=== PATIENT | male | born 1955 | race Caucasian/White ===

== ENCOUNTER 2017-09-05 12:27 | Inpatient (IN) | payer MEDICARE, MEDICAID ==
--- NOTE | 2017-09-05 12:35 | ED Physician Chart ---
ED Chief Complaint/HPI - Patient Information Date Seen:: 09/05/17 Time Seen:: 12:34 Chief Complaint:: ALOC, failure to thrive History of Present Illness:: 62 yo male was brought from SNF to ER for evaluation of altered mental status during past 3 days. He remained drowsy and lethargic. The patient had history of seizure disorder. Due to missing dose of Keppra, patient had 12 episodes of short lasting seizures during past 24 hours. The vagus nerve stimulator placed on the left chest of the patient has been effective stopping seizures. The patient also complained abdominal pain with decreased PO intake. Allergies:: Allergies Allergy/AdvReac Type Severity Reaction Status Date / Time divalproex sodium Allergy Verified 06/12/17 17:50 [From Depakote] fluoxetine Allergy Verified 06/12/17 13:01 magnesium hydroxide Allergy Verified 06/12/17 13:00 [From Milk of Magnesia] metoclopramide Allergy Verified 06/12/17 13:00 ondansetron Allergy Verified 06/12/17 13:01 ED Review of Systems - Review of Systems General/Constitutional: No fever, No chills Skin: No rash Head: No headache Eyes: No pain ENT: No nasal drainage Neck: Stiffness (Neck contracture towards left) Cardio Vascular: No chest pain Pulmonary: No cough GI: Pain Musculoskeletal: No bone or joint pain Psychiatric: Depression Neurological: Weakness ED Past Medical History - Past Medical History Past Medical History: Seizures, Thyroid disorder (hypothyroidism, gastritis, testicular hypofunction, glaucoma), Other (Severe intellectural disability, gastritis, dystonia anterocollis) Social History: Non Smoker, No Alcohol, No Drug Use Surgical History: other (VNS stimulator) Psychiatricy History: Depression, Other (Impulse control diorder) Family Medical History - Family Member Mother History Unknown: Yes Ethnicity: Non- ED Physical Exam - Physical Examination Other Gen/Cons comments:: lethargic Eyes: PERRL Skin: No ecchymosis ENMT: Nasal exam nl Other Neck comments:: Neck contracture towards left Respiratory: No Wheeze/Rhonchi/Rales Cardio Vascular: RRR, No murmur, gallop, rubs, NL S1 S2 GI: No organomegaly Other Extremities comments:: Stiffness of bilateral lower extremities Other Neuro/Psych comments:: Hard to wake up patient ED Labs/Radiology/EKG Results - Radiology Results Results: CT head: no acute intracranial pathology CT abdomen: fecal impaction ED Assessment - Assessment General Assessment: ALOC Seizures VNS device Abdominal pain Fecal impaction, patient had 2 large bowel movements with copious flatus in the ER UTI Assessment/Comments:: CBC, CMP, CXR, EKG, UA CT head CT abdomen/pelvis Keppra level Lamitrogen level Dilantin level NS 1L IV bolus Fleet enema x 1 Admit to med surg ED Septic Shock - . Is Septic Shock (SBP<90, OR Lactate>4 mmol\L) present?: No ED Reassessment (Disposition) - Reassessment Reassessment Condition:: Improved - Patient Disposition Discharge/Transfer:: Acute Care w/in this hosp Admitting Medical Physician:: Zack Rick ED Discharge Plan - Patient Disposition Admit/Discharge/Transfer: Acute Care w/in this hosp
[2017-09-05 13:33] LABS: ALB/GLOB RATIO 1.5 (1.0-1.8); ALBUMIN 3.9 gm/dL (4.2-5.5); ALKALINE PHOSPHATASE 95 U/L (34-104); ANION GAP 9.8 (7.0-16.0); BILIRUBIN,TOTAL 0.5 mg/dL (0.3-1.0); BUN - UREA NITROGEN 12 mg/dL (7-25); CALCIUM SERUM 9.4 mg/dL (8.6-10.3); CARBON DIOXIDE 23.8 mEq/L (21.0-31.0); CHLORIDE 105 mEq/L (98-107); CREATININE - SERUM 0.6 mg/dL (0.7-1.3); GFR AFRICAN-AMERICAN > 60.0 ml/min (>90); GFR NON AFRICAN-AMERICAN > 60.0 ml/min; GLUCOSE 87 mg/dL (70-105); POTASSIUM SERUM 3.6 mEq/L (3.5-5.1); SGOT 15 U/L (13-39); SGPT/ALT 15 U/L (7-52); SODIUM SERUM 135 mEq/L (136-145); TOTAL PROTEIN,SERUM 6.5 gm/dL (6.0-8.3)
[2017-09-05 13:34] LABS: % LYMPHOCYTES 15.1 % (20.0-50.0); % NEUTROPHILS 71.9 % (40.0-80.0); EOSINOPHILE ABSOLUTE 0.2 Th/cmm (0.1-0.4); HEMATOCRIT 41.8 % (41.0-60); HEMOGLOBIN 14.2 gm/dL (12-16); LYMPHOCYTE ABSOLUTE 1.8 Th/cmm (1.5-3.0); MEAN CELL VOLUME 96.4 fl (80-99); MEAN CORPUSCULAR HEMOGLOBIN 32.7 pg (26.0-30.0); MEAN CORPUSCULAR HGB CONC 33.9 pg (28.0-36.0); MEAN PLATELET VOLUME 7.1 fl; MONOCYTE ABSOLUTE 1.3 Th/cmm (0.3-1.0); NEUTROPHILE ABSOLUTE 8.3 Th/cmm (1.8-8.0); PLATELET COUNT 305 Th/cmm (150-400); RED BLOOD COUNT 4.34 Mil/cmm (4.30-5.70); WHITE BLOOD COUNT 11.6 Th/cmm (4.8-10.8)
--- NOTE | 2017-09-05 14:21 | Diagnostic Imaging Report ---
Portable chest x-ray HISTORY: Shortness of breath The exam is extremely limited as the patient is rotated in the left chest obscured by the patient's overlying head and neck. The overall heart size cannot be well evaluated. The right lung is clear. Old right rib fractures noted unchanged dating back to June 12, 2017. IMPRESSION: 1. Nondiagnostic exam of the left chest due to the factors noted above 2. Old right rib fractures
[2017-09-05 14:35] LABS: URINE MICROSCOPIC INDICATED? YES; URINE SOURCE RANDOM
[2017-09-05 14:36] LABS: URINE BILIRUBIN NEGATIVE (NEGATIVE); URINE BLOOD NEGATIVE (NEGATIVE); URINE GLUCOSE (UA) NEGATIVE (NEGATIVE); URINE KETONE NEGATIVE (NEGATIVE); URINE LEUKOCYTE ESTERASE TRACE (NEGATIVE); URINE NITRATE NEGATIVE (NEGATIVE); URINE PH 6.5 (4.6 - 8.0); URINE PROTEIN NEGATIVE (NEGATIVE); URINE UROBILINOGEN 0.2 E.U./dL (0.2 - 1.0)
[2017-09-05] MEDS ORDERED: Sodium Chloride 0.9% 1,000 ML IV ONE (14:38)
[2017-09-05] MEDS ORDERED: Levofloxacin 500mg/100mL 500 MG/100 ML BAG IV ONE (15:39)
[2017-09-05 15:41] LABS: URINE CLARITY CLEAR (CLEAR); URINE COLOR YELLOW
[2017-09-05 15:42] LABS: URINE BACTERIA FEW /hpf (NONE SEEN); URINE EPITHELIAL CELLS OCCASIONAL /lpf (FEW); URINE RBC 0-2 /hpf (0-5)
[2017-09-05] MEDS ORDERED: Fleet Enema 135 mL RC ONE (16:37)
[2017-09-05] MEDS ORDERED: Guaifenesin DM 10 ML UDC PO PRN (17:57)
[2017-09-05] MEDS ORDERED: LEVALBUTEROL HCL 1.25 MG IH PRN (17:57)
[2017-09-05] MEDS ORDERED: Fleet Enema 135 mL RC PRN (17:57)
[2017-09-05] MEDS ORDERED: LOPERAMIDE HCL 2 MG PO PRN (17:57)
[2017-09-05] MEDS ORDERED: OXYGEN INH PRN (18:22)
[2017-09-05] MEDS: Albuterol Nebulizer 2.5mg/3mL HHN SCH (19:00)
[2017-09-05] MEDS: Ipratropium Neb 0.5 mg/2.5 mL UD IH SCH (19:00)
--- NOTE | 2017-09-05 19:33 | History & Physical ---
ADMIT DATE: 09/05/2017 CHIEF COMPLAINT: Not eating, not taking medication, not doing too well per the nursing staff. HISTORY OF PRESENT ILLNESS: This is a 62-year-old male with history of mental retardation, developmentally delay, cerebral palsy, seizure, generalized contractures, bedridden with recent diagnosis of urinary tract infection with multi-drug resistant organism. The patient received 1 week worth of Cipro, then culture came back multi-drug resistant, and antibiotic was changed to IV Rocephin, but the patient's condition has not improved. PAST MEDICAL HISTORY: As mentioned in history of present illness. PAST SURGICAL HISTORY: Unable to obtain at this time. ALLERGIES: BUSPAR, DEPAKOTE, FLUOXETINE, MAGNESIUM, REGLAN, ZOFRAN. MEDICATIONS: The patient is on miconazole, multivitamin, oxygen, pantoprazole, petroleum jelly, Seroquel, rifaximin, simethicone, tamsulosin, alendronate, biotin, IV Rocephin, calcium, chlorhexidine, Lamictal, methotrexate, loratadine, bisacodyl, quetiapine, clonazepam, folic acid, guaifenesin, ibuprofen. FAMILY HISTORY: Noncontributory. SOCIAL HISTORY: The patient is in a halfway. The patient is requiring 24-hour care. REVIEW OF SYSTEMS: This is limited secondary to the patient's current mental state. We will try to obtain more detailed review of systems at a later date by talking to family members. There is an uncle, Bertrand Lam from [place], number is [phone]. Also try to get information from nursing staff, [facility], number [phone]. PHYSICAL EXAMINATION: VITAL SIGNS: Blood pressure 119/68, respirations 14, pulse 77, temperature 98.2. GENERAL: Elderly male, appears chronically ill. Positive general contracture, hyperextended. LUNGS: Clear breath sounds, few rhonchi. HEART: Regular rate and rhythm without appreciable murmurs. ABDOMEN: Soft, globular. EXTREMITIES: Positive excoriations. NEUROLOGIC: Limited. LABORATORY DATA: WBC 11.6, hemoglobin 14, platelets was 305. Sodium 135, potassium 3.6, BUN 12, creatinine 0.6, albumin 3.9. UA showed 10 wbc. Dilantin less than 2.5. ASSESSMENT AND PLAN: 1. Failure to thrive. 2. Urinary tract infection. 3. Dehydration. 4. Mental retardation. 5. Cerebral palsy. 6. Leukocytosis. 7. Hyponatremia. 8. Low albumin/mild protein calorie malnutrition. 9. Seizure. 10. Generalized contractures. We will continue the patient on aggressive IV hydration. We will refer the patient to Psychiatry to adjust the patient's psychotropic medication. Continue antiepileptic medications. We will review the patient's urine culture and sensitivity. We will monitor the patient's overall function. Continue with current care with followup consult and recommendations. [facility]# [id number]
[2017-09-05] MEDS ORDERED: LAMOTRIGINE 150 MG PO SCH (21:00)
[2017-09-05] MEDS: D5-0.9%NS 1,000 ML IV SCH (21:56)
[2017-09-05] MEDS: Pantoprazole 40 mg EC Tab PO SCH (21:57)
[2017-09-05] MEDS: Lactulose 10 Gm/15 mL 30mL UDC PO SCH (21:57)
[2017-09-05 23:59] VITALS: BP 151/82
[2017-09-06 06:44] LABS: % BASOPHILS 0.1 % (0.0-2.0); % EOSINOPHILS 5.4 % (0.0-5.0); % LYMPHOCYTES 20.2 % (20.0-50.0); % MONOCYTES 9.8 % (2.0-10.0); % NEUTROPHILS 64.5 % (40.0-80.0); EOSINOPHILE ABSOLUTE 0.3 Th/cmm (0.1-0.4); HEMATOCRIT 41.6 % (41.0-60); HEMOGLOBIN 13.9 gm/dL (12-16); LYMPHOCYTE ABSOLUTE 1.3 Th/cmm (1.5-3.0); MEAN CELL VOLUME 97.2 fl (80-99); MEAN CORPUSCULAR HEMOGLOBIN 32.3 pg (26.0-30.0); MEAN CORPUSCULAR HGB CONC 33.3 pg (28.0-36.0); MEAN PLATELET VOLUME 6.9 fl; MONOCYTE ABSOLUTE 0.6 Th/cmm (0.3-1.0); NEUTROPHILE ABSOLUTE 4.1 Th/cmm (1.8-8.0); PLATELET COUNT 280 Th/cmm (150-400); RED BLOOD COUNT 4.28 Mil/cmm (4.30-5.70); RED CELL DISTRIBUTION WIDTH 14.2 % (11.5-20.0)
[2017-09-06 06:52] LABS: WHITE BLOOD COUNT 6.3 Th/cmm (4.8-10.8)
[2017-09-06] MEDS: Ipratropium Neb 0.5 mg/2.5 mL UD IH SCH ×4 (07:00→19:07)
[2017-09-06] MEDS: Albuterol Nebulizer 2.5mg/3mL HHN SCH ×4 (07:00→19:07)
[2017-09-06 07:11] LABS: ANION GAP 7.6 (7.0-16.0); BUN - UREA NITROGEN 8 mg/dL (7-25); CARBON DIOXIDE 25.2 mEq/L (21.0-31.0); CHLORIDE 108 mEq/L (98-107); CREATININE - SERUM 0.6 mg/dL (0.7-1.3); GFR AFRICAN-AMERICAN > 60.0 ml/min (>90); GFR NON AFRICAN-AMERICAN > 60.0 ml/min; GLUCOSE 85 mg/dL (70-105); POTASSIUM SERUM 3.8 mEq/L (3.5-5.1); SODIUM SERUM 137 mEq/L (136-145)
[2017-09-06] MEDS ORDERED: Levothyroxine 0.125 Mg Tab PO SCH (07:30)
--- NOTE | 2017-09-06 08:23 | Diagnostic Imaging Report ---
CT scan abdomen and pelvis without intravenous contrast HISTORY: Pain Total DLP equals 899 CTDI equals 15.3. If axial sections were obtained from the xiphoid process down to the pubic symphysis. The exam is limited due to difficulty in patient positioning.. The exam demonstrates a distended stool-filled rectum and lower sigmoid colon associated with rather marked generalized colonic dilatation. Findings suggest changes of a fecal impaction. The liver appears somewhat diminished in size. No focal parenchymal lesions. The spleen appears normal. No focal abnormalities seen within the pancreas. The right kidney appears normal. The left kidney is atrophic associated with cystic change. No hydronephrosis. The remainder of the pelvis demonstrates preservation of normal fat planes. No abnormal soft tissue masses or abnormal fluid collections. Urinary bladder exhibits a distorted contour and is displaced into the left lower anterior pelvis. Severe degenerative changes noted throughout the spine along with multiple compression fractures. IMPRESSION: 1. Limited exam 2. Distended stool-filled rectum and lower sigmoid colon associated with marked colonic dilatation. Findings are consistent with changes of a fecal impaction. 3. Atrophic left kidney 4. Distorted contour of the urinary bladder that is displaced into the left lower anterior pelvis 5. Multiple spinal compression fractures
--- NOTE | 2017-09-06 08:24 | Diagnostic Imaging Report ---
CT scan of the brain without intravenous contrast HISTORY: Stroke, CVA Total DLP equals 1531 CTDI equals 63.1 Axial sections were obtained from the base of the skull the vertex. The exam is extremely limited due to difficulty in patient positioning and marked artifact related to metallic dental fillings. There appears to be generalized increase in overall ventricular system size. No obvious parenchymal abnormalities are seen. No obvious intracerebral hemorrhage. No mass effect or shift of midline structures. No obvious extra-axial masses or abnormal fluid collections. IMPRESSION: 1. Extremely limited exam 2. No obvious acute abnormalities 3. Findings consistent with cerebral atrophy and chronic changes
[2017-09-06] MEDS ORDERED: Ipratropium Neb 0.5 mg/2.5 mL UD HHN SCH (09:00)
[2017-09-06] MEDS ORDERED: Non-Formulary Item 1 EA (Lactobacillus Acidophilus [Acidophilus] 1 EACH) PO SCH (09:00)
[2017-09-06] MEDS ORDERED: CLOBAZAM 20 MG PO SCH (09:00)
[2017-09-06] MEDS ORDERED: FLUTICASONE PROPIONATE IH SCH (09:00)
[2017-09-06] MEDS ORDERED: Non-Formulary Item 1 EA (Lamotrigine [Lamotrigine] 200 MG) PO SCH (09:00)
[2017-09-06] MEDS ORDERED: MICONAZOLE NITRATE 2% TP SCH (09:00)
[2017-09-06] MEDS: Lactulose 10 Gm/15 mL 30mL UDC PO SCH ×3 (09:24→21:22)
[2017-09-06] MEDS: POLYETHYLENE GLYCOL 3350 17 GM PACK PO SCH (09:24)
[2017-09-06] MEDS ORDERED: Influenza Vaccine 0.5 mL Syr IM ONE (11:00)
[2017-09-06] MEDS ORDERED: Pneumococcal Vaccine 0.5 mL Vial IM ONE (11:00)
[2017-09-06] MEDS: D5-0.9%NS 1,000 ML IV SCH (11:24)
[2017-09-06] MEDS ORDERED: CLOBAZAM PO SCH (14:17)
--- NOTE | 2017-09-06 15:08 | Internal Medicine Prog Note ---
Internal Medicine Subjective - Subjective Patient seen and examined:: with staff, chart reviewed Patient is:: asleep, non-verbal, non-interactive, eyes closed, in bed, stares blankly Patient Complaints of:: congestion, constipation Per staff patient has:: no adverse event, poor appetite, poor oral intake, agitated, refusing care Internal Medicine Objective - Results Result Diagrams: 09/06/17 06:24 09/06/17 06:24 Recent Labs: Laboratory Last Values WBC 6.3 Th/cmm (4.8-10.8) D 09/06/17 06:24 RBC 4.28 Mil/cmm (4.30-5.70) L 09/06/17 06:24 Hgb 13.9 gm/dL (12-16) 09/06/17 06:24 Hct 41.6 % (41.0-60) 09/06/17 06:24 MCV 97.2 fl (80-99) 09/06/17 06:24 MCH 32.3 pg (26.0-30.0) H 09/06/17 06:24 MCHC Differential 33.3 pg (28.0-36.0) 09/06/17 06:24 RDW 14.2 % (11.5-20.0) 09/06/17 06:24 Plt Count 280 Th/cmm (150-400) 09/06/17 06:24 MPV 6.9 fl 09/06/17 06:24 Neutrophils % 64.5 % (40.0-80.0) 09/06/17 06:24 Lymphocytes % 20.2 % (20.0-50.0) 09/06/17 06:24 Monocytes % 9.8 % (2.0-10.0) 09/06/17 06:24 Eosinophils % 5.4 % (0.0-5.0) H 09/06/17 06:24 Basophils % 0.1 % (0.0-2.0) 09/06/17 06:24 Sodium 137 mEq/L (136-145) 09/06/17 06:24 Potassium 3.8 mEq/L (3.5-5.1) 09/06/17 06:24 Chloride 108 mEq/L (98-107) H 09/06/17 06:24 Carbon Dioxide 25.2 mEq/L (21.0-31.0) 09/06/17 06:24 Anion Gap 7.6 (7.0-16.0) 09/06/17 06:24 BUN 8 mg/dL (7-25) 09/06/17 06:24 Creatinine 0.6 mg/dL (0.7-1.3) L 09/06/17 06:24 Est GFR ( Amer) > 60.0 ml/min (>90) 09/06/17 06:24 Est GFR (Non-Af Amer) > 60.0 ml/min 09/06/17 06:24 BUN/Creatinine Ratio 13.3 09/06/17 06:24 Glucose 85 mg/dL (70-105) 09/06/17 06:24 POC Glucose 84 MG/DL (70 - 105) 09/05/17 22:34 Calcium 9.0 mg/dL (8.6-10.3) 09/06/17 06:24 Total Bilirubin 0.5 mg/dL (0.3-1.0) 09/05/17 13:05 AST 15 U/L (13-39) 09/05/17 13:05 ALT 15 U/L (7-52) 09/05/17 13:05 Alkaline Phosphatase 95 U/L (34-104) 09/05/17 13:05 Ammonia 60 umol/L (16-53) H 09/06/17 06:24 Troponin I < 0.01 ng/mL (0.01-0.05) L 09/05/17 13:05 B-Natriuretic Peptide 33.7 pg/mL (5.0-100.0) 09/05/17 13:05 Total Protein 6.5 gm/dL (6.0-8.3) 09/05/17 13:05 Albumin 3.9 gm/dL (4.2-5.5) L 09/05/17 13:05 Globulin 2.6 gm/dL 09/05/17 13:05 Albumin/Globulin Ratio 1.5 (1.0-1.8) 09/05/17 13:05 TSH 2.03 uIU/ml (0.34-5.60) 09/05/17 13:05 Urine Source RANDOM 09/05/17 12:36 Urine Color YELLOW 09/05/17 12:36 Urine Clarity CLEAR (CLEAR) 09/05/17 12:36 Urine pH 6.5 (4.6 - 8.0) 09/05/17 12:36 Ur Specific [place] 1.015 (1.005-1.030) 09/05/17 12:36 Urine Protein NEGATIVE mg/dL (NEGATIVE) 09/05/17 12:36 Urine Glucose (UA) NEGATIVE mg/dL (NEGATIVE) 09/05/17 12:36 Urine Ketones NEGATIVE mg/dL (NEGATIVE) 09/05/17 12:36 Urine Blood NEGATIVE (NEGATIVE) 09/05/17 12:36 Urine Nitrate NEGATIVE (NEGATIVE) 09/05/17 12:36 Urine Bilirubin NEGATIVE (NEGATIVE) 09/05/17 12:36 Urine Urobilinogen 0.2 E.U./dL (0.2 - 1.0) 09/05/17 12:36 Ur Leukocyte Esterase TRACE (NEGATIVE) H 09/05/17 12:36 Urine RBC 0-2 /hpf (0-5) H 09/05/17 12:36 Urine WBC 6-10 /hpf (0-5) 09/05/17 12:36 Ur Epithelial Cells OCCASIONAL /lpf (FEW) 09/05/17 12:36 Urine Bacteria FEW /hpf (NONE SEEN) 09/05/17 12:36 Phenytoin < 2.5 ug/ml (10.0-20.0) L 09/05/17 13:05 - Physical Exam Vitals and I&O: Vital Signs Temp 97.6 F 09/06/17 09:00 Pulse 63 09/06/17 10:47 Resp 18 09/06/17 10:47 BP 136/74 09/06/17 09:00 Pulse Ox 94 09/06/17 10:47 Intake & Output 09/05/17 09/06/17 09/06/17 18:59 06:59 18:59 Intake Total 100 1100 Balance 100 1100 Weight (lbs) 76.476 kg Intake: Intake, IV Amount 100 1100 D5-0.9%Ns 1,000 ml @ 80 1000 mls/hr IV .[id number] [facility] Rx #:[id number] Piperacillin Sodium/ 100 100 Tazobact 4.5 gm In Sodium Chloride 0.9% 100 ml @ 100 mls/hr IV Q8HR [facility] Rx #:[id number] Active Medications: Current Medications Acetaminophen (Tylenol) 650 mg PO Q6H PRN PRN Reason: PAIN OR FEVER >100 Albuterol Sulfate (Albuterol 2.5mg/3ml Neb Ud) 2.5 mg HHN QIDRT CHANDAN Stop: 11/04/17 18:59 Last Admin: 09/06/17 10:46 Dose: 2.5 mg Benztropine Mesylate (Cogentin) 1 mg PO BID CHANDAN Stop: 11/05/17 08:59 Last Admin: 09/06/17 11:46 Dose: Not Given Bisacodyl (Dulcolax 5 Mg Ec Tab) 5 mg PO DAILY [facility]AN Stop: 11/05/17 08:59 Last Admin: 09/06/17 09:22 Dose: Not Given Brimonidine Tartrate (Alphagan 0.2% Ophth Soln) 1 drop EACH EYE BID CH[facility]AN Stop: 11/05/17 08:59 Last Admin: 09/06/17 11:46 Dose: Not Given Escitalopram Oxalate (Lexapro) 10 mg PO DAILY [facility] PRN Reason: Protocol Stop: 11/05/17 08:59 Last Admin: 09/06/17 11:49 Dose: Not Given Finasteride (Proscar) 5 mg PO DAILY [facility] PRN Reason: Protocol Stop: 11/05/17 08:59 Last Admin: 09/06/17 11:45 Dose: Not Given Folic Acid (Folate) 1 mg PO DAILY [facility] Stop: 11/05/17 08:59 Last Admin: 09/06/17 11:48 Dose: Not Given Guaifenesin/Dextromethorphan (Robitussin Dm) 10 ml PO Q4HR PRN PRN Reason: Cough Stop: 11/04/17 17:56 Heparin Sodium (Porcine) (Heparin) 5,000 units SUBQ Q12HR [facility]AN Stop: 11/04/17 20:59 Last Admin: 09/06/17 09:25 Dose: Not Given Hydrocortisone (Hydrocortisone 1%) 1 appl TP BID [facility] Stop: 11/05/17 08:59 Last Admin: 09/06/17 09:25 Dose: Not Given Dextrose/Sodium Chloride (D5-0.9%Ns) 1,000 mls @ 80 mls/hr IV .[id number] [facility] Stop: 11/04/17 18:14 Last Admin: 09/06/17 11:24 Dose: 80 mls/hr Piperacillin Sod/Tazobactam (Sod 4.5 gm/ Sodium Chloride) 100 mls @ 100 mls/hr IV Q8HR [facility] Stop: 11/04/17 20:59 Last Admin: 09/06/17 12:00 Dose: 100 mls/hr Levetiracetam 1,000 mg/ Sodium (Chloride) 110 mls @ 400 mls/hr IV Q12H [facility] Stop: 11/05/17 10:29 Last Admin: 09/06/17 11:13 Dose: 400 mls/hr Ibuprofen (Motrin) 600 mg PO Q6H PRN PRN Reason: Pain Stop: 11/04/17 17:56 Ipratropium [place] (Atrovent Neb 0.5mg/2.5ml) 0.5 mg IH QIDRT [facility] Stop: 11/04/17 18:59 Last Admin: 09/06/17 10:46 Dose: 0.5 mg Lactulose (Cephulac) 20 gm PO TID [facility] Stop: 11/04/17 20:59 Last Admin: 09/06/17 14:11 Dose: 20 gm Lamotrigine (Lamictal) 200 mg PO BID [facility] Stop: 11/05/17 16:59 Lamotrigine (Lamictal) 150 mg PO HS [facility] Stop: 11/05/17 20:59 Latanoprost (Xalatan 0.005% Ophth Soln) 1 drop EACH EYE HS [facility] Stop: 11/04/17 20:59 Last Admin: 09/05/17 21:57 Dose: Not Given Levothyroxine Sodium (Synthroid) 0.125 mg PO QDAC [facility] Stop: 11/05/17 07:29 Last Admin: 09/06/17 06:46 Dose: Not Given Loperamide HCl (Imodium) 2 mg PO Q6H PRN PRN Reason: DIARRHEA Stop: 11/05/17 09:26 Lorazepam (Ativan) 2 mg IM Q12H PRN; Protocol PRN Reason: Seizure Stop: 11/04/17 17:56 Lorazepam (Ativan) 1 mg PO BID PRN; Protocol PRN Reason: Anxiety Stop: 11/04/17 17:56 Lorazepam (Ativan) 1 mg PO QPM [facility]AN PRN Reason: Protocol Stop: 11/05/17 16:59 Lorazepam (Ativan) 1 mg IV Q4H PRN; Protocol PRN Reason: Seizure Stop: 11/04/17 18:01 Miconazole Nitrate (Micatin 2%) 1 appl TP BID [facility] Stop: 11/05/17 16:59 Miscellaneous (Misc Oral Tab) 1 tab PO [facility] Stop: 11/04/17 20:59 Miscellaneous (Clobazam [Onfi]) 0 mg PO BID [facility] Stop: 11/05/17 08:59 Pantoprazole Sodium (Protonix) 40 mg PO HS [facility] Stop: 11/04/17 20:59 Last Admin: 09/05/17 21:57 Dose: Not Given Polyethylene Glycol (Miralax) 17 gm PO DAILY [facility] Stop: 11/05/17 08:59 Last Admin: 09/06/17 09:24 Dose: Not Given Quetiapine Fumarate (Seroquel) 25 mg PO BID [facility] PRN Reason: Protocol Stop: 11/05/17 08:59 Last Admin: 09/06/17 09:24 Dose: Not Given Sodium Phosphate (Fleet Enema) 135 ml RC PRN PRN PRN Reason: Constipation Stop: 11/04/17 17:56 Tamsulosin HCl (Flomax) 0.4 mg PO [facility] Stop: 11/04/17 20:59 Last Admin: 09/05/17 21:58 Dose: Not Given General: lethargic, demented HEENT: NC/AT, PERRLA, thinning hair Neck: Supple, No JVD Cardiovascular: RRR, Normal S1, Normal S2, without murmur Abdomen: soft, globular, positive bowel sound Extremities: excoriation Neurological: no change, disorganized, unable to follow command, bedbound Internal Medicine Assmt/Plan - Assessment Assessment: ASSESSMENT AND PLAN: 1. Failure to thrive. 2. Urinary tract infection. 3. Dehydration. 4. Mental retardation. 5. Cerebral palsy. 6. Leukocytosis. 7. Hyponatremia. 8. Low albumin/mild protein calorie malnutrition. 9. Seizure. 10. Generalized contractures. We will continue the patient on aggressive IV hydration. We will refer the patient to Psychiatry to adjust the patient's psychotropic medication. Continue antiepileptic medications. We will review the patient's urine culture and sensitivity. We will monitor the patient's overall function. Continue with current care with followup consult and recommendations. - Plan Plan: will refer pt to gi 2 chronic constipation ho of meg[place] cpm servando rn
[2017-09-06] MEDS: Miconazole Nitrate 2% Cream 30gm TP SCH (17:16)
[2017-09-06] MEDS: Pantoprazole 40 mg EC Tab PO SCH (21:22)
[2017-09-07] MEDS: D5-0.9%NS 1,000 ML IV SCH ×2 (02:47→18:14)
[2017-09-07] MEDS: Ipratropium Neb 0.5 mg/2.5 mL UD IH SCH ×3 (06:49→14:11)
[2017-09-07] MEDS: Albuterol Nebulizer 2.5mg/3mL HHN SCH ×4 (06:49→19:27)
[2017-09-07] MEDS: POLYETHYLENE GLYCOL 3350 17 GM PACK PO SCH (08:59)
[2017-09-07] MEDS: Lactulose 10 Gm/15 mL 30mL UDC PO SCH ×3 (08:59→21:53)
[2017-09-07] MEDS: Miconazole Nitrate 2% Cream 30gm TP SCH ×2 (08:59→18:13)
[2017-09-07] MEDS: ONFI 20 MG PO SCH ×2 (10:50→18:14)
--- NOTE | 2017-09-07 15:39 | Internal Medicine Prog Note ---
Internal Medicine Subjective - Subjective Patient seen and examined:: with staff, chart reviewed Patient is:: asleep, non-verbal, non-interactive, eyes closed, in bed, stares blankly Patient Complaints of:: congestion, constipation Per staff patient has:: no adverse event, poor appetite, poor oral intake, agitated, refusing care Internal Medicine Objective - Results Result Diagrams: 09/06/17 06:24 09/06/17 06:24 Recent Labs: Laboratory Last Values WBC 6.3 Th/cmm (4.8-10.8) D 09/06/17 06:24 RBC 4.28 Mil/cmm (4.30-5.70) L 09/06/17 06:24 Hgb 13.9 gm/dL (12-16) 09/06/17 06:24 Hct 41.6 % (41.0-60) 09/06/17 06:24 MCV 97.2 fl (80-99) 09/06/17 06:24 MCH 32.3 pg (26.0-30.0) H 09/06/17 06:24 MCHC Differential 33.3 pg (28.0-36.0) 09/06/17 06:24 RDW 14.2 % (11.5-20.0) 09/06/17 06:24 Plt Count 280 Th/cmm (150-400) 09/06/17 06:24 MPV 6.9 fl 09/06/17 06:24 Neutrophils % 64.5 % (40.0-80.0) 09/06/17 06:24 Lymphocytes % 20.2 % (20.0-50.0) 09/06/17 06:24 Monocytes % 9.8 % (2.0-10.0) 09/06/17 06:24 Eosinophils % 5.4 % (0.0-5.0) H 09/06/17 06:24 Basophils % 0.1 % (0.0-2.0) 09/06/17 06:24 Sodium 137 mEq/L (136-145) 09/06/17 06:24 Potassium 3.8 mEq/L (3.5-5.1) 09/06/17 06:24 Chloride 108 mEq/L (98-107) H 09/06/17 06:24 Carbon Dioxide 25.2 mEq/L (21.0-31.0) 09/06/17 06:24 Anion Gap 7.6 (7.0-16.0) 09/06/17 06:24 BUN 8 mg/dL (7-25) 09/06/17 06:24 Creatinine 0.6 mg/dL (0.7-1.3) L 09/06/17 06:24 Est GFR ( Amer) > 60.0 ml/min (>90) 09/06/17 06:24 Est GFR (Non-Af Amer) > 60.0 ml/min 09/06/17 06:24 BUN/Creatinine Ratio 13.3 09/06/17 06:24 Glucose 85 mg/dL (70-105) 09/06/17 06:24 POC Glucose 84 MG/DL (70 - 105) 09/05/17 22:34 Calcium 9.0 mg/dL (8.6-10.3) 09/06/17 06:24 Total Bilirubin 0.5 mg/dL (0.3-1.0) 09/05/17 13:05 AST 15 U/L (13-39) 09/05/17 13:05 ALT 15 U/L (7-52) 09/05/17 13:05 Alkaline Phosphatase 95 U/L (34-104) 09/05/17 13:05 Ammonia 60 umol/L (16-53) H 09/06/17 06:24 Troponin I < 0.01 ng/mL (0.01-0.05) L 09/05/17 13:05 B-Natriuretic Peptide 33.7 pg/mL (5.0-100.0) 09/05/17 13:05 Total Protein 6.5 gm/dL (6.0-8.3) 09/05/17 13:05 Albumin 3.9 gm/dL (4.2-5.5) L 09/05/17 13:05 Globulin 2.6 gm/dL 09/05/17 13:05 Albumin/Globulin Ratio 1.5 (1.0-1.8) 09/05/17 13:05 TSH 2.03 uIU/ml (0.34-5.60) 09/05/17 13:05 Urine Source RANDOM 09/05/17 12:36 Urine Color YELLOW 09/05/17 12:36 Urine Clarity CLEAR (CLEAR) 09/05/17 12:36 Urine pH 6.5 (4.6 - 8.0) 09/05/17 12:36 Ur Specific [place] 1.015 (1.005-1.030) 09/05/17 12:36 Urine Protein NEGATIVE mg/dL (NEGATIVE) 09/05/17 12:36 Urine Glucose (UA) NEGATIVE mg/dL (NEGATIVE) 09/05/17 12:36 Urine Ketones NEGATIVE mg/dL (NEGATIVE) 09/05/17 12:36 Urine Blood NEGATIVE (NEGATIVE) 09/05/17 12:36 Urine Nitrate NEGATIVE (NEGATIVE) 09/05/17 12:36 Urine Bilirubin NEGATIVE (NEGATIVE) 09/05/17 12:36 Urine Urobilinogen 0.2 E.U./dL (0.2 - 1.0) 09/05/17 12:36 Ur Leukocyte Esterase TRACE (NEGATIVE) H 09/05/17 12:36 Urine RBC 0-2 /hpf (0-5) H 09/05/17 12:36 Urine WBC 6-10 /hpf (0-5) 09/05/17 12:36 Ur Epithelial Cells OCCASIONAL /lpf (FEW) 09/05/17 12:36 Urine Bacteria FEW /hpf (NONE SEEN) 09/05/17 12:36 Phenytoin < 2.5 ug/ml (10.0-20.0) L 09/05/17 13:05 - Physical Exam Vitals and I&O: Vital Signs Temp 97.0 F 09/07/17 12:00 Pulse 62 09/07/17 14:12 Resp 16 09/07/17 14:12 BP 120/69 09/07/17 12:00 Pulse Ox 95 09/07/17 14:12 Intake & Output 09/06/17 09/07/17 09/07/17 18:59 06:59 18:59 Intake Total 1100 1520 Balance 1100 1520 Weight (lbs) 77.02 kg Intake: Intake, IV Amount 1100 1520 D5-0.9%Ns 1,000 ml @ 80 1000 1000 mls/hr IV .[id number] [facility] Rx #:[id number] Levetiracetam 1,000 mg In 220 Sodium Chloride 0.9% 100 ml @ 400 mls/hr IV Q12H [facility] Rx#:[id number] Piperacillin Sodium/ 100 300 Tazobact 4.5 gm In Sodium Chloride 0.9% 100 ml @ 100 mls/hr IV Q8HR [facility] Rx #:[id number] Other: # Voids 3 # Bowel Movements 0 Stool Characteristics Soft Formed Brown Active Medications: Current Medications Acetaminophen (Tylenol) 650 mg PO Q6H PRN PRN Reason: PAIN OR FEVER >100 Albuterol Sulfate (Albuterol 2.5mg/3ml Neb Ud) 2.5 mg HHN QIDRT [facility] Stop: 11/04/17 18:59 Last Admin: 09/07/17 14:11 Dose: 2.5 mg Benztropine Mesylate (Cogentin) 1 mg PO BID [facility] Stop: 11/05/17 08:59 Last Admin: 09/07/17 08:46 Dose: 1 mg Bisacodyl (Dulcolax 5 Mg Ec Tab) 5 mg PO DAILY [facility] Stop: 11/05/17 08:59 Last Admin: 09/07/17 08:48 Dose: 5 mg Brimonidine Tartrate (Alphagan 0.2% Oph Soln) 1 drop EACH EYE BID [facility] Stop: 11/05/17 08:59 Last Admin: 09/07/17 08:49 Dose: 1 drop Escitalopram Oxalate (Lexapro) 10 mg PO DAILY [facility] PRN Reason: Protocol Stop: 11/05/17 08:59 Last Admin: 09/07/17 08:47 Dose: 10 mg Finasteride (Proscar) 5 mg PO DAILY [facility] PRN Reason: Protocol Stop: 11/05/17 08:59 Last Admin: 09/07/17 08:48 Dose: 5 mg Folic Acid (Folate) 1 mg PO DAILY [facility] Stop: 11/05/17 08:59 Last Admin: 09/07/17 08:46 Dose: 1 mg Guaifenesin/Dextromethorphan (Robitussin Dm) 10 ml PO Q4HR PRN PRN Reason: Cough Stop: 11/04/17 17:56 Heparin Sodium (Porcine) (Heparin) 5,000 units SUBQ Q12HR [facility] Stop: 11/04/17 20:59 Last Admin: 09/07/17 08:48 Dose: 5,000 units Hydrocortisone (Hydrocortisone 1%) 1 appl TP BID [facility] Stop: 11/05/17 08:59 Last Admin: 09/07/17 08:58 Dose: 1 appl Dextrose/Sodium Chloride (D5-0.9%Ns) 1,000 mls @ 80 mls/hr IV .[id number] [facility] Stop: 11/04/17 18:14 Last Admin: 09/07/17 02:47 Dose: 80 mls/hr Piperacillin Sod/Tazobactam (Sod 4.5 gm/ Sodium Chloride) 100 mls @ 100 mls/hr IV Q8HR [facility] Stop: 11/04/17 20:59 Last Admin: 09/07/17 13:25 Dose: 100 mls/hr Levetiracetam 1,000 mg/ Sodium (Chloride) 110 mls @ 400 mls/hr IV Q12H [facility] Stop: 11/05/17 10:29 Last Admin: 09/07/17 10:52 Dose: 400 mls/hr Ibuprofen (Motrin) 600 mg PO Q6H PRN PRN Reason: Pain Stop: 11/04/17 17:56 Ipratropium [place] (Atrovent Neb 0.5mg/2.5ml) 0.5 mg IH QIDRT [facility] Stop: 11/04/17 18:59 Last Admin: 09/07/17 14:11 Dose: 0.5 mg Lactulose (Cephulac) 20 gm PO TID [facility] Stop: 11/04/17 20:59 Last Admin: 09/07/17 13:24 Dose: 20 gm Lamotrigine (Lamictal) 200 mg PO BID [facility] Stop: 11/05/17 16:59 Last Admin: 09/07/17 08:47 Dose: 200 mg Lamotrigine (Lamictal) 150 mg PO HS [facility] Stop: 11/05/17 20:59 Last Admin: 09/06/17 21:22 Dose: Not Given Latanoprost (Xalatan 0.005% Ophth Soln) 1 drop EACH EYE HS [facility] Stop: 11/04/17 20:59 Last Admin: 09/06/17 21:22 Dose: Not Given Levothyroxine Sodium 0.1 mg/ (Levothyroxine Sodium 0.025 mg) 0.125 mg PO QDAC [facility] Stop: 11/06/17 08:59 Last Admin: 09/07/17 10:52 Dose: 0.125 mg Loperamide HCl (Imodium) 2 mg PO Q6H PRN PRN Reason: DIARRHEA Stop: 11/05/17 09:26 Lorazepam (Ativan) 2 mg IM Q12H PRN; Protocol PRN Reason: Seizure Stop: 11/04/17 17:56 Lorazepam (Ativan) 1 mg PO BID PRN; Protocol PRN Reason: Anxiety Stop: 11/04/17 17:56 Lorazepam (Ativan) 1 mg PO QPM [facility] PRN Reason: Protocol Stop: 11/05/17 16:59 Last Admin: 09/06/17 17:16 Dose: Not Given Lorazepam (Ativan) 1 mg IV Q4H PRN; Protocol PRN Reason: Seizure Stop: 11/04/17 18:01 Miconazole Nitrate (Micatin 2%) 1 appl TP BID [facility] Stop: 11/05/17 16:59 Last Admin: 09/07/17 08:59 Dose: 1 appl Pantoprazole Sodium (Protonix) 40 mg PO HS [facility] Stop: 11/04/17 20:59 Last Admin: 09/06/17 21:22 Dose: Not Given Aptiom 600mg Tab 1 PO HS [facility] Stop: 11/06/17 08:44 Onfi 20mg Tab 1 PO BID [facility] Stop: 11/06/17 08:44 Last Admin: 09/07/17 10:50 Dose: 1 Polyethylene Glycol (Miralax) 17 gm PO DAILY [facility] Stop: 11/05/17 08:59 Last Admin: 09/07/17 08:59 Dose: 17 gm Quetiapine Fumarate (Seroquel) 25 mg PO BID [facility] PRN Reason: Protocol Stop: 11/05/17 08:59 Last Admin: 09/07/17 08:48 Dose: 25 mg Sodium Phosphate (Fleet Enema) 135 ml RC PRN PRN PRN Reason: Constipation Stop: 11/04/17 17:56 Tamsulosin HCl (Flomax) 0.4 mg PO HS [facility] Stop: 11/04/17 20:59 Last Admin: 09/06/17 21:23 Dose: Not Given General: lethargic, demented HEENT: NC/AT, PERRLA, thinning hair Neck: Supple, No JVD Cardiovascular: RRR, Normal S1, Normal S2, without murmur Abdomen: soft, globular, positive bowel sound Extremities: excoriation Neurological: no change, disorganized, unable to follow command, bedbound Internal Medicine Assmt/Plan - Assessment Assessment: ASSESSMENT AND PLAN: 1. Failure to thrive. 2. Urinary tract infection. 3. Dehydration. 4. Mental retardation. 5. Cerebral palsy. 6. Leukocytosis. 7. Hyponatremia. 8. Low albumin/mild protein calorie malnutrition. 9. Seizure. 10. Generalized contractures. We will continue the patient on aggressive IV hydration. We will refer the patient to Psychiatry to adjust the patient's psychotropic medication. Continue antiepileptic medications. We will review the patient's urine culture and sensitivity. We will monitor the patient's overall function. Continue with current care with followup consult and recommendations. - Plan Plan: will refer pt to gi 2 chronic constipation ho of [facility] cpm servando crawford
[2017-09-07] MEDS: Pantoprazole 40 mg EC Tab PO SCH (21:53)
[2017-09-07] MEDS: APTIOM 600 MG PO SCH (21:54)
--- NOTE | 2017-09-08 02:13 | Consultation ---
DATE OF CONSULTATION: 09/07/2017 INPATIENT GASTROINTESTINAL CONSULTATION REFERRING PHYSICIAN: Dr. Rick. REASON FOR CONSULTATION: Fecal impaction. HISTORY OF PRESENT ILLNESS: This is a 62-year-old male with mental retardation and seizure disorder who was admitted to the hospital with fecal impaction based on CT imaging. The patient according to the records may have had a colonoscopy done that showed some stool. The patient again is a poor historian. PAST MEDICAL HISTORY: Mental retardation, seizure disorder, and fecal impaction. PAST SURGICAL HISTORY: None to add recently. FAMILY HISTORY: Noncontributory. SOCIAL HISTORY: Denies tobacco, alcohol, or IV drug usage. ALLERGIES: To buspirone, divalproex, fluoxetine, and magnesium hydroxide. CURRENT MEDICATIONS: Tylenol, Cogentin, Dulcolax, Lexapro, Proscar, folic acid, Robitussin, heparin, Motrin, Atrovent, lactulose, Lamictal, Synthroid, Imodium, Ativan, Protonix, Zosyn, MiraLax, Seroquel, Fleet enema, and Flomax. REVIEW OF SYSTEMS: Unobtainable. PHYSICAL EXAMINATION: VITAL SIGNS: Temperature 96.9, breathing 18, pulse of 61, blood pressure is 132/93, and satting 94%. GENERAL: In no apparent distress. EYES: Anicteric. Normal conjunctivae. HEENT: Normocephalic and atraumatic. Moist mucous membranes. NECK: Soft and supple. CHEST: Clear. No effort. CARDIOVASCULAR: Regular rate and rhythm. ABDOMEN: Soft, distended, and nontender. SKIN: Warm and dry. EXTREMITIES: Reveal no cyanosis. PSYCHOLOGICAL: Awake. LABORATORY DATA: Show white count 6.3, hemoglobin 13.9, and platelets of 280. Total bilirubin 0.5, AST 15, ALT 15, and alkaline phosphatase 95. IMPRESSION: A 62-year-old male with fecal impaction. Cause could be multifactorial including medication. The patient apparently has had a colonoscopy in the past, but we can try to get records. Barium enema may also be needed to clear the rest of the colon to make sure that there is no obstructive lesion. The patient could also be given additional laxatives. PLAN: 1. Get records of colonoscopy. 2. Consider barium enema. 3. Continue lactulose. 4. Consider adding Amitiza for possible chronic idiopathic constipation. Thank you for allowing me to participate. Please call me if any questions. JOB# [id number]
[2017-09-08 06:23] LABS: % BASOPHILS 0.6 % (0.0-2.0); % LYMPHOCYTES 19.7 % (20.0-50.0); % MONOCYTES 13.3 % (2.0-10.0); % NEUTROPHILS 61.4 % (40.0-80.0); EOSINOPHILE ABSOLUTE 0.4 Th/cmm (0.1-0.4); HEMATOCRIT 41.5 % (41.0-60); HEMOGLOBIN 13.6 gm/dL (12-16); LYMPHOCYTE ABSOLUTE 1.5 Th/cmm (1.5-3.0); MEAN CELL VOLUME 97.9 fl (80-99); MEAN CORPUSCULAR HEMOGLOBIN 32.1 pg (26.0-30.0); MEAN CORPUSCULAR HGB CONC 32.7 pg (28.0-36.0); MEAN PLATELET VOLUME 7.2 fl; NEUTROPHILE ABSOLUTE 4.7 Th/cmm (1.8-8.0); PLATELET COUNT 280 Th/cmm (150-400); RED BLOOD COUNT 4.24 Mil/cmm (4.30-5.70); RED CELL DISTRIBUTION WIDTH 14.2 % (11.5-20.0)
[2017-09-08 06:28] LABS: WHITE BLOOD COUNT 7.6 Th/cmm (4.8-10.8)
[2017-09-08 07:08] LABS: ANION GAP 8.7 (7.0-16.0); BUN - UREA NITROGEN 6 mg/dL (7-25); CALCIUM SERUM 9.1 mg/dL (8.6-10.3); CARBON DIOXIDE 24.2 mEq/L (21.0-31.0); CHLORIDE 111 mEq/L (98-107); CHOLESTEROL 142 mg/dL (<200); CREATININE - SERUM 0.6 mg/dL (0.7-1.3); GFR AFRICAN-AMERICAN > 60.0 ml/min (>90); GFR NON AFRICAN-AMERICAN > 60.0 ml/min; GLUCOSE 91 mg/dL (70-105); HDL -HIGH DENSITY LIPOPROTEIN 42 mg/dL (23-92); LIPASE 70 U/L (11-82); POTASSIUM SERUM 3.9 mEq/L (3.5-5.1); SODIUM SERUM 140 mEq/L (136-145); TRIGLYCERIDES 129 mg/dL (<150)
[2017-09-08] MEDS: Ipratropium Neb 0.5 mg/2.5 mL UD IH SCH ×4 (07:47→19:40)
[2017-09-08] MEDS: Albuterol Nebulizer 2.5mg/3mL HHN SCH ×4 (07:47→19:40)
--- NOTE | 2017-09-08 07:52 | GI Progress Note ---
Subjective - Review of Systems Subjective: NO EVENTS Objective - Results Result Diagrams: 09/08/17 05:45 09/08/17 05:45 Recent Labs: Laboratory Last Values WBC 7.6 Th/cmm (4.8-10.8) D 09/08/17 05:45 RBC 4.24 Mil/cmm (4.30-5.70) L 09/08/17 05:45 Hgb 13.6 gm/dL (12-16) 09/08/17 05:45 Hct 41.5 % (41.0-60) 09/08/17 05:45 MCV 97.9 fl (80-99) 09/08/17 05:45 MCH 32.1 pg (26.0-30.0) H 09/08/17 05:45 MCHC Differential 32.7 pg (28.0-36.0) 09/08/17 05:45 RDW 14.2 % (11.5-20.0) 09/08/17 05:45 Plt Count 280 Th/cmm (150-400) 09/08/17 05:45 MPV 7.2 fl 09/08/17 05:45 Neutrophils % 61.4 % (40.0-80.0) 09/08/17 05:45 Lymphocytes % 19.7 % (20.0-50.0) L 09/08/17 05:45 Monocytes % 13.3 % (2.0-10.0) H 09/08/17 05:45 Eosinophils % 5.0 % (0.0-5.0) 09/08/17 05:45 Basophils % 0.6 % (0.0-2.0) 09/08/17 05:45 Sodium 140 mEq/L (136-145) 09/08/17 05:45 Potassium 3.9 mEq/L (3.5-5.1) 09/08/17 05:45 Chloride 111 mEq/L (98-107) H 09/08/17 05:45 Carbon Dioxide 24.2 mEq/L (21.0-31.0) 09/08/17 05:45 Anion Gap 8.7 (7.0-16.0) 09/08/17 05:45 BUN 6 mg/dL (7-25) L 09/08/17 05:45 Creatinine 0.6 mg/dL (0.7-1.3) L 09/08/17 05:45 Est GFR ( Amer) > 60.0 ml/min (>90) 09/08/17 05:45 Est GFR (Non-Af Amer) > 60.0 ml/min 09/08/17 05:45 BUN/Creatinine Ratio 10.0 09/08/17 05:45 Glucose 91 mg/dL (70-105) 09/08/17 05:45 POC Glucose 84 MG/DL (70 - 105) 09/05/17 22:34 Calcium 9.1 mg/dL (8.6-10.3) 09/08/17 05:45 Total Bilirubin 0.5 mg/dL (0.3-1.0) 09/05/17 13:05 AST 15 U/L (13-39) 09/05/17 13:05 ALT 15 U/L (7-52) 09/05/17 13:05 Alkaline Phosphatase 95 U/L (34-104) 09/05/17 13:05 Ammonia 60 umol/L (16-53) H 09/06/17 06:24 Troponin I < 0.01 ng/mL (0.01-0.05) L 09/05/17 13:05 B-Natriuretic Peptide 161.0 pg/mL (5.0-100.0) H 09/08/17 05:45 Total Protein 6.5 gm/dL (6.0-8.3) 09/05/17 13:05 Albumin 3.9 gm/dL (4.2-5.5) L 09/05/17 13:05 Globulin 2.6 gm/dL 09/05/17 13:05 Albumin/Globulin Ratio 1.5 (1.0-1.8) 09/05/17 13:05 Triglycerides 129 mg/dL (<150) 09/08/17 05:45 Cholesterol 142 mg/dL (<200) 09/08/17 05:45 LDL Cholesterol Direct 79 mg/dL (75-193) 09/08/17 05:45 HDL Cholesterol 42 mg/dL (23-92) 09/08/17 05:45 Lipase 70 U/L (11-82) 09/08/17 05:45 TSH 2.03 uIU/ml (0.34-5.60) 09/05/17 13:05 Urine Source RANDOM 09/05/17 12:36 Urine Color YELLOW 09/05/17 12:36 Urine Clarity CLEAR (CLEAR) 09/05/17 12:36 Urine pH 6.5 (4.6 - 8.0) 09/05/17 12:36 Ur Specific [place] 1.015 (1.005-1.030) 09/05/17 12:36 Urine Protein NEGATIVE mg/dL (NEGATIVE) 09/05/17 12:36 Urine Glucose (UA) NEGATIVE mg/dL (NEGATIVE) 09/05/17 12:36 Urine Ketones NEGATIVE mg/dL (NEGATIVE) 09/05/17 12:36 Urine Blood NEGATIVE (NEGATIVE) 09/05/17 12:36 Urine Nitrate NEGATIVE (NEGATIVE) 09/05/17 12:36 Urine Bilirubin NEGATIVE (NEGATIVE) 09/05/17 12:36 Urine Urobilinogen 0.2 E.U./dL (0.2 - 1.0) 09/05/17 12:36 Ur Leukocyte Esterase TRACE (NEGATIVE) H 09/05/17 12:36 Urine RBC 0-2 /hpf (0-5) H 09/05/17 12:36 Urine WBC 6-10 /hpf (0-5) 09/05/17 12:36 Ur Epithelial Cells OCCASIONAL /lpf (FEW) 09/05/17 12:36 Urine Bacteria FEW /hpf (NONE SEEN) 09/05/17 12:36 Phenytoin < 2.5 ug/ml (10.0-20.0) L 09/05/17 13:05 - Physical Exam Vitals and I&O: Vital Signs Temp 96.3 F 09/08/17 07:44 Pulse 69 09/08/17 07:44 Resp 17 09/08/17 07:44 BP 187/93 09/08/17 07:44 Pulse Ox 95 09/08/17 07:44 Intake & Output 09/07/17 09/08/17 09/08/17 18:59 06:59 18:59 Intake Total 1210 750 Balance 1210 750 Weight (lbs) 80.014 kg Intake: Intake, IV Amount 1210 100 D5-0.9%Ns 1,000 ml @ 80 1000 mls/hr IV .[id number] [facility] Rx #:[id number] Levetiracetam 1,000 mg In 110 Sodium Chloride 0.9% 100 ml @ 400 mls/hr IV Q12H [facility] Rx#:[id number] Piperacillin Sodium/ 100 100 Tazobact 4.5 gm In Sodium Chloride 0.9% 100 ml @ 100 mls/hr IV Q8HR [facility] Rx #:[id number] Oral 650 Other: # Voids 2 # Bowel Movements 1 Stool Characteristics Soft Soft Formed Formed Brown Brown Active Medications: Current Medications Acetaminophen (Tylenol) 650 mg PO Q6H PRN PRN Reason: PAIN OR FEVER >100 Albuterol Sulfate (Albuterol 2.5mg/3ml Neb Ud) 2.5 mg HHN QIDRT [facility] Stop: 11/04/17 18:59 Last Admin: 09/08/17 07:47 Dose: 2.5 mg Benztropine Mesylate (Cogentin) 1 mg PO BID [facility] Stop: 11/05/17 08:59 Last Admin: 09/07/17 18:12 Dose: 1 mg Bisacodyl (Dulcolax 5 Mg Ec Tab) 5 mg PO DAILY [facility] Stop: 11/05/17 08:59 Last Admin: 09/07/17 08:48 Dose: 5 mg Brimonidine Tartrate (Alphagan 0.2% Ophth Soln) 1 drop EACH EYE BID [facility] Stop: 11/05/17 08:59 Last Admin: 09/07/17 18:13 Dose: 1 drop Escitalopram Oxalate (Lexapro) 10 mg PO DAILY [facility] PRN Reason: Protocol Stop: 11/05/17 08:59 Last Admin: 09/07/17 08:47 Dose: 10 mg Finasteride (Proscar) 5 mg PO DAILY [facility] PRN Reason: Protocol Stop: 11/05/17 08:59 Last Admin: 09/07/17 08:48 Dose: 5 mg Folic Acid (Folate) 1 mg PO DAILY [facility] Stop: 11/05/17 08:59 Last Admin: 09/07/17 08:46 Dose: 1 mg Guaifenesin/Dextromethorphan (Robitussin Dm) 10 ml PO Q4HR PRN PRN Reason: Cough Stop: 11/04/17 17:56 Heparin Sodium (Porcine) (Heparin) 5,000 units SUBQ Q12HR [facility] Stop: 11/04/17 20:59 Last Admin: 09/07/17 21:53 Dose: 5,000 units Hydrocortisone (Hydrocortisone 1%) 1 appl TP BID [facility] Stop: 11/05/17 08:59 Last Admin: 09/07/17 18:13 Dose: 1 appl Dextrose/Sodium Chloride (D5-0.9%Ns) 1,000 mls @ 80 mls/hr IV .[id number] [facility] Stop: 11/04/17 18:14 Last Admin: 09/07/17 18:14 Dose: 80 mls/hr Piperacillin Sod/Tazobactam (Sod 4.5 gm/ Sodium Chloride) 100 mls @ 100 mls/hr IV Q8HR [facility] Stop: 11/04/17 20:59 Last Admin: 09/08/17 05:55 Dose: 100 mls/hr Levetiracetam 1,000 mg/ Sodium (Chloride) 110 mls @ 400 mls/hr IV Q12H [facility] Stop: 11/05/17 10:29 Last Admin: 09/07/17 21:52 Dose: 400 mls/hr Ibuprofen (Motrin) 600 mg PO Q6H PRN PRN Reason: Pain Stop: 11/04/17 17:56 Ipratropium [place] (Atrovent Neb 0.5mg/2.5ml) 0.5 mg IH QIDRT [facility] Stop: 11/04/17 18:59 Last Admin: 09/08/17 07:47 Dose: 0.5 mg Lactulose (Cephulac) 20 gm PO TID [facility] Stop: 11/04/17 20:59 Last Admin: 09/07/17 21:53 Dose: 20 gm Lamotrigine (Lamictal) 200 mg PO BID [facility] Stop: 11/05/17 16:59 Last Admin: 09/07/17 18:12 Dose: 200 mg Lamotrigine (Lamictal) 150 mg PO HS [facility] Stop: 11/05/17 20:59 Last Admin: 09/07/17 21:53 Dose: 150 mg Latanoprost (Xalatan 0.005% Ophth Soln) 1 drop EACH EYE HS [facility] Stop: 11/04/17 20:59 Last Admin: 09/07/17 21:53 Dose: 1 drop Levothyroxine Sodium 0.1 mg/ (Levothyroxine Sodium 0.025 mg) 0.125 mg PO QDAC [facility] Stop: 11/06/17 08:59 Last Admin: 09/08/17 06:32 Dose: Not Given Loperamide HCl (Imodium) 2 mg PO Q6H PRN PRN Reason: DIARRHEA Stop: 11/05/17 09:26 Lorazepam (Ativan) 2 mg IM Q12H PRN; Protocol PRN Reason: Seizure Stop: 11/04/17 17:56 Lorazepam (Ativan) 1 mg PO BID PRN; Protocol PRN Reason: Anxiety Stop: 11/04/17 17:56 Lorazepam (Ativan) 1 mg PO QPM [facility] PRN Reason: Protocol Stop: 11/05/17 16:59 Last Admin: 09/07/17 18:13 Dose: Not Given Lorazepam (Ativan) 1 mg IV Q4H PRN; Protocol PRN Reason: Seizure Stop: 11/04/17 18:01 Miconazole Nitrate (Micatin 2%) 1 appl TP BID [facility] Stop: 11/05/17 16:59 Last Admin: 09/07/17 18:13 Dose: 1 appl Pantoprazole Sodium (Protonix) 40 mg PO HS [facility] Stop: 11/04/17 20:59 Last Admin: 09/07/17 21:53 Dose: 40 mg Aptiom 600mg Tab 1 PO HS [facility] Stop: 11/06/17 08:44 Last Admin: 09/07/17 21:54 Dose: 1 Onfi 20mg Tab 1 PO BID [facility] Stop: 11/06/17 08:44 Last Admin: 09/07/17 18:14 Dose: 1 Polyethylene Glycol (Miralax) 17 gm PO DAILY [facility] Stop: 11/05/17 08:59 Last Admin: 09/07/17 08:59 Dose: 17 gm Quetiapine Fumarate (Seroquel) 25 mg PO BID [facility] PRN Reason: Protocol Stop: 11/05/17 08:59 Last Admin: 09/07/17 18:12 Dose: 25 mg Sodium Phosphate (Fleet Enema) 135 ml RC PRN PRN PRN Reason: Constipation Stop: 11/04/17 17:56 Tamsulosin HCl (Flomax) 0.4 mg PO HS [facility] Stop: 11/04/17 20:59 Last Admin: 09/07/17 21:53 Dose: 0.4 mg Assessment/Plan - Problem List Patient Problems: All Active Problems ABDOMINAL PAIN WITH POOR ORAL INTAKE (Acute) - Assessment Assessment: 62 YO MALE WITH FECAL IMPACTION PRIOR COLO 1.AWAIT COLO RECORDS 2.CONT MIRALAX, DULCOLAX, LACTULOSE, FLEET ENEMA 3.AWAIT AMITIZA 4.CONSIDER BARIUM ENEMA
[2017-09-08] MEDS: ONFI 20 MG PO SCH ×2 (09:39→16:25)
[2017-09-08] MEDS: Miconazole Nitrate 2% Cream 30gm TP SCH ×2 (09:40→16:26)
[2017-09-08] MEDS: POLYETHYLENE GLYCOL 3350 17 GM PACK PO SCH (09:40)
[2017-09-08] MEDS: Lactulose 10 Gm/15 mL 30mL UDC PO SCH ×3 (09:41→22:28)
--- NOTE | 2017-09-08 13:58 | Diagnostic Imaging Report ---
CHEST X-RAY: AP view/is INDICATION: Aspiration COMPARISON: 09/05/2017 FINDINGS: Exam is severely limited the left hemithorax cannot be assessed due to patient's head overlying this region. Increased interstitial right lung markings are noted. Diffuse gaseous filled loops of bowel are again noted. IMPRESSION: Severely limited, essentially nondiagnostic exam of the left lung secondary to patient positioning. Increased right lung interstitial lung markings also noted, nonspecific. Gaseous distended loops of bowel as seen on prior exam, correlate clinically. Consider further assessment with CT chest examination.
--- NOTE | 2017-09-08 15:13 | Internal Medicine Prog Note ---
Internal Medicine Subjective - Subjective Patient seen and examined:: with staff, chart reviewed Patient is:: asleep, non-verbal, non-interactive, eyes closed, in bed, stares blankly Patient Complaints of:: congestion, constipation Per staff patient has:: no adverse event, poor appetite, poor oral intake, agitated, refusing care Internal Medicine Objective - Results Result Diagrams: 09/08/17 05:45 09/08/17 05:45 Recent Labs: Laboratory Last Values WBC 7.6 Th/cmm (4.8-10.8) D 09/08/17 05:45 RBC 4.24 Mil/cmm (4.30-5.70) L 09/08/17 05:45 Hgb 13.6 gm/dL (12-16) 09/08/17 05:45 Hct 41.5 % (41.0-60) 09/08/17 05:45 MCV 97.9 fl (80-99) 09/08/17 05:45 MCH 32.1 pg (26.0-30.0) H 09/08/17 05:45 MCHC Differential 32.7 pg (28.0-36.0) 09/08/17 05:45 RDW 14.2 % (11.5-20.0) 09/08/17 05:45 Plt Count 280 Th/cmm (150-400) 09/08/17 05:45 MPV 7.2 fl 09/08/17 05:45 Neutrophils % 61.4 % (40.0-80.0) 09/08/17 05:45 Lymphocytes % 19.7 % (20.0-50.0) L 09/08/17 05:45 Monocytes % 13.3 % (2.0-10.0) H 09/08/17 05:45 Eosinophils % 5.0 % (0.0-5.0) 09/08/17 05:45 Basophils % 0.6 % (0.0-2.0) 09/08/17 05:45 Sodium 140 mEq/L (136-145) 09/08/17 05:45 Potassium 3.9 mEq/L (3.5-5.1) 09/08/17 05:45 Chloride 111 mEq/L (98-107) H 09/08/17 05:45 Carbon Dioxide 24.2 mEq/L (21.0-31.0) 09/08/17 05:45 Anion Gap 8.7 (7.0-16.0) 09/08/17 05:45 BUN 6 mg/dL (7-25) L 09/08/17 05:45 Creatinine 0.6 mg/dL (0.7-1.3) L 09/08/17 05:45 Est GFR ( Amer) > 60.0 ml/min (>90) 09/08/17 05:45 Est GFR (Non-Af Amer) > 60.0 ml/min 09/08/17 05:45 BUN/Creatinine Ratio 10.0 09/08/17 05:45 Glucose 91 mg/dL (70-105) 09/08/17 05:45 POC Glucose 84 MG/DL (70 - 105) 09/05/17 22:34 Calcium 9.1 mg/dL (8.6-10.3) 09/08/17 05:45 Total Bilirubin 0.5 mg/dL (0.3-1.0) 09/05/17 13:05 AST 15 U/L (13-39) 09/05/17 13:05 ALT 15 U/L (7-52) 09/05/17 13:05 Alkaline Phosphatase 95 U/L (34-104) 09/05/17 13:05 Ammonia 60 umol/L (16-53) H 09/06/17 06:24 Troponin I < 0.01 ng/mL (0.01-0.05) L 09/05/17 13:05 B-Natriuretic Peptide 161.0 pg/mL (5.0-100.0) H 09/08/17 05:45 Total Protein 6.5 gm/dL (6.0-8.3) 09/05/17 13:05 Albumin 3.9 gm/dL (4.2-5.5) L 09/05/17 13:05 Globulin 2.6 gm/dL 09/05/17 13:05 Albumin/Globulin Ratio 1.5 (1.0-1.8) 09/05/17 13:05 Triglycerides 129 mg/dL (<150) 09/08/17 05:45 Cholesterol 142 mg/dL (<200) 09/08/17 05:45 LDL Cholesterol Direct 79 mg/dL (75-193) 09/08/17 05:45 HDL Cholesterol 42 mg/dL (23-92) 09/08/17 05:45 Lipase 70 U/L (11-82) 09/08/17 05:45 TSH 2.03 uIU/ml (0.34-5.60) 09/05/17 13:05 Urine Source RANDOM 09/05/17 12:36 Urine Color YELLOW 09/05/17 12:36 Urine Clarity CLEAR (CLEAR) 09/05/17 12:36 Urine pH 6.5 (4.6 - 8.0) 09/05/17 12:36 Ur Specific [place] 1.015 (1.005-1.030) 09/05/17 12:36 Urine Protein NEGATIVE mg/dL (NEGATIVE) 09/05/17 12:36 Urine Glucose (UA) NEGATIVE mg/dL (NEGATIVE) 09/05/17 12:36 Urine Ketones NEGATIVE mg/dL (NEGATIVE) 09/05/17 12:36 Urine Blood NEGATIVE (NEGATIVE) 09/05/17 12:36 Urine Nitrate NEGATIVE (NEGATIVE) 09/05/17 12:36 Urine Bilirubin NEGATIVE (NEGATIVE) 09/05/17 12:36 Urine Urobilinogen 0.2 E.U./dL (0.2 - 1.0) 09/05/17 12:36 Ur Leukocyte Esterase TRACE (NEGATIVE) H 09/05/17 12:36 Urine RBC 0-2 /hpf (0-5) H 09/05/17 12:36 Urine WBC 6-10 /hpf (0-5) 09/05/17 12:36 Ur Epithelial Cells OCCASIONAL /lpf (FEW) 09/05/17 12:36 Urine Bacteria FEW /hpf (NONE SEEN) 09/05/17 12:36 Phenytoin < 2.5 ug/ml (10.0-20.0) L 09/05/17 13:05 Lamotrigine 6.2 ug/mL (2.0-20.0) 09/05/17 13:05 Levetiracetam 33.9 ug/mL (10.0-40.0) 09/05/17 13:05 - Physical Exam Vitals and I&O: Vital Signs Temp 97.2 F 09/08/17 11:56 Pulse 58 09/08/17 11:56 Resp 18 09/08/17 11:56 BP 143/77 09/08/17 11:56 Pulse Ox 97 09/08/17 11:56 Intake & Output 09/07/17 09/08/17 09/08/17 18:59 06:59 18:59 Intake Total 1210 960 Balance 1210 960 Weight (lbs) 80.014 kg Intake: Intake, IV Amount 1210 310 D5-0.9%Ns 1,000 ml @ 80 1000 mls/hr IV .[id number] [facility] Rx #:[id number] Levetiracetam 1,000 mg In 110 110 Sodium Chloride 0.9% 100 ml @ 400 mls/hr IV Q12H [facility] Rx#:[id number] Piperacillin Sodium/ 100 200 Tazobact 4.5 gm In Sodium Chloride 0.9% 100 ml @ 100 mls/hr IV Q8HR [facility] Rx #:[id number] Oral 650 Other: # Voids 2 # Bowel Movements 1 Stool Characteristics Soft Soft Soft Formed Formed Formed Brown Brown Brown Active Medications: Current Medications Acetaminophen (Tylenol) 650 mg PO Q6H PRN PRN Reason: PAIN OR FEVER >100 Albuterol Sulfate (Albuterol 2.5mg/3ml Neb Ud) 2.5 mg HHN QIDRT [facility] Stop: 11/04/17 18:59 Last Admin: 09/08/17 11:12 Dose: 2.5 mg Benztropine Mesylate (Cogentin) 1 mg PO BID [facility] Stop: 11/05/17 08:59 Last Admin: 09/08/17 09:39 Dose: 1 mg Bisacodyl (Dulcolax 5 Mg Ec Tab) 5 mg PO DAILY [facility] Stop: 11/05/17 08:59 Last Admin: 09/08/17 09:39 Dose: 5 mg Brimonidine Tartrate (Alphagan 0.2% Ophth Soln) 1 drop EACH EYE BID [facility] Stop: 11/05/17 08:59 Last Admin: 09/08/17 09:39 Dose: 1 drop Escitalopram Oxalate (Lexapro) 10 mg PO DAILY [facility] PRN Reason: Protocol Stop: 11/05/17 08:59 Last Admin: 09/08/17 09:39 Dose: 10 mg Finasteride (Proscar) 5 mg PO DAILY [facility] PRN Reason: Protocol Stop: 11/05/17 08:59 Last Admin: 09/08/17 09:40 Dose: 5 mg Folic Acid (Folate) 1 mg PO DAILY [facility] Stop: 11/05/17 08:59 Last Admin: 09/08/17 09:40 Dose: 1 mg Guaifenesin/Dextromethorphan (Robitussin Dm) 10 ml PO Q4HR PRN PRN Reason: Cough Stop: 11/04/17 17:56 Heparin Sodium (Porcine) (Heparin) 5,000 units SUBQ Q12HR [facility] Stop: 11/04/17 20:59 Last Admin: 09/08/17 09:39 Dose: 5,000 units Hydrocortisone (Hydrocortisone 1%) 1 appl TP BID [facility] Stop: 11/05/17 08:59 Last Admin: 09/08/17 09:40 Dose: 1 appl Dextrose/Sodium Chloride (D5-0.9%Ns) 1,000 mls @ 80 mls/hr IV .[id number] [facility] Stop: 11/04/17 18:14 Last Admin: 09/07/17 18:14 Dose: 80 mls/hr Piperacillin Sod/Tazobactam (Sod 4.5 gm/ Sodium Chloride) 100 mls @ 100 mls/hr IV Q8HR [facility] Stop: 11/04/17 20:59 Last Admin: 09/08/17 14:06 Dose: 100 mls/hr Levetiracetam 1,000 mg/ Sodium (Chloride) 110 mls @ 400 mls/hr IV Q12H [facility] Stop: 11/05/17 10:29 Last Admin: 09/08/17 11:05 Dose: 400 mls/hr Ibuprofen (Motrin) 600 mg PO Q6H PRN PRN Reason: Pain Stop: 11/04/17 17:56 Ipratropium [place] (Atrovent Neb 0.5mg/2.5ml) 0.5 mg IH QIDRT [facility] Stop: 11/04/17 18:59 Last Admin: 09/08/17 11:12 Dose: 0.5 mg Lactulose (Cephulac) 20 gm PO TID [facility] Stop: 11/04/17 20:59 Last Admin: 09/08/17 09:41 Dose: 20 gm Lamotrigine (Lamictal) 200 mg PO BID [facility] Stop: 11/05/17 16:59 Last Admin: 09/08/17 09:39 Dose: 200 mg Lamotrigine (Lamictal) 150 mg PO HS [facility] Stop: 11/05/17 20:59 Last Admin: 09/07/17 21:53 Dose: 150 mg Latanoprost (Xalatan 0.005% Ophth Soln) 1 drop EACH EYE HS [facility] Stop: 11/04/17 20:59 Last Admin: 09/07/17 21:53 Dose: 1 drop Levothyroxine Sodium 0.1 mg/ (Levothyroxine Sodium 0.025 mg) 0.125 mg PO QDAC [facility] Stop: 11/06/17 08:59 Last Admin: 09/08/17 06:32 Dose: Not Given Loperamide HCl (Imodium) 2 mg PO Q6H PRN PRN Reason: DIARRHEA Stop: 11/05/17 09:26 Lorazepam (Ativan) 2 mg IM Q12H PRN; Protocol PRN Reason: Seizure Stop: 11/04/17 17:56 Lorazepam (Ativan) 1 mg PO BID PRN; Protocol PRN Reason: Anxiety Stop: 11/04/17 17:56 Lorazepam (Ativan) 1 mg PO QPM [facility] PRN Reason: Protocol Stop: 11/05/17 16:59 Last Admin: 09/07/17 18:13 Dose: Not Given Lorazepam (Ativan) 1 mg IV Q4H PRN; Protocol PRN Reason: Seizure Stop: 11/04/17 18:01 Miconazole Nitrate (Micatin 2%) 1 appl TP BID [facility] Stop: 11/05/17 16:59 Last Admin: 09/08/17 09:40 Dose: 1 appl Pantoprazole Sodium (Protonix) 40 mg PO HS [facility] Stop: 11/04/17 20:59 Last Admin: 09/07/17 21:53 Dose: 40 mg Aptiom 600mg Tab 1 PO HS [facility] Stop: 11/06/17 08:44 Last Admin: 09/07/17 21:54 Dose: 1 Onfi 20mg Tab 1 PO BID [facility] Stop: 11/06/17 08:44 Last Admin: 09/08/17 09:39 Dose: 1 Polyethylene Glycol (Miralax) 17 gm PO DAILY [facility] Stop: 11/05/17 08:59 Last Admin: 09/08/17 09:40 Dose: 17 gm Quetiapine Fumarate (Seroquel) 25 mg PO BID [facility] PRN Reason: Protocol Stop: 11/05/17 08:59 Last Admin: 09/08/17 09:40 Dose: 25 mg Sodium Phosphate (Fleet Enema) 135 ml RC PRN PRN PRN Reason: Constipation Stop: 11/04/17 17:56 Tamsulosin HCl (Flomax) 0.4 mg PO HS [facility] Stop: 11/04/17 20:59 Last Admin: 09/07/17 21:53 Dose: 0.4 mg General: lethargic, demented HEENT: NC/AT, PERRLA, thinning hair Neck: Supple, No JVD Cardiovascular: RRR, Normal S1, Normal S2, without murmur Abdomen: soft, globular, positive bowel sound Extremities: excoriation Neurological: no change, disorganized, unable to follow command, bedbound Internal Medicine Assmt/Plan - Assessment Assessment: ASSESSMENT AND PLAN: 1. Failure to thrive. 2. Urinary tract infection. 3. Dehydration. 4. Mental retardation. 5. Cerebral palsy. 6. Leukocytosis. 7. Hyponatremia. 8. Low albumin/mild protein calorie malnutrition. 9. Seizure. 10. Generalized contractures. We will continue the patient on aggressive IV hydration. We will refer the patient to Psychiatry to adjust the patient's psychotropic medication. Continue antiepileptic medications. We will review the patient's urine culture and sensitivity. We will monitor the patient's overall function. Continue with current care with followup consult and recommendations. - Plan Plan: will refer pt to gi 2 chronic constipation ho of meg[place] cpm servando rn cxr noted, will consider ct chest
[2017-09-08] MEDS: D5-0.9%NS 1,000 ML IV SCH (16:01)
[2017-09-08] MEDS: Pantoprazole 40 mg EC Tab PO SCH (22:28)
[2017-09-08] MEDS: APTIOM 600 MG PO SCH (23:39)
[2017-09-09 05:12] LABS: FOLIC ACID 17.3 ng/mL (>3.0)
[2017-09-09] MEDS: D5-0.9%NS 1,000 ML IV SCH (05:59)
[2017-09-09] MEDS: Albuterol Nebulizer 2.5mg/3mL HHN SCH ×3 (07:14→15:21)
[2017-09-09] MEDS: Ipratropium Neb 0.5 mg/2.5 mL UD IH SCH ×3 (07:14→15:21)
--- NOTE | 2017-09-09 07:41 | GI Progress Note ---
Subjective - Review of Systems Subjective: NO EVENTS BM YESTERDAY Objective - Results Result Diagrams: 09/08/17 05:45 09/08/17 05:45 Recent Labs: Laboratory Last Values WBC 7.6 Th/cmm (4.8-10.8) D 09/08/17 05:45 RBC 4.24 Mil/cmm (4.30-5.70) L 09/08/17 05:45 Hgb 13.6 gm/dL (12-16) 09/08/17 05:45 Hct 41.5 % (41.0-60) 09/08/17 05:45 MCV 97.9 fl (80-99) 09/08/17 05:45 MCH 32.1 pg (26.0-30.0) H 09/08/17 05:45 MCHC Differential 32.7 pg (28.0-36.0) 09/08/17 05:45 RDW 14.2 % (11.5-20.0) 09/08/17 05:45 Plt Count 280 Th/cmm (150-400) 09/08/17 05:45 MPV 7.2 fl 09/08/17 05:45 Neutrophils % 61.4 % (40.0-80.0) 09/08/17 05:45 Lymphocytes % 19.7 % (20.0-50.0) L 09/08/17 05:45 Monocytes % 13.3 % (2.0-10.0) H 09/08/17 05:45 Eosinophils % 5.0 % (0.0-5.0) 09/08/17 05:45 Basophils % 0.6 % (0.0-2.0) 09/08/17 05:45 Sodium 140 mEq/L (136-145) 09/08/17 05:45 Potassium 3.9 mEq/L (3.5-5.1) 09/08/17 05:45 Chloride 111 mEq/L (98-107) H 09/08/17 05:45 Carbon Dioxide 24.2 mEq/L (21.0-31.0) 09/08/17 05:45 Anion Gap 8.7 (7.0-16.0) 09/08/17 05:45 BUN 6 mg/dL (7-25) L 09/08/17 05:45 Creatinine 0.6 mg/dL (0.7-1.3) L 09/08/17 05:45 Est GFR ( Amer) > 60.0 ml/min (>90) 09/08/17 05:45 Est GFR (Non-Af Amer) > 60.0 ml/min 09/08/17 05:45 BUN/Creatinine Ratio 10.0 09/08/17 05:45 Glucose 91 mg/dL (70-105) 09/08/17 05:45 POC Glucose 84 MG/DL (70 - 105) 09/05/17 22:34 Calcium 9.1 mg/dL (8.6-10.3) 09/08/17 05:45 Total Bilirubin 0.5 mg/dL (0.3-1.0) 09/05/17 13:05 AST 15 U/L (13-39) 09/05/17 13:05 ALT 15 U/L (7-52) 09/05/17 13:05 Alkaline Phosphatase 95 U/L (34-104) 09/05/17 13:05 Ammonia 60 umol/L (16-53) H 09/06/17 06:24 Troponin I < 0.01 ng/mL (0.01-0.05) L 09/05/17 13:05 B-Natriuretic Peptide 161.0 pg/mL (5.0-100.0) H 09/08/17 05:45 Total Protein 6.5 gm/dL (6.0-8.3) 09/05/17 13:05 Albumin 3.9 gm/dL (4.2-5.5) L 09/05/17 13:05 Globulin 2.6 gm/dL 09/05/17 13:05 Albumin/Globulin Ratio 1.5 (1.0-1.8) 09/05/17 13:05 Triglycerides 129 mg/dL (<150) 09/08/17 05:45 Cholesterol 142 mg/dL (<200) 09/08/17 05:45 LDL Cholesterol Direct 79 mg/dL (75-193) 09/08/17 05:45 HDL Cholesterol 42 mg/dL (23-92) 09/08/17 05:45 Lipase 70 U/L (11-82) 09/08/17 05:45 Vitamin B12 1416 pg/mL (232-1245) H 09/06/17 06:24 Folic Acid 17.3 ng/mL (>3.0) 09/06/17 06:24 TSH 2.03 uIU/ml (0.34-5.60) 09/05/17 13:05 Urine Source RANDOM 09/05/17 12:36 Urine Color YELLOW 09/05/17 12:36 Urine Clarity CLEAR (CLEAR) 09/05/17 12:36 Urine pH 6.5 (4.6 - 8.0) 09/05/17 12:36 Ur Specific [place] 1.015 (1.005-1.030) 09/05/17 12:36 Urine Protein NEGATIVE mg/dL (NEGATIVE) 09/05/17 12:36 Urine Glucose (UA) NEGATIVE mg/dL (NEGATIVE) 09/05/17 12:36 Urine Ketones NEGATIVE mg/dL (NEGATIVE) 09/05/17 12:36 Urine Blood NEGATIVE (NEGATIVE) 09/05/17 12:36 Urine Nitrate NEGATIVE (NEGATIVE) 09/05/17 12:36 Urine Bilirubin NEGATIVE (NEGATIVE) 09/05/17 12:36 Urine Urobilinogen 0.2 E.U./dL (0.2 - 1.0) 09/05/17 12:36 Ur Leukocyte Esterase TRACE (NEGATIVE) H 09/05/17 12:36 Urine RBC 0-2 /hpf (0-5) H 09/05/17 12:36 Urine WBC 6-10 /hpf (0-5) 09/05/17 12:36 Ur Epithelial Cells OCCASIONAL /lpf (FEW) 09/05/17 12:36 Urine Bacteria FEW /hpf (NONE SEEN) 09/05/17 12:36 Phenytoin < 2.5 ug/ml (10.0-20.0) L 09/05/17 13:05 Lamotrigine 6.2 ug/mL (2.0-20.0) 09/05/17 13:05 Levetiracetam 33.9 ug/mL (10.0-40.0) 09/05/17 13:05 - Physical Exam Vitals and I&O: Vital Signs Temp 97.2 F 09/09/17 04:00 Pulse 62 09/09/17 07:14 Resp 16 09/09/17 07:14 BP 145/85 09/09/17 04:00 Pulse Ox 96 09/09/17 07:14 Intake & Output 09/08/17 09/09/17 09/09/17 18:59 06:59 18:59 Intake Total 710 1125 Balance 710 1125 Weight (lbs) 79.832 kg 79.832 kg Intake: Intake, IV Amount 210 1100 D5-0.9%Ns 1,000 ml @ 80 1000 mls/hr IV .[id number] [facility] Rx #:[id number] Levetiracetam 1,000 mg In 110 Sodium Chloride 0.9% 100 ml @ 400 mls/hr IV Q12H [facility] Rx#:[id number] Piperacillin Sodium/ 100 100 Tazobact 4.5 gm In Sodium Chloride 0.9% 100 ml @ 100 mls/hr IV Q8HR [facility] Rx #:[id number] Oral 500 25 Other: # Voids 3 3 # Bowel Movements 2 1 Stool Characteristics Soft Formed Brown Active Medications: Current Medications Acetaminophen (Tylenol) 650 mg PO Q6H PRN PRN Reason: PAIN OR FEVER >100 Albuterol Sulfate (Albuterol 2.5mg/3ml Neb Ud) 2.5 mg HHN QIDRT [facility] Stop: 11/04/17 18:59 Last Admin: 09/09/17 07:14 Dose: 2.5 mg Benztropine Mesylate (Cogentin) 1 mg PO BID [facility] Stop: 11/05/17 08:59 Last Admin: 09/08/17 16:26 Dose: 1 mg Bisacodyl (Dulcolax 5 Mg Ec Tab) 5 mg PO DAILY [facility] Stop: 11/05/17 08:59 Last Admin: 09/08/17 09:39 Dose: 5 mg Brimonidine Tartrate (Alphagan 0.2% Ophth Soln) 1 drop EACH EYE BID [facility] Stop: 11/05/17 08:59 Last Admin: 09/08/17 16:25 Dose: 1 drop Escitalopram Oxalate (Lexapro) 10 mg PO DAILY [facility] PRN Reason: Protocol Stop: 11/05/17 08:59 Last Admin: 09/08/17 09:39 Dose: 10 mg Finasteride (Proscar) 5 mg PO DAILY [facility] PRN Reason: Protocol Stop: 11/05/17 08:59 Last Admin: 09/08/17 09:40 Dose: 5 mg Folic Acid (Folate) 1 mg PO DAILY [facility] Stop: 11/05/17 08:59 Last Admin: 09/08/17 09:40 Dose: 1 mg Guaifenesin/Dextromethorphan (Robitussin Dm) 10 ml PO Q4HR PRN PRN Reason: Cough Stop: 11/04/17 17:56 Heparin Sodium (Porcine) (Heparin) 5,000 units SUBQ Q12HR [facility] Stop: 11/04/17 20:59 Last Admin: 09/08/17 22:37 Dose: Not Given Hydrocortisone (Hydrocortisone 1%) 1 appl TP BID [facility] Stop: 11/05/17 08:59 Last Admin: 09/08/17 16:26 Dose: 1 appl Dextrose/Sodium Chloride (D5-0.9%Ns) 1,000 mls @ 80 mls/hr IV .[id number] [facility] Stop: 11/04/17 18:14 Last Admin: 09/09/17 05:59 Dose: 80 mls/hr Piperacillin Sod/Tazobactam (Sod 4.5 gm/ Sodium Chloride) 100 mls @ 100 mls/hr IV Q8HR [facility] Stop: 11/04/17 20:59 Last Admin: 09/09/17 05:59 Dose: 100 mls/hr Levetiracetam 1,000 mg/ Sodium (Chloride) 110 mls @ 400 mls/hr IV Q12H [facility] Stop: 11/05/17 10:29 Last Admin: 09/08/17 22:27 Dose: 400 mls/hr Ibuprofen (Motrin) 600 mg PO Q6H PRN PRN Reason: Pain Stop: 11/04/17 17:56 Ipratropium [place] (Atrovent Neb 0.5mg/2.5ml) 0.5 mg IH QIDRT [facility] Stop: 11/04/17 18:59 Last Admin: 09/09/17 07:14 Dose: 0.5 mg Lactulose (Cephulac) 20 gm PO TID [facility] Stop: 11/04/17 20:59 Last Admin: 09/08/17 22:28 Dose: 20 gm Lamotrigine (Lamictal) 200 mg PO BID [facility] Stop: 11/05/17 16:59 Last Admin: 09/08/17 16:26 Dose: 200 mg Lamotrigine (Lamictal) 150 mg PO HS [facility] Stop: 11/05/17 20:59 Last Admin: 09/08/17 22:28 Dose: 150 mg Latanoprost (Xalatan 0.005% Ophth Soln) 1 drop EACH EYE HS [facility] Stop: 11/04/17 20:59 Last Admin: 09/08/17 23:39 Dose: Not Given Levothyroxine Sodium 0.1 mg/ (Levothyroxine Sodium 0.025 mg) 0.125 mg PO QDAC [facility] Stop: 11/06/17 08:59 Last Admin: 09/08/17 06:32 Dose: Not Given Loperamide HCl (Imodium) 2 mg PO Q6H PRN PRN Reason: DIARRHEA Stop: 11/05/17 09:26 Lorazepam (Ativan) 2 mg IM Q12H PRN; Protocol PRN Reason: Seizure Stop: 11/04/17 17:56 Lorazepam (Ativan) 1 mg PO BID PRN; Protocol PRN Reason: Anxiety Stop: 11/04/17 17:56 Lorazepam (Ativan) 1 mg PO QPM [facility] PRN Reason: Protocol Stop: 11/05/17 16:59 Last Admin: 09/08/17 16:27 Dose: 1 mg Lorazepam (Ativan) 1 mg IV Q4H PRN; Protocol PRN Reason: Seizure Stop: 11/04/17 18:01 Miconazole Nitrate (Micatin 2%) 1 appl TP BID [facility] Stop: 11/05/17 16:59 Last Admin: 09/08/17 16:26 Dose: 1 appl Pantoprazole Sodium (Protonix) 40 mg PO HS [facility] Stop: 11/04/17 20:59 Last Admin: 09/08/17 22:28 Dose: 40 mg Aptiom 600mg Tab 1 PO HS [facility] Stop: 11/06/17 08:44 Last Admin: 09/08/17 23:39 Dose: Not Given Onfi 20mg Tab 1 PO BID [facility] Stop: 11/06/17 08:44 Last Admin: 09/08/17 16:25 Dose: 1 Polyethylene Glycol (Miralax) 17 gm PO DAILY [facility] Stop: 11/05/17 08:59 Last Admin: 09/08/17 09:40 Dose: 17 gm Quetiapine Fumarate (Seroquel) 25 mg PO BID [facility] PRN Reason: Protocol Stop: 11/05/17 08:59 Last Admin: 09/08/17 16:25 Dose: 25 mg Sodium Phosphate (Fleet Enema) 135 ml RC PRN PRN PRN Reason: Constipation Stop: 11/04/17 17:56 Tamsulosin HCl (Flomax) 0.4 mg PO HS [facility] Stop: 11/04/17 20:59 Last Admin: 09/08/17 22:28 Dose: 0.4 mg Assessment/Plan - Problem List Patient Problems: All Active Problems ABDOMINAL PAIN WITH POOR ORAL INTAKE (Acute) - Assessment Assessment: 62 YO MALE WITH FECAL IMPACTION PRIOR COLO 1.AWAIT COLO RECORDS 2.CONT MIRALAX, DULCOLAX, LACTULOSE, FLEET ENEMA 3.AWAIT AMITIZA 4.CONSIDER BARIUM ENEMA
--- NOTE | 2017-09-09 08:00 | Diagnostic Imaging Report ---
Exam: CT examination of the chest HISTORY: Aspiration. Total DLP equals 387 CTDI equals 9.2 Findings: Multiple contiguous thin section of the chest were obtained from thoracic outlet to the upper abdomen without the administration of contrast material. The study significantly limited due to severe deformity of the chest The study correlated with the previous exam of 5 01/26/2016. The study demonstrates peribronchial infiltrate left base with superimposed effusion pleural thickening Right basilar atelectasis and pleural thickening appreciated. The heart is enlarged. Adenopathy is difficult to exclude due to significant the limitation positioning of patient and lack of contrast material. The heart is enlarged. Bony structures demonstrate no evidence for lytic or blastic lesions. Incidentally noted is significantly distended the colon under the diaphragm with air. IMPRESSION: Limited examination due to patient deformity. Left lower lobe infiltrate superimposed effusion pleural thickening Right basilar atelectasis pleural thickening. Cardiomegaly. Clinical correlation recommended.
[2017-09-09] MEDS: POLYETHYLENE GLYCOL 3350 17 GM PACK PO SCH (09:25)
[2017-09-09] MEDS: Lactulose 10 Gm/15 mL 30mL UDC PO SCH ×2 (09:29→13:15)
[2017-09-09] MEDS: ONFI 20 MG PO SCH ×2 (09:33→19:00)
[2017-09-09] MEDS: Miconazole Nitrate 2% Cream 30gm TP SCH ×2 (09:37→18:59)
--- NOTE | 2017-09-09 09:59 | Diagnostic Imaging Report ---
KUB abdominal film (portable) HISTORY: Fecal impaction There is a severely distended stool-filled rectum and lower sigmoid colon. Associated dilated large bowel noted. Findings consistent with changes of a severe fecal impaction. IMPRESSION: 1. Markedly distended stool-filled rectum and lower sigmoid colon with dilated large bowel. Changes consistent with a severe fecal impaction.
--- NOTE | 2017-09-09 11:26 | Internal Medicine Prog Note ---
Internal Medicine Subjective - Subjective Service Date: 09/09/17 Patient is:: asleep, verbal, eyes closed, in bed Patient Complaints of:: congestion, constipation Per staff patient has:: no adverse event, poor appetite, poor oral intake, agitated, refusing care Internal Medicine Objective - Results Result Diagrams: 09/08/17 05:45 09/08/17 05:45 Recent Labs: Laboratory Last Values WBC 7.6 Th/cmm (4.8-10.8) D 09/08/17 05:45 RBC 4.24 Mil/cmm (4.30-5.70) L 09/08/17 05:45 Hgb 13.6 gm/dL (12-16) 09/08/17 05:45 Hct 41.5 % (41.0-60) 09/08/17 05:45 MCV 97.9 fl (80-99) 09/08/17 05:45 MCH 32.1 pg (26.0-30.0) H 09/08/17 05:45 MCHC Differential 32.7 pg (28.0-36.0) 09/08/17 05:45 RDW 14.2 % (11.5-20.0) 09/08/17 05:45 Plt Count 280 Th/cmm (150-400) 09/08/17 05:45 MPV 7.2 fl 09/08/17 05:45 Neutrophils % 61.4 % (40.0-80.0) 09/08/17 05:45 Lymphocytes % 19.7 % (20.0-50.0) L 09/08/17 05:45 Monocytes % 13.3 % (2.0-10.0) H 09/08/17 05:45 Eosinophils % 5.0 % (0.0-5.0) 09/08/17 05:45 Basophils % 0.6 % (0.0-2.0) 09/08/17 05:45 Sodium 140 mEq/L (136-145) 09/08/17 05:45 Potassium 3.9 mEq/L (3.5-5.1) 09/08/17 05:45 Chloride 111 mEq/L (98-107) H 09/08/17 05:45 Carbon Dioxide 24.2 mEq/L (21.0-31.0) 09/08/17 05:45 Anion Gap 8.7 (7.0-16.0) 09/08/17 05:45 BUN 6 mg/dL (7-25) L 09/08/17 05:45 Creatinine 0.6 mg/dL (0.7-1.3) L 09/08/17 05:45 Est GFR ( Amer) > 60.0 ml/min (>90) 09/08/17 05:45 Est GFR (Non-Af Amer) > 60.0 ml/min 09/08/17 05:45 BUN/Creatinine Ratio 10.0 09/08/17 05:45 Glucose 91 mg/dL (70-105) 09/08/17 05:45 POC Glucose 84 MG/DL (70 - 105) 09/05/17 22:34 Calcium 9.1 mg/dL (8.6-10.3) 09/08/17 05:45 Total Bilirubin 0.5 mg/dL (0.3-1.0) 09/05/17 13:05 AST 15 U/L (13-39) 09/05/17 13:05 ALT 15 U/L (7-52) 09/05/17 13:05 Alkaline Phosphatase 95 U/L (34-104) 09/05/17 13:05 Ammonia 60 umol/L (16-53) H 09/06/17 06:24 Troponin I < 0.01 ng/mL (0.01-0.05) L 09/05/17 13:05 B-Natriuretic Peptide 161.0 pg/mL (5.0-100.0) H 09/08/17 05:45 Total Protein 6.5 gm/dL (6.0-8.3) 09/05/17 13:05 Albumin 3.9 gm/dL (4.2-5.5) L 09/05/17 13:05 Globulin 2.6 gm/dL 09/05/17 13:05 Albumin/Globulin Ratio 1.5 (1.0-1.8) 09/05/17 13:05 Triglycerides 129 mg/dL (<150) 09/08/17 05:45 Cholesterol 142 mg/dL (<200) 09/08/17 05:45 LDL Cholesterol Direct 79 mg/dL (75-193) 09/08/17 05:45 HDL Cholesterol 42 mg/dL (23-92) 09/08/17 05:45 Lipase 70 U/L (11-82) 09/08/17 05:45 Vitamin B12 1416 pg/mL (232-1245) H 09/06/17 06:24 Folic Acid 17.3 ng/mL (>3.0) 09/06/17 06:24 TSH 2.03 uIU/ml (0.34-5.60) 09/05/17 13:05 Urine Source RANDOM 09/05/17 12:36 Urine Color YELLOW 09/05/17 12:36 Urine Clarity CLEAR (CLEAR) 09/05/17 12:36 Urine pH 6.5 (4.6 - 8.0) 09/05/17 12:36 Ur Specific [place] 1.015 (1.005-1.030) 09/05/17 12:36 Urine Protein NEGATIVE mg/dL (NEGATIVE) 09/05/17 12:36 Urine Glucose (UA) NEGATIVE mg/dL (NEGATIVE) 09/05/17 12:36 Urine Ketones NEGATIVE mg/dL (NEGATIVE) 09/05/17 12:36 Urine Blood NEGATIVE (NEGATIVE) 09/05/17 12:36 Urine Nitrate NEGATIVE (NEGATIVE) 09/05/17 12:36 Urine Bilirubin NEGATIVE (NEGATIVE) 09/05/17 12:36 Urine Urobilinogen 0.2 E.U./dL (0.2 - 1.0) 09/05/17 12:36 Ur Leukocyte Esterase TRACE (NEGATIVE) H 09/05/17 12:36 Urine RBC 0-2 /hpf (0-5) H 09/05/17 12:36 Urine WBC 6-10 /hpf (0-5) 09/05/17 12:36 Ur Epithelial Cells OCCASIONAL /lpf (FEW) 09/05/17 12:36 Urine Bacteria FEW /hpf (NONE SEEN) 09/05/17 12:36 Phenytoin < 2.5 ug/ml (10.0-20.0) L 09/05/17 13:05 Lamotrigine 6.2 ug/mL (2.0-20.0) 09/05/17 13:05 Levetiracetam 33.9 ug/mL (10.0-40.0) 09/05/17 13:05 - Physical Exam Vitals and I&O: Vital Signs Temp 97.2 F 09/09/17 04:00 Pulse 69 09/09/17 10:45 Resp 16 09/09/17 10:45 BP 145/85 09/09/17 04:00 Pulse Ox 96 09/09/17 10:45 Intake & Output 09/08/17 09/09/17 09/09/17 18:59 06:59 18:59 Intake Total 710 1235 Balance 710 1235 Weight (lbs) 176 lb 176 lb Intake: Intake, IV Amount 210 1210 D5-0.9%Ns 1,000 ml @ 80 1000 mls/hr IV .[id number] [facility] Rx #:[id number] Levetiracetam 1,000 mg In 110 110 Sodium Chloride 0.9% 100 ml @ 400 mls/hr IV Q12H [facility] Rx#:[id number] Piperacillin Sodium/ 100 100 Tazobact 4.5 gm In Sodium Chloride 0.9% 100 ml @ 100 mls/hr IV Q8HR [facility] Rx #:[id number] Oral 500 25 Other: # Voids 3 3 # Bowel Movements 2 1 Stool Characteristics Soft Formed Brown Active Medications: Current Medications Acetaminophen (Tylenol) 650 mg PO Q6H PRN PRN Reason: PAIN OR FEVER >100 Albuterol Sulfate (Albuterol 2.5mg/3ml Neb Ud) 2.5 mg HHN QIDRT [facility] Stop: 11/04/17 18:59 Last Admin: 09/09/17 10:45 Dose: 2.5 mg Benztropine Mesylate (Cogentin) 1 mg PO BID [facility] Stop: 11/05/17 08:59 Last Admin: 09/09/17 09:26 Dose: 1 mg Bisacodyl (Dulcolax 5 Mg Ec Tab) 5 mg PO DAILY [facility] Stop: 11/05/17 08:59 Last Admin: 09/09/17 09:26 Dose: 5 mg Brimonidine Tartrate (Alphagan 0.2% Ophth Soln) 1 drop EACH EYE BID [facility] Stop: 11/05/17 08:59 Last Admin: 09/09/17 09:35 Dose: 1 drop Escitalopram Oxalate (Lexapro) 10 mg PO DAILY [facility] PRN Reason: Protocol Stop: 11/05/17 08:59 Last Admin: 09/09/17 09:26 Dose: 10 mg Finasteride (Proscar) 5 mg PO DAILY CHANDAN PRN Reason: Protocol Stop: 11/05/17 08:59 Last Admin: 09/09/17 09:27 Dose: 5 mg Folic Acid (Folate) 1 mg PO DAILY [facility] Stop: 11/05/17 08:59 Last Admin: 09/09/17 09:27 Dose: 1 mg Guaifenesin/Dextromethorphan (Robitussin Dm) 10 ml PO Q4HR PRN PRN Reason: Cough Stop: 11/04/17 17:56 Heparin Sodium (Porcine) (Heparin) 5,000 units SUBQ Q12HR CHANDAN Stop: 11/04/17 20:59 Last Admin: 09/09/17 09:29 Dose: 5,000 units Hydrocortisone (Hydrocortisone 1%) 1 appl TP BID [facility] Stop: 11/05/17 08:59 Last Admin: 09/09/17 09:36 Dose: Not Given Dextrose/Sodium Chloride (D5-0.9%Ns) 1,000 mls @ 80 mls/hr IV .[id number] [facility] Stop: 11/04/17 18:14 Last Admin: 09/09/17 05:59 Dose: 80 mls/hr Piperacillin Sod/Tazobactam (Sod 4.5 gm/ Sodium Chloride) 100 mls @ 100 mls/hr IV Q8HR [facility] Stop: 11/04/17 20:59 Last Admin: 09/09/17 05:59 Dose: 100 mls/hr Levetiracetam 1,000 mg/ Sodium (Chloride) 110 mls @ 400 mls/hr IV Q12H [facility] Stop: 11/05/17 10:29 Last Admin: 09/09/17 10:23 Dose: 400 mls/hr Ibuprofen (Motrin) 600 mg PO Q6H PRN PRN Reason: Pain Stop: 11/04/17 17:56 Ipratropium [place] (Atrovent Neb 0.5mg/2.5ml) 0.5 mg IH QIDRT [facility] Stop: 11/04/17 18:59 Last Admin: 09/09/17 10:45 Dose: 0.5 mg Lactulose (Cephulac) 20 gm PO TID CHANDAN Stop: 11/04/17 20:59 Last Admin: 09/09/17 09:29 Dose: 20 gm Lamotrigine (Lamictal) 200 mg PO BID CHANDAN Stop: 11/05/17 16:59 Last Admin: 09/09/17 09:36 Dose: 200 mg Lamotrigine (Lamictal) 150 mg PO HS CHANDAN Stop: 11/05/17 20:59 Last Admin: 09/08/17 22:28 Dose: 150 mg Latanoprost (Xalatan 0.005% Ophth Soln) 1 drop EACH EYE HS CHANDAN Stop: 11/04/17 20:59 Last Admin: 09/08/17 23:39 Dose: Not Given Levothyroxine Sodium 0.1 mg/ (Levothyroxine Sodium 0.025 mg) 0.125 mg PO QDAC CHANDAN Stop: 11/06/17 08:59 Last Admin: 09/09/17 07:53 Dose: 0.125 mg Loperamide HCl (Imodium) 2 mg PO Q6H PRN PRN Reason: DIARRHEA Stop: 11/05/17 09:26 Lorazepam (Ativan) 2 mg IM Q12H PRN; Protocol PRN Reason: Seizure Stop: 11/04/17 17:56 Lorazepam (Ativan) 1 mg PO BID PRN; Protocol PRN Reason: Anxiety Stop: 11/04/17 17:56 Lorazepam (Ativan) 1 mg PO QPM CHANDAN PRN Reason: Protocol Stop: 11/05/17 16:59 Last Admin: 09/08/17 16:27 Dose: 1 mg Lorazepam (Ativan) 1 mg IV Q4H PRN; Protocol PRN Reason: Seizure Stop: 11/04/17 18:01 Miconazole Nitrate (Micatin 2%) 1 appl TP BID CHANDAN Stop: 11/05/17 16:59 Last Admin: 09/09/17 09:37 Dose: Not Given Pantoprazole Sodium (Protonix) 40 mg PO HS CHANDAN Stop: 11/04/17 20:59 Last Admin: 09/08/17 22:28 Dose: 40 mg Aptiom 600mg Tab 1 PO HS CHANDAN Stop: 11/06/17 08:44 Last Admin: 09/08/17 23:39 Dose: Not Given Onfi 20mg Tab 1 PO BID CHADNAN Stop: 11/06/17 08:44 Last Admin: 09/09/17 09:33 Dose: 1 Polyethylene Glycol (Miralax) 17 gm PO DAILY CHANDAN Stop: 11/05/17 08:59 Last Admin: 09/09/17 09:25 Dose: 17 gm Quetiapine Fumarate (Seroquel) 25 mg PO BID CHANDAN PRN Reason: Protocol Stop: 11/05/17 08:59 Last Admin: 09/09/17 09:27 Dose: 25 mg Sodium Phosphate (Fleet Enema) 135 ml RC PRN PRN PRN Reason: Constipation Stop: 11/04/17 17:56 Tamsulosin HCl (Flomax) 0.4 mg PO HS CHANDAN Stop: 11/04/17 20:59 Last Admin: 09/08/17 22:28 Dose: 0.4 mg General: lethargic, demented HEENT: NC/AT, PERRLA, thinning hair Neck: Supple, No JVD Cardiovascular: RRR, Normal S1, Normal S2, without murmur Abdomen: soft, globular, positive bowel sound Extremities: excoriation Neurological: no change, disorganized, unable to follow command, bedbound Internal Medicine Assmt/Plan - Assessment Assessment: 1. Failure to thrive. 2. Urinary tract infection. 3. Dehydration. 4. Mental retardation. 5. Cerebral palsy. 6. Leukocytosis. 7. Hyponatremia. 8. Low albumin/mild protein calorie malnutrition. 9. Seizure. 10. Generalized contractures. - Plan Plan: ivf for hydration continue ivabx follow up labs in am continue current plan of care Nutritional Asmnt/Malnutr-PDOC - Dietary Evaluation Malnutrition Findings (Please click <Entered> for more info): Nutritional Asmnt/Malnutrition Start: 09/08/17 18: 23 Text: Status: Complete Freq: Document 09/08/17 18:23 HEN (Rec: 09/08/17 18:33 [email or web address]) Nutritional Asmnt/Malnutrition Patient General Information Nutritional Screening High Risk Diagnosis UTI, dehydration, FTT, fecal impaction Pertinent Medical Hx/Surgical Hx mental retardation, developmentally delay, cerebral palsy, seizure, generalized contractures, bedridden with recent dx of UTI with multi-drug resistant organism Subjective Information Pt seen having lunch by feeding at time of visit. Pt was drowsy and did not want to eat at this time. Nurse reported pt was more awake and consumed 90% of breakfast this morning. Per records, PO intake 50-100%, avg 75%. Pt on calorie count noted. Current Diet Order/ Nutrition Support pureed Pertinent Medications D5-0.9ns, folate, levothyroxine, protonix, piperacillin, seroquel, miralax Pertinent Labs 09/08 Na 140, K 3.9, Cl 111, BUN 6, Cr 0.6 Nutritional Hx/Data Height 5 ft 10 in Height (Calculated Centimeters) 177.8 Current Weight (lbs) 176 lb Weight (Calculated Kilograms) 79.8 Weight (Calculated Grams) 80828.3 [place] Body Weight 166 Body Mass Index (BMI) 25.2 Weight Status Overweight GI Symptoms GI Symptoms None Last BM 3/4 x 2 Difficult in: None Skin Integrity/Comment: pressure area to left ankle Current %PO Good (75-100%) Estimated Nutritional Goals BEE in Kcals: Using Current wt Calories/Kcals/Kg 25-30 Kcals Calculated 3727-0539 Protein: Using Current wt Protein g/k-1.2 Protein Calculated 80-96 Fluid: ml 2000-2400ml (1ml/kcal) Nutritional Problem 1. Problem Problem increased nutrition needs Etiology increased metabolic demand for wound Signs/Symptoms: pressure area to left ankle Malnutrition Alert Protein-Calorie Malnutrition N/A Is there a minimum of two criteria No selected? Query Text:Check all the applicable criteria. A minimum of two criteria are recommended for diagnosis of either severe or non-severe malnutrition. Intervention/Recommendation Comments 1. Continue with current diet as ordered. 2. Monitor PO intake, wt, labs and skin integrity 3. F/U as low risk in 7 days, 09/15. PO check 09/11 Expected Outcomes/Goals Expected Outcomes/Goals 1. PO intake to meet at least 75% of nutritional needs. 2. Wt stability, skin to remain intact, labs to approach WNL.
== END 2017-09-09 16:00 | disposition home health service (06) | DRG 388 ==
LOC: ER 12:27 → MSI 20:15
PROVIDERS: ADMIT Internal Medicine; ATTEND Internal Medicine
DX: K56.41 Fecal impaction (principal); R53.2 Functional quadriplegia; E44.1 Mild protein-calorie malnutrition; E87.1 Hypo-osmolality and hyponatremia; N39.0 Urinary tract infection, site not specified; R62.7 Adult failure to thrive; E86.0 Dehydration; F79 Unspecified intellectual disabilities; G80.9 Cerebral palsy, unspecified; G40.909 Epilepsy, unspecified, not intractable, without status epilepticus; F32.9 Major depressive disorder, single episode, unspecified; E07.9 Disorder of thyroid, unspecified; H40.9 Unspecified glaucoma; D72.829 Elevated white blood cell count, unspecified; Z74.01 Bed confinement status; Z88.8 Allergy status to other drugs, medicaments and biological substances; Z68.25 Body mass index [BMI] 25.0-25.9, adult; Z79.899 Other long term (current) drug therapy; Z79.1 Long term (current) use of non-steroidal anti-inflammatories (NSAID); Z79.2 Long term (current) use of antibiotics
CPT/HCPCS: 36415-UA; 70450-TC; 71045-TC; 71250-TC; 74000-TC; 80048-TC; 80053-TC; 80061-TC; 80185-TC; 80299-90; 81001-TC; 82140-TC; 82607-90; 82746-90; 82948-90; 83690-TC; 83880-TC; 84443-TC; 84484-TC; 85025-TC; 87086-90; 90732; 90779; 93005; 94760; J0692; J1644; J1953; J2543; J7030; J7042; J7613; Z7610

== ENCOUNTER 2017-09-23 18:05 | Inpatient (IN) | payer MEDICARE, MEDICAID ==
--- NOTE | 2017-09-23 20:41 | ED Physician Chart ---
ED Chief Complaint/HPI - Patient Information Date Seen:: 09/23/17 Time Seen:: 20:20 Chief Complaint:: abdominal distention History of Present Illness:: Patient's had abdominal distention for the last 2 days. He's had no vomiting. He has been constipated with the production of a small amount of stool. Patient was admitted here September 11 for dehydration, urinary tract infection and fecal impaction. Allergies:: Allergies Allergy/AdvReac Type Severity Reaction Status Date / Time buspirone [From BuSpar] Allergy Verified 09/05/17 13:38 divalproex sodium Allergy Verified 06/12/17 17:50 [From Depakote] fluoxetine Allergy Verified 06/12/17 13:01 magnesium hydroxide Allergy Verified 06/12/17 13:00 [From Milk of Magnesia] metoclopramide Allergy Verified 06/12/17 13:00 ondansetron Allergy Verified 06/12/17 13:01 Vitals:: Vital Signs - 8 hr 09/23/17 18:23 Temp 97.5 F HR 73 RR 12 O2 Sat % 95 Historian:: Other (from his facility who accompanies the patient) Review:: Nurse's Note Reviewed, Transfer documents Reviewed ED Review of Systems - Review of Systems General/Constitutional: No fever, No chills Skin: No skin lesions Head: No headache Eyes: No loss of vision ENT: No earache Neck: No neck pain, No swelling Cardio Vascular: No chest pain, No palpitations Pulmonary: No SOB GI: Constipation, Other G/U: No dysuria Musculoskeletal: No bone or joint pain Endocrine: No polyuria Psychiatric: Prior psych history Hematopoietic: No bruising Allergic/Immuno: No urticaria Neurological: No syncope ED Past Medical History - Past Medical History Past Medical History: Other (severe intellectual disability; seizures; hypothyroidism; testicular hypofunction; glaucoma; chronic constipation; osteoporosis; gastritis; major depression; impulse control disorder; anemia; arthritis) Family History: Other (unavailable) Social History: Care Facility Surgical History: other (unavailable) Psychiatricy History: Other (intellectual disability) Medication: Reviewed Family Medical History - Family Member Mother History Unknown: Yes Ethnicity: Non- ED Physical Exam - Physical Examination General/Constitutional: Awake Other Gen/Cons comments:: Chronically ill-appearing; barely verbal Head: Atraumatic Eyes: Lids, conjuctiva normal Skin: Nl inspection, No rash ENMT: External ears, nose nl Neck: No nuchal rigidity Respiratory: Nl effort/Exclusion, Clear to Auscultation Cardio Vascular: RRR, No murmur, gallop, rubs, NL S1 S2 Other GI comments:: Abdomen 3 out of 4 distended; tympanic bowel sounds; no apparent tenderness Extremities: Normal digits & nails Neuro/Psych: No focal deficits ED Labs/Radiology/EKG Results - Lab Results Results: Laboratory Results - last 24 hr 09/23/17 09/23/17 20:53 20:53 WBC 9.2 RBC 4.11 L Hgb 13.4 Hct 40.3 L MCV 98.2 MCH 32.6 H MCHC Differential 33.2 RDW 14.0 Plt Count 309 MPV 7.6 Neutrophils % 59.4 Lymphocytes % 20.3 Monocytes % 13.7 H Eosinophils % 6.3 H Basophils % 0.3 Sodium 129 L Potassium 3.6 Chloride 99 Carbon Dioxide 23.3 Anion Gap 10.3 BUN 13 Creatinine 0.5 L Est GFR ( Amer) > 60.0 Est GFR (Non-Af Amer) > 60.0 BUN/Creatinine Ratio 26.0 Glucose 89 Calcium 9.6 Lipase 17 - Radiology Results Results: CT scan of abdomen and pelvis showed massive distal fecal impaction with severely dilated bowel loops including sigmoid colon up to 18 cm. and bibasilar infiltrates. Chest x-ray showed a distortion. ED Septic Shock - . Is Septic Shock (SBP<90, OR Lactate>4 mmol\L) present?: No - <6hrs of presentation: Vital Signs: Vital Signs - 8 hr 09/23/17 18:23 Temp 97.5 F HR 73 RR 12 O2 Sat % 95 ED Reassessment (Disposition) - Reassessment Reassessment Condition:: Unchanged - Diagnosis Diagnosis:: Fecal impaction; severe mental retardation; pneumonia - Patient Disposition Admitted to:: Med/Surg Spoke to:: Zack Rick Admitting Medical Physician:: Zack Rick Condition at Disposition:: Stable, Unchanged
[2017-09-23 20:59] LABS: % BASOPHILS 0.3 % (0.0-2.0); % EOSINOPHILS 6.3 % (0.0-5.0); % LYMPHOCYTES 20.3 % (20.0-50.0); % MONOCYTES 13.7 % (2.0-10.0); % NEUTROPHILS 59.4 % (40.0-80.0); EOSINOPHILE ABSOLUTE 0.6 Th/cmm (0.1-0.4); HEMATOCRIT 40.3 % (41.0-60); HEMOGLOBIN 13.4 gm/dL (12-16); LYMPHOCYTE ABSOLUTE 1.9 Th/cmm (1.5-3.0); MEAN CELL VOLUME 98.2 fl (80-99); MEAN CORPUSCULAR HEMOGLOBIN 32.6 pg (26.0-30.0); MEAN CORPUSCULAR HGB CONC 33.2 pg (28.0-36.0); MEAN PLATELET VOLUME 7.6 fl; MONOCYTE ABSOLUTE 1.3 Th/cmm (0.3-1.0); NEUTROPHILE ABSOLUTE 5.4 Th/cmm (1.8-8.0); PLATELET COUNT 309 Th/cmm (150-400); RED BLOOD COUNT 4.11 Mil/cmm (4.30-5.70); WHITE BLOOD COUNT 9.2 Th/cmm (4.8-10.8)
[2017-09-23 21:12] LABS: ANION GAP 10.3 (7.0-16.0); BUN - UREA NITROGEN 13 mg/dL (7-25); CALCIUM SERUM 9.6 mg/dL (8.6-10.3); CARBON DIOXIDE 23.3 mEq/L (21.0-31.0); CHLORIDE 99 mEq/L (98-107); CREATININE - SERUM 0.5 mg/dL (0.7-1.3); GFR AFRICAN-AMERICAN > 60.0 ml/min (>90); GFR NON AFRICAN-AMERICAN > 60.0 ml/min; GLUCOSE 89 mg/dL (70-105); LIPASE 17 U/L (11-82); POTASSIUM SERUM 3.6 mEq/L (3.5-5.1); SODIUM SERUM 129 mEq/L (136-145)
[2017-09-23 22:00] LABS: URINE BILIRUBIN NEGATIVE (NEGATIVE); URINE BLOOD SMALL (NEGATIVE); URINE GLUCOSE (UA) NEGATIVE (NEGATIVE); URINE KETONE NEGATIVE (NEGATIVE); URINE LEUKOCYTE ESTERASE LARGE (NEGATIVE); URINE MICROSCOPIC INDICATED? YES; URINE NITRATE POSITIVE (NEGATIVE); URINE PH 6.5 (4.6 - 8.0); URINE PROTEIN 30 mg/dL (NEGATIVE); URINE SOURCE FOLEY PORT; URINE UROBILINOGEN 0.2 E.U./dL (0.2 - 1.0)
[2017-09-23] MEDS ORDERED: D5-0.9%NS 1,000 ML IV SCH (22:30)
[2017-09-23 22:33] LABS: URINE CLARITY CLOUDY (CLEAR); URINE COLOR YELLOW
[2017-09-23 22:35] LABS: URINE BACTERIA MANY /hpf (NONE SEEN); URINE EPITHELIAL CELLS RARE /lpf (FEW); URINE WBC 50-100 /hpf (0-5)
[2017-09-23] MEDS ORDERED: cefTRIAXone 1 GM in Sodium Chloride 0.9% 50 ML IV SCH (22:45)
[2017-09-23 22:58] LABS: ALB/GLOB RATIO 1.3 (1.0-1.8); ALBUMIN 3.8 gm/dL (4.2-5.5); BILIRUBIN,DIRECT 0.11 mg/dL (0.0-0.2); BILIRUBIN,TOTAL 0.4 mg/dL (0.3-1.0); TOTAL PROTEIN,SERUM 6.7 gm/dL (6.0-8.3)
--- NOTE | 2017-09-23 23:11 | History & Physical ---
ADMIT DATE: 09/24/2017 CHIEF COMPLAINT: Abdominal pain and distention and not eating. HISTORY OF PRESENT ILLNESS: This is a 62-year-old male with history of mental retardation, developmental delay, cerebral palsy, seizure, generalized contractures, bedridden, history of megacolon admitted from facility secondary to not having any bowel movement, not eating and not taking his medications. The patient is not interactive. PAST MEDICAL HISTORY: As mentioned in history of present illness. PAST SURGICAL HISTORY: Unable to obtain at this time. ALLERGIES: BUSPAR, DEPAKOTE, FLUOXETINE, MAGNESIUM, REGLAN, ZOFRAN. MEDICATIONS: Multivitamin, pantoprazole, rifaximin, simethicone, tamsulosin, alendronate, Lamictal, methotrexate, loratadine, lorazepam, Ativan, guaifenesin, ibuprofen. FAMILY HISTORY: Noncontributory. SOCIAL HISTORY: The patient is a intermediate patient requiring 24-hour total care. REVIEW OF SYSTEMS: This is limited secondary to the patient's current mental state. We will try to obtain more detailed review of systems at a later date by talking to family members. There is a family member, Bertrand Lam, from [place], number is [phone]. Also tried to get more information from the nursing staff at [facility], number [phone]. PHYSICAL EXAMINATION: VITAL SIGNS: Blood pressure 122/70, respiratory rate 14, pulse 60, temperature 97.3. GENERAL: Elderly male, appears chronically ill. NECK: Supple. No mass. LUNGS: Decreased breath sounds, few rhonchi. HEART: Regular rate and rhythm without appreciable murmurs. ABDOMEN: Soft, globular, distended, tympanic, decreased bowel sounds. EXTREMITIES: Positive excoriation contractures. NEUROLOGIC: Limited. LABORATORY DATA: WBC 9.3, hemoglobin 13, platelets 306. Sodium 129, potassium 3.6, BUN 34, creatinine 0.5. UA showed positive nitrite, large leukocytes. ASSESSMENT AND PLAN: Abdominal pain, abdominal distention, toxic megacolon, urinary tract infection, hyponatremia, dehydration, mental retardation, cerebral palsy, leukocytosis, protein-calorie malnutrition, seizures, generalized contracture. We will continue the patient on aggressive IV hydration. We will put the patient on laxative. We will refer the patient to GI. We will review the patient's CT abdomen and pelvis as well as chest x-ray. We will continue the patient on IV antibiotic. We will follow the patient's culture. Continue with current care. We will follow the patient closely. [facility]# [id number]
[2017-09-24 00:07] VITALS: BP 141/76
[2017-09-24] MEDS: Ipratropium Neb 0.5 mg/2.5 mL UD IH SCH ×4 (07:10→19:27)
[2017-09-24] MEDS: Albuterol Nebulizer 2.5mg/3mL HHN SCH ×4 (07:10→19:27)
[2017-09-24 08:19] LABS: EOSINOPHILE ABSOLUTE 0.4 Th/cmm (0.1-0.4); HEMATOCRIT 43.7 % (41.0-60); HEMOGLOBIN 14.2 gm/dL (12-16); LYMPHOCYTE ABSOLUTE 1.5 Th/cmm (1.5-3.0); MEAN CELL VOLUME 97.5 fl (80-99); MEAN CORPUSCULAR HEMOGLOBIN 31.8 pg (26.0-30.0); MEAN CORPUSCULAR HGB CONC 32.6 pg (28.0-36.0); MEAN PLATELET VOLUME 8.1 fl; MONOCYTE ABSOLUTE 1.3 Th/cmm (0.3-1.0); NEUTROPHILE ABSOLUTE 5.2 Th/cmm (1.8-8.0); PLATELET COUNT 289 Th/cmm (150-400); RED BLOOD COUNT 4.48 Mil/cmm (4.30-5.70); RED CELL DISTRIBUTION WIDTH 13.7 % (11.5-20.0); WHITE BLOOD COUNT 8.4 Th/cmm (4.8-10.8)
--- NOTE | 2017-09-24 08:23 | Diagnostic Imaging Report ---
Exam: Portable chest x-ray history: Pneumonia The study was compared to the prior exam CT examination of the chest at 09/08/2017 Findings: Portable exam of the chest at 2231 hours reviewed. The study serial limited due to severe deformity of the thoracic spine and severe rotation of the patient. The visualized the right lung parenchyma demonstrates normal aeration. There is a question of left lower lobe infiltrate and effusion. Follow-up dictation recommended. Again noted significant distention of bowel loops of the diaphragm. Clinical correlation is recommended. IMPRESSION: Limited examination due to severe scoliotic convexity of thoracic spine and diffuse deformity of the chest. Question left basilar infiltrate Severe distention of the bowel loops are noted diaphragm. Clinical correlation and follow-up exam is recommended
[2017-09-24 08:30] LABS: % NEUTROPHILS 61.9 % (40.0-80.0)
[2017-09-24 08:31] LABS: % BASOPHILS 0.1 % (0.0-2.0); % EOSINOPHILS 4.8 % (0.0-5.0); % LYMPHOCYTES 17.4 % (20.0-50.0); % MONOCYTES 15.8 % (2.0-10.0)
[2017-09-24] MEDS ORDERED: Fleet Enema 135 mL RC ONE (08:39)
[2017-09-24 08:42] LABS: ALB/GLOB RATIO 1.3 (1.0-1.8); ALBUMIN 3.8 gm/dL (4.2-5.5); ALKALINE PHOSPHATASE 85 U/L (34-104); BILIRUBIN,TOTAL 0.5 mg/dL (0.3-1.0); BUN - UREA NITROGEN 9 mg/dL (7-25); CALCIUM SERUM 9.6 mg/dL (8.6-10.3); CARBON DIOXIDE 24.6 mEq/L (21.0-31.0); CHLORIDE 100 mEq/L (98-107); CREATININE - SERUM 0.5 mg/dL (0.7-1.3); GFR AFRICAN-AMERICAN > 60.0 ml/min (>90); GFR NON AFRICAN-AMERICAN > 60.0 ml/min; GLUCOSE 92 mg/dL (70-105); MAGNESIUM 1.6 mg/dL (1.9-2.7); POTASSIUM SERUM 3.6 mEq/L (3.5-5.1); SGOT 12 U/L (13-39); SGPT/ALT 12 U/L (7-52); SODIUM SERUM 133 mEq/L (136-145); TOTAL PROTEIN,SERUM 6.7 gm/dL (6.0-8.3)
--- NOTE | 2017-09-24 08:49 | GI Progress Note ---
Subjective - Review of Systems Service Date: 09/24/17 Subjective: Pt was seen last by GI 09/09/17. At that time, pt admitted with distal fecal impaction, and again now admitted with the same. Pt has had no BMs in several days as per report. CT scan shows fecal impaction with sigmoid dilated to 18cm on prelim read. Pt not able to participate in the interview otherwise Objective - Results Result Diagrams: 09/24/17 07:50 09/23/17 20:53 Recent Labs: Laboratory Last Values WBC 8.4 Th/cmm (4.8-10.8) 09/24/17 07:50 RBC 4.48 Mil/cmm (4.30-5.70) 09/24/17 07:50 Hgb 14.2 gm/dL (12-16) 09/24/17 07:50 Hct 43.7 % (41.0-60) 09/24/17 07:50 MCV 97.5 fl (80-99) 09/24/17 07:50 MCH 31.8 pg (26.0-30.0) H 09/24/17 07:50 MCHC Differential 32.6 pg (28.0-36.0) 09/24/17 07:50 RDW 13.7 % (11.5-20.0) 09/24/17 07:50 Plt Count 289 Th/cmm (150-400) 09/24/17 07:50 MPV 8.1 fl 09/24/17 07:50 Neutrophils % 61.9 % (40.0-80.0) 09/24/17 07:50 Lymphocytes % 17.4 % (20.0-50.0) L 09/24/17 07:50 Monocytes % 15.8 % (2.0-10.0) H 09/24/17 07:50 Eosinophils % 4.8 % (0.0-5.0) 09/24/17 07:50 Basophils % 0.1 % (0.0-2.0) 09/24/17 07:50 Sodium 129 mEq/L (136-145) L 09/23/17 20:53 Potassium 3.6 mEq/L (3.5-5.1) 09/23/17 20:53 Chloride 99 mEq/L (98-107) 09/23/17 20:53 Carbon Dioxide 23.3 mEq/L (21.0-31.0) 09/23/17 20:53 Anion Gap 10.3 (7.0-16.0) 09/23/17 20:53 BUN 13 mg/dL (7-25) 09/23/17 20:53 Creatinine 0.5 mg/dL (0.7-1.3) L 09/23/17 20:53 Est GFR ( Amer) > 60.0 ml/min (>90) 09/23/17 20:53 Est GFR (Non-Af Amer) > 60.0 ml/min 09/23/17 20:53 BUN/Creatinine Ratio 26.0 09/23/17 20:53 Glucose 89 mg/dL (70-105) 09/23/17 20:53 POC Glucose 87 MG/DL (70 - 105) 09/23/17 23:16 Calcium 9.6 mg/dL (8.6-10.3) 09/23/17 20:53 Total Bilirubin 0.4 mg/dL (0.3-1.0) 09/23/17 20:53 Direct Bilirubin 0.11 mg/dL (0.0-0.2) 09/23/17 20:53 AST 12 U/L (13-39) L 09/23/17 20:53 ALT 11 U/L (7-52) 09/23/17 20:53 Alkaline Phosphatase 81 U/L (34-104) 09/23/17 20:53 Total Protein 6.7 gm/dL (6.0-8.3) 09/23/17 20:53 Albumin 3.8 gm/dL (4.2-5.5) L 09/23/17 20:53 Globulin 2.9 gm/dL 09/23/17 20:53 Albumin/Globulin Ratio 1.3 (1.0-1.8) 09/23/17 20:53 Lipase 17 U/L (11-82) 09/23/17 20:53 Urine Source [place] 09/23/17 20:33 Urine Color YELLOW 09/23/17 20:33 Urine Clarity CLOUDY (CLEAR) 09/23/17 20:33 Urine pH 6.5 (4.6 - 8.0) 09/23/17 20:33 Ur Specific [place] 1.020 (1.005-1.030) 09/23/17 20:33 Urine Protein 30 mg/dL (NEGATIVE) H 09/23/17 20:33 Urine Glucose (UA) NEGATIVE mg/dL (NEGATIVE) 09/23/17 20:33 Urine Ketones NEGATIVE mg/dL (NEGATIVE) 09/23/17 20:33 Urine Blood SMALL (NEGATIVE) H 09/23/17 20:33 Urine Nitrate POSITIVE (NEGATIVE) H 09/23/17 20:33 Urine Bilirubin NEGATIVE (NEGATIVE) 09/23/17 20:33 Urine Urobilinogen 0.2 E.U./dL (0.2 - 1.0) 09/23/17 20:33 Ur Leukocyte Esterase LARGE (NEGATIVE) H 09/23/17 20:33 Urine RBC 5-10 /hpf (0-5) H 09/23/17 20:33 Urine WBC 50-100 /hpf (0-5) H 09/23/17 20:33 Ur Epithelial Cells RARE /lpf (FEW) 09/23/17 20:33 Urine Bacteria MANY /hpf (NONE SEEN) H 09/23/17 20:33 - Physical Exam Vitals and I&O: Vital Signs Temp 97.0 F 09/24/17 04:00 Pulse 66 09/24/17 07:10 Resp 18 09/24/17 07:10 BP 128/74 09/24/17 04:00 Pulse Ox 98 09/24/17 07:10 Intake & Output 09/23/17 09/24/17 09/24/17 18:59 06:59 18:59 Intake Total 50 Balance 50 Weight (lbs) 77.156 kg Intake: Intake, IV Amount 50 Cefepime 1 gm In Dextrose 50 5% 50 ml @ 100 mls/hr IV Q12H [facility] Rx#:[id number] Other: Stool Characteristics Soft Active Medications: Current Medications Acetaminophen (Tylenol) 650 mg PO Q4H PRN PRN Reason: Pain Or Fever above 101 Stop: 11/22/17 22:23 Albuterol Sulfate (Albuterol 2.5mg/3ml Neb Ud) 2.5 mg HHN QIDRT [facility] Stop: 11/23/17 06:59 Last Admin: 09/24/17 07:10 Dose: 2.5 mg Bisacodyl (Dulcolax 10 Mg Supp) 10 mg RC DAILY PRN PRN Reason: Constipation Stop: 11/22/17 22:21 Dextrose/Sodium Chloride (D5-0.9%Ns) 1,000 mls @ 100 mls/hr IV .Q10H [facility] Stop: 11/22/17 22:29 Last Admin: 09/23/17 23:29 Dose: 100 mls/hr Cefepime HCl 1 gm/ Dextrose 50 mls @ 100 mls/hr IV Q12H [facility] Stop: 11/22/17 21:59 Last Infusion: 09/24/17 02:38 Dose: Infused Influenza Virus Vaccine (Fluarix) 0.5 ml IM .ONCE ONE Stop: 09/24/17 12:01 Ipratropium [place] (Atrovent Neb 0.5mg/2.5ml) 0.5 mg IH QIDRT [facility] Stop: 11/23/17 06:59 Last Admin: 09/24/17 07:10 Dose: 0.5 mg Levothyroxine Sodium 0.1 mg/ (Levothyroxine Sodium 0.025 mg) 0.125 mg PO QDAC [facility] Stop: 11/23/17 07:59 Lorazepam (Ativan) 1 mg PO BID PRN; Protocol PRN Reason: Anxiety Stop: 11/22/17 22:21 Lorazepam (Ativan) 1 mg IV Q4H PRN; Protocol PRN Reason: Seizure Stop: 11/22/17 22:23 Methotrexate (Methotrexate) 2.5 mg PO QWEEK 0730 [facility] PRN Reason: Protocol Stop: 11/23/17 07:59 Mineral Oil (Mineral Oil 30 Ml) 30 ml PO BID [facility] Stop: 11/23/17 08:59 Miscellaneous (Clobazam [Onfi]) 1 tab PO BID [facility] Stop: 11/23/17 08:59 Polyethylene Glycol (Miralax) 17 gm PO DAILY [facility] Stop: 11/23/17 08:59 Rifaximin (Xifaxan) 200 mg PO BID [facility] Stop: 11/23/17 08:59 Tamsulosin HCl (Flomax) 0.4 mg PO HS [facility] Stop: 11/23/17 20:59 HEENT: Atraumatic Neck: Supple Cardiovascular: Regular rate Abdomen: Bowel sounds, Distended, Other (markedly distended abdomen, tympanic percussion), no Tender, no Mass, no Guarding Assessment/Plan - Assessment Assessment: # Fecal impaction # Sigmoid colon dilation to 18cm # Cerebral Palsey and mental retardation Pt had been admitted several times in the recent past for fecal impactions, and has responded in the past to laxatives (from above and below). The pt has had a colonoscopy in 2017 as per report, and noted only stool in the colon, no obstructing mass. Sigmoid colon currently 18cm, massively dilated, and there is a distal impaction. We will again attempt decompression with enemas and oral laxatives, although if this is unsuccessful, the pt will require a surgical consultation to avoid impending perforation. Colonoscopy is not an option as stool is not able to suction through the scope channel. Plan: - RN will attempt digital dissempaction first - fleet enema x 1, then 500cc tap water enema every 4 hours - miralax oral route bid - pt was given amitiza prior, but unclear whether this was continued on dc. Hold now until impaction resolves - surgery consultation appropriate given the size of the sigmoid colon, see above - NPO
[2017-09-24] MEDS ORDERED: POLYETHYLENE GLYCOL 3350 17 GM PACK PO SCH (09:00)
[2017-09-24] MEDS ORDERED: Levothyroxine 0.125 Mg Tab PO SCH (09:00)
[2017-09-24] MEDS ORDERED: CLOBAZAM PO SCH (09:00)
[2017-09-24] MEDS ORDERED: RIFAXIMIN PO SCH (09:00)
--- NOTE | 2017-09-24 09:09 | Diagnostic Imaging Report ---
CT abdomen and pelvis without intravenous contrast Indication: Abdominal pain Comparison: CT abdomen and pelvis on 09/05/[address] examinations dating back to 01/26/2016 Technique: Axial images were obtained from the lung bases to the bilateral proximal femurs without IV contrast. Coronal reconstructions were made. total DLP: 1044, [id number] FINDINGS: Bibasal infiltrates are noted. Atelectatic changes of the lung bases are also noted. There is elevation of the right hemidiaphragm. There is massive distention of the sigmoid colon measuring up to 17 cm with severe distal fecal impaction. There may have been previous surgery along the mid sigmoid colon. There is mild distal sigmoid and rectal wall thickening. There are diffuse distended loops of bowel proximally in greatest within large bowel loops with moderate stool noted and and air-fluid levels. No evidence of gross free abdominal air. There is mass effect upon the urinary bladder with leftward and anterior displacement of the urinary bladder. The urinary bladder is collapsed containing a Suggs catheter and pockets of gas also noted. Assessment of the solid organs is limited due to patient distended colon. No obvious focal hepatic lesions. No focal splenic lesions. Calcifications are seen which are probably adjacent to pancreas and may represent splenic artery calcifications. No focal adrenal lesions. Punctate right renal calcification is noted. Left renal scarring is noted with lobulated left renal margins. No hydronephrosis. Mild atherosclerosis is noted. No free fluid identified. Degenerative changes spine are noted with multilevel spinal compression deformities which appear to be chronic. IMPRESSION: Massive distal fecal impaction with significant distention of the sigmoid colon measuring up to 17 cm. There is also diffuse distended loops of primarily large bowel. Clinical correlation and disimpaction is recommended. There may also been previous surgery along the mid sigmoid colon. No evidence of free fluid or free air. Mild distal sigmoid and rectal wall thickening. Suggs catheter pockets of gas within collapsed urinary bladder along the left anterior pelvis. Slightly lobulated left renal borders with no discrete mass lesion identified. Similar findings were seen on prior exam. If necessary follow-up CT with IV contrast may be obtained. Bibasal infiltrates. Spinal compression deformities which appear to be chronic. Please refer to above for complete details.
[2017-09-24] MEDS: POLYETHYLENE GLYCOL 3350 17 GM PACK PO SCH ×2 (10:52→18:07)
[2017-09-24] MEDS ORDERED: Influenza Vaccine 0.5 mL Syr IM ONE (12:00)
[2017-09-24] MEDS ORDERED: Mag Sulfate 2gm/50mL Premix 2 GM/50 ML BAG IV ONE (12:14)
[2017-09-24 12:55] LABS: ALBUMIN 3.9 gm/dL (4.2-5.5); PHOSPHOROUS 3.3 mg/dL (2.5-5.0)
--- NOTE | 2017-09-24 13:47 | Internal Medicine Prog Note ---
Internal Medicine Subjective - Subjective Service Date: 09/24/17 Patient seen and examined:: with staff Patient is:: asleep Per staff patient has:: tolerating meds Internal Medicine Objective - Results Result Diagrams: 09/24/17 07:50 09/24/17 07:50 Recent Labs: Laboratory Last Values WBC 8.4 Th/cmm (4.8-10.8) 09/24/17 07:50 RBC 4.48 Mil/cmm (4.30-5.70) 09/24/17 07:50 Hgb 14.2 gm/dL (12-16) 09/24/17 07:50 Hct 43.7 % (41.0-60) 09/24/17 07:50 MCV 97.5 fl (80-99) 09/24/17 07:50 MCH 31.8 pg (26.0-30.0) H 09/24/17 07:50 MCHC Differential 32.6 pg (28.0-36.0) 09/24/17 07:50 RDW 13.7 % (11.5-20.0) 09/24/17 07:50 Plt Count 289 Th/cmm (150-400) 09/24/17 07:50 MPV 8.1 fl 09/24/17 07:50 Neutrophils % 61.9 % (40.0-80.0) 09/24/17 07:50 Lymphocytes % 17.4 % (20.0-50.0) L 09/24/17 07:50 Monocytes % 15.8 % (2.0-10.0) H 09/24/17 07:50 Eosinophils % 4.8 % (0.0-5.0) 09/24/17 07:50 Basophils % 0.1 % (0.0-2.0) 09/24/17 07:50 Sodium 133 mEq/L (136-145) L 09/24/17 07:50 Potassium 3.6 mEq/L (3.5-5.1) 09/24/17 07:50 Chloride 100 mEq/L (98-107) 09/24/17 07:50 Carbon Dioxide 24.6 mEq/L (21.0-31.0) 09/24/17 07:50 Anion Gap 12.0 (7.0-16.0) 09/24/17 07:50 BUN 9 mg/dL (7-25) 09/24/17 07:50 Creatinine 0.5 mg/dL (0.7-1.3) L 09/24/17 07:50 Est GFR ( Amer) > 60.0 ml/min (>90) 09/24/17 07:50 Est GFR (Non-Af Amer) > 60.0 ml/min 09/24/17 07:50 BUN/Creatinine Ratio 18.0 09/24/17 07:50 Glucose 92 mg/dL (70-105) 09/24/17 07:50 POC Glucose 87 MG/DL (70 - 105) 09/23/17 23:16 Calcium 9.6 mg/dL (8.6-10.3) 09/24/17 07:50 Phosphorus 3.3 mg/dL (2.5-5.0) 09/24/17 07:50 Magnesium 1.6 mg/dL (1.9-2.7) L 09/24/17 07:50 Total Bilirubin 0.5 mg/dL (0.3-1.0) 09/24/17 07:50 Direct Bilirubin 0.11 mg/dL (0.0-0.2) 09/23/17 20:53 AST 12 U/L (13-39) L 09/24/17 07:50 ALT 12 U/L (7-52) 09/24/17 07:50 Alkaline Phosphatase 85 U/L (34-104) 09/24/17 07:50 Total Protein 6.7 gm/dL (6.0-8.3) 09/24/17 07:50 Albumin 3.9 gm/dL (4.2-5.5) L 09/24/17 07:50 Globulin 2.9 gm/dL 09/24/17 07:50 Albumin/Globulin Ratio 1.3 (1.0-1.8) 09/24/17 07:50 Triglycerides 59 mg/dL (<150) 09/24/17 07:50 Cholesterol 134 mg/dL (<200) 09/24/17 07:50 Lipase 17 U/L (11-82) 09/23/17 20:53 TSH 1.32 uIU/ml (0.34-5.60) 09/24/17 07:50 Urine Source [place] 09/23/17 20:33 Urine Color YELLOW 09/23/17 20:33 Urine Clarity CLOUDY (CLEAR) 09/23/17 20:33 Urine pH 6.5 (4.6 - 8.0) 09/23/17 20:33 Ur Specific [place] 1.020 (1.005-1.030) 09/23/17 20:33 Urine Protein 30 mg/dL (NEGATIVE) H 09/23/17 20:33 Urine Glucose (UA) NEGATIVE mg/dL (NEGATIVE) 09/23/17 20:33 Urine Ketones NEGATIVE mg/dL (NEGATIVE) 09/23/17 20:33 Urine Blood SMALL (NEGATIVE) H 09/23/17 20:33 Urine Nitrate POSITIVE (NEGATIVE) H 09/23/17 20:33 Urine Bilirubin NEGATIVE (NEGATIVE) 09/23/17 20:33 Urine Urobilinogen 0.2 E.U./dL (0.2 - 1.0) 09/23/17 20:33 Ur Leukocyte Esterase LARGE (NEGATIVE) H 09/23/17 20:33 Urine RBC 5-10 /hpf (0-5) H 09/23/17 20:33 Urine WBC 50-100 /hpf (0-5) H 09/23/17 20:33 Ur Epithelial Cells RARE /lpf (FEW) 09/23/17 20:33 Urine Bacteria MANY /hpf (NONE SEEN) H 09/23/17 20:33 - Physical Exam Vitals and I&O: Vital Signs Temp 96.9 F 09/24/17 12:00 Pulse 65 09/24/17 12:44 Resp 18 09/24/17 12:44 BP 119/73 09/24/17 12:00 Pulse Ox 98 09/24/17 12:44 Intake & Output 09/23/17 09/24/17 09/24/17 18:59 06:59 18:59 Intake Total 50 Balance 50 Weight (lbs) 170 lb 1.6 oz Intake: Intake, IV Amount 50 Cefepime 1 gm In Dextrose 50 5% 50 ml @ 100 mls/hr IV Q12H [facility] Rx#:[id number] Other: Stool Characteristics Soft Active Medications: Current Medications Acetaminophen (Tylenol) 650 mg PO Q4H PRN PRN Reason: Pain Or Fever above 101 Stop: 11/22/17 22:23 Albuterol Sulfate (Albuterol 2.5mg/3ml Neb Ud) 2.5 mg HHN QIDRT [facility] Stop: 11/23/17 06:59 Last Admin: 09/24/17 12:43 Dose: 2.5 mg Bisacodyl (Dulcolax 10 Mg Supp) 10 mg RC DAILY PRN PRN Reason: Constipation Stop: 11/22/17 22:21 Dextrose/Sodium Chloride (D5-0.9%Ns) 1,000 mls @ 100 mls/hr IV .Q10H [facility] Stop: 11/22/17 22:29 Last Admin: 09/23/17 23:29 Dose: 100 mls/hr Cefepime HCl 1 gm/ Dextrose 50 mls @ 100 mls/hr IV Q12H [facility] Stop: 11/22/17 21:59 Last Admin: 09/24/17 12:13 Dose: 100 mls/hr Magnesium Sulfate (Magnesium Sulfate Premix) 2 gm in 50 mls @ 25 mls/hr IV X1 ONE Stop: 09/24/17 14:13 Levetiracetam 500 mg/ Sodium (Chloride) 105 mls @ 400 mls/hr IV Q12HR@1000, 2200 [facility] Stop: 11/23/17 12:14 Last Admin: 09/24/17 13:10 Dose: 400 mls/hr Ipratropium [place] (Atrovent Neb 0.5mg/2.5ml) 0.5 mg IH QIDRT [facility] Stop: 11/23/17 06:59 Last Admin: 09/24/17 12:44 Dose: 0.5 mg Levothyroxine Sodium 0.1 mg/ (Levothyroxine Sodium 0.025 mg) 0.125 mg PO QDAC [facility] Stop: 11/23/17 07:59 Last Admin: 09/24/17 10:51 Dose: Not Given Lorazepam (Ativan) 1 mg PO BID PRN; Protocol PRN Reason: Anxiety Stop: 11/22/17 22:21 Lorazepam (Ativan) 1 mg IV Q4H PRN; Protocol PRN Reason: Seizure Stop: 11/22/17 22:23 Methotrexate (Methotrexate) 2.5 mg PO QWEEK 0730 [facility] PRN Reason: Protocol Stop: 11/23/17 07:59 Last Admin: 09/24/17 10:51 Dose: Not Given Mineral Oil (Mineral Oil 30 Ml) 30 ml PO BID [facility] Stop: 11/23/17 08:59 Last Admin: 09/24/17 10:52 Dose: Not Given Miscellaneous (Clobazam [Onfi]) 1 tab PO BID [facility] Stop: 11/23/17 08:59 Miscellaneous (Ppn Per Pharmacy) 1 ea [facility] PRN PRN PRN Reason: PROTOCOL Stop: 11/23/17 12:12 Polyethylene Glycol (Miralax) 17 gm PO BID [facility] Stop: 11/23/17 08:59 Last Admin: 09/24/17 10:52 Dose: Not Given Rifaximin (Xifaxan) 200 mg PO BID [facility] Stop: 11/23/17 08:59 Last Admin: 09/24/17 10:52 Dose: Not Given Tamsulosin HCl (Flomax) 0.4 mg PO HS [facility] Stop: 11/23/17 20:59 General: weak HEENT: NC/AT, PERRLA Lungs: CTAB Cardiovascular: RRR, Normal S1, Normal S2, without murmur Abdomen: distended Neurological: bedbound Internal Medicine Assmt/Plan - Assessment Assessment: abdominal pain abdominal distention toxic bjorn colon acute uti hyponatremia acute dehydration MR cp leukocytosis seizure protein calorie malnutrition generalized weakness - Plan Plan: tap water enema q4h as per GI digital rectal impaction was done by nurse and minimal BM cbc/bmp in am continue current orders
[2017-09-24] MEDS ORDERED: Amino Acids 3% / Electrolytes 1,000 ML IV SCH (16:00)
[2017-09-24] MEDS ORDERED: D5-0.9%NS 1,000 ML IV SCH (16:00)
[2017-09-25 05:28] LABS: % BASOPHILS 2.1 % (0.0-2.0); % EOSINOPHILS 7.8 % (0.0-5.0); % LYMPHOCYTES 21.7 % (20.0-50.0); % MONOCYTES 14.4 % (2.0-10.0); BASOPHILE ABSOLUTE 0.1 Th/cumm (0-0.2); EOSINOPHILE ABSOLUTE 0.5 Th/cmm (0.1-0.4); HEMATOCRIT 41.5 % (41.0-60); HEMOGLOBIN 13.7 gm/dL (12-16); LYMPHOCYTE ABSOLUTE 1.3 Th/cmm (1.5-3.0); MEAN CELL VOLUME 98.2 fl (80-99); MEAN CORPUSCULAR HEMOGLOBIN 32.4 pg (26.0-30.0); MEAN PLATELET VOLUME 7.7 fl; MONOCYTE ABSOLUTE 0.8 Th/cmm (0.3-1.0); NEUTROPHILE ABSOLUTE 3.2 Th/cmm (1.8-8.0); PLATELET COUNT 322 Th/cmm (150-400); RED BLOOD COUNT 4.22 Mil/cmm (4.30-5.70); RED CELL DISTRIBUTION WIDTH 13.8 % (11.5-20.0); WHITE BLOOD COUNT 5.9 Th/cmm (4.8-10.8)
[2017-09-25 05:48] LABS: ALB/GLOB RATIO 1.3 (1.0-1.8); ALBUMIN 3.6 gm/dL (4.2-5.5); ALKALINE PHOSPHATASE 81 U/L (34-104); ANION GAP 12.1 (7.0-16.0); BILIRUBIN,TOTAL 0.4 mg/dL (0.3-1.0); BUN - UREA NITROGEN 5 mg/dL (7-25); CALCIUM SERUM 9.2 mg/dL (8.6-10.3); CARBON DIOXIDE 22.6 mEq/L (21.0-31.0); CHLORIDE 105 mEq/L (98-107); CREATININE - SERUM 0.5 mg/dL (0.7-1.3); GFR AFRICAN-AMERICAN > 60.0 ml/min (>90); GFR NON AFRICAN-AMERICAN > 60.0 ml/min; GLUCOSE 91 mg/dL (70-105); MAGNESIUM 1.9 mg/dL (1.9-2.7); PHOSPHOROUS 3.1 mg/dL (2.5-5.0); POTASSIUM SERUM 3.7 mEq/L (3.5-5.1); SGOT 12 U/L (13-39); SGPT/ALT 11 U/L (7-52); SODIUM SERUM 136 mEq/L (136-145); TOTAL PROTEIN,SERUM 6.3 gm/dL (6.0-8.3)
[2017-09-25] MEDS: Albuterol Nebulizer 2.5mg/3mL HHN SCH ×4 (07:12→19:27)
[2017-09-25] MEDS: Ipratropium Neb 0.5 mg/2.5 mL UD IH SCH ×4 (07:12→19:27)
--- NOTE | 2017-09-25 08:55 | GI Progress Note ---
Subjective - Review of Systems Subjective: Pt had a few enemas yesterday, but also was able to refuse several of them and his po medications Objective - Results Result Diagrams: 09/25/17 05:05 09/25/17 05:05 Recent Labs: Laboratory Last Values WBC 5.9 Th/cmm (4.8-10.8) 09/25/17 05:05 RBC 4.22 Mil/cmm (4.30-5.70) L 09/25/17 05:05 Hgb 13.7 gm/dL (12-16) 09/25/17 05:05 Hct 41.5 % (41.0-60) 09/25/17 05:05 MCV 98.2 fl (80-99) 09/25/17 05:05 MCH 32.4 pg (26.0-30.0) H 09/25/17 05:05 MCHC Differential 33.0 pg (28.0-36.0) 09/25/17 05:05 RDW 13.8 % (11.5-20.0) 09/25/17 05:05 Plt Count 322 Th/cmm (150-400) 09/25/17 05:05 MPV 7.7 fl 09/25/17 05:05 Neutrophils % 54.0 % (40.0-80.0) 09/25/17 05:05 Lymphocytes % 21.7 % (20.0-50.0) 09/25/17 05:05 Monocytes % 14.4 % (2.0-10.0) H 09/25/17 05:05 Eosinophils % 7.8 % (0.0-5.0) H 09/25/17 05:05 Basophils % 2.1 % (0.0-2.0) H 09/25/17 05:05 Sodium 136 mEq/L (136-145) 09/25/17 05:05 Potassium 3.7 mEq/L (3.5-5.1) 09/25/17 05:05 Chloride 105 mEq/L (98-107) 09/25/17 05:05 Carbon Dioxide 22.6 mEq/L (21.0-31.0) 09/25/17 05:05 Anion Gap 12.1 (7.0-16.0) 09/25/17 05:05 BUN 5 mg/dL (7-25) L 09/25/17 05:05 Creatinine 0.5 mg/dL (0.7-1.3) L 09/25/17 05:05 Est GFR ( Amer) > 60.0 ml/min (>90) 09/25/17 05:05 Est GFR (Non-Af Amer) > 60.0 ml/min 09/25/17 05:05 BUN/Creatinine Ratio 10.0 09/25/17 05:05 Glucose 91 mg/dL (70-105) 09/25/17 05:05 POC Glucose 87 MG/DL (70 - 105) 09/23/17 23:16 Calcium 9.2 mg/dL (8.6-10.3) 09/25/17 05:05 Phosphorus 3.1 mg/dL (2.5-5.0) 09/25/17 05:05 Magnesium 1.9 mg/dL (1.9-2.7) 09/25/17 05:05 Total Bilirubin 0.4 mg/dL (0.3-1.0) 09/25/17 05:05 Direct Bilirubin 0.11 mg/dL (0.0-0.2) 09/23/17 20:53 AST 12 U/L (13-39) L 09/25/17 05:05 ALT 11 U/L (7-52) 09/25/17 05:05 Alkaline Phosphatase 81 U/L (34-104) 09/25/17 05:05 Total Protein 6.3 gm/dL (6.0-8.3) 09/25/17 05:05 Albumin 3.6 gm/dL (4.2-5.5) L 09/25/17 05:05 Globulin 2.7 gm/dL 09/25/17 05:05 Albumin/Globulin Ratio 1.3 (1.0-1.8) 09/25/17 05:05 Triglycerides 59 mg/dL (<150) 09/24/17 07:50 Cholesterol 134 mg/dL (<200) 09/24/17 07:50 Lipase 17 U/L (11-82) 09/23/17 20:53 TSH 1.32 uIU/ml (0.34-5.60) 09/24/17 07:50 Urine Source [place] 09/23/17 20:33 Urine Color YELLOW 09/23/17 20:33 Urine Clarity CLOUDY (CLEAR) 09/23/17 20:33 Urine pH 6.5 (4.6 - 8.0) 09/23/17 20:33 Ur Specific [place] 1.020 (1.005-1.030) 09/23/17 20:33 Urine Protein 30 mg/dL (NEGATIVE) H 09/23/17 20:33 Urine Glucose (UA) NEGATIVE mg/dL (NEGATIVE) 09/23/17 20:33 Urine Ketones NEGATIVE mg/dL (NEGATIVE) 09/23/17 20:33 Urine Blood SMALL (NEGATIVE) H 09/23/17 20:33 Urine Nitrate POSITIVE (NEGATIVE) H 09/23/17 20:33 Urine Bilirubin NEGATIVE (NEGATIVE) 09/23/17 20:33 Urine Urobilinogen 0.2 E.U./dL (0.2 - 1.0) 09/23/17 20:33 Ur Leukocyte Esterase LARGE (NEGATIVE) H 09/23/17 20:33 Urine RBC 5-10 /hpf (0-5) H 09/23/17 20:33 Urine WBC 50-100 /hpf (0-5) H 09/23/17 20:33 Ur Epithelial Cells RARE /lpf (FEW) 09/23/17 20:33 Urine Bacteria MANY /hpf (NONE SEEN) H 09/23/17 20:33 - Physical Exam Vitals and I&O: Vital Signs Temp 96 F 09/25/17 04:00 Pulse 66 09/25/17 07:12 Resp 18 09/25/17 07:12 BP 103/62 09/25/17 04:00 Pulse Ox 98 09/25/17 07:12 Intake & Output 09/24/17 09/25/17 09/25/17 18:59 06:59 18:59 Intake Total 285 155 Output Total 900 700 Balance -615 -545 Weight (lbs) 77.111 kg 82.871 kg Intake: Intake, IV Amount 155 155 Cefepime 1 gm In Dextrose 50 50 5% 50 ml @ 100 mls/hr IV Q12H [facility] Rx#:[id number] Levetiracetam 500 mg In 105 105 Sodium Chloride 0.9% 100 ml @ 400 mls/hr IV Q12HR@ 1000,2200 [facility] Rx#: [id number] Oral 50 TPN/PPN 80 Output: Urine 900 700 Other: # Bowel Movements 3 1 Stool Characteristics Liquid Active Medications: Current Medications Acetaminophen (Tylenol) 650 mg PO Q4H PRN PRN Reason: Pain Or Fever above 101 Stop: 11/22/17 22:23 Albuterol Sulfate (Albuterol 2.5mg/3ml Neb Ud) 2.5 mg HHN QIDRT [facility] Stop: 11/23/17 06:59 Last Admin: 09/25/17 07:12 Dose: 2.5 mg Bisacodyl (Dulcolax 10 Mg Supp) 10 mg RC DAILY PRN PRN Reason: Constipation Stop: 11/22/17 22:21 Cefepime HCl 1 gm/ Dextrose 50 mls @ 100 mls/hr IV Q12H [facility] Stop: 11/22/17 21:59 Last Infusion: 09/24/17 22:54 Dose: Infused Levetiracetam 500 mg/ Sodium (Chloride) 105 mls @ 400 mls/hr IV Q12HR@1000, 2200 [facility] Stop: 11/23/17 12:14 Last Infusion: 09/24/17 23:26 Dose: Infused Amino Acids/Electrolytes (Procalamine) 1,000 mls @ 40 mls/hr IV .Q24H [facility] Stop: 11/23/17 15:59 Last Admin: 09/24/17 17:34 Dose: 40 mls/hr Dextrose/Sodium Chloride (D5-0.9%Ns) 1,000 mls @ 60 mls/hr IV .[id number] [facility] Stop: 11/23/17 15:59 Ipratropium [place] (Atrovent Neb 0.5mg/2.5ml) 0.5 mg IH QIDRT [facility] Stop: 11/23/17 06:59 Last Admin: 09/25/17 07:12 Dose: 0.5 mg Levothyroxine Sodium 0.1 mg/ (Levothyroxine Sodium 0.025 mg) 0.125 mg PO QDAC [facility] Stop: 11/23/17 07:59 Last Admin: 09/25/17 07:00 Dose: Not Given Lorazepam (Ativan) 1 mg PO BID PRN; Protocol PRN Reason: Anxiety Stop: 11/22/17 22:21 Lorazepam (Ativan) 1 mg IV Q4H PRN; Protocol PRN Reason: Seizure Stop: 11/22/17 22:23 Last Admin: 09/24/17 22:00 Dose: 1 mg Methotrexate (Methotrexate) 2.5 mg PO QWEEK 0730 [facility] PRN Reason: Protocol Stop: 11/23/17 07:59 Last Admin: 09/24/17 10:51 Dose: Not Given Mineral Oil (Mineral Oil 30 Ml) 30 ml PO BID [facility] Stop: 11/23/17 08:59 Last Admin: 09/24/17 18:07 Dose: Not Given Miscellaneous (Clobazam [Onfi]) 1 tab PO BID CHANDAN Stop: 11/23/17 08:59 Miscellaneous (Ppn Per Pharmacy) 1 ea MC PRN PRN PRN Reason: PROTOCOL Stop: 11/23/17 12:12 Polyethylene Glycol (Miralax) 17 gm PO BID CHANDAN Stop: 11/23/17 08:59 Last Admin: 09/24/17 18:07 Dose: Not Given Rifaximin (Xifaxan) 200 mg PO BID CHANDAN Stop: 11/23/17 08:59 Last Admin: 09/24/17 18:07 Dose: Not Given Tamsulosin HCl (Flomax) 0.4 mg PO HS CHANDAN Stop: 11/23/17 20:59 Last Admin: 09/24/17 23:12 Dose: Not Given HEENT: Atraumatic Neck: Supple Cardiovascular: Regular rate Abdomen: Bowel sounds, Distended, Other (markedly distended abdomen, tympanic percussion), no Tender, no Mass, no Guarding Assessment/Plan - Assessment Assessment: # Fecal impaction # Sigmoid colon dilation to 18cm # Cerebral Palsey and mental retardation Pt had been admitted several times in the recent past for fecal impactions, and has responded in the past to laxatives (from above and below). The pt has had a colonoscopy in 2017 as per report, and noted only stool in the colon, no obstructing mass. Sigmoid colon currently 18cm as of 09/24, massively dilated, and there is a distal impaction. Pt has had several BMs since admission, and belly is softer now. Colonoscopy is not an option as stool is not able to suction through the scope channel. Plan: - cont with enemas and po laxatives today. Does not seem that pt has capacity to refuse, may want to check with psychiatry regarding this issue - HECTORB today - 500cc tap water enema every 4 hours - miralax oral route bid - pt was given amitiza prior, but unclear whether this was continued on dc. Hold now until impaction resolves - surgery consultation appropriate given the size of the sigmoid colon, see above - NPO
--- NOTE | 2017-09-25 08:59 | Diagnostic Imaging Report ---
KUB single view HISTORY: Fecal impaction. COMPARISON: 09/23/2017 FINDINGS: Severely distended loops of bowel are again noted with distal fecal impaction which has improved since prior exam. Assessment for free air is limited, however, no gross free air identified. IMPRESSION: Severe gas distended loops of bowel again noted. There has been mild decrease in distal fecal impaction when compared to recent CT examination, however, persistent distal fecal impaction is noted.
[2017-09-25] MEDS: POLYETHYLENE GLYCOL 3350 17 GM PACK PO SCH ×2 (10:40→17:08)
[2017-09-25] MEDS ORDERED: Probiotic Screen MC PRN (12:15)
--- NOTE | 2017-09-25 13:30 | Internal Medicine Prog Note ---
Internal Medicine Subjective - Subjective Service Date: 09/25/17 Patient is:: asleep Per staff patient has:: tolerating meds Internal Medicine Objective - Results Result Diagrams: 09/25/17 05:05 09/25/17 05:05 Recent Labs: Laboratory Last Values WBC 5.9 Th/cmm (4.8-10.8) 09/25/17 05:05 RBC 4.22 Mil/cmm (4.30-5.70) L 09/25/17 05:05 Hgb 13.7 gm/dL (12-16) 09/25/17 05:05 Hct 41.5 % (41.0-60) 09/25/17 05:05 MCV 98.2 fl (80-99) 09/25/17 05:05 MCH 32.4 pg (26.0-30.0) H 09/25/17 05:05 MCHC Differential 33.0 pg (28.0-36.0) 09/25/17 05:05 RDW 13.8 % (11.5-20.0) 09/25/17 05:05 Plt Count 322 Th/cmm (150-400) 09/25/17 05:05 MPV 7.7 fl 09/25/17 05:05 Neutrophils % 54.0 % (40.0-80.0) 09/25/17 05:05 Lymphocytes % 21.7 % (20.0-50.0) 09/25/17 05:05 Monocytes % 14.4 % (2.0-10.0) H 09/25/17 05:05 Eosinophils % 7.8 % (0.0-5.0) H 09/25/17 05:05 Basophils % 2.1 % (0.0-2.0) H 09/25/17 05:05 Sodium 136 mEq/L (136-145) 09/25/17 05:05 Potassium 3.7 mEq/L (3.5-5.1) 09/25/17 05:05 Chloride 105 mEq/L (98-107) 09/25/17 05:05 Carbon Dioxide 22.6 mEq/L (21.0-31.0) 09/25/17 05:05 Anion Gap 12.1 (7.0-16.0) 09/25/17 05:05 BUN 5 mg/dL (7-25) L 09/25/17 05:05 Creatinine 0.5 mg/dL (0.7-1.3) L 09/25/17 05:05 Est GFR ( Amer) > 60.0 ml/min (>90) 09/25/17 05:05 Est GFR (Non-Af Amer) > 60.0 ml/min 09/25/17 05:05 BUN/Creatinine Ratio 10.0 09/25/17 05:05 Glucose 91 mg/dL (70-105) 09/25/17 05:05 POC Glucose 87 MG/DL (70 - 105) 09/23/17 23:16 Calcium 9.2 mg/dL (8.6-10.3) 09/25/17 05:05 Phosphorus 3.1 mg/dL (2.5-5.0) 09/25/17 05:05 Magnesium 1.9 mg/dL (1.9-2.7) 09/25/17 05:05 Total Bilirubin 0.4 mg/dL (0.3-1.0) 09/25/17 05:05 Direct Bilirubin 0.11 mg/dL (0.0-0.2) 09/23/17 20:53 AST 12 U/L (13-39) L 09/25/17 05:05 ALT 11 U/L (7-52) 09/25/17 05:05 Alkaline Phosphatase 81 U/L (34-104) 09/25/17 05:05 Total Protein 6.3 gm/dL (6.0-8.3) 09/25/17 05:05 Albumin 3.6 gm/dL (4.2-5.5) L 09/25/17 05:05 Globulin 2.7 gm/dL 09/25/17 05:05 Albumin/Globulin Ratio 1.3 (1.0-1.8) 09/25/17 05:05 Prealbumin 13 mg/dL (10-36) 09/24/17 07:50 Triglycerides 59 mg/dL (<150) 09/24/17 07:50 Cholesterol 134 mg/dL (<200) 09/24/17 07:50 Lipase 17 U/L (11-82) 09/23/17 20:53 TSH 1.32 uIU/ml (0.34-5.60) 09/24/17 07:50 Urine Source [place] 09/23/17 20:33 Urine Color YELLOW 09/23/17 20:33 Urine Clarity CLOUDY (CLEAR) 09/23/17 20:33 Urine pH 6.5 (4.6 - 8.0) 09/23/17 20:33 Ur Specific [place] 1.020 (1.005-1.030) 09/23/17 20:33 Urine Protein 30 mg/dL (NEGATIVE) H 09/23/17 20:33 Urine Glucose (UA) NEGATIVE mg/dL (NEGATIVE) 09/23/17 20:33 Urine Ketones NEGATIVE mg/dL (NEGATIVE) 09/23/17 20:33 Urine Blood SMALL (NEGATIVE) H 09/23/17 20:33 Urine Nitrate POSITIVE (NEGATIVE) H 09/23/17 20:33 Urine Bilirubin NEGATIVE (NEGATIVE) 09/23/17 20:33 Urine Urobilinogen 0.2 E.U./dL (0.2 - 1.0) 09/23/17 20:33 Ur Leukocyte Esterase LARGE (NEGATIVE) H 09/23/17 20:33 Urine RBC 5-10 /hpf (0-5) H 09/23/17 20:33 Urine WBC 50-100 /hpf (0-5) H 09/23/17 20:33 Ur Epithelial Cells RARE /lpf (FEW) 09/23/17 20:33 Urine Bacteria MANY /hpf (NONE SEEN) H 09/23/17 20:33 Rheumatoid Factor 31.5 IU/mL (0.0-13.9) H 09/24/17 07:50 - Physical Exam Vitals and I&O: Vital Signs Temp 96 F 09/25/17 04:00 Pulse 66 09/25/17 07:12 Resp 18 09/25/17 08:00 BP 103/62 09/25/17 04:00 Pulse Ox 98 09/25/17 07:12 Intake & Output 09/24/17 09/25/17 09/25/17 18:59 06:59 18:59 Intake Total 285 155 Output Total 900 700 Balance -301 -547 Weight (lbs) 170 lb 182 lb 11.2 oz Intake: Intake, IV Amount 155 155 Cefepime 1 gm In Dextrose 50 50 5% 50 ml @ 100 mls/hr IV Q12H [facility] Rx#:[id number] Levetiracetam 500 mg In 105 105 Sodium Chloride 0.9% 100 ml @ 400 mls/hr IV Q12HR@ 1000,2200 [facility] Rx#: [id number] Oral 50 TPN/PPN 80 Output: Urine 900 700 Other: # Bowel Movements 3 1 Stool Characteristics Liquid Active Medications: Current Medications Acetaminophen (Tylenol) 650 mg PO Q4H PRN PRN Reason: Pain Or Fever above 101 Stop: 11/22/17 22:23 Albuterol Sulfate (Albuterol 2.5mg/3ml Neb Ud) 2.5 mg HHN QIDRT [facility] Stop: 11/23/17 06:59 Last Admin: 09/25/17 07:12 Dose: 2.5 mg Bisacodyl (Dulcolax 10 Mg Supp) 10 mg RC DAILY PRN PRN Reason: Constipation Stop: 11/22/17 22:21 Cefepime HCl 1 gm/ Dextrose 50 mls @ 100 mls/hr IV Q12H [facility] Stop: 11/22/17 21:59 Last Admin: 09/25/17 09:56 Dose: 100 mls/hr Levetiracetam 500 mg/ Sodium (Chloride) 105 mls @ 400 mls/hr IV Q12HR@1000, 2200 [facility] Stop: 11/23/17 12:14 Last Admin: 09/25/17 10:43 Dose: 400 mls/hr Amino Acids/Electrolytes (Procalamine) 1,000 mls @ 40 mls/hr IV .Q24H [facility] Stop: 11/23/17 15:59 Last Admin: 09/24/17 17:34 Dose: 40 mls/hr Dextrose/Sodium Chloride (D5-0.9%Ns) 1,000 mls @ 60 mls/hr IV .[id number] [facility] Stop: 11/23/17 15:59 Ipratropium [place] (Atrovent Neb 0.5mg/2.5ml) 0.5 mg IH QIDRT [facility] Stop: 11/23/17 06:59 Last Admin: 09/25/17 07:12 Dose: 0.5 mg Lactobacillus Rhamnosus (Culturelle 15b) 1 each PO DAILY [facility] Stop: 11/25/17 08:59 Levothyroxine Sodium 0.1 mg/ (Levothyroxine Sodium 0.025 mg) 0.125 mg PO QDAC [facility] Stop: 11/23/17 07:59 Last Admin: 09/25/17 07:00 Dose: Not Given Lorazepam (Ativan) 1 mg PO BID PRN; Protocol PRN Reason: Anxiety Stop: 11/22/17 22:21 Lorazepam (Ativan) 1 mg IV Q4H PRN; Protocol PRN Reason: Seizure Stop: 11/22/17 22:23 Last Admin: 09/24/17 22:00 Dose: 1 mg Methotrexate (Methotrexate) 2.5 mg PO QWEEK 0730 [facility] PRN Reason: Protocol Stop: 11/23/17 07:59 Last Admin: 09/24/17 10:51 Dose: Not Given Mineral Oil (Mineral Oil 30 Ml) 30 ml PO BID [facility] Stop: 11/23/17 08:59 Last Admin: 09/25/17 10:37 Dose: 30 ml Miscellaneous (Clobazam [Onfi]) 1 tab PO BID [facility] Stop: 11/23/17 08:59 Miscellaneous (Ppn Per Pharmacy) 1 ea PRN PRN PRN Reason: PROTOCOL Stop: 11/23/17 12:12 Miscellaneous (Probiotic Screen) 1 ea PRN PRN PRN Reason: PROTOCOL Stop: 11/24/17 12:14 Polyethylene Glycol (Miralax) 17 gm PO BID [facility] Stop: 11/23/17 08:59 Last Admin: 09/25/17 10:40 Dose: 17 gm Rifaximin (Xifaxan) 200 mg PO BID [facility] Stop: 11/23/17 08:59 Last Admin: 09/25/17 10:38 Dose: 200 mg Simethicone (Mylicon) 80 mg PO QID PRN PRN Reason: Gas Stop: 11/24/17 12:58 Tamsulosin HCl (Flomax) 0.4 mg PO HS [facility] Stop: 11/23/17 20:59 Last Admin: 09/24/17 23:12 Dose: Not Given General: weak HEENT: NC/AT, PERRLA Lungs: CTAB Cardiovascular: RRR, Normal S1, Normal S2, without murmur Abdomen: distended Neurological: bedbound Internal Medicine Assmt/Plan - Assessment Assessment: abdominal pain abdominal distention toxic bjorn colon acute uti hyponatremia acute dehydration MR cp leukocytosis seizure protein calorie malnutrition generalized weakness - Plan Plan: continue with laxatives gi follow up cbc/bmp in am continue current orders
[2017-09-25] MEDS ORDERED: [UNRECOGNIZED DRUG - OTHER] IV SCH (15:00)
[2017-09-25] MEDS ORDERED: DEXTROSE 20% IV SCH (15:00)
[2017-09-25] MEDS ORDERED: AMINO ACIDS IV SCH (15:00)
[2017-09-25] MEDS ORDERED: MULTIVITAMIN IV SCH (15:00)
[2017-09-26 05:29] LABS: % EOSINOPHILS 9.3 % (0.0-5.0); % LYMPHOCYTES 20.1 % (20.0-50.0); % MONOCYTES 13.9 % (2.0-10.0); % NEUTROPHILS 56.7 % (40.0-80.0); EOSINOPHILE ABSOLUTE 0.6 Th/cmm (0.1-0.4); HEMATOCRIT 44.1 % (41.0-60); HEMOGLOBIN 14.5 gm/dL (12-16); LYMPHOCYTE ABSOLUTE 1.3 Th/cmm (1.5-3.0); MEAN CELL VOLUME 97.9 fl (80-99); MEAN CORPUSCULAR HEMOGLOBIN 32.2 pg (26.0-30.0); MEAN CORPUSCULAR HGB CONC 32.9 pg (28.0-36.0); MEAN PLATELET VOLUME 7.8 fl; MONOCYTE ABSOLUTE 0.9 Th/cmm (0.3-1.0); NEUTROPHILE ABSOLUTE 3.6 Th/cmm (1.8-8.0); PLATELET COUNT 331 Th/cmm (150-400); RED BLOOD COUNT 4.51 Mil/cmm (4.30-5.70); RED CELL DISTRIBUTION WIDTH 13.3 % (11.5-20.0); WHITE BLOOD COUNT 6.4 Th/cmm (4.8-10.8)
[2017-09-26 05:40] LABS: ANION GAP 9.6 (7.0-16.0); BUN - UREA NITROGEN 6 mg/dL (7-25); CALCIUM SERUM 9.3 mg/dL (8.6-10.3); CARBON DIOXIDE 26.8 mEq/L (21.0-31.0); CHLORIDE 105 mEq/L (98-107); CREATININE - SERUM 0.5 mg/dL (0.7-1.3); GFR AFRICAN-AMERICAN > 60.0 ml/min (>90); GFR NON AFRICAN-AMERICAN > 60.0 ml/min; GLUCOSE 110 mg/dL (70-105); POTASSIUM SERUM 3.4 mEq/L (3.5-5.1); SODIUM SERUM 138 mEq/L (136-145)
[2017-09-26] MEDS: Albuterol Nebulizer 2.5mg/3mL HHN SCH ×4 (07:34→18:40)
[2017-09-26] MEDS: Ipratropium Neb 0.5 mg/2.5 mL UD IH SCH ×4 (07:34→18:40)
[2017-09-26] MEDS: POLYETHYLENE GLYCOL 3350 17 GM PACK PO SCH ×2 (09:28→18:18)
[2017-09-26] MEDS: Lactobacillus Rhamnosus GG 15 Billion CFU CAP.SPRINK PO SCH (09:28)
[2017-09-26] MEDS ORDERED: KCL 20mEq/100mL Premix 20 MEQ/100 ML PIGGYBACK IV ONE (10:00)
--- NOTE | 2017-09-26 10:33 | GI Progress Note ---
Subjective - Review of Systems Service Date: 09/26/17 Subjective: Watery stools last night, continues to have enemas Objective - Results Result Diagrams: 09/26/17 05:00 09/26/17 05:00 Recent Labs: Laboratory Last Values WBC 6.4 Th/cmm (4.8-10.8) 09/26/17 05:00 RBC 4.51 Mil/cmm (4.30-5.70) 09/26/17 05:00 Hgb 14.5 gm/dL (12-16) 09/26/17 05:00 Hct 44.1 % (41.0-60) 09/26/17 05:00 MCV 97.9 fl (80-99) 09/26/17 05:00 MCH 32.2 pg (26.0-30.0) H 09/26/17 05:00 MCHC Differential 32.9 pg (28.0-36.0) 09/26/17 05:00 RDW 13.3 % (11.5-20.0) 09/26/17 05:00 Plt Count 331 Th/cmm (150-400) 09/26/17 05:00 MPV 7.8 fl 09/26/17 05:00 Neutrophils % 56.7 % (40.0-80.0) 09/26/17 05:00 Lymphocytes % 20.1 % (20.0-50.0) 09/26/17 05:00 Monocytes % 13.9 % (2.0-10.0) H 09/26/17 05:00 Eosinophils % 9.3 % (0.0-5.0) H 09/26/17 05:00 Basophils % 0.0 % (0.0-2.0) 09/26/17 05:00 Sodium 138 mEq/L (136-145) 09/26/17 05:00 Potassium 3.4 mEq/L (3.5-5.1) L 09/26/17 05:00 Chloride 105 mEq/L (98-107) 09/26/17 05:00 Carbon Dioxide 26.8 mEq/L (21.0-31.0) 09/26/17 05:00 Anion Gap 9.6 (7.0-16.0) 09/26/17 05:00 BUN 6 mg/dL (7-25) L 09/26/17 05:00 Creatinine 0.5 mg/dL (0.7-1.3) L 09/26/17 05:00 Est GFR ( Amer) > 60.0 ml/min (>90) 09/26/17 05:00 Est GFR (Non-Af Amer) > 60.0 ml/min 09/26/17 05:00 BUN/Creatinine Ratio 12.0 09/26/17 05:00 Glucose 110 mg/dL (70-105) H 09/26/17 05:00 POC Glucose 87 MG/DL (70 - 105) 09/23/17 23:16 Calcium 9.3 mg/dL (8.6-10.3) 09/26/17 05:00 Phosphorus 3.1 mg/dL (2.5-5.0) 09/25/17 05:05 Magnesium 1.9 mg/dL (1.9-2.7) 09/25/17 05:05 Total Bilirubin 0.4 mg/dL (0.3-1.0) 09/25/17 05:05 Direct Bilirubin 0.11 mg/dL (0.0-0.2) 09/23/17 20:53 AST 12 U/L (13-39) L 09/25/17 05:05 ALT 11 U/L (7-52) 09/25/17 05:05 Alkaline Phosphatase 81 U/L (34-104) 09/25/17 05:05 Total Protein 6.3 gm/dL (6.0-8.3) 09/25/17 05:05 Albumin 3.6 gm/dL (4.2-5.5) L 09/25/17 05:05 Globulin 2.7 gm/dL 09/25/17 05:05 Albumin/Globulin Ratio 1.3 (1.0-1.8) 09/25/17 05:05 Prealbumin 13 mg/dL (10-36) 09/24/17 07:50 Triglycerides 59 mg/dL (<150) 09/24/17 07:50 Cholesterol 134 mg/dL (<200) 09/24/17 07:50 Lipase 17 U/L (11-82) 09/23/17 20:53 TSH 1.32 uIU/ml (0.34-5.60) 09/24/17 07:50 Urine Source [place] 09/23/17 20:33 Urine Color YELLOW 09/23/17 20:33 Urine Clarity CLOUDY (CLEAR) 09/23/17 20:33 Urine pH 6.5 (4.6 - 8.0) 09/23/17 20:33 Ur Specific [place] 1.020 (1.005-1.030) 09/23/17 20:33 Urine Protein 30 mg/dL (NEGATIVE) H 09/23/17 20:33 Urine Glucose (UA) NEGATIVE mg/dL (NEGATIVE) 09/23/17 20:33 Urine Ketones NEGATIVE mg/dL (NEGATIVE) 09/23/17 20:33 Urine Blood SMALL (NEGATIVE) H 09/23/17 20:33 Urine Nitrate POSITIVE (NEGATIVE) H 09/23/17 20:33 Urine Bilirubin NEGATIVE (NEGATIVE) 09/23/17 20:33 Urine Urobilinogen 0.2 E.U./dL (0.2 - 1.0) 09/23/17 20:33 Ur Leukocyte Esterase LARGE (NEGATIVE) H 09/23/17 20:33 Urine RBC 5-10 /hpf (0-5) H 09/23/17 20:33 Urine WBC 50-100 /hpf (0-5) H 09/23/17 20:33 Ur Epithelial Cells RARE /lpf (FEW) 09/23/17 20:33 Urine Bacteria MANY /hpf (NONE SEEN) H 09/23/17 20:33 Rheumatoid Factor 31.5 IU/mL (0.0-13.9) H 09/24/17 07:50 - Physical Exam Vitals and I&O: Vital Signs Temp 96.4 F 09/26/17 05:57 Pulse 66 09/26/17 07:34 Resp 18 09/26/17 07:34 BP 157/85 09/26/17 05:57 Pulse Ox 98 09/26/17 07:34 Intake & Output 09/25/17 09/26/17 09/26/17 18:59 06:59 18:59 Intake Total 455 1004 Output Total 1200 Balance -745 1004 Weight (lbs) 82.554 kg 82.554 kg Intake: Intake, IV Amount 155 Cefepime 1 gm In Dextrose 50 5% 50 ml @ 100 mls/hr IV Q12H [facility] Rx#:[id number] Levetiracetam 500 mg In 105 Sodium Chloride 0.9% 100 ml @ 400 mls/hr IV Q12HR@ 1000,2200 [facility] Rx#: [id number] Oral 300 500 TPN/PPN 504 Output: Urine 1200 Other: # Bowel Movements 2 1 Active Medications: Current Medications Acetaminophen (Tylenol) 650 mg PO Q4H PRN PRN Reason: Pain Or Fever above 101 Stop: 11/22/17 22:23 Albuterol Sulfate (Albuterol 2.5mg/3ml Neb Ud) 2.5 mg HHN QIDRT [facility] Stop: 11/23/17 06:59 Last Admin: 09/26/17 07:34 Dose: 2.5 mg Bisacodyl (Dulcolax 10 Mg Supp) 10 mg RC DAILY PRN PRN Reason: Constipation Stop: 11/22/17 22:21 Cefepime HCl 1 gm/ Dextrose 50 mls @ 100 mls/hr IV Q12H [facility] Stop: 11/22/17 21:59 Last Admin: 09/25/17 22:21 Dose: 100 mls/hr Levetiracetam 500 mg/ Sodium (Chloride) 105 mls @ 400 mls/hr IV Q12HR@1000, 2200 [facility] Stop: 11/23/17 12:14 Last Admin: 09/25/17 22:20 Dose: 400 mls/hr Dextrose/Sodium Chloride (D5-0.9%Ns) 1,000 mls @ 60 mls/hr IV .[id number] [facility] Stop: 09/26/17 15:00 Multivitamins/Minerals 10 ml/Amino Acids/Electrolytes/Dextrose/ Fat Emulsion Intravenous 1,110 mls @ 42 mls/hr IV .Q24H [facility] Stop: 09/26/17 15:00 Last Admin: 09/25/17 15:50 Dose: 42 mls/hr Multivitamins/Minerals 5 ml/Dextrose/ Amino Acids/Electrolytes/ Fat Emulsion Intravenous 2,605 mls @ 100 mls/hr IV .Q24H [facility] Stop: 11/25/17 14:59 Sodium Chloride (Nacl 0.9%) 250 mls @ 10 mls/hr IV Q24H [facility] Stop: 11/25/17 14:59 Potassium Chloride (Potassium Chloride) 20 meq in 100 mls @ 50 mls/hr IV ONCE ONE Stop: 09/26/17 11:59 Ipratropium [place] (Atrovent Neb 0.5mg/2.5ml) 0.5 mg IH QIDRT [facility] Stop: 11/23/17 06:59 Last Admin: 09/26/17 07:34 Dose: 0.5 mg Lactobacillus Rhamnosus (Culturelle 15b) 1 each PO DAILY [facility] Stop: 11/25/17 08:59 Last Admin: 09/26/17 09:28 Dose: 1 each Levothyroxine Sodium 0.1 mg/ (Levothyroxine Sodium 0.025 mg) 0.125 mg PO QDAC [facility] Stop: 11/23/17 07:59 Last Admin: 09/26/17 06:34 Dose: 0.125 mg Lorazepam (Ativan) 1 mg PO BID PRN; Protocol PRN Reason: Anxiety Stop: 11/22/17 22:21 Lorazepam (Ativan) 1 mg IV Q4H PRN; Protocol PRN Reason: Seizure Stop: 11/22/17 22:23 Last Admin: 09/26/17 09:28 Dose: 1 mg Methotrexate (Methotrexate) 2.5 mg PO QWEEK 0730 [facility] PRN Reason: Protocol Stop: 11/23/17 07:59 Last Admin: 09/24/17 10:51 Dose: Not Given Mineral Oil (Mineral Oil 30 Ml) 30 ml PO BID [facility] Stop: 11/23/17 08:59 Last Admin: 09/26/17 09:28 Dose: 30 ml Miscellaneous (Clobazam [Onfi]) 1 tab PO BID [facility] Stop: 11/23/17 08:59 Miscellaneous (Ppn Per Pharmacy) 1 ea PRN PRN PRN Reason: PROTOCOL Stop: 11/23/17 12:12 Miscellaneous (Probiotic Screen) 1 ea PRN PRN PRN Reason: PROTOCOL Stop: 11/24/17 12:14 Polyethylene Glycol (Miralax) 17 gm PO BID [facility] Stop: 11/23/17 08:59 Last Admin: 09/26/17 09:28 Dose: 17 gm Rifaximin (Xifaxan) 200 mg PO BID [facility] Stop: 11/23/17 08:59 Last Admin: 09/26/17 09:28 Dose: 200 mg Simethicone (Mylicon) 80 mg PO QID PRN PRN Reason: Gas Stop: 11/24/17 12:58 Tamsulosin HCl (Flomax) 0.4 mg PO HS [facility] Stop: 11/23/17 20:59 Last Admin: 09/25/17 22:24 Dose: 0.4 mg HEENT: Atraumatic Neck: Supple Cardiovascular: Regular rate Abdomen: Bowel sounds, Distended, Other (markedly distended abdomen, tympanic percussion), no Tender, no Mass, no Guarding Assessment/Plan - Assessment Assessment: # Fecal impaction # Sigmoid colon dilation to 18cm # Cerebral Palsey and mental retardation Pt had been admitted several times in the recent past for fecal impactions, and has responded in the past to laxatives (from above and below). The pt has had a colonoscopy in 2017 as per report, and noted only stool in the colon, no obstructing mass. Sigmoid colon currently 18cm as of 09/24, massively dilated, and there is a distal impaction. Pt has had several BMs since admission, and belly is softer now. Colonoscopy is not an option as stool is not able to suction through the scope channel. He is passing stool now with enemas, improving. Plan: - cont with enemas and po laxatives today. Does not seem that pt has capacity to refuse, may want to check with psychiatry regarding this issue - KUB 09/25 showed some mild improvement, still has copious amount of stool to evacuate. Cont enemas - 500cc tap water enema every 4 hours - miralax oral route bid - pt was given amitiza prior, but unclear whether this was continued on dc. Hold now until impaction resolves - surgery consultation appropriate given the size of the sigmoid colon, see above - NPO
--- NOTE | 2017-09-26 15:20 | Internal Medicine Prog Note ---
Internal Medicine Subjective - Subjective Service Date: 09/26/17 (now on ppn) Patient seen and examined:: with staff Patient is:: awake Per staff patient has:: tolerating meds Internal Medicine Objective - Results Result Diagrams: 09/26/17 05:00 09/26/17 05:00 Recent Labs: Laboratory Last Values WBC 6.4 Th/cmm (4.8-10.8) 09/26/17 05:00 RBC 4.51 Mil/cmm (4.30-5.70) 09/26/17 05:00 Hgb 14.5 gm/dL (12-16) 09/26/17 05:00 Hct 44.1 % (41.0-60) 09/26/17 05:00 MCV 97.9 fl (80-99) 09/26/17 05:00 MCH 32.2 pg (26.0-30.0) H 09/26/17 05:00 MCHC Differential 32.9 pg (28.0-36.0) 09/26/17 05:00 RDW 13.3 % (11.5-20.0) 09/26/17 05:00 Plt Count 331 Th/cmm (150-400) 09/26/17 05:00 MPV 7.8 fl 09/26/17 05:00 Neutrophils % 56.7 % (40.0-80.0) 09/26/17 05:00 Lymphocytes % 20.1 % (20.0-50.0) 09/26/17 05:00 Monocytes % 13.9 % (2.0-10.0) H 09/26/17 05:00 Eosinophils % 9.3 % (0.0-5.0) H 09/26/17 05:00 Basophils % 0.0 % (0.0-2.0) 09/26/17 05:00 Sodium 138 mEq/L (136-145) 09/26/17 05:00 Potassium 3.4 mEq/L (3.5-5.1) L 09/26/17 05:00 Chloride 105 mEq/L (98-107) 09/26/17 05:00 Carbon Dioxide 26.8 mEq/L (21.0-31.0) 09/26/17 05:00 Anion Gap 9.6 (7.0-16.0) 09/26/17 05:00 BUN 6 mg/dL (7-25) L 09/26/17 05:00 Creatinine 0.5 mg/dL (0.7-1.3) L 09/26/17 05:00 Est GFR ( Amer) > 60.0 ml/min (>90) 09/26/17 05:00 Est GFR (Non-Af Amer) > 60.0 ml/min 09/26/17 05:00 BUN/Creatinine Ratio 12.0 09/26/17 05:00 Glucose 110 mg/dL (70-105) H 09/26/17 05:00 POC Glucose 87 MG/DL (70 - 105) 09/23/17 23:16 Calcium 9.3 mg/dL (8.6-10.3) 09/26/17 05:00 Phosphorus 3.1 mg/dL (2.5-5.0) 09/25/17 05:05 Magnesium 1.9 mg/dL (1.9-2.7) 09/25/17 05:05 Total Bilirubin 0.4 mg/dL (0.3-1.0) 09/25/17 05:05 Direct Bilirubin 0.11 mg/dL (0.0-0.2) 09/23/17 20:53 AST 12 U/L (13-39) L 09/25/17 05:05 ALT 11 U/L (7-52) 09/25/17 05:05 Alkaline Phosphatase 81 U/L (34-104) 09/25/17 05:05 Total Protein 6.3 gm/dL (6.0-8.3) 09/25/17 05:05 Albumin 3.6 gm/dL (4.2-5.5) L 09/25/17 05:05 Globulin 2.7 gm/dL 09/25/17 05:05 Albumin/Globulin Ratio 1.3 (1.0-1.8) 09/25/17 05:05 Prealbumin 13 mg/dL (10-36) 09/24/17 07:50 Triglycerides 59 mg/dL (<150) 09/24/17 07:50 Cholesterol 134 mg/dL (<200) 09/24/17 07:50 Lipase 17 U/L (11-82) 09/23/17 20:53 TSH 1.32 uIU/ml (0.34-5.60) 09/24/17 07:50 Urine Source [place] 09/23/17 20:33 Urine Color YELLOW 09/23/17 20:33 Urine Clarity CLOUDY (CLEAR) 09/23/17 20:33 Urine pH 6.5 (4.6 - 8.0) 09/23/17 20:33 Ur Specific [place] 1.020 (1.005-1.030) 09/23/17 20:33 Urine Protein 30 mg/dL (NEGATIVE) H 09/23/17 20:33 Urine Glucose (UA) NEGATIVE mg/dL (NEGATIVE) 09/23/17 20:33 Urine Ketones NEGATIVE mg/dL (NEGATIVE) 09/23/17 20:33 Urine Blood SMALL (NEGATIVE) H 09/23/17 20:33 Urine Nitrate POSITIVE (NEGATIVE) H 09/23/17 20:33 Urine Bilirubin NEGATIVE (NEGATIVE) 09/23/17 20:33 Urine Urobilinogen 0.2 E.U./dL (0.2 - 1.0) 09/23/17 20:33 Ur Leukocyte Esterase LARGE (NEGATIVE) H 09/23/17 20:33 Urine RBC 5-10 /hpf (0-5) H 09/23/17 20:33 Urine WBC 50-100 /hpf (0-5) H 09/23/17 20:33 Ur Epithelial Cells RARE /lpf (FEW) 09/23/17 20:33 Urine Bacteria MANY /hpf (NONE SEEN) H 09/23/17 20:33 Rheumatoid Factor 31.5 IU/mL (0.0-13.9) H 09/24/17 07:50 - Physical Exam Vitals and I&O: Vital Signs Temp 96.4 F 09/26/17 05:57 Pulse 66 09/26/17 15:17 Resp 18 09/26/17 15:17 BP 157/85 09/26/17 05:57 Pulse Ox 98 09/26/17 15:17 Intake & Output 09/25/17 09/26/17 09/26/17 18:59 06:59 18:59 Intake Total 455 1159 50 Output Total 1200 Balance -745 1159 50 Weight (lbs) 182 lb 182 lb Intake: Intake, IV Amount 155 155 50 Cefepime 1 gm In Dextrose 50 50 50 5% 50 ml @ 100 mls/hr IV Q12H [facility] Rx#:[id number] Levetiracetam 500 mg In 105 105 Sodium Chloride 0.9% 100 ml @ 400 mls/hr IV Q12HR@ 1000,2200 [facility] Rx#: [id number] Oral 300 500 TPN/PPN 504 Output: Urine 1200 Other: # Bowel Movements 2 1 Weight Source Bedscale Bedscale Active Medications: Current Medications Acetaminophen (Tylenol) 650 mg PO Q4H PRN PRN Reason: Pain Or Fever above 101 Stop: 11/22/17 22:23 Albuterol Sulfate (Albuterol 2.5mg/3ml Neb Ud) 2.5 mg HHN QIDRT [facility] Stop: 11/23/17 06:59 Last Admin: 09/26/17 15:17 Dose: 2.5 mg Bisacodyl (Dulcolax 10 Mg Supp) 10 mg RC DAILY PRN PRN Reason: Constipation Stop: 11/22/17 22:21 Cefepime HCl 1 gm/ Dextrose 50 mls @ 100 mls/hr IV Q12H [facility] Stop: 11/22/17 21:59 Last Infusion: 09/26/17 13:34 Dose: Infused Levetiracetam 500 mg/ Sodium (Chloride) 105 mls @ 400 mls/hr IV Q12HR@1000, 2200 [facility] Stop: 11/23/17 12:14 Last Admin: 09/26/17 10:30 Dose: 400 mls/hr Multivitamins/Minerals 5 ml/Dextrose/ Amino Acids/Electrolytes/ Fat Emulsion Intravenous 2,605 mls @ 100 mls/hr IV .Q24H [facility] Stop: 11/25/17 14:59 Sodium Chloride (Nacl 0.9%) 250 mls @ 10 mls/hr IV Q24H [facility] Stop: 11/25/17 14:59 Ipratropium [place] (Atrovent Neb 0.5mg/2.5ml) 0.5 mg IH QIDRT [facility] Stop: 11/23/17 06:59 Last Admin: 09/26/17 15:17 Dose: 0.5 mg Lactobacillus Rhamnosus (Culturelle 15b) 1 each PO DAILY [facility] Stop: 11/25/17 08:59 Last Admin: 09/26/17 09:28 Dose: 1 each Levothyroxine Sodium 0.1 mg/ (Levothyroxine Sodium 0.025 mg) 0.125 mg PO QDAC [facility] Stop: 11/23/17 07:59 Last Admin: 09/26/17 06:34 Dose: 0.125 mg Lorazepam (Ativan) 1 mg PO BID PRN; Protocol PRN Reason: Anxiety Stop: 11/22/17 22:21 Lorazepam (Ativan) 1 mg IV Q4H PRN; Protocol PRN Reason: Seizure Stop: 11/22/17 22:23 Last Admin: 09/26/17 09:28 Dose: 1 mg Methotrexate (Methotrexate) 2.5 mg PO QWEEK 0730 [facility] PRN Reason: Protocol Stop: 11/23/17 07:59 Last Admin: 09/24/17 10:51 Dose: Not Given Mineral Oil (Mineral Oil 30 Ml) 30 ml PO BID [facility] Stop: 11/23/17 08:59 Last Admin: 09/26/17 09:28 Dose: 30 ml Miscellaneous (Clobazam [Onfi]) 1 tab PO BID [facility] Stop: 11/23/17 08:59 Miscellaneous (Ppn Per Pharmacy) 1 ea PRN PRN PRN Reason: PROTOCOL Stop: 11/23/17 12:12 Miscellaneous (Probiotic Screen) 1 ea PRN PRN PRN Reason: PROTOCOL Stop: 11/24/17 12:14 Polyethylene Glycol (Miralax) 17 gm PO BID [facility] Stop: 11/23/17 08:59 Last Admin: 09/26/17 09:28 Dose: 17 gm Rifaximin (Xifaxan) 200 mg PO BID [facility] Stop: 11/23/17 08:59 Last Admin: 09/26/17 09:28 Dose: 200 mg Simethicone (Mylicon) 80 mg PO QID PRN PRN Reason: Gas Stop: 11/24/17 12:58 Tamsulosin HCl (Flomax) 0.4 mg PO HS [facility] Stop: 11/23/17 20:59 Last Admin: 09/25/17 22:24 Dose: 0.4 mg General: weak HEENT: NC/AT, PERRLA Lungs: CTAB Cardiovascular: RRR, Normal S1, Normal S2, without murmur Abdomen: distended Neurological: bedbound Internal Medicine Assmt/Plan - Assessment Assessment: abdominal pain abdominal distention toxic bjorn colon acute uti hyponatremia acute dehydration MR cp leukocytosis seizure protein calorie malnutrition generalized weakness - Plan Plan: continue with ppn for nutritional support gi follow up cbc/bmp in am continue current orders
[2017-09-26] MEDS: ONFI 20MG PO SCH (18:18)
--- NOTE | 2017-09-26 18:42 | General Progress Note ---
Subjective - Review of Systems Service Date: 09/26/17 Events since last encounter: chart reviewed CT - megacolon, stool distal abdomen markedly distended, does not respond to pressure on abdomen KUB ordered Recommendation: will likely benefit from subtotal colectomy and diverting ileostomy in his condition Objective - Results Result Diagrams: 09/26/17 05:00 09/26/17 05:00 Recent Labs: Laboratory Last Values WBC 6.4 Th/cmm (4.8-10.8) 09/26/17 05:00 RBC 4.51 Mil/cmm (4.30-5.70) 09/26/17 05:00 Hgb 14.5 gm/dL (12-16) 09/26/17 05:00 Hct 44.1 % (41.0-60) 09/26/17 05:00 MCV 97.9 fl (80-99) 09/26/17 05:00 MCH 32.2 pg (26.0-30.0) H 09/26/17 05:00 MCHC Differential 32.9 pg (28.0-36.0) 09/26/17 05:00 RDW 13.3 % (11.5-20.0) 09/26/17 05:00 Plt Count 331 Th/cmm (150-400) 09/26/17 05:00 MPV 7.8 fl 09/26/17 05:00 Neutrophils % 56.7 % (40.0-80.0) 09/26/17 05:00 Lymphocytes % 20.1 % (20.0-50.0) 09/26/17 05:00 Monocytes % 13.9 % (2.0-10.0) H 09/26/17 05:00 Eosinophils % 9.3 % (0.0-5.0) H 09/26/17 05:00 Basophils % 0.0 % (0.0-2.0) 09/26/17 05:00 Sodium 138 mEq/L (136-145) 09/26/17 05:00 Potassium 3.4 mEq/L (3.5-5.1) L 09/26/17 05:00 Chloride 105 mEq/L (98-107) 09/26/17 05:00 Carbon Dioxide 26.8 mEq/L (21.0-31.0) 09/26/17 05:00 Anion Gap 9.6 (7.0-16.0) 09/26/17 05:00 BUN 6 mg/dL (7-25) L 09/26/17 05:00 Creatinine 0.5 mg/dL (0.7-1.3) L 09/26/17 05:00 Est GFR ( Amer) > 60.0 ml/min (>90) 09/26/17 05:00 Est GFR (Non-Af Amer) > 60.0 ml/min 09/26/17 05:00 BUN/Creatinine Ratio 12.0 09/26/17 05:00 Glucose 110 mg/dL (70-105) H 09/26/17 05:00 POC Glucose 87 MG/DL (70 - 105) 09/23/17 23:16 Calcium 9.3 mg/dL (8.6-10.3) 09/26/17 05:00 Phosphorus 3.1 mg/dL (2.5-5.0) 09/25/17 05:05 Magnesium 1.9 mg/dL (1.9-2.7) 09/25/17 05:05 Total Bilirubin 0.4 mg/dL (0.3-1.0) 09/25/17 05:05 Direct Bilirubin 0.11 mg/dL (0.0-0.2) 09/23/17 20:53 AST 12 U/L (13-39) L 09/25/17 05:05 ALT 11 U/L (7-52) 09/25/17 05:05 Alkaline Phosphatase 81 U/L (34-104) 09/25/17 05:05 Total Protein 6.3 gm/dL (6.0-8.3) 09/25/17 05:05 Albumin 3.6 gm/dL (4.2-5.5) L 09/25/17 05:05 Globulin 2.7 gm/dL 09/25/17 05:05 Albumin/Globulin Ratio 1.3 (1.0-1.8) 09/25/17 05:05 Prealbumin 13 mg/dL (10-36) 09/24/17 07:50 Triglycerides 59 mg/dL (<150) 09/24/17 07:50 Cholesterol 134 mg/dL (<200) 09/24/17 07:50 Lipase 17 U/L (11-82) 09/23/17 20:53 TSH 1.32 uIU/ml (0.34-5.60) 09/24/17 07:50 Urine Source [place] 09/23/17 20:33 Urine Color YELLOW 09/23/17 20:33 Urine Clarity CLOUDY (CLEAR) 09/23/17 20:33 Urine pH 6.5 (4.6 - 8.0) 09/23/17 20:33 Ur Specific [place] 1.020 (1.005-1.030) 09/23/17 20:33 Urine Protein 30 mg/dL (NEGATIVE) H 09/23/17 20:33 Urine Glucose (UA) NEGATIVE mg/dL (NEGATIVE) 09/23/17 20:33 Urine Ketones NEGATIVE mg/dL (NEGATIVE) 09/23/17 20:33 Urine Blood SMALL (NEGATIVE) H 09/23/17 20:33 Urine Nitrate POSITIVE (NEGATIVE) H 09/23/17 20:33 Urine Bilirubin NEGATIVE (NEGATIVE) 09/23/17 20:33 Urine Urobilinogen 0.2 E.U./dL (0.2 - 1.0) 09/23/17 20:33 Ur Leukocyte Esterase LARGE (NEGATIVE) H 09/23/17 20:33 Urine RBC 5-10 /hpf (0-5) H 09/23/17 20:33 Urine WBC 50-100 /hpf (0-5) H 09/23/17 20:33 Ur Epithelial Cells RARE /lpf (FEW) 09/23/17 20:33 Urine Bacteria MANY /hpf (NONE SEEN) H 09/23/17 20:33 Rheumatoid Factor 31.5 IU/mL (0.0-13.9) H 09/24/17 07:50 - Physical Exam Vitals and I&O: Vital Signs Temp 96.4 F 09/26/17 05:57 Pulse 66 09/26/17 15:17 Resp 18 09/26/17 15:17 BP 157/85 09/26/17 05:57 Pulse Ox 98 09/26/17 15:17 Intake & Output 09/25/17 09/26/17 09/26/17 18:59 06:59 18:59 Intake Total 455 1159 50 Output Total 1200 Balance -745 1159 50 Weight (lbs) 82.554 kg 82.554 kg Intake: Intake, IV Amount 155 155 50 Cefepime 1 gm In Dextrose 50 50 50 5% 50 ml @ 100 mls/hr IV Q12H [facility] Rx#:[id number] Levetiracetam 500 mg In 105 105 Sodium Chloride 0.9% 100 ml @ 400 mls/hr IV Q12HR@ 1000,2200 [facility] Rx#: [id number] Oral 300 500 TPN/PPN 504 Output: Urine 1200 Other: # Bowel Movements 2 1 Weight Source Bedscale Bedscale Active Medications: Current Medications Acetaminophen (Tylenol) 650 mg PO Q4H PRN PRN Reason: Pain Or Fever above 101 Stop: 11/22/17 22:23 Albuterol Sulfate (Albuterol 2.5mg/3ml Neb Ud) 2.5 mg HHN QIDRT [facility] Stop: 11/23/17 06:59 Last Admin: 09/26/17 15:17 Dose: 2.5 mg Bisacodyl (Dulcolax 10 Mg Supp) 10 mg RC DAILY PRN PRN Reason: Constipation Stop: 11/22/17 22:21 Cefepime HCl 1 gm/ Dextrose 50 mls @ 100 mls/hr IV Q12H [facility] Stop: 11/22/17 21:59 Last Infusion: 09/26/17 13:34 Dose: Infused Levetiracetam 500 mg/ Sodium (Chloride) 105 mls @ 400 mls/hr IV Q12HR@1000, 2200 [facility] Stop: 11/23/17 12:14 Last Admin: 09/26/17 10:30 Dose: 400 mls/hr Multivitamins/Minerals 5 ml/Dextrose/ Amino Acids/Electrolytes/ Fat Emulsion Intravenous 2,605 mls @ 100 mls/hr IV .Q24H [facility] Stop: 11/25/17 14:59 Sodium Chloride (Nacl 0.9%) 250 mls @ 10 mls/hr IV Q24H [facility] Stop: 11/25/17 14:59 Ipratropium [place] (Atrovent Neb 0.5mg/2.5ml) 0.5 mg IH QIDRT [facility] Stop: 11/23/17 06:59 Last Admin: 09/26/17 15:17 Dose: 0.5 mg Lactobacillus Rhamnosus (Culturelle 15b) 1 each PO DAILY [facility] Stop: 11/25/17 08:59 Last Admin: 09/26/17 09:28 Dose: 1 each Levothyroxine Sodium 0.1 mg/ (Levothyroxine Sodium 0.025 mg) 0.125 mg PO QDAC [facility] Stop: 11/23/17 07:59 Last Admin: 09/26/17 06:34 Dose: 0.125 mg Lorazepam (Ativan) 1 mg PO BID PRN; Protocol PRN Reason: Anxiety Stop: 11/22/17 22:21 Lorazepam (Ativan) 1 mg IV Q4H PRN; Protocol PRN Reason: Seizure Stop: 11/22/17 22:23 Last Admin: 09/26/17 09:28 Dose: 1 mg Methotrexate (Methotrexate) 2.5 mg PO QWEEK 0730 [facility] PRN Reason: Protocol Stop: 11/23/17 07:59 Last Admin: 09/24/17 10:51 Dose: Not Given Mineral Oil (Mineral Oil 30 Ml) 30 ml PO BID [facility] Stop: 11/23/17 08:59 Last Admin: 09/26/17 18:18 Dose: 30 ml Miscellaneous (Clobazam [Onfi]) 1 tab PO BID [facility] Stop: 11/23/17 08:59 Miscellaneous (Ppn Per Pharmacy) 1 ea PRN PRN PRN Reason: PROTOCOL Stop: 11/23/17 12:12 Miscellaneous (Probiotic Screen) 1 ea PRN PRN PRN Reason: PROTOCOL Stop: 11/24/17 12:14 Onfi 20mg 1 PO BID [facility] Stop: 11/25/17 16:59 Last Admin: 09/26/17 18:18 Dose: 1 Polyethylene Glycol (Miralax) 17 gm PO BID [facility] Stop: 11/23/17 08:59 Last Admin: 09/26/17 18:18 Dose: 17 gm Rifaximin (Xifaxan) 200 mg PO BID [facility] Stop: 11/23/17 08:59 Last Admin: 09/26/17 18:18 Dose: 200 mg Simethicone (Mylicon) 80 mg PO QID PRN PRN Reason: Gas Stop: 11/24/17 12:58 Tamsulosin HCl (Flomax) 0.4 mg PO HS [facility] Stop: 11/23/17 20:59 Last Admin: 09/25/17 22:24 Dose: 0.4 mg HEENT: Atraumatic Neck: Supple Cardiovascular: Regular rate Abdomen: Bowel sounds, Distended, Other (markedly distended abdomen, tympanic percussion), no Tender, no Mass, no Guarding
[2017-09-26] MEDS: TPN 8.5%-70% CUSTOM IV SCH (20:35)
[2017-09-27] MEDS: Sodium Chloride 0.9% 250 ML IV SCH ×2 (05:11→16:20)
[2017-09-27 05:48] LABS: % BASOPHILS 0.1 % (0.0-2.0); % EOSINOPHILS 7.6 % (0.0-5.0); % LYMPHOCYTES 12.2 % (20.0-50.0); % MONOCYTES 13.6 % (2.0-10.0); % NEUTROPHILS 66.5 % (40.0-80.0); EOSINOPHILE ABSOLUTE 0.9 Th/cmm (0.1-0.4); HEMATOCRIT 42.6 % (41.0-60); HEMOGLOBIN 14.2 gm/dL (12-16); LYMPHOCYTE ABSOLUTE 1.5 Th/cmm (1.5-3.0); MEAN CELL VOLUME 96.8 fl (80-99); MEAN CORPUSCULAR HEMOGLOBIN 32.3 pg (26.0-30.0); MEAN CORPUSCULAR HGB CONC 33.4 pg (28.0-36.0); MEAN PLATELET VOLUME 7.7 fl; MONOCYTE ABSOLUTE 1.6 Th/cmm (0.3-1.0); PLATELET COUNT 373 Th/cmm (150-400); RED CELL DISTRIBUTION WIDTH 13.7 % (11.5-20.0)
[2017-09-27 06:09] LABS: ANION GAP 9.5 (7.0-16.0); BUN - UREA NITROGEN 8 mg/dL (7-25); CALCIUM SERUM 9.7 mg/dL (8.6-10.3); CARBON DIOXIDE 28.5 mEq/L (21.0-31.0); CHLORIDE 100 mEq/L (98-107); CREATININE - SERUM 0.5 mg/dL (0.7-1.3); GFR AFRICAN-AMERICAN > 60.0 ml/min (>90); GFR NON AFRICAN-AMERICAN > 60.0 ml/min; GLUCOSE 102 mg/dL (70-105); MAGNESIUM 1.7 mg/dL (1.9-2.7); PHOSPHOROUS 2.4 mg/dL (2.5-5.0); SODIUM SERUM 134 mEq/L (136-145)
[2017-09-27] MEDS: Ipratropium Neb 0.5 mg/2.5 mL UD IH SCH ×4 (07:25→19:00)
[2017-09-27] MEDS: Albuterol Nebulizer 2.5mg/3mL HHN SCH ×4 (07:25→19:00)
--- NOTE | 2017-09-27 08:51 | GI Progress Note ---
Subjective - Review of Systems Service Date: 09/27/17 Subjective: GI NOTE Events noted. Objective - Results Result Diagrams: 09/27/17 05:20 09/27/17 05:20 Recent Labs: Laboratory Last Values WBC 12.0 Th/cmm (4.8-10.8) H 09/27/17 05:20 RBC 4.40 Mil/cmm (4.30-5.70) 09/27/17 05:20 Hgb 14.2 gm/dL (12-16) 09/27/17 05:20 Hct 42.6 % (41.0-60) 09/27/17 05:20 MCV 96.8 fl (80-99) 09/27/17 05:20 MCH 32.3 pg (26.0-30.0) H 09/27/17 05:20 MCHC Differential 33.4 pg (28.0-36.0) 09/27/17 05:20 RDW 13.7 % (11.5-20.0) 09/27/17 05:20 Plt Count 373 Th/cmm (150-400) 09/27/17 05:20 MPV 7.7 fl 09/27/17 05:20 Neutrophils % 66.5 % (40.0-80.0) 09/27/17 05:20 Lymphocytes % 12.2 % (20.0-50.0) L 09/27/17 05:20 Monocytes % 13.6 % (2.0-10.0) H 09/27/17 05:20 Eosinophils % 7.6 % (0.0-5.0) H 09/27/17 05:20 Basophils % 0.1 % (0.0-2.0) 09/27/17 05:20 Sodium 134 mEq/L (136-145) L 09/27/17 05:20 Potassium 4.0 mEq/L (3.5-5.1) 09/27/17 05:20 Chloride 100 mEq/L (98-107) 09/27/17 05:20 Carbon Dioxide 28.5 mEq/L (21.0-31.0) 09/27/17 05:20 Anion Gap 9.5 (7.0-16.0) 09/27/17 05:20 BUN 8 mg/dL (7-25) 09/27/17 05:20 Creatinine 0.5 mg/dL (0.7-1.3) L 09/27/17 05:20 Est GFR ( Amer) > 60.0 ml/min (>90) 09/27/17 05:20 Est GFR (Non-Af Amer) > 60.0 ml/min 09/27/17 05:20 BUN/Creatinine Ratio 16.0 09/27/17 05:20 Glucose 102 mg/dL (70-105) 09/27/17 05:20 POC Glucose 87 MG/DL (70 - 105) 09/23/17 23:16 Calcium 9.7 mg/dL (8.6-10.3) 09/27/17 05:20 Phosphorus 2.4 mg/dL (2.5-5.0) L 09/27/17 05:20 Magnesium 1.7 mg/dL (1.9-2.7) L 09/27/17 05:20 Total Bilirubin 0.4 mg/dL (0.3-1.0) 09/25/17 05:05 Direct Bilirubin 0.11 mg/dL (0.0-0.2) 09/23/17 20:53 AST 12 U/L (13-39) L 09/25/17 05:05 ALT 11 U/L (7-52) 09/25/17 05:05 Alkaline Phosphatase 81 U/L (34-104) 09/25/17 05:05 Total Protein 6.3 gm/dL (6.0-8.3) 09/25/17 05:05 Albumin 3.6 gm/dL (4.2-5.5) L 09/25/17 05:05 Globulin 2.7 gm/dL 09/25/17 05:05 Albumin/Globulin Ratio 1.3 (1.0-1.8) 09/25/17 05:05 Prealbumin 13 mg/dL (10-36) 09/24/17 07:50 Triglycerides 59 mg/dL (<150) 09/24/17 07:50 Cholesterol 134 mg/dL (<200) 09/24/17 07:50 Lipase 17 U/L (11-82) 09/23/17 20:53 TSH 1.32 uIU/ml (0.34-5.60) 09/24/17 07:50 Urine Source [place] 09/23/17 20:33 Urine Color YELLOW 09/23/17 20:33 Urine Clarity CLOUDY (CLEAR) 09/23/17 20:33 Urine pH 6.5 (4.6 - 8.0) 09/23/17 20:[address] 1.020 (1.005-1.030) 09/23/17 20:33 Urine Protein 30 mg/dL (NEGATIVE) H 09/23/17 20:33 Urine Glucose (UA) NEGATIVE mg/dL (NEGATIVE) 09/23/17 20:33 Urine Ketones NEGATIVE mg/dL (NEGATIVE) 09/23/17 20:33 Urine Blood SMALL (NEGATIVE) H 09/23/17 20:33 Urine Nitrate POSITIVE (NEGATIVE) H 09/23/17 20:33 Urine Bilirubin NEGATIVE (NEGATIVE) 09/23/17 20:33 Urine Urobilinogen 0.2 E.U./dL (0.2 - 1.0) 09/23/17 20:33 Ur Leukocyte Esterase LARGE (NEGATIVE) H 09/23/17 20:33 Urine RBC 5-10 /hpf (0-5) H 09/23/17 20:33 Urine WBC 50-100 /hpf (0-5) H 09/23/17 20:33 Ur Epithelial Cells RARE /lpf (FEW) 09/23/17 20:33 Urine Bacteria MANY /hpf (NONE SEEN) H 09/23/17 20:33 Rheumatoid Factor 31.5 IU/mL (0.0-13.9) H 09/24/17 07:50 - Physical Exam Vitals and I&O: Vital Signs Temp 97.4 F 09/27/17 08:09 Pulse 70 09/27/17 08:09 Resp 17 09/27/17 08:09 BP 169/96 09/27/17 08:09 Pulse Ox 94 09/27/17 08:09 Intake & Output 09/26/17 09/27/17 09/27/17 18:59 06:59 18:59 Intake Total 155 155 Balance 155 155 Weight (lbs) 82.1 kg Intake: Intake, IV Amount 155 155 Cefepime 1 gm In Dextrose 50 50 5% 50 ml @ 100 mls/hr IV Q12H [facility] Rx#:[id number] Levetiracetam 500 mg In 105 105 Sodium Chloride 0.9% 100 ml @ 400 mls/hr IV Q12HR@ 1000,2200 [facility] Rx#: [id number] Other: # Bowel Movements 1 Stool Characteristics Liquid Brown Weight Source Bedscale Active Medications: Current Medications Acetaminophen (Tylenol) 650 mg PO Q4H PRN PRN Reason: Pain Or Fever above 101 Stop: 11/22/17 22:23 Albuterol Sulfate (Albuterol 2.5mg/3ml Neb Ud) 2.5 mg HHN QIDRT [facility] Stop: 11/23/17 06:59 Last Admin: 09/27/17 07:25 Dose: 2.5 mg Bisacodyl (Dulcolax 10 Mg Supp) 10 mg RC DAILY PRN PRN Reason: Constipation Stop: 11/22/17 22:21 Cefepime HCl 1 gm/ Dextrose 50 mls @ 100 mls/hr IV Q12H [facility] Stop: 11/22/17 21:59 Last Infusion: 09/27/17 05:25 Dose: Infused Levetiracetam 500 mg/ Sodium (Chloride) 105 mls @ 400 mls/hr IV Q12HR@1000, 2200 [facility] Stop: 11/23/17 12:14 Last Infusion: 09/27/17 05:26 Dose: Infused Multivitamins/Minerals 5 ml/Dextrose/ Amino Acids/Electrolytes/ Fat Emulsion Intravenous 2,605 mls @ 100 mls/hr IV .Q24H [facility] Stop: 11/25/17 14:59 Last Admin: 09/26/17 20:35 Dose: 100 mls/hr Sodium Chloride (Nacl 0.9%) 250 mls @ 10 mls/hr IV Q24H [facility] Stop: 11/25/17 14:59 Last Admin: 09/27/17 05:11 Dose: 10 mls/hr Ipratropium [place] (Atrovent Neb 0.5mg/2.5ml) 0.5 mg IH QIDRT [facility] Stop: 11/23/17 06:59 Last Admin: 09/27/17 07:25 Dose: 0.5 mg Lactobacillus Rhamnosus (Culturelle 15b) 1 each PO DAILY [facility] Stop: 11/25/17 08:59 Last Admin: 09/26/17 09:28 Dose: 1 each Levothyroxine Sodium 0.1 mg/ (Levothyroxine Sodium 0.025 mg) 0.125 mg PO QDAC [facility] Stop: 11/23/17 07:59 Last Admin: 09/27/17 06:35 Dose: 0.125 mg Lorazepam (Ativan) 1 mg PO BID PRN; Protocol PRN Reason: Anxiety Stop: 11/22/17 22:21 Lorazepam (Ativan) 1 mg IV Q4H PRN; Protocol PRN Reason: Seizure Stop: 11/22/17 22:23 Last Admin: 09/26/17 09:28 Dose: 1 mg Methotrexate (Methotrexate) 2.5 mg PO QWEEK 0730 [facility] PRN Reason: Protocol Stop: 11/23/17 07:59 Last Admin: 09/24/17 10:51 Dose: Not Given Mineral Oil (Mineral Oil 30 Ml) 30 ml PO BID [facility] Stop: 11/23/17 08:59 Last Admin: 09/26/17 18:18 Dose: 30 ml Miscellaneous (Clobazam [Onfi]) 1 tab PO BID [facility] Stop: 11/23/17 08:59 Miscellaneous (Ppn Per Pharmacy) 1 ea PRN PRN PRN Reason: PROTOCOL Stop: 11/23/17 12:12 Miscellaneous (Probiotic Screen) 1 ea PRN PRN PRN Reason: PROTOCOL Stop: 11/24/17 12:14 Onfi 20mg 1 PO BID [facility] Stop: 11/25/17 16:59 Last Admin: 09/26/17 18:18 Dose: 1 Polyethylene Glycol (Miralax) 17 gm PO BID [facility] Stop: 11/23/17 08:59 Last Admin: 09/26/17 18:18 Dose: 17 gm Rifaximin (Xifaxan) 200 mg PO BID [facility] Stop: 11/23/17 08:59 Last Admin: 09/26/17 18:18 Dose: 200 mg Simethicone (Mylicon) 80 mg PO QID PRN PRN Reason: Gas Stop: 11/24/17 12:58 Tamsulosin HCl (Flomax) 0.4 mg PO HS [facility] Stop: 11/23/17 20:59 Last Admin: 09/26/17 20:19 Dose: 0.4 mg General: No acute distress HEENT: Atraumatic Neck: Supple Cardiovascular: Regular rate Abdomen: Bowel sounds, Soft, Distended, no Tender, no Mass, no Guarding Assessment/Plan - Assessment Assessment: Assessment: # Fecal impaction # Sigmoid colon dilation to 18cm # Cerebral Palsy and mental retardation Pt had been admitted several times in the recent past for fecal impactions, and has responded in the past to laxatives (from above and below). The pt has had a colonoscopy in 2017 as per report, and noted only stool in the colon, no obstructing mass. Sigmoid colon currently 18cm as of 09/24, massively dilated, and there is a distal impaction. Pt has had several BMs since admission, and belly is softer now. Colonoscopy is not an option as stool is not able to suction through the scope channel. He is passing stool now with enemas, improving. Plan: - cont with enemas and po laxatives. - KUB 09/25 showed some mild improvement, still has copious amount of stool to evacuate. Cont enemas and serial KUB checks. - 500cc tap water enema every 4 hours - miralax oral route bid - pt was given amitiza prior, but unclear whether this was continued on dc. Hold now until impaction resolves - surgery consultation appropriate given the size of the sigmoid colon. - NPO if surgery planned; otherwise may start oral diet and advance as tolerated.
[2017-09-27] MEDS: ONFI 20MG PO SCH ×2 (09:13→16:20)
[2017-09-27] MEDS: Lactobacillus Rhamnosus GG 15 Billion CFU CAP.SPRINK PO SCH (09:14)
[2017-09-27] MEDS: POLYETHYLENE GLYCOL 3350 17 GM PACK PO SCH ×3 (09:15→17:36)
--- NOTE | 2017-09-27 09:20 | General Progress Note ---
Subjective - Review of Systems Service Date: 09/27/17 Events since last encounter: megacolon persistent, unable to swallow, vomiting discussed with Dr. Armstrong in view of multiple comorbidities since and unchangeable, colon resection will be recommended will need conservator to sign or 2 physicians Objective - Results Result Diagrams: 09/27/17 05:20 09/27/17 05:20 Recent Labs: Laboratory Last Values WBC 12.0 Th/cmm (4.8-10.8) H 09/27/17 05:20 RBC 4.40 Mil/cmm (4.30-5.70) 09/27/17 05:20 Hgb 14.2 gm/dL (12-16) 09/27/17 05:20 Hct 42.6 % (41.0-60) 09/27/17 05:20 MCV 96.8 fl (80-99) 09/27/17 05:20 MCH 32.3 pg (26.0-30.0) H 09/27/17 05:20 MCHC Differential 33.4 pg (28.0-36.0) 09/27/17 05:20 RDW 13.7 % (11.5-20.0) 09/27/17 05:20 Plt Count 373 Th/cmm (150-400) 09/27/17 05:20 MPV 7.7 fl 09/27/17 05:20 Neutrophils % 66.5 % (40.0-80.0) 09/27/17 05:20 Lymphocytes % 12.2 % (20.0-50.0) L 09/27/17 05:20 Monocytes % 13.6 % (2.0-10.0) H 09/27/17 05:20 Eosinophils % 7.6 % (0.0-5.0) H 09/27/17 05:20 Basophils % 0.1 % (0.0-2.0) 09/27/17 05:20 Sodium 134 mEq/L (136-145) L 09/27/17 05:20 Potassium 4.0 mEq/L (3.5-5.1) 09/27/17 05:20 Chloride 100 mEq/L (98-107) 09/27/17 05:20 Carbon Dioxide 28.5 mEq/L (21.0-31.0) 09/27/17 05:20 Anion Gap 9.5 (7.0-16.0) 09/27/17 05:20 BUN 8 mg/dL (7-25) 09/27/17 05:20 Creatinine 0.5 mg/dL (0.7-1.3) L 09/27/17 05:20 Est GFR ( Amer) > 60.0 ml/min (>90) 09/27/17 05:20 Est GFR (Non-Af Amer) > 60.0 ml/min 09/27/17 05:20 BUN/Creatinine Ratio 16.0 09/27/17 05:20 Glucose 102 mg/dL (70-105) 09/27/17 05:20 POC Glucose 87 MG/DL (70 - 105) 09/23/17 23:16 Calcium 9.7 mg/dL (8.6-10.3) 09/27/17 05:20 Phosphorus 2.4 mg/dL (2.5-5.0) L 09/27/17 05:20 Magnesium 1.7 mg/dL (1.9-2.7) L 09/27/17 05:20 Total Bilirubin 0.4 mg/dL (0.3-1.0) 09/25/17 05:05 Direct Bilirubin 0.11 mg/dL (0.0-0.2) 09/23/17 20:53 AST 12 U/L (13-39) L 09/25/17 05:05 ALT 11 U/L (7-52) 09/25/17 05:05 Alkaline Phosphatase 81 U/L (34-104) 09/25/17 05:05 Total Protein 6.3 gm/dL (6.0-8.3) 09/25/17 05:05 Albumin 3.6 gm/dL (4.2-5.5) L 09/25/17 05:05 Globulin 2.7 gm/dL 09/25/17 05:05 Albumin/Globulin Ratio 1.3 (1.0-1.8) 09/25/17 05:05 Prealbumin 13 mg/dL (10-36) 09/24/17 07:50 Triglycerides 59 mg/dL (<150) 09/24/17 07:50 Cholesterol 134 mg/dL (<200) 09/24/17 07:50 Lipase 17 U/L (11-82) 09/23/17 20:53 TSH 1.32 uIU/ml (0.34-5.60) 09/24/17 07:50 Urine Source [place] 09/23/17 20:33 Urine Color YELLOW 09/23/17 20:33 Urine Clarity CLOUDY (CLEAR) 09/23/17 20:33 Urine pH 6.5 (4.6 - 8.0) 09/23/17 20:33 Ur Specific [place] 1.020 (1.005-1.030) 09/23/17 20:33 Urine Protein 30 mg/dL (NEGATIVE) H 09/23/17 20:33 Urine Glucose (UA) NEGATIVE mg/dL (NEGATIVE) 09/23/17 20:33 Urine Ketones NEGATIVE mg/dL (NEGATIVE) 09/23/17 20:33 Urine Blood SMALL (NEGATIVE) H 09/23/17 20:33 Urine Nitrate POSITIVE (NEGATIVE) H 09/23/17 20:33 Urine Bilirubin NEGATIVE (NEGATIVE) 09/23/17 20:33 Urine Urobilinogen 0.2 E.U./dL (0.2 - 1.0) 09/23/17 20:33 Ur Leukocyte Esterase LARGE (NEGATIVE) H 09/23/17 20:33 Urine RBC 5-10 /hpf (0-5) H 09/23/17 20:33 Urine WBC 50-100 /hpf (0-5) H 09/23/17 20:33 Ur Epithelial Cells RARE /lpf (FEW) 09/23/17 20:33 Urine Bacteria MANY /hpf (NONE SEEN) H 09/23/17 20:33 Rheumatoid Factor 31.5 IU/mL (0.0-13.9) H 09/24/17 07:50 - Physical Exam Vitals and I&O: Vital Signs Temp 97.4 F 09/27/17 08:09 Pulse 70 09/27/17 08:09 Resp 17 09/27/17 08:09 BP 169/96 09/27/17 08:09 Pulse Ox 94 09/27/17 08:09 Intake & Output 09/26/17 09/27/17 09/27/17 18:59 06:59 18:59 Intake Total 155 155 Balance 155 155 Weight (lbs) 82.1 kg Intake: Intake, IV Amount 155 155 Cefepime 1 gm In Dextrose 50 50 5% 50 ml @ 100 mls/hr IV Q12H [facility] Rx#:[id number] Levetiracetam 500 mg In 105 105 Sodium Chloride 0.9% 100 ml @ 400 mls/hr IV Q12HR@ 1000,2200 [facility] Rx#: [id number] Other: # Bowel Movements 1 Stool Characteristics Liquid Brown Weight Source Bedscale Active Medications: Current Medications Acetaminophen (Tylenol) 650 mg PO Q4H PRN PRN Reason: Pain Or Fever above 101 Stop: 11/22/17 22:23 Albuterol Sulfate (Albuterol 2.5mg/3ml Neb Ud) 2.5 mg HHN QIDRT [facility] Stop: 11/23/17 06:59 Last Admin: 09/27/17 07:25 Dose: 2.5 mg Bisacodyl (Dulcolax 10 Mg Supp) 10 mg RC DAILY PRN PRN Reason: Constipation Stop: 11/22/17 22:21 Cefepime HCl 1 gm/ Dextrose 50 mls @ 100 mls/hr IV Q12H [facility] Stop: 11/22/17 21:59 Last Admin: 09/27/17 09:14 Dose: 100 mls/hr Levetiracetam 500 mg/ Sodium (Chloride) 105 mls @ 400 mls/hr IV Q12HR@1000, 2200 [facility] Stop: 11/23/17 12:14 Last Infusion: 09/27/17 05:26 Dose: Infused Multivitamins/Minerals 5 ml/Dextrose/ Amino Acids/Electrolytes/ Fat Emulsion Intravenous 2,605 mls @ 100 mls/hr IV .Q24H [facility] Stop: 11/25/17 14:59 Last Admin: 09/26/17 20:35 Dose: 100 mls/hr Sodium Chloride (Nacl 0.9%) 250 mls @ 10 mls/hr IV Q24H [facility] Stop: 11/25/17 14:59 Last Admin: 09/27/17 05:11 Dose: 10 mls/hr Ipratropium [place] (Atrovent Neb 0.5mg/2.5ml) 0.5 mg IH QIDRT [facility] Stop: 11/23/17 06:59 Last Admin: 09/27/17 07:25 Dose: 0.5 mg Lactobacillus Rhamnosus (Culturelle 15b) 1 each PO DAILY [facility] Stop: 11/25/17 08:59 Last Admin: 09/27/17 09:14 Dose: 1 each Levothyroxine Sodium 0.1 mg/ (Levothyroxine Sodium 0.025 mg) 0.125 mg PO QDAC [facility] Stop: 11/23/17 07:59 Last Admin: 09/27/17 06:35 Dose: 0.125 mg Lorazepam (Ativan) 1 mg PO BID PRN; Protocol PRN Reason: Anxiety Stop: 11/22/17 22:21 Lorazepam (Ativan) 1 mg IV Q4H PRN; Protocol PRN Reason: Seizure Stop: 11/22/17 22:23 Last Admin: 09/26/17 09:28 Dose: 1 mg Methotrexate (Methotrexate) 2.5 mg PO QWEEK 0730 [facility] PRN Reason: Protocol Stop: 11/23/17 07:59 Last Admin: 09/24/17 10:51 Dose: Not Given Mineral Oil (Mineral Oil 30 Ml) 30 ml PO BID [facility] Stop: 11/23/17 08:59 Last Admin: 09/27/17 09:14 Dose: 30 ml Miscellaneous (Clobazam [Onfi]) 1 tab PO BID [facility] Stop: 11/23/17 08:59 Miscellaneous (Ppn Per Pharmacy) 1 ea PRN PRN PRN Reason: PROTOCOL Stop: 11/23/17 12:12 Miscellaneous (Probiotic Screen) 1 ea PRN PRN PRN Reason: PROTOCOL Stop: 11/24/17 12:14 Onfi 20mg 1 PO BID [facility] Stop: 11/25/17 16:59 Last Admin: 09/27/17 09:13 Dose: 1 Polyethylene Glycol (Miralax) 17 gm PO BID [facility] Stop: 11/23/17 08:59 Last Admin: 09/27/17 09:15 Dose: 17 gm Rifaximin (Xifaxan) 200 mg PO BID [facility] Stop: 11/23/17 08:59 Last Admin: 09/27/17 09:14 Dose: 200 mg Simethicone (Mylicon) 80 mg PO QID PRN PRN Reason: Gas Stop: 11/24/17 12:58 Tamsulosin HCl (Flomax) 0.4 mg PO HS [facility] Stop: 11/23/17 20:59 Last Admin: 09/26/17 20:19 Dose: 0.4 mg General: No acute distress HEENT: Atraumatic Neck: Supple Cardiovascular: Regular rate Abdomen: Bowel sounds, Soft, Distended, no Tender, no Mass, no Guarding
--- NOTE | 2017-09-27 09:33 | Diagnostic Imaging Report ---
Exam: KUB of the abdomen HISTORY: Fecal impaction. Findings: Frontal examination the abdomen was reviewed. The study correlated with the prior exam of 09/25/2017 demonstrates significant distention of the small and large bowel loops throughout most likely related to lytic ileus. Impression: Significant air distention of the bowel loops throughout.
--- NOTE | 2017-09-27 14:23 | Internal Medicine Prog Note ---
Internal Medicine Subjective - Subjective Service Date: 09/27/17 (patient had a episode of x2 vomiting, remains on ppn) Patient is:: awake Per staff patient has:: tolerating meds Internal Medicine Objective - Results Result Diagrams: 09/27/17 05:20 09/27/17 05:20 Recent Labs: Laboratory Last Values WBC 12.0 Th/cmm (4.8-10.8) H 09/27/17 05:20 RBC 4.40 Mil/cmm (4.30-5.70) 09/27/17 05:20 Hgb 14.2 gm/dL (12-16) 09/27/17 05:20 Hct 42.6 % (41.0-60) 09/27/17 05:20 MCV 96.8 fl (80-99) 09/27/17 05:20 MCH 32.3 pg (26.0-30.0) H 09/27/17 05:20 MCHC Differential 33.4 pg (28.0-36.0) 09/27/17 05:20 RDW 13.7 % (11.5-20.0) 09/27/17 05:20 Plt Count 373 Th/cmm (150-400) 09/27/17 05:20 MPV 7.7 fl 09/27/17 05:20 Neutrophils % 66.5 % (40.0-80.0) 09/27/17 05:20 Lymphocytes % 12.2 % (20.0-50.0) L 09/27/17 05:20 Monocytes % 13.6 % (2.0-10.0) H 09/27/17 05:20 Eosinophils % 7.6 % (0.0-5.0) H 09/27/17 05:20 Basophils % 0.1 % (0.0-2.0) 09/27/17 05:20 Sodium 134 mEq/L (136-145) L 09/27/17 05:20 Potassium 4.0 mEq/L (3.5-5.1) 09/27/17 05:20 Chloride 100 mEq/L (98-107) 09/27/17 05:20 Carbon Dioxide 28.5 mEq/L (21.0-31.0) 09/27/17 05:20 Anion Gap 9.5 (7.0-16.0) 09/27/17 05:20 BUN 8 mg/dL (7-25) 09/27/17 05:20 Creatinine 0.5 mg/dL (0.7-1.3) L 09/27/17 05:20 Est GFR ( Amer) > 60.0 ml/min (>90) 09/27/17 05:20 Est GFR (Non-Af Amer) > 60.0 ml/min 09/27/17 05:20 BUN/Creatinine Ratio 16.0 09/27/17 05:20 Glucose 102 mg/dL (70-105) 09/27/17 05:20 POC Glucose 87 MG/DL (70 - 105) 09/23/17 23:16 Calcium 9.7 mg/dL (8.6-10.3) 09/27/17 05:20 Phosphorus 2.4 mg/dL (2.5-5.0) L 09/27/17 05:20 Magnesium 1.7 mg/dL (1.9-2.7) L 09/27/17 05:20 Total Bilirubin 0.4 mg/dL (0.3-1.0) 09/25/17 05:05 Direct Bilirubin 0.11 mg/dL (0.0-0.2) 09/23/17 20:53 AST 12 U/L (13-39) L 09/25/17 05:05 ALT 11 U/L (7-52) 09/25/17 05:05 Alkaline Phosphatase 81 U/L (34-104) 09/25/17 05:05 Total Protein 6.3 gm/dL (6.0-8.3) 09/25/17 05:05 Albumin 3.6 gm/dL (4.2-5.5) L 09/25/17 05:05 Globulin 2.7 gm/dL 09/25/17 05:05 Albumin/Globulin Ratio 1.3 (1.0-1.8) 09/25/17 05:05 Prealbumin 13 mg/dL (10-36) 09/24/17 07:50 Triglycerides 59 mg/dL (<150) 09/24/17 07:50 Cholesterol 134 mg/dL (<200) 09/24/17 07:50 Lipase 17 U/L (11-82) 09/23/17 20:53 TSH 1.32 uIU/ml (0.34-5.60) 09/24/17 07:50 Urine Source [place] 09/23/17 20:33 Urine Color YELLOW 09/23/17 20:33 Urine Clarity CLOUDY (CLEAR) 09/23/17 20:33 Urine pH 6.5 (4.6 - 8.0) 09/23/17 20:33 Ur Specific [place] 1.020 (1.005-1.030) 09/23/17 20:33 Urine Protein 30 mg/dL (NEGATIVE) H 09/23/17 20:33 Urine Glucose (UA) NEGATIVE mg/dL (NEGATIVE) 09/23/17 20:33 Urine Ketones NEGATIVE mg/dL (NEGATIVE) 09/23/17 20:33 Urine Blood SMALL (NEGATIVE) H 09/23/17 20:33 Urine Nitrate POSITIVE (NEGATIVE) H 09/23/17 20:33 Urine Bilirubin NEGATIVE (NEGATIVE) 09/23/17 20:33 Urine Urobilinogen 0.2 E.U./dL (0.2 - 1.0) 09/23/17 20:33 Ur Leukocyte Esterase LARGE (NEGATIVE) H 09/23/17 20:33 Urine RBC 5-10 /hpf (0-5) H 09/23/17 20:33 Urine WBC 50-100 /hpf (0-5) H 09/23/17 20:33 Ur Epithelial Cells RARE /lpf (FEW) 09/23/17 20:33 Urine Bacteria MANY /hpf (NONE SEEN) H 09/23/17 20:33 Rheumatoid Factor 31.5 IU/mL (0.0-13.9) H 09/24/17 07:50 - Physical Exam Vitals and I&O: Vital Signs Temp 97.4 F 09/27/17 08:09 Pulse 68 09/27/17 10:55 Resp 14 09/27/17 10:55 BP 169/96 09/27/17 08:09 Pulse Ox 93 09/27/17 10:55 Intake & Output 09/26/17 09/27/17 09/27/17 18:59 06:59 18:59 Intake Total 155 155 155 Balance 155 155 155 Weight (lbs) 181 lb Intake: Intake, IV Amount 155 155 155 Cefepime 1 gm In Dextrose 50 50 50 5% 50 ml @ 100 mls/hr IV Q12H [facility] Rx#:[id number] Levetiracetam 500 mg In 105 105 105 Sodium Chloride 0.9% 100 ml @ 400 mls/hr IV Q12HR@ 1000,2200 [facility] Rx#: [id number] Other: # Bowel Movements 1 Stool Characteristics Liquid Liquid Brown Brown Weight Source Bedscale Active Medications: Current Medications Acetaminophen (Tylenol) 650 mg PO Q4H PRN PRN Reason: Pain Or Fever above 101 Stop: 11/22/17 22:23 Albuterol Sulfate (Albuterol 2.5mg/3ml Neb Ud) 2.5 mg HHN QIDRT [facility] Stop: 11/23/17 06:59 Last Admin: 09/27/17 10:53 Dose: 2.5 mg Bisacodyl (Dulcolax 10 Mg Supp) 10 mg RC DAILY PRN PRN Reason: Constipation Stop: 11/22/17 22:21 Cefepime HCl 1 gm/ Dextrose 50 mls @ 100 mls/hr IV Q12H [facility] Stop: 11/22/17 21:59 Last Infusion: 09/27/17 14:09 Dose: Infused Levetiracetam 500 mg/ Sodium (Chloride) 105 mls @ 400 mls/hr IV Q12HR@1000, 2200 [facility] Stop: 11/23/17 12:14 Last Infusion: 09/27/17 14:09 Dose: Infused Multivitamins/Minerals 5 ml/Dextrose/ Amino Acids/Electrolytes/ Fat Emulsion Intravenous 2,605 mls @ 100 mls/hr IV .Q24H [facility] Stop: 11/25/17 14:59 Last Admin: 09/26/17 20:35 Dose: 100 mls/hr Sodium Chloride (Nacl 0.9%) 250 mls @ 10 mls/hr IV Q24H [facility] Stop: 11/25/17 14:59 Last Admin: 09/27/17 05:11 Dose: 10 mls/hr Ipratropium [place] (Atrovent Neb 0.5mg/2.5ml) 0.5 mg IH QIDRT [facility] Stop: 11/23/17 06:59 Last Admin: 09/27/17 10:53 Dose: 0.5 mg Lactobacillus Rhamnosus (Culturelle 15b) 1 each PO DAILY [facility] Stop: 11/25/17 08:59 Last Admin: 09/27/17 09:14 Dose: 1 each Levothyroxine Sodium 0.1 mg/ (Levothyroxine Sodium 0.025 mg) 0.125 mg PO QDAC [facility] Stop: 11/23/17 07:59 Last Admin: 09/27/17 06:35 Dose: 0.125 mg Lorazepam (Ativan) 1 mg PO BID PRN; Protocol PRN Reason: Anxiety Stop: 11/22/17 22:21 Lorazepam (Ativan) 1 mg IV Q4H PRN; Protocol PRN Reason: Seizure Stop: 11/22/17 22:23 Last Admin: 09/26/17 09:28 Dose: 1 mg Methotrexate (Methotrexate) 2.5 mg PO QWEEK 0730 [facility] PRN Reason: Protocol Stop: 11/23/17 07:59 Last Admin: 09/24/17 10:51 Dose: Not Given Mineral Oil (Mineral Oil 30 Ml) 30 ml PO BID [facility] Stop: 11/23/17 08:59 Last Admin: 09/27/17 09:14 Dose: 30 ml Miscellaneous (Clobazam [Onfi]) 1 tab PO BID [facility] Stop: 11/23/17 08:59 Miscellaneous (Ppn Per Pharmacy) 1 ea PRN PRN PRN Reason: PROTOCOL Stop: 11/23/17 12:12 Miscellaneous (Probiotic Screen) 1 ea PRN PRN PRN Reason: PROTOCOL Stop: 11/24/17 12:14 Onfi 20mg 1 PO BID [facility] Stop: 11/25/17 16:59 Last Admin: 09/27/17 09:13 Dose: 1 Polyethylene Glycol (Miralax) 17 gm PO BID [facility] Stop: 11/23/17 08:59 Last Admin: 09/27/17 09:15 Dose: 17 gm Rifaximin (Xifaxan) 200 mg PO BID [facility] Stop: 11/23/17 08:59 Last Admin: 09/27/17 09:14 Dose: 200 mg Simethicone (Mylicon) 80 mg PO QID PRN PRN Reason: Gas Stop: 11/24/17 12:58 Tamsulosin HCl (Flomax) 0.4 mg PO HS [facility] Stop: 11/23/17 20:59 Last Admin: 09/26/17 20:19 Dose: 0.4 mg General: weak HEENT: NC/AT, PERRLA Lungs: CTAB Cardiovascular: RRR, Normal S1, Normal S2, without murmur Abdomen: distended Neurological: bedbound Internal Medicine Assmt/Plan - Assessment Assessment: abdominal pain abdominal distention toxic bjorn colon acute uti hyponatremia acute dehydration MR cp leukocytosis seizure protein calorie malnutrition generalized weakness - Plan Plan: continue with ppn for nutritional support gi follow up cbc/bmp in am continue current orders Nutritional Asmnt/Malnutr-PDOC - Dietary Evaluation Malnutrition Findings (Please click <Entered> for more info): Nutritional Asmnt/Malnutrition Start: 09/27/17 11: 26 Text: Status: Active Freq: Document 09/27/17 11:26 [place] (Rec: 09/27/17 11:34 [place]FF[place] WEEKS- [id number]) Nutritional Asmnt/Malnutrition Patient General Information Diagnosis abdominal pain, increased abdominal distention Pertinent Medical Hx/Surgical Hx MR, CP, developmental delay, sezure, generalized contractures, bedridden, Hx of megacolon Subjective Information Pt asleep in bed at time of visit Current Diet Order/ Nutrition Support PPN Pertinent Medications culturelle, mineral oil, miralax, mylicon Pertinent Labs 09/27: Na 134, K 4.0, Cl 100, CO2 28.5, BUN 8, Cr 0.5, Ca 9. 7, glucose 102, Mg 1.7, phos 2 .4 Nutritional Hx/Data Height 5 ft 10 in Height (Calculated Centimeters) 177.8 Current Weight (lbs) 181 lb Weight (Calculated Kilograms) 82.1 Weight (Calculated Grams) 36641.2 Body Mass Index (BMI) 25.9 Weight Status Overweight GI Symptoms GI Symptoms None Last BM 09/27 Cultural/Ethnic/Islam Belief None noted Usual diet at home TF Skin Integrity/Comment: kenny score 13 Estimated Nutritional Goals BEE in Kcals: Using Current wt Calories/Kcals/Kg 30kcals/kg Kcals Calculated 2460kcals/day Protein: Using Current wt Protein g/k.2+g/day Protein Calculated 98g+/day Fluid: ml per MD Nutritional Problem 1. Problem Problem Altered GI function related to Etiology GI function as evidenced by Signs/Symptoms: Abdominal distention, abdominal pain. Intervention/Recommendation Comments Recommend initiating PN via central line to adequately meet estimated needs Expected Outcomes/Goals Expected Outcomes/Goals Nutrition needs met
[2017-09-27] MEDS: TPN 8.5%-70% CUSTOM IV SCH (15:46)
[2017-09-28 05:36] LABS: % BASOPHILS 0.2 % (0.0-2.0); % EOSINOPHILS 4.5 % (0.0-5.0); % LYMPHOCYTES 11.4 % (20.0-50.0); % MONOCYTES 12.9 % (2.0-10.0); EOSINOPHILE ABSOLUTE 0.5 Th/cmm (0.1-0.4); HEMATOCRIT 41.5 % (41.0-60); HEMOGLOBIN 13.9 gm/dL (12-16); LYMPHOCYTE ABSOLUTE 1.4 Th/cmm (1.5-3.0); MEAN CELL VOLUME 96.4 fl (80-99); MEAN CORPUSCULAR HEMOGLOBIN 32.2 pg (26.0-30.0); MEAN CORPUSCULAR HGB CONC 33.4 pg (28.0-36.0); MEAN PLATELET VOLUME 7.2 fl; MONOCYTE ABSOLUTE 1.6 Th/cmm (0.3-1.0); NEUTROPHILE ABSOLUTE 8.6 Th/cmm (1.8-8.0); PLATELET COUNT 342 Th/cmm (150-400); RED BLOOD COUNT 4.31 Mil/cmm (4.30-5.70); RED CELL DISTRIBUTION WIDTH 13.6 % (11.5-20.0)
[2017-09-28 05:45] LABS: WHITE BLOOD COUNT 12.1 Th/cmm (4.8-10.8)
[2017-09-28 05:59] LABS: ANION GAP 11.9 (7.0-16.0); BUN - UREA NITROGEN 9 mg/dL (7-25); CALCIUM SERUM 9.4 mg/dL (8.6-10.3); CHLORIDE 97 mEq/L (98-107); CREATININE - SERUM 0.4 mg/dL (0.7-1.3); GFR AFRICAN-AMERICAN > 60.0 ml/min (>90); GFR NON AFRICAN-AMERICAN > 60.0 ml/min; GLUCOSE 131 mg/dL (70-105); MAGNESIUM 1.8 mg/dL (1.9-2.7); PHOSPHOROUS 3.7 mg/dL (2.5-5.0); POTASSIUM SERUM 3.9 mEq/L (3.5-5.1); SODIUM SERUM 130 mEq/L (136-145)
[2017-09-28] MEDS: Albuterol Nebulizer 2.5mg/3mL HHN SCH ×4 (07:11→19:27)
[2017-09-28] MEDS: Ipratropium Neb 0.5 mg/2.5 mL UD IH SCH ×4 (07:12→19:27)
--- NOTE | 2017-09-28 08:11 | GI Progress Note ---
Subjective - Review of Systems Service Date: 09/28/17 Subjective: GI NOTE Events noted. NPO. On TPN. Objective - Results Result Diagrams: 09/28/17 05:20 09/28/17 05:20 Recent Labs: Laboratory Last Values WBC 12.1 Th/cmm (4.8-10.8) H 09/28/17 05:20 RBC 4.31 Mil/cmm (4.30-5.70) 09/28/17 05:20 Hgb 13.9 gm/dL (12-16) 09/28/17 05:20 Hct 41.5 % (41.0-60) 09/28/17 05:20 MCV 96.4 fl (80-99) 09/28/17 05:20 MCH 32.2 pg (26.0-30.0) H 09/28/17 05:20 MCHC Differential 33.4 pg (28.0-36.0) 09/28/17 05:20 RDW 13.6 % (11.5-20.0) 09/28/17 05:20 Plt Count 342 Th/cmm (150-400) 09/28/17 05:20 MPV 7.2 fl 09/28/17 05:20 Neutrophils % 71.0 % (40.0-80.0) 09/28/17 05:20 Lymphocytes % 11.4 % (20.0-50.0) L 09/28/17 05:20 Monocytes % 12.9 % (2.0-10.0) H 09/28/17 05:20 Eosinophils % 4.5 % (0.0-5.0) 09/28/17 05:20 Basophils % 0.2 % (0.0-2.0) 09/28/17 05:20 Sodium 130 mEq/L (136-145) L 09/28/17 05:20 Potassium 3.9 mEq/L (3.5-5.1) 09/28/17 05:20 Chloride 97 mEq/L (98-107) L 09/28/17 05:20 Carbon Dioxide 25.0 mEq/L (21.0-31.0) 09/28/17 05:20 Anion Gap 11.9 (7.0-16.0) 09/28/17 05:20 BUN 9 mg/dL (7-25) 09/28/17 05:20 Creatinine 0.4 mg/dL (0.7-1.3) L 09/28/17 05:20 Est GFR ( Amer) > 60.0 ml/min (>90) 09/28/17 05:20 Est GFR (Non-Af Amer) > 60.0 ml/min 09/28/17 05:20 BUN/Creatinine Ratio 22.5 09/28/17 05:20 Glucose 131 mg/dL (70-105) H 09/28/17 05:20 POC Glucose 87 MG/DL (70 - 105) 09/23/17 23:16 Calcium 9.4 mg/dL (8.6-10.3) 09/28/17 05:20 Phosphorus 3.7 mg/dL (2.5-5.0) 09/28/17 05:20 Magnesium 1.8 mg/dL (1.9-2.7) L 09/28/17 05:20 Total Bilirubin 0.4 mg/dL (0.3-1.0) 09/25/17 05:05 Direct Bilirubin 0.11 mg/dL (0.0-0.2) 09/23/17 20:53 AST 12 U/L (13-39) L 09/25/17 05:05 ALT 11 U/L (7-52) 09/25/17 05:05 Alkaline Phosphatase 81 U/L (34-104) 09/25/17 05:05 Total Protein 6.3 gm/dL (6.0-8.3) 09/25/17 05:05 Albumin 3.6 gm/dL (4.2-5.5) L 09/25/17 05:05 Globulin 2.7 gm/dL 09/25/17 05:05 Albumin/Globulin Ratio 1.3 (1.0-1.8) 09/25/17 05:05 Prealbumin 13 mg/dL (10-36) 09/24/17 07:50 Triglycerides 59 mg/dL (<150) 09/24/17 07:50 Cholesterol 134 mg/dL (<200) 09/24/17 07:50 Lipase 17 U/L (11-82) 09/23/17 20:53 TSH 1.32 uIU/ml (0.34-5.60) 09/24/17 07:50 Urine Source [place] 09/23/17 20:33 Urine Color YELLOW 09/23/17 20:33 Urine Clarity CLOUDY (CLEAR) 09/23/17 20:33 Urine pH 6.5 (4.6 - 8.0) 09/23/17 20:33 Ur Specific [place] 1.020 (1.005-1.030) 09/23/17 20:33 Urine Protein 30 mg/dL (NEGATIVE) H 09/23/17 20:33 Urine Glucose (UA) NEGATIVE mg/dL (NEGATIVE) 09/23/17 20:33 Urine Ketones NEGATIVE mg/dL (NEGATIVE) 09/23/17 20:33 Urine Blood SMALL (NEGATIVE) H 09/23/17 20:33 Urine Nitrate POSITIVE (NEGATIVE) H 09/23/17 20:33 Urine Bilirubin NEGATIVE (NEGATIVE) 09/23/17 20:33 Urine Urobilinogen 0.2 E.U./dL (0.2 - 1.0) 09/23/17 20:33 Ur Leukocyte Esterase LARGE (NEGATIVE) H 09/23/17 20:33 Urine RBC 5-10 /hpf (0-5) H 09/23/17 20:33 Urine WBC 50-100 /hpf (0-5) H 09/23/17 20:33 Ur Epithelial Cells RARE /lpf (FEW) 09/23/17 20:33 Urine Bacteria MANY /hpf (NONE SEEN) H 09/23/17 20:33 Rheumatoid Factor 31.5 IU/mL (0.0-13.9) H 09/24/17 07:50 - Physical Exam Vitals and I&O: Vital Signs Temp 97.2 F 09/28/17 04:00 Pulse 100 09/28/17 07:15 Resp 16 09/28/17 07:15 BP 142/77 09/28/17 04:00 Pulse Ox 94 09/28/17 07:15 Intake & Output 09/27/17 09/28/17 09/28/17 18:59 06:59 18:59 Intake Total 3409.833 150 Output Total 1400 1250 Balance 833 -1100 Weight (lbs) 82.1 kg 80.286 kg Intake: Intake, IV Amount 2184.833 50 Cefepime 1 gm In Dextrose 50 50 5% 50 ml @ 100 mls/hr IV Q12H [facility] Rx#:[id number] Levetiracetam 500 mg In 105 Sodium Chloride 0.9% 100 ml @ 400 mls/hr IV Q12HR@ 1000,2200 [facility] Rx#: [id number] Multivitamin Inj 5 ml In 1918.333 Dextrose 70% 1,200 ml In Amino Acids 8.5% 1,200 ml In Intralipids 20% 200 ml @ 100 mls/hr IV .Q24H [facility] Rx#:[id number] Sodium Chloride 0.9% 250 111.5 ml @ 10 mls/hr IV Q24H [facility] Rx#:[id number] Oral 25 100 TPN/PPN 1200 Output: Urine 1400 1250 Other: # Bowel Movements 2 2 Stool Characteristics Liquid Brown Weight Source Bedscale Bedscale Active Medications: Current Medications Acetaminophen (Tylenol) 650 mg PO Q4H PRN PRN Reason: Pain Or Fever above 101 Stop: 11/22/17 22:23 Albuterol Sulfate (Albuterol 2.5mg/3ml Neb Ud) 2.5 mg HHN QIDRT [facility] Stop: 11/23/17 06:59 Last Admin: 09/28/17 07:11 Dose: 2.5 mg Bisacodyl (Dulcolax 10 Mg Supp) 10 mg RC DAILY PRN PRN Reason: Constipation Stop: 11/22/17 22:21 Last Admin: 09/28/17 00:44 Dose: 10 mg Cefepime HCl 1 gm/ Dextrose 50 mls @ 100 mls/hr IV Q12H [facility] Stop: 11/22/17 21:59 Last Infusion: 09/27/17 23:09 Dose: Infused Levetiracetam 500 mg/ Sodium (Chloride) 105 mls @ 400 mls/hr IV Q12HR@1000, 2200 [facility] Stop: 11/23/17 12:14 Last Admin: 09/27/17 23:08 Dose: 400 mls/hr Multivitamins/Minerals 5 ml/Dextrose/ Amino Acids/Electrolytes/ Fat Emulsion Intravenous 2,605 mls @ 100 mls/hr IV .Q24H [facility] Stop: 11/25/17 14:59 Last Admin: 09/27/17 15:46 Dose: 100 mls/hr Sodium Chloride (Nacl 0.9%) 250 mls @ 10 mls/hr IV Q24H [facility] Stop: 11/25/17 14:59 Last Admin: 09/27/17 16:20 Dose: 10 mls/hr Ipratropium [place] (Atrovent Neb 0.5mg/2.5ml) 0.5 mg IH QIDRT [facility] Stop: 11/23/17 06:59 Last Admin: 09/28/17 07:12 Dose: 0.5 mg Lactobacillus Rhamnosus (Culturelle 15b) 1 each PO DAILY [facility] Stop: 11/25/17 08:59 Last Admin: 09/27/17 09:14 Dose: 1 each Levothyroxine Sodium 0.1 mg/ (Levothyroxine Sodium 0.025 mg) 0.125 mg PO QDAC [facility] Stop: 11/23/17 07:59 Last Admin: 09/28/17 07:05 Dose: 0.125 mg Lorazepam (Ativan) 1 mg PO BID PRN; Protocol PRN Reason: Anxiety Stop: 11/22/17 22:21 Lorazepam (Ativan) 1 mg IV Q4H PRN; Protocol PRN Reason: Seizure Stop: 11/22/17 22:23 Last Admin: 09/26/17 09:28 Dose: 1 mg Methotrexate (Methotrexate) 2.5 mg PO QWEEK 0730 [facility] PRN Reason: Protocol Stop: 11/23/17 07:59 Last Admin: 09/24/17 10:51 Dose: Not Given Mineral Oil (Mineral Oil 30 Ml) 30 ml PO BID [facility] Stop: 11/23/17 08:59 Last Admin: 09/27/17 17:36 Dose: Not Given Miscellaneous (Ppn Per Pharmacy) 1 [facility] PRN PRN PRN Reason: PROTOCOL Stop: 11/23/17 12:12 Miscellaneous (Probiotic Screen) 1 [facility] PRN PRN PRN Reason: PROTOCOL Stop: 11/24/17 12:14 Onfi 20mg 1 PO BID [facility] Stop: 11/25/17 16:59 Last Admin: 09/27/17 16:20 Dose: 1 Polyethylene Glycol (Miralax) 17 gm PO BID [facility] Stop: 11/23/17 08:59 Last Admin: 09/27/17 17:36 Dose: Not Given Rifaximin (Xifaxan) 200 mg PO BID [facility] Stop: 11/23/17 08:59 Last Admin: 09/27/17 16:20 Dose: 200 mg Simethicone (Mylicon) 80 mg PO QID PRN PRN Reason: Gas Stop: 11/24/17 12:58 Last Admin: 09/27/17 21:08 Dose: 80 mg Tamsulosin HCl (Flomax) 0.4 mg PO HS [facility] Stop: 11/23/17 20:59 Last Admin: 09/27/17 21:08 Dose: 0.4 mg General: No acute distress HEENT: Atraumatic Neck: Supple Cardiovascular: Regular rate Abdomen: Bowel sounds, Soft, Distended, no Tender, no Mass, no Guarding Assessment/Plan - Assessment Assessment: Assessment: # Fecal impaction # Sigmoid colon dilation to 18cm # Cerebral Palsy and mental retardation Pt had been admitted several times in the recent past for fecal impactions, and has responded in the past to laxatives (from above and below). The pt has had a colonoscopy in 2017 as per report, and noted only stool in the colon, no obstructing mass. Sigmoid colon currently 18cm as of 09/24, massively dilated, and there is a distal impaction. Pt has had several BMs since admission, and belly is softer now. Colonoscopy is not an option as stool is not able to suction through the scope channel. He is passing stool now with enemas, improving. Plan: - cont with enemas and po laxatives. - KUB 09/25 showed some mild improvement, still has copious amount of stool to evacuate. Cont enemas and serial KUB checks. - 500cc tap water enema every 4 hours - miralax oral route bid - Pending partial colectomy given markedly dilated sigmoid colon with recurrent episodes of LBO. - NPO/TPN.
[2017-09-28] MEDS: Lactobacillus Rhamnosus GG 15 Billion CFU CAP.SPRINK PO SCH (08:36)
[2017-09-28] MEDS: POLYETHYLENE GLYCOL 3350 17 GM PACK PO SCH ×2 (08:37→16:39)
[2017-09-28] MEDS: ONFI 20MG PO SCH ×2 (08:37→16:41)
[2017-09-28 09:30] LABS: INR 1.02 (0.5-1.4); PROTHROMBIN TIME (TEST) 10.6 SECONDS (9.5-11.5)
--- NOTE | 2017-09-28 09:33 | General Progress Note ---
Subjective - Review of Systems Service Date: 09/28/17 Events since last encounter: Uncle, Bertrand Lam called over phone and discussed informed consent regarding patient consent given will schedule for tomorrow Objective - Results Result Diagrams: 09/28/17 05:20 09/28/17 05:20 Recent Labs: Laboratory Last Values WBC 12.1 Th/cmm (4.8-10.8) H 09/28/17 05:20 RBC 4.31 Mil/cmm (4.30-5.70) 09/28/17 05:20 Hgb 13.9 gm/dL (12-16) 09/28/17 05:20 Hct 41.5 % (41.0-60) 09/28/17 05:20 MCV 96.4 fl (80-99) 09/28/17 05:20 MCH 32.2 pg (26.0-30.0) H 09/28/17 05:20 MCHC Differential 33.4 pg (28.0-36.0) 09/28/17 05:20 RDW 13.6 % (11.5-20.0) 09/28/17 05:20 Plt Count 342 Th/cmm (150-400) 09/28/17 05:20 MPV 7.2 fl 09/28/17 05:20 Neutrophils % 71.0 % (40.0-80.0) 09/28/17 05:20 Lymphocytes % 11.4 % (20.0-50.0) L 09/28/17 05:20 Monocytes % 12.9 % (2.0-10.0) H 09/28/17 05:20 Eosinophils % 4.5 % (0.0-5.0) 09/28/17 05:20 Basophils % 0.2 % (0.0-2.0) 09/28/17 05:20 PT 10.6 SECONDS (9.5-11.5) 09/28/17 05:20 INR 1.02 (0.5-1.4) 09/28/17 05:20 Sodium 130 mEq/L (136-145) L 09/28/17 05:20 Potassium 3.9 mEq/L (3.5-5.1) 09/28/17 05:20 Chloride 97 mEq/L (98-107) L 09/28/17 05:20 Carbon Dioxide 25.0 mEq/L (21.0-31.0) 09/28/17 05:20 Anion Gap 11.9 (7.0-16.0) 09/28/17 05:20 BUN 9 mg/dL (7-25) 09/28/17 05:20 Creatinine 0.4 mg/dL (0.7-1.3) L 09/28/17 05:20 Est GFR ( Amer) > 60.0 ml/min (>90) 09/28/17 05:20 Est GFR (Non-Af Amer) > 60.0 ml/min 09/28/17 05:20 BUN/Creatinine Ratio 22.5 09/28/17 05:20 Glucose 131 mg/dL (70-105) H 09/28/17 05:20 POC Glucose 87 MG/DL (70 - 105) 09/23/17 23:16 Calcium 9.4 mg/dL (8.6-10.3) 09/28/17 05:20 Phosphorus 3.7 mg/dL (2.5-5.0) 09/28/17 05:20 Magnesium 1.8 mg/dL (1.9-2.7) L 09/28/17 05:20 Total Bilirubin 0.4 mg/dL (0.3-1.0) 09/25/17 05:05 Direct Bilirubin 0.11 mg/dL (0.0-0.2) 09/23/17 20:53 AST 12 U/L (13-39) L 09/25/17 05:05 ALT 11 U/L (7-52) 09/25/17 05:05 Alkaline Phosphatase 81 U/L (34-104) 09/25/17 05:05 Total Protein 6.3 gm/dL (6.0-8.3) 09/25/17 05:05 Albumin 3.6 gm/dL (4.2-5.5) L 09/25/17 05:05 Globulin 2.7 gm/dL 09/25/17 05:05 Albumin/Globulin Ratio 1.3 (1.0-1.8) 09/25/17 05:05 Prealbumin 13 mg/dL (10-36) 09/24/17 07:50 Triglycerides 59 mg/dL (<150) 09/24/17 07:50 Cholesterol 134 mg/dL (<200) 09/24/17 07:50 Lipase 17 U/L (11-82) 09/23/17 20:53 TSH 1.32 uIU/ml (0.34-5.60) 09/24/17 07:50 Urine Source [place] 09/23/17 20:33 Urine Color YELLOW 09/23/17 20:33 Urine Clarity CLOUDY (CLEAR) 09/23/17 20:33 Urine pH 6.5 (4.6 - 8.0) 09/23/17 20:33 Ur Specific [place] 1.020 (1.005-1.030) 09/23/17 20:33 Urine Protein 30 mg/dL (NEGATIVE) H 09/23/17 20:33 Urine Glucose (UA) NEGATIVE mg/dL (NEGATIVE) 09/23/17 20:33 Urine Ketones NEGATIVE mg/dL (NEGATIVE) 09/23/17 20:33 Urine Blood SMALL (NEGATIVE) H 09/23/17 20:33 Urine Nitrate POSITIVE (NEGATIVE) H 09/23/17 20:33 Urine Bilirubin NEGATIVE (NEGATIVE) 09/23/17 20:33 Urine Urobilinogen 0.2 E.U./dL (0.2 - 1.0) 09/23/17 20:33 Ur Leukocyte Esterase LARGE (NEGATIVE) H 09/23/17 20:33 Urine RBC 5-10 /hpf (0-5) H 09/23/17 20:33 Urine WBC 50-100 /hpf (0-5) H 09/23/17 20:33 Ur Epithelial Cells RARE /lpf (FEW) 09/23/17 20:33 Urine Bacteria MANY /hpf (NONE SEEN) H 09/23/17 20:33 Rheumatoid Factor 31.5 IU/mL (0.0-13.9) H 09/24/17 07:50 - Physical Exam Vitals and I&O: Vital Signs Temp 97.2 F 09/28/17 04:00 Pulse 100 09/28/17 07:15 Resp 16 09/28/17 07:15 BP 142/77 09/28/17 04:00 Pulse Ox 94 09/28/17 07:15 Intake & Output 09/27/17 09/28/17 09/28/17 18:59 06:59 18:59 Intake Total 3409.833 150 Output Total 1400 1250 Balance 2009.833 -1100 Weight (lbs) 82.1 kg 80.286 kg Intake: Intake, IV Amount 2184.833 50 Cefepime 1 gm In Dextrose 50 50 5% 50 ml @ 100 mls/hr IV Q12H [facility] Rx#:[id number] Levetiracetam 500 mg In 105 Sodium Chloride 0.9% 100 ml @ 400 mls/hr IV Q12HR@ 1000,2200 [facility] Rx#: [id number] Multivitamin Inj 5 ml In 1918.333 Dextrose 70% 1,200 ml In Amino Acids 8.5% 1,200 ml In Intralipids 20% 200 ml @ 100 mls/hr IV .Q24H [facility] Rx#:[id number] Sodium Chloride 0.9% 250 111.5 ml @ 10 mls/hr IV Q24H [facility] Rx#:[id number] Oral 25 100 TPN/PPN 1200 Output: Urine 1400 1250 Other: # Bowel Movements 2 2 Stool Characteristics Liquid Brown [facility] Active Medications: Current Medications Acetaminophen (Tylenol) 650 mg PO Q4H PRN PRN Reason: Pain Or Fever above 101 Stop: 11/22/17 22:23 Albuterol Sulfate (Albuterol 2.5mg/3ml Neb Ud) 2.5 mg HHN QIDRT [facility] Stop: 11/23/17 06:59 Last Admin: 09/28/17 07:11 Dose: 2.5 mg Bisacodyl (Dulcolax 10 Mg Supp) 10 mg RC DAILY PRN PRN Reason: Constipation Stop: 11/22/17 22:21 Last Admin: 09/28/17 00:44 Dose: 10 mg Cefepime HCl 1 gm/ Dextrose 50 mls @ 100 mls/hr IV Q12H [facility] Stop: 11/22/17 21:59 Last Infusion: 09/27/17 23:09 Dose: Infused Levetiracetam 500 mg/ Sodium (Chloride) 105 mls @ 400 mls/hr IV Q12HR@1000, 2200 [facility] Stop: 11/23/17 12:14 Last Admin: 09/27/17 23:08 Dose: 400 mls/hr Multivitamins/Minerals 5 ml/Dextrose/ Amino Acids/Electrolytes/ Fat Emulsion Intravenous 2,605 mls @ 100 mls/hr IV .Q24H [facility] Stop: 11/25/17 14:59 Last Admin: 09/27/17 15:46 Dose: 100 mls/hr Sodium Chloride (Nacl 0.9%) 250 mls @ 10 mls/hr IV Q24H [facility] Stop: 11/25/17 14:59 Last Admin: 09/27/17 16:20 Dose: 10 mls/hr Ipratropium [place] (Atrovent Neb 0.5mg/2.5ml) 0.5 mg IH QIDRT [facility] Stop: 11/23/17 06:59 Last Admin: 09/28/17 07:12 Dose: 0.5 mg Lactobacillus Rhamnosus (Culturelle 15b) 1 each PO DAILY [facility] Stop: 11/25/17 08:59 Last Admin: 09/28/17 08:36 Dose: 1 each Levothyroxine Sodium 0.1 mg/ (Levothyroxine Sodium 0.025 mg) 0.125 mg PO QDAC [facility] Stop: 11/23/17 07:59 Last Admin: 09/28/17 07:05 Dose: 0.125 mg Lorazepam (Ativan) 1 mg PO BID PRN; Protocol PRN Reason: Anxiety Stop: 11/22/17 22:21 Lorazepam (Ativan) 1 mg IV Q4H PRN; Protocol PRN Reason: Seizure Stop: 11/22/17 22:23 Last Admin: 09/26/17 09:28 Dose: 1 mg Methotrexate (Methotrexate) 2.5 mg PO QWEEK 0730 [facility] PRN Reason: Protocol Stop: 11/23/17 07:59 Last Admin: 09/24/17 10:51 Dose: Not Given Mineral Oil (Mineral Oil 30 Ml) 30 ml PO BID [facility] Stop: 11/23/17 08:59 Last Admin: 09/28/17 08:37 Dose: 30 ml Miscellaneous (Ppn Per Pharmacy) 1 ea PRN PRN PRN Reason: PROTOCOL Stop: 11/23/17 12:12 Miscellaneous (Probiotic Screen) 1 ea PRN PRN PRN Reason: PROTOCOL Stop: 11/24/17 12:14 Onfi 20mg 1 PO BID [facility] Stop: 11/25/17 16:59 Last Admin: 09/28/17 08:37 Dose: 1 Polyethylene Glycol (Miralax) 17 gm PO BID [facility] Stop: 11/23/17 08:59 Last Admin: 09/28/17 08:37 Dose: 17 gm Rifaximin (Xifaxan) 200 mg PO BID [facility] Stop: 11/23/17 08:59 Last Admin: 09/28/17 08:37 Dose: 200 mg Simethicone (Mylicon) 80 mg PO QID PRN PRN Reason: Gas Stop: 11/24/17 12:58 Last Admin: 09/27/17 21:08 Dose: 80 mg Tamsulosin HCl (Flomax) 0.4 mg PO HS [facility] Stop: 11/23/17 20:59 Last Admin: 09/27/17 21:08 Dose: 0.4 mg General: No acute distress HEENT: Atraumatic Neck: Supple Cardiovascular: Regular rate Abdomen: Bowel sounds, Soft, Distended, no Tender, no Mass, no Guarding Nutritional Asmnt/Malnutr-PDOC - Dietary Evaluation Malnutrition Findings (Please click <Entered> for more info): Nutritional Asmnt/Malnutrition Start: 09/27/17 11: 26 Text: Status: Active Freq: Document 09/27/17 11:26 MG (Rec: 09/27/17 11:34 MG [id number]) Nutritional Asmnt/Malnutrition Patient General Information Diagnosis abdominal pain, increased abdominal distention Pertinent Medical Hx/Surgical Hx MR, CP, developmental delay, sezure, generalized contractures, bedridden, Hx of megacolon Subjective Information Pt asleep in bed at time of visit Current Diet Order/ Nutrition Support PPN Pertinent Medications culturelle, mineral oil, miralax, mylicon Pertinent Labs 09/27: Na 134, K 4.0, Cl 100, CO2 28.5, BUN 8, Cr 0.5, Ca 9. 7, glucose 102, Mg 1.7, phos 2 .4 Nutritional Hx/Data Height 1.78 m Height (Calculated Centimeters) 177.8 Current Weight (lbs) 82.1 kg Weight (Calculated Kilograms) 82.1 Weight (Calculated Grams) 37815.2 Body Mass Index (BMI) 25.9 Weight Status Overweight GI Symptoms GI Symptoms None Last BM 09/27 Cultural/Ethnic/Episcopal Belief None noted Usual diet at home TF Skin Integrity/Comment: kenny score 13 Estimated Nutritional Goals BEE in Kcals: Using Current wt Calories/Kcals/Kg 30kcals/kg Kcals Calculated 2460kcals/day Protein: Using Current wt Protein g/k.2+g/day Protein Calculated 98g+/day Fluid: ml per MD Nutritional Problem 1. Problem Problem Altered GI function related to Etiology GI function as evidenced by Signs/Symptoms: Abdominal distention, abdominal pain. Intervention/Recommendation Comments Recommend initiating PN via central line to adequately meet estimated needs Expected Outcomes/Goals Expected Outcomes/Goals Nutrition needs met
--- NOTE | 2017-09-28 11:04 | Consultation ---
DATE OF CONSULTATION: 09/26/2017 SURGICAL CONSULT REFERRING PHYSICIAN: Dr. Rick. REASON FOR CONSULTATION: Marked abdominal distention and vomiting. Thank you for referring this patient to me. HOSPITAL COURSE: This is a 62-year-old male with developmental retardation including cerebral palsy, seizure disorder, bedridden status with contractures and history of megacolon. The patient has multiple medications including buspirone, Depakote, fluoxetine, Nexium, Reglan and Zofran. The laboratory studies show CBC to be essentially normal. Chemistry is likewise within normal limits. The patient underwent CT scan on admission and this shows massive distal fecal impaction with distention of the sigmoid colon up to 17 cm, also distention of the proximal loops of the large bowel. The patient has been seen by Gastroenterology and has been followed and repeat study has been done including KUB, which showed no improvement at all in the degree of bowel distention throughout. On 09/28/2017, the date of this dictation, the uncleReji was called via telephone. He was apprised of the present condition and has known about the condition of this patient for a long time and had given permission in the past for the procedure as the brother who is the primary contact has not been found for some time. I am recommending subtotal colectomy and a diverting colostomy or ileostomy at the same time insert a feeding tube into the stomach as the patient continues to have problems with oral intake including those of pills. He has given a consent and will schedule the patient for surgery. Thank you Dr. Butler. [facility]# [id number]
[2017-09-28] MEDS: TPN 8.5%-70% CUSTOM IV SCH (15:15)
--- NOTE | 2017-09-28 15:15 | Internal Medicine Prog Note ---
Internal Medicine Subjective - Subjective Service Date: 09/28/17 (remains on ppn) Patient seen and examined:: with staff Patient is:: awake Per staff patient has:: tolerating meds Internal Medicine Objective - Results Result Diagrams: 09/28/17 05:20 09/28/17 05:20 Recent Labs: Laboratory Last Values WBC 12.1 Th/cmm (4.8-10.8) H 09/28/17 05:20 RBC 4.31 Mil/cmm (4.30-5.70) 09/28/17 05:20 Hgb 13.9 gm/dL (12-16) 09/28/17 05:20 Hct 41.5 % (41.0-60) 09/28/17 05:20 MCV 96.4 fl (80-99) 09/28/17 05:20 MCH 32.2 pg (26.0-30.0) H 09/28/17 05:20 MCHC Differential 33.4 pg (28.0-36.0) 09/28/17 05:20 RDW 13.6 % (11.5-20.0) 09/28/17 05:20 Plt Count 342 Th/cmm (150-400) 09/28/17 05:20 MPV 7.2 fl 09/28/17 05:20 Neutrophils % 71.0 % (40.0-80.0) 09/28/17 05:20 Lymphocytes % 11.4 % (20.0-50.0) L 09/28/17 05:20 Monocytes % 12.9 % (2.0-10.0) H 09/28/17 05:20 Eosinophils % 4.5 % (0.0-5.0) 09/28/17 05:20 Basophils % 0.2 % (0.0-2.0) 09/28/17 05:20 PT 10.6 SECONDS (9.5-11.5) 09/28/17 05:20 INR 1.02 (0.5-1.4) 09/28/17 05:20 Sodium 130 mEq/L (136-145) L 09/28/17 05:20 Potassium 3.9 mEq/L (3.5-5.1) 09/28/17 05:20 Chloride 97 mEq/L (98-107) L 09/28/17 05:20 Carbon Dioxide 25.0 mEq/L (21.0-31.0) 09/28/17 05:20 Anion Gap 11.9 (7.0-16.0) 09/28/17 05:20 BUN 9 mg/dL (7-25) 09/28/17 05:20 Creatinine 0.4 mg/dL (0.7-1.3) L 09/28/17 05:20 Est GFR ( Amer) > 60.0 ml/min (>90) 09/28/17 05:20 Est GFR (Non-Af Amer) > 60.0 ml/min 09/28/17 05:20 BUN/Creatinine Ratio 22.5 09/28/17 05:20 Glucose 131 mg/dL (70-105) H 09/28/17 05:20 POC Glucose 87 MG/DL (70 - 105) 09/23/17 23:16 Calcium 9.4 mg/dL (8.6-10.3) 09/28/17 05:20 Phosphorus 3.7 mg/dL (2.5-5.0) 09/28/17 05:20 Magnesium 1.8 mg/dL (1.9-2.7) L 09/28/17 05:20 Total Bilirubin 0.4 mg/dL (0.3-1.0) 09/25/17 05:05 Direct Bilirubin 0.11 mg/dL (0.0-0.2) 09/23/17 20:53 AST 12 U/L (13-39) L 09/25/17 05:05 ALT 11 U/L (7-52) 09/25/17 05:05 Alkaline Phosphatase 81 U/L (34-104) 09/25/17 05:05 Total Protein 6.3 gm/dL (6.0-8.3) 09/25/17 05:05 Albumin 3.6 gm/dL (4.2-5.5) L 09/25/17 05:05 Globulin 2.7 gm/dL 09/25/17 05:05 Albumin/Globulin Ratio 1.3 (1.0-1.8) 09/25/17 05:05 Prealbumin 13 mg/dL (10-36) 09/24/17 07:50 Triglycerides 59 mg/dL (<150) 09/24/17 07:50 Cholesterol 134 mg/dL (<200) 09/24/17 07:50 Lipase 17 U/L (11-82) 09/23/17 20:53 TSH 1.32 uIU/ml (0.34-5.60) 09/24/17 07:50 Urine Source [place] 09/23/17 20:33 Urine Color YELLOW 09/23/17 20:33 Urine Clarity CLOUDY (CLEAR) 09/23/17 20:33 Urine pH 6.5 (4.6 - 8.0) 09/23/17 20:33 Ur Specific [place] 1.020 (1.005-1.030) 09/23/17 20:33 Urine Protein 30 mg/dL (NEGATIVE) H 09/23/17 20:33 Urine Glucose (UA) NEGATIVE mg/dL (NEGATIVE) 09/23/17 20:33 Urine Ketones NEGATIVE mg/dL (NEGATIVE) 09/23/17 20:33 Urine Blood SMALL (NEGATIVE) H 09/23/17 20:33 Urine Nitrate POSITIVE (NEGATIVE) H 09/23/17 20:33 Urine Bilirubin NEGATIVE (NEGATIVE) 09/23/17 20:33 Urine Urobilinogen 0.2 E.U./dL (0.2 - 1.0) 09/23/17 20:33 Ur Leukocyte Esterase LARGE (NEGATIVE) H 09/23/17 20:33 Urine RBC 5-10 /hpf (0-5) H 09/23/17 20:33 Urine WBC 50-100 /hpf (0-5) H 09/23/17 20:33 Ur Epithelial Cells RARE /lpf (FEW) 09/23/17 20:33 Urine Bacteria MANY /hpf (NONE SEEN) H 09/23/17 20:33 Rheumatoid Factor 31.5 IU/mL (0.0-13.9) H 09/24/17 07:50 Blood Type A POSITIVE 09/28/17 05:30 Antibody Screen NEGATIVE 09/28/17 05:30 - Physical Exam Vitals and I&O: Vital Signs Temp 97 F 09/28/17 12:00 Pulse 76 09/28/17 15:09 Resp 14 09/28/17 15:09 BP 136/70 09/28/17 12:00 Pulse Ox 93 09/28/17 15:09 Intake & Output 09/27/17 09/28/17 09/28/17 18:59 06:59 18:59 Intake Total 3409.833 255 105 Output Total 1400 1250 1100 Balance 2008.833 -995 -995 Weight (lbs) 181 lb 177 lb 177 lb Intake: Intake, IV Amount 2184.833 155 105 Cefepime 1 gm In Dextrose 50 50 5% 50 ml @ 100 mls/hr IV Q12H [facility] Rx#:[id number] Levetiracetam 500 mg In 105 105 105 Sodium Chloride 0.9% 100 ml @ 400 mls/hr IV Q12HR@ 1000,2200 [facility] Rx#: [id number] Multivitamin Inj 5 ml In 1918.333 Dextrose 70% 1,200 ml In Amino Acids 8.5% 1,200 ml In Intralipids 20% 200 ml @ 100 mls/hr IV .Q24H [facility] Rx#:[id number] Sodium Chloride 0.9% 250 111.5 ml @ 10 mls/hr IV Q24H [facility] Rx#:[id number] Oral 25 100 TPN/PPN 1200 Output: Urine 1400 1250 1100 Other: # Bowel Movements 2 2 Stool Characteristics Liquid Soft Brown Liquid Brown Weight Source Bedscale Bedscale Bedscale Active Medications: Current Medications Acetaminophen (Tylenol) 650 mg PO Q4H PRN PRN Reason: Pain Or Fever above 101 Stop: 11/22/17 22:23 Albuterol Sulfate (Albuterol 2.5mg/3ml Neb Ud) 2.5 mg HHN QIDRT [facility] Stop: 11/23/17 06:59 Last Admin: 09/28/17 15:07 Dose: 2.5 mg Bisacodyl (Dulcolax 10 Mg Supp) 10 mg RC DAILY PRN PRN Reason: Constipation Stop: 11/22/17 22:21 Last Admin: 09/28/17 00:44 Dose: 10 mg Cefepime HCl 1 gm/ Dextrose 50 mls @ 100 mls/hr IV Q12H [facility] Stop: 11/22/17 21:59 Last Admin: 09/28/17 10:09 Dose: 100 mls/hr Levetiracetam 500 mg/ Sodium (Chloride) 105 mls @ 400 mls/hr IV Q12HR@1000, 2200 [facility] Stop: 11/23/17 12:14 Last Infusion: 09/28/17 10:09 Dose: Infused Multivitamins/Minerals 5 ml/Dextrose/ Amino Acids/Electrolytes/ Fat Emulsion Intravenous 2,605 mls @ 100 mls/hr IV .Q24H [facility] Stop: 11/25/17 14:59 Last Admin: 09/27/17 15:46 Dose: 100 mls/hr Sodium Chloride (Nacl 0.9%) 250 mls @ 10 mls/hr IV Q24H [facility] Stop: 11/25/17 14:59 Last Admin: 09/27/17 16:20 Dose: 10 mls/hr Ipratropium [place] (Atrovent Neb 0.5mg/2.5ml) 0.5 mg IH QIDRT [facility] Stop: 11/23/17 06:59 Last Admin: 09/28/17 15:07 Dose: 0.5 mg Lactobacillus Rhamnosus (Culturelle 15b) 1 each PO DAILY [facility] Stop: 11/25/17 08:59 Last Admin: 09/28/17 08:36 Dose: 1 each Levothyroxine Sodium 0.1 mg/ (Levothyroxine Sodium 0.025 mg) 0.125 mg PO QDAC [facility] Stop: 11/23/17 07:59 Last Admin: 09/28/17 07:05 Dose: 0.125 mg Lorazepam (Ativan) 1 mg PO BID PRN; Protocol PRN Reason: Anxiety Stop: 11/22/17 22:21 Lorazepam (Ativan) 1 mg IV Q4H PRN; Protocol PRN Reason: Seizure Stop: 11/22/17 22:23 Last Admin: 09/26/17 09:28 Dose: 1 mg Methotrexate (Methotrexate) 2.5 mg PO QWEEK 0730 [facility] PRN Reason: Protocol Stop: 11/23/17 07:59 Last Admin: 09/24/17 10:51 Dose: Not Given Mineral Oil (Mineral Oil 30 Ml) 30 ml PO BID [facility] Stop: 11/23/17 08:59 Last Admin: 09/28/17 08:37 Dose: 30 ml Miscellaneous (Ppn Per Pharmacy) 1 ea PRN PRN PRN Reason: PROTOCOL Stop: 11/23/17 12:12 Miscellaneous (Probiotic Screen) 1 ea PRN PRN PRN Reason: PROTOCOL Stop: 11/24/17 12:14 Onfi 20mg 1 PO BID [facility] Stop: 11/25/17 16:59 Last Admin: 09/28/17 08:37 Dose: 1 Polyethylene Glycol (Miralax) 17 gm PO BID [facility] Stop: 11/23/17 08:59 Last Admin: 09/28/17 08:37 Dose: 17 gm Rifaximin (Xifaxan) 200 mg PO BID [facility] Stop: 11/23/17 08:59 Last Admin: 09/28/17 08:37 Dose: 200 mg Simethicone (Mylicon) 80 mg PO QID PRN PRN Reason: Gas Stop: 11/24/17 12:58 Last Admin: 09/27/17 21:08 Dose: 80 mg Tamsulosin HCl (Flomax) 0.4 mg PO HS [facility] Stop: 11/23/17 20:59 Last Admin: 09/27/17 21:08 Dose: 0.4 mg General: weak HEENT: NC/AT, PERRLA Lungs: CTAB Cardiovascular: RRR, Normal S1, Normal S2, without murmur Abdomen: distended Neurological: bedbound Internal Medicine Assmt/Plan - Assessment Assessment: abdominal pain abdominal distention toxic bjorn colon acute uti hyponatremia acute dehydration MR cp leukocytosis seizure protein calorie malnutrition generalized weakness - Plan Plan: exploratory lap tomorrow continue with ppn for nutritional support gi follow up cbc/bmp in am continue current orders Nutritional Asmnt/Malnutr-PDOC - Dietary Evaluation Malnutrition Findings (Please click <Entered> for more info): Nutritional Asmnt/Malnutrition Start: 09/27/17 11: 26 Text: Status: Active Freq: Document 09/27/17 11:26 MG (Rec: 09/27/17 11:34 MG WEEKS- [id number]) Nutritional Asmnt/Malnutrition Patient General Information Diagnosis abdominal pain, increased abdominal distention Pertinent Medical Hx/Surgical Hx MR, CP, developmental delay, sezure, generalized contractures, bedridden, Hx of megacolon Subjective Information Pt asleep in bed at time of visit Current Diet Order/ Nutrition Support PPN Pertinent Medications culturelle, mineral oil, miralax, mylicon Pertinent Labs 09/27: Na 134, K 4.0, Cl 100, CO2 28.5, BUN 8, Cr 0.5, Ca 9. 7, glucose 102, Mg 1.7, phos 2 .4 Nutritional Hx/Data Height 5 ft 10 in Height (Calculated Centimeters) 177.8 Current Weight (lbs) 181 lb Weight (Calculated Kilograms) 82.1 Weight (Calculated Grams) 00962.2 Body Mass Index (BMI) 25.9 Weight Status Overweight GI Symptoms GI Symptoms None Last BM 09/27 Cultural/Ethnic/Quaker Belief None noted Usual diet at home TF Skin Integrity/Comment: kenny score 13 Estimated Nutritional Goals BEE in Kcals: Using Current wt Calories/Kcals/Kg 30kcals/kg Kcals Calculated 2460kcals/day Protein: Using Current wt Protein g/k.2+g/day Protein Calculated 98g+/day Fluid: ml per MD Nutritional Problem 1. Problem Problem Altered GI function related to Etiology GI function as evidenced by Signs/Symptoms: Abdominal distention, abdominal pain. Intervention/Recommendation Comments Recommend initiating PN via central line to adequately meet estimated needs Expected Outcomes/Goals Expected Outcomes/Goals Nutrition needs met
[2017-09-28] MEDS: Sodium Chloride 0.9% 250 ML IV SCH (16:40)
[2017-09-29 05:42] LABS: % BASOPHILS 0.7 % (0.0-2.0); % EOSINOPHILS 8.3 % (0.0-5.0); % LYMPHOCYTES 10.4 % (20.0-50.0); % MONOCYTES 14.9 % (2.0-10.0); % NEUTROPHILS 65.7 % (40.0-80.0); BASOPHILE ABSOLUTE 0.1 Th/cumm (0-0.2); HEMATOCRIT 42.9 % (41.0-60); HEMOGLOBIN 14.3 gm/dL (12-16); LYMPHOCYTE ABSOLUTE 1.3 Th/cmm (1.5-3.0); MEAN CELL VOLUME 96.5 fl (80-99); MEAN CORPUSCULAR HEMOGLOBIN 32.1 pg (26.0-30.0); MEAN CORPUSCULAR HGB CONC 33.3 pg (28.0-36.0); MEAN PLATELET VOLUME 7.6 fl; MONOCYTE ABSOLUTE 1.8 Th/cmm (0.3-1.0); NEUTROPHILE ABSOLUTE 7.9 Th/cmm (1.8-8.0); PLATELET COUNT 357 Th/cmm (150-400); RED BLOOD COUNT 4.45 Mil/cmm (4.30-5.70); RED CELL DISTRIBUTION WIDTH 13.7 % (11.5-20.0)
[2017-09-29 05:46] LABS: BUN - UREA NITROGEN 9 mg/dL (7-25); CALCIUM SERUM 9.7 mg/dL (8.6-10.3); CARBON DIOXIDE 26.3 mEq/L (21.0-31.0); CHLORIDE 102 mEq/L (98-107); CREATININE - SERUM 0.5 mg/dL (0.7-1.3); GFR AFRICAN-AMERICAN > 60.0 ml/min (>90); GFR NON AFRICAN-AMERICAN > 60.0 ml/min; GLUCOSE 109 mg/dL (70-105); MAGNESIUM 2.1 mg/dL (1.9-2.7); PHOSPHOROUS 2.9 mg/dL (2.5-5.0); POTASSIUM SERUM 4.3 mEq/L (3.5-5.1); SODIUM SERUM 134 mEq/L (136-145)
[2017-09-29 05:48] LABS: WHITE BLOOD COUNT 12.1 Th/cmm (4.8-10.8)
[2017-09-29] MEDS ORDERED: fentaNYL Citrate 100 mcg/2mL Vial ONE (07:42)
[2017-09-29] MEDS ORDERED: Propofol **SURGERY USE ONLY** 20 ML IV ONE (08:06)
[2017-09-29] MEDS ORDERED: Neostigmine 10mg/10mL Vial ONE (08:07)
[2017-09-29] MEDS ORDERED: Meperidine 50 mg/mL 1mL Syr ONE (10:11)
[2017-09-29] MEDS: Ipratropium Neb 0.5 mg/2.5 mL UD IH SCH ×4 (10:15→18:44)
[2017-09-29] MEDS: Albuterol Nebulizer 2.5mg/3mL HHN SCH ×4 (10:15→18:44)
[2017-09-29] MEDS ORDERED: Meperidine 25 mg/mL 1mL Syr IVP PRN ×4 (10:23)
[2017-09-29] MEDS ORDERED: Lactated Ringer 1,000 ML IV SCH (10:30)
[2017-09-29] MEDS: Lactobacillus Rhamnosus GG 15 Billion CFU CAP.SPRINK PO SCH (10:46)
[2017-09-29] MEDS: ONFI 20MG PO SCH ×2 (10:46→16:43)
[2017-09-29] MEDS: POLYETHYLENE GLYCOL 3350 17 GM PACK PO SCH ×2 (10:47→16:43)
[2017-09-29 11:32] LABS: pH 7.33 (7.35-7.45)
[2017-09-29 11:36] LABS: ALLEN TEST Y
[2017-09-29] MEDS: metroNIDAZOLE 500mg/NS 100mL 500 MG in Premix Fluid 1 BAG IV SCH ×2 (11:49→18:01)
--- NOTE | 2017-09-29 12:26 | Diagnostic Imaging Report ---
CHEST X-RAY: AP view INDICATION: pain COMPARISON: 09/23/2017 FINDINGS: Exam is limited due to body habitus. A tracheostomy tube is noted. Central line is noted with tip in the region of the SVC. The central line appears curled along the neck region. There is mild volume loss of the left lung with left basal density. Gas-filled loops of bowel the upper abdomen are noted. Cardiomegaly is noted. Old right rib fractures are noted. IMPRESSION Limited exam due to body habitus and positioning. Mild volume loss the left lung is noted with small left effusion. Pneumonia of the left lung base cannot be excluded. Central line seen terminating at the SVC. There is curling seen along the neck region. Assessment was limited due to patient positioning. Short-term follow-up repeat x-ray is recommended to further assess. Persistent gas distended loops of bowel.
[2017-09-29 12:34] LABS: ALB/GLOB RATIO 1.3 (1.0-1.8); ALBUMIN 3.9 gm/dL (4.2-5.5); BILIRUBIN,DIRECT 0.12 mg/dL (0.0-0.2); BILIRUBIN,TOTAL 0.4 mg/dL (0.3-1.0); TOTAL PROTEIN,SERUM 6.9 gm/dL (6.0-8.3)
--- NOTE | 2017-09-29 12:54 | Internal Medicine Prog Note ---
Internal Medicine Subjective - Subjective Service Date: 09/29/17 (s/p exploratory lap, now orally intubated on vent) Patient seen and examined:: with staff Patient is:: awake Per staff patient has:: tolerating meds Internal Medicine Objective - Results Result Diagrams: 09/29/17 04:55 09/29/17 04:55 Recent Labs: Laboratory Last Values WBC 12.1 Th/cmm (4.8-10.8) H 09/29/17 04:55 RBC 4.45 Mil/cmm (4.30-5.70) 09/29/17 04:55 Hgb 14.3 gm/dL (12-16) 09/29/17 04:55 Hct 42.9 % (41.0-60) 09/29/17 04:55 MCV 96.5 fl (80-99) 09/29/17 04:55 MCH 32.1 pg (26.0-30.0) H 09/29/17 04:55 MCHC Differential 33.3 pg (28.0-36.0) 09/29/17 04:55 RDW 13.7 % (11.5-20.0) 09/29/17 04:55 Plt Count 357 Th/cmm (150-400) 09/29/17 04:55 MPV 7.6 fl 09/29/17 04:55 Neutrophils % 65.7 % (40.0-80.0) 09/29/17 04:55 Lymphocytes % 10.4 % (20.0-50.0) L 09/29/17 04:55 Monocytes % 14.9 % (2.0-10.0) H 09/29/17 04:55 Eosinophils % 8.3 % (0.0-5.0) H 09/29/17 04:55 Basophils % 0.7 % (0.0-2.0) 09/29/17 04:55 PT 10.6 SECONDS (9.5-11.5) 09/28/17 05:20 INR 1.02 (0.5-1.4) 09/28/17 05:20 Specimen Source ARTEIAL 09/29/17 12:06 Sample Site LEFT 09/29/17 12:06 pH 7.33 (7.35-7.45) L 09/29/17 12:06 pCO2 42.0 mmHg (35.0-45.0) 09/29/17 12:06 pO2 160.0 mmHg (80.0-100.0) H 09/29/17 12:06 HCO3 22.0 mEq/L (20.0-26.0) 09/29/17 12:06 Base Excess 3.7 mEq/L (-3.0-3.0) H 09/29/17 12:06 O2 Saturation 99.0 % (92.0-100.0) 09/29/17 12:06 Cam Test Y 09/29/17 12:06 Vent Rate 10 09/29/17 12:06 Inspired O2 50 09/29/17 12:06 Tidal Volume 650 09/29/17 12:06 Pressure (ins/psv/peep) 10 09/29/17 12:06 Critical Value D. AZUL 09/29/17 12:06 Sodium 134 mEq/L (136-145) L 09/29/17 04:55 Potassium 4.3 mEq/L (3.5-5.1) 09/29/17 04:55 Chloride 102 mEq/L (98-107) 09/29/17 04:55 Carbon Dioxide 26.3 mEq/L (21.0-31.0) 09/29/17 04:55 Anion Gap 10.0 (7.0-16.0) 09/29/17 04:55 BUN 9 mg/dL (7-25) 09/29/17 04:55 Creatinine 0.5 mg/dL (0.7-1.3) L 09/29/17 04:55 Est GFR ( Amer) > 60.0 ml/min (>90) 09/29/17 04:55 Est GFR (Non-Af Amer) > 60.0 ml/min 09/29/17 04:55 BUN/Creatinine Ratio 18.0 09/29/17 04:55 Glucose 109 mg/dL (70-105) H 09/29/17 04:55 POC Glucose 118 MG/DL (70 - 105) H 09/29/17 03:05 Calcium 9.7 mg/dL (8.6-10.3) 09/29/17 04:55 Phosphorus 2.9 mg/dL (2.5-5.0) 09/29/17 04:55 Magnesium 2.1 mg/dL (1.9-2.7) 09/29/17 04:55 Total Bilirubin 0.4 mg/dL (0.3-1.0) 09/29/17 04:15 Direct Bilirubin 0.12 mg/dL (0.0-0.2) 09/29/17 04:15 AST 16 U/L (13-39) 09/29/17 04:15 ALT 11 U/L (7-52) 09/29/17 04:15 Alkaline Phosphatase 80 U/L (34-104) 09/29/17 04:15 Total Protein 6.9 gm/dL (6.0-8.3) 09/29/17 04:15 Albumin 3.9 gm/dL (4.2-5.5) L 09/29/17 04:15 Globulin 3.0 gm/dL 09/29/17 04:15 Albumin/Globulin Ratio 1.3 (1.0-1.8) 09/29/17 04:15 Prealbumin 13 mg/dL (10-36) 09/24/17 07:50 Triglycerides 59 mg/dL (<150) 09/24/17 07:50 Cholesterol 134 mg/dL (<200) 09/24/17 07:50 Lipase 17 U/L (11-82) 09/23/17 20:53 TSH 1.32 uIU/ml (0.34-5.60) 09/24/17 07:50 Urine Source [place] 09/23/17 20:33 Urine Color YELLOW 09/23/17 20:33 Urine Clarity CLOUDY (CLEAR) 09/23/17 20:33 Urine pH 6.5 (4.6 - 8.0) 09/23/17 20:33 Ur Specific [place] 1.020 (1.005-1.030) 09/23/17 20:33 Urine Protein 30 mg/dL (NEGATIVE) H 09/23/17 20:33 Urine Glucose (UA) NEGATIVE mg/dL (NEGATIVE) 09/23/17 20:33 Urine Ketones NEGATIVE mg/dL (NEGATIVE) 09/23/17 20:33 Urine Blood SMALL (NEGATIVE) H 09/23/17 20:33 Urine Nitrate POSITIVE (NEGATIVE) H 09/23/17 20:33 Urine Bilirubin NEGATIVE (NEGATIVE) 09/23/17 20:33 Urine Urobilinogen 0.2 E.U./dL (0.2 - 1.0) 09/23/17 20:33 Ur Leukocyte Esterase LARGE (NEGATIVE) H 09/23/17 20:33 Urine RBC 5-10 /hpf (0-5) H 09/23/17 20:33 Urine WBC 50-100 /hpf (0-5) H 09/23/17 20:33 Ur Epithelial Cells RARE /lpf (FEW) 09/23/17 20:33 Urine Bacteria MANY /hpf (NONE SEEN) H 09/23/17 20:33 Rheumatoid Factor 31.5 IU/mL (0.0-13.9) H 09/24/17 07:50 Blood Type A POSITIVE 09/28/17 05:30 Antibody Screen NEGATIVE 09/28/17 05:30 - Physical Exam Vitals and I&O: Vital Signs Temp 97.1 F 09/29/17 12:00 Pulse 101 09/29/17 12:06 Resp 10 09/29/17 12:00 BP 127/79 09/29/17 12:00 Pulse Ox 100 09/29/17 12:06 Intake & Output 09/28/17 09/29/17 09/29/17 18:59 06:59 18:59 Intake Total 4046.666 1355 149.333 Output Total 3100 650 Balance 946.666 705 149.333 Weight (lbs) 177 lb 180 lb Intake: Intake, IV Amount 2746.666 155 149.333 Cefepime 1 gm In Dextrose 50 50 5% 50 ml @ 100 mls/hr IV Q12H [facility] Rx#:[id number] Levetiracetam 500 mg In 105 105 Sodium Chloride 0.9% 100 ml @ 400 mls/hr IV Q12HR@ 1000,2200 [facility] Rx#: [id number] Multivitamin Inj 5 ml In 2348.333 Dextrose 70% 1,200 ml In Amino Acids 8.5% 1,200 ml In Intralipids 20% 200 ml @ 100 mls/hr IV .Q24H [facility] Rx#:[id number] Sodium Chloride 0.9% 250 243.333 149.333 ml @ 10 mls/hr IV Q24H [facility] Rx#:[id number] Oral 100 TPN/PPN 1200 1200 Output: Urine 3100 650 Other: # Bowel Movements 2 3 Stool Characteristics Soft Liquid Liquid [facility]ations: Current Medications Acetaminophen (Tylenol) 650 mg PO Q4H PRN PRN Reason: Pain Or Fever above 101 Stop: 11/22/17 22:23 Albuterol Sulfate (Albuterol 2.5mg/3ml Neb Ud) 2.5 mg HHN QIDRT [facility] Stop: 11/23/17 06:59 Last Admin: 09/29/17 12:06 Dose: 2.5 mg Bisacodyl (Dulcolax 10 Mg Supp) 10 mg RC DAILY PRN PRN Reason: Constipation Stop: 11/22/17 22:21 Last Admin: 09/28/17 00:44 Dose: 10 mg Chlorhexidine Gluconate (Peridex) 15 ml MM 0800,1999 [facility] Stop: 11/28/17 19:59 Enoxaparin Sodium (Lovenox) 40 mg SUBQ DAILY [facility] Stop: 11/29/17 08:59 Cefepime HCl 1 gm/ Dextrose 50 mls @ 100 mls/hr IV Q12H [facility] Stop: 11/22/17 21:59 Last Admin: 09/29/17 11:47 Dose: 100 mls/hr Levetiracetam 500 mg/ Sodium (Chloride) 105 mls @ 400 mls/hr IV Q12HR@1000, 2200 [facility] Stop: 11/23/17 12:14 Last Admin: 09/29/17 11:47 Dose: 400 mls/hr Multivitamins/Minerals 5 ml/Dextrose/ Amino Acids/Electrolytes/ Fat Emulsion Intravenous 2,605 mls @ 100 mls/hr IV .Q24H [facility] Stop: 11/25/17 14:59 Last Admin: 09/28/17 15:15 Dose: 100 mls/hr Sodium Chloride (Nacl 0.9%) 250 mls @ 10 mls/hr IV Q24H [facility] Stop: 11/25/17 14:59 Last Infusion: 09/29/17 07:36 Dose: 0 mls/hr Metronidazole 500 mg/ (Miscellaneous) 100 mls @ 100 mls/hr IV Q8H [facility] Stop: 11/28/17 10:59 Last Admin: 09/29/17 11:49 Dose: 100 mls/hr Lactated Ringer's (Lactated Ringer) 1,000 mls @ 0 mls/hr IV .Q0M [facility] PRN Reason: TKO Stop: 09/30/17 10:29 Ipratropium [place] (Atrovent Neb 0.5mg/2.5ml) 0.5 mg IH QIDRT [facility] Stop: 11/23/17 06:59 Last Admin: 09/29/17 12:06 Dose: 0.5 mg Lactobacillus Rhamnosus (Culturelle 15b) 1 each PO DAILY [facility] Stop: 11/25/17 08:59 Last Admin: 09/29/17 10:46 Dose: Not Given Levothyroxine Sodium 0.1 mg/ (Levothyroxine Sodium 0.025 mg) 0.125 mg PO QDAC [facility] Stop: 11/23/17 07:59 Last Admin: 09/29/17 06:52 Dose: Not Given Lorazepam (Ativan) 1 mg PO BID PRN; Protocol PRN Reason: Anxiety Stop: 11/22/17 22:21 Lorazepam (Ativan) 1 mg IV Q4H PRN; Protocol PRN Reason: Seizure Stop: 11/22/17 22:23 Last Admin: 09/26/17 09:28 Dose: 1 mg Meperidine HCl (Demerol) 12.5 mg IVP UD PRN PRN Reason: POST OP MODERATE PAIN Stop: 09/30/17 10:22 Meperidine HCl (Demerol) 12.5 mg IVP UD PRN PRN Reason: POST OP MODERATE PAIN Stop: 09/30/17 10:22 Meperidine HCl (Demerol) 25 mg IVP UD PRN PRN Reason: POST OP SEVERE PAIN Stop: 09/30/17 10:22 Meperidine HCl (Demerol) 12.5 mg IVP UD PRN PRN Reason: SHIVERING Stop: 09/30/17 10:22 Methotrexate (Methotrexate) 2.5 mg PO QWEEK 0730 [facility] PRN Reason: Protocol Stop: 11/23/17 07:59 Last Admin: 09/24/17 10:51 Dose: Not Given Mineral Oil (Mineral Oil 30 Ml) 30 ml PO BID [facility] Stop: 11/23/17 08:59 Last Admin: 09/29/17 10:46 Dose: Not Given Miscellaneous (Ppn Per Pharmacy) 1 ea MC PRN PRN PRN Reason: PROTOCOL Stop: 11/23/17 12:12 Miscellaneous (Probiotic Screen) 1 ea PRN PRN PRN Reason: PROTOCOL Stop: 11/24/17 12:14 Miscellaneous (Tpn Per Pharmacy) 1 ea PRN PRN PRN Reason: PROTOCOL Stop: 11/28/17 12:05 Morphine Sulfate (Morphine) 2 mg IVP Q4H PRN PRN Reason: Abdominal Pain Stop: 11/28/17 03:13 Pantoprazole Sodium (Protonix) 40 mg IVP DAILY [facility] Stop: 11/28/17 11:59 Onfi 20mg 1 PO BID [facility] Stop: 11/25/17 16:59 Last Admin: 09/29/17 10:46 Dose: Not Given Polyethylene Glycol (Miralax) 17 gm PO BID [facility] Stop: 11/23/17 08:59 Last Admin: 09/29/17 10:47 Dose: Not Given Simethicone (Mylicon) 80 mg PO QID PRN PRN Reason: Gas Stop: 11/24/17 12:58 Last Admin: 09/27/17 21:08 Dose: 80 mg Tamsulosin HCl (Flomax) 0.4 mg PO HS [facility] Stop: 11/23/17 20:59 Last Admin: 09/28/17 21:24 Dose: 0.4 mg General: weak HEENT: NC/AT, PERRLA Lungs: CTAB Cardiovascular: RRR, Normal S1, Normal S2, without murmur Abdomen: distended Neurological: bedbound Internal Medicine Assmt/Plan - Assessment Assessment: abdominal pain abdominal distention toxic bjorn colon acute uti hyponatremia acute dehydration MR cp leukocytosis seizure protein calorie malnutrition generalized weakness - Plan Plan: vent support will follow construction consultant recommendations continue with ppn for nutritional support cbc/bmp in am continue current orders Nutritional Asmnt/Malnutr-PDOC - Dietary Evaluation Malnutrition Findings (Please click <Entered> for more info): Nutritional Asmnt/Malnutrition Start: 09/27/17 11: 26 Text: Status: Active Freq: Document 09/27/17 11:26 MG (Rec: 09/27/17 11:34 MG WEEKS- FN) Nutritional Asmnt/Malnutrition Patient General Information Diagnosis abdominal pain, increased abdominal distention Pertinent Medical Hx/Surgical Hx MR, CP, developmental delay, sezure, generalized contractures, bedridden, Hx of megacolon Subjective Information Pt asleep in bed at time of visit Current Diet Order/ Nutrition Support PPN Pertinent Medications culturelle, mineral oil, miralax, mylicon Pertinent Labs 09/27: Na 134, K 4.0, Cl 100, CO2 28.5, BUN 8, Cr 0.5, Ca 9. 7, glucose 102, Mg 1.7, phos 2 .4 Nutritional Hx/Data Height 5 ft 10 in Height (Calculated Centimeters) 177.8 Current Weight (lbs) 181 lb Weight (Calculated Kilograms) 82.1 Weight (Calculated Grams) 67539.2 Body Mass Index (BMI) 25.9 Weight Status Overweight GI Symptoms GI Symptoms None Last BM 09/27 Cultural/Ethnic/Advent Belief None noted Usual diet at home TF Skin Integrity/Comment: kenny score 13 Estimated Nutritional Goals BEE in Kcals: Using Current wt Calories/Kcals/Kg 30kcals/kg Kcals Calculated 2460kcals/day Protein: Using Current wt Protein g/k.2+g/day Protein Calculated 98g+/day Fluid: ml per MD Nutritional Problem 1. Problem Problem Altered GI function related to Etiology GI function as evidenced by Signs/Symptoms: Abdominal distention, abdominal pain. Intervention/Recommendation Comments Recommend initiating PN via central line to adequately meet estimated needs Expected Outcomes/Goals Expected Outcomes/Goals Nutrition needs met
[2017-09-29] MEDS ORDERED: Morphine Sulfate 4 mg/mL 1mL Syr ONE (15:34)
[2017-09-29] MEDS: Morphine Sulfate 2 mg/mL 1mL Syr IVP PRN (15:42)
--- NOTE | 2017-09-29 16:45 | Operative Report ---
DATE OF SURGERY: 09/29/2017 PREOPERATIVE DIAGNOSES: 1. Mental retardation. 2. Cerebral palsy. 3. Seizure disorder. 4. Contractures. POSTOPERATIVE DIAGNOSES: 1. Mental retardation. 2. Cerebral palsy. 3. Seizure disorder. 4. Contractures. OPERATION DONE: Exploratory laparotomy with: 1. Subtotal colectomy with Chencho's pouch. 2. Janeway gastrostomy. 3. Lysis of dense adhesions. 4. Diverting ileostomy. 5. Antibiotic washout of abdominal cavity. SURGEON: Dr. Butler. CLINICAL EDUCATOR: Dr. Saleem. ANESTHESIA: General. ANESTHESIOLOGIST: Dr. Bang. ESTIMATED BLOOD LOSS: 200 mL. INDICATIONS FOR SURGERY: Persistent megacolon and constipation. Admitted because of abdominal distention and has been vomiting. OPERATIVE FINDINGS: Markedly dilated colon all the way to the sigmoid just above the pelvic brim. Adhesions from previous operations, was lysed bluntly and sharply, good Janeway gastrostomy was done and diverting ileostomy. Informed consent was discussed with the uncle prior to surgery and possible complications also discussed. DESCRIPTION OF PROCEDURE: The patient was given general anesthesia. The abdomen was prepped with Betadine and draped in appropriate manner. An incision was made below the xiphoid all the way to the suprapubic area. The abdominal incision was carried through to the peritoneum. In the lower abdomen there were adhesions to the anterior abdominal wall from previous surgery and this were lysed bluntly and sharply. Retractors applied. The colon was markedly dilated throughout its whole length all the way to the pelvic brim. The lateral gutter on the left side was incised at the ligament of Toldt to free the colon and this was then dissected medially. This incision was carried all the way down to the pelvic brim, following which the BRIELLE instrument was applied 3 times to accommodate the size of the colon. The staple line was then oversewn utilizing running suture of 3-0 silk incorporating the serosa for better seal. The cecum was then identified and freed from its lateral attachments and the distal ileum was transected utilizing BRIELLE. The hepatic flexure was then lysed with cautery. The colon was then dissected medially until the mesentery was well identified. The gastrocolic omentum was fairly divided with a LigaSure. There were dense adhesions in the left upper abdomen at the splenic area and this tissue was separately dissected until this was freed. No splenic injury was encountered. The mesentery was then sterilely transected utilizing LigaSure and some vessels were ligated individually with 2-0 silk. Following completion of the removal of the colon the distal ileum was brought out as an ileostomy in the left lower quadrant of the abdomen through an incision. Following satisfactory hemostasis, the abdominal cavity was washed with antibiotic solution and a Isidoro drain was placed in the abdominal cavity. The sutures of 2-0 silk was then used to anchor the ileum to the undersurface abdominal wall, also suturing the mesentery to prevent internal herniation. The abdominal incision was closed with running suture of #1 PDS and the skin was closed with nazanin. The ileostomy was matured utilizing everting suture of 4-0 Vicryl and above the bag was placed over this. Prior to closure abdominal cavity the BRIELLE instrument was used to compartmentalized the anterior stomach in a Janeway gastrostomy fashion with an inverting suture of 3-0 silk to prevent reflux. This gastric tube was then brought out in the left upper abdomen in a separate incision and a Polish 20 gastric tube was inserted and a 6 mL of saline insufflated into the balloon. The stomach was sutured to the anterior abdominal wall with 3-0 silk to prevent retraction. The abdominal incision was closed following irrigation with Betadine and the fascia was closed with running suture of 2-0 Vicryl. The skin was closed with nazanin. The gastric tube was transected at the skin level and sutured in place with 4-0 Vicryl. The flange was then sutured to the skin utilizing 3-0 silk and the Isidoro drain likewise. The abdominal incision was from the wrist with a 4 x 4 and OpSite. The patient tolerated the procedure well, will be sent to ICU, intubated. JOB# [id number] [place]
[2017-09-29] MEDS: TPN 8.5%-70% CUSTOM IV SCH (17:45)
[2017-09-29] MEDS ORDERED: Chlorhexidine Gluconate 0.12% 15mL Mouthwash MM SCH (20:00)
[2017-09-29] MEDS: Chlorhexidine Gluconate 0.12% 15mL Mouthwash MM SCH (20:25)
--- NOTE | 2017-09-30 00:39 | Consultation ---
DATE OF CONSULTATION: 09/29/2017 Thank you very much, Dr. Rick for this consultation. HISTORY OF PRESENT ILLNESS: This is a 62-year-old male with history of cerebral palsy, mental disability. The patient presented with abdominal distention. No nausea, vomiting, was found that there is bowel obstruction, dilated colon, underwent subtotal colectomy with Chencho's pouch and a gastrostomy placement, lysis of adhesion, diverting ileostomy. The patient was placed on the ventilator postoperatively. The patient appears to be comfortable on IMV mode. No distress. PAST MEDICAL HISTORY: As above. SOCIAL HISTORY: No smoking. There is a [facility] resident. REVIEW OF SYSTEMS: Unable to obtain because of the patient's condition. PHYSICAL EXAMINATION: GENERAL: The patient is intubated, arousable, not in acute distress. VITAL SIGNS: Temperature 97.6, pulse ___, respiration is 22, blood pressure is 129/78, saturation is 97%. HEENT: Atraumatic, normocephalic. Pupils are equal and reactive to light and accommodation. Ears, nose and throat are normal. NECK: Supple. No JVD. CHEST: There are good breath sounds bilaterally. No wheezing or crackles. HEART: Regular rate and rhythm. ABDOMEN: Soft. EXTREMITIES: No edema. LABORATORY DATA: The chest x-ray showed ET tube in place, probably a little bit high, about 5 cm above genesis, some atelectasis in the left base and rotated x-ray, some dilated bowel loops as well. Sodium 134, potassium 4.3, BUN 9, creatinine 0.5. ABGs: pH 7.33, pCO2 of 42, pO2 of 160, bicarbonate 22, saturation 99%. WBC is 12.1, hemoglobin 14.3, hematocrit 42.9, platelets 357. IMPRESSION: A 62-year-old male status post excessive abdominal surgery secondary to large bowel obstruction, subtotal colectomy intubated postoperatively. PLAN: 1. Advance ET tube. 2. Nebulizer. 3. Antibiotics. 4. Ventilator support weaning as tolerated and followup chest x-ray and ABG. Thank you very much for this consultation. We will follow the patient with you. JOB# [id number]
[2017-09-30] MEDS: metroNIDAZOLE 500mg/NS 100mL 500 MG in Premix Fluid 1 BAG IV SCH ×3 (03:11→18:00)
[2017-09-30 04:36] LABS: HEMOGLOBIN 14.6 gm/dL (12-16); MANUAL DIFF REQUIRED? YES; MEAN CORPUSCULAR HEMOGLOBIN 32.6 pg (26.0-30.0); RED BLOOD COUNT 4.48 Mil/cmm (4.30-5.70)
[2017-09-30 04:41] LABS: HEMATOCRIT 43.3 % (41.0-60); MEAN CELL VOLUME 96.8 fl (80-99); MEAN CORPUSCULAR HGB CONC 33.7 pg (28.0-36.0); MEAN PLATELET VOLUME 7.7 fl; PLATELET COUNT 384 Th/cmm (150-400); RED CELL DISTRIBUTION WIDTH 13.6 % (11.5-20.0)
[2017-09-30 04:50] LABS: ANION GAP 7.3 (7.0-16.0); BUN - UREA NITROGEN 11 mg/dL (7-25); CALCIUM SERUM 8.9 mg/dL (8.6-10.3); CHLORIDE 104 mEq/L (98-107); CREATININE - SERUM 0.5 mg/dL (0.7-1.3); GFR AFRICAN-AMERICAN > 60.0 ml/min (>90); GFR NON AFRICAN-AMERICAN > 60.0 ml/min; GLUCOSE 162 mg/dL (70-105); MAGNESIUM 1.9 mg/dL (1.9-2.7); PHOSPHOROUS 2.5 mg/dL (2.5-5.0); POTASSIUM SERUM 4.3 mEq/L (3.5-5.1); SODIUM SERUM 132 mEq/L (136-145)
[2017-09-30 05:10] LABS: WHITE BLOOD COUNT 28.7 Th/cmm (4.8-10.8)
[2017-09-30 05:36] LABS: BAND NEUTROPHILE 3 % (0-10); LYMPHOCYTE 4 % (20-50); MONOCYTE 4 % (2-10); NEUTROPHILS 89 % (40-80); PLATELET ESTIMATE ADEQUATE (NORMAL); TOTAL CELLS COUNTED 100
[2017-09-30] MEDS: Ipratropium Neb 0.5 mg/2.5 mL UD IH SCH ×4 (07:19→19:38)
[2017-09-30] MEDS: Albuterol Nebulizer 2.5mg/3mL HHN SCH ×4 (07:19→19:37)
[2017-09-30] MEDS: POLYETHYLENE GLYCOL 3350 17 GM PACK PO SCH ×2 (08:08→16:51)
[2017-09-30] MEDS: Lactobacillus Rhamnosus GG 15 Billion CFU CAP.SPRINK PO SCH (08:08)
[2017-09-30] MEDS: ONFI 20MG PO SCH ×2 (08:08→16:51)
[2017-09-30] MEDS: Enoxaparin 40 mg/0.4 mL 0.4mL Syr SUBQ SCH (08:36)
[2017-09-30] MEDS: Chlorhexidine Gluconate 0.12% 15mL Mouthwash MM SCH ×2 (08:36→20:00)
[2017-09-30 08:56] LABS: ALBUMIN 3.1 gm/dL (4.2-5.5)
--- NOTE | 2017-09-30 09:00 | Diagnostic Imaging Report ---
Portable chest x-ray HISTORY: Shortness of breath Compared to prior exam of September 29, 2017, the patient is markedly rotated. Density is seen in the left lower hemithorax. This corresponds to parenchymal density noted on an earlier CT abdomen exam of September 23, 2017. Findings consistent with pneumonia and/or atelectasis. IMPRESSION: 1. No change since September 29, 2017. Persistent density within the left lower hemithorax consistent with pneumonia and/or atelectasis.
--- NOTE | 2017-09-30 09:24 | GI Progress Note ---
Subjective - Review of Systems Subjective: Now s/p subtotal colectomy and diverting ileostomy on 09/[address] Butler given megacolon Objective - Results Result Diagrams: 09/30/17 04:15 09/30/17 04:15 Recent Labs: Laboratory Last Values WBC 28.7 Th/cmm (4.8-10.8) H* D 09/30/17 04:15 RBC 4.48 Mil/cmm (4.30-5.70) 09/30/17 04:15 Hgb 14.6 gm/dL (12-16) 09/30/17 04:15 Hct 43.3 % (41.0-60) 09/30/17 04:15 MCV 96.8 fl (80-99) 09/30/17 04:15 MCH 32.6 pg (26.0-30.0) H 09/30/17 04:15 MCHC Differential 33.7 pg (28.0-36.0) 09/30/17 04:15 RDW 13.6 % (11.5-20.0) 09/30/17 04:15 Plt Count 384 Th/cmm (150-400) 09/30/17 04:15 MPV 7.7 fl 09/30/17 04:15 Neutrophils % 65.7 % (40.0-80.0) 09/29/17 04:55 Band Neutrophils % 3 % (0-10) 09/30/17 04:15 Lymphocytes % 10.4 % (20.0-50.0) L 09/29/17 04:55 Monocytes % 14.9 % (2.0-10.0) H 09/29/17 04:55 Eosinophils % 8.3 % (0.0-5.0) H 09/29/17 04:55 Basophils % 0.7 % (0.0-2.0) 09/29/17 04:55 Neutrophils (Manual) 89 % (40-80) H 09/30/17 04:15 Lymphocytes 4 % (20-50) L 09/30/17 04:15 Monocytes 4 % (2-10) 09/30/17 04:15 Platelet Estimate ADEQUATE (NORMAL) 09/30/17 04:15 PT 10.6 SECONDS (9.5-11.5) 09/28/17 05:20 INR 1.02 (0.5-1.4) 09/28/17 05:20 Specimen Source ARTEIAL 09/29/17 12:06 Sample Site LEFT 09/29/17 12:06 pH 7.33 (7.35-7.45) L 09/29/17 12:06 pCO2 42.0 mmHg (35.0-45.0) 09/29/17 12:06 pO2 160.0 mmHg (80.0-100.0) H 09/29/17 12:06 HCO3 22.0 mEq/L (20.0-26.0) 09/29/17 12:06 Base Excess 3.7 mEq/L (-3.0-3.0) H 09/29/17 12:06 O2 Saturation 99.0 % (92.0-100.0) 09/29/17 12:06 Cam Test Y 09/29/17 12:06 Vent Rate 10 09/29/17 12:06 Inspired O2 50 09/29/17 12:06 Tidal Volume 650 09/29/17 12:06 Pressure (ins/psv/peep) 10 09/29/17 12:06 Critical Value D. AZUL 09/29/17 12:06 Sodium 132 mEq/L (136-145) L 09/30/17 04:15 Potassium 4.3 mEq/L (3.5-5.1) 09/30/17 04:15 Chloride 104 mEq/L (98-107) 09/30/17 04:15 Carbon Dioxide 25.0 mEq/L (21.0-31.0) 09/30/17 04:15 Anion Gap 7.3 (7.0-16.0) 09/30/17 04:15 BUN 11 mg/dL (7-25) 09/30/17 04:15 Creatinine 0.5 mg/dL (0.7-1.3) L 09/30/17 04:15 Est GFR ( Amer) > 60.0 ml/min (>90) 09/30/17 04:15 Est GFR (Non-Af Amer) > 60.0 ml/min 09/30/17 04:15 BUN/Creatinine Ratio 22.0 09/30/17 04:15 Glucose 162 mg/dL (70-105) H 09/30/17 04:15 POC Glucose 118 MG/DL (70 - 105) H 09/29/17 03:05 Calcium 8.9 mg/dL (8.6-10.3) 09/30/17 04:15 Phosphorus 2.5 mg/dL (2.5-5.0) 09/30/17 04:15 Magnesium 1.9 mg/dL (1.9-2.7) 09/30/17 04:15 Total Bilirubin 0.4 mg/dL (0.3-1.0) 09/29/17 04:15 Direct Bilirubin 0.12 mg/dL (0.0-0.2) 09/29/17 04:15 AST 16 U/L (13-39) 09/29/17 04:15 ALT 11 U/L (7-52) 09/29/17 04:15 Alkaline Phosphatase 80 U/L (34-104) 09/29/17 04:15 Total Protein 6.9 gm/dL (6.0-8.3) 09/29/17 04:15 Albumin 3.1 gm/dL (4.2-5.5) L 09/30/17 04:15 Globulin 3.0 gm/dL 09/29/17 04:15 Albumin/Globulin Ratio 1.3 (1.0-1.8) 09/29/17 04:15 Prealbumin 13 mg/dL (10-36) 09/24/17 07:50 Triglycerides 43 mg/dL (<150) 09/30/17 04:15 Cholesterol 85 mg/dL (<200) 09/30/17 04:15 Lipase 17 U/L (11-82) 09/23/17 20:53 TSH 1.32 uIU/ml (0.34-5.60) 09/24/17 07:50 Urine Source [place] 09/23/17 20:33 Urine Color YELLOW 09/23/17 20:33 Urine Clarity CLOUDY (CLEAR) 09/23/17 20:33 Urine pH 6.5 (4.6 - 8.0) 09/23/17 20:33 Ur Specific [place] 1.020 (1.005-1.030) 09/23/17 20:33 Urine Protein 30 mg/dL (NEGATIVE) H 09/23/17 20:33 Urine Glucose (UA) NEGATIVE mg/dL (NEGATIVE) 09/23/17 20:33 Urine Ketones NEGATIVE mg/dL (NEGATIVE) 09/23/17 20:33 Urine Blood SMALL (NEGATIVE) H 09/23/17 20:33 Urine Nitrate POSITIVE (NEGATIVE) H 09/23/17 20:33 Urine Bilirubin NEGATIVE (NEGATIVE) 09/23/17 20:33 Urine Urobilinogen 0.2 E.U./dL (0.2 - 1.0) 09/23/17 20:33 Ur Leukocyte Esterase LARGE (NEGATIVE) H 09/23/17 20:33 Urine RBC 5-10 /hpf (0-5) H 09/23/17 20:33 Urine WBC 50-100 /hpf (0-5) H 09/23/17 20:33 Ur Epithelial Cells RARE /lpf (FEW) 09/23/17 20:33 Urine Bacteria MANY /hpf (NONE SEEN) H 09/23/17 20:33 Rheumatoid Factor 31.5 IU/mL (0.0-13.9) H 09/24/17 07:50 Blood Type A POSITIVE 09/28/17 05:30 Antibody Screen NEGATIVE 09/28/17 05:30 - Physical Exam Vitals and I&O: Vital Signs Temp 96.6 F 09/30/17 08:00 Pulse 101 09/30/17 09:00 Resp 17 09/30/17 09:00 BP 146/77 09/30/17 09:00 Pulse Ox 98 09/30/17 09:00 Intake & Output 09/29/17 09/30/17 09/30/17 18:59 06:59 18:59 Intake Total 3809.333 1455 Output Total 740 570 Balance 3069.333 885 Weight (lbs) 81.647 kg 81.647 kg Intake: Intake, IV Amount 3009.333 355 Cefepime 1 gm In Dextrose 50 50 5% 50 ml @ 100 mls/hr IV Q12H [facility] Rx#:[id number] Levetiracetam 500 mg In 105 105 Sodium Chloride 0.9% 100 ml @ 400 mls/hr IV Q12HR@ 1000,2200 [facility] Rx#: [id number] Multivitamin Inj 5 ml In 2605 Dextrose 70% 1,200 ml In Amino Acids 8.5% 1,200 ml In Intralipids 20% 200 ml @ 100 mls/hr IV .Q24H [facility] Rx#:[id number] Sodium Chloride 0.9% 250 149.333 ml @ 10 mls/hr IV Q24H [facility] Rx#:[id number] metroNIDAZOLE 500mg/NS 100 200 100mL 500 mg In Premix Fluid 1 bag @ 100 mls/hr IV Q8H [facility] Rx#:[id number] Oral 0 TPN/PPN 800 1100 Output: Drainage 70 Ileostomy 60 Left Lower Abdomen 10 Urine 500 500 Other 240 Other: Weight Source Bedscale Bedscale Active Medications: Current Medications Acetaminophen (Tylenol) 650 mg PO Q4H PRN PRN Reason: Pain Or Fever above 101 Stop: 11/22/17 22:23 Albuterol Sulfate (Albuterol 2.5mg/3ml Neb Ud) 2.5 mg HHN QIDRT [facility] Stop: 11/23/17 06:59 Last Admin: 09/30/17 07:19 Dose: 2.5 mg Bisacodyl (Dulcolax 10 Mg Supp) 10 mg RC DAILY PRN PRN Reason: Constipation Stop: 11/22/17 22:21 Last Admin: 09/28/17 00:44 Dose: 10 mg Chlorhexidine Gluconate (Peridex) 15 ml MM 0800,1999 [facility] Stop: 11/28/17 19:59 Last Admin: 09/30/17 08:36 Dose: 15 ml Enoxaparin Sodium (Lovenox) 40 mg SUBQ DAILY [facility] Stop: 11/29/17 08:59 Last Admin: 09/30/17 08:36 Dose: 40 mg Cefepime HCl 1 gm/ Dextrose 50 mls @ 100 mls/hr IV Q12H [facility] Stop: 11/22/17 21:59 Last Infusion: 09/30/17 01:30 Dose: Infused Levetiracetam 500 mg/ Sodium (Chloride) 105 mls @ 400 mls/hr IV Q12HR@1000, 2200 [facility] Stop: 11/23/17 12:14 Last Infusion: 09/30/17 00:40 Dose: Infused Multivitamins/Minerals 5 ml/Dextrose/ Amino Acids/Electrolytes/ Fat Emulsion Intravenous 2,605 mls @ 100 mls/hr IV .Q24H [facility] Stop: 11/25/17 14:59 Last Admin: 09/29/17 17:45 Dose: 100 mls/hr Sodium Chloride (Nacl 0.9%) 250 mls @ 10 mls/hr IV Q24H [facility] Stop: 11/25/17 14:59 Last Infusion: 09/29/17 07:36 Dose: 0 mls/hr Metronidazole 500 mg/ (Miscellaneous) 100 mls @ 100 mls/hr IV Q8H [facility] Stop: 11/28/17 10:59 Last Infusion: 09/30/17 04:10 Dose: Infused Lactated Ringer's (Lactated Ringer) 1,000 mls @ 0 mls/hr IV .Q0M [facility] PRN Reason: TKO Stop: 09/30/17 10:29 Ipratropium [place] (Atrovent Neb 0.5mg/2.5ml) 0.5 mg IH QIDRT [facility] Stop: 11/23/17 06:59 Last Admin: 09/30/17 07:19 Dose: 0.5 mg Lactobacillus Rhamnosus (Culturelle 15b) 1 each PO DAILY [facility] Stop: 11/25/17 08:59 Last Admin: 09/30/17 08:08 Dose: Not Given Levothyroxine Sodium 0.1 mg/ (Levothyroxine Sodium 0.025 mg) 0.125 mg PO QDAC [facility] Stop: 11/23/17 07:59 Last Admin: 09/30/17 08:11 Dose: Not Given Lorazepam (Ativan) 1 mg PO BID PRN; Protocol PRN Reason: Anxiety Stop: 11/22/17 22:21 Lorazepam (Ativan) 1 mg IV Q4H PRN; Protocol PRN Reason: Seizure Stop: 11/22/17 22:23 Last Admin: 09/26/17 09:28 Dose: 1 mg Meperidine HCl (Demerol) 12.5 mg IVP UD PRN PRN Reason: POST OP MODERATE PAIN Stop: 09/30/17 10:22 Meperidine HCl (Demerol) 12.5 mg IVP UD PRN PRN Reason: POST OP MODERATE PAIN Stop: 09/30/17 10:22 Meperidine HCl (Demerol) 25 mg IVP UD PRN PRN Reason: POST OP SEVERE PAIN Stop: 09/30/17 10:22 Meperidine HCl (Demerol) 12.5 mg IVP UD PRN PRN Reason: SHIVERING Stop: 09/30/17 10:22 Methotrexate (Methotrexate) 2.5 mg PO QWEEK 0730 [facility] PRN Reason: Protocol Stop: 11/23/17 07:59 Last Admin: 09/24/17 10:51 Dose: Not Given Mineral Oil (Mineral Oil 30 Ml) 30 ml PO BID [facility] Stop: 11/23/17 08:59 Last Admin: 09/30/17 08:08 Dose: Not Given Miscellaneous (Ppn Per Pharmacy) 1 [facility] PRN PRN PRN Reason: PROTOCOL Stop: 11/23/17 12:12 Miscellaneous (Probiotic Screen) 1 [facility] PRN PRN PRN Reason: PROTOCOL Stop: 11/24/17 12:14 Miscellaneous (Tpn Per Pharmacy) 1 [facility] PRN PRN PRN Reason: PROTOCOL Stop: 11/28/17 12:05 Morphine Sulfate (Morphine) 2 mg IVP Q4H PRN PRN Reason: Abdominal Pain Stop: 11/28/17 03:13 Last Admin: 09/29/17 15:42 Dose: 2 mg Pantoprazole Sodium (Protonix) 40 mg IVP DAILY [facility] Stop: 11/28/17 11:59 Last Admin: 09/30/17 08:36 Dose: 40 mg Onfi 20mg 1 PO BID [facility] Stop: 11/25/17 16:59 Last Admin: 09/30/17 08:08 Dose: Not Given Polyethylene Glycol (Miralax) 17 gm PO BID [facility] Stop: 11/23/17 08:59 Last Admin: 09/30/17 08:08 Dose: Not Given Simethicone (Mylicon) 80 mg PO QID PRN PRN Reason: Gas Stop: 11/24/17 12:58 Last Admin: 09/27/17 21:08 Dose: 80 mg Tamsulosin HCl (Flomax) 0.4 mg PO HS [facility] Stop: 11/23/17 20:59 Last Admin: 09/29/17 20:24 Dose: Not Given General: No acute distress HEENT: Atraumatic Neck: Supple Cardiovascular: Regular rate Abdomen: Soft, Distended, Other (JULIUS drain in place, bandage intact. ileostomy with green output), no Tender, no Mass, no Guarding - Procedures Procedures: Procedures Procedure Code Date BYPASS ILEUM TO CUTANEOUS, OPEN APPROACH [id number] 09/23/17 BYPASS STOMACH TO CUTANEOUS, OPEN APPROACH [id number] 09/23/17 ILEOSTOMY/JEJUNOSTOMY 01096 09/23/17 PARTIAL REMOVAL OF COLON 81567 09/23/17 PLACE GASTROSTOMY TUBE 78112 09/23/17 RESECTION OF LARGE INTESTINE, OPEN APPROACH [id number] 09/23/17 RESPIRATORY VENTILATION, LESS THAN 24 CONSECUTIVE HOURS [id number] 09/23/17 Assessment/Plan - Assessment Assessment: # Fecal impaction # Sigmoid colon dilation to 18cm # Cerebral Palsey and mental retardation Pt had been admitted several times in the recent past for fecal impactions, and has responded in the past to laxatives (from above and below). The pt has had a colonoscopy in 2017 as per report, and noted only stool in the colon, no obstructing mass. Sigmoid colon currently 18cm as of 09/24, massively dilated, and there is a distal impaction. As pt did not satisfactorly improve with conservative treatment, he was taken for subtotal colectomy with ileostomy placement on 09/[address] Butler. A g tube was also placed at gabriel time Plan: - post op care as per Dr Butler - eventually can start feeds via G tube once Dr Butler agrees - pulmonary care as per site leasing agent
[2017-09-30 09:32] LABS: pH 7.43 (7.35-7.45)
[2017-09-30 09:33] LABS: ALLEN TEST Positive
--- NOTE | 2017-09-30 09:45 | General Progress Note ---
Subjective - Review of Systems Service Date: 09/30/17 Events since last encounter: leukocytosis noted, on 2 antibiotics on vent, likely extubate today Objective - Results Result Diagrams: 09/30/17 04:15 09/30/17 04:15 Recent Labs: Laboratory Last Values WBC 28.7 Th/cmm (4.8-10.8) H* D 09/30/17 04:15 RBC 4.48 Mil/cmm (4.30-5.70) 09/30/17 04:15 Hgb 14.6 gm/dL (12-16) 09/30/17 04:15 Hct 43.3 % (41.0-60) 09/30/17 04:15 MCV 96.8 fl (80-99) 09/30/17 04:15 MCH 32.6 pg (26.0-30.0) H 09/30/17 04:15 MCHC Differential 33.7 pg (28.0-36.0) 09/30/17 04:15 RDW 13.6 % (11.5-20.0) 09/30/17 04:15 Plt Count 384 Th/cmm (150-400) 09/30/17 04:15 MPV 7.7 fl 09/30/17 04:15 Neutrophils % 65.7 % (40.0-80.0) 09/29/17 04:55 Band Neutrophils % 3 % (0-10) 09/30/17 04:15 Lymphocytes % 10.4 % (20.0-50.0) L 09/29/17 04:55 Monocytes % 14.9 % (2.0-10.0) H 09/29/17 04:55 Eosinophils % 8.3 % (0.0-5.0) H 09/29/17 04:55 Basophils % 0.7 % (0.0-2.0) 09/29/17 04:55 Neutrophils (Manual) 89 % (40-80) H 09/30/17 04:15 Lymphocytes 4 % (20-50) L 09/30/17 04:15 Monocytes 4 % (2-10) 09/30/17 04:15 Platelet Estimate ADEQUATE (NORMAL) 09/30/17 04:15 PT 10.6 SECONDS (9.5-11.5) 09/28/17 05:20 INR 1.02 (0.5-1.4) 09/28/17 05:20 Specimen Source Arterial 09/30/17 09:24 Sample Site Right Radial 09/30/17 09:24 pH 7.43 (7.35-7.45) 09/30/17 09:24 pCO2 39.0 mmHg (35.0-45.0) 09/30/17 09:24 pO2 98.0 mmHg (80.0-100.0) 09/30/17 09:24 HCO3 26.1 mEq/L (20.0-26.0) H 09/30/17 09:24 Base Excess 1.5 mEq/L (-3.0-3.0) 09/30/17 09:24 O2 Saturation 98.0 % (92.0-100.0) 09/30/17 09:24 Cam Test Positive 09/30/17 09:24 Vent Rate 6 09/30/17 09:24 Inspired O2 30 09/30/17 09:24 Tidal Volume 650 09/30/17 09:24 PEEP N/A 09/30/17 09:24 Pressure (ins/psv/peep) 10 09/30/17 09:24 Critical Value DM 09/30/17 09:24 Sodium 132 mEq/L (136-145) L 09/30/17 04:15 Potassium 4.3 mEq/L (3.5-5.1) 09/30/17 04:15 Chloride 104 mEq/L (98-107) 09/30/17 04:15 Carbon Dioxide 25.0 mEq/L (21.0-31.0) 09/30/17 04:15 Anion Gap 7.3 (7.0-16.0) 09/30/17 04:15 BUN 11 mg/dL (7-25) 09/30/17 04:15 Creatinine 0.5 mg/dL (0.7-1.3) L 09/30/17 04:15 Est GFR ( Amer) > 60.0 ml/min (>90) 09/30/17 04:15 Est GFR (Non-Af Amer) > 60.0 ml/min 09/30/17 04:15 BUN/Creatinine Ratio 22.0 09/30/17 04:15 Glucose 162 mg/dL (70-105) H 09/30/17 04:15 POC Glucose 118 MG/DL (70 - 105) H 09/29/17 03:05 Calcium 8.9 mg/dL (8.6-10.3) 09/30/17 04:15 Phosphorus 2.5 mg/dL (2.5-5.0) 09/30/17 04:15 Magnesium 1.9 mg/dL (1.9-2.7) 09/30/17 04:15 Total Bilirubin 0.4 mg/dL (0.3-1.0) 09/29/17 04:15 Direct Bilirubin 0.12 mg/dL (0.0-0.2) 09/29/17 04:15 AST 16 U/L (13-39) 09/29/17 04:15 ALT 11 U/L (7-52) 09/29/17 04:15 Alkaline Phosphatase 80 U/L (34-104) 09/29/17 04:15 Total Protein 6.9 gm/dL (6.0-8.3) 09/29/17 04:15 Albumin 3.1 gm/dL (4.2-5.5) L 09/30/17 04:15 Globulin 3.0 gm/dL 09/29/17 04:15 Albumin/Globulin Ratio 1.3 (1.0-1.8) 09/29/17 04:15 Prealbumin 13 mg/dL (10-36) 09/24/17 07:50 Triglycerides 43 mg/dL (<150) 09/30/17 04:15 Cholesterol 85 mg/dL (<200) 09/30/17 04:15 Lipase 17 U/L (11-82) 09/23/17 20:53 TSH 1.32 uIU/ml (0.34-5.60) 09/24/17 07:50 Urine Source [place] 09/23/17 20:33 Urine Color YELLOW 09/23/17 20:33 Urine Clarity CLOUDY (CLEAR) 09/23/17 20:33 Urine pH 6.5 (4.6 - 8.0) 09/23/17 20:33 Ur Specific [place] 1.020 (1.005-1.030) 09/23/17 20:33 Urine Protein 30 mg/dL (NEGATIVE) H 09/23/17 20:33 Urine Glucose (UA) NEGATIVE mg/dL (NEGATIVE) 09/23/17 20:33 Urine Ketones NEGATIVE mg/dL (NEGATIVE) 09/23/17 20:33 Urine Blood SMALL (NEGATIVE) H 09/23/17 20:33 Urine Nitrate POSITIVE (NEGATIVE) H 09/23/17 20:33 Urine Bilirubin NEGATIVE (NEGATIVE) 09/23/17 20:33 Urine Urobilinogen 0.2 E.U./dL (0.2 - 1.0) 09/23/17 20:33 Ur Leukocyte Esterase LARGE (NEGATIVE) H 09/23/17 20:33 Urine RBC 5-10 /hpf (0-5) H 09/23/17 20:33 Urine WBC 50-100 /hpf (0-5) H 09/23/17 20:33 Ur Epithelial Cells RARE /lpf (FEW) 09/23/17 20:33 Urine Bacteria MANY /hpf (NONE SEEN) H 09/23/17 20:33 Rheumatoid Factor 31.5 IU/mL (0.0-13.9) H 09/24/17 07:50 Blood Type A POSITIVE 09/28/17 05:30 Antibody Screen NEGATIVE 09/28/17 05:30 - Physical Exam Vitals and I&O: Vital Signs Temp 96.6 F 09/30/17 08:00 Pulse 95 09/30/17 09:42 Resp 17 09/30/17 09:00 BP 146/77 09/30/17 09:00 Pulse Ox 99 09/30/17 09:42 Intake & Output 09/29/17 09/30/17 09/30/17 18:59 06:59 18:59 Intake Total 3809.333 1455 Output Total 740 570 Balance 3069.333 885 Weight (lbs) 81.647 kg 81.647 kg Intake: Intake, IV Amount 3009.333 355 Cefepime 1 gm In Dextrose 50 50 5% 50 ml @ 100 mls/hr IV Q12H [facility] Rx#:[id number] Levetiracetam 500 mg In 105 105 Sodium Chloride 0.9% 100 ml @ 400 mls/hr IV Q12HR@ 1000,2200 [facility] Rx#: [id number] Multivitamin Inj 5 ml In 2605 Dextrose 70% 1,200 ml In Amino Acids 8.5% 1,200 ml In Intralipids 20% 200 ml @ 100 mls/hr IV .Q24H [facility] Rx#:[id number] Sodium Chloride 0.9% 250 149.333 ml @ 10 mls/hr IV Q24H [facility] Rx#:[id number] metroNIDAZOLE 500mg/NS 100 200 100mL 500 mg In Premix Fluid 1 bag @ 100 mls/hr IV Q8H [facility] Rx#:[id number] Oral 0 TPN/PPN 800 1100 Output: Drainage 70 Ileostomy 60 Left Lower Abdomen 10 Urine 500 500 Other 240 Other: Weight Source Bedscale Bedscale Active Medications: Current Medications Acetaminophen (Tylenol) 650 mg PO Q4H PRN PRN Reason: Pain Or Fever above 101 Stop: 11/22/17 22:23 Albuterol Sulfate (Albuterol 2.5mg/3ml Neb Ud) 2.5 mg HHN QIDRT [facility] Stop: 11/23/17 06:59 Last Admin: 09/30/17 07:19 Dose: 2.5 mg Bisacodyl (Dulcolax 10 Mg Supp) 10 mg RC DAILY PRN PRN Reason: Constipation Stop: 11/22/17 22:21 Last Admin: 09/28/17 00:44 Dose: 10 mg Chlorhexidine Gluconate (Peridex) 15 ml MM 0800,2000 [facility] Stop: 11/28/17 19:59 Last Admin: 09/30/17 08:36 Dose: 15 ml Enoxaparin Sodium (Lovenox) 40 mg SUBQ DAILY [facility] Stop: 11/29/17 08:59 Last Admin: 09/30/17 08:36 Dose: 40 mg Cefepime HCl 1 gm/ Dextrose 50 mls @ 100 mls/hr IV Q12H [facility] Stop: 11/22/17 21:59 Last Infusion: 09/30/17 01:30 Dose: Infused Levetiracetam 500 mg/ Sodium (Chloride) 105 mls @ 400 mls/hr IV Q12HR@1000, 2200 [facility] Stop: 11/23/17 12:14 Last Infusion: 09/30/17 00:40 Dose: Infused Multivitamins/Minerals 5 ml/Dextrose/ Amino Acids/Electrolytes/ Fat Emulsion Intravenous 2,605 mls @ 100 mls/hr IV .Q24H [facility] Stop: 11/25/17 14:59 Last Admin: 09/29/17 17:45 Dose: 100 mls/hr Sodium Chloride (Nacl 0.9%) 250 mls @ 10 mls/hr IV Q24H [facility] Stop: 11/25/17 14:59 Last Infusion: 09/29/17 07:36 Dose: 0 mls/hr Metronidazole 500 mg/ (Miscellaneous) 100 mls @ 100 mls/hr IV Q8H [facility] Stop: 11/28/17 10:59 Last Infusion: 09/30/17 04:10 Dose: Infused Lactated Ringer's (Lactated Ringer) 1,000 mls @ 0 mls/hr IV .Q0M [facility] PRN Reason: TKO Stop: 09/30/17 10:29 Ipratropium [place] (Atrovent Neb 0.5mg/2.5ml) 0.5 mg IH QIDRT [facility] Stop: 11/23/17 06:59 Last Admin: 09/30/17 07:19 Dose: 0.5 mg Lactobacillus Rhamnosus (Culturelle 15b) 1 each PO DAILY [facility] Stop: 11/25/17 08:59 Last Admin: 09/30/17 08:08 Dose: Not Given Levothyroxine Sodium 0.1 mg/ (Levothyroxine Sodium 0.025 mg) 0.125 mg PO QDAC [facility] Stop: 11/23/17 07:59 Last Admin: 09/30/17 08:11 Dose: Not Given Lorazepam (Ativan) 1 mg PO BID PRN; Protocol PRN Reason: Anxiety Stop: 11/22/17 22:21 Lorazepam (Ativan) 1 mg IV Q4H PRN; Protocol PRN Reason: Seizure Stop: 11/22/17 22:23 Last Admin: 09/26/17 09:28 Dose: 1 mg Meperidine HCl (Demerol) 12.5 mg IVP UD PRN PRN Reason: POST OP MODERATE PAIN Stop: 09/30/17 10:22 Meperidine HCl (Demerol) 12.5 mg IVP UD PRN PRN Reason: POST OP MODERATE PAIN Stop: 09/30/17 10:22 Meperidine HCl (Demerol) 25 mg IVP UD PRN PRN Reason: POST OP SEVERE PAIN Stop: 09/30/17 10:22 Meperidine HCl (Demerol) 12.5 mg IVP UD PRN PRN Reason: SHIVERING Stop: 09/30/17 10:22 Methotrexate (Methotrexate) 2.5 mg PO QWEEK 0730 [facility] PRN Reason: Protocol Stop: 11/23/17 07:59 Last Admin: 09/24/17 10:51 Dose: Not Given Mineral Oil (Mineral Oil 30 Ml) 30 ml PO BID [facility] Stop: 11/23/17 08:59 Last Admin: 09/30/17 08:08 Dose: Not Given Miscellaneous (Ppn Per Pharmacy) 1 [facility] PRN PRN PRN Reason: PROTOCOL Stop: 11/23/17 12:12 Miscellaneous (Probiotic Screen) 1 [facility] PRN PRN PRN Reason: PROTOCOL Stop: 11/24/17 12:14 Miscellaneous (Tpn Per Pharmacy) 1 [facility] PRN PRN PRN Reason: PROTOCOL Stop: 11/28/17 12:05 Morphine Sulfate (Morphine) 2 mg IVP Q4H PRN PRN Reason: Abdominal Pain Stop: 11/28/17 03:13 Last Admin: 09/29/17 15:42 Dose: 2 mg Pantoprazole Sodium (Protonix) 40 mg IVP DAILY CHANDAN Stop: 11/28/17 11:59 Last Admin: 09/30/17 08:36 Dose: 40 mg Onfi 20mg 1 PO BID CHANDAN Stop: 11/25/17 16:59 Last Admin: 09/30/17 08:08 Dose: Not Given Polyethylene Glycol (Miralax) 17 gm PO BID CHANDAN Stop: 11/23/17 08:59 Last Admin: 09/30/17 08:08 Dose: Not Given Simethicone (Mylicon) 80 mg PO QID PRN PRN Reason: Gas Stop: 11/24/17 12:58 Last Admin: 09/27/17 21:08 Dose: 80 mg Tamsulosin HCl (Flomax) 0.4 mg PO HS CHANDAN Stop: 11/23/17 20:59 Last Admin: 09/29/17 20:24 Dose: Not Given General: No acute distress HEENT: Atraumatic Neck: Supple Cardiovascular: Regular rate Abdomen: Soft, Distended, Other (JULIUS drain in place, bandage intact. ileostomy with green output), no Tender, no Mass, no Guarding - Procedures Procedures: Procedures Procedure Code Date BYPASS ILEUM TO CUTANEOUS, OPEN APPROACH [id number] 09/23/17 BYPASS STOMACH TO CUTANEOUS, OPEN APPROACH [id number] 09/23/17 ILEOSTOMY/JEJUNOSTOMY 65375 09/23/17 PARTIAL REMOVAL OF COLON 03840 09/23/[address] PL[address] GASTROSTOMY TUBE 71548 09/23/17 RESECTION OF LARGE INTESTINE, OPEN APPROACH [id number] 09/23/17 RESPIRATORY VENTILATION, LESS THAN 24 CONSECUTIVE HOURS [id number] 09/23/17 Nutritional Asmnt/Malnutr-PDOC - Dietary Evaluation Malnutrition Findings (Please click <Entered> for more info): Nutritional Asmnt/Malnutrition Start: 09/27/17 11: 26 Text: Status: Complete Freq: Document 09/27/17 11:26 MG (Rec: 09/27/17 11:34 [facility] W[facility]- [email or web address]) Nutritional Asmnt/Malnutrition Patient General Information Diagnosis abdominal pain, increased abdominal distention Pertinent Medical Hx/Surgical Hx MR, CP, developmental delay, sezure, generalized contractures, bedridden, Hx of megacolon Subjective Information Pt asleep in bed at time of visit Current Diet Order/ Nutrition Support PPN Pertinent Medications culturelle, mineral oil, miralax, mylicon Pertinent Labs 09/27: Na 134, K 4.0, Cl 100, CO2 28.5, BUN 8, Cr 0.5, Ca 9. 7, glucose 102, Mg 1.7, phos 2 .4 Nutritional Hx/Data Height 1.78 m Height (Calculated Centimeters) 177.8 Current Weight (lbs) 82.1 kg Weight (Calculated Kilograms) 82.1 Weight (Calculated Grams) 03450.2 Body Mass Index (BMI) 25.9 Weight Status Overweight GI Symptoms GI Symptoms None Last BM 09/27 Cultural/Ethnic/Jewish Belief None noted Usual diet at home TF Skin Integrity/Comment: kenny score 13 Estimated Nutritional Goals BEE in Kcals: Using Current wt Calories/Kcals/Kg 30kcals/kg Kcals Calculated 2460kcals/day Protein: Using Current wt Protein g/k.2+g/day Protein Calculated 98g+/day Fluid: ml per MD Nutritional Problem 1. Problem Problem Altered GI function related to Etiology GI function as evidenced by Signs/Symptoms: Abdominal distention, abdominal pain. Intervention/Recommendation Comments Recommend initiating PN via central line to adequately meet estimated needs Expected Outcomes/Goals Expected Outcomes/Goals Nutrition needs met
[2017-09-30 11:21] LABS: pH 7.41 (7.35-7.45)
[2017-09-30 11:22] LABS: ALLEN TEST Positive
--- NOTE | 2017-09-30 13:20 | Internal Medicine Prog Note ---
Internal Medicine Subjective - Subjective Service Date: 09/30/17 (s/p extubation, tolerating well) Patient seen and examined:: with staff Patient is:: awake Per staff patient has:: tolerating meds Internal Medicine Objective - Results Result Diagrams: 09/30/17 04:15 09/30/17 04:15 Recent Labs: Laboratory Last Values WBC 28.7 Th/cmm (4.8-10.8) H* D 09/30/17 04:15 RBC 4.48 Mil/cmm (4.30-5.70) 09/30/17 04:15 Hgb 14.6 gm/dL (12-16) 09/30/17 04:15 Hct 43.3 % (41.0-60) 09/30/17 04:15 MCV 96.8 fl (80-99) 09/30/17 04:15 MCH 32.6 pg (26.0-30.0) H 09/30/17 04:15 MCHC Differential 33.7 pg (28.0-36.0) 09/30/17 04:15 RDW 13.6 % (11.5-20.0) 09/30/17 04:15 Plt Count 384 Th/cmm (150-400) 09/30/17 04:15 MPV 7.7 fl 09/30/17 04:15 Neutrophils % 65.7 % (40.0-80.0) 09/29/17 04:55 Band Neutrophils % 3 % (0-10) 09/30/17 04:15 Lymphocytes % 10.4 % (20.0-50.0) L 09/29/17 04:55 Monocytes % 14.9 % (2.0-10.0) H 09/29/17 04:55 Eosinophils % 8.3 % (0.0-5.0) H 09/29/17 04:55 Basophils % 0.7 % (0.0-2.0) 09/29/17 04:55 Neutrophils (Manual) 89 % (40-80) H 09/30/17 04:15 Lymphocytes 4 % (20-50) L 09/30/17 04:15 Monocytes 4 % (2-10) 09/30/17 04:15 Platelet Estimate ADEQUATE (NORMAL) 09/30/17 04:15 PT 10.6 SECONDS (9.5-11.5) 09/28/17 05:20 INR 1.02 (0.5-1.4) 09/28/17 05:20 Specimen Source Arterial 09/30/17 11:15 Sample Site Right Radial 09/30/17 11:15 pH 7.41 (7.35-7.45) 09/30/17 11:15 pCO2 43.0 mmHg (35.0-45.0) 09/30/17 11:15 pO2 118.0 mmHg (80.0-100.0) H 09/30/17 11:15 HCO3 26.8 mEq/L (20.0-26.0) H 09/30/17 11:15 Base Excess 2.3 mEq/L (-3.0-3.0) 09/30/17 11:15 O2 Saturation 99.0 % (92.0-100.0) 09/30/17 11:15 Cam Test Positive 09/30/17 11:15 Vent Rate N/A 09/30/17 11:15 Inspired O2 40 09/30/17 11:15 Tidal Volume N/A 09/30/17 11:15 PEEP N/A 09/30/17 11:15 Pressure (ins/psv/peep) N/A 09/30/17 11:15 Critical Value DM 09/30/17 11:15 Sodium 132 mEq/L (136-145) L 09/30/17 04:15 Potassium 4.3 mEq/L (3.5-5.1) 09/30/17 04:15 Chloride 104 mEq/L (98-107) 09/30/17 04:15 Carbon Dioxide 25.0 mEq/L (21.0-31.0) 09/30/17 04:15 Anion Gap 7.3 (7.0-16.0) 09/30/17 04:15 BUN 11 mg/dL (7-25) 09/30/17 04:15 Creatinine 0.5 mg/dL (0.7-1.3) L 09/30/17 04:15 Est GFR ( Amer) > 60.0 ml/min (>90) 09/30/17 04:15 Est GFR (Non-Af Amer) > 60.0 ml/min 09/30/17 04:15 BUN/Creatinine Ratio 22.0 09/30/17 04:15 Glucose 162 mg/dL (70-105) H 09/30/17 04:15 POC Glucose 118 MG/DL (70 - 105) H 09/29/17 03:05 Calcium 8.9 mg/dL (8.6-10.3) 09/30/17 04:15 Phosphorus 2.5 mg/dL (2.5-5.0) 09/30/17 04:15 Magnesium 1.9 mg/dL (1.9-2.7) 09/30/17 04:15 Total Bilirubin 0.4 mg/dL (0.3-1.0) 09/29/17 04:15 Direct Bilirubin 0.12 mg/dL (0.0-0.2) 09/29/17 04:15 AST 16 U/L (13-39) 09/29/17 04:15 ALT 11 U/L (7-52) 09/29/17 04:15 Alkaline Phosphatase 80 U/L (34-104) 09/29/17 04:15 Total Protein 6.9 gm/dL (6.0-8.3) 09/29/17 04:15 Albumin 3.1 gm/dL (4.2-5.5) L 09/30/17 04:15 Globulin 3.0 gm/dL 09/29/17 04:15 Albumin/Globulin Ratio 1.3 (1.0-1.8) 09/29/17 04:15 Prealbumin 13 mg/dL (10-36) 09/24/17 07:50 Triglycerides 43 mg/dL (<150) 09/30/17 04:15 Cholesterol 85 mg/dL (<200) 09/30/17 04:15 Lipase 17 U/L (11-82) 09/23/17 20:53 TSH 1.32 uIU/ml (0.34-5.60) 09/24/17 07:50 Urine Source [place] 09/23/17 20:33 Urine Color YELLOW 09/23/17 20:33 Urine Clarity CLOUDY (CLEAR) 09/23/17 20:33 Urine pH 6.5 (4.6 - 8.0) 09/23/17 20:33 Ur Specific [place] 1.020 (1.005-1.030) 09/23/17 20:33 Urine Protein 30 mg/dL (NEGATIVE) H 09/23/17 20:33 Urine Glucose (UA) NEGATIVE mg/dL (NEGATIVE) 09/23/17 20:33 Urine Ketones NEGATIVE mg/dL (NEGATIVE) 09/23/17 20:33 Urine Blood SMALL (NEGATIVE) H 09/23/17 20:33 Urine Nitrate POSITIVE (NEGATIVE) H 09/23/17 20:33 Urine Bilirubin NEGATIVE (NEGATIVE) 09/23/17 20:33 Urine Urobilinogen 0.2 E.U./dL (0.2 - 1.0) 09/23/17 20:33 Ur Leukocyte Esterase LARGE (NEGATIVE) H 09/23/17 20:33 Urine RBC 5-10 /hpf (0-5) H 09/23/17 20:33 Urine WBC 50-100 /hpf (0-5) H 09/23/17 20:33 Ur Epithelial Cells RARE /lpf (FEW) 09/23/17 20:33 Urine Bacteria MANY /hpf (NONE SEEN) H 09/23/17 20:33 Rheumatoid Factor 31.5 IU/mL (0.0-13.9) H 09/24/17 07:50 Blood Type A POSITIVE 09/28/17 05:30 Antibody Screen NEGATIVE 09/28/17 05:30 - Physical Exam Vitals and I&O: Vital Signs Temp 96.6 F 09/30/17 08:00 Pulse 105 09/30/17 11:42 Resp 18 09/30/17 11:42 BP 146/77 09/30/17 09:00 Pulse Ox 98 09/30/17 11:42 Intake & Output 09/29/17 09/30/17 09/30/17 18:59 06:59 18:59 Intake Total 3809.333 1455 Output Total 740 570 Balance 3069.333 885 Weight (lbs) 180 lb 180 lb Intake: Intake, IV Amount 3009.333 355 Cefepime 1 gm In Dextrose 50 50 5% 50 ml @ 100 mls/hr IV Q12H [facility] Rx#:[id number] Levetiracetam 500 mg In 105 105 Sodium Chloride 0.9% 100 ml @ 400 mls/hr IV Q12HR@ 1000,2200 [facility] Rx#: [id number] Multivitamin Inj 5 ml In 2605 Dextrose 70% 1,200 ml In Amino Acids 8.5% 1,200 ml In Intralipids 20% 200 ml @ 100 mls/hr IV .Q24H [facility] Rx#:[id number] Sodium Chloride 0.9% 250 149.333 ml @ 10 mls/hr IV Q24H [facility] Rx#:[id number] metroNIDAZOLE 500mg/NS 100 200 100mL 500 mg In Premix Fluid 1 bag @ 100 mls/hr IV Q8H [facility] Rx#:[id number] Oral 0 TPN/PPN 800 1100 Output: Drainage 70 Ileostomy 60 Left Lower Abdomen 10 Urine 500 500 Other 240 Other: Weight Source Bedscale Bedscale Active Medications: Current Medications Acetaminophen (Tylenol) 650 mg PO Q4H PRN PRN Reason: Pain Or Fever above 101 Stop: 11/22/17 22:23 Albuterol Sulfate (Albuterol 2.5mg/3ml Neb Ud) 2.5 mg HHN QIDRT [facility] Stop: 11/23/17 06:59 Last Admin: 09/30/17 11:41 Dose: 2.5 mg Bisacodyl (Dulcolax 10 Mg Supp) 10 mg RC DAILY PRN PRN Reason: Constipation Stop: 11/22/17 22:21 Last Admin: 09/28/17 00:44 Dose: 10 mg Chlorhexidine Gluconate (Peridex) 15 ml MM 0800,1999 [facility] Stop: 11/28/17 19:59 Last Admin: 09/30/17 08:36 Dose: 15 ml Enoxaparin Sodium (Lovenox) 40 mg SUBQ DAILY [facility] Stop: 11/29/17 08:59 Last Admin: 09/30/17 08:36 Dose: 40 mg Cefepime HCl 1 gm/ Dextrose 50 mls @ 100 mls/hr IV Q12H [facility] Stop: 11/22/17 21:59 Last Admin: 09/30/17 09:49 Dose: 100 mls/hr Levetiracetam 500 mg/ Sodium (Chloride) 105 mls @ 400 mls/hr IV Q12HR@1000, 2200 [facility] Stop: 11/23/17 12:14 Last Admin: 09/30/17 09:48 Dose: 400 mls/hr Multivitamins/Minerals 5 ml/Dextrose/ Amino Acids/Electrolytes/ Fat Emulsion Intravenous 2,605 mls @ 100 mls/hr IV .Q24H [facility] Stop: 11/25/17 14:59 Last Admin: 09/29/17 17:45 Dose: 100 mls/hr Sodium Chloride (Nacl 0.9%) 250 mls @ 10 mls/hr IV Q24H [facility] Stop: 11/25/17 14:59 Last Infusion: 09/29/17 07:36 Dose: 0 mls/hr Metronidazole 500 mg/ (Miscellaneous) 100 mls @ 100 mls/hr IV Q8H [facility] Stop: 11/28/17 10:59 Last Admin: 09/30/17 10:33 Dose: 100 mls/hr Insulin Aspart (Novolog Insulin Sliding Scale) 0 units SUBQ Q6HR [facility] PRN Reason: Protocol Stop: 11/29/17 17:59 Ipratropium [place] (Atrovent Neb 0.5mg/2.5ml) 0.5 mg IH QIDRT [facility] Stop: 11/23/17 06:59 Last Admin: 09/30/17 11:41 Dose: 0.5 mg Lactobacillus Rhamnosus (Culturelle 15b) 1 each PO DAILY [facility] Stop: 11/25/17 08:59 Last Admin: 09/30/17 08:08 Dose: Not Given Levothyroxine Sodium 0.1 mg/ (Levothyroxine Sodium 0.025 mg) 0.125 mg PO QDAC [facility] Stop: 11/23/17 07:59 Last Admin: 09/30/17 08:11 Dose: Not Given Lorazepam (Ativan) 1 mg PO BID PRN; Protocol PRN Reason: Anxiety Stop: 11/22/17 22:21 Lorazepam (Ativan) 1 mg IV Q4H PRN; Protocol PRN Reason: Seizure Stop: 11/22/17 22:23 Last Admin: 09/26/17 09:28 Dose: 1 mg Methotrexate (Methotrexate) 2.5 mg PO QWEEK 0730 [facility] PRN Reason: Protocol Stop: 11/23/17 07:59 Last Admin: 09/24/17 10:51 Dose: Not Given Mineral Oil (Mineral Oil 30 Ml) 30 ml PO BID [facility] Stop: 11/23/17 08:59 Last Admin: 09/30/17 08:08 Dose: Not Given Miscellaneous (Probiotic Screen) 1 ea PRN PRN PRN Reason: PROTOCOL Stop: 11/24/17 12:14 Miscellaneous (Tpn Per Pharmacy) 1 ea PRN PRN PRN Reason: PROTOCOL Stop: 11/28/17 12:05 Morphine Sulfate (Morphine) 2 mg IVP Q4H PRN PRN Reason: Abdominal Pain Stop: 11/28/17 03:13 Last Admin: 09/29/17 15:42 Dose: 2 mg Pantoprazole Sodium (Protonix) 40 mg IVP DAILY [facility] Stop: 11/28/17 11:59 Last Admin: 09/30/17 08:36 Dose: 40 mg Onfi 20mg 1 PO BID [facility] Stop: 11/25/17 16:59 Last Admin: 09/30/17 08:08 Dose: Not Given Polyethylene Glycol (Miralax) 17 gm PO BID [facility] Stop: 11/23/17 08:59 Last Admin: 09/30/17 08:08 Dose: Not Given Simethicone (Mylicon) 80 mg PO QID PRN PRN Reason: Gas Stop: 11/24/17 12:58 Last Admin: 09/27/17 21:08 Dose: 80 mg Tamsulosin HCl (Flomax) 0.4 mg PO HS [facility] Stop: 11/23/17 20:59 Last Admin: 09/29/17 20:24 Dose: Not Given General: weak HEENT: NC/AT, PERRLA Lungs: CTAB Cardiovascular: RRR, Normal S1, Normal S2, without murmur Abdomen: distended Neurological: bedbound - Procedures Procedures: Procedures Procedure Code Date BYPASS ILEUM TO CUTANEOUS, OPEN APPROACH [id number] 09/23/17 BYPASS STOMACH TO CUTANEOUS, OPEN APPROACH [id number] 09/23/17 ILEOSTOMY/JEJUNOSTOMY 75720 09/23/17 PARTIAL REMOVAL OF COLON 44125 09/23/17 PLACE GASTROSTOMY TUBE 53087 09/23/17 RESECTION OF LARGE INTESTINE, OPEN APPROACH [id number] 09/23/17 RESPIRATORY VENTILATION, LESS THAN 24 CONSECUTIVE HOURS [id number] 09/23/17 Internal Medicine Assmt/Plan - Assessment Assessment: abdominal pain abdominal distention toxic bjorn colon acute uti hyponatremia acute dehydration MR cp leukocytosis seizure protein calorie malnutrition generalized weakness - Plan Plan: will follow medical economics consultant recommendations continue with ppn for nutritional support cbc/bmp in am continue current orders Nutritional Asmnt/Malnutr-PDOC - Dietary Evaluation Malnutrition Findings (Please click <Entered> for more info): Nutritional Asmnt/Malnutrition Start: 09/27/17 11: 26 Text: Status: Complete Freq: Document 09/27/17 11:26 MG (Rec: 09/27/17 11:34 MG [id number]) Nutritional Asmnt/Malnutrition Patient General Information Diagnosis abdominal pain, increased abdominal distention Pertinent Medical Hx/Surgical Hx MR, CP, developmental delay, sezure, generalized contractures, bedridden, Hx of megacolon Subjective Information Pt asleep in bed at time of visit Current Diet Order/ Nutrition Support PPN Pertinent Medications culturelle, mineral oil, miralax, mylicon Pertinent Labs 09/27: Na 134, K 4.0, Cl 100, CO2 28.5, BUN 8, Cr 0.5, Ca 9. 7, glucose 102, Mg 1.7, phos 2 .4 Nutritional Hx/Data Height 5 ft 10 in Height (Calculated Centimeters) 177.8 Current Weight (lbs) 181 lb Weight (Calculated Kilograms) 82.1 Weight (Calculated Grams) 26181.2 Body Mass Index (BMI) 25.9 Weight Status Overweight GI Symptoms GI Symptoms None Last BM 09/27 Cultural/Ethnic/Sikh Belief None noted Usual diet at home TF Skin Integrity/Comment: kenny score 13 Estimated Nutritional Goals BEE in Kcals: Using Current wt Calories/Kcals/Kg 30kcals/kg Kcals Calculated 2460kcals/day Protein: Using Current wt Protein g/k.2+g/day Protein Calculated 98g+/day Fluid: ml per MD Nutritional Problem 1. Problem Problem Altered GI function related to Etiology GI function as evidenced by Signs/Symptoms: Abdominal distention, abdominal pain. Intervention/Recommendation Comments Recommend initiating PN via central line to adequately meet estimated needs Expected Outcomes/Goals Expected Outcomes/Goals Nutrition needs met
[2017-09-30] MEDS: TPN 8.5%-70% CUSTOM IV SCH (16:49)
[2017-09-30] MEDS ORDERED: Morphine Sulfate 4 mg/mL 1mL Syr ONE (17:29)
[2017-09-30] MEDS: Morphine Sulfate 2 mg/mL 1mL Syr IVP PRN (17:48)
[2017-09-30] MEDS: INSULIN ASPART SLIDING SCALE 100 UNITS/ML UNIT SUBQ SCH (17:55)
[2017-09-30] MEDS ORDERED: Morphine Sulfate 4 mg/mL 1mL Syr IV PRN (17:59)
[2017-09-30] MEDS: Sodium Chloride 0.9% 250 ML IV SCH (18:09)
[2017-10-01] MEDS: metroNIDAZOLE 500mg/NS 100mL 500 MG in Premix Fluid 1 BAG IV SCH ×3 (02:29→18:04)
[2017-10-01 05:09] LABS: HEMOGLOBIN 13.6 gm/dL (12-16); MANUAL DIFF REQUIRED? YES; PLATELET COUNT 309 Th/cmm (150-400)
[2017-10-01 05:14] LABS: HEMATOCRIT 40.3 % (41.0-60); MEAN CORPUSCULAR HEMOGLOBIN 33.1 pg (26.0-30.0); MEAN CORPUSCULAR HGB CONC 33.7 pg (28.0-36.0); MEAN PLATELET VOLUME 7.6 fl; RED BLOOD COUNT 4.12 Mil/cmm (4.30-5.70); RED CELL DISTRIBUTION WIDTH 13.6 % (11.5-20.0)
[2017-10-01 05:16] LABS: ANION GAP 9.2 (7.0-16.0); BUN - UREA NITROGEN 11 mg/dL (7-25); CALCIUM SERUM 8.8 mg/dL (8.6-10.3); CARBON DIOXIDE 25.5 mEq/L (21.0-31.0); CHLORIDE 100 mEq/L (98-107); CREATININE - SERUM 0.4 mg/dL (0.7-1.3); GFR AFRICAN-AMERICAN > 60.0 ml/min (>90); GFR NON AFRICAN-AMERICAN > 60.0 ml/min; GLUCOSE 141 mg/dL (70-105); PHOSPHOROUS 2.4 mg/dL (2.5-5.0); POTASSIUM SERUM 4.7 mEq/L (3.5-5.1); SODIUM SERUM 130 mEq/L (136-145)
[2017-10-01 05:33] LABS: WHITE BLOOD COUNT 22.6 Th/cmm (4.8-10.8)
[2017-10-01] MEDS: INSULIN ASPART SLIDING SCALE 100 UNITS/ML UNIT SUBQ SCH ×4 (06:00→17:57)
[2017-10-01 06:22] LABS: BAND NEUTROPHILE 6 % (0-10); EOSINOPHIL 1 % (0-5); LYMPHOCYTE 13 % (20-50); MONOCYTE 9 % (2-10); NEUTROPHILS 71 % (40-80); TOTAL CELLS COUNTED 100
[2017-10-01] MEDS: Albuterol Nebulizer 2.5mg/3mL HHN SCH ×4 (07:02→18:41)
[2017-10-01] MEDS: Ipratropium Neb 0.5 mg/2.5 mL UD IH SCH ×4 (07:02→18:41)
[2017-10-01] MEDS: POLYETHYLENE GLYCOL 3350 17 GM PACK PO SCH ×2 (09:00→16:55)
[2017-10-01] MEDS: Lactobacillus Rhamnosus GG 15 Billion CFU CAP.SPRINK PO SCH (09:40)
[2017-10-01] MEDS: Enoxaparin 40 mg/0.4 mL 0.4mL Syr SUBQ SCH (09:41)
[2017-10-01] MEDS ORDERED: Sodium Phosphate 20 MMOLE in Sodium Chloride 0.9% 250 ML IV ONE ×2 (10:00→12:31)
[2017-10-01] MEDS: ONFI 20MG PO SCH ×2 (10:08→16:54)
--- NOTE | 2017-10-01 10:25 | Internal Medicine Prog Note ---
Internal Medicine Subjective - Subjective Service Date: 10/01/17 (remains on ppn ) Patient seen and examined:: with staff Patient is:: awake Per staff patient has:: tolerating meds Internal Medicine Objective - Results Result Diagrams: 10/01/17 04:44 10/01/17 04:44 Recent Labs: Laboratory Last Values WBC 22.6 Th/cmm (4.8-10.8) H* 10/01/17 04:44 RBC 4.12 Mil/cmm (4.30-5.70) L 10/01/17 04:44 Hgb 13.6 gm/dL (12-16) 10/01/17 04:44 Hct 40.3 % (41.0-60) L 10/01/17 04:44 MCV 98.0 fl (80-99) 10/01/17 04:44 MCH 33.1 pg (26.0-30.0) H 10/01/17 04:44 MCHC Differential 33.7 pg (28.0-36.0) 10/01/17 04:44 RDW 13.6 % (11.5-20.0) 10/01/17 04:44 Plt Count 309 Th/cmm (150-400) 10/01/17 04:44 MPV 7.6 fl 10/01/17 04:44 Neutrophils % ROOM DESIGNER 10/01/17 04:44 Band Neutrophils % 6 % (0-10) 10/01/17 04:44 Lymphocytes % ROOM DESIGNER 10/01/17 04:44 Monocytes % 14.9 % (2.0-10.0) H 09/29/17 04:55 Eosinophils % 8.3 % (0.0-5.0) H 09/29/17 04:55 Basophils % 0.7 % (0.0-2.0) 09/29/17 04:55 Neutrophils (Manual) 71 % (40-80) 10/01/17 04:44 Lymphocytes 13 % (20-50) L 10/01/17 04:44 Monocytes 9 % (2-10) 10/01/17 04:44 Eosinophils 1 % (0-5) 10/01/17 04:44 Platelet Estimate ADEQUATE (NORMAL) 09/30/17 04:15 PT 10.6 SECONDS (9.5-11.5) 09/28/17 05:20 INR 1.02 (0.5-1.4) 09/28/17 05:20 Specimen Source Arterial 09/30/17 11:15 Sample Site Right Radial 09/30/17 11:15 pH 7.41 (7.35-7.45) 09/30/17 11:15 pCO2 43.0 mmHg (35.0-45.0) 09/30/17 11:15 pO2 118.0 mmHg (80.0-100.0) H 09/30/17 11:15 HCO3 26.8 mEq/L (20.0-26.0) H 09/30/17 11:15 Base Excess 2.3 mEq/L (-3.0-3.0) 09/30/17 11:15 O2 Saturation 99.0 % (92.0-100.0) 09/30/17 11:15 Cam Test Positive 09/30/17 11:15 Vent Rate N/A 09/30/17 11:15 Inspired O2 40 09/30/17 11:15 Tidal Volume N/A 09/30/17 11:15 PEEP N/A 09/30/17 11:15 Pressure (ins/psv/peep) N/A 09/30/17 11:15 Critical Value DM 09/30/17 11:15 Sodium 130 mEq/L (136-145) L 10/01/17 04:44 Potassium 4.7 mEq/L (3.5-5.1) 10/01/17 04:44 Chloride 100 mEq/L (98-107) 10/01/17 04:44 Carbon Dioxide 25.5 mEq/L (21.0-31.0) 10/01/17 04:44 Anion Gap 9.2 (7.0-16.0) 10/01/17 04:44 BUN 11 mg/dL (7-25) 10/01/17 04:44 Creatinine 0.4 mg/dL (0.7-1.3) L 10/01/17 04:44 Est GFR ( Amer) > 60.0 ml/min (>90) 10/01/17 04:44 Est GFR (Non-Af Amer) > 60.0 ml/min 10/01/17 04:44 BUN/Creatinine Ratio 27.5 10/01/17 04:44 Glucose 141 mg/dL (70-105) H 10/01/17 04:44 POC Glucose 123 MG/DL (70 - 105) H 10/01/17 05:58 Calcium 8.8 mg/dL (8.6-10.3) 10/01/17 04:44 Phosphorus 2.4 mg/dL (2.5-5.0) L 10/01/17 04:44 Magnesium 2.0 mg/dL (1.9-2.7) 10/01/17 04:44 Total Bilirubin 0.4 mg/dL (0.3-1.0) 09/29/17 04:15 Direct Bilirubin 0.12 mg/dL (0.0-0.2) 09/29/17 04:15 AST 16 U/L (13-39) 09/29/17 04:15 ALT 11 U/L (7-52) 09/29/17 04:15 Alkaline Phosphatase 80 U/L (34-104) 09/29/17 04:15 Total Protein 6.9 gm/dL (6.0-8.3) 09/29/17 04:15 Albumin 3.1 gm/dL (4.2-5.5) L 09/30/17 04:15 Globulin 3.0 gm/dL 09/29/17 04:15 Albumin/Globulin Ratio 1.3 (1.0-1.8) 09/29/17 04:15 Prealbumin 13 mg/dL (10-36) 09/30/17 05:20 Triglycerides 43 mg/dL (<150) 09/30/17 04:15 Cholesterol 85 mg/dL (<200) 09/30/17 04:15 Lipase 17 U/L (11-82) 09/23/17 20:53 TSH 1.32 uIU/ml (0.34-5.60) 09/24/17 07:50 Urine Source [place] 09/23/17 20:33 Urine Color YELLOW 09/23/17 20:33 Urine Clarity CLOUDY (CLEAR) 09/23/17 20:33 Urine pH 6.5 (4.6 - 8.0) 09/23/17 20:33 Ur Specific [place] 1.020 (1.005-1.030) 09/23/17 20:33 Urine Protein 30 mg/dL (NEGATIVE) H 09/23/17 20:33 Urine Glucose (UA) NEGATIVE mg/dL (NEGATIVE) 09/23/17 20:33 Urine Ketones NEGATIVE mg/dL (NEGATIVE) 09/23/17 20:33 Urine Blood SMALL (NEGATIVE) H 09/23/17 20:33 Urine Nitrate POSITIVE (NEGATIVE) H 09/23/17 20:33 Urine Bilirubin NEGATIVE (NEGATIVE) 09/23/17 20:33 Urine Urobilinogen 0.2 E.U./dL (0.2 - 1.0) 09/23/17 20:33 Ur Leukocyte Esterase LARGE (NEGATIVE) H 09/23/17 20:33 Urine RBC 5-10 /hpf (0-5) H 09/23/17 20:33 Urine WBC 50-100 /hpf (0-5) H 09/23/17 20:33 Ur Epithelial Cells RARE /lpf (FEW) 09/23/17 20:33 Urine Bacteria MANY /hpf (NONE SEEN) H 09/23/17 20:33 Rheumatoid Factor 31.5 IU/mL (0.0-13.9) H 09/24/17 07:50 Blood Type A POSITIVE 09/28/17 05:30 Antibody Screen NEGATIVE 09/28/17 05:30 - Physical Exam Vitals and I&O: Vital Signs Temp 98.1 F 10/01/17 04:00 Pulse 89 10/01/17 07:02 Resp 20 10/01/17 07:02 BP 113/68 10/01/17 06:00 Pulse Ox 99 10/01/17 07:02 Intake & Output 09/30/17 10/01/17 10/01/17 18:59 06:59 18:59 Intake Total 3761.667 1673.333 Output Total 780 950 Balance 2981.667 723.333 Weight (lbs) 180 lb 180 lb Intake: Intake, IV Amount 2561.667 1673.333 Cefepime 1 gm In Dextrose 50 50 5% 50 ml @ 100 mls/hr IV Q12H [facility] Rx#:[id number] Levetiracetam 500 mg In 105 105 Sodium Chloride 0.9% 100 ml @ 400 mls/hr IV Q12HR@ 1000,2200 [facility] Rx#: [id number] Multivitamin Inj 5 ml In 2306.667 1318.333 Dextrose 70% 1,200 ml In Amino Acids 8.5% 1,200 ml In Intralipids 20% 200 ml @ 100 mls/hr IV .Q24H [facility] Rx#:[id number] Sodium Chloride 0.9% 250 0 ml @ 10 mls/hr IV Q24H [facility] Rx#:[id number] metroNIDAZOLE 500mg/NS 100 200 100mL 500 mg In Premix Fluid 1 bag @ 100 mls/hr IV Q8H [facility] Rx#:[id number] Oral 0 TPN/PPN 1200 Output: Drainage 80 100 Ileostomy 10 50 Left Lower Abdomen 70 50 Urine 700 850 Other: Weight Source Bedscale Bedscale Active Medications: Current Medications Acetaminophen (Tylenol) 650 mg PO Q4H PRN PRN Reason: Pain Or Fever above 101 Stop: 11/22/17 22:23 Albuterol Sulfate (Albuterol 2.5mg/3ml Neb Ud) 2.5 mg HHN QIDRT [facility] Stop: 11/23/17 06:59 Last Admin: 10/01/17 07:02 Dose: 2.5 mg Bisacodyl (Dulcolax 10 Mg Supp) 10 mg RC DAILY PRN PRN Reason: Constipation Stop: 11/22/17 22:21 Last Admin: 09/28/17 00:44 Dose: 10 mg Enoxaparin Sodium (Lovenox) 40 mg SUBQ DAILY [facility] Stop: 11/29/17 08:59 Last Admin: 10/01/17 09:41 Dose: 40 mg Levetiracetam 500 mg/ Sodium (Chloride) 105 mls @ 400 mls/hr IV Q12HR@1000, 2200 [facility] Stop: 11/23/17 12:14 Last Admin: 10/01/17 09:50 Dose: 400 mls/hr Multivitamins/Minerals 5 ml/Dextrose/ Amino Acids/Electrolytes/ Fat Emulsion Intravenous 2,605 mls @ 100 mls/hr IV .Q24H [facility] Stop: 11/25/17 14:59 Last Infusion: 10/01/17 06:00 Dose: 100 mls/hr Sodium Chloride (Nacl 0.9%) 250 mls @ 10 mls/hr IV Q24H [facility] Stop: 11/25/17 14:59 Last Admin: 09/30/17 18:09 Dose: 10 mls/hr Metronidazole 500 mg/ (Miscellaneous) 100 mls @ 100 mls/hr IV Q8H [facility] Stop: 11/28/17 10:59 Last Admin: 10/01/17 10:09 Dose: 100 mls/hr Sodium Phosphate 20 mmole/ (Sodium Chloride) 256.6667 mls @ 42 mls/hr IV ONCE ONE Stop: 10/01/17 16:06 Insulin Aspart (Novolog Insulin Sliding Scale) 0 units SUBQ Q6HR [facility] PRN Reason: Protocol Stop: 11/29/17 17:59 Last Admin: 10/01/17 06:00 Dose: Not Given Ipratropium [place] (Atrovent Neb 0.5mg/2.5ml) 0.5 mg IH QIDRT [facility] Stop: 11/23/17 06:59 Last Admin: 10/01/17 07:02 Dose: 0.5 mg Lactobacillus Rhamnosus (Culturelle 15b) 1 each PO DAILY [facility] Stop: 11/25/17 08:59 Last Admin: 10/01/17 09:40 Dose: 1 each Levothyroxine Sodium 0.1 mg/ (Levothyroxine Sodium 0.025 mg) 0.125 mg PO QDAC [facility] Stop: 11/23/17 07:59 Last Admin: 10/01/17 06:42 Dose: Not Given Methotrexate (Methotrexate) 2.5 mg PO QWEEK 0730 [facility] PRN Reason: Protocol Stop: 11/23/17 07:59 Last Admin: 10/01/17 09:43 Dose: 2.5 mg Mineral Oil (Mineral Oil 30 Ml) 30 ml PO BID [facility] Stop: 11/23/17 08:59 Last Admin: 09/30/17 16:50 Dose: Not Given Miscellaneous (Probiotic Screen) 1 ea PRN PRN PRN Reason: PROTOCOL Stop: 11/24/17 12:14 Miscellaneous (Tpn Per Pharmacy) 1 ea PRN PRN PRN Reason: PROTOCOL Stop: 11/28/17 12:05 Morphine Sulfate (Morphine) 2 mg IV Q4H PRN PRN Reason: Abdominal Pain Stop: 11/29/17 17:58 Last Admin: 10/01/17 03:43 Dose: 2 mg Pantoprazole Sodium (Protonix) 40 mg IVP DAILY [facility] Stop: 11/28/17 11:59 Last Admin: 10/01/17 09:40 Dose: 40 mg Onfi 20mg 1 PO BID CHANDAN Stop: 11/25/17 16:59 Last Admin: 10/01/17 10:08 Dose: Not Given Polyethylene Glycol (Miralax) 17 gm PO BID CHANDAN Stop: 11/23/17 08:59 Last Admin: 09/30/17 16:51 Dose: Not Given Simethicone (Mylicon) 80 mg PO QID PRN PRN Reason: Gas Stop: 11/24/17 12:58 Last Admin: 09/27/17 21:08 Dose: 80 mg Tamsulosin HCl (Flomax) 0.4 mg PO HS CHANDAN Stop: 11/23/17 20:59 Last Admin: 09/30/17 21:29 Dose: Not Given General: weak HEENT: NC/AT, PERRLA Lungs: CTAB Cardiovascular: RRR, Normal S1, Normal S2, without murmur Abdomen: distended Neurological: bedbound - Procedures Procedures: Procedures Procedure Code Date BYPASS ILEUM TO CUTANEOUS, OPEN APPROACH [id number] 09/23/17 BYPASS STOMACH TO CUTANEOUS, OPEN APPROACH [id number] 09/23/17 ILEOSTOMY/JEJUNOSTOMY 49215 09/23/17 PARTIAL REMOVAL OF COLON 19193 09/23/[address] PL[address] GASTROSTOMY TUBE 90469 09/23/17 RESECTION OF LARGE INTESTINE, OPEN APPROACH [id number] 09/23/17 RESPIRATORY VENTILATION, LESS THAN 24 CONSECUTIVE HOURS [id number] 09/23/17 Internal Medicine Assmt/Plan - Assessment Assessment: abdominal pain abdominal distention toxic bjorn colon acute uti hyponatremia acute dehydration MR cp leukocytosis seizure protein calorie malnutrition generalized weakness - Plan Plan: will follow analysis consultant recommendations continue with ppn for nutritional support cbc/bmp in am continue current orders Nutritional Asmnt/Malnutr-PDOC - Dietary Evaluation Malnutrition Findings (Please click <Entered> for more info): Nutritional Asmnt/Malnutrition Start: 09/27/17 11: 26 Text: Status: Complete Freq: Document 09/27/17 11:26 MG (Rec: 09/27/17 11:34 MG [id number]) Nutritional Asmnt/Malnutrition Patient General Information Diagnosis abdominal pain, increased abdominal distention Pertinent Medical Hx/Surgical Hx MR, CP, developmental delay, sezure, generalized contractures, bedridden, Hx of megacolon Subjective Information Pt asleep in bed at time of visit Current Diet Order/ Nutrition Support PPN Pertinent Medications culturelle, mineral oil, miralax, mylicon Pertinent Labs 09/27: Na 134, K 4.0, Cl 100, CO2 28.5, BUN 8, Cr 0.5, Ca 9. 7, glucose 102, Mg 1.7, phos 2 .4 Nutritional Hx/Data Height 5 ft 10 in Height (Calculated Centimeters) 177.8 Current Weight (lbs) 181 lb Weight (Calculated Kilograms) 82.1 Weight (Calculated Grams) 59610.2 Body Mass Index (BMI) 25.9 Weight Status Overweight GI Symptoms GI Symptoms None Last BM 09/27 Cultural/Ethnic/Jain Belief None noted Usual diet at home TF Skin Integrity/Comment: kenny score 13 Estimated Nutritional Goals BEE in Kcals: Using Current wt Calories/Kcals/Kg 30kcals/kg Kcals Calculated 2460kcals/day Protein: Using Current wt Protein g/k.2+g/day Protein Calculated 98g+/day Fluid: ml per MD Nutritional Problem 1. Problem Problem Altered GI function related to Etiology GI function as evidenced by Signs/Symptoms: Abdominal distention, abdominal pain. Intervention/Recommendation Comments Recommend initiating PN via central line to adequately meet estimated needs Expected Outcomes/Goals Expected Outcomes/Goals Nutrition needs met
--- NOTE | 2017-10-01 12:07 | GI Progress Note ---
Subjective - Review of Systems Service Date: 10/01/17 Subjective: Extubated, no new events Objective - Results Result Diagrams: 10/01/17 04:44 10/01/17 04:44 Recent Labs: Laboratory Last Values WBC 22.6 Th/cmm (4.8-10.8) H* 10/01/17 04:44 RBC 4.12 Mil/cmm (4.30-5.70) L 10/01/17 04:44 Hgb 13.6 gm/dL (12-16) 10/01/17 04:44 Hct 40.3 % (41.0-60) L 10/01/17 04:44 MCV 98.0 fl (80-99) 10/01/17 04:44 MCH 33.1 pg (26.0-30.0) H 10/01/17 04:44 MCHC Differential 33.7 pg (28.0-36.0) 10/01/17 04:44 RDW 13.6 % (11.5-20.0) 10/01/17 04:44 Plt Count 309 Th/cmm (150-400) 10/01/17 04:44 MPV 7.6 fl 10/01/17 04:44 Neutrophils % RESTAURANT HOSTESS 10/01/17 04:44 Band Neutrophils % 6 % (0-10) 10/01/17 04:44 Lymphocytes % RESTAURANT HOSTESS 10/01/17 04:44 Monocytes % 14.9 % (2.0-10.0) H 09/29/17 04:55 Eosinophils % 8.3 % (0.0-5.0) H 09/29/17 04:55 Basophils % 0.7 % (0.0-2.0) 09/29/17 04:55 Neutrophils (Manual) 71 % (40-80) 10/01/17 04:44 Lymphocytes 13 % (20-50) L 10/01/17 04:44 Monocytes 9 % (2-10) 10/01/17 04:44 Eosinophils 1 % (0-5) 10/01/17 04:44 Platelet Estimate ADEQUATE (NORMAL) 09/30/17 04:15 PT 10.6 SECONDS (9.5-11.5) 09/28/17 05:20 INR 1.02 (0.5-1.4) 09/28/17 05:20 Specimen Source Arterial 09/30/17 11:15 Sample Site Right Radial 09/30/17 11:15 pH 7.41 (7.35-7.45) 09/30/17 11:15 pCO2 43.0 mmHg (35.0-45.0) 09/30/17 11:15 pO2 118.0 mmHg (80.0-100.0) H 09/30/17 11:15 HCO3 26.8 mEq/L (20.0-26.0) H 09/30/17 11:15 Base Excess 2.3 mEq/L (-3.0-3.0) 09/30/17 11:15 O2 Saturation 99.0 % (92.0-100.0) 09/30/17 11:15 Cam Test Positive 09/30/17 11:15 Vent Rate N/A 09/30/17 11:15 Inspired O2 40 09/30/17 11:15 Tidal Volume N/A 09/30/17 11:15 PEEP N/A 09/30/17 11:15 Pressure (ins/psv/peep) N/A 09/30/17 11:15 Critical Value DM 09/30/17 11:15 Sodium 130 mEq/L (136-145) L 10/01/17 04:44 Potassium 4.7 mEq/L (3.5-5.1) 10/01/17 04:44 Chloride 100 mEq/L (98-107) 10/01/17 04:44 Carbon Dioxide 25.5 mEq/L (21.0-31.0) 10/01/17 04:44 Anion Gap 9.2 (7.0-16.0) 10/01/17 04:44 BUN 11 mg/dL (7-25) 10/01/17 04:44 Creatinine 0.4 mg/dL (0.7-1.3) L 10/01/17 04:44 Est GFR ( Amer) > 60.0 ml/min (>90) 10/01/17 04:44 Est GFR (Non-Af Amer) > 60.0 ml/min 10/01/17 04:44 BUN/Creatinine Ratio 27.5 10/01/17 04:44 Glucose 141 mg/dL (70-105) H 10/01/17 04:44 POC Glucose 123 MG/DL (70 - 105) H 10/01/17 05:58 Calcium 8.8 mg/dL (8.6-10.3) 10/01/17 04:44 Phosphorus 2.4 mg/dL (2.5-5.0) L 10/01/17 04:44 Magnesium 2.0 mg/dL (1.9-2.7) 10/01/17 04:44 Total Bilirubin 0.4 mg/dL (0.3-1.0) 09/29/17 04:15 Direct Bilirubin 0.12 mg/dL (0.0-0.2) 09/29/17 04:15 AST 16 U/L (13-39) 09/29/17 04:15 ALT 11 U/L (7-52) 09/29/17 04:15 Alkaline Phosphatase 80 U/L (34-104) 09/29/17 04:15 Total Protein 6.9 gm/dL (6.0-8.3) 09/29/17 04:15 Albumin 3.1 gm/dL (4.2-5.5) L 09/30/17 04:15 Globulin 3.0 gm/dL 09/29/17 04:15 Albumin/Globulin Ratio 1.3 (1.0-1.8) 09/29/17 04:15 Prealbumin 13 mg/dL (10-36) 09/30/17 05:20 Triglycerides 43 mg/dL (<150) 09/30/17 04:15 Cholesterol 85 mg/dL (<200) 09/30/17 04:15 Lipase 17 U/L (11-82) 09/23/17 20:53 TSH 1.32 uIU/ml (0.34-5.60) 09/24/17 07:50 Urine Source [place] 09/23/17 20:33 Urine Color YELLOW 09/23/17 20:33 Urine Clarity CLOUDY (CLEAR) 09/23/17 20:33 Urine pH 6.5 (4.6 - 8.0) 09/23/17 20:33 Ur Specific [place] 1.020 (1.005-1.030) 09/23/17 20:33 Urine Protein 30 mg/dL (NEGATIVE) H 09/23/17 20:33 Urine Glucose (UA) NEGATIVE mg/dL (NEGATIVE) 09/23/17 20:33 Urine Ketones NEGATIVE mg/dL (NEGATIVE) 09/23/17 20:33 Urine Blood SMALL (NEGATIVE) H 09/23/17 20:33 Urine Nitrate POSITIVE (NEGATIVE) H 09/23/17 20:33 Urine Bilirubin NEGATIVE (NEGATIVE) 09/23/17 20:33 Urine Urobilinogen 0.2 E.U./dL (0.2 - 1.0) 09/23/17 20:33 Ur Leukocyte Esterase LARGE (NEGATIVE) H 09/23/17 20:33 Urine RBC 5-10 /hpf (0-5) H 09/23/17 20:33 Urine WBC 50-100 /hpf (0-5) H 09/23/17 20:33 Ur Epithelial Cells RARE /lpf (FEW) 09/23/17 20:33 Urine Bacteria MANY /hpf (NONE SEEN) H 09/23/17 20:33 Rheumatoid Factor 31.5 IU/mL (0.0-13.9) H 09/24/17 07:50 Blood Type A POSITIVE 09/28/17 05:30 Antibody Screen NEGATIVE 09/28/17 05:30 - Physical Exam Vitals and I&O: Vital Signs Temp 97.6 F 10/01/17 08:00 Pulse 89 10/01/17 11:51 Resp 17 10/01/17 11:51 BP 120/67 10/01/17 11:00 Pulse Ox 99 10/01/17 11:51 Intake & Output 09/30/17 10/01/17 10/01/17 18:59 06:59 18:59 Intake Total 3761.667 1673.333 Output Total 780 950 Balance 2981.667 723.333 Weight (lbs) 81.647 kg 81.647 kg Intake: Intake, IV Amount 2561.667 1673.333 Cefepime 1 gm In Dextrose 50 50 5% 50 ml @ 100 mls/hr IV Q12H [facility] Rx#:[id number] Levetiracetam 500 mg In 105 105 Sodium Chloride 0.9% 100 ml @ 400 mls/hr IV Q12HR@ 1000,2200 [facility] Rx#: [id number] Multivitamin Inj 5 ml In 2306.667 1318.333 Dextrose 70% 1,200 ml In Amino Acids 8.5% 1,200 ml In Intralipids 20% 200 ml @ 100 mls/hr IV .Q24H [facility] Rx#:[id number] Sodium Chloride 0.9% 250 0 ml @ 10 mls/hr IV Q24H [facility] Rx#:[id number] metroNIDAZOLE 500mg/NS 100 200 100mL 500 mg In Premix Fluid 1 bag @ 100 mls/hr IV Q8H [facility] Rx#:[id number] Oral 0 TPN/PPN 1200 Output: Drainage 80 100 Ileostomy 10 50 Left Lower Abdomen 70 50 Urine 700 850 Other: Stool Characteristics Liquid Brown Weight Source Bedscale Bedscale Active Medications: Current Medications Acetaminophen (Tylenol) 650 mg PO Q4H PRN PRN Reason: Pain Or Fever above 101 Stop: 11/22/17 22:23 Albuterol Sulfate (Albuterol 2.5mg/3ml Neb Ud) 2.5 mg HHN QIDRT [facility] Stop: 11/23/17 06:59 Last Admin: 10/01/17 11:51 Dose: 2.5 mg Bisacodyl (Dulcolax 10 Mg Supp) 10 mg RC DAILY PRN PRN Reason: Constipation Stop: 11/22/17 22:21 Last Admin: 09/28/17 00:44 Dose: 10 mg Enoxaparin Sodium (Lovenox) 40 mg SUBQ DAILY [facility] Stop: 11/29/17 08:59 Last Admin: 10/01/17 09:41 Dose: 40 mg Levetiracetam 500 mg/ Sodium (Chloride) 105 mls @ 400 mls/hr IV Q12HR@1000, 2200 [facility] Stop: 11/23/17 12:14 Last Admin: 10/01/17 09:50 Dose: 400 mls/hr Multivitamins/Minerals 5 ml/Dextrose/ Amino Acids/Electrolytes/ Fat Emulsion Intravenous 2,605 mls @ 100 mls/hr IV .Q24H [facility] Stop: 11/25/17 14:59 Last Infusion: 10/01/17 06:00 Dose: 100 mls/hr Sodium Chloride (Nacl 0.9%) 250 mls @ 10 mls/hr IV Q24H [facility] Stop: 11/25/17 14:59 Last Admin: 09/30/17 18:09 Dose: 10 mls/hr Metronidazole 500 mg/ (Miscellaneous) 100 mls @ 100 mls/hr IV Q8H [facility] Stop: 11/28/17 10:59 Last Admin: 10/01/17 10:09 Dose: 100 mls/hr Sodium Phosphate 20 mmole/ (Sodium Chloride) 256.6667 mls @ 42 mls/hr IV ONCE ONE Stop: 10/01/17 16:06 Insulin Aspart (Novolog Insulin Sliding Scale) 0 units SUBQ Q6HR [facility] PRN Reason: Protocol Stop: 11/29/17 17:59 Last Admin: 10/01/17 06:00 Dose: Not Given Ipratropium [place] (Atrovent Neb 0.5mg/2.5ml) 0.5 mg IH QIDRT [facility] Stop: 11/23/17 06:59 Last Admin: 10/01/17 11:51 Dose: 0.5 mg Lactobacillus Rhamnosus (Culturelle 15b) 1 each PO DAILY [facility] Stop: 11/25/17 08:59 Last Admin: 10/01/17 09:40 Dose: 1 each Levothyroxine Sodium 0.1 mg/ (Levothyroxine Sodium 0.025 mg) 0.125 mg PO QDAC [facility] Stop: 11/23/17 07:59 Last Admin: 10/01/17 06:42 Dose: Not Given Methotrexate (Methotrexate) 2.5 mg PO QWEEK 0730 [facility] PRN Reason: Protocol Stop: 11/23/17 07:59 Last Admin: 10/01/17 09:43 Dose: 2.5 mg Mineral Oil (Mineral Oil 30 Ml) 30 ml PO BID [facility] Stop: 11/23/17 08:59 Last Admin: 09/30/17 16:50 Dose: Not Given Miscellaneous (Probiotic Screen) 1 ea PRN PRN PRN Reason: PROTOCOL Stop: 11/24/17 12:14 Miscellaneous (Tpn Per Pharmacy) 1 ea PRN PRN PRN Reason: PROTOCOL Stop: 11/28/17 12:05 Morphine Sulfate (Morphine) 2 mg IV Q4H PRN PRN Reason: Abdominal Pain Stop: 11/29/17 17:58 Last Admin: 10/01/17 03:43 Dose: 2 mg Pantoprazole Sodium (Protonix) 40 mg IVP DAILY [facility] Stop: 11/28/17 11:59 Last Admin: 10/01/17 09:40 Dose: 40 mg Onfi 20mg 1 PO BID [facility] Stop: 11/25/17 16:59 Last Admin: 10/01/17 10:08 Dose: Not Given Polyethylene Glycol (Miralax) 17 gm PO BID [facility] Stop: 11/23/17 08:59 Last Admin: 09/30/17 16:51 Dose: Not Given Simethicone (Mylicon) 80 mg PO QID PRN PRN Reason: Gas Stop: 11/24/17 12:58 Last Admin: 09/27/17 21:08 Dose: 80 mg Tamsulosin HCl (Flomax) 0.4 mg PO HS [facility] Stop: 11/23/17 20:59 Last Admin: 09/30/17 21:29 Dose: Not Given General: No acute distress HEENT: Atraumatic Neck: Supple Cardiovascular: Regular rate Abdomen: Soft, Distended, Other (JULIUS drain in place, bandage intact. ileostomy with green output), no Tender, no Mass, no Guarding - Procedures Procedures: Procedures Procedure Code Date BYPASS ILEUM TO CUTANEOUS, OPEN APPROACH [id number] 09/23/17 BYPASS STOMACH TO CUTANEOUS, OPEN APPROACH [id number] 09/23/17 ILEOSTOMY/JEJUNOSTOMY 05524 09/23/17 PARTIAL REMOVAL OF COLON 55685 09/23/[address] PL[address] GASTROSTOMY TUBE 19938 09/23/17 RESECTION OF LARGE INTESTINE, OPEN APPROACH [id number] 09/23/17 RESPIRATORY VENTILATION, LESS THAN 24 CONSECUTIVE HOURS [id number] 09/23/17 Assessment/Plan - Assessment Assessment: # Fecal impaction # Sigmoid colon dilation to 18cm # Cerebral Palsey and mental retardation Pt had been admitted several times in the recent past for fecal impactions, and has responded in the past to laxatives (from above and below). The pt has had a colonoscopy in 2017 as per report, and noted only stool in the colon, no obstructing mass. Sigmoid colon currently 18cm as of 09/24, massively dilated, and there is a distal impaction. As pt did not satisfactorly improve with conservative treatment, he was taken for subtotal colectomy with ileostomy placement on 09/[address] Butler. A g tube was also placed at gabriel time Plan: - post op care as per Dr Butler - eventually can start feeds via G tube once Dr Butler agrees - pulmonary care as per spinner fixer, now extubated
--- NOTE | 2017-10-01 12:35 | Pathology Report ---
[id number] Collection date: 09/29/2017 Surgeon: Dr. Jaymei Butler Specimen Description: Subtotal colon resection Gross Description: Received in formalin is a subtotal colectomy specimen measuring 90 cm in length x up to 15 cm in outer diameter. The proximal end of the specimen consists of a 4 cm segment of terminal ileum and ileocecal valve. The entire colon is dilated with transverse colon showing the most dilated area , with marked thinning of the mucosa and twisting of the muscular wall of the colon. The appendix was identified measuring 6 cm in length x 0.4 cm in diameter. Fibrous adhesions are noted on the outer surface of the specimen. Personal Banker sections are submitted in seven cassettes labeled A1 to A7. Cassette A1 shows the ileum and appendix, cassette A2 to A4 shows dilated and thinned colon, cassette A5 shows distal sigmoid colon, cassette A6 to A7 shows fibrous adhesions. Microscopic Description: The histologic sections show a subtotal colon resection with marked thinning and stretching of the mucosa and muscular wall. The mucosa is flattened and shows areas of mild chronic inflammation with multiple fibrous adhesions seen on the outer serosal surface. Diagnosis: 1. 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 2. Areas of fibrous adhesions are seen on the outer surface of the specimen. [facility]# [id number] [place]
[2017-10-01] MEDS: TPN 8.5%-70% CUSTOM IV SCH (15:46)
--- NOTE | 2017-10-01 17:06 | General Progress Note ---
Subjective - Review of Systems Service Date: 10/01/17 Events since last encounter: leukocytosis noted has high residual in GT added Flagyl Objective - Results Result Diagrams: 10/01/17 04:44 10/01/17 04:44 Recent Labs: Laboratory Last Values WBC 22.6 Th/cmm (4.8-10.8) H* 10/01/17 04:44 RBC 4.12 Mil/cmm (4.30-5.70) L 10/01/17 04:44 Hgb 13.6 gm/dL (12-16) 10/01/17 04:44 Hct 40.3 % (41.0-60) L 10/01/17 04:44 MCV 98.0 fl (80-99) 10/01/17 04:44 MCH 33.1 pg (26.0-30.0) H 10/01/17 04:44 MCHC Differential 33.7 pg (28.0-36.0) 10/01/17 04:44 RDW 13.6 % (11.5-20.0) 10/01/17 04:44 Plt Count 309 Th/cmm (150-400) 10/01/17 04:44 MPV 7.6 fl 10/01/17 04:44 Neutrophils % FRUIT LOADER MACHINE OPERATOR 10/01/17 04:44 Band Neutrophils % 6 % (0-10) 10/01/17 04:44 Lymphocytes % FRUIT LOADER MACHINE OPERATOR 10/01/17 04:44 Monocytes % 14.9 % (2.0-10.0) H 09/29/17 04:55 Eosinophils % 8.3 % (0.0-5.0) H 09/29/17 04:55 Basophils % 0.7 % (0.0-2.0) 09/29/17 04:55 Neutrophils (Manual) 71 % (40-80) 10/01/17 04:44 Lymphocytes 13 % (20-50) L 10/01/17 04:44 Monocytes 9 % (2-10) 10/01/17 04:44 Eosinophils 1 % (0-5) 10/01/17 04:44 Platelet Estimate ADEQUATE (NORMAL) 09/30/17 04:15 PT 10.6 SECONDS (9.5-11.5) 09/28/17 05:20 INR 1.02 (0.5-1.4) 09/28/17 05:20 Specimen Source Arterial 09/30/17 11:15 Sample Site Right Radial 09/30/17 11:15 pH 7.41 (7.35-7.45) 09/30/17 11:15 pCO2 43.0 mmHg (35.0-45.0) 09/30/17 11:15 pO2 118.0 mmHg (80.0-100.0) H 09/30/17 11:15 HCO3 26.8 mEq/L (20.0-26.0) H 09/30/17 11:15 Base Excess 2.3 mEq/L (-3.0-3.0) 09/30/17 11:15 O2 Saturation 99.0 % (92.0-100.0) 09/30/17 11:15 Cam Test Positive 09/30/17 11:15 Vent Rate N/A 09/30/17 11:15 Inspired O2 40 09/30/17 11:15 Tidal Volume N/A 09/30/17 11:15 PEEP N/A 09/30/17 11:15 Pressure (ins/psv/peep) N/A 09/30/17 11:15 Critical Value DM 09/30/17 11:15 Sodium 130 mEq/L (136-145) L 10/01/17 04:44 Potassium 4.7 mEq/L (3.5-5.1) 10/01/17 04:44 Chloride 100 mEq/L (98-107) 10/01/17 04:44 Carbon Dioxide 25.5 mEq/L (21.0-31.0) 10/01/17 04:44 Anion Gap 9.2 (7.0-16.0) 10/01/17 04:44 BUN 11 mg/dL (7-25) 10/01/17 04:44 Creatinine 0.4 mg/dL (0.7-1.3) L 10/01/17 04:44 Est GFR ( Amer) > 60.0 ml/min (>90) 10/01/17 04:44 Est GFR (Non-Af Amer) > 60.0 ml/min 10/01/17 04:44 BUN/Creatinine Ratio 27.5 10/01/17 04:44 Glucose 141 mg/dL (70-105) H 10/01/17 04:44 POC Glucose 108 MG/DL (70 - 105) H 10/01/17 12:15 Calcium 8.8 mg/dL (8.6-10.3) 10/01/17 04:44 Phosphorus 2.4 mg/dL (2.5-5.0) L 10/01/17 04:44 Magnesium 2.0 mg/dL (1.9-2.7) 10/01/17 04:44 Total Bilirubin 0.4 mg/dL (0.3-1.0) 09/29/17 04:15 Direct Bilirubin 0.12 mg/dL (0.0-0.2) 09/29/17 04:15 AST 16 U/L (13-39) 09/29/17 04:15 ALT 11 U/L (7-52) 09/29/17 04:15 Alkaline Phosphatase 80 U/L (34-104) 09/29/17 04:15 Total Protein 6.9 gm/dL (6.0-8.3) 09/29/17 04:15 Albumin 3.1 gm/dL (4.2-5.5) L 09/30/17 04:15 Globulin 3.0 gm/dL 09/29/17 04:15 Albumin/Globulin Ratio 1.3 (1.0-1.8) 09/29/17 04:15 Prealbumin 13 mg/dL (10-36) 09/30/17 05:20 Triglycerides 43 mg/dL (<150) 09/30/17 04:15 Cholesterol 85 mg/dL (<200) 09/30/17 04:15 Lipase 17 U/L (11-82) 09/23/17 20:53 TSH 1.32 uIU/ml (0.34-5.60) 09/24/17 07:50 Urine Source [place] 09/23/17 20:33 Urine Color YELLOW 09/23/17 20:33 Urine Clarity CLOUDY (CLEAR) 09/23/17 20:33 Urine pH 6.5 (4.6 - 8.0) 09/23/17 20:33 Ur Specific [place] 1.020 (1.005-1.030) 09/23/17 20:33 Urine Protein 30 mg/dL (NEGATIVE) H 09/23/17 20:33 Urine Glucose (UA) NEGATIVE mg/dL (NEGATIVE) 03/20/18 20:33 Urine Ketones NEGATIVE mg/dL (NEGATIVE) 09/23/17 20:33 Urine Blood SMALL (NEGATIVE) H 09/23/17 20:33 Urine Nitrate POSITIVE (NEGATIVE) H 09/23/17 20:33 Urine Bilirubin NEGATIVE (NEGATIVE) 09/23/17 20:33 Urine Urobilinogen 0.2 E.U./dL (0.2 - 1.0) 09/23/17 20:33 Ur Leukocyte Esterase LARGE (NEGATIVE) H 09/23/17 20:33 Urine RBC 5-10 /hpf (0-5) H 09/23/17 20:33 Urine WBC 50-100 /hpf (0-5) H 09/23/17 20:33 Ur Epithelial Cells RARE /lpf (FEW) 09/23/17 20:33 Urine Bacteria MANY /hpf (NONE SEEN) H 09/23/17 20:33 Rheumatoid Factor 31.5 IU/mL (0.0-13.9) H 09/24/17 07:50 Blood Type A POSITIVE 09/28/17 05:30 Antibody Screen NEGATIVE 09/28/17 05:30 - Physical Exam Vitals and I&O: Vital Signs Temp 97.0 F 10/01/17 15:56 Pulse 58 10/01/17 15:56 Resp 18 10/01/17 15:56 BP 108/81 10/01/17 15:56 Pulse Ox 97 10/01/17 15:56 Intake & Output 09/30/17 10/01/17 10/01/17 18:59 06:59 18:59 Intake Total 3761.667 2597.123 9591.667 Output Total 780 950 Balance 2981.667 369.857 4870.667 Weight (lbs) 81.647 kg 81.647 kg Intake: Intake, IV Amount 2561.667 3318.544 7728.667 Cefepime 1 gm In Dextrose 50 50 5% 50 ml @ 100 mls/hr IV Q12H [facility] Rx#:[id number] Levetiracetam 500 mg In 105 105 105 Sodium Chloride 0.9% 100 ml @ 400 mls/hr IV Q12HR@ 1000,2200 [facility] Rx#: [id number] Multivitamin Inj 5 ml In 2306.667 1318.333 976.667 Dextrose 70% 1,200 ml In Amino Acids 8.5% 1,200 ml In Intralipids 20% 200 ml @ 100 mls/hr IV .Q24H [facility] Rx#:[id number] Piperacillin Sodium/ 100 Tazobact 4.5 gm In Sodium Chloride 0.9% 100 ml @ 100 mls/hr IV Q8HR [facility] Rx #:[id number] Sodium Chloride 0.9% 250 0 ml @ 10 mls/hr IV Q24H [facility] Rx#:[id number] metroNIDAZOLE 500mg/NS 100 200 100 100mL 500 mg In Premix Fluid 1 bag @ 100 mls/hr IV Q8H [facility] Rx#:[id number] Oral 0 TPN/PPN 1200 Output: Drainage 80 100 Ileostomy 10 50 Left Lower Abdomen 70 50 Urine 700 850 Other: Stool Characteristics Liquid Brown Weight Source Bedscale Bedscale Active Medications: Current Medications Acetaminophen (Tylenol) 650 mg PO Q4H PRN PRN Reason: Pain Or Fever above 101 Stop: 11/22/17 22:23 Albuterol Sulfate (Albuterol 2.5mg/3ml Neb Ud) 2.5 mg HHN QIDRT [facility] Stop: 11/23/17 06:59 Last Admin: 10/01/17 15:38 Dose: 2.5 mg Bisacodyl (Dulcolax 10 Mg Supp) 10 mg RC DAILY PRN PRN Reason: Constipation Stop: 11/22/17 22:21 Last Admin: 09/28/17 00:44 Dose: 10 mg Enoxaparin Sodium (Lovenox) 40 mg SUBQ DAILY [facility] Stop: 11/29/17 08:59 Last Admin: 10/01/17 09:41 Dose: 40 mg Levetiracetam 500 mg/ Sodium (Chloride) 105 mls @ 400 mls/hr IV Q12HR@1000, 2200 [facility] Stop: 11/23/17 12:14 Last Infusion: 10/01/17 12:32 Dose: Infused Multivitamins/Minerals 5 ml/Dextrose/ Amino Acids/Electrolytes/ Fat Emulsion Intravenous 2,605 mls @ 100 mls/hr IV .Q24H [facility] Stop: 11/25/17 14:59 Last Admin: 10/01/17 15:46 Dose: 100 mls/hr Sodium Chloride (Nacl 0.9%) 250 mls @ 10 mls/hr IV Q24H [facility] Stop: 11/25/17 14:59 Last Admin: 09/30/17 18:09 Dose: 10 mls/hr Metronidazole 500 mg/ (Miscellaneous) 100 mls @ 100 mls/hr IV Q8H [facility] Stop: 11/28/17 10:59 Last Infusion: 10/01/17 12:38 Dose: Infused Piperacillin Sod/Tazobactam (Sod 4.5 gm/ Sodium Chloride) 100 mls @ 100 mls/hr IV Q8HR [facility] Stop: 11/30/17 12:59 Last Infusion: 10/01/17 14:49 Dose: Infused Insulin Aspart (Novolog Insulin Sliding Scale) 0 units SUBQ Q6HR [facility] PRN Reason: Protocol Stop: 11/29/17 17:59 Last Admin: 10/01/17 12:36 Dose: Not Given Ipratropium [place] (Atrovent Neb 0.5mg/2.5ml) 0.5 mg IH QIDRT [facility] Stop: 11/23/17 06:59 Last Admin: 10/01/17 15:38 Dose: 0.5 mg Lactobacillus Rhamnosus (Culturelle 15b) 1 each PO DAILY [facility] Stop: 11/25/17 08:59 Last Admin: 10/01/17 09:40 Dose: 1 each Levothyroxine Sodium 0.1 mg/ (Levothyroxine Sodium 0.025 mg) 0.125 mg PO QDAC [facility] Stop: 11/23/17 07:59 Last Admin: 10/01/17 06:42 Dose: Not Given Methotrexate (Methotrexate) 2.5 mg PO QWEEK 0730 [facility] PRN Reason: Protocol Stop: 11/23/17 07:59 Last Admin: 10/01/17 09:43 Dose: 2.5 mg Mineral Oil (Mineral Oil 30 Ml) 30 ml PO BID [facility] Stop: 11/23/17 08:59 Last Admin: 10/01/17 16:55 Dose: 30 ml Miscellaneous (Probiotic Screen) 1 ea [facility] PRN PRN PRN Reason: PROTOCOL Stop: 11/24/17 12:14 Miscellaneous (Tpn Per Pharmacy) 1 ea [facility] PRN PRN PRN Reason: PROTOCOL Stop: 11/28/17 12:05 Morphine Sulfate (Morphine) 2 mg IV Q4H PRN PRN Reason: Abdominal Pain Stop: 11/29/17 17:58 Last Admin: 10/01/17 03:43 Dose: 2 mg Pantoprazole Sodium (Protonix) 40 mg IVP DAILY [facility] Stop: 11/28/17 11:59 Last Admin: 10/01/17 09:40 Dose: 40 mg Onfi 20mg 1 PO BID [facility] Stop: 11/25/17 16:59 Last Admin: 10/01/17 16:54 Dose: Not Given Polyethylene Glycol (Miralax) 17 gm PO BID [facility] Stop: 11/23/17 08:59 Last Admin: 10/01/17 16:55 Dose: 17 gm Simethicone (Mylicon) 80 mg PO QID PRN PRN Reason: Gas Stop: 11/24/17 12:58 Last Admin: 09/27/17 21:08 Dose: 80 mg Tamsulosin HCl (Flomax) 0.4 mg PO HS [facility] Stop: 11/23/17 20:59 Last Admin: 09/30/17 21:29 Dose: Not Given General: No acute distress HEENT: Atraumatic Neck: Supple Cardiovascular: Regular rate Abdomen: Soft, Distended, Other (JULIUS drain in place, bandage intact. ileostomy with green output), no Tender, no Mass, no Guarding - Procedures Procedures: Procedures Procedure Code Date BYPASS ILEUM TO CUTANEOUS, OPEN APPROACH [id number] 09/23/17 BYPASS STOMACH TO CUTANEOUS, OPEN APPROACH [id number] 09/23/17 ILEOSTOMY/JEJUNOSTOMY 57935 09/23/17 PARTIAL REMOVAL OF COLON 67770 09/23/17 PLACE GASTROSTOMY TUBE 20025 09/23/17 RESECTION OF LARGE INTESTINE, OPEN APPROACH [id number] 09/23/17 RESPIRATORY VENTILATION, LESS THAN 24 CONSECUTIVE HOURS [id number] 09/23/17 Nutritional Asmnt/Malnutr-PDOC - Dietary Evaluation Malnutrition Findings (Please click <Entered> for more info): Nutritional Asmnt/Malnutrition Start: 09/27/17 11: 26 Text: Status: Complete Freq: Document 09/27/17 11:26 MG (Rec: 09/27/17 11:34 MG WEEKS- FN) Nutritional Asmnt/Malnutrition Patient General Information Diagnosis abdominal pain, increased abdominal distention Pertinent Medical Hx/Surgical Hx MR, CP, developmental delay, sezure, generalized contractures, bedridden, Hx of megacolon Subjective Information Pt asleep in bed at time of visit Current Diet Order/ Nutrition Support PPN Pertinent Medications culturelle, mineral oil, miralax, mylicon Pertinent Labs 09/27: Na 134, K 4.0, Cl 100, CO2 28.5, BUN 8, Cr 0.5, Ca 9. 7, glucose 102, Mg 1.7, phos 2 .4 Nutritional Hx/Data Height 1.78 m Height (Calculated Centimeters) 177.8 Current Weight (lbs) 82.1 kg Weight (Calculated Kilograms) 82.1 Weight (Calculated Grams) 48168.2 Body Mass Index (BMI) 25.9 Weight Status Overweight GI Symptoms GI Symptoms None Last BM 09/27 Cultural/Ethnic/Sikhism Belief None noted Usual diet at home TF Skin Integrity/Comment: kenny score 13 Estimated Nutritional Goals BEE in Kcals: Using Current wt Calories/Kcals/Kg 30kcals/kg Kcals Calculated 2460kcals/day Protein: Using Current wt Protein g/k.2+g/day Protein Calculated 98g+/day Fluid: ml per MD Nutritional Problem 1. Problem Problem Altered GI function related to Etiology GI function as evidenced by Signs/Symptoms: Abdominal distention, abdominal pain. Intervention/Recommendation Comments Recommend initiating PN via central line to adequately meet estimated needs Expected Outcomes/Goals Expected Outcomes/Goals Nutrition needs met
[2017-10-02] MEDS: INSULIN ASPART SLIDING SCALE 100 UNITS/ML UNIT SUBQ SCH ×4 (00:59→17:38)
[2017-10-02] MEDS: metroNIDAZOLE 500mg/NS 100mL 500 MG in Premix Fluid 1 BAG IV SCH ×3 (02:53→18:13)
[2017-10-02 06:41] LABS: ALB/GLOB RATIO 1.2 (1.0-1.8); ALBUMIN 2.8 gm/dL (4.2-5.5); ALKALINE PHOSPHATASE 46 U/L (34-104); ANION GAP 9.7 (7.0-16.0); BILIRUBIN,TOTAL 0.4 mg/dL (0.3-1.0); BUN - UREA NITROGEN 11 mg/dL (7-25); CALCIUM SERUM 8.7 mg/dL (8.6-10.3); CARBON DIOXIDE 25.1 mEq/L (21.0-31.0); CHLORIDE 101 mEq/L (98-107); CREATININE - SERUM 0.4 mg/dL (0.7-1.3); GFR AFRICAN-AMERICAN > 60.0 ml/min (>90); GFR NON AFRICAN-AMERICAN > 60.0 ml/min; GLUCOSE 141 mg/dL (70-105); MAGNESIUM 1.9 mg/dL (1.9-2.7); PHOSPHOROUS 2.5 mg/dL (2.5-5.0); POTASSIUM SERUM 3.8 mEq/L (3.5-5.1); SGOT 13 U/L (13-39); SGPT/ALT 9 U/L (7-52); SODIUM SERUM 132 mEq/L (136-145); TOTAL PROTEIN,SERUM 5.1 gm/dL (6.0-8.3)
[2017-10-02] MEDS: Albuterol Nebulizer 2.5mg/3mL HHN SCH ×4 (07:07→21:29)
[2017-10-02] MEDS: Ipratropium Neb 0.5 mg/2.5 mL UD IH SCH ×4 (07:07→21:32)
--- NOTE | 2017-10-02 11:41 | GI Progress Note ---
Subjective - Review of Systems Service Date: 10/02/17 Subjective: No overnight events Objective - Results Result Diagrams: 10/01/17 04:44 10/02/17 05:34 Recent Labs: Laboratory Last Values WBC 22.6 Th/cmm (4.8-10.8) H* 10/01/17 04:44 RBC 4.12 Mil/cmm (4.30-5.70) L 10/01/17 04:44 Hgb 13.6 gm/dL (12-16) 10/01/17 04:44 Hct 40.3 % (41.0-60) L 10/01/17 04:44 MCV 98.0 fl (80-99) 10/01/17 04:44 MCH 33.1 pg (26.0-30.0) H 10/01/17 04:44 MCHC Differential 33.7 pg (28.0-36.0) 10/01/17 04:44 RDW 13.6 % (11.5-20.0) 10/01/17 04:44 Plt Count 309 Th/cmm (150-400) 10/01/17 04:44 MPV 7.6 fl 10/01/17 04:44 Neutrophils % [employer] 10/01/17 04:44 Band Neutrophils % 6 % (0-10) 10/01/17 04:44 Lymphocytes % [employer] COMMISSION[employer] 10/01/17 04:44 Monocytes % 14.9 % (2.0-10.0) H 09/29/17 04:55 Eosinophils % 8.3 % (0.0-5.0) H 09/29/17 04:55 Basophils % 0.7 % (0.0-2.0) 09/29/17 04:55 Neutrophils (Manual) 71 % (40-80) 10/01/17 04:44 Lymphocytes 13 % (20-50) L 10/01/17 04:44 Monocytes 9 % (2-10) 10/01/17 04:44 Eosinophils 1 % (0-5) 10/01/17 04:44 Platelet Estimate ADEQUATE (NORMAL) 09/30/17 04:15 PT 10.6 SECONDS (9.5-11.5) 09/28/17 05:20 INR 1.02 (0.5-1.4) 09/28/17 05:20 Specimen Source Arterial 09/30/17 11:15 Sample Site Right Radial 09/30/17 11:15 pH 7.41 (7.35-7.45) 09/30/17 11:15 pCO2 43.0 mmHg (35.0-45.0) 09/30/17 11:15 pO2 118.0 mmHg (80.0-100.0) H 09/30/17 11:15 HCO3 26.8 mEq/L (20.0-26.0) H 09/30/17 11:15 Base Excess 2.3 mEq/L (-3.0-3.0) 09/30/17 11:15 O2 Saturation 99.0 % (92.0-100.0) 09/30/17 11:15 Cam Test Positive 09/30/17 11:15 Vent Rate N/A 09/30/17 11:15 Inspired O2 40 09/30/17 11:15 Tidal Volume N/A 09/30/17 11:15 PEEP N/A 09/30/17 11:15 Pressure (ins/psv/peep) N/A 09/30/17 11:15 Critical Value DM 09/30/17 11:15 Sodium 132 mEq/L (136-145) L 10/02/17 05:34 Potassium 3.8 mEq/L (3.5-5.1) 10/02/17 05:34 Chloride 101 mEq/L (98-107) 10/02/17 05:34 Carbon Dioxide 25.1 mEq/L (21.0-31.0) 10/02/17 05:34 Anion Gap 9.7 (7.0-16.0) 10/02/17 05:34 BUN 11 mg/dL (7-25) 10/02/17 05:34 Creatinine 0.4 mg/dL (0.7-1.3) L 10/02/17 05:34 Est GFR ( Amer) > 60.0 ml/min (>90) 10/02/17 05:34 Est GFR (Non-Af Amer) > 60.0 ml/min 10/02/17 05:34 BUN/Creatinine Ratio 27.5 10/02/17 05:34 Glucose 141 mg/dL (70-105) H 10/02/17 05:34 POC Glucose 126 MG/DL (70 - 105) H 10/02/17 11:25 Calcium 8.7 mg/dL (8.6-10.3) 10/02/17 05:34 Phosphorus 2.5 mg/dL (2.5-5.0) 10/02/17 05:34 Magnesium 1.9 mg/dL (1.9-2.7) 10/02/17 05:34 Total Bilirubin 0.4 mg/dL (0.3-1.0) 10/02/17 05:34 Direct Bilirubin 0.12 mg/dL (0.0-0.2) 09/29/17 04:15 AST 13 U/L (13-39) 10/02/17 05:34 ALT 9 U/L (7-52) 10/02/17 05:34 Alkaline Phosphatase 46 U/L (34-104) 10/02/17 05:34 Total Protein 5.1 gm/dL (6.0-8.3) L 10/02/17 05:34 Albumin 2.8 gm/dL (4.2-5.5) L 10/02/17 05:34 Globulin 2.3 gm/dL 10/02/17 05:34 Albumin/Globulin Ratio 1.2 (1.0-1.8) 10/02/17 05:34 Prealbumin 13 mg/dL (10-36) 09/30/17 05:20 Triglycerides 43 mg/dL (<150) 09/30/17 04:15 Cholesterol 85 mg/dL (<200) 09/30/17 04:15 Lipase 17 U/L (11-82) 09/23/17 20:53 TSH 1.32 uIU/ml (0.34-5.60) 09/24/17 07:50 Urine Source [place] 09/23/17 20:33 Urine Color YELLOW 09/23/17 20:33 Urine Clarity CLOUDY (CLEAR) 09/23/17 20:33 Urine pH 6.5 (4.6 - 8.0) 09/23/17 20:33 Ur Specific [place] 1.020 (1.005-1.030) 09/23/17 20:33 Urine Protein 30 mg/dL (NEGATIVE) H 09/23/17 20:33 Urine Glucose (UA) NEGATIVE mg/dL (NEGATIVE) 09/23/17 20:33 Urine Ketones NEGATIVE mg/dL (NEGATIVE) 09/23/17 20:33 Urine Blood SMALL (NEGATIVE) H 09/23/17 20:33 Urine Nitrate POSITIVE (NEGATIVE) H 09/23/17 20:33 Urine Bilirubin NEGATIVE (NEGATIVE) 09/23/17 20:33 Urine Urobilinogen 0.2 E.U./dL (0.2 - 1.0) 09/23/17 20:33 Ur Leukocyte Esterase LARGE (NEGATIVE) H 09/23/17 20:33 Urine RBC 5-10 /hpf (0-5) H 09/23/17 20:33 Urine WBC 50-100 /hpf (0-5) H 09/23/17 20:33 Ur Epithelial Cells RARE /lpf (FEW) 09/23/17 20:33 Urine Bacteria MANY /hpf (NONE SEEN) H 09/23/17 20:33 Rheumatoid Factor 31.5 IU/mL (0.0-13.9) H 09/24/17 07:50 Blood Type A POSITIVE 09/28/17 05:30 Antibody Screen NEGATIVE 09/28/17 05:30 - Physical Exam Vitals and I&O: Vital Signs Temp 96.8 F 10/02/17 10:26 Pulse 87 10/02/17 11:02 Resp 18 10/02/17 11:02 BP 109/68 10/02/17 10:26 Pulse Ox 95 10/02/17 11:02 Intake & Output 10/01/17 10/02/17 10/02/17 18:59 06:59 18:59 Intake Total 1281.667 505 Output Total 260 1100 Balance 1021.667 505 -1100 Weight (lbs) 76.204 kg 76.204 kg Intake: Intake, IV Amount 1281.667 505 Levetiracetam 500 mg In 105 105 Sodium Chloride 0.9% 100 ml @ 400 mls/hr IV Q12HR@ 1000,2200 [facility] Rx#: [id number] Multivitamin Inj 5 ml In 976.667 Dextrose 70% 1,200 ml In Amino Acids 8.5% 1,200 ml In Intralipids 20% 200 ml @ 100 mls/hr IV .Q24H [facility] Rx#:[id number] Piperacillin Sodium/ 100 200 Tazobact 4.5 gm In Sodium Chloride 0.9% 100 ml @ 100 mls/hr IV Q8HR [facility] Rx #:[id number] metroNIDAZOLE 500mg/NS 100 100mL 500 mg In Premix Fluid 1 bag @ 100 mls/hr IV Q8H [facility] Rx#:[id number] metroNIDAZOLE 500mg/NS 200 100mL 500 mg In Premix Fluid 1 bag @ 100 mls/hr IV Q8H [facility] Rx#:[id number] Output: Drainage 60 50 Ileostomy 50 50 Left Lower Abdomen 10 Urine 200 1000 Stool 50 Other: # Bowel Movements 0 Stool Characteristics Liquid Brown Weight Source Bedscale Bedscale Active Medications: Current Medications Acetaminophen (Tylenol) 650 mg PO Q4H PRN PRN Reason: Pain Or Fever above 101 Stop: 11/22/17 22:23 Albuterol Sulfate (Albuterol 2.5mg/3ml Neb Ud) 2.5 mg HHN QIDRT [facility] Stop: 11/23/17 06:59 Last Admin: 10/02/17 11:00 Dose: 2.5 mg Bisacodyl (Dulcolax 10 Mg Supp) 10 mg RC DAILY PRN PRN Reason: Constipation Stop: 11/22/17 22:21 Last Admin: 09/28/17 00:44 Dose: 10 mg Enoxaparin Sodium (Lovenox) 40 mg SUBQ DAILY [facility] Stop: 11/29/17 08:59 Last Admin: 10/01/17 09:41 Dose: 40 mg Levetiracetam 500 mg/ Sodium (Chloride) 105 mls @ 400 mls/hr IV Q12HR@1000, 2200 [facility] Stop: 11/23/17 12:14 Last Infusion: 10/01/17 22:59 Dose: Infused Multivitamins/Minerals 5 ml/Dextrose/ Amino Acids/Electrolytes/ Fat Emulsion Intravenous 2,605 mls @ 100 mls/hr IV .Q24H [facility] Stop: 11/25/17 14:59 Last Admin: 10/01/17 15:46 Dose: 100 mls/hr Sodium Chloride (Nacl 0.9%) 250 mls @ 10 mls/hr IV Q24H [facility] Stop: 11/25/17 14:59 Last Admin: 09/30/17 18:09 Dose: 10 mls/hr Piperacillin Sod/Tazobactam (Sod 4.5 gm/ Sodium Chloride) 100 mls @ 100 mls/hr IV Q8HR [facility] Stop: 11/30/17 12:59 Last Infusion: 10/02/17 05:53 Dose: Infused Metronidazole 500 mg/ (Miscellaneous) 100 mls @ 100 mls/hr IV Q8H [facility] Stop: 11/30/17 17:59 Last Infusion: 10/02/17 03:53 Dose: Infused Insulin Aspart (Novolog Insulin Sliding Scale) 0 units SUBQ Q6HR [facility] PRN Reason: Protocol Stop: 11/29/17 17:59 Last Admin: 10/02/17 09:00 Dose: Not Given Ipratropium [place] (Atrovent Neb 0.5mg/2.5ml) 0.5 mg IH QIDRT [facility] Stop: 11/23/17 06:59 Last Admin: 10/02/17 10:59 Dose: 0.5 mg Lactobacillus Rhamnosus (Culturelle 15b) 1 each PO DAILY [facility] Stop: 11/25/17 08:59 Last Admin: 10/01/17 09:40 Dose: 1 each Levothyroxine Sodium 0.1 mg/ (Levothyroxine Sodium 0.025 mg) 0.125 mg PO QDAC [facility] Stop: 11/23/17 07:59 Last Admin: 10/01/17 06:42 Dose: Not Given Methotrexate (Methotrexate) 2.5 mg PO QWEEK 0730 [facility] PRN Reason: Protocol Stop: 11/23/17 07:59 Last Admin: 10/01/17 09:43 Dose: 2.5 mg Mineral Oil (Mineral Oil 30 Ml) 30 ml PO BID [facility] Stop: 11/23/17 08:59 Last Admin: 10/01/17 16:55 Dose: Not Given Miscellaneous (Probiotic Screen) 1 ea MC PRN PRN PRN Reason: PROTOCOL Stop: 11/24/17 12:14 Miscellaneous (Tpn Per Pharmacy) 1 ea MC PRN PRN PRN Reason: PROTOCOL Stop: 11/28/17 12:05 Morphine Sulfate (Morphine) 2 mg IV Q4H PRN PRN Reason: Abdominal Pain Stop: 11/29/17 17:58 Last Admin: 10/01/17 03:43 Dose: 2 mg Pantoprazole Sodium (Protonix) 40 mg IVP DAILY [facility] Stop: 11/28/17 11:59 Last Admin: 10/01/17 09:40 Dose: 40 mg Onfi 20mg 1 PO BID [facility] Stop: 11/25/17 16:59 Last Admin: 10/01/17 16:54 Dose: Not Given Polyethylene Glycol (Miralax) 17 gm PO BID [facility] Stop: 11/23/17 08:59 Last Admin: 10/01/17 16:55 Dose: Not Given Simethicone (Mylicon) 80 mg PO QID PRN PRN Reason: Gas Stop: 11/24/17 12:58 Last Admin: 09/27/17 21:08 Dose: 80 mg Tamsulosin HCl (Flomax) 0.4 mg PO HS [facility] Stop: 11/23/17 20:59 Last Admin: 10/01/17 21:54 Dose: Not Given General: No acute distress HEENT: Atraumatic Neck: Supple Cardiovascular: Regular rate Abdomen: Soft, Distended, Other (JULIUS drain in place, bandage intact. ileostomy with green output), no Tender, no Mass, no Guarding - Procedures Procedures: Procedures Procedure Code Date BYPASS ILEUM TO CUTANEOUS, OPEN APPROACH [id number] 09/23/17 BYPASS STOMACH TO CUTANEOUS, OPEN APPROACH [id number] 09/23/17 ILEOSTOMY/JEJUNOSTOMY 41208 09/23/17 PARTIAL REMOVAL OF COLON 38174 09/23/[address] PLACE GASTROSTOMY TUBE 18758 09/23/17 RESECTION OF LARGE INTESTINE, OPEN APPROACH [id number] 09/23/17 RESPIRATORY VENTILATION, LESS THAN 24 CONSECUTIVE HOURS [id number] 09/23/17 Assessment/Plan - Assessment Assessment: # Fecal impaction # Sigmoid colon dilation to 18cm # Cerebral Palsey and mental retardation Pt had been admitted several times in the recent past for fecal impactions, and has responded in the past to laxatives (from above and below). The pt has had a colonoscopy in 2017 as per report, and noted only stool in the colon, no obstructing mass. Sigmoid colon currently 18cm as of 09/24, massively dilated, and there is a distal impaction. As pt did not satisfactorly improve with conservative treatment, he was taken for subtotal colectomy with ileostomy placement on 09/[address] Butler. A g tube was also placed at gabriel time Plan: - post op care as per Dr Butler - eventually can start feeds via G tube once Dr Butler agrees - pulmonary care as per collating machine operator, now extubated GI to see as needed, please call with any questions
[2017-10-02] MEDS: Lactobacillus Rhamnosus GG 15 Billion CFU CAP.SPRINK PO SCH (14:15)
[2017-10-02] MEDS: ONFI 20MG PO SCH ×2 (14:16→18:00)
[2017-10-02] MEDS: POLYETHYLENE GLYCOL 3350 17 GM PACK PO SCH ×2 (14:17→17:53)
--- NOTE | 2017-10-02 15:22 | General Progress Note ---
Subjective - Review of Systems Service Date: 10/02/17 Events since last encounter: redressed, incision healing no GT residual, start GT feedings Objective - Results Result Diagrams: 10/01/17 04:44 10/02/17 05:34 Recent Labs: Laboratory Last Values WBC 22.6 Th/cmm (4.8-10.8) H* 10/01/17 04:44 RBC 4.12 Mil/cmm (4.30-5.70) L 10/01/17 04:44 Hgb 13.6 gm/dL (12-16) 10/01/17 04:44 Hct 40.3 % (41.0-60) L 10/01/17 04:44 MCV 98.0 fl (80-99) 10/01/17 04:44 MCH 33.1 pg (26.0-30.0) H 10/01/17 04:44 MCHC Differential 33.7 pg (28.0-36.0) 10/01/17 04:44 RDW 13.6 % (11.5-20.0) 10/01/17 04:44 Plt Count 309 Th/cmm (150-400) 10/01/17 04:44 MPV 7.6 fl 10/01/17 04:44 Neutrophils % HAND STRIPPER 10/01/17 04:44 Band Neutrophils % 6 % (0-10) 10/01/17 04:44 Lymphocytes % HAND STRIPPER 10/01/17 04:44 Monocytes % 14.9 % (2.0-10.0) H 09/29/17 04:55 Eosinophils % 8.3 % (0.0-5.0) H 09/29/17 04:55 Basophils % 0.7 % (0.0-2.0) 09/29/17 04:55 Neutrophils (Manual) 71 % (40-80) 10/01/17 04:44 Lymphocytes 13 % (20-50) L 10/01/17 04:44 Monocytes 9 % (2-10) 10/01/17 04:44 Eosinophils 1 % (0-5) 10/01/17 04:44 Platelet Estimate ADEQUATE (NORMAL) 09/30/17 04:15 PT 10.6 SECONDS (9.5-11.5) 09/28/17 05:20 INR 1.02 (0.5-1.4) 09/28/17 05:20 Specimen Source Arterial 09/30/17 11:15 Sample Site Right Radial 09/30/17 11:15 pH 7.41 (7.35-7.45) 09/30/17 11:15 pCO2 43.0 mmHg (35.0-45.0) 09/30/17 11:15 pO2 118.0 mmHg (80.0-100.0) H 09/30/17 11:15 HCO3 26.8 mEq/L (20.0-26.0) H 09/30/17 11:15 Base Excess 2.3 mEq/L (-3.0-3.0) 09/30/17 11:15 O2 Saturation 99.0 % (92.0-100.0) 09/30/17 11:15 Cam Test Positive 09/30/17 11:15 Vent Rate N/A 09/30/17 11:15 Inspired O2 40 09/30/17 11:15 Tidal Volume N/A 09/30/17 11:15 PEEP N/A 09/30/17 11:15 Pressure (ins/psv/peep) N/A 09/30/17 11:15 Critical Value DM 09/30/17 11:15 Sodium 132 mEq/L (136-145) L 10/02/17 05:34 Potassium 3.8 mEq/L (3.5-5.1) 10/02/17 05:34 Chloride 101 mEq/L (98-107) 10/02/17 05:34 Carbon Dioxide 25.1 mEq/L (21.0-31.0) 10/02/17 05:34 Anion Gap 9.7 (7.0-16.0) 10/02/17 05:34 BUN 11 mg/dL (7-25) 10/02/17 05:34 Creatinine 0.4 mg/dL (0.7-1.3) L 10/02/17 05:34 Est GFR ( Amer) > 60.0 ml/min (>90) 10/02/17 05:34 Est GFR (Non-Af Amer) > 60.0 ml/min 10/02/17 05:34 BUN/Creatinine Ratio 27.5 10/02/17 05:34 Glucose 141 mg/dL (70-105) H 10/02/17 05:34 POC Glucose 126 MG/DL (70 - 105) H 10/02/17 11:25 Calcium 8.7 mg/dL (8.6-10.3) 10/02/17 05:34 Phosphorus 2.5 mg/dL (2.5-5.0) 10/02/17 05:34 Magnesium 1.9 mg/dL (1.9-2.7) 10/02/17 05:34 Total Bilirubin 0.4 mg/dL (0.3-1.0) 10/02/17 05:34 Direct Bilirubin 0.12 mg/dL (0.0-0.2) 09/29/17 04:15 AST 13 U/L (13-39) 10/02/17 05:34 ALT 9 U/L (7-52) 10/02/17 05:34 Alkaline Phosphatase 46 U/L (34-104) 10/02/17 05:34 Total Protein 5.1 gm/dL (6.0-8.3) L 10/02/17 05:34 Albumin 2.8 gm/dL (4.2-5.5) L 10/02/17 05:34 Globulin 2.3 gm/dL 10/02/17 05:34 Albumin/Globulin Ratio 1.2 (1.0-1.8) 10/02/17 05:34 Prealbumin 13 mg/dL (10-36) 09/30/17 05:20 Triglycerides 43 mg/dL (<150) 09/30/17 04:15 Cholesterol 85 mg/dL (<200) 09/30/17 04:15 Lipase 17 U/L (11-82) 09/23/17 20:53 TSH 1.32 uIU/ml (0.34-5.60) 09/24/17 07:50 Urine Source [place] 09/23/17 20:33 Urine Color YELLOW 09/23/17 20:33 Urine Clarity CLOUDY (CLEAR) 09/23/17 20:33 Urine pH 6.5 (4.6 - 8.0) 09/23/17 20:33 Ur Specific [place] 1.020 (1.005-1.030) 09/23/17 20:33 Urine Protein 30 mg/dL (NEGATIVE) H 09/23/17 20:33 Urine Glucose (UA) NEGATIVE mg/dL (NEGATIVE) 09/23/17 20:33 Urine Ketones NEGATIVE mg/dL (NEGATIVE) 09/23/17 20:33 Urine Blood SMALL (NEGATIVE) H 09/23/17 20:33 Urine Nitrate POSITIVE (NEGATIVE) H 09/23/17 20:33 Urine Bilirubin NEGATIVE (NEGATIVE) 09/23/17 20:33 Urine Urobilinogen 0.2 E.U./dL (0.2 - 1.0) 09/23/17 20:33 Ur Leukocyte Esterase LARGE (NEGATIVE) H 09/23/17 20:33 Urine RBC 5-10 /hpf (0-5) H 09/23/17 20:33 Urine WBC 50-100 /hpf (0-5) H 09/23/17 20:33 Ur Epithelial Cells RARE /lpf (FEW) 09/23/17 20:33 Urine Bacteria MANY /hpf (NONE SEEN) H 09/23/17 20:33 Rheumatoid Factor 31.5 IU/mL (0.0-13.9) H 09/24/17 07:50 Blood Type A POSITIVE 09/28/17 05:30 Antibody Screen NEGATIVE 09/28/17 05:30 - Physical Exam Vitals and I&O: Vital Signs Temp 97.2 F 10/02/17 11:54 Pulse 87 10/02/17 11:54 Resp 18 10/02/17 11:54 BP 110/72 10/02/17 11:54 Pulse Ox 92 10/02/17 11:54 Intake & Output 10/01/17 10/02/17 10/02/17 18:59 06:59 18:59 Intake Total 1281.667 505 Output Total 260 1100 Balance 1021.667 505 -1100 Weight (lbs) 76.204 kg 76.204 kg Intake: Intake, IV Amount 1281.667 505 Levetiracetam 500 mg In 105 105 Sodium Chloride 0.9% 100 ml @ 400 mls/hr IV Q12HR@ 1000,2200 [facility] Rx#: [id number] Multivitamin Inj 5 ml In 976.667 Dextrose 70% 1,200 ml In Amino Acids 8.5% 1,200 ml In Intralipids 20% 200 ml @ 100 mls/hr IV .Q24H [facility] Rx#:[id number] Piperacillin Sodium/ 100 200 Tazobact 4.5 gm In Sodium Chloride 0.9% 100 ml @ 100 mls/hr IV Q8HR [facility] Rx #:[id number] metroNIDAZOLE 500mg/NS 100 100mL 500 mg In Premix Fluid 1 bag @ 100 mls/hr IV Q8H [facility] Rx#:[id number] metroNIDAZOLE 500mg/NS 200 100mL 500 mg In Premix Fluid 1 bag @ 100 mls/hr IV Q8H [facility] Rx#:[id number] Output: Drainage 60 50 Ileostomy 50 50 Left Lower Abdomen 10 Urine 200 1000 Stool 50 Other: # Bowel Movements 0 Stool Characteristics Liquid Black Brown Weight Source Bedscale Bedscale Active Medications: Current Medications Acetaminophen (Tylenol) 650 mg PO Q4H PRN PRN Reason: Pain Or Fever above 101 Stop: 11/22/17 22:23 Albuterol Sulfate (Albuterol 2.5mg/3ml Neb Ud) 2.5 mg HHN QIDRT [facility] Stop: 11/23/17 06:59 Last Admin: 10/02/17 11:00 Dose: 2.5 mg Bisacodyl (Dulcolax 10 Mg Supp) 10 mg RC DAILY PRN PRN Reason: Constipation Stop: 11/22/17 22:21 Last Admin: 09/28/17 00:44 Dose: 10 mg Enoxaparin Sodium (Lovenox) 40 mg SUBQ DAILY [facility] Stop: 11/29/17 08:59 Last Admin: 10/01/17 09:41 Dose: 40 mg Levetiracetam 500 mg/ Sodium (Chloride) 105 mls @ 400 mls/hr IV Q12HR@1000, 2200 [facility] Stop: 11/23/17 12:14 Last Admin: 10/02/17 14:20 Dose: 100 mls/hr Multivitamins/Minerals 5 ml/Dextrose/ Amino Acids/Electrolytes/ Fat Emulsion Intravenous 2,605 mls @ 100 mls/hr IV .Q24H [facility] Stop: 11/25/17 14:59 Last Admin: 10/01/17 15:46 Dose: 100 mls/hr Sodium Chloride (Nacl 0.9%) 250 mls @ 10 mls/hr IV Q24H [facility] Stop: 11/25/17 14:59 Last Admin: 09/30/17 18:09 Dose: 10 mls/hr Piperacillin Sod/Tazobactam (Sod 4.5 gm/ Sodium Chloride) 100 mls @ 100 mls/hr IV Q8HR [facility] Stop: 11/30/17 12:59 Last Infusion: 10/02/17 05:53 Dose: Infused Metronidazole 500 mg/ (Miscellaneous) 100 mls @ 100 mls/hr IV Q8H [facility] Stop: 11/30/17 17:59 Last Admin: 10/02/17 14:21 Dose: 100 mls/hr Meropenem 500 mg/ Sodium (Chloride) 100 mls @ 100 mls/hr IV Q8H [facility] Stop: 12/01/17 13:31 Insulin Aspart (Novolog Insulin Sliding Scale) 0 units SUBQ Q6HR [facility] PRN Reason: Protocol Stop: 11/29/17 17:59 Last Admin: 10/02/17 14:17 Dose: Not Given Ipratropium [place] (Atrovent Neb 0.5mg/2.5ml) 0.5 mg IH QIDRT [facility] Stop: 11/23/17 06:59 Last Admin: 10/02/17 10:59 Dose: 0.5 mg Lactobacillus Rhamnosus (Culturelle 15b) 1 each PO DAILY [facility] Stop: 11/25/17 08:59 Last Admin: 10/02/17 14:15 Dose: Not Given Levothyroxine Sodium 0.1 mg/ (Levothyroxine Sodium 0.025 mg) 0.125 mg PO QDAC [facility] Stop: 11/23/17 07:59 Last Admin: 10/02/17 14:15 Dose: Not Given Methotrexate (Methotrexate) 2.5 mg PO QWEEK 0730 [facility] PRN Reason: Protocol Stop: 11/23/17 07:59 Last Admin: 10/01/17 09:43 Dose: 2.5 mg Mineral Oil (Mineral Oil 30 Ml) 30 ml PO BID [facility] Stop: 11/23/17 08:59 Last Admin: 10/02/17 14:16 Dose: Not Given Miscellaneous (Probiotic Screen) 1 ea MC PRN PRN PRN Reason: PROTOCOL Stop: 11/24/17 12:14 Miscellaneous (Tpn Per Pharmacy) 1 ea [facility] PRN PRN PRN Reason: PROTOCOL Stop: 11/28/17 12:05 Morphine Sulfate (Morphine) 2 mg IV Q4H PRN PRN Reason: Abdominal Pain Stop: 11/29/17 17:58 Last Admin: 03/28/18 03:43 Dose: 2 mg Pantoprazole Sodium (Protonix) 40 mg IVP DAILY [facility] Stop: 11/28/17 11:59 Last Admin: 10/02/17 14:22 Dose: 40 mg Onfi 20mg 1 PO BID [facility] Stop: 11/25/17 16:59 Last Admin: 10/02/17 14:16 Dose: Not Given Polyethylene Glycol (Miralax) 17 gm PO BID [facility] Stop: 11/23/17 08:59 Last Admin: 10/02/17 14:17 Dose: Not Given Simethicone (Mylicon) 80 mg PO QID PRN PRN Reason: Gas Stop: 11/24/17 12:58 Last Admin: 09/27/17 21:08 Dose: 80 mg Tamsulosin HCl (Flomax) 0.4 mg PO HS [facility] Stop: 11/23/17 20:59 Last Admin: 10/01/17 21:54 Dose: Not Given General: No acute distress HEENT: Atraumatic Neck: Supple Cardiovascular: Regular rate Abdomen: Soft, Distended, Other (JULIUS drain in place, bandage intact. ileostomy with green output), no Tender, no Mass, no Guarding - Procedures Procedures: Procedures Procedure Code Date BYPASS ILEUM TO CUTANEOUS, OPEN APPROACH [id number] 09/23/17 BYPASS STOMACH TO CUTANEOUS, OPEN APPROACH [id number] 09/23/17 ILEOSTOMY/JEJUNOSTOMY 74403 09/23/17 PARTIAL REMOVAL OF COLON 20987 09/23/[address] PL[address] GASTROSTOMY TUBE 13967 09/23/17 RESECTION OF LARGE INTESTINE, OPEN APPROACH [id number] 09/23/17 RESPIRATORY VENTILATION, LESS THAN 24 CONSECUTIVE HOURS [id number] 09/23/17 Nutritional Asmnt/Malnutr-PDOC - Dietary Evaluation Malnutrition Findings (Please click <Entered> for more info): Nutritional Asmnt/Malnutrition Start: 09/27/17 11: 26 Text: Status: Complete Freq: Document 09/27/17 11:26 MG (Rec: 09/27/17 11:34 MG WEEKS- FN) Nutritional Asmnt/Malnutrition Patient General Information Diagnosis abdominal pain, increased abdominal distention Pertinent Medical Hx/Surgical Hx MR, CP, developmental delay, sezure, generalized contractures, bedridden, Hx of megacolon Subjective Information Pt asleep in bed at time of visit Current Diet Order/ Nutrition Support PPN Pertinent Medications culturelle, mineral oil, miralax, mylicon Pertinent Labs 09/27: Na 134, K 4.0, Cl 100, CO2 28.5, BUN 8, Cr 0.5, Ca 9. 7, glucose 102, Mg 1.7, phos 2 .4 Nutritional Hx/Data Height 1.78 m Height (Calculated Centimeters) 177.8 Current Weight (lbs) 82.1 kg Weight (Calculated Kilograms) 82.1 Weight (Calculated Grams) 91497.2 Body Mass Index (BMI) 25.9 Weight Status Overweight GI Symptoms GI Symptoms None Last BM 09/27 Cultural/Ethnic/Zoroastrian Belief None noted Usual diet at home TF Skin Integrity/Comment: kenny score 13 Estimated Nutritional Goals BEE in Kcals: Using Current wt Calories/Kcals/Kg 30kcals/kg Kcals Calculated 2460kcals/day Protein: Using Current wt Protein g/k.2+g/day Protein Calculated 98g+/day Fluid: ml per MD Nutritional Problem 1. Problem Problem Altered GI function related to Etiology GI function as evidenced by Signs/Symptoms: Abdominal distention, abdominal pain. Intervention/Recommendation Comments Recommend initiating PN via central line to adequately meet estimated needs Expected Outcomes/Goals Expected Outcomes/Goals Nutrition needs met
--- NOTE | 2017-10-02 16:26 | Internal Medicine Prog Note ---
Internal Medicine Subjective - Subjective Service Date: 10/02/17 Patient is:: awake Per staff patient has:: tolerating meds Internal Medicine Objective - Results Result Diagrams: 10/01/17 04:44 10/02/17 05:34 Recent Labs: Laboratory Last Values WBC 22.6 Th/cmm (4.8-10.8) H* 10/01/17 04:44 RBC 4.12 Mil/cmm (4.30-5.70) L 10/01/17 04:44 Hgb 13.6 gm/dL (12-16) 10/01/17 04:44 Hct 40.3 % (41.0-60) L 10/01/17 04:44 MCV 98.0 fl (80-99) 10/01/17 04:44 MCH 33.1 pg (26.0-30.0) H 10/01/17 04:44 MCHC Differential 33.7 pg (28.0-36.0) 10/01/17 04:44 RDW 13.6 % (11.5-20.0) 10/01/17 04:44 Plt Count 309 Th/cmm (150-400) 10/01/17 04:44 MPV 7.6 fl 10/01/17 04:44 Neutrophils % [facility] [facility] 10/01/17 04:44 Band Neutrophils % 6 % (0-10) 10/01/17 04:44 Lymphocytes % [employer] 10/01/17 04:44 Monocytes % 14.9 % (2.0-10.0) H 09/29/17 04:55 Eosinophils % 8.3 % (0.0-5.0) H 09/29/17 04:55 Basophils % 0.7 % (0.0-2.0) 09/29/17 04:55 Neutrophils (Manual) 71 % (40-80) 10/01/17 04:44 Lymphocytes 13 % (20-50) L 10/01/17 04:44 Monocytes 9 % (2-10) 10/01/17 04:44 Eosinophils 1 % (0-5) 10/01/17 04:44 Platelet Estimate ADEQUATE (NORMAL) 09/30/17 04:15 PT 10.6 SECONDS (9.5-11.5) 09/28/17 05:20 INR 1.02 (0.5-1.4) 09/28/17 05:20 Specimen Source Arterial 09/30/17 11:15 Sample Site Right Radial 09/30/17 11:15 pH 7.41 (7.35-7.45) 09/30/17 11:15 pCO2 43.0 mmHg (35.0-45.0) 09/30/17 11:15 pO2 118.0 mmHg (80.0-100.0) H 09/30/17 11:15 HCO3 26.8 mEq/L (20.0-26.0) H 09/30/17 11:15 Base Excess 2.3 mEq/L (-3.0-3.0) 09/30/17 11:15 O2 Saturation 99.0 % (92.0-100.0) 09/30/17 11:15 Cam Test Positive 09/30/17 11:15 Vent Rate N/A 09/30/17 11:15 Inspired O2 40 09/30/17 11:15 Tidal Volume N/A 09/30/17 11:15 PEEP N/A 09/30/17 11:15 Pressure (ins/psv/peep) N/A 09/30/17 11:15 Critical Value DM 09/30/17 11:15 Sodium 132 mEq/L (136-145) L 10/02/17 05:34 Potassium 3.8 mEq/L (3.5-5.1) 10/02/17 05:34 Chloride 101 mEq/L (98-107) 10/02/17 05:34 Carbon Dioxide 25.1 mEq/L (21.0-31.0) 10/02/17 05:34 Anion Gap 9.7 (7.0-16.0) 10/02/17 05:34 BUN 11 mg/dL (7-25) 10/02/17 05:34 Creatinine 0.4 mg/dL (0.7-1.3) L 10/02/17 05:34 Est GFR ( Amer) > 60.0 ml/min (>90) 10/02/17 05:34 Est GFR (Non-Af Amer) > 60.0 ml/min 10/02/17 05:34 BUN/Creatinine Ratio 27.5 10/02/17 05:34 Glucose 141 mg/dL (70-105) H 10/02/17 05:34 POC Glucose 126 MG/DL (70 - 105) H 10/02/17 11:25 Calcium 8.7 mg/dL (8.6-10.3) 10/02/17 05:34 Phosphorus 2.5 mg/dL (2.5-5.0) 10/02/17 05:34 Magnesium 1.9 mg/dL (1.9-2.7) 10/02/17 05:34 Total Bilirubin 0.4 mg/dL (0.3-1.0) 10/02/17 05:34 Direct Bilirubin 0.12 mg/dL (0.0-0.2) 09/29/17 04:15 AST 13 U/L (13-39) 10/02/17 05:34 ALT 9 U/L (7-52) 10/02/17 05:34 Alkaline Phosphatase 46 U/L (34-104) 10/02/17 05:34 Total Protein 5.1 gm/dL (6.0-8.3) L 10/02/17 05:34 Albumin 2.8 gm/dL (4.2-5.5) L 10/02/17 05:34 Globulin 2.3 gm/dL 10/02/17 05:34 Albumin/Globulin Ratio 1.2 (1.0-1.8) 10/02/17 05:34 Prealbumin 13 mg/dL (10-36) 09/30/17 05:20 Triglycerides 43 mg/dL (<150) 09/30/17 04:15 Cholesterol 85 mg/dL (<200) 09/30/17 04:15 Lipase 17 U/L (11-82) 09/23/17 20:53 TSH 1.32 uIU/ml (0.34-5.60) 09/24/17 07:50 Urine Source [place] 09/23/17 20:33 Urine Color YELLOW 09/23/17 20:33 Urine Clarity CLOUDY (CLEAR) 09/23/17 20:33 Urine pH 6.5 (4.6 - 8.0) 09/23/17 20:33 Ur Specific [place] 1.020 (1.005-1.030) 09/23/17 20:33 Urine Protein 30 mg/dL (NEGATIVE) H 09/23/17 20:33 Urine Glucose (UA) NEGATIVE mg/dL (NEGATIVE) 09/23/17 20:33 Urine Ketones NEGATIVE mg/dL (NEGATIVE) 09/23/17 20:33 Urine Blood SMALL (NEGATIVE) H 09/23/17 20:33 Urine Nitrate POSITIVE (NEGATIVE) H 09/23/17 20:33 Urine Bilirubin NEGATIVE (NEGATIVE) 09/23/17 20:33 Urine Urobilinogen 0.2 E.U./dL (0.2 - 1.0) 09/23/17 20:33 Ur Leukocyte Esterase LARGE (NEGATIVE) H 09/23/17 20:33 Urine RBC 5-10 /hpf (0-5) H 09/23/17 20:33 Urine WBC 50-100 /hpf (0-5) H 09/23/17 20:33 Ur Epithelial Cells RARE /lpf (FEW) 09/23/17 20:33 Urine Bacteria MANY /hpf (NONE SEEN) H 09/23/17 20:33 Rheumatoid Factor 31.5 IU/mL (0.0-13.9) H 09/24/17 07:50 Blood Type A POSITIVE 09/28/17 05:30 Antibody Screen NEGATIVE 09/28/17 05:30 - Physical Exam Vitals and I&O: Vital Signs Temp 97.2 F 10/02/17 11:54 Pulse 101 10/02/17 15:39 Resp 18 10/02/17 15:39 BP 110/72 10/02/17 11:54 Pulse Ox 95 10/02/17 15:39 Intake & Output 10/01/17 10/02/17 10/02/17 18:59 06:59 18:59 Intake Total 1281.667 505 Output Total 260 1100 Balance 1021.667 505 -1100 Weight (lbs) 168 lb 168 lb Intake: Intake, IV Amount 1281.667 505 Levetiracetam 500 mg In 105 105 Sodium Chloride 0.9% 100 ml @ 400 mls/hr IV Q12HR@ 1000,2200 [facility] Rx#: [id number] Multivitamin Inj 5 ml In 976.667 Dextrose 70% 1,200 ml In Amino Acids 8.5% 1,200 ml In Intralipids 20% 200 ml @ 100 mls/hr IV .Q24H [facility] Rx#:[id number] Piperacillin Sodium/ 100 200 Tazobact 4.5 gm In Sodium Chloride 0.9% 100 ml @ 100 mls/hr IV Q8HR [facility] Rx #:[id number] metroNIDAZOLE 500mg/NS 100 100mL 500 mg In Premix Fluid 1 bag @ 100 mls/hr IV Q8H [facility] Rx#:[id number] metroNIDAZOLE 500mg/NS 200 100mL 500 mg In Premix Fluid 1 bag @ 100 mls/hr IV Q8H [facility] Rx#:[id number] Output: Drainage 60 50 Ileostomy 50 50 Left Lower Abdomen 10 Urine 200 1000 Stool 50 Other: # Bowel Movements 0 Stool Characteristics Liquid Black Brown Weight Source Bedscale Bedscale Active Medications: Current Medications Acetaminophen (Tylenol) 650 mg PO Q4H PRN PRN Reason: Pain Or Fever above 101 Stop: 11/22/17 22:23 Albuterol Sulfate (Albuterol 2.5mg/3ml Neb Ud) 2.5 mg HHN QIDRT [facility] Stop: 11/23/17 06:59 Last Admin: 10/02/17 15:39 Dose: 2.5 mg Bisacodyl (Dulcolax 10 Mg Supp) 10 mg RC DAILY PRN PRN Reason: Constipation Stop: 11/22/17 22:21 Last Admin: 09/28/17 00:44 Dose: 10 mg Enoxaparin Sodium (Lovenox) 40 mg SUBQ DAILY [facility] Stop: 11/29/17 08:59 Last Admin: 10/01/17 09:41 Dose: 40 mg Levetiracetam 500 mg/ Sodium (Chloride) 105 mls @ 400 mls/hr IV Q12HR@1000, 2200 [facility] Stop: 11/23/17 12:14 Last Admin: 10/02/17 14:20 Dose: 100 mls/hr Multivitamins/Minerals 5 ml/Dextrose/ Amino Acids/Electrolytes/ Fat Emulsion Intravenous 2,605 mls @ 100 mls/hr IV .Q24H [facility] Stop: 11/25/17 14:59 Last Admin: 10/01/17 15:46 Dose: 100 mls/hr Sodium Chloride (Nacl 0.9%) 250 mls @ 10 mls/hr IV Q24H [facility] Stop: 11/25/17 14:59 Last Admin: 09/30/17 18:09 Dose: 10 mls/hr Piperacillin Sod/Tazobactam (Sod 4.5 gm/ Sodium Chloride) 100 mls @ 100 mls/hr IV Q8HR [facility] Stop: 11/30/17 12:59 Last Infusion: 10/02/17 05:53 Dose: Infused Metronidazole 500 mg/ (Miscellaneous) 100 mls @ 100 mls/hr IV Q8H [facility] Stop: 11/30/17 17:59 Last Admin: 10/02/17 14:21 Dose: 100 mls/hr Meropenem 500 mg/ Sodium (Chloride) 100 mls @ 100 mls/hr IV Q8H [facility] Stop: 12/01/17 13:31 Insulin Aspart (Novolog Insulin Sliding Scale) 0 units SUBQ Q6HR [facility] PRN Reason: Protocol Stop: 11/29/17 17:59 Last Admin: 10/02/17 14:17 Dose: Not Given Ipratropium [place] (Atrovent Neb 0.5mg/2.5ml) 0.5 mg IH QIDRT [facility] Stop: 11/23/17 06:59 Last Admin: 10/02/17 15:39 Dose: 0.5 mg Lactobacillus Rhamnosus (Culturelle 15b) 1 each PO DAILY [facility] Stop: 11/25/17 08:59 Last Admin: 10/02/17 14:15 Dose: Not Given Levothyroxine Sodium 0.1 mg/ (Levothyroxine Sodium 0.025 mg) 0.125 mg PO QDAC [facility] Stop: 11/23/17 07:59 Last Admin: 10/02/17 14:15 Dose: Not Given Methotrexate (Methotrexate) 2.5 mg PO QWEEK 0730 [facility] PRN Reason: Protocol Stop: 11/23/17 07:59 Last Admin: 10/01/17 09:43 Dose: 2.5 mg Mineral Oil (Mineral Oil 30 Ml) 30 ml PO BID [facility] Stop: 11/23/17 08:59 Last Admin: 10/02/17 14:16 Dose: Not Given Miscellaneous (Probiotic Screen) 1 ea MC PRN PRN PRN Reason: PROTOCOL Stop: 11/24/17 12:14 Miscellaneous (Tpn Per Pharmacy) 1 ea MC PRN PRN PRN Reason: PROTOCOL Stop: 11/28/17 12:05 Morphine Sulfate (Morphine) 2 mg IV Q4H PRN PRN Reason: Abdominal Pain Stop: 11/29/17 17:58 Last Admin: 10/01/17 03:43 Dose: 2 mg Pantoprazole Sodium (Protonix) 40 mg IVP DAILY [facility] Stop: 11/28/17 11:59 Last Admin: 10/02/17 14:22 Dose: 40 mg Onfi 20mg 1 PO BID [facility] Stop: 11/25/17 16:59 Last Admin: 10/02/17 14:16 Dose: Not Given Polyethylene Glycol (Miralax) 17 gm PO BID [facility] Stop: 11/23/17 08:59 Last Admin: 10/02/17 14:17 Dose: Not Given Simethicone (Mylicon) 80 mg PO QID PRN PRN Reason: Gas Stop: 11/24/17 12:58 Last Admin: 09/27/17 21:08 Dose: 80 mg Tamsulosin HCl (Flomax) 0.4 mg PO HS [facility] Stop: 11/23/17 20:59 Last Admin: 10/01/17 21:54 Dose: Not Given General: weak HEENT: NC/AT, PERRLA Lungs: CTAB Cardiovascular: RRR, Normal S1, Normal S2, without murmur Abdomen: distended, +GT Neurological: bedbound - Procedures Procedures: Procedures Procedure Code Date BYPASS ILEUM TO CUTANEOUS, OPEN APPROACH [id number] 09/23/17 BYPASS STOMACH TO CUTANEOUS, OPEN APPROACH [id number] 09/23/17 ILEOSTOMY/JEJUNOSTOMY 34229 09/23/17 PARTIAL REMOVAL OF COLON 17214 09/23/[address] PLACE GASTROSTOMY TUBE 02042 09/23/17 RESECTION OF LARGE INTESTINE, OPEN APPROACH [id number] 09/23/17 RESPIRATORY VENTILATION, LESS THAN 24 CONSECUTIVE HOURS [id number] 09/23/17 Internal Medicine Assmt/Plan - Assessment Assessment: abdominal pain abdominal distention toxic bjorn colon acute uti hyponatremia acute dehydration MR cp leukocytosis seizure protein calorie malnutrition generalized weakness - Plan Plan: will follow financial management consultant recommendations cbc/bmp in am continue current orders Nutritional Asmnt/Malnutr-PDOC - Dietary Evaluation Malnutrition Findings (Please click <Entered> for more info): Nutritional Asmnt/Malnutrition Start: 09/27/17 11: 26 Text: Status: Complete Freq: Document 09/27/17 11:26 MG (Rec: 09/27/17 11:34 MG WEEKS- FN) Nutritional Asmnt/Malnutrition Patient General Information Diagnosis abdominal pain, increased abdominal distention Pertinent Medical Hx/Surgical Hx MR, CP, developmental delay, sezure, generalized contractures, bedridden, Hx of megacolon Subjective Information Pt asleep in bed at time of visit Current Diet Order/ Nutrition Support PPN Pertinent Medications culturelle, mineral oil, miralax, mylicon Pertinent Labs 09/27: Na 134, K 4.0, Cl 100, CO2 28.5, BUN 8, Cr 0.5, Ca 9. 7, glucose 102, Mg 1.7, phos 2 .4 Nutritional Hx/Data Height 5 ft 10 in Height (Calculated Centimeters) 177.8 Current Weight (lbs) 181 lb Weight (Calculated Kilograms) 82.1 Weight (Calculated Grams) 71295.2 Body Mass Index (BMI) 25.9 Weight Status Overweight GI Symptoms GI Symptoms None Last BM 09/27 Cultural/Ethnic/Rastafari Belief None noted Usual diet at home TF Skin Integrity/Comment: kenny score 13 Estimated Nutritional Goals BEE in Kcals: Using Current wt Calories/Kcals/Kg 30kcals/kg Kcals Calculated 2460kcals/day Protein: Using Current wt Protein g/k.2+g/day Protein Calculated 98g+/day Fluid: ml per MD Nutritional Problem 1. Problem Problem Altered GI function related to Etiology GI function as evidenced by Signs/Symptoms: Abdominal distention, abdominal pain. Intervention/Recommendation Comments Recommend initiating PN via central line to adequately meet estimated needs Expected Outcomes/Goals Expected Outcomes/Goals Nutrition needs met
[2017-10-02] MEDS: Meropenem 500 MG in Sodium Chloride 0.9% 100 ML IV SCH ×2 (16:40→22:24)
[2017-10-02] MEDS: Enoxaparin 40 mg/0.4 mL 0.4mL Syr SUBQ SCH (16:41)
[2017-10-02] MEDS: TPN 8.5%-70% CUSTOM IV SCH (17:31)
[2017-10-03] MEDS: INSULIN ASPART SLIDING SCALE 100 UNITS/ML UNIT SUBQ SCH ×4 (00:16→17:02)
[2017-10-03] MEDS: metroNIDAZOLE 500mg/NS 100mL 500 MG in Premix Fluid 1 BAG IV SCH ×2 (01:17→09:15)
[2017-10-03] MEDS: Meropenem 500 MG in Sodium Chloride 0.9% 100 ML IV SCH (05:26)
[2017-10-03 06:22] LABS: EOSINOPHILE ABSOLUTE 0.9 Th/cmm (0.1-0.4); HEMATOCRIT 34.8 % (41.0-60); HEMOGLOBIN 11.5 gm/dL (12-16); LYMPHOCYTE ABSOLUTE 1.6 Th/cmm (1.5-3.0); MEAN CELL VOLUME 97.9 fl (80-99); MEAN CORPUSCULAR HEMOGLOBIN 32.4 pg (26.0-30.0); MEAN CORPUSCULAR HGB CONC 33.1 pg (28.0-36.0); MEAN PLATELET VOLUME 7.5 fl; MONOCYTE ABSOLUTE 2.2 Th/cmm (0.3-1.0); NEUTROPHILE ABSOLUTE 8.7 Th/cmm (1.8-8.0); PLATELET COUNT 350 Th/cmm (150-400); RED BLOOD COUNT 3.56 Mil/cmm (4.30-5.70); RED CELL DISTRIBUTION WIDTH 13.4 % (11.5-20.0); WHITE BLOOD COUNT 13.4 Th/cmm (4.8-10.8)
[2017-10-03 06:24] LABS: % LYMPHOCYTES 12.2 % (20.0-50.0); % MONOCYTES 16.6 % (2.0-10.0); % NEUTROPHILS 64.1 % (40.0-80.0)
[2017-10-03 06:25] LABS: % BASOPHILS 0.1 % (0.0-2.0)
[2017-10-03 06:49] LABS: ALB/GLOB RATIO 1.2 (1.0-1.8); ALBUMIN 2.9 gm/dL (4.2-5.5); ALKALINE PHOSPHATASE 64 U/L (34-104); ANION GAP 14.7 (7.0-16.0); BILIRUBIN,TOTAL 0.6 mg/dL (0.3-1.0); BUN - UREA NITROGEN 14 mg/dL (7-25); CALCIUM SERUM 8.7 mg/dL (8.6-10.3); CARBON DIOXIDE 22.9 mEq/L (21.0-31.0); CHLORIDE 101 mEq/L (98-107); CREATININE - SERUM 0.5 mg/dL (0.7-1.3); GFR AFRICAN-AMERICAN > 60.0 ml/min (>90); GFR NON AFRICAN-AMERICAN > 60.0 ml/min; GLUCOSE 137 mg/dL (70-105); MAGNESIUM 2.2 mg/dL (1.9-2.7); PHOSPHOROUS 3.6 mg/dL (2.5-5.0); POTASSIUM SERUM 3.6 mEq/L (3.5-5.1); SGOT 15 U/L (13-39); SGPT/ALT 9 U/L (7-52); SODIUM SERUM 135 mEq/L (136-145); TOTAL PROTEIN,SERUM 5.4 gm/dL (6.0-8.3)
[2017-10-03] MEDS: Ipratropium Neb 0.5 mg/2.5 mL UD IH SCH ×4 (07:07→19:10)
[2017-10-03] MEDS: Albuterol Nebulizer 2.5mg/3mL HHN SCH ×4 (07:07→19:10)
[2017-10-03] MEDS: Lactobacillus Rhamnosus GG 15 Billion CFU CAP.SPRINK PO SCH ×2 (09:14→17:12)
[2017-10-03] MEDS: POLYETHYLENE GLYCOL 3350 17 GM PACK PO SCH ×2 (09:15→17:12)
[2017-10-03] MEDS: Enoxaparin 40 mg/0.4 mL 0.4mL Syr SUBQ SCH (09:17)
[2017-10-03] MEDS: ONFI 20MG PO SCH ×2 (10:16→17:12)
[2017-10-03] MEDS ORDERED: Hydrocodone/APAP 5mg/325mg Tab PO PRN (12:42)
--- NOTE | 2017-10-03 12:50 | General Progress Note ---
Subjective - Review of Systems Service Date: 10/03/17 Events since last encounter: increase GT feedings, decrease TPN Objective - Results Result Diagrams: 10/03/17 05:40 10/03/17 05:40 Recent Labs: Laboratory Last Values WBC 13.4 Th/cmm (4.8-10.8) H 10/03/17 05:40 RBC 3.56 Mil/cmm (4.30-5.70) L 10/03/17 05:40 Hgb 11.5 gm/dL (12-16) L 10/03/17 05:40 Hct 34.8 % (41.0-60) L 10/03/17 05:40 MCV 97.9 fl (80-99) 10/03/17 05:40 MCH 32.4 pg (26.0-30.0) H 10/03/17 05:40 MCHC Differential 33.1 pg (28.0-36.0) 10/03/17 05:40 RDW 13.4 % (11.5-20.0) 10/03/17 05:40 Plt Count 350 Th/cmm (150-400) 10/03/17 05:40 MPV 7.5 fl 10/03/17 05:40 Neutrophils % 64.1 % (40.0-80.0) 10/03/17 05:40 Band Neutrophils % 6 % (0-10) 10/01/17 04:44 Lymphocytes % 12.2 % (20.0-50.0) L 10/03/17 05:40 Monocytes % 16.6 % (2.0-10.0) H 10/03/17 05:40 Eosinophils % 7.0 % (0.0-5.0) H 10/03/17 05:40 Basophils % 0.1 % (0.0-2.0) 10/03/17 05:40 Neutrophils (Manual) 71 % (40-80) 10/01/17 04:44 Lymphocytes 13 % (20-50) L 10/01/17 04:44 Monocytes 9 % (2-10) 10/01/17 04:44 Eosinophils 1 % (0-5) 10/01/17 04:44 Platelet Estimate ADEQUATE (NORMAL) 09/30/17 04:15 PT 10.6 SECONDS (9.5-11.5) 09/28/17 05:20 INR 1.02 (0.5-1.4) 09/28/17 05:20 Specimen Source Arterial 09/30/17 11:15 Sample Site Right Radial 09/30/17 11:15 pH 7.41 (7.35-7.45) 09/30/17 11:15 pCO2 43.0 mmHg (35.0-45.0) 09/30/17 11:15 pO2 118.0 mmHg (80.0-100.0) H 09/30/17 11:15 HCO3 26.8 mEq/L (20.0-26.0) H 09/30/17 11:15 Base Excess 2.3 mEq/L (-3.0-3.0) 09/30/17 11:15 O2 Saturation 99.0 % (92.0-100.0) 09/30/17 11:15 Cam Test Positive 09/30/17 11:15 Vent Rate N/A 09/30/17 11:15 Inspired O2 40 09/30/17 11:15 Tidal Volume N/A 09/30/17 11:15 PEEP N/A 09/30/17 11:15 Pressure (ins/psv/peep) N/A 09/30/17 11:15 Critical Value DM 09/30/17 11:15 Sodium 135 mEq/L (136-145) L 10/03/17 05:40 Potassium 3.6 mEq/L (3.5-5.1) 10/03/17 05:40 Chloride 101 mEq/L (98-107) 10/03/17 05:40 Carbon Dioxide 22.9 mEq/L (21.0-31.0) 10/03/17 05:40 Anion Gap 14.7 (7.0-16.0) 10/03/17 05:40 BUN 14 mg/dL (7-25) 10/03/17 05:40 Creatinine 0.5 mg/dL (0.7-1.3) L 10/03/17 05:40 Est GFR ( Amer) > 60.0 ml/min (>90) 10/03/17 05:40 Est GFR (Non-Af Amer) > 60.0 ml/min 10/03/17 05:40 BUN/Creatinine Ratio 28.0 10/03/17 05:40 Glucose 137 mg/dL (70-105) H 10/03/17 05:40 POC Glucose 127 MG/DL (70 - 105) H 10/03/17 12:12 Calcium 8.7 mg/dL (8.6-10.3) 10/03/17 05:40 Phosphorus 3.6 mg/dL (2.5-5.0) 10/03/17 05:40 Magnesium 2.2 mg/dL (1.9-2.7) 10/03/17 05:40 Total Bilirubin 0.6 mg/dL (0.3-1.0) 10/03/17 05:40 Direct Bilirubin 0.12 mg/dL (0.0-0.2) 09/29/17 04:15 AST 15 U/L (13-39) 10/03/17 05:40 ALT 9 U/L (7-52) 10/03/17 05:40 Alkaline Phosphatase 64 U/L (34-104) 10/03/17 05:40 Total Protein 5.4 gm/dL (6.0-8.3) L 10/03/17 05:40 Albumin 2.9 gm/dL (4.2-5.5) L 10/03/17 05:40 Globulin 2.5 gm/dL 10/03/17 05:40 Albumin/Globulin Ratio 1.2 (1.0-1.8) 10/03/17 05:40 Prealbumin 13 mg/dL (10-36) 09/30/17 05:20 Triglycerides 43 mg/dL (<150) 09/30/17 04:15 Cholesterol 85 mg/dL (<200) 09/30/17 04:15 Lipase 17 U/L (11-82) 09/23/17 20:53 TSH 1.32 uIU/ml (0.34-5.60) 09/24/17 07:50 Urine Source [place] 09/23/17 20:33 Urine Color YELLOW 09/23/17 20:33 Urine Clarity CLOUDY (CLEAR) 09/23/17 20:33 Urine pH 6.5 (4.6 - 8.0) 09/23/17 20:33 Ur Specific [place] 1.020 (1.005-1.030) 09/23/17 20:33 Urine Protein 30 mg/dL (NEGATIVE) H 09/23/17 20:33 Urine Glucose (UA) NEGATIVE mg/dL (NEGATIVE) 09/23/17 20:33 Urine Ketones NEGATIVE mg/dL (NEGATIVE) 09/23/17 20:33 Urine Blood SMALL (NEGATIVE) H 09/23/17 20:33 Urine Nitrate POSITIVE (NEGATIVE) H 09/23/17 20:33 Urine Bilirubin NEGATIVE (NEGATIVE) 09/23/17 20:33 Urine Urobilinogen 0.2 E.U./dL (0.2 - 1.0) 09/23/17 20:33 Ur Leukocyte Esterase LARGE (NEGATIVE) H 09/23/17 20:33 Urine RBC 5-10 /hpf (0-5) H 09/23/17 20:33 Urine WBC 50-100 /hpf (0-5) H 09/23/17 20:33 Ur Epithelial Cells RARE /lpf (FEW) 09/23/17 20:33 Urine Bacteria MANY /hpf (NONE SEEN) H 09/23/17 20:33 Rheumatoid Factor 31.5 IU/mL (0.0-13.9) H 09/24/17 07:50 Blood Type A POSITIVE 09/28/17 05:30 Antibody Screen NEGATIVE 09/28/17 05:30 - Physical Exam Vitals and I&O: Vital Signs Temp 98.6 F 10/03/17 03:54 Pulse 93 10/03/17 10:28 Resp 17 10/03/17 10:28 BP 112/52 10/03/17 03:54 Pulse Ox 95 10/03/17 10:28 Intake & Output 10/02/17 10/03/17 10/03/17 18:59 06:59 18:59 Intake Total 2980 505 Output Total 1100 850 Balance 1880 -345 Weight (lbs) 76.204 kg 77.655 kg Intake: Intake, IV Amount 2980 505 Levetiracetam 500 mg In 105 105 Sodium Chloride 0.9% 100 ml @ 400 mls/hr IV Q12HR@ 1000,2200 [facility] Rx#: [id number] Meropenem 500 mg In 100 100 Sodium Chloride 0.9% 100 ml @ 100 mls/hr IV Q8H [facility] Rx#:[id number] Multivitamin Inj 5 ml In 2575 Dextrose 70% 1,200 ml In Amino Acids 8.5% 1,200 ml In Intralipids 20% 200 ml @ 100 mls/hr IV .Q24H [facility] Rx#:[id number] Piperacillin Sodium/ 100 100 Tazobact 4.5 gm In Sodium Chloride 0.9% 100 ml @ 100 mls/hr IV Q8HR [facility] Rx #:[id number] metroNIDAZOLE 500mg/NS 100 200 100mL 500 mg In Premix Fluid 1 bag @ 100 mls/hr IV Q8H [facility] Rx#:[id number] Output: Drainage 50 Ileostomy 50 Urine 1000 850 Stool 50 Other: # Voids 0 # Bowel Movements 0 Stool Characteristics Black Weight Source Bedscale Bedscale Active Medications: Current Medications Acetaminophen (Tylenol) 650 mg PO Q4H PRN PRN Reason: Pain Or Fever above 101 Stop: 11/22/17 22:23 Acetaminophen/Hydrocodone Bitart ([place] 5mg/325mg) 1 tab PO Q4H PRN PRN Reason: Pain (Severe) Stop: 12/02/17 12:41 Albuterol Sulfate (Albuterol 2.5mg/3ml Neb Ud) 2.5 mg HHN QIDRT [facility] Stop: 11/23/17 06:59 Last Admin: 10/03/17 10:27 Dose: 2.5 mg Bisacodyl (Dulcolax 10 Mg Supp) 10 mg RC DAILY PRN PRN Reason: Constipation Stop: 11/22/17 22:21 Last Admin: 09/28/17 00:44 Dose: 10 mg Enoxaparin Sodium (Lovenox) 40 mg SUBQ DAILY [facility] Stop: 11/29/17 08:59 Last Admin: 10/03/17 09:17 Dose: 40 mg Multivitamins/Minerals 5 ml/Dextrose/ Amino Acids/Electrolytes/ Fat Emulsion Intravenous 2,605 mls @ 100 mls/hr IV .Q24H [facility] Stop: 11/25/17 14:59 Last Admin: 10/02/17 17:31 Dose: 100 mls/hr Sodium Chloride (Nacl 0.9%) 250 mls @ 10 mls/hr IV Q24H [facility] Stop: 11/25/17 14:59 Last Admin: 09/30/17 18:09 Dose: 10 mls/hr Piperacillin Sod/Tazobactam (Sod 4.5 gm/ Sodium Chloride) 100 mls @ 100 mls/hr IV Q8HR [facility] Stop: 11/30/17 12:59 Last Admin: 10/03/17 04:10 Dose: 100 mls/hr Levetiracetam 750 mg/ Sodium (Chloride) 107.5 mls @ 400 mls/hr IV Q12H [facility] Stop: 12/02/17 12:44 Vancomycin HCl 1 gm/ Sodium (Chloride) 250 mls @ 166.667 mls/hr IV Q24H [facility] Stop: 12/02/17 12:44 Insulin Aspart (Novolog Insulin Sliding Scale) 0 units SUBQ Q6HR [facility] PRN Reason: Protocol Stop: 11/29/17 17:59 Last Admin: 10/03/17 12:42 Dose: Not Given Ipratropium [place] (Atrovent Neb 0.5mg/2.5ml) 0.5 mg IH QIDRT [facility] Stop: 11/23/17 06:59 Last Admin: 10/03/17 10:27 Dose: 0.5 mg Lactobacillus Rhamnosus (Culturelle 15b) 1 each PO BID [facility] Stop: 12/02/17 16:59 Levothyroxine Sodium 0.1 mg/ (Levothyroxine Sodium 0.025 mg) 0.125 mg PO QDAC [facility] Stop: 11/23/17 07:59 Last Admin: 10/03/17 06:47 Dose: 0.125 mg Methotrexate (Methotrexate) 2.5 mg PO QWEEK 0730 [facility] PRN Reason: Protocol Stop: 11/23/17 07:59 Last Admin: 10/01/17 09:43 Dose: 2.5 mg Mineral Oil (Mineral Oil 30 Ml) 30 ml PO BID [facility] Stop: 11/23/17 08:59 Last Admin: 10/03/17 09:14 Dose: 30 ml Miscellaneous (Probiotic Screen) 1 ea MC PRN PRN PRN Reason: PROTOCOL Stop: 11/24/17 12:14 Miscellaneous (Vancomycin Iv Per Pharmacy) 1 ea MC PRN [facility] Stop: 12/02/17 12:44 Morphine Sulfate (Morphine) 2 mg IV Q4H PRN PRN Reason: Abdominal Pain Stop: 11/29/17 17:58 Last Admin: 10/01/17 03:43 Dose: 2 mg Pantoprazole Sodium (Protonix) 40 mg IVP DAILY [facility] Stop: 11/28/17 11:59 Last Admin: 10/03/17 09:14 Dose: 40 mg Onfi 20mg 1 PO BID [facility] Stop: 11/25/17 16:59 Last Admin: 10/03/17 10:16 Dose: 1 Polyethylene Glycol (Miralax) 17 gm PO BID [facility] Stop: 11/23/17 08:59 Last Admin: 10/03/17 09:15 Dose: 17 gm Simethicone (Mylicon) 80 mg PO QID PRN PRN Reason: Gas Stop: 11/24/17 12:58 Last Admin: 09/27/17 21:08 Dose: 80 mg Tamsulosin HCl (Flomax) 0.4 mg PO HS [facility] Stop: 11/23/17 20:59 Last Admin: 10/02/17 21:07 Dose: 0.4 mg General: No acute distress HEENT: Atraumatic Neck: Supple Cardiovascular: Regular rate Abdomen: Soft, Distended, Other (JULIUS drain in place, bandage intact. ileostomy with green output), no Tender, no Mass, no Guarding - Procedures Procedures: Procedures Procedure Code Date BYPASS ILEUM TO CUTANEOUS, OPEN APPROACH [id number] 09/23/17 BYPASS STOMACH TO CUTANEOUS, OPEN APPROACH [id number] 09/23/17 ILEOSTOMY/JEJUNOSTOMY 92182 09/23/17 PARTIAL REMOVAL OF COLON 51375 09/23/[address] PLACE GASTROSTOMY TUBE 11781 09/23/17 RESECTION OF LARGE INTESTINE, OPEN APPROACH [id number] 09/23/17 RESPIRATORY VENTILATION, LESS THAN 24 CONSECUTIVE HOURS [id number] 09/23/17 Nutritional Asmnt/Malnutr-PDOC - Dietary Evaluation Malnutrition Findings (Please click <Entered> for more info): Nutritional Asmnt/Malnutrition Start: 09/27/17 11: 26 Text: Status: Complete Freq: Document 09/27/17 11:26 MG (Rec: 09/27/17 11:34 MG MICKY FN) Nutritional Asmnt/Malnutrition Patient General Information Diagnosis abdominal pain, increased abdominal distention Pertinent Medical Hx/Surgical Hx MR, CP, developmental delay, sezure, generalized contractures, bedridden, Hx of megacolon Subjective Information Pt asleep in bed at time of visit Current Diet Order/ Nutrition Support PPN Pertinent Medications culturelle, mineral oil, miralax, mylicon Pertinent Labs 09/27: Na 134, K 4.0, Cl 100, CO2 28.5, BUN 8, Cr 0.5, Ca 9. 7, glucose 102, Mg 1.7, phos 2 .4 Nutritional Hx/Data Height 1.78 m Height (Calculated Centimeters) 177.8 Current Weight (lbs) 82.1 kg Weight (Calculated Kilograms) 82.1 Weight (Calculated Grams) 45449.2 Body Mass Index (BMI) 25.9 Weight Status Overweight GI Symptoms GI Symptoms None Last BM 09/27 Cultural/Ethnic/Buddhism Belief None noted Usual diet at home TF Skin Integrity/Comment: kenny score 13 Estimated Nutritional Goals BEE in Kcals: Using Current wt Calories/Kcals/Kg 30kcals/kg Kcals Calculated 2460kcals/day Protein: Using Current wt Protein g/k.2+g/day Protein Calculated 98g+/day Fluid: ml per MD Nutritional Problem 1. Problem Problem Altered GI function related to Etiology GI function as evidenced by Signs/Symptoms: Abdominal distention, abdominal pain. Intervention/Recommendation Comments Recommend initiating PN via central line to adequately meet estimated needs Expected Outcomes/Goals Expected Outcomes/Goals Nutrition needs met
--- NOTE | 2017-10-03 13:35 | Internal Medicine Prog Note ---
Internal Medicine Subjective - Subjective Service Date: 10/03/17 Patient seen and examined:: with staff Patient is:: awake Per staff patient has:: tolerating meds Internal Medicine Objective - Results Result Diagrams: 10/03/17 05:40 10/03/17 05:40 Recent Labs: Laboratory Last Values WBC 13.4 Th/cmm (4.8-10.8) H 10/03/17 05:40 RBC 3.56 Mil/cmm (4.30-5.70) L 10/03/17 05:40 Hgb 11.5 gm/dL (12-16) L 10/03/17 05:40 Hct 34.8 % (41.0-60) L 10/03/17 05:40 MCV 97.9 fl (80-99) 10/03/17 05:40 MCH 32.4 pg (26.0-30.0) H 10/03/17 05:40 MCHC Differential 33.1 pg (28.0-36.0) 10/03/17 05:40 RDW 13.4 % (11.5-20.0) 10/03/17 05:40 Plt Count 350 Th/cmm (150-400) 10/03/17 05:40 MPV 7.5 fl 10/03/17 05:40 Neutrophils % 64.1 % (40.0-80.0) 10/03/17 05:40 Band Neutrophils % 6 % (0-10) 10/01/17 04:44 Lymphocytes % 12.2 % (20.0-50.0) L 10/03/17 05:40 Monocytes % 16.6 % (2.0-10.0) H 10/03/17 05:40 Eosinophils % 7.0 % (0.0-5.0) H 10/03/17 05:40 Basophils % 0.1 % (0.0-2.0) 10/03/17 05:40 Neutrophils (Manual) 71 % (40-80) 10/01/17 04:44 Lymphocytes 13 % (20-50) L 10/01/17 04:44 Monocytes 9 % (2-10) 10/01/17 04:44 Eosinophils 1 % (0-5) 10/01/17 04:44 Platelet Estimate ADEQUATE (NORMAL) 09/30/17 04:15 PT 10.6 SECONDS (9.5-11.5) 09/28/17 05:20 INR 1.02 (0.5-1.4) 09/28/17 05:20 Specimen Source Arterial 09/30/17 11:15 Sample Site Right Radial 09/30/17 11:15 pH 7.41 (7.35-7.45) 09/30/17 11:15 pCO2 43.0 mmHg (35.0-45.0) 09/30/17 11:15 pO2 118.0 mmHg (80.0-100.0) H 09/30/17 11:15 HCO3 26.8 mEq/L (20.0-26.0) H 09/30/17 11:15 Base Excess 2.3 mEq/L (-3.0-3.0) 09/30/17 11:15 O2 Saturation 99.0 % (92.0-100.0) 09/30/17 11:15 Cam Test Positive 09/30/17 11:15 Vent Rate N/A 09/30/17 11:15 Inspired O2 40 09/30/17 11:15 Tidal Volume N/A 09/30/17 11:15 PEEP N/A 09/30/17 11:15 Pressure (ins/psv/peep) N/A 09/30/17 11:15 Critical Value DM 09/30/17 11:15 Sodium 135 mEq/L (136-145) L 10/03/17 05:40 Potassium 3.6 mEq/L (3.5-5.1) 10/03/17 05:40 Chloride 101 mEq/L (98-107) 10/03/17 05:40 Carbon Dioxide 22.9 mEq/L (21.0-31.0) 10/03/17 05:40 Anion Gap 14.7 (7.0-16.0) 10/03/17 05:40 BUN 14 mg/dL (7-25) 10/03/17 05:40 Creatinine 0.5 mg/dL (0.7-1.3) L 10/03/17 05:40 Est GFR ( Amer) > 60.0 ml/min (>90) 10/03/17 05:40 Est GFR (Non-Af Amer) > 60.0 ml/min 10/03/17 05:40 BUN/Creatinine Ratio 28.0 10/03/17 05:40 Glucose 137 mg/dL (70-105) H 10/03/17 05:40 POC Glucose 127 MG/DL (70 - 105) H 10/03/17 12:12 Calcium 8.7 mg/dL (8.6-10.3) 10/03/17 05:40 Phosphorus 3.6 mg/dL (2.5-5.0) 10/03/17 05:40 Magnesium 2.2 mg/dL (1.9-2.7) 10/03/17 05:40 Total Bilirubin 0.6 mg/dL (0.3-1.0) 10/03/17 05:40 Direct Bilirubin 0.12 mg/dL (0.0-0.2) 09/29/17 04:15 AST 15 U/L (13-39) 10/03/17 05:40 ALT 9 U/L (7-52) 10/03/17 05:40 Alkaline Phosphatase 64 U/L (34-104) 10/03/17 05:40 Total Protein 5.4 gm/dL (6.0-8.3) L 10/03/17 05:40 Albumin 2.9 gm/dL (4.2-5.5) L 10/03/17 05:40 Globulin 2.5 gm/dL 10/03/17 05:40 Albumin/Globulin Ratio 1.2 (1.0-1.8) 10/03/17 05:40 Prealbumin 13 mg/dL (10-36) 09/30/17 05:20 Triglycerides 43 mg/dL (<150) 09/30/17 04:15 Cholesterol 85 mg/dL (<200) 09/30/17 04:15 Lipase 17 U/L (11-82) 09/23/17 20:53 TSH 1.32 uIU/ml (0.34-5.60) 09/24/17 07:50 Urine Source [place] 09/23/17 20:33 Urine Color YELLOW 09/23/17 20:33 Urine Clarity CLOUDY (CLEAR) 09/23/17 20:33 Urine pH 6.5 (4.6 - 8.0) 09/23/17 20:33 Ur Specific [place] 1.020 (1.005-1.030) 09/23/17 20:33 Urine Protein 30 mg/dL (NEGATIVE) H 09/23/17 20:33 Urine Glucose (UA) NEGATIVE mg/dL (NEGATIVE) 09/23/17 20:33 Urine Ketones NEGATIVE mg/dL (NEGATIVE) 09/23/17 20:33 Urine Blood SMALL (NEGATIVE) H 09/23/17 20:33 Urine Nitrate POSITIVE (NEGATIVE) H 09/23/17 20:33 Urine Bilirubin NEGATIVE (NEGATIVE) 09/23/17 20:33 Urine Urobilinogen 0.2 E.U./dL (0.2 - 1.0) 09/23/17 20:33 Ur Leukocyte Esterase LARGE (NEGATIVE) H 09/23/17 20:33 Urine RBC 5-10 /hpf (0-5) H 09/23/17 20:33 Urine WBC 50-100 /hpf (0-5) H 09/23/17 20:33 Ur Epithelial Cells RARE /lpf (FEW) 09/23/17 20:33 Urine Bacteria MANY /hpf (NONE SEEN) H 09/23/17 20:33 Rheumatoid Factor 31.5 IU/mL (0.0-13.9) H 09/24/17 07:50 Blood Type A POSITIVE 09/28/17 05:30 Antibody Screen NEGATIVE 09/28/17 05:30 - Physical Exam Vitals and I&O: Vital Signs Temp 98.6 F 10/03/17 03:54 Pulse 93 10/03/17 10:28 Resp 17 10/03/17 10:28 BP 112/52 10/03/17 03:54 Pulse Ox 95 10/03/17 10:28 Intake & Output 10/02/17 10/03/17 10/03/17 18:59 06:59 18:59 Intake Total 2980 505 Output Total 1100 850 Balance 1880 -345 Weight (lbs) 168 lb 171 lb 3.2 oz Intake: Intake, IV Amount 2980 505 Levetiracetam 500 mg In 105 105 Sodium Chloride 0.9% 100 ml @ 400 mls/hr IV Q12HR@ 1000,2200 [facility] Rx#: [id number] Meropenem 500 mg In 100 100 Sodium Chloride 0.9% 100 ml @ 100 mls/hr IV Q8H [facility] Rx#:[id number] Multivitamin Inj 5 ml In 2575 Dextrose 70% 1,200 ml In Amino Acids 8.5% 1,200 ml In Intralipids 20% 200 ml @ 100 mls/hr IV .Q24H [facility] Rx#:[id number] Piperacillin Sodium/ 100 100 Tazobact 4.5 gm In Sodium Chloride 0.9% 100 ml @ 100 mls/hr IV Q8HR [facility] Rx #:[id number] metroNIDAZOLE 500mg/NS 100 200 100mL 500 mg In Premix Fluid 1 bag @ 100 mls/hr IV Q8H [facility] Rx#:[id number] Output: Drainage 50 Ileostomy 50 Urine 1000 850 Stool 50 Other: # Voids 0 # Bowel Movements 0 Stool Characteristics Black Weight Source Bedscale Bedscale Active Medications: Current Medications Acetaminophen (Tylenol) 650 mg PO Q4H PRN PRN Reason: Pain Or Fever above 101 Stop: 11/22/17 22:23 Acetaminophen/Hydrocodone Bitart ([place] 5mg/325mg) 1 tab PO Q4H PRN PRN Reason: Pain (Severe) Stop: 12/02/17 12:41 Albuterol Sulfate (Albuterol 2.5mg/3ml Neb Ud) 2.5 mg HHN QIDRT [facility] Stop: 11/23/17 06:59 Last Admin: 10/03/17 10:27 Dose: 2.5 mg Bisacodyl (Dulcolax 10 Mg Supp) 10 mg RC DAILY PRN PRN Reason: Constipation Stop: 11/22/17 22:21 Last Admin: 09/28/17 00:44 Dose: 10 mg Enoxaparin Sodium (Lovenox) 40 mg SUBQ DAILY [facility] Stop: 11/29/17 08:59 Last Admin: 10/03/17 09:17 Dose: 40 mg Sodium Chloride (Nacl 0.9%) 250 mls @ 10 mls/hr IV Q24H [facility] Stop: 11/25/17 14:59 Last Admin: 09/30/17 18:09 Dose: 10 mls/hr Piperacillin Sod/Tazobactam (Sod 4.5 gm/ Sodium Chloride) 100 mls @ 100 mls/hr IV Q8HR [facility] Stop: 11/30/17 12:59 Last Admin: 10/03/17 04:10 Dose: 100 mls/hr Levetiracetam 750 mg/ Sodium (Chloride) 107.5 mls @ 400 mls/hr IV Q12H [facility] Stop: 12/02/17 20:59 Vancomycin HCl 1 gm/ Sodium (Chloride) 250 mls @ 166.667 mls/hr IV Q24H [facility] Stop: 12/02/17 12:44 Insulin Aspart (Novolog Insulin Sliding Scale) 0 units SUBQ Q6HR [facility] PRN Reason: Protocol Stop: 11/29/17 17:59 Last Admin: 10/03/17 12:42 Dose: Not Given Ipratropium [place] (Atrovent Neb 0.5mg/2.5ml) 0.5 mg IH QIDRT [facility] Stop: 11/23/17 06:59 Last Admin: 10/03/17 10:27 Dose: 0.5 mg Lactobacillus Rhamnosus (Culturelle 15b) 1 each PO BID [facility] Stop: 12/02/17 16:59 Levothyroxine Sodium 0.1 mg/ (Levothyroxine Sodium 0.025 mg) 0.125 mg PO QDAC [facility] Stop: 11/23/17 07:59 Last Admin: 10/03/17 06:47 Dose: 0.125 mg Methotrexate (Methotrexate) 2.5 mg PO QWEEK 0730 [facility] PRN Reason: Protocol Stop: 11/23/17 07:59 Last Admin: 10/01/17 09:43 Dose: 2.5 mg Mineral Oil (Mineral Oil 30 Ml) 30 ml PO BID [facility] Stop: 11/23/17 08:59 Last Admin: 10/03/17 09:14 Dose: 30 ml Miscellaneous (Probiotic Screen) 1 ea PRN PRN PRN Reason: PROTOCOL Stop: 11/24/17 12:14 Miscellaneous (Vancomycin Iv Per Pharmacy) 1 ea PRN [facility] Stop: 12/02/17 12:44 Morphine Sulfate (Morphine) 2 mg IV Q4H PRN PRN Reason: Abdominal Pain Stop: 11/29/17 17:58 Last Admin: 10/01/17 03:43 Dose: 2 mg Pantoprazole Sodium (Protonix) 40 mg IVP DAILY [facility] Stop: 11/28/17 11:59 Last Admin: 10/03/17 09:14 Dose: 40 mg Onfi 20mg 1 PO BID [facility] Stop: 11/25/17 16:59 Last Admin: 10/03/17 10:16 Dose: 1 Polyethylene Glycol (Miralax) 17 gm PO BID [facility] Stop: 11/23/17 08:59 Last Admin: 10/03/17 09:15 Dose: 17 gm Simethicone (Mylicon) 80 mg PO QID PRN PRN Reason: Gas Stop: 11/24/17 12:58 Last Admin: 09/27/17 21:08 Dose: 80 mg Tamsulosin HCl (Flomax) 0.4 mg PO HS [facility] Stop: 11/23/17 20:59 Last Admin: 10/02/17 21:07 Dose: 0.4 mg General: weak HEENT: NC/AT, PERRLA Lungs: CTAB Cardiovascular: RRR, Normal S1, Normal S2, without murmur Abdomen: distended, +GT Neurological: bedbound - Procedures Procedures: Procedures Procedure Code Date BYPASS ILEUM TO CUTANEOUS, OPEN APPROACH [id number] 09/23/17 BYPASS STOMACH TO CUTANEOUS, OPEN APPROACH [id number] 09/23/17 ILEOSTOMY/JEJUNOSTOMY 94557 09/23/17 PARTIAL REMOVAL OF COLON 93797 09/23/[address] PL[address] GASTROSTOMY TUBE 22656 09/23/17 RESECTION OF LARGE INTESTINE, OPEN APPROACH [id number] 09/23/17 RESPIRATORY VENTILATION, LESS THAN 24 CONSECUTIVE HOURS [id number] 09/23/17 Internal Medicine Assmt/Plan - Assessment Assessment: abdominal pain abdominal distention toxic bjorn colon acute uti hyponatremia acute dehydration MR cp leukocytosis seizure protein calorie malnutrition generalized weakness - Plan Plan: dc planning in am will follow sap pp consultant recommendations cbc/bmp in am continue current orders Nutritional Asmnt/Malnutr-PDOC - Dietary Evaluation Malnutrition Findings (Please click <Entered> for more info): Nutritional Asmnt/Malnutrition Start: 09/27/17 11: 26 Text: Status: Complete Freq: Document 09/27/17 11:26 MG (Rec: 09/27/17 11:34 MG WEEKS- FNS1) Nutritional Asmnt/Malnutrition Patient General Information Diagnosis abdominal pain, increased abdominal distention Pertinent Medical Hx/Surgical Hx MR, CP, developmental delay, sezure, generalized contractures, bedridden, Hx of megacolon Subjective Information Pt asleep in bed at time of visit Current Diet Order/ Nutrition Support PPN Pertinent Medications culturelle, mineral oil, miralax, mylicon Pertinent Labs 09/27: Na 134, K 4.0, Cl 100, CO2 28.5, BUN 8, Cr 0.5, Ca 9. 7, glucose 102, Mg 1.7, phos 2 .4 Nutritional Hx/Data Height 5 ft 10 in Height (Calculated Centimeters) 177.8 Current Weight (lbs) 181 lb Weight (Calculated Kilograms) 82.1 Weight (Calculated Grams) 96376.2 Body Mass Index (BMI) 25.9 Weight Status Overweight GI Symptoms GI Symptoms None Last BM 09/27 Cultural/Ethnic/Sabianist Belief None noted Usual diet at home TF Skin Integrity/Comment: kenny score 13 Estimated Nutritional Goals BEE in Kcals: Using Current wt Calories/Kcals/Kg 30kcals/kg Kcals Calculated 2460kcals/day Protein: Using Current wt Protein g/k.2+g/day Protein Calculated 98g+/day Fluid: ml per MD Nutritional Problem 1. Problem Problem Altered GI function related to Etiology GI function as evidenced by Signs/Symptoms: Abdominal distention, abdominal pain. Intervention/Recommendation Comments Recommend initiating PN via central line to adequately meet estimated needs Expected Outcomes/Goals Expected Outcomes/Goals Nutrition needs met
[2017-10-04] MEDS: INSULIN ASPART SLIDING SCALE 100 UNITS/ML UNIT SUBQ SCH ×2 (00:12→05:54)
[2017-10-04 06:34] LABS: HEMATOCRIT 33.7 % (41.0-60); HEMOGLOBIN 11.4 gm/dL (12-16); LYMPHOCYTE ABSOLUTE 1.3 Th/cmm (1.5-3.0); MANUAL DIFF REQUIRED? YES; MEAN CELL VOLUME 96.3 fl (80-99); MEAN CORPUSCULAR HEMOGLOBIN 32.6 pg (26.0-30.0); MEAN CORPUSCULAR HGB CONC 33.8 pg (28.0-36.0); MEAN PLATELET VOLUME 7.4 fl; MONOCYTE ABSOLUTE 1.7 Th/cmm (0.3-1.0); NEUTROPHILE ABSOLUTE 6.5 Th/cmm (1.8-8.0); PLATELET COUNT 342 Th/cmm (150-400); RED CELL DISTRIBUTION WIDTH 13.4 % (11.5-20.0); WHITE BLOOD COUNT 10.5 Th/cmm (4.8-10.8)
[2017-10-04 06:42] LABS: BUN - UREA NITROGEN 14 mg/dL (7-25); CALCIUM SERUM 8.6 mg/dL (8.6-10.3); CARBON DIOXIDE 26.9 mEq/L (21.0-31.0); CHLORIDE 104 mEq/L (98-107); CREATININE - SERUM 0.4 mg/dL (0.7-1.3); GFR AFRICAN-AMERICAN > 60.0 ml/min (>90); GFR NON AFRICAN-AMERICAN > 60.0 ml/min; GLUCOSE 122 mg/dL (70-105); PHOSPHOROUS 2.5 mg/dL (2.5-5.0); POTASSIUM SERUM 3.9 mEq/L (3.5-5.1); SODIUM SERUM 135 mEq/L (136-145)
[2017-10-04] MEDS: Albuterol Nebulizer 2.5mg/3mL HHN SCH ×4 (07:36→19:12)
[2017-10-04] MEDS: Ipratropium Neb 0.5 mg/2.5 mL UD IH SCH ×4 (07:36→19:12)
[2017-10-04 08:09] LABS: BAND NEUTROPHILE 1 % (0-10); BASOPHIL 1 % (0-3); EOSINOPHIL 10 % (0-5); LYMPHOCYTE 13 % (20-50); MONOCYTE 14 % (2-10); NEUTROPHILS 61 % (40-80); PLATELET ESTIMATE ADEQUATE (NORMAL); TOTAL CELLS COUNTED 100
[2017-10-04] MEDS: POLYETHYLENE GLYCOL 3350 17 GM PACK PO SCH ×2 (09:51→18:08)
[2017-10-04] MEDS: ONFI 20MG PO SCH ×2 (09:51→18:08)
[2017-10-04] MEDS: Lactobacillus Rhamnosus GG 15 Billion CFU CAP.SPRINK PO SCH ×2 (09:52→18:02)
[2017-10-04] MEDS: Enoxaparin 40 mg/0.4 mL 0.4mL Syr SUBQ SCH (10:00)
--- NOTE | 2017-10-04 10:00 | General Progress Note ---
Subjective - Review of Systems Service Date: 10/04/17 Events since last encounter: labs ok vomited last night, GT no residual, restart GT feedings Objective - Results Result Diagrams: 10/04/17 06:02 10/04/17 06:02 Recent Labs: Laboratory Last Values WBC 10.5 Th/cmm (4.8-10.8) 10/04/17 06:02 RBC 3.50 Mil/cmm (4.30-5.70) L 10/04/17 06:02 Hgb 11.4 gm/dL (12-16) L 10/04/17 06:02 Hct 33.7 % (41.0-60) L 10/04/17 06:02 MCV 96.3 fl (80-99) 10/04/17 06:02 MCH 32.6 pg (26.0-30.0) H 10/04/17 06:02 MCHC Differential 33.8 pg (28.0-36.0) 10/04/17 06:02 RDW 13.4 % (11.5-20.0) 10/04/17 06:02 Plt Count 342 Th/cmm (150-400) 10/04/17 06:02 MPV 7.4 fl 10/04/17 06:02 Neutrophils % 64.1 % (40.0-80.0) 10/03/17 05:40 Band Neutrophils % 1 % (0-10) 10/04/17 06:02 Lymphocytes % 12.2 % (20.0-50.0) L 10/03/17 05:40 Monocytes % 16.6 % (2.0-10.0) H 10/03/17 05:40 Eosinophils % 7.0 % (0.0-5.0) H 10/03/17 05:40 Basophils % 0.1 % (0.0-2.0) 10/03/17 05:40 Neutrophils (Manual) 61 % (40-80) 10/04/17 06:02 Lymphocytes 13 % (20-50) L 10/04/17 06:02 Monocytes 14 % (2-10) H 10/04/17 06:02 Eosinophils 10 % (0-5) H 10/04/17 06:02 Basophils 1 % (0-3) 10/04/17 06:02 Platelet Estimate ADEQUATE (NORMAL) 10/04/17 06:02 PT 10.6 SECONDS (9.5-11.5) 09/28/17 05:20 INR 1.02 (0.5-1.4) 09/28/17 05:20 Specimen Source Arterial 09/30/17 11:15 Sample Site Right Radial 09/30/17 11:15 pH 7.41 (7.35-7.45) 09/30/17 11:15 pCO2 43.0 mmHg (35.0-45.0) 09/30/17 11:15 pO2 118.0 mmHg (80.0-100.0) H 09/30/17 11:15 HCO3 26.8 mEq/L (20.0-26.0) H 09/30/17 11:15 Base Excess 2.3 mEq/L (-3.0-3.0) 09/30/17 11:15 O2 Saturation 99.0 % (92.0-100.0) 09/30/17 11:15 Cam Test Positive 09/30/17 11:15 Vent Rate N/A 09/30/17 11:15 Inspired O2 40 09/30/17 11:15 Tidal Volume N/A 09/30/17 11:15 PEEP N/A 09/30/17 11:15 Pressure (ins/psv/peep) N/A 09/30/17 11:15 Critical Value DM 09/30/17 11:15 Sodium 135 mEq/L (136-145) L 10/04/17 06:02 Potassium 3.9 mEq/L (3.5-5.1) 10/04/17 06:02 Chloride 104 mEq/L (98-107) 10/04/17 06:02 Carbon Dioxide 26.9 mEq/L (21.0-31.0) 10/04/17 06:02 Anion Gap 8.0 (7.0-16.0) 10/04/17 06:02 BUN 14 mg/dL (7-25) 10/04/17 06:02 Creatinine 0.4 mg/dL (0.7-1.3) L 10/04/17 06:02 Est GFR ( Amer) > 60.0 ml/min (>90) 10/04/17 06:02 Est GFR (Non-Af Amer) > 60.0 ml/min 10/04/17 06:02 BUN/Creatinine Ratio 35.0 10/04/17 06:02 Glucose 122 mg/dL (70-105) H 10/04/17 06:02 POC Glucose 127 MG/DL (70 - 105) H 10/04/17 05:43 Calcium 8.6 mg/dL (8.6-10.3) 10/04/17 06:02 Phosphorus 2.5 mg/dL (2.5-5.0) 10/04/17 06:02 Magnesium 2.0 mg/dL (1.9-2.7) 10/04/17 06:02 Total Bilirubin 0.6 mg/dL (0.3-1.0) 10/03/17 05:40 Direct Bilirubin 0.12 mg/dL (0.0-0.2) 09/29/17 04:15 AST 15 U/L (13-39) 10/03/17 05:40 ALT 9 U/L (7-52) 10/03/17 05:40 Alkaline Phosphatase 64 U/L (34-104) 10/03/17 05:40 Total Protein 5.4 gm/dL (6.0-8.3) L 10/03/17 05:40 Albumin 2.9 gm/dL (4.2-5.5) L 10/03/17 05:40 Globulin 2.5 gm/dL 10/03/17 05:40 Albumin/Globulin Ratio 1.2 (1.0-1.8) 10/03/17 05:40 Prealbumin 13 mg/dL (10-36) 09/30/17 05:20 Triglycerides 43 mg/dL (<150) 09/30/17 04:15 Cholesterol 85 mg/dL (<200) 09/30/17 04:15 Lipase 17 U/L (11-82) 09/23/17 20:53 TSH 1.32 uIU/ml (0.34-5.60) 09/24/17 07:50 Urine Source [place] 09/23/17 20:33 Urine Color YELLOW 09/23/17 20:33 Urine Clarity CLOUDY (CLEAR) 09/23/17 20:33 Urine pH 6.5 (4.6 - 8.0) 09/23/17 20:33 Ur Specific [place] 1.020 (1.005-1.030) 09/23/17 20:33 Urine Protein 30 mg/dL (NEGATIVE) H 09/23/17 20:33 Urine Glucose (UA) NEGATIVE mg/dL (NEGATIVE) 09/23/17 20:33 Urine Ketones NEGATIVE mg/dL (NEGATIVE) 09/23/17 20:33 Urine Blood SMALL (NEGATIVE) H 09/23/17 20:33 Urine Nitrate POSITIVE (NEGATIVE) H 09/23/17 20:33 Urine Bilirubin NEGATIVE (NEGATIVE) 09/23/17 20:33 Urine Urobilinogen 0.2 E.U./dL (0.2 - 1.0) 09/23/17 20:33 Ur Leukocyte Esterase LARGE (NEGATIVE) H 09/23/17 20:33 Urine RBC 5-10 /hpf (0-5) H 09/23/17 20:33 Urine WBC 50-100 /hpf (0-5) H 09/23/17 20:33 Ur Epithelial Cells RARE /lpf (FEW) 09/23/17 20:33 Urine Bacteria MANY /hpf (NONE SEEN) H 09/23/17 20:33 Rheumatoid Factor 31.5 IU/mL (0.0-13.9) H 09/24/17 07:50 Blood Type A POSITIVE 09/28/17 05:30 Antibody Screen NEGATIVE 09/28/17 05:30 - Physical Exam Vitals and I&O: Vital Signs Temp 96.4 F 10/04/17 07:33 Pulse 80 10/04/17 07:36 Resp 18 10/04/17 07:36 BP 132/74 10/04/17 07:33 Pulse Ox 100 10/04/17 07:36 Intake & Output 10/03/17 10/04/17 10/04/17 18:59 06:59 18:59 Intake Total 100 350 Output Total 2580 Balance -2480 350 Weight (lbs) 77.564 kg Intake: Intake, IV Amount 100 350 Piperacillin Sodium/ 100 100 Tazobact 4.5 gm In Sodium Chloride 0.9% 100 ml @ 100 mls/hr IV Q8HR [facility] Rx #:[id number] Vancomycin HCl 1 gm In 250 Sodium Chloride 0.9% 250 ml @ 165 mls/hr IV Q8H [facility] Rx#:[id number] Output: Drainage 980 Ileostomy 900 Left Lower Abdomen 80 Urine 1600 Other: Weight Source Bedscale Active Medications: Current Medications Acetaminophen (Tylenol) 650 mg PO Q4H PRN PRN Reason: Pain Or Fever above 101 Stop: 11/22/17 22:23 Acetaminophen/Hydrocodone Bitart ([place] 5mg/325mg) 1 tab PO Q4H PRN PRN Reason: Pain (Severe) Stop: 12/02/17 12:41 Albuterol Sulfate (Albuterol 2.5mg/3ml Neb Ud) 2.5 mg HHN QIDRT [facility] Stop: 11/23/17 06:59 Last Admin: 10/04/17 07:36 Dose: 2.5 mg Bisacodyl (Dulcolax 10 Mg Supp) 10 mg RC DAILY PRN PRN Reason: Constipation Stop: 11/22/17 22:21 Last Admin: 09/28/17 00:44 Dose: 10 mg Enoxaparin Sodium (Lovenox) 40 mg SUBQ DAILY [facility] Stop: 11/29/17 08:59 Last Admin: 10/03/17 09:17 Dose: 40 mg Sodium Chloride (Nacl 0.9%) 250 mls @ 10 mls/hr IV Q24H [facility] Stop: 11/25/17 14:59 Last Admin: 09/30/17 18:09 Dose: 10 mls/hr Piperacillin Sod/Tazobactam (Sod 4.5 gm/ Sodium Chloride) 100 mls @ 100 mls/hr IV Q8HR [facility] Stop: 11/30/17 12:59 Last Admin: 10/04/17 04:57 Dose: 100 mls/hr Levetiracetam 750 mg/ Sodium (Chloride) 107.5 mls @ 400 mls/hr IV Q12H [facility] Stop: 12/02/17 20:59 Last Admin: 10/03/17 21:50 Dose: 400 mls/hr Vancomycin HCl 1 gm/ Sodium (Chloride) 250 mls @ 165 mls/hr IV Q8H [facility] Stop: 12/03/17 00:00 Last Admin: 10/04/17 09:52 Dose: 165 mls/hr Insulin Aspart (Novolog Insulin Sliding Scale) 0 units SUBQ Q6HR [facility] PRN Reason: Protocol Stop: 11/29/17 17:59 Last Admin: 10/04/17 05:54 Dose: Not Given Ipratropium [place] (Atrovent Neb 0.5mg/2.5ml) 0.5 mg IH QIDRT [facility] Stop: 11/23/17 06:59 Last Admin: 10/04/17 07:36 Dose: 0.5 mg Lactobacillus Rhamnosus (Culturelle 15b) 1 each PO BID [facility] Stop: 12/02/17 16:59 Last Admin: 10/04/17 09:52 Dose: 1 each Levothyroxine Sodium 0.1 mg/ (Levothyroxine Sodium 0.025 mg) 0.125 mg PO QDAC [facility] Stop: 11/23/17 07:59 Last Admin: 10/04/17 06:51 Dose: 0.125 mg Methotrexate (Methotrexate) 2.5 mg PO QWEEK 0730 [facility] PRN Reason: Protocol Stop: 11/23/17 07:59 Last Admin: 10/01/17 09:43 Dose: 2.5 mg Mineral Oil (Mineral Oil 30 Ml) 30 ml PO BID [facility] Stop: 11/23/17 08:59 Last Admin: 10/04/17 09:51 Dose: 30 ml Miscellaneous (Probiotic Screen) 1 ea [facility] PRN PRN PRN Reason: PROTOCOL Stop: 11/24/17 12:14 Miscellaneous (Vancomycin Iv Per Pharmacy) 1 ea [facility] PRN [facility] Stop: 12/02/17 12:44 Morphine Sulfate (Morphine) 2 mg IV Q4H PRN PRN Reason: Abdominal Pain Stop: 11/29/17 17:58 Last Admin: 10/01/17 03:43 Dose: 2 mg Pantoprazole Sodium (Protonix) 40 mg IVP DAILY [facility] Stop: 11/28/17 11:59 Last Admin: 10/04/17 09:52 Dose: 40 mg Onfi 20mg 1 PO BID [facility] Stop: 11/25/17 16:59 Last Admin: 10/04/17 09:51 Dose: 1 Polyethylene Glycol (Miralax) 17 gm PO BID [facility] Stop: 11/23/17 08:59 Last Admin: 10/04/17 09:51 Dose: 17 gm Simethicone (Mylicon) 80 mg PO QID PRN PRN Reason: Gas Stop: 11/24/17 12:58 Last Admin: 09/27/17 21:08 Dose: 80 mg Tamsulosin HCl (Flomax) 0.4 mg PO HS [facility] Stop: 11/23/17 20:59 Last Admin: 10/03/17 21:58 Dose: 0.4 mg General: No acute distress HEENT: Atraumatic Neck: Supple Cardiovascular: Regular rate Abdomen: Soft, Distended, Other (JULIUS drain in place, bandage intact. ileostomy with green output), no Tender, no Mass, no Guarding - Procedures Procedures: Procedures Procedure Code Date BYPASS ILEUM TO CUTANEOUS, OPEN APPROACH [id number] 09/23/17 BYPASS STOMACH TO CUTANEOUS, OPEN APPROACH [id number] 09/23/17 ILEOSTOMY/JEJUNOSTOMY 00871 09/23/17 PARTIAL REMOVAL OF COLON 95670 09/23/17 PLACE GASTROSTOMY TUBE 36060 09/23/17 RESECTION OF LARGE INTESTINE, OPEN APPROACH [id number] 09/23/17 RESPIRATORY VENTILATION, LESS THAN 24 CONSECUTIVE HOURS [id number] 09/23/17 Nutritional Asmnt/Malnutr-PDOC - Dietary Evaluation Malnutrition Findings (Please click <Entered> for more info): Nutritional Asmnt/Malnutrition Start: 09/27/17 11: 26 Text: Status: Complete Freq: Document 09/27/17 11:26 MG (Rec: 09/27/17 11:34 MG WEEKS- FNS1) Nutritional Asmnt/Malnutrition Patient General Information Diagnosis abdominal pain, increased abdominal distention Pertinent Medical Hx/Surgical Hx MR, CP, developmental delay, sezure, generalized contractures, bedridden, Hx of megacolon Subjective Information Pt asleep in bed at time of visit Current Diet Order/ Nutrition Support PPN Pertinent Medications culturelle, mineral oil, miralax, mylicon Pertinent Labs 09/27: Na 134, K 4.0, Cl 100, CO2 28.5, BUN 8, Cr 0.5, Ca 9. 7, glucose 102, Mg 1.7, phos 2 .4 Nutritional Hx/Data Height 1.78 m Height (Calculated Centimeters) 177.8 Current Weight (lbs) 82.1 kg Weight (Calculated Kilograms) 82.1 Weight (Calculated Grams) 81675.2 Body Mass Index (BMI) 25.9 Weight Status Overweight GI Symptoms GI Symptoms None Last BM 09/27 Cultural/Ethnic/Buddhist Belief None noted Usual diet at home TF Skin Integrity/Comment: kenny score 13 Estimated Nutritional Goals BEE in Kcals: Using Current wt Calories/Kcals/Kg 30kcals/kg Kcals Calculated 2460kcals/day Protein: Using Current wt Protein g/k.2+g/day Protein Calculated 98g+/day Fluid: ml per MD Nutritional Problem 1. Problem Problem Altered GI function related to Etiology GI function as evidenced by Signs/Symptoms: Abdominal distention, abdominal pain. Intervention/Recommendation Comments Recommend initiating PN via central line to adequately meet estimated needs Expected Outcomes/Goals Expected Outcomes/Goals Nutrition needs met
[2017-10-04] MEDS: Pantoprazole 40 mg/Packet PO SCH (18:09)
--- NOTE | 2017-10-04 20:14 | Discharge Summary ---
DATE OF DISCHARGE: 10/04/2017 CHIEF COMPLAINT: Abdominal pain, distention and not eating. FINAL DIAGNOSES: Abdominal pain secondary to toxic megacolon, status post resection with colostomy, status post G-tube, urinary tract infection, peritonitis, mental retardation, dehydration, cerebral palsy, leukocytosis, protein-calorie malnutrition, seizure disorder, generalized contractures. HISTORY OF PRESENT ILLNESS: This is a 62-year-old male with history of mental retardation, developmental delay, cerebral palsy and seizure, generalized contractures, bedridden, admitted from nursing facility secondary to not eating and drinking, and what appears vomiting and abdominal pain. The patient was brought to the ER for further management. PHYSICAL EXAMINATION: VITAL SIGNS: Blood pressure 119/71, respirations 18, pulse 74, temperature 97.5. GENERAL: Elderly male, appears stated age. NECK: Supple. No mass. LUNGS: Equal breath sounds, few rhonchi. HEART: Regular rate and rhythm with systolic ejection murmur. ABDOMEN: Soft, globular. EXTREMITIES: Positive excoriations. Decubitus ulcer. GASTROINTESTINAL: Positive colostomy, G-tube. NEUROLOGIC: Limited. HOSPITAL COURSE: The patient was admitted to telemetry, continued on proton pump inhibitor. The patient was referred to Dr. Armstrong for GI, Dr. Pineda for Pulmonary, Dr. Butler for surgery, Dr. Toney for psych. The patient was treated conservatively for several days, but was not improving and underwent a bowel resection and ileostomy. The patient is started on G-tube feeding. The patient is currently on IV antibiotic, vancomycin and Zosyn. The resection showed pseudomonas and urine showed pseudomonas and E. coli. The patient is to be discharged to nursing facility with IV antibiotic with a central line. CONDITION ON DISCHARGE: Fair. OVERALL PROGNOSIS: Poor. DISCHARGE INSTRUCTIONS: The patient to continue on current management. JOB# [id number]
[2017-10-05] MEDS: INSULIN ASPART SLIDING SCALE 100 UNITS/ML UNIT SUBQ SCH ×2 (00:27→05:54)
[2017-10-05] MEDS: Ipratropium Neb 0.5 mg/2.5 mL UD IH SCH (07:05)
[2017-10-05] MEDS: Albuterol Nebulizer 2.5mg/3mL HHN SCH (07:05)
--- NOTE | 2017-10-05 09:37 | General Progress Note ---
Subjective - Review of Systems Service Date: 10/05/17 Events since last encounter: tolerating GT feedings, no vomiting forDC Objective - Results Result Diagrams: 10/04/17 06:02 10/04/17 06:02 Recent Labs: Laboratory Last Values WBC 10.5 Th/cmm (4.8-10.8) 10/04/17 06:02 RBC 3.50 Mil/cmm (4.30-5.70) L 10/04/17 06:02 Hgb 11.4 gm/dL (12-16) L 10/04/17 06:02 Hct 33.7 % (41.0-60) L 10/04/17 06:02 MCV 96.3 fl (80-99) 10/04/17 06:02 MCH 32.6 pg (26.0-30.0) H 10/04/17 06:02 MCHC Differential 33.8 pg (28.0-36.0) 10/04/17 06:02 RDW 13.4 % (11.5-20.0) 10/04/17 06:02 Plt Count 342 Th/cmm (150-400) 10/04/17 06:02 MPV 7.4 fl 10/04/17 06:02 Neutrophils % 64.1 % (40.0-80.0) 10/03/17 05:40 Band Neutrophils % 1 % (0-10) 10/04/17 06:02 Lymphocytes % 12.2 % (20.0-50.0) L 10/03/17 05:40 Monocytes % 16.6 % (2.0-10.0) H 10/03/17 05:40 Eosinophils % 7.0 % (0.0-5.0) H 10/03/17 05:40 Basophils % 0.1 % (0.0-2.0) 10/03/17 05:40 Neutrophils (Manual) 61 % (40-80) 10/04/17 06:02 Lymphocytes 13 % (20-50) L 10/04/17 06:02 Monocytes 14 % (2-10) H 10/04/17 06:02 Eosinophils 10 % (0-5) H 10/04/17 06:02 Basophils 1 % (0-3) 10/04/17 06:02 Platelet Estimate ADEQUATE (NORMAL) 10/04/17 06:02 PT 10.6 SECONDS (9.5-11.5) 09/28/17 05:20 INR 1.02 (0.5-1.4) 09/28/17 05:20 Specimen Source Arterial 09/30/17 11:15 Sample Site Right Radial 09/30/17 11:15 pH 7.41 (7.35-7.45) 09/30/17 11:15 pCO2 43.0 mmHg (35.0-45.0) 09/30/17 11:15 pO2 118.0 mmHg (80.0-100.0) H 09/30/17 11:15 HCO3 26.8 mEq/L (20.0-26.0) H 09/30/17 11:15 Base Excess 2.3 mEq/L (-3.0-3.0) 09/30/17 11:15 O2 Saturation 99.0 % (92.0-100.0) 09/30/17 11:15 Cam Test Positive 09/30/17 11:15 Vent Rate N/A 09/30/17 11:15 Inspired O2 40 09/30/17 11:15 Tidal Volume N/A 09/30/17 11:15 PEEP N/A 09/30/17 11:15 Pressure (ins/psv/peep) N/A 09/30/17 11:15 Critical Value DM 09/30/17 11:15 Sodium 135 mEq/L (136-145) L 10/04/17 06:02 Potassium 3.9 mEq/L (3.5-5.1) 10/04/17 06:02 Chloride 104 mEq/L (98-107) 10/04/17 06:02 Carbon Dioxide 26.9 mEq/L (21.0-31.0) 10/04/17 06:02 Anion Gap 8.0 (7.0-16.0) 10/04/17 06:02 BUN 14 mg/dL (7-25) 10/04/17 06:02 Creatinine 0.4 mg/dL (0.7-1.3) L 10/04/17 06:02 Est GFR ( Amer) > 60.0 ml/min (>90) 10/04/17 06:02 Est GFR (Non-Af Amer) > 60.0 ml/min 10/04/17 06:02 BUN/Creatinine Ratio 35.0 10/04/17 06:02 Glucose 122 mg/dL (70-105) H 10/04/17 06:02 POC Glucose 119 MG/DL (70 - 105) H 10/05/17 05:53 Calcium 8.6 mg/dL (8.6-10.3) 10/04/17 06:02 Phosphorus 2.5 mg/dL (2.5-5.0) 10/04/17 06:02 Magnesium 2.0 mg/dL (1.9-2.7) 10/04/17 06:02 Total Bilirubin 0.6 mg/dL (0.3-1.0) 10/03/17 05:40 Direct Bilirubin 0.12 mg/dL (0.0-0.2) 09/29/17 04:15 AST 15 U/L (13-39) 10/03/17 05:40 ALT 9 U/L (7-52) 10/03/17 05:40 Alkaline Phosphatase 64 U/L (34-104) 10/03/17 05:40 Total Protein 5.4 gm/dL (6.0-8.3) L 10/03/17 05:40 Albumin 2.9 gm/dL (4.2-5.5) L 10/03/17 05:40 Globulin 2.5 gm/dL 10/03/17 05:40 Albumin/Globulin Ratio 1.2 (1.0-1.8) 10/03/17 05:40 Prealbumin 13 mg/dL (10-36) 09/30/17 05:20 Triglycerides 43 mg/dL (<150) 09/30/17 04:15 Cholesterol 85 mg/dL (<200) 09/30/17 04:15 Lipase 17 U/L (11-82) 09/23/17 20:53 TSH 1.32 uIU/ml (0.34-5.60) 09/24/17 07:50 Urine Source [place] 09/23/17 20:33 Urine Color YELLOW 09/23/17 20:33 Urine Clarity CLOUDY (CLEAR) 09/23/17 20:33 Urine pH 6.5 (4.6 - 8.0) 09/23/17 20:33 Ur Specific [place] 1.020 (1.005-1.030) 09/23/17 20:33 Urine Protein 30 mg/dL (NEGATIVE) H 09/23/17 20:33 Urine Glucose (UA) NEGATIVE mg/dL (NEGATIVE) 09/23/17 20:33 Urine Ketones NEGATIVE mg/dL (NEGATIVE) 09/23/17 20:33 Urine Blood SMALL (NEGATIVE) H 09/23/17 20:33 Urine Nitrate POSITIVE (NEGATIVE) H 09/23/17 20:33 Urine Bilirubin NEGATIVE (NEGATIVE) 09/23/17 20:33 Urine Urobilinogen 0.2 E.U./dL (0.2 - 1.0) 09/23/17 20:33 Ur Leukocyte Esterase LARGE (NEGATIVE) H 09/23/17 20:33 Urine RBC 5-10 /hpf (0-5) H 09/23/17 20:33 Urine WBC 50-100 /hpf (0-5) H 09/23/17 20:33 Ur Epithelial Cells RARE /lpf (FEW) 09/23/17 20:33 Urine Bacteria MANY /hpf (NONE SEEN) H 09/23/17 20:33 Vancomycin Trough 14.9 ug/mL (10-20) 10/04/17 14:58 Rheumatoid Factor 31.5 IU/mL (0.0-13.9) H 09/24/17 07:50 Blood Type A POSITIVE 09/28/17 05:30 Antibody Screen NEGATIVE 09/28/17 05:30 - Physical Exam Vitals and I&O: Vital Signs Temp 97.2 F 10/05/17 08:00 Pulse 91 10/05/17 08:00 Resp 19 10/05/17 08:00 BP 110/70 10/05/17 08:00 Pulse Ox 98 10/05/17 08:00 Intake & Output 10/04/17 10/05/17 10/05/17 18:59 06:59 18:59 Intake Total 350 600 700 Output Total 450 Balance 350 600 250 Weight (lbs) 79.379 kg 80.739 kg Intake: Intake, IV Amount 350 600 Piperacillin Sodium/ 100 100 Tazobact 4.5 gm In Sodium Chloride 0.9% 100 ml @ 100 mls/hr IV Q8HR [facility] Rx #:[id number] Vancomycin HCl 1 gm In 250 500 Sodium Chloride 0.9% 250 ml @ 165 mls/hr IV Q8H [facility] Rx#:[id number] Tube Feeding 500 Other 200 Output: Urine 450 Other: Weight Source Bedscale Bedscale Active Medications: Current Medications Acetaminophen (Tylenol) 650 mg PO Q4H PRN PRN Reason: Pain Or Fever above 101 Stop: 11/22/17 22:23 Acetaminophen/Hydrocodone Bitart (Sharon 5mg/325mg) 1 tab PO Q4H PRN PRN Reason: Pain (Severe) Stop: 12/02/17 12:41 Last Admin: 10/05/17 02:08 Dose: 1 tab Albuterol Sulfate (Albuterol 2.5mg/3ml Neb Ud) 2.5 mg HHN QIDRT [facility] Stop: 11/23/17 06:59 Last Admin: 10/05/17 07:05 Dose: 2.5 mg Bisacodyl (Dulcolax 10 Mg Supp) 10 mg RC DAILY PRN PRN Reason: Constipation Stop: 11/22/17 22:21 Last Admin: 09/28/17 00:44 Dose: 10 mg Enoxaparin Sodium (Lovenox) 40 mg SUBQ DAILY [facility] Stop: 11/29/17 08:59 Last Admin: 10/04/17 10:00 Dose: 40 mg Sodium Chloride (Nacl 0.9%) 250 mls @ 10 mls/hr IV Q24H [facility] Stop: 11/25/17 14:59 Last Admin: 09/30/17 18:09 Dose: 10 mls/hr Piperacillin Sod/Tazobactam (Sod 4.5 gm/ Sodium Chloride) 100 mls @ 100 mls/hr IV Q8HR [facility] Stop: 11/30/17 12:59 Last Admin: 10/05/17 05:50 Dose: 100 mls/hr Vancomycin HCl 1 gm/ Sodium (Chloride) 250 mls @ 165 mls/hr IV Q8H [facility] Stop: 12/03/17 00:00 Last Infusion: 10/05/17 02:05 Dose: Infused Insulin Aspart (Novolog Insulin Sliding Scale) 0 units SUBQ Q6HR [facility] PRN Reason: Protocol Stop: 11/29/17 17:59 Last Admin: 10/05/17 05:54 Dose: Not Given Ipratropium [place] (Atrovent Neb 0.5mg/2.5ml) 0.5 mg IH QIDRT [facility] Stop: 11/23/17 06:59 Last Admin: 10/05/17 07:05 Dose: 0.5 mg Lactobacillus Rhamnosus (Culturelle 15b) 1 each PO BID [facility] Stop: 12/02/17 16:59 Last Admin: 10/04/17 18:02 Dose: 1 each Levetiracetam (Keppra) 750 mg PO BID [facility] Stop: 12/03/17 16:59 Last Admin: 10/04/17 18:09 Dose: 750 mg Levothyroxine Sodium 0.1 mg/ (Levothyroxine Sodium 0.025 mg) 0.125 mg PO QDAC [facility] Stop: 11/23/17 07:59 Last Admin: 10/04/17 06:51 Dose: 0.125 mg Methotrexate (Methotrexate) 2.5 mg PO QWEEK 0730 [facility] PRN Reason: Protocol Stop: 11/23/17 07:59 Last Admin: 10/01/17 09:43 Dose: 2.5 mg Metoclopramide HCl (Reglan) 5 mg PO TID [facility] Stop: 12/03/17 20:59 Last Admin: 10/04/17 22:02 Dose: 5 mg Mineral Oil (Mineral Oil 30 Ml) 30 ml PO DAILY [facility] Stop: 12/04/17 08:59 Miscellaneous (Probiotic Screen) 1 ea PRN PRN PRN Reason: PROTOCOL Stop: 11/24/17 12:14 Miscellaneous (Vancomycin Iv Per Pharmacy) 1 ea PRN [facility] Stop: 12/02/17 12:44 Pantoprazole Sodium (Protonix) 40 mg PO BID [facility] Stop: 12/03/17 16:59 Last Admin: 10/04/17 18:09 Dose: 40 mg Onfi 20mg 1 PO BID [facility] Stop: 11/25/17 16:59 Last Admin: 10/04/17 18:08 Dose: 1 Polyethylene Glycol (Miralax) 17 gm PO BID [facility] Stop: 11/23/17 08:59 Last Admin: 10/04/17 18:08 Dose: 17 gm Simethicone (Mylicon) 80 mg PO QID PRN PRN Reason: Gas Stop: 11/24/17 12:58 Last Admin: 09/27/17 21:08 Dose: 80 mg Tamsulosin HCl (Flomax) 0.4 mg PO HS [facility] Stop: 11/23/17 20:59 Last Admin: 10/04/17 22:02 Dose: 0.4 mg General: No acute distress HEENT: Atraumatic Neck: Supple Cardiovascular: Regular rate Abdomen: Soft, Distended, Other (JULIUS drain in place, bandage intact. ileostomy with green output), no Tender, no Mass, no Guarding - Procedures Procedures: Procedures Procedure Code Date BYPASS ILEUM TO CUTANEOUS, OPEN APPROACH [id number] 09/23/17 BYPASS STOMACH TO CUTANEOUS, OPEN APPROACH [id number] 09/23/17 ILEOSTOMY/JEJUNOSTOMY 94806 09/23/17 PARTIAL REMOVAL OF COLON 74037 09/23/17 PLACE GASTROSTOMY TUBE 45696 09/23/17 RESECTION OF LARGE INTESTINE, OPEN APPROACH [id number] 09/23/17 RESPIRATORY VENTILATION, LESS THAN 24 CONSECUTIVE HOURS [id number] 09/23/17 Nutritional Asmnt/Malnutr-PDOC - Dietary Evaluation Malnutrition Findings (Please click <Entered> for more info): Nutritional Asmnt/Malnutrition Start: 09/27/17 11: 26 Text: Status: Complete Freq: Document 09/27/17 11:26 MG (Rec: 09/27/17 11:34 MG WEEKS FN) Nutritional Asmnt/Malnutrition Patient General Information Diagnosis abdominal pain, increased abdominal distention Pertinent Medical Hx/Surgical Hx MR, CP, developmental delay, sezure, generalized contractures, bedridden, Hx of megacolon Subjective Information Pt asleep in bed at time of visit Current Diet Order/ Nutrition Support PPN Pertinent Medications culturelle, mineral oil, miralax, mylicon Pertinent Labs 09/27: Na 134, K 4.0, Cl 100, CO2 28.5, BUN 8, Cr 0.5, Ca 9. 7, glucose 102, Mg 1.7, phos 2 .4 Nutritional Hx/Data Height 1.78 m Height (Calculated Centimeters) 177.8 Current Weight (lbs) 82.1 kg Weight (Calculated Kilograms) 82.1 Weight (Calculated Grams) 77629.2 Body Mass Index (BMI) 25.9 Weight Status Overweight GI Symptoms GI Symptoms None Last BM 09/27 Cultural/Ethnic/Anabaptist Belief None noted Usual diet at home TF Skin Integrity/Comment: kenny score 13 Estimated Nutritional Goals BEE in Kcals: Using Current wt Calories/Kcals/Kg 30kcals/kg Kcals Calculated 2460kcals/day Protein: Using Current wt Protein g/k.2+g/day Protein Calculated 98g+/day Fluid: ml per MD Nutritional Problem 1. Problem Problem Altered GI function related to Etiology GI function as evidenced by Signs/Symptoms: Abdominal distention, abdominal pain. Intervention/Recommendation Comments Recommend initiating PN via central line to adequately meet estimated needs Expected Outcomes/Goals Expected Outcomes/Goals Nutrition needs met
[2017-10-05] MEDS: POLYETHYLENE GLYCOL 3350 17 GM PACK PO SCH (09:38)
[2017-10-05] MEDS: Pantoprazole 40 mg/Packet PO SCH (09:38)
[2017-10-05] MEDS: Enoxaparin 40 mg/0.4 mL 0.4mL Syr SUBQ SCH (09:39)
[2017-10-05] MEDS: Lactobacillus Rhamnosus GG 15 Billion CFU CAP.SPRINK PO SCH (09:39)
--- NOTE | 2017-10-05 13:42 | Internal Medicine Prog Note ---
Internal Medicine Subjective - Subjective Patient seen and examined:: other (dc held last night per accepting facility, dc this am) Patient is:: awake Per staff patient has:: tolerating meds Internal Medicine Objective - Results Result Diagrams: 10/04/17 06:02 10/04/17 06:02 Recent Labs: Laboratory Last Values WBC 10.5 Th/cmm (4.8-10.8) 10/04/17 06:02 RBC 3.50 Mil/cmm (4.30-5.70) L 10/04/17 06:02 Hgb 11.4 gm/dL (12-16) L 10/04/17 06:02 Hct 33.7 % (41.0-60) L 10/04/17 06:02 MCV 96.3 fl (80-99) 10/04/17 06:02 MCH 32.6 pg (26.0-30.0) H 10/04/17 06:02 MCHC Differential 33.8 pg (28.0-36.0) 10/04/17 06:02 RDW 13.4 % (11.5-20.0) 10/04/17 06:02 Plt Count 342 Th/cmm (150-400) 10/04/17 06:02 MPV 7.4 fl 10/04/17 06:02 Neutrophils % 64.1 % (40.0-80.0) 10/03/17 05:40 Band Neutrophils % 1 % (0-10) 10/04/17 06:02 Lymphocytes % 12.2 % (20.0-50.0) L 10/03/17 05:40 Monocytes % 16.6 % (2.0-10.0) H 10/03/17 05:40 Eosinophils % 7.0 % (0.0-5.0) H 10/03/17 05:40 Basophils % 0.1 % (0.0-2.0) 10/03/17 05:40 Neutrophils (Manual) 61 % (40-80) 10/04/17 06:02 Lymphocytes 13 % (20-50) L 10/04/17 06:02 Monocytes 14 % (2-10) H 10/04/17 06:02 Eosinophils 10 % (0-5) H 10/04/17 06:02 Basophils 1 % (0-3) 10/04/17 06:02 Platelet Estimate ADEQUATE (NORMAL) 10/04/17 06:02 PT 10.6 SECONDS (9.5-11.5) 09/28/17 05:20 INR 1.02 (0.5-1.4) 09/28/17 05:20 Specimen Source Arterial 09/30/17 11:15 Sample Site Right Radial 09/30/17 11:15 pH 7.41 (7.35-7.45) 09/30/17 11:15 pCO2 43.0 mmHg (35.0-45.0) 09/30/17 11:15 pO2 118.0 mmHg (80.0-100.0) H 09/30/17 11:15 HCO3 26.8 mEq/L (20.0-26.0) H 09/30/17 11:15 Base Excess 2.3 mEq/L (-3.0-3.0) 09/30/17 11:15 O2 Saturation 99.0 % (92.0-100.0) 09/30/17 11:15 Cam Test Positive 09/30/17 11:15 Vent Rate N/A 09/30/17 11:15 Inspired O2 40 09/30/17 11:15 Tidal Volume N/A 09/30/17 11:15 PEEP N/A 09/30/17 11:15 Pressure (ins/psv/peep) N/A 09/30/17 11:15 Critical Value DM 09/30/17 11:15 Sodium 135 mEq/L (136-145) L 10/04/17 06:02 Potassium 3.9 mEq/L (3.5-5.1) 10/04/17 06:02 Chloride 104 mEq/L (98-107) 10/04/17 06:02 Carbon Dioxide 26.9 mEq/L (21.0-31.0) 10/04/17 06:02 Anion Gap 8.0 (7.0-16.0) 10/04/17 06:02 BUN 14 mg/dL (7-25) 10/04/17 06:02 Creatinine 0.4 mg/dL (0.7-1.3) L 10/04/17 06:02 Est GFR ( Amer) > 60.0 ml/min (>90) 10/04/17 06:02 Est GFR (Non-Af Amer) > 60.0 ml/min 10/04/17 06:02 BUN/Creatinine Ratio 35.0 10/04/17 06:02 Glucose 122 mg/dL (70-105) H 10/04/17 06:02 POC Glucose 119 MG/DL (70 - 105) H 10/05/17 05:53 Calcium 8.6 mg/dL (8.6-10.3) 10/04/17 06:02 Phosphorus 2.5 mg/dL (2.5-5.0) 10/04/17 06:02 Magnesium 2.0 mg/dL (1.9-2.7) 10/04/17 06:02 Total Bilirubin 0.6 mg/dL (0.3-1.0) 10/03/17 05:40 Direct Bilirubin 0.12 mg/dL (0.0-0.2) 09/29/17 04:15 AST 15 U/L (13-39) 10/03/17 05:40 ALT 9 U/L (7-52) 10/03/17 05:40 Alkaline Phosphatase 64 U/L (34-104) 10/03/17 05:40 Total Protein 5.4 gm/dL (6.0-8.3) L 10/03/17 05:40 Albumin 2.9 gm/dL (4.2-5.5) L 10/03/17 05:40 Globulin 2.5 gm/dL 10/03/17 05:40 Albumin/Globulin Ratio 1.2 (1.0-1.8) 10/03/17 05:40 Prealbumin 13 mg/dL (10-36) 09/30/17 05:20 Triglycerides 43 mg/dL (<150) 09/30/17 04:15 Cholesterol 85 mg/dL (<200) 09/30/17 04:15 Lipase 17 U/L (11-82) 09/23/17 20:53 TSH 1.32 uIU/ml (0.34-5.60) 09/24/17 07:50 Urine Source [place] 09/23/17 20:33 Urine Color YELLOW 09/23/17 20:33 Urine Clarity CLOUDY (CLEAR) 09/23/17 20:33 Urine pH 6.5 (4.6 - 8.0) 09/23/17 20:33 Ur Specific [place] 1.020 (1.005-1.030) 09/23/17 20:33 Urine Protein 30 mg/dL (NEGATIVE) H 09/23/17 20:33 Urine Glucose (UA) NEGATIVE mg/dL (NEGATIVE) 09/23/17 20:33 Urine Ketones NEGATIVE mg/dL (NEGATIVE) 09/23/17 20:33 Urine Blood SMALL (NEGATIVE) H 09/23/17 20:33 Urine Nitrate POSITIVE (NEGATIVE) H 09/23/17 20:33 Urine Bilirubin NEGATIVE (NEGATIVE) 09/23/17 20:33 Urine Urobilinogen 0.2 E.U./dL (0.2 - 1.0) 09/23/17 20:33 Ur Leukocyte Esterase LARGE (NEGATIVE) H 09/23/17 20:33 Urine RBC 5-10 /hpf (0-5) H 09/23/17 20:33 Urine WBC 50-100 /hpf (0-5) H 09/23/17 20:33 Ur Epithelial Cells RARE /lpf (FEW) 09/23/17 20:33 Urine Bacteria MANY /hpf (NONE SEEN) H 09/23/17 20:33 Vancomycin Trough 14.9 ug/mL (10-20) 10/04/17 14:58 Rheumatoid Factor 31.5 IU/mL (0.0-13.9) H 09/24/17 07:50 Blood Type A POSITIVE 09/28/17 05:30 Antibody Screen NEGATIVE 09/28/17 05:30 - Physical Exam Vitals and I&O: Vital Signs Temp 97.2 F 10/05/17 08:00 Pulse 91 10/05/17 08:00 Resp 19 10/05/17 08:00 BP 110/70 10/05/17 08:00 Pulse Ox 98 10/05/17 08:00 Intake & Output 10/04/17 10/05/17 10/05/17 18:59 06:59 18:59 Intake Total 350 600 700 Output Total 450 Balance 350 600 250 Weight (lbs) 79.379 kg 80.739 kg Intake: Intake, IV Amount 350 600 Piperacillin Sodium/ 100 100 Tazobact 4.5 gm In Sodium Chloride 0.9% 100 ml @ 100 mls/hr IV Q8HR [facility] Rx #:[id number] Vancomycin HCl 1 gm In 250 500 Sodium Chloride 0.9% 250 ml @ 165 mls/hr IV Q8H [facility] Rx#:[id number] Tube Feeding 500 Other 200 Output: Urine 450 Other: Weight Source Bedscale Bedscale General: weak HEENT: NC/AT, PERRLA Lungs: CTAB Cardiovascular: RRR, Normal S1, Normal S2, without murmur Abdomen: distended, +GT Neurological: bedbound - Procedures Procedures: Procedures Procedure Code Date BYPASS ILEUM TO CUTANEOUS, OPEN APPROACH [id number] 09/23/17 BYPASS STOMACH TO CUTANEOUS, OPEN APPROACH [id number] 09/23/17 ILEOSTOMY/JEJUNOSTOMY 38742 09/23/17 PARTIAL REMOVAL OF COLON 74201 09/23/[address] PLACE GASTROSTOMY TUBE 36116 09/23/17 RESECTION OF LARGE INTESTINE, OPEN APPROACH [id number] 09/23/17 RESPIRATORY VENTILATION, LESS THAN 24 CONSECUTIVE HOURS [id number] 09/23/17 Nutritional Asmnt/Malnutr-PDOC - Dietary Evaluation Malnutrition Findings (Please click <Entered> for more info): Nutritional Asmnt/Malnutrition Start: 09/27/17 11: 26 Text: Status: Complete Freq: Document 09/27/17 11:26 MG (Rec: 09/27/17 11:34 MG MICKY- FN) Nutritional Asmnt/Malnutrition Patient General Information Diagnosis abdominal pain, increased abdominal distention Pertinent Medical Hx/Surgical Hx MR, CP, developmental delay, sezure, generalized contractures, bedridden, Hx of megacolon Subjective Information Pt asleep in bed at time of visit Current Diet Order/ Nutrition Support PPN Pertinent Medications culturelle, mineral oil, miralax, mylicon Pertinent Labs 09/27: Na 134, K 4.0, Cl 100, CO2 28.5, BUN 8, Cr 0.5, Ca 9. 7, glucose 102, Mg 1.7, phos 2 .4 Nutritional Hx/Data Height 1.78 m Height (Calculated Centimeters) 177.8 Current Weight (lbs) 82.1 kg Weight (Calculated Kilograms) 82.1 Weight (Calculated Grams) 09445.2 Body Mass Index (BMI) 25.9 Weight Status Overweight GI Symptoms GI Symptoms None Last BM 09/27 Cultural/Ethnic/Cheondoism Belief None noted Usual diet at home TF Skin Integrity/Comment: kenny score 13 Estimated Nutritional Goals BEE in Kcals: Using Current wt Calories/Kcals/Kg 30kcals/kg Kcals Calculated 2460kcals/day Protein: Using Current wt Protein g/k.2+g/day Protein Calculated 98g+/day Fluid: ml per MD Nutritional Problem 1. Problem Problem Altered GI function related to Etiology GI function as evidenced by Signs/Symptoms: Abdominal distention, abdominal pain. Intervention/Recommendation Comments Recommend initiating PN via central line to adequately meet estimated needs Expected Outcomes/Goals Expected Outcomes/Goals Nutrition needs met
== END 2017-10-05 10:45 | DRG 326 ==
LOC: ER 18:05 → MSI 22:32 → TELE 09-29 03:00 → ICU 09-29 10:00 → TELE 10-01 15:00
PROVIDERS: ADMIT Internal Medicine; ATTEND Internal Medicine
PROC: 3E0436Z Introduction of Nutritional Substance into Central Vein, Percutaneous Approach (ICD-10-PCS; 2017-09-28)
PROC: 0DTE0ZZ Resection of Large Intestine, Open Approach (ICD-10-PCS; principal; 2017-09-29)
PROC: 0D1B0Z4 Bypass Ileum to Cutaneous, Open Approach (ICD-10-PCS; 2017-09-29)
PROC: 0DH60UZ Insertion of Feeding Device into Stomach, Open Approach (ICD-10-PCS; 2017-09-29)
PROC: 5A1935Z Respiratory Ventilation, Less than 24 Consecutive Hours (ICD-10-PCS; 2017-09-29)
PROC: 0DNW0ZZ Release Peritoneum, Open Approach (ICD-10-PCS; 2017-09-29)
PROC: 0BH17EZ Insertion of Endotracheal Airway into Trachea, Via Natural or Artificial Opening (ICD-10-PCS; 2017-09-29)
DX: K59.31 Toxic megacolon (principal); R53.2 Functional quadriplegia; J18.9 Pneumonia, unspecified organism; E46 Unspecified protein-calorie malnutrition; F72 Severe intellectual disabilities; N39.0 Urinary tract infection, site not specified; E87.1 Hypo-osmolality and hyponatremia; K56.50 Intestinal adhesions [bands], unspecified as to partial versus complete obstruction; E86.0 Dehydration; G80.9 Cerebral palsy, unspecified; G40.909 Epilepsy, unspecified, not intractable, without status epilepticus; E03.9 Hypothyroidism, unspecified; M81.0 Age-related osteoporosis without current pathological fracture; M19.90 Unspecified osteoarthritis, unspecified site; K56.41 Fecal impaction; H40.9 Unspecified glaucoma; B96.5 Pseudomonas (aeruginosa) (mallei) (pseudomallei) as the cause of diseases classified elsewhere; B96.20 Unspecified Escherichia coli [E. coli] as the cause of diseases classified elsewhere; Z88.8 Allergy status to other drugs, medicaments and biological substances; Z68.25 Body mass index [BMI] 25.0-25.9, adult
CPT/HCPCS: 36415-UA; 36600-90; 71045-TC; 74000-TC; 80048-TC; 80053-TC; 80076-TC; 80202-TC; 81001-TC; 82040-TC; 82465-TC; 82803-TC; 82948-90; 83690-TC; 83735-TC; 84100-TC; 84134-90; 84443-TC; 84478-TC; 85007-TC; 85025-TC; 85027-TC; 85610-TC; 86430-90; 86850-TC; 86900-TC; 86901-TC; 87070-90; 87075-90; 87086-90; 87205-90; 90779; 90799; 93005; 94002; 94003; 94760; 96372; C9113; J0692; J1650; J1815; J1953; J2001; J2060; J2185; J2405; J2543; J2704; J2710; J3010; J3370; J3475; J7040; J7042; J7613; J8610; V2790; X5716; X6024; X6598; Z7610

== ENCOUNTER 2017-10-24 11:07 | Inpatient (IN) | payer MEDICARE, MEDICAID ==
[2017-10-24] MEDS ORDERED: Linezolid 600mg/300mL 600 MG/300 ML BAG IV ONE (12:03)
[2017-10-24] MEDS ORDERED: Meropenem 1 GM in Sodium Chloride 0.9% 100 ML IV ONE (12:06)
[2017-10-24] MEDS ORDERED: Fluconazole 200mg/100mL 200 MG/100 ML BAG IV ONE ×2 (12:08→12:58)
--- NOTE | 2017-10-24 12:49 | Diagnostic Imaging Report ---
Portable chest x-ray HISTORY: Shortness of breath Compared with the prior exam of September 30, 2017, the patient is severely rotated. The heart appears enlarged. There is suggestion of persistent density in the left lower lobe unchanged from the earlier exam. Findings may correspond to abnormal parenchymal changes noted on a CT scan of September 23, 2017. IMPRESSION: 1. No significant change compared to the prior exam of September 30, 2017 as noted above.
[2017-10-24 12:53] LABS: % BASOPHILS 2.1 % (0.0-2.0); % EOSINOPHILS 4.2 % (0.0-5.0); % LYMPHOCYTES 17.9 % (20.0-50.0); % MONOCYTES 10.5 % (2.0-10.0); % NEUTROPHILS 65.3 % (40.0-80.0); BASOPHILE ABSOLUTE 0.3 Th/cumm (0-0.2); EOSINOPHILE ABSOLUTE 0.5 Th/cmm (0.1-0.4); HEMATOCRIT 41.8 % (41.0-60); HEMOGLOBIN 14.1 gm/dL (12-16); LYMPHOCYTE ABSOLUTE 2.2 Th/cmm (1.5-3.0); MEAN CELL VOLUME 94.8 fl (80-99); MEAN CORPUSCULAR HGB CONC 33.7 pg (28.0-36.0); MEAN PLATELET VOLUME 7.4 fl; MONOCYTE ABSOLUTE 1.3 Th/cmm (0.3-1.0); NEUTROPHILE ABSOLUTE 7.8 Th/cmm (1.8-8.0); PLATELET COUNT 431 Th/cmm (150-400); RED BLOOD COUNT 4.41 Mil/cmm (4.30-5.70); RED CELL DISTRIBUTION WIDTH 13.9 % (11.5-20.0)
[2017-10-24 12:59] LABS: WHITE BLOOD COUNT 12.1 Th/cmm (4.8-10.8)
[2017-10-24 13:13] LABS: ALB/GLOB RATIO 1.2 (1.0-1.8); ALBUMIN 4.2 gm/dL (4.2-5.5); BILIRUBIN,TOTAL 0.2 mg/dL (0.3-1.0); TOTAL PROTEIN,SERUM 7.6 gm/dL (6.0-8.3)
--- NOTE | 2017-10-24 13:16 | Diagnostic Imaging Report ---
KUB abdominal film HISTORY: Abdominal distention There is a nonspecific gas pattern of nondilated bowel. No free peritoneal air. Catheter tubing noted over the left side of the abdomen. Surgical suture material noted in the left mid pelvis. Scoliosis of the thoracolumbar spine convexity to the right. This may be positional. There appears to be partial compression involving the bodies of L3 and L4. IMPRESSION: 1. Nonspecific bowel gas pattern
[2017-10-24 13:21] LABS: BILIRUBIN,DIRECT 0.05 mg/dL (0.0-0.2)
[2017-10-24 13:40] LABS: URINE MICROSCOPIC INDICATED? YES; URINE SOURCE FOLEY PORT
[2017-10-24 13:41] LABS: URINE BILIRUBIN NEGATIVE (NEGATIVE); URINE BLOOD TRACE (NEGATIVE); URINE GLUCOSE (UA) NEGATIVE (NEGATIVE); URINE KETONE NEGATIVE (NEGATIVE); URINE LEUKOCYTE ESTERASE LARGE (NEGATIVE); URINE NITRATE POSITIVE (NEGATIVE); URINE PROTEIN 30 mg/dL (NEGATIVE); URINE UROBILINOGEN 0.2 E.U./dL (0.2 - 1.0)
[2017-10-24 14:01] LABS: URINE COLOR YELLOW
[2017-10-24 14:03] LABS: URINE CLARITY HAZY (CLEAR)
[2017-10-24 14:05] LABS: URINE BACTERIA FEW /hpf (NONE SEEN); URINE EPITHELIAL CELLS OCCASIONAL /lpf (FEW); URINE WBC 50-100 /hpf (0-5)
[2017-10-24] MEDS ORDERED: LEVALBUTEROL HCL HHN PRN (15:33)
[2017-10-24] MEDS ORDERED: [UNRECOGNIZED DRUG - OTHER] PO PRN (15:33)
[2017-10-24] MEDS ORDERED: Guaifenesin DM 10 ML UDC PO PRN (15:33)
[2017-10-24] MEDS ORDERED: DEXTROSE PO PRN (15:33)
[2017-10-24] MEDS ORDERED: Hydrocodone/APAP 5mg/325mg Tab GT PRN (15:33)
[2017-10-24 16:21] LABS: ANION GAP 19.9 (7.0-16.0); BUN - UREA NITROGEN 57 mg/dL (7-25); CALCIUM SERUM 11.1 mg/dL (8.6-10.3); CARBON DIOXIDE 13.1 mEq/L (21.0-31.0); CHLORIDE 113 mEq/L (98-107); CREATININE - SERUM 1.4 mg/dL (0.7-1.3); GFR AFRICAN-AMERICAN > 60.0 ml/min (>90); GFR NON AFRICAN-AMERICAN 54.9 ml/min; GLUCOSE 75 mg/dL (70-105); SODIUM SERUM 141 mEq/L (136-145)
[2017-10-24] MEDS ORDERED: Albuterol Nebulizer 2.5mg/3mL HHN PRN (16:55)
[2017-10-24] MEDS ORDERED: MICONAZOLE NITRATE 2% TP SCH (17:00)
[2017-10-24] MEDS ORDERED: HYDROPHIL PETROLAT TP SCH (17:00)
[2017-10-24] MEDS ORDERED: ESLICARBAZEPINE ACETATE 600 MG PO SCH (17:00)
[2017-10-24] MEDS ORDERED: CLOBAZAM PO SCH (17:00)
[2017-10-24] MEDS ORDERED: Non-Formulary Item 1 EA (Nystatin [Nystatin] 1 EACH) MC SCH (17:00)
[2017-10-24] MEDS ORDERED: [UNRECOGNIZED DRUG - OTHER] TP SCH (17:00)
[2017-10-24] MEDS: D5-0.45NS 1,000 ML IV SCH (18:11)
[2017-10-24] MEDS: Lactobacillus Rhamnosus GG 15 Billion CFU CAP.SPRINK PO SCH (18:12)
[2017-10-24] MEDS: Benztropine 1 MG TAB PO SCH (18:12)
[2017-10-24] MEDS: Saline 0.65% Nasal Spray NS SCH ×2 (18:13→21:50)
[2017-10-24] MEDS: Fluconazole 200mg/100mL 200 MG/100 ML BAG IV SCH (18:14)
[2017-10-24] MEDS: Albuterol/Ipratropium Neb 3 ML AERS HHN SCH (18:31)
--- NOTE | 2017-10-24 20:22 | History & Physical ---
ADMIT DATE: 10/24/2017 CHIEF COMPLAINT: Not feeling well. HISTORY OF PRESENT ILLNESS: This is a 62-year-old male with history of mental retardation, cerebral palsy, seizure, recent colectomy with ileostomy, generalized contractures, admitted from nursing facility secondary to not looking close to normal, not feeling well, complaining the patient was very agitated. The patient was brought into the ER and noted to have a urinary tract infection. PAST MEDICAL HISTORY: As mentioned in history of present illness. PAST SURGICAL HISTORY: Recent colectomy and ileostomy. ALLERGIES: DEPAKOTE, FLUOXETINE, MAGNESIUM HYDROXIDE, REGLAN, AND ZOFRAN. MEDICATIONS: The patient is on Diflucan, alendronate, biotin, calcium, chlorhexidine, loratadine, lorazepam, Tylenol, Cogentin, clonazepam, finasteride, Flonase, folic acid, ibuprofen, and [place], lactulose, Lamictal, albuterol, Synthroid, methotrexate, miconazole, multivitamin, and rifaximin. FAMILY HISTORY: Noncontributory. SOCIAL HISTORY: The patient is a alf patient, requiring 24-hour total care. REVIEW OF SYSTEMS: This is limited secondary to the patient's current mental state. We will try to obtain more detailed review of systems at a later date by talking to the family members. ____ obtained, there is a family member, Bertrand Lam, number is [phone]. Also tried to get more information from the nursing staff. PHYSICAL EXAMINATION: VITAL SIGNS: Blood pressure 107/75, respirations 16, pulse 75, temperature 98.6. GENERAL: Elderly male. Positive contracture. LUNGS: Equal breath sounds, few rhonchi. HEART: Regular rate and rhythm with systolic ejection murmur. ABDOMEN: Soft, globular. Positive ileostomy. EXTREMITIES: Positive contractures. LABORATORY DATA: WBC 12.8, hemoglobin 14, platelets 431. Sodium 141, potassium 5.0, BUN 37, creatinine 1.4. Blood sugar was 75. Albumin 4.2. UA, 100 WBC. UA showed yeast. ASSESSMENT AND PLAN: 1. Urinary tract infection. 2. Generalized weakness. 3. Leukocytosis. 4. Anemia. 5. Dehydration. 6. Renal insufficiency. 7. Mental retardation. 8. Cerebral palsy. 9. Seizure. 10. Status post colectomy with ileostomy. 11. Bedridden. 12. Contractures. We will continue the patient on IV hydration. We will follow up a urine culture and C and S. We will include antifungal. We will monitor the ____. Continue with current care with follow consult and recommendations. Please see my orders. JOB# [id number]
[2017-10-24] MEDS: Lactulose 10 Gm/15 mL 30mL UDC PO SCH (21:49)
--- NOTE | 2017-10-25 02:59 | ER Physician Documentation ---
DATE OF SERVICE: 10/24/2017 EMERGENCY ROOM EVALUATION AND TREATMENT HISTORY OF PRESENT ILLNESS: The patient was in the past admitted on 09/05/2017, was discharged on 09/09/2017, today is 10/24/2017. The patient was sent by Dr. Rick in this hospital because the patient had loss of consciousness and the patient has history of bowel resection and the patient does not speak and the patient has a history of mental retardation. The patient had developmental delay, cerebral palsy, seizure disorder, generalized contractures with recent history of urinary tract infection with multiple drug-resistant organisms. The patient was given 1 week of Cipro and the cultures came back with multidrug-resistant organisms. The IV was changed to IV Rocephin. The patient did not improve and all this history is taken from the previous records from the chart. HOSPITAL COURSE: The patient was admitted to the med-surg unit. IV fluid was given. The patient had constipation. The patient needed surgery and the patient also had got colostomy, G-tube, and a Suggs catheter. Suggs catheter is draining clear urine. It was decided that the time has come that the patient to be discharged, so the patient was discharged for home. Gastroenterology consultation was done by Dr. Vila. Let me see what his notes are going to say. His notes said that the white count was very much elevated to 22,600, hemoglobin 13.6, hematocrit 40.3, and platelets 309. Electrolytes; 132, potassium 3.8, chloride 101, CO2 of 25.1, BUN 11, creatinine 0.4. The patient had high white count with 6% bands, consistent with infection. The blood gases were also done at that time showing pH of 7.41, pCO2 of 43, pO2 of 118, bicarbonate of 26.8, and electrolytes were found to be within normal limits. BUN, electrolytes, etc., were normal. Glucose was 126. The patient's vital signs were normal. The patient was given at that time Keppra 500 mg, 100 mL of ____, 400 mL an hour every 12 hours, multivitamin was given, piperacillin and Zosyn was given, Flagyl was given to the patient. The patient had ileostomy drainage on the right side of the abdomen, I do not see left side of the abdomen. The other medications that the patient was getting as per Dr. Vila's notes include Tylenol, albuterol, bisacodyl, enoxaparin, multivitamin, Zosyn, Flagyl, insulin, and nebulizer treatment. Please note that all this information is all from the old chart and nothing that the patient can let us know. At the time of Dr. Rick's history and physical, let us see if there is anything new. ____ examination of the head, abdomen was reviewed. The study correlated with the prior examination of 09/25/2017, demonstrates significant distention of the small and large loops throughout, though almost likely related to lytic ileus. IMPRESSION: Significant distention of the bowel loops throughout, dictated by Dr. Shon Washburn. This was done for fecal impaction. On 09/23/2017, I think Dr. Berumen had seen him in the Emergency Room and let us see why he saw him here. The patient had abdominal distention for past 2 days. No vomiting. Constipated, small amount of stools. He was admitted here on 09/11/2017, dehydration, urinary tract infection, fecal impaction. ALLERGIES: TO BUSPIRONE, DIVALPROEX, THAT IS DEPAKOTE, AND FLUOXETINE, MAGNESIUM HYDROXIDE, REGLAN WELL ONDANSETRON WERE ALL ALLERGIC TO ALL THESE MEDICATIONS. The patient was treated by Dr. Berumen. The patient had pneumonia at that time, fecal impaction, and I believe the patient was admitted also at the time. JUSTIFICATION OF ADMISSION: Because the patient had severe pain requiring acute inpatient management, identification of etiology that requires inpatient care. Absent bowel sounds with complete ileus, suspected toxic megacolon, severe electrolyte abnormalities, high fever. Appropriate outpatient observation ____ antibiotic, antimicrobial treatment unavailable, not effective and not feasible. Documented bacteremia. Temperature 104.9 and then other temperature of 103.1. The patient had signs of intestinal obstruction, hemodynamic instability. IV fluid replacement needed. Percutaneous or open drainage ____ biliary tract or parenteral nutrition regimen that must be implemented. Surgery needed, that cannot be performed on an ambulatory basis. Evaluation requires the patient to not eat or drink for extended period of time, more than 24 hours. So admission criteria were all met. Today morning, the patient was sent by Dr. Rick from [facility] because of pneumonia. The patient because of all the cerebral palsies, mental retardation, etc., is not speaking, does not talk, and he looks like his head is turned more to the left side. He has a left torticollis and no history of present illness. No 12-point review of systems, etc. could not be found. Whatever was told is already listed in what I gave it to you. Today's vital signs show temperature of 98 degrees, pulse of 83, respirations 17, blood pressure 118/76, oxygen saturation 97%. Height is 5 feet 10 inches, weight is 178. Medication list has been put in by the triage nurse. The patient's ____ was given orally to maintain skin integrity, shift skin to wheelchair arms as needed. Urine output to be calculated and at the time of seizures, the patient may need sharp magnet over VNS implant site on the left side of the chest when seizure is observed, may repeat after 6 to 7 until seizure stops. The patient had bilateral below-knee VARGAS hose while up in the chair, weekly weights need to be done. The patient is getting oxygen as needed. There were some labs that were done on 10/22/2017, which showed that the patient's urine was infected. Urine nitrite was positive 3+ and leukocyte esterase was present. Squamous epithelial cells were 6-10, many bacteria were seen, many yeasts were found. The patient has BUN of 48, creatinine 1.41, potassium was 5.2, this is as I mentioned was on 10/22/2017. White count was 14.4, absolute neutrophil was 10,598. I am not sure whether this is right or whether this is a cluster of neutrophils that were counted. Vancomycin trough level was 15, which is within normal limits. White count was 9.18, hemoglobin 11.7, hematocrit 36.2, platelet count was 419. Electrolytes were normal. Glucose was within normal limits. Protein level was 5.6, albumin level was 3.2, so some protein-calorie malnutrition is seen. Urine culture showed couple of multidrug-resistant organism, Pseudomonas aeruginosa organism #1 and Enterococcus left renal cyst was the second one. Pseudomonas was sensitive to most of the antibiotics and Enterococcus was sensitive to erythromycin, vancomycin and linezolid, which is Zyvox. The patient improved on the medical treatment and was discharged for home today. The patient was examined. He was seen in bed #6. He does not talk. He has an ICD device on the left side. PHYSICAL EXAMINATION: The patient's head is towards the left side with left torticollis. The patient is contracted status, does not speak. He is in a semi-comatose situation, responds only to painful stimuli. No edema in the legs. No cyanosis. Pulses in the extremities are faint lower extremities or faint to absent. Central nervous system, the patient is contracted, does not move. Reflexes could not be checked very well. Plantars are irregular and seem to be not positive. Abdomen is soft, has a fresh midline surgical scar with colostomy tube on the right side and which according to the notes, he has ileostomy instead of colostomy. I ordered to clean this area with normal saline, apply zinc sulfate b.i.d. over an inch over the right thigh open area, right groin and scrotum area where this patient had some infection. Chest reveals has decreased air entry in both lungs with bilateral few scattered rales and rhonchi. Abdomen is otherwise soft without significant distention. Bowel sounds are very faint. Heart reveals normal heart sounds. Soft fourth heart sounds. Second heart sounds physiologically split. ICD device in place. Chest, a few crackles heard in both lung matos, otherwise decreased air entry in both lung matos. No definite bronchial breathing is noted. CVA, there is no tenderness. Urine is negative. Suggs catheter is in place draining clear urine. G-tube in place and ileostomy tube is in place. FINAL DIAGNOSES: The patient has acute loss of consciousness, decreased verbalization, history of bowel resection and ileostomy, G-tube placement, Suggs placement, multidrug-resistant organism in the urine with Pseudomonas aeruginosa as well as Enterococcus. The patient improved with the treatment. The patient also had prerenal azotemia, anemia of chronic disease. The patient has dehydration. The patient was given vancomycin at that time. Colostomy bag appears to be within normal limits. The patient also had cerebral palsy, left torticollis. Other diagnosis for completion of this note includes that the patient had urinary tract infection, dehydration, mental retardation, cerebral palsy, leukocytosis, hyponatremia, low albumin, protein-caloric malnutrition, seizure disorder, generalized contractures, developmental delay, mental retardation, and patient now looks like has torticollis present also. Plan is to get all the lab workup and workup of the patient to be done and then inform Dr. Rick, most likely the patient may need admission in the hospital and depending upon the previous antibiotic coverage, we will give him some antibiotics also. JOB# [id number]
[2017-10-25] MEDS: Levothyroxine 0.125 Mg Tab PO SCH (06:32)
[2017-10-25] MEDS: D5-0.45NS 1,000 ML IV SCH ×2 (07:25→17:34)
[2017-10-25] MEDS: Albuterol/Ipratropium Neb 3 ML AERS HHN SCH ×2 (07:58→19:46)
[2017-10-25 08:04] LABS: % BASOPHILS 0.2 % (0.0-2.0); % EOSINOPHILS 7.7 % (0.0-5.0); % LYMPHOCYTES 14.2 % (20.0-50.0); % MONOCYTES 8.4 % (2.0-10.0); % NEUTROPHILS 69.5 % (40.0-80.0); EOSINOPHILE ABSOLUTE 0.8 Th/cmm (0.1-0.4); HEMATOCRIT 38.9 % (41.0-60); HEMOGLOBIN 13.1 gm/dL (12-16); LYMPHOCYTE ABSOLUTE 1.5 Th/cmm (1.5-3.0); MEAN CELL VOLUME 95.5 fl (80-99); MEAN CORPUSCULAR HEMOGLOBIN 32.3 pg (26.0-30.0); MEAN CORPUSCULAR HGB CONC 33.8 pg (28.0-36.0); MEAN PLATELET VOLUME 7.5 fl; MONOCYTE ABSOLUTE 0.9 Th/cmm (0.3-1.0); NEUTROPHILE ABSOLUTE 7.1 Th/cmm (1.8-8.0); PLATELET COUNT 347 Th/cmm (150-400); RED BLOOD COUNT 4.07 Mil/cmm (4.30-5.70); RED CELL DISTRIBUTION WIDTH 13.9 % (11.5-20.0); WHITE BLOOD COUNT 10.3 Th/cmm (4.8-10.8)
[2017-10-25 08:18] LABS: ANION GAP 12.2 (7.0-16.0); BUN - UREA NITROGEN 54 mg/dL (7-25); CALCIUM SERUM 10.2 mg/dL (8.6-10.3); CARBON DIOXIDE 17.4 mEq/L (21.0-31.0); CHLORIDE 114 mEq/L (98-107); CREATININE - SERUM 1.2 mg/dL (0.7-1.3); GFR AFRICAN-AMERICAN > 60.0 ml/min (>90); GFR NON AFRICAN-AMERICAN > 60.0 ml/min; GLUCOSE 122 mg/dL (70-105); POTASSIUM SERUM 4.6 mEq/L (3.5-5.1); SODIUM SERUM 139 mEq/L (136-145)
[2017-10-25] MEDS: Lactulose 10 Gm/15 mL 30mL UDC PO SCH ×3 (09:31→22:28)
[2017-10-25] MEDS: Lactobacillus Rhamnosus GG 15 Billion CFU CAP.SPRINK PO SCH ×2 (09:32→16:36)
[2017-10-25] MEDS: Multivitamin w/ Minerals Tab PO SCH (09:32)
[2017-10-25] MEDS: Benztropine 1 MG TAB PO SCH ×2 (09:33→17:34)
[2017-10-25] MEDS: NYSTATIN 100000 UNITS/GM POWD TP SCH ×2 (09:33→16:36)
[2017-10-25] MEDS: Fluticasone Propionate 0.05mg/Actuation 16gm Nasal Spray NS SCH (09:33)
[2017-10-25] MEDS: Zinc Oxide Ointment 60 gm TP SCH (09:33)
[2017-10-25] MEDS: Saline 0.65% Nasal Spray NS SCH ×4 (09:33→22:27)
--- NOTE | 2017-10-25 11:57 | Internal Medicine Prog Note ---
Internal Medicine Subjective - Subjective Patient seen and examined:: with staff, chart reviewed Patient is:: awake, non-verbal, non-interactive, in bed, confused, congested Patient Complaints of:: congestion Per staff patient has:: no adverse event, no episodes of fall, agitated, tolerating meds Internal Medicine Objective - Results Result Diagrams: 10/25/17 07:55 10/25/17 07:55 Recent Labs: Laboratory Last Values WBC 10.3 Th/cmm (4.8-10.8) 10/25/17 07:55 RBC 4.07 Mil/cmm (4.30-5.70) L 10/25/17 07:55 Hgb 13.1 gm/dL (12-16) 10/25/17 07:55 Hct 38.9 % (41.0-60) L 10/25/17 07:55 MCV 95.5 fl (80-99) 10/25/17 07:55 MCH 32.3 pg (26.0-30.0) H 10/25/17 07:55 MCHC Differential 33.8 pg (28.0-36.0) 10/25/17 07:55 RDW 13.9 % (11.5-20.0) 10/25/17 07:55 Plt Count 347 Th/cmm (150-400) 10/25/17 07:55 MPV 7.5 fl 10/25/17 07:55 Neutrophils % 69.5 % (40.0-80.0) 10/25/17 07:55 Lymphocytes % 14.2 % (20.0-50.0) L 10/25/17 07:55 Monocytes % 8.4 % (2.0-10.0) 10/25/17 07:55 Eosinophils % 7.7 % (0.0-5.0) H 10/25/17 07:55 Basophils % 0.2 % (0.0-2.0) 10/25/17 07:55 Sodium 139 mEq/L (136-145) 10/25/17 07:55 Potassium 4.6 mEq/L (3.5-5.1) 10/25/17 07:55 Chloride 114 mEq/L (98-107) H 10/25/17 07:55 Carbon Dioxide 17.4 mEq/L (21.0-31.0) L 10/25/17 07:55 Anion Gap 12.2 (7.0-16.0) 10/25/17 07:55 BUN 54 mg/dL (7-25) H 10/25/17 07:55 Creatinine 1.2 mg/dL (0.7-1.3) 10/25/17 07:55 Est GFR ( Amer) > 60.0 ml/min (>90) 10/25/17 07:55 Est GFR (Non-Af Amer) > 60.0 ml/min 10/25/17 07:55 BUN/Creatinine Ratio 45.0 10/25/17 07:55 Glucose 122 mg/dL (70-105) H 10/25/17 07:55 Whole Bld Lactic Acid 0.60 mmol/L (0.60-1.99) 10/24/17 12:43 Calcium 10.2 mg/dL (8.6-10.3) 10/25/17 07:55 Magnesium 2.4 mg/dL (1.9-2.7) 10/24/17 12:13 Total Bilirubin 0.2 mg/dL (0.3-1.0) L 10/24/17 12:43 Direct Bilirubin 0.05 mg/dL (0.0-0.2) 10/24/17 12:43 AST 16 U/L (13-39) 10/24/17 12:43 ALT 15 U/L (7-52) 10/24/17 12:43 Alkaline Phosphatase 95 U/L (34-104) 10/24/17 12:43 Troponin I < 0.01 ng/mL (0.01-0.05) L 10/24/17 12:43 B-Natriuretic Peptide 8.7 pg/mL (5.0-100.0) 10/24/17 12:43 Total Protein 7.6 gm/dL (6.0-8.3) 10/24/17 12:43 Albumin 4.2 gm/dL (4.2-5.5) 10/24/17 12:43 Globulin 3.4 gm/dL 10/24/17 12:43 Albumin/Globulin Ratio 1.2 (1.0-1.8) 10/24/17 12:43 Amylase 83 U/L (29-103) 10/24/17 12:43 Lipase 63 U/L (11-82) 10/24/17 12:12 Urine Source [place] 10/24/17 12:30 Urine Color YELLOW 10/24/17 12:30 Urine Clarity HAZY (CLEAR) 10/24/17 12:30 Urine pH 6.0 (4.6 - 8.0) 10/24/17 12:30 Ur Specific [place] 1.020 (1.005-1.030) 10/24/17 12:30 Urine Protein 30 mg/dL (NEGATIVE) H 10/24/17 12:30 Urine Glucose (UA) NEGATIVE mg/dL (NEGATIVE) 10/24/17 12:30 Urine Ketones NEGATIVE mg/dL (NEGATIVE) 10/24/17 12:30 Urine Blood TRACE (NEGATIVE) 10/24/17 12:30 Urine Nitrate POSITIVE (NEGATIVE) H 10/24/17 12:30 Urine Bilirubin NEGATIVE (NEGATIVE) 10/24/17 12:30 Urine Urobilinogen 0.2 E.U./dL (0.2 - 1.0) 10/24/17 12:30 Ur Leukocyte Esterase LARGE (NEGATIVE) H 10/24/17 12:30 Urine RBC 2-5 /hpf (0-5) H 10/24/17 12:30 Urine WBC 50-100 /hpf (0-5) H 10/24/17 12:30 Ur Epithelial Cells OCCASIONAL /lpf (FEW) 10/24/17 12:30 Urine Bacteria FEW /hpf (NONE SEEN) 10/24/17 12:30 - Physical Exam Vitals and I&O: Vital Signs Temp 96.4 F 10/25/17 08:00 Pulse 67 10/25/17 08:00 Resp 16 10/25/17 08:00 BP 113/69 10/25/17 08:00 Pulse Ox 95 10/25/17 08:00 Intake & Output 10/24/17 10/25/17 10/25/17 18:59 06:59 18:59 Intake Total 1450.000 Output Total 1000 Balance 450.000 Weight (lbs) 80.739 kg 80.739 kg Intake: Intake, IV Amount 1150.000 Cefepime 1 gm In Dextrose 50 5% 50 ml @ 100 mls/hr IV Q12H [facility] Rx#:[id number] D5-0.45NS 1,000 ml @ 80 1000.000 mls/hr IV .[id number] [facility] Rx #:[id number] Fluconazole 200mg/100mL 100 200 mg In 100 ml @ 100 mls/hr IV Q24HR [facility] Rx#: [id number] Other 300 Output: Urine 950 Stool 50 Other: # Bowel Movements 0 Stool Characteristics Soft Liquid Weight Source Bedscale Active Medications: Current Medications Acetaminophen (Tylenol) 650 mg PO Q6H PRN PRN Reason: PAIN OR FEVER >100 Acetaminophen/Hydrocodone Bitart ([place] 5mg/325mg) 1 tab GT Q6H PRN PRN Reason: PAIN Stop: 12/23/17 15:32 Albuterol Sulfate (Albuterol 2.5mg/3ml Neb Ud) 2.5 mg HHN Q4H PRN PRN Reason: Shortness of Breath Stop: 12/23/17 16:54 Albuterol/Ipratropium (Duoneb Neb) 3 ml HHN BIDRT CHANDAN Stop: 12/23/17 18:59 Last Admin: 10/25/17 07:58 Dose: 3 ml Benztropine Mesylate (Cogentin) 1 mg PO BID CHADNAN Stop: 12/23/17 16:59 Last Admin: 10/25/17 09:33 Dose: 1 mg Brimonidine Tartrate (Alphagan 0.2% Oph Soln) 1 drop EACH EYE BID CHANDAN Stop: 12/23/17 16:59 Last Admin: 10/25/17 09:33 Dose: 1 drop Clonazepam (Klonopin) 1 mg PO BID [facility] Stop: 12/23/17 16:59 Escitalopram Oxalate (Lexapro) 20 mg PO DAILY CHANDAN PRN Reason: Protocol Stop: 12/24/17 08:59 Finasteride (Proscar) 5 mg PO DAILY CHANDAN PRN Reason: Protocol Stop: 12/24/17 08:59 Last Admin: 10/25/17 09:33 Dose: 5 mg Fluticasone Propionate (Flonase) 2 spr NS DAILY CHANDAN Stop: 12/24/17 08:59 Last Admin: 10/25/17 09:33 Dose: 2 spr Folic Acid (Folate) 1 mg PO DAILY CHANDAN Stop: 12/24/17 08:59 Last Admin: 10/25/17 09:32 Dose: 1 mg Guaifenesin/Dextromethorphan (Robitussin Dm) 10 ml PO Q4H PRN PRN Reason: Cough Stop: 12/23/17 15:32 Hydrocortisone (Hydrocortisone 1%) 1 appl TP BID PRN PRN Reason: Rash Stop: 12/23/17 15:32 Cefepime HCl 1 gm/ Dextrose 50 mls @ 100 mls/hr IV Q12H CHANDAN Stop: 12/23/17 17:59 Last Admin: 10/25/17 05:53 Dose: 100 mls/hr Dextrose/Sodium Chloride (D5-0.45ns) 1,000 mls @ 80 mls/hr IV .[id number] CHANDAN Stop: 12/23/17 15:44 Last Admin: 10/25/17 07:25 Dose: 80 mls/hr Fluconazole (Diflucan) 200 mg in 100 mls @ 100 mls/hr IV Q24HR CHANDAN Stop: 12/23/17 17:59 Last Infusion: 10/24/17 19:55 Dose: Infused Ibuprofen (Motrin) 600 mg PO Q6H PRN PRN Reason: Pain (Mild) Stop: 12/23/17 15:32 Lactobacillus Rhamnosus (Culturelle 15b) 1 each PO BID CHANDAN Stop: 12/23/17 16:59 Last Admin: 10/25/17 09:32 Dose: 1 each Lactulose (Cephulac) 20 gm PO TID CHANDAN Stop: 12/23/17 20:59 Last Admin: 10/25/17 09:31 Dose: 20 gm Lamotrigine (Lamictal) 200 mg PO DAILY@0700 CHANDAN Stop: 12/24/17 06:59 Last Admin: 10/25/17 06:11 Dose: 200 mg Lamotrigine (Lamictal) 350 mg PO DAILY@1700 CHADNAN Stop: 12/24/17 16:59 Latanoprost (Xalatan 0.005% Ophth Soln) 1 drop EACH EYE HS CHANDAN Stop: 12/23/17 20:59 Last Admin: 10/24/17 21:50 Dose: 1 drop Levetiracetam (Keppra) 1,000 mg PO BID CHANDAN Stop: 12/23/17 16:59 Last Admin: 10/25/17 09:31 Dose: 1,000 mg Levothyroxine Sodium (Synthroid) 0.125 mg PO QDAC CHANDAN Stop: 12/24/17 07:29 Last Admin: 10/25/17 06:32 Dose: 0.125 mg Loperamide HCl (Imodium) 4 mg PO PRN PRN PRN Reason: Loose Stools Last Admin: 10/24/17 18:12 Dose: 4 mg Lorazepam (Ativan) 1 mg PO BID PRN; Protocol PRN Reason: Agitation Stop: 12/23/17 15:32 Methotrexate (Methotrexate) 10 mg PO Tu CHANDAN PRN Reason: Protocol Stop: 12/27/17 08:59 Miscellaneous (Clobazam [Onfi]) 1 tab PO BID CHANDAN Stop: 12/23/17 16:59 Miscellaneous (Eslicarbazepine Acetate [Aptiom]) 600 mg PO 1700 CHANDAN Stop: 12/23/17 16:59 Nystatin (Nystop) 1 units TP BID CHANDAN Stop: 12/24/17 08:59 Last Admin: 10/25/17 09:33 Dose: 1 units Ondansetron HCl (Zofran) 4 mg IV Q8H PRN PRN Reason: Nausea / Vomiting Stop: 12/23/17 15:35 Petrolatum (Zinc Oxide) 1 appl TP DAILY CHANDAN Stop: 12/24/17 08:59 Last Admin: 10/25/17 09:33 Dose: 1 appl Quetiapine Fumarate (Seroquel) 25 mg PO BID [facility] PRN Reason: Protocol Stop: 12/23/17 16:59 Last Admin: 10/25/17 09:32 Dose: 25 mg Rifaximin (Xifaxan) 600 mg PO BID CHANDAN Stop: 12/23/17 16:59 Last Admin: 10/25/17 09:32 Dose: 600 mg Simethicone (Mylicon) 80 mg PO ACHS CHANDAN Stop: 12/23/17 20:59 Last Admin: 10/25/17 06:34 Dose: 80 mg Sodium Chloride ([place]al [place]) 1 spr NS QID CHANDAN Stop: 12/23/17 16:59 Last Admin: 10/25/17 09:33 Dose: 1 spr Tamsulosin HCl (Flomax) 0.4 mg PO HS CHANDAN Stop: 12/23/17 20:59 Last Admin: 10/24/17 21:49 Dose: 0.4 mg General: lethargic, congested HEENT: NC/AT, PERRLA, thinning hair Neck: Supple, No JVD, No LAD Lungs: congested, rales, ronchi Cardiovascular: RRR, Normal S1, Normal S2 Abdomen: soft, non-tender, +GT, positive bowel sound Extremities: excoriation, ecchymosis, contracture, deformity Neurological: no change, lethargic, bedbound, spastic - Procedures Procedures: Procedures Procedure Code Date BYPASS ILEUM TO CUTANEOUS, OPEN APPROACH [id number] 09/23/17 ILEOSTOMY/JEJUNOSTOMY 54812 09/23/17 INSERTION OF ENDOTRACHEAL AIRWAY INTO TRACHEA, VIA OPENING [id number] 09/23/17 INSERTION OF FEEDING DEVICE INTO STOMACH, OPEN APPROACH [id number] 09/23/17 INTRODUCTION OF NUTRITIONAL INTO CENTRAL VEIN, PERC APPROACH [id number] 09/23/17 PARTIAL REMOVAL OF COLON 02030 09/23/17 PLACE GASTROSTOMY TUBE 50061 09/23/17 RELEASE PERITONEUM, OPEN APPROACH [id number] 09/23/17 RESECTION OF LARGE INTESTINE, OPEN APPROACH [id number] 09/23/17 RESPIRATORY VENTILATION, LESS THAN 24 CONSECUTIVE HOURS [id number] 09/23/17 Internal Medicine Assmt/Plan - Assessment Assessment: ASSESSMENT AND PLAN: 1. Urinary tract infection. 2. Generalized weakness. 3. Leukocytosis. 4. Anemia. 5. Dehydration. 6. Renal insufficiency. 7. Mental retardation. 8. Cerebral palsy. 9. Seizure. 10. Status post colectomy with ileostomy. 11. Bedridden. 12. Contractures. - Plan Plan: We will continue the patient on IV hydration. We will follow up a urine culture and C and S. We will include antifungal. We will monitor the _labs___. Continue with current care with follow consult and recommendations. Please see my orders.
[2017-10-25] MEDS: Fluconazole 200mg/100mL 200 MG/100 ML BAG IV SCH (17:35)
[2017-10-26 05:39] LABS: % BASOPHILS 0.9 % (0.0-2.0); % EOSINOPHILS 5.7 % (0.0-5.0); % LYMPHOCYTES 9.8 % (20.0-50.0); % MONOCYTES 7.9 % (2.0-10.0); % NEUTROPHILS 75.7 % (40.0-80.0); BASOPHILE ABSOLUTE 0.1 Th/cumm (0-0.2); EOSINOPHILE ABSOLUTE 0.9 Th/cmm (0.1-0.4); HEMATOCRIT 42.1 % (41.0-60); HEMOGLOBIN 14.2 gm/dL (12-16); LYMPHOCYTE ABSOLUTE 1.5 Th/cmm (1.5-3.0); MEAN CORPUSCULAR HGB CONC 33.6 pg (28.0-36.0); MEAN PLATELET VOLUME 7.9 fl; MONOCYTE ABSOLUTE 1.2 Th/cmm (0.3-1.0); NEUTROPHILE ABSOLUTE 11.4 Th/cmm (1.8-8.0); PLATELET COUNT 403 Th/cmm (150-400); RED BLOOD COUNT 4.43 Mil/cmm (4.30-5.70); RED CELL DISTRIBUTION WIDTH 14.1 % (11.5-20.0); WHITE BLOOD COUNT 15.1 Th/cmm (4.8-10.8)
[2017-10-26 06:08] LABS: ANION GAP 14.2 (7.0-16.0); BUN - UREA NITROGEN 47 mg/dL (7-25); CALCIUM SERUM 10.7 mg/dL (8.6-10.3); CARBON DIOXIDE 28.1 mEq/L (21.0-31.0); CHLORIDE 108 mEq/L (98-107); CREATININE - SERUM 1.2 mg/dL (0.7-1.3); GFR AFRICAN-AMERICAN > 60.0 ml/min (>90); GFR NON AFRICAN-AMERICAN > 60.0 ml/min; GLUCOSE 108 mg/dL (70-105); POTASSIUM SERUM 4.3 mEq/L (3.5-5.1); SODIUM SERUM 146 mEq/L (136-145)
[2017-10-26] MEDS: Levothyroxine 0.125 Mg Tab PO SCH (07:38)
[2017-10-26] MEDS: Albuterol/Ipratropium Neb 3 ML AERS HHN SCH ×2 (07:41→19:37)
[2017-10-26] MEDS: Zinc Oxide Ointment 60 gm TP SCH (09:16)
[2017-10-26] MEDS: Saline 0.65% Nasal Spray NS SCH ×4 (09:16→20:52)
[2017-10-26] MEDS: Fluticasone Propionate 0.05mg/Actuation 16gm Nasal Spray NS SCH (09:16)
[2017-10-26] MEDS: Lactobacillus Rhamnosus GG 15 Billion CFU CAP.SPRINK PO SCH ×2 (09:57→16:27)
[2017-10-26] MEDS: Benztropine 1 MG TAB PO SCH ×2 (09:57→16:27)
[2017-10-26] MEDS: Multivitamin w/ Minerals Tab PO SCH (09:58)
[2017-10-26] MEDS: Lactulose 10 Gm/15 mL 30mL UDC PO SCH ×3 (09:58→20:53)
--- NOTE | 2017-10-26 10:13 | Diagnostic Imaging Report ---
KUB single view HISTORY: Abdominal pain vomiting. COMPARISON: [facility] on 10/24/2017 FINDINGS: There is gaseous distention of the stomach. Percutaneous feeding tube noted. Postsurgical changes are noted. IMPRESSION: Gaseous distended stomach. There is generalized paucity of gas distally. The significance of this finding should be correlated clinically. If necessary CT abdomen and pelvis may also be obtained.
[2017-10-26] MEDS ORDERED: Diatrizoate Meglumine/Diatri 30 mL Sol PO ONE (10:57)
--- NOTE | 2017-10-26 12:01 | Internal Medicine Prog Note ---
Internal Medicine Subjective - Subjective Patient seen and examined:: with staff, chart reviewed Patient is:: awake, non-verbal, non-interactive, in bed, confused, congested Patient Complaints of:: congestion Per staff patient has:: no adverse event, no episodes of fall, agitated, tolerating meds Internal Medicine Objective - Results Result Diagrams: 10/26/17 04:45 10/26/17 04:45 Recent Labs: Laboratory Last Values WBC 15.1 Th/cmm (4.8-10.8) H 10/26/17 04:45 RBC 4.43 Mil/cmm (4.30-5.70) 10/26/17 04:45 Hgb 14.2 gm/dL (12-16) 10/26/17 04:45 Hct 42.1 % (41.0-60) 10/26/17 04:45 MCV 95.0 fl (80-99) 10/26/17 04:45 MCH 32.0 pg (26.0-30.0) H 10/26/17 04:45 MCHC Differential 33.6 pg (28.0-36.0) 10/26/17 04:45 RDW 14.1 % (11.5-20.0) 10/26/17 04:45 Plt Count 403 Th/cmm (150-400) H 10/26/17 04:45 MPV 7.9 fl 10/26/17 04:45 Neutrophils % 75.7 % (40.0-80.0) 10/26/17 04:45 Lymphocytes % 9.8 % (20.0-50.0) L 10/26/17 04:45 Monocytes % 7.9 % (2.0-10.0) 10/26/17 04:45 Eosinophils % 5.7 % (0.0-5.0) H 10/26/17 04:45 Basophils % 0.9 % (0.0-2.0) 10/26/17 04:45 Sodium 146 mEq/L (136-145) H 10/26/17 04:45 Potassium 4.3 mEq/L (3.5-5.1) 10/26/17 04:45 Chloride 108 mEq/L (98-107) H 10/26/17 04:45 Carbon Dioxide 28.1 mEq/L (21.0-31.0) 10/26/17 04:45 Anion Gap 14.2 (7.0-16.0) 10/26/17 04:45 BUN 47 mg/dL (7-25) H 10/26/17 04:45 Creatinine 1.2 mg/dL (0.7-1.3) 10/26/17 04:45 Est GFR ( Amer) > 60.0 ml/min (>90) 10/26/17 04:45 Est GFR (Non-Af Amer) > 60.0 ml/min 10/26/17 04:45 BUN/Creatinine Ratio 39.2 10/26/17 04:45 Glucose 108 mg/dL (70-105) H 10/26/17 04:45 Whole Bld Lactic Acid 0.60 mmol/L (0.60-1.99) 10/24/17 12:43 Calcium 10.7 mg/dL (8.6-10.3) H 10/26/17 04:45 Magnesium 2.4 mg/dL (1.9-2.7) 10/24/17 12:13 Total Bilirubin 0.2 mg/dL (0.3-1.0) L 10/24/17 12:43 Direct Bilirubin 0.05 mg/dL (0.0-0.2) 10/24/17 12:43 AST 16 U/L (13-39) 10/24/17 12:43 ALT 15 U/L (7-52) 10/24/17 12:43 Alkaline Phosphatase 95 U/L (34-104) 10/24/17 12:43 Ammonia 53 umol/L (16-53) 10/26/17 04:45 Troponin I < 0.01 ng/mL (0.01-0.05) L 10/24/17 12:43 B-Natriuretic Peptide 16.8 pg/mL (5.0-100.0) 10/26/17 04:45 Total Protein 7.6 gm/dL (6.0-8.3) 10/24/17 12:43 Albumin 4.2 gm/dL (4.2-5.5) 10/24/17 12:43 Globulin 3.4 gm/dL 10/24/17 12:43 Albumin/Globulin Ratio 1.2 (1.0-1.8) 10/24/17 12:43 Amylase 83 U/L (29-103) 10/24/17 12:43 Lipase 63 U/L (11-82) 10/24/17 12:12 Urine Source [place] 10/24/17 12:30 Urine Color YELLOW 10/24/17 12:30 Urine Clarity HAZY (CLEAR) 10/24/17 12:30 Urine pH 6.0 (4.6 - 8.0) 10/24/17 12:30 Ur Specific [place] 1.020 (1.005-1.030) 10/24/17 12:30 Urine Protein 30 mg/dL (NEGATIVE) H 10/24/17 12:30 Urine Glucose (UA) NEGATIVE mg/dL (NEGATIVE) 10/24/17 12:30 Urine Ketones NEGATIVE mg/dL (NEGATIVE) 10/24/17 12:30 Urine Blood TRACE (NEGATIVE) 10/24/17 12:30 Urine Nitrate POSITIVE (NEGATIVE) H 10/24/17 12:30 Urine Bilirubin NEGATIVE (NEGATIVE) 10/24/17 12:30 Urine Urobilinogen 0.2 E.U./dL (0.2 - 1.0) 10/24/17 12:30 Ur Leukocyte Esterase LARGE (NEGATIVE) H 10/24/17 12:30 Urine RBC 2-5 /hpf (0-5) H 10/24/17 12:30 Urine WBC 50-100 /hpf (0-5) H 10/24/17 12:30 Ur Epithelial Cells OCCASIONAL /lpf (FEW) 10/24/17 12:30 Urine Bacteria FEW /hpf (NONE SEEN) 10/24/17 12:30 - Physical Exam Vitals and I&O: Vital Signs Temp 96.4 F 10/26/17 08:00 Pulse 72 10/26/17 08:00 Resp 18 10/26/17 08:00 BP 143/86 10/26/17 08:00 Pulse Ox 99 10/26/17 08:00 Intake & Output 10/25/17 10/26/17 10/26/17 18:59 06:59 18:59 Intake Total 1842 150 Output Total 650 300 Balance 1192 -150 Weight (lbs) 80.881 kg 75.342 kg Intake: Intake, IV Amount 962 Cefepime 1 gm In Dextrose 50 5% 50 ml @ 100 mls/hr IV Q12H [facility] Rx#:[id number] D5-0.45NS 1,000 ml @ 80 812 mls/hr IV .[id number] [facility] Rx #:[id number] Fluconazole 200mg/100mL 100 200 mg In 100 ml @ 100 mls/hr IV Q24HR [facility] Rx#: [id number] Tube Feeding 580 Other 300 150 Output: Urine 425 300 Stool 225 Other: # Bowel Movements 0 Stool Characteristics Liquid Liquid Liquid Brown Brown Green Weight Source Bedscale Bedscale Active Medications: Current Medications Acetaminophen (Tylenol) 650 mg PO Q6H PRN PRN Reason: PAIN OR FEVER >100 Acetaminophen/Hydrocodone Bitart ([place] 5mg/325mg) 1 tab GT Q6H PRN PRN Reason: PAIN Stop: 12/23/17 15:32 Albuterol Sulfate (Albuterol 2.5mg/3ml Neb Ud) 2.5 mg HHN Q4H PRN PRN Reason: Shortness of Breath Stop: 12/23/17 16:54 Albuterol/Ipratropium (Duoneb Neb) 3 ml HHN BIDRT [facility] Stop: 12/23/17 18:59 Last Admin: 10/26/17 07:41 Dose: 3 ml Benztropine Mesylate (Cogentin) 1 mg PO BID [facility] Stop: 12/23/17 16:59 Last Admin: 10/26/17 09:57 Dose: Not Given Brimonidine Tartrate (Alphagan 0.2% Oph Soln) 1 drop EACH EYE BID [facility] Stop: 12/23/17 16:59 Last Admin: 10/26/17 09:16 Dose: 1 drop Clonazepam (Klonopin) 1 mg PO BID [facility] Stop: 12/23/17 16:59 Enoxaparin Sodium (Lovenox) 40 mg SUBQ DAILY [facility] Stop: 12/26/17 08:59 Escitalopram Oxalate (Lexapro) 20 mg PO DAILY [facility] PRN Reason: Protocol Stop: 12/24/17 08:59 Finasteride (Proscar) 5 mg PO DAILY [facility] PRN Reason: Protocol Stop: 12/24/17 08:59 Last Admin: 10/26/17 09:58 Dose: Not Given Fluticasone Propionate (Flonase) 2 spr NS DAILY [facility] Stop: 12/24/17 08:59 Last Admin: 10/26/17 09:16 Dose: 2 spr Folic Acid (Folate) 1 mg PO DAILY [facility] Stop: 12/24/17 08:59 Last Admin: 10/26/17 09:58 Dose: Not Given Guaifenesin/Dextromethorphan (Robitussin Dm) 10 ml PO Q4H PRN PRN Reason: Cough Stop: 12/23/17 15:32 Hydrocortisone (Hydrocortisone 1%) 1 appl TP BID PRN PRN Reason: Rash Stop: 12/23/17 15:32 Dextrose/Sodium Chloride (D5-0.45ns) 1,000 mls @ 80 mls/hr IV .[id number] [facility] Stop: 12/23/17 15:44 Last Admin: 10/25/17 17:34 Dose: 80 mls/hr Fluconazole (Diflucan) 200 mg in 100 mls @ 100 mls/hr IV Q24HR [facility] Stop: 12/23/17 17:59 Last Infusion: 10/25/17 18:35 Dose: Infused Meropenem 1 gm/ Sodium (Chloride) 100 mls @ 100 mls/hr IV Q12H [facility] Stop: 12/25/17 11:59 Ibuprofen (Motrin) 600 mg PO Q6H PRN PRN Reason: Pain (Mild) Stop: 12/23/17 15:32 Lactobacillus Rhamnosus (Culturelle 15b) 1 each PO BID [facility] Stop: 12/23/17 16:59 Last Admin: 10/26/17 09:57 Dose: Not Given Lactulose (Cephulac) 20 gm PO TID [facility] Stop: 12/23/17 20:59 Last Admin: 10/26/17 09:58 Dose: Not Given Lamotrigine (Lamictal) 200 mg PO DAILY@0700 [facility] Stop: 12/24/17 06:59 Last Admin: 10/26/17 07:37 Dose: Not Given Lamotrigine (Lamictal) 350 mg PO DAILY@1700 [facility] Stop: 12/24/17 16:59 Last Admin: 10/25/17 16:35 Dose: 350 mg Latanoprost (Xalatan 0.005% Ophth Soln) 1 drop EACH EYE HS [facility] Stop: 12/23/17 20:59 Last Admin: 10/25/17 22:28 Dose: 1 drop Levetiracetam (Keppra) 1,000 mg PO BID [facility] Stop: 12/23/17 16:59 Last Admin: 10/26/17 09:19 Dose: 1,000 mg Levothyroxine Sodium (Synthroid) 0.125 mg PO QDAC [facility] Stop: 12/24/17 07:29 Last Admin: 10/26/17 07:38 Dose: Not Given Loperamide HCl (Imodium) 4 mg PO PRN PRN PRN Reason: Loose Stools Last Admin: 10/24/17 18:12 Dose: 4 mg Lorazepam (Ativan) 1 mg PO BID PRN; Protocol PRN Reason: Agitation Stop: 12/23/17 15:32 Methotrexate (Methotrexate) 10 mg PO Tu [facility] PRN Reason: Protocol Stop: 12/27/17 08:59 Miscellaneous (Clobazam [Onfi]) 1 tab PO BID [facility] Stop: 12/23/17 16:59 Miscellaneous (Eslicarbazepine Acetate [Aptiom]) 600 mg PO 1700 [facility] Stop: 12/23/17 16:59 Nystatin (Nystop) 1 units TP BID [facility] Stop: 12/24/17 08:59 Last Admin: 10/25/17 16:36 Dose: 1 units Ondansetron HCl (Zofran) 4 mg IV Q8H PRN PRN Reason: Nausea / Vomiting Stop: 12/23/17 15:35 Last Admin: 10/26/17 07:35 Dose: 4 mg Petrolatum (Zinc Oxide) 1 appl TP DAILY [facility] Stop: 12/24/17 08:59 Last Admin: 10/26/17 09:16 Dose: 1 appl Quetiapine Fumarate (Seroquel) 25 mg PO BID [facility] PRN Reason: Protocol Stop: 12/23/17 16:59 Last Admin: 10/26/17 09:57 Dose: Not Given Rifaximin (Xifaxan) 600 mg PO BID [facility] Stop: 12/23/17 16:59 Last Admin: 10/26/17 09:58 Dose: Not Given Simethicone (Mylicon) 80 mg PO ACHS [facility] Stop: 12/23/17 20:59 Last Admin: 10/26/17 07:39 Dose: Not Given Sodium Chloride ([place] Nasal [place]) 1 spr NS QID [facility] Stop: 06/19/18 16:59 Last Admin: 10/26/17 09:16 Dose: 1 spr Tamsulosin HCl (Flomax) 0.4 mg PO HS [facility] Stop: 12/23/17 20:59 Last Admin: 10/25/17 22:28 Dose: 0.4 mg General: lethargic, congested HEENT: NC/AT, PERRLA, thinning hair Neck: Supple, No JVD, No LAD Lungs: congested, rales, ronchi Cardiovascular: RRR, Normal S1, Normal S2 Abdomen: soft, non-tender, +GT, positive bowel sound Extremities: excoriation, ecchymosis, contracture, deformity Neurological: no change, lethargic, bedbound, spastic - Procedures Procedures: Procedures Procedure Code Date BYPASS ILEUM TO CUTANEOUS, OPEN APPROACH [id number] 09/23/17 ILEOSTOMY/JEJUNOSTOMY 06751 09/23/17 INSERTION OF ENDOTRACHEAL AIRWAY INTO TRACHEA, VIA OPENING [id number] 09/23/17 INSERTION OF FEEDING DEVICE INTO STOMACH, OPEN APPROACH [id number] 09/23/17 INTRODUCTION OF NUTRITIONAL INTO CENTRAL VEIN, PERC APPROACH [id number] 09/23/17 PARTIAL REMOVAL OF COLON 49421 09/23/[address] PL[address] GASTROSTOMY TUBE 15593 09/23/17 RELEASE PERITONEUM, OPEN APPROACH [id number] 09/23/17 RESECTION OF LARGE INTESTINE, OPEN APPROACH [id number] 09/23/17 RESPIRATORY VENTILATION, LESS THAN 24 CONSECUTIVE HOURS [id number] 09/23/17 Internal Medicine Assmt/Plan - Assessment Assessment: ASSESSMENT AND PLAN: 1. Urinary tract infection. 2. Generalized weakness. 3. Leukocytosis. 4. Anemia. 5. Dehydration. 6. Renal insufficiency. 7. Mental retardation. 8. Cerebral palsy. 9. Seizure. 10. Status post colectomy with ileostomy. 11. Bedridden. 12. Contractures. vomitting - Plan Plan: We will continue the patient on IV hydration. We will follow up a urine culture and C and S. We will include antifungal. We will monitor the _labs___. Continue with current care with follow consult and recommendations. Please see my orders. for ct abd and pelvis Nutritional Asmnt/Malnutr-PDOC - Dietary Evaluation Malnutrition Findings (Please click <Entered> for more info): Nutritional Asmnt/Malnutrition Start: 10/25/17 14: 50 Text: Status: Complete Freq: Document 04/21/18 14:50 WILLIAM (Rec: 10/25/17 15:10 MMULLESTER WEEKS- [id number]) Nutritional Asmnt/Malnutrition Patient General Information Nutritional Screening High Risk Diagnosis UTI (reason for visit) Pertinent Medical Hx/Surgical Hx mental retardation, cerebral palsy, seizure, recent colectomy with ileostomy, generalized contractures. Subjective Information Patient was admitted from SNF. Unable to interview due to patient's mental status. Per nursing notes, patient is tolerating tube feeding well. Current Diet Order/ Nutrition Support Peptamin AF 65 ml/hr (1560 ml volume, 1872 kcal, 118 gm protein) Patient / S.O Not Indicated Pertinent Medications abx, D5-0.45NS @ 80ml/hr, folate, culturelle, lactulose, synthroid, imodium, zofran, zinc oxide Pertinent Labs (10/25) nutrition related labs WNL Nutritional Hx/Data Height 1.78 m Height (Calculated Centimeters) 177.8 Current Weight (lbs) 80.739 kg Weight (Calculated Kilograms) 80.7 Weight (Calculated Grams) 96061.4 [place] Body Weight 166 % [place] Body Weight 107 Body Mass Index (BMI) 25.5 Recent Weight Change No Weight Status Overweight GI Symptoms Last BM Ileostomy present with liquid drainage Difficult in: Chewing Swallowing Food Allergies No Cultural/Ethnic/Congregation Belief None indicated Usual diet at home G tube feedings Skin Integrity/Comment: Alfredo 10, rash, discoloration on both lower legs, scar Estimated Nutritional Goals BEE in Kcals: Using Current wt Calories/Kcals/Kg 81kg CBW 22-27 kcal/kg Kcals Calculated ~1301-8522 kcal/day Protein: Using Current wt Protein g/k.1-1.3 gm/kg Protein Calculated ~90-105 gm/day Fluid: ml ~5061-6978 ml/day (25-30 ml/kg ) Nutritional Problem 1. Problem Problem No nutrition diagnosis at this time Intervention/Recommendation Comments 1. Consider decreasing tube feeding rate to 60ml/hr to adequately meet nutrient needs . 1440ml volume, 1728 kcal, 109 gm protein. Continue Peptamen as ordered as this is what patient tolerated at [facility] . Expected Outcomes/Goals Expected Outcomes/Goals patient meets >75% Of nutrient needs from nutrition support, nutrition related labs remain WNL, weight stable. F/U in 3-5 days as MR (10/28- )
[2017-10-26] MEDS: Meropenem 1 GM in Sodium Chloride 0.9% 100 ML IV SCH (15:11)
[2017-10-26] MEDS: NYSTATIN 100000 UNITS/GM POWD TP SCH ×2 (16:26→16:28)
[2017-10-26] MEDS: ERYTHROMYCIN 250 MG PO SCH (16:29)
[2017-10-26] MEDS: D5-0.45NS 1,000 ML IV SCH (18:16)
[2017-10-26] MEDS: Fluconazole 200mg/100mL 200 MG/100 ML BAG IV SCH (18:44)
[2017-10-27] MEDS: Meropenem 1 GM in Sodium Chloride 0.9% 100 ML IV SCH ×3 (00:53→23:50)
[2017-10-27 05:52] LABS: % BASOPHILS 0.4 % (0.0-2.0); % EOSINOPHILS 10.8 % (0.0-5.0); % LYMPHOCYTES 12.2 % (20.0-50.0); % MONOCYTES 10.4 % (2.0-10.0); % NEUTROPHILS 66.2 % (40.0-80.0); BASOPHILE ABSOLUTE 0.1 Th/cumm (0-0.2); EOSINOPHILE ABSOLUTE 1.4 Th/cmm (0.1-0.4); HEMATOCRIT 37.8 % (41.0-60); HEMOGLOBIN 12.7 gm/dL (12-16); LYMPHOCYTE ABSOLUTE 1.5 Th/cmm (1.5-3.0); MEAN CELL VOLUME 95.3 fl (80-99); MEAN CORPUSCULAR HGB CONC 33.6 pg (28.0-36.0); MEAN PLATELET VOLUME 7.8 fl; MONOCYTE ABSOLUTE 1.3 Th/cmm (0.3-1.0); NEUTROPHILE ABSOLUTE 8.2 Th/cmm (1.8-8.0); PLATELET COUNT 342 Th/cmm (150-400); RED BLOOD COUNT 3.97 Mil/cmm (4.30-5.70); RED CELL DISTRIBUTION WIDTH 14.1 % (11.5-20.0)
[2017-10-27 05:56] LABS: WHITE BLOOD COUNT 12.5 Th/cmm (4.8-10.8)
[2017-10-27 06:43] LABS: ALB/GLOB RATIO 1.1 (1.0-1.8); ALBUMIN 3.7 gm/dL (4.2-5.5); ALKALINE PHOSPHATASE 134 U/L (34-104); ANION GAP 11.3 (7.0-16.0); BILIRUBIN,TOTAL 0.4 mg/dL (0.3-1.0); BUN - UREA NITROGEN 43 mg/dL (7-25); CARBON DIOXIDE 29.6 mEq/L (21.0-31.0); CHLORIDE 109 mEq/L (98-107); CREATININE - SERUM 1.2 mg/dL (0.7-1.3); GFR AFRICAN-AMERICAN > 60.0 ml/min (>90); GFR NON AFRICAN-AMERICAN > 60.0 ml/min; GLUCOSE 106 mg/dL (70-105); POTASSIUM SERUM 3.9 mEq/L (3.5-5.1); SGOT 34 U/L (13-39); SGPT/ALT 30 U/L (7-52); SODIUM SERUM 146 mEq/L (136-145); TOTAL PROTEIN,SERUM 7.1 gm/dL (6.0-8.3)
[2017-10-27] MEDS: Albuterol/Ipratropium Neb 3 ML AERS HHN SCH ×2 (07:25→19:33)
--- NOTE | 2017-10-27 08:33 | Diagnostic Imaging Report ---
Exam: CT examination abdomen pelvis. HISTORY: Abnormal abdomen. Total DLP equals 773 CTDI equals 15.6 Findings: Multiple views of the section of the abdomen pelvis obtained at the plantar from a lower thorax to pubic symphysis without the administration of intravenous contrast material oral contrast was utilized. The study was correlated with the prior exam of 09/23/2017. The study demonstrates normal aeration of lung parenchyma the bases. The study is somewhat degraded by motion artifacts The liver parenchyma spleen are normal. The gallbladder is intact. The stomach distended with contrast material and air. Gastrostomy tube is noted. There is evidence of subcutaneous soft tissue emphysema in the left lower abdomen. Right lower quadrant colostomy is noted. Left kidney is atrophied. Right kidney is hypertrophied is noted. Postoperative changes are noted in the rectosigmoid junction. Urinary bladder contracted with a 4 catheter. Multiple compression fractures of lumbar spine appreciated most likely old in nature. Clinical correlation recommended. IMPRESSION: Subcutaneous soft tissue hematoma soft tissues of the left lower abdomen. Right lower quadrant colostomy opening. Contracted urinary bladder with a Suggs catheter Rectal wall thickening postoperative changes Multiple compression fracture of lumbar spine clinical correlation recommended
[2017-10-27] MEDS: Enoxaparin 40 mg/0.4 mL 0.4mL Syr SUBQ SCH (08:53)
[2017-10-27] MEDS: Levothyroxine 0.125 Mg Tab PO SCH (08:55)
[2017-10-27] MEDS: Benztropine 1 MG TAB PO SCH ×2 (08:58→16:56)
[2017-10-27] MEDS: Fluticasone Propionate 0.05mg/Actuation 16gm Nasal Spray NS SCH (08:59)
[2017-10-27] MEDS: Lactulose 10 Gm/15 mL 30mL UDC PO SCH ×3 (09:00→21:08)
[2017-10-27] MEDS: Multivitamin w/ Minerals Tab PO SCH (09:00)
[2017-10-27] MEDS: Lactobacillus Rhamnosus GG 15 Billion CFU CAP.SPRINK PO SCH ×2 (09:00→16:58)
[2017-10-27] MEDS: NYSTATIN 100000 UNITS/GM POWD TP SCH ×2 (09:00→16:59)
[2017-10-27] MEDS: Zinc Oxide Ointment 60 gm TP SCH (09:01)
[2017-10-27] MEDS: Saline 0.65% Nasal Spray NS SCH ×4 (09:01→21:17)
[2017-10-27] MEDS: ERYTHROMYCIN 250 MG PO SCH ×2 (09:23→16:58)
[2017-10-27] MEDS: D5-0.45NS 1,000 ML IV SCH (11:23)
[2017-10-27] MEDS ORDERED: HEPATITIS B VACCINE RECOMBIN 20 MCG/ML IM ONE (15:28)
[2017-10-27] MEDS: Fluconazole 200mg/100mL 200 MG/100 ML BAG IV SCH (17:08)
[2017-10-27 22:31] LABS: PROTHROMBIN TIME (TEST) 10.4 SECONDS (9.5-11.5)
--- NOTE | 2017-10-28 03:36 | Consultation ---
DATE OF CONSULTATION: 10/27/2017 TYPE OF CONSULTATION: Gastroenterology. REQUESTING PHYSICIAN: Dr. Zack Rick. REASON FOR CONSULTATION: Ileus. HISTORY OF PRESENT ILLNESS: A 62-year-old male with history of mental retardation, cerebral palsy, seizure disorder, recent total colectomy with ileostomy, diverting ileostomy, and generalized contractures admitted from long term on 10/24/2017, not feeling well. The patient was diagnosed with UTI. We were asked to evaluate the patient for a possible ileus. He had initial KUB that showed gaseously distended stomach with generalized paucity of gas distally. A subsequent CT of the abdomen and pelvis done yesterday showed subcutaneous soft tissue hematoma in the left lower abdomen, right lower quadrant colostomy opening, contractured urinary bladder with Suggs catheter, rectal wall thickening with postoperative changes, and multiple compression fractures of lumbar spine. The patient has been restarted on G-tube feedings at 20 mL an hour. PAST MEDICAL HISTORY: As above. MEDICATIONS: Here are Tylenol, [place], albuterol, ipratropium, Cogentin, Alphagan drops, Klonopin, IV fluids, Lovenox, erythromycin 250 mg per G-tube twice daily, Lexapro, Proscar, Diflucan, fluticasone, folic acid, Robitussin, hydrocortisone cream, Motrin p.r.n., Culturelle twice daily, lactulose 20 grams per G-tube 3 times a day, Lamictal, latanoprost drops, Keppra, Synthroid, Imodium, Ativan, meropenem, methotrexate, nystatin, Zofran, Seroquel, rifaximin twice daily, Mylicon, and Flomax. ALLERGIES: To Valproic acid, fluoxetine, magnesium, and also to Reglan and to Zofran. SOCIAL HISTORY: group home resident. No known tobacco, alcohol, or drugs. FAMILY HISTORY: Noncontributory. REVIEW OF SYSTEMS: A comprehensive 12-point review of systems conducted and is only positive for those signs and symptoms present in the history of present illness. PHYSICAL EXAMINATION: VITAL SIGNS: Temperature 97.6, blood pressure 106/67, pulse is 90, respirations 18, and O2 sat 100%. GENERAL: The patient is well-developed and chronically ill-appearing male who is in no acute distress, essentially nonverbal. HEENT: Sclerae nonicteric. Oropharynx clear. CARDIOVASCULAR: Regular rate and rhythm. LUNGS: Clear to auscultation bilaterally. ABDOMEN: Soft, nontender, and nondistended. Intact G-tube in epigastrium and also intact right lower quadrant ileostomy. EXTREMITIES: Contractured, no edema. RECTAL: Deferred. LABORATORY DATA AND IMAGING: WBC 12.5, hemoglobin 12.7, and platelet count 342. Creatinine 1.2. Liver enzymes are normal except for alkaline phosphatase mildly elevated to 134. Liver enzymes are normal. Lipase normal. Urinalysis shows positive nitrites and 50-100 WBCs. IMPRESSION: 1. Probable ileus and/or gastroparesis, likely from possible urinary sepsis. 2. Urinary tract infection and leukocytosis, now improved. 3. Dysphagia with G-tube insertion. 4. History of chronic constipation, requiring a total colectomy, diverting ileostomy, and right-sided colostomy. 5. Mental retardation, cerebral palsy, and seizure disorder. RECOMMENDATIONS: 1. The patient is allergic to Reglan and Zofran. Therefore, promotility agent such as erythromycin will be titrated to effect as tolerated. 2. Titrate up G-tube feedings as tolerated. 3. Laxatives such as MiraLax and/or milk of magnesia and lactulose to be titrated to effect as tolerated and/or as needed. 4. Serial KUB checks as needed. Thank you, Dr. Zack Rick for involving us in the care of your patient. If you have any further questions, please call us. JOB# [id number]
[2017-10-28] MEDS: Albuterol/Ipratropium Neb 3 ML AERS HHN SCH (07:25)
[2017-10-28] MEDS: Lactobacillus Rhamnosus GG 15 Billion CFU CAP.SPRINK PO SCH (08:37)
[2017-10-28] MEDS: Benztropine 1 MG TAB PO SCH (08:37)
[2017-10-28] MEDS: Multivitamin w/ Minerals Tab PO SCH (08:37)
[2017-10-28] MEDS: Levothyroxine 0.125 Mg Tab PO SCH (08:38)
[2017-10-28] MEDS: ERYTHROMYCIN 250 MG PO SCH (08:38)
[2017-10-28] MEDS: Lactulose 10 Gm/15 mL 30mL UDC PO SCH (08:38)
[2017-10-28] MEDS: Saline 0.65% Nasal Spray NS SCH (08:39)
[2017-10-28] MEDS: Zinc Oxide Ointment 60 gm TP SCH (08:39)
[2017-10-28] MEDS: NYSTATIN 100000 UNITS/GM POWD TP SCH (08:39)
[2017-10-28] MEDS: Fluticasone Propionate 0.05mg/Actuation 16gm Nasal Spray NS SCH (08:40)
[2017-10-28] MEDS: Enoxaparin 40 mg/0.4 mL 0.4mL Syr SUBQ SCH (08:40)
--- NOTE | 2017-10-28 11:12 | Internal Medicine Prog Note ---
Internal Medicine Subjective - Subjective Service Date: 10/28/17 ([id number] dc summary dictated) Patient is:: awake, non-verbal, non-interactive, in bed, confused, congested Patient Complaints of:: congestion Per staff patient has:: no adverse event, no episodes of fall, agitated, tolerating meds Internal Medicine Objective - Results Result Diagrams: 10/27/17 05:00 10/27/17 05:00 Recent Labs: Laboratory Last Values WBC 12.5 Th/cmm (4.8-10.8) H 10/27/17 05:00 RBC 3.97 Mil/cmm (4.30-5.70) L 10/27/17 05:00 Hgb 12.7 gm/dL (12-16) 10/27/17 05:00 Hct 37.8 % (41.0-60) L 10/27/17 05:00 MCV 95.3 fl (80-99) 10/27/17 05:00 MCH 32.0 pg (26.0-30.0) H 10/27/17 05:00 MCHC Differential 33.6 pg (28.0-36.0) 10/27/17 05:00 RDW 14.1 % (11.5-20.0) 10/27/17 05:00 Plt Count 342 Th/cmm (150-400) 10/27/17 05:00 MPV 7.8 fl 10/27/17 05:00 Neutrophils % 66.2 % (40.0-80.0) 10/27/17 05:00 Lymphocytes % 12.2 % (20.0-50.0) L 10/27/17 05:00 Monocytes % 10.4 % (2.0-10.0) H 10/27/17 05:00 Eosinophils % 10.8 % (0.0-5.0) H 10/27/17 05:00 Basophils % 0.4 % (0.0-2.0) 10/27/17 05:00 PT 10.4 SECONDS (9.5-11.5) 10/27/17 22:05 INR 1.00 (0.5-1.4) 10/27/17 22:05 PTT (Actin FS) 25.4 SECONDS (26.0-38.0) L 10/27/17 22:05 Sodium 146 mEq/L (136-145) H 10/27/17 05:00 Potassium 3.9 mEq/L (3.5-5.1) 10/27/17 05:00 Chloride 109 mEq/L (98-107) H 10/27/17 05:00 Carbon Dioxide 29.6 mEq/L (21.0-31.0) 10/27/17 05:00 Anion Gap 11.3 (7.0-16.0) 10/27/17 05:00 BUN 43 mg/dL (7-25) H 10/27/17 05:00 Creatinine 1.2 mg/dL (0.7-1.3) 10/27/17 05:00 Est GFR ( Amer) > 60.0 ml/min (>90) 10/27/17 05:00 Est GFR (Non-Af Amer) > 60.0 ml/min 10/27/17 05:00 BUN/Creatinine Ratio 35.8 10/27/17 05:00 Glucose 106 mg/dL (70-105) H 10/27/17 05:00 Whole Bld Lactic Acid 0.60 mmol/L (0.60-1.99) 10/24/17 12:43 Calcium 10.0 mg/dL (8.6-10.3) 10/27/17 05:00 Magnesium 2.4 mg/dL (1.9-2.7) 10/24/17 12:13 Total Bilirubin 0.4 mg/dL (0.3-1.0) 10/27/17 05:00 Direct Bilirubin 0.05 mg/dL (0.0-0.2) 10/24/17 12:43 AST 34 U/L (13-39) 10/27/17 05:00 ALT 30 U/L (7-52) 10/27/17 05:00 Alkaline Phosphatase 134 U/L (34-104) H 10/27/17 05:00 Ammonia 53 umol/L (16-53) 10/26/17 04:45 Troponin I < 0.01 ng/mL (0.01-0.05) L 10/24/17 12:43 B-Natriuretic Peptide 16.8 pg/mL (5.0-100.0) 10/26/17 04:45 Total Protein 7.1 gm/dL (6.0-8.3) 10/27/17 05:00 Albumin 3.7 gm/dL (4.2-5.5) L 10/27/17 05:00 Globulin 3.4 gm/dL 10/27/17 05:00 Albumin/Globulin Ratio 1.1 (1.0-1.8) 10/27/17 05:00 Amylase 83 U/L (29-103) 10/24/17 12:43 Lipase 63 U/L (11-82) 10/24/17 12:12 Urine Source [place] 10/24/17 12:30 Urine Color YELLOW 10/24/17 12:30 Urine Clarity HAZY (CLEAR) 10/24/17 12:30 Urine pH 6.0 (4.6 - 8.0) 10/24/17 12:30 Ur Specific Maxwell 1.020 (1.005-1.030) 10/24/17 12:30 Urine Protein 30 mg/dL (NEGATIVE) H 10/24/17 12:30 Urine Glucose (UA) NEGATIVE mg/dL (NEGATIVE) 10/24/17 12:30 Urine Ketones NEGATIVE mg/dL (NEGATIVE) 10/24/17 12:30 Urine Blood TRACE (NEGATIVE) 10/24/17 12:30 Urine Nitrate POSITIVE (NEGATIVE) H 10/24/17 12:30 Urine Bilirubin NEGATIVE (NEGATIVE) 10/24/17 12:30 Urine Urobilinogen 0.2 E.U./dL (0.2 - 1.0) 10/24/17 12:30 Ur Leukocyte Esterase LARGE (NEGATIVE) H 10/24/17 12:30 Urine RBC 2-5 /hpf (0-5) H 10/24/17 12:30 Urine WBC 50-100 /hpf (0-5) H 10/24/17 12:30 Ur Epithelial Cells OCCASIONAL /lpf (FEW) 10/24/17 12:30 Urine Bacteria FEW /hpf (NONE SEEN) 10/24/17 12:30 - Physical Exam Vitals and I&O: Vital Signs Temp 97.4 F 10/28/17 10:35 Pulse 83 10/28/17 10:35 Resp 19 10/28/17 10:35 BP 134/88 10/28/17 10:35 Pulse Ox 96 10/28/17 10:35 Intake & Output 0410/28/17 10/28/17 18:59 06:59 18:59 Intake Total 200 490 Output Total 1150 Balance 200 -660 Weight (lbs) 166 lb Intake: Intake, IV Amount 200 100 Fluconazole 200mg/100mL 100 200 mg In 100 ml @ 100 mls/hr IV Q24HR [facility] Rx#: [id number] Meropenem 1 gm In Sodium 100 100 Chloride 0.9% 100 ml @ 100 mls/hr IV Q12H [facility] Rx #:[id number] Tube Feeding 240 Other 150 Output: Urine 250 Stool 900 Other: Stool Characteristics Liquid Liquid Green Green Weight Source Bedscale Active Medications: Current Medications Acetaminophen (Tylenol) 650 mg PO Q6H PRN PRN Reason: PAIN OR FEVER >100 Acetaminophen/Hydrocodone Bitart ([place] 5mg/325mg) 1 tab GT Q6H PRN PRN Reason: PAIN Stop: 12/23/17 15:32 Albuterol Sulfate (Albuterol 2.5mg/3ml Neb Ud) 2.5 mg HHN Q4H PRN PRN Reason: Shortness of Breath Stop: 12/23/17 16:54 Albuterol/Ipratropium (Duoneb Neb) 3 ml HHN BIDRT [facility] Stop: 12/23/17 18:59 Last Admin: 10/28/17 07:25 Dose: 3 ml Benztropine Mesylate (Cogentin) 1 mg PO BID [facility] Stop: 12/23/17 16:59 Last Admin: 10/28/17 08:37 Dose: 1 mg Brimonidine Tartrate (Alphagan 0.2% Ophth Soln) 1 drop EACH EYE BID [facility] Stop: 12/23/17 16:59 Last Admin: 10/28/17 08:40 Dose: 1 drop Clonazepam (Klonopin) 1 mg PO BID [facility] Stop: 12/26/17 16:59 Last Admin: 10/28/17 08:36 Dose: 1 mg Enoxaparin Sodium (Lovenox) 40 mg SUBQ DAILY [facility] Stop: 12/26/17 08:59 Last Admin: 10/28/17 08:40 Dose: 40 mg Erythromycin (Erythrocin Dr) 250 mg PO BID [facility] Stop: 12/25/17 16:59 Last Admin: 10/28/17 08:38 Dose: 250 mg Escitalopram Oxalate (Lexapro) 20 mg PO DAILY [facility] PRN Reason: Protocol Stop: 12/24/17 08:59 Last Admin: 10/28/17 08:37 Dose: 20 mg Finasteride (Proscar) 5 mg PO DAILY [facility] PRN Reason: Protocol Stop: 12/24/17 08:59 Last Admin: 10/28/17 08:37 Dose: 5 mg Fluticasone Propionate (Flonase) 2 spr NS DAILY [facility] Stop: 12/24/17 08:59 Last Admin: 10/28/17 08:40 Dose: 2 spr Folic Acid (Folate) 1 mg PO DAILY [facility] Stop: 12/24/17 08:59 Last Admin: 10/28/17 08:37 Dose: 1 mg Guaifenesin/Dextromethorphan (Robitussin Dm) 10 ml PO Q4H PRN PRN Reason: Cough Stop: 12/23/17 15:32 Hydrocortisone (Hydrocortisone 1%) 1 appl TP BID PRN PRN Reason: Rash Stop: 12/23/17 15:32 Fluconazole (Diflucan) 200 mg in 100 mls @ 100 mls/hr IV Q24HR [facility] Stop: 12/23/17 17:59 Last Infusion: 10/27/17 18:57 Dose: Infused Meropenem 1 gm/ Sodium (Chloride) 100 mls @ 100 mls/hr IV Q12H [facility] Stop: 12/25/17 11:59 Last Infusion: 10/28/17 00:50 Dose: Infused Ibuprofen (Motrin) 600 mg PO Q6H PRN PRN Reason: Pain (Mild) Stop: 12/23/17 15:32 Lactobacillus Rhamnosus (Culturelle 15b) 1 each PO BID [facility] Stop: 12/23/17 16:59 Last Admin: 10/28/17 08:37 Dose: 1 each Lactulose (Cephulac) 20 gm PO TID [facility] Stop: 12/23/17 20:59 Last Admin: 10/28/17 08:38 Dose: 20 gm Lamotrigine (Lamictal) 200 mg PO DAILY@0700 [facility] Stop: 12/24/17 06:59 Last Admin: 10/28/17 06:24 Dose: 200 mg Lamotrigine (Lamictal) 350 mg PO DAILY@1700 [facility] Stop: 12/24/17 16:59 Last Admin: 10/27/17 16:58 Dose: 350 mg Latanoprost (Xalatan 0.005% Ophth Soln) 1 drop EACH EYE HS [facility] Stop: 12/23/17 20:59 Last Admin: 10/27/17 21:17 Dose: 1 drop Levetiracetam (Keppra) 1,000 mg PO BID [facility] Stop: 12/23/17 16:59 Last Admin: 10/28/17 08:36 Dose: 1,000 mg Levothyroxine Sodium (Synthroid) 0.125 mg PO QDAC [facility] Stop: 12/24/17 07:29 Last Admin: 10/28/17 08:38 Dose: 0.125 mg Loperamide HCl (Imodium) 4 mg PO PRN PRN PRN Reason: Loose Stools Last Admin: 10/24/17 18:12 Dose: 4 mg Lorazepam (Ativan) 1 mg PO BID PRN; Protocol PRN Reason: Agitation Stop: 12/23/17 15:32 Methotrexate (Methotrexate) 10 mg PO Tu [facility] PRN Reason: Protocol Stop: 12/27/17 08:59 Last Admin: 10/28/17 08:36 Dose: 10 mg Miscellaneous (Clobazam [Onfi]) 1 tab PO BID [facility] Stop: 12/23/17 16:59 Miscellaneous (Eslicarbazepine Acetate [Aptiom]) 600 mg PO 1700 [facility] Stop: 12/23/17 16:59 Nystatin (Nystop) 1 units TP BID [facility] Stop: 12/24/17 08:59 Last Admin: 10/28/17 08:39 Dose: 1 units Ondansetron HCl (Zofran) 4 mg IV Q8H PRN PRN Reason: Nausea / Vomiting Stop: 12/23/17 15:35 Last Admin: 10/26/17 07:35 Dose: 4 mg Petrolatum (Zinc Oxide) 1 appl TP DAILY [facility] Stop: 12/24/17 08:59 Last Admin: 10/28/17 08:39 Dose: 1 appl Quetiapine Fumarate (Seroquel) 25 mg PO BID [facility] PRN Reason: Protocol Stop: 12/23/17 16:59 Last Admin: 10/28/17 08:37 Dose: 25 mg Rifaximin (Xifaxan) 600 mg PO BID [facility] Stop: 12/23/17 16:59 Last Admin: 10/28/17 08:35 Dose: 600 mg Simethicone (Mylicon) 80 mg PO ACHS [facility] Stop: 12/23/17 20:59 Last Admin: 10/28/17 08:37 Dose: 80 mg Sodium Chloride ([place] Nasal [place]) 1 spr NS QID [facility] Stop: 12/23/17 16:59 Last Admin: 10/28/17 08:39 Dose: 1 spr Tamsulosin HCl (Flomax) 0.4 mg PO HS [facility] Stop: 12/23/17 20:59 Last Admin: 10/27/17 21:08 Dose: 0.4 mg General: lethargic, congested HEENT: NC/AT, PERRLA, thinning hair Neck: Supple, No JVD, No LAD Lungs: congested, rales, ronchi Cardiovascular: RRR, Normal S1, Normal S2 Abdomen: soft, non-tender, +GT, positive bowel sound Extremities: excoriation, ecchymosis, contracture, deformity Neurological: no change, lethargic, bedbound, spastic - Procedures Procedures: Procedures Procedure Code Date BYPASS ILEUM TO CUTANEOUS, OPEN APPROACH [id number] 09/23/17 ILEOSTOMY/JEJUNOSTOMY 70453 09/23/17 INSERTION OF ENDOTRACHEAL AIRWAY INTO TRACHEA, VIA OPENING [id number] 09/23/17 INSERTION OF FEEDING DEVICE INTO STOMACH, OPEN APPROACH [id number] 09/23/17 INTRODUCTION OF NUTRITIONAL INTO CENTRAL VEIN, PERC APPROACH [id number] 09/23/17 PARTIAL REMOVAL OF COLON 81558 09/23/[address] PLACE GASTROSTOMY TUBE 33440 09/23/17 RELEASE PERITONEUM, OPEN APPROACH [id number] 09/23/17 RESECTION OF LARGE INTESTINE, OPEN APPROACH [id number] 09/23/17 RESPIRATORY VENTILATION, LESS THAN 24 CONSECUTIVE HOURS [id number] 09/23/17 Nutritional Asmnt/Malnutr-PDOC - Dietary Evaluation Malnutrition Findings (Please click <Entered> for more info): Nutritional Asmnt/Malnutrition Start: 10/25/17 14: 50 Text: Status: Complete Freq: Document 10/25/17 14:50 MMULHERN (Rec: 10/25/17 15:10 MMULHERN MICKY- [email or web address]) Nutritional Asmnt/Malnutrition Patient General Information Nutritional Screening High Risk Diagnosis UTI (reason for visit) Pertinent Medical Hx/Surgical Hx mental retardation, cerebral palsy, seizure, recent colectomy with ileostomy, generalized contractures. Subjective Information Patient was admitted from SNF. Unable to interview due to patient's mental status. Per nursing notes, patient is tolerating tube feeding well. Current Diet Order/ Nutrition Support Peptamin AF 65 ml/hr (1560 ml volume, 1872 kcal, 118 gm protein) Patient / S.O Not Indicated Pertinent Medications abx, D5-0.45NS @ 80ml/hr, folate, culturelle, lactulose, synthroid, imodium, zofran, zinc oxide Pertinent Labs (10/25) nutrition related labs WNL Nutritional Hx/Data Height 5 ft 10 in Height (Calculated Centimeters) 177.8 Current Weight (lbs) 178 lb Weight (Calculated Kilograms) 80.7 Weight (Calculated Grams) 80124.4 [place] Body Weight 166 % [place] Body Weight 107 Body Mass Index (BMI) 25.5 Recent Weight Change No Weight Status Overweight GI Symptoms Last BM Ileostomy present with liquid drainage Difficult in: Chewing Swallowing Food Allergies No Cultural/Ethnic/Yazidism Belief None indicated Usual diet at home G tube feedings Skin Integrity/Comment: Alfredo 10, rash, discoloration on both lower legs, scar Estimated Nutritional Goals BEE in Kcals: Using Current wt Calories/Kcals/Kg 81kg CBW 22-27 kcal/kg Kcals Calculated ~5641-7030 kcal/day Protein: Using Current wt Protein g/k.1-1.3 gm/kg Protein Calculated ~90-105 gm/day Fluid: ml ~2032-7393 ml/day (25-30 ml/kg ) Nutritional Problem 1. Problem Problem No nutrition diagnosis at this time Intervention/Recommendation Comments 1. Consider decreasing tube feeding rate to 60ml/hr to adequately meet nutrient needs . 1440ml volume, 1728 kcal, 109 gm protein. Continue Peptamen as ordered as this is what patient tolerated at SNF . Expected Outcomes/Goals Expected Outcomes/Goals patient meets >75% Of nutrient needs from nutrition support, nutrition related labs remain WNL, weight stable. F/U in 3-5 days as MR (10/28- )
[2017-10-28] MEDS: Meropenem 1 GM in Sodium Chloride 0.9% 100 ML IV SCH (11:17)
--- NOTE | 2017-10-28 18:20 | Discharge Summary ---
DATE OF DISCHARGE: 10/28/2017 DICTATED FOR: Zack Rick D.O. DISCHARGE DIAGNOSES: Acute urinary tract infection, generalized weakness, leukocytosis, anemia, dehydration, renal insufficiency, mitral regurigtation, cerebral palsy, seizures, subtotal colectomy with ileostomy, bedridden, contractures. HISTORY OF PRESENT ILLNESS: A 62-year-old male with a history of MR, cerebral palsy, seizure, recent colectomy with ileostomy, generalized contractures; admitted from nursing facility secondary to ____ normal, not feeling well, complaining the patient was very agitated. The patient was brought in the ER, noted to have UTI. PHYSICAL EXAMINATION: GENERAL: Elderly male, awake, in no apparent distress. VITAL SIGNS: Stable. HEENT: Normocephalic, atraumatic. NECK: Supple. No mass. LUNGS: Clear bilaterally. ABDOMEN: Soft, nontender. HOSPITAL COURSE: During the hospital stay, the patient was admitted to the telemetry unit. The patient was kept on empiric IV antibiotics as well as IV hydration. The patient was on antifungal medication. The patient had a consultation with GI as well. The patient had a urine culture done and was positive for E. coli ESBL Klebsiella pneumoniae. The patient is to continue IV Merrem and Diflucan for 7 days and Merrem 1 gram IV every 12 hours for 7 days for MDRO ESBL urine. The patient did not have any fevers during hospital stay. For this reason, the patient is stable for discharge. CONDITION UPON DISCHARGE: Fair. DISPOSITION: ____ home. [facility]# [id number]
--- NOTE | 2017-10-29 04:32 | Discharge Summary ---
DATE OF DISCHARGE: 10/27/2017 CHIEF COMPLAINT: Not feeling well. FINAL DIAGNOSES: 1. Urinary tract infection, [place]. 2. Generalized weakness. 3. Leukocytosis. 4. Anemia. 5. Dehydration. 6. Renal insufficiency. 7. Mental retardation. 8. Cerebral palsy. 9. Seizure. 10. Status post colectomy with ileostomy. 11. Bedridden. 12. Generalized contractures. 13. Psychiatric disorder. HISTORY: This is a 62-year-old male with history of mental retardation, cerebral palsy, seizure, recent colectomy with ileostomy, was admitted from nursing facility secondary to not acting at baseline and agitated. The patient was brought into the ER and noted to have urinary tract infection. Admitted for further management. PHYSICAL EXAMINATION: VITAL SIGNS: Blood pressure 107/61, respirations 19, pulse 89, temperature 97.4. GENERAL: Elderly male, appears stated age. NECK: Supple. LUNGS: Equal breath sounds, few rhonchi. HEART: Regular rate and rhythm with systolic ejection murmur. ABDOMEN: Soft, globular. Positive intact diverting ileostomy. NEUROLOGIC: Limited. HOSPITAL COURSE: The patient was admitted to Telemetry. Continue on IV hydration, IV antibiotics. The patient's UA grew E. coli, which is ESBL, sensitive to Merrem. The patient with previous [place] in the urine. White count was 15,000. This is improving. The patient to be discharged on IV Merrem and Diflucan. CONDITION ON DISCHARGE: Fair. OVERALL PROGNOSIS: Poor. DISCHARGE INSTRUCTIONS: The patient to continue on current regimen. The patient to be referred back to the nearest ER if his condition worsens. JOB# [id number]
== END 2017-10-28 13:10 | disposition home health service (06) | DRG 871 ==
LOC: ER 11:07 → TELE 15:57
PROVIDERS: ADMIT Internal Medicine; ATTEND Internal Medicine
DX: A41.9 Sepsis, unspecified organism (principal); R53.2 Functional quadriplegia; N39.0 Urinary tract infection, site not specified; E46 Unspecified protein-calorie malnutrition; E87.1 Hypo-osmolality and hyponatremia; E86.0 Dehydration; F79 Unspecified intellectual disabilities; G80.9 Cerebral palsy, unspecified; R13.10 Dysphagia, unspecified; B96.5 Pseudomonas (aeruginosa) (mallei) (pseudomallei) as the cause of diseases classified elsewhere; B95.2 Enterococcus as the cause of diseases classified elsewhere; D63.8 Anemia in other chronic diseases classified elsewhere; M43.6 Torticollis; K59.09 Other constipation; I34.0 Nonrheumatic mitral (valve) insufficiency; B96.1 Klebsiella pneumoniae [K. pneumoniae] as the cause of diseases classified elsewhere; Z16.24 Resistance to multiple antibiotics; B96.20 Unspecified Escherichia coli [E. coli] as the cause of diseases classified elsewhere; G40.909 Epilepsy, unspecified, not intractable, without status epilepticus; Z74.01 Bed confinement status; Z93.2 Ileostomy status; Z93.1 Gastrostomy status; Z87.440 Personal history of urinary (tract) infections; Z88.6 Allergy status to analgesic agent; Z88.8 Allergy status to other drugs, medicaments and biological substances
CPT/HCPCS: 36415-UA; 71045-TC; 74000-TC; 80048-TC; 80053-TC; 80076-TC; 81001-TC; 82140-TC; 82150-TC; 83605; 83690-TC; 83735-TC; 83880-TC; 84484-TC; 85025-TC; 85610-TC; 87086-90; 93005; 94760; J0692; J1450; J1650; J2185; J2405; J7042; J8610; Z7610

== ENCOUNTER 2017-11-01 07:36 | Inpatient (IN) | payer MEDICARE, MEDICAID ==
--- NOTE | 2017-11-01 07:57 | ED Physician Chart ---
ED Chief Complaint/HPI - Patient Information Date Seen:: 11/01/17 Time Seen:: 07:45 Chief Complaint:: Dislodged G-tube History of Present Illness:: 62 yo male was brought from [facility] to ER for replacement of dislodged G-tube. The G -tube was found to dislodged about 1 hour ago and a Burgess catheter was inserted to keep the stoma open. Per [employer] [facility] [facility] from the SNF, the patient vomited twice a day ago with low urine and ilieostomy output. The patient was lethargic during past few days. Patient vomited once at ER. Allergies:: Allergies Allergy/AdvReac Type Severity Reaction Status Date / Time buspirone [From BuSpar] Allergy Verified 11/01/17 07:49 divalproex sodium Allergy Verified 06/12/17 17:50 [From Depakote] fluoxetine Allergy Verified 06/12/17 13:01 magnesium hydroxide Allergy Verified 06/12/17 13:00 [From Milk of Magnesia] metoclopramide Allergy Verified 06/12/17 13:00 ondansetron Allergy Verified 06/12/17 13:01 ED Review of Systems - Review of Systems General/Constitutional: Weakness Skin: No rash Head: No headache Eyes: No pain ENT: No nasal drainage Neck: Stiffness Cardio Vascular: No chest pain Pulmonary: No cough GI: Other (dislodged G-tube) Musculoskeletal: No bone or joint pain Neurological: Weakness ED Past Medical History - Past Medical History Past Medical History: Seizures, Thyroid disorder, Other (Severe intellectural disability, gastritis, dystonia anterocollis, glaucoma, testicular hypofunction) Social History: Non Smoker, No Alcohol, No Drug Use Surgical History: other (VNS stimulator) Psychiatricy History: Depression, Other (Impulse control disorder) Family Medical History - Family Member Mother History Unknown: Yes Ethnicity: Non- Father History Unknown: Yes Ethnicity: Unknown Living Status: Unknown ED Physical Exam - Physical Examination Other Gen/Cons comments:: lethargic Eyes: PERRL Skin: No ecchymosis ENMT: Nasal exam nl Other Neck comments:: Neck contracture towards the left Respiratory: No Wheeze/Rhonchi/Rales Cardio Vascular: RRR, No murmur, gallop, rubs, NL S1 S2 Other GI comments:: Burgess in G tube stoma without bleed or purulent drainage. Abdominal distention. Other Extremities comments:: stiffness in BLE Other Neuro/Psych comments:: awaken to voice ED Labs/Radiology/EKG Results - Radiology Results Results: KUB: G-tube in gastric lumen. Dilated gas filled small bowel CT abdomen/pelvis: SBO ED Assessment - Assessment General Assessment: Dislodged G-tube Leukocytosis Small bowel obstruction Assessment/Comments:: Replaced G-tube KUB CT abdomen without contrast CBC, CMP, lipase UA NS 1L IV bolus Admit to med surg for further evaluation and management - Procedures Procedures:: G-tube replacement: cleaned stoma with betadine, removed burgess catheter, inserted 20 F G-tube with 15cc NS injected into the balloon. Patient tolerated the procedure well without complications. Informed Consent: Procedure/risk/benefits explained by MD: No (Patient is obtunded) ED Septic Shock - . Is Septic Shock (SBP<90, OR Lactate>4 mmol\L) present?: No ED Reassessment (Disposition) - Reassessment Reassessment Condition:: Improved - Patient Disposition Discharge/Transfer:: Acute Care w/in this [facility] Admitting Medical Physician:: Zack Rick ED Discharge Plan - Patient Disposition Admit/Discharge/Transfer: Acute Care w/in this hosp
[2017-11-01] MEDS ORDERED: Diatrizoate Meglumine/Diatri 30 mL Sol ONE (08:10)
[2017-11-01 08:57] LABS: BASOPHILE ABSOLUTE 0.2 Th/cumm (0-0.2); EOSINOPHILE ABSOLUTE 0.2 Th/cmm (0.1-0.4); HEMATOCRIT 45.4 % (41.0-60); HEMOGLOBIN 15.8 gm/dL (12-16); MANUAL DIFF REQUIRED? YES; MEAN CELL VOLUME 93.6 fl (80-99); MEAN CORPUSCULAR HEMOGLOBIN 32.6 pg (26.0-30.0); MEAN CORPUSCULAR HGB CONC 34.8 pg (28.0-36.0); MONOCYTE ABSOLUTE 0.6 Th/cmm (0.3-1.0); NEUTROPHILE ABSOLUTE 18.8 Th/cmm (1.8-8.0); PLATELET COUNT 383 Th/cmm (150-400); RED BLOOD COUNT 4.85 Mil/cmm (4.30-5.70); RED CELL DISTRIBUTION WIDTH 13.8 % (11.5-20.0)
[2017-11-01 09:01] LABS: WHITE BLOOD COUNT 21.8 Th/cmm (4.8-10.8)
[2017-11-01 09:14] LABS: ALB/GLOB RATIO 1.1 (1.0-1.8); ALBUMIN 4.4 gm/dL (4.2-5.5); ANION GAP 15.9 (7.0-16.0); BILIRUBIN,TOTAL 0.7 mg/dL (0.3-1.0); CALCIUM SERUM 11.5 mg/dL (8.6-10.3); CARBON DIOXIDE 31.6 mEq/L (21.0-31.0); CREATININE - SERUM 2.2 mg/dL (0.7-1.3); GFR AFRICAN-AMERICAN 39.5 ml/min (>90); GFR NON AFRICAN-AMERICAN 32.6 ml/min; POTASSIUM SERUM 4.5 mEq/L (3.5-5.1); TOTAL PROTEIN,SERUM 8.6 gm/dL (6.0-8.3)
[2017-11-01 09:18] LABS: LYMPHOCYTE 10 % (20-50); MONOCYTE 9 % (2-10); NEUTROPHILS 81 % (40-80); PLATELET ESTIMATE ADEQUATE (NORMAL); TOTAL CELLS COUNTED 100
--- NOTE | 2017-11-01 09:21 | Diagnostic Imaging Report ---
Exam: Upper GI. HISTORY: G-tube placement. Findings: Portable examination of the abdomen at 0833 hours with injection of Gastrografin into the gastrostomy tube demonstrates normal opacification stomach. There is evidence for distention of small bowel loops suggestive of ileus small bowel obstruction or paralytic ileus. Follow-up exam recommended. IMPRESSION: 1. Gastrostomy tube the stomach 2. Question of early small bowel obstruction versus paralytic ileus, follow-up examination is recommended. Somewhat
[2017-11-01 09:31] LABS: URINE MICROSCOPIC INDICATED? YES; URINE SOURCE RANDOM
[2017-11-01] MEDS ORDERED: Sodium Chloride 0.9% 1,000 ML IV ONE (09:38)
[2017-11-01 09:39] LABS: URINE BILIRUBIN SMALL (NEGATIVE); URINE BLOOD TRACE (NEGATIVE); URINE GLUCOSE (UA) NEGATIVE (NEGATIVE); URINE KETONE NEGATIVE (NEGATIVE); URINE LEUKOCYTE ESTERASE SMALL (NEGATIVE); URINE NITRATE NEGATIVE (NEGATIVE); URINE PH 5.5 (4.6 - 8.0); URINE PROTEIN 100 mg/dL (NEGATIVE); URINE UROBILINOGEN 0.2 E.U./dL (0.2 - 1.0)
[2017-11-01 09:40] LABS: URINE CLARITY HAZY (CLEAR); URINE COLOR YELLOW
[2017-11-01 09:45] LABS: URINE RBC 0-2 /hpf (0-5)
[2017-11-01 09:46] LABS: URINE BACTERIA MODERATE /hpf (NONE SEEN); URINE EPITHELIAL CELLS MODERATE /lpf (FEW); URINE WBC 50-100 /hpf (0-5)
[2017-11-01] MEDS ORDERED: Hydrocodone/APAP 5mg/325mg Tab PO PRN (10:06)
[2017-11-01] MEDS ORDERED: LEVALBUTEROL HCL HHN PRN (10:06)
--- NOTE | 2017-11-01 10:29 | Diagnostic Imaging Report ---
Exam: Portable chest x-ray HISTORY: Cough. Portable examination of chest at 0951 hours reviewed the study related to prior exam of 10/24/2017 demonstrates severe deformity of the upper thoracic spine the study is somewhat limited due to patient inability to cooperate. Grossly no acute pulmonic great noted. IMPRESSION: Limited examination due to patient inability cooperate, no acute disease.
--- NOTE | 2017-11-01 10:39 | Diagnostic Imaging Report ---
Exam: CT examination of pelvis. Total DLP equals 790 CTDI equals 14.9 5: Multiple contiguous thin section of the abdomen pelvis obtained from lower thorax to pubic symphysis without the administration of oral or intravenous contrast material. The study compared to prior exam of 10/24/2021. The study demonstrates a there is evidence of for normal appearance of liver parenchyma and spleen. Residual oral contrast is noted in the stomach. Gastrostomy tube is noted. There is evidence for COPD distention small bowel loops most likely consistent with small bowel obstruction in the distal jejunum. Previous colonic resection is noted. The kidneys demonstrate no evidence of obstructive uropathy or nephrolithiasis. Atrophic changes of the left kidney appreciated. Right lower quadrant colostomy is noted. There is no evidence of diverticular disease of diverticulitis. Urinary bladder contains a Suggs catheter. Postoperative changes the rectosigmoid junction appreciated. Degenerative changes of lumbar sacral spine appreciated with the osteophytic spurring and narrowing of the intravertebral disc spaces distally. Several old compression fractures are noted. IMPRESSION: 1. Small bowel obstruction with a transition point most likely in the distal jejunum, clinical correlation recommended.
[2017-11-01] MEDS ORDERED: Albuterol Nebulizer 2.5mg/3mL HHN PRN (11:20)
[2017-11-01] MEDS ORDERED: Meropenem 500 MG in Sodium Chloride 0.9% 100 ML IV SCH (12:00)
[2017-11-01 12:10] VITALS: BP 133/88
[2017-11-01] MEDS: D5-0.9%NS 1,000 ML IV SCH (12:52)
[2017-11-01] MEDS: Meropenem 500 mg in NS 0.9% 100 ML IV SCH (12:54)
[2017-11-01] MEDS: Saline 0.65% Nasal Spray NS SCH ×3 (13:18→23:48)
--- NOTE | 2017-11-01 13:52 | Internal Medicine Prog Note ---
Internal Medicine Subjective - Subjective Service Date: 11/01/17 (hnp dictated [id number] hnp dictated) Internal Medicine Objective - Results Result Diagrams: 11/01/17 08:49 11/01/17 08:49 Recent Labs: Laboratory Last Values WBC 21.8 Th/cmm (4.8-10.8) H* 11/01/17 08:49 RBC 4.85 Mil/cmm (4.30-5.70) 11/01/17 08:49 Hgb 15.8 gm/dL (12-16) 11/01/17 08:49 Hct 45.4 % (41.0-60) 11/01/17 08:49 MCV 93.6 fl (80-99) 11/01/17 08:49 MCH 32.6 pg (26.0-30.0) H 11/01/17 08:49 MCHC Differential 34.8 pg (28.0-36.0) 04 08:49 RDW 13.8 % (11.5-20.0) 11/01/17 08:49 Plt Count 383 Th/cmm (150-400) 11/01/17 08:49 MPV 8.0 fl 11/01/17 08:49 Neutrophils (Manual) 81 % (40-80) H 11/01/17 08:49 Lymphocytes 10 % (20-50) L 11/01/17 08:49 Monocytes 9 % (2-10) 11/01/17 08:49 Platelet Estimate ADEQUATE (NORMAL) 11/01/17 08:49 Sodium 141 mEq/L (136-145) 11/01/17 08:49 Potassium 4.5 mEq/L (3.5-5.1) 11/01/17 08:49 Chloride 98 mEq/L (98-107) 11/01/17 08:49 Carbon Dioxide 31.6 mEq/L (21.0-31.0) H 11/01/17 08:49 Anion Gap 15.9 (7.0-16.0) 11/01/17 08:49 BUN 65 mg/dL (7-25) H 11/01/17 08:49 Creatinine 2.2 mg/dL (0.7-1.3) H 11/01/17 08:49 Est GFR ( Amer) 39.5 ml/min (>90) 11/01/17 08:49 Est GFR (Non-Af Amer) 32.6 ml/min 11/01/17 08:49 BUN/Creatinine Ratio 29.5 11/01/17 08:49 Glucose 121 mg/dL (70-105) H 11/01/17 08:49 POC Glucose 114 MG/DL (70 - 105) H 11/01/17 11:24 Whole Bld Lactic Acid 1.20 mmol/L (0.60-1.99) 11/01/17 08:49 Calcium 11.5 mg/dL (8.6-10.3) H 11/01/17 08:49 Magnesium 2.3 mg/dL (1.9-2.7) 11/01/17 08:49 Total Bilirubin 0.7 mg/dL (0.3-1.0) 11/01/17 08:49 AST 28 U/L (13-39) 11/01/17 08:49 ALT 37 U/L (7-52) 11/01/17 08:49 Alkaline Phosphatase 162 U/L (34-104) H 11/01/17 08:49 Troponin I 0.03 ng/mL (0.01-0.05) 11/01/17 08:49 Total Protein 8.6 gm/dL (6.0-8.3) H 11/01/17 08:49 Albumin 4.4 gm/dL (4.2-5.5) 11/01/17 08:49 Globulin 4.2 gm/dL 11/01/17 08:49 Albumin/Globulin Ratio 1.1 (1.0-1.8) 11/01/17 08:49 Lipase 38 U/L (11-82) 11/01/17 08:49 TSH 12.56 uIU/ml (0.34-5.60) H 11/01/17 08:49 Urine Source RANDOM 11/01/17 09:20 Urine Color YELLOW 11/01/17 09:20 Urine Clarity HAZY (CLEAR) 11/01/17 09:20 Urine pH 5.5 (4.6 - 8.0) 11/01/17 09:20 Ur Specific [place] >= 1.030 (1.005-1.030) 11/01/17 09:20 Urine Protein 100 mg/dL (NEGATIVE) H 11/01/17 09:20 Urine Glucose (UA) NEGATIVE mg/dL (NEGATIVE) 11/01/17 09:20 Urine Ketones NEGATIVE mg/dL (NEGATIVE) 11/01/17 09:20 Urine Blood TRACE (NEGATIVE) 11/01/17 09:20 Urine Nitrate NEGATIVE (NEGATIVE) 11/01/17 09:20 Urine Bilirubin SMALL (NEGATIVE) H 11/01/17 09:20 Urine Urobilinogen 0.2 E.U./dL (0.2 - 1.0) 11/01/17 09:20 Ur Leukocyte Esterase SMALL (NEGATIVE) H 11/01/17 09:20 Urine RBC 0-2 /hpf (0-5) H 11/01/17 09:20 Urine WBC 50-100 /hpf (0-5) H 11/01/17 09:20 Ur Epithelial Cells MODERATE /lpf (FEW) 11/01/17 09:20 Urine Bacteria MODERATE /hpf (NONE SEEN) H 11/01/17 09:20 - Physical Exam Vitals and I&O: Vital Signs Temp 97.0 F 11/01/17 12:02 Pulse 96 11/01/17 12:02 Resp 18 11/01/17 12:02 BP 133/88 11/01/17 12:10 Pulse Ox 96 11/01/17 12:02 Intake & Output 10/31/17 11/01/17 11/01/17 18:59 06:59 18:59 Output Total 150 Balance -150 Weight (lbs) 144 lb Output: Urine 150 Other: Weight Source Estimated Active Medications: Current Medications Acetaminophen (Tylenol) 650 mg PO Q6H PRN PRN Reason: PAIN OR FEVER >100 Acetaminophen/Hydrocodone Bitart ([place] 5mg/325mg) 1 tab PO Q6H PRN PRN Reason: PAIN/DISCOMFORT Stop: 12/31/17 10:05 Albuterol Sulfate (Albuterol 2.5mg/3ml Neb Ud) 2.5 mg HHN Q4HRT PRN PRN Reason: Shortness of Breath Stop: 12/31/17 11:19 Benztropine Mesylate (Cogentin) 1 mg PO BID [facility] Stop: 12/31/17 16:59 Brimonidine Tartrate (Alphagan 0.2% Ophth Soln) 1 drop EACH EYE BID [facility] Stop: 12/31/17 16:59 Chlorhexidine Gluconate (Peridex) 15 ml MM DAILY [facility] Stop: 01/01/18 08:59 Clonazepam (Klonopin) 1 mg PO BID [facility] Stop: 12/31/17 16:59 Dorzolamide/Timolol (Cosopt Ophth Soln) 1 drop RIGHT EYE BID [facility] Stop: 12/31/17 16:59 Escitalopram Oxalate (Lexapro) 20 mg PO DAILY [facility] PRN Reason: Protocol Stop: 01/01/18 08:59 Fluticasone Propionate (Flonase) 2 spr NS DAILY [facility] Stop: 01/01/18 08:59 Hydrocortisone (Hydrocortisone 1%) 1 appl TP BID PRN PRN Reason: Rash Stop: 12/31/17 10:05 Dextrose/Sodium Chloride (D5-0.9%Ns) 1,000 mls @ 80 mls/hr IV .[id number] [facility] Stop: 12/31/17 10:29 Last Admin: 11/01/17 12:52 Dose: 80 mls/hr Meropenem 500 mg/ Sodium (Chloride) 100 mls @ 100 mls/hr IV Q12H [facility] Stop: 12/31/17 11:59 Last Admin: 11/01/17 12:54 Dose: 100 mls/hr Lamotrigine (Lamictal) 200 mg PO DAILY [facility] Stop: 01/01/18 08:59 Lamotrigine (Lamictal) 350 mg PO HS [facility] Stop: 12/31/17 20:59 Latanoprost (Xalatan 0.005% [facility] Soln) 1 drop EACH EYE HS [facility]AN Stop: 12/31/17 20:59 Levetiracetam (Keppra) 1,000 mg PO BID [facility] Stop: 12/31/17 16:59 Levothyroxine Sodium (Synthroid) 0.125 mg PO DAILY [facility]AN Stop: 01/01/18 08:59 Methotrexate (Methotrexate) 10 mg PO Tu@0730 [facility] PRN Reason: Protocol Stop: 01/03/18 07:29 Miconazole Nitrate (Micatin 2%) 1 appl TP BID [facility] Stop: 12/31/17 16:59 Miscellaneous (Clobazam [Onfi]) 1 tab PO BID [facility] Stop: 12/31/17 16:59 Miscellaneous (Eslicarbazepine Acetate [Aptiom]) 600 mg PO 1700 [facility] Stop: 12/31/17 16:59 Miscellaneous (Ppn Per Pharmacy) 1 ea MC PRN PRN PRN Reason: PROTOCOL Stop: 12/31/17 10:15 Pantoprazole Sodium (Protonix) 40 mg IVP BID [facility] Stop: 12/31/17 16:59 Petrolatum (Vaseline Oint) 1 appl TP BID [facility] Stop: 12/31/17 16:59 Quetiapine Fumarate (Seroquel) 25 mg PO BID [facility] PRN Reason: Protocol Stop: 12/31/17 16:59 Rifaximin (Xifaxan) 600 mg PO BID [facility] Stop: 12/31/17 16:59 Sodium Chloride ([place] Nasal [place]) 1 spr NS QID [facility]AN Stop: 12/31/17 12:59 Last Admin: 11/01/17 13:18 Dose: 1 spr - Procedures Procedures: Procedures Procedure Code Date BYPASS ILEUM TO CUTANEOUS, OPEN APPROACH [id number] 09/23/17 ILEOSTOMY/JEJUNOSTOMY 34483 09/23/17 INSERTION OF ENDOTRACHEAL AIRWAY INTO TRACHEA, VIA OPENING [id number] 09/23/17 INSERTION OF FEEDING DEVICE INTO STOMACH, OPEN APPROACH [id number] 09/23/17 INTRODUCTION OF NUTRITIONAL INTO CENTRAL VEIN, PERC APPROACH [id number] 09/23/17 PARTIAL REMOVAL OF COLON 13332 09/23/[address] PL[address] GASTROSTOMY TUBE 04570 09/23/17 RELEASE PERITONEUM, OPEN APPROACH [id number] 09/23/17 RESECTION OF LARGE INTESTINE, OPEN APPROACH [id number] 09/23/17 RESPIRATORY VENTILATION, LESS THAN 24 CONSECUTIVE HOURS [id number] 09/23/17 Internal Medicine Assmt/Plan - Assessment Assessment: sepsis intractable vomiting small bowel obstruction acute renal insufficiency acute uti mr cp seizures generalized contractures
[2017-11-01] MEDS: Benztropine 1 MG TAB PO SCH (16:46)
[2017-11-01] MEDS: Levetiracetam 500 mg/5mL 5mL UDSyr *for ORAL USE ONLY PO SCH (16:47)
[2017-11-01] MEDS: Miconazole Nitrate 2% Cream 30gm TP SCH (16:48)
[2017-11-01] MEDS ORDERED: RIFAXIMIN PO SCH (17:00)
[2017-11-01] MEDS ORDERED: HYDROPHIL PETROLAT TP SCH (17:00)
[2017-11-01] MEDS ORDERED: Non-Formulary Item 1 EA (Levetiracetam [Keppra] 1,000 MG) PO SCH (17:00)
[2017-11-01] MEDS ORDERED: [UNRECOGNIZED DRUG - OTHER] TP SCH (17:00)
[2017-11-01] MEDS ORDERED: MICONAZOLE NITRATE 2% TP SCH (17:00)
[2017-11-01] MEDS: Petrolatum (White) Oint 0.6 Oz Tube TP SCH (17:13)
[2017-11-01] MEDS ORDERED: LAMOTRIGINE PO SCH (21:00)
[2017-11-02] MEDS: D5-0.9%NS 1,000 ML IV SCH (02:37)
[2017-11-02 06:38] LABS: ALB/GLOB RATIO 1.1 (1.0-1.8); ALBUMIN 3.7 gm/dL (4.2-5.5); ALKALINE PHOSPHATASE 132 U/L (34-104); ANION GAP 12.4 (7.0-16.0); BILIRUBIN,TOTAL 0.6 mg/dL (0.3-1.0); BUN - UREA NITROGEN 57 mg/dL (7-25); CARBON DIOXIDE 26.4 mEq/L (21.0-31.0); CHLORIDE 108 mEq/L (98-107); CREATININE - SERUM 1.5 mg/dL (0.7-1.3); GFR AFRICAN-AMERICAN > 60.0 ml/min (>90); GFR NON AFRICAN-AMERICAN 50.7 ml/min; GLUCOSE 112 mg/dL (70-105); MAGNESIUM 2.2 mg/dL (1.9-2.7); PHOSPHOROUS 2.9 mg/dL (2.5-5.0); POTASSIUM SERUM 4.8 mEq/L (3.5-5.1); SGOT 29 U/L (13-39); SGPT/ALT 25 U/L (7-52); SODIUM SERUM 142 mEq/L (136-145); TOTAL PROTEIN,SERUM 7.2 gm/dL (6.0-8.3); TRIGLYCERIDES 196 mg/dL (<150)
[2017-11-02] MEDS ORDERED: Chlorhexidine Gluconate 0.12% 15mL Mouthwash MM SCH (09:00)
[2017-11-02] MEDS: Benztropine 1 MG TAB PO SCH ×2 (09:11→17:04)
[2017-11-02] MEDS: Multivitamin w/ Minerals Tab PO SCH (09:12)
[2017-11-02] MEDS: Levetiracetam 500 mg/5mL 5mL UDSyr *for ORAL USE ONLY PO SCH ×2 (09:12→17:04)
[2017-11-02] MEDS: Levothyroxine 0.125 Mg Tab PO SCH (09:14)
[2017-11-02] MEDS: Miconazole Nitrate 2% Cream 30gm TP SCH ×2 (09:14→17:05)
[2017-11-02] MEDS: Saline 0.65% Nasal Spray NS SCH ×4 (09:15→20:22)
[2017-11-02] MEDS: Petrolatum (White) Oint 0.6 Oz Tube TP SCH ×2 (09:25→17:05)
--- NOTE | 2017-11-02 09:36 | History & Physical ---
ADMIT DATE: 11/01/2017 CHIEF COMPLAINT: Dislodged G-tube. HISTORY OF PRESENT ILLNESS: This is a 62-year-old male who is well known to me [facility]. Apparently, the patient's G-tube was dislodged in the ER, a Suggs catheter was inserted by ER physician to keep stoma open and the patient was also noted to have vomited at the residential as well associated with lethargy as well. For further management, the patient is admitted to the telemetry unit. PAST MEDICAL HISTORY: MR, cerebral palsy, seizure, recent colectomy with ileostomy, generalized contractures. PAST SURGICAL HISTORY: Colectomy, ileostomy. ALLERGIES: DEPAKOTE, FLUOXETINE, MAGNESIUM HYDROXIDE, REGLAN, ZOFRAN. MEDICATIONS: Fosamax, calcium, chlorhexidine, loratadine, lorazepam, Tylenol, Cogentin, clonazepam, finasteride, Flonase, folic acid, ibuprofen, [place], lactulose, Lamictal, albuterol, Synthroid, methotrexate, multivitamin, rifaximin. FAMILY HISTORY: Noncontributory. SOCIAL HISTORY: The patient is a residential resident ____. REVIEW OF SYSTEMS: Unable to obtain due to the patient's mental status. PHYSICAL EXAMINATION: GENERAL: The patient is well developed, well nourished, no acute distress. VITAL SIGNS: Temperature 97.0, heart rate 96, blood pressure 133/88, respiration 18, O2 is 96%. HEAD: Normocephalic, atraumatic. NECK: Supple. No mass. LUNGS: Clear bilaterally. ____. ABDOMEN: Soft and nontender. LABORATORY DATA: WBC 21.8, H and H 15.8 and 45.4, and platelet of 383. Sodium 141, potassium 4.5, chloride 98, BUN 65, creatinine 2.2, magnesium of 2.3. TSH of 12.6. The patient has a urinalysis done, positive for UTI. DIAGNOSTICS: The patient had a KUB done and the impression is gastrostomy tube in the stomach, questionable early small-bowel obstruction versus paralytic ileus. The patient also had a CT of the abdomen and pelvis done and the impression is small-bowel obstruction with a transition point most likely in the distal jejunum. Clinical correlation recommended. Chest x-ray, impression is limited examination due to the patient's inability to cooperate, no acute disease. ASSESSMENT: Sepsis, intractable vomiting, G-tube malfunction, acute renal insufficiency, acute urinary tract infection, MR, cerebral palsy, seizure, generalized contractures. PLAN: The patient to be admitted to the telemetry unit. We will keep the patient on IV fluids for hydration. We will monitor the patient's BUN and creatinine. We will monitor the patient's lab results. We will get GI on the case, also surgical consultation as well as wound consult. Keep the patient on empiric IV antibiotics of Merrem. Repeat the patient's CBC and BMP for tomorrow morning. We will continue to monitor this patient. JOB# [id number]
[2017-11-02] MEDS ORDERED: Diatrizoate Meglumine/Diatri 30 mL Sol PO ONE (09:47)
--- NOTE | 2017-11-02 09:48 | General Progress Note ---
Subjective - Review of Systems Service Date: 11/02/17 Events since last encounter: SBO series ordered for tomorrow Objective - Results Result Diagrams: 11/01/17 08:49 11/02/17 06:13 Recent Labs: Laboratory Last Values WBC 21.8 Th/cmm (4.8-10.8) H* 11/01/17 08:49 RBC 4.85 Mil/cmm (4.30-5.70) 11/01/17 08:49 Hgb 15.8 gm/dL (12-16) 11/01/17 08:49 Hct 45.4 % (41.0-60) 11/01/17 08:49 MCV 93.6 fl (80-99) 11/01/17 08:49 MCH 32.6 pg (26.0-30.0) H 11/01/17 08:49 MCHC Differential 34.8 pg (28.0-36.0) 04 08:49 RDW 13.8 % (11.5-20.0) 11/01/17 08:49 Plt Count 383 Th/cmm (150-400) 11/01/17 08:49 MPV 8.0 fl 11/01/17 08:49 Neutrophils (Manual) 81 % (40-80) H 11/01/17 08:49 Lymphocytes 10 % (20-50) L 11/01/17 08:49 Monocytes 9 % (2-10) 11/01/17 08:49 Platelet Estimate ADEQUATE (NORMAL) 11/01/17 08:49 Sodium 142 mEq/L (136-145) 11/02/17 06:13 Potassium 4.8 mEq/L (3.5-5.1) 11/02/17 06:13 Chloride 108 mEq/L (98-107) H 11/02/17 06:13 Carbon Dioxide 26.4 mEq/L (21.0-31.0) 11/02/17 06:13 Anion Gap 12.4 (7.0-16.0) 11/02/17 06:13 BUN 57 mg/dL (7-25) H 11/02/17 06:13 Creatinine 1.5 mg/dL (0.7-1.3) H 11/02/17 06:13 Est GFR ( Amer) > 60.0 ml/min (>90) 11/02/17 06:13 Est GFR (Non-Af Amer) 50.7 ml/min 11/02/17 06:13 BUN/Creatinine Ratio 38.0 11/02/17 06:13 Glucose 112 mg/dL (70-105) H 11/02/17 06:13 POC Glucose 114 MG/DL (70 - 105) H 11/01/17 11:24 Whole Bld Lactic Acid 1.20 mmol/L (0.60-1.99) 11/01/17 08:49 Calcium 10.0 mg/dL (8.6-10.3) 11/02/17 06:13 Phosphorus 2.9 mg/dL (2.5-5.0) 11/02/17 06:13 Magnesium 2.2 mg/dL (1.9-2.7) 11/02/17 06:13 Total Bilirubin 0.6 mg/dL (0.3-1.0) 11/02/17 06:13 AST 29 U/L (13-39) 11/02/17 06:13 ALT 25 U/L (7-52) 11/02/17 06:13 Alkaline Phosphatase 132 U/L (34-104) H 11/02/17 06:13 Troponin I 0.03 ng/mL (0.01-0.05) 11/01/17 08:49 Total Protein 7.2 gm/dL (6.0-8.3) 11/02/17 06:13 Albumin 3.7 gm/dL (4.2-5.5) L 11/02/17 06:13 Globulin 3.5 gm/dL 11/02/17 06:13 Albumin/Globulin Ratio 1.1 (1.0-1.8) 11/02/17 06:13 Triglycerides 196 mg/dL (<150) H 11/02/17 06:13 Lipase 38 U/L (11-82) 11/01/17 08:49 TSH 12.56 uIU/ml (0.34-5.60) H 11/01/17 08:49 Urine Source RANDOM 11/01/17 09:20 Urine Color YELLOW 11/01/17 09:20 Urine Clarity HAZY (CLEAR) 11/01/17 09:20 Urine pH 5.5 (4.6 - 8.0) 11/01/17 09:20 Ur Specific [place] >= 1.030 (1.005-1.030) 11/01/17 09:20 Urine Protein 100 mg/dL (NEGATIVE) H 11/01/17 09:20 Urine Glucose (UA) NEGATIVE mg/dL (NEGATIVE) 11/01/17 09:20 Urine Ketones NEGATIVE mg/dL (NEGATIVE) 11/01/17 09:20 Urine Blood TRACE (NEGATIVE) 11/01/17 09:20 Urine Nitrate NEGATIVE (NEGATIVE) 11/01/17 09:20 Urine Bilirubin SMALL (NEGATIVE) H 11/01/17 09:20 Urine Urobilinogen 0.2 E.U./dL (0.2 - 1.0) 11/01/17 09:20 Ur Leukocyte Esterase SMALL (NEGATIVE) H 11/01/17 09:20 Urine RBC 0-2 /hpf (0-5) H 11/01/17 09:20 Urine WBC 50-100 /hpf (0-5) H 11/01/17 09:20 Ur Epithelial Cells MODERATE /lpf (FEW) 11/01/17 09:20 Urine Bacteria MODERATE /hpf (NONE SEEN) H 11/01/17 09:20 - Physical Exam Vitals and I&O: Vital Signs Temp 97.0 F 11/02/17 08:00 Pulse 82 11/02/17 08:00 Resp 18 11/02/17 08:00 BP 143/74 11/02/17 08:00 Pulse Ox 96 11/02/17 08:00 Intake & Output 11/01/17 11/02/17 11/02/17 18:59 06:59 18:59 Intake Total 300 1000 Output Total 550 250 Balance -250 750 Weight (lbs) 69.4 kg 71.078 kg Intake: Intake, IV Amount 100 1000 D5-0.9%Ns 1,000 ml @ 80 1000 mls/hr IV .[id number] [facility] Rx #:[id number] Meropenem 500 mg In 100 Sodium Chloride 0.9% 100 ml @ 100 mls/hr IV Q12H [facility] Rx#:[id number] Tube Feeding 200 Output: Urine 550 250 Other: # Bowel Movements 0 0 Weight Source Bedscale Bedscale Active Medications: Current Medications Acetaminophen (Tylenol) 650 mg PO Q6H PRN PRN Reason: PAIN OR FEVER >100 Acetaminophen/Hydrocodone Bitart ([place] 5mg/325mg) 1 tab PO Q6H PRN PRN Reason: PAIN/DISCOMFORT Stop: 12/31/17 10:05 Albuterol Sulfate (Albuterol 2.5mg/3ml Neb Ud) 2.5 mg HHN Q4HRT PRN PRN Reason: Shortness of Breath Stop: 12/31/17 11:19 Benztropine Mesylate (Cogentin) 1 mg PO BID CH[facility]AN Stop: 12/31/17 16:59 Last Admin: 11/02/17 09:11 Dose: 1 mg Brimonidine Tartrate (Alphagan 0.2% Oph Soln) 1 drop EACH EYE BID [facility]AN Stop: 12/31/17 16:59 Last Admin: 11/02/17 09:13 Dose: 1 drop Chlorhexidine Gluconate (Peridex) 15 ml MM DAILY [facility]AN Stop: 01/01/18 08:59 Clonazepam (Klonopin) 1 mg PO BID [facility] Stop: 12/31/17 16:59 Last Admin: 11/02/17 09:12 Dose: 1 mg Dorzolamide/Timolol (Cosopt Oph Soln) 1 drop RIGHT EYE BID [facility] Stop: 12/31/17 16:59 Last Admin: 11/02/17 09:13 Dose: 1 drop Escitalopram Oxalate (Lexapro) 20 mg PO DAILY [facility]AN PRN Reason: Protocol Stop: 01/01/18 08:59 Last Admin: 11/02/17 09:11 Dose: 20 mg Fluticasone Propionate (Flonase) 2 spr NS DAILY CH[facility]AN Stop: 01/01/18 08:59 Hydrocortisone (Hydrocortisone 1%) 1 appl TP BID PRN PRN Reason: Rash Stop: 12/31/17 10:05 Dextrose/Sodium Chloride (D5-0.9%Ns) 1,000 mls @ 80 mls/hr IV .[id number] CH[facility]AN Stop: 11/02/17 15:59 Last Admin: 11/02/17 02:37 Dose: 80 mls/hr Meropenem 500 mg/ Sodium (Chloride) 100 mls @ 100 mls/hr IV Q12H [facility]AN Stop: 12/31/17 11:59 Last Admin: 11/02/17 00:00 Dose: 100 mls/hr Multivitamins/Minerals 10 ml/Chromium/Copper/Manganese/Zinc 1 ml/ Amino Acids/ Fat Emulsion Intravenous 1,200 mls @ 50 mls/hr IV .Q24H [facility]AN Stop: 01/01/18 15:59 Dextrose/Sodium Chloride (D5-0.45ns) 1,000 mls @ 30 mls/hr IV .Q24H [facility]AN Stop: 01/01/18 15:59 Lamotrigine (Lamictal) 200 mg PO DAILY [facility]AN Stop: 01/01/18 08:59 Last Admin: 11/02/17 09:11 Dose: 200 mg Lamotrigine (Lamictal) 350 mg PO HS CHANDAN Stop: 12/31/17 20:59 Last Admin: 11/01/17 21:04 Dose: 350 mg Latanoprost (Xalatan 0.005% Oph Soln) 1 drop EACH EYE HS CHANDAN Stop: 12/31/17 20:59 Last Admin: 11/01/17 21:04 Dose: 1 drop Levetiracetam (Keppra) 1,000 mg PO BID [facility]AN Stop: 12/31/17 16:59 Last Admin: 11/02/17 09:12 Dose: 1,000 mg Levothyroxine Sodium (Synthroid) 0.125 mg PO DAILY CH[facility]AN Stop: 01/01/18 08:59 Last Admin: 11/02/17 09:14 Dose: 0.125 mg Methotrexate (Methotrexate) 10 mg PO Tu@0730 [facility] PRN Reason: Protocol Stop: 01/03/18 07:29 Miconazole Nitrate (Micatin 2%) 1 appl TP BID [facility]AN Stop: 12/31/17 16:59 Last Admin: 11/02/17 09:14 Dose: 1 appl Miscellaneous (Clobazam [Onfi]) 1 tab PO BID [facility] Stop: 12/31/17 16:59 Miscellaneous (Eslicarbazepine Acetate [Aptiom]) 600 mg PO 1700 [facility] Stop: 12/31/17 16:59 Miscellaneous (Ppn Per Pharmacy) 1 ea MC PRN PRN PRN Reason: PROTOCOL Stop: 12/31/17 10:15 Pantoprazole Sodium (Protonix) 40 mg IVP BID [facility] Stop: 12/31/17 16:59 Last Admin: 11/02/17 09:13 Dose: 40 mg Petrolatum (Vaseline Oint) 1 appl TP BID [facility]AN Stop: 12/31/17 16:59 Last Admin: 11/02/17 09:25 Dose: 1 appl Quetiapine Fumarate (Seroquel) 25 mg PO BID [facility] PRN Reason: Protocol Stop: 12/31/17 16:59 Last Admin: 11/02/17 09:12 Dose: 25 mg Rifaximin (Xifaxan) 600 mg PO BID [facility] Stop: 12/31/17 16:59 Last Admin: 11/02/17 09:11 Dose: 600 mg Sodium Chloride ([place] Nasal [place]) 1 spr NS QID [facility] Stop: 12/31/17 12:59 Last Admin: 11/02/17 09:15 Dose: 1 spr - Procedures Procedures: Procedures Procedure Code Date BYPASS ILEUM TO CUTANEOUS, OPEN APPROACH [id number] 09/23/17 ILEOSTOMY/JEJUNOSTOMY 61892 09/23/17 INSERTION OF ENDOTRACHEAL AIRWAY INTO TRACHEA, VIA OPENING [id number] 09/23/17 INSERTION OF FEEDING DEVICE INTO STOMACH, OPEN APPROACH [id number] 09/23/17 INTRODUCTION OF NUTRITIONAL INTO CENTRAL VEIN, PERC APPROACH [id number] 09/23/17 PARTIAL REMOVAL OF COLON 18159 09/23/[address] PLACE GASTROSTOMY TUBE 55877 09/23/17 RELEASE PERITONEUM, OPEN APPROACH [id number] 09/23/17 RESECTION OF LARGE INTESTINE, OPEN APPROACH [id number] 09/23/17 RESPIRATORY VENTILATION, LESS THAN 24 CONSECUTIVE HOURS [id number] 09/23/17 Assessment/Plan - Problem List Patient Problems: All Active Problems GASTRIC FEEDING TUBE DISLODGED (Acute)
[2017-11-02] MEDS: Fluticasone Propionate 0.05mg/Actuation 16gm Nasal Spray NS SCH (10:15)
[2017-11-02] MEDS: Meropenem 500 mg in NS 0.9% 100 ML IV SCH ×2 (12:12)
--- NOTE | 2017-11-02 15:45 | Internal Medicine Prog Note ---
Internal Medicine Subjective - Subjective Service Date: 11/02/17 Patient seen and examined:: with staff Patient is:: awake Patient Complaints of:: vomitting Per staff patient has:: poor appetite, tolerating meds Internal Medicine Objective - Results Result Diagrams: 11/01/17 08:49 11/02/17 06:13 Recent Labs: Laboratory Last Values WBC 21.8 Th/cmm (4.8-10.8) H* 11/01/17 08:49 RBC 4.85 Mil/cmm (4.30-5.70) 11/01/17 08:49 Hgb 15.8 gm/dL (12-16) 11/01/17 08:49 Hct 45.4 % (41.0-60) 11/01/17 08:49 MCV 93.6 fl (80-99) 11/01/17 08:49 MCH 32.6 pg (26.0-30.0) H 11/01/17 08:49 MCHC Differential 34.8 pg (28.0-36.0) 11/01/17 08:49 RDW 13.8 % (11.5-20.0) 11/01/17 08:49 Plt Count 383 Th/cmm (150-400) 11/01/17 08:49 MPV 8.0 fl 11/01/17 08:49 Neutrophils (Manual) 81 % (40-80) H 11/01/17 08:49 Lymphocytes 10 % (20-50) L 11/01/17 08:49 Monocytes 9 % (2-10) 11/01/17 08:49 Platelet Estimate ADEQUATE (NORMAL) 11/01/17 08:49 Sodium 142 mEq/L (136-145) 11/02/17 06:13 Potassium 4.8 mEq/L (3.5-5.1) 11/02/17 06:13 Chloride 108 mEq/L (98-107) H 11/02/17 06:13 Carbon Dioxide 26.4 mEq/L (21.0-31.0) 11/02/17 06:13 Anion Gap 12.4 (7.0-16.0) 11/02/17 06:13 BUN 57 mg/dL (7-25) H 11/02/17 06:13 Creatinine 1.5 mg/dL (0.7-1.3) H 11/02/17 06:13 Est GFR ( Amer) > 60.0 ml/min (>90) 11/02/17 06:13 Est GFR (Non-Af Amer) 50.7 ml/min 11/02/17 06:13 BUN/Creatinine Ratio 38.0 11/02/17 06:13 Glucose 112 mg/dL (70-105) H 11/02/17 06:13 POC Glucose 114 MG/DL (70 - 105) H 11/01/17 11:24 Whole Bld Lactic Acid 1.20 mmol/L (0.60-1.99) 11/01/17 08:49 Calcium 10.0 mg/dL (8.6-10.3) 11/02/17 06:13 Phosphorus 2.9 mg/dL (2.5-5.0) 11/02/17 06:13 Magnesium 2.2 mg/dL (1.9-2.7) 11/02/17 06:13 Total Bilirubin 0.6 mg/dL (0.3-1.0) 11/02/17 06:13 AST 29 U/L (13-39) 11/02/17 06:13 ALT 25 U/L (7-52) 11/02/17 06:13 Alkaline Phosphatase 132 U/L (34-104) H 11/02/17 06:13 Troponin I 0.03 ng/mL (0.01-0.05) 11/01/17 08:49 Total Protein 7.2 gm/dL (6.0-8.3) 11/02/17 06:13 Albumin 3.7 gm/dL (4.2-5.5) L 11/02/17 06:13 Globulin 3.5 gm/dL 11/02/17 06:13 Albumin/Globulin Ratio 1.1 (1.0-1.8) 11/02/17 06:13 Triglycerides 196 mg/dL (<150) H 11/02/17 06:13 Lipase 38 U/L (11-82) 11/01/17 08:49 TSH 12.56 uIU/ml (0.34-5.60) H 11/01/17 08:49 Urine Source RANDOM 11/01/17 09:20 Urine Color YELLOW 11/01/17 09:20 Urine Clarity HAZY (CLEAR) 11/01/17 09:20 Urine pH 5.5 (4.6 - 8.0) 11/01/17 09:20 Ur Specific [place] >= 1.030 (1.005-1.030) 11/01/17 09:20 Urine Protein 100 mg/dL (NEGATIVE) H 11/01/17 09:20 Urine Glucose (UA) NEGATIVE mg/dL (NEGATIVE) 11/01/17 09:20 Urine Ketones NEGATIVE mg/dL (NEGATIVE) 11/01/17 09:20 Urine Blood TRACE (NEGATIVE) 11/01/17 09:20 Urine Nitrate NEGATIVE (NEGATIVE) 11/01/17 09:20 Urine Bilirubin SMALL (NEGATIVE) H 11/01/17 09:20 Urine Urobilinogen 0.2 E.U./dL (0.2 - 1.0) 11/01/17 09:20 Ur Leukocyte Esterase SMALL (NEGATIVE) H 11/01/17 09:20 Urine RBC 0-2 /hpf (0-5) H 11/01/17 09:20 Urine WBC 50-100 /hpf (0-5) H 11/01/17 09:20 Ur Epithelial Cells MODERATE /lpf (FEW) 11/01/17 09:20 Urine Bacteria MODERATE /hpf (NONE SEEN) H 11/01/17 09:20 - Physical Exam Vitals and I&O: Vital Signs Temp 97.2 F 11/02/17 11:58 Pulse 87 11/02/17 11:58 Resp 18 11/02/17 12:00 BP 144/78 11/02/17 11:58 Pulse Ox 96 11/02/17 11:58 Intake & Output 11/01/17 11/02/17 11/02/17 18:59 06:59 18:59 Intake Total 300 1100 Output Total 550 250 Balance -250 850 Weight (lbs) 153 lb 156 lb 11.2 oz Intake: Intake, IV Amount 100 1100 D5-0.9%Ns 1,000 ml @ 80 1000 mls/hr IV .[id number] [facility] Rx #:[id number] Meropenem 500 mg In 100 100 Sodium Chloride 0.9% 100 ml @ 100 mls/hr IV Q12H [facility] Rx#:[id number] Tube Feeding 200 Output: Urine 550 250 Other: # Bowel Movements 0 0 Weight Source Bedscale Bedscale Active Medications: Current Medications Acetaminophen (Tylenol) 650 mg PO Q6H PRN PRN Reason: PAIN OR FEVER >100 Acetaminophen/Hydrocodone Bitart ([place] 5mg/325mg) 1 tab PO Q6H PRN PRN Reason: PAIN/DISCOMFORT Stop: 12/31/17 10:05 Albuterol Sulfate (Albuterol 2.5mg/3ml Neb Ud) 2.5 mg HHN Q4HRT PRN PRN Reason: Shortness of Breath Stop: 12/31/17 11:19 Benztropine Mesylate (Cogentin) 1 mg PO BID [facility] Stop: 12/31/17 16:59 Last Admin: 11/02/17 09:11 Dose: 1 mg Brimonidine Tartrate (Alphagan 0.2% Ophth Soln) 1 drop EACH EYE BID [facility] Stop: 12/31/17 16:59 Last Admin: 11/02/17 09:13 Dose: 1 drop Chlorhexidine Gluconate (Peridex) 15 ml MM DAILY [facility] Stop: 01/01/18 08:59 Last Admin: 11/02/17 10:16 Dose: 15 ml Clonazepam (Klonopin) 1 mg PO BID [facility] Stop: 12/31/17 16:59 Last Admin: 11/02/17 09:12 Dose: 1 mg Dorzolamide/Timolol (Cosopt Ophth Soln) 1 drop RIGHT EYE BID [facility] Stop: 12/31/17 16:59 Last Admin: 11/02/17 09:13 Dose: 1 drop Escitalopram Oxalate (Lexapro) 20 mg PO DAILY [facility] PRN Reason: Protocol Stop: 01/01/18 08:59 Last Admin: 11/02/17 09:11 Dose: 20 mg Fluticasone Propionate (Flonase) 2 spr NS DAILY [facility] Stop: 01/01/18 08:59 Last Admin: 11/02/17 10:15 Dose: 2 spr Hydrocortisone (Hydrocortisone 1%) 1 appl TP BID PRN PRN Reason: Rash Stop: 12/31/17 10:05 Meropenem 500 mg/ Sodium (Chloride) 100 mls @ 100 mls/hr IV Q12H [facility] Stop: 12/31/17 11:59 Last Admin: 11/02/17 12:12 Dose: 100 mls/hr Multivitamins/Minerals 10 ml/Chromium/Copper/Manganese/Zinc 1 ml/ Amino Acids/ Fat Emulsion Intravenous 1,200 mls @ 50 mls/hr IV .Q24H [facility] Stop: 01/01/18 15:59 Last Admin: 11/02/17 15:19 Dose: 50 mls/hr Dextrose/Sodium Chloride (D5-0.9%Ns) 1,000 mls @ 30 mls/hr IV .Q24H [facility] Stop: 01/01/18 15:59 Last Admin: 11/02/17 15:36 Dose: 30 mls/hr Lamotrigine (Lamictal) 200 mg PO DAILY [facility] Stop: 01/01/18 08:59 Last Admin: 11/02/17 09:11 Dose: 200 mg Lamotrigine (Lamictal) 350 mg PO HS [facility] Stop: 12/31/17 20:59 Last Admin: 11/01/17 21:04 Dose: 350 mg Latanoprost (Xalatan 0.005% Ophth Soln) 1 drop EACH EYE HS [facility] Stop: 12/31/17 20:59 Last Admin: 11/01/17 21:04 Dose: 1 drop Levetiracetam (Keppra) 1,000 mg PO BID [facility] Stop: 12/31/17 16:59 Last Admin: 11/02/17 09:12 Dose: 1,000 mg Levothyroxine Sodium (Synthroid) 0.125 mg PO DAILY [facility] Stop: 01/01/18 08:59 Last Admin: 11/02/17 09:14 Dose: 0.125 mg Methotrexate (Methotrexate) 10 mg PO Tu@0730 [facility] PRN Reason: Protocol Stop: 01/03/18 07:29 Miconazole Nitrate (Micatin 2%) 1 appl TP BID [facility] Stop: 12/31/17 16:59 Last Admin: 11/02/17 09:14 Dose: 1 appl Miscellaneous (Ppn Per Pharmacy) 1 ea MC PRN PRN PRN Reason: PROTOCOL Stop: 12/31/17 10:15 Pantoprazole Sodium (Protonix) 40 mg IVP BID [facility] Stop: 12/31/17 16:59 Last Admin: 11/02/17 09:13 Dose: 40 mg Patient Own Med Onfi (20mg Tablet) 1 PO BID [facility] Stop: 01/01/18 16:59 Patient Own Med (Aptiom 600mg Tablet) 1 PO QPM [facility] Stop: 01/01/18 16:59 Petrolatum (Vaseline Oint) 1 appl TP BID [facility] Stop: 12/31/17 16:59 Last Admin: 11/02/17 09:25 Dose: 1 appl Quetiapine Fumarate (Seroquel) 25 mg PO BID [facility] PRN Reason: Protocol Stop: 12/31/17 16:59 Last Admin: 11/02/17 09:12 Dose: 25 mg Rifaximin (Xifaxan) 600 mg PO BID [facility] Stop: 12/31/17 16:59 Last Admin: 11/02/17 09:11 Dose: 600 mg Sodium Chloride ([place] Nasal [place]) 1 spr NS QID [facility] Stop: 12/31/17 12:59 Last Admin: 11/02/17 12:13 Dose: 1 spr General: weak HEENT: NC/AT, PERRLA Neck: Supple Lungs: CTAB Cardiovascular: RRR, Normal S1, Normal S2, without murmur Abdomen: soft, +GT, positive bowel sound Extremities: excoriation - Procedures Procedures: Procedures Procedure Code Date BYPASS ILEUM TO CUTANEOUS, OPEN APPROACH [id number] 09/23/17 ILEOSTOMY/JEJUNOSTOMY 00668 09/23/17 INSERTION OF ENDOTRACHEAL AIRWAY INTO TRACHEA, VIA OPENING [id number] 09/23/17 INSERTION OF FEEDING DEVICE INTO STOMACH, OPEN APPROACH [id number] 09/23/17 INTRODUCTION OF NUTRITIONAL INTO CENTRAL VEIN, PERC APPROACH [id number] 09/23/17 PARTIAL REMOVAL OF COLON 81287 09/23/17 PLACE GASTROSTOMY TUBE 49970 09/23/17 RELEASE PERITONEUM, OPEN APPROACH [id number] 09/23/17 RESECTION OF LARGE INTESTINE, OPEN APPROACH [id number] 09/23/17 RESPIRATORY VENTILATION, LESS THAN 24 CONSECUTIVE HOURS [id number] 09/23/17 Internal Medicine Assmt/Plan - Assessment Assessment: sepsis intractable vomiting small bowel obstruction acute renal insufficiency acute uti mr cp seizures generalized contractures - Plan Plan: SMALL BOWEL FOLLOW THRU IN AM CONTINUE WITH PPN FOR NUTRITIONAL SUPPORT MONITOR LYTES CONTINUE CURRENT PLAN OF CARE
[2017-11-02] MEDS ORDERED: DEXT 10% IV SCH (16:00)
[2017-11-02] MEDS ORDERED: D5-0.45NS 1,000 ML IV SCH (16:00)
[2017-11-02] MEDS ORDERED: TRACE ELEMENT IV SCH (16:00)
[2017-11-02] MEDS ORDERED: [UNRECOGNIZED DRUG - OTHER] IV SCH (16:00)
[2017-11-02] MEDS ORDERED: MULTIVITAMIN IV SCH (16:00)
[2017-11-02] MEDS ORDERED: D5-0.9%NS 1,000 ML IV SCH (16:00)
[2017-11-02] MEDS ORDERED: AMINO ACIDS IV SCH (16:00)
[2017-11-02] MEDS: ONFI 20 MG PO SCH (17:06)
[2017-11-02] MEDS: APTIOM 600 MG PO SCH (17:06)
--- NOTE | 2017-11-02 23:50 | Consultation ---
DATE OF CONSULTATION: 11/02/2017 REQUESTING PHYSICIAN: Dr. Zack Rick. REASON FOR CONSULTATION: Ileus versus a small-bowel obstruction. HISTORY OF PRESENT ILLNESS: A 62-year-old male who is in an assisted living center resident with a history of dysphagia and G-tube insertion and chronic constipation, status post partial colectomy with diverting ileostomy. He was transferred to the ER yesterday for dislodged G-tube, but this was replaced successfully by the ER physician and placement confirmed by x-ray. The patient also was noted to have nausea and vomiting for the last day with decreased ileostomy output. The patient had a subsequent CT of the abdomen and pelvis that showed a small-bowel obstruction with transition point in the distal jejunum. The patient was admitted, was noted to have leukocytosis and UTI and started on antibiotics. PAST MEDICAL HISTORY: As above. MEDICATIONS: Here are Tylenol, [place], albuterol, Cogentin, eyedrops, Klonopin, Lexapro, Flonase, lamotrigine, Keppra, Synthroid, methotrexate, PPN, multivitamins, Protonix, Seroquel, rifaximin. ALLERGIES: BUSPAR, VALPROIC ACID and FLUOXETINE. SOCIAL HISTORY: No recent tobacco, alcohol or drugs. FAMILY HISTORY: Noncontributory. REVIEW OF SYSTEMS: A comprehensive 12-point review of systems conducted and is only positive for those signs and symptoms present in history of present illness. PHYSICAL EXAMINATION: VITAL SIGNS: Temperature 97.2, blood pressure is 144/78, pulse is 87, respirations 18. His O2 sat is 96%. GENERAL: The patient is well-developed, well-nourished male who is in no acute distress, nonverbal. HEENT: Sclerae nonicteric. Oropharynx is clear. CARDIOVASCULAR: Regular rate and rhythm. LUNGS: Clear to auscultation bilaterally. ABDOMEN: Soft, nontender, slightly distended, hypoactive bowel sounds. Intact G-tube replacement type in the epigastrium, also intact the right lower quadrant ileostomy site draining bile. EXTREMITIES: Contractured. RECTAL: Deferred. LABORATORY/IMAGING: WBC 21.8, hemoglobin 15.8, platelet count 382. Sodium 142, creatinine 1.5, alkaline phosphatase 132. The liver enzymes normal. Albumin 3.7. Urinalysis shows trace leukocyte esterase, 5-100 wbc's with moderate bacteria. IMPRESSION: 1. Nausea, vomiting and diminished ileostomy output with CT showing small-bowel obstruction; less likely is the possibility of an ileus. There may also be some adhesions. 2. Dysphagia with dislodged G-tube, status post successful replacement. 3. Partial colectomy and ileostomy for chronic constipation. 4. Leukocytosis, rule out urinary tract infection and sepsis. 5. History of mental retardation and cerebral palsy. RECOMMENDATIONS: 1. Await small bowel series. 2. Surgical followup. 3. Ileostomy care. 4. G-tube feedings on hold for now. 5. Continue PPN. 6. Monitor white blood cell count and continue antibiotics. Thank you, Dr. Zack Rick for involving us in the care of your patient. If you have any further questions, please call us. JOB# [id number] MTDD
[2017-11-03] MEDS: Meropenem 500 mg in NS 0.9% 100 ML IV SCH ×2 (00:24→11:54)
[2017-11-03 06:45] LABS: ALBUMIN 3.1 gm/dL (4.2-5.5); ALKALINE PHOSPHATASE 118 U/L (34-104); ANION GAP 11.9 (7.0-16.0); BILIRUBIN,TOTAL 0.5 mg/dL (0.3-1.0); BUN - UREA NITROGEN 45 mg/dL (7-25); CALCIUM SERUM 9.3 mg/dL (8.6-10.3); CARBON DIOXIDE 20.9 mEq/L (21.0-31.0); CHLORIDE 113 mEq/L (98-107); GFR AFRICAN-AMERICAN > 60.0 ml/min (>90); GFR NON AFRICAN-AMERICAN > 60.0 ml/min; GLUCOSE 100 mg/dL (70-105); MAGNESIUM 2.4 mg/dL (1.9-2.7); POTASSIUM SERUM 3.8 mEq/L (3.5-5.1); SGOT 37 U/L (13-39); SGPT/ALT 25 U/L (7-52); SODIUM SERUM 142 mEq/L (136-145); TOTAL PROTEIN,SERUM 6.3 gm/dL (6.0-8.3)
[2017-11-03 07:08] LABS: % BASOPHILS 0.6 % (0.0-2.0); % EOSINOPHILS 6.7 % (0.0-5.0); % LYMPHOCYTES 13.6 % (20.0-50.0); % MONOCYTES 12.2 % (2.0-10.0); % NEUTROPHILS 66.9 % (40.0-80.0); BASOPHILE ABSOLUTE 0.1 Th/cumm (0-0.2); EOSINOPHILE ABSOLUTE 0.7 Th/cmm (0.1-0.4); HEMATOCRIT 38.3 % (41.0-60); HEMOGLOBIN 12.8 gm/dL (12-16); LYMPHOCYTE ABSOLUTE 1.4 Th/cmm (1.5-3.0); MEAN CELL VOLUME 95.1 fl (80-99); MEAN CORPUSCULAR HEMOGLOBIN 31.7 pg (26.0-30.0); MEAN CORPUSCULAR HGB CONC 33.4 pg (28.0-36.0); MEAN PLATELET VOLUME 8.5 fl; MONOCYTE ABSOLUTE 1.2 Th/cmm (0.3-1.0); NEUTROPHILE ABSOLUTE 6.7 Th/cmm (1.8-8.0); PLATELET COUNT 305 Th/cmm (150-400); RED BLOOD COUNT 4.02 Mil/cmm (4.30-5.70); RED CELL DISTRIBUTION WIDTH 14.2 % (11.5-20.0); WHITE BLOOD COUNT 10.1 Th/cmm (4.8-10.8)
[2017-11-03] MEDS: INSULIN ASPART SLIDING SCALE 100 UNITS/ML UNIT SUBQ SCH ×3 (08:09→18:25)
[2017-11-03] MEDS ORDERED: Potassium Phosphate 30 MMOLE in Sodium Chloride 0.9% 250 ML IV ONE (08:30)
[2017-11-03] MEDS: Benztropine 1 MG TAB PO SCH ×2 (09:06→16:34)
[2017-11-03] MEDS: Levetiracetam 500 mg/5mL 5mL UDSyr *for ORAL USE ONLY PO SCH ×2 (09:07→16:38)
[2017-11-03] MEDS: ONFI 20 MG PO SCH ×2 (09:08→16:35)
[2017-11-03] MEDS: Multivitamin w/ Minerals Tab PO SCH (09:08)
[2017-11-03] MEDS: Levothyroxine 0.125 Mg Tab PO SCH (09:08)
[2017-11-03] MEDS: Petrolatum (White) Oint 0.6 Oz Tube TP SCH ×2 (09:13→17:09)
[2017-11-03] MEDS: Fluticasone Propionate 0.05mg/Actuation 16gm Nasal Spray NS SCH (09:13)
[2017-11-03] MEDS: Saline 0.65% Nasal Spray NS SCH ×4 (09:13→22:38)
[2017-11-03] MEDS: Miconazole Nitrate 2% Cream 30gm TP SCH ×2 (09:13→17:09)
--- NOTE | 2017-11-03 11:50 | Operative Report ---
DATE OF SURGERY: 11/03/2017 PROCEDURE: G-tube replacement. DESCRIPTION OF PROCEDURE: The procedure took place at the bedside of the medical surgical unit of [facility]. The existing [place] catheter functioning as the G-tube was removed after its inner balloon was deflated using a syringe. Using the same gastrocutaneous fistula site, an 18-Yi replacement G-tube was inserted into the stomach. Its inner balloon tip was inflated using 20 mL of sterile water. The outer bumper was placed as close to the skin as possible. Overlying dressing was placed. The tube was noted to be in good position. The patient tolerated the procedure well, and no complications are anticipated. RECOMMENDATIONS: 1. We will obtain a contrast KUB to confirm that the G-tube is in position. This study may also be done in conjunction with the patient's small bowel series that the patient is pending today. 2. May use G-tube for water flushes, medications and feedings if x-ray confirms G-tube position in the stomach and if small bowel series does not show bowel obstruction. Thank you Dr. Zack Rick for involving us in the care of your patient. If you have any further questions, please call us. JOB# [id number] MONTRELL
[2017-11-03] MEDS: Chlorhexidine Gluconate 0.12% 480mL Bottle MM SCH (11:54)
--- NOTE | 2017-11-03 12:28 | Diagnostic Imaging Report ---
Upper GI (Limited) HISTORY: Gastrostomy tube placement Water-soluble contrast was instilled through the patient's gastrostomy tube. The exam demonstrates opacification of the gastric lumen. Also noted are multiple loops of dilated small bowel. Changes associated with a distal small bowel obstruction cannot be excluded. Clinical correlation is needed. IMPRESSION: 1. Confirmation of gastrostomy tube within the gastric lumen 2. Multiple loops of dilated small bowel. A distal small bowel obstruction cannot be excluded. Clinical correlation is needed.
--- NOTE | 2017-11-03 14:12 | Internal Medicine Prog Note ---
Internal Medicine Subjective - Subjective Service Date: 11/03/17 Patient is:: awake Patient Complaints of:: vomitting Per staff patient has:: poor appetite, tolerating meds Internal Medicine Objective - Results Result Diagrams: 11/03/17 06:20 11/03/17 05:57 Recent Labs: Laboratory Last Values WBC 10.1 Th/cmm (4.8-10.8) 11/03/17 06:20 RBC 4.02 Mil/cmm (4.30-5.70) L 11/03/17 06:20 Hgb 12.8 gm/dL (12-16) 11/03/17 06:20 Hct 38.3 % (41.0-60) L 11/03/17 06:20 MCV 95.1 fl (80-99) 11/03/17 06:20 MCH 31.7 pg (26.0-30.0) H 11/03/17 06:20 MCHC Differential 33.4 pg (28.0-36.0) 11/03/17 06:20 RDW 14.2 % (11.5-20.0) 11/03/17 06:20 Plt Count 305 Th/cmm (150-400) 11/03/17 06:20 MPV 8.5 fl 11/03/17 06:20 Neutrophils % 66.9 % (40.0-80.0) 11/03/17 06:20 Lymphocytes % 13.6 % (20.0-50.0) L 11/03/17 06:20 Monocytes % 12.2 % (2.0-10.0) H 11/03/17 06:20 Eosinophils % 6.7 % (0.0-5.0) H 11/03/17 06:20 Basophils % 0.6 % (0.0-2.0) 11/03/17 06:20 Neutrophils (Manual) 81 % (40-80) H 11/01/17 08:49 Lymphocytes 10 % (20-50) L 11/01/17 08:49 Monocytes 9 % (2-10) 11/01/17 08:49 Platelet Estimate ADEQUATE (NORMAL) 11/01/17 08:49 Sodium 142 mEq/L (136-145) 11/03/17 05:57 Potassium 3.8 mEq/L (3.5-5.1) 11/03/17 05:57 Chloride 113 mEq/L (98-107) H 11/03/17 05:57 Carbon Dioxide 20.9 mEq/L (21.0-31.0) L 11/03/17 05:57 Anion Gap 11.9 (7.0-16.0) 11/03/17 05:57 BUN 45 mg/dL (7-25) H 11/03/17 05:57 Creatinine 1.0 mg/dL (0.7-1.3) 11/03/17 05:57 Est GFR ( Amer) > 60.0 ml/min (>90) 11/03/17 05:57 Est GFR (Non-Af Amer) > 60.0 ml/min 11/03/17 05:57 BUN/Creatinine Ratio 45.0 11/03/17 05:57 Glucose 100 mg/dL (70-105) 11/03/17 05:57 POC Glucose 92 MG/DL (70 - 105) 11/03/17 11:13 Whole Bld Lactic Acid 1.20 mmol/L (0.60-1.99) 11/01/17 08:49 Calcium 9.3 mg/dL (8.6-10.3) 11/03/17 05:57 Phosphorus 2.0 mg/dL (2.5-5.0) L 11/03/17 05:57 Magnesium 2.4 mg/dL (1.9-2.7) 11/03/17 05:57 Total Bilirubin 0.5 mg/dL (0.3-1.0) 11/03/17 05:57 AST 37 U/L (13-39) 11/03/17 05:57 ALT 25 U/L (7-52) 11/03/17 05:57 Alkaline Phosphatase 118 U/L (34-104) H 11/03/17 05:57 Troponin I 0.03 ng/mL (0.01-0.05) 11/01/17 08:49 Total Protein 6.3 gm/dL (6.0-8.3) 11/03/17 05:57 Albumin 3.1 gm/dL (4.2-5.5) L 11/03/17 05:57 Globulin 3.2 gm/dL 11/03/17 05:57 Albumin/Globulin Ratio 1.0 (1.0-1.8) 11/03/17 05:57 Triglycerides 196 mg/dL (<150) H 11/02/17 06:13 Cholesterol 158 mg/dL (<200) 11/03/17 06:20 Lipase 38 U/L (11-82) 11/01/17 08:49 TSH 12.56 uIU/ml (0.34-5.60) H 11/01/17 08:49 Urine Source RANDOM 11/01/17 09:20 Urine Color YELLOW 11/01/17 09:20 Urine Clarity HAZY (CLEAR) 11/01/17 09:20 Urine pH 5.5 (4.6 - 8.0) 11/01/17 09:20 Ur Specific [place] >= 1.030 (1.005-1.030) 11/01/17 09:20 Urine Protein 100 mg/dL (NEGATIVE) H 11/01/17 09:20 Urine Glucose (UA) NEGATIVE mg/dL (NEGATIVE) 11/01/17 09:20 Urine Ketones NEGATIVE mg/dL (NEGATIVE) 11/01/17 09:20 Urine Blood TRACE (NEGATIVE) 11/01/17 09:20 Urine Nitrate NEGATIVE (NEGATIVE) 11/01/17 09:20 Urine Bilirubin SMALL (NEGATIVE) H 11/01/17 09:20 Urine Urobilinogen 0.2 E.U./dL (0.2 - 1.0) 11/01/17 09:20 Ur Leukocyte Esterase SMALL (NEGATIVE) H 11/01/17 09:20 Urine RBC 0-2 /hpf (0-5) H 11/01/17 09:20 Urine WBC 50-100 /hpf (0-5) H 11/01/17 09:20 Ur Epithelial Cells MODERATE /lpf (FEW) 11/01/17 09:20 Urine Bacteria MODERATE /hpf (NONE SEEN) H 11/01/17 09:20 - Physical Exam Vitals and I&O: Vital Signs Temp 97.5 F 11/03/17 12:00 Pulse 71 11/03/17 12:00 Resp 18 11/03/17 12:00 BP 149/80 11/03/17 12:00 Pulse Ox 96 11/03/17 12:00 Intake & Output 11/02/17 11/03/17 11/03/17 18:59 06:59 18:59 Intake Total 100 100 Output Total 200 Balance 100 -100 Weight (lbs) 151 lb Intake: Intake, IV Amount 100 100 Meropenem 500 mg In 100 100 Sodium Chloride 0.9% 100 ml @ 100 mls/hr IV Q12H [facility] Rx#:[id number] Output: Urine 200 Other: Weight Source Bedscale Active Medications: Current Medications Acetaminophen (Tylenol) 650 mg PO Q6H PRN PRN Reason: PAIN OR FEVER >100 Acetaminophen/Hydrocodone Bitart ([place] 5mg/325mg) 1 tab PO Q6H PRN PRN Reason: PAIN/DISCOMFORT Stop: 12/31/17 10:05 Albuterol Sulfate (Albuterol 2.5mg/3ml Neb Ud) 2.5 mg HHN Q4HRT PRN PRN Reason: Shortness of Breath Stop: 12/31/17 11:19 Benztropine Mesylate (Cogentin) 1 mg PO BID [facility] Stop: 12/31/17 16:59 Last Admin: 11/03/17 09:06 Dose: Not Given Brimonidine Tartrate (Alphagan 0.2% Ophth Soln) 1 drop EACH EYE BID [facility] Stop: 12/31/17 16:59 Last Admin: 11/03/17 09:14 Dose: 1 drop Chlorhexidine Gluconate (Peridex) 15 ml MM DAILY [facility] Stop: 01/02/18 09:59 Last Admin: 11/03/17 11:54 Dose: 15 ml Clonazepam (Klonopin) 1 mg PO BID [facility] Stop: 12/31/17 16:59 Last Admin: 11/03/17 09:06 Dose: Not Given Dorzolamide/Timolol (Cosopt Ophth Soln) 1 drop RIGHT EYE BID [facility] Stop: 12/31/17 16:59 Last Admin: 11/03/17 09:15 Dose: 1 drop Escitalopram Oxalate (Lexapro) 20 mg PO DAILY [facility] PRN Reason: Protocol Stop: 01/01/18 08:59 Last Admin: 11/03/17 09:07 Dose: Not Given Fluticasone Propionate (Flonase) 2 spr NS DAILY [facility] Stop: 01/01/18 08:59 Last Admin: 11/03/17 09:13 Dose: 2 spr Hydrocortisone (Hydrocortisone 1%) 1 appl TP BID PRN PRN Reason: Rash Stop: 12/31/17 10:05 Meropenem 500 mg/ Sodium (Chloride) 100 mls @ 100 mls/hr IV Q12H [facility] Stop: 12/31/17 11:59 Last Admin: 11/03/17 11:54 Dose: 100 mls/hr Multivitamins/Minerals 10 ml/Chromium/Copper/Manganese/Zinc 1 ml/ Amino Acids/ Fat Emulsion Intravenous 1,200 mls @ 50 mls/hr IV .Q24H [facility] Stop: 11/03/17 15:59 Last Admin: 11/02/17 15:19 Dose: 50 mls/hr Dextrose/Sodium Chloride (D5-0.9%Ns) 1,000 mls @ 30 mls/hr IV .Q24H [facility] Stop: 11/03/17 15:59 Last Admin: 11/02/17 15:36 Dose: 30 mls/hr Potassium Phosphate 30 mmole/ (Sodium Chloride) 260 mls @ 42 mls/hr IV ONCE ONE Stop: 11/03/17 14:41 Last Admin: 11/03/17 09:17 Dose: 42 mls/hr Multivitamins/Minerals 10 ml/Dextrose/ Amino Acids/Electrolytes/ Fat Emulsion Intravenous 1,440 mls @ 60 mls/hr IV .Q24H [facility] Stop: 01/02/18 15:59 Dextrose/Sodium Chloride (D5-0.9%Ns) 1,000 mls @ 20 mls/hr IV .Q24H [facility] Stop: 01/02/18 15:59 Insulin Aspart (Novolog Insulin Sliding Scale) 0 units SUBQ Q6HR [facility] PRN Reason: Protocol Stop: 01/02/18 07:59 Last Admin: 11/03/17 12:07 Dose: Not Given Lamotrigine (Lamictal) 200 mg PO DAILY [facility] Stop: 01/01/18 08:59 Last Admin: 11/03/17 09:07 Dose: Not Given Lamotrigine (Lamictal) 350 mg PO HS [facility] Stop: 12/31/17 20:59 Last Admin: 11/02/17 20:21 Dose: 350 mg Latanoprost (Xalatan 0.005% Ophth Soln) 1 drop EACH EYE HS [facility] Stop: 12/31/17 20:59 Last Admin: 11/02/17 20:22 Dose: 1 drop Levetiracetam (Keppra) 1,000 mg PO BID [facility] Stop: 12/31/17 16:59 Last Admin: 11/03/17 09:07 Dose: Not Given Levothyroxine Sodium (Synthroid) 0.125 mg PO DAILY [facility] Stop: 01/01/18 08:59 Last Admin: 11/03/17 09:08 Dose: Not Given Methotrexate (Methotrexate) 10 mg PO Tu@0730 [facility] PRN Reason: Protocol Stop: 01/03/18 07:29 Miconazole Nitrate (Micatin 2%) 1 appl TP BID [facility] Stop: 12/31/17 16:59 Last Admin: 11/03/17 09:13 Dose: 1 appl Miscellaneous (Ppn Per Pharmacy) 1 ea MC PRN PRN PRN Reason: PROTOCOL Stop: 12/31/17 10:15 Pantoprazole Sodium (Protonix) 40 mg IVP BID [facility] Stop: 12/31/17 16:59 Last Admin: 11/03/17 09:13 Dose: 40 mg Patient Own Med Onfi (20mg Tablet) 1 PO BID [facility] Stop: 01/01/18 16:59 Last Admin: 11/03/17 09:08 Dose: Not Given Patient Own Med (Aptiom 600mg Tablet) 1 PO QPM [facility] Stop: 01/01/18 16:59 Last Admin: 11/02/17 17:06 Dose: 1 Petrolatum (Vaseline Oint) 1 appl TP BID [facility] Stop: 12/31/17 16:59 Last Admin: 11/03/17 09:13 Dose: 1 appl Quetiapine Fumarate (Seroquel) 25 mg PO BID [facility] PRN Reason: Protocol Stop: 12/31/17 16:59 Last Admin: 11/03/17 09:08 Dose: Not Given Rifaximin (Xifaxan) 600 mg PO BID [facility] Stop: 12/31/17 16:59 Last Admin: 11/03/17 09:08 Dose: Not Given Sodium Chloride ([place] Nasal [place]) 1 spr NS QID CHANDAN Stop: 12/31/17 12:59 Last Admin: 11/03/17 13:54 Dose: 1 spr General: weak HEENT: NC/AT, PERRLA Neck: Supple Lungs: CTAB Cardiovascular: RRR, Normal S1, Normal S2, without murmur Abdomen: soft, +GT, positive bowel sound Extremities: excoriation - Procedures Procedures: Procedures Procedure Code Date BYPASS ILEUM TO CUTANEOUS, OPEN APPROACH [id number] 09/23/17 CHANGE FEEDING DEVICE IN UP INTEST TRACT, INSTRUMENT INSTALLER APPROACH [id number] 11/01/17 CHANGE GASTROSTOMY TUBE 63867 11/01/17 ILEOSTOMY/JEJUNOSTOMY 96384 09/23/17 INSERTION OF ENDOTRACHEAL AIRWAY INTO TRACHEA, VIA OPENING [id number] 09/23/17 INSERTION OF FEEDING DEVICE INTO STOMACH, OPEN APPROACH [id number] 09/23/17 INTRODUCTION OF NUTRITIONAL INTO CENTRAL VEIN, PERC APPROACH [id number] 09/23/17 PARTIAL REMOVAL OF COLON [id number] 09/23/[address] GASTROSTOMY TUBE 89800 09/23/17 RELEASE PERITONEUM, OPEN APPROACH [id number] 09/23/17 RESECTION OF LARGE INTESTINE, OPEN APPROACH [id number] 09/23/17 RESPIRATORY VENTILATION, LESS THAN 24 CONSECUTIVE HOURS [id number] 09/23/17 Internal Medicine Assmt/Plan - Assessment Assessment: s/p peg placement sepsis intractable vomiting small bowel obstruction acute renal insufficiency acute uti mr cp seizures generalized contractures - Plan Plan: nurses to do oral care CONTINUE WITH PPN FOR NUTRITIONAL SUPPORT MONITOR LYTES CONTINUE CURRENT PLAN OF CARE
--- NOTE | 2017-11-03 14:42 | Diagnostic Imaging Report ---
Small bowel follow-through HISTORY: Pain, obstruction Water-soluble contrast was instilled through the patient's gastrostomy tube. There is a relatively small amount of contrast that passes from the stomach into the proximal small bowel. Marked dilatation of additional small bowel loops. After 2.5 hours, the patient vomited majority of contrast. IMPRESSION: 1. Incomplete examination as the patient was unable to tolerate passage of contrast through the small bowel. Marked generalized small bowel dilatation consistent with a distal small bowel obstruction.
[2017-11-03] MEDS: APTIOM 600 MG PO SCH (16:35)
[2017-11-03] MEDS: TPN 10%-70% CUSTOM IV SCH (17:06)
[2017-11-03] MEDS: D5-0.9%NS 1,000 ML IV SCH (17:10)
[2017-11-04] MEDS: Meropenem 500 mg in NS 0.9% 100 ML IV SCH ×3 (01:00→23:41)
[2017-11-04 06:06] LABS: % BASOPHILS 0.3 % (0.0-2.0); % EOSINOPHILS 3.6 % (0.0-5.0); % LYMPHOCYTES 10.6 % (20.0-50.0); % MONOCYTES 12.4 % (2.0-10.0); % NEUTROPHILS 73.1 % (40.0-80.0); EOSINOPHILE ABSOLUTE 0.4 Th/cmm (0.1-0.4); HEMATOCRIT 40.5 % (41.0-60); HEMOGLOBIN 13.7 gm/dL (12-16); LYMPHOCYTE ABSOLUTE 1.2 Th/cmm (1.5-3.0); MEAN CELL VOLUME 94.9 fl (80-99); MEAN CORPUSCULAR HGB CONC 33.8 pg (28.0-36.0); MEAN PLATELET VOLUME 8.1 fl; MONOCYTE ABSOLUTE 1.4 Th/cmm (0.3-1.0); NEUTROPHILE ABSOLUTE 8.6 Th/cmm (1.8-8.0); PLATELET COUNT 310 Th/cmm (150-400); RED BLOOD COUNT 4.27 Mil/cmm (4.30-5.70); RED CELL DISTRIBUTION WIDTH 13.9 % (11.5-20.0); WHITE BLOOD COUNT 11.6 Th/cmm (4.8-10.8)
[2017-11-04] MEDS: INSULIN ASPART SLIDING SCALE 100 UNITS/ML UNIT SUBQ SCH ×4 (06:06→18:35)
[2017-11-04 06:14] LABS: PROTHROMBIN TIME (TEST) 10.4 SECONDS (9.5-11.5)
[2017-11-04 06:20] LABS: ALB/GLOB RATIO 1.2 (1.0-1.8); ALBUMIN 3.8 gm/dL (4.2-5.5); ALKALINE PHOSPHATASE 140 U/L (34-104); ANION GAP 12.2 (7.0-16.0); BILIRUBIN,TOTAL 0.5 mg/dL (0.3-1.0); BUN - UREA NITROGEN 34 mg/dL (7-25); CALCIUM SERUM 9.8 mg/dL (8.6-10.3); CARBON DIOXIDE 25.7 mEq/L (21.0-31.0); CHLORIDE 112 mEq/L (98-107); CREATININE - SERUM 0.9 mg/dL (0.7-1.3); GFR AFRICAN-AMERICAN > 60.0 ml/min (>90); GFR NON AFRICAN-AMERICAN > 60.0 ml/min; GLUCOSE 112 mg/dL (70-105); MAGNESIUM 1.9 mg/dL (1.9-2.7); PHOSPHOROUS 2.6 mg/dL (2.5-5.0); POTASSIUM SERUM 3.9 mEq/L (3.5-5.1); SGOT 38 U/L (13-39); SGPT/ALT 40 U/L (7-52); SODIUM SERUM 146 mEq/L (136-145); TOTAL PROTEIN,SERUM 6.9 gm/dL (6.0-8.3)
--- NOTE | 2017-11-04 07:49 | General Progress Note ---
Subjective - Review of Systems Service Date: 11/04/17 Events since last encounter: per info from nursing patient continues to have vomiting, unable to use GT for feeding SBO series possible obstruction conservator has signed consent for surgery Objective - Results Result Diagrams: 11/04/17 05:40 11/04/17 05:40 Recent Labs: Laboratory Last Values WBC 11.6 Th/cmm (4.8-10.8) H 11/04/17 05:40 RBC 4.27 Mil/cmm (4.30-5.70) L 11/04/17 05:40 Hgb 13.7 gm/dL (12-16) 11/04/17 05:40 Hct 40.5 % (41.0-60) L 11/04/17 05:40 MCV 94.9 fl (80-99) 11/04/17 05:40 MCH 32.0 pg (26.0-30.0) H 11/04/17 05:40 MCHC Differential 33.8 pg (28.0-36.0) 11/04/17 05:40 RDW 13.9 % (11.5-20.0) 11/04/17 05:40 Plt Count 310 Th/cmm (150-400) 11/04/17 05:40 MPV 8.1 fl 11/04/17 05:40 Neutrophils % 73.1 % (40.0-80.0) 11/04/17 05:40 Lymphocytes % 10.6 % (20.0-50.0) L 11/04/17 05:40 Monocytes % 12.4 % (2.0-10.0) H 11/04/17 05:40 Eosinophils % 3.6 % (0.0-5.0) 11/04/17 05:40 Basophils % 0.3 % (0.0-2.0) 11/04/17 05:40 Neutrophils (Manual) 81 % (40-80) H 11/01/17 08:49 Lymphocytes 10 % (20-50) L 11/01/17 08:49 Monocytes 9 % (2-10) 11/01/17 08:49 Platelet Estimate ADEQUATE (NORMAL) 11/01/17 08:49 PT 10.4 SECONDS (9.5-11.5) 11/04/17 05:40 INR 1.00 (0.5-1.4) 05/01/18 05:40 PTT (Actin FS) 22.4 SECONDS (26.0-38.0) L 11/04/17 05:40 Sodium 146 mEq/L (136-145) H 11/04/17 05:40 Potassium 3.9 mEq/L (3.5-5.1) 11/04/17 05:40 Chloride 112 mEq/L (98-107) H 11/04/17 05:40 Carbon Dioxide 25.7 mEq/L (21.0-31.0) 11/04/17 05:40 Anion Gap 12.2 (7.0-16.0) 11/04/17 05:40 BUN 34 mg/dL (7-25) H 11/04/17 05:40 Creatinine 0.9 mg/dL (0.7-1.3) 11/04/17 05:40 Est GFR ( Amer) > 60.0 ml/min (>90) 11/04/17 05:40 Est GFR (Non-Af Amer) > 60.0 ml/min 11/04/17 05:40 BUN/Creatinine Ratio 37.8 11/04/17 05:40 Glucose 112 mg/dL (70-105) H 11/04/17 05:40 POC Glucose 113 MG/DL (70 - 105) H 11/04/17 05:58 Whole Bld Lactic Acid 1.20 mmol/L (0.60-1.99) 11/01/17 08:49 Calcium 9.8 mg/dL (8.6-10.3) 11/04/17 05:40 Phosphorus 2.6 mg/dL (2.5-5.0) 11/04/17 05:40 Magnesium 1.9 mg/dL (1.9-2.7) 11/04/17 05:40 Total Bilirubin 0.5 mg/dL (0.3-1.0) 11/04/17 05:40 AST 38 U/L (13-39) 11/04/17 05:40 ALT 40 U/L (7-52) 11/04/17 05:40 Alkaline Phosphatase 140 U/L (34-104) H 11/04/17 05:40 Troponin I 0.03 ng/mL (0.01-0.05) 11/01/17 08:49 Total Protein 6.9 gm/dL (6.0-8.3) 11/04/17 05:40 Albumin 3.8 gm/dL (4.2-5.5) L 11/04/17 05:40 Globulin 3.1 gm/dL 11/04/17 05:40 Albumin/Globulin Ratio 1.2 (1.0-1.8) 11/04/17 05:40 Triglycerides 196 mg/dL (<150) H 11/02/17 06:13 Cholesterol 158 mg/dL (<200) 11/03/17 06:20 Lipase 38 U/L (11-82) 11/01/17 08:49 TSH 12.56 uIU/ml (0.34-5.60) H 11/01/17 08:49 Urine Source RANDOM 11/01/17 09:20 Urine Color YELLOW 11/01/17 09:20 Urine Clarity HAZY (CLEAR) 11/01/17 09:20 Urine pH 5.5 (4.6 - 8.0) 11/01/17 09:20 Ur Specific [place] >= 1.030 (1.005-1.030) 11/01/17 09:20 Urine Protein 100 mg/dL (NEGATIVE) H 11/01/17 09:20 Urine Glucose (UA) NEGATIVE mg/dL (NEGATIVE) 11/01/17 09:20 Urine Ketones NEGATIVE mg/dL (NEGATIVE) 11/01/17 09:20 Urine Blood TRACE (NEGATIVE) 11/01/17 09:20 Urine Nitrate NEGATIVE (NEGATIVE) 11/01/17 09:20 Urine Bilirubin SMALL (NEGATIVE) H 11/01/17 09:20 Urine Urobilinogen 0.2 E.U./dL (0.2 - 1.0) 11/01/17 09:20 Ur Leukocyte Esterase SMALL (NEGATIVE) H 11/01/17 09:20 Urine RBC 0-2 /hpf (0-5) H 11/01/17 09:20 Urine WBC 50-100 /hpf (0-5) H 11/01/17 09:20 Ur Epithelial Cells MODERATE /lpf (FEW) 11/01/17 09:20 Urine Bacteria MODERATE /hpf (NONE SEEN) H 11/01/17 09:20 - Physical Exam Vitals and I&O: Vital Signs Temp 96.7 F 11/04/17 07:43 Pulse 71 11/04/17 07:43 Resp 19 11/04/17 07:43 BP 162/92 11/04/17 07:43 Pulse Ox 94 11/04/17 07:43 Intake & Output 11/03/17 11/04/17 11/04/17 18:59 06:59 18:59 Intake Total 100 1220 Output Total 2650 Balance 100 -1430 Weight (lbs) 68.039 kg Intake: Intake, IV Amount 100 Meropenem 500 mg In 100 Sodium Chloride 0.9% 100 ml @ 100 mls/hr IV Q12H [facility] Rx#:[id number] TPN/PPN 1220 Output: Gastric Drainage 550 Urine 1400 Stool 700 Other: Weight Source Bedscale Active Medications: Current Medications Acetaminophen (Tylenol) 650 mg PO Q6H PRN PRN Reason: PAIN OR FEVER >100 Acetaminophen/Hydrocodone Bitart ([place] 5mg/325mg) 1 tab PO Q6H PRN PRN Reason: PAIN/DISCOMFORT Stop: 12/31/17 10:05 Albuterol Sulfate (Albuterol 2.5mg/3ml Neb Ud) 2.5 mg HHN Q4HRT PRN PRN Reason: Shortness of Breath Stop: 12/31/17 11:19 Benztropine Mesylate (Cogentin) 1 mg PO BID [facility] Stop: 12/31/17 16:59 Last Admin: 11/03/17 16:34 Dose: Not Given Brimonidine Tartrate (Alphagan 0.2% Ophth Soln) 1 drop EACH EYE BID [facility] Stop: 12/31/17 16:59 Last Admin: 11/03/17 17:09 Dose: 1 drop Chlorhexidine Gluconate (Peridex) 15 ml MM DAILY [facility] Stop: 01/02/18 09:59 Last Admin: 11/03/17 11:54 Dose: 15 ml Clonazepam (Klonopin) 1 mg PO BID [facility] Stop: 12/31/17 16:59 Last Admin: 11/03/17 16:35 Dose: Not Given Dorzolamide/Timolol (Cosopt Ophth Soln) 1 drop RIGHT EYE BID [facility] Stop: 12/31/17 16:59 Last Admin: 11/03/17 17:09 Dose: 1 drop Escitalopram Oxalate (Lexapro) 20 mg PO DAILY [facility] PRN Reason: Protocol Stop: 01/01/18 08:59 Last Admin: 11/03/17 09:07 Dose: Not Given Fluticasone Propionate (Flonase) 2 spr NS DAILY [facility] Stop: 01/01/18 08:59 Last Admin: 11/03/17 09:13 Dose: 2 spr Hydrocortisone (Hydrocortisone 1%) 1 appl TP BID PRN PRN Reason: Rash Stop: 12/31/17 10:05 Meropenem 500 mg/ Sodium (Chloride) 100 mls @ 100 mls/hr IV Q12H [facility] Stop: 12/31/17 11:59 Last Admin: 11/04/17 01:00 Dose: 100 mls/hr Multivitamins/Minerals 10 ml/Dextrose/ Amino Acids/Electrolytes/ Fat Emulsion Intravenous 1,440 mls @ 60 mls/hr IV .Q24H [facility] Stop: 01/02/18 15:59 Last Admin: 11/03/17 17:06 Dose: 60 mls/hr Dextrose/Sodium Chloride (D5-0.9%Ns) 1,000 mls @ 20 mls/hr IV .Q24H [facility] Stop: 01/02/18 15:59 Last Admin: 11/03/17 17:10 Dose: 20 mls/hr Levetiracetam 1,000 mg/ Sodium (Chloride) 110 mls @ 200 mls/hr IV Q12H [facility] Stop: 01/02/18 20:59 Last Admin: 11/03/17 22:00 Dose: 200 mls/hr Insulin Aspart (Novolog Insulin Sliding Scale) 0 units SUBQ Q6HR [facility] PRN Reason: Protocol Stop: 01/02/18 07:59 Last Admin: 11/04/17 06:06 Dose: Not Given Lamotrigine (Lamictal) 200 mg PO DAILY [facility] Stop: 01/01/18 08:59 Last Admin: 11/03/17 09:07 Dose: Not Given Lamotrigine (Lamictal) 350 mg PO HS [facility] Stop: 12/31/17 20:59 Last Admin: 11/03/17 22:35 Dose: Not Given Latanoprost (Xalatan 0.005% Ophth Soln) 1 drop EACH EYE HS [facility] Stop: 12/31/17 20:59 Last Admin: 11/03/17 22:44 Dose: 1 drop Levothyroxine Sodium (Synthroid) 0.125 mg PO DAILY [facility] Stop: 01/01/18 08:59 Last Admin: 11/03/17 09:08 Dose: Not Given Methotrexate (Methotrexate) 10 mg PO Tu@0730 [facility] PRN Reason: Protocol Stop: 01/03/18 07:29 Last Admin: 11/04/17 07:42 Dose: Not Given Miconazole Nitrate (Micatin 2%) 1 appl TP BID [facility] Stop: 12/31/17 16:59 Last Admin: 11/03/17 17:09 Dose: 1 appl Miscellaneous (Ppn Per Pharmacy) 1 ea MC PRN PRN PRN Reason: PROTOCOL Stop: 12/31/17 10:15 Pantoprazole Sodium (Protonix) 40 mg IVP BID [facility] Stop: 12/31/17 16:59 Last Admin: 11/03/17 17:08 Dose: 40 mg Patient Own Med Onfi (20mg Tablet) 1 PO BID [facility] Stop: 01/01/18 16:59 Last Admin: 11/03/17 16:35 Dose: Not Given Patient Own Med (Aptiom 600mg Tablet) 1 PO QPM [facility] Stop: 01/01/18 16:59 Last Admin: 11/03/17 16:35 Dose: Not Given Petrolatum (Vaseline Oint) 1 appl TP BID [facility] Stop: 12/31/17 16:59 Last Admin: 11/03/17 17:09 Dose: 1 appl Quetiapine Fumarate (Seroquel) 25 mg PO BID [facility] PRN Reason: Protocol Stop: 12/31/17 16:59 Last Admin: 11/03/17 16:35 Dose: Not Given Rifaximin (Xifaxan) 600 mg PO BID [facility] Stop: 12/31/17 16:59 Last Admin: 11/03/17 16:36 Dose: Not Given Sodium Chloride ([place] Nasal [place]) 1 spr NS QID [facility] Stop: 12/31/17 12:59 Last Admin: 11/03/17 22:38 Dose: 1 spr - Procedures Procedures: Procedures Procedure Code Date BYPASS ILEUM TO CUTANEOUS, OPEN APPROACH [id number] 09/23/17 CHANGE FEEDING DEVICE IN UP INTEST TRACT, MIXING AND DISPENSING SUPERVISOR APPROACH [id number] 11/01/17 CHANGE GASTROSTOMY TUBE 89708 11/01/17 ILEOSTOMY/JEJUNOSTOMY 28700 09/23/17 INSERTION OF ENDOTRACHEAL AIRWAY INTO TRACHEA, VIA OPENING [id number] 09/23/17 INSERTION OF FEEDING DEVICE INTO STOMACH, OPEN APPROACH [id number] 09/23/17 INTRODUCTION OF NUTRITIONAL INTO CENTRAL VEIN, PERC APPROACH [id number] 09/23/17 PARTIAL REMOVAL OF COLON 57306 09/23/[address] PL[address] GASTROSTOMY TUBE 12210 09/23/17 RELEASE PERITONEUM, OPEN APPROACH [id number] 09/23/17 RESECTION OF LARGE INTESTINE, OPEN APPROACH [id number] 09/23/17 RESPIRATORY VENTILATION, LESS THAN 24 CONSECUTIVE HOURS [id number] 09/23/17 Assessment/Plan - Problem List Patient Problems: All Active Problems GASTRIC FEEDING TUBE DISLODGED (Acute) Nutritional Asmnt/Malnutr-PDOC - Dietary Evaluation Malnutrition Findings (Please click <Entered> for more info): Nutritional Asmnt/Malnutrition Start: 11/03/17 14: 15 Text: Status: Complete Freq: Document 11/03/17 14:15 HEN (Rec: 11/03/17 14:45 [place] [id number]) Nutritional Asmnt/Malnutrition Patient General Information Nutritional Screening High Risk Consult Diagnosis UTI Pertinent Medical Hx/Surgical Hx MR, cerebral palsy, seizure, colectomy, generalized contractures, ileostomy Subjective Information Consult received for freddy cox. Pt had gtube replacement this morning. Pt now on TPN. May start tube feeding if small bowel series does not show bowel obstruction per MD note. Current Diet Order/ Nutrition Support TPN D10% A4.25%, lipid 20% 150ml at 50ml/hr providing 912kcal, 51g protein Pertinent Medications D5-0.9%ns, novolog, synthroid, k phos Pertinent Labs 11/03 cl 113, Bun 45, glucose 100, POC 92 Nutritional Hx/Data Height 1.78 m Height (Calculated Centimeters) 177.8 Current Weight (lbs) 68.492 kg Weight (Calculated Kilograms) 68.5 Weight (Calculated Grams) 60697.4 [place] Body Weight 166 Body Mass Index (BMI) 21.7 Weight Status Approriate GI Symptoms GI Symptoms None Last BM 0 Difficult in: None Skin Integrity/Comment: rash to right and left foot, scar to abdomen Current %PO Good (75-100%) Estimated Nutritional Goals BEE in Kcals: Using Current wt Calories/Kcals/Kg 23-27 Kcals Calculated 7266-1561 Protein: Using Current wt Protein g/k-1.1 Protein Calculated 69-76 Fluid: ml 1587-1863ml 91ml/kcal) Nutritional Problem No current Nutrition Prob Problem altered GI function Etiology possible small bowel obstruction Signs/Symptoms: pt on TPN Malnutrition Alert Protein-Calorie Malnutrition N/A Is there a minimum of two criteria No selected? Query Text:Check all the applicable criteria. A minimum of two criteria are recommended for diagnosis of either severe or non-severe malnutrition. Intervention/Recommendation Comments 1. If continue with TPN, recommend D12%, AA4%, lipid 20 % 200ml at 80ml/hr. it provides 1555kcal, 250CHO (2. 5mg/kg/min), 76g protein. 2. If TF needed, recommend Fibersource HN starting at 20ml/hr for first 24hr. If tolerated, increase to goal rate of 55ml and wean TPN. 3. Monitor nutrition support, wt, skin integrity and labs 3. F/U as high risk in 2-3 days, 5/2-5/3 Expected Outcomes/Goals Expected Outcomes/Goals 1. Pt to meet at least 75% of nutritional needs via nutrition support with tolerance 2. Wt stability, skin to remain intact, labs to approach WNL.
[2017-11-04] MEDS ORDERED: Propofol **SURGERY USE ONLY** 20 ML IV ONE (08:26)
[2017-11-04] MEDS ORDERED: Lidocaine 2% Vial 20 mL Vial ONE (08:26)
[2017-11-04] MEDS ORDERED: Morphine Sulfate 4 mg/mL 1mL Syr ONE (08:56)
[2017-11-04] MEDS: Chlorhexidine Gluconate 0.12% 480mL Bottle MM SCH (08:56)
[2017-11-04] MEDS: Benztropine 1 MG TAB PO SCH ×2 (08:56→17:23)
[2017-11-04] MEDS: Multivitamin w/ Minerals Tab PO SCH (08:57)
[2017-11-04] MEDS: Levothyroxine 0.125 Mg Tab PO SCH (08:57)
[2017-11-04] MEDS: ONFI 20 MG PO SCH ×2 (08:57→17:23)
[2017-11-04] MEDS ORDERED: Neostigmine 10mg/10mL Vial ONE (09:07)
--- NOTE | 2017-11-04 09:09 | Consultation ---
DATE OF CONSULTATION: 11/02/2017 SURGICAL CONSULTATION REFERRING PHYSICIAN: Dr. Rick. REASON FOR CONSULTATION: Bowel obstruction. Thank you for referring this patient to me. HISTORY OF PRESENT ILLNESS: This is a 62-year-old male with known history of cerebral palsy, seizure disorder, and recent surgery for colon resection. We have no report on the exact pathology of this surgery, was malignant or not and an ileostomy is present in the right lower quadrant. There is a G-tube in place, which he got displaced and was replaced on this admission. CT scan of the abdomen, however, showed bowel obstruction and a small bowel series and follow through shows a strong possibility of obstruction in the distal jejunum. The patient has persistently vomited on this hospital stay and a G-tube has not been used for feeding because of this, LABORATORY STUDIES: The CBC is essentially normal. The chemistry, elevation of the BUN to 45 and creatinine to 1.5. A CT scan on admission as mentioned showed possible bowel obstruction corroborated by small bowel series. PHYSICAL EXAMINATION: The patient does answer to questions relevant to pain. Abdomen, there is a recent scar which is healing except for one area that is partially opened well with no drainage. He has a G-tube in place and an ileostomy in the right lower quadrant. There is moderate tenderness, but no rebound. Otherwise, the abdomen is flat from being n.p.o. for many days. Finally, the conservator has agreed for the exploration and treatment for bowel obstruction as the patient has no family. JOB# [id number]
[2017-11-04] MEDS ORDERED: Morphine Sulfate 2 mg/mL 1mL Syr IVP PRN (09:46)
[2017-11-04] MEDS ORDERED: Lactated Ringer 1,000 ML IV SCH (10:00)
[2017-11-04] MEDS: Petrolatum (White) Oint 0.6 Oz Tube TP SCH ×2 (11:51→16:52)
[2017-11-04] MEDS: Fluticasone Propionate 0.05mg/Actuation 16gm Nasal Spray NS SCH (11:52)
[2017-11-04] MEDS: Miconazole Nitrate 2% Cream 30gm TP SCH ×2 (11:53→16:53)
[2017-11-04] MEDS: Saline 0.65% Nasal Spray NS SCH ×3 (11:54→20:30)
--- NOTE | 2017-11-04 13:14 | GI Progress Note ---
Subjective - Review of Systems Subjective: HAD SBO SURGERY Objective - Results Result Diagrams: 11/04/17 05:40 11/04/17 05:40 Recent Labs: Laboratory Last Values WBC 11.6 Th/cmm (4.8-10.8) H 11/04/17 05:40 RBC 4.27 Mil/cmm (4.30-5.70) L 11/04/17 05:40 Hgb 13.7 gm/dL (12-16) 11/04/17 05:40 Hct 40.5 % (41.0-60) L 11/04/17 05:40 MCV 94.9 fl (80-99) 11/04/17 05:40 MCH 32.0 pg (26.0-30.0) H 11/04/17 05:40 MCHC Differential 33.8 pg (28.0-36.0) 11/04/17 05:40 RDW 13.9 % (11.5-20.0) 11/04/17 05:40 Plt Count 310 Th/cmm (150-400) 11/04/17 05:40 MPV 8.1 fl 11/04/17 05:40 Neutrophils % 73.1 % (40.0-80.0) 11/04/17 05:40 Lymphocytes % 10.6 % (20.0-50.0) L 11/04/17 05:40 Monocytes % 12.4 % (2.0-10.0) H 11/04/17 05:40 Eosinophils % 3.6 % (0.0-5.0) 11/04/17 05:40 Basophils % 0.3 % (0.0-2.0) 11/04/17 05:40 Neutrophils (Manual) 81 % (40-80) H 11/01/17 08:49 Lymphocytes 10 % (20-50) L 11/01/17 08:49 Monocytes 9 % (2-10) 11/01/17 08:49 Platelet Estimate ADEQUATE (NORMAL) 11/01/17 08:49 PT 10.4 SECONDS (9.5-11.5) 11/04/17 05:40 INR 1.00 (0.5-1.4) 11/04/17 05:40 PTT (Actin FS) 22.4 SECONDS (26.0-38.0) L 11/04/17 05:40 Sodium 146 mEq/L (136-145) H 11/04/17 05:40 Potassium 3.9 mEq/L (3.5-5.1) 11/04/17 05:40 Chloride 112 mEq/L (98-107) H 11/04/17 05:40 Carbon Dioxide 25.7 mEq/L (21.0-31.0) 11/04/17 05:40 Anion Gap 12.2 (7.0-16.0) 11/04/17 05:40 BUN 34 mg/dL (7-25) H 11/04/17 05:40 Creatinine 0.9 mg/dL (0.7-1.3) 11/04/17 05:40 Est GFR ( Amer) > 60.0 ml/min (>90) 11/04/17 05:40 Est GFR (Non-Af Amer) > 60.0 ml/min 11/04/17 05:40 BUN/Creatinine Ratio 37.8 11/04/17 05:40 Glucose 112 mg/dL (70-105) H 11/04/17 05:40 POC Glucose 131 MG/DL (70 - 105) H 11/04/17 12:04 Whole Bld Lactic Acid 1.20 mmol/L (0.60-1.99) 11/01/17 08:49 Calcium 9.8 mg/dL (8.6-10.3) 11/04/17 05:40 Phosphorus 2.6 mg/dL (2.5-5.0) 11/04/17 05:40 Magnesium 1.9 mg/dL (1.9-2.7) 11/04/17 05:40 Total Bilirubin 0.5 mg/dL (0.3-1.0) 11/04/17 05:40 AST 38 U/L (13-39) 11/04/17 05:40 ALT 40 U/L (7-52) 11/04/17 05:40 Alkaline Phosphatase 140 U/L (34-104) H 11/04/17 05:40 Troponin I 0.03 ng/mL (0.01-0.05) 11/01/17 08:49 Total Protein 6.9 gm/dL (6.0-8.3) 11/04/17 05:40 Albumin 3.8 gm/dL (4.2-5.5) L 11/04/17 05:40 Globulin 3.1 gm/dL 11/04/17 05:40 Albumin/Globulin Ratio 1.2 (1.0-1.8) 11/04/17 05:40 Prealbumin 30 11/03/17 06:20 Triglycerides 196 mg/dL (<150) H 11/02/17 06:13 Cholesterol 158 mg/dL (<200) 11/03/17 06:20 Lipase 38 U/L (11-82) 11/01/17 08:49 TSH 12.56 uIU/ml (0.34-5.60) H 11/01/17 08:49 Urine Source RANDOM 11/01/17 09:20 Urine Color YELLOW 11/01/17 09:20 Urine Clarity HAZY (CLEAR) 11/01/17 09:20 Urine pH 5.5 (4.6 - 8.0) 11/01/17 09:20 Ur Specific [place] >= 1.030 (1.005-1.030) 11/01/17 09:20 Urine Protein 100 mg/dL (NEGATIVE) H 11/01/17 09:20 Urine Glucose (UA) NEGATIVE mg/dL (NEGATIVE) 11/01/17 09:20 Urine Ketones NEGATIVE mg/dL (NEGATIVE) 11/01/17 09:20 Urine Blood TRACE (NEGATIVE) 11/01/17 09:20 Urine Nitrate NEGATIVE (NEGATIVE) 11/01/17 09:20 Urine Bilirubin SMALL (NEGATIVE) H 11/01/17 09:20 Urine Urobilinogen 0.2 E.U./dL (0.2 - 1.0) 11/01/17 09:20 Ur Leukocyte Esterase SMALL (NEGATIVE) H 11/01/17 09:20 Urine RBC 0-2 /hpf (0-5) H 11/01/17 09:20 Urine WBC 50-100 /hpf (0-5) H 11/01/17 09:20 Ur Epithelial Cells MODERATE /lpf (FEW) 11/01/17 09:20 Urine Bacteria MODERATE /hpf (NONE SEEN) H 11/01/17 09:20 - Physical Exam Vitals and I&O: Vital Signs Temp 96.5 F 11/04/17 11:55 Pulse 78 11/04/17 11:55 Resp 18 11/04/17 11:55 BP 132/80 11/04/17 11:55 Pulse Ox 96 11/04/17 11:55 Intake & Output 11/03/17 11/04/17 11/04/17 18:59 06:59 18:59 Intake Total 100 1330 Output Total 2650 Balance 100 -1320 Weight (lbs) 68.039 kg Intake: Intake, IV Amount 100 110 Levetiracetam 1,000 mg In 110 Sodium Chloride 0.9% 100 ml @ 200 mls/hr IV Q12H [facility] Rx#:[id number] Meropenem 500 mg In 100 Sodium Chloride 0.9% 100 ml @ 100 mls/hr IV Q12H [facility] Rx#:[id number] TPN/PPN 1220 Output: Gastric Drainage 550 Urine 1400 Stool 700 Other: Weight Source Bedscale Active Medications: Current Medications Acetaminophen (Tylenol) 650 mg PO Q6H PRN PRN Reason: PAIN OR FEVER >100 Acetaminophen/Hydrocodone Bitart ([place] 5mg/325mg) 1 tab PO Q6H PRN PRN Reason: PAIN/DISCOMFORT Stop: 12/31/17 10:05 Albuterol Sulfate (Albuterol 2.5mg/3ml Neb Ud) 2.5 mg HHN Q4HRT PRN PRN Reason: Shortness of Breath Stop: 12/31/17 11:19 Benztropine Mesylate (Cogentin) 1 mg PO BID [facility] Stop: 12/31/17 16:59 Last Admin: 11/04/17 08:56 Dose: Not Given Brimonidine Tartrate (Alphagan 0.2% Ophth Soln) 1 drop EACH EYE BID [facility] Stop: 12/31/17 16:59 Last Admin: 11/04/17 08:56 Dose: Not Given Chlorhexidine Gluconate (Peridex) 15 ml MM DAILY [facility] Stop: 01/02/18 09:59 Last Admin: 11/04/17 08:56 Dose: Not Given Clonazepam (Klonopin) 1 mg PO BID [facility] Stop: 12/31/17 16:59 Last Admin: 11/04/17 08:56 Dose: Not Given Dorzolamide/Timolol (Cosopt Ophth Soln) 1 drop RIGHT EYE BID [facility] Stop: 12/31/17 16:59 Last Admin: 11/04/17 11:52 Dose: 1 drop Escitalopram Oxalate (Lexapro) 20 mg PO DAILY [facility] PRN Reason: Protocol Stop: 01/01/18 08:59 Last Admin: 11/04/17 08:56 Dose: Not Given Fluticasone Propionate (Flonase) 2 spr NS DAILY [facility] Stop: 01/01/18 08:59 Last Admin: 11/04/17 11:52 Dose: 2 spr Hydrocortisone (Hydrocortisone 1%) 1 appl TP BID PRN PRN Reason: Rash Stop: 12/31/17 10:05 Meropenem 500 mg/ Sodium (Chloride) 100 mls @ 100 mls/hr IV Q12H [facility] Stop: 12/31/17 11:59 Last Admin: 11/04/17 01:00 Dose: 100 mls/hr Multivitamins/Minerals 10 ml/Dextrose/ Amino Acids/Electrolytes/ Fat Emulsion Intravenous 1,440 mls @ 60 mls/hr IV .Q24H [facility] Stop: 01/02/18 15:59 Last Admin: 11/03/17 17:06 Dose: 60 mls/hr Dextrose/Sodium Chloride (D5-0.9%Ns) 1,000 mls @ 20 mls/hr IV .Q24H [facility] Stop: 01/02/18 15:59 Last Admin: 11/03/17 17:10 Dose: 20 mls/hr Levetiracetam 1,000 mg/ Sodium (Chloride) 110 mls @ 200 mls/hr IV Q12H [facility] Stop: 01/02/18 20:59 Last Admin: 11/04/17 11:52 Dose: 200 mls/hr Lactated Ringer's (Lactated Ringer) 1,000 mls @ 100 mls/hr IV .Q10H [facility] Stop: 11/05/17 09:59 Insulin Aspart (Novolog Insulin Sliding Scale) 0 units SUBQ Q6HR [facility] PRN Reason: Protocol Stop: 01/02/18 07:59 Last Admin: 11/04/17 12:05 Dose: Not Given Lamotrigine (Lamictal) 200 mg PO DAILY [facility] Stop: 01/01/18 08:59 Last Admin: 11/04/17 08:56 Dose: Not Given Lamotrigine (Lamictal) 350 mg PO HS [facility] Stop: 12/31/17 20:59 Last Admin: 11/03/17 22:35 Dose: Not Given Latanoprost (Xalatan 0.005% Ophth Soln) 1 drop EACH EYE HS [facility] Stop: 12/31/17 20:59 Last Admin: 11/03/17 22:44 Dose: 1 drop Levothyroxine Sodium (Synthroid) 0.125 mg PO DAILY [facility] Stop: 01/01/18 08:59 Last Admin: 11/04/17 08:57 Dose: Not Given Methotrexate (Methotrexate) 10 mg PO Tu@0730 [facility] PRN Reason: Protocol Stop: 01/03/18 07:29 Last Admin: 11/04/17 07:42 Dose: Not Given Miconazole Nitrate (Micatin 2%) 1 appl TP BID [facility] Stop: 12/31/17 16:59 Last Admin: 11/04/17 11:53 Dose: Not Given Miscellaneous (Ppn Per Pharmacy) 1 ea MC PRN PRN PRN Reason: PROTOCOL Stop: 12/31/17 10:15 Morphine Sulfate (Morphine) 1 mg IVP Q4HR PRN PRN Reason: Pain (Moderate) Stop: 11/05/17 09:45 Pantoprazole Sodium (Protonix) 40 mg IVP BID [facility] Stop: 12/31/17 16:59 Last Admin: 11/04/17 12:05 Dose: 40 mg Patient Own Med Onfi (20mg Tablet) 1 PO BID [facility] Stop: 01/01/18 16:59 Last Admin: 11/04/17 08:57 Dose: Not Given Patient Own Med (Aptiom 600mg Tablet) 1 PO QPM [facility] Stop: 01/01/18 16:59 Last Admin: 11/03/17 16:35 Dose: Not Given Petrolatum (Vaseline Oint) 1 appl TP BID [facility] Stop: 12/31/17 16:59 Last Admin: 11/04/17 11:51 Dose: 1 appl Quetiapine Fumarate (Seroquel) 25 mg PO BID [facility] PRN Reason: Protocol Stop: 12/31/17 16:59 Last Admin: 11/04/17 08:57 Dose: Not Given Rifaximin (Xifaxan) 600 mg PO BID [facility] Stop: 12/31/17 16:59 Last Admin: 11/04/17 08:58 Dose: Not Given Sodium Chloride (Keith Nasal Doss) 1 spr NS QID [facility] Stop: 12/31/17 12:59 Last Admin: 11/04/17 11:54 Dose: 1 spr - Procedures Procedures: Procedures Procedure Code Date BYPASS ILEUM TO CUTANEOUS, OPEN APPROACH [id number] 09/23/17 CHANGE FEEDING DEVICE IN UP INTEST TRACT, POWER GENERATION [employer] OPERATOR APPROACH [id number] 11/01/17 CHANGE GASTROSTOMY TUBE 88789 11/01/17 ILEOSTOMY/JEJUNOSTOMY 83057 09/23/17 INSERTION OF ENDOTRACHEAL AIRWAY INTO TRACHEA, VIA OPENING [id number] 09/23/17 INSERTION OF FEEDING DEVICE INTO STOMACH, OPEN APPROACH [id number] 09/23/17 INTRODUCTION OF NUTRITIONAL INTO CENTRAL VEIN, PERC APPROACH [id number] 09/23/17 PARTIAL REMOVAL OF COLON 22939 09/23/[address] GASTROSTOMY TUBE 22173 09/23/17 RELEASE PERITONEUM, OPEN APPROACH [id number] 09/23/17 RESECTION OF LARGE INTESTINE, OPEN APPROACH [id number] 09/23/17 RESPIRATORY VENTILATION, LESS THAN 24 CONSECUTIVE HOURS [id number] 09/23/17 Assessment/Plan - Problem List Patient Problems: All Active Problems GASTRIC FEEDING TUBE DISLODGED (Acute) - Assessment Assessment: 62 YO MALE WITH MALFUNCTION G TUBE DYSPGHAGIA S/P GT CHANGE AND SBO SURGERY 1.CONT POST OP CARE 2.DIET PER SURGEON
--- NOTE | 2017-11-04 13:45 | Internal Medicine Prog Note ---
Internal Medicine Subjective - Subjective Service Date: 11/04/17 Patient seen and examined:: with staff Patient is:: awake Patient Complaints of:: vomitting Per staff patient has:: poor appetite, tolerating meds Internal Medicine Objective - Results Result Diagrams: 11/04/17 05:40 11/04/17 05:40 Recent Labs: Laboratory Last Values WBC 11.6 Th/cmm (4.8-10.8) H 11/04/17 05:40 RBC 4.27 Mil/cmm (4.30-5.70) L 11/04/17 05:40 Hgb 13.7 gm/dL (12-16) 11/04/17 05:40 Hct 40.5 % (41.0-60) L 11/04/17 05:40 MCV 94.9 fl (80-99) 11/04/17 05:40 MCH 32.0 pg (26.0-30.0) H 11/04/17 05:40 MCHC Differential 33.8 pg (28.0-36.0) 11/04/17 05:40 RDW 13.9 % (11.5-20.0) 11/04/17 05:40 Plt Count 310 Th/cmm (150-400) 11/04/17 05:40 MPV 8.1 fl 11/04/17 05:40 Neutrophils % 73.1 % (40.0-80.0) 11/04/17 05:40 Lymphocytes % 10.6 % (20.0-50.0) L 11/04/17 05:40 Monocytes % 12.4 % (2.0-10.0) H 11/04/17 05:40 Eosinophils % 3.6 % (0.0-5.0) 11/04/17 05:40 Basophils % 0.3 % (0.0-2.0) 11/04/17 05:40 Neutrophils (Manual) 81 % (40-80) H 11/01/17 08:49 Lymphocytes 10 % (20-50) L 11/01/17 08:49 Monocytes 9 % (2-10) 11/01/17 08:49 Platelet Estimate ADEQUATE (NORMAL) 11/01/17 08:49 PT 10.4 SECONDS (9.5-11.5) 11/04/17 05:40 INR 1.00 (0.5-1.4) 11/04/17 05:40 PTT (Actin FS) 22.4 SECONDS (26.0-38.0) L 11/04/17 05:40 Sodium 146 mEq/L (136-145) H 11/04/17 05:40 Potassium 3.9 mEq/L (3.5-5.1) 11/04/17 05:40 Chloride 112 mEq/L (98-107) H 11/04/17 05:40 Carbon Dioxide 25.7 mEq/L (21.0-31.0) 11/04/17 05:40 Anion Gap 12.2 (7.0-16.0) 11/04/17 05:40 BUN 34 mg/dL (7-25) H 11/04/17 05:40 Creatinine 0.9 mg/dL (0.7-1.3) 11/04/17 05:40 Est GFR ( Amer) > 60.0 ml/min (>90) 11/04/17 05:40 Est GFR (Non-Af Amer) > 60.0 ml/min 11/04/17 05:40 BUN/Creatinine Ratio 37.8 11/04/17 05:40 Glucose 112 mg/dL (70-105) H 11/04/17 05:40 POC Glucose 131 MG/DL (70 - 105) H 11/04/17 12:04 Whole Bld Lactic Acid 1.20 mmol/L (0.60-1.99) 11/01/17 08:49 Calcium 9.8 mg/dL (8.6-10.3) 11/04/17 05:40 Phosphorus 2.6 mg/dL (2.5-5.0) 11/04/17 05:40 Magnesium 1.9 mg/dL (1.9-2.7) 11/04/17 05:40 Total Bilirubin 0.5 mg/dL (0.3-1.0) 11/04/17 05:40 AST 38 U/L (13-39) 11/04/17 05:40 ALT 40 U/L (7-52) 11/04/17 05:40 Alkaline Phosphatase 140 U/L (34-104) H 11/04/17 05:40 Troponin I 0.03 ng/mL (0.01-0.05) 11/01/17 08:49 Total Protein 6.9 gm/dL (6.0-8.3) 11/04/17 05:40 Albumin 3.8 gm/dL (4.2-5.5) L 11/04/17 05:40 Globulin 3.1 gm/dL 11/04/17 05:40 Albumin/Globulin Ratio 1.2 (1.0-1.8) 11/04/17 05:40 Prealbumin 30 11/03/17 06:20 Triglycerides 196 mg/dL (<150) H 11/02/17 06:13 Cholesterol 158 mg/dL (<200) 11/03/17 06:20 Lipase 38 U/L (11-82) 11/01/17 08:49 TSH 12.56 uIU/ml (0.34-5.60) H 11/01/17 08:49 Urine Source RANDOM 11/01/17 09:20 Urine Color YELLOW 11/01/17 09:20 Urine Clarity HAZY (CLEAR) 11/01/17 09:20 Urine pH 5.5 (4.6 - 8.0) 11/01/17 09:20 Ur Specific [place] >= 1.030 (1.005-1.030) 11/01/17 09:20 Urine Protein 100 mg/dL (NEGATIVE) H 11/01/17 09:20 Urine Glucose (UA) NEGATIVE mg/dL (NEGATIVE) 11/01/17 09:20 Urine Ketones NEGATIVE mg/dL (NEGATIVE) 11/01/17 09:20 Urine Blood TRACE (NEGATIVE) 11/01/17 09:20 Urine Nitrate NEGATIVE (NEGATIVE) 11/01/17 09:20 Urine Bilirubin SMALL (NEGATIVE) H 11/01/17 09:20 Urine Urobilinogen 0.2 E.U./dL (0.2 - 1.0) 11/01/17 09:20 Ur Leukocyte Esterase SMALL (NEGATIVE) H 11/01/17 09:20 Urine RBC 0-2 /hpf (0-5) H 11/01/17 09:20 Urine WBC 50-100 /hpf (0-5) H 11/01/17 09:20 Ur Epithelial Cells MODERATE /lpf (FEW) 11/01/17 09:20 Urine Bacteria MODERATE /hpf (NONE SEEN) H 11/01/17 09:20 - Physical Exam Vitals and I&O: Vital Signs Temp 96.5 F 11/04/17 11:55 Pulse 78 11/04/17 11:55 Resp 18 11/04/17 11:55 BP 132/80 11/04/17 11:55 Pulse Ox 96 11/04/17 11:55 Intake & Output 11/03/17 11/04/17 11/04/17 18:59 06:59 18:59 Intake Total 100 1330 Output Total 2650 Balance 100 -1320 Weight (lbs) 150 lb Intake: Intake, IV Amount 100 110 Levetiracetam 1,000 mg In 110 Sodium Chloride 0.9% 100 ml @ 200 mls/hr IV Q12H [facility] Rx#:[id number] Meropenem 500 mg In 100 Sodium Chloride 0.9% 100 ml @ 100 mls/hr IV Q12H [facility] Rx#:[id number] TPN/PPN 1220 Output: Gastric Drainage 550 Urine 1400 Stool 700 Other: Weight Source Bedscale Active Medications: Current Medications Acetaminophen (Tylenol) 650 mg PO Q6H PRN PRN Reason: PAIN OR FEVER >100 Acetaminophen/Hydrocodone Bitart ([place] 5mg/325mg) 1 tab PO Q6H PRN PRN Reason: PAIN/DISCOMFORT Stop: 12/31/17 10:05 Albuterol Sulfate (Albuterol 2.5mg/3ml Neb Ud) 2.5 mg HHN Q4HRT PRN PRN Reason: Shortness of Breath Stop: 12/31/17 11:19 Benztropine Mesylate (Cogentin) 1 mg PO BID [facility] Stop: 12/31/17 16:59 Last Admin: 11/04/17 08:56 Dose: Not Given Brimonidine Tartrate (Alphagan 0.2% Ophth Soln) 1 drop EACH EYE BID [facility] Stop: 12/31/17 16:59 Last Admin: 11/04/17 08:56 Dose: Not Given Chlorhexidine Gluconate (Peridex) 15 ml MM DAILY [facility] Stop: 01/02/18 09:59 Last Admin: 11/04/17 08:56 Dose: Not Given Clonazepam (Klonopin) 1 mg PO BID [facility] Stop: 12/31/17 16:59 Last Admin: 11/04/17 08:56 Dose: Not Given Dorzolamide/Timolol (Cosopt Ophth Soln) 1 drop RIGHT EYE BID [facility] Stop: 12/31/17 16:59 Last Admin: 11/04/17 11:52 Dose: 1 drop Escitalopram Oxalate (Lexapro) 20 mg PO DAILY [facility] PRN Reason: Protocol Stop: 01/01/18 08:59 Last Admin: 11/04/17 08:56 Dose: Not Given Fluticasone Propionate (Flonase) 2 spr NS DAILY [facility] Stop: 01/01/18 08:59 Last Admin: 11/04/17 11:52 Dose: 2 spr Hydrocortisone (Hydrocortisone 1%) 1 appl TP BID PRN PRN Reason: Rash Stop: 12/31/17 10:05 Meropenem 500 mg/ Sodium (Chloride) 100 mls @ 100 mls/hr IV Q12H [facility] Stop: 12/31/17 11:59 Last Admin: 11/04/17 01:00 Dose: 100 mls/hr Multivitamins/Minerals 10 ml/Dextrose/ Amino Acids/Electrolytes/ Fat Emulsion Intravenous 1,440 mls @ 60 mls/hr IV .Q24H [facility] Stop: 01/02/18 15:59 Last Admin: 11/03/17 17:06 Dose: 60 mls/hr Dextrose/Sodium Chloride (D5-0.9%Ns) 1,000 mls @ 20 mls/hr IV .Q24H [facility] Stop: 01/02/18 15:59 Last Admin: 11/03/17 17:10 Dose: 20 mls/hr Levetiracetam 1,000 mg/ Sodium (Chloride) 110 mls @ 200 mls/hr IV Q12H [facility] Stop: 01/02/18 20:59 Last Admin: 11/04/17 11:52 Dose: 200 mls/hr Lactated Ringer's (Lactated Ringer) 1,000 mls @ 100 mls/hr IV .Q10H [facility] Stop: 11/05/17 09:59 Insulin Aspart (Novolog Insulin Sliding Scale) 0 units SUBQ Q6HR [facility] PRN Reason: Protocol Stop: 01/02/18 07:59 Last Admin: 11/04/17 12:05 Dose: Not Given Lamotrigine (Lamictal) 200 mg PO DAILY [facility] Stop: 01/01/18 08:59 Last Admin: 11/04/17 08:56 Dose: Not Given Lamotrigine (Lamictal) 350 mg PO HS [facility] Stop: 12/31/17 20:59 Last Admin: 11/03/17 22:35 Dose: Not Given Latanoprost (Xalatan 0.005% Ophth Soln) 1 drop EACH EYE HS [facility] Stop: 12/31/17 20:59 Last Admin: 11/03/17 22:44 Dose: 1 drop Levothyroxine Sodium (Synthroid) 0.125 mg PO DAILY [facility] Stop: 01/01/18 08:59 Last Admin: 11/04/17 08:57 Dose: Not Given Methotrexate (Methotrexate) 10 mg PO Tu@0730 [facility] PRN Reason: Protocol Stop: 01/03/18 07:29 Last Admin: 11/04/17 07:42 Dose: Not Given Miconazole Nitrate (Micatin 2%) 1 appl TP BID [facility] Stop: 12/31/17 16:59 Last Admin: 11/04/17 11:53 Dose: Not Given Miscellaneous (Ppn Per Pharmacy) 1 ea PRN PRN PRN Reason: PROTOCOL Stop: 12/31/17 10:15 Morphine Sulfate (Morphine) 1 mg IVP Q4HR PRN PRN Reason: Pain (Moderate) Stop: 11/05/17 09:45 Pantoprazole Sodium (Protonix) 40 mg IVP BID [facility] Stop: 12/31/17 16:59 Last Admin: 11/04/17 12:05 Dose: 40 mg Patient Own Med Onfi (20mg Tablet) 1 PO BID [facility] Stop: 01/01/18 16:59 Last Admin: 11/04/17 08:57 Dose: Not Given Patient Own Med (Aptiom 600mg Tablet) 1 PO QPM [facility] Stop: 01/01/18 16:59 Last Admin: 11/03/17 16:35 Dose: Not Given Petrolatum (Vaseline Oint) 1 appl TP BID [facility] Stop: 12/31/17 16:59 Last Admin: 11/04/17 11:51 Dose: 1 appl Quetiapine Fumarate (Seroquel) 25 mg PO BID [facility] PRN Reason: Protocol Stop: 12/31/17 16:59 Last Admin: 11/04/17 08:57 Dose: Not Given Rifaximin (Xifaxan) 600 mg PO BID [facility] Stop: 12/31/17 16:59 Last Admin: 11/04/17 08:58 Dose: Not Given Sodium Chloride ([place] Nasal [place]) 1 spr NS QID [facility] Stop: 12/31/17 12:59 Last Admin: 11/04/17 11:54 Dose: 1 spr General: weak HEENT: NC/AT, PERRLA Neck: Supple Lungs: CTAB Cardiovascular: RRR, Normal S1, Normal S2, without murmur Abdomen: soft, +GT, positive bowel sound Extremities: excoriation - Procedures Procedures: Procedures Procedure Code Date BYPASS ILEUM TO CUTANEOUS, OPEN APPROACH [id number] 09/23/17 CHANGE FEEDING DEVICE IN UP INTEST TRACT, HORSE WRANGLER APPROACH [id number] 11/01/17 CHANGE GASTROSTOMY TUBE 53799 11/01/17 ILEOSTOMY/JEJUNOSTOMY 19237 09/23/17 INSERTION OF ENDOTRACHEAL AIRWAY INTO TRACHEA, VIA OPENING [id number] 09/23/17 INSERTION OF FEEDING DEVICE INTO STOMACH, OPEN APPROACH [id number] 09/23/17 INTRODUCTION OF NUTRITIONAL INTO CENTRAL VEIN, PERC APPROACH [id number] 09/23/17 PARTIAL REMOVAL OF COLON 85748 09/23/17 PLACE GASTROSTOMY TUBE 35827 09/23/17 RELEASE PERITONEUM, OPEN APPROACH [id number] 09/23/17 RESECTION OF LARGE INTESTINE, OPEN APPROACH [id number] 09/23/17 RESPIRATORY VENTILATION, LESS THAN 24 CONSECUTIVE HOURS [id number] 09/23/17 Internal Medicine Assmt/Plan - Assessment Assessment: s/p peg placement sepsis intractable vomiting small bowel obstruction acute renal insufficiency acute uti mr cp seizures generalized contractures - Plan Plan: bladder irrigation to be done x5 days will add ampho B nurses to do oral care CONTINUE WITH PPN FOR NUTRITIONAL SUPPORT MONITOR LYTES CONTINUE CURRENT PLAN OF CARE Nutritional Asmnt/Malnutr-PDOC - Dietary Evaluation Malnutrition Findings (Please click <Entered> for more info): Nutritional Asmnt/Malnutrition Start: 11/03/17 14: 15 Text: Status: Complete Freq: Document 11/03/17 14:15 LCHENG (Rec: 11/03/17 14:45 LCHENG [email or web address]) Nutritional Asmnt/Malnutrition Patient General Information Nutritional Screening High Risk Consult Diagnosis UTI Pertinent Medical Hx/Surgical Hx MR, cerebral palsy, seizure, colectomy, generalized contractures, ileostomy Subjective Information Consult received for low kenny. Pt had gtube replacement this morning. Pt now on TPN. May start tube feeding if small bowel series does not show bowel obstruction per MD note. Current Diet Order/ Nutrition Support TPN D10% A4.25%, lipid 20% 150ml at 50ml/hr providing 912kcal, 51g protein Pertinent Medications D5-0.9%ns, novolog, synthroid, k phos Pertinent Labs 11/03 cl 113, Bun 45, glucose 100, POC 92 Nutritional Hx/Data Height 5 ft 10 in Height (Calculated Centimeters) 177.8 Current Weight (lbs) 151 lb Weight (Calculated Kilograms) 68.5 Weight (Calculated Grams) 04163.4 [place] Body Weight 166 Body Mass Index (BMI) 21.7 Weight Status Approriate GI Symptoms GI Symptoms None Last BM 0 Difficult in: None Skin Integrity/Comment: rash to right and left foot, scar to abdomen Current %PO Good (75-100%) Estimated Nutritional Goals BEE in Kcals: Using Current wt Calories/Kcals/Kg 23-27 Kcals Calculated 4582-6711 Protein: Using Current wt Protein g/k-1.1 Protein Calculated 69-76 Fluid: ml 1587-1863ml 91ml/kcal) Nutritional Problem No current Nutrition Prob Problem altered GI function Etiology possible small bowel obstruction Signs/Symptoms: pt on TPN Malnutrition Alert Protein-Calorie Malnutrition N/A Is there a minimum of two criteria No selected? Query Text:Check all the applicable criteria. A minimum of two criteria are recommended for diagnosis of either severe or non-severe malnutrition. Intervention/Recommendation Comments 1. If continue with TPN, recommend D12%, AA4%, lipid 20 % 200ml at 80ml/hr. it provides 1555kcal, 250CHO (2. 5mg/kg/min), 76g protein. 2. If TF needed, recommend Fibersource HN starting at 20ml/hr for first 24hr. If tolerated, increase to goal rate of 55ml and wean TPN. 3. Monitor nutrition support, wt, skin integrity and labs 3. F/U as high risk in 2-3 days, /-11/06 Expected Outcomes/Goals Expected Outcomes/Goals 1. Pt to meet at least 75% of nutritional needs via nutrition support with tolerance 2. Wt stability, skin to remain intact, labs to approach WNL.
--- NOTE | 2017-11-04 15:31 | Operative Report ---
DATE OF SURGERY: 11/04/2017 PREOPERATIVE DIAGNOSES: 1. Small-bowel obstruction. 2. Mental retardation. 3. Seizure disorder. 4. Cerebral palsy. 5. Status post colectomy with a diverting ileostomy. POSTOPERATIVE DIAGNOSES: 1. Small-bowel obstruction. 2. Mental retardation. 3. Seizure disorder. 4. Cerebral palsy. 5. Status post colectomy with a diverting ileostomy. OPERATION DONE: Exploratory laparotomy with: 1. Lysis of multiple adhesions and adhesive bands. 2. Repair of lacerated small bowel. 3. Abdominal washout. 4. Decompression of small bowel. SURGEON: Johnnie Butler M.D. ANESTHESIA: General. ANESTHESIOLOGIST: Dr. Yu. ESTIMATED BLOOD LOSS: 50 mL. OPERATIVE FINDINGS: Markedly dilated proximal bowel with obstruction secondary to adhesive band in 2 areas and adhesions in 2 other areas. The distal bowel was completely decompressed. DESCRIPTION OF PROCEDURE: The patient was given general anesthesia. The abdomen was prepped with ChloraPrep following closure of the ileostomy. The drapes were applied. Incision was carried through the old incision. This was done with great care, not to damage any intra-abdominal structure. There were dense adhesions, but soft, which were lysed bluntly and sharply until the abdominal cavity was opened. Adhesive band was the reason for the complete occlusion of the distal small bowel in 2 areas. There were also adhesions of the small bowel to the abdominal wall in one area causing laceration which had to be repaired with running suture of 3-0 silk. Decompression of the bowel was done with the introduction of Strong suction proximally and distally allowing for approximately 1000 mL of fluid to be evacuated. Following closure of the enterostomy, wash out with antibiotic solution was carried out. A Isidoro drain was then applied in the abdominal cavity. The abdominal incision was closed with running suture of #1 PDS and the skin was closed with subcuticular suture of 4-0 Vicryl. Sterile dressing was placed over this with Op-Site to prevent drainage invading the incision from the ileostomy site. The patient tolerated the procedure well. JOB# [id number] [facility]
[2017-11-04] MEDS: TPN 10%-70% CUSTOM IV SCH (16:53)
[2017-11-04] MEDS: APTIOM 600 MG PO SCH (17:23)
[2017-11-04] MEDS: AMPHOTERICIN B IR SCH (18:14)
[2017-11-04] MEDS: STERILE WATER FOR IRRIGATION IR SCH (18:14)
[2017-11-04] MEDS: D5-0.9%NS 1,000 ML IV SCH (23:44)
[2017-11-05] MEDS: INSULIN ASPART SLIDING SCALE 100 UNITS/ML UNIT SUBQ SCH ×4 (00:39→17:01)
[2017-11-05 06:44] LABS: ALB/GLOB RATIO 1.1 (1.0-1.8); ALBUMIN 3.3 gm/dL (4.2-5.5); ALKALINE PHOSPHATASE 122 U/L (34-104); ANION GAP 10.8 (7.0-16.0); BILIRUBIN,TOTAL 1.4 mg/dL (0.3-1.0); BUN - UREA NITROGEN 29 mg/dL (7-25); CARBON DIOXIDE 22.3 mEq/L (21.0-31.0); CHLORIDE 113 mEq/L (98-107); CREATININE - SERUM 0.7 mg/dL (0.7-1.3); GFR AFRICAN-AMERICAN > 60.0 ml/min (>90); GFR NON AFRICAN-AMERICAN > 60.0 ml/min; GLUCOSE 154 mg/dL (70-105); PHOSPHOROUS 1.8 mg/dL (2.5-5.0); POTASSIUM SERUM 4.1 mEq/L (3.5-5.1); SGOT 25 U/L (13-39); SGPT/ALT 34 U/L (7-52); SODIUM SERUM 142 mEq/L (136-145); TOTAL PROTEIN,SERUM 6.3 gm/dL (6.0-8.3)
[2017-11-05 06:59] LABS: RED BLOOD COUNT 4.67 Mil/cmm (4.30-5.70)
[2017-11-05 07:14] LABS: HEMATOCRIT 44.3 % (41.0-60); HEMOGLOBIN 14.9 gm/dL (12-16); MEAN CELL VOLUME 94.8 fl (80-99); MEAN CORPUSCULAR HEMOGLOBIN 31.9 pg (26.0-30.0); MEAN CORPUSCULAR HGB CONC 33.6 pg (28.0-36.0); MEAN PLATELET VOLUME 8.6 fl; PLATELET COUNT 349 Th/cmm (150-400); RED CELL DISTRIBUTION WIDTH 14.2 % (11.5-20.0)
[2017-11-05 07:24] LABS: WHITE BLOOD COUNT 26.1 Th/cmm (4.8-10.8)
[2017-11-05 07:25] LABS: % BASOPHILS 0.2 % (0.0-2.0); % EOSINOPHILS 0.3 % (0.0-5.0); % LYMPHOCYTES 4.3 % (20.0-50.0); % NEUTROPHILS 84.2 % (40.0-80.0); NEUTROPHILE ABSOLUTE 21.9 Th/cmm (1.8-8.0)
[2017-11-05 07:26] LABS: BASOPHILE ABSOLUTE 0.1 Th/cumm (0-0.2); EOSINOPHILE ABSOLUTE 0.1 Th/cmm (0.1-0.4); LYMPHOCYTE ABSOLUTE 1.1 Th/cmm (1.5-3.0); MONOCYTE ABSOLUTE 2.9 Th/cmm (0.3-1.0)
--- NOTE | 2017-11-05 07:28 | GI Progress Note ---
Subjective - Review of Systems Subjective: HAD SBO SURGERY NOW WITH ILEOSTOMY OUTPUT Objective - Results Result Diagrams: 11/05/17 06:10 11/05/17 06:10 Recent Labs: Laboratory Last Values WBC 26.1 Th/cmm (4.8-10.8) H* D 11/05/17 06:10 RBC 4.67 Mil/cmm (4.30-5.70) 11/05/17 06:10 Hgb 14.9 gm/dL (12-16) 11/05/17 06:10 Hct 44.3 % (41.0-60) 11/05/17 06:10 MCV 94.8 fl (80-99) 11/05/17 06:10 MCH 31.9 pg (26.0-30.0) H 11/05/17 06:10 MCHC Differential 33.6 pg (28.0-36.0) 11/05/17 06:10 RDW 14.2 % (11.5-20.0) 11/05/17 06:10 Plt Count 349 Th/cmm (150-400) 11/05/17 06:10 MPV 8.6 fl 11/05/17 06:10 Neutrophils % 84.2 % (40.0-80.0) H 11/05/17 06:10 Lymphocytes % 4.3 % (20.0-50.0) L 11/05/17 06:10 Monocytes % 11.0 % (2.0-10.0) H 11/05/17 06:10 Eosinophils % 0.3 % (0.0-5.0) 11/05/17 06:10 Basophils % 0.2 % (0.0-2.0) 11/05/17 06:10 Neutrophils (Manual) 81 % (40-80) H 11/01/17 08:49 Lymphocytes 10 % (20-50) L 11/01/17 08:49 Monocytes 9 % (2-10) 11/01/17 08:49 Platelet Estimate ADEQUATE (NORMAL) 11/01/17 08:49 PT 10.4 SECONDS (9.5-11.5) 11/04/17 05:40 INR 1.00 (0.5-1.4) 11/04/17 05:40 PTT (Actin FS) 22.4 SECONDS (26.0-38.0) L 11/04/17 05:40 Sodium 142 mEq/L (136-145) 11/05/17 06:10 Potassium 4.1 mEq/L (3.5-5.1) 11/05/17 06:10 Chloride 113 mEq/L (98-107) H 11/05/17 06:10 Carbon Dioxide 22.3 mEq/L (21.0-31.0) 11/05/17 06:10 Anion Gap 10.8 (7.0-16.0) 11/05/17 06:10 BUN 29 mg/dL (7-25) H 11/05/17 06:10 Creatinine 0.7 mg/dL (0.7-1.3) 11/05/17 06:10 Est GFR ( Amer) > 60.0 ml/min (>90) 11/05/17 06:10 Est GFR (Non-Af Amer) > 60.0 ml/min 11/05/17 06:10 BUN/Creatinine Ratio 41.4 11/05/17 06:10 Glucose 154 mg/dL (70-105) H 11/05/17 06:10 POC Glucose 145 MG/DL (70 - 105) H 11/05/17 05:24 Whole Bld Lactic Acid 1.20 mmol/L (0.60-1.99) 11/01/17 08:49 Calcium 9.0 mg/dL (8.6-10.3) 11/05/17 06:10 Phosphorus 1.8 mg/dL (2.5-5.0) L 11/05/17 06:10 Magnesium 2.0 mg/dL (1.9-2.7) 11/05/17 06:10 Total Bilirubin 1.4 mg/dL (0.3-1.0) H 11/05/17 06:10 AST 25 U/L (13-39) 11/05/17 06:10 ALT 34 U/L (7-52) 11/05/17 06:10 Alkaline Phosphatase 122 U/L (34-104) H 11/05/17 06:10 Troponin I 0.03 ng/mL (0.01-0.05) 11/01/17 08:49 Total Protein 6.3 gm/dL (6.0-8.3) 11/05/17 06:10 Albumin 3.3 gm/dL (4.2-5.5) L 11/05/17 06:10 Globulin 3.0 gm/dL 11/05/17 06:10 Albumin/Globulin Ratio 1.1 (1.0-1.8) 11/05/17 06:10 Prealbumin 30 11/03/17 06:20 Triglycerides 196 mg/dL (<150) H 11/02/17 06:13 Cholesterol 158 mg/dL (<200) 11/03/17 06:20 Lipase 38 U/L (11-82) 11/01/17 08:49 TSH 12.56 uIU/ml (0.34-5.60) H 11/01/17 08:49 Urine Source RANDOM 11/01/17 09:20 Urine Color YELLOW 11/01/17 09:20 Urine Clarity HAZY (CLEAR) 11/01/17 09:20 Urine pH 5.5 (4.6 - 8.0) 11/01/17 09:20 Ur Specific [place] >= 1.030 (1.005-1.030) 11/01/17 09:20 Urine Protein 100 mg/dL (NEGATIVE) H 11/01/17 09:20 Urine Glucose (UA) NEGATIVE mg/dL (NEGATIVE) 11/01/17 09:20 Urine Ketones NEGATIVE mg/dL (NEGATIVE) 11/01/17 09:20 Urine Blood TRACE (NEGATIVE) 11/01/17 09:20 Urine Nitrate NEGATIVE (NEGATIVE) 11/01/17 09:20 Urine Bilirubin SMALL (NEGATIVE) H 11/01/17 09:20 Urine Urobilinogen 0.2 E.U./dL (0.2 - 1.0) 11/01/17 09:20 Ur Leukocyte Esterase SMALL (NEGATIVE) H 11/01/17 09:20 Urine RBC 0-2 /hpf (0-5) H 11/01/17 09:20 Urine WBC 50-100 /hpf (0-5) H 11/01/17 09:20 Ur Epithelial Cells MODERATE /lpf (FEW) 11/01/17 09:20 Urine Bacteria MODERATE /hpf (NONE SEEN) H 11/01/17 09:20 - Physical Exam Vitals and I&O: Vital Signs Temp 97.2 F 11/05/17 04:00 Pulse 104 11/05/17 04:00 Resp 18 11/05/17 06:00 BP 132/77 11/05/17 04:00 Pulse Ox 95 11/05/17 04:00 Intake & Output 11/04/17 11/05/17 11/05/17 18:59 06:59 18:59 Intake Total 2517 1821 Output Total 1200 1350 Balance 1317 471 Weight (lbs) 68.039 kg 81.647 kg Intake: Intake, IV Amount 1637 1821 D5-0.9%Ns 1,000 ml @ 20 611 mls/hr IV .Q24H [facility] Rx#: [id number] Levetiracetam 1,000 mg In 110 110 Sodium Chloride 0.9% 100 ml @ 200 mls/hr IV Q12H [facility] Rx#:[id number] Meropenem 500 mg In 100 100 Sodium Chloride 0.9% 100 ml @ 100 mls/hr IV Q12H [facility] Rx#:[id number] Multivitamin Inj 10 ml In 1427 Dextrose 70% 780 ml In Amino Acids 10% 500 ml In Intralipids 20% 150 ml @ 60 mls/hr IV .Q24H [facility] Rx#:[id number] Oral 0 TPN/PPN 480 Other 400 Output: Drainage 50 Left Anterior Abdomen 50 Urine 1200 1000 Stool 300 Other: # Bowel Movements 0 Stool Characteristics Liquid Weight Source Bedscale Bedscale Active Medications: Current Medications Acetaminophen (Tylenol) 650 mg PO Q6H PRN PRN Reason: PAIN OR FEVER >100 Acetaminophen/Hydrocodone Bitart ([place] 5mg/325mg) 1 tab PO Q6H PRN PRN Reason: PAIN/DISCOMFORT Stop: 12/31/17 10:05 Albuterol Sulfate (Albuterol 2.5mg/3ml Neb Ud) 2.5 mg HHN Q4HRT PRN PRN Reason: Shortness of Breath Stop: 12/31/17 11:19 Benztropine Mesylate (Cogentin) 1 mg PO BID [facility] Stop: 12/31/17 16:59 Last Admin: 11/04/17 17:23 Dose: Not Given Brimonidine Tartrate (Alphagan 0.2% Ophth Soln) 1 drop EACH EYE BID [facility] Stop: 12/31/17 16:59 Last Admin: 11/04/17 16:51 Dose: 1 drop Chlorhexidine Gluconate (Peridex) 15 ml MM DAILY [facility] Stop: 01/02/18 09:59 Last Admin: 11/04/17 08:56 Dose: Not Given Clonazepam (Klonopin) 1 mg PO BID [facility] Stop: 12/31/17 16:59 Last Admin: 11/04/17 17:23 Dose: Not Given Dorzolamide/Timolol (Cosopt Ophth Soln) 1 drop RIGHT EYE BID [facility] Stop: 12/31/17 16:59 Last Admin: 11/04/17 16:51 Dose: 1 drop Escitalopram Oxalate (Lexapro) 20 mg PO DAILY [facility] PRN Reason: Protocol Stop: 01/01/18 08:59 Last Admin: 11/04/17 08:56 Dose: Not Given Fluticasone Propionate (Flonase) 2 spr NS DAILY [facility] Stop: 01/01/18 08:59 Last Admin: 11/04/17 11:52 Dose: 2 spr Hydrocortisone (Hydrocortisone 1%) 1 appl TP BID PRN PRN Reason: Rash Stop: 12/31/17 10:05 Meropenem 500 mg/ Sodium (Chloride) 100 mls @ 100 mls/hr IV Q12H [facility] Stop: 12/31/17 11:59 Last Infusion: 11/05/17 00:41 Dose: Infused Multivitamins/Minerals 10 ml/Dextrose/ Amino Acids/Electrolytes/ Fat Emulsion Intravenous 1,440 mls @ 60 mls/hr IV .Q24H [facility] Stop: 01/02/18 15:59 Last Admin: 11/04/17 16:53 Dose: 60 mls/hr Dextrose/Sodium Chloride (D5-0.9%Ns) 1,000 mls @ 20 mls/hr IV .Q24H [facility] Stop: 01/02/18 15:59 Last Admin: 11/04/17 23:44 Dose: 20 mls/hr Levetiracetam 1,000 mg/ Sodium (Chloride) 110 mls @ 200 mls/hr IV Q12H [facility] Stop: 01/02/18 20:59 Last Infusion: 11/04/17 21:00 Dose: Infused Lactated Ringer's (Lactated Ringer) 1,000 mls @ 100 mls/hr IV .Q10H [facility] Stop: 11/05/17 09:59 Amphotericin B 50 mg/ Sterile (Water) 1,000 mls @ 100 mls/hr IR Q24H [facility] Stop: 11/09/17 17:59 Last Infusion: 11/05/17 04:14 Dose: Infused Insulin Aspart (Novolog Insulin Sliding Scale) 0 units SUBQ Q6HR [facility] PRN Reason: Protocol Stop: 01/02/18 07:59 Last Admin: 11/05/17 05:33 Dose: Not Given Lamotrigine (Lamictal) 200 mg PO DAILY [facility] Stop: 01/01/18 08:59 Last Admin: 11/04/17 08:56 Dose: Not Given Lamotrigine (Lamictal) 350 mg PO HS [facility] Stop: 12/31/17 20:59 Last Admin: 11/04/17 21:21 Dose: Not Given Latanoprost (Xalatan 0.005% Oph Soln) 1 drop EACH EYE HS [facility] Stop: 12/31/17 20:59 Last Admin: 11/04/17 20:28 Dose: 1 drop Levothyroxine Sodium (Synthroid) 0.125 mg PO DAILY [facility] Stop: 01/01/18 08:59 Last Admin: 11/04/17 08:57 Dose: Not Given Methotrexate (Methotrexate) 10 mg PO Tu@0730 [facility] PRN Reason: Protocol Stop: 01/03/18 07:29 Last Admin: 11/04/17 07:42 Dose: Not Given Miconazole Nitrate (Micatin 2%) 1 appl TP BID [facility] Stop: 12/31/17 16:59 Last Admin: 11/04/17 16:53 Dose: Not Given Miscellaneous (Ppn Per Pharmacy) 1 [facility] PRN PRN PRN Reason: PROTOCOL Stop: 12/31/17 10:15 Pantoprazole Sodium (Protonix) 40 mg IVP BID [facility] Stop: 12/31/17 16:59 Last Admin: 11/04/17 16:52 Dose: 40 mg Patient Own Med Onfi (20mg Tablet) 1 PO BID [facility] Stop: 01/01/18 16:59 Last Admin: 11/04/17 17:23 Dose: Not Given Patient Own Med (Aptiom 600mg Tablet) 1 PO QPM [facility] Stop: 01/01/18 16:59 Last Admin: 11/04/17 17:23 Dose: Not Given Petrolatum (Vaseline Oint) 1 appl TP BID [facility] Stop: 06/27/18 16:59 Last Admin: 11/04/17 16:52 Dose: 1 appl Quetiapine Fumarate (Seroquel) 25 mg PO BID [facility] PRN Reason: Protocol Stop: 12/31/17 16:59 Last Admin: 11/04/17 17:23 Dose: Not Given Rifaximin (Xifaxan) 600 mg PO BID [facility] Stop: 12/31/17 16:59 Last Admin: 11/04/17 18:35 Dose: Not Given Sodium Chloride ([place] Nasal [place]) 1 spr NS QID [facility] Stop: 12/31/17 12:59 Last Admin: 11/04/17 20:30 Dose: 1 spr - Procedures Procedures: Procedures Procedure Code Date BYPASS ILEUM TO CUTANEOUS, OPEN APPROACH [id number] 09/23/17 CHANGE FEEDING DEVICE IN UP INTEST TRACT, DIAGNOSTIC IMAGING MANAGER APPROACH [id number] 11/01/17 CHANGE GASTROSTOMY TUBE 94014 11/01/17 ILEOSTOMY/JEJUNOSTOMY 06997 09/23/17 INSERTION OF ENDOTRACHEAL AIRWAY INTO TRACHEA, VIA OPENING [id number] 09/23/17 INSERTION OF FEEDING DEVICE INTO STOMACH, OPEN APPROACH [id number] 09/23/17 INTRODUCTION OF NUTRITIONAL INTO CENTRAL VEIN, PERC APPROACH [id number] 09/23/17 PARTIAL REMOVAL OF COLON 75871 09/23/[address] GASTROSTOMY TUBE 92484 09/23/17 RELEASE PERITONEUM, OPEN APPROACH [id number] 09/23/17 RESECTION OF LARGE INTESTINE, OPEN APPROACH [id number] 09/23/17 RESPIRATORY VENTILATION, LESS THAN 24 CONSECUTIVE HOURS [id number] 09/23/17 Assessment/Plan - Problem List Patient Problems: All Active Problems GASTRIC FEEDING TUBE DISLODGED (Acute) - Assessment Assessment: 62 YO MALE WITH MALFUNCTION G TUBE DYSPGHAGIA S/P GT CHANGE AND SBO SURGERY 1.CONT POST OP CARE 2.DIET PER SURGEON
--- NOTE | 2017-11-05 09:17 | General Progress Note ---
Subjective - Review of Systems Service Date: 11/05/17 Events since last encounter: start feedings when patient starts having flatus or BM patient had markedly distended small bowel Objective - Results Result Diagrams: 11/05/17 06:10 11/05/17 06:10 Recent Labs: Laboratory Last Values WBC 26.1 Th/cmm (4.8-10.8) H* D 11/05/17 06:10 RBC 4.67 Mil/cmm (4.30-5.70) 11/05/17 06:10 Hgb 14.9 gm/dL (12-16) 11/05/17 06:10 Hct 44.3 % (41.0-60) 11/05/17 06:10 MCV 94.8 fl (80-99) 11/05/17 06:10 MCH 31.9 pg (26.0-30.0) H 11/05/17 06:10 MCHC Differential 33.6 pg (28.0-36.0) 11/05/17 06:10 RDW 14.2 % (11.5-20.0) 11/05/17 06:10 Plt Count 349 Th/cmm (150-400) 11/05/17 06:10 MPV 8.6 fl 11/05/17 06:10 Neutrophils % 84.2 % (40.0-80.0) H 11/05/17 06:10 Lymphocytes % 4.3 % (20.0-50.0) L 11/05/17 06:10 Monocytes % 11.0 % (2.0-10.0) H 11/05/17 06:10 Eosinophils % 0.3 % (0.0-5.0) 11/05/17 06:10 Basophils % 0.2 % (0.0-2.0) 11/05/17 06:10 Neutrophils (Manual) 81 % (40-80) H 11/01/17 08:49 Lymphocytes 10 % (20-50) L 11/01/17 08:49 Monocytes 9 % (2-10) 11/01/17 08:49 Platelet Estimate ADEQUATE (NORMAL) 11/01/17 08:49 PT 10.4 SECONDS (9.5-11.5) 11/04/17 05:40 INR 1.00 (0.5-1.4) 11/04/17 05:40 PTT (Actin FS) 22.4 SECONDS (26.0-38.0) L 11/04/17 05:40 Sodium 142 mEq/L (136-145) 11/05/17 06:10 Potassium 4.1 mEq/L (3.5-5.1) 11/05/17 06:10 Chloride 113 mEq/L (98-107) H 11/05/17 06:10 Carbon Dioxide 22.3 mEq/L (21.0-31.0) 11/05/17 06:10 Anion Gap 10.8 (7.0-16.0) 11/05/17 06:10 BUN 29 mg/dL (7-25) H 11/05/17 06:10 Creatinine 0.7 mg/dL (0.7-1.3) 11/05/17 06:10 Est GFR ( Amer) > 60.0 ml/min (>90) 11/05/17 06:10 Est GFR (Non-Af Amer) > 60.0 ml/min 11/05/17 06:10 BUN/Creatinine Ratio 41.4 11/05/17 06:10 Glucose 154 mg/dL (70-105) H 11/05/17 06:10 POC Glucose 145 MG/DL (70 - 105) H 11/05/17 05:24 Whole Bld Lactic Acid 1.20 mmol/L (0.60-1.99) 11/01/17 08:49 Calcium 9.0 mg/dL (8.6-10.3) 11/05/17 06:10 Phosphorus 1.8 mg/dL (2.5-5.0) L 11/05/17 06:10 Magnesium 2.0 mg/dL (1.9-2.7) 11/05/17 06:10 Total Bilirubin 1.4 mg/dL (0.3-1.0) H 11/05/17 06:10 AST 25 U/L (13-39) 11/05/17 06:10 ALT 34 U/L (7-52) 11/05/17 06:10 Alkaline Phosphatase 122 U/L (34-104) H 11/05/17 06:10 Troponin I 0.03 ng/mL (0.01-0.05) 11/01/17 08:49 Total Protein 6.3 gm/dL (6.0-8.3) 11/05/17 06:10 Albumin 3.3 gm/dL (4.2-5.5) L 11/05/17 06:10 Globulin 3.0 gm/dL 11/05/17 06:10 Albumin/Globulin Ratio 1.1 (1.0-1.8) 11/05/17 06:10 Prealbumin 30 11/03/17 06:20 Triglycerides 196 mg/dL (<150) H 11/02/17 06:13 Cholesterol 158 mg/dL (<200) 11/03/17 06:20 Lipase 38 U/L (11-82) 11/01/17 08:49 TSH 12.56 uIU/ml (0.34-5.60) H 11/01/17 08:49 Urine Source RANDOM 11/01/17 09:20 Urine Color YELLOW 11/01/17 09:20 Urine Clarity HAZY (CLEAR) 11/01/17 09:20 Urine pH 5.5 (4.6 - 8.0) 11/01/17 09:20 Ur Specific [place] >= 1.030 (1.005-1.030) 11/01/17 09:20 Urine Protein 100 mg/dL (NEGATIVE) H 11/01/17 09:20 Urine Glucose (UA) NEGATIVE mg/dL (NEGATIVE) 11/01/17 09:20 Urine Ketones NEGATIVE mg/dL (NEGATIVE) 11/01/17 09:20 Urine Blood TRACE (NEGATIVE) 11/01/17 09:20 Urine Nitrate NEGATIVE (NEGATIVE) 11/01/17 09:20 Urine Bilirubin SMALL (NEGATIVE) H 11/01/17 09:20 Urine Urobilinogen 0.2 E.U./dL (0.2 - 1.0) 11/01/17 09:20 Ur Leukocyte Esterase SMALL (NEGATIVE) H 11/01/17 09:20 Urine RBC 0-2 /hpf (0-5) H 11/01/17 09:20 Urine WBC 50-100 /hpf (0-5) H 11/01/17 09:20 Ur Epithelial Cells MODERATE /lpf (FEW) 11/01/17 09:20 Urine Bacteria MODERATE /hpf (NONE SEEN) H 11/01/17 09:20 - Physical Exam Vitals and I&O: Vital Signs Temp 97.0 F 11/05/17 07:46 Pulse 103 11/05/17 07:46 Resp 18 11/05/17 07:46 BP 158/89 11/05/17 07:46 Pulse Ox 95 11/05/17 07:46 Intake & Output 11/04/17 11/05/17 11/05/17 18:59 06:59 18:59 Intake Total 2517 1821 Output Total 1200 1350 Balance 1317 471 Weight (lbs) 68.039 kg 81.647 kg Intake: Intake, IV Amount 1637 1821 D5-0.9%Ns 1,000 ml @ 20 611 mls/hr IV .Q24H [facility] Rx#: [id number] Levetiracetam 1,000 mg In 110 110 Sodium Chloride 0.9% 100 ml @ 200 mls/hr IV Q12H [facility] Rx#:[id number] Meropenem 500 mg In 100 100 Sodium Chloride 0.9% 100 ml @ 100 mls/hr IV Q12H [facility] Rx#:[id number] Multivitamin Inj 10 ml In 1427 Dextrose 70% 780 ml In Amino Acids 10% 500 ml In Intralipids 20% 150 ml @ 60 mls/hr IV .Q24H [facility] Rx#:[id number] Oral 0 TPN/PPN 480 Other 400 Output: Drainage 50 Left Anterior Abdomen 50 Urine 1200 1000 Stool 300 Other: # Bowel Movements 0 Stool Characteristics Liquid Weight Source Bedscale Bedscale Active Medications: Current Medications Acetaminophen (Tylenol) 650 mg PO Q6H PRN PRN Reason: PAIN OR FEVER >100 Acetaminophen/Hydrocodone Bitart ([place] 5mg/325mg) 1 tab PO Q6H PRN PRN Reason: PAIN/DISCOMFORT Stop: 12/31/17 10:05 Albuterol Sulfate (Albuterol 2.5mg/3ml Neb Ud) 2.5 mg HHN Q4HRT PRN PRN Reason: Shortness of Breath Stop: 12/31/17 11:19 Benztropine Mesylate (Cogentin) 1 mg PO BID [facility] Stop: 12/31/17 16:59 Last Admin: 11/04/17 17:23 Dose: Not Given Brimonidine Tartrate (Alphagan 0.2% Ophth Soln) 1 drop EACH EYE BID [facility] Stop: 12/31/17 16:59 Last Admin: 11/04/17 16:51 Dose: 1 drop Chlorhexidine Gluconate (Peridex) 15 ml MM DAILY [facility] Stop: 01/02/18 09:59 Last Admin: 11/04/17 08:56 Dose: Not Given Clonazepam (Klonopin) 1 mg PO BID [facility] Stop: 12/31/17 16:59 Last Admin: 11/04/17 17:23 Dose: Not Given Dorzolamide/Timolol (Cosopt Ophth Soln) 1 drop RIGHT EYE BID [facility] Stop: 12/31/17 16:59 Last Admin: 11/04/17 16:51 Dose: 1 drop Escitalopram Oxalate (Lexapro) 20 mg PO DAILY [facility] PRN Reason: Protocol Stop: 01/01/18 08:59 Last Admin: 11/04/17 08:56 Dose: Not Given Fluticasone Propionate (Flonase) 2 spr NS DAILY [facility] Stop: 01/01/18 08:59 Last Admin: 11/04/17 11:52 Dose: 2 spr Hydrocortisone (Hydrocortisone 1%) 1 appl TP BID PRN PRN Reason: Rash Stop: 12/31/17 10:05 Meropenem 500 mg/ Sodium (Chloride) 100 mls @ 100 mls/hr IV Q12H [facility] Stop: 12/31/17 11:59 Last Infusion: 11/05/17 00:41 Dose: Infused Multivitamins/Minerals 10 ml/Dextrose/ Amino Acids/Electrolytes/ Fat Emulsion Intravenous 1,440 mls @ 60 mls/hr IV .Q24H [facility] Stop: 01/02/18 15:59 Last Admin: 11/04/17 16:53 Dose: 60 mls/hr Dextrose/Sodium Chloride (D5-0.9%Ns) 1,000 mls @ 20 mls/hr IV .Q24H [facility] Stop: 01/02/18 15:59 Last Admin: 11/04/17 23:44 Dose: 20 mls/hr Levetiracetam 1,000 mg/ Sodium (Chloride) 110 mls @ 200 mls/hr IV Q12H [facility] Stop: 01/02/18 20:59 Last Infusion: 11/04/17 21:00 Dose: Infused Lactated Ringer's (Lactated Ringer) 1,000 mls @ 100 mls/hr IV .Q10H [facility] Stop: 11/05/17 09:59 Amphotericin B 50 mg/ Sterile (Water) 1,000 mls @ 100 mls/hr IR Q24H [facility] Stop: 11/09/17 17:59 Last Infusion: 11/05/17 04:14 Dose: Infused Sodium Phosphate 30 mmole/ (Sodium Chloride) 260 mls @ 42 mls/hr IV ONCE ONE Stop: 11/05/17 15:41 Insulin Aspart (Novolog Insulin Sliding Scale) 0 units SUBQ Q6HR [facility] PRN Reason: Protocol Stop: 01/02/18 07:59 Last Admin: 11/05/17 05:33 Dose: Not Given Lamotrigine (Lamictal) 200 mg PO DAILY [facility] Stop: 01/01/18 08:59 Last Admin: 11/04/17 08:56 Dose: Not Given Lamotrigine (Lamictal) 350 mg PO HS [facility] Stop: 12/31/17 20:59 Last Admin: 11/04/17 21:21 Dose: Not Given Latanoprost (Xalatan 0.005% [facility]) 1 drop EACH EYE HS [facility] Stop: 12/31/17 20:59 Last Admin: 11/04/17 20:28 Dose: 1 drop Levothyroxine Sodium (Synthroid) 0.125 mg PO DAILY [facility] Stop: 01/01/18 08:59 Last Admin: 11/04/17 08:57 Dose: Not Given Methotrexate (Methotrexate) 10 mg PO Tu@0730 [facility] PRN Reason: Protocol Stop: 01/03/18 07:29 Last Admin: 11/04/17 07:42 Dose: Not Given Miconazole Nitrate (Micatin 2%) 1 appl TP BID [facility] Stop: 12/31/17 16:59 Last Admin: 11/04/17 16:53 Dose: Not Given Miscellaneous (Ppn Per Pharmacy) 1 ea MC PRN PRN PRN Reason: PROTOCOL Stop: 12/31/17 10:15 Pantoprazole Sodium (Protonix) 40 mg IVP BID [facility] Stop: 12/31/17 16:59 Last Admin: 11/04/17 16:52 Dose: 40 mg Patient Own Med Onfi (20mg Tablet) 1 PO BID [facility] Stop: 01/01/18 16:59 Last Admin: 11/04/17 17:23 Dose: Not Given Patient Own Med (Aptiom 600mg Tablet) 1 PO QPM [facility] Stop: 01/01/18 16:59 Last Admin: 11/04/17 17:23 Dose: Not Given Petrolatum (Vaseline Oint) 1 appl TP BID [facility] Stop: 12/31/17 16:59 Last Admin: 11/04/17 16:52 Dose: 1 appl Quetiapine Fumarate (Seroquel) 25 mg PO BID [facility] PRN Reason: Protocol Stop: 12/31/17 16:59 Last Admin: 11/04/17 17:23 Dose: Not Given Rifaximin (Xifaxan) 600 mg PO BID [facility] Stop: 12/31/17 16:59 Last Admin: 11/04/17 18:35 Dose: Not Given Sodium Chloride ([place] Nasal [place]) 1 spr NS QID [facility] Stop: 12/31/17 12:59 Last Admin: 11/04/17 20:30 Dose: 1 spr - Procedures Procedures: Procedures Procedure Code Date BYPASS ILEUM TO CUTANEOUS, OPEN APPROACH [id number] 09/23/17 CHANGE FEEDING DEVICE IN UP INTEST TRACT, PRODUCTION GRIP APPROACH [id number] 11/01/17 CHANGE GASTROSTOMY TUBE 65616 11/01/17 ILEOSTOMY/JEJUNOSTOMY 82596 09/23/17 INSERTION OF ENDOTRACHEAL AIRWAY INTO TRACHEA, VIA OPENING [id number] 09/23/17 INSERTION OF FEEDING DEVICE INTO STOMACH, OPEN APPROACH [id number] 09/23/17 INTRODUCTION OF NUTRITIONAL INTO CENTRAL VEIN, PERC APPROACH [id number] 09/23/17 PARTIAL REMOVAL OF COLON 43764 09/23/[address] PL[address] GASTROSTOMY TUBE 60914 09/23/17 RELEASE PERITONEUM, OPEN APPROACH [id number] 09/23/17 RESECTION OF LARGE INTESTINE, OPEN APPROACH [id number] 09/23/17 RESPIRATORY VENTILATION, LESS THAN 24 CONSECUTIVE HOURS [id number] 09/23/17 Assessment/Plan - Problem List Patient Problems: All Active Problems GASTRIC FEEDING TUBE DISLODGED (Acute) Nutritional Asmnt/Malnutr-PDOC - Dietary Evaluation Malnutrition Findings (Please click <Entered> for more info): Nutritional Asmnt/Malnutrition Start: 11/03/17 14: 15 Text: Status: Complete Freq: Document 11/03/17 14:15 ELGIN (Rec: 11/03/17 14:45 ELGIN [email or web address]) Nutritional Asmnt/Malnutrition Patient General Information Nutritional Screening High Risk Consult Diagnosis UTI Pertinent Medical Hx/Surgical Hx MR, cerebral palsy, seizure, colectomy, generalized contractures, ileostomy Subjective Information Consult received for freddy cox. Pt had gtube replacement this morning. Pt now on TPN. May start tube feeding if small bowel series does not show bowel obstruction per MD note. Current Diet Order/ Nutrition Support TPN D10% A4.25%, lipid 20% 150ml at 50ml/hr providing 912kcal, 51g protein Pertinent Medications D5-0.9%ns, novolog, synthroid, k phos Pertinent Labs 11/03 cl 113, Bun 45, glucose 100, POC 92 Nutritional Hx/Data Height 1.78 m Height (Calculated Centimeters) 177.8 Current Weight (lbs) 68.492 kg Weight (Calculated Kilograms) 68.5 Weight (Calculated Grams) 34867.4 [place] Body Weight 166 Body Mass Index (BMI) 21.7 Weight Status Approriate GI Symptoms GI Symptoms None Last BM 0 Difficult in: None Skin Integrity/Comment: rash to right and left foot, scar to abdomen Current %PO Good (75-100%) Estimated Nutritional Goals BEE in Kcals: Using Current wt Calories/Kcals/Kg 23-27 Kcals Calculated 7563-7318 Protein: Using Current wt Protein g/k-1.1 Protein Calculated 69-76 Fluid: ml 1587-1863ml 91ml/kcal) Nutritional Problem No current Nutrition Prob Problem altered GI function Etiology possible small bowel obstruction Signs/Symptoms: pt on TPN Malnutrition Alert Protein-Calorie Malnutrition N/A Is there a minimum of two criteria No selected? Query Text:Check all the applicable criteria. A minimum of two criteria are recommended for diagnosis of either severe or non-severe malnutrition. Intervention/Recommendation Comments 1. If continue with TPN, recommend D12%, AA4%, lipid 20 % 200ml at 80ml/hr. it provides 1555kcal, 250CHO (2. 5mg/kg/min), 76g protein. 2. If TF needed, recommend Fibersource HN starting at 20ml/hr for first 24hr. If tolerated, increase to goal rate of 55ml and wean TPN. 3. Monitor nutrition support, wt, skin integrity and labs 3. F/U as high risk in 2-3 days, /-11/06 Expected Outcomes/Goals Expected Outcomes/Goals 1. Pt to meet at least 75% of nutritional needs via nutrition support with tolerance 2. Wt stability, skin to remain intact, labs to approach WNL.
[2017-11-05] MEDS ORDERED: Sodium Phosphate 30 MMOLE in Sodium Chloride 0.9% 250 ML IV ONE (09:30)
[2017-11-05] MEDS: Fluticasone Propionate 0.05mg/Actuation 16gm Nasal Spray NS SCH (09:34)
[2017-11-05] MEDS: Petrolatum (White) Oint 0.6 Oz Tube TP SCH ×2 (09:34→16:24)
[2017-11-05] MEDS: Saline 0.65% Nasal Spray NS SCH ×4 (09:34→21:09)
[2017-11-05] MEDS: Miconazole Nitrate 2% Cream 30gm TP SCH ×2 (09:35→16:25)
[2017-11-05] MEDS: Benztropine 1 MG TAB PO SCH ×2 (11:19→16:25)
[2017-11-05] MEDS: Multivitamin w/ Minerals Tab PO SCH (11:20)
[2017-11-05] MEDS: Levothyroxine 0.125 Mg Tab PO SCH (11:20)
[2017-11-05] MEDS: ONFI 20 MG PO SCH ×2 (11:20→16:25)
[2017-11-05] MEDS: Meropenem 500 mg in NS 0.9% 100 ML IV SCH ×2 (14:00→23:52)
[2017-11-05] MEDS: Chlorhexidine Gluconate 0.12% 480mL Bottle MM SCH (14:01)
[2017-11-05] MEDS: metroNIDAZOLE 500mg/NS 100mL 500 MG/100 ML BAG IV SCH ×2 (15:51→21:06)
--- NOTE | 2017-11-05 16:05 | Internal Medicine Prog Note ---
Internal Medicine Subjective - Subjective Service Date: 11/05/17 Patient seen and examined:: with staff Patient is:: awake Patient Complaints of:: vomitting Per staff patient has:: poor appetite, tolerating meds Internal Medicine Objective - Results Result Diagrams: 11/05/17 06:10 11/05/17 06:10 Recent Labs: Laboratory Last Values WBC 26.1 Th/cmm (4.8-10.8) H* D 11/05/17 06:10 RBC 4.67 Mil/cmm (4.30-5.70) 11/05/17 06:10 Hgb 14.9 gm/dL (12-16) 11/05/17 06:10 Hct 44.3 % (41.0-60) 11/05/17 06:10 MCV 94.8 fl (80-99) 11/05/17 06:10 MCH 31.9 pg (26.0-30.0) H 11/05/17 06:10 MCHC Differential 33.6 pg (28.0-36.0) 11/05/17 06:10 RDW 14.2 % (11.5-20.0) 11/05/17 06:10 Plt Count 349 Th/cmm (150-400) 11/05/17 06:10 MPV 8.6 fl 11/05/17 06:10 Neutrophils % 84.2 % (40.0-80.0) H 11/05/17 06:10 Lymphocytes % 4.3 % (20.0-50.0) L 11/05/17 06:10 Monocytes % 11.0 % (2.0-10.0) H 11/05/17 06:10 Eosinophils % 0.3 % (0.0-5.0) 11/05/17 06:10 Basophils % 0.2 % (0.0-2.0) 11/05/17 06:10 Neutrophils (Manual) 81 % (40-80) H 11/01/17 08:49 Lymphocytes 10 % (20-50) L 11/01/17 08:49 Monocytes 9 % (2-10) 11/01/17 08:49 Platelet Estimate ADEQUATE (NORMAL) 11/01/17 08:49 PT 10.4 SECONDS (9.5-11.5) 11/04/17 05:40 INR 1.00 (0.5-1.4) 11/04/17 05:40 PTT (Actin FS) 22.4 SECONDS (26.0-38.0) L 11/04/17 05:40 Sodium 142 mEq/L (136-145) 11/05/17 06:10 Potassium 4.1 mEq/L (3.5-5.1) 11/05/17 06:10 Chloride 113 mEq/L (98-107) H 11/05/17 06:10 Carbon Dioxide 22.3 mEq/L (21.0-31.0) 11/05/17 06:10 Anion Gap 10.8 (7.0-16.0) 11/05/17 06:10 BUN 29 mg/dL (7-25) H 11/05/17 06:10 Creatinine 0.7 mg/dL (0.7-1.3) 11/05/17 06:10 Est GFR ( Amer) > 60.0 ml/min (>90) 11/05/17 06:10 Est GFR (Non-Af Amer) > 60.0 ml/min 11/05/17 06:10 BUN/Creatinine Ratio 41.4 11/05/17 06:10 Glucose 154 mg/dL (70-105) H 11/05/17 06:10 POC Glucose 138 MG/DL (70 - 105) H 11/05/17 12:30 Whole Bld Lactic Acid 1.20 mmol/L (0.60-1.99) 11/01/17 08:49 Calcium 9.0 mg/dL (8.6-10.3) 11/05/17 06:10 Phosphorus 1.8 mg/dL (2.5-5.0) L 11/05/17 06:10 Magnesium 2.0 mg/dL (1.9-2.7) 11/05/17 06:10 Total Bilirubin 1.4 mg/dL (0.3-1.0) H 11/05/17 06:10 AST 25 U/L (13-39) 11/05/17 06:10 ALT 34 U/L (7-52) 11/05/17 06:10 Alkaline Phosphatase 122 U/L (34-104) H 11/05/17 06:10 Troponin I 0.03 ng/mL (0.01-0.05) 11/01/17 08:49 Total Protein 6.3 gm/dL (6.0-8.3) 11/05/17 06:10 Albumin 3.3 gm/dL (4.2-5.5) L 11/05/17 06:10 Globulin 3.0 gm/dL 11/05/17 06:10 Albumin/Globulin Ratio 1.1 (1.0-1.8) 11/05/17 06:10 Prealbumin 30 11/03/17 06:20 Triglycerides 196 mg/dL (<150) H 11/02/17 06:13 Cholesterol 158 mg/dL (<200) 11/03/17 06:20 Lipase 38 U/L (11-82) 11/01/17 08:49 TSH 12.56 uIU/ml (0.34-5.60) H 11/01/17 08:49 Urine Source RANDOM 11/01/17 09:20 Urine Color YELLOW 11/01/17 09:20 Urine Clarity HAZY (CLEAR) 11/01/17 09:20 Urine pH 5.5 (4.6 - 8.0) 11/01/17 09:20 Ur Specific [place] >= 1.030 (1.005-1.030) 11/01/17 09:20 Urine Protein 100 mg/dL (NEGATIVE) H 11/01/17 09:20 Urine Glucose (UA) NEGATIVE mg/dL (NEGATIVE) 11/01/17 09:20 Urine Ketones NEGATIVE mg/dL (NEGATIVE) 11/01/17 09:20 Urine Blood TRACE (NEGATIVE) 11/01/17 09:20 Urine Nitrate NEGATIVE (NEGATIVE) 11/01/17 09:20 Urine Bilirubin SMALL (NEGATIVE) H 11/01/17 09:20 Urine Urobilinogen 0.2 E.U./dL (0.2 - 1.0) 11/01/17 09:20 Ur Leukocyte Esterase SMALL (NEGATIVE) H 11/01/17 09:20 Urine RBC 0-2 /hpf (0-5) H 11/01/17 09:20 Urine WBC 50-100 /hpf (0-5) H 11/01/17 09:20 Ur Epithelial Cells MODERATE /lpf (FEW) 11/01/17 09:20 Urine Bacteria MODERATE /hpf (NONE SEEN) H 11/01/17 09:20 - Physical Exam Vitals and I&O: Vital Signs Temp 97.2 F 11/05/17 15:36 Pulse 106 11/05/17 15:36 Resp 18 11/05/17 15:36 BP 154/76 11/05/17 15:36 Pulse Ox 98 11/05/17 15:36 Intake & Output 11/04/17 11/05/17 11/05/17 18:59 06:59 18:59 Intake Total 2517 1821 Output Total 1200 1350 Balance 1317 471 Weight (lbs) 150 lb 180 lb Intake: Intake, IV Amount 1637 1821 D5-0.9%Ns 1,000 ml @ 20 611 mls/hr IV .Q24H [facility] Rx#: [id number] Levetiracetam 1,000 mg In 110 110 Sodium Chloride 0.9% 100 ml @ 200 mls/hr IV Q12H [facility] Rx#:[id number] Meropenem 500 mg In 100 100 Sodium Chloride 0.9% 100 ml @ 100 mls/hr IV Q12H [facility] Rx#:[id number] Multivitamin Inj 10 ml In 1427 Dextrose 70% 780 ml In Amino Acids 10% 500 ml In Intralipids 20% 150 ml @ 60 mls/hr IV .Q24H [facility] Rx#:[id number] Oral 0 TPN/PPN 480 Other 400 Output: Drainage 50 Left Anterior Abdomen 50 Urine 1200 1000 Stool 300 Other: # Bowel Movements 0 Stool Characteristics Liquid Liquid Weight Source Bedscale Bedscale Active Medications: Current Medications Acetaminophen (Tylenol) 650 mg PO Q6H PRN PRN Reason: PAIN OR FEVER >100 Acetaminophen/Hydrocodone Bitart ([place] 5mg/325mg) 1 tab PO Q6H PRN PRN Reason: PAIN/DISCOMFORT Stop: 12/31/17 10:05 Albuterol Sulfate (Albuterol 2.5mg/3ml Neb Ud) 2.5 mg HHN Q4HRT PRN PRN Reason: Shortness of Breath Stop: 12/31/17 11:19 Benztropine Mesylate (Cogentin) 1 mg PO BID [facility] Stop: 12/31/17 16:59 Last Admin: 11/05/17 11:19 Dose: Not Given Brimonidine Tartrate (Alphagan 0.2% Ophth Soln) 1 drop EACH EYE BID [facility] Stop: 12/31/17 16:59 Last Admin: 11/05/17 09:35 Dose: 1 drop Chlorhexidine Gluconate (Peridex) 15 ml MM DAILY [facility] Stop: 01/02/18 09:59 Last Admin: 11/05/17 14:01 Dose: 15 ml Clonazepam (Klonopin) 1 mg PO BID [facility] Stop: 12/31/17 16:59 Last Admin: 11/05/17 11:20 Dose: Not Given Dorzolamide/Timolol (Cosopt Ophth Soln) 1 drop RIGHT EYE BID [facility] Stop: 12/31/17 16:59 Last Admin: 11/05/17 09:35 Dose: 1 drop Escitalopram Oxalate (Lexapro) 20 mg PO DAILY [facility] PRN Reason: Protocol Stop: 01/01/18 08:59 Last Admin: 11/05/17 11:20 Dose: Not Given Fluticasone Propionate (Flonase) 2 spr NS DAILY [facility] Stop: 01/01/18 08:59 Last Admin: 11/05/17 09:34 Dose: 2 spr Hydrocortisone (Hydrocortisone 1%) 1 appl TP BID PRN PRN Reason: Rash Stop: 12/31/17 10:05 Meropenem 500 mg/ Sodium (Chloride) 100 mls @ 100 mls/hr IV Q12H [facility] Stop: 12/31/17 11:59 Last Admin: 11/05/17 14:00 Dose: 100 mls/hr Multivitamins/Minerals 10 ml/Dextrose/ Amino Acids/Electrolytes/ Fat Emulsion Intravenous 1,440 mls @ 60 mls/hr IV .Q24H [facility] Stop: 01/02/18 15:59 Last Admin: 11/04/17 16:53 Dose: 60 mls/hr Dextrose/Sodium Chloride (D5-0.9%Ns) 1,000 mls @ 20 mls/hr IV .Q24H [facility] Stop: 01/02/18 15:59 Last Admin: 11/04/17 23:44 Dose: 20 mls/hr Levetiracetam 1,000 mg/ Sodium (Chloride) 110 mls @ 200 mls/hr IV Q12H [facility] Stop: 01/02/18 20:59 Last Admin: 11/05/17 09:33 Dose: 200 mls/hr Amphotericin B 50 mg/ Sterile (Water) 1,000 mls @ 100 mls/hr IR Q24H [facility] Stop: 11/09/17 17:59 Last Infusion: 11/05/17 04:14 Dose: Infused Metronidazole (Flagyl) 500 mg in 100 mls @ 100 mls/hr IV Q8HR [facility] Stop: 01/04/18 12:59 Last Admin: 11/05/17 15:51 Dose: 100 mls/hr Insulin Aspart (Novolog Insulin Sliding Scale) 0 units SUBQ Q6HR [facility] PRN Reason: Protocol Stop: 01/02/18 07:59 Last Admin: 11/05/17 12:36 Dose: Not Given Lamotrigine (Lamictal) 200 mg PO DAILY [facility] Stop: 01/01/18 08:59 Last Admin: 11/05/17 11:20 Dose: Not Given Lamotrigine (Lamictal) 350 mg PO HS [facility] Stop: 12/31/17 20:59 Last Admin: 11/04/17 21:21 Dose: Not Given Latanoprost (Xalatan 0.005% Oph Sol) 1 drop EACH EYE HS [facility] Stop: 12/31/17 20:59 Last Admin: 11/04/17 20:28 Dose: 1 drop Levothyroxine Sodium (Synthroid) 0.125 mg PO DAILY [facility] Stop: 01/01/18 08:59 Last Admin: 11/05/17 11:20 Dose: Not Given Methotrexate (Methotrexate) 10 mg PO Tu@0730 [facility] PRN Reason: Protocol Stop: 01/03/18 07:29 Last Admin: 11/04/17 07:42 Dose: Not Given Miconazole Nitrate (Micatin 2%) 1 appl TP BID [facility] Stop: 12/31/17 16:59 Last Admin: 11/05/17 09:35 Dose: Not Given Miscellaneous (Ppn Per Pharmacy) 1 ea MC PRN PRN PRN Reason: PROTOCOL Stop: 12/31/17 10:15 Pantoprazole Sodium (Protonix) 40 mg IVP BID [facility] Stop: 12/31/17 16:59 Last Admin: 11/05/17 09:36 Dose: 40 mg Patient Own Med Onfi (20mg Tablet) 1 PO BID [facility] Stop: 01/01/18 16:59 Last Admin: 11/05/17 11:20 Dose: Not Given Patient Own Med (Aptiom 600mg Tablet) 1 PO QPM [facility] Stop: 01/01/18 16:59 Last Admin: 11/04/17 17:23 Dose: Not Given Petrolatum (Vaseline Oint) 1 appl TP BID [facility] Stop: 12/31/17 16:59 Last Admin: 11/05/17 09:34 Dose: 1 appl Quetiapine Fumarate (Seroquel) 25 mg PO BID [facility] PRN Reason: Protocol Stop: 12/31/17 16:59 Last Admin: 11/05/17 11:20 Dose: Not Given Rifaximin (Xifaxan) 600 mg PO BID [facility] Stop: 12/31/17 16:59 Last Admin: 11/05/17 11:20 Dose: Not Given Sodium Chloride ([place] Nasal [place]) 1 spr NS QID [facility] Stop: 12/31/17 12:59 Last Admin: 11/05/17 14:02 Dose: 1 spr General: weak HEENT: NC/AT, PERRLA Neck: Supple Lungs: CTAB Cardiovascular: RRR, Normal S1, Normal S2, without murmur Abdomen: soft, +GT, positive bowel sound Extremities: excoriation - Procedures Procedures: Procedures Procedure Code Date BYPASS ILEUM TO CUTANEOUS, OPEN APPROACH [id number] 09/23/17 CHANGE FEEDING DEVICE IN UP INTEST TRACT, INSULATOR TESTER APPROACH [id number] 11/01/17 CHANGE GASTROSTOMY TUBE 87190 11/01/17 DRAINAGE OF SMALL INTESTINE, ENDO [id number] 11/01/17 EXPLORATION OF ABDOMEN 32130 11/01/17 FREEING OF BOWEL ADHESION 12938 11/01/17 ILEOSTOMY/JEJUNOSTOMY 91802 09/23/17 INSERTION OF ENDOTRACHEAL AIRWAY INTO TRACHEA, VIA OPENING [id number] 09/23/17 INSERTION OF FEEDING DEVICE INTO STOMACH, OPEN APPROACH [id number] 09/23/17 INTRODUCTION OF NUTRITIONAL INTO CENTRAL VEIN, PERC APPROACH [id number] 09/23/17 PARTIAL REMOVAL OF COLON 01561 09/23/[address] PL[address] GASTROSTOMY TUBE 83160 09/23/17 RELEASE PERITONEUM, OPEN APPROACH [id number] 09/23/17 RELEASE SMALL INTESTINE, OPEN APPROACH [id number] 11/01/17 REPAIR SMALL INTESTINE, OPEN APPROACH [id number] 11/01/17 RESECTION OF LARGE INTESTINE, OPEN APPROACH [id number] 09/23/17 RESPIRATORY VENTILATION, LESS THAN 24 CONSECUTIVE HOURS [id number] 09/23/17 SUTURE SMALL INTESTINE 15634 11/01/17 Internal Medicine Assmt/Plan - Assessment Assessment: s/p peg placement sepsis intractable vomiting small bowel obstruction acute renal insufficiency acute uti mr cp seizures generalized contractures - Plan Plan: continue with bladder irrigation CONTINUE WITH PPN FOR NUTRITIONAL SUPPORT MONITOR LYTES CONTINUE CURRENT PLAN OF CARE Nutritional Asmnt/Malnutr-PDOC - Dietary Evaluation Malnutrition Findings (Please click <Entered> for more info): Nutritional Asmnt/Malnutrition Start: 11/03/17 14: 15 Text: Status: Complete Freq: Document 11/03/17 14:15 LCHENG (Rec: 11/03/17 14:45 [email or web address]) Nutritional Asmnt/Malnutrition Patient General Information Nutritional Screening High Risk Consult Diagnosis UTI Pertinent Medical Hx/Surgical Hx MR, cerebral palsy, seizure, colectomy, generalized contractures, ileostomy Subjective Information Consult received for freddy cox. Pt had gtube replacement this morning. Pt now on TPN. May start tube feeding if small bowel series does not show bowel obstruction per MD note. Current Diet Order/ Nutrition Support TPN D10% A4.25%, lipid 20% 150ml at 50ml/hr providing 912kcal, 51g protein Pertinent Medications D5-0.9%ns, novolog, synthroid, k phos Pertinent Labs 11/03 cl 113, Bun 45, glucose 100, POC 92 Nutritional Hx/Data Height 5 ft 10 in Height (Calculated Centimeters) 177.8 Current Weight (lbs) 151 lb Weight (Calculated Kilograms) 68.5 Weight (Calculated Grams) 73859.4 [place] Body Weight 166 Body Mass Index (BMI) 21.7 Weight Status Approriate GI Symptoms GI Symptoms None Last BM 0 Difficult in: None Skin Integrity/Comment: rash to right and left foot, scar to abdomen Current %PO Good (75-100%) Estimated Nutritional Goals BEE in Kcals: Using Current wt Calories/Kcals/Kg 23-27 Kcals Calculated 7057-9888 Protein: Using Current wt Protein g/k-1.1 Protein Calculated 69-76 Fluid: ml 1587-1863ml 91ml/kcal) Nutritional Problem No current Nutrition Prob Problem altered GI function Etiology possible small bowel obstruction Signs/Symptoms: pt on TPN Malnutrition Alert Protein-Calorie Malnutrition N/A Is there a minimum of two criteria No selected? Query Text:Check all the applicable criteria. A minimum of two criteria are recommended for diagnosis of either severe or non-severe malnutrition. Intervention/Recommendation Comments 1. If continue with TPN, recommend D12%, AA4%, lipid 20 % 200ml at 80ml/hr. it provides 1555kcal, 250CHO (2. 5mg/kg/min), 76g protein. 2. If TF needed, recommend Fibersource HN starting at 20ml/hr for first 24hr. If tolerated, increase to goal rate of 55ml and wean TPN. 3. Monitor nutrition support, wt, skin integrity and labs 3. F/U as high risk in 2-3 days, 5/2-5/3 Expected Outcomes/Goals Expected Outcomes/Goals 1. Pt to meet at least 75% of nutritional needs via nutrition support with tolerance 2. Wt stability, skin to remain intact, labs to approach WNL.
[2017-11-05] MEDS: APTIOM 600 MG PO SCH (16:24)
[2017-11-05] MEDS: STERILE WATER FOR IRRIGATION IR SCH (17:20)
[2017-11-05] MEDS: AMPHOTERICIN B IR SCH (17:20)
[2017-11-05] MEDS: TPN 10%-70% CUSTOM IV SCH (17:21)
[2017-11-06] MEDS: INSULIN ASPART SLIDING SCALE 100 UNITS/ML UNIT SUBQ SCH ×4 (03:37→17:48)
[2017-11-06] MEDS: metroNIDAZOLE 500mg/NS 100mL 500 MG/100 ML BAG IV SCH ×3 (05:50→21:06)
[2017-11-06 06:41] LABS: BASOPHILE ABSOLUTE 0.1 Th/cumm (0-0.2); EOSINOPHILE ABSOLUTE 0.6 Th/cmm (0.1-0.4); HEMATOCRIT 41.2 % (41.0-60); HEMOGLOBIN 13.8 gm/dL (12-16); LYMPHOCYTE ABSOLUTE 1.5 Th/cmm (1.5-3.0); MANUAL DIFF REQUIRED? YES; MEAN CELL VOLUME 95.6 fl (80-99); MEAN CORPUSCULAR HGB CONC 33.5 pg (28.0-36.0); MEAN PLATELET VOLUME 8.7 fl; MONOCYTE ABSOLUTE 3.5 Th/cmm (0.3-1.0); NEUTROPHILE ABSOLUTE 19.3 Th/cmm (1.8-8.0); PLATELET COUNT 324 Th/cmm (150-400); RED BLOOD COUNT 4.31 Mil/cmm (4.30-5.70); RED CELL DISTRIBUTION WIDTH 14.6 % (11.5-20.0)
[2017-11-06 06:51] LABS: ALB/GLOB RATIO 1.1 (1.0-1.8); ALBUMIN 3.2 gm/dL (4.2-5.5); ALKALINE PHOSPHATASE 125 U/L (34-104); ANION GAP 13.7 (7.0-16.0); BILIRUBIN,TOTAL 1.4 mg/dL (0.3-1.0); BUN - UREA NITROGEN 29 mg/dL (7-25); CALCIUM SERUM 8.9 mg/dL (8.6-10.3); CARBON DIOXIDE 20.3 mEq/L (21.0-31.0); CHLORIDE 112 mEq/L (98-107); CREATININE - SERUM 0.7 mg/dL (0.7-1.3); GFR AFRICAN-AMERICAN > 60.0 ml/min (>90); GFR NON AFRICAN-AMERICAN > 60.0 ml/min; GLUCOSE 139 mg/dL (70-105); MAGNESIUM 2.1 mg/dL (1.9-2.7); SGOT 24 U/L (13-39); SGPT/ALT 30 U/L (7-52); SODIUM SERUM 142 mEq/L (136-145); TOTAL PROTEIN,SERUM 6.1 gm/dL (6.0-8.3)
[2017-11-06 07:22] LABS: EOSINOPHIL 1 % (0-5); LYMPHOCYTE 4 % (20-50); MONOCYTE 13 % (2-10); NEUTROPHILS 82 % (40-80); PLATELET ESTIMATE ADEQUATE (NORMAL); TOTAL CELLS COUNTED 100
--- NOTE | 2017-11-06 07:57 | General Progress Note ---
Subjective - Review of Systems Service Date: 11/06/17 Events since last encounter: having ileostomy output, start GT feedings JULIUS drain 50 cc Objective - Results Result Diagrams: 11/06/17 05:45 11/06/17 05:45 Recent Labs: Laboratory Last Values WBC 25.0 Th/cmm (4.8-10.8) H* 11/06/17 05:45 RBC 4.31 Mil/cmm (4.30-5.70) 11/06/17 05:45 Hgb 13.8 gm/dL (12-16) 11/06/17 05:45 Hct 41.2 % (41.0-60) 11/06/17 05:45 MCV 95.6 fl (80-99) 11/06/17 05:45 MCH 32.0 pg (26.0-30.0) H 11/06/17 05:45 MCHC Differential 33.5 pg (28.0-36.0) 11/06/17 05:45 RDW 14.6 % (11.5-20.0) 11/06/17 05:45 Plt Count 324 Th/cmm (150-400) 11/06/17 05:45 MPV 8.7 fl 11/06/17 05:45 Neutrophils % 84.2 % (40.0-80.0) H 11/05/17 06:10 Lymphocytes % 4.3 % (20.0-50.0) L 11/05/17 06:10 Monocytes % 11.0 % (2.0-10.0) H 11/05/17 06:10 Eosinophils % 0.3 % (0.0-5.0) 11/05/17 06:10 Basophils % 0.2 % (0.0-2.0) 11/05/17 06:10 Neutrophils (Manual) 82 % (40-80) H 11/06/17 05:45 Lymphocytes 4 % (20-50) L 11/06/17 05:45 Monocytes 13 % (2-10) H 11/06/17 05:45 Eosinophils 1 % (0-5) 11/06/17 05:45 Platelet Estimate ADEQUATE (NORMAL) 11/06/17 05:45 PT 10.4 SECONDS (9.5-11.5) 11/04/17 05:40 INR 1.00 (0.5-1.4) 11/04/17 05:40 PTT (Actin FS) 22.4 SECONDS (26.0-38.0) L 11/04/17 05:40 Sodium 142 mEq/L (136-145) 11/06/17 05:45 Potassium 4.0 mEq/L (3.5-5.1) 11/06/17 05:45 Chloride 112 mEq/L (98-107) H 11/06/17 05:45 Carbon Dioxide 20.3 mEq/L (21.0-31.0) L 11/06/17 05:45 Anion Gap 13.7 (7.0-16.0) 11/06/17 05:45 BUN 29 mg/dL (7-25) H 11/06/17 05:45 Creatinine 0.7 mg/dL (0.7-1.3) 11/06/17 05:45 Est GFR ( Amer) > 60.0 ml/min (>90) 11/06/17 05:45 Est GFR (Non-Af Amer) > 60.0 ml/min 11/06/17 05:45 BUN/Creatinine Ratio 41.4 11/06/17 05:45 Glucose 139 mg/dL (70-105) H 11/06/17 05:45 POC Glucose 155 MG/DL (70 - 105) H 11/06/17 05:52 Whole Bld Lactic Acid 1.20 mmol/L (0.60-1.99) 11/01/17 08:49 Calcium 8.9 mg/dL (8.6-10.3) 11/06/17 05:45 Phosphorus 1.8 mg/dL (2.5-5.0) L 11/05/17 06:10 Magnesium 2.1 mg/dL (1.9-2.7) 11/06/17 05:45 Total Bilirubin 1.4 mg/dL (0.3-1.0) H 11/06/17 05:45 AST 24 U/L (13-39) 11/06/17 05:45 ALT 30 U/L (7-52) 11/06/17 05:45 Alkaline Phosphatase 125 U/L (34-104) H 11/06/17 05:45 Troponin I 0.03 ng/mL (0.01-0.05) 11/01/17 08:49 B-Natriuretic Peptide 66.6 pg/mL (5.0-100.0) 11/06/17 05:45 Total Protein 6.1 gm/dL (6.0-8.3) 11/06/17 05:45 Albumin 3.2 gm/dL (4.2-5.5) L 11/06/17 05:45 Globulin 2.9 gm/dL 11/06/17 05:45 Albumin/Globulin Ratio 1.1 (1.0-1.8) 11/06/17 05:45 Prealbumin 30 mg/dL (10-36) 11/03/17 06:20 Triglycerides 196 mg/dL (<150) H 11/02/17 06:13 Cholesterol 158 mg/dL (<200) 11/03/17 06:20 Lipase 38 U/L (11-82) 11/01/17 08:49 TSH 12.56 uIU/ml (0.34-5.60) H 11/01/17 08:49 Urine Source RANDOM 11/01/17 09:20 Urine Color YELLOW 11/01/17 09:20 Urine Clarity HAZY (CLEAR) 11/01/17 09:20 Urine pH 5.5 (4.6 - 8.0) 11/01/17 09:20 Ur Specific [place] >= 1.030 (1.005-1.030) 11/01/17 09:20 Urine Protein 100 mg/dL (NEGATIVE) H 11/01/17 09:20 Urine Glucose (UA) NEGATIVE mg/dL (NEGATIVE) 11/01/17 09:20 Urine Ketones NEGATIVE mg/dL (NEGATIVE) 11/01/17 09:20 Urine Blood TRACE (NEGATIVE) 11/01/17 09:20 Urine Nitrate NEGATIVE (NEGATIVE) 11/01/17 09:20 Urine Bilirubin SMALL (NEGATIVE) H 11/01/17 09:20 Urine Urobilinogen 0.2 E.U./dL (0.2 - 1.0) 11/01/17 09:20 Ur Leukocyte Esterase SMALL (NEGATIVE) H 11/01/17 09:20 Urine RBC 0-2 /hpf (0-5) H 11/01/17 09:20 Urine WBC 50-100 /hpf (0-5) H 11/01/17 09:20 Ur Epithelial Cells MODERATE /lpf (FEW) 11/01/17 09:20 Urine Bacteria MODERATE /hpf (NONE SEEN) H 11/01/17 09:20 - Physical Exam Vitals and I&O: Vital Signs Temp 96.8 F 11/06/17 07:46 Pulse 81 11/06/17 07:46 Resp 19 11/06/17 07:46 BP 126/69 11/06/17 07:46 Pulse Ox 95 11/06/17 07:46 Intake & Output 11/05/17 11/06/17 11/06/17 18:59 06:59 18:59 Intake Total 2470 100 Output Total 720 500 Balance 1750 -400 Weight (lbs) 81.647 kg 91.172 kg Intake: Intake, IV Amount 1750 100 Levetiracetam 1,000 mg In 110 Sodium Chloride 0.9% 100 ml @ 200 mls/hr IV Q12H [facility] Rx#:[id number] Meropenem 500 mg In 100 Sodium Chloride 0.9% 100 ml @ 100 mls/hr IV Q12H [facility] Rx#:[id number] Multivitamin Inj 10 ml In 1440 Dextrose 70% 780 ml In Amino Acids 10% 500 ml In Intralipids 20% 150 ml @ 60 mls/hr IV .Q24H [facility] Rx#:[id number] metroNIDAZOLE 500mg/NS 100 100 100mL 500 mg In 100 ml @ 100 mls/hr IV Q8HR [facility] Rx #:[id number] TPN/PPN 720 Output: Gastric Drainage 100 Drainage 20 Left Anterior Abdomen 20 Urine 600 500 Other: Stool Characteristics Liquid Liquid Weight Source Bedscale Bedscale Active Medications: Current Medications Acetaminophen (Tylenol) 650 mg PO Q6H PRN PRN Reason: PAIN OR FEVER >100 Acetaminophen/Hydrocodone Bitart ([place] 5mg/325mg) 1 tab PO Q6H PRN PRN Reason: PAIN/DISCOMFORT Stop: 12/31/17 10:05 Albuterol Sulfate (Albuterol 2.5mg/3ml Neb Ud) 2.5 mg HHN Q4HRT PRN PRN Reason: Shortness of Breath Stop: 12/31/17 11:19 Benztropine Mesylate (Cogentin) 1 mg PO BID [facility] Stop: 12/31/17 16:59 Last Admin: 11/05/17 16:25 Dose: Not Given Brimonidine Tartrate (Alphagan 0.2% Ophth Soln) 1 drop EACH EYE BID [facility] Stop: 12/31/17 16:59 Last Admin: 11/05/17 16:23 Dose: 1 drop Chlorhexidine Gluconate (Peridex) 15 ml MM DAILY [facility] Stop: 01/02/18 09:59 Last Admin: 11/05/17 14:01 Dose: 15 ml Clonazepam (Klonopin) 1 mg PO BID [facility] Stop: 12/31/17 16:59 Last Admin: 11/05/17 16:25 Dose: Not Given Dorzolamide/Timolol (Cosopt Ophth Soln) 1 drop RIGHT EYE BID [facility] Stop: 12/31/17 16:59 Last Admin: 11/05/17 16:23 Dose: 1 drop Escitalopram Oxalate (Lexapro) 20 mg PO DAILY [facility] PRN Reason: Protocol Stop: 01/01/18 08:59 Last Admin: 11/05/17 11:20 Dose: Not Given Fluticasone Propionate (Flonase) 2 spr NS DAILY [facility] Stop: 01/01/18 08:59 Last Admin: 11/05/17 09:34 Dose: 2 spr Hydrocortisone (Hydrocortisone 1%) 1 appl TP BID PRN PRN Reason: Rash Stop: 12/31/17 10:05 Meropenem 500 mg/ Sodium (Chloride) 100 mls @ 100 mls/hr IV Q12H [facility] Stop: 12/31/17 11:59 Last Admin: 11/05/17 23:52 Dose: 100 mls/hr Multivitamins/Minerals 10 ml/Dextrose/ Amino Acids/Electrolytes/ Fat Emulsion Intravenous 1,440 mls @ 60 mls/hr IV .Q24H [facility] Stop: 01/02/18 15:59 Last Admin: 11/05/17 17:21 Dose: 60 mls/hr Dextrose/Sodium Chloride (D5-0.9%Ns) 1,000 mls @ 20 mls/hr IV .Q24H [facility] Stop: 01/02/18 15:59 Last Admin: 11/04/17 23:44 Dose: 20 mls/hr Levetiracetam 1,000 mg/ Sodium (Chloride) 110 mls @ 200 mls/hr IV Q12H [facility] Stop: 01/02/18 20:59 Last Admin: 05/02/18 21:06 Dose: 200 mls/hr Amphotericin B 50 mg/ Sterile (Water) 1,000 mls @ 100 mls/hr IR Q24H [facility] Stop: 11/09/17 17:59 Last Admin: 11/05/17 17:20 Dose: 100 mls/hr Metronidazole (Flagyl) 500 mg in 100 mls @ 100 mls/hr IV Q8HR [facility] Stop: 01/04/18 12:59 Last Admin: 11/06/17 05:50 Dose: 100 mls/hr Insulin Aspart (Novolog Insulin Sliding Scale) 0 units SUBQ Q6HR [facility] PRN Reason: Protocol Stop: 01/02/18 07:59 Last Admin: 11/06/17 06:01 Dose: 2 units Lamotrigine (Lamictal) 200 mg PO DAILY [facility] Stop: 01/01/18 08:59 Last Admin: 11/05/17 11:20 Dose: Not Given Lamotrigine (Lamictal) 350 mg PO HS [facility] Stop: 12/31/17 20:59 Last Admin: 11/05/17 21:07 Dose: Not Given Latanoprost (Xalatan 0.005% [facility] Sol) 1 drop EACH EYE HS [facility] Stop: 12/31/17 20:59 Last Admin: 11/05/17 21:06 Dose: 1 drop Levothyroxine Sodium (Synthroid) 0.125 mg PO DAILY [facility] Stop: 01/01/18 08:59 Last Admin: 11/05/17 11:20 Dose: Not Given Methotrexate (Methotrexate) 10 mg PO Tu@0730 [facility] PRN Reason: Protocol Stop: 01/03/18 07:29 Last Admin: 11/04/17 07:42 Dose: Not Given Miconazole Nitrate (Micatin 2%) 1 appl TP BID [facility] Stop: 12/31/17 16:59 Last Admin: 11/05/17 16:25 Dose: Not Given Miscellaneous (Ppn Per Pharmacy) 1 ea MC PRN PRN PRN Reason: PROTOCOL Stop: 12/31/17 10:15 Pantoprazole Sodium (Protonix) 40 mg IVP BID [facility] Stop: 12/31/17 16:59 Last Admin: 11/05/17 16:23 Dose: 40 mg Patient Own Med Onfi (20mg Tablet) 1 PO BID [facility] Stop: 01/01/18 16:59 Last Admin: 11/05/17 16:25 Dose: Not Given Patient Own Med (Aptiom 600mg Tablet) 1 PO QPM [facility] Stop: 01/01/18 16:59 Last Admin: 11/05/17 16:24 Dose: Not Given Petrolatum (Vaseline Oint) 1 appl TP BID [facility] Stop: 12/31/17 16:59 Last Admin: 11/05/17 16:24 Dose: 1 appl Quetiapine Fumarate (Seroquel) 25 mg PO BID [facility] PRN Reason: Protocol Stop: 12/31/17 16:59 Last Admin: 11/05/17 16:25 Dose: Not Given Rifaximin (Xifaxan) 600 mg PO BID [facility] Stop: 12/31/17 16:59 Last Admin: 11/05/17 16:25 Dose: Not Given Sodium Chloride ([place] Nasal [place]) 1 spr NS QID [facility] Stop: 12/31/17 12:59 Last Admin: 11/05/17 21:09 Dose: 1 spr - Procedures Procedures: Procedures Procedure Code Date BYPASS ILEUM TO CUTANEOUS, OPEN APPROACH [id number] 09/23/17 CHANGE FEEDING DEVICE IN UP INTEST TRACT, CONCRETE [employer] OPERATOR APPROACH [id number] 11/01/17 CHANGE GASTROSTOMY TUBE 32102 11/01/17 DRAINAGE OF SMALL INTESTINE, ENDO [id number] 11/01/17 EXPLORATION OF ABDOMEN 44290 11/01/17 FREEING OF BOWEL ADHESION 66230 11/01/17 ILEOSTOMY/JEJUNOSTOMY 25337 09/23/17 INSERTION OF ENDOTRACHEAL AIRWAY INTO TRACHEA, VIA OPENING [id number] 09/23/17 INSERTION OF FEEDING DEVICE INTO STOMACH, OPEN APPROACH [id number] 09/23/17 INTRODUCTION OF NUTRITIONAL INTO CENTRAL VEIN, PERC APPROACH [id number] 09/23/17 PARTIAL REMOVAL OF COLON 73826 09/23/[address] PLACE GASTROSTOMY TUBE 93334 09/23/17 RELEASE PERITONEUM, OPEN APPROACH 6MIG5CL 09/23/17 RELEASE SMALL INTESTINE, OPEN APPROACH [id number] 11/01/17 REPAIR SMALL INTESTINE, OPEN APPROACH 4EN80VG 11/01/17 RESECTION OF LARGE INTESTINE, OPEN APPROACH 2QYM2HD 09/23/17 RESPIRATORY VENTILATION, LESS THAN 24 CONSECUTIVE HOURS [id number] 09/23/17 SUTURE SMALL INTESTINE 40655 11/01/17 Assessment/Plan - Problem List Patient Problems: All Active Problems GASTRIC FEEDING TUBE DISLODGED (Acute) Nutritional Asmnt/Malnutr-PDOC - Dietary Evaluation Malnutrition Findings (Please click <Entered> for more info): Nutritional Asmnt/Malnutrition Start: 11/03/17 14: 15 Text: Status: Complete Freq: Document 11/03/17 14:15 ELGIN (Rec: 11/03/17 14:45 [email or web address] [email or web address]) Nutritional Asmnt/Malnutrition Patient General Information Nutritional Screening High Risk Consult Diagnosis UTI Pertinent Medical Hx/Surgical Hx MR, cerebral palsy, seizure, colectomy, generalized contractures, ileostomy Subjective Information Consult received for freddy kenny. Pt had gtube replacement this morning. Pt now on TPN. May start tube feeding if small bowel series does not show bowel obstruction per MD note. Current Diet Order/ Nutrition Support TPN D10% A4.25%, lipid 20% 150ml at 50ml/hr providing 912kcal, 51g protein Pertinent Medications D5-0.9%ns, novolog, synthroid, k phos Pertinent Labs 11/03 cl 113, Bun 45, glucose 100, POC 92 Nutritional Hx/Data Height 1.78 m Height (Calculated Centimeters) 177.8 Current Weight (lbs) 68.492 kg Weight (Calculated Kilograms) 68.5 Weight (Calculated Grams) 82181.4 [place] Body Weight 166 Body Mass Index (BMI) 21.7 Weight Status Approriate GI Symptoms GI Symptoms None Last BM 0 Difficult in: None Skin Integrity/Comment: rash to right and left foot, scar to abdomen Current %PO Good (75-100%) Estimated Nutritional Goals BEE in Kcals: Using Current wt Calories/Kcals/Kg 23-27 Kcals Calculated 1697-2189 Protein: Using Current wt Protein g/k-1.1 Protein Calculated 69-76 Fluid: ml 1587-1863ml 91ml/kcal) Nutritional Problem No current Nutrition Prob Problem altered GI function Etiology possible small bowel obstruction Signs/Symptoms: pt on TPN Malnutrition Alert Protein-Calorie Malnutrition N/A Is there a minimum of two criteria No selected? Query Text:Check all the applicable criteria. A minimum of two criteria are recommended for diagnosis of either severe or non-severe malnutrition. Intervention/Recommendation Comments 1. If continue with TPN, recommend D12%, AA4%, lipid 20 % 200ml at 80ml/hr. it provides 1555kcal, 250CHO (2. 5mg/kg/min), 76g protein. 2. If TF needed, recommend Fibersource HN starting at 20ml/hr for first 24hr. If tolerated, increase to goal rate of 55ml and wean TPN. 3. Monitor nutrition support, wt, skin integrity and labs 3. F/U as high risk in 2-3 days, 5/2-/ Expected Outcomes/Goals Expected Outcomes/Goals 1. Pt to meet at least 75% of nutritional needs via nutrition support with tolerance 2. Wt stability, skin to remain intact, labs to approach WNL.
[2017-11-06] MEDS ORDERED: Sodium Phosphate 20 MMOLE in Sodium Chloride 0.9% 250 ML IV ONE (10:00)
[2017-11-06] MEDS: Multivitamin w/ Minerals Tab PO SCH (10:11)
[2017-11-06] MEDS: Benztropine 1 MG TAB PO SCH ×2 (10:11→16:24)
[2017-11-06] MEDS: Petrolatum (White) Oint 0.6 Oz Tube TP SCH ×2 (10:13→16:25)
[2017-11-06] MEDS: Fluticasone Propionate 0.05mg/Actuation 16gm Nasal Spray NS SCH (10:15)
[2017-11-06] MEDS: ONFI 20 MG PO SCH ×2 (10:15→16:25)
[2017-11-06] MEDS: Miconazole Nitrate 2% Cream 30gm TP SCH ×2 (10:15→16:27)
[2017-11-06] MEDS: Saline 0.65% Nasal Spray NS SCH ×4 (10:16→21:06)
[2017-11-06] MEDS: Levothyroxine 0.125 Mg Tab PO SCH (10:16)
[2017-11-06] MEDS: Chlorhexidine Gluconate 0.12% 480mL Bottle MM SCH (10:16)
[2017-11-06] MEDS: Meropenem 500 mg in NS 0.9% 100 ML IV SCH (12:36)
--- NOTE | 2017-11-06 13:51 | GI Progress Note ---
Subjective - Review of Systems Subjective: HAD SBO SURGERY NO EVENTS Objective - Results Result Diagrams: 11/06/17 05:45 11/06/17 05:45 Recent Labs: Laboratory Last Values WBC 25.0 Th/cmm (4.8-10.8) H* 11/06/17 05:45 RBC 4.31 Mil/cmm (4.30-5.70) 11/06/17 05:45 Hgb 13.8 gm/dL (12-16) 11/06/17 05:45 Hct 41.2 % (41.0-60) 11/06/17 05:45 MCV 95.6 fl (80-99) 11/06/17 05:45 MCH 32.0 pg (26.0-30.0) H 11/06/17 05:45 MCHC Differential 33.5 pg (28.0-36.0) 11/06/17 05:45 RDW 14.6 % (11.5-20.0) 11/06/17 05:45 Plt Count 324 Th/cmm (150-400) 11/06/17 05:45 MPV 8.7 fl 11/06/17 05:45 Neutrophils % 84.2 % (40.0-80.0) H 11/05/17 06:10 Lymphocytes % 4.3 % (20.0-50.0) L 11/05/17 06:10 Monocytes % 11.0 % (2.0-10.0) H 11/05/17 06:10 Eosinophils % 0.3 % (0.0-5.0) 11/05/17 06:10 Basophils % 0.2 % (0.0-2.0) 11/05/17 06:10 Neutrophils (Manual) 82 % (40-80) H 11/06/17 05:45 Lymphocytes 4 % (20-50) L 11/06/17 05:45 Monocytes 13 % (2-10) H 11/06/17 05:45 Eosinophils 1 % (0-5) 11/06/17 05:45 Platelet Estimate ADEQUATE (NORMAL) 11/06/17 05:45 PT 10.4 SECONDS (9.5-11.5) 11/04/17 05:40 INR 1.00 (0.5-1.4) 11/04/17 05:40 PTT (Actin FS) 22.4 SECONDS (26.0-38.0) L 11/04/17 05:40 Sodium 142 mEq/L (136-145) 11/06/17 05:45 Potassium 4.0 mEq/L (3.5-5.1) 11/06/17 05:45 Chloride 112 mEq/L (98-107) H 11/06/17 05:45 Carbon Dioxide 20.3 mEq/L (21.0-31.0) L 11/06/17 05:45 Anion Gap 13.7 (7.0-16.0) 11/06/17 05:45 BUN 29 mg/dL (7-25) H 11/06/17 05:45 Creatinine 0.7 mg/dL (0.7-1.3) 11/06/17 05:45 Est GFR ( Amer) > 60.0 ml/min (>90) 11/06/17 05:45 Est GFR (Non-Af Amer) > 60.0 ml/min 11/06/17 05:45 BUN/Creatinine Ratio 41.4 11/06/17 05:45 Glucose 139 mg/dL (70-105) H 11/06/17 05:45 POC Glucose 132 MG/DL (70 - 105) H 11/06/17 11:46 Whole Bld Lactic Acid 1.20 mmol/L (0.60-1.99) 11/01/17 08:49 Calcium 8.9 mg/dL (8.6-10.3) 11/06/17 05:45 Phosphorus 2.3 mg/dL (2.5-5.0) L 11/06/17 05:45 Magnesium 2.1 mg/dL (1.9-2.7) 11/06/17 05:45 Total Bilirubin 1.4 mg/dL (0.3-1.0) H 11/06/17 05:45 AST 24 U/L (13-39) 11/06/17 05:45 ALT 30 U/L (7-52) 11/06/17 05:45 Alkaline Phosphatase 125 U/L (34-104) H 11/06/17 05:45 Troponin I 0.03 ng/mL (0.01-0.05) 11/01/17 08:49 B-Natriuretic Peptide 66.6 pg/mL (5.0-100.0) 11/06/17 05:45 Total Protein 6.1 gm/dL (6.0-8.3) 11/06/17 05:45 Albumin 3.2 gm/dL (4.2-5.5) L 11/06/17 05:45 Globulin 2.9 gm/dL 11/06/17 05:45 Albumin/Globulin Ratio 1.1 (1.0-1.8) 11/06/17 05:45 Prealbumin 30 mg/dL (10-36) 11/03/17 06:20 Triglycerides 196 mg/dL (<150) H 11/02/17 06:13 Cholesterol 158 mg/dL (<200) 11/03/17 06:20 Lipase 38 U/L (11-82) 11/01/17 08:49 TSH 12.56 uIU/ml (0.34-5.60) H 11/01/17 08:49 Urine Source RANDOM 11/01/17 09:20 Urine Color YELLOW 11/01/17 09:20 Urine Clarity HAZY (CLEAR) 11/01/17 09:20 Urine pH 5.5 (4.6 - 8.0) 11/01/17 09:20 Ur Specific [place] >= 1.030 (1.005-1.030) 11/01/17 09:20 Urine Protein 100 mg/dL (NEGATIVE) H 11/01/17 09:20 Urine Glucose (UA) NEGATIVE mg/dL (NEGATIVE) 11/01/17 09:20 Urine Ketones NEGATIVE mg/dL (NEGATIVE) 11/01/17 09:20 Urine Blood TRACE (NEGATIVE) 11/01/17 09:20 Urine Nitrate NEGATIVE (NEGATIVE) 11/01/17 09:20 Urine Bilirubin SMALL (NEGATIVE) H 11/01/17 09:20 Urine Urobilinogen 0.2 E.U./dL (0.2 - 1.0) 11/01/17 09:20 Ur Leukocyte Esterase SMALL (NEGATIVE) H 11/01/17 09:20 Urine RBC 0-2 /hpf (0-5) H 11/01/17 09:20 Urine WBC 50-100 /hpf (0-5) H 11/01/17 09:20 Ur Epithelial Cells MODERATE /lpf (FEW) 11/01/17 09:20 Urine Bacteria MODERATE /hpf (NONE SEEN) H 11/01/17 09:20 - Physical Exam Vitals and I&O: Vital Signs Temp 97 F 11/06/17 11:50 Pulse 96 11/06/17 11:50 Resp 18 11/06/17 11:50 BP 125/74 11/06/17 11:50 Pulse Ox 97 11/06/17 11:50 Intake & Output 11/05/17 11/06/17 11/06/17 18:59 06:59 18:59 Intake Total 2470 410 Output Total 720 500 Balance 1750 -90 Weight (lbs) 81.647 kg 91.172 kg Intake: Intake, IV Amount 1750 410 Levetiracetam 1,000 mg In 110 110 Sodium Chloride 0.9% 100 ml @ 200 mls/hr IV Q12H [facility] Rx#:[id number] Meropenem 500 mg In 100 100 Sodium Chloride 0.9% 100 ml @ 100 mls/hr IV Q12H [facility] Rx#:[id number] Multivitamin Inj 10 ml In 1440 Dextrose 70% 780 ml In Amino Acids 10% 500 ml In Intralipids 20% 150 ml @ 60 mls/hr IV .Q24H [facility] Rx#:[id number] metroNIDAZOLE 500mg/NS 100 200 100mL 500 mg In 100 ml @ 100 mls/hr IV Q8HR [facility] Rx #:[id number] TPN/PPN 720 Output: Gastric Drainage 100 Drainage 20 Left Anterior Abdomen 20 Urine 600 500 Other: Stool Characteristics Liquid Liquid Weight Source Bedscale Bedscale Active Medications: Current Medications Acetaminophen (Tylenol) 650 mg PO Q6H PRN PRN Reason: PAIN OR FEVER >100 Acetaminophen/Hydrocodone Bitart ([place] 5mg/325mg) 1 tab PO Q6H PRN PRN Reason: PAIN/DISCOMFORT Stop: 12/31/17 10:05 Albuterol Sulfate (Albuterol 2.5mg/3ml Neb Ud) 2.5 mg HHN Q4HRT PRN PRN Reason: Shortness of Breath Stop: 12/31/17 11:19 Benztropine Mesylate (Cogentin) 1 mg PO BID [facility] Stop: 12/31/17 16:59 Last Admin: 11/06/17 10:11 Dose: 1 mg Brimonidine Tartrate (Alphagan 0.2% Ophth Soln) 1 drop EACH EYE BID [facility] Stop: 12/31/17 16:59 Last Admin: 11/06/17 10:15 Dose: 1 drop Chlorhexidine Gluconate (Peridex) 15 ml MM DAILY [facility] Stop: 01/02/18 09:59 Last Admin: 11/06/17 10:16 Dose: 15 ml Clonazepam (Klonopin) 1 mg PO BID [facility] Stop: 12/31/17 16:59 Last Admin: 11/06/17 10:12 Dose: 1 mg Dorzolamide/Timolol (Cosopt Ophth Soln) 1 drop RIGHT EYE BID [facility] Stop: 12/31/17 16:59 Last Admin: 11/06/17 10:15 Dose: 1 drop Escitalopram Oxalate (Lexapro) 20 mg PO DAILY [facility] PRN Reason: Protocol Stop: 01/01/18 08:59 Last Admin: 11/06/17 10:12 Dose: 20 mg Fluticasone Propionate (Flonase) 2 spr NS DAILY [facility] Stop: 01/01/18 08:59 Last Admin: 11/06/17 10:15 Dose: 2 spr Hydrocortisone (Hydrocortisone 1%) 1 appl TP BID [facility] PRN Reason: Rash Stop: 12/31/17 10:05 Meropenem 500 mg/ Sodium (Chloride) 100 mls @ 100 mls/hr IV Q12H [facility] Stop: 12/31/17 11:59 Last Admin: 11/06/17 12:36 Dose: 100 mls/hr Multivitamins/Minerals 10 ml/Dextrose/ Amino Acids/Electrolytes/ Fat Emulsion Intravenous 1,440 mls @ 60 mls/hr IV .Q24H [facility] Stop: 11/06/17 15:59 Last Admin: 11/05/17 17:21 Dose: 60 mls/hr Dextrose/Sodium Chloride (D5-0.9%Ns) 1,000 mls @ 20 mls/hr IV .Q24H [facility] Stop: 01/02/18 15:59 Last Admin: 11/04/17 23:44 Dose: 20 mls/hr Levetiracetam 1,000 mg/ Sodium (Chloride) 110 mls @ 200 mls/hr IV Q12H [facility] Stop: 01/02/18 20:59 Last Admin: 11/06/17 10:10 Dose: 200 mls/hr Amphotericin B 50 mg/ Sterile (Water) 1,000 mls @ 100 mls/hr IR Q24H [facility] Stop: 11/09/17 17:59 Last Admin: 11/05/17 17:20 Dose: 100 mls/hr Metronidazole (Flagyl) 500 mg in 100 mls @ 100 mls/hr IV Q8HR [facility] Stop: 01/04/18 12:59 Last Admin: 11/06/17 12:36 Dose: 100 mls/hr Multivitamins/Minerals 10 ml/Dextrose/ Amino Acids/Electrolytes/ Fat Emulsion Intravenous 1,200 mls @ 50 mls/hr IV .Q24H [facility] Stop: 01/05/18 15:59 Sodium Phosphate 20 mmole/ (Sodium Chloride) 256.6667 mls @ 42 mls/hr IV ONCE ONE Stop: 11/06/17 16:06 Last Admin: 11/06/17 10:18 Dose: 42 mls/hr Insulin Aspart (Novolog Insulin Sliding Scale) 0 units SUBQ Q6HR [facility] PRN Reason: Protocol Stop: 01/02/18 07:59 Last Admin: 11/06/17 11:49 Dose: Not Given Lamotrigine (Lamictal) 200 mg PO DAILY [facility] Stop: 01/01/18 08:59 Last Admin: 11/06/17 10:12 Dose: 200 mg Lamotrigine (Lamictal) 350 mg PO HS [facility] Stop: 12/31/17 20:59 Last Admin: 11/05/17 21:07 Dose: Not Given Latanoprost (Xalatan 0.005% Ophth Soln) 1 drop EACH EYE HS [facility] Stop: 12/31/17 20:59 Last Admin: 11/05/17 21:06 Dose: 1 drop Levothyroxine Sodium (Synthroid) 0.125 mg PO DAILY [facility]ANDAN Stop: 01/01/18 08:59 Last Admin: 11/06/17 10:16 Dose: 0.125 mg Methotrexate (Methotrexate) 10 mg PO Tu@0730 CHANDAN PRN Reason: Protocol Stop: 01/03/18 07:29 Last Admin: 11/04/17 07:42 Dose: Not Given Miconazole Nitrate (Micatin 2%) 1 appl TP BID [facility]ANDAN Stop: 12/31/17 16:59 Last Admin: 11/06/17 10:15 Dose: Not Given Miscellaneous (Ppn Per Pharmacy) 1 ea MC PRN PRN PRN Reason: PROTOCOL Stop: 12/31/17 10:15 Pantoprazole Sodium (Protonix) 40 mg IVP BID CHANDAN Stop: 12/31/17 16:59 Last Admin: 11/06/17 10:12 Dose: 40 mg Patient Own Med Onfi (20mg Tablet) 1 PO BID CHANDAN Stop: 01/01/18 16:59 Last Admin: 11/06/17 10:15 Dose: Not Given Patient Own Med (Aptiom 600mg Tablet) 1 PO QPM CHANDAN Stop: 01/01/18 16:59 Last Admin: 11/05/17 16:24 Dose: Not Given Petrolatum (Vaseline Oint) 1 appl TP BID CHANDAN Stop: 12/31/17 16:59 Last Admin: 11/06/17 10:13 Dose: 1 appl Quetiapine Fumarate (Seroquel) 25 mg PO BID CHANDAN PRN Reason: Protocol Stop: 12/31/17 16:59 Last Admin: 11/06/17 10:11 Dose: 25 mg Rifaximin (Xifaxan) 600 mg PO BID [facility]AN Stop: 12/31/17 16:59 Last Admin: 11/06/17 10:11 Dose: 600 mg Sodium Chloride ([place] Nasal [place]) 1 spr NS QID [facility] Stop: 12/31/17 12:59 Last Admin: 11/06/17 12:36 Dose: 1 spr - Procedures Procedures: Procedures Procedure Code Date BYPASS ILEUM TO CUTANEOUS, OPEN APPROACH [id number] 09/23/17 CHANGE FEEDING DEVICE IN UP INTEST TRACT, SHEET FOLDER APPROACH [id number] 11/01/17 CHANGE GASTROSTOMY TUBE 09602 11/01/17 DRAINAGE OF SMALL INTESTINE, ENDO [id number] 11/01/17 EXPLORATION OF ABDOMEN 19250 11/01/17 FREEING OF BOWEL ADHESION 56347 11/01/17 ILEOSTOMY/JEJUNOSTOMY 73863 09/23/17 INSERTION OF ENDOTRACHEAL AIRWAY INTO TRACHEA, VIA OPENING [id number] 09/23/17 INSERTION OF FEEDING DEVICE INTO STOMACH, OPEN APPROACH [id number] 09/23/17 INTRODUCTION OF NUTRITIONAL INTO CENTRAL VEIN, PERC APPROACH [id number] 09/23/17 PARTIAL REMOVAL OF COLON 61706 09/23/[address] PL[address] GASTROSTOMY TUBE 49309 09/23/17 RELEASE PERITONEUM, OPEN APPROACH [id number] 09/23/17 RELEASE SMALL INTESTINE, OPEN APPROACH [id number] 11/01/17 REPAIR SMALL INTESTINE, OPEN APPROACH [id number] 11/01/17 RESECTION OF LARGE INTESTINE, OPEN APPROACH [id number] 09/23/17 RESPIRATORY VENTILATION, LESS THAN 24 CONSECUTIVE HOURS [id number] 09/23/17 SUTURE SMALL INTESTINE 83321 11/01/17 Assessment/Plan - Problem List Patient Problems: All Active Problems GASTRIC FEEDING TUBE DISLODGED (Acute) - Assessment Assessment: 62 YO MALE WITH MALFUNCTION G TUBE DYSPGHAGIA S/P GT CHANGE AND SBO SURGERY 1.CONT POST OP CARE 2.DIET PER SURGEON
--- NOTE | 2017-11-06 15:31 | Internal Medicine Prog Note ---
Internal Medicine Subjective - Subjective Service Date: 11/06/17 Patient is:: awake Patient Complaints of:: vomitting Per staff patient has:: poor appetite, tolerating meds Internal Medicine Objective - Results Result Diagrams: 11/06/17 05:45 11/06/17 05:45 Recent Labs: Laboratory Last Values WBC 25.0 Th/cmm (4.8-10.8) H* 11/06/17 05:45 RBC 4.31 Mil/cmm (4.30-5.70) 11/06/17 05:45 Hgb 13.8 gm/dL (12-16) 11/06/17 05:45 Hct 41.2 % (41.0-60) 11/06/17 05:45 MCV 95.6 fl (80-99) 11/06/17 05:45 MCH 32.0 pg (26.0-30.0) H 11/06/17 05:45 MCHC Differential 33.5 pg (28.0-36.0) 11/06/17 05:45 RDW 14.6 % (11.5-20.0) 11/06/17 05:45 Plt Count 324 Th/cmm (150-400) 11/06/17 05:45 MPV 8.7 fl 11/06/17 05:45 Neutrophils % 84.2 % (40.0-80.0) H 11/05/17 06:10 Lymphocytes % 4.3 % (20.0-50.0) L 11/05/17 06:10 Monocytes % 11.0 % (2.0-10.0) H 11/05/17 06:10 Eosinophils % 0.3 % (0.0-5.0) 11/05/17 06:10 Basophils % 0.2 % (0.0-2.0) 11/05/17 06:10 Neutrophils (Manual) 82 % (40-80) H 11/06/17 05:45 Lymphocytes 4 % (20-50) L 11/06/17 05:45 Monocytes 13 % (2-10) H 11/06/17 05:45 Eosinophils 1 % (0-5) 11/06/17 05:45 Platelet Estimate ADEQUATE (NORMAL) 11/06/17 05:45 PT 10.4 SECONDS (9.5-11.5) 11/04/17 05:40 INR 1.00 (0.5-1.4) 11/04/17 05:40 PTT (Actin FS) 22.4 SECONDS (26.0-38.0) L 11/04/17 05:40 Sodium 142 mEq/L (136-145) 11/06/17 05:45 Potassium 4.0 mEq/L (3.5-5.1) 11/06/17 05:45 Chloride 112 mEq/L (98-107) H 11/06/17 05:45 Carbon Dioxide 20.3 mEq/L (21.0-31.0) L 11/06/17 05:45 Anion Gap 13.7 (7.0-16.0) 11/06/17 05:45 BUN 29 mg/dL (7-25) H 11/06/17 05:45 Creatinine 0.7 mg/dL (0.7-1.3) 11/06/17 05:45 Est GFR ( Amer) > 60.0 ml/min (>90) 11/06/17 05:45 Est GFR (Non-Af Amer) > 60.0 ml/min 11/06/17 05:45 BUN/Creatinine Ratio 41.4 11/06/17 05:45 Glucose 139 mg/dL (70-105) H 11/06/17 05:45 POC Glucose 132 MG/DL (70 - 105) H 11/06/17 11:46 Whole Bld Lactic Acid 1.20 mmol/L (0.60-1.99) 11/01/17 08:49 Calcium 8.9 mg/dL (8.6-10.3) 11/06/17 05:45 Phosphorus 2.3 mg/dL (2.5-5.0) L 11/06/17 05:45 Magnesium 2.1 mg/dL (1.9-2.7) 11/06/17 05:45 Total Bilirubin 1.4 mg/dL (0.3-1.0) H 11/06/17 05:45 AST 24 U/L (13-39) 11/06/17 05:45 ALT 30 U/L (7-52) 11/06/17 05:45 Alkaline Phosphatase 125 U/L (34-104) H 11/06/17 05:45 Troponin I 0.03 ng/mL (0.01-0.05) 11/01/17 08:49 B-Natriuretic Peptide 66.6 pg/mL (5.0-100.0) 11/06/17 05:45 Total Protein 6.1 gm/dL (6.0-8.3) 11/06/17 05:45 Albumin 3.2 gm/dL (4.2-5.5) L 11/06/17 05:45 Globulin 2.9 gm/dL 11/06/17 05:45 Albumin/Globulin Ratio 1.1 (1.0-1.8) 11/06/17 05:45 Prealbumin 30 mg/dL (10-36) 11/03/17 06:20 Triglycerides 196 mg/dL (<150) H 11/02/17 06:13 Cholesterol 158 mg/dL (<200) 11/03/17 06:20 Lipase 38 U/L (11-82) 11/01/17 08:49 TSH 12.56 uIU/ml (0.34-5.60) H 11/01/17 08:49 Urine Source RANDOM 11/01/17 09:20 Urine Color YELLOW 11/01/17 09:20 Urine Clarity HAZY (CLEAR) 11/01/17 09:20 Urine pH 5.5 (4.6 - 8.0) 11/01/17 09:20 Ur Specific [place] >= 1.030 (1.005-1.030) 11/01/17 09:20 Urine Protein 100 mg/dL (NEGATIVE) H 11/01/17 09:20 Urine Glucose (UA) NEGATIVE mg/dL (NEGATIVE) 11/01/17 09:20 Urine Ketones NEGATIVE mg/dL (NEGATIVE) 11/01/17 09:20 Urine Blood TRACE (NEGATIVE) 11/01/17 09:20 Urine Nitrate NEGATIVE (NEGATIVE) 11/01/17 09:20 Urine Bilirubin SMALL (NEGATIVE) H 11/01/17 09:20 Urine Urobilinogen 0.2 E.U./dL (0.2 - 1.0) 11/01/17 09:20 Ur Leukocyte Esterase SMALL (NEGATIVE) H 11/01/17 09:20 Urine RBC 0-2 /hpf (0-5) H 11/01/17 09:20 Urine WBC 50-100 /hpf (0-5) H 11/01/17 09:20 Ur Epithelial Cells MODERATE /lpf (FEW) 11/01/17 09:20 Urine Bacteria MODERATE /hpf (NONE SEEN) H 11/01/17 09:20 - Physical Exam Vitals and I&O: Vital Signs Temp 97 F 11/06/17 11:50 Pulse 96 11/06/17 11:50 Resp 18 11/06/17 14:00 BP 125/74 11/06/17 11:50 Pulse Ox 97 11/06/17 11:50 Intake & Output 11/05/17 11/06/17 11/06/17 18:59 06:59 18:59 Intake Total 2470 410 Output Total 720 500 Balance 1750 -90 Weight (lbs) 180 lb 201 lb Intake: Intake, IV Amount 1750 410 Levetiracetam 1,000 mg In 110 110 Sodium Chloride 0.9% 100 ml @ 200 mls/hr IV Q12H [facility] Rx#:[id number] Meropenem 500 mg In 100 100 Sodium Chloride 0.9% 100 ml @ 100 mls/hr IV Q12H [facility] Rx#:[id number] Multivitamin Inj 10 ml In 1440 Dextrose 70% 780 ml In Amino Acids 10% 500 ml In Intralipids 20% 150 ml @ 60 mls/hr IV .Q24H [facility] Rx#:[id number] metroNIDAZOLE 500mg/NS 100 200 100mL 500 mg In 100 ml @ 100 mls/hr IV Q8HR [facility] Rx #:[id number] TPN/PPN 720 Output: Gastric Drainage 100 Drainage 20 Left Anterior Abdomen 20 Urine 600 500 Other: Stool Characteristics Liquid Liquid Liquid Weight Source Bedscale Bedscale Active Medications: Current Medications Acetaminophen (Tylenol) 650 mg PO Q6H PRN PRN Reason: PAIN OR FEVER >100 Acetaminophen/Hydrocodone Bitart ([place] 5mg/325mg) 1 tab PO Q6H PRN PRN Reason: PAIN/DISCOMFORT Stop: 12/31/17 10:05 Albuterol Sulfate (Albuterol 2.5mg/3ml Neb Ud) 2.5 mg HHN Q4HRT PRN PRN Reason: Shortness of Breath Stop: 12/31/17 11:19 Benztropine Mesylate (Cogentin) 1 mg PO BID [facility] Stop: 12/31/17 16:59 Last Admin: 11/06/17 10:11 Dose: 1 mg Brimonidine Tartrate (Alphagan 0.2% Ophth Soln) 1 drop EACH EYE BID [facility] Stop: 12/31/17 16:59 Last Admin: 11/06/17 10:15 Dose: 1 drop Chlorhexidine Gluconate (Peridex) 15 ml MM DAILY [facility] Stop: 01/02/18 09:59 Last Admin: 11/06/17 10:16 Dose: 15 ml Clonazepam (Klonopin) 1 mg PO BID [facility] Stop: 12/31/17 16:59 Last Admin: 11/06/17 10:12 Dose: 1 mg Dorzolamide/Timolol (Cosopt Ophth Soln) 1 drop RIGHT EYE BID [facility] Stop: 12/31/17 16:59 Last Admin: 11/06/17 10:15 Dose: 1 drop Escitalopram Oxalate (Lexapro) 20 mg PO DAILY [facility] PRN Reason: Protocol Stop: 01/01/18 08:59 Last Admin: 11/06/17 10:12 Dose: 20 mg Fluticasone Propionate (Flonase) 2 spr NS DAILY [facility] Stop: 01/01/18 08:59 Last Admin: 11/06/17 10:15 Dose: 2 spr Hydrocortisone (Hydrocortisone 1%) 1 appl TP BID PRN PRN Reason: Rash Stop: 12/31/17 10:05 Meropenem 500 mg/ Sodium (Chloride) 100 mls @ 100 mls/hr IV Q12H [facility] Stop: 12/31/17 11:59 Last Admin: 11/06/17 12:36 Dose: 100 mls/hr Multivitamins/Minerals 10 ml/Dextrose/ Amino Acids/Electrolytes/ Fat Emulsion Intravenous 1,440 mls @ 60 mls/hr IV .Q24H [facility] Stop: 11/06/17 15:59 Last Admin: 11/05/17 17:21 Dose: 60 mls/hr Dextrose/Sodium Chloride (D5-0.9%Ns) 1,000 mls @ 20 mls/hr IV .Q24H [facility] Stop: 01/02/18 15:59 Last Admin: 11/04/17 23:44 Dose: 20 mls/hr Levetiracetam 1,000 mg/ Sodium (Chloride) 110 mls @ 200 mls/hr IV Q12H [facility] Stop: 01/02/18 20:59 Last Admin: 11/06/17 10:10 Dose: 200 mls/hr Amphotericin B 50 mg/ Sterile (Water) 1,000 mls @ 100 mls/hr IR Q24H [facility] Stop: 11/09/17 17:59 Last Admin: 11/05/17 17:20 Dose: 100 mls/hr Metronidazole (Flagyl) 500 mg in 100 mls @ 100 mls/hr IV Q8HR [facility] Stop: 01/04/18 12:59 Last Admin: 11/06/17 12:36 Dose: 100 mls/hr Multivitamins/Minerals 10 ml/Dextrose/ Amino Acids/Electrolytes/ Fat Emulsion Intravenous 1,200 mls @ 50 mls/hr IV .Q24H [facility] Stop: 01/05/18 15:59 Sodium Phosphate 20 mmole/ (Sodium Chloride) 256.6667 mls @ 42 mls/hr IV ONCE ONE Stop: 11/06/17 16:06 Last Admin: 11/06/17 10:18 Dose: 42 mls/hr Insulin Aspart (Novolog Insulin Sliding Scale) 0 units SUBQ Q6HR [facility] PRN Reason: Protocol Stop: 01/02/18 07:59 Last Admin: 11/06/17 11:49 Dose: Not Given Lamotrigine (Lamictal) 200 mg PO DAILY [facility] Stop: 01/01/18 08:59 Last Admin: 11/06/17 10:12 Dose: 200 mg Lamotrigine (Lamictal) 350 mg PO HS [facility] Stop: 12/31/17 20:59 Last Admin: 11/05/17 21:07 Dose: Not Given Latanoprost (Xalatan 0.005% [facility] Sol[facility]) 1 drop EACH EYE HS [facility] Stop: 12/31/17 20:59 Last Admin: 11/05/17 21:06 Dose: 1 drop Levothyroxine Sodium (Synthroid) 0.125 mg PO DAILY [facility] Stop: 01/01/18 08:59 Last Admin: 11/06/17 10:16 Dose: 0.125 mg Methotrexate (Methotrexate) 10 mg PO Tu@0730 [facility] PRN Reason: Protocol Stop: 01/03/18 07:29 Last Admin: 11/04/17 07:42 Dose: Not Given Miconazole Nitrate (Micatin 2%) 1 appl TP BID [facility] Stop: 12/31/17 16:59 Last Admin: 11/06/17 10:15 Dose: Not Given Miscellaneous (Ppn Per Pharmacy) 1 ea MC PRN PRN PRN Reason: PROTOCOL Stop: 12/31/17 10:15 Pantoprazole Sodium (Protonix) 40 mg IVP BID [facility] Stop: 12/31/17 16:59 Last Admin: 11/06/17 10:12 Dose: 40 mg Patient Own Med Onfi (20mg Tablet) 1 PO BID [facility] Stop: 01/01/18 16:59 Last Admin: 11/06/17 10:15 Dose: Not Given Patient Own Med (Aptiom 600mg Tablet) 1 PO QPM [facility] Stop: 01/01/18 16:59 Last Admin: 11/05/17 16:24 Dose: Not Given Petrolatum (Vaseline Oint) 1 appl TP BID [facility] Stop: 12/31/17 16:59 Last Admin: 11/06/17 10:13 Dose: 1 appl Quetiapine Fumarate (Seroquel) 25 mg PO BID [facility] PRN Reason: Protocol Stop: 12/31/17 16:59 Last Admin: 11/06/17 10:11 Dose: 25 mg Rifaximin (Xifaxan) 600 mg PO BID [facility] Stop: 12/31/17 16:59 Last Admin: 11/06/17 10:11 Dose: 600 mg Sodium Chloride ([place] Nasal [place]) 1 spr NS QID [facility] Stop: 12/31/17 12:59 Last Admin: 11/06/17 12:36 Dose: 1 spr General: weak HEENT: NC/AT, PERRLA Neck: Supple Lungs: CTAB Cardiovascular: RRR, Normal S1, Normal S2, without murmur Abdomen: soft, +GT, positive bowel sound Extremities: excoriation - Procedures Procedures: Procedures Procedure Code Date BYPASS ILEUM TO CUTANEOUS, OPEN APPROACH [id number] 09/23/17 CHANGE FEEDING DEVICE IN UP INTEST TRACT, BIG DATA PLATFORM ARCHITECT APPROACH [id number] 11/01/17 CHANGE GASTROSTOMY TUBE 48523 11/01/17 DRAINAGE OF SMALL INTESTINE, ENDO [id number] 11/01/17 EXPLORATION OF ABDOMEN 23507 11/01/17 FREEING OF BOWEL ADHESION 35558 11/01/17 ILEOSTOMY/JEJUNOSTOMY 41719 09/23/17 INSERTION OF ENDOTRACHEAL AIRWAY INTO TRACHEA, VIA OPENING [id number] 09/23/17 INSERTION OF FEEDING DEVICE INTO STOMACH, OPEN APPROACH [id number] 09/23/17 INTRODUCTION OF NUTRITIONAL INTO CENTRAL VEIN, PERC APPROACH [id number] 09/23/17 PARTIAL REMOVAL OF COLON 20400 09/23/[address] PL[address] GASTR[address]OMY TUBE 70989 09/23/17 RELEASE PERITONEUM, OPEN APPROACH [id number] 09/23/17 RELEASE SMALL INTESTINE, OPEN APPROACH [id number] 11/01/17 REPAIR SMALL INTESTINE, OPEN APPROACH [id number] 11/01/17 RESECTION OF LARGE INTESTINE, OPEN APPROACH [id number] 09/23/17 RESPIRATORY VENTILATION, LESS THAN 24 CONSECUTIVE HOURS [id number] 09/23/17 SUTURE SMALL INTESTINE 24710 11/01/17 Internal Medicine Assmt/Plan - Assessment Assessment: s/p peg placement sepsis intractable vomiting small bowel obstruction acute renal insufficiency acute uti mr cp seizures generalized contractures - Plan Plan: continue with bladder irrigation CONTINUE WITH PPN FOR NUTRITIONAL SUPPORT MONITOR LYTES CONTINUE CURRENT PLAN OF CARE Nutritional Asmnt/Malnutr-PDOC - Dietary Evaluation Malnutrition Findings (Please click <Entered> for more info): Nutritional Asmnt/Malnutrition Start: 11/03/17 14: 15 Text: Status: Complete Freq: Document 11/03/17 14:15 LCHENG (Rec: 11/03/17 14:45 LCHENG [email or web address]) Nutritional Asmnt/Malnutrition Patient General Information Nutritional Screening High Risk Consult Diagnosis UTI Pertinent Medical Hx/Surgical Hx MR, cerebral palsy, seizure, colectomy, generalized contractures, ileostomy Subjective Information Consult received for freddy cox. Pt had gtube replacement this morning. Pt now on TPN. May start tube feeding if small bowel series does not show bowel obstruction per MD note. Current Diet Order/ Nutrition Support TPN D10% A4.25%, lipid 20% 150ml at 50ml/hr providing 912kcal, 51g protein Pertinent Medications D5-0.9%ns, novolog, synthroid, k phos Pertinent Labs 11/03 cl 113, Bun 45, glucose 100, POC 92 Nutritional Hx/Data Height 5 ft 10 in Height (Calculated Centimeters) 177.8 Current Weight (lbs) 151 lb Weight (Calculated Kilograms) 68.5 Weight (Calculated Grams) 42023.4 [place] Body Weight 166 Body Mass Index (BMI) 21.7 Weight Status Approriate GI Symptoms GI Symptoms None Last BM 0 Difficult in: None Skin Integrity/Comment: rash to right and left foot, scar to abdomen Current %PO Good (75-100%) Estimated Nutritional Goals BEE in Kcals: Using Current wt Calories/Kcals/Kg 23-27 Kcals Calculated 0258-7721 Protein: Using Current wt Protein g/k-1.1 Protein Calculated 69-76 Fluid: ml 1587-1863ml 91ml/kcal) Nutritional Problem No current Nutrition Prob Problem altered GI function Etiology possible small bowel obstruction Signs/Symptoms: pt on TPN Malnutrition Alert Protein-Calorie Malnutrition N/A Is there a minimum of two criteria No selected? Query Text:Check all the applicable criteria. A minimum of two criteria are recommended for diagnosis of either severe or non-severe malnutrition. Intervention/Recommendation Comments 1. If continue with TPN, recommend D12%, AA4%, lipid 20 % 200ml at 80ml/hr. it provides 1555kcal, 250CHO (2. 5mg/kg/min), 76g protein. 2. If TF needed, recommend Fibersource HN starting at 20ml/hr for first 24hr. If tolerated, increase to goal rate of 55ml and wean TPN. 3. Monitor nutrition support, wt, skin integrity and labs 3. F/U as high risk in 2-3 days, 5/2-5/3 Expected Outcomes/Goals Expected Outcomes/Goals 1. Pt to meet at least 75% of nutritional needs via nutrition support with tolerance 2. Wt stability, skin to remain intact, labs to approach WNL.
[2017-11-06] MEDS ORDERED: TPN 10%-70% CUSTOM IV SCH (16:00)
[2017-11-06] MEDS: D5-0.9%NS 1,000 ML IV SCH (16:21)
[2017-11-06] MEDS: APTIOM 600 MG PO SCH (16:25)
[2017-11-06] MEDS: STERILE WATER FOR IRRIGATION IR SCH (17:51)
[2017-11-06] MEDS: AMPHOTERICIN B IR SCH (17:51)
[2017-11-07] MEDS: Meropenem 500 mg in NS 0.9% 100 ML IV SCH ×2 (00:01→12:14)
[2017-11-07] MEDS: INSULIN ASPART SLIDING SCALE 100 UNITS/ML UNIT SUBQ SCH ×4 (01:56→17:19)
[2017-11-07 05:26] LABS: MANUAL DIFF REQUIRED? YES
[2017-11-07 05:28] LABS: BASOPHILE ABSOLUTE 0.3 Th/cumm (0-0.2); EOSINOPHILE ABSOLUTE 1.7 Th/cmm (0.1-0.4); HEMATOCRIT 36.5 % (41.0-60); HEMOGLOBIN 12.1 gm/dL (12-16); LYMPHOCYTE ABSOLUTE 2.1 Th/cmm (1.5-3.0); MEAN CELL VOLUME 95.3 fl (80-99); MEAN CORPUSCULAR HEMOGLOBIN 31.6 pg (26.0-30.0); MEAN CORPUSCULAR HGB CONC 33.2 pg (28.0-36.0); MEAN PLATELET VOLUME 8.8 fl; MONOCYTE ABSOLUTE 4.4 Th/cmm (0.3-1.0); NEUTROPHILE ABSOLUTE 23.5 Th/cmm (1.8-8.0); PLATELET COUNT 331 Th/cmm (150-400); RED BLOOD COUNT 3.83 Mil/cmm (4.30-5.70); RED CELL DISTRIBUTION WIDTH 14.9 % (11.5-20.0)
[2017-11-07] MEDS: metroNIDAZOLE 500mg/NS 100mL 500 MG/100 ML BAG IV SCH ×2 (05:36→12:14)
[2017-11-07 05:51] LABS: ALBUMIN 2.9 gm/dL (4.2-5.5); ALKALINE PHOSPHATASE 162 U/L (34-104); ANION GAP 12.1 (7.0-16.0); BILIRUBIN,TOTAL 0.9 mg/dL (0.3-1.0); BUN - UREA NITROGEN 30 mg/dL (7-25); CALCIUM SERUM 8.3 mg/dL (8.6-10.3); CARBON DIOXIDE 22.2 mEq/L (21.0-31.0); CHLORIDE 111 mEq/L (98-107); CREATININE - SERUM 0.9 mg/dL (0.7-1.3); GFR AFRICAN-AMERICAN > 60.0 ml/min (>90); GFR NON AFRICAN-AMERICAN > 60.0 ml/min; GLUCOSE 116 mg/dL (70-105); MAGNESIUM 1.9 mg/dL (1.9-2.7); POTASSIUM SERUM 4.3 mEq/L (3.5-5.1); SGOT 49 U/L (13-39); SGPT/ALT 36 U/L (7-52); SODIUM SERUM 141 mEq/L (136-145); TOTAL PROTEIN,SERUM 5.7 gm/dL (6.0-8.3)
[2017-11-07 06:15] LABS: TOTAL CELLS COUNTED 100
[2017-11-07 06:16] LABS: BAND NEUTROPHILE 3 % (0-10); EOSINOPHIL 3 % (0-5); LYMPHOCYTE 16 % (20-50); MONOCYTE 4 % (2-10); NEUTROPHILS 74 % (40-80)
[2017-11-07] MEDS: Benztropine 1 MG TAB PO SCH ×2 (09:18→16:21)
[2017-11-07] MEDS: ONFI 20 MG PO SCH ×2 (09:19→16:22)
[2017-11-07] MEDS: Saline 0.65% Nasal Spray NS SCH ×4 (09:20→20:42)
[2017-11-07] MEDS: Petrolatum (White) Oint 0.6 Oz Tube TP SCH ×2 (09:20→16:22)
[2017-11-07] MEDS: Fluticasone Propionate 0.05mg/Actuation 16gm Nasal Spray NS SCH (09:20)
[2017-11-07] MEDS: Levothyroxine 0.125 Mg Tab PO SCH (09:20)
[2017-11-07] MEDS: Miconazole Nitrate 2% Cream 30gm TP SCH ×2 (09:21→16:21)
[2017-11-07] MEDS: Chlorhexidine Gluconate 0.12% 480mL Bottle MM SCH (09:21)
--- NOTE | 2017-11-07 11:00 | General Progress Note ---
Subjective - Review of Systems Service Date: 11/07/17 Events since last encounter: WBC 32,000 ID consult chest xray increase GT feedings to 60 cc, DC PPN incision clean Objective - Results Result Diagrams: 11/07/17 04:45 11/07/17 04:45 Recent Labs: Laboratory Last Values WBC 32.0 Th/cmm (4.8-10.8) H* 11/07/17 04:45 RBC 3.83 Mil/cmm (4.30-5.70) L 11/07/17 04:45 Hgb 12.1 gm/dL (12-16) 11/07/17 04:45 Hct 36.5 % (41.0-60) L 11/07/17 04:45 MCV 95.3 fl (80-99) 11/07/17 04:45 MCH 31.6 pg (26.0-30.0) H 11/07/17 04:45 MCHC Differential 33.2 pg (28.0-36.0) 11/07/17 04:45 RDW 14.9 % (11.5-20.0) 11/07/17 04:45 Plt Count 331 Th/cmm (150-400) 11/07/17 04:45 MPV 8.8 fl 11/07/17 04:45 Neutrophils % BOTTOM PRECIPITATOR OPERATOR 11/07/17 04:45 Band Neutrophils % 3 % (0-10) 11/07/17 04:45 Lymphocytes % BOTTOM PRECIPITATOR OPERATOR 11/07/17 04:45 Monocytes % BOTTOM PRECIPITATOR OPERATOR 11/07/17 04:45 Eosinophils % BOTTOM PRECIPITATOR OPERATOR 11/07/17 04:45 Basophils % BOTTOM PRECIPITATOR OPERATOR 11/07/17 04:45 Neutrophils (Manual) 74 % (40-80) 11/07/17 04:45 Lymphocytes 16 % (20-50) L 11/07/17 04:45 Monocytes 4 % (2-10) 11/07/17 04:45 Eosinophils 3 % (0-5) 11/07/17 04:45 Platelet Estimate ADEQUATE (NORMAL) 11/06/17 05:45 PT 10.4 SECONDS (9.5-11.5) 11/04/17 05:40 INR 1.00 (0.5-1.4) 11/04/17 05:40 PTT (Actin FS) 22.4 SECONDS (26.0-38.0) L 11/04/17 05:40 Sodium 141 mEq/L (136-145) 11/07/17 04:45 Potassium 4.3 mEq/L (3.5-5.1) 11/07/17 04:45 Chloride 111 mEq/L (98-107) H 11/07/17 04:45 Carbon Dioxide 22.2 mEq/L (21.0-31.0) 11/07/17 04:45 Anion Gap 12.1 (7.0-16.0) 11/07/17 04:45 BUN 30 mg/dL (7-25) H 11/07/17 04:45 Creatinine 0.9 mg/dL (0.7-1.3) 11/07/17 04:45 Est GFR ( Amer) > 60.0 ml/min (>90) 11/07/17 04:45 Est GFR (Non-Af Amer) > 60.0 ml/min 11/07/17 04:45 BUN/Creatinine Ratio 33.3 11/07/17 04:45 Glucose 116 mg/dL (70-105) H 11/07/17 04:45 POC Glucose 124 MG/DL (70 - 105) H 11/07/17 05:42 Whole Bld Lactic Acid 1.20 mmol/L (0.60-1.99) 11/01/17 08:49 Calcium 8.3 mg/dL (8.6-10.3) L 11/07/17 04:45 Phosphorus 2.3 mg/dL (2.5-5.0) L 11/06/17 05:45 Magnesium 1.9 mg/dL (1.9-2.7) 11/07/17 04:45 Total Bilirubin 0.9 mg/dL (0.3-1.0) 11/07/17 04:45 AST 49 U/L (13-39) H 11/07/17 04:45 ALT 36 U/L (7-52) 11/07/17 04:45 Alkaline Phosphatase 162 U/L (34-104) H 11/07/17 04:45 Troponin I 0.03 ng/mL (0.01-0.05) 11/01/17 08:49 B-Natriuretic Peptide 66.6 pg/mL (5.0-100.0) 11/06/17 05:45 Total Protein 5.7 gm/dL (6.0-8.3) L 11/07/17 04:45 Albumin 2.9 gm/dL (4.2-5.5) L 11/07/17 04:45 Globulin 2.8 gm/dL 11/07/17 04:45 Albumin/Globulin Ratio 1.0 (1.0-1.8) 11/07/17 04:45 Prealbumin 30 mg/dL (10-36) 11/03/17 06:20 Triglycerides 196 mg/dL (<150) H 11/02/17 06:13 Cholesterol 158 mg/dL (<200) 11/03/17 06:20 Lipase 38 U/L (11-82) 11/01/17 08:49 TSH 12.56 uIU/ml (0.34-5.60) H 11/01/17 08:49 Urine Source RANDOM 11/01/17 09:20 Urine Color YELLOW 11/01/17 09:20 Urine Clarity HAZY (CLEAR) 11/01/17 09:20 Urine pH 5.5 (4.6 - 8.0) 11/01/17 09:20 Ur Specific [place] >= 1.030 (1.005-1.030) 11/01/17 09:20 Urine Protein 100 mg/dL (NEGATIVE) H 11/01/17 09:20 Urine Glucose (UA) NEGATIVE mg/dL (NEGATIVE) 11/01/17 09:20 Urine Ketones NEGATIVE mg/dL (NEGATIVE) 11/01/17 09:20 Urine Blood TRACE (NEGATIVE) 11/01/17 09:20 Urine Nitrate NEGATIVE (NEGATIVE) 11/01/17 09:20 Urine Bilirubin SMALL (NEGATIVE) H 11/01/17 09:20 Urine Urobilinogen 0.2 E.U./dL (0.2 - 1.0) 11/01/17 09:20 Ur Leukocyte Esterase SMALL (NEGATIVE) H 11/01/17 09:20 Urine RBC 0-2 /hpf (0-5) H 11/01/17 09:20 Urine WBC 50-100 /hpf (0-5) H 11/01/17 09:20 Ur Epithelial Cells MODERATE /lpf (FEW) 11/01/17 09:20 Urine Bacteria MODERATE /hpf (NONE SEEN) H 11/01/17 09:20 - Physical Exam Vitals and I&O: Vital Signs Temp 97.5 F 11/07/17 07:49 Pulse 97 11/07/17 07:49 Resp 18 11/07/17 07:49 BP 126/74 11/07/17 07:49 Pulse Ox 94 11/07/17 07:49 Intake & Output 11/06/17 11/07/17 11/07/17 18:59 06:59 18:59 Intake Total 3474.8337 100 Output Total 1340 800 Balance 2134.8337 -700 Weight (lbs) 91.172 kg 93.939 kg Intake: Intake, IV Amount 3024.8337 100 D5-0.9%Ns 1,000 ml @ 20 854.000 mls/hr IV .Q24H [facility] Rx#: [id number] Levetiracetam 1,000 mg In 110 Sodium Chloride 0.9% 100 ml @ 200 mls/hr IV Q12H [facility] Rx#:[id number] Meropenem 500 mg In 100 Sodium Chloride 0.9% 100 ml @ 100 mls/hr IV Q12H [facility] Rx#:[id number] Multivitamin Inj 10 ml In 104.167 Dextrose 70% 490 ml In Amino Acids 10% 500 ml In Intralipids 20% 200 ml @ 50 mls/hr IV .Q24H [facility] Rx#:[id number] metroNIDAZOLE 500mg/NS 100 100 100mL 500 mg In 100 ml @ 100 mls/hr IV Q8HR [facility] Rx #:[id number] Tube Feeding 450 Output: Drainage 40 Left Anterior Abdomen 40 Urine 1300 800 Other: # Bowel Movements 300 Stool Characteristics Liquid Liquid Weight Source Bedscale Bedscale Active Medications: Current Medications Acetaminophen (Tylenol) 650 mg PO Q6H PRN PRN Reason: PAIN OR FEVER >100 Acetaminophen/Hydrocodone Bitart ([place] 5mg/325mg) 1 tab PO Q6H PRN PRN Reason: PAIN/DISCOMFORT Stop: 12/31/17 10:05 Albuterol Sulfate (Albuterol 2.5mg/3ml Neb Ud) 2.5 mg HHN Q4HRT PRN PRN Reason: Shortness of Breath Stop: 12/31/17 11:19 Benztropine Mesylate (Cogentin) 1 mg PO BID [facility] Stop: 12/31/17 16:59 Last Admin: 11/07/17 09:18 Dose: 1 mg Brimonidine Tartrate (Alphagan 0.2% Ophth Soln) 1 drop EACH EYE BID [facility] Stop: 12/31/17 16:59 Last Admin: 11/07/17 09:19 Dose: 1 drop Chlorhexidine Gluconate (Peridex) 15 ml MM DAILY [facility] Stop: 01/02/18 09:59 Last Admin: 11/07/17 09:21 Dose: 15 ml Clonazepam (Klonopin) 1 mg PO BID [facility] Stop: 12/31/17 16:59 Last Admin: 11/07/17 09:18 Dose: 1 mg Dorzolamide/Timolol (Cosopt Ophth Soln) 1 drop RIGHT EYE BID [facility] Stop: 12/31/17 16:59 Last Admin: 11/07/17 09:19 Dose: 1 drop Escitalopram Oxalate (Lexapro) 20 mg PO DAILY [facility] PRN Reason: Protocol Stop: 01/01/18 08:59 Last Admin: 11/07/17 09:18 Dose: 20 mg Fluticasone Propionate (Flonase) 2 spr NS DAILY [facility] Stop: 01/01/18 08:59 Last Admin: 11/07/17 09:20 Dose: 2 spr Hydrocortisone (Hydrocortisone 1%) 1 appl TP BID PRN PRN Reason: Rash Stop: 12/31/17 10:05 Meropenem 500 mg/ Sodium (Chloride) 100 mls @ 100 mls/hr IV Q12H [facility] Stop: 12/31/17 11:59 Last Admin: 11/07/17 00:01 Dose: 100 mls/hr Dextrose/Sodium Chloride (D5-0.9%Ns) 1,000 mls @ 20 mls/hr IV .Q24H [facility] Stop: 01/02/18 15:59 Last Infusion: 11/06/17 18:26 Dose: 20 mls/hr Levetiracetam 1,000 mg/ Sodium (Chloride) 110 mls @ 200 mls/hr IV Q12H [facility] Stop: 01/02/18 20:59 Last Admin: 11/06/17 21:05 Dose: 200 mls/hr Amphotericin B 50 mg/ Sterile (Water) 1,000 mls @ 100 mls/hr IR Q24H [facility] Stop: 11/09/17 17:59 Last Infusion: 11/06/17 18:27 Dose: 100 mls/hr Metronidazole (Flagyl) 500 mg in 100 mls @ 100 mls/hr IV Q8HR [facility] Stop: 01/04/18 12:59 Last Admin: 11/07/17 05:36 Dose: 100 mls/hr Multivitamins/Minerals 10 ml/Dextrose/ Amino Acids/Electrolytes/ Fat Emulsion Intravenous 1,200 mls @ 50 mls/hr IV .Q24H [facility] Stop: 01/05/18 15:59 Last Infusion: 11/06/17 18:27 Dose: 50 mls/hr Insulin Aspart (Novolog Insulin Sliding Scale) 0 units SUBQ Q6HR [facility] PRN Reason: Protocol Stop: 01/02/18 07:59 Last Admin: 11/07/17 06:35 Dose: Not Given Lamotrigine (Lamictal) 200 mg PO DAILY [facility] Stop: 01/01/18 08:59 Last Admin: 11/07/17 09:18 Dose: 200 mg Lamotrigine (Lamictal) 350 mg PO HS [facility] Stop: 12/31/17 20:59 Last Admin: 11/06/17 21:06 Dose: 350 mg Latanoprost (Xalatan 0.005% Ophth Soln) 1 drop EACH EYE HS [facility] Stop: 12/31/17 20:59 Last Admin: 11/06/17 21:06 Dose: 1 drop Levothyroxine Sodium (Synthroid) 0.125 mg PO DAILY [facility] Stop: 01/01/18 08:59 Last Admin: 11/07/17 09:20 Dose: 0.125 mg Methotrexate (Methotrexate) 10 mg PO Tu@0730 [facility] PRN Reason: Protocol Stop: 01/03/18 07:29 Last Admin: 11/04/17 07:42 Dose: Not Given Miconazole Nitrate (Micatin 2%) 1 appl TP BID [facility] Stop: 12/31/17 16:59 Last Admin: 11/07/17 09:21 Dose: 1 appl Miscellaneous (Ppn Per Pharmacy) 1 ea MC PRN PRN PRN Reason: PROTOCOL Stop: 12/31/17 10:15 Pantoprazole Sodium (Protonix) 40 mg IVP BID [facility] Stop: 12/31/17 16:59 Last Admin: 11/06/17 16:24 Dose: 40 mg Patient Own Med Onfi (20mg Tablet) 1 PO BID [facility] Stop: 01/01/18 16:59 Last Admin: 11/07/17 09:19 Dose: 1 Patient Own Med (Aptiom 600mg Tablet) 1 PO QPM [facility] Stop: 01/01/18 16:59 Last Admin: 11/06/17 16:25 Dose: 1 Petrolatum (Vaseline Oint) 1 appl TP BID [facility] Stop: 12/31/17 16:59 Last Admin: 11/07/17 09:20 Dose: 1 appl Quetiapine Fumarate (Seroquel) 25 mg PO BID [facility] PRN Reason: Protocol Stop: 12/31/17 16:59 Last Admin: 11/06/17 16:24 Dose: 25 mg Rifaximin (Xifaxan) 600 mg PO BID [facility] Stop: 12/31/17 16:59 Last Admin: 11/06/17 16:24 Dose: 600 mg Sodium Chloride (Quay Nasal [place]) 1 spr NS QID [facility] Stop: 12/31/17 12:59 Last Admin: 11/07/17 09:20 Dose: 1 spr - Procedures Procedures: Procedures Procedure Code Date BYPASS ILEUM TO CUTANEOUS, OPEN APPROACH [id number] 09/23/17 CHANGE FEEDING DEVICE IN UP INTEST TRACT, SUGAR CANE PLANTER MACHINE OPERATOR APPROACH [id number] 11/01/17 CHANGE GASTROSTOMY TUBE 81528 11/01/17 DRAINAGE OF SMALL INTESTINE, ENDO [id number] 11/01/17 EXPLORATION OF ABDOMEN 16540 11/01/17 FREEING OF BOWEL ADHESION 83280 11/01/17 ILEOSTOMY/JEJUNOSTOMY 69912 09/23/17 INSERTION OF ENDOTRACHEAL AIRWAY INTO TRACHEA, VIA OPENING [id number] 09/23/17 INSERTION OF FEEDING DEVICE INTO STOMACH, OPEN APPROACH [id number] 09/23/17 INTRODUCTION OF NUTRITIONAL INTO CENTRAL VEIN, PERC APPROACH [id number] 09/23/17 PARTIAL REMOVAL OF COLON 82662 09/23/[address] PLACE GASTROSTOMY TUBE 02644 09/23/17 RELEASE PERITONEUM, OPEN APPROACH [id number] 09/23/17 RELEASE SMALL INTESTINE, OPEN APPROACH [id number] 11/01/17 REPAIR SMALL INTESTINE, OPEN APPROACH [id number] 11/01/17 RESECTION OF LARGE INTESTINE, OPEN APPROACH [id number] 09/23/17 RESPIRATORY VENTILATION, LESS THAN 24 CONSECUTIVE HOURS [id number] 09/23/17 SUTURE SMALL INTESTINE 86397 11/01/17 Assessment/Plan - Problem List Patient Problems: All Active Problems GASTRIC FEEDING TUBE DISLODGED (Acute) Nutritional Asmnt/Malnutr-PDOC - Dietary Evaluation Malnutrition Findings (Please click <Entered> for more info): Nutritional Asmnt/Malnutrition Start: 11/03/17 14: 15 Text: Status: Complete Freq: Document 11/03/17 14:15 [email or web address] (Rec: 11/03/17 14:45 [email or web address]) Nutritional Asmnt/Malnutrition Patient General Information Nutritional Screening High Risk Consult Diagnosis UTI Pertinent Medical Hx/Surgical Hx MR, cerebral palsy, seizure, colectomy, generalized contractures, ileostomy Subjective Information Consult received for freddy kenny. Pt had gtube replacement this morning. Pt now on TPN. May start tube feeding if small bowel series does not show bowel obstruction per MD note. Current Diet Order/ Nutrition Support TPN D10% A4.25%, lipid 20% 150ml at 50ml/hr providing 912kcal, 51g protein Pertinent Medications D5-0.9%ns, novolog, synthroid, k phos Pertinent Labs 11/03 cl 113, Bun 45, glucose 100, POC 92 Nutritional Hx/Data Height 1.78 m Height (Calculated Centimeters) 177.8 Current Weight (lbs) 68.492 kg Weight (Calculated Kilograms) 68.5 Weight (Calculated Grams) 08916.4 [place] Body Weight 166 Body Mass Index (BMI) 21.7 Weight Status Approriate GI Symptoms GI Symptoms None Last BM 0 Difficult in: None Skin Integrity/Comment: rash to right and left foot, scar to abdomen Current %PO Good (75-100%) Estimated Nutritional Goals BEE in Kcals: Using Current wt Calories/Kcals/Kg 23-27 Kcals Calculated 4068-7765 Protein: Using Current wt Protein g/k-1.1 Protein Calculated 69-76 Fluid: ml 1587-1863ml 91ml/kcal) Nutritional Problem No current Nutrition Prob Problem altered GI function Etiology possible small bowel obstruction Signs/Symptoms: pt on TPN Malnutrition Alert Protein-Calorie Malnutrition N/A Is there a minimum of two criteria No selected? Query Text:Check all the applicable criteria. A minimum of two criteria are recommended for diagnosis of either severe or non-severe malnutrition. Intervention/Recommendation Comments 1. If continue with TPN, recommend D12%, AA4%, lipid 20 % 200ml at 80ml/hr. it provides 1555kcal, 250CHO (2. 5mg/kg/min), 76g protein. 2. If TF needed, recommend Fibersource HN starting at 20ml/hr for first 24hr. If tolerated, increase to goal rate of 55ml and wean TPN. 3. Monitor nutrition support, wt, skin integrity and labs 3. F/U as high risk in 2-3 days, /-11/06 Expected Outcomes/Goals Expected Outcomes/Goals 1. Pt to meet at least 75% of nutritional needs via nutrition support with tolerance 2. Wt stability, skin to remain intact, labs to approach WNL.
[2017-11-07] MEDS: Multivitamin w/ Minerals Tab PO SCH (11:32)
--- NOTE | 2017-11-07 11:55 | Diagnostic Imaging Report ---
Portable chest x-ray HISTORY: Shortness of breath Exam is very limited due to patient contracture and rotation. Suboptimal visualization of the left lung. No obvious focal pulmonary processes. The heart size is difficult to assess. There is suggestion of free intraperitoneal air beneath the diaphragm. The finding should be correlated clinically and with any recent surgery. IMPRESSION: 1. Suggestion of free intraperitoneal air. The finding should be correlated clinically and/or with any recent surgery. 2. Limited visualization of the left lower lung. No obvious focal pulmonary processes.
--- NOTE | 2017-11-07 12:24 | Consultation ---
Consult Note - Consult Note Service Date: 11/07/17 Referring Physician: Johnnie Butler Consult Note: PHYSICIAN Consultation Note: Date of Admission: 11/01/17 Purpose of Consultation: Leukocytosis. Chief Complaint: Patient DANY KAN was admitted to [facility] with SEPSIS AND INTRACTABLE VOMITING. History of Present Illness: 62 year-old male with PMH of seizure disorder, cerebral palsy, dysphagia, Gtube placement, functional quadriplegia admitted for intractable vomiting. On initial evaluation, his temperature was 100.1 degree F an WBC count was 21,800. SBO was diagnosed, his wbc count improved initially. G tube was placed 11/03/2017, and exploratory laparotomy was performed on 11/04/2017. His WBC Count had went up to 32k and peritoneal fluid cullture grew Staenotropnhomonas.. ID consult was called for further evaluation and antibiotic management. Past Medical History: seizure disorder, cerebral palsy, dysphagia, Gtube placement, functional quadriplegia. Diagnoses SEPSIS, UNSPECIFIED ORGANISM (11/01/17) SEVERE INTELLECTUAL DISABILITIES (11/01/17) EPILEPSY, UNSP, NOT INTRACTABLE, WITHOUT STATUS EPILEPTICUS (11/01/17) CEREBRAL PALSY, UNSPECIFIED (11/01/17) UNSP INTESTNL OBST, UNSP TO PARTIAL VERSUS COMPLETE OBST (11/01/17) GASTROSTOMY MALFUNCTION (11/01/17) ACUTE KIDNEY FAILURE, UNSPECIFIED (11/01/17) URINARY TRACT INFECTION, SITE NOT SPECIFIED (11/01/17) FUNCTIONAL QUADRIPLEGIA (11/01/17) Allergies Allergy/AdvReac Type Severity Reaction Status Date / Time buspirone [From BuSpar] Allergy Verified 11/01/17 07:49 divalproex sodium Allergy Verified 06/12/17 17:50 [From Depakote] fluoxetine Allergy Verified 06/12/17 13:01 magnesium hydroxide Allergy Verified 06/12/17 13:00 [From Milk of Magnesia] metoclopramide Allergy Verified 06/12/17 13:00 ondansetron Allergy Verified 06/12/17 13:01 Vital Signs Temp 97.5 F 11/07/17 07:49 Pulse 97 11/07/17 07:49 Resp 18 11/07/17 07:49 BP 126/74 11/07/17 07:49 Pulse Ox 94 11/07/17 07:49 Intake & Output 11/06/17 11/07/17 11/07/17 18:59 06:59 18:59 Intake Total 3474.8337 410 Output Total 1340 800 Balance 2134.8337 -390 Weight (lbs) 91.172 kg 93.939 kg Intake: Intake, IV Amount 3024.8337 410 D5-0.9%Ns 1,000 ml @ 20 854.000 mls/hr IV .Q24H CHANDAN Rx#: [id number] Levetiracetam 1,000 mg In 110 110 Sodium Chloride 0.9% 100 ml @ 200 mls/hr IV Q12H CH[facility]AN Rx#:[id number] Meropenem 500 mg In 100 100 Sodium Chloride 0.9% 100 ml @ 100 mls/hr IV Q12H [facility]AN Rx#:[id number] Multivitamin Inj 10 ml In 104.167 Dextrose 70% 490 ml In Amino Acids 10% 500 ml In Intralipids 20% 200 ml @ 50 mls/hr IV .Q24H CHANDAN Rx#:[id number] metroNIDAZOLE 500mg/NS 100 200 100mL 500 mg In 100 ml @ 100 mls/hr IV Q8HR CHANDAN Rx #:[id number] Tube Feeding 450 Output: Drainage 40 Left Anterior Abdomen 40 Urine 1300 800 Other: # Bowel Movements 300 Stool Characteristics Liquid Liquid Weight Source [facility] Laboratory Results - last 24 hr 11/06/17 11/07/17 11/07/17 17:43 01:52 04:45 WBC 32.0 H* RBC 3.83 L Hgb 12.1 Hct 36.5 L MCV 95.3 MCH 31.6 H MCHC Differential 33.2 RDW 14.9 Plt Count 331 MPV 8.8 Neutrophils % [employer] Band Neutrophils % 3 Lymphocytes % [employer]PER Monocytes % WRAP[employer] DIPPER Eosinophils % WRAPPER DIPPER Basophils % WRAP[employer]IPPER Neutrophils (Manual) 74 Lymphocytes 16 L Monocytes 4 Eosinophils 3 Sodium Potassium Chloride Carbon Dioxide Anion Gap BUN Creatinine Est GFR ( Amer) Est GFR (Non-Af Amer) BUN/Creatinine Ratio Glucose POC Glucose 131 H 108 H Calcium Magnesium Total Bilirubin AST ALT Alkaline Phosphatase Total Protein Albumin Globulin Albumin/Globulin Ratio 11/07/17 11/07/17 11/07/17 04:45 05:42 11:51 WBC RBC Hgb Hct MCV MCH MCHC Differential RDW Plt Count MPV Neutrophils % Band Neutrophils % Lymphocytes % Monocytes % Eosinophils % Basophils % Neutrophils (Manual) Lymphocytes Monocytes Eosinophils Sodium 141 Potassium 4.3 Chloride 111 H Carbon Dioxide 22.2 Anion Gap 12.1 BUN 30 H Creatinine 0.9 Est GFR ( Amer) > 60.0 Est GFR (Non-Af Amer) > 60.0 BUN/Creatinine Ratio 33.3 Glucose 116 H POC Glucose 124 H 101 Calcium 8.3 L Magnesium 1.9 Total Bilirubin 0.9 AST 49 H ALT 36 Alkaline Phosphatase 162 H Total Protein 5.7 L Albumin 2.9 L Globulin 2.8 Albumin/Globulin Ratio 1.0 Home Medication Medication Instructions Recorded Type Calcium Carb/Magnesium Hydrox 2 tab PO DAILY 09/23/17 History [Mi-Acid Ds Tablet] Clobazam [Onfi] 1 tab PO BID 09/23/17 History Ibuprofen 1 tab PO Q6H PRN 09/23/17 History Levalbuterol HCl [Levalbuterol 1 unit HHN Q4H PRN 09/23/17 History Concentrate] Levothyroxine [Synthroid] 1 tab PO DAILY 09/23/17 History Loratadine [Claritin] 1 tab PO DAILY 09/23/17 History Lorazepam [Ativan] 1 tab PO BID PRN 09/23/17 History Lorazepam [Ativan] 2 mg IM PRN PRN 09/23/17 History Methotrexate Sodium [Methotrexate] 10 mg PO QWEEK 0730 09/23/17 History Multivit,Th Iron,Other Min 1 tab PO DAILY 09/23/17 History [Thera-M] Phosp Acid/Dextrose/Fructose 30 ml PO Q15MIN PRN 09/23/17 History [Emetrol Oral Solution] QUEtiapine Fumarate [SEROquel] 1 tab PO BID 09/23/17 History Rifaximin [Xifaxan] 1 tab PO BID 09/23/17 History Tamsulosin [Flomax] 1 tab PO HS 09/23/17 History Acetaminophen [Tylenol Arthritis] 650 mg PO Q6H PRN 10/24/17 History Albuterol/Ipratropium Neb [Duoneb 3 ml HHN BID 10/24/17 History Neb] Alendronate Sodium [Fosamax*] 70 mg PO QWEEK 0730 10/24/17 History Benztropine [Cogentin*] 1 mg PO BID 10/24/17 History Biotin 1,000 mcg PO DAILY 10/24/17 History Bismatrol 2 tsp PO Q4H PRN 10/24/17 History Brimonidine 0.2% Ophth Soln 1 drop EACH EYE BID 10/24/17 History [Alphagan 0.2% Ophth Soln] Calcium Carbonate [Calcium Carb] 648 mg PO BID 10/24/17 History Chlorhexidine Gluconate 0.12% 15 ml MM DAILY 10/24/17 History [Peridex] Clonazepam [Clonazepam*] 1 mg PO BID 10/24/17 History Dorzolamide HCl/Timolol Maleat 1 drop OP BID 10/24/17 History [Dorzolamide-Timolol Eye Drops] Ergocalciferol (Vitamin D2) 7 drop PO DAILY 10/24/17 History [Ergocalciferol] Escitalopram Oxalate [Lexapro] 20 mg PO DAILY 10/24/17 History Eslicarbazepine Acetate [Aptiom] 600 mg PO 1700 10/24/17 History Finasteride [Proscar*] 5 mg PO DAILY 10/24/17 History Fluticasone Propionate Nasal 2 spr NS DAILY 10/24/17 History [Flonase] Folic Acid [Folate*] 1 mg PO DAILY 10/24/17 History Guaifenesin/Dextromethorphan 10 ml PO Q4H PRN 10/24/17 History [Robafen-Dm Syrup] Hydrocortisone 1% Cream 1 appl TP BID PRN 10/24/17 History [Hydrocortisone 1%] L. Acidophilus/L.bulgaricus 1 each PO BID 10/24/17 History [Lactinex Chewable Tablet] Lactulose 20 gm PO TID 10/24/17 History Lamotrigine 200 mg PO DAILY 10/24/17 History Lamotrigine 350 mg PO HS 10/24/17 History Latanoprost 0.005% Ophth Soln 1 drop EACH EYE HS 10/24/17 History [Xalatan 0.005% Ophth Soln] Levetiracetam [Keppra] 1,000 mg PO BID 10/24/17 History Loperamide HCl [Anti-Diarrhea] 4 mg PO PRN PRN 10/24/17 History Miconazole Nitrate [Lotrimin AF] 2 % TP BID 10/24/17 History Mineral Oil/Hydrophil Petrolat 1 appl TP BID 10/24/17 History [Aquaphor Ointment] Simethicone [Gas Relief Drops] 1.8 ml PO Q6H 10/24/17 History Sodium Chloride [[place]] 45 ml NS QID 10/24/17 History levOCARNitine [Carnitor] 660 mg PO TID 10/24/17 History Hydrocodone/APAP 5mg/325mg [[place] 1 tab PO Q6H PRN 11/01/17 History 5mg/325mg] Current Medications Generic Name Dose Route Start Last Admin Trade Name Freq PRN Reason Stop Dose Admin Acetaminophen 650 mg 11/01/17 10:06 Tylenol PO Q6H PRN PAIN OR FEVER >100 Acetaminophen/Hydrocodone Bitart 1 tab 11/01/17 10:06 [place] 5mg/325mg PO 12/31/17 10:05 Q6H PRN PAIN/DISCOMFORT Albuterol Sulfate 2.5 mg 11/01/17 11:20 Albuterol 2.5mg/3ml Neb Ud HHN 12/31/17 11:19 Q4HRT PRN Shortness of Breath Benztropine Mesylate 1 mg 11/01/17 17:00 11/07/17 09:18 Cogentin PO 12/31/17 16:59 1 mg BID CHANDAN Administration Brimonidine Tartrate 1 drop 11/01/17 17:00 11/07/17 09:19 Alphagan 0.2% Ophth Soln EACH EYE 12/31/17 16:59 1 drop BID CHANDAN Administration Chlorhexidine Gluconate 15 ml 11/03/17 10:00 11/07/17 09:21 Peridex MM 01/02/18 09:59 15 ml DAILY CHANDAN Administration Clonazepam 1 mg 11/01/17 17:00 11/07/17 09:18 Klonopin PO 12/31/17 16:59 1 mg BID CHANDAN Administration Dorzolamide/Timolol 1 drop 11/01/17 17:00 11/07/17 09:19 Cosopt Ophth Soln RIGHT EYE 12/31/17 16:59 1 drop BID CHANDAN Administration Escitalopram Oxalate 20 mg 11/02/17 09:00 11/07/17 09:18 Lexapro PO 01/01/18 08:59 20 mg DAILY CHANDAN Administration Protocol Fluticasone Propionate 2 spr 11/02/17 09:00 11/07/17 09:20 Flonase NS 01/01/18 08:59 2 spr DAILY CHANDAN Administration Hydrocortisone 1 appl 11/01/17 10:06 Hydrocortisone 1% TP 12/31/17 10:05 BID PRN Rash Meropenem 500 mg/ Sodium 100 mls @ 100 mls/hr 11/01/17 12:00 11/07/17 12:14 Chloride IV 12/31/17 11:59 100 mls/hr Q12H CHANDAN Administration Dextrose/Sodium Chloride 1,000 mls @ 20 mls/hr 11/03/17 16:00 11/06/17 18:26 D5-0.9%Ns IV 01/02/18 15:59 20 mls/hr .Q24H [facility]AN Infusion Levetiracetam 1,000 mg/ Sodium 110 mls @ 200 mls/hr 11/03/17 21:00 11/07/17 11:31 Chloride IV 01/02/18 20:59 200 mls/hr Q12H CH[facility]AN Administration Amphotericin B 50 mg/ Sterile 1,000 mls @ 100 mls/hr 11/04/17 18:00 11/06/17 18:27 Water IR 11/09/17 17:59 100 mls/hr Q24H CH[facility]AN Infusion Metronidazole 500 mg in 100 mls @ 100 mls/hr 11/05/17 13:00 11/07/17 12:14 Flagyl IV 01/04/18 12:59 100 mls/hr Q8HR CHANDAN Administration Insulin Aspart 0 units 11/03/17 08:00 11/07/17 12:07 Novolog Insulin Sliding Scale SUBQ 01/02/18 07:59 Not Given Q6HR CHANDAN Protocol Lamotrigine 200 mg 11/02/17 09:00 11/07/17 09:18 Lamictal PO 01/01/18 08:59 200 mg DAILY CHANDAN Administration Lamotrigine 350 mg 11/01/17 21:00 11/06/17 21:06 Lamictal PO 12/31/17 20:59 350 mg HS CHANDAN Administration Latanoprost 1 drop 11/01/17 21:00 11/06/17 21:06 Xalatan 0.005% Ophth Soln EACH EYE 12/31/17 20:59 1 drop HS CHANDAN Administration Levothyroxine Sodium 0.125 mg 11/02/17 09:00 11/07/17 09:20 Synthroid PO 01/01/18 08:59 0.125 mg DAILY CHANDAN Administration Methotrexate 10 mg 11/04/17 07:30 11/04/17 07:42 Methotrexate PO 01/03/18 07:29 Not Given Tu@0730 [facility] Protocol Miconazole Nitrate 1 appl 11/01/17 17:00 11/07/17 09:21 Micatin 2% TP 12/31/17 16:59 1 appl BID CHANDAN Administration Pantoprazole Sodium 40 mg 11/01/17 17:00 11/07/17 11:32 Protonix IVP 12/31/17 16:59 40 mg BID CHANDAN Administration Patient Own Med Onfi 1 11/02/17 17:00 11/07/17 09:19 20mg Tablet PO 01/01/18 16:59 1 BID CH[facility]AN Administration Patient Own Med 1 11/02/17 17:00 11/06/17 16:25 Aptiom 600mg Tablet PO 01/01/18 16:59 1 QPM CHANDAN Administration Petrolatum 1 appl 11/01/17 17:00 11/07/17 09:20 Vaseline Oint TP 12/31/17 16:59 1 appl BID CHANDAN Administration Quetiapine Fumarate 25 mg 11/01/17 17:00 11/07/17 11:32 Seroquel PO 12/31/17 16:59 25 mg BID CHANDAN Administration Protocol Rifaximin 600 mg 11/01/17 17:00 11/07/17 11:32 Xifaxan PO 12/31/17 16:59 600 mg BID CH[facility]AN Administration Sodium Chloride 1 spr 11/01/17 13:00 11/07/17 12:14 Weed Nasal [place] NS 12/31/17 12:59 1 spr QID CHANDAN Administration Review of Systems: A 12 point ROS was reviewed with the pertinent positive and negatives noted in the HPI. Unable to give nay meaningful history. Social History Lives at [facility]. Smoking Status Unknown if ever smoked Family Medical History Not available. Physical Exam: General: Comfortable, no distress. HEENT: Head: normocephaklic, atraumatic. Oral cavity moist, pink tongue. Eyes: pallor is present. Neck: Supple. No JVD, no carotid bruit. Cardio: S1 and S2 WNL. RRR Respiratory: CTAP. Abdominal: surgical wound healthy, ileostomy on RLQ. JULIUS drain blood stained clear fluid. Genital/Urinary: indwelling burgess, WNL. Extremities: NCCE Neurological: drowsy. Assessment: 1. Leukocytosis. 2. Perironitis. 3. Cerebral palsy. 4. H/o seizure disorder. Plan: Change antibiotics to zosyn and levaquin. Continue amphoB bladder irrigation. Thank you, Dr Butler and Dr Rick for involvng me in taking care of this patient. Flakita, Shawn Avendano M.D. [id number]
--- NOTE | 2017-11-07 13:26 | Diagnostic Imaging Report ---
KUB abdominal film HISTORY: Abdominal distention, free intraperitoneal air The exam demonstrates mild to moderately dilated small bowel. Air is noted in the rectal region. Continued follow up/monitoring recommended. Free intraperitoneal air seen on a chest radiograph performed earlier in the day cannot be clearly appreciated on this exam. In view the patient's history, this finding is consistent with recent surgery. IMPRESSION: 1. Free intraperitoneal air noted on the chest radiograph performed earlier today is not clearly visualized on these abdominal images. 2. Dilated small bowel loops. Significance should be correlated clinically. Follow-up is recommended.
--- NOTE | 2017-11-07 14:49 | Internal Medicine Prog Note ---
Internal Medicine Subjective - Subjective Service Date: 11/07/17 Patient seen and examined:: with staff Patient is:: awake Patient Complaints of:: vomitting Per staff patient has:: poor appetite, tolerating meds Internal Medicine Objective - Results Result Diagrams: 11/07/17 04:45 11/07/17 04:45 Recent Labs: Laboratory Last Values WBC 32.0 Th/cmm (4.8-10.8) H* 11/07/17 04:45 RBC 3.83 Mil/cmm (4.30-5.70) L 11/07/17 04:45 Hgb 12.1 gm/dL (12-16) 11/07/17 04:45 Hct 36.5 % (41.0-60) L 11/07/17 04:45 MCV 95.3 fl (80-99) 11/07/17 04:45 MCH 31.6 pg (26.0-30.0) H 11/07/17 04:45 MCHC Differential 33.2 pg (28.0-36.0) 11/07/17 04:45 RDW 14.9 % (11.5-20.0) 11/07/17 04:45 Plt Count 331 Th/cmm (150-400) 11/07/17 04:45 MPV 8.8 fl 11/07/17 04:45 Neutrophils % [facility] 11/07/17 04:45 Band Neutrophils % 3 % (0-10) 11/07/17 04:45 Lymphocytes % [place] 11/07/17 04:45 Monocytes % [facility] 11/07/17 04:45 Eosinophils % [place] 11/07/17 04:45 Basophils % [place] [facility] 11/07/17 04:45 Neutrophils (Manual) 74 % (40-80) 11/07/17 04:45 Lymphocytes 16 % (20-50) L 11/07/17 04:45 Monocytes 4 % (2-10) 11/07/17 04:45 Eosinophils 3 % (0-5) 11/07/17 04:45 Platelet Estimate ADEQUATE (NORMAL) 11/06/17 05:45 PT 10.4 SECONDS (9.5-11.5) 11/04/17 05:40 INR 1.00 (0.5-1.4) 11/04/17 05:40 PTT (Actin FS) 22.4 SECONDS (26.0-38.0) L 11/04/17 05:40 Sodium 141 mEq/L (136-145) 11/07/17 04:45 Potassium 4.3 mEq/L (3.5-5.1) 11/07/17 04:45 Chloride 111 mEq/L (98-107) H 11/07/17 04:45 Carbon Dioxide 22.2 mEq/L (21.0-31.0) 11/07/17 04:45 Anion Gap 12.1 (7.0-16.0) 11/07/17 04:45 BUN 30 mg/dL (7-25) H 11/07/17 04:45 Creatinine 0.9 mg/dL (0.7-1.3) 11/07/17 04:45 Est GFR ( Amer) > 60.0 ml/min (>90) 11/07/17 04:45 Est GFR (Non-Af Amer) > 60.0 ml/min 11/07/17 04:45 BUN/Creatinine Ratio 33.3 11/07/17 04:45 Glucose 116 mg/dL (70-105) H 11/07/17 04:45 POC Glucose 101 MG/DL (70 - 105) 11/07/17 11:51 Whole Bld Lactic Acid 1.20 mmol/L (0.60-1.99) 11/01/17 08:49 Calcium 8.3 mg/dL (8.6-10.3) L 11/07/17 04:45 Phosphorus 2.3 mg/dL (2.5-5.0) L 11/06/17 05:45 Magnesium 1.9 mg/dL (1.9-2.7) 11/07/17 04:45 Total Bilirubin 0.9 mg/dL (0.3-1.0) 11/07/17 04:45 AST 49 U/L (13-39) H 11/07/17 04:45 ALT 36 U/L (7-52) 11/07/17 04:45 Alkaline Phosphatase 162 U/L (34-104) H 11/07/17 04:45 Troponin I 0.03 ng/mL (0.01-0.05) 11/01/17 08:49 B-Natriuretic Peptide 66.6 pg/mL (5.0-100.0) 11/06/17 05:45 Total Protein 5.7 gm/dL (6.0-8.3) L 11/07/17 04:45 Albumin 2.9 gm/dL (4.2-5.5) L 11/07/17 04:45 Globulin 2.8 gm/dL 11/07/17 04:45 Albumin/Globulin Ratio 1.0 (1.0-1.8) 11/07/17 04:45 Prealbumin 30 mg/dL (10-36) 11/03/17 06:20 Triglycerides 196 mg/dL (<150) H 11/02/17 06:13 Cholesterol 158 mg/dL (<200) 11/03/17 06:20 Lipase 38 U/L (11-82) 11/01/17 08:49 TSH 12.56 uIU/ml (0.34-5.60) H 11/01/17 08:49 Urine Source RANDOM 11/01/17 09:20 Urine Color YELLOW 11/01/17 09:20 Urine Clarity HAZY (CLEAR) 11/01/17 09:20 Urine pH 5.5 (4.6 - 8.0) 11/01/17 09:20 Ur Specific [place] >= 1.030 (1.005-1.030) 11/01/17 09:20 Urine Protein 100 mg/dL (NEGATIVE) H 11/01/17 09:20 Urine Glucose (UA) NEGATIVE mg/dL (NEGATIVE) 11/01/17 09:20 Urine Ketones NEGATIVE mg/dL (NEGATIVE) 11/01/17 09:20 Urine Blood TRACE (NEGATIVE) 11/01/17 09:20 Urine Nitrate NEGATIVE (NEGATIVE) 11/01/17 09:20 Urine Bilirubin SMALL (NEGATIVE) H 11/01/17 09:20 Urine Urobilinogen 0.2 E.U./dL (0.2 - 1.0) 11/01/17 09:20 Ur Leukocyte Esterase SMALL (NEGATIVE) H 11/01/17 09:20 Urine RBC 0-2 /hpf (0-5) H 11/01/17 09:20 Urine WBC 50-100 /hpf (0-5) H 11/01/17 09:20 Ur Epithelial Cells MODERATE /lpf (FEW) 11/01/17 09:20 Urine Bacteria MODERATE /hpf (NONE SEEN) H 04/28/18 09:20 - Physical Exam Vitals and I&O: Vital Signs Temp 97.8 F 11/07/17 11:51 Pulse 83 11/07/17 11:51 Resp 19 11/07/17 11:51 BP 115/71 11/07/17 11:51 Pulse Ox 100 11/07/17 11:51 Intake & Output 11/06/17 11/07/17 11/07/17 18:59 06:59 18:59 Intake Total 3474.8337 410 Output Total 1340 800 Balance 2134.8337 -390 Weight (lbs) 201 lb 207 lb 1.6 oz Intake: Intake, IV Amount 3024.8337 410 D5-0.9%Ns 1,000 ml @ 20 854.000 mls/hr IV .Q24H [facility] Rx#: [id number] Levetiracetam 1,000 mg In 110 110 Sodium Chloride 0.9% 100 ml @ 200 mls/hr IV Q12H [facility] Rx#:[id number] Meropenem 500 mg In 100 100 Sodium Chloride 0.9% 100 ml @ 100 mls/hr IV Q12H [facility] Rx#:[id number] Multivitamin Inj 10 ml In 104.167 Dextrose 70% 490 ml In Amino Acids 10% 500 ml In Intralipids 20% 200 ml @ 50 mls/hr IV .Q24H [facility] Rx#:[id number] metroNIDAZOLE 500mg/NS 100 200 100mL 500 mg In 100 ml @ 100 mls/hr IV Q8HR [facility] Rx #:[id number] Tube Feeding 450 Output: Drainage 40 Left Anterior Abdomen 40 Urine 1300 800 Other: # Bowel Movements 300 Stool Characteristics Liquid Liquid Weight Source Bedscale Bedscale Active Medications: Current Medications Acetaminophen (Tylenol) 650 mg PO Q6H PRN PRN Reason: PAIN OR FEVER >100 Acetaminophen/Hydrocodone Bitart ([place] 5mg/325mg) 1 tab PO Q6H PRN PRN Reason: PAIN/DISCOMFORT Stop: 12/31/17 10:05 Albuterol Sulfate (Albuterol 2.5mg/3ml Neb Ud) 2.5 mg HHN Q4HRT PRN PRN Reason: Shortness of Breath Stop: 12/31/17 11:19 Benztropine Mesylate (Cogentin) 1 mg PO BID [facility] Stop: 12/31/17 16:59 Last Admin: 11/07/17 09:18 Dose: 1 mg Brimonidine Tartrate (Alphagan 0.2% Ophth Soln) 1 drop EACH EYE BID [facility] Stop: 12/31/17 16:59 Last Admin: 11/07/17 09:19 Dose: 1 drop Chlorhexidine Gluconate (Peridex) 15 ml MM DAILY [facility] Stop: 01/02/18 09:59 Last Admin: 11/07/17 09:21 Dose: 15 ml Clonazepam (Klonopin) 1 mg PO BID [facility] Stop: 12/31/17 16:59 Last Admin: 11/07/17 09:18 Dose: 1 mg Dorzolamide/Timolol (Cosopt Ophth Soln) 1 drop RIGHT EYE BID [facility] Stop: 12/31/17 16:59 Last Admin: 11/07/17 09:19 Dose: 1 drop Escitalopram Oxalate (Lexapro) 20 mg PO DAILY [facility] PRN Reason: Protocol Stop: 01/01/18 08:59 Last Admin: 11/07/17 09:18 Dose: 20 mg Fluticasone Propionate (Flonase) 2 spr NS DAILY [facility] Stop: 01/01/18 08:59 Last Admin: 11/07/17 09:20 Dose: 2 spr Hydrocortisone (Hydrocortisone 1%) 1 appl TP BID PRN PRN Reason: Rash Stop: 12/31/17 10:05 Dextrose/Sodium Chloride (D5-0.9%Ns) 1,000 mls @ 20 mls/hr IV .Q24H [facility] Stop: 01/02/18 15:59 Last Infusion: 11/06/17 18:26 Dose: 20 mls/hr Levetiracetam 1,000 mg/ Sodium (Chloride) 110 mls @ 200 mls/hr IV Q12H [facility] Stop: 01/02/18 20:59 Last Admin: 11/07/17 11:31 Dose: 200 mls/hr Amphotericin B 50 mg/ Sterile (Water) 1,000 mls @ 100 mls/hr IR Q24H [facility] Stop: 11/09/17 17:59 Last Infusion: 11/06/17 18:27 Dose: 100 mls/hr Levofloxacin (Levaquin Pb) 750 mg in 150 mls @ 100 mls/hr IV Q24HR [facility] Stop: 01/06/18 14:59 Piperacillin Sod/Tazobactam (Sod 4.5 gm/ Sodium Chloride) 100 mls @ 100 mls/hr IV Q8HR [facility] Stop: 01/06/18 20:59 Insulin Aspart (Novolog Insulin Sliding Scale) 0 units SUBQ Q6HR [facility] PRN Reason: Protocol Stop: 01/02/18 07:59 Last Admin: 11/07/17 12:07 Dose: Not Given Lamotrigine (Lamictal) 200 mg PO DAILY [facility] Stop: 01/01/18 08:59 Last Admin: 11/07/17 09:18 Dose: 200 mg Lamotrigine (Lamictal) 350 mg PO HS [facility] Stop: 12/31/17 20:59 Last Admin: 11/06/17 21:06 Dose: 350 mg Latanoprost (Xalatan 0.005% Ophth Soln) 1 drop EACH EYE HS [facility] Stop: 12/31/17 20:59 Last Admin: 11/06/17 21:06 Dose: 1 drop Levothyroxine Sodium (Synthroid) 0.125 mg PO DAILY [facility] Stop: 01/01/18 08:59 Last Admin: 11/07/17 09:20 Dose: 0.125 mg Methotrexate (Methotrexate) 10 mg PO Tu@0730 [facility] PRN Reason: Protocol Stop: 01/03/18 07:29 Last Admin: 11/04/17 07:42 Dose: Not Given Miconazole Nitrate (Micatin 2%) 1 appl TP BID [facility] Stop: 12/31/17 16:59 Last Admin: 11/07/17 09:21 Dose: 1 appl Pantoprazole Sodium (Protonix) 40 mg IVP BID [facility] Stop: 12/31/17 16:59 Last Admin: 11/07/17 11:32 Dose: 40 mg Patient Own Med Onfi (20mg Tablet) 1 PO BID [facility] Stop: 01/01/18 16:59 Last Admin: 11/07/17 09:19 Dose: 1 Patient Own Med (Aptiom 600mg Tablet) 1 PO QPM [facility] Stop: 01/01/18 16:59 Last Admin: 11/06/17 16:25 Dose: 1 Petrolatum (Vaseline Oint) 1 appl TP BID [facility] Stop: 12/31/17 16:59 Last Admin: 11/07/17 09:20 Dose: 1 appl Quetiapine Fumarate (Seroquel) 25 mg PO BID [facility] PRN Reason: Protocol Stop: 12/31/17 16:59 Last Admin: 11/07/17 11:32 Dose: 25 mg Rifaximin (Xifaxan) 600 mg PO BID [facility] Stop: 12/31/17 16:59 Last Admin: 11/07/17 11:32 Dose: 600 mg Sodium Chloride ([place] Nasal [place]) 1 spr NS QID [facility] Stop: 12/31/17 12:59 Last Admin: 11/07/17 12:14 Dose: 1 spr General: weak HEENT: NC/AT, PERRLA Neck: Supple Lungs: CTAB Cardiovascular: RRR, Normal S1, Normal S2, without murmur Abdomen: soft, +GT, positive bowel sound Extremities: excoriation - Procedures Procedures: Procedures Procedure Code Date BYPASS ILEUM TO CUTANEOUS, OPEN APPROACH [id number] 09/23/17 CHANGE FEEDING DEVICE IN UP INTEST TRACT, RUBY ON RAILS WEB DEVELOPER APPROACH [id number] 11/01/17 CHANGE GASTROSTOMY TUBE 91575 11/01/17 DRAINAGE OF SMALL INTESTINE, ENDO [id number] 11/01/17 EXPLORATION OF ABDOMEN 65766 11/01/17 FREEING OF BOWEL ADHESION 95174 11/01/17 ILEOSTOMY/JEJUNOSTOMY 37272 09/23/17 INSERTION OF ENDOTRACHEAL AIRWAY INTO TRACHEA, VIA OPENING [id number] 09/23/17 INSERTION OF FEEDING DEVICE INTO STOMACH, OPEN APPROACH [id number] 09/23/17 INTRODUCTION OF NUTRITIONAL INTO CENTRAL VEIN, PERC APPROACH [id number] 09/23/17 PARTIAL REMOVAL OF COLON 33135 09/23/[address] PL[address] GASTROSTOMY TUBE 90340 09/23/17 RELEASE PERITONEUM, OPEN APPROACH [id number] 09/23/17 RELEASE SMALL INTESTINE, OPEN APPROACH [id number] 11/01/17 REPAIR SMALL INTESTINE, OPEN APPROACH [id number] 11/01/17 RESECTION OF LARGE INTESTINE, OPEN APPROACH [id number] 09/23/17 RESPIRATORY VENTILATION, LESS THAN 24 CONSECUTIVE HOURS [id number] 09/23/17 SUTURE SMALL INTESTINE 30605 11/01/17 Internal Medicine Assmt/Plan - Assessment Assessment: s/p peg placement sepsis intractable vomiting small bowel obstruction acute renal insufficiency acute uti mr cp seizures generalized contractures - Plan Plan: continue with bladder irrigation CONTINUE WITH PPN FOR NUTRITIONAL SUPPORT MONITOR LYTES CONTINUE CURRENT PLAN OF CARE Nutritional Asmnt/Malnutr-PDOC - Dietary Evaluation Malnutrition Findings (Please click <Entered> for more info): Nutritional Asmnt/Malnutrition Start: 11/03/17 14: 15 Text: Status: Complete Freq: Document 11/03/17 14:15 ELGIN (Rec: 11/03/17 14:45 ELGIN [email or web address]) Nutritional Asmnt/Malnutrition Patient General Information Nutritional Screening High Risk Consult Diagnosis UTI Pertinent Medical Hx/Surgical Hx MR, cerebral palsy, seizure, colectomy, generalized contractures, ileostomy Subjective Information Consult received for freddy cox. Pt had gtube replacement this morning. Pt now on TPN. May start tube feeding if small bowel series does not show bowel obstruction per MD note. Current Diet Order/ Nutrition Support TPN D10% A4.25%, lipid 20% 150ml at 50ml/hr providing 912kcal, 51g protein Pertinent Medications D5-0.9%ns, novolog, synthroid, k phos Pertinent Labs 11/03 cl 113, Bun 45, glucose 100, POC 92 Nutritional Hx/Data Height 5 ft 10 in Height (Calculated Centimeters) 177.8 Current Weight (lbs) 151 lb Weight (Calculated Kilograms) 68.5 Weight (Calculated Grams) 18528.4 [place] Body Weight 166 Body Mass Index (BMI) 21.7 Weight Status Approriate GI Symptoms GI Symptoms None Last BM 0 Difficult in: None Skin Integrity/Comment: rash to right and left foot, scar to abdomen Current %PO Good (75-100%) Estimated Nutritional Goals BEE in Kcals: Using Current wt Calories/Kcals/Kg 23-27 Kcals Calculated 2543-0982 Protein: Using Current wt Protein g/k-1.1 Protein Calculated 69-76 Fluid: ml 1587-1863ml 91ml/kcal) Nutritional Problem No current Nutrition Prob Problem altered GI function Etiology possible small bowel obstruction Signs/Symptoms: pt on TPN Malnutrition Alert Protein-Calorie Malnutrition N/A Is there a minimum of two criteria No selected? Query Text:Check all the applicable criteria. A minimum of two criteria are recommended for diagnosis of either severe or non-severe malnutrition. Intervention/Recommendation Comments 1. If continue with TPN, recommend D12%, AA4%, lipid 20 % 200ml at 80ml/hr. it provides 1555kcal, 250CHO (2. 5mg/kg/min), 76g protein. 2. If TF needed, recommend Fibersource HN starting at 20ml/hr for first 24hr. If tolerated, increase to goal rate of 55ml and wean TPN. 3. Monitor nutrition support, wt, skin integrity and labs 3. F/U as high risk in 2-3 days, 5/-/ Expected Outcomes/Goals Expected Outcomes/Goals 1. Pt to meet at least 75% of nutritional needs via nutrition support with tolerance 2. Wt stability, skin to remain intact, labs to approach WNL.
[2017-11-07] MEDS: Levofloxacin 750mg/150mL 750 MG/150 ML BAG IV SCH (15:56)
[2017-11-07] MEDS: D5-0.9%NS 1,000 ML IV SCH (15:57)
[2017-11-07] MEDS: APTIOM 600 MG PO SCH (16:22)
[2017-11-07] MEDS: AMPHOTERICIN B IR SCH (18:46)
[2017-11-07] MEDS: STERILE WATER FOR IRRIGATION IR SCH (18:46)
[2017-11-08 04:54] LABS: % BASOPHILS 0.4 % (0.0-2.0); % EOSINOPHILS 5.5 % (0.0-5.0); % LYMPHOCYTES 8.4 % (20.0-50.0); % MONOCYTES 13.2 % (2.0-10.0); % NEUTROPHILS 72.5 % (40.0-80.0); BASOPHILE ABSOLUTE 0.1 Th/cumm (0-0.2); HEMATOCRIT 32.7 % (41.0-60); HEMOGLOBIN 11.3 gm/dL (12-16); LYMPHOCYTE ABSOLUTE 1.5 Th/cmm (1.5-3.0); MEAN CELL VOLUME 95.8 fl (80-99); MEAN CORPUSCULAR HEMOGLOBIN 32.9 pg (26.0-30.0); MEAN CORPUSCULAR HGB CONC 34.4 pg (28.0-36.0); MEAN PLATELET VOLUME 8.6 fl; MONOCYTE ABSOLUTE 2.3 Th/cmm (0.3-1.0); NEUTROPHILE ABSOLUTE 12.5 Th/cmm (1.8-8.0); PLATELET COUNT 407 Th/cmm (150-400); RED BLOOD COUNT 3.42 Mil/cmm (4.30-5.70)
[2017-11-08 05:14] LABS: WHITE BLOOD COUNT 17.4 Th/cmm (4.8-10.8)
[2017-11-08 05:41] LABS: ALBUMIN 2.8 gm/dL (4.2-5.5); ALKALINE PHOSPHATASE 159 U/L (34-104); ANION GAP 10.7 (7.0-16.0); BILIRUBIN,TOTAL 0.6 mg/dL (0.3-1.0); BUN - UREA NITROGEN 33 mg/dL (7-25); CALCIUM SERUM 8.3 mg/dL (8.6-10.3); CARBON DIOXIDE 21.4 mEq/L (21.0-31.0); CHLORIDE 112 mEq/L (98-107); CREATININE - SERUM 1.1 mg/dL (0.7-1.3); GFR AFRICAN-AMERICAN > 60.0 ml/min (>90); GFR NON AFRICAN-AMERICAN > 60.0 ml/min; GLUCOSE 110 mg/dL (70-105); MAGNESIUM 1.8 mg/dL (1.9-2.7); POTASSIUM SERUM 4.1 mEq/L (3.5-5.1); SGOT 18 U/L (13-39); SGPT/ALT 24 U/L (7-52); SODIUM SERUM 140 mEq/L (136-145); TOTAL PROTEIN,SERUM 5.6 gm/dL (6.0-8.3)
[2017-11-08] MEDS: INSULIN ASPART SLIDING SCALE 100 UNITS/ML UNIT SUBQ SCH ×3 (07:55→13:14)
[2017-11-08] MEDS: Benztropine 1 MG TAB PO SCH ×2 (09:20→18:15)
[2017-11-08] MEDS: Multivitamin w/ Minerals Tab PO SCH (09:20)
[2017-11-08] MEDS: Petrolatum (White) Oint 0.6 Oz Tube TP SCH ×2 (09:25→18:18)
[2017-11-08] MEDS: Saline 0.65% Nasal Spray NS SCH ×4 (09:48→21:27)
[2017-11-08] MEDS: Fluticasone Propionate 0.05mg/Actuation 16gm Nasal Spray NS SCH (09:48)
[2017-11-08] MEDS: Chlorhexidine Gluconate 0.12% 480mL Bottle MM SCH (09:49)
--- NOTE | 2017-11-08 10:00 | General Progress Note ---
Subjective - Review of Systems Service Date: 11/08/17 Events since last encounter: Wbc down, incision redressed, clean, no drainage or infection abdomen is soft, started on GT feedings, tolerating, ileostomy output 500 cc Objective - Results Result Diagrams: 11/08/17 04:30 11/08/17 04:30 Recent Labs: Laboratory Last Values WBC 17.4 Th/cmm (4.8-10.8) H D 11/08/17 04:30 RBC 3.42 Mil/cmm (4.30-5.70) L 11/08/17 04:30 Hgb 11.3 gm/dL (12-16) L 11/08/17 04:30 Hct 32.7 % (41.0-60) L 11/08/17 04:30 MCV 95.8 fl (80-99) 11/08/17 04:30 MCH 32.9 pg (26.0-30.0) H 11/08/17 04:30 MCHC Differential 34.4 pg (28.0-36.0) 11/08/17 04:30 RDW 15.0 % (11.5-20.0) 11/08/17 04:30 Plt Count 407 Th/cmm (150-400) H D 11/08/17 04:30 MPV 8.6 fl 11/08/17 04:30 Neutrophils % 72.5 % (40.0-80.0) 11/08/17 04:30 Band Neutrophils % 3 % (0-10) 11/07/17 04:45 Lymphocytes % 8.4 % (20.0-50.0) L 11/08/17 04:30 Monocytes % 13.2 % (2.0-10.0) H 11/08/17 04:30 Eosinophils % 5.5 % (0.0-5.0) H 11/08/17 04:30 Basophils % 0.4 % (0.0-2.0) 11/08/17 04:30 Neutrophils (Manual) 74 % (40-80) 11/07/17 04:45 Lymphocytes 16 % (20-50) L 11/07/17 04:45 Monocytes 4 % (2-10) 11/07/17 04:45 Eosinophils 3 % (0-5) 11/07/17 04:45 Platelet Estimate ADEQUATE (NORMAL) 11/06/17 05:45 PT 10.4 SECONDS (9.5-11.5) 11/04/17 05:40 INR 1.00 (0.5-1.4) 11/04/17 05:40 PTT (Actin FS) 22.4 SECONDS (26.0-38.0) L 11/04/17 05:40 Sodium 140 mEq/L (136-145) 11/08/17 04:30 Potassium 4.1 mEq/L (3.5-5.1) 11/08/17 04:30 Chloride 112 mEq/L (98-107) H 11/08/17 04:30 Carbon Dioxide 21.4 mEq/L (21.0-31.0) 11/08/17 04:30 Anion Gap 10.7 (7.0-16.0) 11/08/17 04:30 BUN 33 mg/dL (7-25) H 11/08/17 04:30 Creatinine 1.1 mg/dL (0.7-1.3) 11/08/17 04:30 Est GFR ( Amer) > 60.0 ml/min (>90) 11/08/17 04:30 Est GFR (Non-Af Amer) > 60.0 ml/min 11/08/17 04:30 BUN/Creatinine Ratio 30.0 11/08/17 04:30 Glucose 110 mg/dL (70-105) H 11/08/17 04:30 POC Glucose 131 MG/DL (70 - 105) H 11/08/17 06:00 Whole Bld Lactic Acid 1.20 mmol/L (0.60-1.99) 11/01/17 08:49 Calcium 8.3 mg/dL (8.6-10.3) L 11/08/17 04:30 Phosphorus 2.3 mg/dL (2.5-5.0) L 11/06/17 05:45 Magnesium 1.8 mg/dL (1.9-2.7) L 11/08/17 04:30 Total Bilirubin 0.6 mg/dL (0.3-1.0) 11/08/17 04:30 AST 18 U/L (13-39) 11/08/17 04:30 ALT 24 U/L (7-52) 11/08/17 04:30 Alkaline Phosphatase 159 U/L (34-104) H 11/08/17 04:30 Ammonia 76 umol/L (16-53) H 11/08/17 04:30 Troponin I 0.03 ng/mL (0.01-0.05) 11/01/17 08:49 B-Natriuretic Peptide 39.7 pg/mL (5.0-100.0) 11/08/17 04:30 Total Protein 5.6 gm/dL (6.0-8.3) L 11/08/17 04:30 Albumin 2.8 gm/dL (4.2-5.5) L 11/08/17 04:30 Globulin 2.8 gm/dL 11/08/17 04:30 Albumin/Globulin Ratio 1.0 (1.0-1.8) 11/08/17 04:30 Prealbumin 30 mg/dL (10-36) 11/03/17 06:20 Triglycerides 196 mg/dL (<150) H 11/02/17 06:13 Cholesterol 158 mg/dL (<200) 11/03/17 06:20 Lipase 38 U/L (11-82) 11/01/17 08:49 TSH 12.56 uIU/ml (0.34-5.60) H 11/01/17 08:49 Urine Source RANDOM 11/01/17 09:20 Urine Color YELLOW 11/01/17 09:20 Urine Clarity HAZY (CLEAR) 11/01/17 09:20 Urine pH 5.5 (4.6 - 8.0) 11/01/17 09:20 Ur Specific [place] >= 1.030 (1.005-1.030) 11/01/17 09:20 Urine Protein 100 mg/dL (NEGATIVE) H 11/01/17 09:20 Urine Glucose (UA) NEGATIVE mg/dL (NEGATIVE) 11/01/17 09:20 Urine Ketones NEGATIVE mg/dL (NEGATIVE) 11/01/17 09:20 Urine Blood TRACE (NEGATIVE) 11/01/17 09:20 Urine Nitrate NEGATIVE (NEGATIVE) 11/01/17 09:20 Urine Bilirubin SMALL (NEGATIVE) H 11/01/17 09:20 Urine Urobilinogen 0.2 E.U./dL (0.2 - 1.0) 11/01/17 09:20 Ur Leukocyte Esterase SMALL (NEGATIVE) H 11/01/17 09:20 Urine RBC 0-2 /hpf (0-5) H 11/01/17 09:20 Urine WBC 50-100 /hpf (0-5) H 11/01/17 09:20 Ur Epithelial Cells MODERATE /lpf (FEW) 11/01/17 09:20 Urine Bacteria MODERATE /hpf (NONE SEEN) H 11/01/17 09:20 - Physical Exam Vitals and I&O: Vital Signs Temp 99 F 11/08/17 04:00 Pulse 76 11/08/17 07:10 Resp 18 11/08/17 07:10 BP 114/60 11/08/17 04:00 Pulse Ox 96 11/08/17 07:10 Intake & Output 11/07/17 11/08/17 11/08/17 18:59 06:59 18:59 Intake Total 9623.477 8675 Output Total 2049 2019 Balance -469.667 -840 Weight (lbs) 93.939 kg 93.894 kg Intake: Intake, IV Amount 540.333 360 D5-0.9%Ns 1,000 ml @ 20 430.333 mls/hr IV .Q24H [facility] Rx#: [id number] Levetiracetam 1,000 mg In 110 110 Sodium Chloride 0.9% 100 ml @ 200 mls/hr IV Q12H [facility] Rx#:[id number] Levofloxacin 750mg/150mL 150 750 mg In 150 ml @ 100 mls/hr IV Q24HR [facility] Rx#: [id number] Piperacillin Sodium/ 100 Tazobact 4.5 gm In Sodium Chloride 0.9% 100 ml @ 100 mls/hr IV Q8HR [facility] Rx #:[id number] Oral 0 Tube Feeding 720 720 TPN/PPN 320 Other 100 Output: Drainage 50 520 COLOST 500 Left Anterior Abdomen 50 20 Urine 1550 1500 Stool 450 Other: Stool Characteristics Liquid Liquid Weight Source Bedscale Bedscale Active Medications: Current Medications Acetaminophen (Tylenol) 650 mg PO Q6H PRN PRN Reason: PAIN OR FEVER >100 Acetaminophen/Hydrocodone Bitart (Carbon 5mg/325mg) 1 tab PO Q6H PRN PRN Reason: PAIN/DISCOMFORT Stop: 12/31/17 10:05 Albuterol Sulfate (Albuterol 2.5mg/3ml Neb Ud) 2.5 mg HHN Q4HRT PRN PRN Reason: Shortness of Breath Stop: 12/31/17 11:19 Benztropine Mesylate (Cogentin) 1 mg PO BID [facility] Stop: 12/31/17 16:59 Last Admin: 11/08/17 09:20 Dose: 1 mg Brimonidine Tartrate (Alphagan 0.2% Ophth Soln) 1 drop EACH EYE BID [facility] Stop: 12/31/17 16:59 Last Admin: 11/08/17 09:49 Dose: 1 drop Chlorhexidine Gluconate (Peridex) 15 ml MM DAILY [facility] Stop: 01/02/18 09:59 Last Admin: 11/08/17 09:49 Dose: 15 ml Clonazepam (Klonopin) 1 mg PO BID [facility] Stop: 12/31/17 16:59 Last Admin: 11/08/17 09:20 Dose: 1 mg Dorzolamide/Timolol (Cosopt Ophth Soln) 1 drop RIGHT EYE BID [facility] Stop: 12/31/17 16:59 Last Admin: 11/07/17 16:21 Dose: 1 drop Escitalopram Oxalate (Lexapro) 20 mg PO DAILY [facility] PRN Reason: Protocol Stop: 01/01/18 08:59 Last Admin: 11/08/17 09:20 Dose: 20 mg Fluticasone Propionate (Flonase) 2 spr NS DAILY [facility] Stop: 01/01/18 08:59 Last Admin: 11/08/17 09:48 Dose: 2 spr Hydrocortisone (Hydrocortisone 1%) 1 appl TP BID PRN PRN Reason: Rash Stop: 12/31/17 10:05 Dextrose/Sodium Chloride (D5-0.9%Ns) 1,000 mls @ 20 mls/hr IV .Q24H [facility] Stop: 01/02/18 15:59 Last Admin: 11/07/17 15:57 Dose: 20 mls/hr Levetiracetam 1,000 mg/ Sodium (Chloride) 110 mls @ 200 mls/hr IV Q12H [facility] Stop: 01/02/18 20:59 Last Admin: 11/08/17 09:21 Dose: 200 mls/hr Amphotericin B 50 mg/ Sterile (Water) 1,000 mls @ 100 mls/hr IR Q24H [facility] Stop: 11/09/17 17:59 Last Admin: 11/07/17 18:46 Dose: 100 mls/hr Levofloxacin (Levaquin Pb) 750 mg in 150 mls @ 100 mls/hr IV Q24HR [facility] Stop: 01/06/18 14:59 Last Infusion: 11/07/17 20:35 Dose: Infused Piperacillin Sod/Tazobactam (Sod 4.5 gm/ Sodium Chloride) 100 mls @ 100 mls/hr IV Q8HR [facility] Stop: 01/06/18 20:59 Last Admin: 11/08/17 05:00 Dose: 100 mls/hr Insulin Aspart (Novolog Insulin Sliding Scale) 0 units SUBQ Q6HR [facility] PRN Reason: Protocol Stop: 01/02/18 07:59 Last Admin: 11/08/17 07:55 Dose: Not Given Lamotrigine (Lamictal) 200 mg PO DAILY [facility] Stop: 01/01/18 08:59 Last Admin: 11/08/17 09:19 Dose: 200 mg Lamotrigine (Lamictal) 350 mg PO HS [facility] Stop: 12/31/17 20:59 Last Admin: 11/07/17 20:42 Dose: 350 mg Latanoprost (Xalatan 0.005% [facility] Soln) 1 drop EACH EYE HS [facility] Stop: 12/31/17 20:59 Last Admin: 11/07/17 20:42 Dose: 1 drop Levothyroxine Sodium (Synthroid) 0.125 mg PO DAILY [facility] Stop: 01/01/18 08:59 Last Admin: 11/07/17 09:20 Dose: 0.125 mg Methotrexate (Methotrexate) 10 mg PO Tu@0730 [facility] PRN Reason: Protocol Stop: 01/03/18 07:29 Last Admin: 11/04/17 07:42 Dose: Not Given Miconazole Nitrate (Micatin 2%) 1 appl TP BID [facility] Stop: 12/31/17 16:59 Last Admin: 11/07/17 16:21 Dose: 1 appl Pantoprazole Sodium (Protonix) 40 mg IVP BID [facility] Stop: 12/31/17 16:59 Last Admin: 11/08/17 09:20 Dose: 40 mg Patient Own Med Onfi (20mg Tablet) 1 PO BID [facility] Stop: 01/01/18 16:59 Last Admin: 11/07/17 16:22 Dose: Not Given Patient Own Med (Aptiom 600mg Tablet) 1 PO QPM [facility] Stop: 01/01/18 16:59 Last Admin: 11/07/17 16:22 Dose: Not Given Petrolatum (Vaseline Oint) 1 appl TP BID [facility] Stop: 12/31/17 16:59 Last Admin: 11/08/17 09:25 Dose: 1 appl Quetiapine Fumarate (Seroquel) 25 mg PO BID [facility] PRN Reason: Protocol Stop: 12/31/17 16:59 Last Admin: 11/08/17 09:20 Dose: 25 mg Rifaximin (Xifaxan) 600 mg PO BID [facility] Stop: 12/31/17 16:59 Last Admin: 11/08/17 09:20 Dose: 600 mg Sodium Chloride (Sabin Nasal [place]) 1 spr NS QID [facility] Stop: 12/31/17 12:59 Last Admin: 11/08/17 09:48 Dose: 1 spr - Procedures Procedures: Procedures Procedure Code Date BYPASS ILEUM TO CUTANEOUS, OPEN APPROACH [id number] 09/23/17 CHANGE FEEDING DEVICE IN UP INTEST TRACT, PRODUCT LISTER APPROACH [id number] 11/01/17 CHANGE GASTROSTOMY TUBE 30239 11/01/17 DRAINAGE OF SMALL INTESTINE, ENDO [id number] 11/01/17 EXPLORATION OF ABDOMEN 27416 11/01/17 FREEING OF BOWEL ADHESION 98413 11/01/17 ILEOSTOMY/JEJUNOSTOMY 31512 09/23/17 INSERTION OF ENDOTRACHEAL AIRWAY INTO TRACHEA, VIA OPENING [id number] 09/23/17 INSERTION OF FEEDING DEVICE INTO STOMACH, OPEN APPROACH [id number] 09/23/17 INTRODUCTION OF NUTRITIONAL INTO CENTRAL VEIN, PERC APPROACH [id number] 09/23/17 PARTIAL REMOVAL OF COLON 55053 09/23/[address] PL[address] GASTROSTOMY TUBE 64076 09/23/17 RELEASE PERITONEUM, OPEN APPROACH [id number] 09/23/17 RELEASE SMALL INTESTINE, OPEN APPROACH [id number] 11/01/17 REPAIR SMALL INTESTINE, OPEN APPROACH [id number] 11/01/17 RESECTION OF LARGE INTESTINE, OPEN APPROACH [id number] 09/23/17 RESPIRATORY VENTILATION, LESS THAN 24 CONSECUTIVE HOURS [id number] 09/23/17 SUTURE SMALL INTESTINE 16592 11/01/17 Assessment/Plan - Problem List Patient Problems: All Active Problems GASTRIC FEEDING TUBE DISLODGED (Acute) Nutritional Asmnt/Malnutr-PDOC - Dietary Evaluation Malnutrition Findings (Please click <Entered> for more info): Nutritional Asmnt/Malnutrition Start: 11/03/17 14: 15 Text: Status: Complete Freq: Document 11/03/17 14:15 RUIG (Rec: 11/03/17 14:45 [id number] [email or web address]) Nutritional Asmnt/Malnutrition Patient General Information Nutritional Screening High Risk Consult Diagnosis UTI Pertinent Medical Hx/Surgical Hx MR, cerebral palsy, seizure, colectomy, generalized contractures, ileostomy Subjective Information Consult received for freddy cox. Pt had gtube replacement this morning. Pt now on TPN. May start tube feeding if small bowel series does not show bowel obstruction per MD note. Current Diet Order/ Nutrition Support TPN D10% A4.25%, lipid 20% 150ml at 50ml/hr providing 912kcal, 51g protein Pertinent Medications D5-0.9%ns, novolog, synthroid, k phos Pertinent Labs 11/03 cl 113, Bun 45, glucose 100, POC 92 Nutritional Hx/Data Height 1.78 m Height (Calculated Centimeters) 177.8 Current Weight (lbs) 68.492 kg Weight (Calculated Kilograms) 68.5 Weight (Calculated Grams) 92904.4 [place] Body Weight 166 Body Mass Index (BMI) 21.7 Weight Status Approriate GI Symptoms GI Symptoms None Last BM 0 Difficult in: None Skin Integrity/Comment: rash to right and left foot, scar to abdomen Current %PO Good (75-100%) Estimated Nutritional Goals BEE in Kcals: Using Current wt Calories/Kcals/Kg 23-27 Kcals Calculated 5954-6176 Protein: Using Current wt Protein g/k-1.1 Protein Calculated 69-76 Fluid: ml 1587-1863ml 91ml/kcal) Nutritional Problem No current Nutrition Prob Problem altered GI function Etiology possible small bowel obstruction Signs/Symptoms: pt on TPN Malnutrition Alert Protein-Calorie Malnutrition N/A Is there a minimum of two criteria No selected? Query Text:Check all the applicable criteria. A minimum of two criteria are recommended for diagnosis of either severe or non-severe malnutrition. Intervention/Recommendation Comments 1. If continue with TPN, recommend D12%, AA4%, lipid 20 % 200ml at 80ml/hr. it provides 1555kcal, 250CHO (2. 5mg/kg/min), 76g protein. 2. If TF needed, recommend Fibersource HN starting at 20ml/hr for first 24hr. If tolerated, increase to goal rate of 55ml and wean TPN. 3. Monitor nutrition support, wt, skin integrity and labs 3. F/U as high risk in 2-3 days, 5/2-5/ Expected Outcomes/Goals Expected Outcomes/Goals 1. Pt to meet at least 75% of nutritional needs via nutrition support with tolerance 2. Wt stability, skin to remain intact, labs to approach WNL.
[2017-11-08] MEDS: ONFI 20 MG PO SCH ×2 (10:04→18:17)
[2017-11-08] MEDS: Miconazole Nitrate 2% Cream 30gm TP SCH ×2 (10:05→18:19)
[2017-11-08] MEDS: Levothyroxine 0.125 Mg Tab PO SCH (10:05)
--- NOTE | 2017-11-08 13:48 | Internal Medicine Prog Note ---
Internal Medicine Subjective - Subjective Service Date: 11/08/17 Patient is:: awake Patient Complaints of:: vomitting Per staff patient has:: poor appetite, tolerating meds Internal Medicine Objective - Results Result Diagrams: 11/08/17 04:30 11/08/17 04:30 Recent Labs: Laboratory Last Values WBC 17.4 Th/cmm (4.8-10.8) H D 11/08/17 04:30 RBC 3.42 Mil/cmm (4.30-5.70) L 11/08/17 04:30 Hgb 11.3 gm/dL (12-16) L 11/08/17 04:30 Hct 32.7 % (41.0-60) L 11/08/17 04:30 MCV 95.8 fl (80-99) 11/08/17 04:30 MCH 32.9 pg (26.0-30.0) H 11/08/17 04:30 MCHC Differential 34.4 pg (28.0-36.0) 11/08/17 04:30 RDW 15.0 % (11.5-20.0) 11/08/17 04:30 Plt Count 407 Th/cmm (150-400) H D 11/08/17 04:30 MPV 8.6 fl 11/08/17 04:30 Neutrophils % 72.5 % (40.0-80.0) 11/08/17 04:30 Band Neutrophils % 3 % (0-10) 11/07/17 04:45 Lymphocytes % 8.4 % (20.0-50.0) L 11/08/17 04:30 Monocytes % 13.2 % (2.0-10.0) H 11/08/17 04:30 Eosinophils % 5.5 % (0.0-5.0) H 11/08/17 04:30 Basophils % 0.4 % (0.0-2.0) 11/08/17 04:30 Neutrophils (Manual) 74 % (40-80) 11/07/17 04:45 Lymphocytes 16 % (20-50) L 11/07/17 04:45 Monocytes 4 % (2-10) 11/07/17 04:45 Eosinophils 3 % (0-5) 11/07/17 04:45 Platelet Estimate ADEQUATE (NORMAL) 11/06/17 05:45 PT 10.4 SECONDS (9.5-11.5) 11/04/17 05:40 INR 1.00 (0.5-1.4) 11/04/17 05:40 PTT (Actin FS) 22.4 SECONDS (26.0-38.0) L 11/04/17 05:40 Sodium 140 mEq/L (136-145) 11/08/17 04:30 Potassium 4.1 mEq/L (3.5-5.1) 11/08/17 04:30 Chloride 112 mEq/L (98-107) H 11/08/17 04:30 Carbon Dioxide 21.4 mEq/L (21.0-31.0) 11/08/17 04:30 Anion Gap 10.7 (7.0-16.0) 11/08/17 04:30 BUN 33 mg/dL (7-25) H 11/08/17 04:30 Creatinine 1.1 mg/dL (0.7-1.3) 11/08/17 04:30 Est GFR ( Amer) > 60.0 ml/min (>90) 11/08/17 04:30 Est GFR (Non-Af Amer) > 60.0 ml/min 11/08/17 04:30 BUN/Creatinine Ratio 30.0 11/08/17 04:30 Glucose 110 mg/dL (70-105) H 11/08/17 04:30 POC Glucose 97 MG/DL (70 - 105) 11/08/17 13:12 Whole Bld Lactic Acid 1.20 mmol/L (0.60-1.99) 11/01/17 08:49 Calcium 8.3 mg/dL (8.6-10.3) L 11/08/17 04:30 Phosphorus 2.3 mg/dL (2.5-5.0) L 11/06/17 05:45 Magnesium 1.8 mg/dL (1.9-2.7) L 11/08/17 04:30 Total Bilirubin 0.6 mg/dL (0.3-1.0) 11/08/17 04:30 AST 18 U/L (13-39) 11/08/17 04:30 ALT 24 U/L (7-52) 11/08/17 04:30 Alkaline Phosphatase 159 U/L (34-104) H 11/08/17 04:30 Ammonia 76 umol/L (16-53) H 11/08/17 04:30 Troponin I 0.03 ng/mL (0.01-0.05) 11/01/17 08:49 B-Natriuretic Peptide 39.7 pg/mL (5.0-100.0) 11/08/17 04:30 Total Protein 5.6 gm/dL (6.0-8.3) L 11/08/17 04:30 Albumin 2.8 gm/dL (4.2-5.5) L 11/08/17 04:30 Globulin 2.8 gm/dL 11/08/17 04:30 Albumin/Globulin Ratio 1.0 (1.0-1.8) 11/08/17 04:30 Prealbumin 30 mg/dL (10-36) 11/03/17 06:20 Triglycerides 196 mg/dL (<150) H 11/02/17 06:13 Cholesterol 158 mg/dL (<200) 11/03/17 06:20 Lipase 38 U/L (11-82) 11/01/17 08:49 TSH 12.56 uIU/ml (0.34-5.60) H 11/01/17 08:49 Urine Source RANDOM 11/01/17 09:20 Urine Color YELLOW 11/01/17 09:20 Urine Clarity HAZY (CLEAR) 11/01/17 09:20 Urine pH 5.5 (4.6 - 8.0) 11/01/17 09:20 Ur Specific [place] >= 1.030 (1.005-1.030) 11/01/17 09:20 Urine Protein 100 mg/dL (NEGATIVE) H 11/01/17 09:20 Urine Glucose (UA) NEGATIVE mg/dL (NEGATIVE) 11/01/17 09:20 Urine Ketones NEGATIVE mg/dL (NEGATIVE) 11/01/17 09:20 Urine Blood TRACE (NEGATIVE) 11/01/17 09:20 Urine Nitrate NEGATIVE (NEGATIVE) 11/01/17 09:20 Urine Bilirubin SMALL (NEGATIVE) H 11/01/17 09:20 Urine Urobilinogen 0.2 E.U./dL (0.2 - 1.0) 11/01/17 09:20 Ur Leukocyte Esterase SMALL (NEGATIVE) H 04/28/18 09:20 Urine RBC 0-2 /hpf (0-5) H 11/01/17 09:20 Urine WBC 50-100 /hpf (0-5) H 11/01/17 09:20 Ur Epithelial Cells MODERATE /lpf (FEW) 11/01/17 09:20 Urine Bacteria MODERATE /hpf (NONE SEEN) H 11/01/17 09:20 - Physical Exam Vitals and I&O: Vital Signs Temp 98.5 F 11/08/17 12:00 Pulse 80 11/08/17 12:00 Resp 18 11/08/17 12:00 BP 95/45 11/08/17 12:00 Pulse Ox 97 11/08/17 12:00 Intake & Output 11/07/17 11/08/17 11/08/17 18:59 06:59 18:59 Intake Total 9594.441 6188 Output Total 2049 2019 20 Balance -469.667 -740 -20 Weight (lbs) 207 lb 1.6 oz 207 lb 207 lb Intake: Intake, IV Amount 540.333 460 D5-0.9%Ns 1,000 ml @ 20 430.333 mls/hr IV .Q24H [facility] Rx#: [id number] Levetiracetam 1,000 mg In 110 110 Sodium Chloride 0.9% 100 ml @ 200 mls/hr IV Q12H [facility] Rx#:[id number] Levofloxacin 750mg/150mL 150 750 mg In 150 ml @ 100 mls/hr IV Q24HR [facility] Rx#: [id number] Piperacillin Sodium/ 200 Tazobact 4.5 gm In Sodium Chloride 0.9% 100 ml @ 100 mls/hr IV Q8HR [facility] Rx #:[id number] Oral 0 Tube Feeding 720 720 TPN/PPN 320 Other 100 Output: Drainage 50 520 20 COLOST 500 Left Anterior Abdomen 50 20 20 Urine 1550 1500 Stool 450 Other: Stool Characteristics Liquid Liquid Liquid Weight Source Bedscale Bedscale Bedscale Active Medications: Current Medications Acetaminophen (Tylenol) 650 mg PO Q6H PRN PRN Reason: PAIN OR FEVER >100 Acetaminophen/Hydrocodone Bitart ([place] 5mg/325mg) 1 tab PO Q6H PRN PRN Reason: PAIN/DISCOMFORT Stop: 12/31/17 10:05 Albuterol Sulfate (Albuterol 2.5mg/3ml Neb Ud) 2.5 mg HHN Q4HRT PRN PRN Reason: Shortness of Breath Stop: 12/31/17 11:19 Benztropine Mesylate (Cogentin) 1 mg PO BID [facility] Stop: 12/31/17 16:59 Last Admin: 11/08/17 09:20 Dose: 1 mg Brimonidine Tartrate (Alphagan 0.2% Ophth Soln) 1 drop EACH EYE BID [facility] Stop: 12/31/17 16:59 Last Admin: 11/08/17 09:49 Dose: 1 drop Chlorhexidine Gluconate (Peridex) 15 ml MM DAILY [facility] Stop: 01/02/18 09:59 Last Admin: 11/08/17 09:49 Dose: 15 ml Clonazepam (Klonopin) 1 mg PO BID [facility] Stop: 12/31/17 16:59 Last Admin: 11/08/17 09:20 Dose: 1 mg Dorzolamide/Timolol (Cosopt Ophth Soln) 1 drop RIGHT EYE BID [facility] Stop: 12/31/17 16:59 Last Admin: 11/08/17 10:04 Dose: 1 drop Escitalopram Oxalate (Lexapro) 20 mg PO DAILY [facility] PRN Reason: Protocol Stop: 01/01/18 08:59 Last Admin: 11/08/17 09:20 Dose: 20 mg Fluticasone Propionate (Flonase) 2 spr NS DAILY [facility] Stop: 01/01/18 08:59 Last Admin: 11/08/17 09:48 Dose: 2 spr Hydrocortisone (Hydrocortisone 1%) 1 appl TP BID PRN PRN Reason: Rash Stop: 12/31/17 10:05 Last Admin: 11/08/17 10:04 Dose: 1 appl Dextrose/Sodium Chloride (D5-0.9%Ns) 1,000 mls @ 20 mls/hr IV .Q24H [facility] Stop: 01/02/18 15:59 Last Admin: 11/07/17 15:57 Dose: 20 mls/hr Levetiracetam 1,000 mg/ Sodium (Chloride) 110 mls @ 200 mls/hr IV Q12H [facility] Stop: 01/02/18 20:59 Last Admin: 11/08/17 09:21 Dose: 200 mls/hr Amphotericin B 50 mg/ Sterile (Water) 1,000 mls @ 100 mls/hr IR Q24H [facility] Stop: 11/09/17 17:59 Last Admin: 11/07/17 18:46 Dose: 100 mls/hr Levofloxacin (Levaquin Pb) 750 mg in 150 mls @ 100 mls/hr IV Q24HR [facility] Stop: 01/06/18 14:59 Last Infusion: 11/07/17 20:35 Dose: Infused Piperacillin Sod/Tazobactam (Sod 4.5 gm/ Sodium Chloride) 100 mls @ 100 mls/hr IV Q8HR [facility] Stop: 01/06/18 20:59 Last Admin: 11/08/17 13:13 Dose: 100 mls/hr Insulin Aspart (Novolog Insulin Sliding Scale) 0 units SUBQ Q6HR [facility] PRN Reason: Protocol Stop: 01/02/18 07:59 Last Admin: 11/08/17 13:14 Dose: Not Given Lamotrigine (Lamictal) 200 mg PO DAILY [facility] Stop: 01/01/18 08:59 Last Admin: 11/08/17 09:19 Dose: 200 mg Lamotrigine (Lamictal) 350 mg PO HS [facility] Stop: 12/31/17 20:59 Last Admin: 11/07/17 20:42 Dose: 350 mg Latanoprost (Xalatan 0.005% [facility] Soln) 1 drop EACH EYE HS [facility] Stop: 12/31/17 20:59 Last Admin: 11/07/17 20:42 Dose: 1 drop Levothyroxine Sodium (Synthroid) 0.125 mg PO DAILY [facility] Stop: 01/01/18 08:59 Last Admin: 11/08/17 10:05 Dose: 0.125 mg Methotrexate (Methotrexate) 10 mg PO Tu@0730 [facility] PRN Reason: Protocol Stop: 01/03/18 07:29 Last Admin: 11/04/17 07:42 Dose: Not Given Miconazole Nitrate (Micatin 2%) 1 appl TP BID [facility] Stop: 12/31/17 16:59 Last Admin: 11/08/17 10:05 Dose: 1 appl Pantoprazole Sodium (Protonix) 40 mg IVP BID [facility] Stop: 12/31/17 16:59 Last Admin: 11/08/17 09:20 Dose: 40 mg Patient Own Med Onfi (20mg Tablet) 1 PO BID [facility] Stop: 01/01/18 16:59 Last Admin: 11/08/17 10:04 Dose: 1 Patient Own Med (Aptiom 600mg Tablet) 1 PO QPM [facility] Stop: 01/01/18 16:59 Last Admin: 11/07/17 16:22 Dose: Not Given Petrolatum (Vaseline Oint) 1 appl TP BID [facility] Stop: 12/31/17 16:59 Last Admin: 11/08/17 09:25 Dose: 1 appl Quetiapine Fumarate (Seroquel) 25 mg PO BID [facility] PRN Reason: Protocol Stop: 12/31/17 16:59 Last Admin: 11/08/17 09:20 Dose: 25 mg Rifaximin (Xifaxan) 600 mg PO BID [facility] Stop: 12/31/17 16:59 Last Admin: 11/08/17 09:20 Dose: 600 mg Sodium Chloride ([place] Nasal [place]) 1 spr NS QID [facility] Stop: 12/31/17 12:59 Last Admin: 11/08/17 13:14 Dose: 1 spr General: weak HEENT: NC/AT, PERRLA Neck: Supple Lungs: CTAB Cardiovascular: RRR, Normal S1, Normal S2, without murmur Abdomen: soft, +GT, positive bowel sound Extremities: excoriation - Procedures Procedures: Procedures Procedure Code Date BYPASS ILEUM TO CUTANEOUS, OPEN APPROACH [id number] 09/23/17 CHANGE FEEDING DEVICE IN UP INTEST TRACT, CURING PRESS MAINTAINER APPROACH [id number] 11/01/17 CHANGE GASTROSTOMY TUBE 62283 11/01/17 DRAINAGE OF SMALL INTESTINE, ENDO [id number] 11/01/17 EXPLORATION OF ABDOMEN 59066 11/01/17 FREEING OF BOWEL ADHESION 81157 11/01/17 ILEOSTOMY/JEJUNOSTOMY 77186 09/23/17 INSERTION OF ENDOTRACHEAL AIRWAY INTO TRACHEA, VIA OPENING [id number] 09/23/17 INSERTION OF FEEDING DEVICE INTO STOMACH, OPEN APPROACH [id number] 09/23/17 INTRODUCTION OF NUTRITIONAL INTO CENTRAL VEIN, PERC APPROACH [id number] 09/23/17 PARTIAL REMOVAL OF COLON 85914 09/23/[address] PL[address] GASTROSTOMY TUBE 62018 09/23/17 RELEASE PERITONEUM, OPEN APPROACH [id number] 09/23/17 RELEASE SMALL INTESTINE, OPEN APPROACH [id number] 11/01/17 REPAIR SMALL INTESTINE, OPEN APPROACH [id number] 11/01/17 RESECTION OF LARGE INTESTINE, OPEN APPROACH [id number] 09/23/17 RESPIRATORY VENTILATION, LESS THAN 24 CONSECUTIVE HOURS [id number] 09/23/17 SUTURE SMALL INTESTINE 43320 11/01/17 Internal Medicine Assmt/Plan - Assessment Assessment: s/p peg placement sepsis intractable vomiting small bowel obstruction acute renal insufficiency acute uti mr cp seizures generalized contractures - Plan Plan: CONTINUE WITH PPN FOR NUTRITIONAL SUPPORT MONITOR LYTES CONTINUE CURRENT PLAN OF CARE Nutritional Asmnt/Malnutr-PDOC - Dietary Evaluation Malnutrition Findings (Please click <Entered> for more info): Nutritional Asmnt/Malnutrition Start: 11/03/17 14: 15 Text: Status: Complete Freq: Document 11/03/17 14:15 LCHENG (Rec: 11/03/17 14:45 LCHENG [email or web address]) Nutritional Asmnt/Malnutrition Patient General Information Nutritional Screening High Risk Consult Diagnosis UTI Pertinent Medical Hx/Surgical Hx MR, cerebral palsy, seizure, colectomy, generalized contractures, ileostomy Subjective Information Consult received for freddy cox. Pt had gtube replacement this morning. Pt now on TPN. May start tube feeding if small bowel series does not show bowel obstruction per MD note. Current Diet Order/ Nutrition Support TPN D10% A4.25%, lipid 20% 150ml at 50ml/hr providing 912kcal, 51g protein Pertinent Medications D5-0.9%ns, novolog, synthroid, k phos Pertinent Labs 11/03 cl 113, Bun 45, glucose 100, POC 92 Nutritional Hx/Data Height 5 ft 10 in Height (Calculated Centimeters) 177.8 Current Weight (lbs) 151 lb Weight (Calculated Kilograms) 68.5 Weight (Calculated Grams) 43005.4 [place] Body Weight 166 Body Mass Index (BMI) 21.7 Weight Status Approriate GI Symptoms GI Symptoms None Last BM 0 Difficult in: None Skin Integrity/Comment: rash to right and left foot, scar to abdomen Current %PO Good (75-100%) Estimated Nutritional Goals BEE in Kcals: Using Current wt Calories/Kcals/Kg 23-27 Kcals Calculated 6586-0167 Protein: Using Current wt Protein g/k-1.1 Protein Calculated 69-76 Fluid: ml 1587-1863ml 91ml/kcal) Nutritional Problem No current Nutrition Prob Problem altered GI function Etiology possible small bowel obstruction Signs/Symptoms: pt on TPN Malnutrition Alert Protein-Calorie Malnutrition N/A Is there a minimum of two criteria No selected? Query Text:Check all the applicable criteria. A minimum of two criteria are recommended for diagnosis of either severe or non-severe malnutrition. Intervention/Recommendation Comments 1. If continue with TPN, recommend D12%, AA4%, lipid 20 % 200ml at 80ml/hr. it provides 1555kcal, 250CHO (2. 5mg/kg/min), 76g protein. 2. If TF needed, recommend Fibersource HN starting at 20ml/hr for first 24hr. If tolerated, increase to goal rate of 55ml and wean TPN. 3. Monitor nutrition support, wt, skin integrity and labs 3. F/U as high risk in 2-3 days, 5/2-5/3 Expected Outcomes/Goals Expected Outcomes/Goals 1. Pt to meet at least 75% of nutritional needs via nutrition support with tolerance 2. Wt stability, skin to remain intact, labs to approach WNL.
--- NOTE | 2017-11-08 14:42 | Infectious Disease Prog Note ---
Infectious Disease Subjective - Review of Systems Service Date: 11/08/17 Subjective: no fever. Infectious Disease Objective - Results Result Diagrams: 11/08/17 04:30 11/08/17 04:30 Recent Labs: Laboratory Last Values WBC 17.4 Th/cmm (4.8-10.8) H D 11/08/17 04:30 RBC 3.42 Mil/cmm (4.30-5.70) L 11/08/17 04:30 Hgb 11.3 gm/dL (12-16) L 11/08/17 04:30 Hct 32.7 % (41.0-60) L 11/08/17 04:30 MCV 95.8 fl (80-99) 11/08/17 04:30 MCH 32.9 pg (26.0-30.0) H 11/08/17 04:30 MCHC Differential 34.4 pg (28.0-36.0) 11/08/17 04:30 RDW 15.0 % (11.5-20.0) 11/08/17 04:30 Plt Count 407 Th/cmm (150-400) H D 11/08/17 04:30 MPV 8.6 fl 11/08/17 04:30 Neutrophils % 72.5 % (40.0-80.0) 11/08/17 04:30 Band Neutrophils % 3 % (0-10) 11/07/17 04:45 Lymphocytes % 8.4 % (20.0-50.0) L 11/08/17 04:30 Monocytes % 13.2 % (2.0-10.0) H 11/08/17 04:30 Eosinophils % 5.5 % (0.0-5.0) H 11/08/17 04:30 Basophils % 0.4 % (0.0-2.0) 11/08/17 04:30 Neutrophils (Manual) 74 % (40-80) 11/07/17 04:45 Lymphocytes 16 % (20-50) L 11/07/17 04:45 Monocytes 4 % (2-10) 11/07/17 04:45 Eosinophils 3 % (0-5) 11/07/17 04:45 Platelet Estimate ADEQUATE (NORMAL) 11/06/17 05:45 PT 10.4 SECONDS (9.5-11.5) 11/04/17 05:40 INR 1.00 (0.5-1.4) 11/04/17 05:40 PTT (Actin FS) 22.4 SECONDS (26.0-38.0) L 11/04/17 05:40 Sodium 140 mEq/L (136-145) 11/08/17 04:30 Potassium 4.1 mEq/L (3.5-5.1) 11/08/17 04:30 Chloride 112 mEq/L (98-107) H 11/08/17 04:30 Carbon Dioxide 21.4 mEq/L (21.0-31.0) 11/08/17 04:30 Anion Gap 10.7 (7.0-16.0) 11/08/17 04:30 BUN 33 mg/dL (7-25) H 11/08/17 04:30 Creatinine 1.1 mg/dL (0.7-1.3) 11/08/17 04:30 Est GFR ( Amer) > 60.0 ml/min (>90) 11/08/17 04:30 Est GFR (Non-Af Amer) > 60.0 ml/min 11/08/17 04:30 BUN/Creatinine Ratio 30.0 11/08/17 04:30 Glucose 110 mg/dL (70-105) H 11/08/17 04:30 POC Glucose 97 MG/DL (70 - 105) 11/08/17 13:12 Whole Bld Lactic Acid 1.20 mmol/L (0.60-1.99) 11/01/17 08:49 Calcium 8.3 mg/dL (8.6-10.3) L 11/08/17 04:30 Phosphorus 2.3 mg/dL (2.5-5.0) L 11/06/17 05:45 Magnesium 1.8 mg/dL (1.9-2.7) L 11/08/17 04:30 Total Bilirubin 0.6 mg/dL (0.3-1.0) 11/08/17 04:30 AST 18 U/L (13-39) 11/08/17 04:30 ALT 24 U/L (7-52) 11/08/17 04:30 Alkaline Phosphatase 159 U/L (34-104) H 11/08/17 04:30 Ammonia 76 umol/L (16-53) H 11/08/17 04:30 Troponin I 0.03 ng/mL (0.01-0.05) 11/01/17 08:49 B-Natriuretic Peptide 39.7 pg/mL (5.0-100.0) 11/08/17 04:30 Total Protein 5.6 gm/dL (6.0-8.3) L 11/08/17 04:30 Albumin 2.8 gm/dL (4.2-5.5) L 11/08/17 04:30 Globulin 2.8 gm/dL 11/08/17 04:30 Albumin/Globulin Ratio 1.0 (1.0-1.8) 11/08/17 04:30 Prealbumin 30 mg/dL (10-36) 11/03/17 06:20 Triglycerides 196 mg/dL (<150) H 11/02/17 06:13 Cholesterol 158 mg/dL (<200) 11/03/17 06:20 Lipase 38 U/L (11-82) 11/01/17 08:49 TSH 12.56 uIU/ml (0.34-5.60) H 11/01/17 08:49 Urine Source RANDOM 11/01/17 09:20 Urine Color YELLOW 11/01/17 09:20 Urine Clarity HAZY (CLEAR) 11/01/17 09:20 Urine pH 5.5 (4.6 - 8.0) 11/01/17 09:20 Ur Specific [place] >= 1.030 (1.005-1.030) 11/01/17 09:20 Urine Protein 100 mg/dL (NEGATIVE) H 11/01/17 09:20 Urine Glucose (UA) NEGATIVE mg/dL (NEGATIVE) 11/01/17 09:20 Urine Ketones NEGATIVE mg/dL (NEGATIVE) 11/01/17 09:20 Urine Blood TRACE (NEGATIVE) 11/01/17 09:20 Urine Nitrate NEGATIVE (NEGATIVE) 11/01/17 09:20 Urine Bilirubin SMALL (NEGATIVE) H 11/01/17 09:20 Urine Urobilinogen 0.2 E.U./dL (0.2 - 1.0) 11/01/17 09:20 Ur Leukocyte Esterase SMALL (NEGATIVE) H 11/01/17 09:20 Urine RBC 0-2 /hpf (0-5) H 11/01/17 09:20 Urine WBC 50-100 /hpf (0-5) H 11/01/17 09:20 Ur Epithelial Cells MODERATE /lpf (FEW) 11/01/17 09:20 Urine Bacteria MODERATE /hpf (NONE SEEN) H 11/01/17 09:20 - Physical Exam Vitals and I&O: Vital Signs Temp 98.5 F 11/08/17 12:00 Pulse 80 11/08/17 12:00 Resp 18 11/08/17 12:00 BP 95/45 11/08/17 12:00 Pulse Ox 97 11/08/17 12:00 Intake & Output 11/07/17 11/08/17 11/08/17 18:59 06:59 18:59 Intake Total 0110.905 4824 Output Total 2049 2020 20 Balance -469.667 -740 -20 Weight (lbs) 93.939 kg 93.894 kg 93.894 kg Intake: Intake, IV Amount 540.333 460 D5-0.9%Ns 1,000 ml @ 20 430.333 mls/hr IV .Q24H [facility] Rx#: [id number] Levetiracetam 1,000 mg In 110 110 Sodium Chloride 0.9% 100 ml @ 200 mls/hr IV Q12H [facility] Rx#:[id number] Levofloxacin 750mg/150mL 150 750 mg In 150 ml @ 100 mls/hr IV Q24HR [facility] Rx#: [id number] Piperacillin Sodium/ 200 Tazobact 4.5 gm In Sodium Chloride 0.9% 100 ml @ 100 mls/hr IV Q8HR [facility] Rx #:[id number] Oral 0 Tube Feeding 720 720 TPN/PPN 320 Other 100 Output: Drainage 50 520 20 COLOST 500 Left Anterior Abdomen 50 20 20 Urine 1550 1500 Stool 450 Other: Stool Characteristics Liquid Liquid Liquid Weight Source Bedscale Bedscale Bedscale Active Medications: Current Medications Acetaminophen (Tylenol) 650 mg PO Q6H PRN PRN Reason: PAIN OR FEVER >100 Acetaminophen/Hydrocodone Bitart ([place] 5mg/325mg) 1 tab PO Q6H PRN PRN Reason: PAIN/DISCOMFORT Stop: 12/31/17 10:05 Albuterol Sulfate (Albuterol 2.5mg/3ml Neb Ud) 2.5 mg HHN Q4HRT PRN PRN Reason: Shortness of Breath Stop: 12/31/17 11:19 Benztropine Mesylate (Cogentin) 1 mg PO BID [facility] Stop: 12/31/17 16:59 Last Admin: 11/08/17 09:20 Dose: 1 mg Brimonidine Tartrate (Alphagan 0.2% Ophth Soln) 1 drop EACH EYE BID [facility] Stop: 12/31/17 16:59 Last Admin: 11/08/17 09:49 Dose: 1 drop Chlorhexidine Gluconate (Peridex) 15 ml MM DAILY [facility] Stop: 01/02/18 09:59 Last Admin: 11/08/17 09:49 Dose: 15 ml Clonazepam (Klonopin) 1 mg PO BID [facility] Stop: 12/31/17 16:59 Last Admin: 11/08/17 09:20 Dose: 1 mg Dorzolamide/Timolol (Cosopt Ophth Soln) 1 drop RIGHT EYE BID [facility] Stop: 12/31/17 16:59 Last Admin: 11/08/17 10:04 Dose: 1 drop Escitalopram Oxalate (Lexapro) 20 mg PO DAILY [facility] PRN Reason: Protocol Stop: 01/01/18 08:59 Last Admin: 11/08/17 09:20 Dose: 20 mg Fluticasone Propionate (Flonase) 2 spr NS DAILY [facility] Stop: 01/01/18 08:59 Last Admin: 11/08/17 09:48 Dose: 2 spr Hydrocortisone (Hydrocortisone 1%) 1 appl TP BID PRN PRN Reason: Rash Stop: 12/31/17 10:05 Last Admin: 11/08/17 10:04 Dose: 1 appl Dextrose/Sodium Chloride (D5-0.9%Ns) 1,000 mls @ 20 mls/hr IV .Q24H [facility] Stop: 01/02/18 15:59 Last Admin: 11/07/17 15:57 Dose: 20 mls/hr Levetiracetam 1,000 mg/ Sodium (Chloride) 110 mls @ 200 mls/hr IV Q12H [facility] Stop: 01/02/18 20:59 Last Admin: 11/08/17 09:21 Dose: 200 mls/hr Amphotericin B 50 mg/ Sterile (Water) 1,000 mls @ 100 mls/hr IR Q24H [facility] Stop: 11/09/17 17:59 Last Admin: 11/07/17 18:46 Dose: 100 mls/hr Levofloxacin (Levaquin Pb) 750 mg in 150 mls @ 100 mls/hr IV Q24HR [facility] Stop: 01/06/18 14:59 Last Infusion: 11/07/17 20:35 Dose: Infused Piperacillin Sod/Tazobactam (Sod 4.5 gm/ Sodium Chloride) 100 mls @ 100 mls/hr IV Q8HR [facility] Stop: 01/06/18 20:59 Last Admin: 11/08/17 13:13 Dose: 100 mls/hr Insulin Aspart (Novolog Insulin Sliding Scale) 0 units SUBQ Q6HR [facility] PRN Reason: Protocol Stop: 01/02/18 07:59 Last Admin: 11/08/17 13:14 Dose: Not Given Lamotrigine (Lamictal) 200 mg PO DAILY [facility] Stop: 01/01/18 08:59 Last Admin: 11/08/17 09:19 Dose: 200 mg Lamotrigine (Lamictal) 350 mg PO HS [facility] Stop: 12/31/17 20:59 Last Admin: 11/07/17 20:42 Dose: 350 mg Latanoprost (Xalatan 0.005% [facility] Soln) 1 drop EACH EYE HS [facility] Stop: 12/31/17 20:59 Last Admin: 11/07/17 20:42 Dose: 1 drop Levothyroxine Sodium (Synthroid) 0.125 mg PO DAILY [facility] Stop: 01/01/18 08:59 Last Admin: 11/08/17 10:05 Dose: 0.125 mg Methotrexate (Methotrexate) 10 mg PO Tu@0730 [facility] PRN Reason: Protocol Stop: 01/03/18 07:29 Last Admin: 11/04/17 07:42 Dose: Not Given Miconazole Nitrate (Micatin 2%) 1 appl TP BID [facility] Stop: 12/31/17 16:59 Last Admin: 11/08/17 10:05 Dose: 1 appl Pantoprazole Sodium (Protonix) 40 mg IVP BID [facility] Stop: 12/31/17 16:59 Last Admin: 11/08/17 09:20 Dose: 40 mg Patient Own Med Onfi (20mg Tablet) 1 PO BID [facility] Stop: 01/01/18 16:59 Last Admin: 11/08/17 10:04 Dose: 1 Patient Own Med (Aptiom 600mg Tablet) 1 PO QPM [facility] Stop: 01/01/18 16:59 Last Admin: 11/07/17 16:22 Dose: Not Given Petrolatum (Vaseline Oint) 1 appl TP BID [facility] Stop: 12/31/17 16:59 Last Admin: 11/08/17 09:25 Dose: 1 appl Quetiapine Fumarate (Seroquel) 25 mg PO BID [facility] PRN Reason: Protocol Stop: 12/31/17 16:59 Last Admin: 11/08/17 09:20 Dose: 25 mg Rifaximin (Xifaxan) 600 mg PO BID [facility] Stop: 12/31/17 16:59 Last Admin: 11/08/17 09:20 Dose: 600 mg Sodium Chloride (Bates Nasal [place]) 1 spr NS QID [facility] Stop: 12/31/17 12:59 Last Admin: 11/08/17 13:14 Dose: 1 spr General: no acute distress, well developed, well nourished HEENT: atraumatic, normocephalic, PERRLA Neck: supple, no thyromegaly, no lymphadenopathy Cardiovascular: S1S2, regular Lungs: no clear to auscultation bilaterally, no clear to percussion Abdomen: soft, drain (jpx1 ) Extremities: no cyanosis, no clubbing, no edema Neurological: other (mentally challenged.) - Procedures Procedures: Procedures Procedure Code Date BYPASS ILEUM TO CUTANEOUS, OPEN APPROACH [id number] 09/23/17 CHANGE FEEDING DEVICE IN UP INTEST TRACT, RAILROAD SURVEYOR APPROACH [id number] 11/01/17 CHANGE GASTROSTOMY TUBE 87253 11/01/17 DRAINAGE OF SMALL INTESTINE, ENDO [id number] 11/01/17 EXPLORATION OF ABDOMEN 52496 11/01/17 FREEING OF BOWEL ADHESION 98879 11/01/17 ILEOSTOMY/JEJUNOSTOMY 66010 09/23/17 INSERTION OF ENDOTRACHEAL AIRWAY INTO TRACHEA, VIA OPENING [id number] 09/23/17 INSERTION OF FEEDING DEVICE INTO STOMACH, OPEN APPROACH [id number] 09/23/17 INTRODUCTION OF NUTRITIONAL INTO CENTRAL VEIN, PERC APPROACH [id number] 09/23/17 PARTIAL REMOVAL OF COLON 00534 09/23/17 PLACE GASTROSTOMY TUBE 02025 09/23/17 RELEASE PERITONEUM, OPEN APPROACH [id number] 09/23/17 RELEASE SMALL INTESTINE, OPEN APPROACH [id number] 11/01/17 REPAIR SMALL INTESTINE, OPEN APPROACH [id number] 11/01/17 RESECTION OF LARGE INTESTINE, OPEN APPROACH [id number] 09/23/17 RESPIRATORY VENTILATION, LESS THAN 24 CONSECUTIVE HOURS [id number] 09/23/17 SUTURE SMALL INTESTINE 65722 11/01/17 Infectious Disease Assmt/Plan - Problem List Patient Problems: All Active Problems GASTRIC FEEDING TUBE DISLODGED (Acute) - Assessment Assessment: 1. Leukocytosis. Improving. 2. Perironitis. 3. Cerebral palsy. 4. H/o seizure disorder. 5. Candiduria. - Plan Plan: continue zosyn, and levaquin. continue ampho b irrigation. Nutritional Asmnt/Malnutr-PDOC - Dietary Evaluation Malnutrition Findings (Please click <Entered> for more info): Nutritional Asmnt/Malnutrition Start: 11/03/17 14: 15 Text: Status: Complete Freq: Document 11/03/17 14:15 [facility] (Rec: 11/03/17 14:45 [facility] Nutritional Asmnt/Malnutrition Patient General Information Nutritional Screening High Risk Consult Diagnosis UTI Pertinent Medical Hx/Surgical Hx MR, cerebral palsy, seizure, colectomy, generalized contractures, ileostomy Subjective Information Consult received for freddy cox. Pt had gtube replacement this morning. Pt now on TPN. May start tube feeding if small bowel series does not show bowel obstruction per MD note. Current Diet Order/ Nutrition Support TPN D10% A4.25%, lipid 20% 150ml at 50ml/hr providing 912kcal, 51g protein Pertinent Medications D5-0.9%ns, novolog, synthroid, k phos Pertinent Labs 11/03 cl 113, Bun 45, glucose 100, POC 92 Nutritional Hx/Data Height 1.78 m Height (Calculated Centimeters) 177.8 Current Weight (lbs) 68.492 kg Weight (Calculated Kilograms) 68.5 Weight (Calculated Grams) 72417.4 [place] Body Weight 166 Body Mass Index (BMI) 21.7 Weight Status Approriate GI Symptoms GI Symptoms None Last BM 0 Difficult in: None Skin Integrity/Comment: rash to right and left foot, scar to abdomen Current %PO Good (75-100%) Estimated Nutritional Goals BEE in Kcals: Using Current wt Calories/Kcals/Kg 23-27 Kcals Calculated 0430-1922 Protein: Using Current wt Protein g/k-1.1 Protein Calculated 69-76 Fluid: ml 1587-1863ml 91ml/kcal) Nutritional Problem No current Nutrition Prob Problem altered GI function Etiology possible small bowel obstruction Signs/Symptoms: pt on TPN Malnutrition Alert Protein-Calorie Malnutrition N/A Is there a minimum of two criteria No selected? Query Text:Check all the applicable criteria. A minimum of two criteria are recommended for diagnosis of either severe or non-severe malnutrition. Intervention/Recommendation Comments 1. If continue with TPN, recommend D12%, AA4%, lipid 20 % 200ml at 80ml/hr. it provides 1555kcal, 250CHO (2. 5mg/kg/min), 76g protein. 2. If TF needed, recommend Fibersource HN starting at 20ml/hr for first 24hr. If tolerated, increase to goal rate of 55ml and wean TPN. 3. Monitor nutrition support, wt, skin integrity and labs 3. F/U as high risk in 2-3 days, 5/2-5/3 Expected Outcomes/Goals Expected Outcomes/Goals 1. Pt to meet at least 75% of nutritional needs via nutrition support with tolerance 2. Wt stability, skin to remain intact, labs to approach WNL.
[2017-11-08] MEDS: Levofloxacin 750mg/150mL 750 MG/150 ML BAG IV SCH (15:43)
--- NOTE | 2017-11-08 17:27 | GI Progress Note ---
Subjective - Review of Systems Service Date: 11/08/17 Events since last encounter: None Subjective: responsive No complaint Objective - Results Result Diagrams: 11/08/17 04:30 11/08/17 04:30 Recent Labs: Laboratory Last Values WBC 17.4 Th/cmm (4.8-10.8) H D 11/08/17 04:30 RBC 3.42 Mil/cmm (4.30-5.70) L 11/08/17 04:30 Hgb 11.3 gm/dL (12-16) L 11/08/17 04:30 Hct 32.7 % (41.0-60) L 11/08/17 04:30 MCV 95.8 fl (80-99) 11/08/17 04:30 MCH 32.9 pg (26.0-30.0) H 11/08/17 04:30 MCHC Differential 34.4 pg (28.0-36.0) 11/08/17 04:30 RDW 15.0 % (11.5-20.0) 11/08/17 04:30 Plt Count 407 Th/cmm (150-400) H D 11/08/17 04:30 MPV 8.6 fl 11/08/17 04:30 Neutrophils % 72.5 % (40.0-80.0) 11/08/17 04:30 Band Neutrophils % 3 % (0-10) 11/07/17 04:45 Lymphocytes % 8.4 % (20.0-50.0) L 11/08/17 04:30 Monocytes % 13.2 % (2.0-10.0) H 11/08/17 04:30 Eosinophils % 5.5 % (0.0-5.0) H 11/08/17 04:30 Basophils % 0.4 % (0.0-2.0) 11/08/17 04:30 Neutrophils (Manual) 74 % (40-80) 11/07/17 04:45 Lymphocytes 16 % (20-50) L 11/07/17 04:45 Monocytes 4 % (2-10) 11/07/17 04:45 Eosinophils 3 % (0-5) 11/07/17 04:45 Platelet Estimate ADEQUATE (NORMAL) 11/06/17 05:45 PT 10.4 SECONDS (9.5-11.5) 11/04/17 05:40 INR 1.00 (0.5-1.4) 11/04/17 05:40 PTT (Actin FS) 22.4 SECONDS (26.0-38.0) L 11/04/17 05:40 Sodium 140 mEq/L (136-145) 11/08/17 04:30 Potassium 4.1 mEq/L (3.5-5.1) 11/08/17 04:30 Chloride 112 mEq/L (98-107) H 11/08/17 04:30 Carbon Dioxide 21.4 mEq/L (21.0-31.0) 11/08/17 04:30 Anion Gap 10.7 (7.0-16.0) 11/08/17 04:30 BUN 33 mg/dL (7-25) H 11/08/17 04:30 Creatinine 1.1 mg/dL (0.7-1.3) 11/08/17 04:30 Est GFR ( Amer) > 60.0 ml/min (>90) 11/08/17 04:30 Est GFR (Non-Af Amer) > 60.0 ml/min 11/08/17 04:30 BUN/Creatinine Ratio 30.0 11/08/17 04:30 Glucose 110 mg/dL (70-105) H 11/08/17 04:30 POC Glucose 97 MG/DL (70 - 105) 11/08/17 13:12 Whole Bld Lactic Acid 1.20 mmol/L (0.60-1.99) 11/01/17 08:49 Calcium 8.3 mg/dL (8.6-10.3) L 11/08/17 04:30 Phosphorus 2.3 mg/dL (2.5-5.0) L 11/06/17 05:45 Magnesium 1.8 mg/dL (1.9-2.7) L 11/08/17 04:30 Total Bilirubin 0.6 mg/dL (0.3-1.0) 11/08/17 04:30 AST 18 U/L (13-39) 11/08/17 04:30 ALT 24 U/L (7-52) 11/08/17 04:30 Alkaline Phosphatase 159 U/L (34-104) H 11/08/17 04:30 Ammonia 76 umol/L (16-53) H 11/08/17 04:30 Troponin I 0.03 ng/mL (0.01-0.05) 11/01/17 08:49 B-Natriuretic Peptide 39.7 pg/mL (5.0-100.0) 11/08/17 04:30 Total Protein 5.6 gm/dL (6.0-8.3) L 11/08/17 04:30 Albumin 2.8 gm/dL (4.2-5.5) L 11/08/17 04:30 Globulin 2.8 gm/dL 11/08/17 04:30 Albumin/Globulin Ratio 1.0 (1.0-1.8) 11/08/17 04:30 Prealbumin 30 mg/dL (10-36) 11/03/17 06:20 Triglycerides 196 mg/dL (<150) H 11/02/17 06:13 Cholesterol 158 mg/dL (<200) 11/03/17 06:20 Lipase 38 U/L (11-82) 11/01/17 08:49 TSH 12.56 uIU/ml (0.34-5.60) H 11/01/17 08:49 Urine Source RANDOM 11/01/17 09:20 Urine Color YELLOW 11/01/17 09:20 Urine Clarity HAZY (CLEAR) 11/01/17 09:20 Urine pH 5.5 (4.6 - 8.0) 11/01/17 09:20 Ur Specific [place] >= 1.030 (1.005-1.030) 11/01/17 09:20 Urine Protein 100 mg/dL (NEGATIVE) H 11/01/17 09:20 Urine Glucose (UA) NEGATIVE mg/dL (NEGATIVE) 11/01/17 09:20 Urine Ketones NEGATIVE mg/dL (NEGATIVE) 11/01/17 09:20 Urine Blood TRACE (NEGATIVE) 11/01/17 09:20 Urine Nitrate NEGATIVE (NEGATIVE) 11/01/17 09:20 Urine Bilirubin SMALL (NEGATIVE) H 11/01/17 09:20 Urine Urobilinogen 0.2 E.U./dL (0.2 - 1.0) 11/01/17 09:20 Ur Leukocyte Esterase SMALL (NEGATIVE) H 11/01/17 09:20 Urine RBC 0-2 /hpf (0-5) H 11/01/17 09:20 Urine WBC 50-100 /hpf (0-5) H 11/01/17 09:20 Ur Epithelial Cells MODERATE /lpf (FEW) 11/01/17 09:20 Urine Bacteria MODERATE /hpf (NONE SEEN) H 11/01/17 09:20 - Physical Exam Vitals and I&O: Vital Signs Temp 98.6 F 11/08/17 16:02 Pulse 93 11/08/17 16:02 Resp 18 11/08/17 16:02 BP 93/44 11/08/17 16:02 Pulse Ox 93 11/08/17 16:02 Intake & Output 11/07/17 11/08/17 11/08/17 18:59 06:59 18:59 Intake Total 2516.615 7076 Output Total 2049 2019 20 Balance -469.667 -740 -20 Weight (lbs) 93.939 kg 93.894 kg 93.894 kg Intake: Intake, IV Amount 540.333 460 D5-0.9%Ns 1,000 ml @ 20 430.333 mls/hr IV .Q24H [facility] Rx#: [id number] Levetiracetam 1,000 mg In 110 110 Sodium Chloride 0.9% 100 ml @ 200 mls/hr IV Q12H [facility] Rx#:[id number] Levofloxacin 750mg/150mL 150 750 mg In 150 ml @ 100 mls/hr IV Q24HR [facility] Rx#: [id number] Piperacillin Sodium/ 200 Tazobact 4.5 gm In Sodium Chloride 0.9% 100 ml @ 100 mls/hr IV Q8HR [facility] Rx #:[id number] Oral 0 Tube Feeding 720 720 TPN/PPN 320 Other 100 Output: Drainage 50 520 20 COLOST 500 Left Anterior Abdomen 50 20 20 Urine 1550 1500 Stool 450 Other: Stool Characteristics Liquid Liquid Liquid Weight Source Bedscale Bedscale Bedscale Active Medications: Current Medications Acetaminophen (Tylenol) 650 mg PO Q6H PRN PRN Reason: PAIN OR FEVER >100 Acetaminophen/Hydrocodone Bitart ([place] 5mg/325mg) 1 tab PO Q6H PRN PRN Reason: PAIN/DISCOMFORT Stop: 12/31/17 10:05 Albuterol Sulfate (Albuterol 2.5mg/3ml Neb Ud) 2.5 mg HHN Q4HRT PRN PRN Reason: Shortness of Breath Stop: 12/31/17 11:19 Benztropine Mesylate (Cogentin) 1 mg PO BID [facility] Stop: 12/31/17 16:59 Last Admin: 11/08/17 09:20 Dose: 1 mg Brimonidine Tartrate (Alphagan 0.2% Ophth Soln) 1 drop EACH EYE BID [facility] Stop: 12/31/17 16:59 Last Admin: 11/08/17 09:49 Dose: 1 drop Chlorhexidine Gluconate (Peridex) 15 ml MM DAILY [facility] Stop: 01/02/18 09:59 Last Admin: 11/08/17 09:49 Dose: 15 ml Clonazepam (Klonopin) 1 mg PO BID [facility] Stop: 12/31/17 16:59 Last Admin: 11/08/17 09:20 Dose: 1 mg Dorzolamide/Timolol (Cosopt Ophth Soln) 1 drop RIGHT EYE BID [facility] Stop: 12/31/17 16:59 Last Admin: 11/08/17 10:04 Dose: 1 drop Escitalopram Oxalate (Lexapro) 20 mg PO DAILY [facility] PRN Reason: Protocol Stop: 01/01/18 08:59 Last Admin: 11/08/17 09:20 Dose: 20 mg Fluticasone Propionate (Flonase) 2 spr NS DAILY [facility] Stop: 01/01/18 08:59 Last Admin: 11/08/17 09:48 Dose: 2 spr Hydrocortisone (Hydrocortisone 1%) 1 appl TP BID PRN PRN Reason: Rash Stop: 12/31/17 10:05 Last Admin: 11/08/17 10:04 Dose: 1 appl Dextrose/Sodium Chloride (D5-0.9%Ns) 1,000 mls @ 20 mls/hr IV .Q24H [facility] Stop: 01/02/18 15:59 Last Admin: 11/07/17 15:57 Dose: 20 mls/hr Levetiracetam 1,000 mg/ Sodium (Chloride) 110 mls @ 200 mls/hr IV Q12H [facility] Stop: 01/02/18 20:59 Last Admin: 11/08/17 09:21 Dose: 200 mls/hr Amphotericin B 50 mg/ Sterile (Water) 1,000 mls @ 100 mls/hr IR Q24H [facility] Stop: 11/09/17 17:59 Last Admin: 11/07/17 18:46 Dose: 100 mls/hr Levofloxacin (Levaquin Pb) 750 mg in 150 mls @ 100 mls/hr IV Q24HR [facility] Stop: 01/06/18 14:59 Last Admin: 11/08/17 15:43 Dose: 100 mls/hr Piperacillin Sod/Tazobactam (Sod 4.5 gm/ Sodium Chloride) 100 mls @ 100 mls/hr IV Q8HR [facility] Stop: 01/06/18 20:59 Last Admin: 11/08/17 13:13 Dose: 100 mls/hr Insulin Aspart (Novolog Insulin Sliding Scale) 0 units SUBQ Q6HR CHANDAN PRN Reason: Protocol Stop: 01/02/18 07:59 Last Admin: 11/08/17 13:14 Dose: Not Given Lamotrigine (Lamictal) 200 mg PO DAILY CHANDAN Stop: 01/01/18 08:59 Last Admin: 11/08/17 09:19 Dose: 200 mg Lamotrigine (Lamictal) 350 mg PO HS CHANDAN Stop: 12/31/17 20:59 Last Admin: 11/07/17 20:42 Dose: 350 mg Latanoprost (Xalatan 0.005% Oph Soln) 1 drop EACH EYE HS CHANDAN Stop: 12/31/17 20:59 Last Admin: 11/07/17 20:42 Dose: 1 drop Levothyroxine Sodium (Synthroid) 0.125 mg PO DAILY CHANDAN Stop: 01/01/18 08:59 Last Admin: 11/08/17 10:05 Dose: 0.125 mg Methotrexate (Methotrexate) 10 mg PO Tu@0730 CHANDAN PRN Reason: Protocol Stop: 01/03/18 07:29 Last Admin: 11/04/17 07:42 Dose: Not Given Miconazole Nitrate (Micatin 2%) 1 appl TP BID CHANDAN Stop: 12/31/17 16:59 Last Admin: 11/08/17 10:05 Dose: 1 appl Pantoprazole Sodium (Protonix) 40 mg IVP BID CHANDAN Stop: 12/31/17 16:59 Last Admin: 11/08/17 09:20 Dose: 40 mg Patient Own Med Onfi (20mg Tablet) 1 PO BID CHANDAN Stop: 01/01/18 16:59 Last Admin: 11/08/17 10:04 Dose: 1 Patient Own Med (Aptiom 600mg Tablet) 1 PO QPM [facility] Stop: 01/01/18 16:59 Last Admin: 11/07/17 16:22 Dose: Not Given Petrolatum (Vaseline Oint) 1 appl TP BID [facility] Stop: 12/31/17 16:59 Last Admin: 11/08/17 09:25 Dose: 1 appl Quetiapine Fumarate (Seroquel) 25 mg PO BID [facility] PRN Reason: Protocol Stop: 12/31/17 16:59 Last Admin: 11/08/17 09:20 Dose: 25 mg Rifaximin (Xifaxan) 600 mg PO BID [facility] Stop: 12/31/17 16:59 Last Admin: 11/08/17 09:20 Dose: 600 mg Sodium Chloride (Mikes Nasal [place]) 1 spr NS QID [facility] Stop: 12/31/17 12:59 Last Admin: 11/08/17 13:14 Dose: 1 spr General: Alert, No acute distress Cardiovascular: Regular rate Lungs: Clear to auscultation Abdomen: Bowel sounds, Soft, Other (G tube and surgical dressing) - Procedures Procedures: Procedures Procedure Code Date BYPASS ILEUM TO CUTANEOUS, OPEN APPROACH [id number] 09/23/17 CHANGE FEEDING DEVICE IN UP INTEST TRACT, CHIROPRACTIC PRACTICE MANAGER APPROACH [id number] 11/01/17 CHANGE GASTROSTOMY TUBE 01403 11/01/17 DRAINAGE OF SMALL INTESTINE, ENDO [id number] 11/01/17 EXPLORATION OF ABDOMEN 77256 11/01/17 FREEING OF BOWEL ADHESION 32608 11/01/17 ILEOSTOMY/JEJUNOSTOMY 14573 09/23/17 INSERTION OF ENDOTRACHEAL AIRWAY INTO TRACHEA, VIA OPENING [id number] 09/23/17 INSERTION OF FEEDING DEVICE INTO STOMACH, OPEN APPROACH [id number] 09/23/17 INTRODUCTION OF NUTRITIONAL INTO CENTRAL VEIN, PERC APPROACH [id number] 09/23/17 PARTIAL REMOVAL OF COLON 21748 09/23/[address] PL[address] GASTROSTOMY TUBE 66931 09/23/17 RELEASE PERITONEUM, OPEN APPROACH [id number] 09/23/17 RELEASE SMALL INTESTINE, OPEN APPROACH [id number] 11/01/17 REPAIR SMALL INTESTINE, OPEN APPROACH [id number] 11/01/17 RESECTION OF LARGE INTESTINE, OPEN APPROACH [id number] 09/23/17 RESPIRATORY VENTILATION, LESS THAN 24 CONSECUTIVE HOURS [id number] 09/23/17 SUTURE SMALL INTESTINE 68513 11/01/17 Assessment/Plan - Problem List Patient Problems: All Active Problems GASTRIC FEEDING TUBE DISLODGED (Acute) - Assessment Assessment: 1.Dysphagia 2. SBO - Plan Plan: 1. Dysphagia S/P G tube cont feeding 2. SBO S/P surgery
[2017-11-08] MEDS: APTIOM 600 MG PO SCH (18:17)
[2017-11-08] MEDS: STERILE WATER FOR IRRIGATION IR SCH (18:38)
[2017-11-08] MEDS: AMPHOTERICIN B IR SCH (18:38)
[2017-11-08] MEDS ORDERED: Mag Sulfate 2gm/50mL Premix 2 GM/50 ML BAG IV ONE (21:59)
[2017-11-09 05:15] LABS: % BASOPHILS 0.4 % (0.0-2.0); % EOSINOPHILS 8.3 % (0.0-5.0); % LYMPHOCYTES 9.2 % (20.0-50.0); % MONOCYTES 11.5 % (2.0-10.0); % NEUTROPHILS 70.6 % (40.0-80.0); BASOPHILE ABSOLUTE 0.1 Th/cumm (0-0.2); EOSINOPHILE ABSOLUTE 1.3 Th/cmm (0.1-0.4); HEMATOCRIT 31.3 % (41.0-60); HEMOGLOBIN 10.7 gm/dL (12-16); LYMPHOCYTE ABSOLUTE 1.4 Th/cmm (1.5-3.0); MEAN CELL VOLUME 94.4 fl (80-99); MEAN CORPUSCULAR HEMOGLOBIN 32.3 pg (26.0-30.0); MEAN CORPUSCULAR HGB CONC 34.2 pg (28.0-36.0); MEAN PLATELET VOLUME 8.5 fl; MONOCYTE ABSOLUTE 1.8 Th/cmm (0.3-1.0); NEUTROPHILE ABSOLUTE 10.9 Th/cmm (1.8-8.0); PLATELET COUNT 398 Th/cmm (150-400); RED BLOOD COUNT 3.32 Mil/cmm (4.30-5.70); RED CELL DISTRIBUTION WIDTH 14.5 % (11.5-20.0)
[2017-11-09 05:22] LABS: WHITE BLOOD COUNT 15.5 Th/cmm (4.8-10.8)
[2017-11-09 05:24] LABS: ANION GAP 10.8 (7.0-16.0); BUN - UREA NITROGEN 30 mg/dL (7-25); CALCIUM SERUM 8.7 mg/dL (8.6-10.3); CARBON DIOXIDE 23.3 mEq/L (21.0-31.0); CHLORIDE 112 mEq/L (98-107); GFR AFRICAN-AMERICAN > 60.0 ml/min (>90); GFR NON AFRICAN-AMERICAN > 60.0 ml/min; GLUCOSE 79 mg/dL (70-105); POTASSIUM SERUM 4.1 mEq/L (3.5-5.1); SODIUM SERUM 142 mEq/L (136-145)
[2017-11-09] MEDS: Chlorhexidine Gluconate 0.12% 480mL Bottle MM SCH (09:30)
[2017-11-09] MEDS: ONFI 20 MG PO SCH ×2 (09:30→18:30)
--- NOTE | 2017-11-09 10:37 | GI Progress Note ---
Subjective - Review of Systems Service Date: 11/09/17 Events since last encounter: No events Subjective: responsive No complaint Feels OK Objective - Results Result Diagrams: 11/09/17 04:30 11/09/17 04:30 Recent Labs: Laboratory Last Values WBC 15.5 Th/cmm (4.8-10.8) H 11/09/17 04:30 RBC 3.32 Mil/cmm (4.30-5.70) L 11/09/17 04:30 Hgb 10.7 gm/dL (12-16) L 11/09/17 04:30 Hct 31.3 % (41.0-60) L 11/09/17 04:30 MCV 94.4 fl (80-99) 11/09/17 04:30 MCH 32.3 pg (26.0-30.0) H 11/09/17 04:30 MCHC Differential 34.2 pg (28.0-36.0) 11/09/17 04:30 RDW 14.5 % (11.5-20.0) 11/09/17 04:30 Plt Count 398 Th/cmm (150-400) 11/09/17 04:30 MPV 8.5 fl 11/09/17 04:30 Neutrophils % 70.6 % (40.0-80.0) 11/09/17 04:30 Band Neutrophils % 3 % (0-10) 11/07/17 04:45 Lymphocytes % 9.2 % (20.0-50.0) L 11/09/17 04:30 Monocytes % 11.5 % (2.0-10.0) H 11/09/17 04:30 Eosinophils % 8.3 % (0.0-5.0) H 11/09/17 04:30 Basophils % 0.4 % (0.0-2.0) 11/09/17 04:30 Neutrophils (Manual) 74 % (40-80) 11/07/17 04:45 Lymphocytes 16 % (20-50) L 11/07/17 04:45 Monocytes 4 % (2-10) 11/07/17 04:45 Eosinophils 3 % (0-5) 11/07/17 04:45 Platelet Estimate ADEQUATE (NORMAL) 11/06/17 05:45 PT 10.4 SECONDS (9.5-11.5) 11/04/17 05:40 INR 1.00 (0.5-1.4) 11/04/17 05:40 PTT (Actin FS) 22.4 SECONDS (26.0-38.0) L 11/04/17 05:40 Sodium 142 mEq/L (136-145) 11/09/17 04:30 Potassium 4.1 mEq/L (3.5-5.1) 11/09/17 04:30 Chloride 112 mEq/L (98-107) H 11/09/17 04:30 Carbon Dioxide 23.3 mEq/L (21.0-31.0) 11/09/17 04:30 Anion Gap 10.8 (7.0-16.0) 11/09/17 04:30 BUN 30 mg/dL (7-25) H 11/09/17 04:30 Creatinine 1.0 mg/dL (0.7-1.3) 11/09/17 04:30 Est GFR ( Amer) > 60.0 ml/min (>90) 11/09/17 04:30 Est GFR (Non-Af Amer) > 60.0 ml/min 11/09/17 04:30 BUN/Creatinine Ratio 30.0 11/09/17 04:30 Glucose 79 mg/dL (70-105) 11/09/17 04:30 POC Glucose 97 MG/DL (70 - 105) 11/08/17 13:12 Whole Bld Lactic Acid 1.20 mmol/L (0.60-1.99) 11/01/17 08:49 Calcium 8.7 mg/dL (8.6-10.3) 11/09/17 04:30 Phosphorus 2.3 mg/dL (2.5-5.0) L 11/06/17 05:45 Magnesium 1.8 mg/dL (1.9-2.7) L 11/08/17 04:30 Total Bilirubin 0.6 mg/dL (0.3-1.0) 11/08/17 04:30 AST 18 U/L (13-39) 11/08/17 04:30 ALT 24 U/L (7-52) 11/08/17 04:30 Alkaline Phosphatase 159 U/L (34-104) H 11/08/17 04:30 Ammonia 76 umol/L (16-53) H 11/08/17 04:30 Troponin I 0.03 ng/mL (0.01-0.05) 11/01/17 08:49 B-Natriuretic Peptide 39.7 pg/mL (5.0-100.0) 11/08/17 04:30 Total Protein 5.6 gm/dL (6.0-8.3) L 11/08/17 04:30 Albumin 2.8 gm/dL (4.2-5.5) L 11/08/17 04:30 Globulin 2.8 gm/dL 11/08/17 04:30 Albumin/Globulin Ratio 1.0 (1.0-1.8) 11/08/17 04:30 Prealbumin 30 mg/dL (10-36) 11/03/17 06:20 Triglycerides 196 mg/dL (<150) H 11/02/17 06:13 Cholesterol 158 mg/dL (<200) 11/03/17 06:20 Lipase 38 U/L (11-82) 11/01/17 08:49 TSH 12.56 uIU/ml (0.34-5.60) H 11/01/17 08:49 Urine Source RANDOM 11/01/17 09:20 Urine Color YELLOW 11/01/17 09:20 Urine Clarity HAZY (CLEAR) 11/01/17 09:20 Urine pH 5.5 (4.6 - 8.0) 11/01/17 09:20 Ur Specific [place] >= 1.030 (1.005-1.030) 11/01/17 09:20 Urine Protein 100 mg/dL (NEGATIVE) H 11/01/17 09:20 Urine Glucose (UA) NEGATIVE mg/dL (NEGATIVE) 11/01/17 09:20 Urine Ketones NEGATIVE mg/dL (NEGATIVE) 11/01/17 09:20 Urine Blood TRACE (NEGATIVE) 11/01/17 09:20 Urine Nitrate NEGATIVE (NEGATIVE) 11/01/17 09:20 Urine Bilirubin SMALL (NEGATIVE) H 11/01/17 09:20 Urine Urobilinogen 0.2 E.U./dL (0.2 - 1.0) 11/01/17 09:20 Ur Leukocyte Esterase SMALL (NEGATIVE) H 11/01/17 09:20 Urine RBC 0-2 /hpf (0-5) H 11/01/17 09:20 Urine WBC 50-100 /hpf (0-5) H 11/01/17 09:20 Ur Epithelial Cells MODERATE /lpf (FEW) 11/01/17 09:20 Urine Bacteria MODERATE /hpf (NONE SEEN) H 11/01/17 09:20 - Physical Exam Vitals and I&O: Vital Signs Temp 98.1 F 11/09/17 08:30 Pulse 88 11/09/17 08:30 Resp 19 11/09/17 08:30 BP 114/60 11/09/17 08:30 Pulse Ox 93 11/09/17 08:30 Intake & Output 11/08/17 11/09/17 11/09/17 18:59 06:59 18:59 Intake Total 210 300 Output Total 20 710 Balance 190 -410 Weight (lbs) 93.894 kg 93.894 kg Intake: Intake, IV Amount 210 Levetiracetam 1,000 mg In 110 Sodium Chloride 0.9% 100 ml @ 200 mls/hr IV Q12H [facility] Rx#:[id number] Piperacillin Sodium/ 100 Tazobact 4.5 gm In Sodium Chloride 0.9% 100 ml @ 100 mls/hr IV Q8HR [facility] Rx #:[id number] Other 300 Output: Drainage 20 10 Left Anterior Abdomen 20 10 Urine 400 Stool 300 Other: Stool Characteristics Liquid Weight Source Bedscale Bedscale Active Medications: Current Medications Acetaminophen (Tylenol) 650 mg PO Q6H PRN PRN Reason: PAIN OR FEVER >100 Acetaminophen/Hydrocodone Bitart ([place] 5mg/325mg) 1 tab PO Q6H PRN PRN Reason: PAIN/DISCOMFORT Stop: 12/31/17 10:05 Albuterol Sulfate (Albuterol 2.5mg/3ml Neb Ud) 2.5 mg HHN Q4HRT PRN PRN Reason: Shortness of Breath Stop: 12/31/17 11:19 Benztropine Mesylate (Cogentin) 1 mg PO BID [facility] Stop: 12/31/17 16:59 Last Admin: 11/08/17 18:15 Dose: 1 mg Brimonidine Tartrate (Alphagan 0.2% Ophth Soln) 1 drop EACH EYE BID [facility] Stop: 12/31/17 16:59 Last Admin: 11/08/17 18:18 Dose: 1 drop Chlorhexidine Gluconate (Peridex) 15 ml MM DAILY [facility] Stop: 01/02/18 09:59 Last Admin: 11/08/17 09:49 Dose: 15 ml Clonazepam (Klonopin) 1 mg PO BID [facility] Stop: 12/31/17 16:59 Last Admin: 11/08/17 18:15 Dose: 1 mg Dorzolamide/Timolol (Cosopt Ophth Soln) 1 drop RIGHT EYE BID [facility] Stop: 12/31/17 16:59 Last Admin: 11/08/17 18:18 Dose: 1 drop Escitalopram Oxalate (Lexapro) 20 mg PO DAILY [facility] PRN Reason: Protocol Stop: 01/01/18 08:59 Last Admin: 11/08/17 09:20 Dose: 20 mg Fluticasone Propionate (Flonase) 2 spr NS DAILY [facility] Stop: 01/01/18 08:59 Last Admin: 11/08/17 09:48 Dose: 2 spr Hydrocortisone (Hydrocortisone 1%) 1 appl TP BID PRN PRN Reason: Rash Stop: 12/31/17 10:05 Last Admin: 11/08/17 10:04 Dose: 1 appl Dextrose/Sodium Chloride (D5-0.9%Ns) 1,000 mls @ 20 mls/hr IV .Q24H [facility] Stop: 01/02/18 15:59 Last Admin: 11/07/17 15:57 Dose: 20 mls/hr Levetiracetam 1,000 mg/ Sodium (Chloride) 110 mls @ 200 mls/hr IV Q12H [facility] Stop: 01/02/18 20:59 Last Admin: 11/08/17 21:51 Dose: 200 mls/hr Amphotericin B 50 mg/ Sterile (Water) 1,000 mls @ 100 mls/hr IR Q24H [facility] Stop: 11/09/17 17:59 Last Admin: 11/08/17 18:38 Dose: 100 mls/hr Levofloxacin (Levaquin Pb) 750 mg in 150 mls @ 100 mls/hr IV Q24HR [facility] Stop: 01/06/18 14:59 Last Admin: 11/08/17 15:43 Dose: 100 mls/hr Piperacillin Sod/Tazobactam (Sod 4.5 gm/ Sodium Chloride) 100 mls @ 100 mls/hr IV Q8HR [facility] Stop: 01/06/18 20:59 Last Admin: 11/08/17 21:51 Dose: 100 mls/hr Lamotrigine (Lamictal) 200 mg PO DAILY [facility] Stop: 01/01/18 08:59 Last Admin: 11/08/17 09:19 Dose: 200 mg Lamotrigine (Lamictal) 350 mg PO HS [facility] Stop: 12/31/17 20:59 Last Admin: 11/08/17 21:26 Dose: Not Given Latanoprost (Xalatan 0.005% Ophth Soln) 1 drop EACH EYE HS [facility] Stop: 12/31/17 20:59 Last Admin: 11/08/17 21:26 Dose: Not Given Levothyroxine Sodium (Synthroid) 0.125 mg PO DAILY [facility] Stop: 01/01/18 08:59 Last Admin: 11/08/17 10:05 Dose: 0.125 mg Methotrexate (Methotrexate) 10 mg PO Tu@0730 [facility] PRN Reason: Protocol Stop: 01/03/18 07:29 Last Admin: 11/04/17 07:42 Dose: Not Given Miconazole Nitrate (Micatin 2%) 1 appl TP BID [facility] Stop: 12/31/17 16:59 Last Admin: 11/08/17 18:19 Dose: 1 appl Pantoprazole Sodium (Protonix) 40 mg IVP BID [facility] Stop: 12/31/17 16:59 Last Admin: 11/08/17 18:15 Dose: 40 mg Patient Own Med Onfi (20mg Tablet) 1 PO BID [facility] Stop: 01/01/18 16:59 Last Admin: 11/08/17 18:17 Dose: 1 Patient Own Med (Aptiom 600mg Tablet) 1 PO QPM [facility] Stop: 01/01/18 16:59 Last Admin: 11/08/17 18:17 Dose: 1 Petrolatum (Vaseline Oint) 1 appl TP BID [facility] Stop: 12/31/17 16:59 Last Admin: 11/08/17 18:18 Dose: Not Given Quetiapine Fumarate (Seroquel) 25 mg PO BID [facility] PRN Reason: Protocol Stop: 12/31/17 16:59 Last Admin: 11/08/17 18:15 Dose: 25 mg Rifaximin (Xifaxan) 600 mg PO BID [facility] Stop: 12/31/17 16:59 Last Admin: 11/08/17 18:15 Dose: 600 mg Sodium Chloride ([place] Nasal [place]) 1 spr NS QID [facility] Stop: 12/31/17 12:59 Last Admin: 11/08/17 21:27 Dose: Not Given General: Alert, No acute distress Cardiovascular: Regular rate, Normal S1, Normal S2 Lungs: Clear to auscultation Abdomen: Bowel sounds, Soft, Other (G tube and surgical dressing) - Procedures Procedures: Procedures Procedure Code Date BYPASS ILEUM TO CUTANEOUS, OPEN APPROACH [id number] 09/23/17 CHANGE FEEDING DEVICE IN UP INTEST TRACT, KIL[employer] DOOR REPAIRER APPROACH [id number] 11/01/17 CHANGE GASTROSTOMY TUBE 90763 11/01/17 DRAINAGE OF SMALL INTESTINE, ENDO [id number] 11/01/17 EXPLORATION OF ABDOMEN 36807 11/01/17 FREEING OF BOWEL ADHESION 40997 11/01/17 ILEOSTOMY/JEJUNOSTOMY 83081 09/23/17 INSERTION OF ENDOTRACHEAL AIRWAY INTO TRACHEA, VIA OPENING [id number] 09/23/17 INSERTION OF FEEDING DEVICE INTO STOMACH, OPEN APPROACH [id number] 09/23/17 INTRODUCTION OF NUTRITIONAL INTO CENTRAL VEIN, PERC APPROACH [id number] 09/23/17 PARTIAL REMOVAL OF COLON 43199 09/23/17 PLACE GASTROSTOMY TUBE 01921 09/23/17 RELEASE PERITONEUM, OPEN APPROACH [id number] 09/23/17 RELEASE SMALL INTESTINE, OPEN APPROACH [id number] 11/01/17 REPAIR SMALL INTESTINE, OPEN APPROACH [id number] 11/01/17 RESECTION OF LARGE INTESTINE, OPEN APPROACH [id number] 09/23/17 RESPIRATORY VENTILATION, LESS THAN 24 CONSECUTIVE HOURS [id number] 09/23/17 SUTURE SMALL INTESTINE 56990 11/01/17 Assessment/Plan - Problem List Patient Problems: All Active Problems GASTRIC FEEDING TUBE DISLODGED (Acute) - Assessment Assessment: 1.Dysphagia 2. SBO - Plan Plan: 1. Dysphagia S/P G tube cont feeding 2. SBO S/P surgery
[2017-11-09] MEDS: Miconazole Nitrate 2% Cream 30gm TP SCH ×2 (11:40→18:26)
[2017-11-09] MEDS: Saline 0.65% Nasal Spray NS SCH (11:41)
[2017-11-09] MEDS: Levothyroxine 0.125 Mg Tab PO SCH (11:59)
[2017-11-09] MEDS: Petrolatum (White) Oint 0.6 Oz Tube TP SCH ×2 (12:02→18:28)
[2017-11-09] MEDS: Multivitamin w/ Minerals Tab PO SCH (12:05)
[2017-11-09] MEDS: Benztropine 1 MG TAB PO SCH ×2 (12:05→18:26)
[2017-11-09] MEDS: Fluticasone Propionate 0.05mg/Actuation 16gm Nasal Spray NS SCH (12:11)
[2017-11-09] MEDS: Levofloxacin 750mg/150mL 750 MG/150 ML BAG IV SCH (14:16)
--- NOTE | 2017-11-09 15:22 | Internal Medicine Prog Note ---
Internal Medicine Subjective - Subjective Service Date: 11/09/17 Patient seen and examined:: with staff Patient is:: awake Patient Complaints of:: vomitting Per staff patient has:: poor appetite, tolerating meds Internal Medicine Objective - Results Result Diagrams: 11/09/17 04:30 11/09/17 04:30 Recent Labs: Laboratory Last Values WBC 15.5 Th/cmm (4.8-10.8) H 11/09/17 04:30 RBC 3.32 Mil/cmm (4.30-5.70) L 11/09/17 04:30 Hgb 10.7 gm/dL (12-16) L 11/09/17 04:30 Hct 31.3 % (41.0-60) L 11/09/17 04:30 MCV 94.4 fl (80-99) 11/09/17 04:30 MCH 32.3 pg (26.0-30.0) H 11/09/17 04:30 MCHC Differential 34.2 pg (28.0-36.0) 11/09/17 04:30 RDW 14.5 % (11.5-20.0) 11/09/17 04:30 Plt Count 398 Th/cmm (150-400) 11/09/17 04:30 MPV 8.5 fl 11/09/17 04:30 Neutrophils % 70.6 % (40.0-80.0) 11/09/17 04:30 Band Neutrophils % 3 % (0-10) 11/07/17 04:45 Lymphocytes % 9.2 % (20.0-50.0) L 11/09/17 04:30 Monocytes % 11.5 % (2.0-10.0) H 11/09/17 04:30 Eosinophils % 8.3 % (0.0-5.0) H 11/09/17 04:30 Basophils % 0.4 % (0.0-2.0) 11/09/17 04:30 Neutrophils (Manual) 74 % (40-80) 11/07/17 04:45 Lymphocytes 16 % (20-50) L 11/07/17 04:45 Monocytes 4 % (2-10) 11/07/17 04:45 Eosinophils 3 % (0-5) 11/07/17 04:45 Platelet Estimate ADEQUATE (NORMAL) 11/06/17 05:45 PT 10.4 SECONDS (9.5-11.5) 11/04/17 05:40 INR 1.00 (0.5-1.4) 11/04/17 05:40 PTT (Actin FS) 22.4 SECONDS (26.0-38.0) L 11/04/17 05:40 Sodium 142 mEq/L (136-145) 11/09/17 04:30 Potassium 4.1 mEq/L (3.5-5.1) 11/09/17 04:30 Chloride 112 mEq/L (98-107) H 11/09/17 04:30 Carbon Dioxide 23.3 mEq/L (21.0-31.0) 11/09/17 04:30 Anion Gap 10.8 (7.0-16.0) 11/09/17 04:30 BUN 30 mg/dL (7-25) H 11/09/17 04:30 Creatinine 1.0 mg/dL (0.7-1.3) 11/09/17 04:30 Est GFR ( Amer) > 60.0 ml/min (>90) 11/09/17 04:30 Est GFR (Non-Af Amer) > 60.0 ml/min 11/09/17 04:30 BUN/Creatinine Ratio 30.0 11/09/17 04:30 Glucose 79 mg/dL (70-105) 11/09/17 04:30 POC Glucose 97 MG/DL (70 - 105) 11/08/17 13:12 Whole Bld Lactic Acid 1.20 mmol/L (0.60-1.99) 11/01/17 08:49 Calcium 8.7 mg/dL (8.6-10.3) 11/09/17 04:30 Phosphorus 2.3 mg/dL (2.5-5.0) L 11/06/17 05:45 Magnesium 1.8 mg/dL (1.9-2.7) L 11/08/17 04:30 Total Bilirubin 0.6 mg/dL (0.3-1.0) 11/08/17 04:30 AST 18 U/L (13-39) 11/08/17 04:30 ALT 24 U/L (7-52) 11/08/17 04:30 Alkaline Phosphatase 159 U/L (34-104) H 11/08/17 04:30 Ammonia 76 umol/L (16-53) H 11/08/17 04:30 Troponin I 0.03 ng/mL (0.01-0.05) 11/01/17 08:49 B-Natriuretic Peptide 39.7 pg/mL (5.0-100.0) 11/08/17 04:30 Total Protein 5.6 gm/dL (6.0-8.3) L 11/08/17 04:30 Albumin 2.8 gm/dL (4.2-5.5) L 11/08/17 04:30 Globulin 2.8 gm/dL 11/08/17 04:30 Albumin/Globulin Ratio 1.0 (1.0-1.8) 11/08/17 04:30 Prealbumin 30 mg/dL (10-36) 11/03/17 06:20 Triglycerides 196 mg/dL (<150) H 11/02/17 06:13 Cholesterol 158 mg/dL (<200) 11/03/17 06:20 Lipase 38 U/L (11-82) 11/01/17 08:49 TSH 12.56 uIU/ml (0.34-5.60) H 11/01/17 08:49 Urine Source RANDOM 11/01/17 09:20 Urine Color YELLOW 11/01/17 09:20 Urine Clarity HAZY (CLEAR) 11/01/17 09:20 Urine pH 5.5 (4.6 - 8.0) 11/01/17 09:20 Ur Specific [place] >= 1.030 (1.005-1.030) 11/01/17 09:20 Urine Protein 100 mg/dL (NEGATIVE) H 11/01/17 09:20 Urine Glucose (UA) NEGATIVE mg/dL (NEGATIVE) 11/01/17 09:20 Urine Ketones NEGATIVE mg/dL (NEGATIVE) 11/01/17 09:20 Urine Blood TRACE (NEGATIVE) 11/01/17 09:20 Urine Nitrate NEGATIVE (NEGATIVE) 11/01/17 09:20 Urine Bilirubin SMALL (NEGATIVE) H 11/01/17 09:20 Urine Urobilinogen 0.2 E.U./dL (0.2 - 1.0) 11/01/17 09:20 Ur Leukocyte Esterase SMALL (NEGATIVE) H 11/01/17 09:20 Urine RBC 0-2 /hpf (0-5) H 11/01/17 09:20 Urine WBC 50-100 /hpf (0-5) H 11/01/17 09:20 Ur Epithelial Cells MODERATE /lpf (FEW) 11/01/17 09:20 Urine Bacteria MODERATE /hpf (NONE SEEN) H 11/01/17 09:20 - Physical Exam Vitals and I&O: Vital Signs Temp 97.9 F 11/09/17 11:58 Pulse 85 11/09/17 11:58 Resp 18 11/09/17 11:58 BP 106/57 11/09/17 11:58 Pulse Ox 93 11/09/17 11:58 Intake & Output 11/08/17 11/09/17 11/09/17 18:59 06:59 18:59 Intake Total 360 510 Output Total 20 710 Balance 340 -200 Weight (lbs) 207 lb 207 lb Intake: Intake, IV Amount 360 210 Levetiracetam 1,000 mg In 110 110 Sodium Chloride 0.9% 100 ml @ 200 mls/hr IV Q12H [facility] Rx#:[id number] Levofloxacin 750mg/150mL 150 750 mg In 150 ml @ 100 mls/hr IV Q24HR [facility] Rx#: [id number] Piperacillin Sodium/ 100 100 Tazobact 4.5 gm In Sodium Chloride 0.9% 100 ml @ 100 mls/hr IV Q8HR [facility] Rx #:[id number] Other 300 Output: Drainage 20 10 Left Anterior Abdomen 20 10 Urine 400 Stool 300 Other: Stool Characteristics Liquid Weight Source Bedscale Bedscale Active Medications: Current Medications Acetaminophen (Tylenol) 650 mg PO Q6H PRN PRN Reason: PAIN OR FEVER >100 Acetaminophen/Hydrocodone Bitart ([place] 5mg/325mg) 1 tab PO Q6H PRN PRN Reason: PAIN/DISCOMFORT Stop: 12/31/17 10:05 Albuterol Sulfate (Albuterol 2.5mg/3ml Neb Ud) 2.5 mg HHN Q4HRT PRN PRN Reason: Shortness of Breath Stop: 12/31/17 11:19 Benztropine Mesylate (Cogentin) 1 mg PO BID [facility] Stop: 12/31/17 16:59 Last Admin: 11/09/17 12:05 Dose: 1 mg Brimonidine Tartrate (Alphagan 0.2% Ophth Soln) 1 drop EACH EYE BID [facility] Stop: 12/31/17 16:59 Last Admin: 11/09/17 11:40 Dose: 1 drop Chlorhexidine Gluconate (Peridex) 15 ml MM DAILY [facility] Stop: 01/02/18 09:59 Last Admin: 11/08/17 09:49 Dose: 15 ml Clonazepam (Klonopin) 1 mg PO BID [facility] Stop: 12/31/17 16:59 Last Admin: 11/09/17 12:05 Dose: 1 mg Dorzolamide/Timolol (Cosopt Ophth Soln) 1 drop RIGHT EYE BID [facility] Stop: 12/31/17 16:59 Last Admin: 11/09/17 11:40 Dose: 1 drop Escitalopram Oxalate (Lexapro) 20 mg PO DAILY [facility] PRN Reason: Protocol Stop: 01/01/18 08:59 Last Admin: 11/09/17 12:05 Dose: 20 mg Fluticasone Propionate (Flonase) 2 spr NS DAILY [facility] Stop: 01/01/18 08:59 Last Admin: 11/09/17 12:11 Dose: 2 spr Hydrocortisone (Hydrocortisone 1%) 1 appl TP BID PRN PRN Reason: Rash Stop: 12/31/17 10:05 Last Admin: 11/09/17 12:01 Dose: 1 appl Dextrose/Sodium Chloride (D5-0.9%Ns) 1,000 mls @ 20 mls/hr IV .Q24H [facility] Stop: 01/02/18 15:59 Last Admin: 11/07/17 15:57 Dose: 20 mls/hr Levetiracetam 1,000 mg/ Sodium (Chloride) 110 mls @ 200 mls/hr IV Q12H [facility] Stop: 01/02/18 20:59 Last Admin: 11/09/17 11:51 Dose: 200 mls/hr Amphotericin B 50 mg/ Sterile (Water) 1,000 mls @ 100 mls/hr IR Q24H [facility] Stop: 11/09/17 17:59 Last Admin: 11/08/17 18:38 Dose: 100 mls/hr Levofloxacin (Levaquin Pb) 750 mg in 150 mls @ 100 mls/hr IV Q24HR [facility] Stop: 01/06/18 14:59 Last Admin: 11/09/17 14:16 Dose: 100 mls/hr Piperacillin Sod/Tazobactam (Sod 4.5 gm/ Sodium Chloride) 100 mls @ 100 mls/hr IV Q8HR [facility] Stop: 01/06/18 20:59 Last Admin: 11/09/17 13:50 Dose: 100 mls/hr Lamotrigine (Lamictal) 200 mg PO DAILY [facility] Stop: 01/01/18 08:59 Last Admin: 11/09/17 12:07 Dose: 200 mg Lamotrigine (Lamictal) 350 mg PO HS [facility] Stop: 12/31/17 20:59 Last Admin: 11/08/17 21:26 Dose: Not Given Latanoprost (Xalatan 0.005% Ophth Soln) 1 drop EACH EYE HS [facility] Stop: 12/31/17 20:59 Last Admin: 11/08/17 21:26 Dose: Not Given Levothyroxine Sodium (Synthroid) 0.125 mg PO DAILY [facility] Stop: 01/01/18 08:59 Last Admin: 11/09/17 11:59 Dose: 0.125 mg Methotrexate (Methotrexate) 10 mg PO Tu@0730 [facility] PRN Reason: Protocol Stop: 01/03/18 07:29 Last Admin: 11/04/17 07:42 Dose: Not Given Miconazole Nitrate (Micatin 2%) 1 appl TP BID [facility] Stop: 12/31/17 16:59 Last Admin: 11/09/17 11:40 Dose: 1 appl Pantoprazole Sodium (Protonix) 40 mg IVP BID [facility] Stop: 12/31/17 16:59 Last Admin: 11/09/17 11:57 Dose: 40 mg Patient Own Med Onfi (20mg Tablet) 1 PO BID [facility] Stop: 01/01/18 16:59 Last Admin: 11/08/17 18:17 Dose: 1 Patient Own Med (Aptiom 600mg Tablet) 1 PO QPM [facility] Stop: 01/01/18 16:59 Last Admin: 11/08/17 18:17 Dose: 1 Petrolatum (Vaseline Oint) 1 appl TP BID [facility] Stop: 12/31/17 16:59 Last Admin: 11/09/17 12:02 Dose: 1 appl Quetiapine Fumarate (Seroquel) 25 mg PO BID [facility] PRN Reason: Protocol Stop: 12/31/17 16:59 Last Admin: 11/08/17 18:15 Dose: 25 mg Rifaximin (Xifaxan) 600 mg PO BID [facility] Stop: 12/31/17 16:59 Last Admin: 11/09/17 12:02 Dose: 600 mg Sodium Chloride ([place] Nasal [place]) 1 spr NS QID [facility] Stop: 12/31/17 12:59 Last Admin: 11/09/17 11:41 Dose: 1 spr General: weak HEENT: NC/AT, PERRLA Neck: Supple Lungs: CTAB Cardiovascular: RRR, Normal S1, Normal S2, without murmur Abdomen: soft, +GT, positive bowel sound Extremities: excoriation - Procedures Procedures: Procedures Procedure Code Date BYPASS ILEUM TO CUTANEOUS, OPEN APPROACH [id number] 09/23/17 CHANGE FEEDING DEVICE IN UP INTEST TRACT, KITCHEN [employer] COUNTER WORKER APPROACH [id number] 11/01/17 CHANGE GASTROSTOMY TUBE 24650 11/01/17 DRAINAGE OF SMALL INTESTINE, ENDO [id number] 11/01/17 EXPLORATION OF ABDOMEN 80049 11/01/17 FREEING OF BOWEL ADHESION 95925 11/01/17 ILEOSTOMY/JEJUNOSTOMY 41694 09/23/17 INSERTION OF ENDOTRACHEAL AIRWAY INTO TRACHEA, VIA OPENING [id number] 09/23/17 INSERTION OF FEEDING DEVICE INTO STOMACH, OPEN APPROACH [id number] 09/23/17 INTRODUCTION OF NUTRITIONAL INTO CENTRAL VEIN, PERC APPROACH [id number] 09/23/17 PARTIAL REMOVAL OF COLON 75348 09/23/[address] PL[address] GASTR[address]OMY TUBE 55572 09/23/17 RELEASE PERITONEUM, OPEN APPROACH [id number] 09/23/17 RELEASE SMALL INTESTINE, OPEN APPROACH [id number] 11/01/17 REPAIR SMALL INTESTINE, OPEN APPROACH [id number] 11/01/17 RESECTION OF LARGE INTESTINE, OPEN APPROACH [id number] 09/23/17 RESPIRATORY VENTILATION, LESS THAN 24 CONSECUTIVE HOURS [id number] 09/23/17 SUTURE SMALL INTESTINE 92369 11/01/17 Internal Medicine Assmt/Plan - Assessment Assessment: s/p peg placement sepsis intractable vomiting small bowel obstruction acute renal insufficiency acute uti mr cp seizures generalized contractures - Plan Plan: cbc/bmp in am MONITOR LYTES CONTINUE CURRENT PLAN OF CARE Nutritional Asmnt/Malnutr-PDOC - Dietary Evaluation Malnutrition Findings (Please click <Entered> for more info): Nutritional Asmnt/Malnutrition Start: 11/03/17 14: 15 Text: Status: Complete Freq: Document 11/03/17 14:15 ELGIN (Rec: 11/03/17 14:45 ELGIN [email or web address]) Nutritional Asmnt/Malnutrition Patient General Information Nutritional Screening High Risk Consult Diagnosis UTI Pertinent Medical Hx/Surgical Hx MR, cerebral palsy, seizure, colectomy, generalized contractures, ileostomy Subjective Information Consult received for freddy cox. Pt had gtube replacement this morning. Pt now on TPN. May start tube feeding if small bowel series does not show bowel obstruction per MD note. Current Diet Order/ Nutrition Support TPN D10% A4.25%, lipid 20% 150ml at 50ml/hr providing 912kcal, 51g protein Pertinent Medications D5-0.9%ns, novolog, synthroid, k phos Pertinent Labs 11/03 cl 113, Bun 45, glucose 100, POC 92 Nutritional Hx/Data Height 5 ft 10 in Height (Calculated Centimeters) 177.8 Current Weight (lbs) 151 lb Weight (Calculated Kilograms) 68.5 Weight (Calculated Grams) 68276.4 [place] Body Weight 166 Body Mass Index (BMI) 21.7 Weight Status Approriate GI Symptoms GI Symptoms None Last BM 0 Difficult in: None Skin Integrity/Comment: rash to right and left foot, scar to abdomen Current %PO Good (75-100%) Estimated Nutritional Goals BEE in Kcals: Using Current wt Calories/Kcals/Kg 23-27 Kcals Calculated 3340-3595 Protein: Using Current wt Protein g/k-1.1 Protein Calculated 69-76 Fluid: ml 1587-1863ml 91ml/kcal) Nutritional Problem No current Nutrition Prob Problem altered GI function Etiology possible small bowel obstruction Signs/Symptoms: pt on TPN Malnutrition Alert Protein-Calorie Malnutrition N/A Is there a minimum of two criteria No selected? Query Text:Check all the applicable criteria. A minimum of two criteria are recommended for diagnosis of either severe or non-severe malnutrition. Intervention/Recommendation Comments 1. If continue with TPN, recommend D12%, AA4%, lipid 20 % 200ml at 80ml/hr. it provides 1555kcal, 250CHO (2. 5mg/kg/min), 76g protein. 2. If TF needed, recommend Fibersource HN starting at 20ml/hr for first 24hr. If tolerated, increase to goal rate of 55ml and wean TPN. 3. Monitor nutrition support, wt, skin integrity and labs 3. F/U as high risk in 2-3 days, /-11/06 Expected Outcomes/Goals Expected Outcomes/Goals 1. Pt to meet at least 75% of nutritional needs via nutrition support with tolerance 2. Wt stability, skin to remain intact, labs to approach WNL.
--- NOTE | 2017-11-09 16:04 | Infectious Disease Prog Note ---
Infectious Disease Subjective - Review of Systems Service Date: 11/09/17 Subjective: no fever. Infectious Disease Objective - Results Result Diagrams: 11/09/17 04:30 11/09/17 04:30 Recent Labs: Laboratory Last Values WBC 15.5 Th/cmm (4.8-10.8) H 11/09/17 04:30 RBC 3.32 Mil/cmm (4.30-5.70) L 11/09/17 04:30 Hgb 10.7 gm/dL (12-16) L 11/09/17 04:30 Hct 31.3 % (41.0-60) L 11/09/17 04:30 MCV 94.4 fl (80-99) 11/09/17 04:30 MCH 32.3 pg (26.0-30.0) H 11/09/17 04:30 MCHC Differential 34.2 pg (28.0-36.0) 11/09/17 04:30 RDW 14.5 % (11.5-20.0) 11/09/17 04:30 Plt Count 398 Th/cmm (150-400) 11/09/17 04:30 MPV 8.5 fl 11/09/17 04:30 Neutrophils % 70.6 % (40.0-80.0) 11/09/17 04:30 Band Neutrophils % 3 % (0-10) 11/07/17 04:45 Lymphocytes % 9.2 % (20.0-50.0) L 11/09/17 04:30 Monocytes % 11.5 % (2.0-10.0) H 11/09/17 04:30 Eosinophils % 8.3 % (0.0-5.0) H 11/09/17 04:30 Basophils % 0.4 % (0.0-2.0) 11/09/17 04:30 Neutrophils (Manual) 74 % (40-80) 11/07/17 04:45 Lymphocytes 16 % (20-50) L 11/07/17 04:45 Monocytes 4 % (2-10) 11/07/17 04:45 Eosinophils 3 % (0-5) 11/07/17 04:45 Platelet Estimate ADEQUATE (NORMAL) 11/06/17 05:45 PT 10.4 SECONDS (9.5-11.5) 11/04/17 05:40 INR 1.00 (0.5-1.4) 11/04/17 05:40 PTT (Actin FS) 22.4 SECONDS (26.0-38.0) L 11/04/17 05:40 Sodium 142 mEq/L (136-145) 11/09/17 04:30 Potassium 4.1 mEq/L (3.5-5.1) 11/09/17 04:30 Chloride 112 mEq/L (98-107) H 11/09/17 04:30 Carbon Dioxide 23.3 mEq/L (21.0-31.0) 11/09/17 04:30 Anion Gap 10.8 (7.0-16.0) 11/09/17 04:30 BUN 30 mg/dL (7-25) H 11/09/17 04:30 Creatinine 1.0 mg/dL (0.7-1.3) 11/09/17 04:30 Est GFR ( Amer) > 60.0 ml/min (>90) 11/09/17 04:30 Est GFR (Non-Af Amer) > 60.0 ml/min 11/09/17 04:30 BUN/Creatinine Ratio 30.0 11/09/17 04:30 Glucose 79 mg/dL (70-105) 11/09/17 04:30 POC Glucose 97 MG/DL (70 - 105) 11/08/17 13:12 Whole Bld Lactic Acid 1.20 mmol/L (0.60-1.99) 11/01/17 08:49 Calcium 8.7 mg/dL (8.6-10.3) 11/09/17 04:30 Phosphorus 2.3 mg/dL (2.5-5.0) L 11/06/17 05:45 Magnesium 1.8 mg/dL (1.9-2.7) L 11/08/17 04:30 Total Bilirubin 0.6 mg/dL (0.3-1.0) 11/08/17 04:30 AST 18 U/L (13-39) 11/08/17 04:30 ALT 24 U/L (7-52) 11/08/17 04:30 Alkaline Phosphatase 159 U/L (34-104) H 11/08/17 04:30 Ammonia 76 umol/L (16-53) H 11/08/17 04:30 Troponin I 0.03 ng/mL (0.01-0.05) 11/01/17 08:49 B-Natriuretic Peptide 39.7 pg/mL (5.0-100.0) 11/08/17 04:30 Total Protein 5.6 gm/dL (6.0-8.3) L 11/08/17 04:30 Albumin 2.8 gm/dL (4.2-5.5) L 11/08/17 04:30 Globulin 2.8 gm/dL 11/08/17 04:30 Albumin/Globulin Ratio 1.0 (1.0-1.8) 11/08/17 04:30 Prealbumin 30 mg/dL (10-36) 11/03/17 06:20 Triglycerides 196 mg/dL (<150) H 11/02/17 06:13 Cholesterol 158 mg/dL (<200) 11/03/17 06:20 Lipase 38 U/L (11-82) 11/01/17 08:49 TSH 12.56 uIU/ml (0.34-5.60) H 11/01/17 08:49 Urine Source RANDOM 11/01/17 09:20 Urine Color YELLOW 11/01/17 09:20 Urine Clarity HAZY (CLEAR) 11/01/17 09:20 Urine pH 5.5 (4.6 - 8.0) 11/01/17 09:20 Ur Specific [place] >= 1.030 (1.005-1.030) 11/01/17 09:20 Urine Protein 100 mg/dL (NEGATIVE) H 11/01/17 09:20 Urine Glucose (UA) NEGATIVE mg/dL (NEGATIVE) 11/01/17 09:20 Urine Ketones NEGATIVE mg/dL (NEGATIVE) 11/01/17 09:20 Urine Blood TRACE (NEGATIVE) 11/01/17 09:20 Urine Nitrate NEGATIVE (NEGATIVE) 11/01/17 09:20 Urine Bilirubin SMALL (NEGATIVE) H 11/01/17 09:20 Urine Urobilinogen 0.2 E.U./dL (0.2 - 1.0) 11/01/17 09:20 Ur Leukocyte Esterase SMALL (NEGATIVE) H 11/01/17 09:20 Urine RBC 0-2 /hpf (0-5) H 11/01/17 09:20 Urine WBC 50-100 /hpf (0-5) H 11/01/17 09:20 Ur Epithelial Cells MODERATE /lpf (FEW) 11/01/17 09:20 Urine Bacteria MODERATE /hpf (NONE SEEN) H 11/01/17 09:20 - Physical Exam Vitals and I&O: Vital Signs Temp 97.9 F 11/09/17 11:58 Pulse 85 11/09/17 11:58 Resp 18 11/09/17 11:58 BP 106/57 11/09/17 11:58 Pulse Ox 93 11/09/17 11:58 Intake & Output 11/08/17 11/09/17 11/09/17 18:59 06:59 18:59 Intake Total 360 510 100 Output Total 20 710 Balance 340 -200 100 Weight (lbs) 93.894 kg 93.894 kg Intake: Intake, IV Amount 360 210 100 Levetiracetam 1,000 mg In 110 110 Sodium Chloride 0.9% 100 ml @ 200 mls/hr IV Q12H [facility] Rx#:[id number] Levofloxacin 750mg/150mL 150 750 mg In 150 ml @ 100 mls/hr IV Q24HR [facility] Rx#: [id number] Piperacillin Sodium/ 100 100 100 Tazobact 4.5 gm In Sodium Chloride 0.9% 100 ml @ 100 mls/hr IV Q8HR [facility] Rx #:[id number] Other 300 Output: Drainage 20 10 Left Anterior Abdomen 20 10 Urine 400 Stool 300 Other: Stool Characteristics Liquid Weight Source Bedscale Bedscale Active Medications: Current Medications Acetaminophen (Tylenol) 650 mg PO Q6H PRN PRN Reason: PAIN OR FEVER >100 Acetaminophen/Hydrocodone Bitart ([place] 5mg/325mg) 1 tab PO Q6H PRN PRN Reason: PAIN/DISCOMFORT Stop: 12/31/17 10:05 Albuterol Sulfate (Albuterol 2.5mg/3ml Neb Ud) 2.5 mg HHN Q4HRT PRN PRN Reason: Shortness of Breath Stop: 12/31/17 11:19 Benztropine Mesylate (Cogentin) 1 mg PO BID [facility] Stop: 12/31/17 16:59 Last Admin: 11/09/17 12:05 Dose: 1 mg Brimonidine Tartrate (Alphagan 0.2% Ophth Soln) 1 drop EACH EYE BID [facility] Stop: 12/31/17 16:59 Last Admin: 11/09/17 11:40 Dose: 1 drop Chlorhexidine Gluconate (Peridex) 15 ml MM DAILY [facility] Stop: 01/02/18 09:59 Last Admin: 11/09/17 09:30 Dose: 15 ml Clonazepam (Klonopin) 1 mg PO BID [facility] Stop: 12/31/17 16:59 Last Admin: 11/09/17 12:05 Dose: 1 mg Dorzolamide/Timolol (Cosopt Ophth Soln) 1 drop RIGHT EYE BID [facility] Stop: 12/31/17 16:59 Last Admin: 11/09/17 11:40 Dose: 1 drop Escitalopram Oxalate (Lexapro) 20 mg PO DAILY [facility] PRN Reason: Protocol Stop: 01/01/18 08:59 Last Admin: 11/09/17 12:05 Dose: 20 mg Fluticasone Propionate (Flonase) 2 spr NS DAILY [facility] Stop: 01/01/18 08:59 Last Admin: 11/09/17 12:11 Dose: 2 spr Hydrocortisone (Hydrocortisone 1%) 1 appl TP BID PRN PRN Reason: Rash Stop: 12/31/17 10:05 Last Admin: 11/09/17 12:01 Dose: 1 appl Dextrose/Sodium Chloride (D5-0.9%Ns) 1,000 mls @ 20 mls/hr IV .Q24H [facility] Stop: 01/02/18 15:59 Last Admin: 11/07/17 15:57 Dose: 20 mls/hr Levetiracetam 1,000 mg/ Sodium (Chloride) 110 mls @ 200 mls/hr IV Q12H [facility] Stop: 01/02/18 20:59 Last Admin: 11/09/17 11:51 Dose: 200 mls/hr Amphotericin B 50 mg/ Sterile (Water) 1,000 mls @ 100 mls/hr IR Q24H [facility] Stop: 11/09/17 17:59 Last Admin: 11/08/17 18:38 Dose: 100 mls/hr Levofloxacin (Levaquin Pb) 750 mg in 150 mls @ 100 mls/hr IV Q24HR [facility] Stop: 01/06/18 14:59 Last Admin: 11/09/17 14:16 Dose: 100 mls/hr Piperacillin Sod/Tazobactam (Sod 4.5 gm/ Sodium Chloride) 100 mls @ 100 mls/hr IV Q8HR [facility] Stop: 01/06/18 20:59 Last Admin: 11/09/17 14:50 Dose: 100 mls/hr Lamotrigine (Lamictal) 200 mg PO DAILY [facility] Stop: 01/01/18 08:59 Last Admin: 11/09/17 12:07 Dose: 200 mg Lamotrigine (Lamictal) 350 mg PO HS [facility] Stop: 12/31/17 20:59 Last Admin: 11/08/17 21:26 Dose: Not Given Latanoprost (Xalatan 0.005% Ophth Soln) 1 drop EACH EYE HS [facility] Stop: 12/31/17 20:59 Last Admin: 11/08/17 21:26 Dose: Not Given Levothyroxine Sodium (Synthroid) 0.125 mg PO DAILY [facility] Stop: 01/01/18 08:59 Last Admin: 11/09/17 11:59 Dose: 0.125 mg Methotrexate (Methotrexate) 10 mg PO Tu@0730 [facility] PRN Reason: Protocol Stop: 01/03/18 07:29 Last Admin: 11/04/17 07:42 Dose: Not Given Miconazole Nitrate (Micatin 2%) 1 appl TP BID [facility] Stop: 12/31/17 16:59 Last Admin: 11/09/17 11:40 Dose: 1 appl Pantoprazole Sodium (Protonix) 40 mg IVP BID [facility] Stop: 12/31/17 16:59 Last Admin: 11/09/17 11:57 Dose: 40 mg Patient Own Med Onfi (20mg Tablet) 1 PO BID [facility] Stop: 01/01/18 16:59 Last Admin: 11/09/17 09:30 Dose: 1 Patient Own Med (Aptiom 600mg Tablet) 1 PO QPM [facility] Stop: 01/01/18 16:59 Last Admin: 11/08/17 18:17 Dose: 1 Petrolatum (Vaseline Oint) 1 appl TP BID [facility] Stop: 12/31/17 16:59 Last Admin: 11/09/17 12:02 Dose: 1 appl Quetiapine Fumarate (Seroquel) 25 mg PO BID [facility] PRN Reason: Protocol Stop: 12/31/17 16:59 Last Admin: 11/09/17 15:32 Dose: 25 mg Rifaximin (Xifaxan) 600 mg PO BID [facility] Stop: 12/31/17 16:59 Last Admin: 11/09/17 12:02 Dose: 600 mg Sodium Chloride ([place] Nasal [place]) 1 spr NS QID [facility] Stop: 12/31/17 12:59 Last Admin: 11/09/17 11:41 Dose: 1 spr General: no acute distress, well developed, well nourished HEENT: atraumatic, no normocephalic, no PERRLA, no EOMI Neck: supple, thyromegaly Cardiovascular: S1S2, regular Lungs: clear to auscultation bilaterally, clear to percussion Abdomen: soft, drain, other (ileostomy ok), no tender, no distended Extremities: no cyanosis, no clubbing, no edema Neurological: awake, alert - Procedures Procedures: Procedures Procedure Code Date BYPASS ILEUM TO CUTANEOUS, OPEN APPROACH [id number] 09/23/17 CHANGE FEEDING DEVICE IN UP INTEST TRACT, ER RN APPROACH [id number] 11/01/17 CHANGE GASTROSTOMY TUBE 84581 11/01/17 DRAINAGE OF SMALL INTESTINE, ENDO [id number] 11/01/17 EXPLORATION OF ABDOMEN 89887 11/01/17 FREEING OF BOWEL ADHESION 17894 11/01/17 ILEOSTOMY/JEJUNOSTOMY 92026 09/23/17 INSERTION OF ENDOTRACHEAL AIRWAY INTO TRACHEA, VIA OPENING [id number] 09/23/17 INSERTION OF FEEDING DEVICE INTO STOMACH, OPEN APPROACH [id number] 09/23/17 INTRODUCTION OF NUTRITIONAL INTO CENTRAL VEIN, PERC APPROACH [id number] 09/23/17 PARTIAL REMOVAL OF COLON 95175 09/23/[address] PL[address] GASTROSTOMY TUBE 77554 09/23/17 RELEASE PERITONEUM, OPEN APPROACH [id number] 09/23/17 RELEASE SMALL INTESTINE, OPEN APPROACH [id number] 11/01/17 REPAIR SMALL INTESTINE, OPEN APPROACH [id number] 11/01/17 RESECTION OF LARGE INTESTINE, OPEN APPROACH [id number] 09/23/17 RESPIRATORY VENTILATION, LESS THAN 24 CONSECUTIVE HOURS [id number] 09/23/17 SUTURE SMALL INTESTINE 30458 11/01/17 Infectious Disease Assmt/Plan - Problem List Patient Problems: All Active Problems GASTRIC FEEDING TUBE DISLODGED (Acute) - Assessment Assessment: 1. Leukocytosis. Improving. 2. Perironitis. 3. Cerebral palsy. 4. H/o seizure disorder. 5. Candiduria. - Plan Plan: continue zosyn, and levaquin. CHUCHO ampho b irrigation. Nutritional Asmnt/Malnutr-PDOC - Dietary Evaluation Malnutrition Findings (Please click <Entered> for more info): Nutritional Asmnt/Malnutrition Start: 11/03/17 14: 15 Text: Status: Complete Freq: Document 11/03/17 14:15 HEN (Rec: 11/03/17 14:45 LCHENG [email or web address]) Nutritional Asmnt/Malnutrition Patient General Information Nutritional Screening High Risk Consult Diagnosis UTI Pertinent Medical Hx/Surgical Hx MR, cerebral palsy, seizure, colectomy, generalized contractures, ileostomy Subjective Information Consult received for freddy cox. Pt had gtube replacement this morning. Pt now on TPN. May start tube feeding if small bowel series does not show bowel obstruction per MD note. Current Diet Order/ Nutrition Support TPN D10% A4.25%, lipid 20% 150ml at 50ml/hr providing 912kcal, 51g protein Pertinent Medications D5-0.9%ns, novolog, synthroid, k phos Pertinent Labs 11/03 cl 113, Bun 45, glucose 100, POC 92 Nutritional Hx/Data Height 1.78 m Height (Calculated Centimeters) 177.8 Current Weight (lbs) 68.492 kg Weight (Calculated Kilograms) 68.5 Weight (Calculated Grams) 10629.4 [place] Body Weight 166 Body Mass Index (BMI) 21.7 Weight Status Approriate GI Symptoms GI Symptoms None Last BM 0 Difficult in: None Skin Integrity/Comment: rash to right and left foot, scar to abdomen Current %PO Good (75-100%) Estimated Nutritional Goals BEE in Kcals: Using Current wt Calories/Kcals/Kg 23-27 Kcals Calculated 0486-1881 Protein: Using Current wt Protein g/k-1.1 Protein Calculated 69-76 Fluid: ml 1587-1863ml 91ml/kcal) Nutritional Problem No current Nutrition Prob Problem altered GI function Etiology possible small bowel obstruction Signs/Symptoms: pt on TPN Malnutrition Alert Protein-Calorie Malnutrition N/A Is there a minimum of two criteria No selected? Query Text:Check all the applicable criteria. A minimum of two criteria are recommended for diagnosis of either severe or non-severe malnutrition. Intervention/Recommendation Comments 1. If continue with TPN, recommend D12%, AA4%, lipid 20 % 200ml at 80ml/hr. it provides 1555kcal, 250CHO (2. 5mg/kg/min), 76g protein. 2. If TF needed, recommend Fibersource HN starting at 20ml/hr for first 24hr. If tolerated, increase to goal rate of 55ml and wean TPN. 3. Monitor nutrition support, wt, skin integrity and labs 3. F/U as high risk in 2-3 days, 11/05-11/06 Expected Outcomes/Goals Expected Outcomes/Goals 1. Pt to meet at least 75% of nutritional needs via nutrition support with tolerance 2. Wt stability, skin to remain intact, labs to approach WNL.
[2017-11-09] MEDS: APTIOM 600 MG PO SCH (18:29)
[2017-11-09] MEDS ORDERED: Diatrizoate Meglumine/Diatri 30 mL Sol ONE ×2 (19:29→20:00)
[2017-11-09] MEDS: D5-0.9%NS 1,000 ML IV SCH (22:33)
[2017-11-10] MEDS: APTIOM 600 MG PO SCH ×2 (01:07→17:11)
[2017-11-10 05:39] LABS: % EOSINOPHILS 10.1 % (0.0-5.0); BASOPHILE ABSOLUTE 0.1 Th/cumm (0-0.2); EOSINOPHILE ABSOLUTE 1.3 Th/cmm (0.1-0.4); HEMOGLOBIN 11.1 gm/dL (12-16)
[2017-11-10] MEDS: Saline 0.65% Nasal Spray NS SCH ×7 (05:42→22:20)
[2017-11-10 05:46] LABS: % BASOPHILS 0.7 % (0.0-2.0); % LYMPHOCYTES 9.5 % (20.0-50.0); % MONOCYTES 12.2 % (2.0-10.0); % NEUTROPHILS 67.5 % (40.0-80.0); HEMATOCRIT 32.6 % (41.0-60); LYMPHOCYTE ABSOLUTE 1.3 Th/cmm (1.5-3.0); MEAN CELL VOLUME 93.8 fl (80-99); MEAN CORPUSCULAR HEMOGLOBIN 31.9 pg (26.0-30.0); MEAN PLATELET VOLUME 8.7 fl; MONOCYTE ABSOLUTE 1.6 Th/cmm (0.3-1.0); PLATELET COUNT 448 Th/cmm (150-400); RED BLOOD COUNT 3.47 Mil/cmm (4.30-5.70); RED CELL DISTRIBUTION WIDTH 14.7 % (11.5-20.0)
[2017-11-10 05:47] LABS: WHITE BLOOD COUNT 13.3 Th/cmm (4.8-10.8)
[2017-11-10 05:49] LABS: ANION GAP 11.6 (7.0-16.0); BUN - UREA NITROGEN 24 mg/dL (7-25); CARBON DIOXIDE 21.2 mEq/L (21.0-31.0); CHLORIDE 114 mEq/L (98-107); CREATININE - SERUM 0.9 mg/dL (0.7-1.3); GFR AFRICAN-AMERICAN > 60.0 ml/min (>90); GFR NON AFRICAN-AMERICAN > 60.0 ml/min; GLUCOSE 98 mg/dL (70-105); POTASSIUM SERUM 3.8 mEq/L (3.5-5.1); SODIUM SERUM 143 mEq/L (136-145)
--- NOTE | 2017-11-10 07:56 | Diagnostic Imaging Report ---
Upper GI with Gastrografin HISTORY: G-tube confirmation COMPARISON: Upper GI exam on [address] abdomen and pelvis on 11/01/2017 FINDINGS: Manager Cosmetic view demonstrates diffuse distended loops of bowel including ill-defined small bowel loops along the right upper abdomen. Postsurgical changes are noted. Percutaneous feeding tube is noted. The following images demonstrate contrast opacification of the stomach and proximal small bowel. Based on images provided, a G-tube leak cannot be excluded. IMPRESSION: There is opacification of the stomach, however, underlying G-tube leakage cannot be excluded. There is also ill-defined distended bowel loops as seen on prior exam. Recommend further assessment of these findings with CT examination.
--- NOTE | 2017-11-10 09:00 | General Progress Note ---
Subjective - Review of Systems Service Date: 11/10/17 Events since last encounter: GT replaced restart feedings Objective - Results Result Diagrams: 11/10/17 05:20 11/10/17 05:20 Recent Labs: Laboratory Last Values WBC 13.3 Th/cmm (4.8-10.8) H 11/10/17 05:20 RBC 3.47 Mil/cmm (4.30-5.70) L 11/10/17 05:20 Hgb 11.1 gm/dL (12-16) L 11/10/17 05:20 Hct 32.6 % (41.0-60) L 11/10/17 05:20 MCV 93.8 fl (80-99) 11/10/17 05:20 MCH 31.9 pg (26.0-30.0) H 11/10/17 05:20 MCHC Differential 34.0 pg (28.0-36.0) 11/10/17 05:20 RDW 14.7 % (11.5-20.0) 11/10/17 05:20 Plt Count 448 Th/cmm (150-400) H 11/10/17 05:20 MPV 8.7 fl 11/10/17 05:20 Neutrophils % 67.5 % (40.0-80.0) 11/10/17 05:20 Band Neutrophils % 3 % (0-10) 11/07/17 04:45 Lymphocytes % 9.5 % (20.0-50.0) L 11/10/17 05:20 Monocytes % 12.2 % (2.0-10.0) H 11/10/17 05:20 Eosinophils % 10.1 % (0.0-5.0) H 11/10/17 05:20 Basophils % 0.7 % (0.0-2.0) 11/10/17 05:20 Neutrophils (Manual) 74 % (40-80) 11/07/17 04:45 Lymphocytes 16 % (20-50) L 11/07/17 04:45 Monocytes 4 % (2-10) 11/07/17 04:45 Eosinophils 3 % (0-5) 11/07/17 04:45 Platelet Estimate ADEQUATE (NORMAL) 11/06/17 05:45 PT 10.4 SECONDS (9.5-11.5) 11/04/17 05:40 INR 1.00 (0.5-1.4) 11/04/17 05:40 PTT (Actin FS) 22.4 SECONDS (26.0-38.0) L 11/04/17 05:40 Sodium 143 mEq/L (136-145) 11/10/17 05:20 Potassium 3.8 mEq/L (3.5-5.1) 11/10/17 05:20 Chloride 114 mEq/L (98-107) H 11/10/17 05:20 Carbon Dioxide 21.2 mEq/L (21.0-31.0) 11/10/17 05:20 Anion Gap 11.6 (7.0-16.0) 11/10/17 05:20 BUN 24 mg/dL (7-25) 11/10/17 05:20 Creatinine 0.9 mg/dL (0.7-1.3) 11/10/17 05:20 Est GFR ( Amer) > 60.0 ml/min (>90) 11/10/17 05:20 Est GFR (Non-Af Amer) > 60.0 ml/min 11/10/17 05:20 BUN/Creatinine Ratio 26.7 11/10/17 05:20 Glucose 98 mg/dL (70-105) 11/10/17 05:20 POC Glucose 97 MG/DL (70 - 105) 11/08/17 13:12 Whole Bld Lactic Acid 1.20 mmol/L (0.60-1.99) 11/01/17 08:49 Calcium 9.0 mg/dL (8.6-10.3) 11/10/17 05:20 Phosphorus 2.3 mg/dL (2.5-5.0) L 11/06/17 05:45 Magnesium 1.8 mg/dL (1.9-2.7) L 11/08/17 04:30 Total Bilirubin 0.6 mg/dL (0.3-1.0) 11/08/17 04:30 AST 18 U/L (13-39) 11/08/17 04:30 ALT 24 U/L (7-52) 11/08/17 04:30 Alkaline Phosphatase 159 U/L (34-104) H 11/08/17 04:30 Ammonia 76 umol/L (16-53) H 11/08/17 04:30 Troponin I 0.03 ng/mL (0.01-0.05) 11/01/17 08:49 B-Natriuretic Peptide 39.7 pg/mL (5.0-100.0) 11/08/17 04:30 Total Protein 5.6 gm/dL (6.0-8.3) L 11/08/17 04:30 Albumin 2.8 gm/dL (4.2-5.5) L 11/08/17 04:30 Globulin 2.8 gm/dL 11/08/17 04:30 Albumin/Globulin Ratio 1.0 (1.0-1.8) 11/08/17 04:30 Prealbumin 30 mg/dL (10-36) 11/03/17 06:20 Triglycerides 196 mg/dL (<150) H 11/02/17 06:13 Cholesterol 158 mg/dL (<200) 11/03/17 06:20 Lipase 38 U/L (11-82) 11/01/17 08:49 TSH 12.56 uIU/ml (0.34-5.60) H 11/01/17 08:49 Urine Source RANDOM 11/01/17 09:20 Urine Color YELLOW 11/01/17 09:20 Urine Clarity HAZY (CLEAR) 11/01/17 09:20 Urine pH 5.5 (4.6 - 8.0) 11/01/17 09:20 Ur Specific [place] >= 1.030 (1.005-1.030) 11/01/17 09:20 Urine Protein 100 mg/dL (NEGATIVE) H 11/01/17 09:20 Urine Glucose (UA) NEGATIVE mg/dL (NEGATIVE) 11/01/17 09:20 Urine Ketones NEGATIVE mg/dL (NEGATIVE) 11/01/17 09:20 Urine Blood TRACE (NEGATIVE) 11/01/17 09:20 Urine Nitrate NEGATIVE (NEGATIVE) 11/01/17 09:20 Urine Bilirubin SMALL (NEGATIVE) H 11/01/17 09:20 Urine Urobilinogen 0.2 E.U./dL (0.2 - 1.0) 11/01/17 09:20 Ur Leukocyte Esterase SMALL (NEGATIVE) H 11/01/17 09:20 Urine RBC 0-2 /hpf (0-5) H 04/28/18 09:20 Urine WBC 50-100 /hpf (0-5) H 11/01/17 09:20 Ur Epithelial Cells MODERATE /lpf (FEW) 11/01/17 09:20 Urine Bacteria MODERATE /hpf (NONE SEEN) H 11/01/17 09:20 - Physical Exam Vitals and I&O: Vital Signs Temp 97.5 F 11/10/17 04:00 Pulse 75 11/10/17 04:00 Resp 18 11/10/17 04:00 BP 116/63 11/10/17 04:00 Pulse Ox 96 11/10/17 04:00 Intake & Output 11/09/17 11/10/17 11/10/17 18:59 06:59 18:59 Intake Total 303.333 100 Output Total 1230 Balance 303.333 100 -1230 Weight (lbs) 93.894 kg Intake: Intake, IV Amount 303.333 100 Levetiracetam 1,000 mg In 103.333 Sodium Chloride 0.9% 100 ml @ 200 mls/hr IV Q12H [facility] Rx#:[id number] Piperacillin Sodium/ 200 100 Tazobact 4.5 gm In Sodium Chloride 0.9% 100 ml @ 100 mls/hr IV Q8HR [facility] Rx #:[id number] Output: Drainage 330 COLOST 300 Left Anterior Abdomen 30 Urine 400 Stool 500 Other: Stool Characteristics Liquid Brown Green Weight Source Estimated Active Medications: Current Medications Acetaminophen (Tylenol) 650 mg PO Q6H PRN PRN Reason: PAIN OR FEVER >100 Acetaminophen/Hydrocodone Bitart ([place] 5mg/325mg) 1 tab PO Q6H PRN PRN Reason: PAIN/DISCOMFORT Stop: 12/31/17 10:05 Albuterol Sulfate (Albuterol 2.5mg/3ml Neb Ud) 2.5 mg HHN Q4HRT PRN PRN Reason: Shortness of Breath Stop: 12/31/17 11:19 Benztropine Mesylate (Cogentin) 1 mg PO BID [facility] Stop: 12/31/17 16:59 Last Admin: 11/09/17 18:26 Dose: 1 mg Brimonidine Tartrate (Alphagan 0.2% Ophth Soln) 1 drop EACH EYE BID [facility] Stop: 12/31/17 16:59 Last Admin: 11/09/17 18:28 Dose: 1 drop Chlorhexidine Gluconate (Peridex) 15 ml MM DAILY [facility] Stop: 01/02/18 09:59 Last Admin: 11/09/17 09:30 Dose: 15 ml Clonazepam (Klonopin) 1 mg PO BID [facility] Stop: 12/31/17 16:59 Last Admin: 11/09/17 18:26 Dose: 1 mg Dorzolamide/Timolol (Cosopt Ophth Soln) 1 drop RIGHT EYE BID [facility] Stop: 12/31/17 16:59 Last Admin: 11/09/17 18:28 Dose: 1 drop Escitalopram Oxalate (Lexapro) 20 mg PO DAILY [facility] PRN Reason: Protocol Stop: 01/01/18 08:59 Last Admin: 11/09/17 12:05 Dose: 20 mg Fluticasone Propionate (Flonase) 2 spr NS DAILY [facility] Stop: 01/01/18 08:59 Last Admin: 11/09/17 12:11 Dose: 2 spr Hydrocortisone (Hydrocortisone 1%) 1 appl TP BID PRN PRN Reason: Rash Stop: 12/31/17 10:05 Last Admin: 11/09/17 18:25 Dose: 1 appl Levetiracetam 1,000 mg/ Sodium (Chloride) 110 mls @ 200 mls/hr IV Q12H [facility] Stop: 01/02/18 20:59 Last Admin: 11/10/17 00:33 Dose: Not Given Levofloxacin (Levaquin Pb) 750 mg in 150 mls @ 100 mls/hr IV Q24HR [facility] Stop: 01/06/18 14:59 Last Admin: 11/09/17 14:16 Dose: 100 mls/hr Piperacillin Sod/Tazobactam (Sod 4.5 gm/ Sodium Chloride) 100 mls @ 100 mls/hr IV Q8HR [facility] Stop: 01/06/18 20:59 Last Admin: 11/10/17 06:02 Dose: 100 mls/hr Dextrose/Sodium Chloride (D5-0.9%Ns) 1,000 mls @ 100 mls/hr IV .Q10H [facility] Stop: 01/08/18 20:22 Last Admin: 11/09/17 22:33 Dose: 100 mls/hr Lamotrigine (Lamictal) 200 mg PO DAILY [facility] Stop: 01/01/18 08:59 Last Admin: 11/09/17 12:07 Dose: 200 mg Lamotrigine (Lamictal) 350 mg PO HS [facility] Stop: 12/31/17 20:59 Last Admin: 11/10/17 00:34 Dose: Not Given Latanoprost (Xalatan 0.005% Ophth Soln) 1 drop EACH EYE HS [facility] Stop: 12/31/17 20:59 Last Admin: 11/10/17 05:47 Dose: Not Given Levothyroxine Sodium (Synthroid) 0.125 mg PO DAILY [facility] Stop: 01/01/18 08:59 Last Admin: 11/09/17 11:59 Dose: 0.125 mg Methotrexate (Methotrexate) 10 mg PO Tu@0730 [facility] PRN Reason: Protocol Stop: 01/03/18 07:29 Last Admin: 11/04/17 07:42 Dose: Not Given Miconazole Nitrate (Micatin 2%) 1 appl TP BID [facility] Stop: 12/31/17 16:59 Last Admin: 11/09/17 18:26 Dose: 1 appl Pantoprazole Sodium (Protonix) 40 mg IVP BID [facility] Stop: 12/31/17 16:59 Last Admin: 11/09/17 18:25 Dose: 40 mg Patient Own Med Onfi (20mg Tablet) 1 PO BID [facility] Stop: 01/01/18 16:59 Last Admin: 11/09/17 18:30 Dose: 1 Patient Own Med (Aptiom 600mg Tablet) 1 PO QPM [facility] Stop: 01/01/18 16:59 Last Admin: 11/10/17 01:07 Dose: Not Given Petrolatum (Vaseline Oint) 1 appl TP BID [facility] Stop: 12/31/17 16:59 Last Admin: 11/09/17 18:28 Dose: 1 appl Quetiapine Fumarate (Seroquel) 25 mg PO BID [facility] PRN Reason: Protocol Stop: 12/31/17 16:59 Last Admin: 11/09/17 18:26 Dose: 25 mg Rifaximin (Xifaxan) 600 mg PO BID [facility] Stop: 12/31/17 16:59 Last Admin: 11/09/17 18:31 Dose: 600 mg Sodium Chloride ([place] Nasal [place]) 1 spr NS QID [facility] Stop: 12/31/17 12:59 Last Admin: 11/10/17 06:01 Dose: Not Given General: Alert, No acute distress Cardiovascular: Regular rate, Normal S1, Normal S2 Lungs: Clear to auscultation Abdomen: Bowel sounds, Soft, Other (G tube and surgical dressing) - Procedures Procedures: Procedures Procedure Code Date BYPASS ILEUM TO CUTANEOUS, OPEN APPROACH [id number] 09/23/17 CHANGE FEEDING DEVICE IN UP INTEST TRACT, MANAGER SOCIAL APPROACH [id number] 11/01/17 CHANGE GASTROSTOMY TUBE 25514 11/01/17 DRAINAGE OF SMALL INTESTINE, ENDO [id number] 11/01/17 EXPLORATION OF ABDOMEN 48900 11/01/17 FREEING OF BOWEL ADHESION 45116 11/01/17 ILEOSTOMY/JEJUNOSTOMY 61469 09/23/17 INSERTION OF ENDOTRACHEAL AIRWAY INTO TRACHEA, VIA OPENING [id number] 09/23/17 INSERTION OF FEEDING DEVICE INTO STOMACH, OPEN APPROACH [id number] 09/23/17 INTRODUCTION OF NUTRITIONAL INTO CENTRAL VEIN, PERC APPROACH [id number] 09/23/17 PARTIAL REMOVAL OF COLON 84445 09/23/17 PLACE GASTROSTOMY TUBE 09418 09/23/17 RELEASE PERITONEUM, OPEN APPROACH [id number] 09/23/17 RELEASE SMALL INTESTINE, OPEN APPROACH [id number] 11/01/17 REPAIR SMALL INTESTINE, OPEN APPROACH [id number] 11/01/17 RESECTION OF LARGE INTESTINE, OPEN APPROACH [id number] 09/23/17 RESPIRATORY VENTILATION, LESS THAN 24 CONSECUTIVE HOURS [id number] 09/23/17 SUTURE SMALL INTESTINE 67737 11/01/17 Assessment/Plan - Problem List Patient Problems: All Active Problems GASTRIC FEEDING TUBE DISLODGED (Acute) Nutritional Asmnt/Malnutr-PDOC - Dietary Evaluation Malnutrition Findings (Please click <Entered> for more info): Nutritional Asmnt/Malnutrition Start: 11/03/17 14: 15 Text: Status: Complete Freq: Document 11/03/17 14:15 GONZALO (Rec: 11/03/17 14:45 LCHENG [email or web address]) Nutritional Asmnt/Malnutrition Patient General Information Nutritional Screening High Risk Consult Diagnosis UTI Pertinent Medical Hx/Surgical Hx MR, cerebral palsy, seizure, colectomy, generalized contractures, ileostomy Subjective Information Consult received for low kenny. Pt had gtube replacement this morning. Pt now on TPN. May start tube feeding if small bowel series does not show bowel obstruction per MD note. Current Diet Order/ Nutrition Support TPN D10% A4.25%, lipid 20% 150ml at 50ml/hr providing 912kcal, 51g protein Pertinent Medications D5-0.9%ns, novolog, synthroid, k phos Pertinent Labs 11/03 cl 113, Bun 45, glucose 100, POC 92 Nutritional Hx/Data Height 1.78 m Height (Calculated Centimeters) 177.8 Current Weight (lbs) 68.492 kg Weight (Calculated Kilograms) 68.5 Weight (Calculated Grams) 90118.4 [place] Body Weight 166 Body Mass Index (BMI) 21.7 Weight Status Approriate GI Symptoms GI Symptoms None Last BM 0 Difficult in: None Skin Integrity/Comment: rash to right and left foot, scar to abdomen Current %PO Good (75-100%) Estimated Nutritional Goals BEE in Kcals: Using Current wt Calories/Kcals/Kg 23-27 Kcals Calculated 7012-3162 Protein: Using Current wt Protein g/k-1.1 Protein Calculated 69-76 Fluid: ml 1587-1863ml 91ml/kcal) Nutritional Problem No current Nutrition Prob Problem altered GI function Etiology possible small bowel obstruction Signs/Symptoms: pt on TPN Malnutrition Alert Protein-Calorie Malnutrition N/A Is there a minimum of two criteria No selected? Query Text:Check all the applicable criteria. A minimum of two criteria are recommended for diagnosis of either severe or non-severe malnutrition. Intervention/Recommendation Comments 1. If continue with TPN, recommend D12%, AA4%, lipid 20 % 200ml at 80ml/hr. it provides 1555kcal, 250CHO (2. 5mg/kg/min), 76g protein. 2. If TF needed, recommend Fibersource HN starting at 20ml/hr for first 24hr. If tolerated, increase to goal rate of 55ml and wean TPN. 3. Monitor nutrition support, wt, skin integrity and labs 3. F/U as high risk in 2-3 days, 5/-5/ Expected Outcomes/Goals Expected Outcomes/Goals 1. Pt to meet at least 75% of nutritional needs via nutrition support with tolerance 2. Wt stability, skin to remain intact, labs to approach WNL.
[2017-11-10] MEDS: Benztropine 1 MG TAB PO SCH ×2 (10:00→17:10)
[2017-11-10] MEDS: Chlorhexidine Gluconate 0.12% 480mL Bottle MM SCH (10:00)
[2017-11-10] MEDS: Fluticasone Propionate 0.05mg/Actuation 16gm Nasal Spray NS SCH (10:02)
[2017-11-10] MEDS: Levothyroxine 0.125 Mg Tab PO SCH (10:02)
[2017-11-10] MEDS: Multivitamin w/ Minerals Tab PO SCH (10:03)
[2017-11-10] MEDS: Miconazole Nitrate 2% Cream 30gm TP SCH ×2 (10:03→17:11)
[2017-11-10] MEDS: ONFI 20 MG PO SCH ×2 (10:03→17:11)
[2017-11-10] MEDS: Petrolatum (White) Oint 0.6 Oz Tube TP SCH ×2 (10:04→17:12)
[2017-11-10] MEDS: D5-0.9%NS 1,000 ML IV SCH ×2 (10:09→15:38)
[2017-11-10] MEDS ORDERED: Diatrizoate Meglumine/Diatri 30 mL Sol PO ONE (13:00)
--- NOTE | 2017-11-10 13:01 | GI Progress Note ---
Subjective - Review of Systems Subjective: HAD SBO SURGERY PULLED OUT GT BUT WAS REPLACED BY STAFF Objective - Results Result Diagrams: 11/10/17 05:20 11/10/17 05:20 Recent Labs: Laboratory Last Values WBC 13.3 Th/cmm (4.8-10.8) H 11/10/17 05:20 RBC 3.47 Mil/cmm (4.30-5.70) L 11/10/17 05:20 Hgb 11.1 gm/dL (12-16) L 11/10/17 05:20 Hct 32.6 % (41.0-60) L 11/10/17 05:20 MCV 93.8 fl (80-99) 11/10/17 05:20 MCH 31.9 pg (26.0-30.0) H 11/10/17 05:20 MCHC Differential 34.0 pg (28.0-36.0) 11/10/17 05:20 RDW 14.7 % (11.5-20.0) 11/10/17 05:20 Plt Count 448 Th/cmm (150-400) H 11/10/17 05:20 MPV 8.7 fl 11/10/17 05:20 Neutrophils % 67.5 % (40.0-80.0) 11/10/17 05:20 Band Neutrophils % 3 % (0-10) 11/07/17 04:45 Lymphocytes % 9.5 % (20.0-50.0) L 11/10/17 05:20 Monocytes % 12.2 % (2.0-10.0) H 11/10/17 05:20 Eosinophils % 10.1 % (0.0-5.0) H 11/10/17 05:20 Basophils % 0.7 % (0.0-2.0) 11/10/17 05:20 Neutrophils (Manual) 74 % (40-80) 11/07/17 04:45 Lymphocytes 16 % (20-50) L 11/07/17 04:45 Monocytes 4 % (2-10) 11/07/17 04:45 Eosinophils 3 % (0-5) 11/07/17 04:45 Platelet Estimate ADEQUATE (NORMAL) 11/06/17 05:45 PT 10.4 SECONDS (9.5-11.5) 11/04/17 05:40 INR 1.00 (0.5-1.4) 11/04/17 05:40 PTT (Actin FS) 22.4 SECONDS (26.0-38.0) L 11/04/17 05:40 Sodium 143 mEq/L (136-145) 11/10/17 05:20 Potassium 3.8 mEq/L (3.5-5.1) 11/10/17 05:20 Chloride 114 mEq/L (98-107) H 11/10/17 05:20 Carbon Dioxide 21.2 mEq/L (21.0-31.0) 11/10/17 05:20 Anion Gap 11.6 (7.0-16.0) 11/10/17 05:20 BUN 24 mg/dL (7-25) 11/10/17 05:20 Creatinine 0.9 mg/dL (0.7-1.3) 11/10/17 05:20 Est GFR ( Amer) > 60.0 ml/min (>90) 11/10/17 05:20 Est GFR (Non-Af Amer) > 60.0 ml/min 11/10/17 05:20 BUN/Creatinine Ratio 26.7 11/10/17 05:20 Glucose 98 mg/dL (70-105) 11/10/17 05:20 POC Glucose 97 MG/DL (70 - 105) 11/08/17 13:12 Whole Bld Lactic Acid 1.20 mmol/L (0.60-1.99) 11/01/17 08:49 Calcium 9.0 mg/dL (8.6-10.3) 11/10/17 05:20 Phosphorus 2.3 mg/dL (2.5-5.0) L 11/06/17 05:45 Magnesium 1.8 mg/dL (1.9-2.7) L 11/08/17 04:30 Total Bilirubin 0.6 mg/dL (0.3-1.0) 11/08/17 04:30 AST 18 U/L (13-39) 11/08/17 04:30 ALT 24 U/L (7-52) 11/08/17 04:30 Alkaline Phosphatase 159 U/L (34-104) H 11/08/17 04:30 Ammonia 76 umol/L (16-53) H 11/08/17 04:30 Troponin I 0.03 ng/mL (0.01-0.05) 11/01/17 08:49 B-Natriuretic Peptide 39.7 pg/mL (5.0-100.0) 11/08/17 04:30 Total Protein 5.6 gm/dL (6.0-8.3) L 11/08/17 04:30 Albumin 2.8 gm/dL (4.2-5.5) L 11/08/17 04:30 Globulin 2.8 gm/dL 11/08/17 04:30 Albumin/Globulin Ratio 1.0 (1.0-1.8) 11/08/17 04:30 Prealbumin 30 mg/dL (10-36) 11/03/17 06:20 Triglycerides 196 mg/dL (<150) H 11/02/17 06:13 Cholesterol 158 mg/dL (<200) 11/03/17 06:20 Lipase 38 U/L (11-82) 11/01/17 08:49 TSH 12.56 uIU/ml (0.34-5.60) H 11/01/17 08:49 Urine Source RANDOM 11/01/17 09:20 Urine Color YELLOW 11/01/17 09:20 Urine Clarity HAZY (CLEAR) 11/01/17 09:20 Urine pH 5.5 (4.6 - 8.0) 11/01/17 09:20 Ur Specific [place] >= 1.030 (1.005-1.030) 11/01/17 09:20 Urine Protein 100 mg/dL (NEGATIVE) H 11/01/17 09:20 Urine Glucose (UA) NEGATIVE mg/dL (NEGATIVE) 11/01/17 09:20 Urine Ketones NEGATIVE mg/dL (NEGATIVE) 11/01/17 09:20 Urine Blood TRACE (NEGATIVE) 11/01/17 09:20 Urine Nitrate NEGATIVE (NEGATIVE) 11/01/17 09:20 Urine Bilirubin SMALL (NEGATIVE) H 11/01/17 09:20 Urine Urobilinogen 0.2 E.U./dL (0.2 - 1.0) 11/01/17 09:20 Ur Leukocyte Esterase SMALL (NEGATIVE) H 11/01/17 09:20 Urine RBC 0-2 /hpf (0-5) H 11/01/17 09:20 Urine WBC 50-100 /hpf (0-5) H 11/01/17 09:20 Ur Epithelial Cells MODERATE /lpf (FEW) 11/01/17 09:20 Urine Bacteria MODERATE /hpf (NONE SEEN) H 11/01/17 09:20 - Physical Exam Vitals and I&O: Vital Signs Temp 97.5 F 11/10/17 04:00 Pulse 79 11/10/17 06:28 Resp 18 11/10/17 10:04 BP 116/63 11/10/17 04:00 Pulse Ox 94 11/10/17 06:28 Intake & Output 11/09/17 11/10/17 11/10/17 18:59 06:59 18:59 Intake Total 310.528 811 4499 Output Total 1230 Balance 310.000 100 -230 Weight (lbs) 93.894 kg Intake: Intake, IV Amount 310.527 955 2843 D5-0.9%Ns 1,000 ml @ 100 1000 mls/hr IV .Q10H [facility] Rx#: [id number] Levetiracetam 1,000 mg In 110.000 Sodium Chloride 0.9% 100 ml @ 200 mls/hr IV Q12H [facility] Rx#:[id number] Piperacillin Sodium/ 200 100 Tazobact 4.5 gm In Sodium Chloride 0.9% 100 ml @ 100 mls/hr IV Q8HR [facility] Rx #:[id number] Output: Drainage 330 COLOST 300 Left Anterior Abdomen 30 Urine 400 Stool 500 Other: Stool Characteristics Liquid Brown Green Weight Source Estimated Active Medications: Current Medications Acetaminophen (Tylenol) 650 mg PO Q6H PRN PRN Reason: PAIN OR FEVER >100 Acetaminophen/Hydrocodone Bitart ([place] 5mg/325mg) 1 tab PO Q6H PRN PRN Reason: PAIN/DISCOMFORT Stop: 12/31/17 10:05 Albuterol Sulfate (Albuterol 2.5mg/3ml Neb Ud) 2.5 mg HHN Q4HRT PRN PRN Reason: Shortness of Breath Stop: 12/31/17 11:19 Benztropine Mesylate (Cogentin) 1 mg PO BID [facility] Stop: 12/31/17 16:59 Last Admin: 11/10/17 10:00 Dose: Not Given Brimonidine Tartrate (Alphagan 0.2% Ophth Soln) 1 drop EACH EYE BID [facility] Stop: 12/31/17 16:59 Last Admin: 11/10/17 10:00 Dose: 1 drop Chlorhexidine Gluconate (Peridex) 15 ml MM DAILY [facility] Stop: 01/02/18 09:59 Last Admin: 11/10/17 10:00 Dose: 15 ml Clonazepam (Klonopin) 1 mg PO BID [facility] Stop: 12/31/17 16:59 Last Admin: 11/10/17 10:01 Dose: Not Given Dorzolamide/Timolol (Cosopt Ophth Soln) 1 drop RIGHT EYE BID [facility] Stop: 12/31/17 16:59 Last Admin: 11/10/17 10:01 Dose: 1 drop Escitalopram Oxalate (Lexapro) 20 mg PO DAILY [facility] PRN Reason: Protocol Stop: 01/01/18 08:59 Last Admin: 11/10/17 10:01 Dose: Not Given Fluticasone Propionate (Flonase) 2 spr NS DAILY [facility] Stop: 01/01/18 08:59 Last Admin: 11/10/17 10:02 Dose: 2 spr Hydrocortisone (Hydrocortisone 1%) 1 appl TP BID PRN PRN Reason: Rash Stop: 12/31/17 10:05 Last Admin: 11/09/17 18:25 Dose: 1 appl Levetiracetam 1,000 mg/ Sodium (Chloride) 110 mls @ 200 mls/hr IV Q12H [facility] Stop: 01/02/18 20:59 Last Admin: 11/10/17 10:22 Dose: 200 mls/hr Levofloxacin (Levaquin Pb) 750 mg in 150 mls @ 100 mls/hr IV Q24HR [facility] Stop: 01/06/18 14:59 Last Admin: 11/09/17 14:16 Dose: 100 mls/hr Piperacillin Sod/Tazobactam (Sod 4.5 gm/ Sodium Chloride) 100 mls @ 100 mls/hr IV Q8HR [facility] Stop: 01/06/18 20:59 Last Admin: 11/10/17 06:02 Dose: 100 mls/hr Dextrose/Sodium Chloride (D5-0.9%Ns) 1,000 mls @ 100 mls/hr IV .Q10H [facility] Stop: 01/08/18 20:22 Last Admin: 11/10/17 10:09 Dose: 100 mls/hr Lamotrigine (Lamictal) 200 mg PO DAILY [facility] Stop: 01/01/18 08:59 Last Admin: 11/10/17 10:02 Dose: Not Given Lamotrigine (Lamictal) 350 mg PO HS [facility] Stop: 12/31/17 20:59 Last Admin: 11/10/17 00:34 Dose: Not Given Latanoprost (Xalatan 0.005% Ophth Soln) 1 drop EACH EYE HS [facility] Stop: 12/31/17 20:59 Last Admin: 11/10/17 05:47 Dose: Not Given Levothyroxine Sodium (Synthroid) 0.125 mg PO DAILY [facility] Stop: 01/01/18 08:59 Last Admin: 11/10/17 10:02 Dose: Not Given Methotrexate (Methotrexate) 10 mg PO Tu@0730 [facility] PRN Reason: Protocol Stop: 01/03/18 07:29 Last Admin: 11/04/17 07:42 Dose: Not Given Miconazole Nitrate (Micatin 2%) 1 appl TP BID [facility] Stop: 12/31/17 16:59 Last Admin: 11/10/17 10:03 Dose: 1 appl Pantoprazole Sodium (Protonix) 40 mg IVP BID [facility] Stop: 12/31/17 16:59 Last Admin: 11/10/17 11:18 Dose: 40 mg Patient Own Med Onfi (20mg Tablet) 1 PO BID [facility] Stop: 01/01/18 16:59 Last Admin: 11/10/17 10:03 Dose: Not Given Patient Own Med (Aptiom 600mg Tablet) 1 PO QPM [facility] Stop: 01/01/18 16:59 Last Admin: 11/10/17 01:07 Dose: Not Given Petrolatum (Vaseline Oint) 1 appl TP BID [facility] Stop: 12/31/17 16:59 Last Admin: 11/10/17 10:04 Dose: 1 appl Quetiapine Fumarate (Seroquel) 25 mg PO BID [facility] PRN Reason: Protocol Stop: 12/31/17 16:59 Last Admin: 11/10/17 10:04 Dose: Not Given Rifaximin (Xifaxan) 600 mg PO BID [facility] Stop: 12/31/17 16:59 Last Admin: 11/10/17 10:04 Dose: Not Given Sodium Chloride ([place] Nasal [place]) 1 spr NS QID [facility] Stop: 12/31/17 12:59 Last Admin: 11/10/17 10:04 Dose: 1 spr General: Alert, No acute distress Cardiovascular: Regular rate, Normal S1, Normal S2 Lungs: Clear to auscultation Abdomen: Bowel sounds, Soft, Other (G tube and surgical dressing) - Procedures Procedures: Procedures Procedure Code Date BYPASS ILEUM TO CUTANEOUS, OPEN APPROACH [id number] 09/23/17 CHANGE FEEDING DEVICE IN UP INTEST TRACT, PASTE MIXER APPROACH [id number] 11/01/17 CHANGE GASTROSTOMY TUBE 26420 11/01/17 DRAINAGE OF SMALL INTESTINE, ENDO [id number] 11/01/17 EXPLORATION OF ABDOMEN 81837 11/01/17 FREEING OF BOWEL ADHESION 74664 11/01/17 ILEOSTOMY/JEJUNOSTOMY 75562 09/23/17 INSERTION OF ENDOTRACHEAL AIRWAY INTO TRACHEA, VIA OPENING [id number] 09/23/17 INSERTION OF FEEDING DEVICE INTO STOMACH, OPEN APPROACH [id number] 09/23/17 INTRODUCTION OF NUTRITIONAL INTO CENTRAL VEIN, PERC APPROACH [id number] 09/23/17 PARTIAL REMOVAL OF COLON 08131 09/23/[address] GASTROSTOMY TUBE 30381 09/23/17 RELEASE PERITONEUM, OPEN APPROACH [id number] 09/23/17 RELEASE SMALL INTESTINE, OPEN APPROACH [id number] 11/01/17 REPAIR SMALL INTESTINE, OPEN APPROACH [id number] 11/01/17 RESECTION OF LARGE INTESTINE, OPEN APPROACH [id number] 09/23/17 RESPIRATORY VENTILATION, LESS THAN 24 CONSECUTIVE HOURS [id number] 09/23/17 SUTURE SMALL INTESTINE 17409 11/01/17 Assessment/Plan - Problem List Patient Problems: All Active Problems GASTRIC FEEDING TUBE DISLODGED (Acute) - Assessment Assessment: 62 YO MALE WITH MALFUNCTION G TUBE DYSPGHAGIA S/P GT CHANGE AND SBO SURGERY GT WAS REPLACED SINCE PT PULLED IT OUT 1.CONT POST OP CARE 2.UGI SERIES 3.ABD BINDER
--- NOTE | 2017-11-10 13:27 | Infectious Disease Prog Note ---
Infectious Disease Subjective - Review of Systems Service Date: 11/10/17 Subjective: no fever. Pulled out hte G tube. Infectious Disease Objective - Results Result Diagrams: 11/10/17 05:20 11/10/17 05:20 Recent Labs: Laboratory Last Values WBC 13.3 Th/cmm (4.8-10.8) H 11/10/17 05:20 RBC 3.47 Mil/cmm (4.30-5.70) L 11/10/17 05:20 Hgb 11.1 gm/dL (12-16) L 11/10/17 05:20 Hct 32.6 % (41.0-60) L 11/10/17 05:20 MCV 93.8 fl (80-99) 11/10/17 05:20 MCH 31.9 pg (26.0-30.0) H 11/10/17 05:20 MCHC Differential 34.0 pg (28.0-36.0) 11/10/17 05:20 RDW 14.7 % (11.5-20.0) 11/10/17 05:20 Plt Count 448 Th/cmm (150-400) H 11/10/17 05:20 MPV 8.7 fl 11/10/17 05:20 Neutrophils % 67.5 % (40.0-80.0) 11/10/17 05:20 Band Neutrophils % 3 % (0-10) 11/07/17 04:45 Lymphocytes % 9.5 % (20.0-50.0) L 11/10/17 05:20 Monocytes % 12.2 % (2.0-10.0) H 11/10/17 05:20 Eosinophils % 10.1 % (0.0-5.0) H 11/10/17 05:20 Basophils % 0.7 % (0.0-2.0) 11/10/17 05:20 Neutrophils (Manual) 74 % (40-80) 11/07/17 04:45 Lymphocytes 16 % (20-50) L 11/07/17 04:45 Monocytes 4 % (2-10) 11/07/17 04:45 Eosinophils 3 % (0-5) 11/07/17 04:45 Platelet Estimate ADEQUATE (NORMAL) 11/06/17 05:45 PT 10.4 SECONDS (9.5-11.5) 11/04/17 05:40 INR 1.00 (0.5-1.4) 11/04/17 05:40 PTT (Actin FS) 22.4 SECONDS (26.0-38.0) L 11/04/17 05:40 Sodium 143 mEq/L (136-145) 11/10/17 05:20 Potassium 3.8 mEq/L (3.5-5.1) 11/10/17 05:20 Chloride 114 mEq/L (98-107) H 11/10/17 05:20 Carbon Dioxide 21.2 mEq/L (21.0-31.0) 11/10/17 05:20 Anion Gap 11.6 (7.0-16.0) 11/10/17 05:20 BUN 24 mg/dL (7-25) 11/10/17 05:20 Creatinine 0.9 mg/dL (0.7-1.3) 11/10/17 05:20 Est GFR ( Amer) > 60.0 ml/min (>90) 11/10/17 05:20 Est GFR (Non-Af Amer) > 60.0 ml/min 11/10/17 05:20 BUN/Creatinine Ratio 26.7 11/10/17 05:20 Glucose 98 mg/dL (70-105) 11/10/17 05:20 POC Glucose 97 MG/DL (70 - 105) 11/08/17 13:12 Whole Bld Lactic Acid 1.20 mmol/L (0.60-1.99) 11/01/17 08:49 Calcium 9.0 mg/dL (8.6-10.3) 11/10/17 05:20 Phosphorus 2.3 mg/dL (2.5-5.0) L 11/06/17 05:45 Magnesium 1.8 mg/dL (1.9-2.7) L 11/08/17 04:30 Total Bilirubin 0.6 mg/dL (0.3-1.0) 11/08/17 04:30 AST 18 U/L (13-39) 11/08/17 04:30 ALT 24 U/L (7-52) 11/08/17 04:30 Alkaline Phosphatase 159 U/L (34-104) H 11/08/17 04:30 Ammonia 76 umol/L (16-53) H 11/08/17 04:30 Troponin I 0.03 ng/mL (0.01-0.05) 11/01/17 08:49 B-Natriuretic Peptide 39.7 pg/mL (5.0-100.0) 11/08/17 04:30 Total Protein 5.6 gm/dL (6.0-8.3) L 11/08/17 04:30 Albumin 2.8 gm/dL (4.2-5.5) L 11/08/17 04:30 Globulin 2.8 gm/dL 11/08/17 04:30 Albumin/Globulin Ratio 1.0 (1.0-1.8) 11/08/17 04:30 Prealbumin 30 mg/dL (10-36) 11/03/17 06:20 Triglycerides 196 mg/dL (<150) H 11/02/17 06:13 Cholesterol 158 mg/dL (<200) 11/03/17 06:20 Lipase 38 U/L (11-82) 11/01/17 08:49 TSH 12.56 uIU/ml (0.34-5.60) H 11/01/17 08:49 Urine Source RANDOM 11/01/17 09:20 Urine Color YELLOW 11/01/17 09:20 Urine Clarity HAZY (CLEAR) 11/01/17 09:20 Urine pH 5.5 (4.6 - 8.0) 11/01/17 09:20 Ur Specific [place] >= 1.030 (1.005-1.030) 11/01/17 09:20 Urine Protein 100 mg/dL (NEGATIVE) H 11/01/17 09:20 Urine Glucose (UA) NEGATIVE mg/dL (NEGATIVE) 11/01/17 09:20 Urine Ketones NEGATIVE mg/dL (NEGATIVE) 11/01/17 09:20 Urine Blood TRACE (NEGATIVE) 11/01/17 09:20 Urine Nitrate NEGATIVE (NEGATIVE) 11/01/17 09:20 Urine Bilirubin SMALL (NEGATIVE) H 11/01/17 09:20 Urine Urobilinogen 0.2 E.U./dL (0.2 - 1.0) 11/01/17 09:20 Ur Leukocyte Esterase SMALL (NEGATIVE) H 11/01/17 09:20 Urine RBC 0-2 /hpf (0-5) H 11/01/17 09:20 Urine WBC 50-100 /hpf (0-5) H 11/01/17 09:20 Ur Epithelial Cells MODERATE /lpf (FEW) 11/01/17 09:20 Urine Bacteria MODERATE /hpf (NONE SEEN) H 11/01/17 09:20 - Physical Exam Vitals and I&O: Vital Signs Temp 97.5 F 11/10/17 04:00 Pulse 79 11/10/17 06:28 Resp 18 11/10/17 10:04 BP 116/63 11/10/17 04:00 Pulse Ox 94 11/10/17 06:28 Intake & Output 11/09/17 11/10/17 11/10/17 18:59 06:59 18:59 Intake Total 310.952 245 8853 Output Total 1230 Balance 310.000 100 -230 Weight (lbs) 93.894 kg Intake: Intake, IV Amount 310.525 417 5384 D5-0.9%Ns 1,000 ml @ 100 1000 mls/hr IV .Q10H [facility] Rx#: [id number] Levetiracetam 1,000 mg In 110.000 Sodium Chloride 0.9% 100 ml @ 200 mls/hr IV Q12H [facility] Rx#:[id number] Piperacillin Sodium/ 200 100 Tazobact 4.5 gm In Sodium Chloride 0.9% 100 ml @ 100 mls/hr IV Q8HR [facility] Rx #:[id number] Output: Drainage 330 COLOST 300 Left Anterior Abdomen 30 Urine 400 Stool 500 Other: Stool Characteristics Liquid Brown Green Weight Source Estimated Active Medications: Current Medications Acetaminophen (Tylenol) 650 mg PO Q6H PRN PRN Reason: PAIN OR FEVER >100 Acetaminophen/Hydrocodone Bitart (Eure 5mg/325mg) 1 tab PO Q6H PRN PRN Reason: PAIN/DISCOMFORT Stop: 12/31/17 10:05 Albuterol Sulfate (Albuterol 2.5mg/3ml Neb Ud) 2.5 mg HHN Q4HRT PRN PRN Reason: Shortness of Breath Stop: 12/31/17 11:19 Benztropine Mesylate (Cogentin) 1 mg PO BID [facility] Stop: 12/31/17 16:59 Last Admin: 11/10/17 10:00 Dose: Not Given Brimonidine Tartrate (Alphagan 0.2% Ophth Soln) 1 drop EACH EYE BID [facility] Stop: 12/31/17 16:59 Last Admin: 11/10/17 10:00 Dose: 1 drop Chlorhexidine Gluconate (Peridex) 15 ml MM DAILY [facility] Stop: 01/02/18 09:59 Last Admin: 11/10/17 10:00 Dose: 15 ml Clonazepam (Klonopin) 1 mg PO BID [facility] Stop: 12/31/17 16:59 Last Admin: 11/10/17 10:01 Dose: Not Given Dorzolamide/Timolol (Cosopt Ophth Soln) 1 drop RIGHT EYE BID [facility] Stop: 12/31/17 16:59 Last Admin: 11/10/17 10:01 Dose: 1 drop Escitalopram Oxalate (Lexapro) 20 mg PO DAILY [facility] PRN Reason: Protocol Stop: 01/01/18 08:59 Last Admin: 11/10/17 10:01 Dose: Not Given Fluticasone Propionate (Flonase) 2 spr NS DAILY [facility] Stop: 01/01/18 08:59 Last Admin: 11/10/17 10:02 Dose: 2 spr Hydrocortisone (Hydrocortisone 1%) 1 appl TP BID PRN PRN Reason: Rash Stop: 12/31/17 10:05 Last Admin: 11/09/17 18:25 Dose: 1 appl Levetiracetam 1,000 mg/ Sodium (Chloride) 110 mls @ 200 mls/hr IV Q12H [facility] Stop: 01/02/18 20:59 Last Admin: 11/10/17 10:22 Dose: 200 mls/hr Levofloxacin (Levaquin Pb) 750 mg in 150 mls @ 100 mls/hr IV Q24HR [facility] Stop: 01/06/18 14:59 Last Admin: 11/09/17 14:16 Dose: 100 mls/hr Piperacillin Sod/Tazobactam (Sod 4.5 gm/ Sodium Chloride) 100 mls @ 100 mls/hr IV Q8HR [facility] Stop: 01/06/18 20:59 Last Admin: 11/10/17 06:02 Dose: 100 mls/hr Dextrose/Sodium Chloride (D5-0.9%Ns) 1,000 mls @ 100 mls/hr IV .Q10H [facility] Stop: 01/08/18 20:22 Last Admin: 11/10/17 10:09 Dose: 100 mls/hr Lamotrigine (Lamictal) 200 mg PO DAILY [facility] Stop: 01/01/18 08:59 Last Admin: 11/10/17 10:02 Dose: Not Given Lamotrigine (Lamictal) 350 mg PO HS [facility] Stop: 12/31/17 20:59 Last Admin: 11/10/17 00:34 Dose: Not Given Latanoprost (Xalatan 0.005% Ophth Soln) 1 drop EACH EYE HS [facility] Stop: 12/31/17 20:59 Last Admin: 11/10/17 05:47 Dose: Not Given Levothyroxine Sodium (Synthroid) 0.125 mg PO DAILY [facility] Stop: 01/01/18 08:59 Last Admin: 11/10/17 10:02 Dose: Not Given Methotrexate (Methotrexate) 10 mg PO Tu@0730 [facility] PRN Reason: Protocol Stop: 01/03/18 07:29 Last Admin: 11/04/17 07:42 Dose: Not Given Miconazole Nitrate (Micatin 2%) 1 appl TP BID [facility] Stop: 12/31/17 16:59 Last Admin: 11/10/17 10:03 Dose: 1 appl Pantoprazole Sodium (Protonix) 40 mg IVP BID [facility] Stop: 12/31/17 16:59 Last Admin: 11/10/17 11:18 Dose: 40 mg Patient Own Med Onfi (20mg Tablet) 1 PO BID [facility] Stop: 01/01/18 16:59 Last Admin: 11/10/17 10:03 Dose: Not Given Patient Own Med (Aptiom 600mg Tablet) 1 PO QPM [facility] Stop: 01/01/18 16:59 Last Admin: 11/10/17 01:07 Dose: Not Given Petrolatum (Vaseline Oint) 1 appl TP BID [facility] Stop: 12/31/17 16:59 Last Admin: 11/10/17 10:04 Dose: 1 appl Quetiapine Fumarate (Seroquel) 25 mg PO BID [facility] PRN Reason: Protocol Stop: 12/31/17 16:59 Last Admin: 11/10/17 10:04 Dose: Not Given Rifaximin (Xifaxan) 600 mg PO BID [facility] Stop: 12/31/17 16:59 Last Admin: 05/07/18 10:04 Dose: Not Given Sodium Chloride ([place] Nasal [place]) 1 spr NS QID [facility] Stop: 12/31/17 12:59 Last Admin: 11/10/17 10:04 Dose: 1 spr General: no acute distress, cachectic HEENT: atraumatic, normocephalic, PERRLA, EOMI Neck: supple, no thyromegaly Cardiovascular: S1S2, regular Lungs: clear to auscultation bilaterally, clear to percussion Abdomen: soft, no tender, no distended Extremities: no cyanosis, no clubbing, no edema Neurological: awake, alert, oriented Skin: intact - Procedures Procedures: Procedures Procedure Code Date BYPASS ILEUM TO CUTANEOUS, OPEN APPROACH [id number] 09/23/17 CHANGE FEEDING DEVICE IN UP INTEST TRACT, PAI GOW MANAGER APPROACH [id number] 11/01/17 CHANGE GASTROSTOMY TUBE 96084 11/01/17 DRAINAGE OF SMALL INTESTINE, ENDO [id number] 11/01/17 EXPLORATION OF ABDOMEN 66420 11/01/17 FREEING OF BOWEL ADHESION 97519 11/01/17 ILEOSTOMY/JEJUNOSTOMY 95936 09/23/17 INSERTION OF ENDOTRACHEAL AIRWAY INTO TRACHEA, VIA OPENING [id number] 09/23/17 INSERTION OF FEEDING DEVICE INTO STOMACH, OPEN APPROACH [id number] 09/23/17 INTRODUCTION OF NUTRITIONAL INTO CENTRAL VEIN, PERC APPROACH [id number] 09/23/17 PARTIAL REMOVAL OF COLON 17656 09/23/[address] GASTROSTOMY TUBE 06821 09/23/17 RELEASE PERITONEUM, OPEN APPROACH [id number] 09/23/17 RELEASE SMALL INTESTINE, OPEN APPROACH [id number] 11/01/17 REPAIR SMALL INTESTINE, OPEN APPROACH [id number] 11/01/17 RESECTION OF LARGE INTESTINE, OPEN APPROACH [id number] 09/23/17 RESPIRATORY VENTILATION, LESS THAN 24 CONSECUTIVE HOURS [id number] 09/23/17 SUTURE SMALL INTESTINE 83867 11/01/17 Infectious Disease Assmt/Plan - Problem List Patient Problems: All Active Problems GASTRIC FEEDING TUBE DISLODGED (Acute) - Assessment Assessment: 1. Leukocytosis. Improving. 2. Perironitis. 3. Cerebral palsy. 4. H/o seizure disorder. 5. Candiduria. - Plan Plan: continue zosyn, and levaquin. Nutritional Asmnt/Malnutr-PDOC - Dietary Evaluation Malnutrition Findings (Please click <Entered> for more info): Nutritional Asmnt/Malnutrition Start: 11/03/17 14: 15 Text: Status: Complete Freq: Document 11/03/17 14:15 ELGIN (Rec: 11/03/17 14:45 [email or web address] [email or web address]) Nutritional Asmnt/Malnutrition Patient General Information Nutritional Screening High Risk Consult Diagnosis UTI Pertinent Medical Hx/Surgical Hx MR, cerebral palsy, seizure, colectomy, generalized contractures, ileostomy Subjective Information Consult received for freddy cox. Pt had gtube replacement this morning. Pt now on TPN. May start tube feeding if small bowel series does not show bowel obstruction per MD note. Current Diet Order/ Nutrition Support TPN D10% A4.25%, lipid 20% 150ml at 50ml/hr providing 912kcal, 51g protein Pertinent Medications D5-0.9%ns, novolog, synthroid, k phos Pertinent Labs 11/03 cl 113, Bun 45, glucose 100, POC 92 Nutritional Hx/Data Height 1.78 m Height (Calculated Centimeters) 177.8 Current Weight (lbs) 68.492 kg Weight (Calculated Kilograms) 68.5 Weight (Calculated Grams) 79557.4 Dennis Body Weight 166 Body Mass Index (BMI) 21.7 Weight Status Approriate GI Symptoms GI Symptoms None Last BM 0 Difficult in: None Skin Integrity/Comment: rash to right and left foot, scar to abdomen Current %PO Good (75-100%) Estimated Nutritional Goals BEE in Kcals: Using Current wt Calories/Kcals/Kg 23-27 Kcals Calculated 3953-4639 Protein: Using Current wt Protein g/k-1.1 Protein Calculated 69-76 Fluid: ml 1587-1863ml 91ml/kcal) Nutritional Problem No current Nutrition Prob Problem altered GI function Etiology possible small bowel obstruction Signs/Symptoms: pt on TPN Malnutrition Alert Protein-Calorie Malnutrition N/A Is there a minimum of two criteria No selected? Query Text:Check all the applicable criteria. A minimum of two criteria are recommended for diagnosis of either severe or non-severe malnutrition. Intervention/Recommendation Comments 1. If continue with TPN, recommend D12%, AA4%, lipid 20 % 200ml at 80ml/hr. it provides 1555kcal, 250CHO (2. 5mg/kg/min), 76g protein. 2. If TF needed, recommend Fibersource HN starting at 20ml/hr for first 24hr. If tolerated, increase to goal rate of 55ml and wean TPN. 3. Monitor nutrition support, wt, skin integrity and labs 3. F/U as high risk in 2-3 days, /-11/06 Expected Outcomes/Goals Expected Outcomes/Goals 1. Pt to meet at least 75% of nutritional needs via nutrition support with tolerance 2. Wt stability, skin to remain intact, labs to approach WNL.
--- NOTE | 2017-11-10 14:58 | Diagnostic Imaging Report ---
Upper GI with Gastrografin HISTORY: G-tube confirmation COMPARISON: Upper GI exam 11/09/[address] abdomen and pelvis on 10/24/2017. Study was also compared small bowel follow-through on 11/03/2017 FINDINGS: Conservation Specialist view demonstrates gaseous distention of most of bowel particularly the right upper quadrant. Percutaneous gastric feeding tube is noted. The follow-up images demonstrate contrast opacification of the stomach and proximal small bowel. No obvious leakage identified. IMPRESSION: Intraluminal confirmation of patient's percutaneous gastric feeding tube. Persistent distended loops of bowel, most pronounced along the right upper quadrant. Findings may be due to a severe ileus or distal obstructive process. Clinical correlation and follow-up is recommended.
--- NOTE | 2017-11-10 15:36 | Internal Medicine Prog Note ---
Internal Medicine Subjective - Subjective Patient seen and examined:: with staff, chart reviewed Patient is:: awake, non-verbal, non-interactive Patient Complaints of:: vomitting Per staff patient has:: poor appetite, tolerating meds Internal Medicine Objective - Results Result Diagrams: 11/10/17 05:20 11/10/17 05:20 Recent Labs: Laboratory Last Values WBC 13.3 Th/cmm (4.8-10.8) H 11/10/17 05:20 RBC 3.47 Mil/cmm (4.30-5.70) L 11/10/17 05:20 Hgb 11.1 gm/dL (12-16) L 11/10/17 05:20 Hct 32.6 % (41.0-60) L 11/10/17 05:20 MCV 93.8 fl (80-99) 11/10/17 05:20 MCH 31.9 pg (26.0-30.0) H 11/10/17 05:20 MCHC Differential 34.0 pg (28.0-36.0) 11/10/17 05:20 RDW 14.7 % (11.5-20.0) 11/10/17 05:20 Plt Count 448 Th/cmm (150-400) H 11/10/17 05:20 MPV 8.7 fl 11/10/17 05:20 Neutrophils % 67.5 % (40.0-80.0) 11/10/17 05:20 Band Neutrophils % 3 % (0-10) 11/07/17 04:45 Lymphocytes % 9.5 % (20.0-50.0) L 11/10/17 05:20 Monocytes % 12.2 % (2.0-10.0) H 11/10/17 05:20 Eosinophils % 10.1 % (0.0-5.0) H 11/10/17 05:20 Basophils % 0.7 % (0.0-2.0) 11/10/17 05:20 Neutrophils (Manual) 74 % (40-80) 11/07/17 04:45 Lymphocytes 16 % (20-50) L 11/07/17 04:45 Monocytes 4 % (2-10) 11/07/17 04:45 Eosinophils 3 % (0-5) 11/07/17 04:45 Platelet Estimate ADEQUATE (NORMAL) 11/06/17 05:45 PT 10.4 SECONDS (9.5-11.5) 11/04/17 05:40 INR 1.00 (0.5-1.4) 11/04/17 05:40 PTT (Actin FS) 22.4 SECONDS (26.0-38.0) L 11/04/17 05:40 Sodium 143 mEq/L (136-145) 11/10/17 05:20 Potassium 3.8 mEq/L (3.5-5.1) 11/10/17 05:20 Chloride 114 mEq/L (98-107) H 11/10/17 05:20 Carbon Dioxide 21.2 mEq/L (21.0-31.0) 11/10/17 05:20 Anion Gap 11.6 (7.0-16.0) 11/10/17 05:20 BUN 24 mg/dL (7-25) 11/10/17 05:20 Creatinine 0.9 mg/dL (0.7-1.3) 11/10/17 05:20 Est GFR ( Amer) > 60.0 ml/min (>90) 11/10/17 05:20 Est GFR (Non-Af Amer) > 60.0 ml/min 11/10/17 05:20 BUN/Creatinine Ratio 26.7 11/10/17 05:20 Glucose 98 mg/dL (70-105) 11/10/17 05:20 POC Glucose 97 MG/DL (70 - 105) 11/08/17 13:12 Whole Bld Lactic Acid 1.20 mmol/L (0.60-1.99) 11/01/17 08:49 Calcium 9.0 mg/dL (8.6-10.3) 11/10/17 05:20 Phosphorus 2.3 mg/dL (2.5-5.0) L 11/06/17 05:45 Magnesium 1.8 mg/dL (1.9-2.7) L 11/08/17 04:30 Total Bilirubin 0.6 mg/dL (0.3-1.0) 11/08/17 04:30 AST 18 U/L (13-39) 11/08/17 04:30 ALT 24 U/L (7-52) 11/08/17 04:30 Alkaline Phosphatase 159 U/L (34-104) H 11/08/17 04:30 Ammonia 76 umol/L (16-53) H 11/08/17 04:30 Troponin I 0.03 ng/mL (0.01-0.05) 11/01/17 08:49 B-Natriuretic Peptide 39.7 pg/mL (5.0-100.0) 11/08/17 04:30 Total Protein 5.6 gm/dL (6.0-8.3) L 11/08/17 04:30 Albumin 2.8 gm/dL (4.2-5.5) L 11/08/17 04:30 Globulin 2.8 gm/dL 11/08/17 04:30 Albumin/Globulin Ratio 1.0 (1.0-1.8) 11/08/17 04:30 Prealbumin 30 mg/dL (10-36) 11/03/17 06:20 Triglycerides 196 mg/dL (<150) H 11/02/17 06:13 Cholesterol 158 mg/dL (<200) 11/03/17 06:20 Lipase 38 U/L (11-82) 11/01/17 08:49 TSH 12.56 uIU/ml (0.34-5.60) H 11/01/17 08:49 Urine Source RANDOM 11/01/17 09:20 Urine Color YELLOW 11/01/17 09:20 Urine Clarity HAZY (CLEAR) 11/01/17 09:20 Urine pH 5.5 (4.6 - 8.0) 11/01/17 09:20 Ur Specific [place] >= 1.030 (1.005-1.030) 11/01/17 09:20 Urine Protein 100 mg/dL (NEGATIVE) H 11/01/17 09:20 Urine Glucose (UA) NEGATIVE mg/dL (NEGATIVE) 11/01/17 09:20 Urine Ketones NEGATIVE mg/dL (NEGATIVE) 11/01/17 09:20 Urine Blood TRACE (NEGATIVE) 11/01/17 09:20 Urine Nitrate NEGATIVE (NEGATIVE) 11/01/17 09:20 Urine Bilirubin SMALL (NEGATIVE) H 11/01/17 09:20 Urine Urobilinogen 0.2 E.U./dL (0.2 - 1.0) 11/01/17 09:20 Ur Leukocyte Esterase SMALL (NEGATIVE) H 11/01/17 09:20 Urine RBC 0-2 /hpf (0-5) H 11/01/17 09:20 Urine WBC 50-100 /hpf (0-5) H 11/01/17 09:20 Ur Epithelial Cells MODERATE /lpf (FEW) 11/01/17 09:20 Urine Bacteria MODERATE /hpf (NONE SEEN) H 11/01/17 09:20 - Physical Exam Vitals and I&O: Vital Signs Temp 97.5 F 11/10/17 04:00 Pulse 79 11/10/17 06:28 Resp 18 11/10/17 10:04 BP 116/63 11/10/17 04:00 Pulse Ox 94 11/10/17 06:28 Intake & Output 11/09/17 11/10/17 11/10/17 18:59 06:59 18:59 Intake Total 310.016 870 8203 Output Total 1230 Balance 310.000 100 -130 Weight (lbs) 93.894 kg Intake: Intake, IV Amount 310.808 919 1668 D5-0.9%Ns 1,000 ml @ 100 1000 mls/hr IV .Q10H [facility] Rx#: [id number] Levetiracetam 1,000 mg In 110.000 Sodium Chloride 0.9% 100 ml @ 200 mls/hr IV Q12H [facility] Rx#:[id number] Piperacillin Sodium/ 200 100 100 Tazobact 4.5 gm In Sodium Chloride 0.9% 100 ml @ 100 mls/hr IV Q8HR [facility] Rx #:[id number] Output: Drainage 330 COLOST 300 Left Anterior Abdomen 30 Urine 400 Stool 500 Other: Stool Characteristics Liquid Brown Green Weight Source Estimated Active Medications: Current Medications Acetaminophen (Tylenol) 650 mg PO Q6H PRN PRN Reason: PAIN OR FEVER >100 Acetaminophen/Hydrocodone Bitart ([place] 5mg/325mg) 1 tab PO Q6H PRN PRN Reason: PAIN/DISCOMFORT Stop: 12/31/17 10:05 Albuterol Sulfate (Albuterol 2.5mg/3ml Neb Ud) 2.5 mg HHN Q4HRT PRN PRN Reason: Shortness of Breath Stop: 12/31/17 11:19 Benztropine Mesylate (Cogentin) 1 mg PO BID [facility] Stop: 12/31/17 16:59 Last Admin: 11/10/17 10:00 Dose: Not Given Brimonidine Tartrate (Alphagan 0.2% Ophth Soln) 1 drop EACH EYE BID [facility] Stop: 12/31/17 16:59 Last Admin: 11/10/17 10:00 Dose: 1 drop Chlorhexidine Gluconate (Peridex) 15 ml MM DAILY [facility] Stop: 01/02/18 09:59 Last Admin: 11/10/17 10:00 Dose: 15 ml Clonazepam (Klonopin) 1 mg PO BID [facility] Stop: 12/31/17 16:59 Last Admin: 11/10/17 10:01 Dose: Not Given Dorzolamide/Timolol (Cosopt Ophth Soln) 1 drop RIGHT EYE BID [facility] Stop: 12/31/17 16:59 Last Admin: 11/10/17 10:01 Dose: 1 drop Escitalopram Oxalate (Lexapro) 20 mg PO DAILY [facility] PRN Reason: Protocol Stop: 01/01/18 08:59 Last Admin: 11/10/17 10:01 Dose: Not Given Fluticasone Propionate (Flonase) 2 spr NS DAILY [facility] Stop: 01/01/18 08:59 Last Admin: 11/10/17 10:02 Dose: 2 spr Hydrocortisone (Hydrocortisone 1%) 1 appl TP BID PRN PRN Reason: Rash Stop: 12/31/17 10:05 Last Admin: 11/09/17 18:25 Dose: 1 appl Levetiracetam 1,000 mg/ Sodium (Chloride) 110 mls @ 200 mls/hr IV Q12H [facility] Stop: 01/02/18 20:59 Last Admin: 11/10/17 10:22 Dose: 200 mls/hr Levofloxacin (Levaquin Pb) 750 mg in 150 mls @ 100 mls/hr IV Q24HR [facility] Stop: 01/06/18 14:59 Last Admin: 11/09/17 14:16 Dose: 100 mls/hr Piperacillin Sod/Tazobactam (Sod 4.5 gm/ Sodium Chloride) 100 mls @ 100 mls/hr IV Q8HR [facility] Stop: 01/06/18 20:59 Last Admin: 11/10/17 14:07 Dose: 100 mls/hr Lamotrigine (Lamictal) 200 mg PO DAILY [facility] Stop: 01/01/18 08:59 Last Admin: 11/10/17 10:02 Dose: Not Given Lamotrigine (Lamictal) 350 mg PO HS [facility] Stop: 12/31/17 20:59 Last Admin: 11/10/17 00:34 Dose: Not Given Latanoprost (Xalatan 0.005% Ophth Soln) 1 drop EACH EYE HS [facility] Stop: 12/31/17 20:59 Last Admin: 11/10/17 05:47 Dose: Not Given Levothyroxine Sodium (Synthroid) 0.125 mg PO DAILY [facility] Stop: 01/01/18 08:59 Last Admin: 11/10/17 10:02 Dose: Not Given Methotrexate (Methotrexate) 10 mg PO Tu@0730 [facility] PRN Reason: Protocol Stop: 01/03/18 07:29 Last Admin: 11/04/17 07:42 Dose: Not Given Miconazole Nitrate (Micatin 2%) 1 appl TP BID [facility] Stop: 12/31/17 16:59 Last Admin: 11/10/17 10:03 Dose: 1 appl Pantoprazole Sodium (Protonix) 40 mg IVP BID [facility] Stop: 12/31/17 16:59 Last Admin: 11/10/17 11:18 Dose: 40 mg Patient Own Med Onfi (20mg Tablet) 1 PO BID [facility] Stop: 01/01/18 16:59 Last Admin: 11/10/17 10:03 Dose: Not Given Patient Own Med (Aptiom 600mg Tablet) 1 PO QPM [facility] Stop: 01/01/18 16:59 Last Admin: 11/10/17 01:07 Dose: Not Given Petrolatum (Vaseline Oint) 1 appl TP BID [facility] Stop: 12/31/17 16:59 Last Admin: 11/10/17 10:04 Dose: 1 appl Quetiapine Fumarate (Seroquel) 25 mg PO BID [facility] PRN Reason: Protocol Stop: 12/31/17 16:59 Last Admin: 11/10/17 10:04 Dose: Not Given Rifaximin (Xifaxan) 600 mg PO BID [facility] Stop: 12/31/17 16:59 Last Admin: 11/10/17 10:04 Dose: Not Given Sodium Chloride (Roland Nasal [place]) 1 spr NS QID [facility] Stop: 12/31/17 12:59 Last Admin: 11/10/17 13:24 Dose: 1 spr General: weak HEENT: NC/AT, PERRLA Neck: Supple Lungs: CTAB Cardiovascular: RRR, Normal S1, Normal S2, without murmur Abdomen: soft, +GT, positive bowel sound Extremities: excoriation Neurological: lethargic, unable to follow command, bedbound - Procedures Procedures: Procedures Procedure Code Date BYPASS ILEUM TO CUTANEOUS, OPEN APPROACH [id number] 09/23/17 CHANGE FEEDING DEVICE IN UP INTEST TRACT, DINKEY PRESS OPERATOR APPROACH [id number] 11/01/17 CHANGE GASTROSTOMY TUBE 43497 11/01/17 DRAINAGE OF SMALL INTESTINE, ENDO [id number] 11/01/17 EXPLORATION OF ABDOMEN 04109 11/01/17 FREEING OF BOWEL ADHESION 86919 11/01/17 ILEOSTOMY/JEJUNOSTOMY 08059 09/23/17 INSERTION OF ENDOTRACHEAL AIRWAY INTO TRACHEA, VIA OPENING [id number] 09/23/17 INSERTION OF FEEDING DEVICE INTO STOMACH, OPEN APPROACH [id number] 09/23/17 INTRODUCTION OF NUTRITIONAL INTO CENTRAL VEIN, PERC APPROACH [id number] 09/23/17 PARTIAL REMOVAL OF COLON 57620 09/23/[address] PL[address] GASTROSTOMY TUBE 79661 09/23/17 RELEASE PERITONEUM, OPEN APPROACH [id number] 09/23/17 RELEASE SMALL INTESTINE, OPEN APPROACH [id number] 11/01/17 REPAIR SMALL INTESTINE, OPEN APPROACH [id number] 11/01/17 RESECTION OF LARGE INTESTINE, OPEN APPROACH [id number] 09/23/17 RESPIRATORY VENTILATION, LESS THAN 24 CONSECUTIVE HOURS [id number] 09/23/17 SUTURE SMALL INTESTINE 06510 11/01/17 Internal Medicine Assmt/Plan - Assessment Assessment: - Assessment Assessment: s/p peg placement sepsis intractable vomiting small bowel obstruction acute renal insufficiency acute uti mr cp seizures generalized contractures - Plan Plan: cbc/bmp in am MONITOR LYTES CONTINUE CURRENT PLAN OF CARE - Plan Plan: cont on iv abx dw dr deras Nutritional Asmnt/Malnutr-PDOC - Dietary Evaluation Malnutrition Findings (Please click <Entered> for more info): Nutritional Asmnt/Malnutrition Start: 11/03/17 14: 15 Text: Status: Complete Freq: Document 11/03/17 14:15 LCHENG (Rec: 11/03/17 14:45 [email or web address] [email or web address]) Nutritional Asmnt/Malnutrition Patient General Information Nutritional Screening High Risk Consult Diagnosis UTI Pertinent Medical Hx/Surgical Hx MR, cerebral palsy, seizure, colectomy, generalized contractures, ileostomy Subjective Information Consult received for freddy cox. Pt had gtube replacement this morning. Pt now on TPN. May start tube feeding if small bowel series does not show bowel obstruction per MD note. Current Diet Order/ Nutrition Support TPN D10% A4.25%, lipid 20% 150ml at 50ml/hr providing 912kcal, 51g protein Pertinent Medications D5-0.9%ns, novolog, synthroid, k phos Pertinent Labs 11/03 cl 113, Bun 45, glucose 100, POC 92 Nutritional Hx/Data Height 1.78 m Height (Calculated Centimeters) 177.8 Current Weight (lbs) 68.492 kg Weight (Calculated Kilograms) 68.5 Weight (Calculated Grams) 37605.4 [place] Body Weight 166 Body Mass Index (BMI) 21.7 Weight Status Approriate GI Symptoms GI Symptoms None Last BM 0 Difficult in: None Skin Integrity/Comment: rash to right and left foot, scar to abdomen Current %PO Good (75-100%) Estimated Nutritional Goals BEE in Kcals: Using Current wt Calories/Kcals/Kg 23-27 Kcals Calculated 9423-0468 Protein: Using Current wt Protein g/k-1.1 Protein Calculated 69-76 Fluid: ml 1587-1863ml 91ml/kcal) Nutritional Problem No current Nutrition Prob Problem altered GI function Etiology possible small bowel obstruction Signs/Symptoms: pt on TPN Malnutrition Alert Protein-Calorie Malnutrition N/A Is there a minimum of two criteria No selected? Query Text:Check all the applicable criteria. A minimum of two criteria are recommended for diagnosis of either severe or non-severe malnutrition. Intervention/Recommendation Comments 1. If continue with TPN, recommend D12%, AA4%, lipid 20 % 200ml at 80ml/hr. it provides 1555kcal, 250CHO (2. 5mg/kg/min), 76g protein. 2. If TF needed, recommend Fibersource HN starting at 20ml/hr for first 24hr. If tolerated, increase to goal rate of 55ml and wean TPN. 3. Monitor nutrition support, wt, skin integrity and labs 3. F/U as high risk in 2-3 days, 5/2-5/3 Expected Outcomes/Goals Expected Outcomes/Goals 1. Pt to meet at least 75% of nutritional needs via nutrition support with tolerance 2. Wt stability, skin to remain intact, labs to approach WNL.
[2017-11-10] MEDS: Levofloxacin 750mg/150mL 750 MG/150 ML BAG IV SCH (15:38)
[2017-11-10] MEDS ORDERED: Magnesium Citrate 1.75 GM/300 mL Bottle PO ONE (18:21)
[2017-11-11] MEDS: D5-0.9%NS 1,000 ML IV SCH (06:00)
[2017-11-11 06:25] LABS: % BASOPHILS 0.6 % (0.0-2.0); % EOSINOPHILS 10.2 % (0.0-5.0); % LYMPHOCYTES 11.4 % (20.0-50.0); % MONOCYTES 11.9 % (2.0-10.0); % NEUTROPHILS 65.9 % (40.0-80.0); BASOPHILE ABSOLUTE 0.1 Th/cumm (0-0.2); EOSINOPHILE ABSOLUTE 1.3 Th/cmm (0.1-0.4); HEMOGLOBIN 11.1 gm/dL (12-16); LYMPHOCYTE ABSOLUTE 1.5 Th/cmm (1.5-3.0); MEAN CELL VOLUME 93.9 fl (80-99); MEAN CORPUSCULAR HEMOGLOBIN 32.4 pg (26.0-30.0); MEAN CORPUSCULAR HGB CONC 34.5 pg (28.0-36.0); MEAN PLATELET VOLUME 8.2 fl; MONOCYTE ABSOLUTE 1.6 Th/cmm (0.3-1.0); NEUTROPHILE ABSOLUTE 8.6 Th/cmm (1.8-8.0); PLATELET COUNT 505 Th/cmm (150-400); RED BLOOD COUNT 3.41 Mil/cmm (4.30-5.70); RED CELL DISTRIBUTION WIDTH 14.6 % (11.5-20.0)
[2017-11-11 06:27] LABS: WHITE BLOOD COUNT 13.1 Th/cmm (4.8-10.8)
[2017-11-11 06:39] LABS: ANION GAP 10.4 (7.0-16.0); BUN - UREA NITROGEN 21 mg/dL (7-25); CALCIUM SERUM 8.6 mg/dL (8.6-10.3); CARBON DIOXIDE 21.2 mEq/L (21.0-31.0); CHLORIDE 117 mEq/L (98-107); CREATININE - SERUM 0.9 mg/dL (0.7-1.3); GFR AFRICAN-AMERICAN > 60.0 ml/min (>90); GFR NON AFRICAN-AMERICAN > 60.0 ml/min; GLUCOSE 115 mg/dL (70-105); MAGNESIUM 1.6 mg/dL (1.9-2.7); POTASSIUM SERUM 3.6 mEq/L (3.5-5.1); SODIUM SERUM 145 mEq/L (136-145)
[2017-11-11] MEDS: Levothyroxine 0.125 Mg Tab PO SCH (08:50)
[2017-11-11] MEDS: Benztropine 1 MG TAB PO SCH (08:51)
[2017-11-11] MEDS: Multivitamin w/ Minerals Tab PO SCH (08:51)
[2017-11-11] MEDS: Chlorhexidine Gluconate 0.12% 480mL Bottle MM SCH (08:52)
[2017-11-11] MEDS: Fluticasone Propionate 0.05mg/Actuation 16gm Nasal Spray NS SCH (08:53)
[2017-11-11] MEDS: Miconazole Nitrate 2% Cream 30gm TP SCH (08:53)
[2017-11-11] MEDS: Saline 0.65% Nasal Spray NS SCH ×2 (08:54→13:48)
[2017-11-11] MEDS: Petrolatum (White) Oint 0.6 Oz Tube TP SCH (08:54)
--- NOTE | 2017-11-11 10:44 | Internal Medicine Prog Note ---
Internal Medicine Subjective - Subjective Service Date: 11/11/17 Patient is:: awake, non-verbal, non-interactive Patient Complaints of:: vomitting Per staff patient has:: poor appetite, tolerating meds Internal Medicine Objective - Results Result Diagrams: 11/11/17 06:00 11/11/17 06:00 Recent Labs: Laboratory Last Values WBC 13.1 Th/cmm (4.8-10.8) H 11/11/17 06:00 RBC 3.41 Mil/cmm (4.30-5.70) L 11/11/17 06:00 Hgb 11.1 gm/dL (12-16) L 11/11/17 06:00 Hct 32.0 % (41.0-60) L 11/11/17 06:00 MCV 93.9 fl (80-99) 11/11/17 06:00 MCH 32.4 pg (26.0-30.0) H 11/11/17 06:00 MCHC Differential 34.5 pg (28.0-36.0) 11/11/17 06:00 RDW 14.6 % (11.5-20.0) 11/11/17 06:00 Plt Count 505 Th/cmm (150-400) H 11/11/17 06:00 MPV 8.2 fl 11/11/17 06:00 Neutrophils % 65.9 % (40.0-80.0) 11/11/17 06:00 Band Neutrophils % 3 % (0-10) 11/07/17 04:45 Lymphocytes % 11.4 % (20.0-50.0) L 11/11/17 06:00 Monocytes % 11.9 % (2.0-10.0) H 11/11/17 06:00 Eosinophils % 10.2 % (0.0-5.0) H 11/11/17 06:00 Basophils % 0.6 % (0.0-2.0) 11/11/17 06:00 Neutrophils (Manual) 74 % (40-80) 11/07/17 04:45 Lymphocytes 16 % (20-50) L 11/07/17 04:45 Monocytes 4 % (2-10) 11/07/17 04:45 Eosinophils 3 % (0-5) 11/07/17 04:45 Platelet Estimate ADEQUATE (NORMAL) 05/03/18 05:45 PT 10.4 SECONDS (9.5-11.5) 11/04/17 05:40 INR 1.00 (0.5-1.4) 11/04/17 05:40 PTT (Actin FS) 22.4 SECONDS (26.0-38.0) L 11/04/17 05:40 Sodium 145 mEq/L (136-145) 11/11/17 06:00 Potassium 3.6 mEq/L (3.5-5.1) 11/11/17 06:00 Chloride 117 mEq/L (98-107) H 11/11/17 06:00 Carbon Dioxide 21.2 mEq/L (21.0-31.0) 11/11/17 06:00 Anion Gap 10.4 (7.0-16.0) 11/11/17 06:00 BUN 21 mg/dL (7-25) 11/11/17 06:00 Creatinine 0.9 mg/dL (0.7-1.3) 11/11/17 06:00 Est GFR ( Amer) > 60.0 ml/min (>90) 11/11/17 06:00 Est GFR (Non-Af Amer) > 60.0 ml/min 11/11/17 06:00 BUN/Creatinine Ratio 23.3 11/11/17 06:00 Glucose 115 mg/dL (70-105) H 11/11/17 06:00 POC Glucose 97 MG/DL (70 - 105) 11/08/17 13:12 Whole Bld Lactic Acid 1.20 mmol/L (0.60-1.99) 11/01/17 08:49 Calcium 8.6 mg/dL (8.6-10.3) 11/11/17 06:00 Phosphorus 2.3 mg/dL (2.5-5.0) L 11/06/17 05:45 Magnesium 1.6 mg/dL (1.9-2.7) L 11/11/17 06:00 Total Bilirubin 0.6 mg/dL (0.3-1.0) 11/08/17 04:30 AST 18 U/L (13-39) 11/08/17 04:30 ALT 24 U/L (7-52) 11/08/17 04:30 Alkaline Phosphatase 159 U/L (34-104) H 11/08/17 04:30 Ammonia 76 umol/L (16-53) H 11/08/17 04:30 Troponin I 0.03 ng/mL (0.01-0.05) 11/01/17 08:49 B-Natriuretic Peptide 39.7 pg/mL (5.0-100.0) 11/08/17 04:30 Total Protein 5.6 gm/dL (6.0-8.3) L 11/08/17 04:30 Albumin 2.8 gm/dL (4.2-5.5) L 11/08/17 04:30 Globulin 2.8 gm/dL 11/08/17 04:30 Albumin/Globulin Ratio 1.0 (1.0-1.8) 11/08/17 04:30 Prealbumin 30 mg/dL (10-36) 11/03/17 06:20 Triglycerides 196 mg/dL (<150) H 11/02/17 06:13 Cholesterol 158 mg/dL (<200) 11/03/17 06:20 Lipase 38 U/L (11-82) 11/01/17 08:49 TSH 12.56 uIU/ml (0.34-5.60) H 11/01/17 08:49 Urine Source RANDOM 11/01/17 09:20 Urine Color YELLOW 11/01/17 09:20 Urine Clarity HAZY (CLEAR) 11/01/17 09:20 Urine pH 5.5 (4.6 - 8.0) 11/01/17 09:20 Ur Specific [place] >= 1.030 (1.005-1.030) 11/01/17 09:20 Urine Protein 100 mg/dL (NEGATIVE) H 11/01/17 09:20 Urine Glucose (UA) NEGATIVE mg/dL (NEGATIVE) 11/01/17 09:20 Urine Ketones NEGATIVE mg/dL (NEGATIVE) 11/01/17 09:20 Urine Blood TRACE (NEGATIVE) 11/01/17 09:20 Urine Nitrate NEGATIVE (NEGATIVE) 11/01/17 09:20 Urine Bilirubin SMALL (NEGATIVE) H 11/01/17 09:20 Urine Urobilinogen 0.2 E.U./dL (0.2 - 1.0) 11/01/17 09:20 Ur Leukocyte Esterase SMALL (NEGATIVE) H 11/01/17 09:20 Urine RBC 0-2 /hpf (0-5) H 11/01/17 09:20 Urine WBC 50-100 /hpf (0-5) H 11/01/17 09:20 Ur Epithelial Cells MODERATE /lpf (FEW) 11/01/17 09:20 Urine Bacteria MODERATE /hpf (NONE SEEN) H 11/01/17 09:20 - Physical Exam Vitals and I&O: Vital Signs Temp 97.5 F 11/11/17 08:00 Pulse 87 11/11/17 08:00 Resp 18 11/11/17 08:00 BP 100/55 11/11/17 08:00 Pulse Ox 97 11/11/17 08:00 Intake & Output 11/10/17 11/11/17 11/11/17 18:59 06:59 18:59 Intake Total 1310 1100 Output Total 1230 Balance 80 1100 Weight (lbs) 207 lb Intake: Intake, IV Amount 1310 1100 D5-0.9%Ns 1,000 ml @ 100 1000 mls/hr IV .Q10H [facility] Rx#: [id number] D5-0.9%Ns 1,000 ml @ 70 1000 mls/hr IV .[id number] [facility] Rx #:[id number] Levetiracetam 1,000 mg In 110 Sodium Chloride 0.9% 100 ml @ 200 mls/hr IV Q12H [facility] Rx#:[id number] Piperacillin Sodium/ 200 100 Tazobact 4.5 gm In Sodium Chloride 0.9% 100 ml @ 100 mls/hr IV Q8HR [facility] Rx #:[id number] Output: Drainage 330 COLOST 300 Left Anterior Abdomen 30 Urine 400 Stool 500 Other: Stool Characteristics Liquid Liquid Soft Green Green Formed Liquid Brown Weight Source Estimated Active Medications: Current Medications Acetaminophen (Tylenol) 650 mg PO Q6H PRN PRN Reason: PAIN OR FEVER >100 Acetaminophen/Hydrocodone Bitart (Vesper 5mg/325mg) 1 tab PO Q6H PRN PRN Reason: PAIN/DISCOMFORT Stop: 12/31/17 10:05 Albuterol Sulfate (Albuterol 2.5mg/3ml Neb Ud) 2.5 mg HHN Q4HRT PRN PRN Reason: Shortness of Breath Stop: 12/31/17 11:19 Benztropine Mesylate (Cogentin) 1 mg PO BID [facility] Stop: 12/31/17 16:59 Last Admin: 11/11/17 08:51 Dose: 1 mg Brimonidine Tartrate (Alphagan 0.2% Oph Soln) 1 drop EACH EYE BID [facility] Stop: 12/31/17 16:59 Last Admin: 11/11/17 08:52 Dose: 1 drop Chlorhexidine Gluconate (Peridex) 15 ml MM DAILY [facility] Stop: 01/02/18 09:59 Last Admin: 11/11/17 08:52 Dose: 15 ml Clonazepam (Klonopin) 1 mg PO BID [facility] Stop: 12/31/17 16:59 Last Admin: 11/11/17 08:51 Dose: 1 mg Dorzolamide/Timolol (Cosopt Oph Soln) 1 drop RIGHT EYE BID [facility] Stop: 12/31/17 16:59 Last Admin: 11/11/17 08:53 Dose: 1 drop Escitalopram Oxalate (Lexapro) 20 mg PO DAILY [facility] PRN Reason: Protocol Stop: 01/01/18 08:59 Last Admin: 11/11/17 08:51 Dose: 20 mg Fluticasone Propionate (Flonase) 2 spr NS DAILY [facility] Stop: 01/01/18 08:59 Last Admin: 11/11/17 08:53 Dose: 2 spr Hydrocortisone (Hydrocortisone 1%) 1 appl TP BID PRN PRN Reason: Rash Stop: 12/31/17 10:05 Last Admin: 11/09/17 18:25 Dose: 1 appl Levetiracetam 1,000 mg/ Sodium (Chloride) 110 mls @ 200 mls/hr IV Q12H [facility] Stop: 01/02/18 20:59 Last Admin: 11/10/17 22:20 Dose: 200 mls/hr Levofloxacin (Levaquin Pb) 750 mg in 150 mls @ 100 mls/hr IV Q24HR [facility] Stop: 01/06/18 14:59 Last Admin: 11/10/17 15:38 Dose: 100 mls/hr Piperacillin Sod/Tazobactam (Sod 4.5 gm/ Sodium Chloride) 100 mls @ 100 mls/hr IV Q8HR [facility] Stop: 01/06/18 20:59 Last Admin: 11/11/17 05:40 Dose: 100 mls/hr Dextrose/Sodium Chloride (D5-0.9%Ns) 1,000 mls @ 70 mls/hr IV .[id number] [facility] Stop: 01/09/18 15:33 Last Admin: 11/11/17 06:00 Dose: 70 mls/hr Lamotrigine (Lamictal) 200 mg PO DAILY [facility] Stop: 01/01/18 08:59 Last Admin: 11/11/17 08:51 Dose: 200 mg Lamotrigine (Lamictal) 350 mg PO HS [facility] Stop: 12/31/17 20:59 Last Admin: 11/10/17 22:20 Dose: 350 mg Latanoprost (Xalatan 0.005% Ophth Soln) 1 drop EACH EYE HS [facility] Stop: 12/31/17 20:59 Last Admin: 11/10/17 22:20 Dose: 1 drop Levothyroxine Sodium (Synthroid) 0.125 mg PO DAILY [facility] Stop: 01/01/18 08:59 Last Admin: 11/11/17 08:50 Dose: 0.125 mg Methotrexate (Methotrexate) 10 mg PO Tu@0730 [facility] PRN Reason: Protocol Stop: 01/03/18 07:29 Last Admin: 11/11/17 08:49 Dose: 10 mg Miconazole Nitrate (Micatin 2%) 1 appl TP BID [facility] Stop: 12/31/17 16:59 Last Admin: 11/11/17 08:53 Dose: 1 appl Pantoprazole Sodium (Protonix) 40 mg IVP BID [facility] Stop: 12/31/17 16:59 Last Admin: 11/11/17 08:52 Dose: 40 mg Patient Own Med Onfi (20mg Tablet) 1 PO BID [facility] Stop: 01/01/18 16:59 Last Admin: 11/10/17 17:11 Dose: Not Given Patient Own Med (Aptiom 600mg Tablet) 1 PO QPM [facility] Stop: 01/01/18 16:59 Last Admin: 11/10/17 17:11 Dose: Not Given Petrolatum (Vaseline Oint) 1 appl TP BID [facility] Stop: 12/31/17 16:59 Last Admin: 11/11/17 08:54 Dose: 1 appl Quetiapine Fumarate (Seroquel) 25 mg PO BID [facility] PRN Reason: Protocol Stop: 12/31/17 16:59 Last Admin: 11/11/17 08:51 Dose: 25 mg Rifaximin (Xifaxan) 600 mg PO BID [facility] Stop: 12/31/17 16:59 Last Admin: 11/11/17 08:50 Dose: 600 mg Sodium Chloride ([place]) 1 spr NS QID [facility] Stop: 12/31/17 12:59 Last Admin: 11/11/17 08:54 Dose: 1 spr General: weak HEENT: NC/AT, PERRLA Neck: Supple Lungs: CTAB Cardiovascular: RRR, Normal S1, Normal S2, without murmur Abdomen: soft, +GT, positive bowel sound Extremities: excoriation Neurological: lethargic, unable to follow command, bedbound - Procedures Procedures: Procedures Procedure Code Date BYPASS ILEUM TO CUTANEOUS, OPEN APPROACH [id number] 09/23/17 CHANGE FEEDING DEVICE IN UP INTEST TRACT, SYSTEM INTEGRATION ENGINEER APPROACH [id number] 11/01/17 CHANGE GASTROSTOMY TUBE 90530 11/01/17 DRAINAGE OF SMALL INTESTINE, ENDO [id number] 11/01/17 EXPLORATION OF ABDOMEN 70413 11/01/17 FREEING OF BOWEL ADHESION 82643 11/01/17 ILEOSTOMY/JEJUNOSTOMY 73779 09/23/17 INSERTION OF ENDOTRACHEAL AIRWAY INTO TRACHEA, VIA OPENING [id number] 09/23/17 INSERTION OF FEEDING DEVICE INTO STOMACH, OPEN APPROACH [id number] 09/23/17 INTRODUCTION OF NUTRITIONAL INTO CENTRAL VEIN, PERC APPROACH [id number] 09/23/17 PARTIAL REMOVAL OF COLON 45932 09/23/[address] GASTR[address]OMY TUBE 04440 09/23/17 RELEASE PERITONEUM, OPEN APPROACH [id number] 09/23/17 RELEASE SMALL INTESTINE, OPEN APPROACH [id number] 11/01/17 REPAIR SMALL INTESTINE, OPEN APPROACH [id number] 11/01/17 RESECTION OF LARGE INTESTINE, OPEN APPROACH [id number] 09/23/17 RESPIRATORY VENTILATION, LESS THAN 24 CONSECUTIVE HOURS [id number] 09/23/17 SUTURE SMALL INTESTINE 27893 11/01/17 Internal Medicine Assmt/Plan - Assessment Assessment: s/p peg placement sepsis intractable vomiting small bowel obstruction acute renal insufficiency acute uti mr cp seizures generalized contractures - Plan Plan: switch keppra to gt cbc/bmp in am MONITOR LYTES CONTINUE CURRENT PLAN OF CARE Nutritional Asmnt/Malnutr-PDOC - Dietary Evaluation Malnutrition Findings (Please click <Entered> for more info): Nutritional Asmnt/Malnutrition Start: 11/03/17 14: 15 Text: Status: Complete Freq: Document 11/03/17 14:15 JEREMIAHROCKY (Rec: 11/03/17 14:45 JEREMIAHROCKY [email or web address]) Nutritional Asmnt/Malnutrition Patient General Information Nutritional Screening High Risk Consult Diagnosis UTI Pertinent Medical Hx/Surgical Hx MR, cerebral palsy, seizure, colectomy, generalized contractures, ileostomy Subjective Information Consult received for freddy ocx. Pt had gtube replacement this morning. Pt now on TPN. May start tube feeding if small bowel series does not show bowel obstruction per MD note. Current Diet Order/ Nutrition Support TPN D10% A4.25%, lipid 20% 150ml at 50ml/hr providing 912kcal, 51g protein Pertinent Medications D5-0.9%ns, novolog, synthroid, k phos Pertinent Labs 11/03 cl 113, Bun 45, glucose 100, POC 92 Nutritional Hx/Data Height 5 ft 10 in Height (Calculated Centimeters) 177.8 Current Weight (lbs) 151 lb Weight (Calculated Kilograms) 68.5 Weight (Calculated Grams) 75054.4 [place] Body Weight 166 Body Mass Index (BMI) 21.7 Weight Status Approriate GI Symptoms GI Symptoms None Last BM 0 Difficult in: None Skin Integrity/Comment: rash to right and left foot, scar to abdomen Current %PO Good (75-100%) Estimated Nutritional Goals BEE in Kcals: Using Current wt Calories/Kcals/Kg 23-27 Kcals Calculated 2673-5236 Protein: Using Current wt Protein g/k-1.1 Protein Calculated 69-76 Fluid: ml 1587-1863ml 91ml/kcal) Nutritional Problem No current Nutrition Prob Problem altered GI function Etiology possible small bowel obstruction Signs/Symptoms: pt on TPN Malnutrition Alert Protein-Calorie Malnutrition N/A Is there a minimum of two criteria No selected? Query Text:Check all the applicable criteria. A minimum of two criteria are recommended for diagnosis of either severe or non-severe malnutrition. Intervention/Recommendation Comments 1. If continue with TPN, recommend D12%, AA4%, lipid 20 % 200ml at 80ml/hr. it provides 1555kcal, 250CHO (2. 5mg/kg/min), 76g protein. 2. If TF needed, recommend Fibersource HN starting at 20ml/hr for first 24hr. If tolerated, increase to goal rate of 55ml and wean TPN. 3. Monitor nutrition support, wt, skin integrity and labs 3. F/U as high risk in 2-3 days, 11/05-11/06 Expected Outcomes/Goals Expected Outcomes/Goals 1. Pt to meet at least 75% of nutritional needs via nutrition support with tolerance 2. Wt stability, skin to remain intact, labs to approach WNL.
[2017-11-11] MEDS: ONFI 20 MG PO SCH (10:50)
--- NOTE | 2017-11-11 12:34 | Infectious Disease Prog Note ---
Infectious Disease Subjective - Review of Systems Service Date: 11/11/17 Subjective: no fever. Pulled out hte G tube. Infectious Disease Objective - Results Result Diagrams: 11/11/17 06:00 11/11/17 06:00 Recent Labs: Laboratory Last Values WBC 13.1 Th/cmm (4.8-10.8) H 11/11/17 06:00 RBC 3.41 Mil/cmm (4.30-5.70) L 11/11/17 06:00 Hgb 11.1 gm/dL (12-16) L 11/11/17 06:00 Hct 32.0 % (41.0-60) L 11/11/17 06:00 MCV 93.9 fl (80-99) 11/11/17 06:00 MCH 32.4 pg (26.0-30.0) H 11/11/17 06:00 MCHC Differential 34.5 pg (28.0-36.0) 11/11/17 06:00 RDW 14.6 % (11.5-20.0) 11/11/17 06:00 Plt Count 505 Th/cmm (150-400) H 11/11/17 06:00 MPV 8.2 fl 11/11/17 06:00 Neutrophils % 65.9 % (40.0-80.0) 11/11/17 06:00 Band Neutrophils % 3 % (0-10) 11/07/17 04:45 Lymphocytes % 11.4 % (20.0-50.0) L 11/11/17 06:00 Monocytes % 11.9 % (2.0-10.0) H 11/11/17 06:00 Eosinophils % 10.2 % (0.0-5.0) H 11/11/17 06:00 Basophils % 0.6 % (0.0-2.0) 11/11/17 06:00 Neutrophils (Manual) 74 % (40-80) 11/07/17 04:45 Lymphocytes 16 % (20-50) L 11/07/17 04:45 Monocytes 4 % (2-10) 11/07/17 04:45 Eosinophils 3 % (0-5) 11/07/17 04:45 Platelet Estimate ADEQUATE (NORMAL) 11/06/17 05:45 PT 10.4 SECONDS (9.5-11.5) 11/04/17 05:40 INR 1.00 (0.5-1.4) 11/04/17 05:40 PTT (Actin FS) 22.4 SECONDS (26.0-38.0) L 11/04/17 05:40 Sodium 145 mEq/L (136-145) 11/11/17 06:00 Potassium 3.6 mEq/L (3.5-5.1) 11/11/17 06:00 Chloride 117 mEq/L (98-107) H 11/11/17 06:00 Carbon Dioxide 21.2 mEq/L (21.0-31.0) 11/11/17 06:00 Anion Gap 10.4 (7.0-16.0) 11/11/17 06:00 BUN 21 mg/dL (7-25) 11/11/17 06:00 Creatinine 0.9 mg/dL (0.7-1.3) 11/11/17 06:00 Est GFR ( Amer) > 60.0 ml/min (>90) 11/11/17 06:00 Est GFR (Non-Af Amer) > 60.0 ml/min 11/11/17 06:00 BUN/Creatinine Ratio 23.3 11/11/17 06:00 Glucose 115 mg/dL (70-105) H 11/11/17 06:00 POC Glucose 97 MG/DL (70 - 105) 11/08/17 13:12 Whole Bld Lactic Acid 1.20 mmol/L (0.60-1.99) 11/01/17 08:49 Calcium 8.6 mg/dL (8.6-10.3) 11/11/17 06:00 Phosphorus 2.3 mg/dL (2.5-5.0) L 11/06/17 05:45 Magnesium 1.6 mg/dL (1.9-2.7) L 11/11/17 06:00 Total Bilirubin 0.6 mg/dL (0.3-1.0) 11/08/17 04:30 AST 18 U/L (13-39) 11/08/17 04:30 ALT 24 U/L (7-52) 11/08/17 04:30 Alkaline Phosphatase 159 U/L (34-104) H 11/08/17 04:30 Ammonia 76 umol/L (16-53) H 11/08/17 04:30 Troponin I 0.03 ng/mL (0.01-0.05) 11/01/17 08:49 B-Natriuretic Peptide 39.7 pg/mL (5.0-100.0) 11/08/17 04:30 Total Protein 5.6 gm/dL (6.0-8.3) L 11/08/17 04:30 Albumin 2.8 gm/dL (4.2-5.5) L 11/08/17 04:30 Globulin 2.8 gm/dL 11/08/17 04:30 Albumin/Globulin Ratio 1.0 (1.0-1.8) 11/08/17 04:30 Prealbumin 30 mg/dL (10-36) 11/03/17 06:20 Triglycerides 196 mg/dL (<150) H 11/02/17 06:13 Cholesterol 158 mg/dL (<200) 11/03/17 06:20 Lipase 38 U/L (11-82) 11/01/17 08:49 TSH 12.56 uIU/ml (0.34-5.60) H 11/01/17 08:49 Urine Source RANDOM 11/01/17 09:20 Urine Color YELLOW 11/01/17 09:20 Urine Clarity HAZY (CLEAR) 11/01/17 09:20 Urine pH 5.5 (4.6 - 8.0) 11/01/17 09:20 Ur Specific [place] >= 1.030 (1.005-1.030) 11/01/17 09:20 Urine Protein 100 mg/dL (NEGATIVE) H 11/01/17 09:20 Urine Glucose (UA) NEGATIVE mg/dL (NEGATIVE) 11/01/17 09:20 Urine Ketones NEGATIVE mg/dL (NEGATIVE) 11/01/17 09:20 Urine Blood TRACE (NEGATIVE) 11/01/17 09:20 Urine Nitrate NEGATIVE (NEGATIVE) 11/01/17 09:20 Urine Bilirubin SMALL (NEGATIVE) H 11/01/17 09:20 Urine Urobilinogen 0.2 E.U./dL (0.2 - 1.0) 11/01/17 09:20 Ur Leukocyte Esterase SMALL (NEGATIVE) H 11/01/17 09:20 Urine RBC 0-2 /hpf (0-5) H 11/01/17 09:20 Urine WBC 50-100 /hpf (0-5) H 11/01/17 09:20 Ur Epithelial Cells MODERATE /lpf (FEW) 11/01/17 09:20 Urine Bacteria MODERATE /hpf (NONE SEEN) H 11/01/17 09:20 - Physical Exam Vitals and I&O: Vital Signs Temp 97.5 F 11/11/17 08:00 Pulse 87 11/11/17 08:00 Resp 18 11/11/17 08:00 BP 100/55 11/11/17 08:00 Pulse Ox 97 11/11/17 08:00 Intake & Output 11/10/17 11/11/17 11/11/17 18:59 06:59 18:59 Intake Total 1310 1210 Output Total 1230 Balance 80 1210 Weight (lbs) 93.894 kg Intake: Intake, IV Amount 1310 1210 D5-0.9%Ns 1,000 ml @ 100 1000 mls/hr IV .Q10H [facility] Rx#: [id number] D5-0.9%Ns 1,000 ml @ 70 1000 mls/hr IV .[id number] [facility] Rx #:[id number] Levetiracetam 1,000 mg In 110 110 Sodium Chloride 0.9% 100 ml @ 200 mls/hr IV Q12H [facility] Rx#:[id number] Piperacillin Sodium/ 200 100 Tazobact 4.5 gm In Sodium Chloride 0.9% 100 ml @ 100 mls/hr IV Q8HR [facility] Rx #:[id number] Output: Drainage 330 COLOST 300 Left Anterior Abdomen 30 Urine 400 Stool 500 Other: Stool Characteristics Liquid Liquid Soft Green Green Formed Liquid Brown Weight Source Estimated Active Medications: Current Medications Acetaminophen (Tylenol) 650 mg PO Q6H PRN PRN Reason: PAIN OR FEVER >100 Acetaminophen/Hydrocodone Bitart ([place] 5mg/325mg) 1 tab PO Q6H PRN PRN Reason: PAIN/DISCOMFORT Stop: 12/31/17 10:05 Albuterol Sulfate (Albuterol 2.5mg/3ml Neb Ud) 2.5 mg HHN Q4HRT PRN PRN Reason: Shortness of Breath Stop: 12/31/17 11:19 Benztropine Mesylate (Cogentin) 1 mg PO BID [facility] Stop: 12/31/17 16:59 Last Admin: 11/11/17 08:51 Dose: 1 mg Brimonidine Tartrate (Alphagan 0.2% Ophth Soln) 1 drop EACH EYE BID [facility] Stop: 12/31/17 16:59 Last Admin: 11/11/17 08:52 Dose: 1 drop Chlorhexidine Gluconate (Peridex) 15 ml MM DAILY [facility] Stop: 01/02/18 09:59 Last Admin: 11/11/17 08:52 Dose: 15 ml Clonazepam (Klonopin) 1 mg PO BID [facility] Stop: 12/31/17 16:59 Last Admin: 11/11/17 08:51 Dose: 1 mg Dorzolamide/Timolol (Cosopt Ophth Soln) 1 drop RIGHT EYE BID [facility] Stop: 12/31/17 16:59 Last Admin: 11/11/17 08:53 Dose: 1 drop Escitalopram Oxalate (Lexapro) 20 mg PO DAILY [facility] PRN Reason: Protocol Stop: 01/01/18 08:59 Last Admin: 11/11/17 08:51 Dose: 20 mg Fluticasone Propionate (Flonase) 2 spr NS DAILY [facility] Stop: 01/01/18 08:59 Last Admin: 11/11/17 08:53 Dose: 2 spr Hydrocortisone (Hydrocortisone 1%) 1 appl TP BID PRN PRN Reason: Rash Stop: 12/31/17 10:05 Last Admin: 11/09/17 18:25 Dose: 1 appl Levofloxacin (Levaquin Pb) 750 mg in 150 mls @ 100 mls/hr IV Q24HR [facility] Stop: 01/06/18 14:59 Last Admin: 11/10/17 15:38 Dose: 100 mls/hr Piperacillin Sod/Tazobactam (Sod 4.5 gm/ Sodium Chloride) 100 mls @ 100 mls/hr IV Q8HR [facility] Stop: 01/06/18 20:59 Last Admin: 11/11/17 05:40 Dose: 100 mls/hr Dextrose/Sodium Chloride (D5-0.9%Ns) 1,000 mls @ 70 mls/hr IV .[id number] [facility] Stop: 01/09/18 15:33 Last Admin: 11/11/17 06:00 Dose: 70 mls/hr Lamotrigine (Lamictal) 200 mg PO DAILY [facility] Stop: 01/01/18 08:59 Last Admin: 11/11/17 08:51 Dose: 200 mg Lamotrigine (Lamictal) 350 mg PO HS [facility] Stop: 12/31/17 20:59 Last Admin: 11/10/17 22:20 Dose: 350 mg Latanoprost (Xalatan 0.005% Ophth Soln) 1 drop EACH EYE HS [facility] Stop: 12/31/17 20:59 Last Admin: 11/10/17 22:20 Dose: 1 drop Levetiracetam (Keppra) 1,000 mg PO BID [facility] Stop: 01/10/18 16:59 Levothyroxine Sodium (Synthroid) 0.125 mg PO DAILY [facility] Stop: 01/01/18 08:59 Last Admin: 11/11/17 08:50 Dose: 0.125 mg Methotrexate (Methotrexate) 10 mg PO Tu@0730 [facility] PRN Reason: Protocol Stop: 01/03/18 07:29 Last Admin: 11/11/17 08:49 Dose: 10 mg Miconazole Nitrate (Micatin 2%) 1 appl TP BID [facility] Stop: 12/31/17 16:59 Last Admin: 11/11/17 08:53 Dose: 1 appl Pantoprazole Sodium (Protonix) 40 mg IVP BID [facility] Stop: 12/31/17 16:59 Last Admin: 11/11/17 08:52 Dose: 40 mg Patient Own Med Onfi (20mg Tablet) 1 PO BID [facility] Stop: 01/01/18 16:59 Last Admin: 11/11/17 10:50 Dose: 1 Patient Own Med (Aptiom 600mg Tablet) 1 PO QPM [facility] Stop: 01/01/18 16:59 Last Admin: 11/10/17 17:11 Dose: Not Given Petrolatum (Vaseline Oint) 1 appl TP BID [facility] Stop: 12/31/17 16:59 Last Admin: 11/11/17 08:54 Dose: 1 appl Quetiapine Fumarate (Seroquel) 25 mg PO BID [facility] PRN Reason: Protocol Stop: 12/31/17 16:59 Last Admin: 11/11/17 08:51 Dose: 25 mg Rifaximin (Xifaxan) 600 mg PO BID [facility] Stop: 12/31/17 16:59 Last Admin: 11/11/17 08:50 Dose: 600 mg Sodium Chloride ([place] Nasal [place]) 1 spr NS QID [facility] Stop: 12/31/17 12:59 Last Admin: 11/11/17 08:54 Dose: 1 spr General: no acute distress, well developed, well nourished HEENT: atraumatic, normocephalic, PERRLA, EOMI, moist mucous membrane Neck: supple, no thyromegaly, no rigid Cardiovascular: S1S2, regular Lungs: clear to auscultation bilaterally, clear to percussion Abdomen: soft, drain, other (wound colostomy.), no tender, no distended Extremities: no cyanosis, no clubbing, no edema Neurological: awake, alert, oriented Skin: intact - Procedures Procedures: Procedures Procedure Code Date BYPASS ILEUM TO CUTANEOUS, OPEN APPROACH [id number] 09/23/17 CHANGE FEEDING DEVICE IN UP INTEST TRACT, [employer] APPROACH [id number] 11/01/17 CHANGE GASTROSTOMY TUBE 86904 11/01/17 DRAINAGE OF SMALL INTESTINE, ENDO [id number] 11/01/17 EXPLORATION OF ABDOMEN 94021 11/01/17 FREEING OF BOWEL ADHESION 56956 11/01/17 ILEOSTOMY/JEJUNOSTOMY 56238 09/23/17 INSERTION OF ENDOTRACHEAL AIRWAY INTO TRACHEA, VIA OPENING [id number] 09/23/17 INSERTION OF FEEDING DEVICE INTO STOMACH, OPEN APPROACH [id number] 09/23/17 INTRODUCTION OF NUTRITIONAL INTO CENTRAL VEIN, PERC APPROACH [id number] 09/23/17 PARTIAL REMOVAL OF COLON 43267 09/23/[address] GASTR[address]OMY TUBE 09714 09/23/17 RELEASE PERITONEUM, OPEN APPROACH [id number] 09/23/17 RELEASE SMALL INTESTINE, OPEN APPROACH [id number] 11/01/17 REPAIR SMALL INTESTINE, OPEN APPROACH [id number] 11/01/17 RESECTION OF LARGE INTESTINE, OPEN APPROACH [id number] 09/23/17 RESPIRATORY VENTILATION, LESS THAN 24 CONSECUTIVE HOURS 7H1242H 09/23/17 SUTURE SMALL INTESTINE 63135 11/01/17 Infectious Disease Assmt/Plan - Problem List Patient Problems: All Active Problems GASTRIC FEEDING TUBE DISLODGED (Acute) - Assessment Assessment: 1. Leukocytosis. Improving. 2. Perironitis. 3. Cerebral palsy. 4. H/o seizure disorder. 5. Candiduria. - Plan Plan: continue zosyn, and levaquin. Nutritional Asmnt/Malnutr-PDOC - Dietary Evaluation Malnutrition Findings (Please click <Entered> for more info): Nutritional Asmnt/Malnutrition Start: 11/03/17 14: 15 Text: Status: Complete Freq: Document 11/03/17 14:15 ELGIN (Rec: 11/03/17 14:45 [id number] [id number]) Nutritional Asmnt/Malnutrition Patient General Information Nutritional Screening High Risk Consult Diagnosis UTI Pertinent Medical Hx/Surgical Hx MR, cerebral palsy, seizure, colectomy, generalized contractures, ileostomy Subjective Information Consult received for freddy cox. Pt had gtube replacement this morning. Pt now on TPN. May start tube feeding if small bowel series does not show bowel obstruction per MD note. Current Diet Order/ Nutrition Support TPN D10% A4.25%, lipid 20% 150ml at 50ml/hr providing 912kcal, 51g protein Pertinent Medications D5-0.9%ns, novolog, synthroid, k phos Pertinent Labs 11/03 cl 113, Bun 45, glucose 100, POC 92 Nutritional Hx/Data Height 1.78 m Height (Calculated Centimeters) 177.8 Current Weight (lbs) 68.492 kg Weight (Calculated Kilograms) 68.5 Weight (Calculated Grams) 74684.4 [place] Body Weight 166 Body Mass Index (BMI) 21.7 Weight Status Approriate GI Symptoms GI Symptoms None Last BM 0 Difficult in: None Skin Integrity/Comment: rash to right and left foot, scar to abdomen Current %PO Good (75-100%) Estimated Nutritional Goals BEE in Kcals: Using Current wt Calories/Kcals/Kg 23-27 Kcals Calculated 2115-6794 Protein: Using Current wt Protein g/k-1.1 Protein Calculated 69-76 Fluid: ml 1587-1863ml 91ml/kcal) Nutritional Problem No current Nutrition Prob Problem altered GI function Etiology possible small bowel obstruction Signs/Symptoms: pt on TPN Malnutrition Alert Protein-Calorie Malnutrition N/A Is there a minimum of two criteria No selected? Query Text:Check all the applicable criteria. A minimum of two criteria are recommended for diagnosis of either severe or non-severe malnutrition. Intervention/Recommendation Comments 1. If continue with TPN, recommend D12%, AA4%, lipid 20 % 200ml at 80ml/hr. it provides 1555kcal, 250CHO (2. 5mg/kg/min), 76g protein. 2. If TF needed, recommend Fibersource HN starting at 20ml/hr for first 24hr. If tolerated, increase to goal rate of 55ml and wean TPN. 3. Monitor nutrition support, wt, skin integrity and labs 3. F/U as high risk in 2-3 days, 5/-/ Expected Outcomes/Goals Expected Outcomes/Goals 1. Pt to meet at least 75% of nutritional needs via nutrition support with tolerance 2. Wt stability, skin to remain intact, labs to approach WNL.
--- NOTE | 2017-11-11 13:21 | GI Progress Note ---
Subjective - Review of Systems Subjective: HAD SBO SURGERY PULLED OUT GT BUT WAS REPLACED BY STAFF ERICA TUBE FEEDS Objective - Results Result Diagrams: 11/11/17 06:00 11/11/17 06:00 Recent Labs: Laboratory Last Values WBC 13.1 Th/cmm (4.8-10.8) H 11/11/17 06:00 RBC 3.41 Mil/cmm (4.30-5.70) L 11/11/17 06:00 Hgb 11.1 gm/dL (12-16) L 11/11/17 06:00 Hct 32.0 % (41.0-60) L 11/11/17 06:00 MCV 93.9 fl (80-99) 11/11/17 06:00 MCH 32.4 pg (26.0-30.0) H 11/11/17 06:00 MCHC Differential 34.5 pg (28.0-36.0) 11/11/17 06:00 RDW 14.6 % (11.5-20.0) 11/11/17 06:00 Plt Count 505 Th/cmm (150-400) H 11/11/17 06:00 MPV 8.2 fl 11/11/17 06:00 Neutrophils % 65.9 % (40.0-80.0) 11/11/17 06:00 Band Neutrophils % 3 % (0-10) 11/07/17 04:45 Lymphocytes % 11.4 % (20.0-50.0) L 11/11/17 06:00 Monocytes % 11.9 % (2.0-10.0) H 11/11/17 06:00 Eosinophils % 10.2 % (0.0-5.0) H 11/11/17 06:00 Basophils % 0.6 % (0.0-2.0) 11/11/17 06:00 Neutrophils (Manual) 74 % (40-80) 11/07/17 04:45 Lymphocytes 16 % (20-50) L 11/07/17 04:45 Monocytes 4 % (2-10) 11/07/17 04:45 Eosinophils 3 % (0-5) 11/07/17 04:45 Platelet Estimate ADEQUATE (NORMAL) 11/06/17 05:45 PT 10.4 SECONDS (9.5-11.5) 11/04/17 05:40 INR 1.00 (0.5-1.4) 11/04/17 05:40 PTT (Actin FS) 22.4 SECONDS (26.0-38.0) L 11/04/17 05:40 Sodium 145 mEq/L (136-145) 11/11/17 06:00 Potassium 3.6 mEq/L (3.5-5.1) 11/11/17 06:00 Chloride 117 mEq/L (98-107) H 11/11/17 06:00 Carbon Dioxide 21.2 mEq/L (21.0-31.0) 11/11/17 06:00 Anion Gap 10.4 (7.0-16.0) 11/11/17 06:00 BUN 21 mg/dL (7-25) 11/11/17 06:00 Creatinine 0.9 mg/dL (0.7-1.3) 11/11/17 06:00 Est GFR ( Amer) > 60.0 ml/min (>90) 11/11/17 06:00 Est GFR (Non-Af Amer) > 60.0 ml/min 11/11/17 06:00 BUN/Creatinine Ratio 23.3 11/11/17 06:00 Glucose 115 mg/dL (70-105) H 11/11/17 06:00 POC Glucose 97 MG/DL (70 - 105) 11/08/17 13:12 Whole Bld Lactic Acid 1.20 mmol/L (0.60-1.99) 11/01/17 08:49 Calcium 8.6 mg/dL (8.6-10.3) 11/11/17 06:00 Phosphorus 2.3 mg/dL (2.5-5.0) L 11/06/17 05:45 Magnesium 1.6 mg/dL (1.9-2.7) L 11/11/17 06:00 Total Bilirubin 0.6 mg/dL (0.3-1.0) 11/08/17 04:30 AST 18 U/L (13-39) 11/08/17 04:30 ALT 24 U/L (7-52) 11/08/17 04:30 Alkaline Phosphatase 159 U/L (34-104) H 11/08/17 04:30 Ammonia 76 umol/L (16-53) H 11/08/17 04:30 Troponin I 0.03 ng/mL (0.01-0.05) 11/01/17 08:49 B-Natriuretic Peptide 39.7 pg/mL (5.0-100.0) 11/08/17 04:30 Total Protein 5.6 gm/dL (6.0-8.3) L 11/08/17 04:30 Albumin 2.8 gm/dL (4.2-5.5) L 11/08/17 04:30 Globulin 2.8 gm/dL 11/08/17 04:30 Albumin/Globulin Ratio 1.0 (1.0-1.8) 11/08/17 04:30 Prealbumin 30 mg/dL (10-36) 11/03/17 06:20 Triglycerides 196 mg/dL (<150) H 11/02/17 06:13 Cholesterol 158 mg/dL (<200) 11/03/17 06:20 Lipase 38 U/L (11-82) 11/01/17 08:49 TSH 12.56 uIU/ml (0.34-5.60) H 11/01/17 08:49 Urine Source RANDOM 11/01/17 09:20 Urine Color YELLOW 11/01/17 09:20 Urine Clarity HAZY (CLEAR) 11/01/17 09:20 Urine pH 5.5 (4.6 - 8.0) 11/01/17 09:20 Ur Specific [place] >= 1.030 (1.005-1.030) 11/01/17 09:20 Urine Protein 100 mg/dL (NEGATIVE) H 11/01/17 09:20 Urine Glucose (UA) NEGATIVE mg/dL (NEGATIVE) 11/01/17 09:20 Urine Ketones NEGATIVE mg/dL (NEGATIVE) 11/01/17 09:20 Urine Blood TRACE (NEGATIVE) 11/01/17 09:20 Urine Nitrate NEGATIVE (NEGATIVE) 11/01/17 09:20 Urine Bilirubin SMALL (NEGATIVE) H 11/01/17 09:20 Urine Urobilinogen 0.2 E.U./dL (0.2 - 1.0) 11/01/17 09:20 Ur Leukocyte Esterase SMALL (NEGATIVE) H 11/01/17 09:20 Urine RBC 0-2 /hpf (0-5) H 11/01/17 09:20 Urine WBC 50-100 /hpf (0-5) H 11/01/17 09:20 Ur Epithelial Cells MODERATE /lpf (FEW) 11/01/17 09:20 Urine Bacteria MODERATE /hpf (NONE SEEN) H 11/01/17 09:20 - Physical Exam Vitals and I&O: Vital Signs Temp 97.5 F 11/11/17 08:00 Pulse 87 11/11/17 08:00 Resp 18 11/11/17 08:00 BP 100/55 11/11/17 08:00 Pulse Ox 97 11/11/17 08:00 Intake & Output 11/10/17 11/11/17 11/11/17 18:59 06:59 18:59 Intake Total 1310 1210 Output Total 1230 Balance 80 1210 Weight (lbs) 93.894 kg Intake: Intake, IV Amount 1310 1210 D5-0.9%Ns 1,000 ml @ 100 1000 mls/hr IV .Q10H [facility] Rx#: [id number] D5-0.9%Ns 1,000 ml @ 70 1000 mls/hr IV .[id number] [facility] Rx #:[id number] Levetiracetam 1,000 mg In 110 110 Sodium Chloride 0.9% 100 ml @ 200 mls/hr IV Q12H [facility] Rx#:[id number] Piperacillin Sodium/ 200 100 Tazobact 4.5 gm In Sodium Chloride 0.9% 100 ml @ 100 mls/hr IV Q8HR [facility] Rx #:[id number] Output: Drainage 330 COLOST 300 Left Anterior Abdomen 30 Urine 400 Stool 500 Other: Stool Characteristics Liquid Liquid Soft Green Green Formed Liquid Brown Weight Source Estimated Active Medications: Current Medications Acetaminophen (Tylenol) 650 mg PO Q6H PRN PRN Reason: PAIN OR FEVER >100 Acetaminophen/Hydrocodone Bitart ([place] 5mg/325mg) 1 tab PO Q6H PRN PRN Reason: PAIN/DISCOMFORT Stop: 12/31/17 10:05 Albuterol Sulfate (Albuterol 2.5mg/3ml Neb Ud) 2.5 mg HHN Q4HRT PRN PRN Reason: Shortness of Breath Stop: 12/31/17 11:19 Benztropine Mesylate (Cogentin) 1 mg PO BID [facility] Stop: 12/31/17 16:59 Last Admin: 11/11/17 08:51 Dose: 1 mg Brimonidine Tartrate (Alphagan 0.2% Ophth Soln) 1 drop EACH EYE BID [facility] Stop: 12/31/17 16:59 Last Admin: 11/11/17 08:52 Dose: 1 drop Chlorhexidine Gluconate (Peridex) 15 ml MM DAILY [facility] Stop: 01/02/18 09:59 Last Admin: 11/11/17 08:52 Dose: 15 ml Clonazepam (Klonopin) 1 mg PO BID [facility] Stop: 12/31/17 16:59 Last Admin: 11/11/17 08:51 Dose: 1 mg Dorzolamide/Timolol (Cosopt Ophth Soln) 1 drop RIGHT EYE BID [facility] Stop: 12/31/17 16:59 Last Admin: 11/11/17 08:53 Dose: 1 drop Escitalopram Oxalate (Lexapro) 20 mg PO DAILY [facility] PRN Reason: Protocol Stop: 01/01/18 08:59 Last Admin: 11/11/17 08:51 Dose: 20 mg Fluticasone Propionate (Flonase) 2 spr NS DAILY [facility] Stop: 01/01/18 08:59 Last Admin: 11/11/17 08:53 Dose: 2 spr Hydrocortisone (Hydrocortisone 1%) 1 appl TP BID PRN PRN Reason: Rash Stop: 12/31/17 10:05 Last Admin: 11/09/17 18:25 Dose: 1 appl Levofloxacin (Levaquin Pb) 750 mg in 150 mls @ 100 mls/hr IV Q24HR [facility] Stop: 01/06/18 14:59 Last Admin: 11/10/17 15:38 Dose: 100 mls/hr Piperacillin Sod/Tazobactam (Sod 4.5 gm/ Sodium Chloride) 100 mls @ 100 mls/hr IV Q8HR [facility] Stop: 01/06/18 20:59 Last Admin: 11/11/17 05:40 Dose: 100 mls/hr Lamotrigine (Lamictal) 200 mg PO DAILY [facility] Stop: 01/01/18 08:59 Last Admin: 11/11/17 08:51 Dose: 200 mg Lamotrigine (Lamictal) 350 mg PO HS [facility] Stop: 12/31/17 20:59 Last Admin: 11/10/17 22:20 Dose: 350 mg Latanoprost (Xalatan 0.005% Ophth Soln) 1 drop EACH EYE HS [facility] Stop: 12/31/17 20:59 Last Admin: 11/10/17 22:20 Dose: 1 drop Levetiracetam (Keppra) 1,000 mg PO BID [facility] Stop: 01/10/18 16:59 Levothyroxine Sodium (Synthroid) 0.125 mg PO DAILY [facility] Stop: 01/01/18 08:59 Last Admin: 11/11/17 08:50 Dose: 0.125 mg Methotrexate (Methotrexate) 10 mg PO Tu@0730 [facility] PRN Reason: Protocol Stop: 01/03/18 07:29 Last Admin: 11/11/17 08:49 Dose: 10 mg Miconazole Nitrate (Micatin 2%) 1 appl TP BID [facility] Stop: 12/31/17 16:59 Last Admin: 11/11/17 08:53 Dose: 1 appl Pantoprazole Sodium (Protonix) 40 mg PO BID [facility] Stop: 01/10/18 16:59 Patient Own Med Onfi (20mg Tablet) 1 PO BID [facility] Stop: 01/01/18 16:59 Last Admin: 11/11/17 10:50 Dose: 1 Patient Own Med (Aptiom 600mg Tablet) 1 PO QPM [facility] Stop: 01/01/18 16:59 Last Admin: 11/10/17 17:11 Dose: Not Given Petrolatum (Vaseline Oint) 1 appl TP BID [facility] Stop: 12/31/17 16:59 Last Admin: 11/11/17 08:54 Dose: 1 appl Quetiapine Fumarate (Seroquel) 25 mg PO BID [facility] PRN Reason: Protocol Stop: 12/31/17 16:59 Last Admin: 11/11/17 08:51 Dose: 25 mg Rifaximin (Xifaxan) 600 mg PO BID CHANDAN Stop: 12/31/17 16:59 Last Admin: 11/11/17 08:50 Dose: 600 mg Sodium Chloride ([place] Nasal [place]) 1 spr NS QID [facility] Stop: 12/31/17 12:59 Last Admin: 11/11/17 08:54 Dose: 1 spr General: Alert, No acute distress Cardiovascular: Regular rate, Normal S1, Normal S2 Lungs: Clear to auscultation Abdomen: Bowel sounds, Soft, Other (G tube and surgical dressing) - Procedures Procedures: Procedures Procedure Code Date BYPASS ILEUM TO CUTANEOUS, OPEN APPROACH [id number] 09/23/17 CHANGE FEEDING DEVICE IN UP INTEST TRACT, CARTRIDGE ASSEMBLER APPROACH [id number] 11/01/17 CHANGE GASTROSTOMY TUBE 03134 11/01/17 DRAINAGE OF SMALL INTESTINE, ENDO [id number] 11/01/17 EXPLORATION OF ABDOMEN 03004 11/01/17 FREEING OF BOWEL ADHESION 02540 11/01/17 ILEOSTOMY/JEJUNOSTOMY 32838 09/23/17 INSERTION OF ENDOTRACHEAL AIRWAY INTO TRACHEA, VIA OPENING [id number] 09/23/17 INSERTION OF FEEDING DEVICE INTO STOMACH, OPEN APPROACH [id number] 09/23/17 INTRODUCTION OF NUTRITIONAL INTO CENTRAL VEIN, PERC APPROACH [id number] 09/23/17 PARTIAL REMOVAL OF COLON 67908 09/23/[address] GASTROSTOMY TUBE 76974 09/23/17 RELEASE PERITONEUM, OPEN APPROACH [id number] 09/23/17 RELEASE SMALL INTESTINE, OPEN APPROACH [id number] 11/01/17 REPAIR SMALL INTESTINE, OPEN APPROACH [id number] 11/01/17 RESECTION OF LARGE INTESTINE, OPEN APPROACH [id number] 09/23/17 RESPIRATORY VENTILATION, LESS THAN 24 CONSECUTIVE HOURS [id number] 09/23/17 SUTURE SMALL INTESTINE 84567 11/01/17 Assessment/Plan - Problem List Patient Problems: All Active Problems GASTRIC FEEDING TUBE DISLODGED (Acute) - Assessment Assessment: 62 YO MALE WITH MALFUNCTION G TUBE DYSPGHAGIA S/P GT CHANGE AND SBO SURGERY GT WAS REPLACED SINCE PT PULLED IT OUT GT REPLACED A SECOND TIME KUB SHOWED GOOD POSITION ERICA TUBE FEEDS 1.CONT POST OP CARE 2.ABD BINDER
[2017-11-11] MEDS: Levofloxacin 750mg/150mL 750 MG/150 ML BAG IV SCH (15:18)
[2017-11-11] MEDS ORDERED: Pantoprazole 40 mg EC Tab PO SCH (17:00)
== END 2017-11-11 16:12 | disposition home or self-care (01) | DRG 329 ==
LOC: ER 07:36 → TELE 10:40 → MSI 11-08 17:17
PROVIDERS: ADMIT Internal Medicine; ATTEND Internal Medicine
PROC: 0D20XUZ Change Feeding Device in Upper Intestinal Tract, External Approach (ICD-10-PCS; principal; 2017-11-01)
PROC: 0D20XUZ Change Feeding Device in Upper Intestinal Tract, External Approach (ICD-10-PCS; 2017-11-03)
PROC: 0DN80ZZ Release Small Intestine, Open Approach (ICD-10-PCS; 2017-11-04)
PROC: 0D980ZZ Drainage of Small Intestine, Open Approach (ICD-10-PCS; 2017-11-04)
PROC: 0DQ80ZZ Repair Small Intestine, Open Approach (ICD-10-PCS; 2017-11-04)
DX: K94.23 Gastrostomy malfunction (principal); A41.9 Sepsis, unspecified organism; R53.2 Functional quadriplegia; K65.9 Peritonitis, unspecified; N17.9 Acute kidney failure, unspecified; N39.0 Urinary tract infection, site not specified; F72 Severe intellectual disabilities; K56.50 Intestinal adhesions [bands], unspecified as to partial versus complete obstruction; S36.439A Laceration of unspecified part of small intestine, initial encounter; G80.9 Cerebral palsy, unspecified; K59.09 Other constipation; G40.909 Epilepsy, unspecified, not intractable, without status epilepticus; H40.9 Unspecified glaucoma; Y83.8 Other surgical procedures as the cause of abnormal reaction of the patient, or of later complication, without mention of misadventure at the time of the procedure; Y92.89 Other specified places as the place of occurrence of the external cause
CPT/HCPCS: 36415-UA; 71045-TC; 74000-TC; 74250-TC; 80048-TC; 80053-TC; 81001-TC; 82140-TC; 82465-TC; 82948-90; 83605; 83690-TC; 83735-TC; 83880-TC; 84100-TC; 84134-90; 84443-TC; 84478-TC; 84484-TC; 85007-TC; 85025-TC; 85027-TC; 85610-TC; 87070-90; 87075-90; 87086-90; 87205-90; 90799; 94760; 96372; C9113; J0285; J1815; J1953; J1956; J2185; J2543; J2704; J2710; J7030; J7042; J8610; V2790; X6258; X6494; X6598; X7704; Z7610

== ENCOUNTER 2017-11-24 01:37 | Inpatient (IN) | payer MEDICARE, MEDICAID ==
--- NOTE | 2017-11-24 03:02 | ED Physician Chart ---
ED Chief Complaint/HPI - Patient Information Date Seen:: 11/24/17 Time Seen:: 14:45 Chief Complaint:: gtube got pulled out History of Present Illness:: 62 yr old male wh pulled out hid g-tubt Allergies:: Allergies Allergy/AdvReac Type Severity Reaction Status Date / Time buspirone [From BuSpar] Allergy Verified 11/24/17 01:51 divalproex sodium Allergy Verified 11/24/17 01:51 [From Depakote] fluoxetine Allergy Verified 11/24/17 01:51 magnesium hydroxide Allergy Verified 11/24/17 01:51 [From Milk of Magnesia] metoclopramide Allergy Verified 11/24/17 01:51 ondansetron Allergy Verified 11/24/17 01:51 Vitals:: Vital Signs - 8 hr 11/24/17 01:40 Temp 96.1 F HR 62 RR 18 BP 114/57 O2 Sat % 96 ED Review of Systems - Review of Systems General/Constitutional: Other (pt unable ) ED Past Medical History - Past Medical History Obtainable: No Family Medical History - Family Member Mother History Unknown: Yes Ethnicity: Non- Living Status: Unknown Father History Unknown: Yes Ethnicity: Unknown Living Status: Unknown ED Assessment - Assessment General Assessment: gtibe problem Critical Care Time: 2.5 hours ED Septic Shock - . Is Septic Shock (SBP<90, OR Lactate>4 mmol\L) present?: No - <6hrs of presentation: Vital Signs: Vital Signs - 8 hr 11/24/17 01:40 Temp 96.1 F HR 62 RR 18 BP 114/57 O2 Sat % 96 ED Reassessment (Disposition) - Patient Disposition Discharge/Transfer:: Acute Care w/in this hosp
[2017-11-24 03:13] LABS: URINE MICROSCOPIC INDICATED? YES; URINE SOURCE CATH
[2017-11-24 03:16] LABS: % BASOPHILS 0.5 % (0.0-2.0); % EOSINOPHILS 6.2 % (0.0-5.0); % MONOCYTES 12.5 % (2.0-10.0); % NEUTROPHILS 61.8 % (40.0-80.0); BASOPHILE ABSOLUTE 0.1 Th/cumm (0-0.2); EOSINOPHILE ABSOLUTE 0.7 Th/cmm (0.1-0.4); HEMATOCRIT 34.7 % (41.0-60); HEMOGLOBIN 11.7 gm/dL (12-16); LYMPHOCYTE ABSOLUTE 2.1 Th/cmm (1.5-3.0); MEAN CELL VOLUME 94.3 fl (80-99); MEAN CORPUSCULAR HGB CONC 33.9 pg (28.0-36.0); MEAN PLATELET VOLUME 7.4 fl; MONOCYTE ABSOLUTE 1.4 Th/cmm (0.3-1.0); NEUTROPHILE ABSOLUTE 6.5 Th/cmm (1.8-8.0); PLATELET COUNT 438 Th/cmm (150-400); RED BLOOD COUNT 3.67 Mil/cmm (4.30-5.70); RED CELL DISTRIBUTION WIDTH 14.8 % (11.5-20.0); WHITE BLOOD COUNT 10.8 Th/cmm (4.8-10.8)
[2017-11-24 03:17] LABS: URINE BILIRUBIN NEGATIVE (NEGATIVE); URINE BLOOD NEGATIVE (NEGATIVE); URINE GLUCOSE (UA) NEGATIVE (NEGATIVE); URINE KETONE NEGATIVE (NEGATIVE); URINE LEUKOCYTE ESTERASE SMALL (NEGATIVE); URINE NITRATE NEGATIVE (NEGATIVE); URINE PH 6.5 (4.6 - 8.0); URINE PROTEIN NEGATIVE (NEGATIVE); URINE UROBILINOGEN 0.2 E.U./dL (0.2 - 1.0)
[2017-11-24 03:18] LABS: URINE CLARITY CLEAR (CLEAR); URINE COLOR YELLOW
[2017-11-24 03:22] LABS: URINE BACTERIA FEW /hpf (NONE SEEN); URINE EPITHELIAL CELLS OCCASIONAL /lpf (FEW); URINE RBC 0-2 /hpf (0-5)
[2017-11-24 03:30] LABS: PROTHROMBIN TIME (TEST) 10.4 SECONDS (9.5-11.5)
[2017-11-24 03:31] LABS: ALB/GLOB RATIO 1.1 (1.0-1.8); ALBUMIN 3.6 gm/dL (4.2-5.5); ALKALINE PHOSPHATASE 143 U/L (34-104); ANION GAP 10.5 (7.0-16.0); BILIRUBIN,TOTAL 0.3 mg/dL (0.3-1.0); BUN - UREA NITROGEN 16 mg/dL (7-25); CALCIUM SERUM 9.9 mg/dL (8.6-10.3); CARBON DIOXIDE 27.9 mEq/L (21.0-31.0); CHLORIDE 99 mEq/L (98-107); CREATININE - SERUM 0.7 mg/dL (0.7-1.3); GFR AFRICAN-AMERICAN > 60.0 ml/min (>90); GFR NON AFRICAN-AMERICAN > 60.0 ml/min; GLUCOSE 84 mg/dL (70-105); POTASSIUM SERUM 4.4 mEq/L (3.5-5.1); SGOT 31 U/L (13-39); SGPT/ALT 32 U/L (7-52); SODIUM SERUM 133 mEq/L (136-145)
--- NOTE | 2017-11-24 08:12 | Diagnostic Imaging Report ---
Portable chest x-ray HISTORY: Cough The exam is very limited due to difficulty in patient positioning and patient rotation/contracture. The left chest is partially obscured by the patient's overlying head. The heart size is difficult to assess. There is questionable increased density in the left lower hemithorax. A pleural effusion cannot be excluded. Little change compared with prior study of 11/07/2017. Old right rib fractures noted. IMPRESSION: 1. Suboptimal/Limited exam due to factors noted above 2. Questionable increased density in the left lower hemithorax. Pleural effusion cannot be excluded. However, little change compared to the prior study of November 07, 2017.
--- NOTE | 2017-11-24 09:31 | GI Progress Note ---
Subjective - Review of Systems Subjective: G tube internal balloon popped at [facility], here for replacement Objective - Results Result Diagrams: 11/24/17 03:00 11/24/17 03:00 Recent Labs: Laboratory Last Values WBC 10.8 Th/cmm (4.8-10.8) 11/24/17 03:00 RBC 3.67 Mil/cmm (4.30-5.70) L 11/24/17 03:00 Hgb 11.7 gm/dL (12-16) L 11/24/17 03:00 Hct 34.7 % (41.0-60) L 11/24/17 03:00 MCV 94.3 fl (80-99) 11/24/17 03:00 MCH 32.0 pg (26.0-30.0) H 11/24/17 03:00 MCHC Differential 33.9 pg (28.0-36.0) 11/24/17 03:00 RDW 14.8 % (11.5-20.0) 11/24/17 03:00 Plt Count 438 Th/cmm (150-400) H 11/24/17 03:00 MPV 7.4 fl 11/24/17 03:00 Neutrophils % 61.8 % (40.0-80.0) 11/24/17 03:00 Lymphocytes % 19.0 % (20.0-50.0) L 11/24/17 03:00 Monocytes % 12.5 % (2.0-10.0) H 11/24/17 03:00 Eosinophils % 6.2 % (0.0-5.0) H 11/24/17 03:00 Basophils % 0.5 % (0.0-2.0) 11/24/17 03:00 PT 10.4 SECONDS (9.5-11.5) 11/24/17 03:00 INR 1.00 (0.5-1.4) 11/24/17 03:00 PTT (Actin FS) 26.1 SECONDS (26.0-38.0) 11/24/17 03:00 Sodium 133 mEq/L (136-145) L 11/24/17 03:00 Potassium 4.4 mEq/L (3.5-5.1) 11/24/17 03:00 Chloride 99 mEq/L (98-107) 11/24/17 03:00 Carbon Dioxide 27.9 mEq/L (21.0-31.0) 11/24/17 03:00 Anion Gap 10.5 (7.0-16.0) 11/24/17 03:00 BUN 16 mg/dL (7-25) 11/24/17 03:00 Creatinine 0.7 mg/dL (0.7-1.3) 11/24/17 03:00 Est GFR ( Amer) > 60.0 ml/min (>90) 11/24/17 03:00 Est GFR (Non-Af Amer) > 60.0 ml/min 11/24/17 03:00 BUN/Creatinine Ratio 22.9 11/24/17 03:00 Glucose 84 mg/dL (70-105) 11/24/17 03:00 Whole Bld Lactic Acid 0.96 mmol/L (0.60-1.99) 11/24/17 03:00 Calcium 9.9 mg/dL (8.6-10.3) 11/24/17 03:00 Total Bilirubin 0.3 mg/dL (0.3-1.0) 11/24/17 03:00 AST 31 U/L (13-39) 11/24/17 03:00 ALT 32 U/L (7-52) 11/24/17 03:00 Alkaline Phosphatase 143 U/L (34-104) H 11/24/17 03:00 Total Protein 7.0 gm/dL (6.0-8.3) 11/24/17 03:00 Albumin 3.6 gm/dL (4.2-5.5) L 11/24/17 03:00 Globulin 3.4 gm/dL 11/24/17 03:00 Albumin/Globulin Ratio 1.1 (1.0-1.8) 11/24/17 03:00 Urine Source CATH 11/24/17 01:45 Urine Color YELLOW 11/24/17 01:45 Urine Clarity CLEAR (CLEAR) 11/24/17 01:45 Urine pH 6.5 (4.6 - 8.0) 11/24/17 01:45 Ur Specific [place] 1.010 (1.005-1.030) 11/24/17 01:45 Urine Protein NEGATIVE mg/dL (NEGATIVE) 11/24/17 01:45 Urine Glucose (UA) NEGATIVE mg/dL (NEGATIVE) 11/24/17 01:45 Urine Ketones NEGATIVE mg/dL (NEGATIVE) 11/24/17 01:45 Urine Blood NEGATIVE (NEGATIVE) 11/24/17 01:45 Urine Nitrate NEGATIVE (NEGATIVE) 11/24/17 01:45 Urine Bilirubin NEGATIVE (NEGATIVE) 11/24/17 01:45 Urine Urobilinogen 0.2 E.U./dL (0.2 - 1.0) 11/24/17 01:45 Ur Leukocyte Esterase SMALL (NEGATIVE) H 11/24/17 01:45 Urine RBC 0-2 /hpf (0-5) H 11/24/17 01:45 Urine WBC 6-10 /hpf (0-5) 11/24/17 01:45 Ur Epithelial Cells OCCASIONAL /lpf (FEW) 11/24/17 01:45 Urine Bacteria FEW /hpf (NONE SEEN) 11/24/17 01:45 - Physical Exam Vitals and I&O: Vital Signs Temp 97.0 F 11/24/17 07:09 Pulse 59 11/24/17 07:30 Resp 16 11/24/17 07:30 BP 109/65 11/24/17 07:30 Pulse Ox 98 11/24/17 07:30 General: Alert Abdomen: Soft, no Tender, no Hepatomegaly, no Splenomegaly, no Distended, no Mass, no Guarding - Procedures Procedures: Procedures Procedure Code Date BYPASS ILEUM TO CUTANEOUS, OPEN APPROACH [id number] 09/23/17 CHANGE FEEDING DEVICE IN UP INTEST TRACT, LACE WINDER APPROACH [id number] 11/01/17 CHANGE GASTROSTOMY TUBE 98099 11/01/17 DRAINAGE OF SMALL INTESTINE, OPEN APPROACH [id number] 11/01/17 EXPLORATION OF ABDOMEN 70923 11/01/17 FREEING OF BOWEL ADHESION 92299 11/01/17 ILEOSTOMY/JEJUNOSTOMY 12447 09/23/17 INSERTION OF ENDOTRACHEAL AIRWAY INTO TRACHEA, VIA OPENING [id number] 09/23/17 INSERTION OF FEEDING DEVICE INTO STOMACH, OPEN APPROACH [id number] 09/23/17 INTRODUCTION OF NUTRITIONAL INTO CENTRAL VEIN, PERC APPROACH [id number] 09/23/17 PARTIAL REMOVAL OF COLON 51779 09/23/[address] PL[address] GASTR[address]OMY TUBE 73934 09/23/17 RELEASE PERITONEUM, OPEN APPROACH [id number] 09/23/17 RELEASE SMALL INTESTINE, OPEN APPROACH [id number] 11/01/17 REPAIR SMALL INTESTINE, OPEN APPROACH [id number] 11/01/17 RESECTION OF LARGE INTESTINE, OPEN APPROACH [id number] 09/23/17 RESPIRATORY VENTILATION, LESS THAN 24 CONSECUTIVE HOURS [id number] 09/23/17 SUTURE SMALL INTESTINE 84533 11/01/17 Assessment/Plan - Assessment Assessment: # G tube malfunction # Cerebral palsey # 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 This was replaced at bedside with new 18F G tube. Plan: - confirm placement with KUB and gastrograffin injection - if confirmed, can start feeds - flush with 100cc water every 6 hours - hold for residual > 100cc
[2017-11-24] MEDS ORDERED: Diatrizoate Meglumine/Diatri 30 mL Sol PO ONE (09:32)
[2017-11-24] MEDS ORDERED: D5-0.9%NS 1,000 ML IV SCH (09:45)
--- NOTE | 2017-11-24 10:23 | Operative Report ---
DATE OF SURGERY: 11/24/2017 INPATIENT G-TUBE REPLACEMENT PROCEDURALIST: Fam Vila MD PREOPERATIVE DIAGNOSIS: G-tube dislodgement. POSTOPERATIVE DIAGNOSIS: G-tube replacement. INDICATIONS: The patient is a 62-year-old male with cerebral palsy, dysphagia with permanent G-tube, previous small-bowel obstruction and pseudo-obstruction requiring abdominal surgeries in the past, who was admitted to the hospital after it was noted that his G-tube internal balloon had popped and the G-tube became dislodged. PROCEDURE IN DETAIL: The previous G-tube was easily pulled out and it was noted that the internal balloon was not functioning any longer. A new 18-[place] G-tube was easily inserted into the gastrocutaneous fistula without resistance and the internal balloon was blown up with 15 mL of normal saline and demonstrated the appropriate amount of tension when pulled gently. The area was dressed with gauze after this and the procedure was complete. RECOMMENDATIONS: 1. Confirm placement with a KUB with Gastrografin injection through the G-tube; if in the stomach, feeds can be started. 2. Continue feeding as tolerated after this and flush the G-tube with 100 mL of water every 6 hours. 3. Check residuals every 8 hours and hold for residuals greater than 100 mL. Thank you for allowing us to participate in this patient's care. Please call with any further questions. JOB# [id number]
--- NOTE | 2017-11-24 10:48 | Diagnostic Imaging Report ---
Upper GI (Limited) HISTORY: Gastrostomy tube placement Water-soluble contrast was instilled through the patient's gastrostomy tube. The exam demonstrates opacification of the gastric lumen. IMPRESSION: 1. Confirmation of gastrostomy tube within the gastric lumen.
[2017-11-24] MEDS ORDERED: Albuterol Nebulizer 2.5mg/3mL HHN SCH (11:00)
[2017-11-24] MEDS ORDERED: Ipratropium Neb 0.5 mg/2.5 mL UD IH SCH (11:00)
[2017-11-24] MEDS ORDERED: Ipratropium Neb 0.5 mg/2.5 mL UD HHN SCH (12:00)
[2017-11-24] MEDS ORDERED: Guaifenesin DM 10 ML UDC PO PRN (12:31)
[2017-11-24] MEDS ORDERED: BISMUTH SUBSALICYLATE PO PRN (12:31)
[2017-11-24] MEDS ORDERED: Hydrocodone/APAP 5mg/325mg Tab PO PRN (12:31)
[2017-11-24] MEDS ORDERED: ACETAMINOPHEN 650 MG PO PRN (12:31)
--- NOTE | 2017-11-24 12:40 | Internal Medicine Prog Note ---
Internal Medicine Subjective - Subjective Service Date: 11/24/17 ([id number] hnp dictated) Internal Medicine Objective - Results Result Diagrams: 11/24/17 03:00 11/24/17 03:00 Recent Labs: Laboratory Last Values WBC 10.8 Th/cmm (4.8-10.8) 11/24/17 03:00 RBC 3.67 Mil/cmm (4.30-5.70) L 11/24/17 03:00 Hgb 11.7 gm/dL (12-16) L 11/24/17 03:00 Hct 34.7 % (41.0-60) L 11/24/17 03:00 MCV 94.3 fl (80-99) 11/24/17 03:00 MCH 32.0 pg (26.0-30.0) H 11/24/17 03:00 MCHC Differential 33.9 pg (28.0-36.0) 11/24/17 03:00 RDW 14.8 % (11.5-20.0) 11/24/17 03:00 Plt Count 438 Th/cmm (150-400) H 11/24/17 03:00 MPV 7.4 fl 11/24/17 03:00 Neutrophils % 61.8 % (40.0-80.0) 11/24/17 03:00 Lymphocytes % 19.0 % (20.0-50.0) L 11/24/17 03:00 Monocytes % 12.5 % (2.0-10.0) H 11/24/17 03:00 Eosinophils % 6.2 % (0.0-5.0) H 11/24/17 03:00 Basophils % 0.5 % (0.0-2.0) 11/24/17 03:00 PT 10.4 SECONDS (9.5-11.5) 11/24/17 03:00 INR 1.00 (0.5-1.4) 11/24/17 03:00 PTT (Actin FS) 26.1 SECONDS (26.0-38.0) 11/24/17 03:00 Sodium 133 mEq/L (136-145) L 11/24/17 03:00 Potassium 4.4 mEq/L (3.5-5.1) 11/24/17 03:00 Chloride 99 mEq/L (98-107) 11/24/17 03:00 Carbon Dioxide 27.9 mEq/L (21.0-31.0) 11/24/17 03:00 Anion Gap 10.5 (7.0-16.0) 11/24/17 03:00 BUN 16 mg/dL (7-25) 11/24/17 03:00 Creatinine 0.7 mg/dL (0.7-1.3) 11/24/17 03:00 Est GFR ( Amer) > 60.0 ml/min (>90) 11/24/17 03:00 Est GFR (Non-Af Amer) > 60.0 ml/min 11/24/17 03:00 BUN/Creatinine Ratio 22.9 11/24/17 03:00 Glucose 84 mg/dL (70-105) 11/24/17 03:00 Whole Bld Lactic Acid 0.96 mmol/L (0.60-1.99) 11/24/17 03:00 Calcium 9.9 mg/dL (8.6-10.3) 11/24/17 03:00 Total Bilirubin 0.3 mg/dL (0.3-1.0) 11/24/17 03:00 AST 31 U/L (13-39) 11/24/17 03:00 ALT 32 U/L (7-52) 11/24/17 03:00 Alkaline Phosphatase 143 U/L (34-104) H 11/24/17 03:00 Total Protein 7.0 gm/dL (6.0-8.3) 11/24/17 03:00 Albumin 3.6 gm/dL (4.2-5.5) L 11/24/17 03:00 Globulin 3.4 gm/dL 11/24/17 03:00 Albumin/Globulin Ratio 1.1 (1.0-1.8) 11/24/17 03:00 Urine Source CATH 11/24/17 01:45 Urine Color YELLOW 11/24/17 01:45 Urine Clarity CLEAR (CLEAR) 11/24/17 01:45 Urine pH 6.5 (4.6 - 8.0) 11/24/17 01:45 Ur Specific [place] 1.010 (1.005-1.030) 11/24/17 01:45 Urine Protein NEGATIVE mg/dL (NEGATIVE) 11/24/17 01:45 Urine Glucose (UA) NEGATIVE mg/dL (NEGATIVE) 11/24/17 01:45 Urine Ketones NEGATIVE mg/dL (NEGATIVE) 11/24/17 01:45 Urine Blood NEGATIVE (NEGATIVE) 11/24/17 01:45 Urine Nitrate NEGATIVE (NEGATIVE) 11/24/17 01:45 Urine Bilirubin NEGATIVE (NEGATIVE) 11/24/17 01:45 Urine Urobilinogen 0.2 E.U./dL (0.2 - 1.0) 11/24/17 01:45 Ur Leukocyte Esterase SMALL (NEGATIVE) H 11/24/17 01:45 Urine RBC 0-2 /hpf (0-5) H 11/24/17 01:45 Urine WBC 6-10 /hpf (0-5) 11/24/17 01:45 Ur Epithelial Cells OCCASIONAL /lpf (FEW) 11/24/17 01:45 Urine Bacteria FEW /hpf (NONE SEEN) 11/24/17 01:45 - Physical Exam Vitals and I&O: Vital Signs Temp 97.2 F 11/24/17 12:16 Pulse 61 11/24/17 12:16 Resp 18 11/24/17 12:16 BP 123/66 11/24/17 12:16 Pulse Ox 99 11/24/17 12:16 Active Medications: Current Medications Acetaminophen/Hydrocodone Bitart ([place]ce[place] 5mg/325mg) 1 tab PO Q6H PRN PRN Reason: PAIN/DISCOMFORT Stop: 01/23/18 12:30 Al Hydrox/Mg Hydrox/Simethicone (Maalox) ml PO DAILY CHANDAN Stop: 01/24/18 08:59 Albuterol Sulfate (Albuterol 2.5mg/3ml Neb Ud) 2.5 mg HHN QIDRT CHANDAN Stop: 01/23/18 10:59 Last Admin: 11/24/17 11:32 Dose: Not Given Albuterol/Ipratropium (Duoneb Neb) 3 ml HHN BID [facility] Stop: 01/23/18 16:59 Benztropine Mesylate (Cogentin) 1 mg PO BID [facility]AN Stop: 01/23/18 16:59 Calcium Carbonate (Calcium Carb) 648 mg PO BID [facility]AN Stop: 01/23/18 16:59 Chlorhexidine Gluconate (Peridex) 15 ml MM DAILY [facility] Stop: 01/24/18 08:59 Dorzolamide/Timolol (Cosopt Ophth Soln) 1 drop EACH EYE BID [facility] Stop: 01/23/18 16:59 Escitalopram Oxalate (Lexapro) 20 mg PO DAILY CHANDAN PRN Reason: Protocol Stop: 01/24/18 08:59 Finasteride (Proscar) 5 mg PO DAILY CHANDAN PRN Reason: Protocol Stop: 01/24/18 08:59 Fluticasone Propionate (Flonase) 2 spr NS DAILY [facility] Stop: 01/24/18 08:59 Folic Acid (Folate) 1 mg PO DAILY [facility] Stop: 01/24/18 08:59 Guaifenesin/Dextromethorphan (Robitussin Dm) 10 ml PO Q4H PRN PRN Reason: Cough Stop: 01/23/18 12:30 Heparin Sodium (Porcine) (Heparin) 5,000 units SUBQ Q12HR [facility]AN Stop: 01/23/18 20:59 Hydrocortisone (Hydrocortisone 1%) 1 appl TP BID PRN PRN Reason: Rash Stop: 01/23/18 12:30 Dextrose/Sodium Chloride (D5-0.9%Ns) 1,000 mls @ 100 mls/hr IV .Q10H [facility]AN Stop: 01/23/18 09:44 Last Admin: 11/24/17 10:10 Dose: 100 mls/hr Ibuprofen (Motrin) mg PO Q6H PRN PRN Reason: Pain (Mild) Stop: 01/23/18 12:30 Ipratropium [place] (Atrovent Neb 0.5mg/2.5ml) 0.5 mg HHN QIDRT CHANDAN Stop: 01/23/18 10:59 Lactulose (Cephulac) 20 gm PO TID [facility] Stop: 01/23/18 13:59 Latanoprost (Xalatan 0.005% Ophth Soln) 1 drop EACH EYE HS [facility] Stop: 01/23/18 20:59 Levetiracetam (Keppra) 1,000 mg PO BID [facility] Stop: 01/23/18 16:59 Levocarnitine (Carnitor) 660 mg PO TID [facility] Stop: 01/23/18 13:59 Levothyroxine Sodium (Synthroid) mg PO DAILY [facility] Stop: 01/24/18 08:59 Loratadine (Claritin) mg PO DAILY [facility] Stop: 01/24/18 08:59 Lorazepam (Ativan) mg IM PRN PRN; Protocol PRN Reason: Seizure Stop: 01/23/18 12:30 Methotrexate (Methotrexate) mg PO QWEEK 0730 [facility]AN PRN Reason: Protocol Stop: 01/23/18 12:44 Miscellaneous (Acetaminophen [Tylenol Arthritis]) 650 mg PO Q6H PRN PRN Reason: PAIN OR FEVER >100 Miscellaneous (Biotin [Biotin]) 1,000 mcg PO DAILY [facility]AN Stop: 01/24/18 08:59 Miscellaneous (Bismatrol) 2 tsp PO Q4H PRN PRN Reason: STOMACH DISCOMFORT, N/V Miscellaneous (Brinzolamide/Brimonidine Tart [Simbrinza 1%-0.2% Eye Drops]) 1 drop EACH EYE BID [facility] Stop: 01/23/18 16:59 Miscellaneous (Clobazam [Onfi]) 1 tab PO BID [facility] Stop: 01/23/18 16:59 Miscellaneous (Clonazepam [Clonazepam*]) 1 mg PO BID [facility] Stop: 01/23/18 16:59 Miscellaneous (Ergocalciferol (Vitamin D2) [Ergocalciferol]) 7 drop PO DAILY [facility] Stop: 01/24/18 08:59 Miscellaneous (Erythromycin Base [Erythromycin]) 250 mg PO DAILY [facility] Stop: 01/24/18 08:59 Miscellaneous (Eslicarbazepine Acetate [Aptiom]) 600 mg PO 1700 [facility] Stop: 01/23/18 16:59 Miscellaneous (L. Acidophilus/L.Bulgaricus [Lactinex Chewable Tablet]) 1 each PO BID [facility] Stop: 01/23/18 16:59 Miscellaneous (Lamotrigine [Lamotrigine]) 350 mg PO HS [facility] Stop: 01/23/18 20:59 Miscellaneous (Lamotrigine [Lamotrigine]) 200 mg PO DAILY [facility] Stop: 01/24/18 08:59 Miscellaneous (Miconazole Nitrate [Lotrimin Af]) 1 dose TP BID [facility] Stop: 01/23/18 16:59 Miscellaneous (Mineral Oil/Hydrophil Petrolat [Aquaphor Ointment]) 1 appl TP BID [facility] Stop: 01/23/18 16:59 Miscellaneous (Multivit,Th Iron,Other Min [Thera-M]) 1 tab PO DAILY [facility] Stop: 01/24/18 08:59 Miscellaneous (Rifaximin [Xifaxan]) 1 tab PO BID [facility] Stop: 01/23/18 16:59 Ondansetron HCl (Zofran) 4 mg IV Q8H PRN PRN Reason: Nausea / Vomiting Stop: 01/23/18 09:40 Quetiapine Fumarate (Seroquel) mg PO BID [facility] PRN Reason: Protocol Stop: 01/23/18 16:59 Simethicone (Gas Relief Drops) 120 mg PO Q6H [facility] Stop: 01/23/18 12:44 Sodium Chloride ([place]) spr NS QID [facility] Stop: 01/23/18 12:59 Tamsulosin HCl (Flomax) mg PO HS [facility] Stop: 01/23/18 20:59 - Procedures Procedures: Procedures Procedure Code Date BYPASS ILEUM TO CUTANEOUS, OPEN APPROACH [id number] 09/23/17 CHANGE FEEDING DEVICE IN UP INTEST TRACT, PHYSICIAN/INTERNIST APPROACH [id number] 11/01/17 CHANGE GASTROSTOMY TUBE 81454 11/01/17 DRAINAGE OF SMALL INTESTINE, OPEN APPROACH [id number] 11/01/17 EXPLORATION OF ABDOMEN 52128 11/01/17 FREEING OF BOWEL ADHESION 45978 11/01/17 ILEOSTOMY/JEJUNOSTOMY 05124 09/23/17 INSERTION OF ENDOTRACHEAL AIRWAY INTO TRACHEA, VIA OPENING [id number] 09/23/17 INSERTION OF FEEDING DEVICE INTO STOMACH, OPEN APPROACH [id number] 09/23/17 INTRODUCTION OF NUTRITIONAL INTO CENTRAL VEIN, PERC APPROACH [id number] 09/23/17 PARTIAL REMOVAL OF COLON 77808 09/23/[address] PLACE GASTROSTOMY TUBE 27977 09/23/17 RELEASE PERITONEUM, OPEN APPROACH [id number] 09/23/17 RELEASE SMALL INTESTINE, OPEN APPROACH [id number] 11/01/17 REPAIR SMALL INTESTINE, OPEN APPROACH [id number] 11/01/17 RESECTION OF LARGE INTESTINE, OPEN APPROACH [id number] 09/23/17 RESPIRATORY VENTILATION, LESS THAN 24 CONSECUTIVE HOURS [id number] 09/23/17 SUTURE SMALL INTESTINE 81623 11/01/17
[2017-11-24] MEDS ORDERED: Saline 0.65% Nasal Spray NS SCH (13:00)
[2017-11-24] MEDS ORDERED: Chlorhexidine Gluconate 0.12% 15mL Mouthwash MM SCH (13:30)
[2017-11-24] MEDS ORDERED: Lactulose 10 Gm/15 mL 30mL UDC PO SCH (14:00)
[2017-11-24] MEDS ORDERED: Maalox 30 mL Cup PO SCH (14:00)
--- NOTE | 2017-11-24 15:47 | History & Physical ---
ADMIT DATE: 11/24/2017 DICTATED FOR: Zack Rick D.O. CHIEF COMPLAINT: G-tube malfunction. HISTORY OF PRESENT ILLNESS: This is a 62-year-old male who is a resident of [facility], who was admitted here to the [facility] unit due to G-tube malfunction. The patient's G-tube was replaced at bedside by real estate legal assistant, Dr. Vila. At this time, the patient is awake, alert, in no apparent distress. PAST MEDICAL HISTORY: Cerebral palsy, seizure, recent colectomy with ileostomy, generalized contractures. PAST SURGICAL HISTORY: Colectomy, ileostomy. ALLERGIES: DEPAKOTE, FLUOXETINE, MAGNESIUM HYDROXIDE, REGLAN, and ZOFRAN. MEDICATIONS: Fosamax, calcium, chlorhexidine, loratadine, lorazepam, Tylenol, Cogentin, clonazepam, finasteride, Flonase, folic acid, ibuprofen, [place], lactulose, Lamictal, albuterol, Synthroid, methotrexate, multivitamin, and rifaximin. FAMILY HISTORY: Noncontributory. SOCIAL HISTORY: The patient is a [facility] resident, requiring 24-hour nursing care. REVIEW OF SYSTEMS: GENERAL: Denies any fevers and chills. CARDIOVASCULAR: Denies chest pain. RESPIRATORY: Denies shortness of breath. GASTROINTESTINAL: Denies nausea, vomiting, or abdominal pain. GENITOURINARY: Denies increased frequency or dysuria. NEUROLOGIC: No headaches, seizures, or syncope. All other systems are reviewed and are negative. PHYSICAL EXAMINATION: GENERAL: Elderly male, awake, alert, in no apparent distress. VITAL SIGNS: Temperature 97.2, heart rate 61, blood pressure 123/66, respirations 18, and O2 99%. HEENT: Head; normocephalic, atraumatic. NECK: Supple. No mass. LUNGS: Clear bilaterally. HEART: Regular rhythm. ABDOMEN: Soft, nontender, nondistended. LABORATORY DATA: WBC 10.8, H and H 11.7 and 34.7, and platelet of 438. Sodium 132, potassium 4.4, chloride 99, BUN 16, creatinine 0.7, and albumin 3.6. The patient had a chest x-ray done and impression is suboptimal limited exam due to factors noted above, possibly some increased density in the left hemothorax, pleural effusion cannot be excluded. ASSESSMENT: G-tube malfunction, status post replacement. Mild protein calorie malnutrition, acute renal insufficiency, ____, mitral regurigtation, cerebral palsy, seizure, and generalized contractures. PLAN: The patient to resume feedings as per GI. I will monitor the patient's residuals. We will get the patient's followup labs for tomorrow morning. We will continue to follow this patient. JOB# [id number]
[2017-11-24] MEDS ORDERED: RIFAXIMIN PO SCH (17:00)
[2017-11-24] MEDS ORDERED: ACIDOPHILUS PO SCH (17:00)
[2017-11-24] MEDS ORDERED: Albuterol/Ipratropium Neb 3 ML AERS HHN SCH (17:00)
[2017-11-24] MEDS ORDERED: BULGARICUS PO SCH (17:00)
[2017-11-24] MEDS ORDERED: ESLICARBAZEPINE ACETATE 600 MG PO SCH (17:00)
[2017-11-24] MEDS ORDERED: Non-Formulary Item 1 EA (Brinzolamide/Brimonidine Tart [Simbrinza 1%-0.2% Eye Drops] 1 DRO EACH EYE SCH (17:00)
[2017-11-24] MEDS ORDERED: MICONAZOLE NITRATE TP SCH (17:00)
[2017-11-24] MEDS ORDERED: HYDROPHIL PETROLAT TP SCH (17:00)
[2017-11-24] MEDS ORDERED: [UNRECOGNIZED DRUG - OTHER] TP SCH (17:00)
[2017-11-24] MEDS ORDERED: CLONAZEPAM 1 MG PO SCH (17:00)
[2017-11-24] MEDS ORDERED: CLOBAZAM PO SCH (17:00)
[2017-11-24] MEDS ORDERED: Benztropine 1 MG TAB PO SCH (17:00)
[2017-11-24] MEDS ORDERED: LAMOTRIGINE PO SCH (21:00)
[2017-11-25] MEDS ORDERED: Chlorhexidine Gluconate 0.12% 480mL Bottle MM SCH (09:00)
[2017-11-25] MEDS ORDERED: Non-Formulary Item 1 EA (Lamotrigine [Lamotrigine] 200 MG) PO SCH (09:00)
[2017-11-25] MEDS ORDERED: Multivitamin w/ Minerals Tab PO SCH (09:00)
[2017-11-25] MEDS ORDERED: BIOTIN 1000 MCG PO SCH (09:00)
[2017-11-25] MEDS ORDERED: ERGOCALCIFEROL PO SCH (09:00)
[2017-11-25] MEDS ORDERED: Fluticasone Propionate 0.05mg/Actuation 16gm Nasal Spray NS SCH (09:00)
[2017-11-25] MEDS ORDERED: Levothyroxine 0.125 Mg Tab PO SCH (09:00)
[2017-11-25] MEDS ORDERED: ERYTHROMYCIN BASE 250 MG PO SCH (09:00)
== END 2017-11-24 16:13 | disposition home or self-care (01) | DRG 393 ==
LOC: ER 01:37 → MSI 07:38
PROVIDERS: ADMIT Internal Medicine; ATTEND Internal Medicine
PROC: 0D20XUZ Change Feeding Device in Upper Intestinal Tract, External Approach (ICD-10-PCS; principal; 2017-11-24)
DX: K94.23 Gastrostomy malfunction (principal); R53.2 Functional quadriplegia; G80.9 Cerebral palsy, unspecified; Z88.8 Allergy status to other drugs, medicaments and biological substances; Y83.9 Surgical procedure, unspecified as the cause of abnormal reaction of the patient, or of later complication, without mention of misadventure at the time of the procedure
CPT/HCPCS: 36415-UA; 71045-TC; 80053-TC; 81001-TC; 83605; 85025-TC; 85610-TC; 90779; 94760; J7042; J7613; Z7610

== ENCOUNTER 2018-02-01 13:01 | Inpatient (IN) | payer MEDICARE, MEDICAID ==
[2018-02-01] MEDS ORDERED: Lactated Ringer 1,000 ML IV SCH (13:30)
[2018-02-01 13:59] LABS: % BASOPHILS 0.8 % (0.0-2.0); % EOSINOPHILS 4.8 % (0.0-5.0); % MONOCYTES 9.6 % (2.0-10.0); % NEUTROPHILS 71.8 % (40.0-80.0); BASOPHILE ABSOLUTE 0.1 Th/cumm (0-0.2); EOSINOPHILE ABSOLUTE 0.6 Th/cmm (0.1-0.4); HEMATOCRIT 36.2 % (41.0-60); HEMOGLOBIN 12.5 gm/dL (12-16); LYMPHOCYTE ABSOLUTE 1.5 Th/cmm (1.5-3.0); MEAN CELL VOLUME 94.8 fl (80-99); MEAN CORPUSCULAR HEMOGLOBIN 32.8 pg (26.0-30.0); MEAN CORPUSCULAR HGB CONC 34.6 pg (28.0-36.0); MEAN PLATELET VOLUME 7.6 fl; MONOCYTE ABSOLUTE 1.1 Th/cmm (0.3-1.0); NEUTROPHILE ABSOLUTE 8.4 Th/cmm (1.8-8.0); PLATELET COUNT 338 Th/cmm (150-400); RED BLOOD COUNT 3.82 Mil/cmm (4.30-5.70); WHITE BLOOD COUNT 11.7 Th/cmm (4.8-10.8)
[2018-02-01 14:16] LABS: ALB/GLOB RATIO 1.1 (1.0-1.8); ALBUMIN 3.8 gm/dL (4.2-5.5); ALKALINE PHOSPHATASE 161 U/L (34-104); ANION GAP 12.1 (7.0-16.0); BILIRUBIN,TOTAL 0.3 mg/dL (0.3-1.0); BUN - UREA NITROGEN 59 mg/dL (7-25); CARBON DIOXIDE 27.9 mEq/L (21.0-31.0); CHLORIDE 100 mEq/L (98-107); GFR AFRICAN-AMERICAN > 60.0 ml/min (>90); GFR NON AFRICAN-AMERICAN > 60.0 ml/min; GLUCOSE 101 mg/dL (70-105); MAGNESIUM 2.3 mg/dL (1.9-2.7); PHOSPHOROUS 4.7 mg/dL (2.5-5.0); SGOT 20 U/L (13-39); SGPT/ALT 24 U/L (7-52); SODIUM SERUM 135 mEq/L (136-145); TOTAL PROTEIN,SERUM 7.2 gm/dL (6.0-8.3)
[2018-02-01 14:29] LABS: URINE MICROSCOPIC INDICATED? YES; URINE SOURCE CATH
[2018-02-01 14:31] LABS: URINE BILIRUBIN NEGATIVE (NEGATIVE); URINE BLOOD LARGE (NEGATIVE); URINE GLUCOSE (UA) NEGATIVE (NEGATIVE); URINE KETONE NEGATIVE (NEGATIVE); URINE LEUKOCYTE ESTERASE MODERATE (NEGATIVE); URINE NITRATE POSITIVE (NEGATIVE); URINE PROTEIN TRACE mg/dL (NEGATIVE); URINE UROBILINOGEN 0.2 E.U./dL (0.2 - 1.0)
[2018-02-01 14:37] LABS: URINE COLOR YELLOW
[2018-02-01 14:38] LABS: URINE CLARITY HAZY (CLEAR)
[2018-02-01 14:41] LABS: URINE BACTERIA MANY /hpf (NONE SEEN); URINE EPITHELIAL CELLS FEW /lpf (FEW)
[2018-02-01] MEDS ORDERED: Ciprofloxacin 400mg Premix PB 400 MG/200 ML BAG IV ONE ×2 (14:49→15:04)
--- NOTE | 2018-02-01 14:57 | ED Physician Chart ---
ED Chief Complaint/HPI - Patient Information Date Seen:: 02/01/18 Time Seen:: 13:15 Chief Complaint:: ileostomy infection History of Present Illness:: colostomy infection and adhesive reaction. 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 He does not eat anything except for birthday cake which he had last week and did not aspirate at that time according to nurse Chairez from [facility]. He has had a g tube since he had the colostomy placed. Allergies:: Allergies Allergy/AdvReac Type Severity Reaction Status Date / Time buspirone [From BuSpar] Allergy Verified 11/24/17 01:51 divalproex sodium Allergy Verified 11/24/17 01:51 [From Depakote] fluoxetine Allergy Verified 11/24/17 01:51 magnesium hydroxide Allergy Verified 11/24/17 01:51 [From Milk of Magnesia] metoclopramide Allergy Verified 11/24/17 01:51 ondansetron Allergy Verified 11/24/17 01:51 Vitals:: Vital Signs - 8 hr 02/01/18 13:14 Temp 98.8 F HR 80 RR 17 BP 108/57 O2 Sat % 96 ED Past Medical History - Past Medical History Past Medical History: Thyroid disorder, Other (seizure disorder (s/p vagal nerve stimulator); ileostomy for megacolon; g-tube dependent; torticollosis) Family History: Other (non contributory) Social History: Non Smoker Surgical History: PEG/GTube, other (colon resection) Family Medical History - Family Member Mother History Unknown: Yes Ethnicity: Non- Living Status: Unknown Father History Unknown: Yes Ethnicity: Unknown Living Status: Unknown ED Physical Exam - Physical Examination Other Gen/Cons comments:: chronically ill appearing Head: Atraumatic Eyes: Lids, conjuctiva normal, PERRL, EOMI Other Skin comments:: decreased skin turgor Rash present on the right lateral abdomen which looks to be due to adhesive reaction with red splotches present. Area directly around the ileostomy is beefy red in color and appears to be granulation tissue, but there are additional red dots present laterally from the site as well. there is yellow stool present at the ileostomy site. ENMT: External ears, nose nl, Nasal exam nl, Lips, teeth, gums nl Other ENMT comments:: dry mucosa with thick saliva present. no evidence of thrush. Other Neck comments:: left neck is permanently fixed down to the patient's left upper chest area (has been worse over the past 2 years according to the facility Respiratory: Nl effort/Exclusion, Clear to Auscultation, No Wheeze/Rhonchi/Rales Cardio Vascular: RRR, No murmur, gallop, rubs, NL S1 S2 GI: No tenderness/rebounding/guarding, No organomegaly, No hernia, Normal BS's, Nondistended, No mass/bruits, No McBurney tenderness : No CVA tenderness Extremities: No tenderness or effusion, Full ROM, No edema, Normal digits & nails Other Extremities comments:: decreased oracle solutions architect strength on R which is chronic. decreased R foot plantar flexion which is chronic. Neuro/Psych: Mood normal Other Neuro/Psych comments:: patient occasionally smiles and makes noises in response to Mihaela, the nurse. Mental age is that of a 9 year old. Misc: Normal back, No paraspinal tenderness ED Labs/Radiology/EKG Results - Lab Results Results: Laboratory Tests 02/01/18 02/01/18 02/01/18 13:39 13:39 13:39 WBC 11.7 H RBC 3.82 L Hgb 12.5 Hct 36.2 L MCV 94.8 MCH 32.8 H MCHC Differential 34.6 RDW 15.0 Plt Count 338 MPV 7.6 Neutrophils % 71.8 Lymphocytes % 13.0 L Monocytes % 9.6 Eosinophils % 4.8 Basophils % 0.8 Sodium 135 L Potassium 5.0 Chloride 100 Carbon Dioxide 27.9 Anion Gap 12.1 BUN 59 H Creatinine 1.0 Est GFR ( Amer) > 60.0 Est GFR (Non-Af Amer) > 60.0 BUN/Creatinine Ratio 59.0 Glucose 101 Whole Bld Lactic Acid 0.80 Calcium 11.0 H Phosphorus 4.7 Magnesium 2.3 Total Bilirubin 0.3 AST 20 ALT 24 Alkaline Phosphatase 161 H Total Protein 7.2 Albumin 3.8 L Globulin 3.4 Albumin/Globulin Ratio 1.1 Urine Source Urine Color Urine Clarity Urine pH Ur Specific [place] Urine Protein Urine Glucose (UA) Urine Ketones Urine Blood Urine Nitrate Urine Bilirubin Urine Urobilinogen Ur Leukocyte Esterase Urine RBC Urine WBC Ur Epithelial Cells Urine Bacteria Urine Mucus 02/01/18 14:14 WBC RBC Hgb Hct MCV MCH MCHC Differential RDW Plt Count MPV Neutrophils % Lymphocytes % Monocytes % Eosinophils % Basophils % Sodium Potassium Chloride Carbon Dioxide Anion Gap BUN Creatinine Est GFR ( Amer) Est GFR (Non-Af Amer) BUN/Creatinine Ratio Glucose Whole Bld Lactic Acid Calcium Phosphorus Magnesium Total Bilirubin AST ALT Alkaline Phosphatase Total Protein Albumin Globulin Albumin/Globulin Ratio Urine Source CATH Urine Color YELLOW Urine Clarity HAZY Urine pH 6.0 Ur Specific Union 1.020 Urine Protein TRACE Urine Glucose (UA) NEGATIVE Urine Ketones NEGATIVE Urine Blood LARGE H Urine Nitrate POSITIVE H Urine Bilirubin NEGATIVE Urine Urobilinogen 0.2 Ur Leukocyte Esterase MODERATE H Urine RBC 10-25 H Urine WBC 6-10 Ur Epithelial Cells FEW Urine Bacteria MANY H Urine Mucus FEW ED Assessment - Assessment General Assessment: Dr. Rick sent the patient over from [facility] and Dr. Rick has already called in orders for this patient. Assessment/Comments:: Dr. Rick called in with admit order at 14:32. Will hang ciprofloxacin before taking the patient over. CXR with left mandible and jaw on the left upper chest area. No obvious infiltrate present. ED Septic Shock - . 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
[2018-02-01] MEDS ORDERED: Lactated Ringer 1,000 ML IV ONE (15:04)
[2018-02-01] MEDS ORDERED: Albuterol Nebulizer 2.5mg/3mL HHN PRN (15:21)
[2018-02-01] MEDS ORDERED: ACETAMINOPHEN 650 MG GT PRN (15:21)
[2018-02-01] MEDS ORDERED: ESLICARBAZEPINE ACETATE 600 MG GT SCH (16:00)
[2018-02-01] MEDS: D5-0.9%NS 1,000 ML IV SCH (16:08)
[2018-02-01] MEDS: APTIOM GT SCH (16:18)
[2018-02-01] MEDS: Dextrose 10% 1,000 ML IV SCH (16:28)
[2018-02-01] MEDS: ONFI GT SCH (16:46)
[2018-02-01] MEDS: Benztropine 1 MG TAB GT SCH (16:46)
[2018-02-01] MEDS ORDERED: CLOBAZAM 20 MG GT SCH (17:00)
[2018-02-01] MEDS ORDERED: Non-Formulary Item 1 EA (Brinzolamide/Brimonidine Tart [Simbrinza 1%-0.2% Eye Drops] 1 DRO EACH EYE SCH (17:00)
[2018-02-01] MEDS ORDERED: RIFAXIMIN GT SCH (17:00)
[2018-02-01] MEDS: Ipratropium Neb 0.5 mg/2.5 mL UD HHN SCH (19:13)
[2018-02-01] MEDS: Zinc Oxide Ointment 60 gm TP SCH (20:00)
[2018-02-01 20:06] VITALS: BP 110/70
[2018-02-01] MEDS ORDERED: LAMOTRIGINE GT SCH (21:00)
[2018-02-01] MEDS: Saline 0.65% Nasal Spray NS SCH (21:01)
[2018-02-01] MEDS: Chlorhexidine Gluconate 0.12% 480mL Bottle MM SCH (21:08)
[2018-02-02] MEDS: D5-0.9%NS 1,000 ML IV SCH (04:53)
[2018-02-02 06:20] LABS: ALB/GLOB RATIO 1.1 (1.0-1.8); ALBUMIN 3.2 gm/dL (4.2-5.5); ALKALINE PHOSPHATASE 131 U/L (34-104); ANION GAP 10.2 (7.0-16.0); BILIRUBIN,TOTAL 0.5 mg/dL (0.3-1.0); BUN - UREA NITROGEN 38 mg/dL (7-25); CALCIUM SERUM 9.7 mg/dL (8.6-10.3); CARBON DIOXIDE 26.8 mEq/L (21.0-31.0); CHLORIDE 102 mEq/L (98-107); CREATININE - SERUM 0.9 mg/dL (0.7-1.3); GFR AFRICAN-AMERICAN > 60.0 ml/min (>90); GFR NON AFRICAN-AMERICAN > 60.0 ml/min; GLUCOSE 89 mg/dL (70-105); MAGNESIUM 1.7 mg/dL (1.9-2.7); PHOSPHOROUS 3.8 mg/dL (2.5-5.0); SGOT 20 U/L (13-39); SGPT/ALT 23 U/L (7-52); SODIUM SERUM 135 mEq/L (136-145)
[2018-02-02] MEDS: Ipratropium Neb 0.5 mg/2.5 mL UD HHN SCH ×2 (06:57→18:59)
--- NOTE | 2018-02-02 08:05 | Diagnostic Imaging Report ---
Portable chest x-ray Time: 1431 History: Aspiration Allowing for portable technique the heart size is normal. No focal pulmonary parenchymal processes. No hilar or mediastinal abnormalities. Deformity of the left shoulder had most likely chronic. Impression: No acute abnormalities.
[2018-02-02] MEDS ORDERED: Non-Formulary Item 1 EA (Multivit,Th Iron,Other Min [Thera-M] 1 TAB) GT SCH (09:00)
[2018-02-02] MEDS ORDERED: Multivitamin w/ Minerals 15 mL UDC GT SCH (09:00)
[2018-02-02] MEDS ORDERED: Non-Formulary Item 1 EA (Lamotrigine [Lamotrigine] 200 MG) GT SCH (09:00)
[2018-02-02] MEDS: Zinc Oxide Ointment 60 gm TP SCH ×2 (09:30→20:00)
[2018-02-02] MEDS: Fluticasone Propionate Nasal 1 SPR SPR NS SCH (09:44)
[2018-02-02] MEDS: Petrolatum (White) Oint 0.6 Oz Tube TP SCH ×2 (09:45→18:49)
[2018-02-02] MEDS: Benztropine 1 MG TAB GT SCH ×2 (09:46→18:49)
[2018-02-02] MEDS: Saline 0.65% Nasal Spray NS SCH ×4 (10:41→21:00)
[2018-02-02] MEDS: Levothyroxine 0.125 Mg Tab GT SCH (12:15)
[2018-02-02] MEDS: ONFI GT SCH ×2 (12:15→16:38)
[2018-02-02] MEDS: Dextrose 10% 1,000 ML IV SCH (13:01)
--- NOTE | 2018-02-02 14:17 | Internal Medicine Prog Note ---
Internal Medicine Subjective - Subjective Service Date: 02/02/18 ([id number]) Internal Medicine Objective - Results Result Diagrams: 02/01/18 13:39 02/02/18 05:05 Recent Labs: Laboratory Last Values WBC 11.7 Th/cmm (4.8-10.8) H 02/01/18 13:39 RBC 3.82 Mil/cmm (4.30-5.70) L 02/01/18 13:39 Hgb 12.5 gm/dL (12-16) 02/01/18 13:39 Hct 36.2 % (41.0-60) L 02/01/18 13:39 MCV 94.8 fl (80-99) 02/01/18 13:39 MCH 32.8 pg (26.0-30.0) H 02/01/18 13:39 MCHC Differential 34.6 pg (28.0-36.0) 02/01/18 13:39 RDW 15.0 % (11.5-20.0) 02/01/18 13:39 Plt Count 338 Th/cmm (150-400) 02/01/18 13:39 MPV 7.6 fl 02/01/18 13:39 Neutrophils % 71.8 % (40.0-80.0) 02/01/18 13:39 Lymphocytes % 13.0 % (20.0-50.0) L 02/01/18 13:39 Monocytes % 9.6 % (2.0-10.0) 02/01/18 13:39 Eosinophils % 4.8 % (0.0-5.0) 02/01/18 13:39 Basophils % 0.8 % (0.0-2.0) 02/01/18 13:39 Sodium 135 mEq/L (136-145) L 02/02/18 05:05 Potassium 4.0 mEq/L (3.5-5.1) 02/02/18 05:05 Chloride 102 mEq/L (98-107) 02/02/18 05:05 Carbon Dioxide 26.8 mEq/L (21.0-31.0) 02/02/18 05:05 Anion Gap 10.2 (7.0-16.0) 02/02/18 05:05 BUN 38 mg/dL (7-25) H 02/02/18 05:05 Creatinine 0.9 mg/dL (0.7-1.3) 02/02/18 05:05 Est GFR ( Amer) > 60.0 ml/min (>90) 02/02/18 05:05 Est GFR (Non-Af Amer) > 60.0 ml/min 02/02/18 05:05 BUN/Creatinine Ratio 42.2 02/02/18 05:05 Glucose 89 mg/dL (70-105) 02/02/18 05:05 Whole Bld Lactic Acid 0.80 mmol/L (0.60-1.99) 02/01/18 13:39 Calcium 9.7 mg/dL (8.6-10.3) 02/02/18 05:05 Phosphorus 3.8 mg/dL (2.5-5.0) 02/02/18 05:05 Magnesium 1.7 mg/dL (1.9-2.7) L 02/02/18 05:05 Total Bilirubin 0.5 mg/dL (0.3-1.0) 02/02/18 05:05 AST 20 U/L (13-39) 02/02/18 05:05 ALT 23 U/L (7-52) 02/02/18 05:05 Alkaline Phosphatase 131 U/L (34-104) H 02/02/18 05:05 Total Protein 6.0 gm/dL (6.0-8.3) 02/02/18 05:05 Albumin 3.2 gm/dL (4.2-5.5) L 02/02/18 05:05 Globulin 2.8 gm/dL 02/02/18 05:05 Albumin/Globulin Ratio 1.1 (1.0-1.8) 02/02/18 05:05 Triglycerides 178 mg/dL (<150) H 02/02/18 05:05 Cholesterol 125 mg/dL (<200) 02/02/18 05:05 TSH 0.27 uIU/ml (0.34-5.60) L 02/01/18 13:39 Urine Source CATH 02/01/18 14:14 Urine Color YELLOW 02/01/18 14:14 Urine Clarity HAZY (CLEAR) 02/01/18 14:14 Urine pH 6.0 (4.6 - 8.0) 02/01/18 14:14 Ur Specific [place] 1.020 (1.005-1.030) 02/01/18 14:14 Urine Protein TRACE mg/dL (NEGATIVE) 02/01/18 14:14 Urine Glucose (UA) NEGATIVE mg/dL (NEGATIVE) 02/01/18 14:14 Urine Ketones NEGATIVE mg/dL (NEGATIVE) 02/01/18 14:14 Urine Blood LARGE (NEGATIVE) H 02/01/18 14:14 Urine Nitrate POSITIVE (NEGATIVE) H 02/01/18 14:14 Urine Bilirubin NEGATIVE (NEGATIVE) 02/01/18 14:14 Urine Urobilinogen 0.2 E.U./dL (0.2 - 1.0) 02/01/18 14:14 Ur Leukocyte Esterase MODERATE (NEGATIVE) H 02/01/18 14:14 Urine RBC 10-25 /hpf (0-5) H 02/01/18 14:14 Urine WBC 6-10 /hpf (0-5) 02/01/18 14:14 Ur Epithelial Cells FEW /lpf (FEW) 02/01/18 14:14 Urine Bacteria MANY /hpf (NONE SEEN) H 02/01/18 14:14 Urine Mucus FEW /lpf (FEW) 02/01/18 14:14 - Physical Exam Vitals and I&O: Vital Signs Temp 97.2 F 02/02/18 12:00 Pulse 66 02/02/18 12:00 Resp 18 02/02/18 12:00 BP 101/51 02/02/18 12:00 Pulse Ox 96 02/02/18 12:00 Intake & Output 02/01/18 02/02/18 02/02/18 18:59 06:59 18:59 Intake Total 314.734 3484.333 1000 Balance 502.805 8109.333 1000 Weight (lbs) 170 lb 157 lb Intake: Intake, IV Amount 515.607 5166.333 1000 D5-0.9%Ns 1,000 ml @ 80 9.333 977.333 mls/hr IV .[id number] [facility] Rx #:[id number] Dextrose 10% 1,000 ml @ 1000 50 mls/hr IV .Q20H [facility] Rx #:[id number] Levetiracetam 1,000 mg In 110 Sodium Chloride 0.9% 100 ml @ 400 mls/hr IV Q12H [facility] Rx#:[id number] Piperacillin Sodium/ 200 Tazobact 4.5 gm In Sodium Chloride 0.9% 100 ml @ 100 mls/hr IV Q8HR [facility] Rx #:[id number] Other: Stool Characteristics Soft Soft Weight Source Estimated Bedscale Active Medications: Current Medications Acetaminophen (Tylenol 650mg/20.3ml Suspension) 650 mg GT Q6HR PRN PRN Reason: Pain or Fever >101 Stop: 04/02/18 15:34 Benztropine Mesylate (Cogentin) 1 mg GT BID [facility] Stop: 04/02/18 16:59 Last Admin: 02/02/18 09:46 Dose: 1 mg Chlorhexidine Gluconate (Peridex) 15 ml MM HS [facility] Stop: 04/02/18 20:59 Last Admin: 02/01/18 21:08 Dose: Not Given Escitalopram Oxalate (Lexapro) 20 mg GT DAILY [facility]; Protocol Stop: 04/03/18 08:59 Finasteride (Proscar) 5 mg GT DAILY [facility]; Protocol Stop: 04/03/18 08:59 Last Admin: 02/02/18 09:46 Dose: 5 mg Fluticasone Propionate (Flonase) 2 spr NS DAILY [facility] Stop: 04/03/18 08:59 Last Admin: 02/02/18 09:44 Dose: 2 spr Dextrose/Sodium Chloride (D5-0.9%Ns) 1,000 mls @ 80 mls/hr IV .[id number] [facility] Stop: 02/02/18 15:59 Last Admin: 02/02/18 04:53 Dose: 80 mls/hr Dextrose (Dextrose 10%) 1,000 mls @ 50 mls/hr IV .Q20H [facility] Stop: 02/02/18 15:59 Last Admin: 02/02/18 13:01 Dose: 50 mls/hr Levetiracetam 1,000 mg/ Sodium (Chloride) 110 mls @ 400 mls/hr IV Q12H [facility] Stop: 04/02/18 15:29 Last Admin: 02/02/18 03:30 Dose: 400 mls/hr Piperacillin Sod/Tazobactam (Sod 4.5 gm/ Sodium Chloride) 100 mls @ 100 mls/hr IV Q8HR [facility] Stop: 04/02/18 20:59 Last Admin: 02/02/18 13:03 Dose: 100 mls/hr Multivitamins/Minerals 10 ml/Dextrose/ Amino Acids/Electrolytes/ Fat Emulsion Intravenous 1,200 mls @ 50 mls/hr IV .Q24H [facility] Stop: 03/03/18 15:59 Dextrose/Sodium Chloride (D5-0.9%Ns) 1,000 mls @ 30 mls/hr IV .Q24H [facility] Stop: 04/03/18 15:59 Ibuprofen (Motrin) 600 mg GT Q6H PRN PRN Reason: BACK PAIN Stop: 04/02/18 15:20 Ipratropium [place] (Atrovent Neb 0.5mg/2.5ml) 0.5 mg HHN BIDRT [facility] Stop: 04/02/18 18:59 Last Admin: 02/02/18 06:57 Dose: 0.5 mg Lamotrigine (Lamictal) 200 mg GT DAILY [facility] Stop: 04/03/18 08:59 Last Admin: 02/02/18 09:46 Dose: 200 mg Lamotrigine (Lamictal) 350 mg GT HS [facility] Stop: 04/02/18 20:59 Last Admin: 02/01/18 21:00 Dose: 350 mg Latanoprost (Xalatan 0.005% Oph Soln) 1 drop EACH EYE HS [facility] Stop: 04/03/18 20:59 Levothyroxine Sodium (Synthroid) 0.125 mg GT QDAC [facility] Stop: 04/03/18 09:59 Last Admin: 02/02/18 12:15 Dose: 0.125 mg Lorazepam (Ativan) 1 mg GT BID PRN; Protocol PRN Reason: Agitation Stop: 04/02/18 15:20 Last Admin: 02/02/18 13:03 Dose: 1 mg Methotrexate (Methotrexate) mg PO QWEEK 0730 [facility]; Protocol Stop: 04/02/18 15:29 Miscellaneous (Tpn Per Pharmacy) 1 ea MC PRN PRN PRN Reason: PROTOCOL Stop: 04/02/18 14:33 Miscellaneous (Brinzolamide/Brimonidine Tart [Simbrinza 1%-0.2% Eye Drops]) 1 drop EACH EYE BID [facility] Stop: 04/02/18 16:59 Miscellaneous (Clonazepam [Clonazepam*]) 1 mg GT BID [facility] Stop: 04/02/18 16:59 Miscellaneous (Levalbuterol Hcl [Levalbuterol Concentrate]) 1 unit HHN Q4H PRN PRN Reason: Respiratory Distress Miscellaneous (Tolnaftate [Tinactin]) 150 gm TP DAILY [facility] Stop: 04/03/18 08:59 Multivitamins/Minerals (Theragran M) 15 ml GT DAILY [facility] Stop: 04/03/18 08:59 Last Admin: 02/02/18 10:41 Dose: 15 ml Onfi (Clobazam 20mg (Tablet)) 1 GT BID [facility] Stop: 04/02/18 16:59 Last Admin: 02/02/18 12:15 Dose: 1 Aptiom ( Eslicarbazepine 600mg Tablet) 1 GT 1600 [facility] Stop: 04/02/18 15:59 Last Admin: 02/01/18 16:18 Dose: Not Given Petrolatum (Vaseline Oint) 1 appl TP BID [facility] Stop: 04/02/18 16:59 Last Admin: 02/02/18 09:45 Dose: 1 appl Petrolatum (Zinc Oxide) 1 appl TP QSHIFT [facility] Stop: 04/02/18 19:59 Last Admin: 02/02/18 09:30 Dose: 1 appl Quetiapine Fumarate (Seroquel) mg GT BID [facility]; Protocol Stop: 04/02/18 16:59 Rifaximin (Xifaxan) 600 mg GT BID [facility] Stop: 04/02/18 16:59 Last Admin: 02/02/18 09:45 Dose: 600 mg Sodium Chloride ([place] Nasal [place]) 1 spr NS QID [facility] Stop: 04/02/18 16:59 Last Admin: 02/02/18 13:30 Dose: 1 spr Tamsulosin HCl (Flomax) 0.4 mg GT HS [facility] Stop: 04/02/18 20:59 Last Admin: 02/01/18 21:10 Dose: 0.4 mg - Procedures Procedures: Procedures Procedure Code Date BYPASS ILEUM TO CUTANEOUS, OPEN APPROACH [id number] 09/23/17 CHANGE FEEDING DEVICE IN UP INTEST TRACT, JUNIOR ACCOUNTANT APPROACH [id number] 11/24/17 CHANGE GASTROSTOMY TUBE 15033 11/01/17 DRAINAGE OF SMALL INTESTINE, OPEN APPROACH [id number] 11/01/17 EXPLORATION OF ABDOMEN 75398 11/01/17 FREEING OF BOWEL ADHESION 35063 11/01/17 ILEOSTOMY/JEJUNOSTOMY 05279 09/23/17 INSERTION OF ENDOTRACHEAL AIRWAY INTO TRACHEA, VIA OPENING [id number] 09/23/17 INSERTION OF FEEDING DEVICE INTO STOMACH, OPEN APPROACH [id number] 09/23/17 INTRODUCTION OF NUTRITIONAL INTO CENTRAL VEIN, PERC APPROACH [id number] 09/23/17 PARTIAL REMOVAL OF COLON 43805 09/23/17 PLACE GASTROSTOMY TUBE 05706 09/23/17 RELEASE PERITONEUM, OPEN APPROACH [id number] 09/23/17 RELEASE SMALL INTESTINE, OPEN APPROACH [id number] 11/01/17 REPAIR SMALL INTESTINE, OPEN APPROACH [id number] 11/01/17 RESECTION OF LARGE INTESTINE, OPEN APPROACH [id number] 09/23/17 RESPIRATORY VENTILATION, LESS THAN 24 CONSECUTIVE HOURS [id number] 09/23/17 SUTURE SMALL INTESTINE 15151 11/01/17
[2018-02-02] MEDS ORDERED: TPN 8.5%-70% CUSTOM IV SCH (16:00)
[2018-02-02] MEDS ORDERED: D5-0.9%NS 1,000 ML IV SCH (16:00)
--- NOTE | 2018-02-02 16:25 | History & Physical ---
ADMIT DATE: 02/02/2018 CHIEF COMPLAINT: Ileostomy infection. HISTORY OF PRESENT ILLNESS: This is a 63-year-old male who [facility] secondary to abdominal pain. The patient's ileostomy is noted with some infection and some redness. The patient was recently admitted to this hospital on 11/24/2017 for G-tube replacement and 11/01/2017 due to sepsis and intractable vomiting. The patient did not have any fevers at the penitentiary. For further management, the patient is now admitted here. PAST MEDICAL HISTORY: Hypothyroid, seizure, ileostomy for megacolon, G-tube, MR, cerebral palsy, seizure, recent colectomy with ileostomy, generalized contractures. ALLERGIES: DEPAKOTE, FLUOXETINE, MAGNESIUM HYDROXIDE, REGLAN, ZOFRAN. MEDICATIONS: Fosamax, calcium, chlorhexidine, loratadine, lorazepam, Tylenol, Cogentin, clonazepam, finasteride, Flonase, folic acid, ibuprofen, [place], lactulose, Lamictal, albuterol, Synthroid, methotrexate, multivitamin, or rifaximin. FAMILY HISTORY: Noncontributory. SOCIAL HISTORY: The patient is a penitentiary resident. REVIEW OF SYSTEMS: Unable to obtain due to patient's mental status. PHYSICAL EXAMINATION: GENERAL: The patient is well developed, well nourished, in no apparent distress. VITAL SIGNS: Temperature 97.0, heart rate 66, blood pressure 101/51, respiration 18, O2 99%. HEENT: Head; normocephalic, atraumatic. NECK: Supple. No mass. LUNGS: Clear bilaterally. HEART: Regular rhythm. ABDOMEN: Mildly distended. SKIN: The patient is noted with redness from the ileostomy site. LABORATORY DATA: WBC 11.7, H and H 12.5/36.2, platelet of 338. Sodium 135, potassium 4.0, chloride 102, BUN 38, creatinine 0.9, magnesium 1.7. DIAGNOSTICS: The patient had a urinalysis done, positive for UTI. DIAGNOSTICS: The patient had a chest x-ray done, impression is no acute abnormalities. ASSESSMENT: Sepsis, abdominal cellulitis, acute urinary tract infection, hypomagnesemia, MR, cerebral palsy, seizures, generalized contractures. PLAN: We will get surgical consultation and we will get wound care on the case. Keep the patient n.p.o. for now, IV fluids for hydration. Keep the patient on IV antibiotics of Zosyn. TPN for now. We will continue to follow this patient. [facility]# [id number]
[2018-02-02] MEDS: APTIOM GT SCH ×2 (18:28→18:54)
[2018-02-02] MEDS: Chlorhexidine Gluconate 0.12% 480mL Bottle MM SCH (21:00)
[2018-02-03 05:51] LABS: % BASOPHILS 0.8 % (0.0-2.0); % LYMPHOCYTES 17.2 % (20.0-50.0); % MONOCYTES 12.8 % (2.0-10.0); % NEUTROPHILS 62.2 % (40.0-80.0); BASOPHILE ABSOLUTE 0.1 Th/cumm (0-0.2); EOSINOPHILE ABSOLUTE 0.6 Th/cmm (0.1-0.4); HEMATOCRIT 30.2 % (41.0-60); HEMOGLOBIN 10.6 gm/dL (12-16); LYMPHOCYTE ABSOLUTE 1.6 Th/cmm (1.5-3.0); MEAN CORPUSCULAR HEMOGLOBIN 32.9 pg (26.0-30.0); MEAN PLATELET VOLUME 7.3 fl; MONOCYTE ABSOLUTE 1.2 Th/cmm (0.3-1.0); NEUTROPHILE ABSOLUTE 5.6 Th/cmm (1.8-8.0); PLATELET COUNT 276 Th/cmm (150-400); RED BLOOD COUNT 3.22 Mil/cmm (4.30-5.70); RED CELL DISTRIBUTION WIDTH 15.3 % (11.5-20.0); WHITE BLOOD COUNT 9.1 Th/cmm (4.8-10.8)
[2018-02-03 06:05] LABS: ALB/GLOB RATIO 1.1 (1.0-1.8); ALBUMIN 2.9 gm/dL (4.2-5.5); ALKALINE PHOSPHATASE 126 U/L (34-104); ANION GAP 10.4 (7.0-16.0); BILIRUBIN,TOTAL 0.5 mg/dL (0.3-1.0); BUN - UREA NITROGEN 20 mg/dL (7-25); CALCIUM SERUM 8.9 mg/dL (8.6-10.3); CARBON DIOXIDE 24.4 mEq/L (21.0-31.0); CHLORIDE 106 mEq/L (98-107); CREATININE - SERUM 0.7 mg/dL (0.7-1.3); GFR AFRICAN-AMERICAN > 60.0 ml/min (>90); GFR NON AFRICAN-AMERICAN > 60.0 ml/min; GLUCOSE 101 mg/dL (70-105); MAGNESIUM 1.6 mg/dL (1.9-2.7); PHOSPHOROUS 3.1 mg/dL (2.5-5.0); POTASSIUM SERUM 3.8 mEq/L (3.5-5.1); SGOT 24 U/L (13-39); SGPT/ALT 25 U/L (7-52); SODIUM SERUM 137 mEq/L (136-145); TOTAL PROTEIN,SERUM 5.5 gm/dL (6.0-8.3)
[2018-02-03] MEDS: Ipratropium Neb 0.5 mg/2.5 mL UD HHN SCH ×2 (07:34→19:02)
[2018-02-03] MEDS: Saline 0.65% Nasal Spray NS SCH ×4 (09:00→21:42)
[2018-02-03] MEDS ORDERED: Mag Sulfate 2gm/50mL Premix 2 GM/50 ML BAG IV ONE (09:00)
[2018-02-03] MEDS: Fluticasone Propionate Nasal 1 SPR SPR NS SCH (09:00)
[2018-02-03] MEDS: Benztropine 1 MG TAB GT SCH ×2 (09:00→18:53)
[2018-02-03] MEDS: Zinc Oxide Ointment 60 gm TP SCH ×2 (10:18→21:41)
[2018-02-03] MEDS: Petrolatum (White) Oint 0.6 Oz Tube TP SCH ×2 (10:18→18:53)
[2018-02-03] MEDS: Levothyroxine 0.125 Mg Tab GT SCH (10:22)
[2018-02-03] MEDS: ONFI GT SCH ×2 (10:55→17:44)
--- NOTE | 2018-02-03 13:14 | Internal Medicine Prog Note ---
Internal Medicine Subjective - Subjective Service Date: 02/03/18 Patient seen and examined:: with staff Patient is:: awake Per staff patient has:: tolerating meds Internal Medicine Objective - Results Result Diagrams: 02/03/18 05:35 02/03/18 05:35 Recent Labs: Laboratory Last Values WBC 9.1 Th/cmm (4.8-10.8) 02/03/18 05:35 RBC 3.22 Mil/cmm (4.30-5.70) L 02/03/18 05:35 Hgb 10.6 gm/dL (12-16) L 02/03/18 05:35 Hct 30.2 % (41.0-60) L 02/03/18 05:35 MCV 94.0 fl (80-99) 02/03/18 05:35 MCH 32.9 pg (26.0-30.0) H 02/03/18 05:35 MCHC Differential 35.0 pg (28.0-36.0) 02/03/18 05:35 RDW 15.3 % (11.5-20.0) 02/03/18 05:35 Plt Count 276 Th/cmm (150-400) 02/03/18 05:35 MPV 7.3 fl 02/03/18 05:35 Neutrophils % 62.2 % (40.0-80.0) 02/03/18 05:35 Lymphocytes % 17.2 % (20.0-50.0) L 02/03/18 05:35 Monocytes % 12.8 % (2.0-10.0) H 02/03/18 05:35 Eosinophils % 7.0 % (0.0-5.0) H 02/03/18 05:35 Basophils % 0.8 % (0.0-2.0) 02/03/18 05:35 Sodium 137 mEq/L (136-145) 02/03/18 05:35 Potassium 3.8 mEq/L (3.5-5.1) 02/03/18 05:35 Chloride 106 mEq/L (98-107) 02/03/18 05:35 Carbon Dioxide 24.4 mEq/L (21.0-31.0) 02/03/18 05:35 Anion Gap 10.4 (7.0-16.0) 02/03/18 05:35 BUN 20 mg/dL (7-25) 02/03/18 05:35 Creatinine 0.7 mg/dL (0.7-1.3) 02/03/18 05:35 Est GFR ( Amer) > 60.0 ml/min (>90) 02/03/18 05:35 Est GFR (Non-Af Amer) > 60.0 ml/min 02/03/18 05:35 BUN/Creatinine Ratio 28.6 02/03/18 05:35 Glucose 101 mg/dL (70-105) 02/03/18 05:35 Whole Bld Lactic Acid 0.80 mmol/L (0.60-1.99) 02/01/18 13:39 Calcium 8.9 mg/dL (8.6-10.3) 02/03/18 05:35 Phosphorus 3.1 mg/dL (2.5-5.0) 02/03/18 05:35 Magnesium 1.6 mg/dL (1.9-2.7) L 02/03/18 05:35 Total Bilirubin 0.5 mg/dL (0.3-1.0) 02/03/18 05:35 AST 24 U/L (13-39) 02/03/18 05:35 ALT 25 U/L (7-52) 02/03/18 05:35 Alkaline Phosphatase 126 U/L (34-104) H 02/03/18 05:35 Total Protein 5.5 gm/dL (6.0-8.3) L 02/03/18 05:35 Albumin 2.9 gm/dL (4.2-5.5) L 02/03/18 05:35 Globulin 2.6 gm/dL 02/03/18 05:35 Albumin/Globulin Ratio 1.1 (1.0-1.8) 02/03/18 05:35 Prealbumin 38 mg/dL (10-36) H 02/02/18 05:05 Triglycerides 178 mg/dL (<150) H 02/02/18 05:05 Cholesterol 125 mg/dL (<200) 02/02/18 05:05 TSH 0.27 uIU/ml (0.34-5.60) L 02/01/18 13:39 Urine Source CATH 02/01/18 14:14 Urine Color YELLOW 02/01/18 14:14 Urine Clarity HAZY (CLEAR) 02/01/18 14:14 Urine pH 6.0 (4.6 - 8.0) 02/01/18 14:14 Ur Specific [place] 1.020 (1.005-1.030) 02/01/18 14:14 Urine Protein TRACE mg/dL (NEGATIVE) 02/01/18 14:14 Urine Glucose (UA) NEGATIVE mg/dL (NEGATIVE) 02/01/18 14:14 Urine Ketones NEGATIVE mg/dL (NEGATIVE) 02/01/18 14:14 Urine Blood LARGE (NEGATIVE) H 02/01/18 14:14 Urine Nitrate POSITIVE (NEGATIVE) H 02/01/18 14:14 Urine Bilirubin NEGATIVE (NEGATIVE) 02/01/18 14:14 Urine Urobilinogen 0.2 E.U./dL (0.2 - 1.0) 02/01/18 14:14 Ur Leukocyte Esterase MODERATE (NEGATIVE) H 02/01/18 14:14 Urine RBC 10-25 /hpf (0-5) H 02/01/18 14:14 Urine WBC 6-10 /hpf (0-5) 02/01/18 14:14 Ur Epithelial Cells FEW /lpf (FEW) 02/01/18 14:14 Urine Bacteria MANY /hpf (NONE SEEN) H 02/01/18 14:14 Urine Mucus FEW /lpf (FEW) 02/01/18 14:14 - Physical Exam Vitals and I&O: Vital Signs Temp 97.2 F 02/03/18 12:23 Pulse 69 02/03/18 12:23 Resp 17 02/03/18 12:23 BP 124/49 02/03/18 12:23 Pulse Ox 98 02/03/18 12:23 Intake & Output 02/02/18 02/03/18 02/03/18 18:59 06:59 18:59 Intake Total 1210 100 Balance 1210 100 Weight (lbs) 157 lb Intake: Intake, IV Amount 1210 100 Dextrose 10% 1,000 ml @ 1000 50 mls/hr IV .Q20H [facility] Rx #:[id number] Levetiracetam 1,000 mg In 110 Sodium Chloride 0.9% 100 ml @ 400 mls/hr IV Q12H [facility] Rx#:[id number] Piperacillin Sodium/ 100 100 Tazobact 4.5 gm In Sodium Chloride 0.9% 100 ml @ 100 mls/hr IV Q8HR [facility] Rx #:[id number] Oral 0 Other: Stool Characteristics Soft Soft Soft Weight Source Bedscale Active Medications: Current Medications Acetaminophen (Tylenol 650mg/20.3ml Suspension) 650 mg GT Q6HR PRN PRN Reason: Pain or Fever >101 Stop: 04/02/18 15:34 Albuterol Sulfate (Albuterol 2.5mg/3ml Neb Ud) 2.5 mg HHN Q4HRT PRN PRN Reason: Respiratory Distress Stop: 04/02/18 15:20 Benztropine Mesylate (Cogentin) 1 mg GT BID [facility] Stop: 04/02/18 16:59 Last Admin: 02/02/18 18:49 Dose: 1 mg Chlorhexidine Gluconate (Peridex) 15 ml MM HS [facility] Stop: 04/02/18 20:59 Last Admin: 02/02/18 21:00 Dose: 15 ml Escitalopram Oxalate (Lexapro) 20 mg GT DAILY [facility]; Protocol Stop: 04/03/18 08:59 Last Admin: 02/03/18 10:16 Dose: 20 mg Finasteride (Proscar) 5 mg GT DAILY [facility]; Protocol Stop: 04/03/18 08:59 Last Admin: 02/03/18 10:17 Dose: 5 mg Fluticasone Propionate (Flonase) 2 spr NS DAILY [facility] Stop: 04/03/18 08:59 Last Admin: 02/02/18 09:44 Dose: 2 spr Levetiracetam 1,000 mg/ Sodium (Chloride) 110 mls @ 400 mls/hr IV Q12H [facility] Stop: 04/02/18 15:29 Last Admin: 02/03/18 03:50 Dose: 400 mls/hr Piperacillin Sod/Tazobactam (Sod 4.5 gm/ Sodium Chloride) 100 mls @ 100 mls/hr IV Q8HR [facility] Stop: 04/02/18 20:59 Last Admin: 02/03/18 05:00 Dose: 100 mls/hr Multivitamins/Minerals 10 ml/Dextrose/ Amino Acids/Electrolytes/ Fat Emulsion Intravenous 1,200 mls @ 50 mls/hr IV .Q24H [facility] Stop: 03/03/18 15:59 Last Admin: 02/02/18 18:16 Dose: 50 mls/hr Dextrose/Sodium Chloride (D5-0.9%Ns) 1,000 mls @ 30 mls/hr IV .Q24H [facility] Stop: 02/03/18 15:59 Last Admin: 02/02/18 18:16 Dose: 30 mls/hr Multivitamins/Minerals 10 ml/Dextrose/ Amino Acids/Electrolytes/ Fat Emulsion Intravenous 1,440 mls @ 60 mls/hr IV .Q24H [facility] Stop: 03/04/18 15:59 Dextrose/Sodium Chloride (D5-0.9ns) 500 mls @ 20 mls/hr IV .Q24H [facility] Stop: 04/04/18 15:59 Ibuprofen (Motrin) 600 mg GT Q6H PRN PRN Reason: BACK PAIN Stop: 04/02/18 15:20 Ipratropium [place] (Atrovent Neb 0.5mg/2.5ml) 0.5 mg HHN BIDRT [facility] Stop: 04/02/18 18:59 Last Admin: 02/03/18 07:34 Dose: 0.5 mg Lamotrigine (Lamictal) 200 mg GT DAILY [facility] Stop: 04/03/18 08:59 Last Admin: 02/03/18 10:17 Dose: 200 mg Lamotrigine (Lamictal) 350 mg GT HS [facility] Stop: 04/02/18 20:59 Last Admin: 02/02/18 21:29 Dose: 350 mg Latanoprost (Xalatan 0.005% Ophth Soln) 1 drop EACH EYE HS [facility] Stop: 04/03/18 20:59 Last Admin: 02/02/18 21:10 Dose: 1 drop Levothyroxine Sodium (Synthroid) 0.125 mg GT QDAC [facility] Stop: 04/03/18 09:59 Last Admin: 02/03/18 10:22 Dose: 0.125 mg Lorazepam (Ativan) 1 mg GT BID PRN; Protocol PRN Reason: Agitation Stop: 04/02/18 15:20 Last Admin: 02/02/18 13:03 Dose: 1 mg Methotrexate (Methotrexate) 10 mg PO QWEEK 0730 [facility]; Protocol Stop: 04/04/18 07:29 Last Admin: 02/03/18 06:43 Dose: 10 mg Miscellaneous (Tpn Per Pharmacy) 1 ea MC PRN PRN PRN Reason: PROTOCOL Stop: 04/02/18 14:33 Miscellaneous (Brinzolamide/Brimonidine Tart [Simbrinza 1%-0.2% Eye Drops]) 1 drop EACH EYE BID [facility] Stop: 04/02/18 16:59 Miscellaneous (Clonazepam [Clonazepam*]) 1 mg GT BID [facility] Stop: 04/02/18 16:59 Miscellaneous (Tolnaftate [Tinactin]) 150 gm TP DAILY [facility] Stop: 04/03/18 08:59 Onfi (Clobazam 20mg (Tablet)) 1 GT BID [facility] Stop: 04/02/18 16:59 Last Admin: 02/02/18 16:38 Dose: 1 Patient Own Med- Aptiom ( Eslicarbazepine 600mg Tablet) 1 GT 1600 [facility] Stop: 04/02/18 15:59 Last Admin: 02/02/18 18:54 Dose: 1 Petrolatum (Vaseline Oint) 1 appl TP BID [facility] Stop: 04/02/18 16:59 Last Admin: 02/03/18 10:18 Dose: 1 appl Petrolatum (Zinc Oxide) 1 appl TP QSHIFT [facility] Stop: 04/02/18 19:59 Last Admin: 02/03/18 10:18 Dose: 1 appl Quetiapine Fumarate (Seroquel) mg GT BID [facility]; Protocol Stop: 04/02/18 16:59 Rifaximin (Xifaxan) 600 mg GT BID [facility] Stop: 04/02/18 16:59 Last Admin: 02/03/18 10:17 Dose: 600 mg Sodium Chloride ([place] Nasal [place]) 1 spr NS QID [facility] Stop: 04/02/18 16:59 Last Admin: 02/02/18 21:00 Dose: 1 spr Tamsulosin HCl (Flomax) 0.4 mg GT HS [facility] Stop: 04/02/18 20:59 Last Admin: 02/02/18 21:28 Dose: 0.4 mg General: weak, alert HEENT: NC/AT, PERRLA Neck: Supple Lungs: CTAB Cardiovascular: RRR, Normal S1, Normal S2, without murmur Abdomen: soft, non-tender, non-distended, positive bowel sound Extremities: excoriation, other (ileostomy site redness) - Procedures Procedures: Procedures Procedure Code Date BYPASS ILEUM TO CUTANEOUS, OPEN APPROACH [id number] 09/23/17 CHANGE FEEDING DEVICE IN UP INTEST TRACT, STEAM POWER PLANT OPERATOR APPROACH [id number] 11/24/17 CHANGE GASTROSTOMY TUBE 15838 11/01/17 DRAINAGE OF SMALL INTESTINE, OPEN APPROACH [id number] 11/01/17 EXPLORATION OF ABDOMEN 65792 11/01/17 FREEING OF BOWEL ADHESION 72207 11/01/17 ILEOSTOMY/JEJUNOSTOMY 57826 09/23/17 INSERTION OF ENDOTRACHEAL AIRWAY INTO TRACHEA, VIA OPENING [id number] 09/23/17 INSERTION OF FEEDING DEVICE INTO STOMACH, OPEN APPROACH [id number] 09/23/17 INTRODUCTION OF NUTRITIONAL INTO CENTRAL VEIN, PERC APPROACH [id number] 09/23/17 PARTIAL REMOVAL OF COLON 31233 09/23/[address] PL[address] GASTROSTOMY TUBE 14582 09/23/17 RELEASE PERITONEUM, OPEN APPROACH [id number] 09/23/17 RELEASE SMALL INTESTINE, OPEN APPROACH [id number] 11/01/17 REPAIR SMALL INTESTINE, OPEN APPROACH [id number] 11/01/17 RESECTION OF LARGE INTESTINE, OPEN APPROACH [id number] 09/23/17 RESPIRATORY VENTILATION, LESS THAN 24 CONSECUTIVE HOURS [id number] 09/23/17 SUTURE SMALL INTESTINE 94817 11/01/17 Internal Medicine Assmt/Plan - Assessment Assessment: sepsis abdominal cellulitis acute uti hypomagnesemia mr cerebral palsy seizures generalized contractures - Plan Plan: continue ivabx ppn follow up labs in am continue current plan of care Nutritional Asmnt/Malnutr-PDOC - Dietary Evaluation Malnutrition Findings (Please click <Entered> for more info): Nutritional Asmnt/Malnutrition Start: 02/02/18 17: 36 Text: Status: Complete Freq: Protocol: Document 02/02/18 17:36 LCHENG (Rec: 02/02/18 17:54 LCHENG [email or web address]) Nutritional Asmnt/Malnutrition Patient General Information Nutritional Screening High Risk Consult Diagnosis sepsis, abd cellulitis Pertinent Medical Hx/Surgical Hx hypothyroid, seizure, ileostomy for megacolon, Gtube , MR, CP, colectomy with ileostomy, generalized contractures Subjective Information Consult received for moisture associated wound at ileostomy site. Pt seen sleeping in bed at time of visit. TPN ordered per EMR. Waiting for PICC line consent. Current Diet Order/ Nutrition Support NPO Pertinent Medications D5-0.9%ns, synthroid, theragran, zinc, piperacillin, seroquel Pertinent Labs 02/02 Na 135, BUN 38, glucose 89, Mg 1.7, alb 3.2 Nutritional Hx/Data Height 5 ft 10 in Height (Calculated Centimeters) 177.8 Current Weight (lbs) 157 lb Weight (Calculated Kilograms) 71.2 Weight (Calculated Grams) 11985.0 [place] Body Weight 166 Body Mass Index (BMI) 22.5 Weight Status Approriate GI Symptoms GI Symptoms None Last BM pt has ileostomy Difficult in: None Usual diet at home fibersource HN 1.2 80ml/hr x 21hr at care facility per chart, providing 2016kcal and 93g protein. Skin Integrity/Comment: ileostomy site red Estimated Nutritional Goals BEE in Kcals: Using Current wt Calories/Kcals/Kg 25-30 Kcals Calculated 8846-8337 Protein: Using Current wt Protein g/k-1.2 Protein Calculated 71-85 Fluid: ml 1775-2130ml (1ml/kcal) Nutritional Problem 2. Problem Problem increased nutrition needs Etiology increased metabolic demand Signs/Symptoms: dx of sepsis 1. Problem Problem altered nutrition related labs Etiology electrolytes/fluid imbalance Signs/Symptoms: Na 135, BUN 38 Malnutrition Alert Is there a minimum of two criteria No selected? Query Text:Check all the applicable criteria. A minimum of two criteria are recommended for diagnosis of either severe or non-severe malnutrition. Malnutrition Related to Morbid Obesity Malnutrition related to morbid obesity No Intervention/Recommendation Comments 1. Monitor NPO status. Will evaluate nutrition intake once nutrition support initiated. 2. Monitor wt, labs and skin integrity 3. F/U as high risk in 2-3 days, 02/04-02/05 Expected Outcomes/Goals Expected Outcomes/Goals 1. Pt to meet at least 75% of nutritional needs via nutrition support with tolerance 2. Wt stability, skin to remain intact, labs to approach WNL.
[2018-02-03] MEDS ORDERED: [UNRECOGNIZED DRUG - OTHER] IV SCH (16:00)
[2018-02-03] MEDS ORDERED: D5 IV SCH (16:00)
[2018-02-03] MEDS: APTIOM GT SCH (17:44)
[2018-02-03] MEDS: TPN 8.5%-70% CUSTOM IV SCH (17:45)
--- NOTE | 2018-02-03 20:08 | General Progress Note ---
Subjective - Review of Systems Service Date: 02/03/18 Events since last encounter: chart reviewed has erosion and leak at ilostomy stoma Plan: revision of ileostomy Objective - Results Result Diagrams: 02/03/18 05:35 02/03/18 05:35 Recent Labs: Laboratory Last Values WBC 9.1 Th/cmm (4.8-10.8) 02/03/18 05:35 RBC 3.22 Mil/cmm (4.30-5.70) L 02/03/18 05:35 Hgb 10.6 gm/dL (12-16) L 02/03/18 05:35 Hct 30.2 % (41.0-60) L 02/03/18 05:35 MCV 94.0 fl (80-99) 02/03/18 05:35 MCH 32.9 pg (26.0-30.0) H 02/03/18 05:35 MCHC Differential 35.0 pg (28.0-36.0) 02/03/18 05:35 RDW 15.3 % (11.5-20.0) 02/03/18 05:35 Plt Count 276 Th/cmm (150-400) 02/03/18 05:35 MPV 7.3 fl 02/03/18 05:35 Neutrophils % 62.2 % (40.0-80.0) 02/03/18 05:35 Lymphocytes % 17.2 % (20.0-50.0) L 02/03/18 05:35 Monocytes % 12.8 % (2.0-10.0) H 02/03/18 05:35 Eosinophils % 7.0 % (0.0-5.0) H 02/03/18 05:35 Basophils % 0.8 % (0.0-2.0) 02/03/18 05:35 Sodium 137 mEq/L (136-145) 02/03/18 05:35 Potassium 3.8 mEq/L (3.5-5.1) 02/03/18 05:35 Chloride 106 mEq/L (98-107) 02/03/18 05:35 Carbon Dioxide 24.4 mEq/L (21.0-31.0) 02/03/18 05:35 Anion Gap 10.4 (7.0-16.0) 02/03/18 05:35 BUN 20 mg/dL (7-25) 02/03/18 05:35 Creatinine 0.7 mg/dL (0.7-1.3) 02/03/18 05:35 Est GFR ( Amer) > 60.0 ml/min (>90) 02/03/18 05:35 Est GFR (Non-Af Amer) > 60.0 ml/min 02/03/18 05:35 BUN/Creatinine Ratio 28.6 02/03/18 05:35 Glucose 101 mg/dL (70-105) 02/03/18 05:35 Whole Bld Lactic Acid 0.80 mmol/L (0.60-1.99) 02/01/18 13:39 Calcium 8.9 mg/dL (8.6-10.3) 02/03/18 05:35 Phosphorus 3.1 mg/dL (2.5-5.0) 02/03/18 05:35 Magnesium 1.6 mg/dL (1.9-2.7) L 02/03/18 05:35 Total Bilirubin 0.5 mg/dL (0.3-1.0) 02/03/18 05:35 AST 24 U/L (13-39) 02/03/18 05:35 ALT 25 U/L (7-52) 02/03/18 05:35 Alkaline Phosphatase 126 U/L (34-104) H 02/03/18 05:35 Total Protein 5.5 gm/dL (6.0-8.3) L 02/03/18 05:35 Albumin 2.9 gm/dL (4.2-5.5) L 02/03/18 05:35 Globulin 2.6 gm/dL 02/03/18 05:35 Albumin/Globulin Ratio 1.1 (1.0-1.8) 02/03/18 05:35 Prealbumin 38 mg/dL (10-36) H 02/02/18 05:05 Triglycerides 178 mg/dL (<150) H 02/02/18 05:05 Cholesterol 125 mg/dL (<200) 02/02/18 05:05 TSH 0.27 uIU/ml (0.34-5.60) L 02/01/18 13:39 Urine Source CATH 02/01/18 14:14 Urine Color YELLOW 02/01/18 14:14 Urine Clarity HAZY (CLEAR) 02/01/18 14:14 Urine pH 6.0 (4.6 - 8.0) 02/01/18 14:14 Ur Specific [place] 1.020 (1.005-1.030) 02/01/18 14:14 Urine Protein TRACE mg/dL (NEGATIVE) 02/01/18 14:14 Urine Glucose (UA) NEGATIVE mg/dL (NEGATIVE) 02/01/18 14:14 Urine Ketones NEGATIVE mg/dL (NEGATIVE) 02/01/18 14:14 Urine Blood LARGE (NEGATIVE) H 02/01/18 14:14 Urine Nitrate POSITIVE (NEGATIVE) H 02/01/18 14:14 Urine Bilirubin NEGATIVE (NEGATIVE) 02/01/18 14:14 Urine Urobilinogen 0.2 E.U./dL (0.2 - 1.0) 02/01/18 14:14 Ur Leukocyte Esterase MODERATE (NEGATIVE) H 02/01/18 14:14 Urine RBC 10-25 /hpf (0-5) H 02/01/18 14:14 Urine WBC 6-10 /hpf (0-5) 02/01/18 14:14 Ur Epithelial Cells FEW /lpf (FEW) 02/01/18 14:14 Urine Bacteria MANY /hpf (NONE SEEN) H 02/01/18 14:14 Urine Mucus FEW /lpf (FEW) 02/01/18 14:14 - Physical Exam Vitals and I&O: Vital Signs Temp 97.3 F 02/03/18 16:00 Pulse 67 02/03/18 19:02 Resp 18 02/03/18 19:02 BP 111/42 02/03/18 16:00 Pulse Ox 97 02/03/18 19:02 Intake & Output 02/03/18 02/03/18 02/04/18 06:59 18:59 06:59 Intake Total 310 Balance 310 Weight (lbs) 71.214 kg Intake: Intake, IV Amount 310 Levetiracetam 1,000 mg In 110 Sodium Chloride 0.9% 100 ml @ 400 mls/hr IV Q12H [facility] Rx#:[id number] Piperacillin Sodium/ 200 Tazobact 4.5 gm In Sodium Chloride 0.9% 100 ml @ 100 mls/hr IV Q8HR [facility] Rx #:[id number] Oral 0 Other: Stool Characteristics Soft Soft Weight Source Bedscale Active Medications: Current Medications Acetaminophen (Tylenol 650mg/20.3ml Suspension) 650 mg GT Q6HR PRN PRN Reason: Pain or Fever >101 Stop: 04/02/18 15:34 Albuterol Sulfate (Albuterol 2.5mg/3ml Neb Ud) 2.5 mg HHN Q4HRT PRN PRN Reason: Respiratory Distress Stop: 04/02/18 15:20 Benztropine Mesylate (Cogentin) 1 mg GT BID [facility] Stop: 04/02/18 16:59 Last Admin: 02/03/18 18:53 Dose: 1 mg Chlorhexidine Gluconate (Peridex) 15 ml MM HS [facility] Stop: 04/02/18 20:59 Last Admin: 02/02/18 21:00 Dose: 15 ml Escitalopram Oxalate (Lexapro) 20 mg GT DAILY [facility]; Protocol Stop: 04/03/18 08:59 Last Admin: 02/03/18 14:56 Dose: 20 mg Finasteride (Proscar) 5 mg GT DAILY [facility]; Protocol Stop: 04/03/18 08:59 Last Admin: 02/03/18 10:17 Dose: 5 mg Fluticasone Propionate (Flonase) 2 spr NS DAILY [facility] Stop: 04/03/18 08:59 Last Admin: 02/03/18 09:00 Dose: 2 spr Levetiracetam 1,000 mg/ Sodium (Chloride) 110 mls @ 400 mls/hr IV Q12H [facility] Stop: 04/02/18 15:29 Last Admin: 02/03/18 17:43 Dose: 400 mls/hr Piperacillin Sod/Tazobactam (Sod 4.5 gm/ Sodium Chloride) 100 mls @ 100 mls/hr IV Q8HR [facility] Stop: 04/02/18 20:59 Last Admin: 02/03/18 14:56 Dose: 100 mls/hr Multivitamins/Minerals 10 ml/Dextrose/ Amino Acids/Electrolytes/ Fat Emulsion Intravenous 1,200 mls @ 50 mls/hr IV .Q24H [facility] Stop: 03/03/18 15:59 Last Admin: 02/02/18 18:16 Dose: 50 mls/hr Multivitamins/Minerals 10 ml/Dextrose/ Amino Acids/Electrolytes/ Fat Emulsion Intravenous 1,440 mls @ 60 mls/hr IV .Q24H [facility] Stop: 03/04/18 15:59 Last Admin: 02/03/18 17:45 Dose: 60 mls/hr Dextrose/Sodium Chloride (D5-0.9ns) 500 mls @ 20 mls/hr IV .Q24H [facility] Stop: 04/04/18 15:59 Last Admin: 02/03/18 18:37 Dose: 20 mls/hr Ibuprofen (Motrin) 600 mg GT Q6H PRN PRN Reason: BACK PAIN Stop: 04/02/18 15:20 Ipratropium [place] (Atrovent Neb 0.5mg/2.5ml) 0.5 mg HHN BIDRT [facility] Stop: 04/02/18 18:59 Last Admin: 02/03/18 19:02 Dose: 0.5 mg Lamotrigine (Lamictal) 200 mg GT DAILY [facility] Stop: 04/03/18 08:59 Last Admin: 02/03/18 10:17 Dose: 200 mg Lamotrigine (Lamictal) 350 mg GT HS [facility] Stop: 04/02/18 20:59 Last Admin: 02/02/18 21:29 Dose: 350 mg Latanoprost (Xalatan 0.005% Oph Soln) 1 drop EACH EYE HS [facility] Stop: 04/03/18 20:59 Last Admin: 02/02/18 21:10 Dose: 1 drop Levothyroxine Sodium (Synthroid) 0.125 mg GT QDAC [facility] Stop: 04/03/18 09:59 Last Admin: 02/03/18 10:22 Dose: 0.125 mg Lorazepam (Ativan) 1 mg GT BID PRN; Protocol PRN Reason: Agitation Stop: 04/02/18 15:20 Last Admin: 02/02/18 13:03 Dose: 1 mg Methotrexate (Methotrexate) 10 mg PO QWEEK 0730 [facility]; Protocol Stop: 04/04/18 07:29 Last Admin: 02/03/18 06:43 Dose: 10 mg Miscellaneous (Tpn Per Pharmacy) 1 ea MC PRN PRN PRN Reason: PROTOCOL Stop: 04/02/18 14:33 Miscellaneous (Brinzolamide/Brimonidine Tart [Simbrinza 1%-0.2% Eye Drops]) 1 drop EACH EYE BID [facility] Stop: 04/02/18 16:59 Miscellaneous (Clonazepam [Clonazepam*]) 1 mg GT BID [facility] Stop: 04/02/18 16:59 Miscellaneous (Tolnaftate [Tinactin]) 150 gm TP DAILY [facility] Stop: 04/03/18 08:59 Pt Own Med.- Onfi ( Clobazam 20mg Tablet ) 1 GT BID [facility] Stop: 04/02/18 16:59 Last Admin: 02/03/18 17:44 Dose: 1 Patient Own Med- Aptiom ( Eslicarbazepine 600mg Tablet) 1 GT 1600 [facility] Stop: 04/02/18 15:59 Last Admin: 02/03/18 17:44 Dose: 1 Petrolatum (Vaseline Oint) 1 appl TP BID [facility] Stop: 04/02/18 16:59 Last Admin: 02/03/18 18:53 Dose: 1 appl Petrolatum (Zinc Oxide) 1 appl TP QSHIFT [facility] Stop: 04/02/18 19:59 Last Admin: 02/03/18 10:18 Dose: 1 appl Quetiapine Fumarate (Seroquel) mg GT BID [facility]; Protocol Stop: 04/02/18 16:59 Rifaximin (Xifaxan) 600 mg GT BID [facility] Stop: 04/02/18 16:59 Last Admin: 02/03/18 18:53 Dose: 600 mg Sodium Chloride ([place] Nasal [place]) 1 spr NS QID [facility] Stop: 04/02/18 16:59 Last Admin: 02/03/18 18:53 Dose: 1 spr Tamsulosin HCl (Flomax) 0.4 mg GT HS [facility] Stop: 04/02/18 20:59 Last Admin: 02/02/18 21:28 Dose: 0.4 mg - Procedures Procedures: Procedures Procedure Code Date BYPASS ILEUM TO CUTANEOUS, OPEN APPROACH [id number] 09/23/17 CHANGE FEEDING DEVICE IN UP INTEST TRACT, DATA PROGRAMMER APPROACH [id number] 11/24/17 CHANGE GASTROSTOMY TUBE 88982 11/01/17 DRAINAGE OF SMALL INTESTINE, OPEN APPROACH [id number] 11/01/17 EXPLORATION OF ABDOMEN 70065 11/01/17 FREEING OF BOWEL ADHESION 10692 11/01/17 ILEOSTOMY/JEJUNOSTOMY 28220 09/23/17 INSERTION OF ENDOTRACHEAL AIRWAY INTO TRACHEA, VIA OPENING [id number] 09/23/17 INSERTION OF FEEDING DEVICE INTO STOMACH, OPEN APPROACH [id number] 09/23/17 INTRODUCTION OF NUTRITIONAL INTO CENTRAL VEIN, PERC APPROACH [id number] 09/23/17 PARTIAL REMOVAL OF COLON 52994 09/23/[address] PL[address] GASTROSTOMY TUBE 25241 09/23/17 RELEASE PERITONEUM, OPEN APPROACH [id number] 09/23/17 RELEASE SMALL INTESTINE, OPEN APPROACH [id number] 11/01/17 REPAIR SMALL INTESTINE, OPEN APPROACH [id number] 11/01/17 RESECTION OF LARGE INTESTINE, OPEN APPROACH [id number] 09/23/17 RESPIRATORY VENTILATION, LESS THAN 24 CONSECUTIVE HOURS [id number] 09/23/17 SUTURE SMALL INTESTINE 65385 11/01/17 Assessment/Plan - Problem List Patient Problems: All Active Problems RED SWOLLEN RASH AROUND STOMA SITE (Acute) Nutritional Asmnt/Malnutr-PDOC - Dietary Evaluation Malnutrition Findings (Please click <Entered> for more info): Nutritional Asmnt/Malnutrition Start: 02/02/18 17: 36 Text: Status: Complete Freq: Protocol: Document 02/02/18 17:36 LCHENG (Rec: 02/02/18 17:54 [email or web address] [email or web address]) Nutritional Asmnt/Malnutrition Patient General Information Nutritional Screening High Risk Consult Diagnosis sepsis, abd cellulitis Pertinent Medical Hx/Surgical Hx hypothyroid, seizure, ileostomy for megacolon, Gtube , MR, CP, colectomy with ileostomy, generalized contractures Subjective Information Consult received for moisture associated wound at ileostomy site. Pt seen sleeping in bed at time of visit. TPN ordered per EMR. Waiting for PICC line consent. Current Diet Order/ Nutrition Support NPO Pertinent Medications D5-0.9%ns, synthroid, theragran, zinc, piperacillin, seroquel Pertinent Labs 02/02 Na 135, BUN 38, glucose 89, Mg 1.7, alb 3.2 Nutritional Hx/Data Height 1.78 m Height (Calculated Centimeters) 177.8 Current Weight (lbs) 71.214 kg Weight (Calculated Kilograms) 71.2 Weight (Calculated Grams) 58409.0 Gregory Body Weight 166 Body Mass Index (BMI) 22.5 Weight Status Approriate GI Symptoms GI Symptoms None Last BM pt has ileostomy Difficult in: None Usual diet at home fibersource HN 1.2 80ml/hr x 21hr at care facility per chart, providing 2016kcal and 93g protein. Skin Integrity/Comment: ileostomy site red Estimated Nutritional Goals BEE in Kcals: Using Current wt Calories/Kcals/Kg 25-30 Kcals Calculated 6566-3305 Protein: Using Current wt Protein g/k-1.2 Protein Calculated 71-85 Fluid: ml 1775-2130ml (1ml/kcal) Nutritional Problem 2. Problem Problem increased nutrition needs Etiology increased metabolic demand Signs/Symptoms: dx of sepsis 1. Problem Problem altered nutrition related labs Etiology electrolytes/fluid imbalance Signs/Symptoms: Na 135, BUN 38 Malnutrition Alert Is there a minimum of two criteria No selected? Query Text:Check all the applicable criteria. A minimum of two criteria are recommended for diagnosis of either severe or non-severe malnutrition. Malnutrition Related to Morbid Obesity Malnutrition related to morbid obesity No Intervention/Recommendation Comments 1. Monitor NPO status. Will evaluate nutrition intake once nutrition support initiated. 2. Monitor wt, labs and skin integrity 3. F/U as high risk in 2-3 days, 02/04-02/05 Expected Outcomes/Goals Expected Outcomes/Goals 1. Pt to meet at least 75% of nutritional needs via nutrition support with tolerance 2. Wt stability, skin to remain intact, labs to approach WNL.
[2018-02-03] MEDS: Chlorhexidine Gluconate 0.12% 480mL Bottle MM SCH (21:52)
[2018-02-04] MEDS: Ipratropium Neb 0.5 mg/2.5 mL UD HHN SCH ×2 (06:57→18:53)
[2018-02-04 07:06] LABS: % BASOPHILS 0.1 % (0.0-2.0); % EOSINOPHILS 4.7 % (0.0-5.0); % LYMPHOCYTES 13.8 % (20.0-50.0); % MONOCYTES 8.4 % (2.0-10.0); EOSINOPHILE ABSOLUTE 0.5 Th/cmm (0.1-0.4); HEMATOCRIT 27.9 % (41.0-60); HEMOGLOBIN 10.1 gm/dL (12-16); LYMPHOCYTE ABSOLUTE 1.4 Th/cmm (1.5-3.0); MEAN CELL VOLUME 95.4 fl (80-99); MEAN CORPUSCULAR HEMOGLOBIN 34.6 pg (26.0-30.0); MEAN CORPUSCULAR HGB CONC 36.3 pg (28.0-36.0); MEAN PLATELET VOLUME 7.5 fl; MONOCYTE ABSOLUTE 0.9 Th/cmm (0.3-1.0); NEUTROPHILE ABSOLUTE 7.7 Th/cmm (1.8-8.0); PLATELET COUNT 302 Th/cmm (150-400); RED BLOOD COUNT 2.92 Mil/cmm (4.30-5.70); RED CELL DISTRIBUTION WIDTH 15.4 % (11.5-20.0); WHITE BLOOD COUNT 10.5 Th/cmm (4.8-10.8)
--- NOTE | 2018-02-04 08:44 | Diagnostic Imaging Report ---
CHEST X-RAY: AP view INDICATION: PICC line placement COMPARISON: 02/01/2018 FINDINGS: Right PICC line has been place with tip in the cavoatrial junction. Exam is limited due to body habitus and positioning. There is suboptimal assessment of the left apex. No focal consolidation or effusions. Cardiomegaly is noted. Old right rib fractures are noted. IMPRESSION: Limited exam demonstrating right PICC line with tip in the cavoatrial junction. No focal consolidation identified. Cardiomegaly.
[2018-02-04 08:45] LABS: ALB/GLOB RATIO 0.9 (1.0-1.8); ALBUMIN 2.6 gm/dL (4.2-5.5); ALKALINE PHOSPHATASE 106 U/L (34-104); BILIRUBIN,TOTAL 0.3 mg/dL (0.3-1.0); BUN - UREA NITROGEN 15 mg/dL (7-25); CALCIUM SERUM 7.5 mg/dL (8.6-10.3); CARBON DIOXIDE 23.2 mEq/L (21.0-31.0); CHLORIDE 92 mEq/L (98-107); CREATININE - SERUM 0.7 mg/dL (0.7-1.3); GFR AFRICAN-AMERICAN > 60.0 ml/min (>90); GFR NON AFRICAN-AMERICAN > 60.0 ml/min; GLUCOSE 263 mg/dL (70-105); MAGNESIUM 1.7 mg/dL (1.9-2.7); PHOSPHOROUS 2.5 mg/dL (2.5-5.0); POTASSIUM SERUM 3.2 mEq/L (3.5-5.1); SGOT 34 U/L (13-39); SGPT/ALT 35 U/L (7-52); SODIUM SERUM 134 mEq/L (136-145); TOTAL PROTEIN,SERUM 5.5 gm/dL (6.0-8.3)
[2018-02-04] MEDS: Benztropine 1 MG TAB GT SCH ×2 (08:54→19:43)
[2018-02-04] MEDS: Levothyroxine 0.125 Mg Tab GT SCH (08:54)
[2018-02-04] MEDS: ONFI GT SCH ×2 (08:54→19:43)
[2018-02-04] MEDS: Saline 0.65% Nasal Spray NS SCH ×4 (09:38→23:03)
[2018-02-04] MEDS: Petrolatum (White) Oint 0.6 Oz Tube TP SCH ×2 (09:38→17:00)
[2018-02-04] MEDS: Zinc Oxide Ointment 60 gm TP SCH ×2 (09:39→20:00)
[2018-02-04] MEDS: Fluticasone Propionate Nasal 1 SPR SPR NS SCH (09:39)
[2018-02-04 10:49] LABS: INR 0.99 (0.5-1.4); PROTHROMBIN TIME (TEST) 10.3 SECONDS (9.5-11.5)
[2018-02-04] MEDS ORDERED: INSULIN ASPART SLIDING SCALE 100 UNITS/ML UNIT SUBQ SCH (11:30)
--- NOTE | 2018-02-04 14:57 | Internal Medicine Prog Note ---
Internal Medicine Subjective - Subjective Service Date: 02/04/18 Patient seen and examined:: with staff Patient is:: awake Per staff patient has:: tolerating meds Internal Medicine Objective - Results Result Diagrams: 02/04/18 06:35 02/04/18 08:20 Recent Labs: Laboratory Last Values WBC 10.5 Th/cmm (4.8-10.8) 02/04/18 06:35 RBC 2.92 Mil/cmm (4.30-5.70) L 02/04/18 06:35 Hgb 10.1 gm/dL (12-16) L 02/04/18 06:35 Hct 27.9 % (41.0-60) L 02/04/18 06:35 MCV 95.4 fl (80-99) 02/04/18 06:35 MCH 34.6 pg (26.0-30.0) H 02/04/18 06:35 MCHC Differential 36.3 pg (28.0-36.0) H 02/04/18 06:35 RDW 15.4 % (11.5-20.0) 02/04/18 06:35 Plt Count 302 Th/cmm (150-400) 02/04/18 06:35 MPV 7.5 fl 02/04/18 06:35 Neutrophils % 73.0 % (40.0-80.0) 02/04/18 06:35 Lymphocytes % 13.8 % (20.0-50.0) L 02/04/18 06:35 Monocytes % 8.4 % (2.0-10.0) 02/04/18 06:35 Eosinophils % 4.7 % (0.0-5.0) 02/04/18 06:35 Basophils % 0.1 % (0.0-2.0) 02/04/18 06:35 PT 10.3 SECONDS (9.5-11.5) 02/04/18 08:10 INR 0.99 (0.5-1.4) 02/04/18 08:10 Sodium 134 mEq/L (136-145) L 02/04/18 08:20 Potassium 3.2 mEq/L (3.5-5.1) L 02/04/18 08:20 Chloride 92 mEq/L (98-107) L 02/04/18 08:20 Carbon Dioxide 23.2 mEq/L (21.0-31.0) 02/04/18 08:20 Anion Gap 22.0 (7.0-16.0) H 02/04/18 08:20 BUN 15 mg/dL (7-25) 02/04/18 08:20 Creatinine 0.7 mg/dL (0.7-1.3) 02/04/18 08:20 Est GFR ( Amer) > 60.0 ml/min (>90) 02/04/18 08:20 Est GFR (Non-Af Amer) > 60.0 ml/min 02/04/18 08:20 BUN/Creatinine Ratio 21.4 02/04/18 08:20 Glucose 263 mg/dL (70-105) H 02/04/18 08:20 POC Glucose 98 MG/DL (70 - 105) 02/04/18 12:03 Whole Bld Lactic Acid 0.80 mmol/L (0.60-1.99) 02/01/18 13:39 Calcium 7.5 mg/dL (8.6-10.3) L 02/04/18 08:20 Phosphorus 2.5 mg/dL (2.5-5.0) 02/04/18 08:20 Magnesium 1.7 mg/dL (1.9-2.7) L 02/04/18 08:20 Total Bilirubin 0.3 mg/dL (0.3-1.0) 02/04/18 08:20 AST 34 U/L (13-39) 02/04/18 08:20 ALT 35 U/L (7-52) 02/04/18 08:20 Alkaline Phosphatase 106 U/L (34-104) H 02/04/18 08:20 Total Protein 5.5 gm/dL (6.0-8.3) L 02/04/18 08:20 Albumin 2.6 gm/dL (4.2-5.5) L 02/04/18 08:20 Globulin 2.9 gm/dL 02/04/18 08:20 Albumin/Globulin Ratio 0.9 (1.0-1.8) L 02/04/18 08:20 Prealbumin 38 mg/dL (10-36) H 02/02/18 05:05 Triglycerides 178 mg/dL (<150) H 02/02/18 05:05 Cholesterol 125 mg/dL (<200) 02/02/18 05:05 TSH 0.27 uIU/ml (0.34-5.60) L 02/01/18 13:39 Urine Source CATH 02/01/18 14:14 Urine Color YELLOW 02/01/18 14:14 Urine Clarity HAZY (CLEAR) 02/01/18 14:14 Urine pH 6.0 (4.6 - 8.0) 02/01/18 14:14 Ur Specific [place] 1.020 (1.005-1.030) 02/01/18 14:14 Urine Protein TRACE mg/dL (NEGATIVE) 02/01/18 14:14 Urine Glucose (UA) NEGATIVE mg/dL (NEGATIVE) 02/01/18 14:14 Urine Ketones NEGATIVE mg/dL (NEGATIVE) 02/01/18 14:14 Urine Blood LARGE (NEGATIVE) H 02/01/18 14:14 Urine Nitrate POSITIVE (NEGATIVE) H 02/01/18 14:14 Urine Bilirubin NEGATIVE (NEGATIVE) 02/01/18 14:14 Urine Urobilinogen 0.2 E.U./dL (0.2 - 1.0) 02/01/18 14:14 Ur Leukocyte Esterase MODERATE (NEGATIVE) H 02/01/18 14:14 Urine RBC 10-25 /hpf (0-5) H 02/01/18 14:14 Urine WBC 6-10 /hpf (0-5) 02/01/18 14:14 Ur Epithelial Cells FEW /lpf (FEW) 02/01/18 14:14 Urine Bacteria MANY /hpf (NONE SEEN) H 02/01/18 14:14 Urine Mucus FEW /lpf (FEW) 02/01/18 14:14 - Physical Exam Vitals and I&O: Vital Signs Temp 97.5 F 02/04/18 11:47 Pulse 61 02/04/18 11:47 Resp 18 02/04/18 13:19 BP 102/56 02/04/18 11:47 Pulse Ox 95 02/04/18 11:47 Intake & Output 02/03/18 02/04/18 02/04/18 18:59 06:59 18:59 Intake Total 210 200 Balance 210 200 Intake: Intake, IV Amount 210 200 Levetiracetam 1,000 mg In 110 Sodium Chloride 0.9% 100 ml @ 400 mls/hr IV Q12H [facility] Rx#:[id number] Piperacillin Sodium/ 100 200 Tazobact 4.5 gm In Sodium Chloride 0.9% 100 ml @ 100 mls/hr IV Q8HR [facility] Rx #:[id number] Other: Stool Characteristics Soft Active Medications: Current Medications Acetaminophen (Tylenol 650mg/20.3ml Suspension) 650 mg GT Q6HR PRN PRN Reason: Pain or Fever >101 Stop: 04/02/18 15:34 Albuterol Sulfate (Albuterol 2.5mg/3ml Neb Ud) 2.5 mg HHN Q4HRT PRN PRN Reason: Respiratory Distress Stop: 04/02/18 15:20 Benztropine Mesylate (Cogentin) 1 mg GT BID [facility] Stop: 04/02/18 16:59 Last Admin: 02/04/18 08:54 Dose: Not Given Chlorhexidine Gluconate (Peridex) 15 ml MM HS [facility] Stop: 04/02/18 20:59 Last Admin: 02/03/18 21:52 Dose: 15 ml Escitalopram Oxalate (Lexapro) 20 mg GT DAILY [facility]; Protocol Stop: 04/03/18 08:59 Last Admin: 02/04/18 08:54 Dose: Not Given Finasteride (Proscar) 5 mg GT DAILY [facility]; Protocol Stop: 04/03/18 08:59 Last Admin: 02/04/18 08:54 Dose: Not Given Fluticasone Propionate (Flonase) 2 spr NS DAILY [facility] Stop: 04/03/18 08:59 Last Admin: 02/04/18 09:39 Dose: 2 spr Levetiracetam 1,000 mg/ Sodium (Chloride) 110 mls @ 400 mls/hr IV Q12H [facility] Stop: 04/02/18 15:29 Last Admin: 02/04/18 03:44 Dose: 400 mls/hr Piperacillin Sod/Tazobactam (Sod 4.5 gm/ Sodium Chloride) 100 mls @ 100 mls/hr IV Q8HR [facility] Stop: 04/02/18 20:59 Last Admin: 02/04/18 12:22 Dose: 100 mls/hr Multivitamins/Minerals 10 ml/Dextrose/ Amino Acids/Electrolytes/ Fat Emulsion Intravenous 1,200 mls @ 50 mls/hr IV .Q24H [facility] Stop: 03/03/18 15:59 Last Admin: 02/02/18 18:16 Dose: 50 mls/hr Multivitamins/Minerals 10 ml/Dextrose/ Amino Acids/Electrolytes/ Fat Emulsion Intravenous 1,440 mls @ 60 mls/hr IV .Q24H [facility] Stop: 03/04/18 15:59 Last Admin: 02/03/18 17:45 Dose: 60 mls/hr Dextrose/Sodium Chloride (D5-0.9%Ns) 1,000 mls @ 20 mls/hr IV .Q24H [facility] Stop: 04/05/18 12:44 Ibuprofen (Motrin) 600 mg GT Q6H PRN PRN Reason: BACK PAIN Stop: 04/02/18 15:20 Insulin Aspart (Novolog Insulin Sliding Scale) 0 units SUBQ ACHS [facility]; Protocol Stop: 04/05/18 11:29 Last Admin: 02/04/18 12:04 Dose: Not Given Ipratropium [place] (Atrovent Neb 0.5mg/2.5ml) 0.5 mg HHN BIDRT [facility] Stop: 04/02/18 18:59 Last Admin: 02/04/18 06:57 Dose: 0.5 mg Lamotrigine (Lamictal) 200 mg GT DAILY [facility] Stop: 04/03/18 08:59 Last Admin: 02/04/18 08:54 Dose: Not Given Lamotrigine (Lamictal) 350 mg GT HS [facility] Stop: 04/02/18 20:59 Last Admin: 02/03/18 21:43 Dose: 350 mg Latanoprost (Xalatan 0.005% Oph Soln) 1 drop EACH EYE HS [facility] Stop: 04/03/18 20:59 Last Admin: 02/03/18 21:42 Dose: 1 drop Levothyroxine Sodium (Synthroid) 0.125 mg GT QDAC [facility] Stop: 04/03/18 09:59 Last Admin: 02/04/18 08:54 Dose: Not Given Lorazepam (Ativan) 1 mg GT BID PRN; Protocol PRN Reason: Agitation Stop: 04/02/18 15:20 Last Admin: 02/02/18 13:03 Dose: 1 mg Methotrexate (Methotrexate) 10 mg PO QWEEK 30 [facility]; Protocol Stop: 04/04/18 07:29 Last Admin: 02/03/18 06:43 Dose: 10 mg Miscellaneous (Tpn Per Pharmacy) 1 [facility] PRN PRN PRN Reason: PROTOCOL Stop: 04/02/18 14:33 Miscellaneous (Brinzolamide/Brimonidine Tart [Simbrinza 1%-0.2% Eye Drops]) 1 drop EACH EYE BID [facility] Stop: 04/02/18 16:59 Miscellaneous (Clonazepam [Clonazepam*]) 1 mg GT BID [facility] Stop: 04/02/18 16:59 Miscellaneous (Tolnaftate [Tinactin]) 150 gm TP DAILY [facility] Stop: 04/03/18 08:59 Pt Own Med.- Onfi ( Clobazam 20mg Tablet ) 1 GT BID [facility] Stop: 04/02/18 16:59 Last Admin: 02/04/18 08:54 Dose: Not Given Patient Own Med- Aptiom ( Eslicarbazepine 600mg Tablet) 1 GT 1600 [facility] Stop: 04/02/18 15:59 Last Admin: 02/03/18 17:44 Dose: 1 Petrolatum (Vaseline Oint) 1 appl TP BID [facility] Stop: 04/02/18 16:59 Last Admin: 02/04/18 09:38 Dose: 1 appl Petrolatum (Zinc Oxide) 1 appl TP QSHIFT [facility] Stop: 04/02/18 19:59 Last Admin: 02/04/18 09:39 Dose: 1 appl Quetiapine Fumarate (Seroquel) 25 mg GT BID [facility]; Protocol Stop: 04/02/18 16:59 Rifaximin (Xifaxan) 600 mg GT BID [facility] Stop: 04/02/18 16:59 Last Admin: 02/04/18 08:54 Dose: Not Given Sodium Chloride ([place]) 1 spr NS QID [facility] Stop: 04/02/18 16:59 Last Admin: 02/04/18 12:22 Dose: 1 spr Tamsulosin HCl (Flomax) 0.4 mg GT HS [facility] Stop: 04/02/18 20:59 Last Admin: 02/03/18 21:42 Dose: 0.4 mg General: weak, alert HEENT: NC/AT, PERRLA Neck: Supple Lungs: CTAB Cardiovascular: RRR, Normal S1, Normal S2, without murmur Abdomen: soft, non-tender, non-distended, positive bowel sound Extremities: excoriation, other (ileostomy site redness) - Procedures Procedures: Procedures Procedure Code Date BYPASS ILEUM TO CUTANEOUS, OPEN APPROACH [id number] 09/23/17 CHANGE FEEDING DEVICE IN UP INTEST TRACT, SHIPPING CHECKER APPROACH [id number] 11/24/17 CHANGE GASTROSTOMY TUBE 73870 11/01/17 DRAINAGE OF SMALL INTESTINE, OPEN APPROACH [id number] 11/01/17 EXPLORATION OF ABDOMEN 96616 11/01/17 FREEING OF BOWEL ADHESION 01389 11/01/17 ILEOSTOMY/JEJUNOSTOMY 46080 09/23/17 INSERTION OF ENDOTRACHEAL AIRWAY INTO TRACHEA, VIA OPENING [id number] 09/23/17 INSERTION OF FEEDING DEVICE INTO STOMACH, OPEN APPROACH [id number] 09/23/17 INTRODUCTION OF NUTRITIONAL INTO CENTRAL VEIN, PERC APPROACH [id number] 09/23/17 PARTIAL REMOVAL OF COLON 25396 09/23/[address] PL[address] GASTROSTOMY TUBE 75670 09/23/17 RELEASE PERITONEUM, OPEN APPROACH [id number] 09/23/17 RELEASE SMALL INTESTINE, OPEN APPROACH [id number] 11/01/17 REPAIR SMALL INTESTINE, OPEN APPROACH [id number] 11/01/17 RESECTION OF LARGE INTESTINE, OPEN APPROACH [id number] 09/23/17 RESPIRATORY VENTILATION, LESS THAN 24 CONSECUTIVE HOURS [id number] 09/23/17 SUTURE SMALL INTESTINE 36872 11/01/17 Internal Medicine Assmt/Plan - Assessment Assessment: sepsis abdominal cellulitis acute uti hypomagnesemia mr cerebral palsy seizures generalized contractures - Plan Plan: ileostomy revision today continue ivabx ppn follow up labs in am continue current plan of care Nutritional Asmnt/Malnutr-PDOC - Dietary Evaluation Malnutrition Findings (Please click <Entered> for more info): Nutritional Asmnt/Malnutrition Start: 02/02/18 17: 36 Text: Status: Complete Freq: Protocol: Document 02/02/18 17:36 RUIG (Rec: 02/02/18 17:54 [email or web address] [email or web address]) Nutritional Asmnt/Malnutrition Patient General Information Nutritional Screening High Risk Consult Diagnosis sepsis, abd cellulitis Pertinent Medical Hx/Surgical Hx hypothyroid, seizure, ileostomy for megacolon, Gtube , MR, CP, colectomy with ileostomy, generalized contractures Subjective Information Consult received for moisture associated wound at ileostomy site. Pt seen sleeping in bed at time of visit. TPN ordered per EMR. Waiting for PICC line consent. Current Diet Order/ Nutrition Support NPO Pertinent Medications D5-0.9%ns, synthroid, theragran, zinc, piperacillin, seroquel Pertinent Labs 02/02 Na 135, BUN 38, glucose 89, Mg 1.7, alb 3.2 Nutritional Hx/Data Height 5 ft 10 in Height (Calculated Centimeters) 177.8 Current Weight (lbs) 157 lb Weight (Calculated Kilograms) 71.2 Weight (Calculated Grams) 47791.0 [place] Body Weight 166 Body Mass Index (BMI) 22.5 Weight Status Approriate GI Symptoms GI Symptoms None Last BM pt has ileostomy Difficult in: None Usual diet at home fibersource HN 1.2 80ml/hr x 21hr at care facility per chart, providing 2016kcal and 93g protein. Skin Integrity/Comment: ileostomy site red Estimated Nutritional Goals BEE in Kcals: Using Current wt Calories/Kcals/Kg 25-30 Kcals Calculated 1662-5879 Protein: Using Current wt Protein g/k-1.2 Protein Calculated 71-85 Fluid: ml 1775-2130ml (1ml/kcal) Nutritional Problem 2. Problem Problem increased nutrition needs Etiology increased metabolic demand Signs/Symptoms: dx of sepsis 1. Problem Problem altered nutrition related labs Etiology electrolytes/fluid imbalance Signs/Symptoms: Na 135, BUN 38 Malnutrition Alert Is there a minimum of two criteria No selected? Query Text:Check all the applicable criteria. A minimum of two criteria are recommended for diagnosis of either severe or non-severe malnutrition. Malnutrition Related to Morbid Obesity Malnutrition related to morbid obesity No Intervention/Recommendation Comments 1. Monitor NPO status. Will evaluate nutrition intake once nutrition support initiated. 2. Monitor wt, labs and skin integrity 3. F/U as high risk in 2-3 days, 02/04-02/05 Expected Outcomes/Goals Expected Outcomes/Goals 1. Pt to meet at least 75% of nutritional needs via nutrition support with tolerance 2. Wt stability, skin to remain intact, labs to approach WNL.
[2018-02-04] MEDS ORDERED: fentaNYL Citrate 100 mcg/2mL Vial ONE (15:58)
[2018-02-04] MEDS ORDERED: Neostigmine 10mg/10mL Vial ONE (17:25)
[2018-02-04] MEDS ORDERED: Propofol **SURGERY USE ONLY** 20 ML IV ONE (17:25)
[2018-02-04] MEDS: Meperidine 25 mg/mL 1mL Syr IVP PRN ×2 (17:40→17:50)
[2018-02-04] MEDS ORDERED: Meperidine 50 mg/mL 1mL Syr ONE (17:44)
--- NOTE | 2018-02-04 18:35 | Operative Report ---
DATE OF SURGERY: 02/04/2018 PREOPERATIVE DIAGNOSES: 1. Malfunctioning ileostomy, right lower quadrant. 2. Mental retardation. 3. Cerebral palsy. 4. Seizures. 5. Severe cervical displacement. POSTOPERATIVE DIAGNOSES: 1. Malfunctioning ileostomy, right lower quadrant. 2. Mental retardation. 3. Cerebral palsy. 4. Seizures. 5. Severe cervical displacement. OPERATION:Exploratory laparotomy with: 1. Resection of diverting ileostomy from right lower quadrant 2. Placement of new diverting ileostomy in the left lower quadrant of the abdomen. 3. Lysis of dense adhesions. 4. Partial small-bowel resection. SURGEON: Carrie Blair. ANESTHESIA: General. ANESTHESIOLOGIST: Myles Bang M.D. INDICATIONS FOR SURGERY: The patient had a subtotal colectomy and diverting ileostomy 4 months ago. The ileostomy stoma has retracted, so that concavity is present not allowing for good seal of the colostomy bag, causing a lot of leakage and cellulitis. DESCRIPTION OF PROCEDURE: The patient was given general anesthesia. The abdomen was prepped with Betadine and draped in appropriate manner. Midline incision was made over the old incision. The abdominal cavity was entered. Lysis of dense adhesions made. The ileostomy in the right lower quadrant of the abdomen was exposed and transected from the peritoneal wall. Following satisfactory hemostasis, the old stump and stoma of the ileostomy was completely excised. The fascia was closed with interrupted suture of #1 Nurolon. In order to allow and adequate length of distal ileum to be brought out as a diverting ileostomy to a new site in the left lower abdomen, a portion of densely adhered bowel was transected and the more proximal portion was brought out as a diverting ileostomy in the left lower quadrant of the abdominal cavity. A portion of skin was excised to allow for the ileostomy to come out. The fascia was divided vertically and then new distal ileum was brought out through this. The ileum was sutured to the anterior abdominal wall with 3-0 silk to prevent internal herniation. Following satisfactory hemostasis, the abdominal incision was closed with running suture of #1 PDS for the fascia and the skin was closed with subcuticular suture of 4-0 Vicryl. The ileostomy was matured in an everting fashion utilizing running suture of 4-0 Vicryl. Colostomy bag was placed over this. The patient will be sent to ICU for overnight observation. [facility]# [id number] [place]
[2018-02-04 18:49] LABS: A1C % 5.7 % (4.0-6.0)
--- NOTE | 2018-02-04 18:52 | Consultation ---
DATE OF CONSULTATION: 02/03/2018 SURGICAL CONSULTATION REFERRING PHYSICIAN: Dr. Rick. REASON FOR CONSULTATION: Leaking ileostomy with cellulitis. Thank you for referring this patient to me. HISTORY OF PRESENT ILLNESS: This is a 63-year-old male with mental retardation and cerebral palsy and underwent a subtotal colectomy 4 months ago at this facility by me because of megacolon. He underwent placement of a diverting ileostomy in the right lower quadrant. The stoma; however, has retracted so that now there is persistently of the bag causing cellulitis and poor control of the ileostomy drainage. Conservator has given consent for the revision of the ileostomy. This patient will be scheduled for surgery. [facility]# [id number]
[2018-02-04] MEDS: TPN 8.5%-70% CUSTOM IV SCH (19:23)
[2018-02-04] MEDS: APTIOM GT SCH (19:42)
[2018-02-04] MEDS: Chlorhexidine Gluconate 0.12% 480mL Bottle MM SCH (20:42)
[2018-02-05] MEDS: INSULIN ASPART SLIDING SCALE 100 UNITS/ML UNIT SUBQ SCH ×4 (00:32→17:23)
[2018-02-05] MEDS: Ipratropium Neb 0.5 mg/2.5 mL UD HHN SCH ×2 (07:45→18:53)
[2018-02-05] MEDS: Levothyroxine 0.125 Mg Tab GT SCH (08:00)
[2018-02-05 08:11] LABS: HEMATOCRIT 29.6 % (41.0-60); HEMOGLOBIN 10.2 gm/dL (12-16); MEAN CORPUSCULAR HEMOGLOBIN 32.7 pg (26.0-30.0); MEAN CORPUSCULAR HGB CONC 34.5 pg (28.0-36.0); MEAN PLATELET VOLUME 6.8 fl; PLATELET COUNT 416 Th/cmm (150-400); RED BLOOD COUNT 3.11 Mil/cmm (4.30-5.70); RED CELL DISTRIBUTION WIDTH 15.2 % (11.5-20.0)
[2018-02-05 08:32] LABS: WHITE BLOOD COUNT 15.5 Th/cmm (4.8-10.8)
[2018-02-05 08:33] LABS: ALB/GLOB RATIO 1.2 (1.0-1.8); ALBUMIN 3.1 gm/dL (4.2-5.5); ALKALINE PHOSPHATASE 109 U/L (34-104); ANION GAP 8.2 (7.0-16.0); BILIRUBIN,TOTAL 0.4 mg/dL (0.3-1.0); BUN - UREA NITROGEN 14 mg/dL (7-25); CALCIUM SERUM 8.4 mg/dL (8.6-10.3); CARBON DIOXIDE 23.6 mEq/L (21.0-31.0); CHLORIDE 107 mEq/L (98-107); CREATININE - SERUM 0.6 mg/dL (0.7-1.3); GFR AFRICAN-AMERICAN > 60.0 ml/min (>90); GFR NON AFRICAN-AMERICAN > 60.0 ml/min; MAGNESIUM 1.9 mg/dL (1.9-2.7); POTASSIUM SERUM 3.8 mEq/L (3.5-5.1); SGOT 41 U/L (13-39); SGPT/ALT 54 U/L (7-52); SODIUM SERUM 135 mEq/L (136-145); TOTAL PROTEIN,SERUM 5.7 gm/dL (6.0-8.3)
[2018-02-05] MEDS: Zinc Oxide Ointment 60 gm TP SCH ×2 (08:35→21:08)
[2018-02-05 08:36] LABS: GLUCOSE 125 mg/dL (70-105)
[2018-02-05 09:20] LABS: BASOPHIL 1 % (0-3); LYMPHOCYTE 8 % (20-50); MONOCYTE 4 % (2-10); NEUTROPHILS 87 % (40-80); PLATELET ESTIMATE INCREASED PLATELETS (NORMAL)
--- NOTE | 2018-02-05 09:23 | General Progress Note ---
Subjective - Review of Systems Service Date: 02/05/18 Events since last encounter: labs noted incision clean start liquids Objective - Results Result Diagrams: 02/05/18 07:45 02/05/18 07:45 Recent Labs: Laboratory Last Values WBC 15.5 Th/cmm (4.8-10.8) H 02/05/18 07:45 RBC 3.11 Mil/cmm (4.30-5.70) L 02/05/18 07:45 Hgb 10.2 gm/dL (12-16) L 02/05/18 07:45 Hct 29.6 % (41.0-60) L 02/05/18 07:45 MCV 95.0 fl (80-99) 02/05/18 07:45 MCH 32.7 pg (26.0-30.0) H 02/05/18 07:45 MCHC Differential 34.5 pg (28.0-36.0) 02/05/18 07:45 RDW 15.2 % (11.5-20.0) 02/05/18 07:45 Plt Count 416 Th/cmm (150-400) H 02/05/18 07:45 MPV 6.8 fl 02/05/18 07:45 Add Manual Diff YES 02/05/18 07:45 Neutrophils % 73.0 % (40.0-80.0) 02/04/18 06:35 Lymphocytes % 13.8 % (20.0-50.0) L 02/04/18 06:35 Monocytes % 8.4 % (2.0-10.0) 02/04/18 06:35 Eosinophils % 4.7 % (0.0-5.0) 02/04/18 06:35 Basophils % 0.1 % (0.0-2.0) 02/04/18 06:35 Neutrophils (Manual) 87 % (40-80) H 02/05/18 07:45 Lymphocytes 8 % (20-50) L 02/05/18 07:45 Monocytes 4 % (2-10) 02/05/18 07:45 Basophils 1 % (0-3) 02/05/18 07:45 Platelet Estimate INCREASED PLATELETS (NORMAL) 02/05/18 07:45 PT 10.3 SECONDS (9.5-11.5) 02/04/18 08:10 INR 0.99 (0.5-1.4) 02/04/18 08:10 Sodium 135 mEq/L (136-145) L 02/05/18 07:45 Potassium 3.8 mEq/L (3.5-5.1) 02/05/18 07:45 Chloride 107 mEq/L (98-107) 02/05/18 07:45 Carbon Dioxide 23.6 mEq/L (21.0-31.0) 02/05/18 07:45 Anion Gap 8.2 (7.0-16.0) 02/05/18 07:45 BUN 14 mg/dL (7-25) 02/05/18 07:45 Creatinine 0.6 mg/dL (0.7-1.3) L 02/05/18 07:45 Est GFR ( Amer) > 60.0 ml/min (>90) 02/05/18 07:45 Est GFR (Non-Af Amer) > 60.0 ml/min 02/05/18 07:45 BUN/Creatinine Ratio 23.3 02/05/18 07:45 Glucose 125 mg/dL (70-105) H D 02/05/18 07:45 POC Glucose 120 MG/DL (70 - 105) H 02/05/18 00:25 Hemoglobin A1c % 5.7 % (4.0-6.0) 02/04/18 06:35 Whole Bld Lactic Acid 0.80 mmol/L (0.60-1.99) 02/01/18 13:39 Calcium 8.4 mg/dL (8.6-10.3) L 02/05/18 07:45 Phosphorus 2.0 mg/dL (2.5-5.0) L 02/05/18 07:45 Magnesium 1.9 mg/dL (1.9-2.7) 02/05/18 07:45 Total Bilirubin 0.4 mg/dL (0.3-1.0) 02/05/18 07:45 AST 41 U/L (13-39) H 02/05/18 07:45 ALT 54 U/L (7-52) H 02/05/18 07:45 Alkaline Phosphatase 109 U/L (34-104) H 02/05/18 07:45 Total Protein 5.7 gm/dL (6.0-8.3) L 02/05/18 07:45 Albumin 3.1 gm/dL (4.2-5.5) L 02/05/18 07:45 Globulin 2.6 gm/dL 02/05/18 07:45 Albumin/Globulin Ratio 1.2 (1.0-1.8) 02/05/18 07:45 Prealbumin 38 mg/dL (10-36) H 02/02/18 05:05 Triglycerides 178 mg/dL (<150) H 02/02/18 05:05 Cholesterol 125 mg/dL (<200) 02/02/18 05:05 TSH 0.27 uIU/ml (0.34-5.60) L 02/01/18 13:39 Urine Source CATH 02/01/18 14:14 Urine Color YELLOW 02/01/18 14:14 Urine Clarity HAZY (CLEAR) 02/01/18 14:14 Urine pH 6.0 (4.6 - 8.0) 02/01/18 14:14 Ur Specific [place] 1.020 (1.005-1.030) 02/01/18 14:14 Urine Protein TRACE mg/dL (NEGATIVE) 02/01/18 14:14 Urine Glucose (UA) NEGATIVE mg/dL (NEGATIVE) 02/01/18 14:14 Urine Ketones NEGATIVE mg/dL (NEGATIVE) 02/01/18 14:14 Urine Blood LARGE (NEGATIVE) H 02/01/18 14:14 Urine Nitrate POSITIVE (NEGATIVE) H 02/01/18 14:14 Urine Bilirubin NEGATIVE (NEGATIVE) 02/01/18 14:14 Urine Urobilinogen 0.2 E.U./dL (0.2 - 1.0) 02/01/18 14:14 Ur Leukocyte Esterase MODERATE (NEGATIVE) H 02/01/18 14:14 Urine RBC 10-25 /hpf (0-5) H 02/01/18 14:14 Urine WBC 6-10 /hpf (0-5) 02/01/18 14:14 Ur Epithelial Cells FEW /lpf (FEW) 02/01/18 14:14 Urine Bacteria MANY /hpf (NONE SEEN) H 02/01/18 14:14 Urine Mucus FEW /lpf (FEW) 02/01/18 14:14 - Physical Exam Vitals and I&O: Vital Signs Temp 98.9 F 02/05/18 04:00 Pulse 69 02/05/18 07:46 Resp 18 02/05/18 07:46 BP 129/70 02/05/18 06:00 Pulse Ox 97 02/05/18 07:46 Intake & Output 02/04/18 02/05/18 02/05/18 18:59 06:59 18:59 Intake Total 1540 420 Output Total 808 Balance 1540 -388 Weight (lbs) 72.076 kg Intake: Intake, IV Amount 1540 420 Levetiracetam 1,000 mg In 220 Sodium Chloride 0.9% 100 ml @ 400 mls/hr IV Q12H [facility] Rx#:[id number] Multivitamin Inj 10 ml In 1440 Dextrose 70% 805 ml In Amino Acids 8.5% 500 ml In Intralipids 20% 125 ml @ 60 mls/hr IV .Q24H [facility] Rx#:[id number] Piperacillin Sodium/ 100 200 Tazobact 4.5 gm In Sodium Chloride 0.9% 100 ml @ 100 mls/hr IV Q8HR [facility] Rx #:[id number] Output: Urine 650 Stool 158 Other: Stool Characteristics Liquid Weight Source Bedscale Active Medications: Current Medications Acetaminophen (Tylenol 650mg/20.3ml Suspension) 650 mg GT Q6HR PRN PRN Reason: Pain or Fever >101 Stop: 04/02/18 15:34 Albuterol Sulfate (Albuterol 2.5mg/3ml Neb Ud) 2.5 mg HHN Q4HRT PRN PRN Reason: Respiratory Distress Stop: 04/02/18 15:20 Benztropine Mesylate (Cogentin) 1 mg GT BID [facility] Stop: 04/02/18 16:59 Last Admin: 02/04/18 19:43 Dose: Not Given Chlorhexidine Gluconate (Peridex) 15 ml MM HS [facility] Stop: 04/02/18 20:59 Last Admin: 02/04/18 20:42 Dose: 15 ml Clonazepam (Klonopin) 1 mg GT BID [facility] Stop: 04/02/18 16:59 Last Admin: 02/04/18 17:00 Dose: Not Given Escitalopram Oxalate (Lexapro) 20 mg GT DAILY [facility]; Protocol Stop: 04/03/18 08:59 Last Admin: 02/04/18 08:54 Dose: Not Given Finasteride (Proscar) 5 mg GT DAILY [facility]; Protocol Stop: 04/03/18 08:59 Last Admin: 02/04/18 08:54 Dose: Not Given Fluticasone Propionate (Flonase) 2 spr NS DAILY [facility] Stop: 04/03/18 08:59 Last Admin: 02/04/18 09:39 Dose: 2 spr Levetiracetam 1,000 mg/ Sodium (Chloride) 110 mls @ 400 mls/hr IV Q12H [facility] Stop: 04/02/18 15:29 Last Infusion: 02/05/18 04:02 Dose: Infused Piperacillin Sod/Tazobactam (Sod 4.5 gm/ Sodium Chloride) 100 mls @ 100 mls/hr IV Q8HR [facility] Stop: 04/02/18 20:59 Last Infusion: 02/05/18 05:57 Dose: Infused Multivitamins/Minerals 10 ml/Dextrose/ Amino Acids/Electrolytes/ Fat Emulsion Intravenous 1,440 mls @ 60 mls/hr IV .Q24H [facility] Stop: 03/04/18 15:59 Last Admin: 02/04/18 19:23 Dose: 60 mls/hr Dextrose/Sodium Chloride (D5-0.9%Ns) 1,000 mls @ 20 mls/hr IV .Q24H [facility] Stop: 04/05/18 12:44 Ibuprofen (Motrin) 600 mg GT Q6H PRN PRN Reason: BACK PAIN Stop: 04/02/18 15:20 Insulin Aspart (Novolog Insulin Sliding Scale) 0 units SUBQ Q6H [facility]; Protocol Stop: 04/06/18 00:00 Last Admin: 02/05/18 06:36 Dose: Not Given Ipratropium [place] (Atrovent Neb 0.5mg/2.5ml) 0.5 mg HHN BIDRT [facility] Stop: 04/02/18 18:59 Last Admin: 02/05/18 07:45 Dose: 0.5 mg Lamotrigine (Lamictal) 200 mg GT DAILY [facility] Stop: 04/03/18 08:59 Last Admin: 02/04/18 08:54 Dose: Not Given Lamotrigine (Lamictal) 350 mg GT HS [facility] Stop: 04/02/18 20:59 Last Admin: 02/04/18 20:40 Dose: 350 mg Latanoprost (Xalatan 0.005% Ophth Soln) 1 drop EACH EYE HS [facility] Stop: 04/03/18 20:59 Last Admin: 02/04/18 20:42 Dose: 1 drop Levothyroxine Sodium (Synthroid) 0.125 mg GT QDAC [facility] Stop: 04/03/18 09:59 Last Admin: 02/04/18 08:54 Dose: Not Given Lorazepam (Ativan) 1 mg GT BID PRN; Protocol PRN Reason: Agitation Stop: 04/02/18 15:20 Last Admin: 02/02/18 13:03 Dose: 1 mg Methotrexate (Methotrexate) 10 mg PO QWEEK 0730 [facility]; Protocol Stop: 04/04/18 07:29 Last Admin: 02/03/18 06:43 Dose: 10 mg Miscellaneous (Tpn Per Pharmacy) 1 ea PRN PRN PRN Reason: PROTOCOL Stop: 04/02/18 14:33 Pt Own Med.- Onfi ( Clobazam 20mg Tablet ) 1 GT BID [facility] Stop: 04/02/18 16:59 Last Admin: 02/04/18 19:43 Dose: Not Given Patient Own Med- Aptiom ( Eslicarbazepine 600mg Tablet) 1 GT 1600 [facility] Stop: 04/02/18 15:59 Last Admin: 02/04/18 19:42 Dose: Not Given Petrolatum (Vaseline Oint) 1 appl TP BID [facility] Stop: 04/02/18 16:59 Last Admin: 02/04/18 17:00 Dose: Not Given Petrolatum (Zinc Oxide) 1 appl TP QSHIFT [facility] Stop: 04/02/18 19:59 Last Admin: 02/04/18 20:00 Dose: 1 appl Quetiapine Fumarate (Seroquel) 25 mg GT BID [facility]; Protocol Stop: 04/02/18 16:59 Last Admin: 02/04/18 17:00 Dose: Not Given Rifaximin (Xifaxan) 600 mg GT BID [facility] Stop: 04/02/18 16:59 Last Admin: 02/04/18 17:00 Dose: Not Given Sodium Chloride ([place] Nasal [place]) 1 spr NS QID [facility] Stop: 04/02/18 16:59 Last Admin: 02/04/18 23:03 Dose: 1 spr Tamsulosin HCl (Flomax) 0.4 mg GT HS [facility] Stop: 04/02/18 20:59 Last Admin: 02/04/18 20:40 Dose: 0.4 mg Tolnaftate (Tinactin 1% Cream) 1 appl TP DAILY [facility] Stop: 04/05/18 17:59 Last Admin: 02/04/18 19:43 Dose: Not Given - Procedures Procedures: Procedures Procedure Code Date BYPASS ILEUM TO CUTANEOUS, OPEN APPROACH [id number] 09/23/17 CHANGE FEEDING DEVICE IN UP INTEST TRACT, CREAM BEATER APPROACH [id number] 11/24/17 CHANGE GASTROSTOMY TUBE 67841 11/01/17 DRAINAGE OF SMALL INTESTINE, OPEN APPROACH [id number] 11/01/17 EXPLORATION OF ABDOMEN 06426 11/01/17 FREEING OF BOWEL ADHESION 60363 11/01/17 ILEOSTOMY/JEJUNOSTOMY 79501 09/23/17 INSERTION OF ENDOTRACHEAL AIRWAY INTO TRACHEA, VIA OPENING [id number] 09/23/17 INSERTION OF FEEDING DEVICE INTO STOMACH, OPEN APPROACH [id number] 09/23/17 INTRODUCTION OF NUTRITIONAL INTO CENTRAL VEIN, PERC APPROACH [id number] 09/23/17 PARTIAL REMOVAL OF COLON 45970 09/23/[address] PLACE GASTROSTOMY TUBE 52552 09/23/17 RELEASE PERITONEUM, OPEN APPROACH [id number] 09/23/17 RELEASE SMALL INTESTINE, OPEN APPROACH [id number] 11/01/17 REPAIR SMALL INTESTINE, OPEN APPROACH [id number] 11/01/17 RESECTION OF LARGE INTESTINE, OPEN APPROACH [id number] 09/23/17 RESPIRATORY VENTILATION, LESS THAN 24 CONSECUTIVE HOURS [id number] 09/23/17 SUTURE SMALL INTESTINE 72758 11/01/17 Assessment/Plan - Problem List Patient Problems: All Active Problems RED SWOLLEN RASH AROUND STOMA SITE (Acute) Nutritional Asmnt/Malnutr-PDOC - Dietary Evaluation Malnutrition Findings (Please click <Entered> for more info): Nutritional Asmnt/Malnutrition Start: 02/02/18 17: 36 Text: Status: Complete Freq: Protocol: Document 02/02/18 17:36 ELGIN (Rec: 02/02/18 17:54 ELGIN [email or web address]) Nutritional Asmnt/Malnutrition Patient General Information Nutritional Screening High Risk Consult Diagnosis sepsis, abd cellulitis Pertinent Medical Hx/Surgical Hx hypothyroid, seizure, ileostomy for megacolon, Gtube , MR, CP, colectomy with ileostomy, generalized contractures Subjective Information Consult received for moisture associated wound at ileostomy site. Pt seen sleeping in bed at time of visit. TPN ordered per EMR. Waiting for PICC line consent. Current Diet Order/ Nutrition Support NPO Pertinent Medications D5-0.9%ns, synthroid, theragran, zinc, piperacillin, seroquel Pertinent Labs 02/02 Na 135, BUN 38, glucose 89, Mg 1.7, alb 3.2 Nutritional Hx/Data Height 1.78 m Height (Calculated Centimeters) 177.8 Current Weight (lbs) 71.214 kg Weight (Calculated Kilograms) 71.2 Weight (Calculated Grams) 95737.0 [place] Body Weight 166 Body Mass Index (BMI) 22.5 Weight Status Approriate GI Symptoms GI Symptoms None Last BM pt has ileostomy Difficult in: None Usual diet at home fibersource HN 1.2 80ml/hr x 21hr at care facility per chart, providing 2016kcal and 93g protein. Skin Integrity/Comment: ileostomy site red Estimated Nutritional Goals BEE in Kcals: Using Current wt Calories/Kcals/Kg 25-30 Kcals Calculated 7490-7913 Protein: Using Current wt Protein g/k-1.2 Protein Calculated 71-85 Fluid: ml 1775-2130ml (1ml/kcal) Nutritional Problem 2. Problem Problem increased nutrition needs Etiology increased metabolic demand Signs/Symptoms: dx of sepsis 1. Problem Problem altered nutrition related labs Etiology electrolytes/fluid imbalance Signs/Symptoms: Na 135, BUN 38 Malnutrition Alert Is there a minimum of two criteria No selected? Query Text:Check all the applicable criteria. A minimum of two criteria are recommended for diagnosis of either severe or non-severe malnutrition. Malnutrition Related to Morbid Obesity Malnutrition related to morbid obesity No Intervention/Recommendation Comments 1. Monitor NPO status. Will evaluate nutrition intake once nutrition support initiated. 2. Monitor wt, labs and skin integrity 3. F/U as high risk in 2-3 days, 02/04-02/05 Expected Outcomes/Goals Expected Outcomes/Goals 1. Pt to meet at least 75% of nutritional needs via nutrition support with tolerance 2. Wt stability, skin to remain intact, labs to approach WNL.
[2018-02-05] MEDS: Petrolatum (White) Oint 0.6 Oz Tube TP SCH ×2 (09:54→17:16)
[2018-02-05] MEDS: Saline 0.65% Nasal Spray NS SCH ×4 (09:55→21:11)
[2018-02-05] MEDS: Benztropine 1 MG TAB GT SCH ×2 (09:56→17:16)
[2018-02-05] MEDS: Fluticasone Propionate Nasal 1 SPR SPR NS SCH (09:56)
[2018-02-05] MEDS: ONFI GT SCH ×2 (09:57→17:15)
[2018-02-05] MEDS ORDERED: Sodium Phosphate 20 MMOLE in Sodium Chloride 0.9% 250 ML IV ONE ×2 (10:30→12:31)
[2018-02-05] MEDS: D5-0.9%NS 1,000 ML IV SCH ×2 (13:00→13:39)
--- NOTE | 2018-02-05 14:45 | Internal Medicine Prog Note ---
Internal Medicine Subjective - Subjective Patient seen and examined:: with staff, chart reviewed Patient is:: awake, non-verbal, non-interactive Per staff patient has:: no adverse event, confused, tolerating meds Internal Medicine Objective - Results Result Diagrams: 02/05/18 07:45 02/05/18 07:45 Recent Labs: Laboratory Last Values WBC 15.5 Th/cmm (4.8-10.8) H 02/05/18 07:45 RBC 3.11 Mil/cmm (4.30-5.70) L 02/05/18 07:45 Hgb 10.2 gm/dL (12-16) L 02/05/18 07:45 Hct 29.6 % (41.0-60) L 02/05/18 07:45 MCV 95.0 fl (80-99) 02/05/18 07:45 MCH 32.7 pg (26.0-30.0) H 02/05/18 07:45 MCHC Differential 34.5 pg (28.0-36.0) 02/05/18 07:45 RDW 15.2 % (11.5-20.0) 02/05/18 07:45 Plt Count 416 Th/cmm (150-400) H 02/05/18 07:45 MPV 6.8 fl 02/05/18 07:45 Add Manual Diff YES 02/05/18 07:45 Neutrophils % 73.0 % (40.0-80.0) 02/04/18 06:35 Lymphocytes % 13.8 % (20.0-50.0) L 02/04/18 06:35 Monocytes % 8.4 % (2.0-10.0) 02/04/18 06:35 Eosinophils % 4.7 % (0.0-5.0) 02/04/18 06:35 Basophils % 0.1 % (0.0-2.0) 02/04/18 06:35 Neutrophils (Manual) 87 % (40-80) H 02/05/18 07:45 Lymphocytes 8 % (20-50) L 02/05/18 07:45 Monocytes 4 % (2-10) 02/05/18 07:45 Basophils 1 % (0-3) 02/05/18 07:45 Platelet Estimate INCREASED PLATELETS (NORMAL) 02/05/18 07:45 PT 10.3 SECONDS (9.5-11.5) 02/04/18 08:10 INR 0.99 (0.5-1.4) 02/04/18 08:10 Sodium 135 mEq/L (136-145) L 02/05/18 07:45 Potassium 3.8 mEq/L (3.5-5.1) 02/05/18 07:45 Chloride 107 mEq/L (98-107) 02/05/18 07:45 Carbon Dioxide 23.6 mEq/L (21.0-31.0) 02/05/18 07:45 Anion Gap 8.2 (7.0-16.0) 02/05/18 07:45 BUN 14 mg/dL (7-25) 02/05/18 07:45 Creatinine 0.6 mg/dL (0.7-1.3) L 02/05/18 07:45 Est GFR ( Amer) > 60.0 ml/min (>90) 02/05/18 07:45 Est GFR (Non-Af Amer) > 60.0 ml/min 02/05/18 07:45 BUN/Creatinine Ratio 23.3 02/05/18 07:45 Glucose 125 mg/dL (70-105) H D 02/05/18 07:45 POC Glucose 106 MG/DL (70 - 105) H 02/05/18 11:56 Hemoglobin A1c % 5.7 % (4.0-6.0) 02/04/18 06:35 Whole Bld Lactic Acid 0.80 mmol/L (0.60-1.99) 02/01/18 13:39 Calcium 8.4 mg/dL (8.6-10.3) L 02/05/18 07:45 Phosphorus 2.0 mg/dL (2.5-5.0) L 02/05/18 07:45 Magnesium 1.9 mg/dL (1.9-2.7) 02/05/18 07:45 Total Bilirubin 0.4 mg/dL (0.3-1.0) 02/05/18 07:45 AST 41 U/L (13-39) H 02/05/18 07:45 ALT 54 U/L (7-52) H 02/05/18 07:45 Alkaline Phosphatase 109 U/L (34-104) H 02/05/18 07:45 Total Protein 5.7 gm/dL (6.0-8.3) L 02/05/18 07:45 Albumin 3.1 gm/dL (4.2-5.5) L 02/05/18 07:45 Globulin 2.6 gm/dL 02/05/18 07:45 Albumin/Globulin Ratio 1.2 (1.0-1.8) 02/05/18 07:45 Prealbumin 38 mg/dL (10-36) H 02/02/18 05:05 Triglycerides 178 mg/dL (<150) H 02/02/18 05:05 Cholesterol 125 mg/dL (<200) 02/02/18 05:05 TSH 0.27 uIU/ml (0.34-5.60) L 02/01/18 13:39 Urine Source CATH 02/01/18 14:14 Urine Color YELLOW 02/01/18 14:14 Urine Clarity HAZY (CLEAR) 02/01/18 14:14 Urine pH 6.0 (4.6 - 8.0) 02/01/18 14:14 Ur Specific [place] 1.020 (1.005-1.030) 02/01/18 14:14 Urine Protein TRACE mg/dL (NEGATIVE) 02/01/18 14:14 Urine Glucose (UA) NEGATIVE mg/dL (NEGATIVE) 02/01/18 14:14 Urine Ketones NEGATIVE mg/dL (NEGATIVE) 02/01/18 14:14 Urine Blood LARGE (NEGATIVE) H 02/01/18 14:14 Urine Nitrate POSITIVE (NEGATIVE) H 02/01/18 14:14 Urine Bilirubin NEGATIVE (NEGATIVE) 02/01/18 14:14 Urine Urobilinogen 0.2 E.U./dL (0.2 - 1.0) 02/01/18 14:14 Ur Leukocyte Esterase MODERATE (NEGATIVE) H 02/01/18 14:14 Urine RBC 10-25 /hpf (0-5) H 02/01/18 14:14 Urine WBC 6-10 /hpf (0-5) 02/01/18 14:14 Ur Epithelial Cells FEW /lpf (FEW) 02/01/18 14:14 Urine Bacteria MANY /hpf (NONE SEEN) H 02/01/18 14:14 Urine Mucus FEW /lpf (FEW) 02/01/18 14:14 - Physical Exam Vitals and I&O: Vital Signs Temp 98.8 F 02/05/18 14:00 Pulse 89 02/05/18 14:00 Resp 13 02/05/18 14:00 BP 135/69 02/05/18 14:00 Pulse Ox 98 02/05/18 14:00 Intake & Output 02/04/18 02/05/18 02/05/18 18:59 06:59 18:59 Intake Total 1540 420 113 Output Total 808 Balance 1540 -388 113 Weight (lbs) 72.076 kg Intake: Intake, IV Amount 1540 420 113 D5-0.9%Ns 1,000 ml @ 20 13 mls/hr IV .Q24H [facility] Rx#: [id number] Levetiracetam 1,000 mg In 220 Sodium Chloride 0.9% 100 ml @ 400 mls/hr IV Q12H [facility] Rx#:[id number] Multivitamin Inj 10 ml In 1440 Dextrose 70% 805 ml In Amino Acids 8.5% 500 ml In Intralipids 20% 125 ml @ 60 mls/hr IV .Q24H [facility] Rx#:[id number] Piperacillin Sodium/ 100 200 100 Tazobact 4.5 gm In Sodium Chloride 0.9% 100 ml @ 100 mls/hr IV Q8HR [facility] Rx #:[id number] Output: Urine 650 Stool 158 Other: Stool Characteristics Liquid Liquid Weight Source Bedscale Active Medications: Current Medications Acetaminophen (Tylenol 650mg/20.3ml Suspension) 650 mg GT Q6HR PRN PRN Reason: Pain or Fever >101 Stop: 04/02/18 15:34 Albuterol Sulfate (Albuterol 2.5mg/3ml Neb Ud) 2.5 mg HHN Q4HRT PRN PRN Reason: Respiratory Distress Stop: 04/02/18 15:20 Benztropine Mesylate (Cogentin) 1 mg GT BID [facility] Stop: 04/02/18 16:59 Last Admin: 02/05/18 09:56 Dose: Not Given Chlorhexidine Gluconate (Peridex) 15 ml MM HS [facility] Stop: 04/02/18 20:59 Last Admin: 02/04/18 20:42 Dose: 15 ml Clonazepam (Klonopin) 1 mg GT BID [facility] Stop: 04/02/18 16:59 Last Admin: 02/05/18 09:54 Dose: Not Given Escitalopram Oxalate (Lexapro) 20 mg GT DAILY [facility]; Protocol Stop: 04/03/18 08:59 Last Admin: 02/05/18 09:56 Dose: Not Given Finasteride (Proscar) 5 mg GT DAILY [facility]; Protocol Stop: 04/03/18 08:59 Last Admin: 02/05/18 09:56 Dose: Not Given Fluticasone Propionate (Flonase) 2 spr NS DAILY [facility] Stop: 04/03/18 08:59 Last Admin: 02/05/18 09:56 Dose: 2 spr Levetiracetam 1,000 mg/ Sodium (Chloride) 110 mls @ 400 mls/hr IV Q12H [facility] Stop: 04/02/18 15:29 Last Infusion: 02/05/18 04:02 Dose: Infused Piperacillin Sod/Tazobactam (Sod 4.5 gm/ Sodium Chloride) 100 mls @ 100 mls/hr IV Q8HR [facility] Stop: 04/02/18 20:59 Last Infusion: 02/05/18 13:15 Dose: Infused Multivitamins/Minerals 10 ml/Dextrose/ Amino Acids/Electrolytes/ Fat Emulsion Intravenous 1,440 mls @ 60 mls/hr IV .Q24H [facility] Stop: 03/04/18 15:59 Last Admin: 02/04/18 19:23 Dose: 60 mls/hr Dextrose/Sodium Chloride (D5-0.9%Ns) 1,000 mls @ 20 mls/hr IV .Q24H [facility] Stop: 04/05/18 12:44 Last Admin: 02/05/18 13:39 Dose: 20 mls/hr Sodium Phosphate 20 mmole/ (Sodium Chloride) 256.6667 mls @ 42 mls/hr IV ONCE ONE Stop: 02/05/18 16:36 Last Admin: 02/05/18 10:21 Dose: 42 mls/hr Ibuprofen (Motrin) 600 mg GT Q6H PRN PRN Reason: BACK PAIN Stop: 04/02/18 15:20 Insulin Aspart (Novolog Insulin Sliding Scale) 0 units SUBQ Q6H [facility]; Protocol Stop: 04/06/18 00:00 Last Admin: 02/05/18 12:15 Dose: Not Given Ipratropium [place] (Atrovent Neb 0.5mg/2.5ml) 0.5 mg HHN BIDRT [facility] Stop: 04/02/18 18:59 Last Admin: 02/05/18 07:45 Dose: 0.5 mg Lamotrigine (Lamictal) 200 mg GT DAILY [facility] Stop: 04/03/18 08:59 Last Admin: 02/05/18 09:56 Dose: Not Given Lamotrigine (Lamictal) 350 mg GT HS [facility] Stop: 04/02/18 20:59 Last Admin: 02/04/18 20:40 Dose: 350 mg Latanoprost (Xalatan 0.005% Ophth Soln) 1 drop EACH EYE HS [facility] Stop: 04/03/18 20:59 Last Admin: 02/04/18 20:42 Dose: 1 drop Levothyroxine Sodium (Synthroid) 0.125 mg GT QDAC [facility] Stop: 04/03/18 09:59 Last Admin: 02/05/18 08:00 Dose: Not Given Lorazepam (Ativan) 1 mg GT BID PRN; Protocol PRN Reason: Agitation Stop: 04/02/18 15:20 Last Admin: 02/02/18 13:03 Dose: 1 mg Methotrexate (Methotrexate) 10 mg PO QWEEK 0730 [facility]; Protocol Stop: 04/04/18 07:29 Last Admin: 02/03/18 06:43 Dose: 10 mg Miscellaneous (Tpn Per Pharmacy) 1 ea MC PRN PRN PRN Reason: PROTOCOL Stop: 04/02/18 14:33 Pt Own Med.- Onfi ( Clobazam 20mg Tablet ) 1 GT BID [facility] Stop: 04/02/18 16:59 Last Admin: 02/05/18 09:57 Dose: Not Given Patient Own Med- Aptiom ( Eslicarbazepine 600mg Tablet) 1 GT 1600 [facility] Stop: 04/02/18 15:59 Last Admin: 02/04/18 19:42 Dose: Not Given Petrolatum (Vaseline Oint) 1 appl TP BID [facility] Stop: 04/02/18 16:59 Last Admin: 02/05/18 09:54 Dose: 1 appl Petrolatum (Zinc Oxide) 1 appl TP QSHIFT [facility] Stop: 04/02/18 19:59 Last Admin: 02/05/18 08:35 Dose: 1 appl Quetiapine Fumarate (Seroquel) 25 mg GT BID [facility]; Protocol Stop: 04/02/18 16:59 Last Admin: 02/05/18 09:55 Dose: Not Given Rifaximin (Xifaxan) 600 mg GT BID [facility] Stop: 04/02/18 16:59 Last Admin: 02/05/18 09:57 Dose: Not Given Sodium Chloride ([place] Nasal [place]) 1 spr NS QID [facility] Stop: 04/02/18 16:59 Last Admin: 02/05/18 13:37 Dose: 1 spr Tamsulosin HCl (Flomax) 0.4 mg GT HS [facility] Stop: 04/02/18 20:59 Last Admin: 02/04/18 20:40 Dose: 0.4 mg Tolnaftate (Tinactin 1% Cream) 1 appl TP DAILY [facility] Stop: 04/05/18 17:59 Last Admin: 02/05/18 09:57 Dose: 1 appl General: weak, demented HEENT: NC/AT, PERRLA Neck: Supple Lungs: CTAB Cardiovascular: RRR, Normal S1, Normal S2, without murmur Abdomen: soft, non-tender, non-distended, positive bowel sound, other (ileostomy ) Extremities: excoriation, contracture, other (ileostomy site redness) Neurological: lethargic, disorganized, muscle weakness - Procedures Procedures: Procedures Procedure Code Date BYPASS ILEUM TO CUTANEOUS, OPEN APPROACH [id number] 09/23/17 CHANGE FEEDING DEVICE IN UP INTEST TRACT, AREA ATTENDANT APPROACH [id number] 11/24/17 CHANGE GASTROSTOMY TUBE 10606 11/01/17 DRAINAGE OF SMALL INTESTINE, OPEN APPROACH [id number] 11/01/17 EXPLORATION OF ABDOMEN 59183 11/01/17 FREEING OF BOWEL ADHESION 73315 11/01/17 ILEOSTOMY/JEJUNOSTOMY 67671 09/23/17 INSERTION OF ENDOTRACHEAL AIRWAY INTO TRACHEA, VIA OPENING [id number] 09/23/17 INSERTION OF FEEDING DEVICE INTO STOMACH, OPEN APPROACH [id number] 09/23/17 INTRODUCTION OF NUTRITIONAL INTO CENTRAL VEIN, PERC APPROACH [id number] 09/23/17 PARTIAL REMOVAL OF COLON 21590 09/23/[address] PL[address] GASTROSTOMY TUBE 30570 09/23/17 RELEASE PERITONEUM, OPEN APPROACH [id number] 09/23/17 RELEASE SMALL INTESTINE, OPEN APPROACH [id number] 11/01/17 REPAIR SMALL INTESTINE, OPEN APPROACH [id number] 11/01/17 RESECTION OF LARGE INTESTINE, OPEN APPROACH [id number] 09/23/17 RESPIRATORY VENTILATION, LESS THAN 24 CONSECUTIVE HOURS [id number] 09/23/17 SUTURE SMALL INTESTINE 59374 11/01/17 Internal Medicine Assmt/Plan - Assessment Assessment: Assessment: sepsis abdominal cellulitis acute uti hypomagnesemia mr cerebral palsy seizures generalized contractures - Plan Plan: ileostomy revision done continue ivabx ppn follow up labs in am continue current plan of care - Plan Plan: wound care Nutritional Asmnt/Malnutr-PDOC - Dietary Evaluation Malnutrition Findings (Please click <Entered> for more info): Nutritional Asmnt/Malnutrition Start: 02/02/18 17: 36 Text: Status: Complete Freq: Protocol: Document 02/02/18 17:36 LCHENG (Rec: 02/02/18 17:54 [email or web address] [email or web address]) Nutritional Asmnt/Malnutrition Patient General Information Nutritional Screening High Risk Consult Diagnosis sepsis, abd cellulitis Pertinent Medical Hx/Surgical Hx hypothyroid, seizure, ileostomy for megacolon, Gtube , MR, CP, colectomy with ileostomy, generalized contractures Subjective Information Consult received for moisture associated wound at ileostomy site. Pt seen sleeping in bed at time of visit. TPN ordered per EMR. Waiting for PICC line consent. Current Diet Order/ Nutrition Support NPO Pertinent Medications D5-0.9%ns, synthroid, theragran, zinc, piperacillin, seroquel Pertinent Labs 02/02 Na 135, BUN 38, glucose 89, Mg 1.7, alb 3.2 Nutritional Hx/Data Height 1.78 m Height (Calculated Centimeters) 177.8 Current Weight (lbs) 71.214 kg Weight (Calculated Kilograms) 71.2 Weight (Calculated Grams) 61309.0 [place] Body Weight 166 Body Mass Index (BMI) 22.5 Weight Status Approriate GI Symptoms GI Symptoms None Last BM pt has ileostomy Difficult in: None Usual diet at home fibersource HN 1.2 80ml/hr x 21hr at care facility per chart, providing 2016kcal and 93g protein. Skin Integrity/Comment: ileostomy site red Estimated Nutritional Goals BEE in Kcals: Using Current wt Calories/Kcals/Kg 25-30 Kcals Calculated 2749-1335 Protein: Using Current wt Protein g/k-1.2 Protein Calculated 71-85 Fluid: ml 1775-2130ml (1ml/kcal) Nutritional Problem 2. Problem Problem increased nutrition needs Etiology increased metabolic demand Signs/Symptoms: dx of sepsis 1. Problem Problem altered nutrition related labs Etiology electrolytes/fluid imbalance Signs/Symptoms: Na 135, BUN 38 Malnutrition Alert Is there a minimum of two criteria No selected? Query Text:Check all the applicable criteria. A minimum of two criteria are recommended for diagnosis of either severe or non-severe malnutrition. Malnutrition Related to Morbid Obesity Malnutrition related to morbid obesity No Intervention/Recommendation Comments 1. Monitor NPO status. Will evaluate nutrition intake once nutrition support initiated. 2. Monitor wt, labs and skin integrity 3. F/U as high risk in 2-3 days, 02/04-02/05 Expected Outcomes/Goals Expected Outcomes/Goals 1. Pt to meet at least 75% of nutritional needs via nutrition support with tolerance 2. Wt stability, skin to remain intact, labs to approach WNL.
[2018-02-05] MEDS: TPN 8.5%-70% CUSTOM IV SCH (15:43)
[2018-02-05] MEDS: APTIOM GT SCH (15:50)
[2018-02-05] MEDS: Chlorhexidine Gluconate 0.12% 480mL Bottle MM SCH (21:08)
[2018-02-06] MEDS: INSULIN ASPART SLIDING SCALE 100 UNITS/ML UNIT SUBQ SCH ×5 (01:09→23:29)
[2018-02-06 06:34] LABS: % BASOPHILS 2.2 % (0.0-2.0); % EOSINOPHILS 10.3 % (0.0-5.0); % LYMPHOCYTES 10.8 % (20.0-50.0); % MONOCYTES 14.9 % (2.0-10.0); % NEUTROPHILS 61.8 % (40.0-80.0); BASOPHILE ABSOLUTE 0.3 Th/cumm (0-0.2); EOSINOPHILE ABSOLUTE 1.3 Th/cmm (0.1-0.4); HEMATOCRIT 26.6 % (41.0-60); HEMOGLOBIN 9.4 gm/dL (12-16); LYMPHOCYTE ABSOLUTE 1.4 Th/cmm (1.5-3.0); MEAN CELL VOLUME 97.6 fl (80-99); MEAN CORPUSCULAR HEMOGLOBIN 34.4 pg (26.0-30.0); MEAN CORPUSCULAR HGB CONC 35.3 pg (28.0-36.0); MONOCYTE ABSOLUTE 1.9 Th/cmm (0.3-1.0); NEUTROPHILE ABSOLUTE 8.1 Th/cmm (1.8-8.0); PLATELET COUNT 347 Th/cmm (150-400); RED BLOOD COUNT 2.73 Mil/cmm (4.30-5.70)
[2018-02-06] MEDS: Ipratropium Neb 0.5 mg/2.5 mL UD HHN SCH ×2 (06:51→19:14)
[2018-02-06 07:42] LABS: ALB/GLOB RATIO 1.1 (1.0-1.8); ALBUMIN 2.7 gm/dL (4.2-5.5); ALKALINE PHOSPHATASE 107 U/L (34-104); BILIRUBIN,TOTAL 0.3 mg/dL (0.3-1.0); BUN - UREA NITROGEN 12 mg/dL (7-25); CHLORIDE 107 mEq/L (98-107); CREATININE - SERUM 0.6 mg/dL (0.7-1.3); GFR AFRICAN-AMERICAN > 60.0 ml/min (>90); GFR NON AFRICAN-AMERICAN > 60.0 ml/min; GLUCOSE 136 mg/dL (70-105); MAGNESIUM 1.9 mg/dL (1.9-2.7); PHOSPHOROUS 2.1 mg/dL (2.5-5.0); SGOT 22 U/L (13-39); SGPT/ALT 39 U/L (7-52); SODIUM SERUM 136 mEq/L (136-145); TOTAL PROTEIN,SERUM 5.2 gm/dL (6.0-8.3)
[2018-02-06] MEDS ORDERED: SODIUM CHLORIDE IV ONE (09:30)
[2018-02-06] MEDS: Levothyroxine 0.125 Mg Tab GT SCH (09:30)
[2018-02-06] MEDS: Benztropine 1 MG TAB GT SCH ×2 (09:30→16:30)
[2018-02-06] MEDS ORDERED: SODIUM PHOSPHATE IV ONE (09:30)
[2018-02-06] MEDS: Petrolatum (White) Oint 0.6 Oz Tube TP SCH ×2 (09:31→16:31)
[2018-02-06] MEDS: Zinc Oxide Ointment 60 gm TP SCH ×2 (09:32→22:43)
[2018-02-06] MEDS: Sodium Chloride 0.9% 500 ML IV SCH (09:45)
[2018-02-06] MEDS: Fluticasone Propionate Nasal 1 SPR SPR NS SCH (10:07)
[2018-02-06] MEDS: Saline 0.65% Nasal Spray NS SCH ×4 (10:08→23:04)
--- NOTE | 2018-02-06 10:50 | Internal Medicine Prog Note ---
Internal Medicine Subjective - Subjective Service Date: 02/06/18 Patient is:: awake, non-verbal, non-interactive Per staff patient has:: no adverse event, confused, tolerating meds Internal Medicine Objective - Results Result Diagrams: 02/06/18 06:10 02/06/18 07:15 Recent Labs: Laboratory Last Values WBC 13.0 Th/cmm (4.8-10.8) H 02/06/18 06:10 RBC 2.73 Mil/cmm (4.30-5.70) L 02/06/18 06:10 Hgb 9.4 gm/dL (12-16) L 02/06/18 06:10 Hct 26.6 % (41.0-60) L 02/06/18 06:10 MCV 97.6 fl (80-99) 02/06/18 06:10 MCH 34.4 pg (26.0-30.0) H 02/06/18 06:10 MCHC Differential 35.3 pg (28.0-36.0) 02/06/18 06:10 RDW 16.0 % (11.5-20.0) 02/06/18 06:10 Plt Count 347 Th/cmm (150-400) 02/06/18 06:10 MPV 7.0 fl 02/06/18 06:10 Add Manual Diff YES 02/05/18 07:45 Neutrophils % 61.8 % (40.0-80.0) 02/06/18 06:10 Lymphocytes % 10.8 % (20.0-50.0) L 02/06/18 06:10 Monocytes % 14.9 % (2.0-10.0) H 02/06/18 06:10 Eosinophils % 10.3 % (0.0-5.0) H 02/06/18 06:10 Basophils % 2.2 % (0.0-2.0) H 02/06/18 06:10 Neutrophils (Manual) 87 % (40-80) H 02/05/18 07:45 Lymphocytes 8 % (20-50) L 02/05/18 07:45 Monocytes 4 % (2-10) 02/05/18 07:45 Basophils 1 % (0-3) 02/05/18 07:45 Platelet Estimate INCREASED PLATELETS (NORMAL) 02/05/18 07:45 PT 10.3 SECONDS (9.5-11.5) 02/04/18 08:10 INR 0.99 (0.5-1.4) 02/04/18 08:10 Sodium 136 mEq/L (136-145) 02/06/18 07:15 Potassium 4.0 mEq/L (3.5-5.1) 02/06/18 07:15 Chloride 107 mEq/L (98-107) 02/06/18 07:15 Carbon Dioxide 25.0 mEq/L (21.0-31.0) 02/06/18 07:15 Anion Gap 8.0 (7.0-16.0) 02/06/18 07:15 BUN 12 mg/dL (7-25) 02/06/18 07:15 Creatinine 0.6 mg/dL (0.7-1.3) L 02/06/18 07:15 Est GFR ( Amer) > 60.0 ml/min (>90) 02/06/18 07:15 Est GFR (Non-Af Amer) > 60.0 ml/min 02/06/18 07:15 BUN/Creatinine Ratio 20.0 02/06/18 07:15 Glucose 136 mg/dL (70-105) H 02/06/18 07:15 POC Glucose 119 MG/DL (70 - 105) H 02/06/18 05:06 Hemoglobin A1c % 5.7 % (4.0-6.0) 02/04/18 06:35 Whole Bld Lactic Acid 0.80 mmol/L (0.60-1.99) 02/01/18 13:39 Calcium 8.0 mg/dL (8.6-10.3) L 02/06/18 07:15 Phosphorus 2.1 mg/dL (2.5-5.0) L 02/06/18 07:15 Magnesium 1.9 mg/dL (1.9-2.7) 02/06/18 07:15 Total Bilirubin 0.3 mg/dL (0.3-1.0) 02/06/18 07:15 AST 22 U/L (13-39) 02/06/18 07:15 ALT 39 U/L (7-52) 02/06/18 07:15 Alkaline Phosphatase 107 U/L (34-104) H 02/06/18 07:15 Total Protein 5.2 gm/dL (6.0-8.3) L 02/06/18 07:15 Albumin 2.7 gm/dL (4.2-5.5) L 02/06/18 07:15 Globulin 2.5 gm/dL 02/06/18 07:15 Albumin/Globulin Ratio 1.1 (1.0-1.8) 02/06/18 07:15 Prealbumin 38 mg/dL (10-36) H 02/02/18 05:05 Triglycerides 178 mg/dL (<150) H 02/02/18 05:05 Cholesterol 125 mg/dL (<200) 02/02/18 05:05 TSH 0.27 uIU/ml (0.34-5.60) L 02/01/18 13:39 Urine Source CATH 02/01/18 14:14 Urine Color YELLOW 02/01/18 14:14 Urine Clarity HAZY (CLEAR) 02/01/18 14:14 Urine pH 6.0 (4.6 - 8.0) 02/01/18 14:14 Ur Specific [place] 1.020 (1.005-1.030) 02/01/18 14:14 Urine Protein TRACE mg/dL (NEGATIVE) 02/01/18 14:14 Urine Glucose (UA) NEGATIVE mg/dL (NEGATIVE) 02/01/18 14:14 Urine Ketones NEGATIVE mg/dL (NEGATIVE) 02/01/18 14:14 Urine Blood LARGE (NEGATIVE) H 02/01/18 14:14 Urine Nitrate POSITIVE (NEGATIVE) H 02/01/18 14:14 Urine Bilirubin NEGATIVE (NEGATIVE) 02/01/18 14:14 Urine Urobilinogen 0.2 E.U./dL (0.2 - 1.0) 02/01/18 14:14 Ur Leukocyte Esterase MODERATE (NEGATIVE) H 02/01/18 14:14 Urine RBC 10-25 /hpf (0-5) H 02/01/18 14:14 Urine WBC 6-10 /hpf (0-5) 02/01/18 14:14 Ur Epithelial Cells FEW /lpf (FEW) 02/01/18 14:14 Urine Bacteria MANY /hpf (NONE SEEN) H 02/01/18 14:14 Urine Mucus FEW /lpf (FEW) 02/01/18 14:14 - Physical Exam Vitals and I&O: Vital Signs Temp 97.2 F 02/06/18 04:00 Pulse 72 02/06/18 06:51 Resp 18 02/06/18 06:51 BP 108/57 02/06/18 06:00 Pulse Ox 100 02/06/18 06:51 Intake & Output 02/05/18 02/06/18 02/06/18 18:59 06:59 18:59 Intake Total 2002 310 200 Output Total 1120 1000 Balance 883 310 -800 Weight (lbs) 159 lb 6 oz 159 lb Intake: Intake, IV Amount 1443 310 D5-0.9%Ns 1,000 ml @ 20 13 mls/hr IV .Q24H [facility] Rx#: [id number] Levetiracetam 1,000 mg In 110 110 Sodium Chloride 0.9% 100 ml @ 400 mls/hr IV Q12H [facility] Rx#:[id number] Multivitamin Inj 10 ml In 1220 Dextrose 70% 805 ml In Amino Acids 8.5% 500 ml In Intralipids 20% 125 ml @ 60 mls/hr IV .Q24H [facility] Rx#:[id number] Piperacillin Sodium/ 100 200 Tazobact 4.5 gm In Sodium Chloride 0.9% 100 ml @ 100 mls/hr IV Q8HR [facility] Rx #:[id number] Tube Feeding 210 Other 350 200 Output: Urine 1050 800 Stool 0 Other 70 200 Other: # Bowel Movements 0 Stool Characteristics Liquid Liquid Weight Source Bedscale Bedscale Active Medications: Current Medications Acetaminophen (Tylenol 650mg/20.3ml Suspension) 650 mg GT Q6HR PRN PRN Reason: Pain or Fever >101 Stop: 04/02/18 15:34 Albuterol Sulfate (Albuterol 2.5mg/3ml Neb Ud) 2.5 mg HHN Q4HRT PRN PRN Reason: Respiratory Distress Stop: 04/02/18 15:20 Benztropine Mesylate (Cogentin) 1 mg GT BID [facility] Stop: 04/02/18 16:59 Last Admin: 02/06/18 09:30 Dose: 1 mg Chlorhexidine Gluconate (Peridex) 15 ml MM HS [facility] Stop: 04/02/18 20:59 Last Admin: 02/05/18 21:08 Dose: 15 ml Clonazepam (Klonopin) 1 mg GT BID [facility] Stop: 04/02/18 16:59 Last Admin: 02/06/18 09:30 Dose: 1 mg Escitalopram Oxalate (Lexapro) 20 mg GT DAILY [facility]; Protocol Stop: 04/03/18 08:59 Last Admin: 02/06/18 09:29 Dose: 20 mg Finasteride (Proscar) 5 mg GT DAILY [facility]; Protocol Stop: 04/03/18 08:59 Last Admin: 02/06/18 09:29 Dose: 5 mg Fluticasone Propionate (Flonase) 2 spr NS DAILY [facility] Stop: 04/03/18 08:59 Last Admin: 02/06/18 10:07 Dose: 2 spr Levetiracetam 1,000 mg/ Sodium (Chloride) 110 mls @ 400 mls/hr IV Q12H [facility] Stop: 04/02/18 15:29 Last Infusion: 02/06/18 04:40 Dose: Infused Piperacillin Sod/Tazobactam (Sod 4.5 gm/ Sodium Chloride) 100 mls @ 100 mls/hr IV Q8HR [facility] Stop: 04/02/18 20:59 Last Infusion: 02/06/18 06:45 Dose: Infused Multivitamins/Minerals 10 ml/Dextrose/ Amino Acids/Electrolytes/ Fat Emulsion Intravenous 1,440 mls @ 60 mls/hr IV .Q24H [facility] Stop: 03/04/18 15:59 Last Admin: 02/05/18 15:43 Dose: 60 mls/hr Sodium Chloride (Nacl 0.9%) 500 mls @ 20 mls/hr IV .Q24H [facility] Stop: 04/07/18 09:14 Last Admin: 02/06/18 09:45 Dose: 20 mls/hr Sodium Phosphate 21 mmole/ (Sodium Chloride) 257 mls @ 42.833 mls/hr IV ONCE ONE Stop: 02/06/18 15:29 Last Admin: 02/06/18 09:49 Dose: 42.833 mls/hr Ibuprofen (Motrin) 600 mg GT Q6H PRN PRN Reason: BACK PAIN Stop: 04/02/18 15:20 Insulin Aspart (Novolog Insulin Sliding Scale) 0 units SUBQ Q6H [facility]; Protocol Stop: 04/06/18 00:00 Last Admin: 02/06/18 05:43 Dose: Not Given Ipratropium [place] (Atrovent Neb 0.5mg/2.5ml) 0.5 mg HHN BIDRT [facility] Stop: 04/02/18 18:59 Last Admin: 02/06/18 06:51 Dose: 0.5 mg Lamotrigine (Lamictal) 200 mg GT DAILY [facility] Stop: 04/03/18 08:59 Last Admin: 02/06/18 09:29 Dose: 200 mg Lamotrigine (Lamictal) 350 mg GT HS [facility] Stop: 04/02/18 20:59 Last Admin: 02/05/18 21:09 Dose: 350 mg Latanoprost (Xalatan 0.005% Ophth Soln) 1 drop EACH EYE HS [facility] Stop: 04/03/18 20:59 Last Admin: 02/05/18 21:09 Dose: 1 drop Levothyroxine Sodium (Synthroid) 0.125 mg GT QDAC [facility] Stop: 04/03/18 09:59 Last Admin: 02/06/18 09:30 Dose: 0.125 mg Lorazepam (Ativan) 1 mg GT BID PRN; Protocol PRN Reason: Agitation Stop: 04/02/18 15:20 Last Admin: 02/02/18 13:03 Dose: 1 mg Methotrexate (Methotrexate) 10 mg PO QWEEK 0730 [facility]; Protocol Stop: 04/04/18 07:29 Last Admin: 02/03/18 06:43 Dose: 10 mg Miscellaneous (Tpn Per Pharmacy) 1 [facility] PRN PRN PRN Reason: PROTOCOL Stop: 04/02/18 14:33 Pt Own Med.- Onfi ( Clobazam 20mg Tablet ) 1 GT BID [facility] Stop: 04/02/18 16:59 Last Admin: 02/05/18 17:15 Dose: 1 Patient Own Med- Aptiom ( Eslicarbazepine 600mg Tablet) 1 GT 1600 [facility] Stop: 04/02/18 15:59 Last Admin: 02/05/18 15:50 Dose: 1 Petrolatum (Vaseline Oint) 1 appl TP BID [facility] Stop: 04/02/18 16:59 Last Admin: 02/06/18 09:31 Dose: 1 appl Petrolatum (Zinc Oxide) 1 appl TP QSHIFT [facility] Stop: 04/02/18 19:59 Last Admin: 02/06/18 09:32 Dose: 1 appl Quetiapine Fumarate (Seroquel) 25 mg GT BID [facility]; Protocol Stop: 04/02/18 16:59 Last Admin: 02/06/18 09:30 Dose: 25 mg Rifaximin (Xifaxan) 600 mg GT BID [facility] Stop: 04/02/18 16:59 Last Admin: 02/06/18 09:30 Dose: 600 mg Sodium Chloride ([place] Nasal [place]) 1 spr NS QID [facility] Stop: 04/02/18 16:59 Last Admin: 02/06/18 10:08 Dose: 1 spr Tamsulosin HCl (Flomax) 0.4 mg GT HS [facility] Stop: 04/02/18 20:59 Last Admin: 02/05/18 21:08 Dose: 0.4 mg Tolnaftate (Tinactin 1% Cream) 1 appl TP DAILY [facility] Stop: 04/05/18 17:59 Last Admin: 02/06/18 09:30 Dose: 1 appl General: weak, demented HEENT: NC/AT, PERRLA Neck: Supple Lungs: CTAB Cardiovascular: RRR, Normal S1, Normal S2, without murmur Abdomen: soft, non-tender, non-distended, positive bowel sound, other (ileostomy ) Extremities: excoriation, contracture, other (ileostomy site redness) Neurological: lethargic, disorganized, muscle weakness - Procedures Procedures: Procedures Procedure Code Date BYPASS ILEUM TO CUTANEOUS, OPEN APPROACH [id number] 02/01/18 CHANGE FEEDING DEVICE IN UP INTEST TRACT, NEUROCRITICAL CARE PHYSICIAN APPROACH [id number] 11/24/17 CHANGE GASTROSTOMY TUBE 34350 11/01/17 DRAINAGE OF SMALL INTESTINE, OPEN APPROACH [id number] 11/01/17 EXPLORATION OF ABDOMEN 87616 11/01/17 FREEING OF BOWEL ADHESION 84135 11/01/17 ILEOSTOMY/JEJUNOSTOMY 84769 09/23/17 INSERTION OF ENDOTRACHEAL AIRWAY INTO TRACHEA, VIA OPENING [id number] 09/23/17 INSERTION OF FEEDING DEVICE INTO STOMACH, OPEN APPROACH [id number] 09/23/17 INTRODUCTION OF NUTRITIONAL INTO CENTRAL VEIN, PERC APPROACH [id number] 09/23/17 PARTIAL REMOVAL OF COLON 60465 09/23/[address] GASTROSTOMY TUBE 08440 09/23/17 RELEASE OMENTUM, OPEN APPROACH [id number] 02/01/18 RELEASE PERITONEUM, OPEN APPROACH [id number] 09/23/17 RELEASE SMALL INTESTINE, OPEN APPROACH [id number] 11/01/17 REPAIR SMALL INTESTINE, OPEN APPROACH [id number] 11/01/17 REPOSITION ILEUM, OPEN APPROACH [id number] 02/01/18 RESECTION OF LARGE INTESTINE, OPEN APPROACH [id number] 09/23/17 RESPIRATORY VENTILATION, LESS THAN 24 CONSECUTIVE HOURS [id number] 09/23/17 SUTURE SMALL INTESTINE 32750 11/01/17 Internal Medicine Assmt/Plan - Assessment Assessment: s/p resection of diverting ileostomy from right lower quadrant and placement of new diverting ileostomy in the left lower quadrant sepsis abdominal cellulitis acute uti hypomagnesemia mr cerebral palsy seizures generalized contractures - Plan Plan: taper ppn continue ivabx follow up labs in am continue current plan of care Nutritional Asmnt/Malnutr-PDOC - Dietary Evaluation Malnutrition Findings (Please click <Entered> for more info): Nutritional Asmnt/Malnutrition Start: 02/02/18 17: 36 Text: Status: Complete Freq: Protocol: Document 02/02/18 17:36 LCHENG (Rec: 02/02/18 17:54 [email or web address] [email or web address]) Nutritional Asmnt/Malnutrition Patient General Information Nutritional Screening High Risk Consult Diagnosis sepsis, abd cellulitis Pertinent Medical Hx/Surgical Hx hypothyroid, seizure, ileostomy for megacolon, Gtube , MR, CP, colectomy with ileostomy, generalized contractures Subjective Information Consult received for moisture associated wound at ileostomy site. Pt seen sleeping in bed at time of visit. TPN ordered per EMR. Waiting for PICC line consent. Current Diet Order/ Nutrition Support NPO Pertinent Medications D5-0.9%ns, synthroid, theragran, zinc, piperacillin, seroquel Pertinent Labs 02/02 Na 135, BUN 38, glucose 89, Mg 1.7, alb 3.2 Nutritional Hx/Data Height 5 ft 10 in Height (Calculated Centimeters) 177.8 Current Weight (lbs) 157 lb Weight (Calculated Kilograms) 71.2 Weight (Calculated Grams) 38760.0 [place] Body Weight 166 Body Mass Index (BMI) 22.5 Weight Status Approriate GI Symptoms GI Symptoms None Last BM pt has ileostomy Difficult in: None Usual diet at home fibersource HN 1.2 80ml/hr x 21hr at care facility per chart, providing 2016kcal and 93g protein. Skin Integrity/Comment: ileostomy site red Estimated Nutritional Goals BEE in Kcals: Using Current wt Calories/Kcals/Kg 25-30 Kcals Calculated 9600-7958 Protein: Using Current wt Protein g/k-1.2 Protein Calculated 71-85 Fluid: ml 1775-2130ml (1ml/kcal) Nutritional Problem 2. Problem Problem increased nutrition needs Etiology increased metabolic demand Signs/Symptoms: dx of sepsis 1. Problem Problem altered nutrition related labs Etiology electrolytes/fluid imbalance Signs/Symptoms: Na 135, BUN 38 Malnutrition Alert Is there a minimum of two criteria No selected? Query Text:Check all the applicable criteria. A minimum of two criteria are recommended for diagnosis of either severe or non-severe malnutrition. Malnutrition Related to Morbid Obesity Malnutrition related to morbid obesity No Intervention/Recommendation Comments 1. Monitor NPO status. Will evaluate nutrition intake once nutrition support initiated. 2. Monitor wt, labs and skin integrity 3. F/U as high risk in 2-3 days, 02/04-02/05 Expected Outcomes/Goals Expected Outcomes/Goals 1. Pt to meet at least 75% of nutritional needs via nutrition support with tolerance 2. Wt stability, skin to remain intact, labs to approach WNL.
[2018-02-06] MEDS: ONFI GT SCH ×2 (12:00→16:45)
--- NOTE | 2018-02-06 13:39 | General Progress Note ---
Subjective - Review of Systems Service Date: 02/06/18 Events since last encounter: labs ok tolerating GT feedings loose stool in colostomy bag Objective - Results Result Diagrams: 02/06/18 06:10 02/06/18 07:15 Recent Labs: Laboratory Last Values WBC 13.0 Th/cmm (4.8-10.8) H 02/06/18 06:10 RBC 2.73 Mil/cmm (4.30-5.70) L 02/06/18 06:10 Hgb 9.4 gm/dL (12-16) L 02/06/18 06:10 Hct 26.6 % (41.0-60) L 02/06/18 06:10 MCV 97.6 fl (80-99) 02/06/18 06:10 MCH 34.4 pg (26.0-30.0) H 02/06/18 06:10 MCHC Differential 35.3 pg (28.0-36.0) 02/06/18 06:10 RDW 16.0 % (11.5-20.0) 02/06/18 06:10 Plt Count 347 Th/cmm (150-400) 02/06/18 06:10 MPV 7.0 fl 02/06/18 06:10 Add Manual Diff YES 02/05/18 07:45 Neutrophils % 61.8 % (40.0-80.0) 02/06/18 06:10 Lymphocytes % 10.8 % (20.0-50.0) L 02/06/18 06:10 Monocytes % 14.9 % (2.0-10.0) H 02/06/18 06:10 Eosinophils % 10.3 % (0.0-5.0) H 02/06/18 06:10 Basophils % 2.2 % (0.0-2.0) H 02/06/18 06:10 Neutrophils (Manual) 87 % (40-80) H 02/05/18 07:45 Lymphocytes 8 % (20-50) L 02/05/18 07:45 Monocytes 4 % (2-10) 02/05/18 07:45 Basophils 1 % (0-3) 02/05/18 07:45 Platelet Estimate INCREASED PLATELETS (NORMAL) 02/05/18 07:45 PT 10.3 SECONDS (9.5-11.5) 02/04/18 08:10 INR 0.99 (0.5-1.4) 02/04/18 08:10 Sodium 136 mEq/L (136-145) 02/06/18 07:15 Potassium 4.0 mEq/L (3.5-5.1) 02/06/18 07:15 Chloride 107 mEq/L (98-107) 02/06/18 07:15 Carbon Dioxide 25.0 mEq/L (21.0-31.0) 02/06/18 07:15 Anion Gap 8.0 (7.0-16.0) 02/06/18 07:15 BUN 12 mg/dL (7-25) 02/06/18 07:15 Creatinine 0.6 mg/dL (0.7-1.3) L 02/06/18 07:15 Est GFR ( Amer) > 60.0 ml/min (>90) 02/06/18 07:15 Est GFR (Non-Af Amer) > 60.0 ml/min 02/06/18 07:15 BUN/Creatinine Ratio 20.0 02/06/18 07:15 Glucose 136 mg/dL (70-105) H 02/06/18 07:15 POC Glucose 116 MG/DL (70-105) H 02/06/18 12:16 Hemoglobin A1c % 5.7 % (4.0-6.0) 02/04/18 06:35 Whole Bld Lactic Acid 0.80 mmol/L (0.60-1.99) 02/01/18 13:39 Calcium 8.0 mg/dL (8.6-10.3) L 02/06/18 07:15 Phosphorus 2.1 mg/dL (2.5-5.0) L 02/06/18 07:15 Magnesium 1.9 mg/dL (1.9-2.7) 02/06/18 07:15 Total Bilirubin 0.3 mg/dL (0.3-1.0) 02/06/18 07:15 AST 22 U/L (13-39) 02/06/18 07:15 ALT 39 U/L (7-52) 02/06/18 07:15 Alkaline Phosphatase 107 U/L (34-104) H 02/06/18 07:15 Total Protein 5.2 gm/dL (6.0-8.3) L 02/06/18 07:15 Albumin 2.7 gm/dL (4.2-5.5) L 02/06/18 07:15 Globulin 2.5 gm/dL 02/06/18 07:15 Albumin/Globulin Ratio 1.1 (1.0-1.8) 02/06/18 07:15 Prealbumin 38 mg/dL (10-36) H 02/02/18 05:05 Triglycerides 178 mg/dL (<150) H 02/02/18 05:05 Cholesterol 125 mg/dL (<200) 02/02/18 05:05 TSH 0.27 uIU/ml (0.34-5.60) L 02/01/18 13:39 Urine Source CATH 02/01/18 14:14 Urine Color YELLOW 02/01/18 14:14 Urine Clarity HAZY (CLEAR) 02/01/18 14:14 Urine pH 6.0 (4.6 - 8.0) 02/01/18 14:14 Ur Specific [place] 1.020 (1.005-1.030) 02/01/18 14:14 Urine Protein TRACE mg/dL (NEGATIVE) 02/01/18 14:14 Urine Glucose (UA) NEGATIVE mg/dL (NEGATIVE) 02/01/18 14:14 Urine Ketones NEGATIVE mg/dL (NEGATIVE) 02/01/18 14:14 Urine Blood LARGE (NEGATIVE) H 02/01/18 14:14 Urine Nitrate POSITIVE (NEGATIVE) H 02/01/18 14:14 Urine Bilirubin NEGATIVE (NEGATIVE) 02/01/18 14:14 Urine Urobilinogen 0.2 E.U./dL (0.2 - 1.0) 02/01/18 14:14 Ur Leukocyte Esterase MODERATE (NEGATIVE) H 02/01/18 14:14 Urine RBC 10-25 /hpf (0-5) H 02/01/18 14:14 Urine WBC 6-10 /hpf (0-5) 02/01/18 14:14 Ur Epithelial Cells FEW /lpf (FEW) 02/01/18 14:14 Urine Bacteria MANY /hpf (NONE SEEN) H 02/01/18 14:14 Urine Mucus FEW /lpf (FEW) 02/01/18 14:14 - Physical Exam Vitals and I&O: Vital Signs Temp 97.2 F 02/06/18 04:00 Pulse 72 02/06/18 06:51 Resp 18 02/06/18 06:51 BP 108/57 02/06/18 06:00 Pulse Ox 100 02/06/18 06:51 Intake & Output 02/05/18 02/06/18 02/06/18 18:59 06:59 18:59 Intake Total 2002 310 200 Output Total 1120 1000 Balance 883 310 -800 Weight (lbs) 72.291 kg 72.121 kg Intake: Intake, IV Amount 1443 310 D5-0.9%Ns 1,000 ml @ 20 13 mls/hr IV .Q24H [facility] Rx#: [id number] Levetiracetam 1,000 mg In 110 110 Sodium Chloride 0.9% 100 ml @ 400 mls/hr IV Q12H [facility] Rx#:[id number] Multivitamin Inj 10 ml In 1220 Dextrose 70% 805 ml In Amino Acids 8.5% 500 ml In Intralipids 20% 125 ml @ 60 mls/hr IV .Q24H [facility] Rx#:[id number] Piperacillin Sodium/ 100 200 Tazobact 4.5 gm In Sodium Chloride 0.9% 100 ml @ 100 mls/hr IV Q8HR [facility] Rx #:[id number] Tube Feeding 210 Other 350 200 Output: Urine 1050 800 Stool 0 Other 70 200 Other: # Bowel Movements 0 Stool Characteristics Liquid Liquid Weight Source Bedscale Bedscale Active Medications: Current Medications Acetaminophen (Tylenol 650mg/20.3ml Suspension) 650 mg GT Q6HR PRN PRN Reason: Pain or Fever >101 Stop: 04/02/18 15:34 Albuterol Sulfate (Albuterol 2.5mg/3ml Neb Ud) 2.5 mg HHN Q4HRT PRN PRN Reason: Respiratory Distress Stop: 04/02/18 15:20 Benztropine Mesylate (Cogentin) 1 mg GT BID [facility] Stop: 04/02/18 16:59 Last Admin: 02/06/18 09:30 Dose: 1 mg Chlorhexidine Gluconate (Peridex) 15 ml MM HS [facility] Stop: 04/02/18 20:59 Last Admin: 02/05/18 21:08 Dose: 15 ml Clonazepam (Klonopin) 1 mg GT BID [facility] Stop: 04/02/18 16:59 Last Admin: 02/06/18 09:30 Dose: 1 mg Escitalopram Oxalate (Lexapro) 20 mg GT DAILY [facility]; Protocol Stop: 04/03/18 08:59 Last Admin: 02/06/18 09:29 Dose: 20 mg Finasteride (Proscar) 5 mg GT DAILY [facility]; Protocol Stop: 04/03/18 08:59 Last Admin: 02/06/18 09:29 Dose: 5 mg Fluticasone Propionate (Flonase) 2 spr NS DAILY [facility] Stop: 04/03/18 08:59 Last Admin: 02/06/18 10:07 Dose: 2 spr Levetiracetam 1,000 mg/ Sodium (Chloride) 110 mls @ 400 mls/hr IV Q12H [facility] Stop: 04/02/18 15:29 Last Infusion: 02/06/18 04:40 Dose: Infused Piperacillin Sod/Tazobactam (Sod 4.5 gm/ Sodium Chloride) 100 mls @ 100 mls/hr IV Q8HR [facility] Stop: 04/02/18 20:59 Last Infusion: 02/06/18 06:45 Dose: Infused Multivitamins/Minerals 10 ml/Dextrose/ Amino Acids/Electrolytes/ Fat Emulsion Intravenous 1,440 mls @ 60 mls/hr IV .Q24H [facility] Stop: 03/04/18 15:59 Last Admin: 02/05/18 15:43 Dose: 60 mls/hr Sodium Chloride (Nacl 0.9%) 500 mls @ 20 mls/hr IV .Q24H [facility] Stop: 04/07/18 09:14 Last Admin: 02/06/18 09:45 Dose: 20 mls/hr Sodium Phosphate 21 mmole/ (Sodium Chloride) 257 mls @ 42.833 mls/hr IV ONCE ONE Stop: 02/06/18 15:29 Last Admin: 02/06/18 09:49 Dose: 42.833 mls/hr Ibuprofen (Motrin) 600 mg GT Q6H PRN PRN Reason: BACK PAIN Stop: 04/02/18 15:20 Insulin Aspart (Novolog Insulin Sliding Scale) 0 units SUBQ Q6H [facility]; Protocol Stop: 04/06/18 00:00 Last Admin: 02/06/18 05:43 Dose: Not Given Ipratropium [place] (Atrovent Neb 0.5mg/2.5ml) 0.5 mg HHN BIDRT [facility] Stop: 04/02/18 18:59 Last Admin: 02/06/18 06:51 Dose: 0.5 mg Lamotrigine (Lamictal) 200 mg GT DAILY [facility] Stop: 04/03/18 08:59 Last Admin: 02/06/18 09:29 Dose: 200 mg Lamotrigine (Lamictal) 350 mg GT HS [facility] Stop: 04/02/18 20:59 Last Admin: 02/05/18 21:09 Dose: 350 mg Latanoprost (Xalatan 0.005% Ophth Soln) 1 drop EACH EYE HS [facility] Stop: 04/03/18 20:59 Last Admin: 02/05/18 21:09 Dose: 1 drop Levothyroxine Sodium (Synthroid) 0.125 mg GT QDAC [facility] Stop: 04/03/18 09:59 Last Admin: 02/06/18 09:30 Dose: 0.125 mg Lorazepam (Ativan) 1 mg GT BID PRN; Protocol PRN Reason: Agitation Stop: 04/02/18 15:20 Last Admin: 02/02/18 13:03 Dose: 1 mg Methotrexate (Methotrexate) 10 mg PO QWEEK 0730 [facility]; Protocol Stop: 04/04/18 07:29 Last Admin: 02/03/18 06:43 Dose: 10 mg Miscellaneous (Tpn Per Pharmacy) 1 ea MC PRN PRN PRN Reason: PROTOCOL Stop: 04/02/18 14:33 Pt Own Med.- Onfi ( Clobazam 20mg Tablet ) 1 GT BID [facility] Stop: 04/02/18 16:59 Last Admin: 02/06/18 12:00 Dose: 1 Patient Own Med- Aptiom ( Eslicarbazepine 600mg Tablet) 1 GT 1600 [facility] Stop: 04/02/18 15:59 Last Admin: 02/05/18 15:50 Dose: 1 Petrolatum (Vaseline Oint) 1 appl TP BID [facility] Stop: 04/02/18 16:59 Last Admin: 02/06/18 09:31 Dose: 1 appl Petrolatum (Zinc Oxide) 1 appl TP QSHIFT [facility] Stop: 04/02/18 19:59 Last Admin: 02/06/18 09:32 Dose: 1 appl Quetiapine Fumarate (Seroquel) 25 mg GT BID [facility]; Protocol Stop: 04/02/18 16:59 Last Admin: 02/06/18 09:30 Dose: 25 mg Rifaximin (Xifaxan) 600 mg GT BID [facility] Stop: 04/02/18 16:59 Last Admin: 02/06/18 09:30 Dose: 600 mg Sodium Chloride (Manati Nasal [place]) 1 spr NS QID [facility] Stop: 04/02/18 16:59 Last Admin: 02/06/18 10:08 Dose: 1 spr Tamsulosin HCl (Flomax) 0.4 mg GT HS [facility] Stop: 04/02/18 20:59 Last Admin: 02/05/18 21:08 Dose: 0.4 mg Tolnaftate (Tinactin 1% Cream) 1 appl TP DAILY [facility] Stop: 04/05/18 17:59 Last Admin: 02/06/18 09:30 Dose: 1 appl - Procedures Procedures: Procedures Procedure Code Date BYPASS ILEUM TO CUTANEOUS, OPEN APPROACH [id number] 02/01/18 CHANGE FEEDING DEVICE IN UP INTEST TRACT, SCRAP WORKER APPROACH [id number] 11/24/17 CHANGE GASTROSTOMY TUBE 15975 11/01/17 DRAINAGE OF SMALL INTESTINE, OPEN APPROACH [id number] 11/01/17 EXPLORATION OF ABDOMEN 26150 11/01/17 FREEING OF BOWEL ADHESION 57323 11/01/17 ILEOSTOMY/JEJUNOSTOMY 81540 09/23/17 INSERTION OF ENDOTRACHEAL AIRWAY INTO TRACHEA, VIA OPENING [id number] 09/23/17 INSERTION OF FEEDING DEVICE INTO STOMACH, OPEN APPROACH [id number] 09/23/17 INTRODUCTION OF NUTRITIONAL INTO CENTRAL VEIN, PERC APPROACH [id number] 09/23/17 PARTIAL REMOVAL OF COLON 53014 09/23/[address] PLACE GASTROSTOMY TUBE 88023 09/23/17 RELEASE OMENTUM, OPEN APPROACH [id number] 02/01/18 RELEASE PERITONEUM, OPEN APPROACH [id number] 09/23/17 RELEASE SMALL INTESTINE, OPEN APPROACH [id number] 11/01/17 REPAIR SMALL INTESTINE, OPEN APPROACH [id number] 11/01/17 REPOSITION ILEUM, OPEN APPROACH [id number] 02/01/18 RESECTION OF LARGE INTESTINE, OPEN APPROACH [id number] 09/23/17 RESPIRATORY VENTILATION, LESS THAN 24 CONSECUTIVE HOURS [id number] 09/23/17 SUTURE SMALL INTESTINE 55101 11/01/17 Assessment/Plan - Problem List Patient Problems: All Active Problems RED SWOLLEN RASH AROUND STOMA SITE (Acute) Nutritional Asmnt/Malnutr-PDOC - Dietary Evaluation Malnutrition Findings (Please click <Entered> for more info): Nutritional Asmnt/Malnutrition Start: 02/02/18 17: 36 Text: Status: Complete Freq: Protocol: Document 02/02/18 17:36 ELGIN (Rec: 02/02/18 17:54 ELGIN [facility]) Nutritional Asmnt/Malnutrition Patient General Information Nutritional Screening High Risk Consult Diagnosis sepsis, abd cellulitis Pertinent Medical Hx/Surgical Hx hypothyroid, seizure, ileostomy for megacolon, Gtube , MR, CP, colectomy with ileostomy, generalized contractures Subjective Information Consult received for moisture associated wound at ileostomy site. Pt seen sleeping in bed at time of visit. TPN ordered per EMR. Waiting for PICC line consent. Current Diet Order/ Nutrition Support NPO Pertinent Medications D5-0.9%ns, synthroid, theragran, zinc, piperacillin, seroquel Pertinent Labs 02/02 Na 135, BUN 38, glucose 89, Mg 1.7, alb 3.2 Nutritional Hx/Data Height 1.78 m Height (Calculated Centimeters) 177.8 Current Weight (lbs) 71.214 kg Weight (Calculated Kilograms) 71.2 Weight (Calculated Grams) 58276.0 Alexis Body Weight 166 Body Mass Index (BMI) 22.5 Weight Status Approriate GI Symptoms GI Symptoms None Last BM pt has ileostomy Difficult in: None Usual diet at home fibersource HN 1.2 80ml/hr x 21hr at care facility per chart, providing 2016kcal and 93g protein. Skin Integrity/Comment: ileostomy site red Estimated Nutritional Goals BEE in Kcals: Using Current wt Calories/Kcals/Kg 25-30 Kcals Calculated 8126-8800 Protein: Using Current wt Protein g/k-1.2 Protein Calculated 71-85 Fluid: ml 1775-2130ml (1ml/kcal) Nutritional Problem 2. Problem Problem increased nutrition needs Etiology increased metabolic demand Signs/Symptoms: dx of sepsis 1. Problem Problem altered nutrition related labs Etiology electrolytes/fluid imbalance Signs/Symptoms: Na 135, BUN 38 Malnutrition Alert Is there a minimum of two criteria No selected? Query Text:Check all the applicable criteria. A minimum of two criteria are recommended for diagnosis of either severe or non-severe malnutrition. Malnutrition Related to Morbid Obesity Malnutrition related to morbid obesity No Intervention/Recommendation Comments 1. Monitor NPO status. Will evaluate nutrition intake once nutrition support initiated. 2. Monitor wt, labs and skin integrity 3. F/U as high risk in 2-3 days, 02/04-02/05 Expected Outcomes/Goals Expected Outcomes/Goals 1. Pt to meet at least 75% of nutritional needs via nutrition support with tolerance 2. Wt stability, skin to remain intact, labs to approach WNL.
[2018-02-06] MEDS: TPN 8.5%-70% CUSTOM IV SCH (16:29)
[2018-02-06] MEDS: APTIOM GT SCH (16:31)
[2018-02-06] MEDS: Chlorhexidine Gluconate 0.12% 480mL Bottle MM SCH (23:05)
[2018-02-07] MEDS: INSULIN ASPART SLIDING SCALE 100 UNITS/ML UNIT SUBQ SCH ×2 (05:40→11:24)
[2018-02-07] MEDS: Ipratropium Neb 0.5 mg/2.5 mL UD HHN SCH (06:03)
[2018-02-07 06:40] LABS: % BASOPHILS 0.6 % (0.0-2.0); % EOSINOPHILS 10.6 % (0.0-5.0); % LYMPHOCYTES 17.9 % (20.0-50.0); % MONOCYTES 9.1 % (2.0-10.0); % NEUTROPHILS 61.8 % (40.0-80.0); BASOPHILE ABSOLUTE 0.1 Th/cumm (0-0.2); EOSINOPHILE ABSOLUTE 1.2 Th/cmm (0.1-0.4); HEMATOCRIT 25.4 % (41.0-60); HEMOGLOBIN 8.6 gm/dL (12-16); MEAN CELL VOLUME 96.5 fl (80-99); MEAN CORPUSCULAR HEMOGLOBIN 32.7 pg (26.0-30.0); MEAN CORPUSCULAR HGB CONC 33.8 pg (28.0-36.0); MEAN PLATELET VOLUME 6.3 fl; NEUTROPHILE ABSOLUTE 6.7 Th/cmm (1.8-8.0); PLATELET COUNT 374 Th/cmm (150-400); RED BLOOD COUNT 2.64 Mil/cmm (4.30-5.70); RED CELL DISTRIBUTION WIDTH 15.6 % (11.5-20.0)
[2018-02-07 07:06] LABS: ALB/GLOB RATIO 1.1 (1.0-1.8); ALBUMIN 2.5 gm/dL (4.2-5.5); ALKALINE PHOSPHATASE 82 U/L (34-104); ANION GAP 8.1 (7.0-16.0); BILIRUBIN,TOTAL 0.2 mg/dL (0.3-1.0); BUN - UREA NITROGEN 16 mg/dL (7-25); CALCIUM SERUM 7.9 mg/dL (8.6-10.3); CARBON DIOXIDE 24.5 mEq/L (21.0-31.0); CHLORIDE 109 mEq/L (98-107); CREATININE - SERUM 0.6 mg/dL (0.7-1.3); GFR AFRICAN-AMERICAN > 60.0 ml/min (>90); GFR NON AFRICAN-AMERICAN > 60.0 ml/min; GLUCOSE 143 mg/dL (70-105); MAGNESIUM 1.8 mg/dL (1.9-2.7); POTASSIUM SERUM 3.6 mEq/L (3.5-5.1); SGOT 16 U/L (13-39); SGPT/ALT 27 U/L (7-52); SODIUM SERUM 138 mEq/L (136-145); TOTAL PROTEIN,SERUM 4.8 gm/dL (6.0-8.3)
[2018-02-07] MEDS: Benztropine 1 MG TAB GT SCH (08:27)
[2018-02-07] MEDS: ONFI GT SCH (08:27)
[2018-02-07] MEDS: Levothyroxine 0.125 Mg Tab GT SCH (08:28)
[2018-02-07] MEDS: Zinc Oxide Ointment 60 gm TP SCH (08:29)
[2018-02-07] MEDS: Saline 0.65% Nasal Spray NS SCH ×2 (08:29→12:01)
[2018-02-07] MEDS: Petrolatum (White) Oint 0.6 Oz Tube TP SCH (08:29)
[2018-02-07] MEDS: Fluticasone Propionate Nasal 1 SPR SPR NS SCH (08:30)
[2018-02-07] MEDS: Sodium Chloride 0.9% 500 ML IV SCH (08:31)
--- NOTE | 2018-02-07 13:18 | General Progress Note ---
Subjective - Review of Systems Service Date: 02/07/18 Events since last encounter: labs ok dressings dry, tolerating GT at 50 cc per hour increase to 60 Objective - Results Result Diagrams: 02/07/18 06:26 02/07/18 06:26 Recent Labs: Laboratory Last Values WBC 11.0 Th/cmm (4.8-10.8) H 02/07/18 06:26 RBC 2.64 Mil/cmm (4.30-5.70) L 02/07/18 06:26 Hgb 8.6 gm/dL (12-16) L 02/07/18 06:26 Hct 25.4 % (41.0-60) L 02/07/18 06:26 MCV 96.5 fl (80-99) 02/07/18 06:26 MCH 32.7 pg (26.0-30.0) H 02/07/18 06:26 MCHC Differential 33.8 pg (28.0-36.0) 02/07/18 06:26 RDW 15.6 % (11.5-20.0) 02/07/18 06:26 Plt Count 374 Th/cmm (150-400) 02/07/18 06:26 MPV 6.3 fl 02/07/18 06:26 Add Manual Diff YES 02/05/18 07:45 Neutrophils % 61.8 % (40.0-80.0) 02/07/18 06:26 Lymphocytes % 17.9 % (20.0-50.0) L 02/07/18 06:26 Monocytes % 9.1 % (2.0-10.0) 02/07/18 06:26 Eosinophils % 10.6 % (0.0-5.0) H 02/07/18 06:26 Basophils % 0.6 % (0.0-2.0) 02/07/18 06:26 Neutrophils (Manual) 87 % (40-80) H 02/05/18 07:45 Lymphocytes 8 % (20-50) L 02/05/18 07:45 Monocytes 4 % (2-10) 02/05/18 07:45 Basophils 1 % (0-3) 02/05/18 07:45 Platelet Estimate INCREASED PLATELETS (NORMAL) 02/05/18 07:45 PT 10.3 SECONDS (9.5-11.5) 02/04/18 08:10 INR 0.99 (0.5-1.4) 02/04/18 08:10 Sodium 138 mEq/L (136-145) 02/07/18 06:26 Potassium 3.6 mEq/L (3.5-5.1) 02/07/18 06:26 Chloride 109 mEq/L (98-107) H 02/07/18 06:26 Carbon Dioxide 24.5 mEq/L (21.0-31.0) 02/07/18 06:26 Anion Gap 8.1 (7.0-16.0) 02/07/18 06:26 BUN 16 mg/dL (7-25) 02/07/18 06:26 Creatinine 0.6 mg/dL (0.7-1.3) L 02/07/18 06:26 Est GFR ( Amer) > 60.0 ml/min (>90) 02/07/18 06:26 Est GFR (Non-Af Amer) > 60.0 ml/min 02/07/18 06:26 BUN/Creatinine Ratio 26.7 02/07/18 06:26 Glucose 143 mg/dL (70-105) H 02/07/18 06:26 POC Glucose 105 MG/DL (70 - 105) 02/07/18 11:10 Hemoglobin A1c % 5.7 % (4.0-6.0) 02/04/18 06:35 Whole Bld Lactic Acid 0.80 mmol/L (0.60-1.99) 02/01/18 13:39 Calcium 7.9 mg/dL (8.6-10.3) L 02/07/18 06:26 Phosphorus 2.9 mg/dL (2.5-5.0) 02/07/18 06:26 Magnesium 1.8 mg/dL (1.9-2.7) L 02/07/18 06:26 Total Bilirubin 0.2 mg/dL (0.3-1.0) L 02/07/18 06:26 AST 16 U/L (13-39) 02/07/18 06:26 ALT 27 U/L (7-52) 02/07/18 06:26 Alkaline Phosphatase 82 U/L (34-104) 02/07/18 06:26 Total Protein 4.8 gm/dL (6.0-8.3) L 02/07/18 06:26 Albumin 2.5 gm/dL (4.2-5.5) L 02/07/18 06:26 Globulin 2.3 gm/dL 02/07/18 06:26 Albumin/Globulin Ratio 1.1 (1.0-1.8) 02/07/18 06:26 Prealbumin 38 mg/dL (10-36) H 02/02/18 05:05 Triglycerides 144 mg/dL (<150) 02/07/18 06:26 Cholesterol 125 mg/dL (<200) 02/02/18 05:05 TSH 0.27 uIU/ml (0.34-5.60) L 02/01/18 13:39 Urine Source CATH 02/01/18 14:14 Urine Color YELLOW 02/01/18 14:14 Urine Clarity HAZY (CLEAR) 02/01/18 14:14 Urine pH 6.0 (4.6 - 8.0) 02/01/18 14:14 Ur Specific [place] 1.020 (1.005-1.030) 02/01/18 14:14 Urine Protein TRACE mg/dL (NEGATIVE) 02/01/18 14:14 Urine Glucose (UA) NEGATIVE mg/dL (NEGATIVE) 02/01/18 14:14 Urine Ketones NEGATIVE mg/dL (NEGATIVE) 02/01/18 14:14 Urine Blood LARGE (NEGATIVE) H 02/01/18 14:14 Urine Nitrate POSITIVE (NEGATIVE) H 02/01/18 14:14 Urine Bilirubin NEGATIVE (NEGATIVE) 02/01/18 14:14 Urine Urobilinogen 0.2 E.U./dL (0.2 - 1.0) 02/01/18 14:14 Ur Leukocyte Esterase MODERATE (NEGATIVE) H 02/01/18 14:14 Urine RBC 10-25 /hpf (0-5) H 02/01/18 14:14 Urine WBC 6-10 /hpf (0-5) 02/01/18 14:14 Ur Epithelial Cells FEW /lpf (FEW) 02/01/18 14:14 Urine Bacteria MANY /hpf (NONE SEEN) H 02/01/18 14:14 Urine Mucus FEW /lpf (FEW) 02/01/18 14:14 - Physical Exam Vitals and I&O: Vital Signs Temp 97.4 F 02/07/18 11:58 Pulse 70 02/07/18 11:58 Resp 17 02/07/18 11:58 BP 99/57 02/07/18 11:58 Pulse Ox 95 02/07/18 11:58 Intake & Output 02/06/18 02/07/18 02/07/18 18:59 06:59 18:59 Intake Total 2490 560 455.333 Output Total 1950 850 Balance 540 -290 455.333 Weight (lbs) 72.121 kg 75.75 kg Intake: Intake, IV Amount 1650 200 455.333 Levetiracetam 1,000 mg In 110 Sodium Chloride 0.9% 100 ml @ 400 mls/hr IV Q12H [facility] Rx#:[id number] Multivitamin Inj 10 ml In 1440 Dextrose 70% 805 ml In Amino Acids 8.5% 500 ml In Intralipids 20% 125 ml @ 60 mls/hr IV .Q24H [facility] Rx#:[id number] Piperacillin Sodium/ 100 200 Tazobact 4.5 gm In Sodium Chloride 0.9% 100 ml @ 100 mls/hr IV Q8HR [facility] Rx #:[id number] Sodium Chloride 0.9% 500 455.333 ml @ 20 mls/hr IV .Q24H [facility] Rx#:[id number] Oral 340 Tube Feeding 360 TPN/PPN 300 Other 200 Output: Urine 1475 700 Stool 75 150 Other 400 Other: Stool Characteristics Liquid Liquid Brown Weight Source Bedscale Bedscale Active Medications: Current Medications Acetaminophen (Tylenol 650mg/20.3ml Suspension) 650 mg GT Q6HR PRN PRN Reason: Pain or Fever >101 Stop: 04/02/18 15:34 Last Admin: 02/07/18 00:58 Dose: 650 mg Albuterol Sulfate (Albuterol 2.5mg/3ml Neb Ud) 2.5 mg HHN Q4HRT PRN PRN Reason: Respiratory Distress Stop: 04/02/18 15:20 Benztropine Mesylate (Cogentin) 1 mg GT BID [facility] Stop: 04/02/18 16:59 Last Admin: 02/07/18 08:27 Dose: 1 mg Chlorhexidine Gluconate (Peridex) 15 ml MM HS [facility] Stop: 04/02/18 20:59 Last Admin: 02/06/18 23:05 Dose: Not Given Clonazepam (Klonopin) 1 mg GT BID [facility] Stop: 04/02/18 16:59 Last Admin: 02/07/18 08:28 Dose: 1 mg Escitalopram Oxalate (Lexapro) 20 mg GT DAILY [facility]; Protocol Stop: 04/03/18 08:59 Last Admin: 02/07/18 08:28 Dose: 20 mg Finasteride (Proscar) 5 mg GT DAILY [facility]; Protocol Stop: 04/03/18 08:59 Last Admin: 02/07/18 08:28 Dose: 5 mg Fluticasone Propionate (Flonase) 2 spr NS DAILY [facility] Stop: 04/03/18 08:59 Last Admin: 02/07/18 08:30 Dose: 2 spr Levetiracetam 1,000 mg/ Sodium (Chloride) 110 mls @ 400 mls/hr IV Q12H [facility] Stop: 04/02/18 15:29 Last Admin: 02/07/18 03:36 Dose: 400 mls/hr Piperacillin Sod/Tazobactam (Sod 4.5 gm/ Sodium Chloride) 100 mls @ 100 mls/hr IV Q8HR [facility] Stop: 04/02/18 20:59 Last Admin: 02/07/18 12:01 Dose: 100 mls/hr Multivitamins/Minerals 10 ml/Dextrose/ Amino Acids/Electrolytes/ Fat Emulsion Intravenous 1,440 mls @ 60 mls/hr IV .Q24H [facility] Stop: 03/04/18 15:59 Last Admin: 02/06/18 16:29 Dose: 60 mls/hr Sodium Chloride (Nacl 0.9%) 500 mls @ 20 mls/hr IV .Q24H [facility] Stop: 04/07/18 09:14 Last Admin: 02/07/18 08:31 Dose: 20 mls/hr Ibuprofen (Motrin) 600 mg GT Q6H PRN PRN Reason: BACK PAIN Stop: 04/02/18 15:20 Insulin Aspart (Novolog Insulin Sliding Scale) 0 units SUBQ Q6H [facility]; Protocol Stop: 04/06/18 00:00 Last Admin: 02/07/18 11:24 Dose: Not Given Ipratropium Crane (Atrovent Neb 0.5mg/2.5ml) 0.5 mg HHN BIDRT [facility] Stop: 04/02/18 18:59 Last Admin: 08/04/18 06:03 Dose: 0.5 mg Lamotrigine (Lamictal) 200 mg GT DAILY [facility] Stop: 04/03/18 08:59 Last Admin: 02/07/18 08:28 Dose: 200 mg Lamotrigine (Lamictal) 350 mg GT HS [facility] Stop: 04/02/18 20:59 Last Admin: 02/06/18 22:36 Dose: 350 mg Latanoprost (Xalatan 0.005% Oph Soln) 1 drop EACH EYE HS [facility] Stop: 04/03/18 20:59 Last Admin: 02/06/18 22:43 Dose: 1 drop Levothyroxine Sodium (Synthroid) 0.125 mg GT QDAC [facility] Stop: 04/03/18 09:59 Last Admin: 02/07/18 08:28 Dose: 0.125 mg Lorazepam (Ativan) 1 mg GT BID PRN; Protocol PRN Reason: Agitation Stop: 04/02/18 15:20 Last Admin: 02/02/18 13:03 Dose: 1 mg Methotrexate (Methotrexate) 10 mg PO QWEEK 729 [facility]; Protocol Stop: 04/04/18 07:29 Last Admin: 02/03/18 06:43 Dose: 10 mg Miscellaneous (Tpn Per Pharmacy) 1 ea MC PRN PRN PRN Reason: PROTOCOL Stop: 04/02/18 14:33 Pt Own Med.- Onfi ( Clobazam 20mg Tablet ) 1 GT BID [facility] Stop: 04/02/18 16:59 Last Admin: 02/07/18 08:27 Dose: 1 Patient Own Med- Aptiom ( Eslicarbazepine 600mg Tablet) 1 GT 1600 [facility] Stop: 04/02/18 15:59 Last Admin: 02/06/18 16:31 Dose: 1 Petrolatum (Vaseline Oint) 1 appl TP BID [facility] Stop: 04/02/18 16:59 Last Admin: 02/07/18 08:29 Dose: 1 appl Petrolatum (Zinc Oxide) 1 appl TP QSHIFT [facility] Stop: 04/02/18 19:59 Last Admin: 02/07/18 08:29 Dose: 1 appl Quetiapine Fumarate (Seroquel) 25 mg GT BID [facility]; Protocol Stop: 04/02/18 16:59 Last Admin: 02/07/18 08:28 Dose: 25 mg Rifaximin (Xifaxan) 600 mg GT BID [facility] Stop: 04/02/18 16:59 Last Admin: 02/07/18 08:28 Dose: 600 mg Sodium Chloride ([place] Nasal [place]) 1 spr NS QID [facility] Stop: 04/02/18 16:59 Last Admin: 02/07/18 12:01 Dose: 1 spr Tamsulosin HCl (Flomax) 0.4 mg GT HS [facility] Stop: 04/02/18 20:59 Last Admin: 02/06/18 22:28 Dose: 0.4 mg Tolnaftate (Tinactin 1% Cream) 1 appl TP DAILY [facility] Stop: 04/05/18 17:59 Last Admin: 02/07/18 08:30 Dose: 1 appl - Procedures Procedures: Procedures Procedure Code Date BYPASS ILEUM TO CUTANEOUS, OPEN APPROACH [id number] 02/01/18 CHANGE FEEDING DEVICE IN UP INTEST TRACT, FIRST COAT SANDER APPROACH [id number] 11/24/17 CHANGE GASTROSTOMY TUBE 80448 11/01/17 DRAINAGE OF SMALL INTESTINE, OPEN APPROACH [id number] 11/01/17 EXPLORATION OF ABDOMEN 38410 11/01/17 FREEING OF BOWEL ADHESION 81465 11/01/17 ILEOSTOMY/JEJUNOSTOMY 82482 09/23/17 INSERTION OF ENDOTRACHEAL AIRWAY INTO TRACHEA, VIA OPENING [id number] 09/23/17 INSERTION OF FEEDING DEVICE INTO STOMACH, OPEN APPROACH 6NV80AS 09/23/17 INTRODUCTION OF NUTRITIONAL INTO CENTRAL VEIN, PERC APPROACH [id number] 09/23/17 PARTIAL REMOVAL OF COLON 90318 09/23/17 PLACE GASTROSTOMY TUBE 38679 09/23/17 RELEASE OMENTUM, OPEN APPROACH [id number] 02/01/18 RELEASE PERITONEUM, OPEN APPROACH [id number] 09/23/17 RELEASE SMALL INTESTINE, OPEN APPROACH 1HO56NE 11/01/17 REPAIR SMALL INTESTINE, OPEN APPROACH 0IF09ZJ 11/01/17 REPOSITION ILEUM, OPEN APPROACH 2ZDR3PE 02/01/18 RESECTION OF LARGE INTESTINE, OPEN APPROACH [id number] 09/23/17 RESPIRATORY VENTILATION, LESS THAN 24 CONSECUTIVE HOURS [id number] 09/23/17 SUTURE SMALL INTESTINE 11308 11/01/17 Assessment/Plan - Problem List Patient Problems: All Active Problems RED SWOLLEN RASH AROUND STOMA SITE (Acute) Nutritional Asmnt/Malnutr-PDOC - Dietary Evaluation Malnutrition Findings (Please click <Entered> for more info): Nutritional Asmnt/Malnutrition Start: 02/02/18 17: 36 Text: Status: Complete Freq: Protocol: Document 02/02/18 17:36 [email or web address] (Rec: 02/02/18 17:54 [email or web address] [email or web address]) Nutritional Asmnt/Malnutrition Patient General Information Nutritional Screening High Risk Consult Diagnosis sepsis, abd cellulitis Pertinent Medical Hx/Surgical Hx hypothyroid, seizure, ileostomy for megacolon, Gtube , MR, CP, colectomy with ileostomy, generalized contractures Subjective Information Consult received for moisture associated wound at ileostomy site. Pt seen sleeping in bed at time of visit. TPN ordered per EMR. Waiting for PICC line consent. Current Diet Order/ Nutrition Support NPO Pertinent Medications D5-0.9%ns, synthroid, theragran, zinc, piperacillin, seroquel Pertinent Labs 02/02 Na 135, BUN 38, glucose 89, Mg 1.7, alb 3.2 Nutritional Hx/Data Height 1.78 m Height (Calculated Centimeters) 177.8 Current Weight (lbs) 71.214 kg Weight (Calculated Kilograms) 71.2 Weight (Calculated Grams) 20977.0 [place] Body Weight 166 Body Mass Index (BMI) 22.5 Weight Status Approriate GI Symptoms GI Symptoms None Last BM pt has ileostomy Difficult in: None Usual diet at home fibersource HN 1.2 80ml/hr x 21hr at care facility per chart, providing 2016kcal and 93g protein. Skin Integrity/Comment: ileostomy site red Estimated Nutritional Goals BEE in Kcals: Using Current wt Calories/Kcals/Kg 25-30 Kcals Calculated 6578-4173 Protein: Using Current wt Protein g/k-1.2 Protein Calculated 71-85 Fluid: ml 1775-2130ml (1ml/kcal) Nutritional Problem 2. Problem Problem increased nutrition needs Etiology increased metabolic demand Signs/Symptoms: dx of sepsis 1. Problem Problem altered nutrition related labs Etiology electrolytes/fluid imbalance Signs/Symptoms: Na 135, BUN 38 Malnutrition Alert Is there a minimum of two criteria No selected? Query Text:Check all the applicable criteria. A minimum of two criteria are recommended for diagnosis of either severe or non-severe malnutrition. Malnutrition Related to Morbid Obesity Malnutrition related to morbid obesity No Intervention/Recommendation Comments 1. Monitor NPO status. Will evaluate nutrition intake once nutrition support initiated. 2. Monitor wt, labs and skin integrity 3. F/U as high risk in 2-3 days, 02/04-02/05 Expected Outcomes/Goals Expected Outcomes/Goals 1. Pt to meet at least 75% of nutritional needs via nutrition support with tolerance 2. Wt stability, skin to remain intact, labs to approach WNL.
--- NOTE | 2018-02-07 13:44 | Discharge Summary ---
DATE OF DISCHARGE: 02/07/2018 CHIEF COMPLAINT: Infected ileostomy. FINAL DIAGNOSES: Replacement of ileostomy, abdominal wall cellulitis, UTI, mental retardation, cerebral palsy, seizures on his contracture. HISTORY: This is a 63-year-old male from nursing facility secondary to worsening ileostomy site with discharge, the patient is admitted for further management. PHYSICAL EXAMINATION: VITAL SIGNS: Blood pressure 107/50, respirations 18, pulse 72, temperature 97.0. GENERAL: Elderly male, appears his stated age. NECK: Supple. No JVD. No mass. LUNGS: Equal breath sounds, few rhonchi. HEART: Regular rate and rhythm. Systolic ejection murmur. ABDOMEN: Soft, globular. Positive ileostomy in a different site. Old ileostomy site was closed. EXTREMITIES: Positive contractures. NEUROLOGIC: Limited. HOSPITAL COURSE: The patient was admitted to telemetry, continue IV hydration, IV antibiotic. The patient was placed on TPN. The ileostomy reversal on the old one was closed and placement of a new ileostomy on the opposite side. The patient started on G-tube feeding and was tolerating that. The patient was cleared by Surgery for discharge. CONDITION ON DISCHARGE: Fair. DISCHARGE INSTRUCTIONS: The patient to follow up with surgery and continue with IV antibiotic. The patient to report to nearest ER if his condition worsens. JOB# [id number]
--- NOTE | 2018-02-09 14:31 | Pathology Report ---
[id number] Collection date: 02/04/2018 Surgeon: Dr. Jaymie Butler Specimen Description: Revision of ileostomy Gross Description: Received in formalin is an 8 cm in length x 2.8 cm in diameter segment of small bowel consistent with ileostomy revision. The outer surface shows some induration and fibrous adhesions. Opening the specimen shows the folded small bowel mucosa with no focal lesions. Also received is a 4 x 3 x 2 cm portion of yellow fatty tissue. Welfare Worker sections are submitted in three cassettes labeled A1 to A3. Microscopic Description: The histologic sections show small bowel with intact mucosa and muscular wall. There is mild chronic inflammation present on the outer surface of the specimen consisting of lymphocytes and plasma cells, and fibrous adhesions are also seen in this area. Diagnosis: Small bowel with nonspecific chronic inflammation and fibrous adhesions, consistent with ileostomy revision. [facility]# [id number] [email or web address]
== END 2018-02-07 15:12 | disposition home or self-care (01) | DRG 329 ==
LOC: ER 13:01 → TELE 14:45 → ICU 02-04 19:03 → MSI 02-06 13:17
PROVIDERS: ADMIT Internal Medicine; ATTEND Internal Medicine
PROC: 0DNW0ZZ Release Peritoneum, Open Approach (ICD-10-PCS; principal; 2018-02-04)
PROC: 0DB80ZZ Excision of Small Intestine, Open Approach (ICD-10-PCS; 2018-02-04)
PROC: 0D1B0Z4 Bypass Ileum to Cutaneous, Open Approach (ICD-10-PCS; 2018-02-04)
PROC: 3E0436Z Introduction of Nutritional Substance into Central Vein, Percutaneous Approach (ICD-10-PCS; 2018-02-06)
DX: K94.13 Enterostomy malfunction (principal); A41.9 Sepsis, unspecified organism; R53.2 Functional quadriplegia; L03.311 Cellulitis of abdominal wall; N39.0 Urinary tract infection, site not specified; K94.12 Enterostomy infection; E83.42 Hypomagnesemia; F79 Unspecified intellectual disabilities; G80.9 Cerebral palsy, unspecified; G40.909 Epilepsy, unspecified, not intractable, without status epilepticus; Y83.8 Other surgical procedures as the cause of abnormal reaction of the patient, or of later complication, without mention of misadventure at the time of the procedure; Y92.89 Other specified places as the place of occurrence of the external cause; M43.6 Torticollis; M50.20 Other cervical disc displacement, unspecified cervical region; K66.0 Peritoneal adhesions (postprocedural) (postinfection); Z88.8 Allergy status to other drugs, medicaments and biological substances; Z91.011 Allergy to milk products
CPT/HCPCS: 36415-UA; 71045-TC; 80053-TC; 81001-TC; 82465-TC; 82948-90; 83036-90; 83605; 83735-TC; 84100-TC; 84134-90; 84443-TC; 84478-TC; 85007-TC; 85025-TC; 85610-TC; 87086-90; 88304-TC; 90779; 90799; 93005; 94760; A4217; J0744; J1815; J1953; J2405; J2543; J2704; J2710; J3010; J3475; J7030; J7040; J7042; J8610; X6024; X6258; X6598; X7704; Z7610

== ENCOUNTER 2018-05-25 18:10 | Inpatient (IN) | payer MEDICARE, MEDICAID ==
[2018-05-25 18:36] LABS: % BASOPHILS 0.1 % (0.0-2.0); % EOSINOPHILS 3.7 % (0.0-5.0); % LYMPHOCYTES 18.8 % (20.0-50.0); % MONOCYTES 12.5 % (2.0-10.0); % NEUTROPHILS 64.9 % (40.0-80.0); EOSINOPHILE ABSOLUTE 0.5 Th/cmm (0.1-0.4); HEMATOCRIT 40.2 % (41.0-60); HEMOGLOBIN 13.5 gm/dL (12-16); LYMPHOCYTE ABSOLUTE 2.3 Th/cmm (1.5-3.0); MEAN CELL VOLUME 94.3 fl (80-99); MEAN CORPUSCULAR HEMOGLOBIN 31.6 pg (26.0-30.0); MEAN CORPUSCULAR HGB CONC 33.5 pg (28.0-36.0); MEAN PLATELET VOLUME 7.4 fl; MONOCYTE ABSOLUTE 1.5 Th/cmm (0.3-1.0); PLATELET COUNT 348 Th/cmm (150-400); RED BLOOD COUNT 4.26 Mil/cmm (4.30-5.70); RED CELL DISTRIBUTION WIDTH 13.4 % (11.5-20.0); WHITE BLOOD COUNT 12.3 Th/cmm (4.8-10.8)
[2018-05-25 18:38] LABS: URINE SOURCE CLEAN C
[2018-05-25 18:42] LABS: URINE BILIRUBIN NEGATIVE (NEGATIVE); URINE BLOOD MODERATE (NEGATIVE); URINE GLUCOSE (UA) 100 mg/dL (NEGATIVE); URINE KETONE NEGATIVE (NEGATIVE); URINE LEUKOCYTE ESTERASE MODERATE (NEGATIVE); URINE MICROSCOPIC INDICATED? YES; URINE NITRATE NEGATIVE (NEGATIVE); URINE PROTEIN NEGATIVE (NEGATIVE); URINE UROBILINOGEN 0.2 E.U./dL (0.2 - 1.0)
[2018-05-25 18:46] LABS: URINE CLARITY HAZY (CLEAR); URINE COLOR YELLOW
[2018-05-25 18:48] LABS: URINE BACTERIA 3+ /hpf (NONE SEEN); URINE EPITHELIAL CELLS FEW /lpf (FEW)
[2018-05-25 18:54] LABS: ALB/GLOB RATIO 1.1 (1.0-1.8); ALKALINE PHOSPHATASE 125 U/L (34-104); ANION GAP 15.8 (7.0-16.0); BILIRUBIN,TOTAL 0.4 mg/dL (0.3-1.0); BUN - UREA NITROGEN 17 mg/dL (7-25); CALCIUM SERUM 9.8 mg/dL (8.6-10.3); CARBON DIOXIDE 25.1 mEq/L (21.0-31.0); CHLORIDE 96 mEq/L (98-107); CREATININE - SERUM 0.6 mg/dL (0.7-1.3); GFR AFRICAN-AMERICAN > 60.0 ml/min (>90); GFR NON AFRICAN-AMERICAN > 60.0 ml/min; GLUCOSE 87 mg/dL (70-105); MAGNESIUM 2.1 mg/dL (1.9-2.7); PHOSPHOROUS 4.1 mg/dL (2.5-5.0); POTASSIUM SERUM 5.9 mEq/L (3.5-5.1); SGOT 53 U/L (13-39); SGPT/ALT 22 U/L (7-52); SODIUM SERUM 131 mEq/L (136-145); TOTAL PROTEIN,SERUM 7.5 gm/dL (6.0-8.3)
--- NOTE | 2018-05-25 19:06 | ED Physician Chart ---
ED Chief Complaint/HPI - Patient Information Date Seen:: 05/25/18 Time Seen:: 18:31 Chief Complaint:: inc in seizures & WBC History of Present Illness:: inc in seizures & WBC in a man with a known h/o seziures. Allergies:: Allergies Allergy/AdvReac Type Severity Reaction Status Date / Time buspirone [From BuSpar] Allergy Verified 11/24/17 01:51 divalproex sodium Allergy Verified 11/24/17 01:51 [From Depakote] fluoxetine Allergy Verified 11/24/17 01:51 magnesium hydroxide Allergy Verified 11/24/17 01:51 [From Milk of Magnesia] metoclopramide Allergy Verified 11/24/17 01:51 ondansetron Allergy Verified 11/24/17 01:51 Historian:: Patient Review:: Nurse's Note Reviewed ED Review of Systems - Review of Systems General/Constitutional: No fever, No chills, No weight loss, No weakness, No diaphoresis, No edema, No loss of appetite Skin: No skin lesions, No rash, No bruising Head: No headache, No light-headedness Eyes: No loss of vision, No pain, No diplopia ENT: No earache, No nasal drainage, No sore throat, No tinnitus Neck: No neck pain, No swelling, No thyromegaly, No stiffness, No mass noted Cardio Vascular: No chest pain, No palpitations, No PND, No orthopnea, No edema Pulmonary: No SOB, No cough, No sputum, No wheezing GI: No nausea, No vomiting, No diarrhea, No pain, No melena, No hematochezia, No constipation, No hematemesis G/U: No dysuria, No frequency, No hematuria Musculoskeletal: No bone or joint pain, No back pain, No muscle pain Endocrine: No polyuria, No polydipsia Psychiatric: No prior psych history, No depression, No anxiety, No suicidal ideation Hematopoietic: No bruising, No lymphadenopathy Allergic/Immuno: No urticaria, No angioedema Neurological: Seizure ED Past Medical History - Past Medical History Obtainable: No Past Medical History: Seizures Surgical History: PEG/GTube, other (ileostomy) Family Medical History - Family Member Mother History Unknown: Yes Ethnicity: Non- Living Status: Unknown Father History Unknown: Yes Ethnicity: Unknown Living Status: Unknown ED Physical Exam - Physical Examination Other Gen/Cons comments:: post-ictal Head: Atraumatic Eyes: Lids, conjuctiva normal, PERRL ENMT: External ears, nose nl Other Neck comments:: torticollosis to the left Other Respiratory comments:: rhonchi at bases more on the left than on the right. Cardio Vascular: RRR, No murmur, gallop, rubs, NL S1 S2 GI: No tenderness/rebounding/guarding, No organomegaly, No hernia, Normal BS's, Nondistended, No mass/bruits, No McBurney tenderness Extremities: No tenderness or effusion Other Neuro/Psych comments:: post-ictal ED Labs/Radiology/EKG Results - Lab Results Results: Laboratory Tests 05/25/18 05/25/18 05/25/18 18:15 18:30 18:30 WBC 12.3 H RBC 4.26 L Hgb 13.5 Hct 40.2 L MCV 94.3 MCH 31.6 H MCHC Differential 33.5 RDW 13.4 Plt Count 348 MPV 7.4 Neutrophils % 64.9 Lymphocytes % 18.8 L Monocytes % 12.5 H Eosinophils % 3.7 Basophils % 0.1 Sodium 131 L Potassium 5.9 H Chloride 96 L Carbon Dioxide 25.1 Anion Gap 15.8 BUN 17 Creatinine 0.6 L Est GFR ( Amer) > 60.0 Est GFR (Non-Af Amer) > 60.0 BUN/Creatinine Ratio 28.3 Glucose 87 Calcium 9.8 Phosphorus 4.1 Magnesium 2.1 Total Bilirubin 0.4 AST 53 H ALT 22 Alkaline Phosphatase 125 H Total Protein 7.5 Albumin 4.0 L Globulin 3.5 Albumin/Globulin Ratio 1.1 Urine Source CLEAN C Urine Color YELLOW Urine Clarity HAZY Urine pH 7.0 Ur Specific [place] <= 1.005 Urine Protein NEGATIVE Urine Glucose (UA) 100 H Urine Ketones NEGATIVE Urine Blood MODERATE H Urine Nitrate NEGATIVE Urine Bilirubin NEGATIVE Urine Urobilinogen 0.2 Ur Leukocyte Esterase MODERATE H Urine RBC 5-10 H Urine WBC 10-25 H Ur Epithelial Cells FEW Urine Bacteria 3+ H ED Assessment - Assessment General Assessment: called and presented case to Dr. Rick. He will admit the patient to telemetry. EKG from 19:46:43 p.m.: normal sinus rhythm with flipped t wave in V1-V3. ED Septic Shock - . Is Septic Shock (SBP<90, OR Lactate>4 mmol\L) present?: No ED Reassessment (Disposition) - Reassessment Reassessment Condition:: Unchanged - Diagnosis Diagnosis:: Severe intellectual disabilities Seizure disorder with VNS Recent increase in seizures, up to 12 a day Keppra level of 25 (normal is between 6 and 46) Impulse Control Disorder Major Depresive disorder G tube Ileostomy s/p large bowel removal Hypothyroidism Anemia Right bundle branch block Leukocytosis Urinary tract infection - Patient Disposition Discharge/Transfer:: Acute Care w/in this hosp Admitted to:: Telemetry Condition at Disposition:: Stable, Unchanged
[2018-05-25] MEDS ORDERED: Piperacillin Sodium/Tazobact 3.375 gm Vial IV ONE (19:21)
[2018-05-25] MEDS ORDERED: Guaifenesin DM 10 ML UDC GT PRN (21:49)
[2018-05-25] MEDS ORDERED: ACETAMINOPHEN 650 MG GT PRN (21:49)
[2018-05-25] MEDS ORDERED: Albuterol Nebulizer 2.5mg/3mL HHN PRN (21:56)
[2018-05-25] MEDS ORDERED: SODIUM CHLORIDE IR SCH (22:00)
[2018-05-25] MEDS: D5-0.9%NS 1,000 ML IV SCH (23:23)
[2018-05-26 03:59] VITALS: BP 118/65
[2018-05-26] MEDS ORDERED: Ipratropium Neb 0.5 mg/2.5 mL UD HHN SCH (07:30)
[2018-05-26] MEDS: Ipratropium Neb 0.5 mg/2.5 mL UD HHN SCH ×2 (07:33→18:33)
--- NOTE | 2018-05-26 08:20 | Diagnostic Imaging Report ---
CHEST X-RAY: AP view INDICATION: Aspiration COMPARISON: Chest x-ray 02/03/2018 FINDINGS: Prior right PICC line has been removed. Spinal stimulator is noted with reservoir along the left chest region. Chronic lung changes are seen with no focal consolidation. Slight increased left basal density is noted. Borderline cardiomegaly is noted. Degenerative changes of the spine are noted with scoliosis. Old right rib fractures are noted. There is evidence of old trauma to the left proximal humerus. IMPRESSION: Chronic interstitial lung changes. Left basal densities noted which may be due to superimposition of soft tissue structures, however, a small left effusion or atelectasis versus infiltrate in this region cannot be excluded. Spinal stimulator device.
[2018-05-26] MEDS ORDERED: CRANBERRY FRUIT 425 MG GT SCH (09:00)
[2018-05-26] MEDS ORDERED: BIOTIN 1000 MCG GT SCH (09:00)
[2018-05-26] MEDS ORDERED: CLOBAZAM 20 MG GT SCH (09:00)
[2018-05-26] MEDS: Lactobacillus Rhamnosus GG 15 Billion CFU CAP.SPRINK GT SCH (09:32)
[2018-05-26] MEDS: Ferrous Sulfate 325 MG TAB PO SCH ×3 (09:32→22:31)
[2018-05-26] MEDS: Levothyroxine 0.125 Mg Tab GT SCH (09:33)
[2018-05-26] MEDS: Benztropine 1 MG TAB GT SCH ×2 (09:33→16:23)
[2018-05-26] MEDS: Lactulose 10 Gm/15 mL 30mL UDC GT SCH (09:33)
[2018-05-26] MEDS: Multivitamin w/ Minerals Tab GT SCH (09:33)
[2018-05-26] MEDS: Levetiracetam 500 mg/5mL 5mL UDSyr *for ORAL USE ONLY GT SCH ×2 (09:33→16:24)
[2018-05-26] MEDS: Fluticasone Propionate Nasal 1 SPR SPR NS SCH (09:35)
[2018-05-26] MEDS: Saline 0.65% Nasal Spray NS SCH ×4 (09:35→22:54)
--- NOTE | 2018-05-26 12:49 | History & Physical ---
ADMIT DATE: 05/25/2018 CHIEF COMPLAINT: Uncontrolled seizure. HISTORY OF PRESENT ILLNESS: This is a 63-year-old male with history of mental retardation, cerebral palsy of 37, seizure, history of megacolon with ileostomy. Previous colectomy general contracture admitted from nursing facility secondary to uncontrolled seizure having about 12 or so times in a given day. The patient was seen by his neurologist without any improvement. The patient was brought in the ER, noted to have urinary tract infection and was dehydrated. PAST MEDICAL HISTORY: As mentioned in history of present illness. PAST SURGICAL HISTORY: Initially, we will also have a spinal stimulator placed. ALLERGIES: DEPAKOTE, FLUOXETINE, MAGNESIUM HYDROXIDE, REGLAN, ZOFRAN. MEDICATIONS: Fosamax, calcium, chlorhexidine, loratadine, lorazepam, Tylenol, Keppra, folic acid, ibuprofen, Ramsay, lactulose, Lamictal, Synthroid, methotrexate, multivitamin, or rifaximin. FAMILY HISTORY: Noncontributory. SOCIAL HISTORY: The patient is a care home patient, she requiring 24-hour total care. REVIEW OF SYSTEMS: This is limited secondary being current withdrawal disabled. We will try to obtain more detailed review of system at a later date by talking to family members. There is a uncle, Bertrand Lam, no #, . We also try to get information from the nursing staff at [facility], #[phone]. PHYSICAL EXAMINATION: VITAL SIGNS: Blood pressure 137/77, respiration 18, pulse 83, temperature 97.8. GENERAL: Elderly male, appears chronically ill. NECK: Contracted. LUNGS: Equal breath sounds, few rhonchi. HEART: Regular rate and rhythm with systolic ejection murmur. ABDOMEN: Soft, globular. EXTREMITIES: Positive excoriation contractures present. Ileostomy. NEUROLOGIC: Limited WBC positive Suggs. LABORATORY DATA: WBC 12.3, hemoglobin 13, platelets 348. Sodium 130, sodium 2.9, BUN 17, creatinine 0.6, AST 53, alkaline phosphatase 125. Albumin 4.0. ASSESSMENT AND PLAN: Uncontrolled seizure, leukocytosis, hyponatremia, hyperkalemia, with ileostomy, hypothyroidism, cerebral palsy, mental retardation. The patient on aggressive IV hydration, continue IV antibiotic. Continue on antiplatelet medication. We will have refer the patient to Neurology. Continue with current care with followup consult and recommendations. JOB# [id number]
[2018-05-26] MEDS ORDERED: ESLICARBAZEPINE ACETATE 600 MG GT SCH (16:00)
[2018-05-26] MEDS: [UNRECOGNIZED DRUG - OTHER] GT SCH (16:20)
[2018-05-26] MEDS: ESLICARBAZEPINE GT SCH (16:20)
[2018-05-26] MEDS: ONFI 20 MG GT SCH (16:20)
[2018-05-26] MEDS: D5-0.9%NS 1,000 ML IV SCH (22:40)
[2018-05-26] MEDS: Chlorhexidine Gluconate 0.12% 15mL Mouthwash MM SCH (22:55)
[2018-05-27 06:09] LABS: ALB/GLOB RATIO 1.1 (1.0-1.8); ALBUMIN 3.5 gm/dL (4.2-5.5); ALKALINE PHOSPHATASE 125 U/L (34-104); ANION GAP 16.8 (7.0-16.0); BILIRUBIN,TOTAL 0.4 mg/dL (0.3-1.0); BUN - UREA NITROGEN 17 mg/dL (7-25); CALCIUM SERUM 9.3 mg/dL (8.6-10.3); CHLORIDE 102 mEq/L (98-107); CREATININE - SERUM 0.7 mg/dL (0.7-1.3); GFR AFRICAN-AMERICAN > 60.0 ml/min (>90); GFR NON AFRICAN-AMERICAN > 60.0 ml/min; GLUCOSE 99 mg/dL (70-105); POTASSIUM SERUM 4.8 mEq/L (3.5-5.1); SGOT 31 U/L (13-39); SGPT/ALT 19 U/L (7-52); SODIUM SERUM 134 mEq/L (136-145); TOTAL PROTEIN,SERUM 6.7 gm/dL (6.0-8.3)
[2018-05-27 06:43] LABS: HEMATOCRIT 38.8 % (41.0-60); MEAN CELL VOLUME 94.9 fl (80-99); MEAN CORPUSCULAR HEMOGLOBIN 31.7 pg (26.0-30.0); MEAN CORPUSCULAR HGB CONC 33.4 pg (28.0-36.0); MEAN PLATELET VOLUME 7.1 fl; PLATELET COUNT 329 Th/cmm (150-400); RED BLOOD COUNT 4.09 Mil/cmm (4.30-5.70); RED CELL DISTRIBUTION WIDTH 13.4 % (11.5-20.0); WHITE BLOOD COUNT 8.1 Th/cmm (4.8-10.8)
[2018-05-27] MEDS: Levothyroxine 0.125 Mg Tab GT SCH (06:54)
[2018-05-27 07:06] LABS: BAND NEUTROPHILE 0 % (0-10); BASOPHIL 0 % (0-3); EOSINOPHIL 2 % (0-5); LYMPHOCYTE 13 % (20-50); MONOCYTE 11 % (2-10); NEUTROPHILS 74 % (40-80)
[2018-05-27] MEDS: Ipratropium Neb 0.5 mg/2.5 mL UD HHN SCH ×2 (07:20→19:13)
[2018-05-27] MEDS: Fluticasone Propionate Nasal 1 SPR SPR NS SCH (09:11)
[2018-05-27] MEDS: Saline 0.65% Nasal Spray NS SCH ×4 (09:11→21:55)
[2018-05-27] MEDS: Levetiracetam 500 mg/5mL 5mL UDSyr *for ORAL USE ONLY GT SCH ×2 (09:13→16:13)
[2018-05-27] MEDS: Benztropine 1 MG TAB GT SCH ×2 (09:13→16:13)
[2018-05-27] MEDS: Ferrous Sulfate 325 MG TAB PO SCH ×3 (09:13→21:52)
[2018-05-27] MEDS: Multivitamin w/ Minerals Tab GT SCH (09:14)
[2018-05-27] MEDS: Lactobacillus Rhamnosus GG 15 Billion CFU CAP.SPRINK GT SCH (09:16)
[2018-05-27] MEDS: Lactulose 10 Gm/15 mL 30mL UDC GT SCH (09:17)
[2018-05-27] MEDS: Non-Formulary Item 1 EA (Brinzolamide/Brimonidine Tart [Simbrinza 1%-0.2% Eye Drops] 1 DRO EACH EYE SCH ×2 (09:18→16:15)
[2018-05-27] MEDS: HYDROPHIL PETROLAT TP SCH ×2 (09:18→16:16)
[2018-05-27] MEDS: MICONAZOLE NITRATE TP SCH ×2 (09:18→16:16)
[2018-05-27] MEDS: [UNRECOGNIZED DRUG - OTHER] TP SCH ×2 (09:18→16:16)
[2018-05-27] MEDS: ONFI 20 MG GT SCH ×3 (09:19→16:19)
--- NOTE | 2018-05-27 09:33 | Consultation ---
DATE OF CONSULTATION: 05/26/2018 HISTORY OF PRESENT ILLNESS: A 63-year-old male with recurrent seizure, admitted from facility. While here, the patient really has no seizure today. The patient has history of cerebral palsy. 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 PAST MEDICAL HISTORY: 1. Seizures. Multiple medications includes Keppra, Lamictal. 2. The patient developed arthritis. 3. Hypothyroidism. 4. Mental retardation. MEDICATIONS: As per reconciliation. Here, the patient is on clonazepam 1 mg b.i.d., Lexapro 20 mg daily, folic acid, lamotrigine 200 mg GT daily, lamotrigine 350 mg at bedtime, Keppra 1000 mg GT b.i.d., levothyroxine, lorazepam 1 mg p.r.n. IV, methotrexate. REVIEW OF SYSTEMS: Not obtainable. The patient opens eyes. Some response, but not able to give me any history. Limited speech. Staff tells me he had a swallowing assessment and can swallow some. SOCIAL HISTORY: The patient, jail, requiring 24-hour total care. PHYSICAL EXAMINATION: VITAL SIGNS: Temperature 98.2, blood pressure 140/76, and pulse is 80. NECK: Supple. No bruits. HEART: Sounds S1, S2. LUNGS: Bilateral crepitation. ABDOMEN: G-tube. NEUROLOGIC: Lying in bed. The patient will open eyes. He moves the right side, will actually spontaneously move it, but on the left, he do not get much movement. The patient's pupils are reactive to light. ASSESSMENT: Seizures. The movement seem to be stable today on the above dosages. We will continue with that. The option may be to increase the Keppra somewhat more, but we will see. The patient will check labs to make sure no underlying reason for that. Sodium is somewhat low, though not low enough to be causing recurrent seizures. UA positive for wbc's, positive for urinary tract infection, which could be contributing to the seizures. Rule out other sepsis. JOB# [id number]
--- NOTE | 2018-05-27 13:29 | Internal Medicine Prog Note ---
Internal Medicine Subjective - Subjective Patient seen and examined:: with staff, chart reviewed Patient is:: awake, non-verbal, non-interactive, in bed, confused Patient Complaints of:: congestion, unable to sleep Per staff patient has:: no adverse event, no episodes of fall, poor appetite, agitated, noncompliant, tolerating meds Internal Medicine Objective - Results Result Diagrams: 05/27/18 06:30 05/27/18 06:30 Recent Labs: Laboratory Last Values WBC 8.1 Th/cmm (4.8-10.8) 05/27/18 06:30 RBC 4.09 Mil/cmm (4.30-5.70) L 05/27/18 06:30 Hgb 13.0 gm/dL (12-16) 05/27/18 06:30 Hct 38.8 % (41.0-60) L 05/27/18 06:30 MCV 94.9 fl (80-99) 05/27/18 06:30 MCH 31.7 pg (26.0-30.0) H 05/27/18 06:30 MCHC Differential 33.4 pg (28.0-36.0) 05/27/18 06:30 RDW 13.4 % (11.5-20.0) 05/27/18 06:30 Plt Count 329 Th/cmm (150-400) 05/27/18 06:30 MPV 7.1 fl 05/27/18 06:30 Add Manual Diff YES 05/27/18 06:30 Neutrophils % 64.9 % (40.0-80.0) 05/25/18 18:30 Band Neutrophils % 0 % (0-10) 05/27/18 06:30 Lymphocytes % 18.8 % (20.0-50.0) L 05/25/18 18:30 Monocytes % 12.5 % (2.0-10.0) H 05/25/18 18:30 Eosinophils % 3.7 % (0.0-5.0) 05/25/18 18:30 Basophils % 0.1 % (0.0-2.0) 05/25/18 18:30 Neutrophils (Manual) 74 % (40-80) 05/27/18 06:30 Lymphocytes 13 % (20-50) L 05/27/18 06:30 Monocytes 11 % (2-10) H 05/27/18 06:30 Eosinophils 2 % (0-5) 05/27/18 06:30 Basophils 0 % (0-3) 05/27/18 06:30 Sodium 134 mEq/L (136-145) L 05/27/18 06:30 Potassium 4.8 mEq/L (3.5-5.1) 05/27/18 06:30 Chloride 102 mEq/L (98-107) 05/27/18 06:30 Carbon Dioxide 20.0 mEq/L (21.0-31.0) L 05/27/18 06:30 Anion Gap 16.8 (7.0-16.0) H 05/27/18 06:30 BUN 17 mg/dL (7-25) 05/27/18 06:30 Creatinine 0.7 mg/dL (0.7-1.3) 05/27/18 06:30 Est GFR ( Amer) > 60.0 ml/min (>90) 05/27/18 06:30 Est GFR (Non-Af Amer) > 60.0 ml/min 05/27/18 06:30 BUN/Creatinine Ratio 24.3 05/27/18 06:30 Glucose 99 mg/dL (70-105) 05/27/18 06:30 Calcium 9.3 mg/dL (8.6-10.3) 05/27/18 06:30 Phosphorus 4.1 mg/dL (2.5-5.0) 05/25/18 18:30 Magnesium 2.0 mg/dL (1.9-2.7) 05/27/18 06:30 Total Bilirubin 0.4 mg/dL (0.3-1.0) 05/27/18 06:30 AST 31 U/L (13-39) 05/27/18 06:30 ALT 19 U/L (7-52) 05/27/18 06:30 Alkaline Phosphatase 125 U/L (34-104) H 05/27/18 06:30 B-Natriuretic Peptide 66.3 pg/mL (5.0-100.0) 05/27/18 06:30 Total Protein 6.7 gm/dL (6.0-8.3) 05/27/18 06:30 Albumin 3.5 gm/dL (4.2-5.5) L 05/27/18 06:30 Globulin 3.2 gm/dL 05/27/18 06:30 Albumin/Globulin Ratio 1.1 (1.0-1.8) 05/27/18 06:30 Urine Source CLEAN C 05/25/18 18:15 Urine Color YELLOW 05/25/18 18:15 Urine Clarity HAZY (CLEAR) 05/25/18 18:15 Urine pH 7.0 (4.6 - 8.0) 05/25/18 18:15 Ur Specific [place] <= 1.005 (1.005-1.030) 05/25/18 18:15 Urine Protein NEGATIVE mg/dL (NEGATIVE) 05/25/18 18:15 Urine Glucose (UA) 100 mg/dL (NEGATIVE) H 05/25/18 18:15 Urine Ketones NEGATIVE mg/dL (NEGATIVE) 05/25/18 18:15 Urine Blood MODERATE (NEGATIVE) H 05/25/18 18:15 Urine Nitrate NEGATIVE (NEGATIVE) 05/25/18 18:15 Urine Bilirubin NEGATIVE (NEGATIVE) 05/25/18 18:15 Urine Urobilinogen 0.2 E.U./dL (0.2 - 1.0) 05/25/18 18:15 Ur Leukocyte Esterase MODERATE (NEGATIVE) H 05/25/18 18:15 Urine RBC 5-10 /hpf (0-5) H 05/25/18 18:15 Urine WBC 10-25 /hpf (0-5) H 05/25/18 18:15 Ur Epithelial Cells FEW /lpf (FEW) 05/25/18 18:15 Urine Bacteria 3+ /hpf (NONE SEEN) H 05/25/18 18:15 Levetiracetam 44.1 ug/mL (10.0-40.0) H 05/25/18 18:30 - Physical Exam Vitals and I&O: Vital Signs Temp 96.0 F 05/27/18 12:02 Pulse 71 05/27/18 12:02 Resp 17 05/27/18 12:02 BP 120/76 05/27/18 12:02 Pulse Ox 97 05/27/18 12:02 Intake & Output 05/26/18 05/27/18 05/27/18 18:59 06:59 18:59 Intake Total 1200 400 Output Total 750 400 Balance 450 0 Weight (lbs) 66.678 kg 75.478 kg 75.251 kg Intake: Intake, IV Amount 1200 100 D5-0.9%Ns 1,000 ml @ 80 1000 mls/hr IV .[id number] [facility] Rx #:[id number] Piperacillin Sodium/ 200 100 Tazobact 4.5 gm In Sodium Chloride 0.9% 100 ml @ 200 mls/hr IV 0000,0800, 1600 [facility] Rx#:[id number] Oral 0 Tube Feeding 300 Output: Urine 650 300 Stool 100 100 Other: # Voids 1 Weight Source Bedscale Bedscale Bedscale Active Medications: Current Medications Acetaminophen (Tylenol 650mg/20.3ml Suspension) 650 mg PO Q4H PRN PRN Reason: Mild Pain 1-3/Fever above 101 Stop: 07/24/18 21:55 Last Admin: 05/26/18 22:27 Dose: 650 mg Albuterol Sulfate (Albuterol 2.5mg/3ml Neb Ud) 2.5 mg HHN Q2HRT PRN PRN Reason: Shortness of Breath or Wheeze Stop: 07/24/18 21:55 Benztropine Mesylate (Cogentin) 1 mg GT BID [facility] Stop: 07/25/18 08:59 Last Admin: 05/27/18 09:13 Dose: 1 mg Calcium Carbonate (Calcium Carb) 600 mg GT BID [facility] Stop: 07/25/18 08:59 Last Admin: 05/27/18 09:14 Dose: 600 mg Chlorhexidine Gluconate (Peridex) 15 ml MM HS [facility] Stop: 07/25/18 20:59 Last Admin: 05/26/18 22:55 Dose: 15 ml Clonazepam (Klonopin) 1 mg GT BID [facility] Stop: 07/25/18 08:59 Last Admin: 05/27/18 09:14 Dose: 1 mg Escitalopram Oxalate (Lexapro) 20 mg GT DAILY [facility]; Protocol Stop: 07/25/18 08:59 Last Admin: 05/27/18 09:13 Dose: 20 mg Famotidine (Pepcid) 20 mg GT BID [facility] Stop: 07/25/18 08:59 Last Admin: 05/27/18 09:14 Dose: 20 mg Ferrous Sulfate (Iron) 325 mg PO TID [facility] Stop: 07/25/18 08:59 Last Admin: 05/27/18 09:13 Dose: 325 mg Finasteride (Proscar) 5 mg GT DAILY [facility]; Protocol Stop: 07/25/18 08:59 Last Admin: 05/27/18 09:15 Dose: 5 mg Fluticasone Propionate (Flonase) 2 spr NS DAILY [facility] Stop: 07/25/18 08:59 Last Admin: 05/27/18 09:11 Dose: 2 spr Folic Acid (Folate) 1 mg GT DAILY [facility] Stop: 07/25/18 08:59 Last Admin: 05/27/18 09:15 Dose: 1 mg Guaifenesin/Dextromethorphan (Robitussin Dm) 10 ml GT Q4H PRN PRN Reason: Cough Stop: 07/24/18 21:48 Hydrocortisone (Hydrocortisone 1%) 1 appl TP BID [facility] Stop: 07/25/18 16:59 Last Admin: 05/27/18 09:16 Dose: 1 appl Dextrose/Sodium Chloride (D5-0.9%Ns) 1,000 mls @ 80 mls/hr IV .[id number] [facility] Stop: 07/24/18 21:59 Last Admin: 05/26/18 22:40 Dose: 80 mls/hr Piperacillin Sod/Tazobactam (Sod 4.5 gm/ Sodium Chloride) 100 mls @ 200 mls/hr IV 0000,0800,1600 [facility] Stop: 07/25/18 00:00 Last Admin: 05/27/18 08:46 Dose: 200 mls/hr Ibuprofen (Motrin) 600 mg GT Q6H PRN PRN Reason: BACK PAIN Stop: 07/24/18 21:48 Ipratropium [place] (Atrovent Neb 0.5mg/2.5ml) 0.5 mg HHN BIDRT [facility] Stop: 07/25/18 07:29 Last Admin: 05/27/18 07:20 Dose: 0.5 mg Lactobacillus Rhamnosus (Culturelle 15b) 1 each GT DAILY [facility] Stop: 07/25/18 08:59 Last Admin: 05/27/18 09:16 Dose: 1 each Lactulose (Cephulac) 20 gm GT DAILY [facility] Stop: 07/25/18 08:59 Last Admin: 05/27/18 09:17 Dose: 20 gm Lamotrigine (Lamictal) 200 mg GT DAILY [facility]; Protocol Stop: 07/25/18 08:59 Last Admin: 05/27/18 09:14 Dose: 200 mg Lamotrigine (Lamictal) 350 mg GT HS [facility]; Protocol Stop: 07/25/18 20:59 Last Admin: 05/26/18 22:30 Dose: 350 mg Levetiracetam (Keppra) 1,000 mg GT BID [facility] Stop: 07/25/18 08:59 Last Admin: 05/27/18 09:13 Dose: 1,000 mg Levothyroxine Sodium (Synthroid) 0.125 mg GT QDAC [facility] Stop: 07/25/18 07:29 Last Admin: 05/27/18 06:54 Dose: 0.125 mg Loratadine (Claritin) 10 mg GT DAILY [facility] Stop: 07/25/18 08:59 Last Admin: 05/27/18 09:13 Dose: 10 mg Lorazepam (Ativan) 1 mg IV Q4H PRN; Protocol PRN Reason: Seizure Stop: 07/24/18 21:55 Methotrexate (Methotrexate) 10 mg GT QTUE [facility]; Protocol Stop: 07/25/18 07:29 Last Admin: 05/26/18 06:50 Dose: 10 mg Miscellaneous (Biotin [Biotin]) 1,000 mcg GT DAILY [facility] Stop: 07/25/18 08:59 Last Admin: 05/27/18 09:17 Dose: Not Given Miscellaneous (Brinzolamide/Brimonidine Tart [Simbrinza 1%-0.2% Eye Drops]) 1 drop EACH EYE BID [facility] Stop: 07/25/18 08:59 Last Admin: 05/27/18 09:18 Dose: Not Given Miscellaneous (Miconazole Nitrate [Lotrimin Af]) 1 dose TP BID [facility] Stop: 07/25/18 08:59 Last Admin: 05/27/18 09:18 Dose: Not Given Miscellaneous (Mineral Oil/Hydrophil Petrolat [Aquaphor Ointment]) 1 appl TP BID [facility] Stop: 07/25/18 08:59 Last Admin: 05/27/18 09:18 Dose: Not Given Ondansetron HCl (Zofran) 4 mg IV Q8H PRN PRN Reason: Nausea / Vomiting Stop: 07/24/18 21:55 Patient Own Med-Onfi ((Clobazam) 20mg Tab) 1 GT BID [facility] Stop: 07/25/18 16:59 Last Admin: 05/27/18 11:58 Dose: 1 Patient Own Med - Apitom ( Eslicarbazepine 800 Mg) 1 GT QPM [facility] Stop: 07/25/18 16:59 Last Admin: 05/26/18 16:20 Dose: 1 Quetiapine Fumarate (Seroquel) 25 mg GT HS [facility]; Protocol Stop: 07/25/18 20:59 Rifaximin (Xifaxan) 550 mg GT BID [facility] Stop: 07/25/18 08:59 Last Admin: 05/27/18 09:14 Dose: 550 mg Sodium Chloride ([place] Nasal Ord) 1 spr NS QID [facility] Stop: 07/25/18 08:59 Last Admin: 05/27/18 09:11 Dose: 1 spr Sodium Chloride (Nacl Tab) 1 gm GT BID [facility] Stop: 07/25/18 08:59 Last Admin: 05/27/18 09:14 Dose: 1 gm Tamsulosin HCl (Flomax) 0.4 mg GT HS [facility] Stop: 07/25/18 20:59 Last Admin: 05/26/18 22:31 Dose: 0.4 mg General: congested, demented, edematous HEENT: NC/AT, PERRLA, EOMI, dry oral mucosa, thinning hair, poor dentition Neck: Supple, No JVD, No thyromegaly Lungs: congested, wheezing Cardiovascular: RRR, Normal S1, Normal S2 Abdomen: soft, globular, positive bowel sound Extremities: excoriation Neurological: no change, lethargic, unable to follow command - Procedures Procedures: Procedures Procedure Code Date BYPASS ILEUM TO CUTANEOUS, OPEN APPROACH [id number] 02/01/18 CHANGE FEEDING DEVICE IN UP INTEST TRACT, FOOD PROCESSING SCIENTIST APPROACH [id number] 11/24/17 CHANGE GASTROSTOMY TUBE 05749 11/01/17 DRAINAGE OF SMALL INTESTINE, OPEN APPROACH [id number] 11/01/17 EXCISION OF SMALL INTESTINE, OPEN APPROACH [id number] 02/01/18 EXPLORATION OF ABDOMEN 70473 11/01/17 FREEING OF BOWEL ADHESION 72396 11/01/17 ILEOSTOMY/JEJUNOSTOMY 13388 09/23/17 INSERTION OF ENDOTRACHEAL AIRWAY INTO TRACHEA, VIA OPENING [id number] 09/23/17 INSERTION OF FEEDING DEVICE INTO STOMACH, OPEN APPROACH [id number] 09/23/17 INTRODUCTION OF NUTRITIONAL INTO CENTRAL VEIN, PERC APPROACH [id number] 02/01/18 PARTIAL REMOVAL OF COLON 34673 09/23/[address] PL[address] GASTROSTOMY TUBE 96504 09/23/17 RELEASE PERITONEUM, OPEN APPROACH [id number] 02/01/18 RELEASE SMALL INTESTINE, OPEN APPROACH [id number] 11/01/17 REPAIR SMALL INTESTINE, OPEN APPROACH [id number] 11/01/17 RESECTION OF LARGE INTESTINE, OPEN APPROACH [id number] 09/23/17 RESPIRATORY VENTILATION, LESS THAN 24 CONSECUTIVE HOURS [id number] 09/23/17 SUTURE SMALL INTESTINE 18518 11/01/17 Internal Medicine Assmt/Plan - Assessment Assessment: ASSESSMENT AND PLAN: Uncontrolled seizure, leukocytosis, hyponatremia, hyperkalemia, with ileostomy, hypothyroidism, cerebral palsy, mental retardation. - Plan Plan: The patient on aggressive IV hydration, continue IV antibiotic. Continue on antiplatelet medication. We will have refer the patient to Neurology. Continue with current care with followup consult and recommendations. Nutritional Asmnt/Malnutr-PDOC - Dietary Evaluation Malnutrition Findings (Please click <Entered> for more info): Nutritional Asmnt/Malnutrition Start: 05/26/18 12: 38 Text: Status: Complete Freq: Protocol: Document 05/26/18 12:38 SHERRI (Rec: 05/26/18 12:50 SHERRI [email or web address]) Nutritional Asmnt/Malnutrition Patient General Information Nutritional Screening High Risk Diagnosis fever, uncontrolled seizure, sepsis Pertinent Medical Hx/Surgical Hx seizures, ileostomy, PEG/Gtube Subjective Information Pt sleeping and visually verified no TF running at time of visit. Pt was NPO and scheduled to start TF today. Current Diet Order/ Nutrition Support Tube Feeding: Jevity 1.2 @ 90 ml/hr x 18 hrs Pertinent Medications calcium carb, D5-0.9%ns, pepcid, iron, folate, culturelle 15b, piperacillin, seroquel, Nacl tab Pertinent Labs 05/25: Na 131, K 5.9, Cl 96, Alb 4.0, Cr 0.6 Nutritional Hx/Data Height 1.78 m Height (Calculated Centimeters) 177.8 Current Weight (lbs) 66.678 kg Weight (Calculated Kilograms) 66.7 Weight (Calculated Grams) 43105.1 [place] Body Weight 166 lb Body Mass Index (BMI) 21.1 Weight Status Approriate GI Symptoms GI Symptoms None Last BM none noted Difficult in: Swallowing Food Allergies No Skin Integrity/Comment: rash to left foot and right abdomen, skin tear to right foot, gastrostomy to left upper quadrant, kenny 12 Estimated Nutritional Goals BEE in Kcals: Using Current wt Calories/Kcals/Kg 27-32 Kcals Calculated 9704-0454 Protein: Using Current wt Protein g/k.2-1.4 Protein Calculated 80-94 g Fluid: ml 7081-2057 (1 ml/kcal) Nutritional Problem 2. Problem Problem Increased nutrient needs Etiology metabolic stress Signs/Symptoms: dx of sepsis 1. Problem Problem Altered nutrition related lab values Etiology electrolyte imbalance Signs/Symptoms: Na 131, K 5.9, Cl 96 Malnutrition Alert Is there a minimum of two criteria No selected? Query Text:Check all the applicable criteria. A minimum of two criteria are recommended for diagnosis of either severe or non-severe malnutrition. Malnutrition Related to Morbid Obesity Malnutrition related to morbid obesity No Intervention/Recommendation Comments 1. Continue with current TF regimen of Jevity 1.2 @ 90 ml/ hr x 18 hrs as tolerated. It provides 1944 kcal, ~90g protein, 1307 ml free water, meeting 100% of nutritional needs 2. MD to replace electrolytes as needed 3. Monitor TF rate, tolerance, wt, skin integrity and labs 4. F/U as high risk in 2-3 days, 05/28- Expected Outcomes/Goals Expected Outcomes/Goals 1. Pt to meet >95% of nutritional needs via nutrition support with tolerance 2. Wt stability, skin integrity to improve, labs to approach normal limits Reviewed by Zulema Sidhu RD
[2018-05-27] MEDS ORDERED: D5-0.9%NS 1,000 ML IV SCH (13:45)
[2018-05-27] MEDS: [UNRECOGNIZED DRUG - OTHER] GT SCH (16:14)
[2018-05-27] MEDS: ESLICARBAZEPINE GT SCH (16:14)
--- NOTE | 2018-05-27 20:01 | Progress Notes ---
DATE: 05/27/2018 SUBJECTIVE: The patient is in bed, sleepy, but will awaken. The patient is moving the right side, not much than the left eye. Staff tells me no seizures during the night. MEDICATIONS: Clonazepam b.i.d., Lexapro 20 mg, folic acid, lamotrigine 200+350, Keppra 1000 b.i.d., levothyroxine, lorazepam p.r.n., methotrexate. The patient is taking clobazam, on Aptiom 800 mg 1 q. p.m., Seroquel 25. OBJECTIVE: VITAL SIGNS: 97.4, blood pressure 130/68, pulse is 74. NECK: Supple, no bruits. CARDIOVASCULAR: Heart sounds S1, S2. LUNGS: Clear. EXTREMITIES: The patient moves right not much, limited interaction. ASSESSMENT: 1. Seizures seem to be under control at the moment. 2. Cerebral palsy. 3. Mental retardation. 4. Dysphagia. 5. Hypothyroidism. 6. Ileostomy. PLAN: Continue present treatment. JOB# [id number]
[2018-05-27] MEDS: Chlorhexidine Gluconate 0.12% 15mL Mouthwash MM SCH (21:53)
[2018-05-28] MEDS: Ipratropium Neb 0.5 mg/2.5 mL UD HHN SCH ×2 (06:54→19:08)
[2018-05-28] MEDS: Levothyroxine 0.125 Mg Tab GT SCH (06:57)
[2018-05-28 07:37] LABS: % EOSINOPHILS 7.3 % (0.0-5.0); % LYMPHOCYTES 18.3 % (20.0-50.0); % MONOCYTES 9.1 % (2.0-10.0); % NEUTROPHILS 62.3 % (40.0-80.0); BASOPHILE ABSOLUTE 0.2 Th/cumm (0-0.2); EOSINOPHILE ABSOLUTE 0.5 Th/cmm (0.1-0.4); HEMATOCRIT 37.9 % (41.0-60); HEMOGLOBIN 12.6 gm/dL (12-16); LYMPHOCYTE ABSOLUTE 1.2 Th/cmm (1.5-3.0); MEAN CELL VOLUME 94.8 fl (80-99); MEAN CORPUSCULAR HEMOGLOBIN 31.5 pg (26.0-30.0); MEAN CORPUSCULAR HGB CONC 33.2 pg (28.0-36.0); MEAN PLATELET VOLUME 7.7 fl; MONOCYTE ABSOLUTE 0.6 Th/cmm (0.3-1.0); NEUTROPHILE ABSOLUTE 4.1 Th/cmm (1.8-8.0); PLATELET COUNT 202 Th/cmm (150-400); RED CELL DISTRIBUTION WIDTH 13.6 % (11.5-20.0); WHITE BLOOD COUNT 6.6 Th/cmm (4.8-10.8)
[2018-05-28 07:47] LABS: ALB/GLOB RATIO 1.2 (1.0-1.8); ALBUMIN 3.4 gm/dL (4.2-5.5); ALKALINE PHOSPHATASE 125 U/L (34-104); ANION GAP 11.8 (7.0-16.0); BILIRUBIN,TOTAL 0.3 mg/dL (0.3-1.0); BUN - UREA NITROGEN 16 mg/dL (7-25); CALCIUM SERUM 9.1 mg/dL (8.6-10.3); CARBON DIOXIDE 26.7 mEq/L (21.0-31.0); CHLORIDE 103 mEq/L (98-107); CREATININE - SERUM 0.7 mg/dL (0.7-1.3); GFR AFRICAN-AMERICAN > 60.0 ml/min (>90); GFR NON AFRICAN-AMERICAN > 60.0 ml/min; GLUCOSE 110 mg/dL (70-105); POTASSIUM SERUM 4.5 mEq/L (3.5-5.1); SGOT 21 U/L (13-39); SGPT/ALT 16 U/L (7-52); SODIUM SERUM 137 mEq/L (136-145); TOTAL PROTEIN,SERUM 6.2 gm/dL (6.0-8.3)
[2018-05-28] MEDS: Lactulose 10 Gm/15 mL 30mL UDC GT SCH (08:37)
[2018-05-28] MEDS: Levetiracetam 500 mg/5mL 5mL UDSyr *for ORAL USE ONLY GT SCH ×2 (08:38→16:44)
[2018-05-28] MEDS: Benztropine 1 MG TAB GT SCH ×2 (08:38→16:44)
[2018-05-28] MEDS: Ferrous Sulfate 325 MG TAB PO SCH ×3 (08:38→20:43)
[2018-05-28] MEDS: Multivitamin w/ Minerals Tab GT SCH (08:39)
[2018-05-28] MEDS: Lactobacillus Rhamnosus GG 15 Billion CFU CAP.SPRINK GT SCH (08:39)
[2018-05-28] MEDS: Saline 0.65% Nasal Spray NS SCH ×4 (08:40→23:28)
[2018-05-28] MEDS: Fluticasone Propionate Nasal 1 SPR SPR NS SCH (08:41)
[2018-05-28] MEDS: Petrolatum (White) Oint 0.6 Oz Tube TP SCH ×2 (08:43→16:45)
[2018-05-28] MEDS: ONFI 20 MG GT SCH ×2 (09:11→16:45)
[2018-05-28] MEDS: Miconazole Nitrate 2% Cream 30gm TP SCH ×2 (09:12→16:45)
--- NOTE | 2018-05-28 14:08 | Internal Medicine Prog Note ---
Internal Medicine Subjective - Subjective Patient seen and examined:: with staff, chart reviewed Patient is:: awake, non-verbal, non-interactive, in bed, confused Patient Complaints of:: congestion, unable to sleep Per staff patient has:: no adverse event, no episodes of fall, poor appetite, agitated, noncompliant, tolerating meds Internal Medicine Objective - Results Result Diagrams: 05/28/18 07:24 05/28/18 07:24 Recent Labs: Laboratory Last Values WBC 6.6 Th/cmm (4.8-10.8) 05/28/18 07:24 RBC 4.00 Mil/cmm (4.30-5.70) L 05/28/18 07:24 Hgb 12.6 gm/dL (12-16) 05/28/18 07:24 Hct 37.9 % (41.0-60) L 05/28/18 07:24 MCV 94.8 fl (80-99) 05/28/18 07:24 MCH 31.5 pg (26.0-30.0) H 05/28/18 07:24 MCHC Differential 33.2 pg (28.0-36.0) 05/28/18 07:24 RDW 13.6 % (11.5-20.0) 05/28/18 07:24 Plt Count 202 Th/cmm (150-400) 05/28/18 07:24 MPV 7.7 fl 05/28/18 07:24 Add Manual Diff YES 05/27/18 06:30 Neutrophils % 62.3 % (40.0-80.0) 05/28/18 07:24 Band Neutrophils % 0 % (0-10) 05/27/18 06:30 Lymphocytes % 18.3 % (20.0-50.0) L 05/28/18 07:24 Monocytes % 9.1 % (2.0-10.0) 05/28/18 07:24 Eosinophils % 7.3 % (0.0-5.0) H 05/28/18 07:24 Basophils % 3.0 % (0.0-2.0) H 05/28/18 07:24 Neutrophils (Manual) 74 % (40-80) 05/27/18 06:30 Lymphocytes 13 % (20-50) L 05/27/18 06:30 Monocytes 11 % (2-10) H 05/27/18 06:30 Eosinophils 2 % (0-5) 05/27/18 06:30 Basophils 0 % (0-3) 05/27/18 06:30 Sodium 137 mEq/L (136-145) 05/28/18 07:24 Potassium 4.5 mEq/L (3.5-5.1) 05/28/18 07:24 Chloride 103 mEq/L (98-107) 05/28/18 07:24 Carbon Dioxide 26.7 mEq/L (21.0-31.0) 05/28/18 07:24 Anion Gap 11.8 (7.0-16.0) 05/28/18 07:24 BUN 16 mg/dL (7-25) 05/28/18 07:24 Creatinine 0.7 mg/dL (0.7-1.3) 05/28/18 07:24 Est GFR ( Amer) > 60.0 ml/min (>90) 05/28/18 07:24 Est GFR (Non-Af Amer) > 60.0 ml/min 05/28/18 07:24 BUN/Creatinine Ratio 22.9 05/28/18 07:24 Glucose 110 mg/dL (70-105) H 05/28/18 07:24 Calcium 9.1 mg/dL (8.6-10.3) 05/28/18 07:24 Phosphorus 4.1 mg/dL (2.5-5.0) 05/25/18 18:30 Magnesium 2.0 mg/dL (1.9-2.7) 05/27/18 06:30 Total Bilirubin 0.3 mg/dL (0.3-1.0) 05/28/18 07:24 AST 21 U/L (13-39) 05/28/18 07:24 ALT 16 U/L (7-52) 05/28/18 07:24 Alkaline Phosphatase 125 U/L (34-104) H 05/28/18 07:24 B-Natriuretic Peptide 66.3 pg/mL (5.0-100.0) 05/27/18 06:30 Total Protein 6.2 gm/dL (6.0-8.3) 05/28/18 07:24 Albumin 3.4 gm/dL (4.2-5.5) L 05/28/18 07:24 Globulin 2.8 gm/dL 05/28/18 07:24 Albumin/Globulin Ratio 1.2 (1.0-1.8) 05/28/18 07:24 Urine Source CLEAN C 05/25/18 18:15 Urine Color YELLOW 05/25/18 18:15 Urine Clarity HAZY (CLEAR) 05/25/18 18:15 Urine pH 7.0 (4.6 - 8.0) 05/25/18 18:15 Ur Specific [place] <= 1.005 (1.005-1.030) 05/25/18 18:15 Urine Protein NEGATIVE mg/dL (NEGATIVE) 05/25/18 18:15 Urine Glucose (UA) 100 mg/dL (NEGATIVE) H 05/25/18 18:15 Urine Ketones NEGATIVE mg/dL (NEGATIVE) 05/25/18 18:15 Urine Blood MODERATE (NEGATIVE) H 05/25/18 18:15 Urine Nitrate NEGATIVE (NEGATIVE) 05/25/18 18:15 Urine Bilirubin NEGATIVE (NEGATIVE) 05/25/18 18:15 Urine Urobilinogen 0.2 E.U./dL (0.2 - 1.0) 05/25/18 18:15 Ur Leukocyte Esterase MODERATE (NEGATIVE) H 05/25/18 18:15 Urine RBC 5-10 /hpf (0-5) H 05/25/18 18:15 Urine WBC 10-25 /hpf (0-5) H 05/25/18 18:15 Ur Epithelial Cells FEW /lpf (FEW) 05/25/18 18:15 Urine Bacteria 3+ /hpf (NONE SEEN) H 05/25/18 18:15 Levetiracetam 44.1 ug/mL (10.0-40.0) H 05/25/18 18:30 - Physical Exam Vitals and I&O: Vital Signs Temp 96.6 F 05/28/18 11:59 Pulse 64 05/28/18 11:59 Resp 18 05/28/18 13:00 BP 144/79 05/28/18 11:59 Pulse Ox 98 05/28/18 11:59 Intake & Output 05/27/18 05/28/18 05/28/18 18:59 06:59 18:59 Intake Total 200 920 Output Total 800 1700 Balance -600 -780 Weight (lbs) 75.251 kg 79.605 kg Intake: Intake, IV Amount 200 100 Piperacillin Sodium/ 200 100 Tazobact 4.5 gm In Sodium Chloride 0.9% 100 ml @ 200 mls/hr IV 0000,0800, 1600 [facility] Rx#:[id number] Oral 0 Tube Feeding 720 Other 100 Output: Urine 1200 Stool 500 Other 800 Other: Stool Characteristics Liquid Weight Source Bedscale Bedscale Active Medications: Current Medications Acetaminophen (Tylenol 650mg/20.3ml Suspension) 650 mg PO Q4H PRN PRN Reason: Mild Pain 1-3/Fever above 101 Stop: 07/24/18 21:55 Last Admin: 05/26/18 22:27 Dose: 650 mg Albuterol Sulfate (Albuterol 2.5mg/3ml Neb Ud) 2.5 mg HHN Q2HRT PRN PRN Reason: Shortness of Breath or Wheeze Stop: 07/24/18 21:55 Benztropine Mesylate (Cogentin) 1 mg GT BID [facility] Stop: 07/25/18 08:59 Last Admin: 05/28/18 08:38 Dose: 1 mg Calcium Carbonate (Calcium Carb) 600 mg GT BID [facility] Stop: 07/25/18 08:59 Last Admin: 05/28/18 08:39 Dose: 600 mg Chlorhexidine Gluconate (Peridex) 15 ml MM HS [facility] Stop: 07/25/18 20:59 Last Admin: 05/27/18 21:53 Dose: 15 ml Clonazepam (Klonopin) 1 mg GT BID [facility] Stop: 07/25/18 08:59 Last Admin: 05/28/18 08:38 Dose: 1 mg Escitalopram Oxalate (Lexapro) 20 mg GT DAILY [facility]; Protocol Stop: 07/25/18 08:59 Last Admin: 05/28/18 08:38 Dose: 20 mg Famotidine (Pepcid) 20 mg GT BID [facility] Stop: 07/25/18 08:59 Last Admin: 05/28/18 08:38 Dose: 20 mg Ferrous Sulfate (Iron) 325 mg PO TID [facility] Stop: 07/25/18 08:59 Last Admin: 05/28/18 13:50 Dose: 325 mg Finasteride (Proscar) 5 mg GT DAILY [facility]; Protocol Stop: 07/25/18 08:59 Last Admin: 05/28/18 08:37 Dose: 5 mg Fluticasone Propionate (Flonase) 2 spr NS DAILY [facility] Stop: 07/25/18 08:59 Last Admin: 05/28/18 08:41 Dose: 2 spr Folic Acid (Folate) 1 mg GT DAILY [facility] Stop: 07/25/18 08:59 Last Admin: 05/28/18 08:38 Dose: 1 mg Guaifenesin/Dextromethorphan (Robitussin Dm) 10 ml GT Q4H PRN PRN Reason: Cough Stop: 07/24/18 21:48 Hydrocortisone (Hydrocortisone 1%) 1 appl TP BID [facility] Stop: 07/25/18 16:59 Last Admin: 05/28/18 08:41 Dose: 1 appl Piperacillin Sod/Tazobactam (Sod 4.5 gm/ Sodium Chloride) 100 mls @ 200 mls/hr IV 0000,0800,1600 [facility] Stop: 07/25/18 00:00 Last Admin: 05/28/18 08:38 Dose: 200 mls/hr Dextrose/Sodium Chloride (D5-0.9%Ns) 1,000 mls @ 40 mls/hr IV .Q24H [facility] Stop: 07/26/18 13:44 Last Admin: 05/27/18 16:17 Dose: 40 mls/hr Ibuprofen (Motrin) 600 mg GT Q6H PRN PRN Reason: BACK PAIN Stop: 07/24/18 21:48 Ipratropium Odell (Atrovent Neb 0.5mg/2.5ml) 0.5 mg HHN BIDRT [facility] Stop: 07/25/18 07:29 Last Admin: 05/28/18 06:54 Dose: 0.5 mg Lactobacillus Rhamnosus (Culturelle 15b) 1 each GT DAILY [facility] Stop: 07/25/18 08:59 Last Admin: 05/28/18 08:39 Dose: 1 each Lactulose (Cephulac) 20 gm GT DAILY [facility] Stop: 07/25/18 08:59 Last Admin: 05/28/18 08:37 Dose: 20 gm Lamotrigine (Lamictal) 200 mg GT DAILY [facility]; Protocol Stop: 07/25/18 08:59 Last Admin: 05/28/18 08:39 Dose: 200 mg Lamotrigine (Lamictal) 350 mg GT HS [facility]; Protocol Stop: 07/25/18 20:59 Last Admin: 05/27/18 21:52 Dose: 350 mg Levetiracetam (Keppra) 1,000 mg GT BID [facility] Stop: 07/25/18 08:59 Last Admin: 05/28/18 08:38 Dose: 1,000 mg Levothyroxine Sodium (Synthroid) 0.125 mg GT QDAC [facility] Stop: 07/25/18 07:29 Last Admin: 05/28/18 06:57 Dose: 0.125 mg Loratadine (Claritin) 10 mg GT DAILY [facility] Stop: 07/25/18 08:59 Last Admin: 05/28/18 08:38 Dose: 10 mg Lorazepam (Ativan) 1 mg IV Q4H PRN; Protocol PRN Reason: Seizure Stop: 07/24/18 21:55 Methotrexate (Methotrexate) 10 mg GT QTUE [facility]; Protocol Stop: 07/25/18 07:29 Last Admin: 05/26/18 06:50 Dose: 10 mg Miconazole Nitrate (Micatin 2%) 1 appl TP BID [facility] Stop: 07/27/18 08:59 Last Admin: 05/28/18 09:12 Dose: 1 appl Miscellaneous (Brinzolamide/Brimonidine Tart [Simbrinza 1%-0.2% Eye Drops]) 1 drop EACH EYE BID [facility] Stop: 07/25/18 08:59 Last Admin: 05/27/18 16:15 Dose: Not Given Ondansetron HCl (Zofran) 4 mg IV Q8H PRN PRN Reason: Nausea / Vomiting Stop: 07/24/18 21:55 Patient Own Med-Onfi ((Clobazam) 20mg Tab) 1 GT BID [facility] Stop: 07/25/18 16:59 Last Admin: 05/28/18 09:11 Dose: 1 Patient Own Med - Apitom ( Eslicarbazepine 800 Mg) 1 GT QPM [facility] Stop: 07/25/18 16:59 Last Admin: 05/27/18 16:14 Dose: 1 Petrolatum (Vaseline Oint) 1 appl TP BID [facility] Stop: 07/27/18 08:59 Last Admin: 05/28/18 08:43 Dose: 1 appl Quetiapine Fumarate (Seroquel) 25 mg GT HS [facility]; Protocol Stop: 07/25/18 20:59 Last Admin: 05/27/18 21:54 Dose: 25 mg Rifaximin (Xifaxan) 550 mg GT BID [facility] Stop: 07/25/18 08:59 Last Admin: 05/28/18 08:39 Dose: 550 mg Sodium Chloride (Raoul Nasal [place]) 1 spr NS QID [facility] Stop: 07/25/18 08:59 Last Admin: 05/28/18 13:50 Dose: 1 spr Sodium Chloride (Nacl Tab) 1 gm GT BID [facility] Stop: 07/25/18 08:59 Last Admin: 05/28/18 08:43 Dose: 1 gm Tamsulosin HCl (Flomax) 0.4 mg GT HS [facility] Stop: 07/25/18 20:59 Last Admin: 05/27/18 21:53 Dose: 0.4 mg General: congested, demented, edematous HEENT: NC/AT, PERRLA, EOMI, dry oral mucosa, thinning hair, poor dentition Neck: Supple, No JVD, No thyromegaly Lungs: congested, wheezing Cardiovascular: RRR, Normal S1, Normal S2 Abdomen: soft, globular, positive bowel sound Extremities: excoriation Neurological: no change, lethargic, unable to follow command - Procedures Procedures: Procedures Procedure Code Date BYPASS ILEUM TO CUTANEOUS, OPEN APPROACH [id number] 02/01/18 CHANGE FEEDING DEVICE IN UP INTEST TRACT, WAD COMPRESSOR OPERATOR ADJUSTER APPROACH [id number] 11/24/17 CHANGE GASTROSTOMY TUBE 39216 11/01/17 DRAINAGE OF SMALL INTESTINE, OPEN APPROACH [id number] 11/01/17 EXCISION OF SMALL INTESTINE, OPEN APPROACH [id number] 02/01/18 EXPLORATION OF ABDOMEN 84156 11/01/17 FREEING OF BOWEL ADHESION 57214 11/01/17 ILEOSTOMY/JEJUNOSTOMY 41759 09/23/17 INSERTION OF ENDOTRACHEAL AIRWAY INTO TRACHEA, VIA OPENING [id number] 09/23/17 INSERTION OF FEEDING DEVICE INTO STOMACH, OPEN APPROACH [id number] 09/23/17 INTRODUCTION OF NUTRITIONAL INTO CENTRAL VEIN, PERC APPROACH [id number] 02/01/18 PARTIAL REMOVAL OF COLON 31947 09/23/17 PLACE GASTROSTOMY TUBE 94603 09/23/17 RELEASE PERITONEUM, OPEN APPROACH [id number] 02/01/18 RELEASE SMALL INTESTINE, OPEN APPROACH [id number] 11/01/17 REPAIR SMALL INTESTINE, OPEN APPROACH [id number] 11/01/17 RESECTION OF LARGE INTESTINE, OPEN APPROACH [id number] 09/23/17 RESPIRATORY VENTILATION, LESS THAN 24 CONSECUTIVE HOURS [id number] 09/23/17 SUTURE SMALL INTESTINE 08233 11/01/17 Internal Medicine Assmt/Plan - Assessment Assessment: ASSESSMENT AND PLAN: Uncontrolled seizure, leukocytosis, hyponatremia, hyperkalemia, with ileostomy, hypothyroidism, cerebral palsy, mental retardation. - Plan Plan: The patient on aggressive IV hydration, continue IV antibiotic. Continue on antiplatelet medication. We will have refer the patient to Neurology. Continue with current care with followup consult and recommendations. Nutritional Asmnt/Malnutr-PDOC - Dietary Evaluation Malnutrition Findings (Please click <Entered> for more info): Nutritional Asmnt/Malnutrition Start: 05/26/18 12: 38 Text: Status: Complete Freq: Protocol: Document 05/26/18 12:38 SHERRI (Rec: 05/26/18 12:50 SHERRI [email or web address]) Nutritional Asmnt/Malnutrition Patient General Information Nutritional Screening High Risk Diagnosis fever, uncontrolled seizure, sepsis Pertinent Medical Hx/Surgical Hx seizures, ileostomy, PEG/Gtube Subjective Information Pt sleeping and visually verified no TF running at time of visit. Pt was NPO and scheduled to start TF today. Current Diet Order/ Nutrition Support Tube Feeding: Jevity 1.2 @ 90 ml/hr x 18 hrs Pertinent Medications calcium carb, D5-0.9%ns, pepcid, iron, folate, culturelle 15b, piperacillin, seroquel, Nacl tab Pertinent Labs 05/25: Na 131, K 5.9, Cl 96, Alb 4.0, Cr 0.6 Nutritional Hx/Data Height 1.78 m Height (Calculated Centimeters) 177.8 Current Weight (lbs) 66.678 kg Weight (Calculated Kilograms) 66.7 Weight (Calculated Grams) 48573.1 [place] Body Weight 166 lb Body Mass Index (BMI) 21.1 Weight Status Approriate GI Symptoms GI Symptoms None Last BM none noted Difficult in: Swallowing Food Allergies No Skin Integrity/Comment: rash to left foot and right abdomen, skin tear to right foot, gastrostomy to left upper quadrant, kenny 12 Estimated Nutritional Goals BEE in Kcals: Using Current wt Calories/Kcals/Kg 27-32 Kcals Calculated 0357-7079 Protein: Using Current wt Protein g/k.2-1.4 Protein Calculated 80-94 g Fluid: ml 7516-4587 (1 ml/kcal) Nutritional Problem 2. Problem Problem Increased nutrient needs Etiology metabolic stress Signs/Symptoms: dx of sepsis 1. Problem Problem Altered nutrition related lab values Etiology electrolyte imbalance Signs/Symptoms: Na 131, K 5.9, Cl 96 Malnutrition Alert Is there a minimum of two criteria No selected? Query Text:Check all the applicable criteria. A minimum of two criteria are recommended for diagnosis of either severe or non-severe malnutrition. Malnutrition Related to Morbid Obesity Malnutrition related to morbid obesity No Intervention/Recommendation Comments 1. Continue with current TF regimen of Jevity 1.2 @ 90 ml/ hr x 18 hrs as tolerated. It provides 1944 kcal, ~90g protein, 1307 ml free water, meeting 100% of nutritional needs 2. MD to replace electrolytes as needed 3. Monitor TF rate, tolerance, wt, skin integrity and labs 4. F/U as high risk in 2-3 days, 05/28- Expected Outcomes/Goals Expected Outcomes/Goals 1. Pt to meet >95% of nutritional needs via nutrition support with tolerance 2. Wt stability, skin integrity to improve, labs to approach normal limits Reviewed by Zulema Sidhu RD
[2018-05-28] MEDS: [UNRECOGNIZED DRUG - OTHER] GT SCH (16:45)
[2018-05-28] MEDS: ESLICARBAZEPINE GT SCH (16:45)
[2018-05-28] MEDS: Chlorhexidine Gluconate 0.12% 15mL Mouthwash MM SCH (20:47)
[2018-05-29] MEDS: Levothyroxine 0.125 Mg Tab GT SCH (06:38)
[2018-05-29] MEDS: Ipratropium Neb 0.5 mg/2.5 mL UD HHN SCH (06:57)
[2018-05-29] MEDS: Levetiracetam 500 mg/5mL 5mL UDSyr *for ORAL USE ONLY GT SCH ×2 (09:21→16:24)
[2018-05-29] MEDS: Lactulose 10 Gm/15 mL 30mL UDC GT SCH (09:21)
[2018-05-29] MEDS: Lactobacillus Rhamnosus GG 15 Billion CFU CAP.SPRINK GT SCH (09:22)
[2018-05-29] MEDS: Ferrous Sulfate 325 MG TAB PO SCH ×3 (09:22→13:58)
[2018-05-29] MEDS: ONFI 20 MG GT SCH ×2 (09:23→16:21)
[2018-05-29] MEDS: Fluticasone Propionate Nasal 1 SPR SPR NS SCH (09:23)
[2018-05-29] MEDS: Benztropine 1 MG TAB GT SCH ×2 (09:23→16:24)
[2018-05-29] MEDS: Miconazole Nitrate 2% Cream 30gm TP SCH ×2 (09:23→16:25)
[2018-05-29] MEDS: Petrolatum (White) Oint 0.6 Oz Tube TP SCH ×2 (09:24→16:25)
[2018-05-29] MEDS: Saline 0.65% Nasal Spray NS SCH ×3 (09:24→16:25)
[2018-05-29] MEDS: Multivitamin w/ Minerals Tab GT SCH (09:25)
--- NOTE | 2018-05-29 15:36 | Discharge Summary ---
DATE OF DISCHARGE: 05/29/2018 CHIEF COMPLAINT: Uncontrolled seizure. FINAL DIAGNOSES: Uncontrolled seizure, leukocytosis, urinary tract infection, cerebral palsy, hyponatremia, ileostomy, G-tube, hypothyroidism, mental retardation. HISTORY OF PRESENT ILLNESS: This is a 62-year-old male with history of cerebral palsy, mental retardation, seizure, history of or megacolon with ileostomy, admitted from nursing facility secondary to uncontrolled seizure having about 10 times per day. The patient on Zyvox in the ER and noted to have a urinary tract infection, admitted for further management. PHYSICAL EXAMINATION: VITAL SIGNS: Blood pressure 130/84, respiration 18, pulse rate 73, temperature 98.0. GENERAL: Elderly male, appears chronically ill. NECK: Positive neck contracture. LUNGS: Equal breath sounds, otherwise clear to auscultation. HEART: Regular rate and rhythm without appreciable murmur. ABDOMEN: Soft, nontender. EXTREMITIES: No clubbing or cyanosis. Positive contractures atrophy, possible ileostomy and G-tube. NEUROLOGIC: Limited. HOSPITAL COURSE: The patient was admitted to medical floor, continued on IV hydration and IV antibiotic. The patient has remained seizure free for the last 48 hours. The patient was seen by Dr. Morse. The patient to be discharged. Continue antibiotic regimen continued. CONDITION ON DISCHARGE: Fair. DISCHARGE INSTRUCTIONS: The patient to continue on antibiotic and on current antiepileptic medications. We will continue to follow. JOB# [id number]
[2018-05-29] MEDS: ESLICARBAZEPINE GT SCH (16:21)
[2018-05-29] MEDS: [UNRECOGNIZED DRUG - OTHER] GT SCH (16:21)
== END 2018-05-29 17:00 | disposition home or self-care (01) | DRG 100 ==
LOC: ER 18:10 → TELE 19:57
PROVIDERS: ADMIT Internal Medicine; ATTEND Internal Medicine
DX: G40.909 Epilepsy, unspecified, not intractable, without status epilepticus (principal); R53.2 Functional quadriplegia; N39.0 Urinary tract infection, site not specified; E87.1 Hypo-osmolality and hyponatremia; F72 Severe intellectual disabilities; E03.9 Hypothyroidism, unspecified; Z93.2 Ileostomy status; G80.9 Cerebral palsy, unspecified; E87.5 Hyperkalemia; Z93.1 Gastrostomy status; Z88.8 Allergy status to other drugs, medicaments and biological substances; F63.9 Impulse disorder, unspecified; D64.9 Anemia, unspecified; I45.10 Unspecified right bundle-branch block; R13.10 Dysphagia, unspecified
CPT/HCPCS: 36415-UA; 71045-TC; 80053-TC; 80299-90; 81001-TC; 83735-TC; 83880-TC; 84100-TC; 85007-TC; 85025-TC; 87086-90; 90779; 93005; 94640; 94760; J2060; J2543; J7042; J8610; X3401; Z7610

== ENCOUNTER 2018-10-31 11:12 | Inpatient (IN) | payer MEDICARE, MEDICAID ==
--- NOTE | 2018-10-31 11:39 | ED Physician Chart ---
ED Chief Complaint/HPI - Patient Information Date Seen:: 10/31/18 Time Seen:: 11:27 Chief Complaint:: poor intake History of Present Illness:: this is a 63yo male boarding cerebral palsy patient sent to ER for an evaluation of his condition and his poor intake 0ver the last three days. Allergies:: Allergies Allergy/AdvReac Type Severity Reaction Status Date / Time buspirone [From BuSpar] Allergy Verified 10/31/18 11:33 divalproex sodium Allergy Verified 10/31/18 11:33 [From Depakote] fluoxetine Allergy Verified 10/31/18 11:33 magnesium hydroxide Allergy Verified 10/31/18 11:33 [From Milk of Magnesia] metoclopramide Allergy Verified 10/31/18 11:33 ondansetron Allergy Verified 10/31/18 11:33 Historian:: Other (home care specialist) Review:: Nurse's Note Reviewed, Old Chart Reviewed, Transfer documents Reviewed , Patient unable to respond ED Review of Systems - Review of Systems General/Constitutional: No fever, No chills, No weight loss, No weakness, No diaphoresis, No edema, No loss of appetite, Other (patient cannot speak) Skin: No skin lesions, No rash, No bruising Head: No headache, No light-headedness Eyes: No loss of vision, No pain, No diplopia ENT: No earache, No nasal drainage, No sore throat, No tinnitus Neck: No neck pain, No swelling, No thyromegaly, No stiffness, No mass noted Cardio Vascular: No chest pain, No palpitations, No PND, No orthopnea, No edema Pulmonary: No SOB, No cough, No sputum, No wheezing GI: No nausea, No vomiting, No diarrhea, No pain, No melena, No hematochezia, No constipation, No hematemesis G/U: No dysuria, No frequency, No hematuria Musculoskeletal: No bone or joint pain, No back pain, No muscle pain Endocrine: No polyuria, No polydipsia Psychiatric: No prior psych history, No depression, No anxiety, No suicidal ideation Hematopoietic: No bruising, No lymphadenopathy Allergic/Immuno: No urticaria, No angioedema Neurological: No syncope, No focal symptoms, No weakness, No paresthesia, No headache, No seizure, No dizziness, No confusion, No vertigo ED Past Medical History - Past Medical History Obtainable: Yes Past Medical History: PUD/GERD, Seizures, Arthritis, Dementia Family History: None Social History: Non Smoker, No Alcohol, No Drug Use, Single, Care Facility Surgical History: PEG/GTube, other (colectomy) Psychiatricy History: Dementia Medication: Reviewed Family Medical History - Family Member Mother History Unknown: Yes Ethnicity: Non- Living Status: Unknown Father History Unknown: Yes Ethnicity: Unknown Living Status: Unknown ED Physical Exam - Physical Examination General/Constitutional: Awake, Well-developed, well-nourished, Alert, No distress, GCS 15, Non-toxic appearing, Ambulatory Other Gen/Cons comments:: this patient is disoriented times four with spastic paralysis of all four extremities. Head: Atraumatic Eyes: Lids, conjuctiva normal, PERRL, EOMI Skin: Nl inspection, No rash, No skin lesions, No ecchymosis, Well hydrated, No lymphadenopathy ENMT: External ears, nose nl, Nasal exam nl, Lips, teeth, gums nl Neck: Nontender, Full ROM w/o pain, No JVD, No nuchal rigidity, No bruit, No mass, No stridor Respiratory: Nl effort/Exclusion, Clear to Auscultation, No Wheeze/Rhonchi/ Rales (there are rhonchi heard bilaterally) Cardio Vascular: RRR, No murmur, gallop, rubs, NL S1 S2 GI: No tenderness/rebounding/guarding, No organomegaly, No hernia, Normal BS's, Nondistended, No mass/bruits, No McBurney tenderness : No CVA tenderness Extremities: No tenderness or effusion, Full ROM, normal strength in all extremities, No edema, Normal digits & nails Neuro/Psych: Alert/oriented, DTR's symmetric, Normal sensory exam, Normal motor strength, Judgement/insight normal, Mood normal, Normal gait, No focal deficits Misc: Normal back, No paraspinal tenderness ED Assessment - Assessment General Assessment: seizure disorder cerebral palsy ED Septic Shock - . Is Septic Shock (SBP<90, OR Lactate>4 mmol\L) present?: No ED Reassessment (Disposition) - Reassessment Reassessment Condition:: Unchanged - Diagnosis Diagnosis:: seizure disorder dehydration urinary tract infection cerebral palsy - Patient Disposition Discharge/Transfer:: Acute Care w/in this hosp Discussion with Medical Provider:: low cindy level Admitted to:: Med/Surg Admitting Medical Physician:: Zack Rick Condition at Disposition:: Stable
[2018-10-31 11:57] LABS: % EOSINOPHILS 2.3 % (0.0-5.0); % LYMPHOCYTES 15.6 % (20.0-50.0); % MONOCYTES 8.4 % (2.0-10.0); % NEUTROPHILS 73.7 % (40.0-80.0); EOSINOPHILE ABSOLUTE 0.2 Th/cmm (0.1-0.4); HEMATOCRIT 41.8 % (41.0-60); HEMOGLOBIN 14.1 gm/dL (12-16); LYMPHOCYTE ABSOLUTE 1.5 Th/cmm (1.5-3.0); MEAN CELL VOLUME 93.7 fl (80-99); MEAN CORPUSCULAR HEMOGLOBIN 31.6 pg (26.0-30.0); MEAN CORPUSCULAR HGB CONC 33.7 pg (28.0-36.0); MONOCYTE ABSOLUTE 0.8 Th/cmm (0.3-1.0); NEUTROPHILE ABSOLUTE 7.1 Th/cmm (1.8-8.0); PLATELET COUNT 233 Th/cmm (150-400); RED BLOOD COUNT 4.46 Mil/cmm (4.30-5.70); RED CELL DISTRIBUTION WIDTH 12.5 % (11.5-20.0); WHITE BLOOD COUNT 9.6 Th/cmm (4.8-10.8)
[2018-10-31 12:08] LABS: INR 1.01 (0.5-1.4); PROTHROMBIN TIME (TEST) 10.5 SECONDS (9.5-11.5)
[2018-10-31 12:18] LABS: ALB/GLOB RATIO 1.3 (1.0-1.8); ALKALINE PHOSPHATASE 157 U/L (34-104); ANION GAP 12.5 (7.0-16.0); BILIRUBIN,TOTAL 0.4 mg/dL (0.3-1.0); BUN - UREA NITROGEN 12 mg/dL (7-25); CALCIUM SERUM 9.2 mg/dL (8.6-10.3); CARBON DIOXIDE 23.8 mEq/L (21.0-31.0); CHLORIDE 92 mEq/L (98-107); CHOLESTEROL 132 mg/dL (<200); CREATININE - SERUM 0.6 mg/dL (0.7-1.3); GFR AFRICAN-AMERICAN > 60.0 ml/min (>90); GFR NON AFRICAN-AMERICAN > 60.0 ml/min; GLUCOSE 121 mg/dL (70-105); HDL -HIGH DENSITY LIPOPROTEIN 44 mg/dL (23-92); POTASSIUM SERUM 4.3 mEq/L (3.5-5.1); SGOT 18 U/L (13-39); SGPT/ALT 14 U/L (7-52); SODIUM SERUM 124 mEq/L (136-145); TOTAL PROTEIN,SERUM 7.2 gm/dL (6.0-8.3); TRIGLYCERIDES 117 mg/dL (<150)
[2018-10-31] MEDS ORDERED: Sodium Chloride 0.9% 1,000 ML IV ONE (13:13)
[2018-10-31 13:55] LABS: URINE SOURCE FOLEY PORT
[2018-10-31 13:58] LABS: URINE BILIRUBIN NEGATIVE (NEGATIVE); URINE BLOOD TRACE (NEGATIVE); URINE CLARITY CLEAR (CLEAR); URINE COLOR YELLOW; URINE GLUCOSE (UA) NEGATIVE (NEGATIVE); URINE KETONE TRACE mg/dL (NEGATIVE); URINE LEUKOCYTE ESTERASE MODERATE (NEGATIVE); URINE MICROSCOPIC INDICATED? YES; URINE NITRATE NEGATIVE (NEGATIVE); URINE PH 6.5 (4.6 - 8.0); URINE PROTEIN NEGATIVE (NEGATIVE); URINE UROBILINOGEN 0.2 E.U./dL (0.2 - 1.0)
[2018-10-31 14:04] LABS: URINE BACTERIA 2+ /hpf (NONE SEEN); URINE COARSE GRANULAR CAST 0-2 /lpf (NONE SEEN); URINE EPITHELIAL CELLS FEW /lpf (FEW)
--- NOTE | 2018-10-31 14:08 | History & Physical ---
ADMIT DATE: 10/31/2018 DICTATED FOR: Dr. Zack Rick. CHIEF COMPLAINT: Lethargic. HISTORY OF PRESENT ILLNESS: This is a 63-year-old male who is well known to me from [facility]. I was called this morning due to patient being more lethargic than usual. The patient has been afebrile. There has been a recent change in patient's Seroquel dosage. In the ER, the patient was noted to be hyponatremic with a sodium level of 124. For this reason, the patient will be admitted to the telemetry unit. PAST MEDICAL HISTORY: MR, cerebral palsy, seizures, megacolon with ileostomy. PAST SURGICAL HISTORY: Spinal stimulator, PEG. ALLERGIES: DEPAKOTE, FLUOXETINE, MAGNESIUM HYDROXIDE, REGLAN, ZOFRAN. FAMILY HISTORY: Noncontributory. SOCIAL HISTORY: The patient is a intermediate resident requiring 24-hour nursing total care. REVIEW OF SYSTEMS: Unable to obtain at this time. PHYSICAL EXAMINATION: GENERAL: Elderly male, well-developed, well-nourished, no apparent distress. VITAL SIGNS: Temperature 96.8, heart rate 70, blood pressure 133/73, respirations 19, O2 92%. HEENT: Head normocephalic, atraumatic. NECK: Supple. No mass. LUNGS: Clear bilaterally. HEART: Regular rhythm. ABDOMEN: Soft, nontender. LABORATORY DATA: WBC 9.6, H and H 14.1 and 41.8, platelet of 233. Sodium 124, potassium 4.3, chloride 92, BUN 12, creatinine 0.6. Troponin 0.01. Albumin 4.0. ASSESSMENT: Hyponatremia, lethargy, altered mental status, seizure disorder, cerebral palsy. PLAN: The patient to be admitted to the telemetry unit. We will give the patient IV fluids of normal saline. We will hold Seroquel for now until the patient is much more awake and alert and continue the patient's home medications. We will get followup labs for tomorrow morning. We will continue to monitor this patient. JOB# [id number]
[2018-10-31] MEDS ORDERED: Guaifenesin DM 10 ML UDC GT PRN (16:44)
[2018-10-31] MEDS ORDERED: guaiFENesin 200 MG/10 ML UDC PO PRN (16:44)
[2018-10-31] MEDS ORDERED: Ipratropium Neb 0.5 mg/2.5 mL UD HHN PRN (16:44)
[2018-10-31] MEDS ORDERED: Albuterol Nebulizer 2.5mg/3mL HHN PRN (16:44)
[2018-10-31] MEDS ORDERED: ACIDOPHILUS GT SCH (17:00)
[2018-10-31] MEDS ORDERED: Non-Formulary Item 1 EA (Rifaximin [Xifaxan] 550 MG) GT SCH (17:00)
[2018-10-31] MEDS ORDERED: BULGARICUS GT SCH (17:00)
[2018-10-31] MEDS ORDERED: CLONAZEPAM 1 MG GT SCH (17:00)
[2018-10-31] MEDS: Ferrous Sulfate 325 MG TAB PO SCH ×2 (17:00→22:08)
[2018-10-31] MEDS: Haloperidol Lactate Oral sol. 2 mg/mL Udc GT SCH (17:00)
[2018-10-31] MEDS: Benztropine 1 MG TAB GT SCH (17:00)
[2018-10-31 17:27] VITALS: BP 149/79
[2018-10-31] MEDS: Non-Formulary Item 1 EA (Brinzolamide/Brimonidine Tart [Simbrinza 1%-0.2% Eye Drops] 1 DRO EACH EYE SCH (18:26)
[2018-10-31] MEDS: Carbamide Peroxide Otic Soln 15 mL Bottle EACH EAR SCH (18:26)
[2018-10-31] MEDS: CLOBAZAM 20 MG GT SCH (18:27)
[2018-10-31] MEDS: Non-Formulary Item 1 EA (Ranitidine Hcl [Ranitidine Hcl] 150 MG) GT SCH (18:27)
[2018-10-31] MEDS: ESLICARBAZEPINE ACETATE 800 MG PO SCH (18:27)
[2018-10-31] MEDS: TIMOLOL MALEATE EACH EYE SCH (18:27)
[2018-10-31] MEDS: Sodium Chloride 0.9% 1,000 ML IV SCH (19:45)
[2018-11-01 05:47] LABS: BASOPHILE ABSOLUTE 0.1 Th/cumm (0-0.2); EOSINOPHILE ABSOLUTE 0.2 Th/cmm (0.1-0.4); HEMATOCRIT 40.3 % (41.0-60); HEMOGLOBIN 13.3 gm/dL (12-16); LYMPHOCYTE ABSOLUTE 1.3 Th/cmm (1.5-3.0); MEAN CELL VOLUME 94.3 fl (80-99); MEAN CORPUSCULAR HEMOGLOBIN 31.2 pg (26.0-30.0); MEAN CORPUSCULAR HGB CONC 33.1 pg (28.0-36.0); MEAN PLATELET VOLUME 8.1 fl; MONOCYTE ABSOLUTE 1.3 Th/cmm (0.3-1.0); NEUTROPHILE ABSOLUTE 4.7 Th/cmm (1.8-8.0); PLATELET COUNT 218 Th/cmm (150-400); RED BLOOD COUNT 4.27 Mil/cmm (4.30-5.70); RED CELL DISTRIBUTION WIDTH 12.6 % (11.5-20.0); WHITE BLOOD COUNT 7.6 Th/cmm (4.8-10.8)
[2018-11-01 06:13] LABS: ANION GAP 10.9 (7.0-16.0); BUN - UREA NITROGEN 7 mg/dL (7-25); CALCIUM SERUM 9.2 mg/dL (8.6-10.3); CARBON DIOXIDE 23.9 mEq/L (21.0-31.0); CHLORIDE 103 mEq/L (98-107); CREATININE - SERUM 0.5 mg/dL (0.7-1.3); GFR AFRICAN-AMERICAN > 60.0 ml/min (>90); GFR NON AFRICAN-AMERICAN > 60.0 ml/min; GLUCOSE 82 mg/dL (70-105); POTASSIUM SERUM 3.8 mEq/L (3.5-5.1); SODIUM SERUM 134 mEq/L (136-145)
[2018-11-01] MEDS ORDERED: Diatrizoate Meglumine/Diatri 30 mL Sol PO ONE (08:25)
[2018-11-01 08:48] LABS: BASOPHIL 1 % (0-3); EOSINOPHIL 1 % (0-5); LYMPHOCYTE 20 % (20-50); MONOCYTE 16 % (2-10); NEUTROPHILS 62 % (40-80); PLATELET ESTIMATE ADEQUATE (NORMAL)
--- NOTE | 2018-11-01 09:24 | Diagnostic Imaging Report ---
Upper GI (Limited) HISTORY: Gastrostomy tube placement Water-soluble contrast was instilled through patient's gastrostomy tube. The exam demonstrates opacification of the gastric lumen. IMPRESSION: 1. Confirmation of gastrostomy tube within the gastric lumen.
--- NOTE | 2018-11-01 09:52 | Diagnostic Imaging Report ---
Portable chest x-ray HISTORY: Cough The left upper chest is obscured by the patient's overlying head. The overall exam is limited due to difficulty in patient positioning. The heart appears enlarged. The left lower lobe and left hemidiaphragm are not well visualized. No other obvious focal processes. IMPRESSION: 1. Very limited exam due to difficulty in patient positioning. Incomplete visualization of the left lung as noted above. No obvious focal processes seen within the visualized areas.
--- NOTE | 2018-11-01 10:02 | Operative Report ---
DATE OF SURGERY: 11/01/2018 INPATIENT GASTROINTESTINAL PROCEDURE. NAME OF PROCEDURE: G-tube change. REFERRING PHYSICIAN: Dr. Rick. REASON FOR PROCEDURE: Malfunctioning G-tube, dysphagia. PREOPERATIVE DIAGNOSES: Malfunctioning G-tube, dysphagia. POSTOPERATIVE DIAGNOSIS: New 18-Bangladeshi gastrostomy tube placed. DESCRIPTION OF PROCEDURE: The patient was placed on his back. The old G-tube site was inspected and there seems to be a Suggs tube, keeping it open. The Suggs was removed and a new 18-B[place]hi gastrostomy tube was lubricated at the tip and inserted through the gastrocutaneous fistula, entering stomach lumen. Internal balloon was inflated with 15 mL of sterile saline. The outer phalange was secured in position. Procedure was then completed. COMPLICATIONS: None. FINDINGS: New 18-Bangladeshi gastrostomy tube placed. RECOMMENDATIONS: 1. KUB with Gastrografin to confirm placement. 2. If it is in stomach, may begin using it. 3. Check residual every 6 hours and hold greater than 100 mL. 4. Abdominal binder. Thank you for allowing me to participate. Please call me if any questions. JOB# [id number]
[2018-11-01] MEDS: Non-Formulary Item 1 EA (Brinzolamide/Brimonidine Tart [Simbrinza 1%-0.2% Eye Drops] 1 DRO EACH EYE SCH ×2 (10:30→17:44)
[2018-11-01] MEDS: CLOBAZAM 20 MG GT SCH ×2 (10:31→17:44)
[2018-11-01] MEDS: Non-Formulary Item 1 EA (Ranitidine Hcl [Ranitidine Hcl] 150 MG) GT SCH ×2 (10:31→17:44)
[2018-11-01] MEDS: ERGOCALCIFEROL GT SCH (10:31)
[2018-11-01] MEDS: TIMOLOL MALEATE EACH EYE SCH ×2 (10:31→17:44)
[2018-11-01] MEDS: Lactulose 10 Gm/15 mL 30mL UDC GT SCH (10:48)
[2018-11-01] MEDS: Levothyroxine 0.125 Mg Tab GT SCH (10:49)
[2018-11-01] MEDS: Benztropine 1 MG TAB GT SCH ×2 (10:49→17:37)
[2018-11-01] MEDS: Lactobacillus Rhamnosus GG 15 Billion CFU CAP.SPRINK GT SCH ×2 (10:49→17:37)
[2018-11-01] MEDS: Ferrous Sulfate 325 MG TAB PO SCH ×3 (10:50→21:49)
[2018-11-01] MEDS: Haloperidol Lactate Oral sol. 2 mg/mL Udc GT SCH ×2 (10:50→17:43)
[2018-11-01] MEDS: Carbamide Peroxide Otic Soln 15 mL Bottle EACH EAR SCH ×2 (10:51→17:43)
[2018-11-01] MEDS: Fluticasone Propionate Nasal 1 SPR SPR NS SCH (11:05)
[2018-11-01] MEDS: Sodium Chloride 0.9% 1,000 ML IV SCH (13:40)
--- NOTE | 2018-11-01 15:33 | Internal Medicine Prog Note ---
Internal Medicine Subjective - Subjective Service Date: 11/01/18 (patient GT was dislodged lastnight per nursing staff, GI was consulted and GT was replaced today. ) Patient seen and examined:: without staff Patient is:: awake, in bed Per staff patient has:: tolerating meds Internal Medicine Objective - Results Result Diagrams: 11/01/18 05:15 11/01/18 05:15 Recent Labs: Laboratory Last Values WBC 7.6 Th/cmm (4.8-10.8) 11/01/18 05:15 RBC 4.27 Mil/cmm (4.30-5.70) L 11/01/18 05:15 Hgb 13.3 gm/dL (12-16) 11/01/18 05:15 Hct 40.3 % (41.0-60) L 11/01/18 05:15 MCV 94.3 fl (80-99) 11/01/18 05:15 MCH 31.2 pg (26.0-30.0) H 11/01/18 05:15 MCHC Differential 33.1 pg (28.0-36.0) 11/01/18 05:15 RDW 12.6 % (11.5-20.0) 11/01/18 05:15 Plt Count 218 Th/cmm (150-400) 11/01/18 05:15 MPV 8.1 fl 11/01/18 05:15 Add Manual Diff YES 11/01/18 05:15 Neutrophils % 73.7 % (40.0-80.0) 10/31/18 11:44 Lymphocytes % 15.6 % (20.0-50.0) L 10/31/18 11:44 Monocytes % 8.4 % (2.0-10.0) 10/31/18 11:44 Eosinophils % 2.3 % (0.0-5.0) 10/31/18 11:44 Basophils % 0.0 % (0.0-2.0) 10/31/18 11:44 Neutrophils (Manual) 62 % (40-80) 11/01/18 05:15 Lymphocytes 20 % (20-50) 11/01/18 05:15 Monocytes 16 % (2-10) H 11/01/18 05:15 Eosinophils 1 % (0-5) 11/01/18 05:15 Basophils 1 % (0-3) 11/01/18 05:15 Platelet Estimate ADEQUATE (NORMAL) 11/01/18 05:15 PT 10.5 SECONDS (9.5-11.5) 10/31/18 11:44 INR 1.01 (0.5-1.4) 10/31/18 11:44 PTT (Actin FS) 25.0 SECONDS (26.0-38.0) L 10/31/18 11:44 Sodium 134 mEq/L (136-145) L 11/01/18 05:15 Potassium 3.8 mEq/L (3.5-5.1) 11/01/18 05:15 Chloride 103 mEq/L (98-107) 11/01/18 05:15 Carbon Dioxide 23.9 mEq/L (21.0-31.0) 11/01/18 05:15 Anion Gap 10.9 (7.0-16.0) 11/01/18 05:15 BUN 7 mg/dL (7-25) 11/01/18 05:15 Creatinine 0.5 mg/dL (0.7-1.3) L 11/01/18 05:15 Est GFR ( Amer) > 60.0 ml/min (>90) 11/01/18 05:15 Est GFR (Non-Af Amer) > 60.0 ml/min 11/01/18 05:15 BUN/Creatinine Ratio 14.0 11/01/18 05:15 Glucose 82 mg/dL (70-105) 11/01/18 05:15 POC Glucose 70 MG/DL (70 - 105) 10/31/18 16:28 Whole Bld Lactic Acid 0.91 mmol/L (0.60-1.99) 10/31/18 11:44 Calcium 9.2 mg/dL (8.6-10.3) 11/01/18 05:15 Total Bilirubin 0.4 mg/dL (0.3-1.0) 10/31/18 11:44 AST 18 U/L (13-39) 10/31/18 11:44 ALT 14 U/L (7-52) 10/31/18 11:44 Alkaline Phosphatase 157 U/L (34-104) H 10/31/18 11:44 Troponin I < 0.01 ng/mL (0.01-0.05) L 10/31/18 11:44 Total Protein 7.2 gm/dL (6.0-8.3) 10/31/18 11:44 Albumin 4.0 gm/dL (4.2-5.5) L 10/31/18 11:44 Globulin 3.2 gm/dL 10/31/18 11:44 Albumin/Globulin Ratio 1.3 (1.0-1.8) 10/31/18 11:44 Triglycerides 117 mg/dL (<150) 10/31/18 11:44 Cholesterol 132 mg/dL (<200) 10/31/18 11:44 LDL Cholesterol Direct 68 mg/dL (75-193) L 10/31/18 11:44 HDL Cholesterol 44 mg/dL (23-92) 10/31/18 11:44 TSH 2.06 uIU/ml (0.34-5.60) 10/31/18 11:44 Urine Source [place] 10/31/18 13:30 Urine Color YELLOW 10/31/18 13:30 Urine Clarity CLEAR (CLEAR) 10/31/18 13:30 Urine pH 6.5 (4.6 - 8.0) 10/31/18 13:30 Ur Specific [place] 1.015 (1.005-1.030) 10/31/18 13:30 Urine Protein NEGATIVE mg/dL (NEGATIVE) 10/31/18 13:30 Urine Glucose (UA) NEGATIVE mg/dL (NEGATIVE) 10/31/18 13:30 Urine Ketones TRACE mg/dL (NEGATIVE) 10/31/18 13:30 Urine Blood TRACE (NEGATIVE) 10/31/18 13:30 Urine Nitrate NEGATIVE (NEGATIVE) 10/31/18 13:30 Urine Bilirubin NEGATIVE (NEGATIVE) 10/31/18 13:30 Urine Urobilinogen 0.2 E.U./dL (0.2 - 1.0) 10/31/18 13:30 Ur Leukocyte Esterase MODERATE (NEGATIVE) H 10/31/18 13:30 Urine RBC 2-5 /hpf (0-5) H 10/31/18 13:30 Urine WBC 10-25 /hpf (0-5) H 10/31/18 13:30 Ur Epithelial Cells FEW /lpf (FEW) 10/31/18 13:30 Urine Bacteria 2+ /hpf (NONE SEEN) H 10/31/18 13:30 Coarse Granular Casts 0-2 /lpf (NONE SEEN) H 10/31/18 13:30 Valproic Acid < 10.0 ug/mL (50.0-100.0) L 10/31/18 11:44 - Physical Exam Vitals and I&O: Vital Signs Temp 96.5 F 11/01/18 12:00 Pulse 75 11/01/18 12:00 Resp 19 11/01/18 13:00 BP 128/71 11/01/18 12:00 Pulse Ox 96 11/01/18 12:00 Intake & Output 10/31/18 11/01/18 11/01/18 18:59 06:59 18:59 Intake Total 100 1000 Output Total 700 1400 Balance -700 -1300 1000 Weight (lbs) 161 lb 3.2 oz 160 lb Intake: Intake, IV Amount 1000 Sodium Chloride 0.9% 1, 1000 000 ml @ 70 mls/hr IV . [id number] [facility] Rx#:[id number] Other 100 Output: Urine 700 1200 Stool 0 200 Other: Weight Source Bedscale Estimated Active Medications: Current Medications Acetaminophen (Tylenol) 650 mg PO Q4HR PRN PRN Reason: Pain Or Fever above 101 Stop: 12/30/18 16:43 Albuterol Sulfate (Albuterol 2.5mg/3ml Neb Ud) 2.5 mg HHN Q2HRT PRN PRN Reason: Shortness of Breath or Wheeze Stop: 12/30/18 16:43 Benztropine Mesylate (Cogentin) 1 mg GT BID CHANDAN Stop: 12/30/18 16:59 Last Admin: 11/01/18 10:49 Dose: 1 mg Calcium Carbonate (Calcium Carb) 600 mg GT BID CHANDAN Stop: 12/30/18 16:59 Last Admin: 11/01/18 10:49 Dose: 600 mg Carbamide Peroxide (Debrox Otic Drops) 5 drop EACH EAR BID [facility] Stop: 12/30/18 16:59 Last Admin: 11/01/18 10:51 Dose: 5 drop Chlorhexidine Gluconate (Peridex) 15 ml MM HS [facility] Stop: 12/31/18 20:59 Clonazepam (Klonopin) 1 mg GT BID CHANDAN Stop: 12/31/18 08:59 Last Admin: 11/01/18 10:50 Dose: 1 mg Escitalopram Oxalate (Lexapro) 20 mg GT DAILY [facility]; Protocol Stop: 12/31/18 08:59 Last Admin: 11/01/18 10:49 Dose: 20 mg Ferrous Sulfate (Iron) 325 mg PO TID [facility] Stop: 12/30/18 16:43 Last Admin: 11/01/18 13:55 Dose: 325 mg Finasteride (Proscar) 5 mg GT DAILY [facility]; Protocol Stop: 12/31/18 08:59 Last Admin: 11/01/18 10:49 Dose: 5 mg Fluticasone Propionate (Flonase) 2 spr NS DAILY [facility] Stop: 12/31/18 08:59 Last Admin: 11/01/18 11:05 Dose: Not Given Folic Acid (Folate) 1 mg GT DAILY [facility] Stop: 12/31/18 08:59 Last Admin: 11/01/18 10:50 Dose: 1 mg Guaifenesin/Dextromethorphan (Robitussin Dm) 10 ml GT Q4H PRN PRN Reason: Cough Stop: 12/30/18 16:43 Haloperidol Lactate (Haldol) 2 mg GT BID [facility] Stop: 12/30/18 16:59 Last Admin: 11/01/18 10:50 Dose: 2 mg Sodium Chloride (Nacl 0.9%) 1,000 mls @ 70 mls/hr IV .[id number] [facility] Stop: 12/30/18 16:43 Last Admin: 11/01/18 13:40 Dose: 70 mls/hr Ceftriaxone Sodium 1 gm/ (Dextrose) 50 mls @ 100 mls/hr IV Q24H [facility] Stop: 12/30/18 19:59 Last Admin: 10/31/18 22:06 Dose: 100 mls/hr Ibuprofen (Motrin) 600 mg GT Q6H PRN PRN Reason: BACK PAIN Stop: 12/30/18 16:43 Ipratropium [place] (Atrovent Neb 0.5mg/2.5ml) 0.5 mg HHN Q2HRT PRN PRN Reason: Shortness of Breath or Wheeze Stop: 12/30/18 16:43 Lactobacillus Rhamnosus (Culturelle 15b) 1 each GT BID [facility] Stop: 12/31/18 08:59 Last Admin: 11/01/18 10:49 Dose: 1 each Lactulose (Cephulac) 20 gm GT DAILY [facility] Stop: 12/31/18 08:59 Last Admin: 11/01/18 10:48 Dose: 20 gm Lamotrigine (Lamictal) 200 mg GT DAILY [facility]; Protocol Stop: 12/31/18 08:59 Last Admin: 11/01/18 10:51 Dose: Not Given Lamotrigine (Lamictal) 350 mg GT HS [facility]; Protocol Stop: 12/30/18 20:59 Last Admin: 10/31/18 22:07 Dose: 350 mg Latanoprost (Xalatan 0.005% Oph Soln) 1 drop EACH EYE HS [facility] Stop: 12/30/18 20:59 Last Admin: 11/01/18 01:26 Dose: Not Given Levetiracetam (Keppra) 1,000 mg PO BID [facility] Stop: 12/30/18 16:59 Last Admin: 11/01/18 10:49 Dose: 1,000 mg Levocarnitine (Carnitor) 660 mg GT TID [facility] Stop: 12/30/18 16:43 Last Admin: 11/01/18 13:55 Dose: 660 mg Levothyroxine Sodium (Synthroid) 0.125 mg GT DAILY [facility] Stop: 12/31/18 08:59 Last Admin: 11/01/18 10:49 Dose: 0.125 mg Loratadine (Claritin) 10 mg GT DAILY [facility] Stop: 12/31/18 08:59 Last Admin: 11/01/18 10:49 Dose: 10 mg Lorazepam (Ativan) 1 mg IV Q4HR PRN; Protocol PRN Reason: Seizure Stop: 12/30/18 16:43 Methotrexate (Methotrexate) 10 mg GT QTUE [facility]; Protocol Stop: 01/02/19 07:29 Miscellaneous (Brinzolamide/Brimonidine Tart [Simbrinza 1%-0.2% Eye Drops]) 1 drop EACH EYE BID [facility] Stop: 12/30/18 16:59 Last Admin: 11/01/18 10:30 Dose: Not Given Miscellaneous (Clobazam [Onfi]) 20 mg GT BID [facility] Stop: 12/30/18 16:59 Last Admin: 11/01/18 10:31 Dose: Not Given Miscellaneous (Ergocalciferol (Vitamin D2) [Ergocalciferol]) 1.5 ml GT DAILY CHANDAN Stop: 12/31/18 08:59 Last Admin: 11/01/18 10:31 Dose: Not Given Miscellaneous (Eslicarbazepine Acetate [Aptiom]) 800 mg PO QPM CHANDAN Stop: 12/30/18 16:59 Last Admin: 10/31/18 18:27 Dose: Not Given Miscellaneous (Levalbuterol Hcl [Levalbuterol Concentrate]) 1 unit HHN Q4H PRN PRN Reason: Respiratory Distress Miscellaneous (Ranitidine Hcl [Ranitidine Hcl]) 150 mg GT BID CHANDAN Stop: 12/30/18 16:59 Last Admin: 11/01/18 10:31 Dose: Not Given Miscellaneous (Timolol Maleate [Istalol]) 1 drop EACH EYE BID [facility] Stop: 12/30/18 16:59 Last Admin: 11/01/18 10:31 Dose: Not Given Miscellaneous (Tolnaftate [Tinactin]) 150 gm TP DAILY PRN PRN Reason: abdominal rash Miscellaneous (Zinc Oxide [Diaper Rash]) 10 gm TP QSHIFT PRN PRN Reason: skin irritation Rifaximin (Xifaxan) 600 mg PO BID [facility] Stop: 12/31/18 08:59 Last Admin: 11/01/18 10:31 Dose: Not Given Tamsulosin HCl (Flomax) 0.4 mg GT HS [facility] Stop: 12/30/18 20:59 Last Admin: 10/31/18 22:08 Dose: 0.4 mg General: weak, alert HEENT: NC/AT, PERRLA Neck: Supple, No JVD Lungs: CTAB Cardiovascular: RRR, Normal S1, Normal S2, without murmur Abdomen: soft, non-tender, non-distended, +GT, positive bowel sound Extremities: excoriation Neurological: alert - Procedures Procedures: Procedures Procedure Code Date BYPASS ILEUM TO CUTANEOUS, OPEN APPROACH [id number] 02/01/18 CHANGE FEEDING DEVICE IN UP INTEST TRACT, CUSTOMER CARE MANAGER APPROACH [id number] 11/24/17 CHANGE GASTROSTOMY TUBE 26231 11/01/17 DRAINAGE OF SMALL INTESTINE, OPEN APPROACH [id number] 11/01/17 EXCISION OF SMALL INTESTINE, OPEN APPROACH [id number] 02/01/18 EXPLORATION OF ABDOMEN 20968 11/01/17 FREEING OF BOWEL ADHESION 63825 11/01/17 ILEOSTOMY/JEJUNOSTOMY 25643 09/23/17 INSERTION OF ENDOTRACHEAL AIRWAY INTO TRACHEA, VIA OPENING [id number] 09/23/17 INSERTION OF FEEDING DEVICE INTO STOMACH, OPEN APPROACH [id number] 09/23/17 INTRODUCTION OF NUTRITIONAL INTO CENTRAL VEIN, PERC APPROACH [id number] 02/01/18 PARTIAL REMOVAL OF COLON 61885 09/23/[address] PL[address] GASTROSTOMY TUBE 65816 09/23/17 RELEASE PERITONEUM, OPEN APPROACH [id number] 02/01/18 RELEASE SMALL INTESTINE, OPEN APPROACH [id number] 11/01/17 REPAIR SMALL INTESTINE, OPEN APPROACH [id number] 11/01/17 RESECTION OF LARGE INTESTINE, OPEN APPROACH [id number] 09/23/17 RESPIRATORY VENTILATION, LESS THAN 24 CONSECUTIVE HOURS [id number] 09/23/17 SUTURE SMALL INTESTINE 37854 11/01/17 Internal Medicine Assmt/Plan - Assessment Assessment: Hyponatremia Acute UTI Lethargic with Altered mental status 2/2 seroquel Seizure disorder Cerebral Palsy - Plan Plan: continue ivf NS hold seroquel for now, til patient is much more awake and alert am labs send urine for culture continue iv rocephin continue current plan of care
[2018-11-01] MEDS: ESLICARBAZEPINE ACETATE 800 MG PO SCH (17:44)
[2018-11-01] MEDS: Chlorhexidine Gluconate 0.12% 15mL Mouthwash MM SCH (21:50)
--- NOTE | 2018-11-01 22:09 | Consultation ---
DATE OF CONSULTATION: 11/01/2018 INPATIENT GASTROINTESTINAL CONSULT REFERRING PHYSICIAN: Dr. Rick. REASON FOR CONSULTATION: Malfunctioning G-tube. HISTORY OF PRESENT ILLNESS: A 63-year-old male from a facility, was brought into the hospital because of lethargy. The patient was thought to have hyponatremia resulting in lethargy. He is otherwise a poor historian. PAST MEDICAL HISTORY: Mental retardation, cerebral palsy, seizure disorder, megacolon with ileostomy. PAST SURGICAL HISTORY: Ileostomy, PEG, spinal stimulator. FAMILY HISTORY: Noncontributory. SOCIAL HISTORY: Resident of skilled facility. ALLERGIES: BUSPIRONE, FLUOXETINE, DIVALPROEX. CURRENT MEDICATIONS: Tylenol, Cogentin, ceftriaxone, Klonopin, Lexapro, iron, Proscar, Flonase, folate, folic acid, Haldol, Motrin, lactulose, Lamictal, carnitor, Synthroid, Claritin, Ativan, and methotrexate. REVIEW OF SYSTEMS: Unobtainable. PHYSICAL EXAMINATION: VITAL SIGNS: Temperature 96.9, breathing 19, pulse of 71, blood pressure is 100/68, satting 98%. GENERAL: In no apparent distress. EYES: Anicteric. Normal conjunctivae. HEENT: Normocephalic, atraumatic. Moist mucous membranes. NECK: Soft, supple. CHEST: Clear. No effort. CARDIOVASCULAR: Regular rate and rhythm. ABDOMEN: Soft, nontender, nondistended with G-tube. SKIN: Warm, dry. EXTREMITIES: Reveal no cyanosis. LABORATORY DATA: Show white count 7.6, hemoglobin 13.3, platelets of 218. IMPRESSION: This is a 63-year-old male with malfunctioning gastric tube, dysphagia, will likely need to have it replaced. PLAN: G-tube to be changed at bedside. Thank you for allowing me to participate. Please call me if any questions. JOB# [id number]
[2018-11-02 05:43] LABS: ANION GAP 15.3 (7.0-16.0); BUN - UREA NITROGEN 9 mg/dL (7-25); CALCIUM SERUM 9.5 mg/dL (8.6-10.3); CARBON DIOXIDE 23.4 mEq/L (21.0-31.0); CHLORIDE 103 mEq/L (98-107); CREATININE - SERUM 0.7 mg/dL (0.7-1.3); GFR AFRICAN-AMERICAN > 60.0 ml/min (>90); GFR NON AFRICAN-AMERICAN > 60.0 ml/min; GLUCOSE 102 mg/dL (70-105); POTASSIUM SERUM 3.7 mEq/L (3.5-5.1); SODIUM SERUM 138 mEq/L (136-145)
[2018-11-02 05:44] LABS: HEMATOCRIT 40.5 % (41.0-60); HEMOGLOBIN 13.4 gm/dL (12-16); MEAN CELL VOLUME 93.9 fl (80-99); MEAN CORPUSCULAR HEMOGLOBIN 31.1 pg (26.0-30.0); MEAN CORPUSCULAR HGB CONC 33.1 pg (28.0-36.0); MEAN PLATELET VOLUME 8.6 fl; PLATELET COUNT 240 Th/cmm (150-400); RED BLOOD COUNT 4.31 Mil/cmm (4.30-5.70); RED CELL DISTRIBUTION WIDTH 12.5 % (11.5-20.0); WHITE BLOOD COUNT 9.1 Th/cmm (4.8-10.8)
[2018-11-02 07:36] LABS: BAND NEUTROPHILE 0 % (0-10); BASOPHIL 0 % (0-3); EOSINOPHIL 4 % (0-5); LYMPHOCYTE 12 % (20-50); MONOCYTE 15 % (2-10); NEUTROPHILS 69 % (40-80)
[2018-11-02] MEDS ORDERED: Albuterol Nebulizer 2.5mg/3mL HHN PRN (08:00)
[2018-11-02] MEDS: TIMOLOL MALEATE EACH EYE SCH (09:00)
[2018-11-02] MEDS: Lactulose 10 Gm/15 mL 30mL UDC GT SCH (09:14)
[2018-11-02] MEDS: Levothyroxine 0.125 Mg Tab GT SCH (09:15)
[2018-11-02] MEDS: Benztropine 1 MG TAB GT SCH ×2 (09:15→17:51)
[2018-11-02] MEDS: Lactobacillus Rhamnosus GG 15 Billion CFU CAP.SPRINK GT SCH ×2 (09:15→17:52)
[2018-11-02] MEDS: Ferrous Sulfate 325 MG TAB PO SCH ×3 (09:15→20:11)
[2018-11-02] MEDS: Carbamide Peroxide Otic Soln 15 mL Bottle EACH EAR SCH ×2 (09:17→17:43)
[2018-11-02] MEDS: Haloperidol Lactate Oral sol. 2 mg/mL Udc GT SCH ×2 (09:17→17:42)
[2018-11-02] MEDS: Non-Formulary Item 1 EA (Brinzolamide/Brimonidine Tart [Simbrinza 1%-0.2% Eye Drops] 1 DRO EACH EYE SCH ×2 (09:17→17:52)
[2018-11-02] MEDS: ERGOCALCIFEROL GT SCH (09:18)
[2018-11-02] MEDS: Fluticasone Propionate Nasal 1 SPR SPR NS SCH (09:18)
[2018-11-02] MEDS: Zinc Oxide Ointment 60 gm TP PRN ×2 (09:31→20:22)
[2018-11-02] MEDS: CLOBAZAM 20 MG GT SCH (09:44)
--- NOTE | 2018-11-02 12:40 | Internal Medicine Prog Note ---
Internal Medicine Subjective - Subjective Patient seen and examined:: with staff, chart reviewed Patient is:: awake, verbal, interactive, in bed, confused Patient Complaints of:: congestion Per staff patient has:: no adverse event, tolerating meds Internal Medicine Objective - Results Result Diagrams: 11/02/18 04:45 11/02/18 04:45 Recent Labs: Laboratory Last Values WBC 9.1 Th/cmm (4.8-10.8) 11/02/18 04:45 RBC 4.31 Mil/cmm (4.30-5.70) 11/02/18 04:45 Hgb 13.4 gm/dL (12-16) 11/02/18 04:45 Hct 40.5 % (41.0-60) L 11/02/18 04:45 MCV 93.9 fl (80-99) 11/02/18 04:45 MCH 31.1 pg (26.0-30.0) H 11/02/18 04:45 MCHC Differential 33.1 pg (28.0-36.0) 11/02/18 04:45 RDW 12.5 % (11.5-20.0) 11/02/18 04:45 Plt Count 240 Th/cmm (150-400) 11/02/18 04:45 MPV 8.6 fl 11/02/18 04:45 Add Manual Diff YES 11/02/18 04:45 Neutrophils % 73.7 % (40.0-80.0) 10/31/18 11:44 Band Neutrophils % 0 % (0-10) 11/02/18 04:45 Lymphocytes % 15.6 % (20.0-50.0) L 10/31/18 11:44 Monocytes % 8.4 % (2.0-10.0) 10/31/18 11:44 Eosinophils % 2.3 % (0.0-5.0) 10/31/18 11:44 Basophils % 0.0 % (0.0-2.0) 10/31/18 11:44 Neutrophils (Manual) 69 % (40-80) 11/02/18 04:45 Lymphocytes 12 % (20-50) L 11/02/18 04:45 Monocytes 15 % (2-10) H 11/02/18 04:45 Eosinophils 4 % (0-5) 11/02/18 04:45 Basophils 0 % (0-3) 11/02/18 04:45 Platelet Estimate ADEQUATE (NORMAL) 11/01/18 05:15 PT 10.5 SECONDS (9.5-11.5) 10/31/18 11:44 INR 1.01 (0.5-1.4) 10/31/18 11:44 PTT (Actin FS) 25.0 SECONDS (26.0-38.0) L 10/31/18 11:44 Sodium 138 mEq/L (136-145) 11/02/18 04:45 Potassium 3.7 mEq/L (3.5-5.1) 11/02/18 04:45 Chloride 103 mEq/L (98-107) 11/02/18 04:45 Carbon Dioxide 23.4 mEq/L (21.0-31.0) 11/02/18 04:45 Anion Gap 15.3 (7.0-16.0) 11/02/18 04:45 BUN 9 mg/dL (7-25) 11/02/18 04:45 Creatinine 0.7 mg/dL (0.7-1.3) 11/02/18 04:45 Est GFR ( Amer) > 60.0 ml/min (>90) 11/02/18 04:45 Est GFR (Non-Af Amer) > 60.0 ml/min 11/02/18 04:45 BUN/Creatinine Ratio 12.9 11/02/18 04:45 Glucose 102 mg/dL (70-105) 11/02/18 04:45 POC Glucose 70 MG/DL (70 - 105) 10/31/18 16:28 Whole Bld Lactic Acid 0.91 mmol/L (0.60-1.99) 10/31/18 11:44 Calcium 9.5 mg/dL (8.6-10.3) 11/02/18 04:45 Total Bilirubin 0.4 mg/dL (0.3-1.0) 10/31/18 11:44 AST 18 U/L (13-39) 10/31/18 11:44 ALT 14 U/L (7-52) 10/31/18 11:44 Alkaline Phosphatase 157 U/L (34-104) H 10/31/18 11:44 Troponin I < 0.01 ng/mL (0.01-0.05) L 10/31/18 11:44 Total Protein 7.2 gm/dL (6.0-8.3) 10/31/18 11:44 Albumin 4.0 gm/dL (4.2-5.5) L 10/31/18 11:44 Globulin 3.2 gm/dL 10/31/18 11:44 Albumin/Globulin Ratio 1.3 (1.0-1.8) 10/31/18 11:44 Triglycerides 117 mg/dL (<150) 10/31/18 11:44 Cholesterol 132 mg/dL (<200) 10/31/18 11:44 LDL Cholesterol Direct 68 mg/dL (75-193) L 10/31/18 11:44 HDL Cholesterol 44 mg/dL (23-92) 10/31/18 11:44 TSH 2.06 uIU/ml (0.34-5.60) 10/31/18 11:44 Urine Source [place] 10/31/18 13:30 Urine Color YELLOW 10/31/18 13:30 Urine Clarity CLEAR (CLEAR) 10/31/18 13:30 Urine pH 6.5 (4.6 - 8.0) 10/31/18 13:30 Ur Specific [place] 1.015 (1.005-1.030) 10/31/18 13:30 Urine Protein NEGATIVE mg/dL (NEGATIVE) 10/31/18 13:30 Urine Glucose (UA) NEGATIVE mg/dL (NEGATIVE) 10/31/18 13:30 Urine Ketones TRACE mg/dL (NEGATIVE) 10/31/18 13:30 Urine Blood TRACE (NEGATIVE) 10/31/18 13:30 Urine Nitrate NEGATIVE (NEGATIVE) 10/31/18 13:30 Urine Bilirubin NEGATIVE (NEGATIVE) 10/31/18 13:30 Urine Urobilinogen 0.2 E.U./dL (0.2 - 1.0) 10/31/18 13:30 Ur Leukocyte Esterase MODERATE (NEGATIVE) H 10/31/18 13:30 Urine RBC 2-5 /hpf (0-5) H 10/31/18 13:30 Urine WBC 10-25 /hpf (0-5) H 10/31/18 13:30 Ur Epithelial Cells FEW /lpf (FEW) 10/31/18 13:30 Urine Bacteria 2+ /hpf (NONE SEEN) H 10/31/18 13:30 Coarse Granular Casts 0-2 /lpf (NONE SEEN) H 10/31/18 13:30 Valproic Acid < 10.0 ug/mL (50.0-100.0) L 10/31/18 11:44 - Physical Exam Vitals and I&O: Vital Signs Temp 98.1 F 11/02/18 12:00 Pulse 91 11/02/18 12:00 Resp 18 11/02/18 12:00 BP 110/68 11/02/18 12:00 Pulse Ox 96 11/02/18 12:00 Intake & Output 11/01/18 11/02/18 11/02/18 18:59 06:59 18:59 Intake Total 1000 950 Output Total 600 Balance 1000 350 Weight (lbs) 72.575 kg Intake: Intake, IV Amount 1000 50 Sodium Chloride 0.9% 1, 1000 000 ml @ 70 mls/hr IV . [id number] [facility] Rx#:[id number] cefTRIAXone 1 gm In 50 Dextrose 5% 50 ml @ 100 mls/hr IV Q24H [facility] Rx#: [id number] Tube Feeding 900 Output: Urine 400 Stool 200 Other: # Voids 3 # Bowel Movements 0 Weight Source Bedscale Active Medications: Current Medications Acetaminophen (Tylenol) 650 mg PO Q4HR PRN PRN Reason: Pain Or Fever above 101 Stop: 12/30/18 16:43 Albuterol Sulfate (Albuterol 2.5mg/3ml Neb Ud) 2.5 mg HHN Q2HRT PRN PRN Reason: Shortness of Breath or Wheeze Stop: 12/30/18 16:43 Albuterol Sulfate (Albuterol 2.5mg/3ml Neb Ud) 2.5 mg HHN Q4H PRN PRN Reason: Respiratory Distress Stop: 01/01/19 07:59 Benztropine Mesylate (Cogentin) 1 mg GT BID [facility] Stop: 12/30/18 16:59 Last Admin: 11/02/18 09:15 Dose: 1 mg Calcium Carbonate (Calcium Carb) 600 mg GT BID [facility] Stop: 12/30/18 16:59 Last Admin: 11/02/18 09:15 Dose: 600 mg Carbamide Peroxide (Debrox Otic Drops) 5 drop EACH EAR BID [facility] Stop: 12/30/18 16:59 Last Admin: 11/02/18 09:17 Dose: 5 drop Chlorhexidine Gluconate (Peridex) 15 ml MM HS [facility] Stop: 12/31/18 20:59 Last Admin: 11/01/18 21:50 Dose: Not Given Clonazepam (Klonopin) 1 mg GT BID [facility] Stop: 12/31/18 08:59 Last Admin: 11/02/18 09:15 Dose: 1 mg Escitalopram Oxalate (Lexapro) 20 mg GT DAILY [facility]; Protocol Stop: 12/31/18 08:59 Last Admin: 11/02/18 09:15 Dose: 20 mg Famotidine (Pepcid) 20 mg GT BID [facility] Stop: 01/01/19 08:59 Last Admin: 11/02/18 09:14 Dose: 20 mg Ferrous Sulfate (Iron) 325 mg PO TID [facility] Stop: 12/30/18 16:43 Last Admin: 11/02/18 09:15 Dose: 325 mg Finasteride (Proscar) 5 mg GT DAILY [facility]; Protocol Stop: 12/31/18 08:59 Last Admin: 11/02/18 09:15 Dose: 5 mg Fluticasone Propionate (Flonase) 2 spr NS DAILY [facility] Stop: 12/31/18 08:59 Last Admin: 11/02/18 09:18 Dose: Not Given Folic Acid (Folate) 1 mg GT DAILY [facility] Stop: 12/31/18 08:59 Last Admin: 11/02/18 09:15 Dose: 1 mg Guaifenesin/Dextromethorphan (Robitussin Dm) 10 ml GT Q4H PRN PRN Reason: Cough Stop: 12/30/18 16:43 Haloperidol Lactate (Haldol) 2 mg GT BID [facility] Stop: 12/30/18 16:59 Last Admin: 11/02/18 09:17 Dose: 2 mg Sodium Chloride (Nacl 0.9%) 1,000 mls @ 70 mls/hr IV .[id number] [facility] Stop: 12/30/18 16:43 Last Admin: 11/01/18 13:40 Dose: 70 mls/hr Ceftriaxone Sodium 1 gm/ (Dextrose) 50 mls @ 100 mls/hr IV Q24H [facility] Stop: 12/30/18 19:59 Last Infusion: 11/01/18 23:40 Dose: Infused Ibuprofen (Motrin) 600 mg GT Q6H PRN PRN Reason: BACK PAIN Stop: 12/30/18 16:43 Ipratropium [place] (Atrovent Neb 0.5mg/2.5ml) 0.5 mg HHN Q2HRT PRN PRN Reason: Shortness of Breath or Wheeze Stop: 12/30/18 16:43 Lactobacillus Rhamnosus (Culturelle 15b) 1 each GT BID [facility] Stop: 12/31/18 08:59 Last Admin: 11/02/18 09:15 Dose: 1 each Lactulose (Cephulac) 20 gm GT DAILY [facility] Stop: 12/31/18 08:59 Last Admin: 11/02/18 09:14 Dose: 20 gm Lamotrigine (Lamictal) 200 mg GT DAILY [facility]; Protocol Stop: 12/31/18 08:59 Last Admin: 11/02/18 09:15 Dose: 200 mg Lamotrigine (Lamictal) 350 mg GT HS [facility]; Protocol Stop: 12/30/18 20:59 Last Admin: 11/01/18 21:49 Dose: 350 mg Latanoprost (Xalatan 0.005% Oph Soln) 1 drop EACH EYE HS [facility] Stop: 12/30/18 20:59 Last Admin: 11/01/18 21:52 Dose: 1 drop Levetiracetam (Keppra) 1,000 mg PO BID [facility] Stop: 12/30/18 16:59 Last Admin: 11/02/18 09:15 Dose: 1,000 mg Levocarnitine (Carnitor) 660 mg GT TID [facility] Stop: 12/30/18 16:43 Last Admin: 11/02/18 09:16 Dose: 660 mg Levothyroxine Sodium (Synthroid) 0.125 mg GT DAILY [facility] Stop: 12/31/18 08:59 Last Admin: 11/02/18 09:15 Dose: 0.125 mg Loratadine (Claritin) 10 mg GT DAILY [facility] Stop: 12/31/18 08:59 Last Admin: 11/02/18 09:15 Dose: 10 mg Lorazepam (Ativan) 1 mg IV Q4HR PRN; Protocol PRN Reason: Seizure Stop: 12/30/18 16:43 Methotrexate (Methotrexate) 10 mg GT QTUE [facility]; Protocol Stop: 01/02/19 07:29 Miscellaneous (Brinzolamide/Brimonidine Tart [Simbrinza 1%-0.2% Eye Drops]) 1 drop EACH EYE BID [facility] Stop: 12/30/18 16:59 Last Admin: 11/02/18 09:17 Dose: Not Given Miscellaneous (Clobazam [Onfi]) 20 mg GT BID [facility] Stop: 12/30/18 16:59 Last Admin: 11/01/18 17:44 Dose: Not Given Miscellaneous (Ergocalciferol (Vitamin D2) [Ergocalciferol]) 1.5 ml GT DAILY [facility] Stop: 12/31/18 08:59 Last Admin: 11/02/18 09:18 Dose: Not Given Miscellaneous (Eslicarbazepine Acetate [Aptiom]) 800 mg PO QPM [facility] Stop: 12/30/18 16:59 Last Admin: 11/01/18 17:44 Dose: Not Given Miscellaneous (Timolol Maleate [Istalol]) 1 drop EACH EYE BID [facility] Stop: 12/30/18 16:59 Last Admin: 11/01/18 17:44 Dose: Not Given Miscellaneous (Tolnaftate [Tinactin]) 150 gm TP DAILY PRN PRN Reason: abdominal rash Petrolatum (Zinc Oxide) 1 appl TP QSHIFT PRN PRN Reason: skin irritation Stop: 01/01/19 07:59 Last Admin: 11/02/18 09:31 Dose: 1 appl Rifaximin (Xifaxan) 600 mg PO BID [facility] Stop: 12/31/18 08:59 Last Admin: 11/02/18 09:14 Dose: 600 mg Tamsulosin HCl (Flomax) 0.4 mg GT HS [facility] Stop: 12/30/18 20:59 Last Admin: 11/01/18 21:49 Dose: 0.4 mg General: weak, demented HEENT: NC/AT, PERRLA Neck: Supple, No JVD Lungs: CTAB Cardiovascular: RRR, Normal S1, Normal S2, without murmur Abdomen: soft, non-tender, non-distended, +GT, positive bowel sound Extremities: excoriation Neurological: no change - Procedures Procedures: Procedures Procedure Code Date BYPASS ILEUM TO CUTANEOUS, OPEN APPROACH [id number] 02/01/18 CHANGE FEEDING DEVICE IN UP INTEST TRACT, WAREHOUSE CLERK APPROACH [id number] 10/31/18 CHANGE GASTROSTOMY TUBE 47527 11/01/17 DRAINAGE OF SMALL INTESTINE, OPEN APPROACH [id number] 11/01/17 EXCISION OF SMALL INTESTINE, OPEN APPROACH [id number] 02/01/18 EXPLORATION OF ABDOMEN 57058 11/01/17 FREEING OF BOWEL ADHESION 09449 11/01/17 ILEOSTOMY/JEJUNOSTOMY 04375 09/23/17 INSERTION OF ENDOTRACHEAL AIRWAY INTO TRACHEA, VIA OPENING [id number] 09/23/17 INSERTION OF FEEDING DEVICE INTO STOMACH, OPEN APPROACH [id number] 09/23/17 INTRODUCTION OF NUTRITIONAL INTO CENTRAL VEIN, PERC APPROACH [id number] 02/01/18 PARTIAL REMOVAL OF COLON 90604 09/23/17 PL[address] GASTROSTOMY TUBE 18839 09/23/17 RELEASE PERITONEUM, OPEN APPROACH [id number] 02/01/18 RELEASE SMALL INTESTINE, OPEN APPROACH [id number] 11/01/17 REPAIR SMALL INTESTINE, OPEN APPROACH [id number] 11/01/17 RESECTION OF LARGE INTESTINE, OPEN APPROACH [id number] 09/23/17 RESPIRATORY VENTILATION, LESS THAN 24 CONSECUTIVE HOURS [id number] 09/23/17 SUTURE SMALL INTESTINE 33738 11/01/17 Internal Medicine Assmt/Plan - Assessment Assessment: - Assessment Assessment: Hyponatremia Acute UTI Lethargic with Altered mental status 2/2 seroquel Seizure disorder Cerebral Palsy - Plan Plan: - Plan Plan: continue ivf NS hold seroquel for now, til patient is much more awake and alert am labs send urine for culture continue iv rocephin continue current plan of care
[2018-11-02] MEDS: ESLICARBAZEPINE ACETATE 800 MG PO SCH (17:52)
[2018-11-02] MEDS: Sodium Chloride 0.9% 1,000 ML IV SCH (20:08)
[2018-11-02] MEDS: Chlorhexidine Gluconate 0.12% 15mL Mouthwash MM SCH (20:26)
--- NOTE | 2018-11-02 22:44 | GI Progress Note ---
Subjective - Review of Systems Service Date: 11/02/18 Events since last encounter: G tube intact and working Objective - Results Result Diagrams: 11/02/18 04:45 11/02/18 04:45 Recent Labs: Laboratory Last Values WBC 9.1 Th/cmm (4.8-10.8) 11/02/18 04:45 RBC 4.31 Mil/cmm (4.30-5.70) 11/02/18 04:45 Hgb 13.4 gm/dL (12-16) 11/02/18 04:45 Hct 40.5 % (41.0-60) L 11/02/18 04:45 MCV 93.9 fl (80-99) 11/02/18 04:45 MCH 31.1 pg (26.0-30.0) H 11/02/18 04:45 MCHC Differential 33.1 pg (28.0-36.0) 11/02/18 04:45 RDW 12.5 % (11.5-20.0) 11/02/18 04:45 Plt Count 240 Th/cmm (150-400) 11/02/18 04:45 MPV 8.6 fl 11/02/18 04:45 Add Manual Diff YES 11/02/18 04:45 Neutrophils % 73.7 % (40.0-80.0) 10/31/18 11:44 Band Neutrophils % 0 % (0-10) 11/02/18 04:45 Lymphocytes % 15.6 % (20.0-50.0) L 10/31/18 11:44 Monocytes % 8.4 % (2.0-10.0) 10/31/18 11:44 Eosinophils % 2.3 % (0.0-5.0) 10/31/18 11:44 Basophils % 0.0 % (0.0-2.0) 10/31/18 11:44 Neutrophils (Manual) 69 % (40-80) 11/02/18 04:45 Lymphocytes 12 % (20-50) L 11/02/18 04:45 Monocytes 15 % (2-10) H 11/02/18 04:45 Eosinophils 4 % (0-5) 11/02/18 04:45 Basophils 0 % (0-3) 11/02/18 04:45 Platelet Estimate ADEQUATE (NORMAL) 11/01/18 05:15 PT 10.5 SECONDS (9.5-11.5) 10/31/18 11:44 INR 1.01 (0.5-1.4) 10/31/18 11:44 PTT (Actin FS) 25.0 SECONDS (26.0-38.0) L 10/31/18 11:44 Sodium 138 mEq/L (136-145) 11/02/18 04:45 Potassium 3.7 mEq/L (3.5-5.1) 11/02/18 04:45 Chloride 103 mEq/L (98-107) 11/02/18 04:45 Carbon Dioxide 23.4 mEq/L (21.0-31.0) 11/02/18 04:45 Anion Gap 15.3 (7.0-16.0) 11/02/18 04:45 BUN 9 mg/dL (7-25) 11/02/18 04:45 Creatinine 0.7 mg/dL (0.7-1.3) 11/02/18 04:45 Est GFR ( Amer) > 60.0 ml/min (>90) 11/02/18 04:45 Est GFR (Non-Af Amer) > 60.0 ml/min 11/02/18 04:45 BUN/Creatinine Ratio 12.9 11/02/18 04:45 Glucose 102 mg/dL (70-105) 11/02/18 04:45 POC Glucose 70 MG/DL (70 - 105) 10/31/18 16:28 Whole Bld Lactic Acid 0.91 mmol/L (0.60-1.99) 10/31/18 11:44 Calcium 9.5 mg/dL (8.6-10.3) 11/02/18 04:45 Total Bilirubin 0.4 mg/dL (0.3-1.0) 10/31/18 11:44 AST 18 U/L (13-39) 10/31/18 11:44 ALT 14 U/L (7-52) 10/31/18 11:44 Alkaline Phosphatase 157 U/L (34-104) H 10/31/18 11:44 Troponin I < 0.01 ng/mL (0.01-0.05) L 10/31/18 11:44 Total Protein 7.2 gm/dL (6.0-8.3) 10/31/18 11:44 Albumin 4.0 gm/dL (4.2-5.5) L 10/31/18 11:44 Globulin 3.2 gm/dL 10/31/18 11:44 Albumin/Globulin Ratio 1.3 (1.0-1.8) 10/31/18 11:44 Triglycerides 117 mg/dL (<150) 10/31/18 11:44 Cholesterol 132 mg/dL (<200) 10/31/18 11:44 LDL Cholesterol Direct 68 mg/dL (75-193) L 10/31/18 11:44 HDL Cholesterol 44 mg/dL (23-92) 10/31/18 11:44 TSH 2.06 uIU/ml (0.34-5.60) 10/31/18 11:44 Urine Source [place] 10/31/18 13:30 Urine Color YELLOW 10/31/18 13:30 Urine Clarity CLEAR (CLEAR) 10/31/18 13:30 Urine pH 6.5 (4.6 - 8.0) 10/31/18 13:30 Ur Specific [place] 1.015 (1.005-1.030) 10/31/18 13:30 Urine Protein NEGATIVE mg/dL (NEGATIVE) 10/31/18 13:30 Urine Glucose (UA) NEGATIVE mg/dL (NEGATIVE) 10/31/18 13:30 Urine Ketones TRACE mg/dL (NEGATIVE) 10/31/18 13:30 Urine Blood TRACE (NEGATIVE) 10/31/18 13:30 Urine Nitrate NEGATIVE (NEGATIVE) 10/31/18 13:30 Urine Bilirubin NEGATIVE (NEGATIVE) 10/31/18 13:30 Urine Urobilinogen 0.2 E.U./dL (0.2 - 1.0) 10/31/18 13:30 Ur Leukocyte Esterase MODERATE (NEGATIVE) H 10/31/18 13:30 Urine RBC 2-5 /hpf (0-5) H 10/31/18 13:30 Urine WBC 10-25 /hpf (0-5) H 10/31/18 13:30 Ur Epithelial Cells FEW /lpf (FEW) 10/31/18 13:30 Urine Bacteria 2+ /hpf (NONE SEEN) H 10/31/18 13:30 Coarse Granular Casts 0-2 /lpf (NONE SEEN) H 10/31/18 13:30 Valproic Acid < 10.0 ug/mL (50.0-100.0) L 10/31/18 11:44 - Physical Exam Vitals and I&O: Vital Signs Temp 97.9 F 11/02/18 20:00 Pulse 82 11/02/18 20:15 Resp 18 11/02/18 21:00 BP 124/72 11/02/18 20:00 Pulse Ox 98 11/02/18 20:15 Intake & Output 11/02/18 11/02/18 11/03/18 06:59 18:59 06:59 Intake Total 1950 Output Total 600 750 Balance 1350 -750 Weight (lbs) 72.575 kg 72.575 kg Intake: Intake, IV Amount 1050 Sodium Chloride 0.9% 1, 1000 000 ml @ 70 mls/hr IV . [id number] [facility] Rx#:[id number] cefTRIAXone 1 gm In 50 Dextrose 5% 50 ml @ 100 mls/hr IV Q24H [facility] Rx#: [id number] Tube Feeding 900 Output: Urine 400 450 Stool 200 300 Other: # Voids 3 # Bowel Movements 0 2 Weight Source Bedscale Bedscale Active Medications: Current Medications Acetaminophen (Tylenol) 650 mg PO Q4HR PRN PRN Reason: Pain Or Fever above 101 Stop: 12/30/18 16:43 Albuterol Sulfate (Albuterol 2.5mg/3ml Neb Ud) 2.5 mg HHN Q2HRT PRN PRN Reason: Shortness of Breath or Wheeze Stop: 12/30/18 16:43 Albuterol Sulfate (Albuterol 2.5mg/3ml Neb Ud) 2.5 mg HHN Q4H PRN PRN Reason: Respiratory Distress Stop: 01/01/19 07:59 Benztropine Mesylate (Cogentin) 1 mg GT BID [facility] Stop: 12/30/18 16:59 Last Admin: 11/02/18 17:51 Dose: 1 mg Calcium Carbonate (Calcium Carb) 600 mg GT BID [facility] Stop: 12/30/18 16:59 Last Admin: 11/02/18 17:51 Dose: 600 mg Carbamide Peroxide (Debrox Otic Drops) 5 drop EACH EAR BID [facility] Stop: 12/30/18 16:59 Last Admin: 11/02/18 17:43 Dose: 5 drop Chlorhexidine Gluconate (Peridex) 15 ml MM HS [facility] Stop: 12/31/18 20:59 Last Admin: 11/02/18 20:26 Dose: 15 ml Clonazepam (Klonopin) 1 mg GT BID [facility] Stop: 12/31/18 08:59 Last Admin: 11/02/18 17:51 Dose: 1 mg Escitalopram Oxalate (Lexapro) 20 mg GT DAILY [facility]; Protocol Stop: 12/31/18 08:59 Last Admin: 11/02/18 09:15 Dose: 20 mg Famotidine (Pepcid) 20 mg GT BID [facility] Stop: 01/01/19 08:59 Last Admin: 11/02/18 17:51 Dose: 20 mg Ferrous Sulfate (Iron) 325 mg PO TID [facility] Stop: 12/30/18 16:43 Last Admin: 11/02/18 20:11 Dose: 325 mg Finasteride (Proscar) 5 mg GT DAILY [facility]; Protocol Stop: 12/31/18 08:59 Last Admin: 11/02/18 09:15 Dose: 5 mg Fluticasone Propionate (Flonase) 2 spr NS DAILY [facility] Stop: 12/31/18 08:59 Last Admin: 11/02/18 09:18 Dose: Not Given Folic Acid (Folate) 1 mg GT DAILY [facility] Stop: 12/31/18 08:59 Last Admin: 11/02/18 09:15 Dose: 1 mg Guaifenesin/Dextromethorphan (Robitussin Dm) 10 ml GT Q4H PRN PRN Reason: Cough Stop: 12/30/18 16:43 Haloperidol Lactate (Haldol) 2 mg GT BID [facility] Stop: 12/30/18 16:59 Last Admin: 11/02/18 17:42 Dose: 2 mg Sodium Chloride (Nacl 0.9%) 1,000 mls @ 70 mls/hr IV .[id number] [facility] Stop: 12/30/18 16:43 Last Admin: 11/02/18 20:08 Dose: 70 mls/hr Ceftriaxone Sodium 1 gm/ (Dextrose) 50 mls @ 100 mls/hr IV Q24H [facility] Stop: 12/30/18 19:59 Last Admin: 11/02/18 20:09 Dose: 100 mls/hr Ibuprofen (Motrin) 600 mg GT Q6H PRN PRN Reason: BACK PAIN Stop: 12/30/18 16:43 Ipratropium [place] (Atrovent Neb 0.5mg/2.5ml) 0.5 mg HHN Q2HRT PRN PRN Reason: Shortness of Breath or Wheeze Stop: 12/30/18 16:43 Lactobacillus Rhamnosus (Culturelle 15b) 1 each GT BID [facility] Stop: 12/31/18 08:59 Last Admin: 11/02/18 17:52 Dose: 1 each Lactulose (Cephulac) 20 gm GT DAILY [facility] Stop: 12/31/18 08:59 Last Admin: 11/02/18 09:14 Dose: 20 gm Lamotrigine (Lamictal) 200 mg GT DAILY [facility]; Protocol Stop: 12/31/18 08:59 Last Admin: 11/02/18 09:15 Dose: 200 mg Lamotrigine (Lamictal) 350 mg GT HS [facility]; Protocol Stop: 12/30/18 20:59 Last Admin: 11/02/18 20:10 Dose: 350 mg Latanoprost (Xalatan 0.005% Ophth Soln) 1 drop EACH EYE HS [facility] Stop: 12/30/18 20:59 Last Admin: 11/02/18 20:10 Dose: 1 drop Levetiracetam (Keppra) 1,000 mg PO BID [facility] Stop: 12/30/18 16:59 Last Admin: 11/02/18 17:51 Dose: 1,000 mg Levocarnitine (Carnitor) 660 mg GT TID [facility] Stop: 12/30/18 16:43 Last Admin: 11/02/18 20:11 Dose: 660 mg Levothyroxine Sodium (Synthroid) 0.125 mg GT DAILY [facility] Stop: 12/31/18 08:59 Last Admin: 11/02/18 09:15 Dose: 0.125 mg Loratadine (Claritin) 10 mg GT DAILY [facility] Stop: 12/31/18 08:59 Last Admin: 11/02/18 09:15 Dose: 10 mg Lorazepam (Ativan) 1 mg IV Q4HR PRN; Protocol PRN Reason: Seizure Stop: 12/30/18 16:43 Methotrexate (Methotrexate) 10 mg GT QTUE CHANDAN; Protocol Stop: 01/02/19 07:29 Miscellaneous (Brinzolamide/Brimonidine Tart [Simbrinza 1%-0.2% Eye Drops]) 1 drop EACH EYE BID CHANDAN Stop: 12/30/18 16:59 Last Admin: 11/02/18 17:52 Dose: Not Given Miscellaneous (Clobazam [Onfi]) 20 mg GT BID CHANDAN Stop: 12/30/18 16:59 Last Admin: 11/02/18 09:44 Dose: Not Given Miscellaneous (Ergocalciferol (Vitamin D2) [Ergocalciferol]) 1.5 ml GT DAILY CHANDAN Stop: 12/31/18 08:59 Last Admin: 11/02/18 09:18 Dose: Not Given Miscellaneous (Eslicarbazepine Acetate [Aptiom]) 800 mg PO QPM CHANDAN Stop: 12/30/18 16:59 Last Admin: 11/02/18 17:52 Dose: Not Given Petrolatum (Zinc Oxide) 1 appl TP QSHIFT PRN PRN Reason: skin irritation Stop: 01/01/19 07:59 Last Admin: 11/02/18 20:22 Dose: 1 appl Rifaximin (Xifaxan) 600 mg PO BID CHANDAN Stop: 12/31/18 08:59 Last Admin: 11/02/18 17:51 Dose: 600 mg Tamsulosin HCl (Flomax) 0.4 mg GT HS CHANDAN Stop: 12/30/18 20:59 Last Admin: 11/02/18 20:11 Dose: 0.4 mg Timolol Maleate (Timoptic 0.5% Ophth Soln) 1 drop EACH EYE BID CHANDAN Stop: 12/30/18 16:59 Last Admin: 11/02/18 17:45 Dose: 1 drop Tolnaftate (Tinactin 1% Cream) 1 appl TP DAILY PRN PRN Reason: abdominal rash Last Admin: 11/02/18 20:21 Dose: 1 appl General: Cooperative Neck: Supple Cardiovascular: Regular rate, Normal S1, Normal S2 Lungs: Clear to auscultation Abdomen: Bowel sounds - Procedures Procedures: Procedures Procedure Code Date BYPASS ILEUM TO CUTANEOUS, OPEN APPROACH [id number] 02/01/18 CHANGE FEEDING DEVICE IN UP INTEST TRACT, CARDROOM ATTENDANT APPROACH [id number] 10/31/18 CHANGE GASTROSTOMY TUBE 06992 11/01/17 DRAINAGE OF SMALL INTESTINE, OPEN APPROACH [id number] 11/01/17 EXCISION OF SMALL INTESTINE, OPEN APPROACH [id number] 02/01/18 EXPLORATION OF ABDOMEN 68143 11/01/17 FREEING OF BOWEL ADHESION 57095 11/01/17 ILEOSTOMY/JEJUNOSTOMY 23402 09/23/17 INSERTION OF ENDOTRACHEAL AIRWAY INTO TRACHEA, VIA OPENING [id number] 09/23/17 INSERTION OF FEEDING DEVICE INTO STOMACH, OPEN APPROACH [id number] 09/23/17 INTRODUCTION OF NUTRITIONAL INTO CENTRAL VEIN, PERC APPROACH [id number] 02/01/18 PARTIAL REMOVAL OF COLON 54248 09/23/[address] PL[address] GASTROSTOMY TUBE 96261 09/23/17 RELEASE PERITONEUM, OPEN APPROACH [id number] 02/01/18 RELEASE SMALL INTESTINE, OPEN APPROACH [id number] 11/01/17 REPAIR SMALL INTESTINE, OPEN APPROACH [id number] 11/01/17 RESECTION OF LARGE INTESTINE, OPEN APPROACH [id number] 09/23/17 RESPIRATORY VENTILATION, LESS THAN 24 CONSECUTIVE HOURS [id number] 09/23/17 SUTURE SMALL INTESTINE 43157 11/01/17 Assessment/Plan - Assessment Assessment: 1. G tube malfunction 2. Dysphagia -continue with G tube feedings prn -supportive care and management
[2018-11-03] MEDS: Lactulose 10 Gm/15 mL 30mL UDC GT SCH (09:00)
[2018-11-03] MEDS: Ferrous Sulfate 325 MG TAB PO SCH ×3 (09:01→20:42)
[2018-11-03] MEDS: Benztropine 1 MG TAB GT SCH ×2 (09:02→17:21)
[2018-11-03] MEDS: Lactobacillus Rhamnosus GG 15 Billion CFU CAP.SPRINK GT SCH ×2 (09:02→17:20)
[2018-11-03] MEDS: Levothyroxine 0.125 Mg Tab GT SCH (09:02)
[2018-11-03] MEDS: Haloperidol Lactate Oral sol. 2 mg/mL Udc GT SCH ×2 (09:39→17:21)
[2018-11-03] MEDS: Fluticasone Propionate Nasal 1 SPR SPR NS SCH (09:41)
[2018-11-03] MEDS: Carbamide Peroxide Otic Soln 15 mL Bottle EACH EAR SCH ×2 (09:42→17:20)
--- NOTE | 2018-11-03 12:54 | Internal Medicine Prog Note ---
Internal Medicine Subjective - Subjective Patient seen and examined:: with staff, chart reviewed Patient is:: awake, verbal, interactive, in bed, confused Patient Complaints of:: congestion Per staff patient has:: no adverse event, tolerating meds Internal Medicine Objective - Results Result Diagrams: 11/02/18 04:45 11/02/18 04:45 Recent Labs: Laboratory Last Values WBC 9.1 Th/cmm (4.8-10.8) 11/02/18 04:45 RBC 4.31 Mil/cmm (4.30-5.70) 11/02/18 04:45 Hgb 13.4 gm/dL (12-16) 11/02/18 04:45 Hct 40.5 % (41.0-60) L 11/02/18 04:45 MCV 93.9 fl (80-99) 11/02/18 04:45 MCH 31.1 pg (26.0-30.0) H 11/02/18 04:45 MCHC Differential 33.1 pg (28.0-36.0) 11/02/18 04:45 RDW 12.5 % (11.5-20.0) 11/02/18 04:45 Plt Count 240 Th/cmm (150-400) 11/02/18 04:45 MPV 8.6 fl 11/02/18 04:45 Add Manual Diff YES 11/02/18 04:45 Neutrophils % 73.7 % (40.0-80.0) 10/31/18 11:44 Band Neutrophils % 0 % (0-10) 11/02/18 04:45 Lymphocytes % 15.6 % (20.0-50.0) L 10/31/18 11:44 Monocytes % 8.4 % (2.0-10.0) 10/31/18 11:44 Eosinophils % 2.3 % (0.0-5.0) 10/31/18 11:44 Basophils % 0.0 % (0.0-2.0) 10/31/18 11:44 Neutrophils (Manual) 69 % (40-80) 11/02/18 04:45 Lymphocytes 12 % (20-50) L 11/02/18 04:45 Monocytes 15 % (2-10) H 11/02/18 04:45 Eosinophils 4 % (0-5) 11/02/18 04:45 Basophils 0 % (0-3) 11/02/18 04:45 Platelet Estimate ADEQUATE (NORMAL) 11/01/18 05:15 PT 10.5 SECONDS (9.5-11.5) 10/31/18 11:44 INR 1.01 (0.5-1.4) 10/31/18 11:44 PTT (Actin FS) 25.0 SECONDS (26.0-38.0) L 10/31/18 11:44 Sodium 138 mEq/L (136-145) 11/02/18 04:45 Potassium 3.7 mEq/L (3.5-5.1) 11/02/18 04:45 Chloride 103 mEq/L (98-107) 11/02/18 04:45 Carbon Dioxide 23.4 mEq/L (21.0-31.0) 11/02/18 04:45 Anion Gap 15.3 (7.0-16.0) 11/02/18 04:45 BUN 9 mg/dL (7-25) 11/02/18 04:45 Creatinine 0.7 mg/dL (0.7-1.3) 11/02/18 04:45 Est GFR ( Amer) > 60.0 ml/min (>90) 11/02/18 04:45 Est GFR (Non-Af Amer) > 60.0 ml/min 11/02/18 04:45 BUN/Creatinine Ratio 12.9 11/02/18 04:45 Glucose 102 mg/dL (70-105) 11/02/18 04:45 POC Glucose 70 MG/DL (70 - 105) 10/31/18 16:28 Whole Bld Lactic Acid 0.91 mmol/L (0.60-1.99) 10/31/18 11:44 Calcium 9.5 mg/dL (8.6-10.3) 11/02/18 04:45 Total Bilirubin 0.4 mg/dL (0.3-1.0) 10/31/18 11:44 AST 18 U/L (13-39) 10/31/18 11:44 ALT 14 U/L (7-52) 10/31/18 11:44 Alkaline Phosphatase 157 U/L (34-104) H 10/31/18 11:44 Troponin I < 0.01 ng/mL (0.01-0.05) L 10/31/18 11:44 Total Protein 7.2 gm/dL (6.0-8.3) 10/31/18 11:44 Albumin 4.0 gm/dL (4.2-5.5) L 10/31/18 11:44 Globulin 3.2 gm/dL 10/31/18 11:44 Albumin/Globulin Ratio 1.3 (1.0-1.8) 10/31/18 11:44 Triglycerides 117 mg/dL (<150) 10/31/18 11:44 Cholesterol 132 mg/dL (<200) 10/31/18 11:44 LDL Cholesterol Direct 68 mg/dL (75-193) L 10/31/18 11:44 HDL Cholesterol 44 mg/dL (23-92) 10/31/18 11:44 TSH 2.06 uIU/ml (0.34-5.60) 10/31/18 11:44 Urine Source [place] 10/31/18 13:30 Urine Color YELLOW 10/31/18 13:30 Urine Clarity CLEAR (CLEAR) 10/31/18 13:30 Urine pH 6.5 (4.6 - 8.0) 10/31/18 13:30 Ur Specific [place] 1.015 (1.005-1.030) 10/31/18 13:30 Urine Protein NEGATIVE mg/dL (NEGATIVE) 10/31/18 13:30 Urine Glucose (UA) NEGATIVE mg/dL (NEGATIVE) 10/31/18 13:30 Urine Ketones TRACE mg/dL (NEGATIVE) 10/31/18 13:30 Urine Blood TRACE (NEGATIVE) 10/31/18 13:30 Urine Nitrate NEGATIVE (NEGATIVE) 10/31/18 13:30 Urine Bilirubin NEGATIVE (NEGATIVE) 10/31/18 13:30 Urine Urobilinogen 0.2 E.U./dL (0.2 - 1.0) 10/31/18 13:30 Ur Leukocyte Esterase MODERATE (NEGATIVE) H 10/31/18 13:30 Urine RBC 2-5 /hpf (0-5) H 10/31/18 13:30 Urine WBC 10-25 /hpf (0-5) H 10/31/18 13:30 Ur Epithelial Cells FEW /lpf (FEW) 10/31/18 13:30 Urine Bacteria 2+ /hpf (NONE SEEN) H 10/31/18 13:30 Coarse Granular Casts 0-2 /lpf (NONE SEEN) H 10/31/18 13:30 Valproic Acid < 10.0 ug/mL (50.0-100.0) L 10/31/18 11:44 - Physical Exam Vitals and I&O: Vital Signs Temp 97.1 F 11/03/18 11:52 Pulse 70 11/03/18 11:52 Resp 18 11/03/18 11:52 BP 121/71 11/03/18 11:52 Pulse Ox 99 11/03/18 11:52 Intake & Output 11/02/18 11/03/18 11/03/18 18:59 06:59 18:59 Output Total 750 350 Balance -750 -350 Weight (lbs) 72.575 kg 72.303 kg Output: Urine 450 350 Stool 300 Other: # Bowel Movements 2 Weight Source Bedscale Bedscale Active Medications: Current Medications Acetaminophen (Tylenol) 650 mg PO Q4HR PRN PRN Reason: Pain Or Fever above 101 Stop: 12/30/18 16:43 Albuterol Sulfate (Albuterol 2.5mg/3ml Neb Ud) 2.5 mg HHN Q2HRT PRN PRN Reason: Shortness of Breath or Wheeze Stop: 12/30/18 16:43 Albuterol Sulfate (Albuterol 2.5mg/3ml Neb Ud) 2.5 mg HHN Q4H PRN PRN Reason: Respiratory Distress Stop: 01/01/19 07:59 Benztropine Mesylate (Cogentin) 1 mg GT BID [facility] Stop: 12/30/18 16:59 Last Admin: 11/03/18 09:02 Dose: 1 mg Calcium Carbonate (Calcium Carb) 600 mg GT BID [facility] Stop: 12/30/18 16:59 Last Admin: 11/03/18 09:02 Dose: 600 mg Carbamide Peroxide (Debrox Otic Drops) 5 drop EACH EAR BID [facility] Stop: 12/30/18 16:59 Last Admin: 11/03/18 09:42 Dose: 5 drop Chlorhexidine Gluconate (Peridex) 15 ml MM HS [facility] Stop: 12/31/18 20:59 Last Admin: 11/02/18 20:26 Dose: 15 ml Clonazepam (Klonopin) 1 mg GT BID [facility] Stop: 12/31/18 08:59 Last Admin: 11/03/18 09:01 Dose: 1 mg Escitalopram Oxalate (Lexapro) 20 mg GT DAILY [facility]; Protocol Stop: 12/31/18 08:59 Last Admin: 11/03/18 09:02 Dose: 20 mg Famotidine (Pepcid) 20 mg GT BID [facility] Stop: 01/01/19 08:59 Last Admin: 11/03/18 09:02 Dose: 20 mg Ferrous Sulfate (Iron) 325 mg PO TID [facility] Stop: 12/30/18 16:43 Last Admin: 11/03/18 09:01 Dose: 325 mg Finasteride (Proscar) 5 mg GT DAILY [facility]; Protocol Stop: 12/31/18 08:59 Last Admin: 11/03/18 09:01 Dose: 5 mg Fluticasone Propionate (Flonase) 2 spr NS DAILY [facility] Stop: 12/31/18 08:59 Last Admin: 11/03/18 09:41 Dose: 2 spr Folic Acid (Folate) 1 mg GT DAILY [facility] Stop: 12/31/18 08:59 Last Admin: 11/03/18 09:02 Dose: 1 mg Guaifenesin/Dextromethorphan (Robitussin Dm) 10 ml GT Q4H PRN PRN Reason: Cough Stop: 12/30/18 16:43 Haloperidol Lactate (Haldol) 2 mg GT BID [facility] Stop: 12/30/18 16:59 Last Admin: 11/03/18 09:39 Dose: 2 mg Sodium Chloride (Nacl 0.9%) 1,000 mls @ 70 mls/hr IV .[id number] [facility] Stop: 12/30/18 16:43 Last Admin: 11/02/18 20:08 Dose: 70 mls/hr Meropenem 500 mg/ Sodium (Chloride) 100 mls @ 100 mls/hr IV Q12H [facility] Stop: 01/02/19 12:51 Ibuprofen (Motrin) 600 mg GT Q6H PRN PRN Reason: BACK PAIN Stop: 12/30/18 16:43 Ipratropium [place] (Atrovent Neb 0.5mg/2.5ml) 0.5 mg HHN Q2HRT PRN PRN Reason: Shortness of Breath or Wheeze Stop: 12/30/18 16:43 Lactobacillus Rhamnosus (Culturelle 15b) 1 each GT BID [facility] Stop: 12/31/18 08:59 Last Admin: 11/03/18 09:02 Dose: 1 each Lactulose (Cephulac) 20 gm GT DAILY [facility] Stop: 12/31/18 08:59 Last Admin: 11/03/18 09:00 Dose: 20 gm Lamotrigine (Lamictal) 200 mg GT DAILY [facility]; Protocol Stop: 12/31/18 08:59 Last Admin: 11/03/18 09:01 Dose: 200 mg Lamotrigine (Lamictal) 350 mg GT HS [facility]; Protocol Stop: 12/30/18 20:59 Last Admin: 11/02/18 20:10 Dose: 350 mg Latanoprost (Xalatan 0.005% Oph Soln) 1 drop EACH EYE HS [facility] Stop: 12/30/18 20:59 Last Admin: 11/02/18 20:10 Dose: 1 drop Levetiracetam (Keppra) 1,000 mg PO BID [facility] Stop: 12/30/18 16:59 Last Admin: 11/03/18 09:01 Dose: 1,000 mg Levocarnitine (Carnitor) 660 mg GT TID [facility] Stop: 12/30/18 16:43 Last Admin: 11/03/18 09:40 Dose: 660 mg Levothyroxine Sodium (Synthroid) 0.125 mg GT DAILY [facility] Stop: 12/31/18 08:59 Last Admin: 11/03/18 09:02 Dose: 0.125 mg Loratadine (Claritin) 10 mg GT DAILY [facility] Stop: 12/31/18 08:59 Last Admin: 11/03/18 09:02 Dose: 10 mg Lorazepam (Ativan) 1 mg IV Q4HR PRN; Protocol PRN Reason: Seizure Stop: 12/30/18 16:43 Methotrexate (Methotrexate) 10 mg GT QTUE [facility]; Protocol Stop: 01/02/19 07:29 Last Admin: 11/03/18 09:00 Dose: 10 mg Miscellaneous (Brinzolamide/Brimonidine Tart [Simbrinza 1%-0.2% Eye Drops]) 1 drop EACH EYE BID [facility] Stop: 12/30/18 16:59 Last Admin: 11/02/18 17:52 Dose: Not Given Miscellaneous (Clobazam [Onfi]) 20 mg GT BID [facility] Stop: 12/30/18 16:59 Last Admin: 11/02/18 09:44 Dose: Not Given Miscellaneous (Ergocalciferol (Vitamin D2) [Ergocalciferol]) 1.5 ml GT DAILY [facility] Stop: 12/31/18 08:59 Last Admin: 11/02/18 09:18 Dose: Not Given Miscellaneous (Eslicarbazepine Acetate [Aptiom]) 800 mg PO QPM [facility] Stop: 12/30/18 16:59 Last Admin: 11/02/18 17:52 Dose: Not Given Patient Own Med-Onfi ((Clobazam) 20mg Tab) 1 GT BID@0800,1600 [facility] Stop: 01/02/19 15:59 Patient Own Med- Aptiom ( Eslicarbazepine) 800mg Tab 1 PO QPM@1600 [facility] Stop: 01/02/19 15:59 Patient Own Med- Simbrinza ( Brinzolamide/Brimonidine) Susp. 1 EACH EYE BID@ 0800,2000 [facility] Stop: 01/02/19 19:59 Petrolatum (Zinc Oxide) 1 appl TP QSHIFT PRN PRN Reason: skin irritation Stop: 01/01/19 07:59 Last Admin: 11/02/18 20:22 Dose: 1 appl Rifaximin (Xifaxan) 600 mg PO BID [facility] Stop: 12/31/18 08:59 Last Admin: 11/03/18 09:01 Dose: 600 mg Tamsulosin HCl (Flomax) 0.4 mg GT HS [facility] Stop: 12/30/18 20:59 Last Admin: 11/02/18 20:11 Dose: 0.4 mg Timolol Maleate (Timoptic 0.5% Ophth Soln) 1 drop EACH EYE BID [facility] Stop: 12/30/18 16:59 Last Admin: 11/03/18 09:42 Dose: 1 drop Tolnaftate (Tinactin 1% Cream) 1 appl TP DAILY PRN PRN Reason: abdominal rash Last Admin: 11/02/18 20:21 Dose: 1 appl General: weak, demented HEENT: NC/AT, PERRLA Neck: Supple, No JVD Lungs: CTAB Cardiovascular: RRR, Normal S1, Normal S2, without murmur Abdomen: soft, non-tender, non-distended, +GT, positive bowel sound Extremities: excoriation Neurological: no change - Procedures Procedures: Procedures Procedure Code Date BYPASS ILEUM TO CUTANEOUS, OPEN APPROACH [id number] 02/01/18 CHANGE FEEDING DEVICE IN UP INTEST TRACT, GRINDING MACHINE TENDER APPROACH [id number] 10/31/18 CHANGE GASTROSTOMY TUBE 07751 11/01/17 DRAINAGE OF SMALL INTESTINE, OPEN APPROACH [id number] 11/01/17 EXCISION OF SMALL INTESTINE, OPEN APPROACH [id number] 02/01/18 EXPLORATION OF ABDOMEN 35624 11/01/17 FREEING OF BOWEL ADHESION 12909 11/01/17 ILEOSTOMY/JEJUNOSTOMY 81725 09/23/17 INSERTION OF ENDOTRACHEAL AIRWAY INTO TRACHEA, VIA OPENING [id number] 09/23/17 INSERTION OF FEEDING DEVICE INTO STOMACH, OPEN APPROACH [id number] 09/23/17 INTRODUCTION OF NUTRITIONAL INTO CENTRAL VEIN, PERC APPROACH [id number] 02/01/18 PARTIAL REMOVAL OF COLON 35016 09/23/17 PLACE GASTROSTOMY TUBE 83326 09/23/17 RELEASE PERITONEUM, OPEN APPROACH [id number] 02/01/18 RELEASE SMALL INTESTINE, OPEN APPROACH [id number] 11/01/17 REPAIR SMALL INTESTINE, OPEN APPROACH [id number] 11/01/17 RESECTION OF LARGE INTESTINE, OPEN APPROACH [id number] 09/23/17 RESPIRATORY VENTILATION, LESS THAN 24 CONSECUTIVE HOURS [id number] 09/23/17 SUTURE SMALL INTESTINE 86082 11/01/17 Internal Medicine Assmt/Plan - Assessment Assessment: - Assessment Assessment: Hyponatremia Acute UTI Lethargic with Altered mental status 2/2 seroquel Seizure disorder Cerebral Palsy - Plan Plan: - Plan Plan: continue ivf NS hold seroquel for now, til patient is much more awake and alert am labs send urine for culture continue iv rocephin -- changed to merrem continue current plan of care Nutritional Asmnt/Malnutr-PDOC - Dietary Evaluation Malnutrition Findings (Please click <Entered> for more info): Nutritional Asmnt/Malnutrition Start: 11/02/18 17: 57 Text: Status: Complete Freq: Protocol: Document 11/02/18 17:57 ELGIN (Rec: 11/02/18 18:17 ELGIN [email or web address]) Nutritional Asmnt/Malnutrition Patient General Information Nutritional Screening High Risk Consult Diagnosis hyponatremia, ALOC Pertinent Medical Hx/Surgical Hx PUD/GERD, seizrue, arthritis, dementia, PEG/Gtube, colostomy Subjective Information Pt seem sleeping in bed at time of visit. Spoke with BALA Castro, verified pt in on oral diet and Gtube both. Asked RN to put in tube feeding order. RN stated it is Jevity 1.2 at 90ml/hr x 10hr. Current Diet Order/ Nutrition Support pureed, nectar thick liquid. Pertinent Medications pepcid, iron, folate, culturelle, synthroid, zinc, nacl 0.9% Pertinent Labs 11/02 reviewed Nutritional Hx/Data Height 1.7 m Height (Calculated Centimeters) 170.2 Current Weight (lbs) 72.575 kg Weight (Calculated Kilograms) 72.6 Weight (Calculated Grams) 73704.8 [place] Body Weight 148 Body Mass Index (BMI) 25.0 Weight Status Approriate GI Symptoms GI Symptoms None Last BM none Difficult in: None Skin Integrity/Comment: intact Current %PO Good (75-100%) Estimated Nutritional Goals BEE in Kcals: Using Current wt Calories/Kcals/Kg 20-25 Kcals Calculated 5801-5986 Protein: Using Current wt Protein g/k.8 Protein Calculated 60 Fluid: ml 1500-1875ml (1ml/kcal) Nutritional Problem No current Nutrition Prob Problem N/A Malnutrition Alert Is there a minimum of two criteria No selected? Query Text:Check all the applicable criteria. A minimum of two criteria are recommended for diagnosis of either severe or non-severe malnutrition. Malnutrition Related to Morbid Obesity Malnutrition related to morbid obesity No Intervention/Recommendation Comments 1. Continue with pureed nectar thick liquids diet as ordered . Current TF regimen provides 1080kcal, 50g protein and 726ml free water. 2. Monitor PO intake, wt, labs and skin integrity 3. F/U as moderate risk in 3-5 days Expected Outcomes/Goals Expected Outcomes/Goals 1. PO intake to meet at least 75% of nutritional needs. 2. Wt stability, skin to remain intact, labs to approach WNL.
[2018-11-03] MEDS: Meropenem 500 MG in Sodium Chloride 0.9% 100 ML IV SCH ×2 (14:49→20:54)
[2018-11-03] MEDS ORDERED: APTIOM 800 MG PO SCH (16:00)
[2018-11-03] MEDS: SIMBRINZA EACH EYE SCH (20:43)
[2018-11-03] MEDS: Chlorhexidine Gluconate 0.12% 15mL Mouthwash MM SCH (20:43)
--- NOTE | 2018-11-03 21:10 | Consultation ---
DATE OF CONSULTATION: 11/03/2018 PSYCHIATRIC CONSULTATION PHYSICIAN REQUESTING CONSULTATION: Zack Rick D.O. REASON FOR CONSULTATION: Lethargy and the patient being on psych medications. HISTORY OF PRESENT ILLNESS: This patient is a 63-year-old admitted from [facility]. The patient is reported to have been lethargic and there has been a recent change in the Seroquel and I tried to interview the patient, but the patient is not providing much of information. The patient has been diagnosed to have mental retardation, cerebral palsy, and seizures. At this time, the patient is not able to provide much of any information. Chart is reviewed. Staff was spoken to. Review of the chart indicated that the patient, as per the information, reported to have been treated with Seroquel, but currently the patient has been on haloperidol 2 mg via the G-tube. The patient is also reported to have been receiving the 20 mg of the Lexapro and the patient is reported to have been tolerating the medications. No behavioral problems are noted. MENTAL STATUS EXAMINATION: The patient is a 63-year-old, looking older than his stated age, superficially cooperative. Eye contact is poor. The patient is not able to provide much of any information. The patient is alert and awake. Attention span and concentration are noted to be poor. The patient's intelligence seems to be below average level. The patient is not able to provide much of any information at this time. PLAN: To closely monitor the patient and continue the current medications and follow. JOB# [id number]
--- NOTE | 2018-11-04 08:49 | GI Progress Note ---
Subjective - Review of Systems Service Date: 11/03/18 Events since last encounter: no events Objective - Results Result Diagrams: 11/02/18 04:45 11/02/18 04:45 Recent Labs: Laboratory Last Values WBC 9.1 Th/cmm (4.8-10.8) 11/02/18 04:45 RBC 4.31 Mil/cmm (4.30-5.70) 11/02/18 04:45 Hgb 13.4 gm/dL (12-16) 11/02/18 04:45 Hct 40.5 % (41.0-60) L 11/02/18 04:45 MCV 93.9 fl (80-99) 11/02/18 04:45 MCH 31.1 pg (26.0-30.0) H 11/02/18 04:45 MCHC Differential 33.1 pg (28.0-36.0) 11/02/18 04:45 RDW 12.5 % (11.5-20.0) 11/02/18 04:45 Plt Count 240 Th/cmm (150-400) 11/02/18 04:45 MPV 8.6 fl 11/02/18 04:45 Add Manual Diff YES 11/02/18 04:45 Neutrophils % 73.7 % (40.0-80.0) 10/31/18 11:44 Band Neutrophils % 0 % (0-10) 11/02/18 04:45 Lymphocytes % 15.6 % (20.0-50.0) L 10/31/18 11:44 Monocytes % 8.4 % (2.0-10.0) 10/31/18 11:44 Eosinophils % 2.3 % (0.0-5.0) 10/31/18 11:44 Basophils % 0.0 % (0.0-2.0) 10/31/18 11:44 Neutrophils (Manual) 69 % (40-80) 11/02/18 04:45 Lymphocytes 12 % (20-50) L 11/02/18 04:45 Monocytes 15 % (2-10) H 11/02/18 04:45 Eosinophils 4 % (0-5) 11/02/18 04:45 Basophils 0 % (0-3) 11/02/18 04:45 Platelet Estimate ADEQUATE (NORMAL) 11/01/18 05:15 PT 10.5 SECONDS (9.5-11.5) 10/31/18 11:44 INR 1.01 (0.5-1.4) 10/31/18 11:44 PTT (Actin FS) 25.0 SECONDS (26.0-38.0) L 10/31/18 11:44 Sodium 138 mEq/L (136-145) 11/02/18 04:45 Potassium 3.7 mEq/L (3.5-5.1) 11/02/18 04:45 Chloride 103 mEq/L (98-107) 11/02/18 04:45 Carbon Dioxide 23.4 mEq/L (21.0-31.0) 11/02/18 04:45 Anion Gap 15.3 (7.0-16.0) 11/02/18 04:45 BUN 9 mg/dL (7-25) 11/02/18 04:45 Creatinine 0.7 mg/dL (0.7-1.3) 11/02/18 04:45 Est GFR ( Amer) > 60.0 ml/min (>90) 11/02/18 04:45 Est GFR (Non-Af Amer) > 60.0 ml/min 11/02/18 04:45 BUN/Creatinine Ratio 12.9 11/02/18 04:45 Glucose 102 mg/dL (70-105) 11/02/18 04:45 POC Glucose 70 MG/DL (70 - 105) 10/31/18 16:28 Whole Bld Lactic Acid 0.91 mmol/L (0.60-1.99) 10/31/18 11:44 Calcium 9.5 mg/dL (8.6-10.3) 11/02/18 04:45 Total Bilirubin 0.4 mg/dL (0.3-1.0) 10/31/18 11:44 AST 18 U/L (13-39) 10/31/18 11:44 ALT 14 U/L (7-52) 10/31/18 11:44 Alkaline Phosphatase 157 U/L (34-104) H 10/31/18 11:44 Troponin I < 0.01 ng/mL (0.01-0.05) L 10/31/18 11:44 Total Protein 7.2 gm/dL (6.0-8.3) 10/31/18 11:44 Albumin 4.0 gm/dL (4.2-5.5) L 10/31/18 11:44 Globulin 3.2 gm/dL 10/31/18 11:44 Albumin/Globulin Ratio 1.3 (1.0-1.8) 10/31/18 11:44 Triglycerides 117 mg/dL (<150) 10/31/18 11:44 Cholesterol 132 mg/dL (<200) 10/31/18 11:44 LDL Cholesterol Direct 68 mg/dL (75-193) L 10/31/18 11:44 HDL Cholesterol 44 mg/dL (23-92) 10/31/18 11:44 TSH 2.06 uIU/ml (0.34-5.60) 10/31/18 11:44 Urine Source [place] 10/31/18 13:30 Urine Color YELLOW 10/31/18 13:30 Urine Clarity CLEAR (CLEAR) 10/31/18 13:30 Urine pH 6.5 (4.6 - 8.0) 10/31/18 13:30 Ur Specific [place] 1.015 (1.005-1.030) 10/31/18 13:30 Urine Protein NEGATIVE mg/dL (NEGATIVE) 10/31/18 13:30 Urine Glucose (UA) NEGATIVE mg/dL (NEGATIVE) 10/31/18 13:30 Urine Ketones TRACE mg/dL (NEGATIVE) 10/31/18 13:30 Urine Blood TRACE (NEGATIVE) 10/31/18 13:30 Urine Nitrate NEGATIVE (NEGATIVE) 10/31/18 13:30 Urine Bilirubin NEGATIVE (NEGATIVE) 10/31/18 13:30 Urine Urobilinogen 0.2 E.U./dL (0.2 - 1.0) 10/31/18 13:30 Ur Leukocyte Esterase MODERATE (NEGATIVE) H 10/31/18 13:30 Urine RBC 2-5 /hpf (0-5) H 10/31/18 13:30 Urine WBC 10-25 /hpf (0-5) H 10/31/18 13:30 Ur Epithelial Cells FEW /lpf (FEW) 10/31/18 13:30 Urine Bacteria 2+ /hpf (NONE SEEN) H 10/31/18 13:30 Coarse Granular Casts 0-2 /lpf (NONE SEEN) H 10/31/18 13:30 Valproic Acid < 10.0 ug/mL (50.0-100.0) L 10/31/18 11:44 Levetiracetam 33.3 ug/mL (10.0-40.0) 10/31/18 11:44 - Physical Exam Vitals and I&O: Vital Signs Temp 97.3 F 11/04/18 08:00 Pulse 81 11/04/18 08:00 Resp 18 11/04/18 08:00 BP 126/84 11/04/18 08:00 Pulse Ox 98 11/04/18 08:00 Intake & Output 11/03/18 11/04/18 11/04/18 18:59 06:59 18:59 Intake Total 820 Output Total 1100 1260 Balance -280 -1260 Weight (lbs) 72.303 kg 72.121 kg Intake: Intake, IV Amount 100 Meropenem 500 mg In 100 Sodium Chloride 0.9% 100 ml @ 100 mls/hr IV Q12HR@ 0900,2100 [facility] Rx#: [id number] Oral 720 Output: Urine 500 410 Stool 600 850 Other: Weight Source Bedscale Bedscale Active Medications: Current Medications Acetaminophen (Tylenol) 650 mg PO Q4HR PRN PRN Reason: Pain Or Fever above 101 Stop: 12/30/18 16:43 Albuterol Sulfate (Albuterol 2.5mg/3ml Neb Ud) 2.5 mg HHN Q2HRT PRN PRN Reason: Shortness of Breath or Wheeze Stop: 12/30/18 16:43 Albuterol Sulfate (Albuterol 2.5mg/3ml Neb Ud) 2.5 mg HHN Q4H PRN PRN Reason: Respiratory Distress Stop: 01/01/19 07:59 Benztropine Mesylate (Cogentin) 1 mg GT BID [facility] Stop: 12/30/18 16:59 Last Admin: 11/03/18 17:21 Dose: 1 mg Calcium Carbonate (Calcium Carb) 600 mg GT BID [facility] Stop: 12/30/18 16:59 Last Admin: 11/03/18 17:21 Dose: 600 mg Carbamide Peroxide (Debrox Otic Drops) 5 drop EACH EAR BID [facility] Stop: 12/30/18 16:59 Last Admin: 11/03/18 17:20 Dose: 5 drop Chlorhexidine Gluconate (Peridex) 15 ml MM HS [facility] Stop: 12/31/18 20:59 Last Admin: 11/03/18 20:43 Dose: 15 ml Clonazepam (Klonopin) 1 mg GT BID [facility] Stop: 12/31/18 08:59 Last Admin: 11/03/18 17:20 Dose: 1 mg Escitalopram Oxalate (Lexapro) 20 mg GT DAILY [facility]; Protocol Stop: 12/31/18 08:59 Last Admin: 11/03/18 09:02 Dose: 20 mg Famotidine (Pepcid) 20 mg GT BID [facility] Stop: 01/01/19 08:59 Last Admin: 11/03/18 17:21 Dose: 20 mg Ferrous Sulfate (Iron) 325 mg PO TID [facility] Stop: 12/30/18 16:43 Last Admin: 11/03/18 20:42 Dose: 325 mg Finasteride (Proscar) 5 mg GT DAILY [facility]; Protocol Stop: 12/31/18 08:59 Last Admin: 11/03/18 09:01 Dose: 5 mg Fluticasone Propionate (Flonase) 2 spr NS DAILY [facility] Stop: 12/31/18 08:59 Last Admin: 11/03/18 09:41 Dose: 2 spr Folic Acid (Folate) 1 mg GT DAILY [facility] Stop: 12/31/18 08:59 Last Admin: 11/03/18 09:02 Dose: 1 mg Guaifenesin/Dextromethorphan (Robitussin Dm) 10 ml GT Q4H PRN PRN Reason: Cough Stop: 12/30/18 16:43 Haloperidol Lactate (Haldol) 2 mg GT BID [facility] Stop: 12/30/18 16:59 Last Admin: 11/03/18 17:21 Dose: 2 mg Sodium Chloride (Nacl 0.9%) 1,000 mls @ 70 mls/hr IV .[id number] [facility] Stop: 12/30/18 16:43 Last Admin: 11/02/18 20:08 Dose: 70 mls/hr Meropenem 500 mg/ Sodium (Chloride) 100 mls @ 100 mls/hr IV Q12HR@0900,2100 [facility] Stop: 01/02/19 12:59 Last Admin: 11/03/18 20:54 Dose: 100 mls/hr Ibuprofen (Motrin) 600 mg GT Q6H PRN PRN Reason: BACK PAIN Stop: 12/30/18 16:43 Ipratropium [place] (Atrovent Neb 0.5mg/2.5ml) 0.5 mg HHN Q2HRT PRN PRN Reason: Shortness of Breath or Wheeze Stop: 12/30/18 16:43 Lactobacillus Rhamnosus (Culturelle 15b) 1 each GT BID [facility] Stop: 12/31/18 08:59 Last Admin: 11/03/18 17:20 Dose: 1 each Lactulose (Cephulac) 20 gm GT DAILY [facility] Stop: 12/31/18 08:59 Last Admin: 11/03/18 09:00 Dose: 20 gm Lamotrigine (Lamictal) 200 mg GT DAILY [facility]; Protocol Stop: 12/31/18 08:59 Last Admin: 11/03/18 09:01 Dose: 200 mg Lamotrigine (Lamictal) 350 mg GT HS [facility]; Protocol Stop: 12/30/18 20:59 Last Admin: 11/03/18 20:42 Dose: 350 mg Latanoprost (Xalatan 0.005% Ophth Soln) 1 drop EACH EYE HS [facility] Stop: 12/30/18 20:59 Last Admin: 11/03/18 20:44 Dose: 1 drop Levetiracetam (Keppra) 1,000 mg PO BID [facility] Stop: 12/30/18 16:59 Last Admin: 11/03/18 17:20 Dose: 1,000 mg Levocarnitine (Carnitor) 660 mg GT TID [facility] Stop: 12/30/18 16:43 Last Admin: 11/03/18 20:42 Dose: 660 mg Levothyroxine Sodium (Synthroid) 0.125 mg GT DAILY [facility] Stop: 12/31/18 08:59 Last Admin: 11/03/18 09:02 Dose: 0.125 mg Loratadine (Claritin) 10 mg GT DAILY [facility] Stop: 12/31/18 08:59 Last Admin: 11/03/18 09:02 Dose: 10 mg Lorazepam (Ativan) 1 mg IV Q4HR PRN; Protocol PRN Reason: Seizure Stop: 12/30/18 16:43 Methotrexate (Methotrexate) 10 mg GT QTUE [facility]; Protocol Stop: 01/02/19 07:29 Last Admin: 11/03/18 09:00 Dose: 10 mg Miscellaneous (Ergocalciferol (Vitamin D2) [Ergocalciferol]) 1.5 ml GT DAILY [facility] Stop: 12/31/18 08:59 Last Admin: 11/02/18 09:18 Dose: Not Given Patient Own Med-Onfi ((Clobazam) 20mg Tab) 1 GT BID@0800,1600 [facility] Stop: 01/02/19 15:59 Last Admin: 11/03/18 17:20 Dose: 1 Patient Own Med- Aptiom ( Eslicarbazepine) 800mg Tab 1 PO QPM@1600 [facility] Stop: 01/02/19 15:59 Last Admin: 11/03/18 17:20 Dose: 1 Patient Own Med- Simbrinza ( Brinzolamide/Brimonidine) Susp. 1 EACH EYE BID@ 0800,2000 [facility] Stop: 01/02/19 19:59 Last Admin: 11/03/18 20:43 Dose: 1 Petrolatum (Zinc Oxide) 1 appl TP QSHIFT PRN PRN Reason: skin irritation Stop: 01/01/19 07:59 Last Admin: 11/02/18 20:22 Dose: 1 appl Rifaximin (Xifaxan) 600 mg PO BID [facility] Stop: 12/31/18 08:59 Last Admin: 11/03/18 17:21 Dose: 600 mg Tamsulosin HCl (Flomax) 0.4 mg GT HS [facility] Stop: 12/30/18 20:59 Last Admin: 11/03/18 20:42 Dose: 0.4 mg Timolol Maleate (Timoptic 0.5% Oph Soln) 1 drop EACH EYE BID [facility] Stop: 12/30/18 16:59 Last Admin: 11/03/18 17:20 Dose: 1 drop Tolnaftate (Tinactin 1% Cream) 1 appl TP DAILY PRN PRN Reason: abdominal rash Last Admin: 11/02/18 20:21 Dose: 1 appl General: Cooperative Neck: Supple Cardiovascular: Regular rate, Normal S1, Normal S2 Lungs: Clear to auscultation Abdomen: Bowel sounds - Procedures Procedures: Procedures Procedure Code Date BYPASS ILEUM TO CUTANEOUS, OPEN APPROACH [id number] 02/01/18 CHANGE FEEDING DEVICE IN UP INTEST TRACT, REGULATORY CONSULTANT APPROACH [id number] 10/31/18 CHANGE GASTROSTOMY TUBE 88468 11/01/17 DRAINAGE OF SMALL INTESTINE, OPEN APPROACH [id number] 11/01/17 EXCISION OF SMALL INTESTINE, OPEN APPROACH [id number] 02/01/18 EXPLORATION OF ABDOMEN 07003 11/01/17 FREEING OF BOWEL ADHESION 68410 11/01/17 ILEOSTOMY/JEJUNOSTOMY 17961 09/23/17 INSERTION OF ENDOTRACHEAL AIRWAY INTO TRACHEA, VIA OPENING [id number] 09/23/17 INSERTION OF FEEDING DEVICE INTO STOMACH, OPEN APPROACH [id number] 09/23/17 INTRODUCTION OF NUTRITIONAL INTO CENTRAL VEIN, PERC APPROACH [id number] 02/01/18 PARTIAL REMOVAL OF COLON 36776 09/23/17 PLACE GASTROSTOMY TUBE 99714 09/23/17 RELEASE PERITONEUM, OPEN APPROACH [id number] 02/01/18 RELEASE SMALL INTESTINE, OPEN APPROACH [id number] 11/01/17 REPAIR SMALL INTESTINE, OPEN APPROACH [id number] 11/01/17 RESECTION OF LARGE INTESTINE, OPEN APPROACH [id number] 09/23/17 RESPIRATORY VENTILATION, LESS THAN 24 CONSECUTIVE HOURS [id number] 09/23/17 SUTURE SMALL INTESTINE 70567 11/01/17 Assessment/Plan - Assessment Assessment: 1. G tube malfunction 2. Dysphagia -continue with G tube feedings prn -supportive care and management
[2018-11-04] MEDS: Meropenem 500 MG in Sodium Chloride 0.9% 100 ML IV SCH (11:16)
[2018-11-04] MEDS: Lactulose 10 Gm/15 mL 30mL UDC GT SCH (11:16)
[2018-11-04] MEDS: Haloperidol Lactate Oral sol. 2 mg/mL Udc GT SCH (11:17)
[2018-11-04] MEDS: Lactobacillus Rhamnosus GG 15 Billion CFU CAP.SPRINK GT SCH (11:17)
[2018-11-04] MEDS: Levothyroxine 0.125 Mg Tab GT SCH (11:18)
[2018-11-04] MEDS: Ferrous Sulfate 325 MG TAB PO SCH (11:18)
[2018-11-04] MEDS: Benztropine 1 MG TAB GT SCH (11:18)
[2018-11-04] MEDS: Carbamide Peroxide Otic Soln 15 mL Bottle EACH EAR SCH (11:20)
[2018-11-04] MEDS: SIMBRINZA EACH EYE SCH (11:20)
[2018-11-04] MEDS: Fluticasone Propionate Nasal 1 SPR SPR NS SCH (11:25)
--- NOTE | 2018-11-04 15:13 | Discharge Summary ---
DATE OF DISCHARGE: 11/04/2018 CHIEF COMPLAINT: Generalized weakness. FINAL DIAGNOSES: Urinary tract infection, electrolyte abnormalities, generalized weakness, seizure disorder, cerebral palsy. HISTORY OF PRESENT ILLNESS: This is an unfortunate 63-year-old male with multiple medical problems including cerebral palsy, brought in from his home facility with generalized weakness. The patient was noted to be hyponatremic and admitted for further management. PHYSICAL EXAMINATION: VITAL SIGNS: Blood pressure 126/80, respiration 18, pulse 81, temperature 97.3. GENERAL: Elderly male, appears stated age, chronically ill. NECK: Supple. No mass. LUNGS: Equal breath sounds with a few rhonchi. HEART: Regular rate and rhythm without appreciable murmur. ABDOMEN: Soft, globular. Positive ileostomy. EXTREMITIES: Positive contractures, but deformity. NEUROLOGIC: Limited. HOSPITAL COURSE: The patient was admitted to telemetry, continue IV hydration, IV antibiotic. The patient antibiotics switched to Merrem and also sensitive to Cipro and Levaquin to be changed to p.o. The patient cleared for discharge with a nursing facility. The patient to continue with his medication. CONDITION ON DISCHARGE: Fair. OVERALL PROGNOSIS: Poor. DISCHARGE INSTRUCTIONS: The patient to continue with current medications. JOB# [id number]
--- NOTE | 2018-11-04 17:14 | GI Progress Note ---
Subjective - Review of Systems Service Date: 11/04/18 Events since last encounter: no events Subjective: No complaint Objective - Results Result Diagrams: 11/02/18 04:45 11/02/18 04:45 Recent Labs: Laboratory Last Values WBC 9.1 Th/cmm (4.8-10.8) 11/02/18 04:45 RBC 4.31 Mil/cmm (4.30-5.70) 11/02/18 04:45 Hgb 13.4 gm/dL (12-16) 11/02/18 04:45 Hct 40.5 % (41.0-60) L 11/02/18 04:45 MCV 93.9 fl (80-99) 11/02/18 04:45 MCH 31.1 pg (26.0-30.0) H 11/02/18 04:45 MCHC Differential 33.1 pg (28.0-36.0) 11/02/18 04:45 RDW 12.5 % (11.5-20.0) 11/02/18 04:45 Plt Count 240 Th/cmm (150-400) 11/02/18 04:45 MPV 8.6 fl 11/02/18 04:45 Add Manual Diff YES 11/02/18 04:45 Neutrophils % 73.7 % (40.0-80.0) 10/31/18 11:44 Band Neutrophils % 0 % (0-10) 11/02/18 04:45 Lymphocytes % 15.6 % (20.0-50.0) L 10/31/18 11:44 Monocytes % 8.4 % (2.0-10.0) 10/31/18 11:44 Eosinophils % 2.3 % (0.0-5.0) 10/31/18 11:44 Basophils % 0.0 % (0.0-2.0) 10/31/18 11:44 Neutrophils (Manual) 69 % (40-80) 11/02/18 04:45 Lymphocytes 12 % (20-50) L 11/02/18 04:45 Monocytes 15 % (2-10) H 11/02/18 04:45 Eosinophils 4 % (0-5) 11/02/18 04:45 Basophils 0 % (0-3) 11/02/18 04:45 Platelet Estimate ADEQUATE (NORMAL) 11/01/18 05:15 PT 10.5 SECONDS (9.5-11.5) 10/31/18 11:44 INR 1.01 (0.5-1.4) 10/31/18 11:44 PTT (Actin FS) 25.0 SECONDS (26.0-38.0) L 10/31/18 11:44 Sodium 138 mEq/L (136-145) 11/02/18 04:45 Potassium 3.7 mEq/L (3.5-5.1) 11/02/18 04:45 Chloride 103 mEq/L (98-107) 11/02/18 04:45 Carbon Dioxide 23.4 mEq/L (21.0-31.0) 11/02/18 04:45 Anion Gap 15.3 (7.0-16.0) 11/02/18 04:45 BUN 9 mg/dL (7-25) 11/02/18 04:45 Creatinine 0.7 mg/dL (0.7-1.3) 11/02/18 04:45 Est GFR ( Amer) > 60.0 ml/min (>90) 11/02/18 04:45 Est GFR (Non-Af Amer) > 60.0 ml/min 11/02/18 04:45 BUN/Creatinine Ratio 12.9 11/02/18 04:45 Glucose 102 mg/dL (70-105) 11/02/18 04:45 POC Glucose 70 MG/DL (70 - 105) 10/31/18 16:28 Whole Bld Lactic Acid 0.91 mmol/L (0.60-1.99) 10/31/18 11:44 Calcium 9.5 mg/dL (8.6-10.3) 11/02/18 04:45 Total Bilirubin 0.4 mg/dL (0.3-1.0) 10/31/18 11:44 AST 18 U/L (13-39) 10/31/18 11:44 ALT 14 U/L (7-52) 10/31/18 11:44 Alkaline Phosphatase 157 U/L (34-104) H 10/31/18 11:44 Troponin I < 0.01 ng/mL (0.01-0.05) L 10/31/18 11:44 Total Protein 7.2 gm/dL (6.0-8.3) 10/31/18 11:44 Albumin 4.0 gm/dL (4.2-5.5) L 10/31/18 11:44 Globulin 3.2 gm/dL 10/31/18 11:44 Albumin/Globulin Ratio 1.3 (1.0-1.8) 10/31/18 11:44 Triglycerides 117 mg/dL (<150) 10/31/18 11:44 Cholesterol 132 mg/dL (<200) 10/31/18 11:44 LDL Cholesterol Direct 68 mg/dL (75-193) L 10/31/18 11:44 HDL Cholesterol 44 mg/dL (23-92) 10/31/18 11:44 TSH 2.06 uIU/ml (0.34-5.60) 10/31/18 11:44 Urine Source [place] 10/31/18 13:30 Urine Color YELLOW 10/31/18 13:30 Urine Clarity CLEAR (CLEAR) 10/31/18 13:30 Urine pH 6.5 (4.6 - 8.0) 10/31/18 13:30 Ur Specific [place] 1.015 (1.005-1.030) 10/31/18 13:30 Urine Protein NEGATIVE mg/dL (NEGATIVE) 10/31/18 13:30 Urine Glucose (UA) NEGATIVE mg/dL (NEGATIVE) 10/31/18 13:30 Urine Ketones TRACE mg/dL (NEGATIVE) 10/31/18 13:30 Urine Blood TRACE (NEGATIVE) 10/31/18 13:30 Urine Nitrate NEGATIVE (NEGATIVE) 10/31/18 13:30 Urine Bilirubin NEGATIVE (NEGATIVE) 10/31/18 13:30 Urine Urobilinogen 0.2 E.U./dL (0.2 - 1.0) 10/31/18 13:30 Ur Leukocyte Esterase MODERATE (NEGATIVE) H 10/31/18 13:30 Urine RBC 2-5 /hpf (0-5) H 10/31/18 13:30 Urine WBC 10-25 /hpf (0-5) H 10/31/18 13:30 Ur Epithelial Cells FEW /lpf (FEW) 10/31/18 13:30 Urine Bacteria 2+ /hpf (NONE SEEN) H 10/31/18 13:30 Coarse Granular Casts 0-2 /lpf (NONE SEEN) H 10/31/18 13:30 Valproic Acid < 10.0 ug/mL (50.0-100.0) L 10/31/18 11:44 Levetiracetam 33.3 ug/mL (10.0-40.0) 10/31/18 11:44 - Physical Exam Vitals and I&O: Vital Signs Temp 97.4 F 11/04/18 12:51 Pulse 84 11/04/18 12:51 Resp 18 11/04/18 12:51 BP 129/89 11/04/18 12:51 Pulse Ox 97 11/04/18 12:51 Intake & Output 11/03/18 11/04/18 11/04/18 18:59 06:59 18:59 Intake Total 820 100 Output Total 1100 1260 Balance -280 -1160 Weight (lbs) 72.303 kg 72.121 kg Intake: Intake, IV Amount 100 100 Meropenem 500 mg In 100 100 Sodium Chloride 0.9% 100 ml @ 100 mls/hr IV Q12HR@ 0900,2100 [facility] Rx#: [id number] Oral 720 Output: Urine 500 410 Stool 600 850 Other: Weight Source Bedscale Bedscale General: Cooperative Neck: Supple Cardiovascular: Regular rate, Normal S1, Normal S2 Lungs: Clear to auscultation Abdomen: Bowel sounds, Other (G tube) - Procedures Procedures: Procedures Procedure Code Date BYPASS ILEUM TO CUTANEOUS, OPEN APPROACH [id number] 02/01/18 CHANGE FEEDING DEVICE IN UP INTEST TRACT, IGNITION MECHANIC APPROACH [id number] 10/31/18 CHANGE GASTROSTOMY TUBE 50138 11/01/17 DRAINAGE OF SMALL INTESTINE, OPEN APPROACH [id number] 11/01/17 EXCISION OF SMALL INTESTINE, OPEN APPROACH [id number] 02/01/18 EXPLORATION OF ABDOMEN 42508 11/01/17 FREEING OF BOWEL ADHESION 90058 11/01/17 ILEOSTOMY/JEJUNOSTOMY 46238 09/23/17 INSERTION OF ENDOTRACHEAL AIRWAY INTO TRACHEA, VIA OPENING [id number] 09/23/17 INSERTION OF FEEDING DEVICE INTO STOMACH, OPEN APPROACH [id number] 09/23/17 INTRODUCTION OF NUTRITIONAL INTO CENTRAL VEIN, PERC APPROACH [id number] 02/01/18 PARTIAL REMOVAL OF COLON 88146 09/23/17 PLACE GASTROSTOMY TUBE 14722 09/23/17 RELEASE PERITONEUM, OPEN APPROACH [id number] 02/01/18 RELEASE SMALL INTESTINE, OPEN APPROACH [id number] 11/01/17 REPAIR SMALL INTESTINE, OPEN APPROACH [id number] 11/01/17 RESECTION OF LARGE INTESTINE, OPEN APPROACH [id number] 09/23/17 RESPIRATORY VENTILATION, LESS THAN 24 CONSECUTIVE HOURS [id number] 09/23/17 SUTURE SMALL INTESTINE 96638 11/01/17 Assessment/Plan - Assessment Assessment: Dysphagia - Plan Plan: 1. G tube malfunction 2. Dysphagia S/P change -continue with G tube feedings prn -supportive care and management
== END 2018-11-04 15:09 | disposition home or self-care (01) | DRG 394 ==
LOC: ER 11:12 → TELE 13:58
PROVIDERS: ADMIT Internal Medicine; ATTEND Internal Medicine
PROC: 0D20XUZ Change Feeding Device in Upper Intestinal Tract, External Approach (ICD-10-PCS; principal; 2018-11-01)
DX: K94.23 Gastrostomy malfunction (principal); E87.1 Hypo-osmolality and hyponatremia; N39.0 Urinary tract infection, site not specified; G40.909 Epilepsy, unspecified, not intractable, without status epilepticus; G80.9 Cerebral palsy, unspecified; T43.595A Adverse effect of other antipsychotics and neuroleptics, initial encounter; K21.9 Gastro-esophageal reflux disease without esophagitis; M19.90 Unspecified osteoarthritis, unspecified site; F03.90 Unspecified dementia, unspecified severity, without behavioral disturbance, psychotic disturbance, mood disturbance, and anxiety; E86.0 Dehydration; R13.10 Dysphagia, unspecified; R41.82 Altered mental status, unspecified; Y92.89 Other specified places as the place of occurrence of the external cause; Y83.3 Surgical operation with formation of external stoma as the cause of abnormal reaction of the patient, or of later complication, without mention of misadventure at the time of the procedure; Z90.49 Acquired absence of other specified parts of digestive tract
CPT/HCPCS: 36415-UA; 71045-TC; 80048-TC; 80053-TC; 80061-TC; 80164-TC; 80299-90; 81001-TC; 82948-90; 83605; 84443-TC; 84484-TC; 85007-TC; 85025-TC; 85610-TC; 85730-TC; 87086-90; 93005; 94760; J0696; J2185; J7030; J8610; Z7610